=== PATIENT | female | born 1945 | race Caucasian/White ===

== ENCOUNTER 2017-02-17 09:53 | Emergency (ER) | payer OTHER ==
[~2017-02-17] VITALS: Ht 157.5 cm; Wt 72.1 kg
[~2017-02-17 09:53] MED LIST: ACET-1256 PO; ALBU1AER9 INH; ASPCH81X PO; ATOR10TA82 PO; CHOL2000 PO; GLIP-172 PO; LISI-461 PO; LORA-741 PO; METO-217 PO; PRLSR20 PO; SPIR25TA89 PO
[2017-02-17 10:01] VITALS: TEMP 36.4; Ht 157.5 cm; Wt 72.1 kg
[2017-02-17 10:08] VITALS: O2SAT 95
[2017-02-17] MEDS ORDERED: ONDANSETRON INJ 2 MG/ML 2 ML VIAL ONE (10:26)
[2017-02-17 10:45] LABS: BASO % 0.4 %; BASO ABS # 0.03 K/uL (0-0.2); COMPLETE YES; EOS % 0.8 %; HEMATOCRIT 41.1 % (37-47); IG% 0.2 %; LYMPH % 26.4 %; MEAN CELL VOLUME 102.2 fL (80-100); MEAN CORPUSCULAR HEMOGLOBIN 34.6 pg (25-34); MEAN CORPUSCULAR HGB CONC 33.8 g/dl (32-36); MEAN PLATELET VOLUME 11.6 fL (7.4-10.4); MONO % 9.6 %; NEUT % 62.6 %; PLATELET COUNT 228 K/uL (130-400); RED BLOOD COUNT 4.02 M/uL (4.2-5.4); WHITE BLOOD COUNT 8.34 K/uL (4.8-10.8)
[2017-02-17 11:02] LABS: BUN/CREATININE RATIO 14.7 (10-20); CALCIUM 9.5 mg/dl (8.5-10.1); CREATININE 1.6 mg/dl (0.60-1.20); POTASSIUM 4.2 mmol/L (3.5-5.1)
[2017-02-17 11:21] LABS: ALB/GLOB RATIO 1.1 (0.9-2)
--- NOTE | 2017-02-17 11:25 | DIAGNOSTIC IMAGING REPORT ---
CHEST ONE VIEW PORTABLE HISTORY: dizziness N/V COMPARISON: Chest 03/30/2016. FINDINGS: The lungs are clear. Cardiac silhouette is normal in size. No pleural effusions. No pneumothorax. IMPRESSION: No acute process. Electronically signed by: Alex Rouse M.D. 02/17/2017 11:23 AM Dictated Date/Time: 02/17/2017 11:19 AM
[2017-02-17] MEDS ORDERED: GLIP2.5T11 PO (11:48)
[2017-02-17] MEDS ORDERED: VNTHFA/IN INH (11:48)
[2017-02-17] MEDS ORDERED: LISI-729 PO (11:48)
[2017-02-17 11:50] LABS: URINE APPEARANCE CLEAR (CLEAR); URINE BILIRUBIN NEG (NEG); URINE COLOR YELLOW; URINE NITRITE NEG (NEG); URINE SPECIFIC GRAVITY 1.017 (1.000-1.030); UROBILINOGEN NEG (NEG); ZZUR CULT IF INDIC CLEAN CATCH NO
[2017-02-17 11:53] LABS: MANUAL MICROSCOPIC REQUIRED? NO; REVIEW REQ? NO
--- NOTE | 2017-02-17 13:03 | EMERGENCY ROOM VISIT NOTE ---
ED Visit Note First contact with patient: 10:24 I saw this patient in conjunction with Abram Maria PA-C. I agree with his decision-making and treatment plan.
[2017-02-17] MEDS ORDERED: MECLIZINE HCL 25 MG TAB PO STA (14:00)
--- NOTE | 2017-02-17 14:22 | DIAGNOSTIC IMAGING REPORT ---
MRI OF THE BRAIN WITHOUT IV CONTRAST CLINICAL HISTORY: Dizziness. COMPARISON STUDY: CT of the brain dated 06/06/2011. MRI of the brain dated 04/18/2008. TECHNIQUE: MRI of the brain was performed utilizing various T1 and T2-weighted sequences in the axial, sagittal, and coronal planes. IV contrast was not administered for this examination. FINDINGS: Brain parenchyma: There are age-related involutional changes noting advanced confluent subcortical and periventricular microangiopathic disease. There is no hemorrhage or mass effect. There is no restricted diffusion to suggest acute ischemia. Morgan-white matter differentiation is preserved. No extra-axial fluid collection is seen. The cerebellar tonsils are normal in configuration. Ventricles, sulci, and cisterns: Prominent secondary to involutional change. Pituitary and sella: Unremarkable. Intracranial vasculature: Normal flow voids are maintained at the skull base. Orbits: The bony orbits are grossly intact. Orbital contents are normal in appearance. Sinuses and mastoids: Clear. Calvarium: Unremarkable. Cervical cord: Partially visualized cervical spinal cord is normal in morphology and signal intensity. IMPRESSION: 1. No acute intracranial abnormality. 2. Advanced chronic white matter disease as above. Electronically signed by: Jaspreet Long M.D. 02/17/2017 2:21 PM Dictated Date/Time: 02/17/2017 2:18 PM
[2017-02-17] MEDS ORDERED: MECL1TAB42 PO (15:23)
[2017-02-17] MEDS ORDERED: ONDA4TAB46 PO (15:23)
[2017-02-17 15:37] VITALS: BP 144/67; PULSE 56; O2SAT 96
--- NOTE | 2017-02-18 21:33 | EMERGENCY ROOM VISIT NOTE ---
ED Visit Note First contact with patient: 10:24 Chief Complaint: Dizziness. History of Present Illness: Ms. Gabriel is a 71-year-old white female who is brought into the ED via ambulance complaining of dizziness, nausea and vomiting. She is been feeling well over the last few days. She reports after waking from sleep approximately 3 hours ago she sat up and started experiencing acute onset of dizziness; sensations that she was spinning in a room. Approximately half an hour after the dizziness started she became nauseated and had 2 episodes of vomiting. EMS was activated and she was brought to the ED for further evaluation. Currently she still is reporting that she is having dizzy and his nausea. Her dizziness worsens with movement of her head primarily rotational movements. And her nausea worsens with worsening of her dizziness. She has not identified any alleviating factors related to the symptoms. She has not taken medications for these symptoms prior to arrival at the hospital. She denies any previous similar episodes of dizziness and nausea/vomiting. She denies recent head trauma, fevers, chills, sweats, skin eruptions, skin color changes, headaches, visual changes, hearing changes, difficulty speaking, difficulty swallowing, difficulty ambulating/coordinating body movements, upper respiratory tract symptoms, cough, wheezing, shortness of breath, chest pain, palpitations, abdominal pain, back/flank pain, urinary symptoms, hematuria, extremity weakness/numbness/tingling. Review of Systems: As noted above in history of present illness. All body systems were reviewed and found to be negative as noted above. Past Medical History: (1) Atrial fibrillation (2) Diabetes (3) HTN (hypertension) Surgical Problems: (1) History of cholecystectomy Current Medications: Aldactone, Prilosec, Lipitor, Toprol, vitamin D3, aspirin, Ativan, Tylenol, Zestril, glipizide, albuterol. Allergies to Medications: Codeine. Social History: Patient is currently retired; she feels safe in her home environment; she denies tobacco and alcohol use. Physical Examination: Vital Signs: Date Time Temp Pulse Resp B/P Pulse Ox O2 Delivery O2 Flow Rate FiO2 02/17/17 15:37 56 14 144/67 96 02/17/17 15:10 60 24 161/78 97 02/17/17 14:54 52 02/17/17 12:06 51 16 158/68 02/17/17 11:16 52 16 156/71 97 02/17/17 10:45 168/75 02/17/17 10:38 32 22 95 02/17/17 10:31 157/ 02/17/17 10:23 47 18 95 02/17/17 10:15 167/67 02/17/17 10:09 162/82 02/17/17 10:08 95 Room Air 02/17/17 10:08 53 21 02/17/17 10:02 53 02/17/17 10:01 36.4 55 16 172/90 96 Room Air 02/17/17 09:58 172/90 GENERAL: 71-year-old female in mild distress due to symptoms, nontoxic-appearing , afebrile and hemodynamically stable. NEUROLOGICAL: Awake, alert and oriented to person, place and time. Answering questions appropriately and following commands. Normal gait. Good hand eye coordination. No focal motor or sensory deficits. Cranial nerves II through XII grossly intact. Good short-term and long-term recall. Able to spelling count backwards. Romberg test negative. Pronator drift test negative. SKIN: Warm, dry and pink. No soft tissue eruptions or trauma noted. HEENT: Atraumatic and normocephalic. Skull: No bony tenderness, swelling, ecchymosis or bony crepitus. No raccoon's eyes or richardson signs. No drainage from ears or the nostril; no hemotympanum. No facial bony tenderness, swelling or ecchymosis. PERRLA. EOMI without nystagmus. Sclera white and conjunctiva pink. Airway patent. No intraoral trauma. Speech is clear and normal. No lymphadenopathy. Trachea midline. No jugular venous distention. No carotid bruits. BACK: No tenderness over the bony cervical, thoracic and lumbar spine. No CVA tenderness. THORAX: Lungs sounds are clear to auscultation and equal bilaterally with symmetrical chest wall. No wheezing, rales or rhonchi. No crepitus, tenderness , subcutaneous air or deformities noted. HEART: Bradycardic rate and rhythm. No gallops, rubs or murmurs are appreciated. PMI is not displaced. No lifts, heaves or thrills. ABDOMEN: Flat, soft and nontender. Positive bowel sounds in all quadrants. No guarding, rigidity, pulsating mass or organomegaly. EXTREMITIES: Moves all extremities well on command and with purpose. All distal neurovascular statuses are intact and equal bilaterally. No calf tenderness or cords. ED Course: Patient is assessed as noted above. Laboratory Testing: Test 02/17/17 10:23 02/17/17 10:33 02/17/17 11:22 Range/Units White Blood Count 8.34 4.8-10.8 K/uL Red Blood Count 4.02 4.2-5.4 M/uL Hemoglobin 13.9 12.0-16.0 g/dL Hematocrit 41.1 37-47 % Mean Corpuscular Volume 102.2 80-100 fL Mean Corpuscular Hemoglobin 34.6 25-34 pg Mean Corpuscular Hemoglobin Concent 33.8 32-36 g/dl Platelet Count 228 130-400 K/uL Mean Platelet Volume 11.6 7.4-10.4 fL Neutrophils (%) (Auto) 62.6 % Lymphocytes (%) (Auto) 26.4 % Monocytes (%) (Auto) 9.6 % Eosinophils (%) (Auto) 0.8 % Basophils (%) (Auto) 0.4 % Neutrophils # (Auto) 5.22 1.4-6.5 K/uL Lymphocytes # (Auto) 2.20 1.2-3.4 K/uL Monocytes # (Auto) 0.80 0.11-0.59 K/uL Eosinophils # (Auto) 0.07 0-0.5 K/uL Basophils # (Auto) 0.03 0-0.2 K/uL RDW Standard Deviation 49.1 36.4-46.3 fL RDW Coefficient of Variation 13.0 11.5-14.5 % Immature Granulocyte % (Auto) 0.2 % Immature Granulocyte # (Auto) 0.02 0.00-0.02 K/uL Sodium Level 141 136-145 mmol/L Potassium Level 4.2 3.5-5.1 mmol/L Chloride Level 110 98-107 mmol/L Carbon Dioxide Level 24 21-32 mmol/L Anion Gap 7.0 3-11 mmol/L Blood Urea Nitrogen 24 7-18 mg/dl Creatinine 1.60 0.60-1.20 mg/dl Est Creatinine Clear Calc Drug Dose 30.0 ml/min Estimated GFR () 37.2 Estimated GFR (Non- 32.1 BUN/Creatinine Ratio 14.7 10-20 Random Glucose 150 70-99 mg/dl Calcium Level 9.5 8.5-10.1 mg/dl Total Bilirubin 0.9 0.2-1 mg/dl Aspartate Amino Transf (AST/SGOT) 16 15-37 U/L Alanine Aminotransferase (ALT/SGPT) 18 12-78 U/L Alkaline Phosphatase 133 45-117 U/L Total Protein 7.6 6.4-8.2 gm/dl Albumin 3.9 3.4-5.0 gm/dl Globulin 3.7 2.5-4.0 gm/dl Albumin/Globulin Ratio 1.1 0.9-2 Lipase 288 73-393 U/L Bedside Troponin I 0.000 0-0.045 ng/ml Urine Color YELLOW Urine Appearance CLEAR CLEAR Urine pH 5.0 4.5-7.5 Urine Specific Brooks 1.017 1.000-1.030 Urine Protein NEG NEG Urine Glucose (UA) NEG NEG Urine Ketones NEG NEG Urine Occult Blood NEG NEG Urine Nitrite NEG NEG Urine Bilirubin NEG NEG Urine Urobilinogen NEG NEG Urine Leukocyte Esterase NEG NEG EKG: Was read by myself and reviewed with Dr. Roldan; shows sinus bradycardia with an occasional unifocal PVC. Left axial deviation, the appearance of a previous septal infarct but no acute ST changes indicating ischemia, injury or infarction. This was compared to a previous from March 2016 in no acute changes were noted. Chest X-Ray: Was read by myself and the radiologist showing no acute infiltrates , effusions or pneumothorax. Normal heart silhouette and bony anatomy. Compared to previous from March 2016 in no acute changes were noted. An IV lock was initiated and patient received 4 mg of Zofran IV for nausea and 50 mg of Meclizine by mouth for dizziness. I did trial the patient on standing and walking and had return of dizziness. MRI of the Brain without Contrast: Was reviewed by myself and read by the radiologist and shows no acute intracranial abnormalities. Advanced chronic white matter disease was noted. Patient was retried on ambulation and was able to ambulate without return of dizziness and under her own control; she was also trialed with a walker. Patient's case was reviewed with Dr. Roldan; we agreed on diagnostic approach, treatment, disposition and plan. Patient and sister were educated about tonight's findings and instructed on her treatment plan; they verbalized understanding and agreement with this plan. Clinical Impression: Dizziness. Nausea/vomiting. Decision-Making: Initially my differential diagnosis I considered inner ear infection, intracranial bleed, electrolyte abnormality, arrhythmias and other causes. Disposition: Patient discharged home in stable condition accompanied by her sister; prior to departure she was reassessed and subjectively reported she was dizziness and nausea free. Plan: Patient was prescribed Meclizine and Zofran and instructed on it use. Patient was encouraged to stay well-hydrated. Patient was encouraged to use a walker for the next 3-4 days until she was completely stable and had no dizziness while walking. Patient was encouraged to call her family doctor and request follow-up care and treatment in 3-4 days. Patient was encouraged return the ED for worsening/uncontrolled dizziness, worsening nausea/vomiting or any new/concerning symptoms.
== END 2017-02-17 15:35 | disposition home or self-care (01) ==
LOC: EDBD 09:53 → C.EDC 09:56
DX: R42 Dizziness and giddiness (principal); R11.2 Nausea with vomiting, unspecified; I48.91 Unspecified atrial fibrillation; E11.9 Type 2 diabetes mellitus without complications; I10 Essential (primary) hypertension; Z90.49 Acquired absence of other specified parts of digestive tract; Z79.82 Long term (current) use of aspirin; Z79.899 Other long term (current) drug therapy

== ENCOUNTER 2019-06-11 16:55 | Observation (INO) ==
--- OUTSIDE RECORDS SUMMARY | 2019-06-11 16:58 | External Medical Summary | Continuity of Care Document ---
:1945 Author Name Edward Watkins Address Unavailable Unavailable , Care Team Providers Name Role Phone Chance Coulter M.D. Unavailable [email or web address] Kelvin MONDRAGON Unavailable Unavailable Unavailable Unavailable Unavailable Problems Head injury (959.01) (S09.90XA) Allergies and Adverse Reactions Allergy history not documented Medications Medications not documented Procedures Procedures not documented Immunizations Immunizations not documented Plan of Treatment Planned Observations Planned Goals not documented Results No Known Results Results not documented
[2019-06-11] MEDS ORDERED: ONDANSETRON INJ 2 MG/ML 2 ML VIAL IV STA ×2 (17:14→18:24)
--- NOTE | 2019-06-11 17:14 | Emergency Department Note ---
Entered by Reyna Craig acting as a scribe for Raul Peres MD History of Present Illness General Chief complaint: Illness Time Seen by Provider: 06/11/19 16:56 Source: patient and EMS History of Present Illness Provider complaint: generalized weakness Onset (ago): hour(s) (6.5) Pain Consistency: + other (episode) Quality: + other (generalized weakness) Associated symptoms: + denies other symptoms (black or bloody stool, dysuria, hematuria, back pain), + cough, + nausea/vomiting (vomited 3 times total) and + other (dizzy); no chest pain, no fever/chills and no shortness of breath Treatments prior to arrival: none The patient is a 73 year old female who presents to the ED with complaints of generalized weakness that began 6.5 hours ago. Per EMS, the patient has been nauseas and vomiting since 1030 today. The patient states that she feels dizzy and has vomited 3 times total. The patient notes that she is diabetic but she has been keeping her sugar levels under control. The patient states that she also has also had a cough recently. The patient denies shortness of breath, black or bloody stool, fever, dysuria, hematuria, back pain and chest pain. The patient denies receiving treatment prior to arrival. Home Medications Home Medications Medication Instructions Recorded Confirmed Type Vitamin D3 2,000 unit PO DAILY 06/11/19 06/11/19 History acetaminophen [Tylenol] 325 mg PO Q6H PRN 06/11/19 06/11/19 History albuterol sulfate 2 puff INHALATION Q6H PRN 06/11/19 06/11/19 History allopurinol 100 mg PO QAM 06/11/19 06/11/19 History aspirin 81 mg PO QAM 06/11/19 06/11/19 History atorvastatin 10 mg PO QPM 06/11/19 06/11/19 History glipizide 2.5 mg PO DAILYBB 06/11/19 06/11/19 History lisinopril 5 mg PO QAM 06/11/19 06/11/19 History lorazepam 0.5 mg PO TID PRN 06/11/19 06/11/19 History metoprolol succinate 50 mg PO QAM 06/11/19 06/11/19 History omeprazole 20 mg PO QAM 06/11/19 06/11/19 History spironolactone 25 mg PO QAM 06/11/19 06/11/19 History Allergies Allergy/AdvReac Type Severity Reaction Status Date / Time codeine Allergy Intermediate "UNSURE IF Verified 06/11/19 19:16 STILL ALLERGIC" Past Med/Surg History Medical History HTN (hypertension) (Chronic) Diabetes (Chronic) Bronchitis (Acute) Pleurisy (Acute) Abdominal pain (Acute) Bronchitis (Acute) Pain, dental (Acute) Atrial fibrillation (Chronic) Hyperkalemia (Acute) Renal insufficiency (Acute) Surgical History History of cholecystectomy (Resolved) Social History Preferred Language: Iraqi Communication Ability: Effective 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 and A total of 10 systems reviewed and were otherwise negative Physical Exam Vital Signs Vital Signs - 24 hr 06/11/19 17:06 06/11/19 18:10 06/11/19 18:39 Temperature 36.4 C L Temperature Source Oral Sepsis Recent Fever Within 48 Hours No Sepsis Action Taken by Nursing No Action Required Pulse Rate 80 Pulse Rate [Apical] 72 Respiratory Rate 17 20 Respiratory Effort / Characteristics Non-Labored Spontaneous Respiratory Depth Normal Respiratory Pattern Regular Blood Pressure [Left Arm] 162/74 H Blood Pressure Mean [Left Arm] 103 Blood Pressure Position [Left Arm] Lying Pulse Oximetry 97 96 97 Oxygen Delivery Method Room Air Room Air Room Air 06/11/19 20:37 Temperature Temperature Source Sepsis Recent Fever Within 48 Hours Sepsis Action Taken by Nursing Pulse Rate Pulse Rate [Apical] 71 Respiratory Rate 17 Respiratory Effort / Characteristics Non-Labored Spontaneous Respiratory Depth Normal Respiratory Pattern Regular Blood Pressure [Left Arm] 159/68 H Blood Pressure Mean [Left Arm] 98 Blood Pressure Position [Left Arm] Lying Pulse Oximetry 96 Oxygen Delivery Method Room Air General: Non-ill appearing older female in no acute distress. Hard of hearing. HEENT: Normal cephalic atraumatic. Pupils are equal round and reactive to light. Extraocular movements are intact. Oropharynx is pink with moist mucous membranes. No swelling of the mouth lips or tongue. Neck: Supple with a midline trachea. No meningeal signs or stiffness, no JVD or bruits. No Stridor. Chest: Clear to auscultation bilaterally. No wheezes or rhonchi. No increased work of breathing. Heart: regular rate and rhythm. Abdomen: Soft nontender, nondistended without rebound guarding or rigidity. Extremities: No cyanosis clubbing or edema. No calf tenderness or asymmetry Spine/Back. Non tender to palpation. No CVA tenderness Skin: Good turgor without rashes. Neurologic exam: Cranial nerves two through 12 are intact. Motor and sensation are intact and symmetrical throughout. Course 1656: Past medical records reviewed. The patient was evaluated in room A10. A co mplete history and physical exam was performed. 1825: I reevaluated the patient and she is feeling the better. The patient states that she got up and started vomiting bilious looking material. I ordered CT, fluids and Zofran. 1999: I [facility] the [facility] He will evaluate the patient for further management. Consultations Consultation #1: I discussed the [facility] He will evaluate the patient for further management. Time: 20:00 Administered Medications Sodium Chloride (Nss 1000ml) 1,000 mls @ 80 mls/hr IV .[id number] ALYSSA Stop: 07/11/19 22:24 Last Admin: 06/11/19 22:47 Dose: 80 mls/hr Documented by: [id number] Discontinued Medications Sodium Chloride (Nss) 500 mls @ 999 mls/hr IV .Q31M ALYSSA Stop: 06/11/19 17:45 Last Infusion: 06/11/19 18:00 Dose: 0 mls/hr Documented by: [id number] Admin: 06/11/19 17:24 Dose: 999 mls/hr Documented by: [id number] Sodium Chloride (Nss 1000ml) 500 mls @ 999 mls/hr IV .Q31M ONE Stop: 06/11/19 18:54 Last Infusion: 06/11/19 19:54 Dose: 0 mls/hr Documented by: [id number] Admin: 06/11/19 19:21 Dose: 999 mls/hr Documented by: [id number] Ondansetron HCl (Zofran) 4 mg IV NOW STA Stop: 06/11/19 17:15 Last Admin: 06/11/19 17:31 Dose: 4 mg Documented by: [id number] Ondansetron HCl (Zofran) 4 mg IV NOW STA Stop: 06/11/19 18:25 Last Admin: 06/11/19 18:32 Dose: 4 mg Documented by: [id number] Medical Decision Making Differential Diagnosis Differentials include dehydration, cardiac disease, infection, neurological disease, abdominal process, UTI, metabolic and electrolyte abnormality. Medical Records Attestation: I reviewed the patient's medical records. Home Medications Current Medication List: was personally reviewed by me Laboratory Data Attestation: I reviewed the patient's lab results. Result diagrams: 06/11/19 17:21 06/11/19 17:21 Lab Results 06/11/19 06/11/19 06/11/19 Range/Units 17:21 17:21 18:24 WBC 9.65 (4.8-10.8) K/uL RBC 3.58 L (4.2-5.4) M/uL Hgb 12.9 (12.0-16.0) g/dL Hct 37.6 (37-47) % MCV 105.0 H (80-100) fL MCH 36.0 H (25-34) pg MCHC 34.3 (32-36) g/dL RDW Std Deviation 53.1 H (36.4-46.3) fL RDW Coeff of Etta 14.0 (11.5-14.5) % Plt Count 231 (130-400) K/uL MPV 11.6 H (7.4-10.4) fL Immature Gran % (Auto) 0.3 % Neut % (Auto) 68.7 % Lymph % (Auto) 22.6 % Peach % (Auto) 7.6 % Eos % (Auto) 0.5 % Baso % (Auto) 0.3 % Immature Gran # (Auto) 0.03 H (0.00-0.02) K/uL Neut # (Auto) 6.63 H (1.4-6.5) K/uL Lymph # (Auto) 2.18 (1.2-3.4) K/uL Peach # (Auto) 0.73 H (0.11-0.59) K/uL Eos # (Auto) 0.05 (0-0.5) K/uL Baso # (Auto) 0.03 (0-0.2) K/uL Sodium 140 (136-145) mmol/L Potassium 4.3 (3.5-5.1) mmol/L Chloride 109 H (98-107) mmol/L Carbon Dioxide 20 L (21-32) mmol/L Anion Gap 11.0 (3-11) BUN 25 H (7-18) mg/dl Creatinine 1.61 H (0.6-1.2) mg/dl Est Cr Clr Drug Dosing 31.7 ml/min Est GFR ( Amer) 36.4 Est GFR (Non-Af Amer) 31.4 BUN/Creatinine Ratio 15.7 (10-20) Glucose 131 H (70-99) mg/dl Calcium 9.3 (8.5-10.1) mg/dl Total Bilirubin 0.9 (0.2-1) mg/dl AST 15 (15-37) U/L ALT 16 (12-78) U/L Alkaline Phosphatase 158 H (45-117) U/L Troponin I < 0.015 (0-0.045) ng/ml Total Protein 7.6 (6.4-8.2) gm/dl Albumin 4.0 (3.4-5.0) gm/dl Globulin 3.6 (2.5-4.0) gm/dl Albumin/Globulin Ratio 1.1 (0.9-2) Lipase 256 (73-393) U/L Specimen Hemolysis Urine Color Yellow Urine Appearance Clear (Clear) Urine pH 5.0 (4.5-7.5) Ur Specific [place] 1.015 (1.000-1.030) Urine Protein 1+ H (Negative) Urine Glucose (UA) Negative (Negative) Urine Ketones Trace H (Negative) Urine Blood Negative (Negative) Urine Nitrite Negative (Negative) Urine Bilirubin Negative (Negative) Urine Urobilinogen Negative (Negative) Ur Leukocyte Esterase Negative (Negative) Urine WBC (Auto) 1-5 (0-5) /hpf Urine RBC (Auto) 0-4 (0-4) /hpf U Hyaline Cast (Auto) 1-5 (0-5) /lpf U Epithel Cells (Auto) 10-20 H (0-5) /lpf Urine Bacteria (Auto) Negative (Negative) Imaging Data Radiologist's Impression: Radiology results as stated below per my review and the radiologist's interpretation: XR chest 1V portable CLINICAL HISTORY: Atypical chest pain COMPARISON STUDY: 02/17/2017 FINDINGS: The heart is at the upper limits of normal in size. There is no focal pulmonary consolidation. There are no pleural effusions. There is mild interstitial thickening, finding which may be accentuated due to a suboptimal inspiration. An element of mild pulmonary vascular congestion can't however not be excluded[ IMPRESSION: 1. No evidence of focal pulmonary consolidation 2. Slight interstitial thickening a finding which may be accentuated due to a suboptimal inspiration Electronically signed by: Parminder Hassan M.D. 06/11/2019 5:[address] SCAN OF THE ABDOMEN AND PELVIS WITHOUT CONTRAST CLINICAL HISTORY: Abdominal pain and vomiting COMPARISON STUDY: 03/23/2015 TECHNIQUE: CT scan of the abdomen and pelvis was performed from the lung bases to the proximal femurs. Images are reviewed in the axial, sagittal, and coronal planes. IV contrast was not administered for this examination. A dose lowering technique was utilized adhering to the principles of ALARA. CT DOSE: 674.10 mGy.cm FINDINGS: Lower chest: There are basilar atelectatic changes. Liver: The unenhanced liver is normal in size, contour, and attenuation. There is no intrahepatic biliary ductal dilatation. Gallbladder: Surgically absent Spleen: Normal in size and attenuation. Pancreas: Unremarkable. Adrenal glands: Unremarkable. Kidneys: There are multiple bilateral low-density renal masses most consistent with cysts. The largest in the left measures 38 mm. The largest the right measures 24 mm. No renal calculi are visualized. There is no hydronephrosis. There are no ureteral or bladder calculi identified. Bowel: There are no transition zones indicate bowel obstruction. The appendix appears normal. There is extensive sigmoid diverticulosis. No acute peridiverticular inflammatory changes are visualized. Peritoneum: There is no intraperitoneal free air or abdominal ascites. Vasculature: The abdominal aorta is normal in course and caliber. Adenopathy: None. Pelvic viscera: The bladder, and pelvic viscera are unremarkable. Skeletal structures: There is a right iliac bone sclerotic lesion similar to the prior study bone island versus chondral lesion.. IMPRESSION: 1. No evidence of bowel obstruction. No evidence of free air 2. Normal appendix. 3. Surgically absent gallbladder. 4. Extensive sigmoid diverticulosis. No evidence of acute diverticulitis. Electronically signed by: Parminder Hassan M.D. 06/11/2019 7:03 PM ECG Data Attestation: I personally reviewed and interpreted this ECG as follows: Indication: vomiting and weakness Rate (beats per minute): 71 Rhythm: normal sinus Findings: + other (nonspecific intraventricular conduction delay ) and + left axis deviation Comparison ECG Date: from (02/09/2017) Change: no significant change Blood Pressure Blood Pressure Findings: Elevated blood pressure Blood Pressure Disposition: further management by hospitalist [facility] Narrative This patient comes in as described above. He was placed in room A10. she has had some nausea and dizziness. she says she feels better now except for being nauseated. She had abdominal pain at one point but denies any now. her abdomen is completely benign when I push on it. No chest pain or shortness of breath. She has a normal neurologic exam. She has no respiratory distress. IV access established and she was hydrated with IV normal saline. She was given Zofran 4 mg IV for nausea. She was reassessed frequently. EKG does not suggest acute c oronary syndrome or arrhythmia. She has no significant electrolyte or metabolic abnormalities. She has nothing to suggest infection. She was feeling better and stood up and had nausea and vomiting again with green emesis. I did a CAT scan it was unremarkable of her abdomen. She was given additional IV Zofran and fluids and felt better and again when she stood up she vomited again. Looking at her history, she has done this before. at this point she has a normal neurologic exam and I do not think is a central neurologic process. She has some baseline renal insufficiency. I do think that she needs to be admitted/observe for further hydration and evaluation. I have consult Dr. Bear to to see her for these measures. Impression & Plan Nausea, Dizziness, Dehydration, Vomiting Discharge Plan Visit Data *Final* Discharge Date/Time: 06/11/19 21:45 Chief Complaint: Illness ED Provider: Raul Peres Discharge Problem: Nausea, Dizziness, Dehydration, Vomiting Patient Disposition: Admitted As Inpatient Discharge Instructions Interventions: ED Discharge Assessment Last Done: 06/11/19 21:45 The scribe's documentation has been prepared under my direction and personally reviewed by me in its entirety. I confirm that the note above accurately reflects all work, treatment, procedures, and medical decision making performed by me.
[2019-06-11] MEDS ORDERED: SODIUM CHLORIDE 0.9% 500 ML IV SCH (17:15)
[2019-06-11 17:30] LABS: Basophils # (auto) 0.03 K/uL (0-0.2); Basophils % (auto) 0.3 %; Eosinophils # (auto) 0.05 K/uL (0-0.5); Eosinophils % (auto) 0.5 %; Hematocrit (blood only) 37.6 % (37-47); Hemoglobin 12.9 g/dL (12.0-16.0); Immature Granulocytes # (auto) 0.03 K/uL (0.00-0.02); Immature Granulocytes % (auto) 0.3 %; Lymphocytes # (auto) 2.18 K/uL (1.2-3.4); Lymphocytes % (auto) 22.6 %; Mean Corpuscular Hgb Conc 34.3 g/dL (32-36); Mean Platelet Volume 11.6 fL (7.4-10.4); Monocytes # (auto) 0.73 K/uL (0.11-0.59); Monocytes % (auto) 7.6 %; Neutrophils # (auto) 6.63 K/uL (1.4-6.5); Neutrophils % (auto) 68.7 %; Platelet Count 231 K/uL (130-400); RDW Standard Deviation 53.1 fL (36.4-46.3); Red Blood Count 3.58 M/uL (4.2-5.4); White Blood Count 9.65 K/uL (4.8-10.8)
--- NOTE | 2019-06-11 17:32 | XRay Report ---
XR chest 1V portable CLINICAL HISTORY: Atypical chest pain COMPARISON STUDY: 02/17/2017 FINDINGS: The heart is at the upper limits of normal in size. There is no focal pulmonary consolidati on. There are no pleural effusions. There is mild interstitial thickening, finding which may be accen tuated due to a suboptimal inspiration. An element of mild pulmonary vascular congestion can't howeve r not be excluded[ IMPRESSION: 1. No evidence of focal pulmonary consolidation 2. Slight interstitial thickening a finding which may be accentuated due to a suboptimal inspiration Electronically signed by: Parminder Hassan M.D. 06/11/2019 5:30 PM
[2019-06-11 18:00] LABS: Alanine Aminotransferase 16 U/L (12-78); Albumin Globulin Ratio 1.1 (0.9-2); Alkaline Phosphatase 158 U/L (45-117); Aspartate Aminotransferase 15 U/L (15-37); BUN Creatinine Ratio 15.7 (10-20); Bilirubin,Total 0.9 mg/dl (0.2-1); Blood Urea Nitrogen 25 mg/dl (7-18); Calcium 9.3 mg/dl (8.5-10.1); Carbon Dioxide 20 mmol/L (21-32); Chloride 109 mmol/L (98-107); Creatinine Clr Calc Pharmacy 31.7 ml/min; Est GFR (African American) 36.4; Est GFR (Non-African American) 31.4; Globulin 3.6 gm/dl (2.5-4.0); Glucose 131 mg/dl (70-99); Lipase 256 U/L (73-393); Potassium 4.3 mmol/L (3.5-5.1); Sodium 140 mmol/L (136-145); Total Protein 7.6 gm/dl (6.4-8.2); Troponin I < 0.015 ng/ml (0-0.045)
[2019-06-11] MEDS ORDERED: SODIUM CHLORIDE 0.9% 1000ML 500 ML IV ONE (18:24)
[2019-06-11 18:39] LABS: Appearance Urine Clear (Clear); Bacteria Urine Automated Negative (Negative); Bilirubin Urine Negative (Negative); Blood Urine Negative (Negative); Color Urine Yellow; Glucose Urine UA Negative (Negative); Ketones Urine Trace (Negative); Leukocyte Esterase Urine Negative (Negative); Nitrite Urine Negative (Negative); Protein Urine 1+ (Negative); RBC Urine Automated 0-4 /hpf (0-4); Specific Gravity Urine 1.015 (1.000-1.030); Urobilinogen Urine Negative (Negative)
--- NOTE | 2019-06-11 19:04 | CT Scan Report ---
CT SCAN OF THE ABDOMEN AND PELVIS WITHOUT CONTRAST CLINICAL HISTORY: Abdominal pain and vomiting COMPARISON STUDY: 03/23/2015 TECHNIQUE: CT scan of the abdomen and pelvis was performed from the lung bases to the proximal femurs . Images are reviewed in the axial, sagittal, and coronal planes. IV contrast was not administered fo r this examination. A dose lowering technique was utilized adhering to the principles of ALARA. CT DOSE: 674.10 mGy.cm FINDINGS: Lower chest: There are basilar atelectatic changes. Liver: The unenhanced liver is normal in size, contour, and attenuation. There is no intrahepatic gaby iary ductal dilatation. Gallbladder: Surgically absent Spleen: Normal in size and attenuation. Pancreas: Unremarkable. Adrenal glands: Unremarkable. Kidneys: There are multiple bilateral low-density renal masses most consistent with cysts. The larges t in the left measures 38 mm. The largest the right measures 24 mm. No renal calculi are visualized. There is no hydronephrosis. There are no ureteral or bladder calculi identified. Bowel: There are no transition zones indicate bowel obstruction. The appendix appears normal. There i s extensive sigmoid diverticulosis. No acute peridiverticular inflammatory changes are visualized. Peritoneum: There is no intraperitoneal free air or abdominal ascites. Vasculature: The abdominal aorta is normal in course and caliber. Adenopathy: None. Pelvic viscera: The bladder, and pelvic viscera are unremarkable. Skeletal structures: There is a right iliac bone sclerotic lesion similar to the prior study bone isl and versus chondral lesion.. IMPRESSION: 1. No evidence of bowel obstruction. No evidence of free air 2. Normal appendix. 3. Surgically absent gallbladder. 4. Extensive sigmoid diverticulosis. No evidence of acute diverticulitis. Electronically signed by: Parminder Hassan M.D. 06/11/2019 7:03 PM
[2019-06-11] MEDS ORDERED: ALBUTEROL HFA 8 GM INHALER INH PRN (22:25)
[2019-06-11] MEDS ORDERED: ACETAMINOPHEN 325 MG TAB PO PRN (22:25)
[2019-06-11] MEDS ORDERED: ONDANSETRON INJ 2 MG/ML 2 ML VIAL IV PRN (22:25)
[2019-06-11] MEDS: SODIUM CHLORIDE 0.9% 1000ML 1,000 ML IV SCH (22:47)
--- NOTE | 2019-06-11 23:43 | History and Physical Report ---
DATE OF ADMISSION: 06/11/2019 CHIEF COMPLAINT: Nausea, vomiting, diarrhea and dizziness. HISTORY OF PRESENT ILLNESS: This is a 73-year-old female with past medical history significant type 2 diabetes, hyperlipidemia, gout, hypertension, GERD, chronic kidney disease stage III, hearing loss, anxiety, history of chronic systolic CHF, presents with nausea, vomiting, diarrhea and dizziness starting today. The patient lives with her . She takes care of her . She can cook the food, she can drive the car. She is very hard of hearing. She has hearing aids. Her sister brought her to the hospital. In ER labs shows no leukocytosis. Creatinine function is at baseline. UA was negative. CT abdomen and pelvis was also unremarkable, but the patient whenever she tries to get up and walk, she felt dizzy and she vomited . It happened couple of times. So we are called for observing the patient in the hospital.Hemodynamically stable. Denies any headaches. She says she feels dizzy when she is standing up and having vomiting. Denies any blurred visions. She has some runny nose. Denies any earaches. Has no sore throat. She coughed up some phlegm, but thinks it is from postnasal drip, but there is no cough today. No difficulties swallowing. She did not eat whole day today. No chest pain, no shortness of breath, no fevers. Feeling cold. She vomited several times today. No blood in the vomitus. Denies any abdominal pain, but has several episodes of diarrhea also today, watery. Denies any recent antibiotics use. Denies any blood in the stools. No burning micturition, no swelling in the legs, no rash. ALLERGIES: CODEINE. PAST MEDICAL HISTORY: As mentioned above. PAST SURGICAL HISTORY: Left knee arthroscopy, carpal tunnel surgery, colonoscopy, D&C, excision of the benign lesion of the lump on the back, ventral hernia repair, lumpectomy, cholecystectomy. MEDICATIONS: The patient is currently on Ativan 0.5 mg p.o. t.i.d. p.r.n. for anxiety, glipizide 2.5 mg p.o. a.m., lisinopril 5 mg p.o. daily, metoprolol XL 50 mg p.o. daily, allopurinol 100 mg p.o. daily, omeprazole 20 mg p.o. daily, spironolactone 25 mg p.o. daily, Lipitor 20 mg p.o. daily, albuterol 2 puffs 4 times a day, Tylenol 500 mg p.r.n., vitamin D 2000 units p.o. daily, aspirin 81 mg p.o. daily. FAMILY HISTORY: Significant for, father has arthritis. Mother has arthritis, uterus cancer, diabetes. Sister has breast cancer, diabetes. Son has CAD in his 30's. Sister has valvular heart disease. SOCIAL HISTORY: and lives with her . No smoking, no alcohol, no drug use. REVIEW OF SYMPTOMS: As per HPI. Rest of the systems negative. PHYSICAL EXAMINATION: GENERAL: The patient is old and frail, not in acute distress. VITAL SIGNS: Temperature 36.4, pulse 71, respiratory rate 17, blood pressure 115/68, oxygen 96% on room air. HEENT: No pallor, no icterus. Pupils equal, round, reactive to light. NECK: No JVD, no neck masses, no carotid bruits. CARDIOVASCULAR: S1, S2 heard, regular rate and rhythm. No murmur, no gallop. RESPIRATORY SYSTEM: Normal AP diameter. No thyromegaly. No wheezing, no crackles. ABDOMEN: Soft, bowel sounds present, nontender. No distention, no guarding, no rigidity. CENTRAL NERVOUS SYSTEM: Alert and awake, not in acute distress. Cranial nerves II-XII grossly nonfocal. EXTREMITIES: No edema, no erythema. LABORATORY DATA: WBC 9.6, hemoglobin 12.9, hematocrit 37.6, platelets 231. Sodium 140, potassium 4.3, chloride 109, bicarbonate 20, BUN 25, creatinine 1.6, serum glucose 131, calcium 9.3, total bilirubin 0.9, AST 15, ALT 16, alkaline phosphatase is 150. Troponin I less than 0.015. Urinalysis negative. Chest x-ray, no acute findings seen. EKG, sinus rhythm with frequent PVCs with rate of 71, no acute ST changes seen. CT of the abdomen and pelvis, no evidence of bowel obstruction, no evidence of free air, normal appendix, surgically absent gallbladder, extensive sigmoid diverticulosis, no evidence of acute diverticulitis. ASSESSMENT AND PLAN: This is a 73-year-old female who presents with nausea, vomiting, diarrhea and dizziness. 1. Nausea, vomiting and diarrhea, most likely gastroenteritis, possibly viral. No recent antibiotic use. We will check the stool for cultures, stool for C. diff, will be on liquid diet, IV fluids and observe on the medical floor. Monitor the labs. 2. Dizziness, possibly most likely from the dehydration, will check for orthostatic hypotension, currently getting fluids. If continues to have dizziness, then will consider CT of the head and echo. 3. Chronic systolic congestive heart failure, ejection fraction of around 45-50% on echo done in 2012, on Aldactone, which we will hold, getting gentle fluids and will watch for any volume overload. 4. History of diabetes. Hold glipizide. Currently clear liquid diet. Continue with the sliding scale. Follow HbA1c levels. Follow blood sugars. 5. History of hypertension, Toprol-XL and lisinopril with holding parameters. 6. gastroesophageal reflux disease, continue Prilosec. 7. Hyperlipidemia. Continue statin. 8. Deep venous thrombosis prophylaxis, sequential compression devices. DISPOSITION: Closely monitor on the medical floor. Level 1 full code as per discussion with sister. PT and OT prior to discharge. Social Service to help with discharge planning. MTDD
[2019-06-11] MEDS: ATORVASTATIN 10 MG TAB PO SCH (23:48)
[2019-06-11] MEDS: INSULIN ASPART 100 UNITS/ML 3 ML PEN SC SCH (23:51)
[2019-06-11] MEDS: LORazepam 0.5 MG TAB PO PRN (23:54)
[2019-06-12 05:22] LABS: Basophils # (auto) 0.01 K/uL (0-0.2); Basophils % (auto) 0.1 %; Eosinophils # (auto) 0.03 K/uL (0-0.5); Eosinophils % (auto) 0.4 %; Hematocrit (blood only) 34.5 % (37-47); Hemoglobin 11.7 g/dL (12.0-16.0); Immature Granulocytes # (auto) 0.02 K/uL (0.00-0.02); Immature Granulocytes % (auto) 0.3 %; Lymphocytes # (auto) 2.41 K/uL (1.2-3.4); Lymphocytes % (auto) 32.5 %; Mean Corpuscular Hemoglobin 35.5 pg (25-34); Mean Corpuscular Hgb Conc 33.9 g/dL (32-36); Mean Corpuscular Volume 104.5 fL (80-100); Mean Platelet Volume 11.1 fL (7.4-10.4); Monocytes # (auto) 0.77 K/uL (0.11-0.59); Monocytes % (auto) 10.4 %; Neutrophils # (auto) 4.17 K/uL (1.4-6.5); Neutrophils % (auto) 56.3 %; Platelet Count 200 K/uL (130-400); RDW Coefficient of Variation 13.9 % (11.5-14.5); RDW Standard Deviation 52.7 fL (36.4-46.3); White Blood Count 7.41 K/uL (4.8-10.8)
[2019-06-12 05:53] LABS: BUN Creatinine Ratio 15.3 (10-20); Calcium 8.1 mg/dl (8.5-10.1); Est GFR (Non-African American) 35.3; Magnesium 1.7 mg/dl (1.8-2.4); Potassium 3.9 mmol/L (3.5-5.1)
[2019-06-12 06:16] LABS: Estimated Average Glucose 126 mg/dl
[2019-06-12] MEDS: LORazepam 0.5 MG TAB PO PRN (08:25)
[2019-06-12] MEDS: INSULIN ASPART 100 UNITS/ML 3 ML PEN SC SCH ×4 (08:48→20:20)
[2019-06-12] MEDS ORDERED: ASPIRIN 81 MG ECTAB PO SCH (09:00)
[2019-06-12] MEDS ORDERED: PANTOprazole 40 MG TAB PO SCH (09:00)
[2019-06-12] MEDS ORDERED: ALLOPURINOL 100 MG TAB PO SCH (09:00)
[2019-06-12] MEDS ORDERED: LISINOPRIL 5 MG TAB PO SCH (09:00)
[2019-06-12] MEDS ORDERED: METOPROLOL SUCC 50MG EXT REL TAB PO SCH (09:00)
[2019-06-12] MEDS: SODIUM CHLORIDE 0.9% 1000ML 1,000 ML IV SCH (11:05)
--- NOTE | 2019-06-12 17:44 | Hospitalist Progress Note ---
Date of Service June 12, 2019 Assessment & Plan (1) Vomiting: Presented with nausea vomiting diarrhea, abdominal pain The abdomen pelvis showed no evidence of any acute pathology, no infection inflammation Had a normal white count, All GI symptoms has been resolved since admission, Not had any vomiting, no abdominal pain or nausea, no loose stool Possible viral gastroenteritis Diet advanced to low residue solid Tolerating well, stable to be discharged home today (2) Dehydration: Due to above, Given IV fluids, diet advanced to solid tolerating well She is asked to continue to drink plenty of fluids Stable to be discharged home today (3) Dizziness: Due to above, nausea vomiting diarrhea: Leading to GI GI loss and dehydration Symptom has completely resolved after IV hydration, No episode of nausea vomiting Has been walking on the hallway independently without any dizzy spells or lightheadedness, vitals remained stable Medically stable to be discharged home today CODE STATUS: Full code Disposition: Patient is independent in her ADLs Medically stable to be discharged home Update given to patient's sister present at bedside Subjective No further episode of nausea vomiting, no abdominal pain, no episode of diarrhea Patient feels absolutely fine has been walking on the hallway Willing to try for solid food Physical Exam Constitutional: WD/WN, vitals as above no acute distress Eyes: PERRL, conjunctivae normal, anicteric sclerae ENMT: external ear and nose normal, oropharynx normal Neck: trachea midline, no thyromegaly Respiratory: normal respiratory effort, lungs clear to auscultation Cardiovascular: RRR, no murmur, no edema Gastrointestinal (Abdomen): normal bowel sounds, soft, nontender, no hepatosplenomegaly Musculoskeletal: no cyanosis or clubbing, extremities motor strength 5/5 Skin: no rashes, warm and dry Neurologic: PERRL, EOMI, accommodation nl, no face palsy, no dysarthria Psychiatric: A+Ox3, euthymic affect Results & Data Vital Signs (Past 12 Hours) Vital Signs Temp Pulse Pulse Resp BP Pulse Ox 06/12/19 15:23 36.4 C L 56 L 17 134/52 L 95 06/12/19 08:04 36.7 C 48 L 18 135/54 L 95 (1) Vomiting Nausea presence: with nausea Vomiting Intractability: non-intractable Vomiting type: unspecified Qualified Code(s): R11.2 - Nausea with vomiting, unspecified
--- NOTE | 2019-06-12 19:45 | Discharge Summary ---
Date of Service June 12, 2019 Admission HPI Per Admitting Provider DICTATED BY: Kranthi Bear MD DATE OF ADMISSION: 06/11/2019 CHIEF COMPLAINT: Nausea, vomiting, diarrhea and dizziness. HISTORY OF PRESENT ILLNESS: This is a 73-year-old female with past medical history significant type 2 diabetes, hyperlipidemia, gout, hypertension, GERD, chronic kidney disease stage III, hearing loss, anxiety, history of chronic systolic CHF, presents with nausea, vomiting, diarrhea and dizziness starting today. The patient lives with her . She takes care of her . She can cook the food, she can drive the car. She is very hard of hearing. She has hearing aids. Her sister brought her to the hospital. In ER labs shows no leukocytosis. Creatinine function is at baseline. UA was negative. CT abdomen and pelvis was also unremarkable, but the patient whenever she tries to get up and walk, she felt dizzy and she vomited . It happened couple of times. So we are called for observing the patient in the hospital.Hemodynamically stable. Denies any headaches. She says she feels dizzy when she is standing up and having vomiting. Denies any blurred visions. She has some runny nose. Denies any earaches. Has no sore throat. She coughed up some phlegm, but thinks it is from postnasal drip, but there is no cough today. No difficulties swallowing. She did not eat whole day today. No chest pain, no shortness of breath, no fevers. Feeling cold. She vomited several times today. No blood in the vomitus. Denies any abdominal pain, but has several episodes of diarrhea also today, watery. Denies any recent antibiotics use. Denies any blood in the stools. No burning micturition, no swelling in the legs, no rash. Principal Diagnosis NAUSEA /VOMITING /DIARRHEA -RESOLVED , POSSIBLE VIRAL GASTROENTERITIS Discharge Exam Constitutional WD/WN, vitals as above no acute distress Eyes PERRL, conjunctivae normal, anicteric sclerae ENMT external ear and nose normal, oropharynx normal Neck trachea midline, no thyromegaly Respiratory normal respiratory effort, lungs clear to auscultation Cardiovascular RRR, no murmur, no edema Gastrointestinal (Abdomen) normal bowel sounds, soft, nontender, no hepatosplenomegaly Musculoskeletal no cyanosis or clubbing, extremities motor strength 5/5 Skin no rashes, warm and dry Neurologic PERRL, EOMI, accommodation nl, no face palsy, no dysarthria Psychiatric A+Ox3, euthymic affect Discharge Data Allergies Allergy/AdvReac Type Severity Reaction Status Date / Time codeine Allergy Intermediate "UNSURE IF Verified 06/11/19 19:16 STILL ALLERGIC" Consultations 06/11/19 20:00 ED Decision to Admit Stat 06/11/19 22:25 Consult Case Management - Discharge Planning Routine Ordered Studies 06/11/19 18:24 CT abd pelvis wo con Stat Hospital Course (1) Vomiting: Presented with nausea vomiting diarrhea, abdominal pain The abdomen pelvis showed no evidence of any acute pathology, no infection inflammation Had a normal white count, All GI symptoms has been resolved since admission, Not had any vomiting, no abdominal pain or nausea, no loose stool Possible viral gastroenteritis Diet advanced to low residue solid Tolerating well, stable to be discharged home today (2) Dehydration: Due to above, Given IV fluids, diet advanced to solid tolerating well She is asked to continue to drink plenty of fluids Stable to be discharged home today (3) Dizziness: Due to above, nausea vomiting diarrhea: Leading to GI GI loss and dehydration Symptom has completely resolved after IV hydration, No episode of nausea vomiting Has been walking on the hallway independently without any dizzy spells or lightheadedness, vitals remained stable Medically stable to be discharged home today CODE STATUS: Full code Disposition: Patient is independent in her ADLs Medically stable to be discharged home Update given to patient's sister present at bedside Total Time Total Time Spent Total Time Spent (In Minutes): Proximately 30 minutes Total Time Includes: Examination of the Patient, Discharge Planning and Medication Reconciliation Discharge Plan Discharge Items Patient Disposition: Home - Self-Care Reason For Visit: N/V,DIARRHEA,DIZZINESS Discharge Diagnosis: NAUSEA /VOMITING /DIARRHEA -RESOLVED , POSSIBLE VIRAL GASTROENTERITIS Discharge Goals: Decrease discomfort and Diagnostic testing Activity: Resume your previous activity Non-emergency contact: Primary Care Provider Call non-emergency contact if: you have any medication questions Follow-up/Referrals: Kasandra Antunez, [Primary Care Provider] - (HOSPITAL FOLLOW UP IN A WEEK ) Diet: Carb Consistent or DM2 and Low Fiber Diet Comment: LOW FIBER DIET FOR FEW DAYS /AVOID DAIRY FOR 2-3 DAYS Addtl Provider Instructions: HOSPITAL FOLLOW UP WITH DR ANTUNEZ IN A WEEK , OFFICE WILL CALL WITH APPOINTMENT DRINK PLENTY OF FLUIDS CAN TAKE OVER THE COUNTER PROBIOTICS FOR NEXT FEW DAYS TO PREVENT RECURRENCE OF DIARRHEA Prescriptions: Continued atorvastatin 10 mg tablet 10 mg PO QPM RF: 0 metoprolol succinate 50 mg tablet extended release 24 hr 50 mg PO QAM RF: 0 allopurinol 100 mg tablet 100 mg PO QAM RF: 0 aspirin 81 mg Tablet,Delayed Release (Dr/Ec) 81 mg PO QAM RF: 0 spironolactone 25 mg tablet 25 mg PO QAM RF: 0 lorazepam 0.5 mg tablet 0.5 mg PO TID PRN (Reason: Anxiety) RF: 0 glipizide 2.5 mg tablet extended release 24hr 2.5 mg PO DAILYBB RF: 0 omeprazole 20 mg capsule,delayed release(DR/EC) 20 mg PO QAM RF: 0 lisinopril 5 mg tablet 5 mg PO QAM RF: 0 albuterol sulfate 90 mcg/actuation Hfa Aerosol Inhaler 2 puff INHALATION Q6H PRN (Reason: Shortness Of Breath Or Wheezing) RF: 0 acetaminophen [Tylenol] 325 mg Capsule 325 mg PO Q6H PRN (Reason: pain/fever) RF: 0 Vitamin D3 2,000 units 2,000 unit PO DAILY RF: 0 Stand-Alone Forms: [facility]/Other Patient Handouts: Diet Low Residue, Gastritis, Dehydration Discharge Orders: Discharge Order (Routine); Ordered 06/12/19 Ordered By: Maribell Lucio Admission Data Admit Date/Time: 06/11/19 21:08 Attending Provider: Maribell Lucio Admit Provider: Kranthi Bear Primary Care Provider: Kasandra Antunez Other Providers: Kranthi Bear ; Gillian Green Service: Medical Other Interventions: Discharge Summary Assessment (RN) Last Done: 06/12/19 21:07 DC Date/Time DO NOT enter until pt leaves facility: 06/12/19 22:03
[2019-06-12] MEDS: ATORVASTATIN 10 MG TAB PO SCH (20:37)
== END 2019-06-12 22:03 | disposition home or self-care (01) ==
LOC: ED 16:55 → 3W 16:55 → SUATTDRO 21:08 → 3W 21:45

== ENCOUNTER 2020-02-23 08:04 | Inpatient (IN) ==
[~2020-02-23 08:04] MED LIST changes: -ACET-1256 PO; -ALBU1AER9 INH; -ASPCH81X PO; -ATOR10TA82 PO; -CHOL2000 PO; -GLIP-172 PO; -LISI-461 PO; -LORA-741 PO; -METO-217 PO; +OPTIRAY 320 125ml IV PRN; -PRLSR20 PO; -SPIR25TA89 PO
--- NOTE | 2020-02-23 08:27 | Emergency Department Note ---
Impression & Plan Acute left-sided weakness, Stroke-like symptoms, Brain TIA, Hypomagnesemia ED Provider Note NAME: TATUM NOEL AGE: 74 SEX: F : 1945 ARRIVES VIA: Ambulance INFORMANT: [Patient][ems] ED PROVIDER(S): [Jaspreet Machuca MD] CHIEF COMPLAINT: Left-sided weakness Patient first seen by me at 8:05 AM. HISTORY OF PRESENT ILLNESS: The patient is a 74-year-old female presents to the ER by EMS for a possible stroke alert. The patient apparently was fine this morning when she awoke around 6 AM. Around 7 AM, just over 1 hour ago, she noticed that her left arm was not working. She was trying to make coffee. She stumbled and fell because of weakness. EMS was summoned. EMS crew noted some slurring of her speech, a gaze preference to the right and some left arm and left leg weakness. They did call-in via medical command and a stroke alert was called. As per EMS, the patient's blood sugar was 117. She had a somewhat elevated blood pressure at about 160 systolic. The patient had no complaints of chest pain or shortness of breath. There was no severe headache reported. Of note, when the patient arrived back from CT in her room, she felt that her left sided symptoms had resolved. She felt her speech was now normal. No current complaints, she was in baseline health early this morning and had no issues yesterday either. REVIEW OF SYSTEMS: See HPI for pertinent positives and negatives. A total of ten systems were reviewed and were otherwise negative. PMHx/PSHx: See Below SOCIAL HISTORY: See Below. PHYSICAL EXAM: GENERAL: Patient is in no acute distress. HEENT: No acute trauma, normocephalic atraumatic, mucous membranes moist, no nasal congestion, no scleral icterus. NECK: No stridor, no adenopathy, no meningismus, trachea is midline. LUNGS: Clear to auscultation bilaterally, no wheeze, no rhonchi, breath sounds equal. HEART: 2/6 systolic murmur, regular rhythm with an occasional extra beat, normal rate. ABDOMEN: Soft, nontender, bowel sounds positive, no hernias, no peritonitis. EXTREMITIES: No cyanosis or edema, full range of motion of all the joints without pain or difficulty, no signs for acute trauma. NEUROLOGIC: Oriented x 3. No facial droop, no speech slur, no extremity drift appreciated. No gaze preference. No cerebellar deficit. SKIN: No rash, no jaundice, no diaphoresis. DIFFERENTIAL DIAGNOSIS: Infection, dehydration, metabolic abnormality, hypo/hyperglycemia, TIA, CVA, UTI, electrolyte disturbance, anemia, hypoxia, cardiac sources, intracerebral event, toxicologic, neurologic, as well as other pathologies. EMERGENCY DEPARTMENT COURSE/PROCEDURES: ECG: Location was possible stroke. The EKG shows a sinus rhythm with a first- degree AV block and PVCs. The rate is 82. There is a borderline left bundle branch block. QTC is 504. There is no ST elevation. Continuous Cardiac Monitoring: An order was placed for continuous cardiac monitoring. The monitor shows a rate of 74 with sinus rhythm with PVCs. Critical Care Note: I have personally spent greater than 46 minutes of critical care time in the direct management of this patient. This includes bedside care, interpretation of diagnostic studies, and testing, discussion with consultants, patient, and family members, and other required patient management activities. This 46 minutes is in excess of all separately billable procedures. MEDICAL DECISION MAKING: There is no leukocytosis or concerning anemia. There is a normal platelet count. No coagulopathy. There is some renal insufficiency with a creatinine of 1.5, this is baseline. Magnesium was somewhat low at 1.6. No worrisome liver enzyme elevation. Urinalysis did not show infection or hematuria. EKG showed sinus rhythm with PVCs, no acute ischemia. Cardiac enzyme testing x1 is not consistent with acute cardiac injury. Brain CT shows no acute bleed or mass- effect. CTA of the head and neck do not show any significant narrowing or thrombosis. The patient presents with some reported speech difficulty and left-sided weakness. By the time she arrived in our ED, she seemed back to baseline. I could find no focal neurologic deficits. Because of the complaints, a stroke alert was called in the field. The patient was taken directly to CT and then assessed once she returned from CT. The stroke neurologist was involved via telemedicine. The patient is not going to receive TPA as she has had complete resolution of symptoms. Hospitalization has been recommended though for a complete stroke work-up. I spoke to the patient, I called and spoke with her on the phone. I did speak to case management. The on-call hospitalist has been consulted. The patient was given 2 g of IV magnesium to replace this lower value. In short, at this point, it appears the patient had a TIA. Her symptoms/deficits have now completely resolved. 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 Beliefs That Will Affect Care: None marital status: Current Living Situation: Spouse Feels Safe at Home: Yes Smoking Status: Former smoker Hx Alcohol Use: Yes Hx Substance Use: No Allergies Allergies Allergy/AdvReac Type Severity Reaction Status Date / Time codeine Allergy Intermediate "UNSURE IF Verified 06/11/19 19:16 STILL ALLERGIC" Home Meds Home Medications Medication Instructions Recorded Confirmed acetaminophen [Tylenol] 325 mg PO Q6H PRN 06/11/19 02/23/20 albuterol sulfate 2 puff INHALATION Q6H PRN 06/11/19 02/23/20 allopurinol 100 mg PO QAM 06/11/19 02/23/20 aspirin 0 mg PO QAM 06/11/19 02/23/20 atorvastatin 10 mg PO QPM 06/11/19 02/23/20 glipizide 2.5 mg PO DAILYBB 06/11/19 02/23/20 lisinopril 5 mg PO QAM 06/11/19 02/23/20 lorazepam 0.5 mg PO TID PRN 06/11/19 02/23/20 metoprolol succinate 0 mg PO QAM 06/11/19 02/23/20 omeprazole 20 mg PO QAM 06/11/19 02/23/20 spironolactone 25 mg PO QAM 06/11/19 02/23/20 metoprolol succinate 0 mg PO DAILY 02/23/20 02/23/20 Results & Data (ED) Vital Signs Vital Signs - 24 hr 02/23/20 08:00 02/23/20 08:49 02/23/20 09:15 Temperature 36.5 C Temperature Source Oral Pulse Rate 74 Pulse Rate [Apical] 68 78 Pulse Rhythm Irregular Pulse Rhythm [Apical] Irregular Irregular Respiratory Rate 17 17 17 Respiratory Effort / Characteristics Non-Labored Spontaneous Non-Labored Spontaneous Non-Labored Spontaneous Respiratory Depth Normal Normal Normal Respiratory Pattern Regular Regular Regular Blood Pressure 149/60 H Blood Pressure [Left Arm] 165/80 H 151/71 H Blood Pressure Mean 89 Blood Pressure Mean [Left Arm] 108 97 Pulse Oximetry 97 96 96 Oxygen Delivery Method Room Air Room Air Room Air Sepsis Recent Fever Within 48 Hours No Sepsis New/Unexplained Change in Mental Status No Sepsis Action Taken by Nursing No Action Required Home Medications Current Medication List: was personally reviewed by me Laboratory Data Attestation: I reviewed the patient's lab results. Result diagrams: 02/23/20 08:31 02/23/20 08:31 Lab Results 02/23/20 02/23/20 02/23/20 Range/Units 08:31 08:31 08:31 WBC 6.48 (4.8-10.8) K/uL RBC 3.72 L (4.2-5.4) M/uL Hgb 12.9 (12.0-16.0) g/dL Hct 39.2 (37-47) % MCV 105.4 H (80-100) fL MCH 34.7 H (25-34) pg MCHC 32.9 (32-36) g/dL RDW Std Deviation 53.7 H (36.4-46.3) fL RDW Coeff of Etta 14.0 (11.5-14.5) % Plt Count 215 (130-400) K/uL MPV 11.6 H (7.4-10.4) fL Immature Gran % (Auto) 0.2 % Neut % (Auto) 51.8 % Lymph % (Auto) 34.1 % [place] % (Auto) 11.7 % Eos % (Auto) 1.7 % Baso % (Auto) 0.5 % Immature Gran # (Auto) 0.01 (0.00-0.02) K/uL Neut # (Auto) 3.36 (1.4-6.5) K/uL Lymph # (Auto) 2.21 (1.2-3.4) K/uL [place] # (Auto) 0.76 H (0.11-0.59) K/uL Eos # (Auto) 0.11 (0-0.5) K/uL Baso # (Auto) 0.03 (0-0.2) K/uL PT 11.4 (9.0-12.0) Seconds INR 1.1 (0.9-1.1) APTT 27.3 (21.0-31.0) Seconds PTT Ratio 1.0 Sodium 139 (136-145) mmol/L Potassium 3.6 (3.5-5.1) mmol/L Chloride 109 H (98-107) mmol/L Carbon Dioxide 23 (21-32) mmol/L Anion Gap 7.0 (3-11) BUN 16 (7-18) mg/dl Creatinine 1.53 H (0.6-1.2) mg/dl Est Cr Clr Drug Dosing 0.2 ml/min Est GFR ( Amer) 38.4 Est GFR (Non-Af Amer) 33.2 BUN/Creatinine Ratio 10.4 (10-20) Glucose 140 H (70-99) mg/dl Calcium 8.6 (8.5-10.1) mg/dl Magnesium 1.6 L (1.8-2.4) mg/dl Total Bilirubin 0.7 (0.2-1) mg/dl AST 11 L (15-37) U/L ALT 15 (12-78) U/L Alkaline Phosphatase 145 H (45-117) U/L Troponin I < 0.015 (0-0.045) ng/ml Total Protein 6.9 (6.4-8.2) gm/dl Albumin 3.7 (3.4-5.0) gm/dl Globulin 3.2 (2.5-4.0) gm/dl Albumin/Globulin Ratio 1.2 (0.9-2) Urine Color Urine Appearance (Clear) Urine pH (4.5-7.5) Ur Specific [place] (1.000-1.030) Urine Protein (Negative) Urine Glucose (UA) (Negative) Urine Ketones (Negative) Urine Blood (Negative) Urine Nitrite (Negative) Urine Bilirubin (Negative) Urine Urobilinogen (Negative) Ur Leukocyte Esterase (Negative) 05/03/20 Range/Units 08:46 WBC (4.8-10.8) K/uL RBC (4.2-5.4) M/uL Hgb (12.0-16.0) g/dL Hct (37-47) % MCV (80-100) fL MCH (25-34) pg MCHC (32-36) g/dL RDW Std Deviation (36.4-46.3) fL RDW Coeff of [place]ta (11.5-14.5) % Plt Count (130-400) K/uL MPV (7.4-10.4) fL Immature Gran % (Auto) % Neut % (Auto) % Lymph % (Auto) % [place] % (Auto) % Eos % (Auto) % Baso % (Auto) % Immature Gran # (Auto) (0.00-0.02) K/uL Neut # (Auto) (1.4-6.5) K/uL Lymph # (Auto) (1.2-3.4) K/uL [place] # (Auto) (0.11-0.59) K/uL Eos # (Auto) (0-0.5) K/uL Baso # (Auto) (0-0.2) K/uL PT (9.0-12.0) Seconds INR (0.9-1.1) APTT (21.0-31.0) Seconds PTT Ratio Sodium (136-145) mmol/L Potassium (3.5-5.1) mmol/L Chloride (98-107) mmol/L Carbon Dioxide (21-32) mmol/L Anion Gap (3-11) BUN (7-18) mg/dl Creatinine (0.6-1.2) mg/dl Est Cr Clr Drug Dosing ml/min Est GFR ( Amer) Est GFR (Non-Af Amer) BUN/Creatinine Ratio (10-20) Glucose (70-99) mg/dl Calcium (8.5-10.1) mg/dl Magnesium (1.8-2.4) mg/dl Total Bilirubin (0.2-1) mg/dl AST (15-37) U/L ALT (12-78) U/L Alkaline Phosphatase (45-117) U/L Troponin I (0-0.045) ng/ml Total Protein (6.4-8.2) gm/dl Albumin (3.4-5.0) gm/dl Globulin (2.5-4.0) gm/dl Albumin/Globulin Ratio (0.9-2) Urine Color Yellow Urine Appearance Clear (Clear) Urine pH 5.0 (4.5-7.5) Ur Specific [place] 1.020 (1.000-1.030) Urine Protein Negative (Negative) Urine Glucose (UA) Negative (Negative) Urine Ketones Negative (Negative) Urine Blood Negative (Negative) Urine Nitrite Negative (Negative) Urine Bilirubin Negative (Negative) Urine Urobilinogen Negative (Negative) Ur Leukocyte Esterase Negative (Negative) Administered Medications Magnesium Sulfate/Dextrose (Magnesium Sulfate / D5w) 1 gm in 100 mls @ 100 mls/hr IV Q1H ALYSSA Stop: 02/23/20 11:14 Last Admin: 02/23/20 09:18 Dose: 100 mls/hr Documented by: [id number] Ioversol (Optiray 320 125ml) 120 ml IV ONCE PRN PRN Reason: Interaction Checking Stop: 02/27/20 08:00 Last Admin: 02/23/20 08:01 Dose: 120 ml Documented by: [id number] Imaging Data Radiologist's Impression: HEAD CT NONCONTRAST CT DOSE: 1160.41 mGy.cm HISTORY: Stroke symptoms. TECHNIQUE: Multiaxial CT images of the head were performed without the use of intravenous contrast. Automated exposure control was utilized for this study. A dose lowering technique was utilized adhering to the principles of ALARA. Comparison: Brain MRI 02/17/2017. Findings: The paranasal sinuses and mastoid air cells are clear. The calvarium and skull base are intact. The ventricles and sulci are within normal limits for age. Stable punctate calcification within the left frontal lobe on image 20. Extensive white matter hypodensity remains unchanged. This favors advanced microvascular ischemic change. There is no mass, hematoma, midline shift, acute infarct. Impression: No significant change compared to the prior study. No acute intracranial abnormality. HEAD & NECK CTA HISTORY: Stroke symptoms. Stroke evaluation TECHNIQUE: Multiaxial CT images of the head were performed following the intravenous administration of contrast to evaluate the major cerebral vessels. Multiaxial CT images of the neck were also performed following the intravenous administration of contrast to evaluate the major cervical vessels. Maximum intensity projection images were also obtained. A dose lowering technique was utilized adhering to the principles of ALARA. COMPARISON: None. FINDINGS: There is no mass, hematoma, midline shift, or acute infarct. Visualized intracranial internal carotid arteries, distal vertebral arteries, and basilar artery are widely patent. There is no significant stenosis, occlusion, or aneurysm seen within the bilateral ACAs, MCAs, or pre school manager. Moderate calcified plaque within the distal vertebral arteries and bilateral carotid siphons. The major dural venous sinuses are patent. The right transverse sinus is not well visualized and is likely absent on a congenital basis. The aortic arch and proximal great vessels are widely patent. There is no significant stenosis, occlusion, or dissection identified within the bilateral common carotid, internal carotid, or vertebral arteries. IMPRESSION: 1. No significant stenosis, occlusion, or aneurysm within the [place]. 2. No significant stenosis, occlusion, or dissection identified within the carotid or vertebral arteries. Blood Pressure Blood Pressure Findings: Elevated blood pressure Blood Pressure Disposition: further management by hospitalist Head Trauma GCS Score: 15 Discharge Plan Visit Data Chief Complaint: Stroke Alert Stated Complaint: Stroke Alert ED Provider: Jaspreet Machuca Discharge Problem: Acute left-sided weakness, Stroke-like symptoms, Brain TIA, Hypomagnesemia Patient Disposition: Being Evaluated by Hospitalist Condition: Good Forms Stand Alone Forms: [facility] Prescriptions Prescriptions: No Action metoprolol succinate 25 mg tablet extended release 24 hr 0 mg PO DAILY RF: 0 atorvastatin 10 mg tablet 10 mg PO QPM RF: 0 metoprolol succinate 50 mg tablet extended release 24 hr 0 mg PO QAM RF: 0 allopurinol 100 mg tablet 100 mg PO QAM RF: 0 aspirin 81 mg Tablet,Delayed Release (Dr/Ec) 0 mg PO QAM RF: 0 spironolactone 25 mg tablet 25 mg PO QAM RF: 0 lorazepam 0.5 mg tablet 0.5 mg PO TID PRN (Reason: Anxiety) RF: 0 glipizide 2.5 mg tablet extended release 24hr 2.5 mg PO DAILYBB RF: 0 omeprazole 20 mg capsule,delayed release(DR/EC) 20 mg PO QAM RF: 0 lisinopril 5 mg tablet 5 mg PO QAM RF: 0 albuterol sulfate 90 mcg/actuation Hfa Aerosol Inhaler 2 puff INHALATION Q6H PRN (Reason: Shortness Of Breath Or Wheezing) RF: 0 acetaminophen [Tylenol] 325 mg Capsule 325 mg PO Q6H PRN (Reason: pain/fever) RF: 0 Referrals Referrals: Kasandra Antunez, [Primary Care Provider] -
--- NOTE | 2020-02-23 08:31 | CT Scan Report ---
HEAD CT NONCONTRAST CT DOSE: 1160.41 mGy.cm HISTORY: Stroke symptoms. TECHNIQUE: Multiaxial CT images of the head were performed without the use of intravenous contrast. A utomated exposure control was utilized for this study. A dose lowering technique was utilized adheri ng to the principles of ALARA. Comparison: Brain MRI 02/17/2017. Findings: The paranasal sinuses and mastoid air cells are clear. The calvarium and skull base are int act. The ventricles and sulci are within normal limits for age. Stable punctate calcification within the left frontal lobe on image 20. Extensive white matter hypodensity remains unchanged. This favors advanced microvascular ischemic change. There is no mass, hematoma, midline shift, acute infarct. Impression: No significant change compared to the prior study. No acute intracranial abnormality. ACT 112: Negative or not required by law. Electronically signed by: Alex Rouse M.D. 02/23/2020 8:30 AM
--- NOTE | 2020-02-23 08:37 | CT Scan Report ---
HEAD & NECK CTA HISTORY: Stroke symptoms. Stroke evaluation TECHNIQUE: Multiaxial CT images of the head were performed following the intravenous administration o f contrast to evaluate the major cerebral vessels. Multiaxial CT images of the neck were also perform ed following the intravenous administration of contrast to evaluate the major cervical vessels. Maxim um intensity projection images were also obtained. A dose lowering technique was utilized adhering to the principles of ALARA. COMPARISON: None. FINDINGS: There is no mass, hematoma, midline shift, or acute infarct. Visualized intracranial internal carotid arteries, distal vertebral arteries, and basilar artery are widely patent. There is no significant s tenosis, occlusion, or aneurysm seen within the bilateral ACAs, MCAs, or wharf operator. Moderate calcified nael que within the distal vertebral arteries and bilateral carotid siphons. The major dural venous sinuse s are patent. The right transverse sinus is not well visualized and is likely absent on a congenital basis. The aortic arch and proximal great vessels are widely patent. There is no significant stenosis, occ lusion, or dissection identified within the bilateral common carotid, internal carotid, or vertebral arteries. IMPRESSION: 1. No significant stenosis, occlusion, or aneurysm within the [place]. 2. No significant stenosis, occlusion, or dissection identified within the carotid or vertebral arter ies. ACT 112: Negative or not required by law. Electronically signed by: Alex Rouse M.D. 02/23/2020 8:36 AM
--- NOTE | 2020-02-23 08:37 | CT Scan Report ---
HEAD & NECK CTA HISTORY: Stroke symptoms. Stroke evaluation TECHNIQUE: Multiaxial CT images of the head were performed following the intravenous administration o f contrast to evaluate the major cerebral vessels. Multiaxial CT images of the neck were also perform ed following the intravenous administration of contrast to evaluate the major cervical vessels. Maxim um intensity projection images were also obtained. A dose lowering technique was utilized adhering to the principles of ALARA. COMPARISON: None. FINDINGS: There is no mass, hematoma, midline shift, or acute infarct. Visualized intracranial internal carotid arteries, distal vertebral arteries, and basilar artery are widely patent. There is no significant s tenosis, occlusion, or aneurysm seen within the bilateral ACAs, MCAs, or gaming commissioner. Moderate calcified nael que within the distal vertebral arteries and bilateral carotid siphons. The major dural venous sinuse s are patent. The right transverse sinus is not well visualized and is likely absent on a congenital basis. The aortic arch and proximal great vessels are widely patent. There is no significant stenosis, occ lusion, or dissection identified within the bilateral common carotid, internal carotid, or vertebral arteries. IMPRESSION: 1. No significant stenosis, occlusion, or aneurysm within the [place]. 2. No significant stenosis, occlusion, or dissection identified within the carotid or vertebral arter ies. ACT 112: Negative or not required by law. Electronically signed by: Alex Rouse M.D. 02/23/2020 8:36 AM
[2020-02-23 08:42] LABS: Basophils # (auto) 0.03 K/uL (0-0.2); Basophils % (auto) 0.5 %; Eosinophils # (auto) 0.11 K/uL (0-0.5); Eosinophils % (auto) 1.7 %; Hematocrit (blood only) 39.2 % (37-47); Hemoglobin 12.9 g/dL (12.0-16.0); Immature Granulocytes # (auto) 0.01 K/uL (0.00-0.02); Immature Granulocytes % (auto) 0.2 %; Lymphocytes # (auto) 2.21 K/uL (1.2-3.4); Lymphocytes % (auto) 34.1 %; Mean Corpuscular Hemoglobin 34.7 pg (25-34); Mean Corpuscular Hgb Conc 32.9 g/dL (32-36); Mean Corpuscular Volume 105.4 fL (80-100); Mean Platelet Volume 11.6 fL (7.4-10.4); Monocytes # (auto) 0.76 K/uL (0.11-0.59); Monocytes % (auto) 11.7 %; Neutrophils # (auto) 3.36 K/uL (1.4-6.5); Neutrophils % (auto) 51.8 %; Platelet Count 215 K/uL (130-400); RDW Standard Deviation 53.7 fL (36.4-46.3); Red Blood Count 3.72 M/uL (4.2-5.4); White Blood Count 6.48 K/uL (4.8-10.8)
[2020-02-23 08:56] LABS: Appearance Urine Clear (Clear); Bilirubin Urine Negative (Negative); Blood Urine Negative (Negative); Color Urine Yellow; Glucose Urine UA Negative (Negative); Ketones Urine Negative (Negative); Leukocyte Esterase Urine Negative (Negative); Nitrite Urine Negative (Negative); Protein Urine Negative (Negative); Urobilinogen Urine Negative (Negative)
[2020-02-23 09:00] LABS: Alanine Aminotransferase 15 U/L (12-78); Albumin Level 3.7 gm/dl (3.4-5.0); Aspartate Aminotransferase 11 U/L (15-37); BUN Creatinine Ratio 10.4 (10-20); Blood Urea Nitrogen 16 mg/dl (7-18); Calcium 8.6 mg/dl (8.5-10.1); Carbon Dioxide 23 mmol/L (21-32); Chloride 109 mmol/L (98-107); Creatinine Clr Calc Pharmacy 0.2 ml/min; Est GFR (African American) 38.4; Est GFR (Non-African American) 33.2; Glucose 140 mg/dl (70-99); INR 1.1 (0.9-1.1); Magnesium 1.6 mg/dl (1.8-2.4); Partial Thromboplastin Time 27.3 Seconds (21.0-31.0); Potassium 3.6 mmol/L (3.5-5.1); Prothrombin Time 11.4 Seconds (9.0-12.0); Sodium 139 mmol/L (136-145)
[2020-02-23 09:05] LABS: Albumin Globulin Ratio 1.2 (0.9-2); Alkaline Phosphatase 145 U/L (45-117); Bilirubin,Total 0.7 mg/dl (0.2-1); Globulin 3.2 gm/dl (2.5-4.0); Total Protein 6.9 gm/dl (6.4-8.2); Troponin I < 0.015 ng/ml (0-0.045)
[2020-02-23] MEDS: MAGNESIUM SULFATE / D5W 1 GM/100 ML BAG IV SCH ×2 (09:18→12:02)
--- NOTE | 2020-02-23 09:57 | Electrocardiogram Report ---
Test Reason : Blood Pressure : / mmHG Vent. Rate : 082 BPM Atrial Rate : 082 BPM P-R Int : 210 ms QRS Dur : 134 ms QT Int : 432 ms P-R-T Axes : 075 -60 081 degrees QTc Int : 504 ms Sinus rhythm with 1st degree A-V block with occasional Premature ventricular complexes Left axis deviation Left bundle branch block Abnormal ECG When compared with ECG of 11-JUN-2019 17:09, No significant change Confirmed by Abdullahi Ornelas ([id number]) on 02/23/2020 9:57:16 AM Referred By: REFERRED SELF Confirmed By:Abdullahi Ornelas
--- NOTE | 2020-02-23 10:18 | History & Physical Report ---
Date of Service February 23, 2020 Assessment & Plan (1) Brain TIA: Per pt, symptoms completely resolved but per nursing, some residual weakness on left side when pt ambulated to bedside commode. - Continue to monitor with neuro checks. - Check Brain MRI, carotid duplex - Monitor on telemetry - per ED RN, pt intermittently in atrial fibrillation although pt was in NSR with ectopy when seen by this provider. Per review of outpt notes, pt's metoprolol was recently decreased from 50 mg to 25 mg daily due to bradycardia. May consider cardiology consultation pending clinical course. - Check ECHO - Passed bedside speech eval in ED - AHA Diabetic diet, aspiration precautions - PT/OT consults - Case management evaluation - pt insistent about going directly home, was resistant to the possibility of rehab - Continue aspirin 81 mg daily, add Plavix 75 mg daily per recommendation of telestroke provider. - Consult neurology for additional recommendations, including input on dual antiplatelet therapy and duration (2) Hypomagnesemia: - Given IV magnesium in ED - Recheck this evening (3) Dyslipidemia: - Increase atorvostatin from 10 mg to 20 mg daily if tolerated - Check fasting lipid profile in AM (4) CKD (chronic kidney disease) stage 3, GFR 30-59 ml/min: Thought to be multifactorial due to DM, HTN, age. Baseline creatinine ~1.6 - currently at baseline - Follow labs (5) Type 2 diabetes mellitus: - Hold oral diabetic meds - Insulin sliding scale - Check A1c - Accuchecks ACHS - Diabetic diet (6) HTN (hypertension): - Resume home medications and monitor (7) Paroxysmal atrial tachycardia: Follows with Dr. Blanchard (last visit in 2018) - beta-rizwan decreased due to bradycardia about a month ago by PCP - See plan of care for #1 Pt seen and reviewed with attending physician, Dr. Silvestre. Plan of care discussed and as outlined above. Esvin Rodriguez PA-C History of Present Illness Chief Complaint: "I think I had a stroke!" Primary Care Provider: Kasandra Antunez, DO This is a pleasant 74 y/o female with a PMH of diabetes type 2, paroxysmal atrial tachycardia, HTN, CKD3, hypertensive cardiomyopathy, dyslipidemia, gout, and GERD who presents with stroke-like symptoms that have presently resolved. Pt reports waking up around 6 am in her usual state of health. Around 7 am, she went to make her morning coffee and noted left arm heaviness and weakness ("my arm fell in the sink"). She then attempted to walk into the living room to get a tissue but reports her left leg felt weak and she stumbled and fell onto the floor. Denies LOC or hitting her head. At this point, her family called EMS. Per EMS report, pt did have mild slurred speech when they arrived and was noted to be weak in LUE and LLE. A stroke alert was called. By the time, pt was evaluated in the ED, symptoms were noted to be improving. Per pt, she is back to her baseline although nursing did not some left-sided weakness when she ambulated to the bedside commode after arrival. She denies any prior similar symptoms previously. Per telestroke consult, pt was not a candidate for TPA but was recommended to continue aspirin and consider dual anti-platelet therapy. Pt states that she takes care of her at home, but that she cannot lift him herself so her son is around and helps her. Allergies Allergy/AdvReac Type Severity Reaction Status Date / Time codeine Allergy Intermediate "UNSURE IF Verified 06/11/19 19:16 STILL ALLERGIC" Home Medications Home Medications Medication Instructions Recorded Confirmed Type acetaminophen [Tylenol] 325 mg PO Q6H PRN 06/11/19 02/23/20 History albuterol sulfate 2 puff INHALATION Q6H PRN 06/11/19 02/23/20 History allopurinol 100 mg PO QAM 06/11/19 02/23/20 History aspirin 0 mg PO QAM 06/11/19 02/23/20 History atorvastatin 10 mg PO QPM 06/11/19 02/23/20 History glipizide 2.5 mg PO DAILYBB 06/11/19 02/23/20 History lisinopril 5 mg PO QAM 06/11/19 02/23/20 History lorazepam 0.5 mg PO TID PRN 06/11/19 02/23/20 History omeprazole 20 mg PO QAM 06/11/19 02/23/20 History spironolactone 25 mg PO QAM 06/11/19 02/23/20 History metoprolol succinate 25 mg PO DAILY 02/23/20 02/23/20 History Past Med/Surg History Medical History (Updated 02/23/20 @ 10:51 by Maryse Rodriguez PA-C) Atrial fibrillation (Chronic) CKD (chronic kidney disease) stage 3, GFR 30-59 ml/min Degenerative disc disease, cervical Dyslipidemia [place] (generalized anxiety disorder) GERD without esophagitis Hearing loss History of adenomatous polyp of colon HTN (hypertension) (Chronic) Hypertensive cardiomegaly Paroxysmal atrial tachycardia Type 2 diabetes mellitus Vitamin D deficiency Surgical History (Updated 02/23/20 @ 10:35 by Maryse Rodriguez PA-C) History of arthroplasty of left knee History of carpal tunnel surgery History of cholecystectomy (Resolved) History of D&C History of excision of lesion Back - Dr. 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 Required: No Beliefs That Will Affect Care: None marital status: Current Living Situation: Spouse Feels Safe at Home: Yes Safety Concerns: Feels Safe At This Time Smoking Status: Former smoker Hx Alcohol Use: No Hx Substance Use: No Review of Systems Constitutional: no fever, no chills and no fatigue Eyes: no diplopia and no worsening vision Ear, Nose, Mouth, Throat: no sore throat and no dysphagia Respiratory: no cough and no dyspnea Cardiovascular: no chest pain, no palpitations, no syncope and no edema Gastrointestinal: no abdominal pain, no nausea, no vomiting and no diarrhea/loose stools Genitourinary: no dysuria, no difficulty urinating and no urinary frequency Musculoskeletal: no back pain and no neck pain Integumentary: no rash Neurologic: as per Subjective / HPI; no seizure-like activity and no headac he(s) Psychiatric: no depression and no confusion Physical Exam Constitutional: WD/WN, vitals as above no acute distress Eyes: PERRL, conjunctivae normal, anicteric sclerae ENMT: Ears: + hearing impairment Mouth: no oral mucosal abnormality Neck: trachea midline Respiratory: normal respiratory effort, lungs clear to auscultation Auscultation: no rales, no rhonchi and no wheezes Cardiovascular: Heart Sounds: no gallop and no cardiac rub Extremities: normal capillary refill; no pedal edema Regular with frequent ectopy Gastrointestinal (Abdomen): Inspection/Auscultation: normal bowel sounds; abdomen not distended Percussion/Palpation: abdomen soft; abdomen nontender Musculoskeletal: Head/Neck/Chest: normocephalic, head atraumatic and neck supple Extremities: no cyanosis and no clubbing Skin: no rashes, warm and dry no jaundice Neurologic: PERRL, EOMI, accommodation nl, no face palsy, no dysarthria moves all extremities Speech / Cognition: normal speech Plantar flexion/dorsiflexion: Left LE strength 4+. Right LE strength 5+ Crate Maker strength equal bilaterally Psychiatric: A+Ox3, euthymic affect Results & Data Results & Data ([facility]) Vital Signs (Past 12 Hours) Vital Signs Temp Pulse Pulse Resp BP BP Pulse Ox 02/23/20 10:03 64 18 94 02/23/20 09:45 62 18 172/60 H 94 02/23/20 09:15 78 17 151/71 H 96 02/23/20 08:49 68 17 165/80 H 96 02/23/20 08:00 36.5 C 74 17 149/60 H 97 Laboratory Results Laboratory Results - last 24 hr 02/23/20 02/23/20 02/23/20 08:31 08:31 08:31 WBC 6.48 RBC 3.72 L Hgb 12.9 Hct 39.2 MCV 105.4 H MCH 34.7 H MCHC 32.9 RDW Std Deviation 53.7 H RDW Coeff of [place] 14.0 Plt Count 215 MPV 11.6 H Immature Gran % (Auto) 0.2 Neut % (Auto) 51.8 Lymph % (Auto) 34.1 [place] % (Auto) 11.7 Eos % (Auto) 1.7 Baso % (Auto) 0.5 Immature Gran # (Auto) 0.01 Neut # (Auto) 3.36 Lymph # (Auto) 2.21 [place] # (Auto) 0.76 H Eos # (Auto) 0.11 Baso # (Auto) 0.03 PT 11.4 INR 1.1 APTT 27.3 PTT Ratio 1.0 Sodium 139 Potassium 3.6 Chloride 109 H Carbon Dioxide 23 Anion Gap 7.0 BUN 16 Creatinine 1.53 H Est Cr Clr Drug Dosing 0.2 Est GFR ( Amer) 38.4 Est GFR (Non-Af Amer) 33.2 BUN/Creatinine Ratio 10.4 Glucose 140 H Calcium 8.6 Magnesium 1.6 L Total Bilirubin 0.7 AST 11 L ALT 15 Alkaline Phosphatase 145 H Troponin I < 0.015 Total Protein 6.9 Albumin 3.7 Globulin 3.2 Albumin/Globulin Ratio 1.2 Urine Color Urine Appearance Urine pH Ur Specific [place] Urine Protein Urine Glucose (UA) Urine Ketones Urine Blood Urine Nitrite Urine Bilirubin Urine Urobilinogen Ur Leukocyte Esterase 02/23/20 08:46 WBC RBC Hgb Hct MCV MCH MCHC RDW Std Deviation RDW Coeff of [place] Plt Count MPV Immature Gran % (Auto) Neut % (Auto) Lymph % (Auto) [place] % (Auto) Eos % (Auto) Baso % (Auto) Immature Gran # (Auto) Neut # (Auto) Lymph # (Auto) [place] # (Auto) Eos # (Auto) Baso # (Auto) PT INR APTT PTT Ratio Sodium Potassium Chloride Carbon Dioxide Anion Gap BUN Creatinine Est Cr Clr Drug Dosing Est GFR ( Amer) Est GFR (Non-Af Amer) BUN/Creatinine Ratio Glucose Calcium Magnesium Total Bilirubin AST ALT Alkaline Phosphatase Troponin I Total Protein Albumin Globulin Albumin/Globulin Ratio Urine Color Yellow Urine Appearance Clear Urine pH 5.0 Ur Specific [place] 1.020 Urine Protein Negative Urine Glucose (UA) Negative Urine Ketones Negative Urine Blood Negative Urine Nitrite Negative Urine Bilirubin Negative Urine Urobilinogen Negative Ur Leukocyte Esterase Negative Diagnostic Findings CT Head 02/23/20 - Impression: No significant change compared to the prior study. No acute intracranial abnormality. Head/Neck CTA 02/23/20 - IMPRESSION: 1. No significant stenosis, occlusion, or an eurysm within the [place]. 2. No significant stenosis, occlusion, or dissection identified within the carotid or vertebral arteries. Medications Administered Magnesium Sulfate/Dextrose (Magnesium Sulfate / D5w) 1 gm in 100 mls @ 100 mls/hr IV Q1H ALYSSA Stop: 02/23/20 11:14 Last Infusion: 02/23/20 10:08 Dose: 0 mls/hr Documented by: [id number] Admin: 02/23/20 09:18 Dose: 100 mls/hr Documented by: [id number] Ioversol (Optiray 320 125ml) 120 ml IV ONCE PRN PRN Reason: Interaction Checking Stop: 02/27/20 08:00 Last Admin: 02/23/20 08:01 Dose: 120 ml Documented by: [id number] Code Status & VTE Plan VTE Prophylaxis Plan VTE Prophylaxis will be ordered: Yes Supervising Physician Co-Signing Physician Notes I saw this patient with the physician quality assistant, I participated in the history, physical, review of systems, and physical exam. I reviewed the medications with the patient and the physician quality assistant and helped reconcile the medications. I helped take a detailed family and social history as well. I formulated the assessment and plan personally with the physician quality assistant and went over it with the patient. Physical Exam Gen-AAO x 3, NAD, Afebrile, [place] Head-NCAT, EOMI, PERRLA, Anicteric Sclera, No Posterior Pharyngeal Erythema Neck-Supple, No JVD, No Thyromegaly, No Masses, No LAD, No Bruits Lungs-Clear to Auscultation Bilaterally, No Rales, No Rhonchi, No Wheezing, No Crepitus Chest-No S4, +S1, +S2, No S3, No Murmurs, No Rubs, No Gallops, No Ectopy Abdomen-Soft, Bowel Sounds Present, Non Tender, Non Distended, No Hepatomegaly, No Splenomegaly, No Palpable Masses, No Rebound, No Rigidity, No Guarding Musculoskeletal-Full Range of Motion Bilaterally, No CVAT Extremities-No Cyanosis, No Clubbing, No Edema Nuero-Cranial Nerves II-XII grossly intact, Motor WNL, DTRs WNL, Strength WNL, Non Focal Psych-Normal Mood (1) Type 2 diabetes mellitus Chronic kidney disease stage: stage 3 (moderate) Diabetes mellitus complication detail: with chronic kidney disease Diabetes mellitus complication status: with kidney complications Diabetes mellitus intermediate card tender insulin use: without long-term use Qualified Code(s): 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 (2) HTN (hypertension) 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 type: essential hypertension Qualified Code(s): I10 - Essential (primary) hypertension
[2020-02-23] MEDS ORDERED: DEXTROSE 50% 50 ML SYRINGE IV PRN (12:17)
[2020-02-23] MEDS ORDERED: GLUCOSE 40% GEL 15 GM TUBE PO PRN (12:17)
[2020-02-23] MEDS ORDERED: ACETAMINOPHEN 325 MG TAB PO PRN (12:17)
[2020-02-23] MEDS ORDERED: ALBUTEROL HFA 8 GM INHALER INH PRN (12:17)
[2020-02-23] MEDS ORDERED: CARBOHYDRATES FOR HYPOGLYCEMIA PO PRN (12:17)
[2020-02-23] MEDS ORDERED: GLUCOSE 10 TABS/TUBE PO PRN (12:17)
[2020-02-23] MEDS ORDERED: GLUCAGON FOR INJ 1 MG VIAL SQ PRN (12:17)
--- NOTE | 2020-02-23 12:35 | Communication Note ---
Date of Service: February 23, 2020 I have reviewed the chart after receiving his consult and have reviewed the imaging studies and the clinical history is recorded. This is a 74-year-old woman with hypertension diabetes dyslipidemia and apparently paroxysmal atrial tachycardia who presents with improving left-sided weakness and apparently some mild residual left-sided weakness noted by nursing in the emergency room CT scan shows extensive leukoencephalopathy indicative of small vessel disease but there is no evidence for large vessel stenoses on appropriate imaging MRI is pending Apparently emergency room has noted paroxysmal atrial fibrillation and if this is indeed the case then anticoagulation with either a novel agent or Coumadin may be indicated but this needs to be confirmed and cardiology needs clearly to get involved From a neurologic point of view I agree totally with the plans to add Plavix to the aspirin, await the results of the MRI and we will see what cardiology has to say after reviewing the case and perhaps another echocardiogram I will be in tomorrow to assist the patient and we will check her chart secondary to see if MRI results are back Abram Power MD
[2020-02-23] MEDS: CLOPIDOGREL BISULFATE 75 MG TAB PO SCH (13:20)
[2020-02-23] MEDS: INSULIN ASPART 100 UNITS/ML 3 ML PEN SC SCH ×3 (13:22→21:46)
[2020-02-23] MEDS ORDERED: LORazepam 1 MG/2 ML VIAL IV STA (16:24)
[2020-02-23] MEDS ORDERED: DiphenhydrAMINE HCL 50 MG/ML VIAL IV STA (16:26)
--- NOTE | 2020-02-23 18:34 | Magnetic Resonance Report ---
Brain MRI WITHOUT CONTRAST HISTORY: Left-sided weakness. Transient ischemic attack. TECHNIQUE: Multiplanar multisequence MRI of the brain was performed without the use of contrast. COMPARISON STUDY: Head CT 02/23/2020. FINDINGS: There is a 4 cm focal area of restricted diffusion seen within the right frontotemporal reg ion consistent with an acute MCA territory infarct. The midline structures are intact. No change in e xtensive T2 white matter hyperintensity suggestive of advanced microvascular ischemic change. There i s no mass, hematoma, or midline shift. The ventricles are normal in size. The paranasal sinuses and m astoid air cells are clear. The orbits are unremarkable. IMPRESSION: Acute right MCA territory infarct. ACT 112: Negative or not required by law. Electronically signed by: Alex Rouse M.D. 02/23/2020 6:33 PM
[2020-02-23] MEDS ORDERED: ATORVASTATIN 20 MG TAB PO SCH (21:00)
--- NOTE | 2020-02-23 22:34 | Ultrasound Report ---
BILATERAL CAROTID DOPPLER STUDY HISTORY: Right MCA territory infarct. COMPARISON: Neck CTA 02/23/2020. TECHNIQUE: Real-time, grayscale, and color Doppler sonography of the carotid arteries was performed. Imaging reviewed in the transverse and longitudinal planes. All measurements were calculated based on NASCET criteria. FINDINGS: Antegrade flow is seen in the bilateral vertebral arteries. The brachial pressures are hemodynamically similar. No significant calcified plaque. The peak systolic velocity within the right ICA is 67 cm/s. The right systolic ratio is 1.2. The peak systolic velocity within the left ICA is 55 cm/s. The left systolic ratio is 0.8. IMPRESSION: No hemodynamically significant stenosis seen within the carotid arteries. ACT 112: Negative or not required by law. Electronically signed by: Alex Rouse M.D. 02/23/2020 10:33 PM
[2020-02-24 06:02] LABS: Basophils # (auto) 0.02 K/uL (0-0.2); Basophils % (auto) 0.3 %; Eosinophils # (auto) 0.09 K/uL (0-0.5); Eosinophils % (auto) 1.1 %; Hematocrit (blood only) 40.6 % (37-47); Hemoglobin 13.4 g/dL (12.0-16.0); Immature Granulocytes # (auto) 0.01 K/uL (0.00-0.02); Immature Granulocytes % (auto) 0.1 %; Lymphocytes # (auto) 2.33 K/uL (1.2-3.4); Lymphocytes % (auto) 29.8 %; Mean Corpuscular Hemoglobin 34.6 pg (25-34); Mean Corpuscular Volume 104.9 fL (80-100); Mean Platelet Volume 11.6 fL (7.4-10.4); Monocytes # (auto) 0.92 K/uL (0.11-0.59); Monocytes % (auto) 11.7 %; Neutrophils # (auto) 4.46 K/uL (1.4-6.5); Platelet Count 209 K/uL (130-400); RDW Coefficient of Variation 13.9 % (11.5-14.5); RDW Standard Deviation 52.9 fL (36.4-46.3); Red Blood Count 3.87 M/uL (4.2-5.4); White Blood Count 7.83 K/uL (4.8-10.8)
[2020-02-24 06:37] LABS: BUN Creatinine Ratio 9.4 (10-20); Creatinine Clr Calc Pharmacy 31.6 ml/min; Est GFR (African American) 39.7; Est GFR (Non-African American) 34.2; Potassium 3.7 mmol/L (3.5-5.1)
[2020-02-24 06:53] LABS: Estimated Average Glucose 123 mg/dl; Hemoglobin A1C 5.9 % (4.5-5.6)
[2020-02-24] MEDS: CLOPIDOGREL BISULFATE 75 MG TAB PO SCH (07:24)
--- NOTE | 2020-02-24 07:39 | Hospitalist Progress Note ---
Date of Service February 24, 2020 Assessment & Plan (1) Acute ischemic cerebrovascular accident (CVA) involving middle cerebral a rtery territory: Per pt, symptoms completely resolved but per nursing, some residual weakness on left side when pt ambulated to bedside commode. - Continue to monitor with neuro checks. - Brain MRI +CVA, carotid duplex negative - Telemetry - per ED RN, pt intermittently in atrial fibrillation although pt was in NSR with ectopy when seen. Per review of outpt notes, pt's metoprolol was recently decreased from 50 mg to 25 mg daily due to bradycardia. - Check ECHO - Passed bedside speech eval in ED - AHA Diabetic diet, aspiration precautions - PT/OT consults - Case management evaluation - pt insistent about going directly home, was resistant to the possibility of rehab - Continue aspirin 81 mg daily, added Plavix 75 mg daily per recommendation of telestroke provider. - Neurology for additional recommendations, including input on dual antiplatelet therapy and NOAC Change to inpatient status Labs checked ROS-No Headache, No Visual Changes, No Nausea, No Vomiting, No Fever, No Chills, No Neck Pain or Stiffness, No Chest Pain, No Palpitations, No SOB, No ROBERTS, No Cough, No Sputum, No Wheezing, No Abdominal Pain, No Diarrhea, No Hematemesis, No Hemoptysis, No Unexpected Weight Loss, No Flank pain, No Melena, No Hematochezia, No Frequency, No Urgency, No Burning, No Hematuria, No Rashes, No Diaphoresis. Appetite is Normal Physical Exam Gen-AAO x 3, NAD, Afebrile Head-NCAT, EOMI, PERRLA, Anicteric Sclera, No Posterior Pharyngeal Erythema Neck-Supple, No JVD, No Thyromegaly, No Masses, No LAD, No Bruits Lungs-Clear to Auscultation Bilaterally, No Rales, No Rhonchi, No Wheezing, No Crepitus Chest-No S4, +S1, +S2, No S3, No Murmurs, No Rubs, No Gallops, No Ectopy Abdomen-Soft, Bowel Sounds Present, Non Tender, Non Distended, No Hepatomegaly, No Splenomegaly, No Palpable Masses, No Rebound, No Rigidity, No Guarding Musculoskeletal-Full Range of Motion Bilaterally, No CVAT Extremities-No Cyanosis, No Clubbing, No Edema Nuero-Cranial Nerves II-XII grossly intact, Motor WNL, DTRs WNL, Strength WNL, Non Focal Psych-Normal Mood (2) Hypomagnesemia: - Given IV magnesium in ED - Recheck this evening (3) Dyslipidemia: - Increase atorvostatin from 10 mg to 20 mg daily if tolerated - Check fasting lipid profile in AM (4) CKD (chronic kidney disease) stage 3, GFR 30-59 ml/min: Thought to be multifactorial due to DM, HTN, age. Baseline creatinine ~1.6 - currently at baseline - Follow labs (5) Type 2 diabetes mellitus: - Hold oral diabetic meds - Insulin sliding scale - Check A1c - Accuchecks ACHS - Diabetic diet (6) HTN (hypertension): - Resume home medications and monitor (7) Paroxysmal atrial tachycardia: Follows with Dr. Blanchard (last visit in 2018) - beta-rizwan decreased due to bradycardia about a month ago by PCP - See plan of care for #1 Pt seen and reviewed with attending physician, Dr. Silvestre. Plan of care discussed and as outlined above. Esvin Rodriguez PA-C Admission and Anticipated Discharge Date Admission Date: February 23, 2020 Results & Data Results & Data ([facility]) Vital Signs (Past 12 Hours) Vital Signs Temp Pulse Pulse Pulse Resp BP BP 02/24/20 07:19 37 C 73 18 129/67 02/24/20 04:37 36.8 C 71 19 132/70 02/24/20 00:00 61 02/23/20 23:24 36.6 C 60 18 127/63 02/23/20 19:33 36.3 C L 55 L 16 135/71 Pulse Ox 02/24/20 07:19 94 02/24/20 04:37 96 02/24/20 00:00 02/23/20 23:24 94 02/23/20 19:33 94 (1) Type 2 diabetes mellitus Diabetes mellitus remote sensing specialist insulin use: without remote sensing specialist use Diabetes mellitus complication status: with kidney complications Diabetes mellitus complication detail: with chronic kidney disease Chronic kidney disease stage: stage 3 (moderate) Qualified Code(s): 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 (2) HTN (hypertension) 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 type: essential hypertension Qualified Code(s): I10 - Essential (primary) hypertension
[2020-02-24] MEDS ORDERED: allopurinoL 100 MG TAB PO SCH (09:00)
[2020-02-24] MEDS ORDERED: lisinopriL 5 MG TAB PO SCH (09:00)
[2020-02-24] MEDS ORDERED: SPIRONOLACTONE 25 MG TAB PO SCH (09:00)
[2020-02-24] MEDS ORDERED: METOPROLOL SUCC 25MG EXT REL TAB PO SCH (09:00)
[2020-02-24] MEDS ORDERED: ENOXAPARIN INJ 30 MG/0.3 ML SYR SQ SCH (09:00)
[2020-02-24] MEDS ORDERED: ASPIRIN 81 MG ECTAB PO SCH (09:00)
[2020-02-24] MEDS ORDERED: PANTOprazole 40 MG TAB PO SCH (09:00)
[2020-02-24] MEDS: INSULIN ASPART 100 UNITS/ML 3 ML PEN SC SCH ×2 (10:02→12:21)
--- NOTE | 2020-02-24 10:45 | Cardiology Consultation ---
Date of Consultation February 24, 2020 Assessment & Plan (1) Acute ischemic cerebrovascular accident (CVA) involving middle cerebral artery territory: Patient presented with left middle cerebral artery distribution stroke concerning for embolic origin. Question raised regarding possible atrial fi brillation during emergency room evaluation. Telemetry reviewed and no evidence of atrial fibrillation captured. Frequent ventricular ectopy and atrial ectopy during initial presentation. No cardiac source of embolus on echocardiogram Recommendations: Dual antiplatelet therapy as ordered. Beta-rizwan recently reduced due to bradycardia would increase Toprol back to 37.5 mg once per day. ZIO Patch monitor 14-day after hospital discharge to further assess for atrial arrhythmias. Patient previously assessed on multiple occasions in the past with paroxysmal atrial tachycardia observed but no atrial fibrillation/flutter documented (2) Paroxysmal atrial tachycardia: (3) HTN (hypertension): History of Present Illness Reason for Consultation: Stroke, assess heart rhythm Requesting Physician: Dr. Silvestre Attending Physician: Humza Silvestre, DO History of Present Illness Patient is a 74-year-old female with past history of 1. 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 with hypertensive heart disease, chronic low normal LV function 2. Hyperlipidemia 3. Chronic ventricular ectopy 4. Paroxysmal supraventricular tachycardia 5. CKD stage III 6. Type 2 diabetes mellitus Patient admitted with acute onset left-sided and left arm weakness, stroke with improving symptoms. Per report in ER possible atrial fibrillation observed. Patient notes recent reduction in beta-rizwan dosing due to asymptomatic bradycardia. She denies syncope or near syncope. Has had no prior history of TIA or stroke. Notes no fevers chills or unexplained infections. No bleeding difficulties. No melena medication dysuria hematuria. Appetite and weight are generally good. She is active to a modest level degree about her home. No change in overall exercise capacity. Denies symptoms of tachypalpitations or prior history of atrial fibrillation. Appetite and weight have been stable. No difficulty taking medications. Since admission patient notes left arm weakness has improved. Telemetry reviewed including ER telemetry. Rhythm was sinus and sinus bradycardia with frequent ventricular ectopy but no atrial fibrillation or atrial tachycardia Allergies Allergy/AdvReac Type Severity Reaction Status Date / Time codeine Allergy Intermediate "UNSURE IF Verified 06/11/19 19:16 STILL ALLERGIC" Home Medications Home Medications Medication Instructions Recorded Confirmed Type acetaminophen [Tylenol] 325 mg PO Q6H PRN 06/11/19 02/23/20 History albuterol sulfate 2 puff INHALATION Q6H PRN 06/11/19 02/23/20 History allopurinol 100 mg PO QAM 06/11/19 02/23/20 History aspirin 0 mg PO QAM 06/11/19 02/23/20 History atorvastatin 10 mg PO QPM 06/11/19 02/23/20 History glipizide 2.5 mg PO DAILYBB 06/11/19 02/23/20 History lisinopril 5 mg PO QAM 06/11/19 02/23/20 History lorazepam 0.5 mg PO TID PRN 06/11/19 02/23/20 History omeprazole 20 mg PO QAM 06/11/19 02/23/20 History spironolactone 25 mg PO QAM 06/11/19 02/23/20 History metoprolol succinate 25 mg PO DAILY 02/23/20 02/23/20 History Patient History Medical History (Updated 02/24/20 @ 07:31 by Humza Silvestre DO) Atrial fibrillation (Chronic) CKD (chronic kidney disease) stage 3, GFR 30-59 ml/min Degenerative disc disease, cervical Dyslipidemia MELQUIADES (generalized anxiety disorder) GERD without esophagitis Hearing loss History of adenomatous polyp of colon HTN (hypertension) (Chronic) Hypertensive cardiomegaly Paroxysmal atrial tachycardia Type 2 diabetes mellitus Vitamin D deficiency Surgical History (Updated 02/23/20 @ 10:35 by Maryse Rodriguez PA-C) History of arthroplasty of left knee History of carpal tunnel surgery History of cholecystectomy (Resolved) History of D&C History of excision of lesion Back - Dr. Tucker Family History (Updated 02/23/20 @ 10:36 by Maryse Rodriguez PA-C) Other Family history non-contributory Social History Preferred Language: Maori Communication Ability: Effective Hearing Ability: Hard of Hearing [employer] Inspector Required: No Beliefs That Will Affect Care: None marital status: Current Living Situation: Spouse Feels Safe at Home: Yes Safety Concerns: Feels Safe At This Time Smoking Status: Former smoker Hx Alcohol Use: No Hx Substance Use: No Review of Systems Review of Systems: All systems reviewed & are unremarkable except as noted in HPI & below Physical Exam Constitutional: WD/WN, vitals as above Eyes: PERRL, conjunctivae normal, anicteric sclerae ENMT: external ear and nose normal, oropharynx normal Neck: trachea midline, no thyromegaly Respiratory: normal respiratory effort, lungs clear to auscultation Cardiovascular: Rate/Rhythm: regular rate and regular rhythm Heart Sounds: normal S1, normal S2 and + murmur (Grade 1/6 systolic); no gallop Palpation: normal PMI Vessels: normal carotid upstroke and radial pulses present; no JVD and no carotid bruit Extremities: no edema Rare ventricular ectopy Gastrointestinal (Abdomen): normal bowel sounds, soft, nontender, no hepatosplenomegaly Musculoskeletal: no cyanosis or clubbing, extremities motor strength 5/5 Skin: no rashes, warm and dry Neurologic: PERRL, EOMI, accommodation nl, no face palsy, no dysarthria Mild left arm weakness Psychiatric: A+Ox3, euthymic affect Results & Data ([facility]) Vital Signs (Past 12 Hours) Vital Signs Temp Pulse Pulse Pulse Resp BP Pulse Ox 02/24/20 08:00 89 02/24/20 07:19 37 C 73 18 129/67 94 02/24/20 04:37 36.8 C 71 19 132/70 96 02/24/20 00:00 61 02/23/20 23:24 36.6 C 60 18 127/63 94 Pulse Ox 02/24/20 08:00 95 02/24/20 07:19 02/24/20 04:37 02/24/20 00:00 02/23/20 23:24 Laboratory Results Laboratory Results - last 24 hr 02/23/20 02/23/20 02/23/20 11:32 16:26 17:09 WBC RBC Hgb Hct MCV MCH MCHC RDW Std Deviation RDW Coeff of Etta Plt Count MPV Immature Gran % (Auto) Neut % (Auto) Lymph % (Auto) Conway % (Auto) Eos % (Auto) Baso % (Auto) Immature Gran # (Auto) Neut # (Auto) Lymph # (Auto) Conway # (Auto) Eos # (Auto) Baso # (Auto) Sodium Potassium Chloride Carbon Dioxide Anion Gap BUN Creatinine Est Cr Clr Drug Dosing Est GFR ( Amer) Est GFR (Non-Af Amer) BUN/Creatinine Ratio Glucose POC Glucose 120 H 121 H Estimat Average Glucose Hemoglobin A1c Calcium Magnesium 2.4 Triglycerides Cholesterol LDL Cholesterol, Calc VLDL Cholesterol, Calc HDL Cholesterol Cholesterol/HDL Ratio 02/23/20 02/24/20 02/24/20 20:24 05:44 05:44 WBC 7.83 RBC 3.87 L Hgb 13.4 Hct 40.6 MCV 104.9 H MCH 34.6 H MCHC 33.0 RDW Std Deviation 52.9 H RDW Coeff of Etta 13.9 Plt Count 209 MPV 11.6 H Immature Gran % (Auto) 0.1 Neut % (Auto) 57.0 Lymph % (Auto) 29.8 Conway % (Auto) 11.7 Eos % (Auto) 1.1 Baso % (Auto) 0.3 Immature Gran # (Auto) 0.01 Neut # (Auto) 4.46 Lymph # (Auto) 2.33 Conway # (Auto) 0.92 H Eos # (Auto) 0.09 Baso # (Auto) 0.02 Sodium 140 Potassium 3.7 Chloride 109 H Carbon Dioxide 20 L Anion Gap 11.0 BUN 14 Creatinine 1.49 H Est Cr Clr Drug Dosing 31.6 Est GFR ( Amer) 39.7 Est GFR (Non-Af Amer) 34.2 BUN/Creatinine Ratio 9.4 L Glucose 102 H POC Glucose 104 H Estimat Average Glucose Hemoglobin A1c Calcium 9.0 Magnesium Triglycerides 109 Cholesterol 101 LDL Cholesterol, Calc 35 VLDL Cholesterol, Calc 22 HDL Cholesterol 44 Cholesterol/HDL Ratio 2 02/24/20 02/24/20 05:44 07:29 WBC RBC Hgb Hct MCV MCH MCHC RDW Std Deviation RDW Coeff of Etta Plt Count MPV Immature Gran % (Auto) Neut % (Auto) Lymph % (Auto) Conway % (Auto) Eos % (Auto) Baso % (Auto) Immature Gran # (Auto) Neut # (Auto) Lymph # (Auto) Conway # (Auto) Eos # (Auto) Baso # (Auto) Sodium Potassium Chloride Carbon Dioxide Anion Gap BUN Creatinine Est Cr Clr Drug Dosing Est GFR ( Amer) Est GFR (Non-Af Amer) BUN/Creatinine Ratio Glucose POC Glucose 113 H Estimat Average Glucose 123 Hemoglobin A1c 5.9 H Calcium Magnesium Triglycerides Cholesterol LDL Cholesterol, Calc VLDL Cholesterol, Calc HDL Cholesterol Cholesterol/HDL Ratio Diagnostic Findings Echocardiogram: Mild left hypertrophy with mildly reduced overall LV systolic function with frequent ventricular ectopy present during study EF 45%. Aortic sclerosis without stenosis. Intact interatrial septum without intracardiac shunt. No change from prior studies dating back to 2013. (1) HTN (hypertension) 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 type: essential hypertension Qualified Code(s): I10 - Essential (primary) hypertension
--- NOTE | 2020-02-24 10:59 | Discharge Summary ---
Date of Service February 24, 2020 Admission HPI Per Admitting Provider This is a pleasant 74 y/o female with a PMH of diabetes type 2, paroxysmal atrial tachycardia, HTN, CKD3, hypertensive cardiomyopathy, dyslipidemia, gout, and GERD who presents with stroke-like symptoms that have presently resolved. Pt reports waking up around 6 am in her usual state of health. Around 7 am, she went to make her morning coffee and noted left arm heaviness and weakness ("my arm fell in the sink"). She then attempted to walk into the living room to get a tissue but reports her left leg felt weak and she stumbled and fell onto the floor. Denies LOC or hitting her head. At this point, her family called EMS. Per EMS report, pt did have mild slurred speech when they arrived and was noted to be weak in LUE and LLE. A stroke alert was called. By the time, pt was evaluated in the ED, symptoms were noted to be improving. Per pt, she is back to her baseline although nursing did not some left-sided weakness when she ambulated to the bedside commode after arrival. She denies any prior similar s ymptoms previously. Per telestroke consult, pt was not a candidate for TPA but was recommended to continue aspirin and consider dual anti-platelet therapy. Pt states that she takes care of her at home, but that she cannot lift him herself so her son is around and helps her. Admission Exam Per Admitting Provider Constitutional: no fever, no chills and no fatigue Eyes: no diplopia and no worsening vision Ear, Nose, Mouth, Throat: no sore throat and no dysphagia Respiratory: no cough and no dyspnea Cardiovascular: no chest pain, no palpitations, no syncope and no edema Gastrointestinal: no abdominal pain, no nausea, no vomiting and no diarrhea/loose stools Genitourinary: no dysuria, no difficulty urinating and no urinary frequency Musculoskeletal: no back pain and no neck pain Integumentary: no rash Neurologic: as per Subjective / HPI; no seizure-like activity and no headache(s) Psychiatric: no depression and no confusion Principal Diagnosis Acute ischemic cerebrovascular accident (CVA) involving middle cerebral artery territory: Hypomagnesemia: Dyslipidemia: CKD (chronic kidney disease) stage 3, GFR 30-59 ml/min: Type 2 diabetes mellitus: HTN (hypertension): Discharge Exam Gen-AAO x 3, NAD, Afebrile Head-NCAT, EOMI, PERRLA, Anicteric Sclera, No Posterior Pharyngeal Erythema Neck-Supple, No JVD, No Thyromegaly, No Masses, No LAD, No Bruits Lungs-Clear to Auscultation Bilaterally, No Rales, No Rhonchi, No Wheezing, No Crepitus Chest-No S4, +S1, +S2, No S3, No Murmurs, No Rubs, No Gallops, No Ectopy Abdomen-Soft, Bowel Sounds Present, Non Tender, Non Distended, No Hepatomegaly, No Splenomegaly, No Palpable Masses, No Rebound, No Rigidity, No Guarding Musculoskeletal-Full Range of Motion Bilaterally, No CVAT Extremities-No Cyanosis, No Clubbing, No Edema Nuero-Cranial Nerves II-XII grossly intact, Motor WNL, DTRs WNL, Strength WNL, Non Focal Psych-Normal Mood Discharge Data Allergies Allergy/AdvReac Type Severity Reaction Status Date / Time codeine Allergy Intermediate "UNSURE IF Verified 06/11/19 19:16 STILL ALLERGIC" Consultations 02/23/20 09:07 ED Decision to Admit Stat 02/23/20 12:17 Consult Case Management - Discharge Planning Routine Consult Neurology Routine 02/23/20 13:54 Consult Cardiology Routine Ordered Studies 02/23/20 07:57 CT angio head w con Stat CT angio neck with con Stat CT head/brain wo con Stat 02/23/20 12:17 MR brain wo con Routine US carotid doppler BI Routine MRI + R MCA CVA 02/24/20 02/24/20 02/24/20 Range/Units 07:29 05:44 05:44 WBC (4.8-10.8) K/uL RBC (4.2-5.4) M/uL Hgb (12.0-16.0) g/dL Hct (37-47) % MCV (80-100) fL MCH (25-34) pg MCHC (32-36) g/dL RDW Std Deviation (36.4-46.3) fL RDW Coeff of Etta (11.5-14.5) % Plt Count (130-400) K/uL MPV (7.4-10.4) fL Immature Gran % (Auto) % Neut % (Auto) % Lymph % (Auto) % Denali % (Auto) % Eos % (Auto) % Baso % (Auto) % Immature Gran # (Auto) (0.00-0.02) K/uL Neut # (Auto) (1.4-6.5) K/uL Lymph # (Auto) (1.2-3.4) K/uL Denali # (Auto) (0.11-0.59) K/uL Eos # (Auto) (0-0.5) K/uL Baso # (Auto) (0-0.2) K/uL Sodium 140 (136-145) mmol/L Potassium 3.7 (3.5-5.1) mmol/L Chloride 109 H (98-107) mmol/L Carbon Dioxide 20 L (21-32) mmol/L Anion Gap 11.0 (3-11) BUN 14 (7-18) mg/dl Creatinine 1.49 H (0.6-1.2) mg/dl Est Cr Clr Drug Dosing 31.6 ml/min Est GFR ( Amer) 39.7 Est GFR (Non-Af Amer) 34.2 BUN/Creatinine Ratio 9.4 L (10-20) Glucose 102 H (70-99) mg/dl POC Glucose 113 H (70-99) mg/dl Estimat Average Glucose 123 mg/dl Hemoglobin A1c 5.9 H (4.5-5.6) % Calcium 9.0 (8.5-10.1) mg/dl Magnesium (1.8-2.4) mg/dl Triglycerides 109 (0-150) mg/dl Cholesterol 101 (0-200) mg/dl LDL Cholesterol, Calc 35 mg/dl VLDL Cholesterol, Calc 22 mg/dl HDL Cholesterol 44 mg/dl Cholesterol/HDL Ratio 2 02/24/20 02/23/20 02/23/20 Range/Units 05:44 20:24 17:09 WBC 7.83 (4.8-10.8) K/uL RBC 3.87 L (4.2-5.4) M/uL Hgb 13.4 (12.0-16.0) g/dL Hct 40.6 (37-47) % MCV 104.9 H (80-100) fL MCH 34.6 H (25-34) pg MCHC 33.0 (32-36) g/dL RDW Std Deviation 52.9 H (36.4-46.3) fL RDW Coeff of Etta 13.9 (11.5-14.5) % Plt Count 209 (130-400) K/uL MPV 11.6 H (7.4-10.4) fL Immature Gran % (Auto) 0.1 % Neut % (Auto) 57.0 % Lymph % (Auto) 29.8 % Denali % (Auto) 11.7 % Eos % (Auto) 1.1 % Baso % (Auto) 0.3 % Immature Gran # (Auto) 0.01 (0.00-0.02) K/uL Neut # (Auto) 4.46 (1.4-6.5) K/uL Lymph # (Auto) 2.33 (1.2-3.4) K/uL Denali # (Auto) 0.92 H (0.11-0.59) K/uL Eos # (Auto) 0.09 (0-0.5) K/uL Baso # (Auto) 0.02 (0-0.2) K/uL Sodium (136-145) mmol/L Potassium (3.5-5.1) mmol/L Chloride (98-107) mmol/L Carbon Dioxide (21-32) mmol/L Anion Gap (3-11) BUN (7-18) mg/dl Creatinine (0.6-1.2) mg/dl Est Cr Clr Drug Dosing ml/min Est GFR ( Amer) Est GFR (Non-Af Amer) BUN/Creatinine Ratio (10-20) Glucose (70-99) mg/dl POC Glucose 104 H (70-99) mg/dl Estimat Average Glucose mg/dl Hemoglobin A1c (4.5-5.6) % Calcium (8.5-10.1) mg/dl Magnesium 2.4 (1.8-2.4) mg/dl Triglycerides (0-150) mg/dl Cholesterol (0-200) mg/dl LDL Cholesterol, Calc mg/dl VLDL Cholesterol, Calc mg/dl HDL Cholesterol mg/dl Cholesterol/HDL Ratio 02/23/20 02/23/20 Range/Units 16:26 11:32 WBC (4.8-10.8) K/uL RBC (4.2-5.4) M/uL Hgb (12.0-16.0) g/dL Hct (37-47) % MCV (80-100) fL MCH (25-34) pg MCHC (32-36) g/dL RDW Std Deviation (36.4-46.3) fL RDW Coeff of Etta (11.5-14.5) % Plt Count (130-400) K/uL MPV (7.4-10.4) fL Immature Gran % (Auto) % Neut % (Auto) % Lymph % (Auto) % [place] % (Auto) % Eos % (Auto) % Baso % (Auto) % Immature Gran # (Auto) (0.00-0.02) K/uL Neut # (Auto) (1.4-6.5) K/uL Lymph # (Auto) (1.2-3.4) K/uL Den[place] # (Auto) (0.11-0.59) K/uL Eos # (Auto) (0-0.5) K/uL Baso # (Auto) (0-0.2) K/uL Sodium (136-145) mmol/L Potassium (3.5-5.1) mmol/L Chloride (98-107) mmol/L Carbon Dioxide (21-32) mmol/L Anion Gap (3-11) BUN (7-18) mg/dl Creatinine (0.6-1.2) mg/dl Est Cr Clr Drug Dosing ml/min Est GFR ( Amer) Est GFR (Non-Af Amer) BUN/Creatinine Ratio (10-20) Glucose (70-99) mg/dl POC Glucose 121 H 120 H (70-99) mg/dl Estimat Average Glucose mg/dl Hemoglobin A1c (4.5-5.6) % Calcium (8.5-10.1) mg/dl Magnesium (1.8-2.4) mg/dl Triglycerides (0-150) mg/dl Cholesterol (0-200) mg/dl LDL Cholesterol, Calc mg/dl VLDL Cholesterol, Calc mg/dl HDL Cholesterol mg/dl Cholesterol/HDL Ratio Hospital Course (1) Acute ischemic cerebrovascular accident (CVA) involving middle cerebral artery territory: Per pt, symptoms completely resolved but per nursing, some residual weakness on left side when pt ambulated to bedside commode. - Continue to monitor with neuro checks. - Brain MRI +CVA, carotid duplex negative - Telemetry - per ED RN, pt intermittently in atrial fibrillation although pt was in NSR with ectopy when seen. Per review of outpt notes, pt's metoprolol was recently decreased from 50 mg to 25 mg daily due to bradycardia. - Check ECHO - Passed bedside speech eval in ED - AHA Diabetic diet, aspiration precautions - PT/OT consults - Case management evaluation - pt insistent about going directly home, was resistant to the possibility of rehab - Continue aspirin 81 mg daily, added Plavix 75 mg daily per recommendation of telestroke provider. - No NOAC needed, no AFIB on any strips Change to inpatient status, DC Home today c [facility] HPT Labs checked (2) Hypomagnesemia: - Given IV magnesium in ED (3) Dyslipidemia: - Increase Atorvastatin from 10 mg to 40 mg daily (4) CKD (chronic kidney disease) stage 3, GFR 30-59 ml/min: Thought to be multifactorial due to DM, HTN, age. Baseline creatinine ~1.6 (5) Type 2 diabetes mellitus: - Resume home regimen (6) HTN (hypertension): - Increase BB to 37.5 mg, ZIO Patch (7) Paroxysmal atrial tachycardia: Patient did not have AFIB according to all of the strips DC home today c HHC/HPT Total Time Total Time Spent Total Time Spent (In Minutes): 45 mins Total Time Includes: Examination of the Patient, Discharge Planning, Medication Reconciliation and Communication With Other Providers Discharge Plan Discharge Items Patient Disposition: Home - Home Health Services Reason For Visit: tia Discharge Diagnosis: Acute ischemic cerebrovascular accident (CVA) involving middle cerebral artery territory: Hypomagnesemia: Dyslipidemia: CKD (chronic kidney disease) stage 3, GFR 30-59 ml/min: Type 2 diabetes mellitus: HTN (hypertension): Condition on Discharge: Good Activity: Resume your previous activity Bathing: No limitations Exercise/Sports: None Driving/Machine Use: No limitations Weightbearing: Full weightbearing Non-emergency contact: Primary Care Provider and Neurologist Call non-emergency contact if: you have any medication questions Follow-up/Referrals: Kasandra Antunez DO [Primary Care Provider] - 02/28/20 10:25 am Martin Blanchard DO [Slat Basket Maker Helper] - Abram Power MD [Physician] - Diet: Carb Consistent or DM2 Addtl Attending Provider Instructions: Follow up with Tono Mclaughlin and [place] Pending Studies at Discharge: No Stand-Alone Forms: My [facility], Smoking Cessation Medications and DC Order Prescriptions: New clopidogrel 75 mg Tablet 75 mg PO QAM Qty: 30 RF: 0 atorvastatin 40 mg Tablet 40 mg PO QPM Qty: 30 RF: 0 metoprolol succinate 25 mg Tablet Extended Release 24 Hr 37.5 mg PO DAILY Qty: 60 RF: 0 famotidine [Pepcid] 20 mg tablet 20 mg PO BID 28 Days Qty: 56 RF: 0 Continued allopurinol 100 mg tablet 100 mg PO QAM RF: 0 aspirin 81 mg Tablet,Delayed Release (Dr/Ec) 0 mg PO QAM RF: 0 spironolactone 25 mg tablet 25 mg PO QAM RF: 0 lorazepam 0.5 mg tablet 0.5 mg PO TID PRN (Reason: Anxiety) RF: 0 glipizide 2.5 mg tablet extended release 24hr 2.5 mg PO DAILYBB RF: 0 lisinopril 5 mg tablet 5 mg PO QAM RF: 0 albuterol sulfate 90 mcg/actuation Hfa Aerosol Inhaler 2 puff INHALATION Q6H PRN (Reason: Shortness Of Breath Or Wheezing) RF: 0 acetaminophen [Tylenol] 325 mg Capsule 325 mg PO Q6H PRN (Reason: pain/fever) RF: 0 Discontinued metoprolol succinate 25 mg tablet extended release 24 hr 25 mg PO DAILY RF: 0 atorvastatin 10 mg tablet 10 mg PO QPM RF: 0 omeprazole 20 mg capsule,delayed release(DR/EC) 20 mg PO QAM RF: 0 Discharge Orders: Discharge Order (Routine); Ordered 02/24/20 Ordered By: Humza Silvestre Admission Data Admit Date/Time: 02/24/20 07:40 Attending Provider: Humza Silvestre Admit Provider: Humza Silvestre Primary Care Provider: Kasandra Antunez. Other Providers: Humza Silvestre ; Abram Power ; Anjel Kerr ; Dimitri Villalpando ; Brian Anne ; Yobany La ; Martin Blanchard ; Roberto Winter ; Maggie Sepulveda ; Ailyn Mcelroy ; Arron Montez
[2020-02-24 11:04] VITALS: BP 131/66; PULSE 65; TEMP 98.4; O2SAT 96
[2020-02-24] MEDS ORDERED: ATORVASTATIN 40 MG TAB PO SCH (21:00)
== END 2020-02-24 13:01 | disposition home health service (06) | DRG 65 ==
LOC: 2S 08:04 → ED 08:04 → 2S 10:03

== ENCOUNTER 2020-08-12 09:50 | Inpatient (IN) ==
[2020-08-12] MEDS ORDERED: ONDANSETRON INJ 2 MG/ML 2 ML VIAL IV STA (10:15)
[2020-08-12] MEDS ORDERED: SODIUM CHLORIDE 0.9% 1000ML 500 ML IV ONE (10:15)
[2020-08-12] MEDS ORDERED: CHOLESTYRAMINE LIGHT 4 GM PKT PO STA (10:16)
[2020-08-12 10:23] LABS: Basophils # (auto) 0.03 K/uL (0-0.2); Basophils % (auto) 0.3 %; Eosinophils # (auto) 0.03 K/uL (0-0.5); Eosinophils % (auto) 0.3 %; Hematocrit (blood only) 41.7 % (37-47); Hemoglobin 13.9 g/dL (12.0-16.0); Immature Granulocytes # (auto) 0.02 K/uL (0.00-0.02); Immature Granulocytes % (auto) 0.2 %; Lymphocytes # (auto) 3.07 K/uL (1.2-3.4); Lymphocytes % (auto) 29.6 %; Mean Corpuscular Hemoglobin 35.5 pg (25-34); Mean Corpuscular Hgb Conc 33.3 g/dL (32-36); Mean Corpuscular Volume 106.6 fL (80-100); Monocytes # (auto) 1.03 K/uL (0.11-0.59); Monocytes % (auto) 9.9 %; Neutrophils # (auto) 6.19 K/uL (1.4-6.5); Neutrophils % (auto) 59.7 %; Platelet Count 253 K/uL (130-400); RDW Coefficient of Variation 13.6 % (11.5-14.5); RDW Standard Deviation 52.9 fL (36.4-46.3); Red Blood Count 3.91 M/uL (4.2-5.4); White Blood Count 10.37 K/uL (4.8-10.8)
--- NOTE | 2020-08-12 10:25 | XRay Report ---
XR chest 1V portable CLINICAL HISTORY: Atypical chest pain COMPARISON STUDY: June 15, 2020 FINDINGS: The cardiac and mediastinal contours are normal. There is no evidence of focal pulmonary co nsolidation. There is no evidence of failure. No pleural effusions are visualized.[ IMPRESSION: No active disease in the chest. ACT 112: Negative or not required by law. Electronically signed by: Parminder Hassan M.D. 08/12/2020 10:24 AM
[2020-08-12 10:57] LABS: Alanine Aminotransferase 22 U/L (12-78); Albumin Globulin Ratio 1.1 (0.9-2); Albumin Level 3.9 gm/dl (3.4-5.0); Alkaline Phosphatase 155 U/L (45-117); BUN Creatinine Ratio 12.1 (10-20); Bilirubin,Total 1.3 mg/dl (0.2-1); Blood Urea Nitrogen 18 mg/dl (7-18); Calcium 9.8 mg/dl (8.5-10.1); Carbon Dioxide 23 mmol/L (21-32); Chloride 107 mmol/L (98-107); Creatinine Clr Calc Pharmacy 28.1 ml/min; Est GFR (African American) 39.4; Globulin 3.7 gm/dl (2.5-4.0); Glucose 133 mg/dl (70-99); Lipase 283 U/L (73-393); Sodium 137 mmol/L (136-145); Total Protein 7.6 gm/dl (6.4-8.2); Troponin I < 0.015 ng/ml (0-0.045)
[2020-08-12] MEDS ORDERED: IOVERSOL 100ml IV ONE (11:23)
--- NOTE | 2020-08-12 12:08 | CT Scan Report ---
ABDOMEN AND PELVIS CT WITH IV CONTRAST CT DOSE: 306.31 mGy.cm HISTORY: Acute nausea and vomiting Pt c/o N V TECHNIQUE: Multiaxial CT images of the abdomen and pelvis were performed following the IV administrat ion of 94 cc of Optiray 320, A dose lowering technique was utilized adhering to the principles of [place] SHANA. COMPARISON STUDY: CT abdomen and pelvis 06/11/2019. FINDINGS: Mild subsegmental bibasilar atelectasis. No pneumatosis or pneumoperitoneum. Study is mildly motion d egraded. Mild cardiomegaly. The spleen, pancreas and adrenal glands are unremarkable. Cholecystectomy . Unremarkable liver. Patency of the hepatic and portal veins. Bilateral renal cysts measure up to 3. 5 cm on the left. No hydronephrosis. Unremarkable urinary bladder. Subcentimeter cystic foci are note d involving the left fundal uterus measuring up to 10 mm. Thickening of the fundal endometrium measur es up to 9 mm. No adnexal mass lesions identified. Mixed plaque of the abdominal aorta without aneury sm. There is no adenopathy. No bowel obstruction or bowel wall thickening. Colonic diverticulosis without acute diverticulitis. N ormal appendix. There are a few scattered small bowel air-fluid levels. Subcentimeter metallic densit y focus projects anterior to the transverse colon, unchanged. Soft tissues and breast parenchyma are unremarkable. Demineralized appearance of the bones. Degenerative changes of the spine, pelvis and hi ps. 2.0 cm sclerotic lesion of the right iliac bone is unchanged and likely benign. IMPRESSION: 1. No bowel obstruction or bowel wall thickening. Scattered small bowel air-fluid levels may be physi ologic or reflect a mild enteritis. 2. Colonic diverticulosis without acute diverticulitis. 3. Cholecystectomy. 4. Pathologic thickening of the fundal endometrium measures up to 10 mm. Additionally, there are a fe w subcentimeter cystic foci of the left fundal uterus. Correlation with a nonemergent follow-up pelvi c ultrasound recommended. ACT 112: Negative or not required by law. The above report was generated using voice recognition software. It may contain grammatical, syntax o r spelling errors. Electronically signed by: Efrain Alcocer M.D. 08/12/2020 12:06 PM
[2020-08-12] MEDS ORDERED: METOPROLOL SUCC 50MG EXT REL TAB PO STA (12:25)
[2020-08-12] MEDS: MAGNESIUM SULFATE / D5W 1 GM/100 ML BAG IV SCH ×4 (12:37→14:38)
[2020-08-12] MEDS: METOPROLOL TARTRATE 1 MG/ML VIAL IV PRN ×3 (12:37→13:41)
--- NOTE | 2020-08-12 13:30 | Electrocardiogram Report ---
Test Reason : Blood Pressure : / mmHG Vent. Rate : 050 BPM Atrial Rate : 050 BPM P-R Int : 176 ms QRS Dur : 118 ms QT Int : 500 ms P-R-T Axes : 085 -49 064 degrees QTc Int : 455 ms Poor data quality, interpretation may be adversely affected Sinus bradycardia with occasional Premature ventricular complexes Left axis deviation Old Anteroseptal infarct Abnormal ECG When compared with ECG of 30-JUN-2020 22:44, No significant change Confirmed by Hugh Stephen ([id number]) on 08/12/2020 1:29:57 PM Referred By: REFERRED SELF Confirmed By:Hugh Stephen
[2020-08-12 13:32] LABS: Potassium 4.4 mmol/L (3.5-5.1)
[2020-08-12 14:19] LABS: Magnesium 2.8 mg/dl (1.8-2.4)
--- NOTE | 2020-08-12 14:34 | History & Physical Report ---
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 -Afebrile, VSS. CT abd/pelvis without evidence of obstruction or bowel wall thickening. Scattered small bowel air-fluid levels may be physiologic or reflect a mild enteritis -Recent COVID + community member of [facility] - covid test pending -Stool cx and c diff pending. Symptoms have improved today -Electrolytes wnl. Gentle IV fluids, antiemetics as needed (4) Atrial fibrillation with RVR: Found to have A Fib with RVR since arrival with HR fluctuating from high 50s to 130s and back to 58 -Given missed home dose of metoprolol succinate 37.5mg in ED along with IV Lopressor 5 mg x 1 with conversion back to sinus rhythm -HR currently 48. Continue to monitor on telemetry. Routine cardiology consult -Does have appointment with Dr. Mcelroy scheduled for 08/14 (5) History of right MCA stroke: Continue aspirin, Plavix (6) CKD (chronic kidney disease) stage 3, GFR 30-59 ml/min: Kidney function at baseline. Continue monitoring with daily BMP (7) Type 2 diabetes mellitus: Diet controlled (8) HTN (hypertension): Continue Toprol, lisinopril, spironolactone (9) Generalized weakness: Continue SSRI. Weaned dose of Ativan last month from TID but still takes 0.5 mg daily as needed (10) Dyslipidemia: Continue statin DVT Ppx: SQ heparin Code status: DNR per discussion with patient, family at bedside PCP: [facility] Dispo: Admitted to PCU. Discharge planning ordered. Patient seen in collaboration with Dr. Layne. Please see addendum. 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 Has had decreased appetite and some generalized weakness. Family also notes worsening confusion and was seen in outpatient setting for dementia work was completed for license removal. Patient lives with and receives some help from his care provider. Has been using her 's walker to ambulate due to weakness. Family member at bedside helps with providing history since patient is hard of hearing and pleasantly confused. Currently feels well without nausea or abdominal pain. Patient denies any fever, chills or malaise. Denies any chest pain or palpitations or shortness of breath. No lightheadedness, headache, visual changes, dysuria or constipation. Allergies Allergy/AdvReac Type Severity Reaction Status Date / Time codeine Allergy Intermediate "UNSURE IF Verified 08/12/20 10:40 STILL ALLERGIC" Home Medications Home Medications Medication Instructions Recorded Confirmed Type acetaminophen [Tylenol] 325 mg PO Q6H PRN 06/11/19 08/12/20 History allopurinol 100 mg PO QAM 06/11/19 08/12/20 History aspirin 81 mg PO QAM 06/11/19 08/12/20 History lisinopril 5 mg PO QAM 06/11/19 08/12/20 History lorazepam 0.5 mg PO DAILY PRN 06/11/19 08/12/20 History spironolactone 25 mg PO QAM 06/11/19 08/12/20 History atorvastatin 40 mg PO QPM #30 tab 02/24/20 08/12/20 Rx clopidogrel 75 mg PO QAM #30 tab 02/24/20 08/12/20 Rx metoprolol succinate 37.5 mg PO QAM 06/15/20 08/12/20 History famotidine 20 mg PO BID 06/29/20 08/12/20 History escitalopram oxalate 10 mg PO PM 08/12/20 08/12/20 History Past Med/Surg History Medical History (Updated 08/12/20 @ 15:00 by Rosy Garcia PA-C) Atrial fibrillation CKD (chronic kidney disease) stage 3, GFR 30-59 ml/min Degenerative disc disease, cervical Dyslipidemia [place]ADES (generalized anxiety disorder) GERD without esophagitis Hearing loss History of adenomatous polyp of colon History of right MCA stroke HTN (hypertension) Hypertensive cardiomegaly Type 2 diabetes mellitus Vitamin D deficiency Surgical History History of arthroplasty of left knee History of carpal tunnel surgery History of cholecystectomy History of D&C History of excision of lesion Back - Dr. Tucker Family History Other Diabetes Heart disease Social History Smoking Status: Never smoker Second Hand Exposure: No; Do You Dip or Chew Tobacco: No; Tobacco Cessation Education Requested by Patient: No Hx Alcohol Use: Yes Hx Substance Use: Yes Preferred Language: Turkmen Communication Ability: Impaired Hearing Ability: Hard of Hearing Veneer Grader Required: No Beliefs That Will Affect Care: None marital status: Current Living Situation: Spouse Other Information That Helps Us Care for You: No Feels Safe at Home: Yes Safety Concerns: Feels Safe At This Time Assistive Devices: None Review of Systems Review of Systems: At least ten systems reviewed and negative except as noted in the HPI. Physical Exam Physical Exam: General Appearance: WD/WN, vitals as above, NAD, sitting up in bed, pleasant, conversing easily Head: normocephalic, atraumatic Eyes: normal inspection, PERRL, conjunctivae normal, anicteric sclerae ENT: hard of hearing, external ear and nose normal, oropharynx normal Neck: normal visual inspection, trachea midline, no thyromegaly Respiratory: normal respiratory effort, lungs clear to auscultation, no wheeze, rales, rhonchi. No accessory muscle use Cardiovascular: bradycardia, no murmur appreciated, normal peripheral pulses, no BLE edema. Vessels: no JVD Chest: normal inspection of chest Abdomen/GI: normal bowel sounds, soft, nontender, no hepatosplenomegaly Extremities/Musculoskeletal: no cyanosis or clubbing, extremities motor strength 5/5 Neurologic: PERRL, EOMI, accommodation nl, no face palsy, no dysarthria, CN's II-XI intact bilaterally and moves all extremities Psychiatric: A+Ox3, not to situation, euthymic affect Skin: no rashes, normal color, warm/dry Results & Data Results & Data ([facility]) Vital Signs (Past 12 Hours) Vital Signs Temp Pulse Pulse Resp BP BP Pulse Ox 08/12/20 14:15 58 L 17 98 08/12/20 14:04 126 H 20 135/109 H 97 08/12/20 14:00 119 H 16 135/109 H 97 08/12/20 13:46 128 H 16 134/109 H 97 08/12/20 13:45 123 H 18 97 08/12/20 13:41 130 H 151/113 H 08/12/20 13:39 129 H 130 H 21 151/113 H 151/113 H 96 08/12/20 13:30 139 H 23 08/12/20 13:15 121 H 30 H 96 08/12/20 13:00 127 H 22 144/91 H 96 08/12/20 12:45 126 H 21 96 08/12/20 12:37 125 H 129/89 08/12/20 12:30 123 H 24 129/98 96 08/12/20 12:20 129 H 25 H 122/72 08/12/20 12:00 119 H 28 H 91 08/12/20 11:33 66 21 94 08/12/20 11:01 47 L 24 182/92 H 97 08/12/20 11:00 52 L 98 08/12/20 10:54 53 L 21 180/116 H 98 08/12/20 10:30 52 L 98 08/12/20 10:00 48 L 23 95 08/12/20 09:59 36.5 C 57 L 18 182/77 H 97 08/12/20 09:58 53 L 182/77 H 92 Laboratory Results Short CBC 08/12/20 08/12/20 08/12/20 Range/Units 10:15 10:15 11:55 WBC 10.37 (4.8-10.8) K/uL RBC 3.91 L (4.2-5.4) M/uL Hgb 13.9 (12.0-16.0) g/dL Hct 41.7 (37-47) % MCV 106.6 H (80-100) fL MCH 35.5 H (25-34) pg MCHC 33.3 (32-36) g/dL RDW Std Deviation 52.9 H (36.4-46.3) fL RDW Coeff of Etta 13.6 (11.5-14.5) % Plt Count 253 (130-400) K/uL MPV 12.0 H (7.4-10.4) fL Immature Gran % (Auto) 0.2 % Neut % (Auto) 59.7 % Lymph % (Auto) 29.6 % [place] % (Auto) 9.9 % Eos % (Auto) 0.3 % Baso % (Auto) 0.3 % Neut # (Auto) 6.19 (1.4-6.5) K/uL Lymph # (Auto) 3.07 (1.2-3.4) K/uL [place] # (Auto) 1.03 H (0.11-0.59) K/uL Eos # (Auto) 0.03 (0-0.5) K/uL Baso # (Auto) 0.03 (0-0.2) K/uL Immature Gran # (Auto) 0.02 (0.00-0.02) K/uL Sodium 137 (136-145) mmol/L Potassium Cancelled (3.5-5.1) mmol/L Chloride 107 (98-107) mmol/L Carbon Dioxide 23 (21-32) mmol/L Anion Gap 7.0 (3-11) BUN 18 (7-18) mg/dl Creatinine 1.50 H (0.6-1.2) mg/dl Est Cr Clr Drug Dosing 28.1 ml/min Est GFR ( Amer) 39.4 Est GFR (Non-Af Amer) 34.0 BUN/Creatinine Ratio 12.1 (10-20) Glucose 133 H (70-99) mg/dl Calcium 9.8 (8.5-10.1) mg/dl Phosphorus (2.5-4.9) mg/dl Magnesium (1.8-2.4) mg/dl Total Bilirubin 1.3 H (0.2-1) mg/dl AST Cancelled (15-37) U/L ALT 22 (12-78) U/L Alkaline Phosphatase 155 H (45-117) U/L Troponin I < 0.015 (0-0.045) ng/ml Total Protein 7.6 (6.4-8.2) gm/dl Albumin 3.9 (3.4-5.0) gm/dl Globulin 3.7 (2.5-4.0) gm/dl Albumin/Globulin Ratio 1.1 (0.9-2) Lipase 283 (73-393) U/L 08/12/20 Range/Units 13:13 WBC (4.8-10.8) K/uL RBC (4.2-5.4) M/uL Hgb (12.0-16.0) g/dL Hct (37-47) % MCV (80-100) fL MCH (25-34) pg MCHC (32-36) g/dL RDW Std Deviation (36.4-46.3) fL RDW Coeff of Etta (11.5-14.5) % Plt Count (130-400) K/uL MPV (7.4-10.4) fL Immature Gran % (Auto) % Neut % (Auto) % Lymph % (Auto) % [place] % (Auto) % Eos % (Auto) % Baso % (Auto) % Neut # (Auto) (1.4-6.5) K/uL Lymph # (Auto) (1.2-3.4) K/uL [place] # (Auto) (0.11-0.59) K/uL Eos # (Auto) (0-0.5) K/uL Baso # (Auto) (0-0.2) K/uL Immature Gran # (Auto) (0.00-0.02) K/uL Sodium (136-145) mmol/L Potassium 4.4 (3.5-5.1) mmol/L Chloride (98-107) mmol/L Carbon Dioxide (21-32) mmol/L Anion Gap (3-11) BUN (7-18) mg/dl Creatinine (0.6-1.2) mg/dl Est Cr Clr Drug Dosing ml/min Est GFR ( Amer) Est GFR (Non-Af Amer) BUN/Creatinine Ratio (10-20) Glucose (70-99) mg/dl Calcium (8.5-10.1) mg/dl Phosphorus 3.0 (2.5-4.9) mg/dl Magnesium 2.8 H (1.8-2.4) mg/dl Total Bilirubin (0.2-1) mg/dl AST 13 L (15-37) U/L ALT (12-78) U/L Alkaline Phosphatase (45-117) U/L Troponin I (0-0.045) ng/ml Total Protein (6.4-8.2) gm/dl Albumin (3.4-5.0) gm/dl Globulin (2.5-4.0) gm/dl Albumin/Globulin Ratio (0.9-2) Lipase (73-393) U/L BMP 08/12/20 08/12/20 08/12/20 10:15 11:55 13:13 Sodium 137 Potassium Cancelled 4.4 Chloride 107 Carbon Dioxide 23 BUN 18 Creatinine 1.50 H Glucose 133 H Calcium 9.8 Cardiac Enzymes 08/12/20 Range/Units 10:15 Troponin I < 0.015 (0-0.045) ng/ml Liver Function 08/12/20 08/12/20 08/12/20 Range/Units 10:15 11:55 13:13 Total Bilirubin 1.3 H (0.2-1) mg/dl AST Cancelled 13 L (15-37) U/L ALT 22 (12-78) U/L Alkaline Phosphatase 155 H (45-117) U/L Albumin 3.9 (3.4-5.0) gm/dl ECG Rhythm: sinus bradycardia Findings: + PVC Code Status & VTE Plan VTE Prophylaxis Plan VTE Prophylaxis will be ordered: Yes Supervising Physician Co-Signing Physician Notes Attending Addendum: care coordinated with CRISSY Garcia please refer to her notes for full details, I agree with her notes patient seen and examined, records reviewed by myself as well on exam, patient seen resting in bed, comfortable denies chest pain, palpitations ,nausea, dyspnea sinus ryhthm on Tele no other symptoms VS noted and reviewed oriented x1, not in distress, speaks in sentences with no effort nor accessory muscle use normal rate, regular rhythm, no murmurs clear breath sounds bilaterally non distended, soft, nontender no bipedal edema, erythema, warmth no neuro deficits WBC 10.3 Hg 13.9 Crea 1.5 ASSESSMENT AND PLAN NAUSEA/VOMITING, DIARRHEA 1. No bowel obstruction or bowel wall thickening. Scattered small bowel air- fluid levels may be physiologic or reflect a mild enteritis. 2. Colonic diverticulosis without acute diverticulitis. 3. Cholecystectomy. 4. Pathologic thickening of the fundal endometrium measures up to 10 mm. Additionally, there are a few subcentimeter cystic foci of the left fundal uterus. Correlation with a nonemergent follow-up pelvic ultrasound recommended. C diff pending Urine culture pending check Pelvic US PAROXYSMAL A FIB likely secondary to above back to SR after usual PO Metoprolol and additional IV Metoprolol other diagnoses and plan of care as per CRISSY Garcia's notes Vince Layne MD (1) Type 2 diabetes mellitus Chronic kidney disease stage: stage 3 (moderate) Diabetes mellitus complication detail: with chronic kidney disease Diabetes mellitus complication status: with kidney complications Diabetes mellitus intermediate designer insulin use: without intermediate designer use Qualified Code(s): 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 (2) HTN (hypertension) 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 type: essential hypertension Qualified Code(s): I10 - Essential (primary) hypertension (3) Vomiting Nausea presence: with nausea Vomiting Intractability: non-intractable Vomiting type: unspecified Qualified Code(s): R11.2 - Nausea with vomiting, unspecified
[2020-08-12 14:41] LABS: Thyroid Stimulating Hormone 1.39 uIu/ml (0.300-4.500)
--- NOTE | 2020-08-12 15:39 | Emergency Department Note ---
History of Present Illness General Chief complaint: Abdominal Pain Time Seen by Provider: 08/12/20 09:59 Source: patient, family (sister), RN notes reviewed and old records reviewed Mode of arrival: ambulatory Limitations: no limitations History of Present Illness Provider complaint: Nausea Onset (ago): day(s) 3 Location: abdomen Radiation: back Severity: mild Pain Consistency: + intermittent and + colicky Maximum Pain Intensity: 4 Current Pain Intensity: 4 Quality: + burning Relieved By: + immobilization Exacerbated By: + movement Associated symptoms: + denies other symptoms; no chest pain, no diaphoresis, no fever/chills, no loss of appetite, no nausea/vomiting and no shortness of breath Treatments prior to arrival: none This is a 74-year-old female who presents the emergency department complaining of nausea. The patient had an appointment with her hand shaper today however skipped the appointment because she was not feeling well. Her sister brought her to the emergency department. Patient is complaining of nausea as well as abdominal pain. She reports it is becoming worse with movement however immobilization makes the pain better. She has not taken anything for the nausea prior to arrival. She denies any chest pain or abdominal pain. Home Medications Home Medications Medication Instructions Recorded Confirmed Type acetaminophen [Tylenol] 325 mg PO Q6H PRN 06/11/19 08/12/20 History allopurinol 100 mg PO QAM 06/11/19 08/12/20 History aspirin 81 mg PO QAM 06/11/19 08/12/20 History lisinopril 5 mg PO QAM 06/11/19 08/12/20 History lorazepam 0.5 mg PO DAILY PRN 06/11/19 08/12/20 History spironolactone 25 mg PO QAM 06/11/19 08/12/20 History atorvastatin 40 mg PO QPM #30 tab 02/24/20 08/12/20 Rx clopidogrel 75 mg PO QAM #30 tab 02/24/20 08/12/20 Rx metoprolol succinate 37.5 mg PO QAM 06/15/20 08/12/20 History famotidine 20 mg PO BID 06/29/20 08/12/20 History escitalopram oxalate 10 mg PO PM 08/12/20 08/12/20 History Allergies Allergy/AdvReac Type Severity Reaction Status Date / Time codeine Allergy Intermediate "UNSURE IF Verified 08/12/20 10:40 STILL ALLERGIC" Past Med/Surg History Medical History Atrial fibrillation CKD (chronic kidney disease) stage 3, GFR 30-59 ml/min Degenerative disc disease, cervical Dyslipidemia M[place]QUIADES (generalized anxiety disorder) GERD without esophagitis Hearing loss History of adenomatous polyp of colon History of right MCA stroke HTN (hypertension) Hypertensive cardiomegaly Type 2 diabetes mellitus Vitamin D deficiency Surgical History History of arthroplasty of left knee History of carpal tunnel surgery History of cholecystectomy History of D&C History of excision of lesion Back - Dr. 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 Beliefs That Will Affect Care: None marital status: Current Living Situation: Spouse Other Information That Helps Us Care for You: No Feels Safe at Home: Yes Safety Concerns: Feels Safe At This Time Assistive Devices: None Review of Systems A total of 10 systems reviewed and were otherwise negative Physical Exam Vital Signs Vital Signs - 24 hr 08/12/20 09:58 08/12/20 09:59 08/12/20 10:00 Temperature 36.5 C Temperature Source Oral Pulse Rate 53 L 57 L 48 L Pulse Rate [Apical] Pulse Rate from SpO2 Sensor 40 L 47 L Pulse Rhythm Regular Pulse Rhythm [Apical] Pulse Strength Normal Respiratory Rate 18 23 Respiratory Effort / Characteristics Non-Labored Respiratory Depth Normal Respiratory Pattern Blood Pressure 182/77 H 182/77 H Blood Pressure [Left Arm] Blood Pressure Mean 134 112 Blood Pressure Mean [Left Arm] Blood Pressure Position Lying Blood Pressure Position [Left Arm] Pulse Oximetry 92 97 95 Oxygen Delivery Method Room Air Sepsis Recent Fever Within 48 Hours No Sepsis New/Unexplained Change in Mental Status No Sepsis Action Taken by Nursing No Action Required 08/12/20 10:24 08/12/20 10:30 08/12/20 10:54 Temperature Temperature Source Pulse Rate 52 L 53 L Pulse Rate [Apical] Pulse Rate from SpO2 Sensor 56 L 70 Pulse Rhythm Pulse Rhythm [Apical] Pulse Strength Respiratory Rate 21 Respiratory Effort / Characteristics Respiratory Depth Respiratory Pattern Blood Pressure 180/116 H Blood Pressure [Left Arm] Blood Pressure Mean 150 Blood Pressure Mean [Left Arm] Blood Pressure Position Blood Pressure Position [Left Arm] Pulse Oximetry 98 98 Oxygen Delivery Method Room Air Sepsis Recent Fever Within 48 Hours Sepsis New/Unexplained Change in Mental Status Sepsis Action Taken by Nursing 08/12/20 11:00 08/12/20 11:01 08/12/20 11:33 Temperature Temperature Source Pulse Rate 52 L 47 L 66 Pulse Rate [Apical] Pulse Rate from SpO2 Sensor 44 L 46 L 72 Pulse Rhythm Pulse Rhythm [Apical] Pulse Strength Respiratory Rate 24 21 Respiratory Effort / Characteristics Respiratory Depth Respiratory Pattern Blood Pressure 182/92 H Blood Pressure [Left Arm] Blood Pressure Mean 137 Blood Pressure Mean [Left Arm] Blood Pressure Position Blood Pressure Position [Left Arm] Pulse Oximetry 98 97 94 Oxygen Delivery Method Sepsis Recent Fever Within 48 Hours Sepsis New/Unexplained Change in Mental Status Sepsis Action Taken by Nursing 08/12/20 12:00 08/12/20 12:20 08/12/20 12:30 Temperature Temperature Source Pulse Rate 119 H 129 H 123 H Pulse Rate [Apical] Pulse Rate from SpO2 Sensor 136 H 126 H Pulse Rhythm Pulse Rhythm [Apical] Pulse Strength Respiratory Rate 28 H 25 H 24 Respiratory Effort / Characteristics Respiratory Depth Respiratory Pattern Blood Pressure 122/72 129/98 Blood Pressure [Left Arm] Blood Pressure Mean 97 102 Blood Pressure Mean [Left Arm] Blood Pressure Position Blood Pressure Position [Left Arm] Pulse Oximetry 91 96 Oxygen Delivery Method Sepsis Recent Fever Within 48 Hours Sepsis New/Unexplained Change in Mental Status Sepsis Action Taken by Nursing 08/12/20 12:37 08/12/20 12:45 08/12/20 13:00 Temperature Temperature Source Pulse Rate 125 H 126 H 127 H Pulse Rate [Apical] Pulse Rate from SpO2 Sensor 124 H 129 H Pulse Rhythm Pulse Rhythm [Apical] Pulse Strength Respiratory Rate 21 22 Respiratory Effort / Characteristics Respiratory Depth Respiratory Pattern Blood Pressure 129/89 144/91 H Blood Pressure [Left Arm] Blood Pressure Mean 125 Blood Pressure Mean [Left Arm] Blood Pressure Position Blood Pressure Position [Left Arm] Pulse Oximetry 96 96 Oxygen Delivery Method Sepsis Recent Fever Within 48 Hours Sepsis New/Unexplained Change in Mental Status Sepsis Action Taken by Nursing 08/12/20 13:15 08/12/20 13:30 08/12/20 13:39 Temperature Temperature Source Pulse Rate 121 H 139 H 129 H Pulse Rate [Apical] 130 H Pulse Rate from SpO2 Sensor 114 H 122 H Pulse Rhythm Pulse Rhythm [Apical] Irregular Pulse Strength Respiratory Rate 30 H 23 21 Respiratory Effort / Characteristics Respiratory Depth Respiratory Pattern Blood Pressure 151/113 H Blood Pressure [Left Arm] 151/113 H Blood Pressure Mean 136 Blood Pressure Mean [Left Arm] 125 Blood Pressure Position Blood Pressure Position [Left Arm] Pulse Oximetry 96 96 Oxygen Delivery Method Room Air Sepsis Recent Fever Within 48 Hours Sepsis New/Unexplained Change in Mental Status Sepsis Action Taken by Nursing 08/12/20 13:41 08/12/20 13:45 08/12/20 13:46 Temperature Temperature Source Pulse Rate 130 H 123 H 128 H Pulse Rate [Apical] Pulse Rate from SpO2 Sensor 132 H 131 H Pulse Rhythm Pulse Rhythm [Apical] Pulse Strength Respiratory Rate 18 16 Respiratory Effort / Characteristics Respiratory Depth Respiratory Pattern Blood Pressure 151/113 H 134/109 H Blood Pressure [Left Arm] Blood Pressure Mean 118 Blood Pressure Mean [Left Arm] Blood Pressure Position Blood Pressure Position [Left Arm] Pulse Oximetry 97 97 Oxygen Delivery Method Sepsis Recent Fever Within 48 Hours Sepsis New/Unexplained Change in Mental Status Sepsis Action Taken by Nursing 08/12/20 14:00 08/12/20 14:04 08/12/20 14:15 Temperature Temperature Source Pulse Rate 119 H 58 L Pulse Rate [Apical] 126 H Pulse Rate from SpO2 Sensor 132 H 55 L Pulse Rhythm Pulse Rhythm [Apical] Regular Pulse Strength Respiratory Rate 16 20 17 Respiratory Effort / Characteristics Non-Labored Spontaneous Respiratory Depth Normal Respiratory Pattern Regular Blood Pressure 135/109 H Blood Pressure [Left Arm] 135/109 H Blood Pressure Mean 121 Blood Pressure Mean [Left Arm] 117 Blood Pressure Position Blood Pressure Position [Left Arm] Semi-fowlers Pulse Oximetry 97 97 98 Oxygen Delivery Method Room Air Sepsis Recent Fever Within 48 Hours Sepsis New/Unexplained Change in Mental Status Sepsis Action Taken by Nursing 08/12/20 14:30 Temperature Temperature Source Pulse Rate 48 L Pulse Rate [Apical] Pulse Rate from SpO2 Sensor 47 L Pulse Rhythm Pulse Rhythm [Apical] Pulse Strength Respiratory Rate 20 Respiratory Effort / Characteristics Respiratory Depth Respiratory Pattern Blood Pressure 141/68 H Blood Pressure [Left Arm] Blood Pressure Mean 98 Blood Pressure Mean [Left Arm] Blood Pressure Position Blood Pressure Position [Left Arm] Pulse Oximetry 96 Oxygen Delivery Method Sepsis Recent Fever Within 48 Hours Sepsis New/Unexplained Change in Mental Status Sepsis Action Taken by Nursing VITAL SIGNS - Vital signs and nursing notes were reviewed. GENERAL - 74-year-old female appearing stated age who is in no acute distress. Communicates well with provider and answers questions appropriately. SKIN - Without rashes. HEAD - NC/AT. EYES - PERRL with EOMI bilaterally. Sclera anicteric. Palpebral conjunctiva pink and moist with no injection noted. EARS - No deformities of external structures noted on gross examination bilaterally. No pain elicited with palpation of the tragus bilaterally. External auditory canals without discharge or otorrhea. Tympanic membranes pearly villalta without retraction or bulging. No fluid or purulent material visualized behind the TM. Handle of malleus, umbo, cone of light, pars tensa/flaccid all easily visualized. NOSE - Midline and without cyanosis. No epistaxis or purulent drainage noted. Septum midline without deviation or septal hematoma noted. MOUTH/OROPHARYNX - Without perioral cyanosis. Buccal mucosa pink and moist and without leukoplakia. Tongue midline with equal elevation of palate bilaterally. No tonsillar hypertrophy, erythema, or exudates noted. dentition noted. NECK - Neck with FROM. Supple to palpation. lymphadenopathy noted. No nuchal rigidity. LUNGS - Chest wall symmetric without accessory muscle use, intercostals retractions, or central cyanosis. Normal vesicular breath sounds CTA B/L. No wheezes, rales, or rhonchi appreciated. CARDIAC - RRR with S1/S2. No murmur, rubs, or gallops appreciated. ABDOMEN - Abdominal contour without pulsations or visible masses. BS normoactive all four quadrants. No tenderness, palpable masses, hepatospl enomegaly, or ascites noted. EXTREMITIES - No clubbing or peripheral cyanosis. No pretibial edema present. +3/5 radial, posterior tibial, and dorsalis pedis pulses palpated throughout. +5/5 strength noted in UE/LE bilaterally. NEUROLOGIC - Cranial nerves II through XII grossly intact. Sensory intact to light touch throughout. Patellar reflexes +2/4. PSYCH - A&Ox3 and cooperates fully with examiner. Pt is very pleasant and interacts well with examiner. Course Administered Medications Allopurinol (Allopurinol 100 Mg Tab) 100 mg PO QAM [facility] Stop: 09/12/20 08:59 Last Admin: 08/14/20 08:59 Dose: 100 mg Documented by: [id number] Admin: 08/13/20 07:54 Dose: 100 mg Documented by: [id number] Atorvastatin Calcium (Atorvastatin 40 Mg Tab) 40 mg PO QPM [facility] Stop: 09/11/20 20:59 Last Admin: 08/13/20 21:05 Dose: 40 mg Documented by: [id number] Admin: 08/12/20 20:14 Dose: 40 mg Documented by: [id number] Clopidogrel Bisulfate (Clopidogrel Bisulfate 75 Mg Tab) 75 mg PO QAM [facility] Stop: 09/12/20 08:59 Last Admin: 08/14/20 08:59 Dose: 75 mg Documented by: [id number] Admin: 08/13/20 07:55 Dose: 75 mg Documented by: [id number] Escitalopram Oxalate (Escitalopram Oxalate 10 Mg Tab) 10 mg PO PM [facility] Stop: 09/11/20 20:59 Last Admin: 08/13/20 21:05 Dose: 10 mg Documented by: [id number] Admin: 08/12/20 20:14 Dose: 10 mg Documented by: [id number] Famotidine (Famotidine 20 Mg Tab) 20 mg PO BID [facility] Stop: 09/11/20 20:59 Last Admin: 08/14/20 08:59 Dose: 20 mg Documented by: [id number] Admin: 08/13/20 21:05 Dose: 20 mg Documented by: [id number] Admin: 08/13/20 07:52 Dose: 20 mg Documented by: [id number] Admin: 08/12/20 20:15 Dose: 20 mg Documented by: [id number] Heparin Sodium/Dextrose (Heparin Sodium/Dextrose) 25,000 units in 500 mls @ 0 mls/hr IV .Q0M [facility]; Protocol Stop: 09/12/20 14:44 Last Titration: 08/14/20 09:36 Dose: 0 units/hr, 0 mls/hr Documented by: [id number] Cosigned by: [id number] Titration: 08/14/20 07:57 Dose: 700 units/hr, 14 mls/hr Documented by: [id number] Cosigned by: [id number] Titration: 08/14/20 07:21 Dose: 0 units/hr, 0 mls/hr Documented by: [id number] Cosigned by: [id number] Titration: 08/14/20 06:35 Dose: 0 units/hr, 0 mls/hr Documented by: [id number] Cosigned by: [id number] Titration: 08/13/20 23:11 Dose: 800 units/hr, 16 mls/hr Documented by: [id number] Cosigned by: [id number] Titration: 08/13/20 22:11 Dose: 0 units/hr, 0 mls/hr Documented by: [id number] Cosigned by: [id number] Titration: 08/13/20 19:06 Dose: 900 units/hr, 18 mls/hr Documented by: [id number] Cosigned by: [id number] Admin: 08/13/20 15:12 Dose: 900 units/hr, 18 mls/hr Documented by: [id number] Cosigned by: [id number] Insulin Aspart (Insulin Aspart 100 Units/Ml 3 Ml Pen) 0 units SC ACHS [facility] Stop: 09/12/20 17:04 Last Admin: 08/14/20 07:56 Dose: Not Given Documented by: [id number] Admin: 08/13/20 20:57 Dose: Not Given Documented by: [id number] Cosigned by: [id number] Admin: 08/13/20 18:06 Dose: 2 units Documented by: [id number] Cosigned by: [id number] Lisinopril (Lisinopril 5 Mg Tab) 5 mg PO [facility] Stop: 09/12/20 08:59 Last Admin: 08/14/20 08:59 Dose: 5 mg Documented by: [id number] Admin: 08/13/20 07:55 Dose: 5 mg Documented by: [id number] Metoprolol Succinate (Metoprolol Succ 25mg Ext Rel Tab) 37.5 mg PO [facility] Stop: 09/12/20 08:59 Last Admin: 08/14/20 09:00 Dose: Not Given Documented by: [id number] Admin: 08/13/20 07:53 Dose: 37.5 mg Documented by: [id number] Ondansetron HCl (Ondansetron Inj 2 Mg/Ml 2 Ml Vial) 4 mg IV Q6H PRN PRN Reason: Nausea Stop: 09/11/20 15:44 Last Admin: 08/13/20 07:51 Dose: 4 mg Documented by: [id number] Spironolactone (Spironolactone 25 Mg Tab) 25 mg PO QAM [facility] Stop: 09/12/20 08:59 Last Admin: 08/14/20 08:59 Dose: 25 mg Documented by: [id number] Admin: 08/13/20 07:54 Dose: 25 mg Documented by: [id number] Discontinued Medications Aspirin (Aspirin 81 Mg Ectab) 81 mg PO QAM [facility] Stop: 09/12/20 08:59 Last Admin: 08/13/20 07:53 Dose: 81 mg Documented by: [id number] Cholestyramine Resin (Cholestyramine Light 4 Gm Pkt) 4 gm PO NOW STA Stop: 08/12/20 10:17 Last Admin: 08/12/20 12:19 Dose: 4 gm Documented by: [id number] Heparin Sodium (Porcine) (Heparin Sod 5,000 Unit/0.5 Ml Vial) 5,000 units SQ Q12 [facility] Stop: 09/11/20 20:59 Last Admin: 08/13/20 07:51 Dose: 5,000 units Documented by: [id number] Cosigned by: [id number] Admin: 08/12/20 20:14 Dose: Not Given Documented by: [id number] Heparin Sodium/Dextrose (Heparin Iv Standard *No* Bolus) 1 ea IV Q30M [facility]; Protocol Stop: 08/13/20 13:28 Last Admin: 08/13/20 15:12 Dose: Not Given Documented by: [id number] Sodium Chloride (Nss 1000ml) 500 mls @ 999 mls/hr IV .Q31M ONE Stop: 08/12/20 10:45 Last Infusion: 08/12/20 10:57 Dose: 0 mls/hr Documented by: [id number] Admin: 08/12/20 10:23 Dose: 999 mls/hr Documented by: [id number] Magnesium Sulfate/Dextrose (Magnesium Sulfate / D5w) 1 gm in 100 mls @ 200 mls/hr IV Q30M [facility] Stop: 08/12/20 13:23 Last Infusion: 08/12/20 13:37 Dose: 0 mls/hr Documented by: [id number] Admin: 08/12/20 13:07 Dose: 200 mls/hr Documented by: [id number] Infusion: 08/12/20 13:07 Dose: 200 mls/hr Documented by: [id number] Admin: 08/12/20 12:37 Dose: 200 mls/hr Documented by: [id number] Magnesium Sulfate/Dextrose (Magnesium Sulfate / D5w) 1 gm in 100 mls @ 200 mls/hr IV Q30M [facility] Stop: 08/12/20 13:24 Last Infusion: 08/12/20 15:35 Dose: 0 mls/hr Documented by: [id number] Admin: 08/12/20 14:38 Dose: 200 mls/hr Documented by: [id number] Infusion: 08/12/20 14:34 Dose: 200 mls/hr Documented by: [id number] Admin: 08/12/20 14:04 Dose: 200 mls/hr Documented by: [id number] Sodium Chloride (Nss) 500 mls @ 80 mls/hr IV .Q6H15M [facility] Stop: 09/11/20 15:44 Last Admin: 08/13/20 13:06 Dose: Not Given Documented by: [id number] Infusion: 08/13/20 13:06 Dose: 0 mls/hr Documented by: [id number] Admin: 08/13/20 06:13 Dose: 80 mls/hr Documented by: [id number] Infusion: 08/13/20 06:13 Dose: 80 mls/hr Documented by: [id number] Admin: 08/13/20 00:30 Dose: 80 mls/hr Documented by: [id number] Infusion: 08/13/20 00:30 Dose: 80 mls/hr Documented by: [id number] Admin: 08/12/20 18:26 Dose: 80 mls/hr Documented by: [id number] Ioversol (Ioversol 100ml) 94 ml IV ONCE ONE Stop: 08/12/20 11:24 Last Admin: 08/12/20 11:23 Dose: 94 ml Documented by: [id number] Metoprolol Succinate (Metoprolol Succ 50mg Ext Rel Tab) 37.5 mg PO NOW STA Stop: 08/12/20 12:26 Last Admin: 08/12/20 14:23 Dose: Not Given Documented by: [id number] Metoprolol Tartrate (Metoprolol Tartrate 1 Mg/Ml Vial) 5 mg IV Q5M PRN PRN Reason: Tachycardia Stop: 09/11/20 12:31 Last Admin: 08/12/20 13:41 Dose: 5 mg Documented by: [id number] Admin: 08/12/20 13:03 Dose: 5 mg Documented by: [id number] Admin: 08/12/20 12:37 Dose: 5 mg Documented by: [id number] Ondansetron HCl (Ondansetron Inj 2 Mg/Ml 2 Ml Vial) 4 mg IV NOW STA Stop: 08/12/20 10:16 Last Admin: 08/12/20 10:51 Dose: 4 mg Documented by: [id number] Medical Decision Making Differential Diagnosis Appendicitis, ovarian cyst, ovarian torsion, ectopic , TOA, PID, infections, diverticulitis, UTI, obstruction, mesenteric ischemia, aortic pathology, inflammatory bowel disease, renal colic, PUD, pancreatitis, biliary pathology, hernia, volvulus, constipation, as well as other pathologies. Medical Records Attestation: I reviewed the patient's medical records. Home Medications Current Medication List: was personally reviewed by me Laboratory Data Attestation: I reviewed the patient's lab results. Result diagrams: 08/14/20 05:22 08/14/20 05:22 Lab Results 08/12/20 08/12/20 08/12/20 Range/Units 10:15 10:15 11:55 WBC 10.37 (4.8-10.8) K/uL RBC 3.91 L (4.2-5.4) M/uL Hgb 13.9 (12.0-16.0) g/dL Hct 41.7 (37-47) % MCV 106.6 H (80-100) fL MCH 35.5 H (25-34) pg MCHC 33.3 (32-36) g/dL RDW Std Deviation 52.9 H (36.4-46.3) fL RDW Coeff of Etta 13.6 (11.5-14.5) % Plt Count 253 (130-400) K/uL MPV 12.0 H (7.4-10.4) fL Immature Gran % (Auto) 0.2 % Neut % (Auto) 59.7 % Lymph % (Auto) 29.6 % Cross % (Auto) 9.9 % Eos % (Auto) 0.3 % Baso % (Auto) 0.3 % Neut # (Auto) 6.19 (1.4-6.5) K/uL Lymph # (Auto) 3.07 (1.2-3.4) K/uL Cross # (Auto) 1.03 H (0.11-0.59) K/uL Eos # (Auto) 0.03 (0-0.5) K/uL Baso # (Auto) 0.03 (0-0.2) K/uL Immature Gran # (Auto) 0.02 (0.00-0.02) K/uL Sodium 137 (136-145) mmol/L Potassium Cancelled (3.5-5.1) mmol/L Chloride 107 (98-107) mmol/L Carbon Dioxide 23 (21-32) mmol/L Anion Gap 7.0 (3-11) BUN 18 (7-18) mg/dl Creatinine 1.50 H (0.6-1.2) mg/dl Est Cr Clr Drug Dosing 28.1 ml/min Est GFR ( Amer) 39.4 Est GFR (Non-Af Amer) 34.0 BUN/Creatinine Ratio 12.1 (10-20) Glucose 133 H (70-99) mg/dl Calcium 9.8 (8.5-10.1) mg/dl Phosphorus (2.5-4.9) mg/dl Magnesium (1.8-2.4) mg/dl Total Bilirubin 1.3 H (0.2-1) mg/dl AST Cancelled (15-37) U/L ALT 22 (12-78) U/L Alkaline Phosphatase 155 H (45-117) U/L Troponin I < 0.015 (0-0.045) ng/ml Total Protein 7.6 (6.4-8.2) gm/dl Albumin 3.9 (3.4-5.0) gm/dl Globulin 3.7 (2.5-4.0) gm/dl Albumin/Globulin Ratio 1.1 (0.9-2) Lipase 283 (73-393) U/L TSH (0.300-4.500) uIu/ml 08/12/20 Range/Units 13:13 WBC (4.8-10.8) K/uL RBC (4.2-5.4) M/uL Hgb (12.0-16.0) g/dL Hct (37-47) % MCV (80-100) fL MCH (25-34) pg MCHC (32-36) g/dL RDW Std Deviation (36.4-46.3) fL RDW Coeff of Etta (11.5-14.5) % Plt Count (130-400) K/uL MPV (7.4-10.4) fL Immature Gran % (Auto) % Neut % (Auto) % Lymph % (Auto) % Cross % (Auto) % Eos % (Auto) % Baso % (Auto) % Neut # (Auto) (1.4-6.5) K/uL Lymph # (Auto) (1.2-3.4) K/uL Cross # (Auto) (0.11-0.59) K/uL Eos # (Auto) (0-0.5) K/uL Baso # (Auto) (0-0.2) K/uL Immature Gran # (Auto) (0.00-0.02) K/uL Sodium (136-145) mmol/L Potassium 4.4 (3.5-5.1) mmol/L Chloride (98-107) mmol/L Carbon Dioxide (21-32) mmol/L Anion Gap (3-11) BUN (7-18) mg/dl Creatinine (0.6-1.2) mg/dl Est Cr Clr Drug Dosing ml/min Est GFR ( Amer) Est GFR (Non-Af Amer) BUN/Creatinine Ratio (10-20) Glucose (70-99) mg/dl Calcium (8.5-10.1) mg/dl Phosphorus 3.0 (2.5-4.9) mg/dl Magnesium 2.8 H (1.8-2.4) mg/dl Total Bilirubin (0.2-1) mg/dl AST 13 L (15-37) U/L ALT (12-78) U/L Alkaline Phosphatase (45-117) U/L Troponin I (0-0.045) ng/ml Total Protein (6.4-8.2) gm/dl Albumin (3.4-5.0) gm/dl Globulin (2.5-4.0) gm/dl Albumin/Globulin Ratio (0.9-2) Lipase (73-393) U/L TSH 1.390 (0.300-4.500) uIu/ml Imaging Data Radiologist's Impression: [facility] [place] [facility], [place] [phone] CT Scan Report Patient: TATUM NOEL Date: 08/12/20 MR#: [id number]: [id number] Acct ID:[id number]: [facility] Zip[facility] [place] [id number] Age: 74Location: ED Sex: FRoom/Bed: Att Phy:Diagnosis: ABD PAIN Maggi Phy: MoLc handleyy DOService Date: 08/12/20 Fam Phy:Interpreting Phy: Catalino Alcocer Admit Phy: Ordering Phy: Michi Alarcon MD cc: ~ ABDOMEN AND PELVIS CT WITH IV CONTRAST CT DOSE: 306.31 mGy.cm HISTORY: Acute nausea and vomiting Pt c/o N V TECHNIQUE: Multiaxial CT images of the abdomen and pelvis were performed following the IV administration of 94 cc of Optiray 320, A dose lowering technique was utilized adhering to the principles of ALARA. COMPARISON STUDY: CT abdomen and pelvis 06/11/2019. FINDINGS: Mild subsegmental bibasilar atelectasis. No pneumatosis or pneumoperitoneum. Study is mildly motion degraded. Mild cardiomegaly. The spleen, pancreas and adrenal glands are unremarkable. Cholecystectomy. Unremarkable liver. Patency of the hepatic and portal veins. Bilateral renal cysts measure up to 3.5 cm on the left. No hydronephrosis. Unremarkable urinary bladder. Subcentimeter cystic foci are noted involving the left fundal uterus measuring up to 10 mm. Thickening of the fundal endometrium measures up to 9 mm. No adnexal mass lesions identified. Mixed plaque of the abdominal aorta without aneurysm. There is no adenopathy. No bowel obstruction or bowel wall thickening. Colonic diverticulosis without acute diverticulitis. Normal appendix. There are a few scattered small bowel air-fluid levels. Subcentimeter metallic density focus projects anterior to the transverse colon, unchanged. Soft tissues and breast parenchyma are unremarkable. Demineralized appearance of the bones. Degenerative changes of the spine, pelvis and hips. 2.0 cm sclerotic lesion of the right iliac bone is unchanged and likely benign. IMPRESSION: 1. No bowel obstruction or bowel wall thickening. Scattered small bowel air- fluid levels may be physiologic or reflect a mild enteritis. 2. Colonic diverticulosis without acute diverticulitis. 3. Cholecystectomy. 4. Pathologic thickening of the fundal endometrium measures up to 10 mm. Additio emery, there are a few subcentimeter cystic foci of the left fundal uterus. Correlation with a nonemergent follow-up pelvic ultrasound recommended. ACT 112: Negative or not required by law. The above report was generated using voice recognition software. It may contain grammatical, syntax or spelling errors. Electronically signed by: Efrain Alcocer M.D. 08/12/2020 12:06 PM Dictated: 08/12/20 1200 Transcribed: 08/12/20 1200 [place], [place] [phone] XRay Report Patient: TATUM NOEL Date: 08/12/20 MR#: [id number]: [id number] Acct ID:[id number]: Date: 5City Zip: [place] [address] Age: 74Location: ED Sex: FRoom/Bed: Att Phy:Diagnosis: ABD PAIN Maggi Phy: Kasandra Antunez DOService Date: 08/12/20 Fam Phy:Interpreting Phy: Parminder Hsasan MD Admit Phy: Ordering Phy: Michi Alarcon MD cc: ~ XR chest 1V portable CLINICAL HISTORY: Atypical chest pain COMPARISON STUDY: June 15, 2020 FINDINGS: The cardiac and mediastinal contours are normal. There is no evidence of focal pulmonary consolidation. There is no evidence of failure. No pleural effusions are visualized.[ IMPRESSION: No active disease in the chest. ACT 112: Negative or not required by law. Electronically signed by: Parminder Hassan M.D. 08/12/2020 10:24 AM Dictated: 08/12/20 1023 Transcribed: 08/12/20 1023 MDM Narrative Patient was seen and evaluated as above in room C1. Review was performed of nursing notes and vital signs. I did review pertinent previous visits and patient history. After obtaining a thorough history and physical examination the above work up was performed. This is a 74-year-old female who presents emergency department complaining of nausea. The patient was given a normal saline bolus as well as Zofran. Serial abdominal examinations were performed of the patient in the emergency department no time the patient exhibited surgical abdomen. Patient does appear to be dehydrated with an elevation in her BUN and creatinine. While the patient was in the emergency department she went into an A. fib with RVR. This point she was given 4 g of magnesium and given IV Lopressor however she continued to be in atrial fibrillation. Based on this I did discuss the case with the hospitalist service who did agree to admit the patient. While in the department, I personally reevaluated the patient several times and each time the patient was found to be resting comfortably. The patient was educated upon management, educated upon todays findings/results, educated upon importance of follow up from today's visit, educated upon symptoms in which to return, had questions answered prior to discharge, verbalized understanding, and was discharged home in good condition. An order was placed for continuous cardiac monitoring. The monitor shows a rate of 120 with afib rhythm. The patient was evaluated during the global COVID-19 pandemic, and that diagnosis was suspected/considered upon their initial presentation. Their evaluation, treatment and testing was consistent with current guidelines for patients who present with complaints or symptoms that may be related to COVID- 19. Impression & Plan Paroxysmal atrial fibrillation with RVR, Nausea, Vomiting Critical Care Time I have personally spent greater than 30 minutes of critical care time in the direct management of this patient. This includes bedside care, interpretation of diagnostic studies, and testing, discussion with consultants, patient, and family members, and other required patient management activities. This 30 minutes is in excess of all separately billable procedures. Discharge Plan Visit Data Chief Complaint: Abdominal Pain ED Provider: Michi Alarcon Discharge Problem: Paroxysmal atrial fibrillation with RVR, Nausea, Vomiting Patient Disposition: Admitted As Inpatient Discharge Instructions Interventions: ED Discharge Assessment Last Done: 08/12/20 16:26 Discharge Problem: Vomiting Qualifiers: Vomiting type: unspecified Vomiting Intractability: unspecified Nausea presence: unspecified Qualified Code(s): R11.10 - Vomiting, unspecified
[2020-08-12] MEDS ORDERED: ONDANSETRON INJ 2 MG/ML 2 ML VIAL IV PRN (15:45)
--- NOTE | 2020-08-12 16:42 | Electrocardiogram Report ---
Test Reason : Blood Pressure : / mmHG Vent. Rate : 125 BPM Atrial Rate : 138 BPM P-R Int : 000 ms QRS Dur : 120 ms QT Int : 348 ms P-R-T Axes : 000 -45 099 degrees QTc Int : 502 ms Poor data quality, interpretation may be adversely affected Atrial fibrillation with rapid ventricular response Left axis deviation Old Anteroseptal infarct (cited on or before 12-AUG-2020) Abnormal ECG When compared with ECG of 12-AUG-2020 10:52, Atrial fibrillation has replaced Sinus rhythm Vent. rate has increased BY 75 BPM Confirmed by Hugh Stephen ([id number]) on 08/12/2020 4:41:59 PM Referred By: REFERRED SELF Confirmed By:Hugh Stephen
[2020-08-12] MEDS ORDERED: LORazepam 0.5 MG TAB PO PRN (17:15)
[2020-08-12] MEDS ORDERED: ACETAMINOPHEN 325 MG TAB PO PRN (17:15)
[2020-08-12] MEDS ORDERED: POLYETHYLENE (MIRALAX) 17 GM PACK PO PRN (17:15)
[2020-08-12] MEDS: SODIUM CHLORIDE 0.9% 500 ML IV SCH (18:26)
[2020-08-12] MEDS: ATORVASTATIN 40 MG TAB PO SCH (20:14)
[2020-08-12] MEDS: ESCITALOPRAM OXALATE 10 MG TAB PO SCH (20:14)
[2020-08-12] MEDS: HEPARIN SOD 5,000 UNIT/0.5 ML VIAL SQ SCH (20:14)
[2020-08-12] MEDS: FAMOTIDINE 20 MG TAB PO SCH (20:15)
[2020-08-13] MEDS: SODIUM CHLORIDE 0.9% 500 ML IV SCH ×3 (00:30→13:06)
[2020-08-13 05:29] LABS: Appearance Urine Clear (Clear); Bilirubin Urine Negative (Negative); Blood Urine Negative (Negative); Color Urine Yellow; Glucose Urine UA Negative (Negative); Ketones Urine Negative (Negative); Leukocyte Esterase Urine Negative (Negative); Nitrite Urine Negative (Negative); Protein Urine Negative (Negative); Specific Gravity Urine 1.022 (1.000-1.030); Urobilinogen Urine Negative (Negative)
[2020-08-13 06:49] LABS: Hematocrit (blood only) 37.2 % (37-47); Hemoglobin 12.6 g/dL (12.0-16.0); Mean Corpuscular Hemoglobin 35.8 pg (25-34); Mean Corpuscular Hgb Conc 33.9 g/dL (32-36); Mean Corpuscular Volume 105.7 fL (80-100); Mean Platelet Volume 11.7 fL (7.4-10.4); Platelet Count 234 K/uL (130-400); RDW Coefficient of Variation 13.6 % (11.5-14.5); RDW Standard Deviation 51.7 fL (36.4-46.3); Red Blood Count 3.52 M/uL (4.2-5.4); White Blood Count 8.52 K/uL (4.8-10.8)
[2020-08-13 07:20] LABS: BUN Creatinine Ratio 11.7 (10-20); Calcium 8.6 mg/dl (8.5-10.1); Creatinine Clr Calc Pharmacy 31.9 ml/min; Magnesium 2.5 mg/dl (1.8-2.4); Potassium 3.7 mmol/L (3.5-5.1)
[2020-08-13] MEDS: HEPARIN SOD 5,000 UNIT/0.5 ML VIAL SQ SCH (07:51)
[2020-08-13] MEDS: FAMOTIDINE 20 MG TAB PO SCH ×2 (07:52→21:05)
[2020-08-13] MEDS: METOPROLOL SUCC 25MG EXT REL TAB PO SCH (07:53)
[2020-08-13] MEDS: allopurinoL 100 MG TAB PO SCH (07:54)
[2020-08-13] MEDS: SPIRONOLACTONE 25 MG TAB PO SCH (07:54)
[2020-08-13] MEDS: lisinopril 5 MG TAB PO SCH (07:55)
[2020-08-13] MEDS: CLOPIDOGREL BISULFATE 75 MG TAB PO SCH (07:55)
[2020-08-13] MEDS ORDERED: ASPIRIN 81 MG ECTAB PO SCH (09:00)
--- NOTE | 2020-08-13 09:05 | Electrocardiogram Report ---
Test Reason : Blood Pressure : / mmHG Vent. Rate : 057 BPM Atrial Rate : 057 BPM P-R Int : 194 ms QRS Dur : 128 ms QT Int : 502 ms P-R-T Axes : 073 -63 081 degrees QTc Int : 488 ms Sinus bradycardia with occasional Premature ventricular complexes Left axis deviation Non-specific intra-ventricular conduction block Old Anterolateral infarct (cited on or before 12-AUG-2020) Abnormal ECG When compared with ECG of 12-AUG-2020 12:23, HR has decreased by 68 bpm Atrial fibrillation no longer present Confirmed by Hugh Stephen ([id number]) on 08/13/2020 9:05:22 AM Referred By: REFERRED SELF Confirmed By:Hugh Stephen
--- NOTE | 2020-08-13 12:47 | Cardiology Consultation ---
Date of Consultation August 13, 2020 Assessment & Plan (1) Paroxysmal atrial fibrillation with RVR: Patient is a 74-year-old female with history of hypertension hypertensive heart disease and chronic conduction system disease with left bundle branch block interventricular conduction disease on prior EKGs and past history of atrial tachycardia's. Recent history is notable for left middle cerebral artery distribution stroke in February 2020 raising concerns for possible underlying atrial fibrillation. In follow-up with possible recent neurologic complaint in June patient underwent Zio patch monitor which demonstrated paroxysmal atrial fibrillation notably recurring at the time of this admission. Rhythm is notably coarse atrial fibrillation versus atypical atrial flutter Patient has resting bradycardia on current drug regimen Recommendations: Patient has elevated chads vasc 2 score and warrants full anticoagulation long-term unless contraindications present. Would discontinue aspirin once initiated Continue current dosing of metoprolol while main taining telemetry. Patient may ultimately require antiarrhythmic therapy though underlying borderline tachybradycardia syndrome present and may ultimately warrant pacemaker insertion. Patient has scheduled appointment EP would consult to see this admission (2) History of right MCA stroke: (3) HTN (hypertension): (4) LBBB (left bundle branch block): (5) CKD (chronic kidney disease) stage 3, GFR 30-59 ml/min: History of Present Illness Reason for Consultation: Paroxysmal atrial fibrillation/flutter Requesting Physician: Dr. Bustamante Attending Physician: Raymundo Bustamante MD History of Present Illness Patient is a 74-year-old female whose ongoing issues include 1. Longstanding hypertension with hypertensive heart disease 2. Chronic left bundle branch block/intraventricular conduction delay 3. Type 2 diabetes mellitus 4. Paroxysmal atrial tachycardia/SVT by prior monitors 5. Left middle cerebral artery distribution CVA, February 2020 with possible recurrent TIA versus worsening dementia May 2020 6. Paroxysmal atrial fibrillation by event monitor June 2020, current admission Patient is referred after presenting yesterday with symptoms of nausea abdominal pain and cramping, diarrhea and vomiting. During initial ER evaluation patient found to be in intermittent atrial fibrillation converting to sinus rhythm after IV metoprolol Patient is referred now for further evaluation. Review of records reveals Zio patch event monitor 06/24/2020 demonstrating intermittent atrial fibrillation approximately 1% burden Patient currently without complaints abdominal pains have settled no further diarrhea or discomfort no dizziness or lightheadedness. No chest pains, no sense of tachypalpitations orthopnea worsening peripheral edema. Patient is a occasionally aware of heart pounding hard. No fevers chills unexplained infections. Allergies Allergy/AdvReac Type Severity Reaction Status Date / Time codeine Allergy Intermediate "UNSURE IF Verified 08/12/20 10:40 STILL ALLERGIC" Home Medications Home Medications Medication Instructions Recorded Confirmed Type acetaminophen [Tylenol] 325 mg PO Q6H PRN 06/11/19 08/12/20 History allopurinol 100 mg PO QAM 06/11/19 08/12/20 History aspirin 81 mg PO QAM 06/11/19 08/12/20 History lisinopril 5 mg PO QAM 06/11/19 08/12/20 History lorazepam 0.5 mg PO DAILY PRN 06/11/19 08/12/20 History spironolactone 25 mg PO QAM 06/11/19 08/12/20 History atorvastatin 40 mg PO QPM #30 tab 02/24/20 08/12/20 Rx clopidogrel 75 mg PO QAM #30 tab 02/24/20 08/12/20 Rx metoprolol succinate 37.5 mg PO QAM 06/15/20 08/12/20 History famotidine 20 mg PO BID 06/29/20 08/12/20 History escitalopram oxalate 10 mg PO PM 08/12/20 08/12/20 History Patient History Medical History Atrial fibrillation CKD (chronic kidney disease) stage 3, GFR 30-59 ml/min Degenerative disc disease, cervical Dyslipidemia M[place]IADES (generalized anxiety disorder) GERD without esophagitis Hearing loss History of adenomatous polyp of colon History of right MCA stroke HTN (hypertension) Hypertensive cardiomegaly Type 2 diabetes mellitus Vitamin D deficiency Surgical History History of arthroplasty of left knee History of carpal tunnel surgery History of cholecystectomy History of D&C History of excision of lesion Back - Dr. Tucker Family History Other Diabetes Heart disease Social History Smoking Status: Never smoker Second Hand Exposure: No; Do You Dip or Chew Tobacco: No; Tobacco Cessation Education Requested by Patient: No Hx Alcohol Use: Yes Hx Substance Use: Yes Preferred Language: Latvian Communication Ability: Impaired Hearing Ability: Hard of Hearing Physicist [place] Required: No Beliefs That Will Affect Care: None marital status: Current Living Situation: Spouse Other Information That Helps Us Care for You: No Feels Safe at Home: Yes Safety Concerns: Feels Safe At This Time Assistive Devices: None Review of Systems Review of Systems: All systems reviewed & are unremarkable except as noted in HPI & below Physical Exam Constitutional: + thin; no acute distress Eyes: PERRL, conjunctivae normal, anicteric sclerae ENMT: external ear and nose normal, oropharynx normal Neck: trachea midline, no thyromegaly Respiratory: normal respiratory effort, lungs clear to auscultation Cardiovascular: Rate/Rhythm: regular rate and regular rhythm Heart Sounds: normal S1, normal S2 and + murmur; no gallop Palpation: normal PMI Vessels: normal carotid upstroke and radial pulses present; no JVD and no carotid bruit Extremities: no edema Gastrointestinal (Abdomen): normal bowel sounds, soft, nontender, no hepatosplenomegaly Musculoskeletal: no cyanosis or clubbing, extremities motor strength 5/5 Skin: no rashes, warm and dry Neurologic: PERRL, EOMI, accommodation nl, no face palsy, no dysarthria Psychiatric: A+Ox3, euthymic affect Results & Data ([facility]) Vital Signs (Past 12 Hours) Vital Signs Temp Pulse Resp BP Pulse Ox 08/13/20 11:46 36.5 C 49 L 16 150/80 H 96 08/13/20 08:01 37.0 C 108 H 18 148/76 H 08/13/20 04:47 36.5 C 43 L 16 152/69 H 95 Laboratory Results Laboratory Results - last 24 hr 08/12/20 08/12/20 08/12/20 13:13 15:11 15:11 WBC RBC Hgb Hct MCV MCH MCHC RDW Std Deviation RDW Coeff of Etta Plt Count MPV Sodium Potassium 4.4 Chloride Carbon Dioxide Anion Gap BUN Creatinine Est Cr Clr Drug Dosing Est GFR ( Amer) Est GFR (Non-Af Amer) BUN/Creatinine Ratio Glucose POC Glucose Calcium Phosphorus 3.0 Magnesium 2.8 H AST 13 L TSH 1.390 Urine Color Urine Appearance Urine pH Ur Specific Veteran Urine Protein Urine Glucose (UA) Urine Ketones Urine Blood Urine Nitrite Urine Bilirubin Urine Urobilinogen Ur Leukocyte Esterase COVID-19 Eval Order Covid19 Done at [facility] COVID-19 PCR NEGATIVE 08/12/20 08/12/20 08/13/20 16:54 20:08 05:15 WBC RBC Hgb Hct MCV MCH MCHC RDW Std Deviation RDW Coeff of Etta Plt Count MPV Sodium Potassium Chloride Carbon Dioxide Anion Gap BUN Creatinine Est Cr Clr Drug Dosing Est GFR ( Amer) Est GFR (Non-Af Amer) BUN/Creatinine Ratio Glucose POC Glucose 128 H 110 H Calcium Phosphorus Magnesium AST TSH Urine Color Yellow Urine Appearance Clear Urine pH 5.0 Ur Specific Veteran 1.022 Urine Protein Negative Urine Glucose (UA) Negative Urine Ketones Negative Urine Blood Negative Urine Nitrite Negative Urine Bilirubin Negative Urine Urobilinogen Negative Ur Leukocyte Esterase Negative COVID-19 Eval Order COVID-19 PCR 08/13/20 08/13/20 06:12 06:12 WBC 8.52 RBC 3.52 L Hgb 12.6 Hct 37.2 MCV 105.7 H MCH 35.8 H MCHC 33.9 RDW Std Deviation 51.7 H RDW Coeff of Etta 13.6 Plt Count 234 MPV 11.7 H Sodium 139 Potassium 3.7 D Chloride 111 H Carbon Dioxide 22 Anion Gap 6.0 BUN 14 Creatinine 1.21 H Est Cr Clr Drug Dosing 31.9 Est GFR ( Amer) 51.0 Est GFR (Non-Af Amer) 44.0 BUN/Creatinine Ratio 11.7 Glucose 104 H POC Glucose Calcium 8.6 Phosphorus Magnesium 2.5 H AST TSH Urine Color Urine Appearance Urine pH Ur Specific Veteran Urine Protein Urine Glucose (UA) Urine Ketones Urine Blood Urine Nitrite Urine Bilirubin Urine Urobilinogen Ur Leukocyte Esterase COVID-19 Eval Order COVID-19 PCR (1) HTN (hypertension) 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 type: essential hypertension Qualified Code(s): I10 - Essential (primary) hypertension
[2020-08-13] MEDS ORDERED: Heparin IV Standard *NO* Bolus IV SCH (13:27)
[2020-08-13] MEDS ORDERED: HEPARIN SODIUM/DEXTROSE 25,000 UNITS/500 ML BAG IV SCH (14:45)
--- NOTE | 2020-08-13 16:28 | Hospitalist Progress Note ---
Date of Service August 13, 2020 Assessment & Plan (1) Nausea: (2) Vomiting: (3) Diarrhea: Patient is a 74 yr female with H/O Paroxysmal atrial fibrillation, hypertension, history of right MCA stroke with mild left-sided residual weakness, CKD III, generalized anxiety, diet-controlled type 2 diabetes and other medical problems listed below who presents with nausea, vomiting and generalized weakness for the past few days. Nausea, vomiting, diarrhea Likely due to mild Enteritis --CT ABD: No bowel obstruction or bowel wall thickening. Scattered small bowel air-fluid levels may be physiologic or reflect a mild enteritis. Colonic diverticulosis without acute diverticulitis. Cholecystectomy. Pathologic thickening of the fundal endometrium measures up to 10 mm. Additionally, there are a few subcentimeter cystic foci of the left fundal uterus. Correlation with a nonemergent follow-up pelvic ultrasound recommended. -COVID PCR:Negative -Stool Studies pending -Received gentle IV fluids --Symptoms improved -Monitor electrolytes, renal function (4) Atrial fibrillation with RVR: H/O paroxysmal atrial fibrillation Chronic conduction system disease Possible tachybradycardia syndrome May need pacemaker insertion Started on IV heparin Appreciate cardiology input N.p.o. after midnight Continue metoprolol with hold parameters (5) History of right MCA stroke: Continue Plavix Discontinue aspirin as started on IV Heparin (6) CKD (chronic kidney disease) stage 3, GFR 30-59 ml/min: Creatinine at baseline Monitor renal function Avoid nephrotoxic agents as able (7) Type 2 diabetes mellitus: Diet controlled ISS while hospitalized (8) HTN (hypertension): Continue Metoprolol, lisinopril, spironolactone (9) Generalized weakness: Continue Escitalopram Weaned off of Ativan as able (Patient takes 0.5 mg daily PRN) (10) Dyslipidemia: Continue statin DVT Px: IV Heparin Code status: DNI/DNR Admission and Anticipated Discharge Date Admission Date: August 12, 2020 Subjective Patient is seen and examined at bedside Reports nausea, vomiting, diarrhea resolved Bradycardic on monitor Discussed with Cardiology Denies chest pain, SOB, dizziness, abd pain Started on IV heparin today Family at bedside offers no other complaints Review of Systems Review of Systems: All systems reviewed & are unremarkable except as noted in HPI & below Physical Exam Physical Exam: Physical Exam: Vitals signs as noted above General Appearance:Thin, elderly, no apparent distress Head: normocephalic, Atraumatic, +Hearing loss Eyes: normal inspection, EOMI Neck: supple, Trachea midline Respiratory/Chest: Normal breath sounds, CTA, No accessory muscle use Cardiovascular: S1, S2, + murmur, +Bradycardia Abdomen/GI:Soft, Non tender, Bowel sounds present Extremities/Musculoskelatal:normal inspection, no edema Neurologic/Psych:grossly no focal neurological deficits Skin: normal color, warm Results & Data Results & Data ([facility]) Vital Signs (Past 12 Hours) Vital Signs Temp Pulse Pulse Resp BP Pulse Ox 08/13/20 15:04 36.5 C 50 L 20 155/62 H 94 08/13/20 11:46 36.5 C 49 L 16 150/80 H 96 08/13/20 08:01 37.0 C 108 H 18 148/76 H 08/13/20 04:47 36.5 C 43 L 16 152/69 H 95 Laboratory Results Short CBC 08/13/20 Range/Units 06:12 WBC 8.52 (4.8-10.8) K/uL Hgb 12.6 (12.0-16.0) g/dL Hct 37.2 (37-47) % Plt Count 234 (130-400) K/uL BMP 08/13/20 06:12 Sodium 139 Potassium 3.7 D Chloride 111 H Carbon Dioxide 22 BUN 14 Creatinine 1.21 H Glucose 104 H Calcium 8.6 Urine 08/13/20 Range/Units 05:15 Urine Color Yellow Urine Appearance Clear (Clear) Urine pH 5.0 (4.5-7.5) Ur Specific Moore 1.022 (1.000-1.030) Urine Protein Negative (Negative) Urine Glucose (UA) Negative (Negative) (1) Vomiting Nausea presence: with nausea Vomiting Intractability: non-intractable Vomiting type: unspecified Qualified Code(s): R11.2 - Nausea with vomiting, unspecified (2) Type 2 diabetes mellitus Diabetes mellitus penitentiary insulin use: without fire fighting equipment specialist use Diabetes mellitus complication status: with kidney complications Diabetes mellitus complication detail: with chronic kidney disease Chronic kidney disease stage: stage 3 (moderate) Qualified Code(s): 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 (3) HTN (hypertension) 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 type: essential hypertension Qualified Code(s): I10 - Essential (primary) hypertension
[2020-08-13] MEDS ORDERED: GLUCOSE 10 TABS/TUBE PO PRN (17:00)
[2020-08-13] MEDS ORDERED: GLUCOSE 40% GEL 15 GM TUBE PO PRN (17:00)
[2020-08-13] MEDS ORDERED: CARBOHYDRATES FOR HYPOGLYCEMIA PO PRN (17:00)
[2020-08-13] MEDS ORDERED: GLUCAGON FOR INJ 1 MG VIAL SQ PRN (17:00)
[2020-08-13] MEDS ORDERED: DEXTROSE 50% 50 ML SYRINGE IV PRN (17:00)
[2020-08-13] MEDS: INSULIN ASPART 100 UNITS/ML 3 ML PEN SC SCH ×2 (18:06→20:57)
[2020-08-13] MEDS: ATORVASTATIN 40 MG TAB PO SCH (21:05)
[2020-08-13] MEDS: ESCITALOPRAM OXALATE 10 MG TAB PO SCH (21:05)
[2020-08-13 22:03] LABS: Partial Thromboplastin Ratio 3.6
[2020-08-13 22:11] LABS: Partial Thromboplastin Time 99.5 Seconds (21.0-31.0)
[2020-08-14 05:53] LABS: Hematocrit (blood only) 36.9 % (37-47); Hemoglobin 12.6 g/dL (12.0-16.0); Mean Corpuscular Hemoglobin 35.9 pg (25-34); Mean Corpuscular Hgb Conc 34.1 g/dL (32-36); Mean Corpuscular Volume 105.1 fL (80-100); Mean Platelet Volume 11.8 fL (7.4-10.4); Platelet Count 230 K/uL (130-400); RDW Coefficient of Variation 13.6 % (11.5-14.5); RDW Standard Deviation 51.6 fL (36.4-46.3); Red Blood Count 3.51 M/uL (4.2-5.4); White Blood Count 8.81 K/uL (4.8-10.8)
[2020-08-14 06:14] LABS: Partial Thromboplastin Ratio 3.7
[2020-08-14 06:31] LABS: BUN Creatinine Ratio 13.5 (10-20); Creatinine Clr Calc Pharmacy 27.5 ml/min; Est GFR (African American) 42.8; Est GFR (Non-African American) 36.9; Potassium 3.8 mmol/L (3.5-5.1)
[2020-08-14 06:34] LABS: Partial Thromboplastin Time 103.8 Seconds (21.0-31.0)
[2020-08-14] MEDS: INSULIN ASPART 100 UNITS/ML 3 ML PEN SC SCH ×4 (07:56→20:30)
--- NOTE | 2020-08-14 08:49 | Electrocardiogram Report ---
Test Reason : Blood Pressure : / mmHG Vent. Rate : 060 BPM Atrial Rate : 060 BPM P-R Int : 182 ms QRS Dur : 124 ms QT Int : 482 ms P-R-T Axes : 070 -59 076 degrees QTc Int : 482 ms Sinus rhythm with occasional Premature ventricular complexes Left axis deviation Non-specific intra-ventricular conduction delay Old Anteroseptal infarct Abnormal ECG When compared with ECG of 13-AUG-2020 07:07, No significant change Confirmed by Hugh Stephen ([id number]) on 08/14/2020 8:49:02 AM Referred By: REFERRED SELF Confirmed By:Hugh Stephen
[2020-08-14] MEDS: FAMOTIDINE 20 MG TAB PO SCH ×2 (08:59→19:45)
[2020-08-14] MEDS: SPIRONOLACTONE 25 MG TAB PO SCH (08:59)
[2020-08-14] MEDS: lisinopril 5 MG TAB PO SCH (08:59)
[2020-08-14] MEDS: CLOPIDOGREL BISULFATE 75 MG TAB PO SCH (08:59)
[2020-08-14] MEDS: allopurinoL 100 MG TAB PO SCH (08:59)
[2020-08-14] MEDS: METOPROLOL SUCC 25MG EXT REL TAB PO SCH (09:00)
--- NOTE | 2020-08-14 09:51 | Cardiology Progress Note ---
Date of Service August 14, 2020 Assessment & Plan (1) Paroxysmal atrial fibrillation with RVR: Patient is a 74-year-old female with history of hypertension hypertensive heart disease and chronic conduction system disease with left bundle branch block interventricular conduction disease on prior EKGs and past history of atrial tachycardia's. Recent history is notable for left middle cerebral artery distribution stroke in February 2020 raising concerns for possible underlying atrial fibrillation. In follow-up with possible recent neurologic complaint in June patient underwent Zio patch monitor which demonstrated paroxysmal atrial fibrillation notably recurring at the time of this admission. Rhythm is notably coarse atrial fibrillation versus atypical atrial flutter Patient has resting bradycardia on current drug regimen Recommendations: Patient has elevated chads vasc 2 score and warrants full anticoagulation long-term unless contraindications present. Would discontinue aspirin once initiated Continue current dosing of metoprolol while maintaining telemetry. Patient may ultimately require antiarrhythmic therapy though underlying borderline tachybradycardia syndrome present and may ultimately warrant pacemaker insertion. Patient has scheduled appointment EP would consult to see this admission 08/14/2020: Recurrent episodes of atrial fib flutter overnight asymptomatic with resting bradycardia reflecting tachybradycardia syndrome with only fair control. Plan: Dual-chamber pacemaker today with initiation of antiarrhythmic therapy after. Patient n.p.o. we will hold heparin prior to procedure Will warrant full anticoagulation with discharge (2) History of right MCA stroke: (3) HTN (hypertension): (4) LBBB (left bundle branch block): (5) CKD (chronic kidney disease) stage 3, GFR 30-59 ml/min: Admission and Anticipated Discharge Date Admission Date: August 12, 2020 Subjective Patient was seen and examined, chart, telemetry reviewed. Patient without complaints overnight abdominal discomfort and nausea has resolved completely. No chest pains dizziness or lightheadedness. Telemetry demonstrated several runs of paroxysmal A. fib flutter with spontaneous conversion to sinus rhythm. Resting heart rate bradycardia Physical Exam Constitutional: + thin; no acute distress Eyes: PERRL, conjunctivae normal, anicteric sclerae ENMT: external ear and nose normal, oropharynx normal Neck: trachea midline, no thyromegaly Respiratory: normal respiratory effort, lungs clear to auscultation Cardiovascular: Rate/Rhythm: regular rate and regular rhythm Heart Sounds: normal S1, normal S2 and + murmur; no gallop Palpation: normal PMI Vessels: normal carotid upstroke and radial pulses present; no JVD and no carotid bruit Extremities: no edema Gastrointestinal (Abdomen): normal bowel sounds, soft, nontender, no hepatosplenomegaly Musculoskeletal: no cyanosis or clubbing, extremities motor strength 5/5 Skin: no rashes, warm and dry Neurologic: PERRL, EOMI, accommodation nl, no face palsy, no dysarthria Psychiatric: A+Ox3, euthymic affect Results & Data ([facility]) Vital Signs (Past 12 Hours) Vital Signs Temp Pulse Pulse Resp BP BP Pulse Ox 08/14/20 07:46 46 L 08/14/20 07:13 36.6 C 51 L 18 177/70 H 93 08/14/20 03:11 36.4 C L 59 L 18 172/84 H 92 08/14/20 00:42 59 L 08/13/20 23:08 37 C 60 18 163/88 H 92 Laboratory Results Laboratory Results - last 24 hr 08/13/20 08/13/20 08/13/20 17:17 20:12 21:16 WBC RBC Hgb Hct MCV MCH MCHC RDW Std Deviation RDW Coeff of Etta Plt Count MPV APTT 99.5 H* PTT Ratio 3.6 Sodium Potassium Chloride Carbon Dioxide Anion Gap BUN Creatinine Est Cr Clr Drug Dosing Est GFR ( Amer) Est GFR (Non-Af Amer) BUN/Creatinine Ratio Glucose POC Glucose 121 H 107 H Calcium Magnesium 08/14/20 08/14/20 08/14/20 05:22 05:22 05:22 WBC 8.81 RBC 3.51 L Hgb 12.6 Hct 36.9 L MCV 105.1 H MCH 35.9 H MCHC 34.1 RDW Std Deviation 51.6 H RDW Coeff of Etta 13.6 Plt Count 230 MPV 11.8 H APTT 103.8 H* PTT Ratio 3.7 Sodium 140 Potassium 3.8 Chloride 110 H Carbon Dioxide 24 Anion Gap 6.0 BUN 19 H Creatinine 1.40 H Est Cr Clr Drug Dosing 27.5 Est GFR ( Amer) 42.8 Est GFR (Non-Af Amer) 36.9 BUN/Creatinine Ratio 13.5 Glucose 117 H POC Glucose Calcium 9.0 Magnesium 2.0 08/14/20 07:30 WBC RBC Hgb Hct MCV MCH MCHC RDW Std Deviation RDW Coeff of Etta Plt Count MPV APTT PTT Ratio Sodium Potassium Chloride Carbon Dioxide Anion Gap BUN Creatinine Est Cr Clr Drug Dosing Est GFR ( Amer) Est GFR (Non-Af Amer) BUN/Creatinine Ratio Glucose POC Glucose 126 H Calcium Magnesium (1) HTN (hypertension) 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 type: essential hypertension Qualified Code(s): I10 - Essential (primary) hypertension
[2020-08-14] MEDS ORDERED: Nursing to Pharmacy Communication SCH (11:33)
--- NOTE | 2020-08-14 14:56 | History & Physical Bridge Note ---
Date of Service August 14, 2020 History & Physical Bridge Note I have examined the patient, reviewed the History & Physical and in the interval since the performance of the History & Physical I have noted the following changes of clinical significance: patient with TBS for dual chamber ppm. consents signed.
--- NOTE | 2020-08-14 14:56 | Pre Anesthesia Assessment ---
Date of Service August 14, 2020 Pre Sedation Assessment Vital Signs Temp Pulse Pulse Pulse Resp BP BP 08/14/20 11:52 36.6 C 47 L 19 155/65 H 08/14/20 07:46 46 L 08/14/20 07:13 36.6 C 51 L 18 177/70 H 08/14/20 03:11 36.4 C L 59 L 18 172/84 H 08/14/20 00:42 59 L 08/13/20 23:08 37 C 60 18 163/88 H 08/13/20 18:56 36.9 C 56 L 18 154/73 H 08/13/20 15:04 36.5 C 50 L 20 155/62 H Pulse Ox 08/14/20 11:52 94 08/14/20 07:46 08/14/20 07:13 93 08/14/20 03:11 92 08/14/20 00:42 08/13/20 23:08 92 08/13/20 18:56 96 08/13/20 15:04 94 Cardiovascular + bradycardic Respiratory normal respiratory effort, lungs clear to auscultation Pre-Sedation Airway Assessment Smoking Status: Never smoker Hx Sleep Apnea: No Hx Difficult Intubation: No Short, Thick Neck: No Thyromental Distance: < 3.5 Finger Breadths Oral Cavity: + Dental Abnormalities ASA: ASA3 NPO Status Date of Last Intake of Fluids: 08/13/20 Date of Last Intake of Solid Food: 08/13/20 Procedure Planning Contraindications for Sedation: none Current Medications Reviewed: Yes Notes The planned sedation has been discussed with the patient. Informed Consent was obtained. I have identified the patient, determined the appropriateness of sedation and have assessed the patient immediately prior to the procedure. All medicine(s) and interventions are by my order.
[2020-08-14] MEDS ORDERED: MIDAZOLAM HCL 5 MG/ML 1 ML VIAL ONE (15:00)
[2020-08-14] MEDS ORDERED: fentaNYL citrate 100 MCG/2 ML VIAL ONE (15:00)
[2020-08-14] MEDS ORDERED: LIDOCAINE HCL 1% 20 ML VIAL ONE (15:01)
[2020-08-14] MEDS ORDERED: BACITRACIN INJ 50,000 UNIT VIAL ONE (15:01)
[2020-08-14] MEDS ORDERED: BUPIVACAINE 0.25% 30 ML VIAL ONE (15:01)
[2020-08-14] MEDS ORDERED: METOPROLOL TARTRATE 1 MG/ML VIAL IV ONE (16:47)
--- NOTE | 2020-08-14 17:16 | Hospitalist Progress Note ---
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 Nausea, vomiting, diarrhea Likely due to mild Enteritis --CT ABD: No bowel obstruction or bowel wall thickening. Scattered small bowel air-fluid levels may be physiologic or reflect a mild enteritis. Colonic diverticulosis without acute diverticulitis. Cholecystectomy. Pathologic thickening of the fundal endometrium measures up to 10 mm. Additionally, there are a few subcentimeter cystic foci of the left fundal uterus. Correlation with a nonemergent follow-up pelvic ultrasound recommended. -COVID PCR:Negative -Received gentle IV fluids -Symptoms resolved -Monitor electrolytes, renal function -Consider stool studies if recurrence of symptoms (4) Atrial fibrillation with RVR: H/O paroxysmal atrial fibrillation Chronic conduction system disease Possible tachybradycardia syndrome IV heparin on hold for pacer Appreciate cardiology input Continue metoprolol Plan for pacemaker insertion today (5) History of right MCA stroke: Continue Plavix Discontinue aspirin as started on IV Heparin (6) CKD (chronic kidney disease) stage 3, GFR 30-59 ml/min: Creatinine at baseline Monitor renal function Avoid nephrotoxic agents as able (7) Type 2 diabetes mellitus: Diet controlled ISS while hospitalized (8) HTN (hypertension): Continue Metoprolol, lisinopril, spironolactone (9) Generalized weakness: Continue Escitalopram Weaned off of Ativan as able (Patient takes 0.5 mg daily PRN) (10) Dyslipidemia: Continue statin DVT Px: On IV Heparin SCDs Code status: DNI/DNR Admission and Anticipated Discharge Date Admission Date: August 12, 2020 Subjective Patient is seen and examined at bedside No new complaints States feeling well today Planned for Pacemaker placement today Denies chest pain, SOB, dizziness, abd pain IV heparin on hold this morning Review of Systems Review of Systems: All systems reviewed & are unremarkable except as noted in HPI & below Physical Exam Physical Exam: Physical Exam: Vitals signs as noted above General Appearance:Thin, elderly, no apparent distress Head: normocephalic, Atraumatic, +Hearing loss Eyes: normal inspection, EOMI Neck: supple, Trachea midline Respiratory/Chest: Normal breath sounds, CTA, No accessory muscle use Cardiovascular: S1, S2, + murmur, +Bradycardia Abdomen/GI:Soft, Non tender, Bowel sounds present Extremities/Musculoskelatal:normal inspection, no edema Neurologic/Psych:grossly no focal neurological deficits Skin: normal color, warm Results & Data Results & Data ([facility]) Vital Signs (Past 12 Hours) Vital Signs Temp Pulse Pulse Pulse Resp BP BP 08/14/20 17:12 137 H 172/82 H 08/14/20 15:54 52 L 08/14/20 11:52 36.6 C 47 L 19 155/65 H 08/14/20 07:46 46 L 08/14/20 07:13 36.6 C 51 L 18 BP Pulse Ox 08/14/20 17:12 08/14/20 15:54 08/14/20 11:52 94 08/14/20 07:46 08/14/20 07:13 177/70 H 93 Laboratory Results Short CBC 08/14/20 Range/Units 05:22 WBC 8.81 (4.8-10.8) K/uL Hgb 12.6 (12.0-16.0) g/dL Hct 36.9 L (37-47) % Plt Count 230 (130-400) K/uL BMP 08/14/20 05:22 Sodium 140 Potassium 3.8 Chloride 110 H Carbon Dioxide 24 BUN 19 H Creatinine 1.40 H Glucose 117 H Calcium 9.0 (1) Vomiting Nausea presence: unspecified Vomiting Intractability: unspecified Vomiting type: unspecified Qualified Code(s): R11.10 - Vomiting, unspecified (2) Type 2 diabetes mellitus Diabetes mellitus ell teacher insulin use: without senior living use Diabetes mellitus complication status: with kidney complications Diabetes mellitus complication detail: with chronic kidney disease Chronic kidney disease stage: stage 3 (moderate) Qualified Code(s): 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 (3) HTN (hypertension) 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 type: essential hypertension Qualified Code(s): I10 - Essential (primary) hypertension
--- NOTE | 2020-08-14 17:27 | Post Anesthesia Assessment ---
Date of Service August 14, 2020 Post Sedation Assessment Vital Signs Temp Pulse Pulse Pulse Resp BP BP 08/14/20 17:12 137 H 172/82 H 08/14/20 15:54 52 L 08/14/20 11:52 36.6 C 47 L 19 155/65 H 08/14/20 07:46 46 L 08/14/20 07:13 36.6 C 51 L 18 08/14/20 03:11 36.4 C L 59 L 18 172/84 H 08/14/20 00:42 59 L 08/13/20 23:08 37 C 60 18 08/13/20 18:56 36.9 C 56 L 18 154/73 H BP Pulse Ox 08/14/20 17:12 08/14/20 15:54 08/14/20 11:52 94 08/14/20 07:46 08/14/20 07:13 177/70 H 93 08/14/20 03:11 92 08/14/20 00:42 08/13/20 23:08 163/88 H 92 08/13/20 18:56 96 Recovery Score Activity: Moves 4 extremities Respiration: Deep Breath/Cough Circulation: +/-20% PreAnes Value Consciousness: Fully Awake Oxygen Saturation: > 92% On Room Air Discharge Sedation Level of Care: Fast Track Phase II Post Sedation Plan On clinical assessment, the patient appears to have tolerated the sedation without complications. Patient is recovering as anticipated. Patient will continue to be monitored by nursing and may be discharged when sedation discharge criteria are met per below protocol. Upon Completions of procedure up to 15 minutes continue every 5 minute vital signs and the P.A.R. score; then discharge to a Phase I or Fast Track to Phase II per the following guidelines: * Discharge Patient to appropriate Phase II area if PAR is 8 or greater or return to pre- procedure baseline. The post - procedure orders will be as directed. * If PAR score is less than 8 or not return to pre-procedure baseline then patient will follow Phase I monitoring till PAR is reached for Phase II. The Phase I may be done in procedure room or may call to secure a Phase I area. * If naloxone or flumazenil are used for reversal, hold in Phase I for continued monitoring from when last reversal dose was given for a minimum of 60 minutes or longer pending the nurse and/or physician discretion of patient condition before discharge to Phase II. Please call the Sedation Physician to re-evaluate and complete post-note for discharge to Phase II area. Do NOT discharge from procedure sedation or Phase 1 until post- sedation evaluation note is complete by procedure /sedation MD Sedation Discharge Instructions to be given to the patient at discharge to home.
--- NOTE | 2020-08-14 17:28 | Operative Report ---
Post Operative Report Pre & Post Diagnosis TBS Operation Date: 08/14/20 15:00 <No data on this case meets the specified criteria> I identified the patient and participated in the time-out.: Yes Procedure Operation Date: 08/14/20 15:00 Actual Procedures p Pacer with A/V Leads (Dual) - Ailyn Mcelroy DO intracardiac HIS bundle mapping Surgeon Ailyn Mcelroy, [employer] none Estimated Blood Loss 25 Findings Consistent with Post-Op Diagnosis Specimens none Description of Procedure see official procedure I attest to the content of the Intraoperative Record and any orders documented therein. Any exceptions are noted below.
[2020-08-14] MEDS ORDERED: WARFARIN SOD 5 MG TAB PO SCH (18:00)
[2020-08-14] MEDS: AMIODARONE 200 MG TAB PO SCH (18:10)
[2020-08-14] MEDS: ESCITALOPRAM OXALATE 10 MG TAB PO SCH (19:45)
[2020-08-14] MEDS: ATORVASTATIN 40 MG TAB PO SCH (19:45)
[2020-08-15 06:25] LABS: Mean Corpuscular Hemoglobin 35.9 pg (25-34); Mean Corpuscular Hgb Conc 34.2 g/dL (32-36); Mean Platelet Volume 11.7 fL (7.4-10.4); Platelet Count 203 K/uL (130-400); RDW Coefficient of Variation 13.6 % (11.5-14.5); RDW Standard Deviation 51.7 fL (36.4-46.3); Red Blood Count 3.62 M/uL (4.2-5.4); White Blood Count 10.71 K/uL (4.8-10.8)
[2020-08-15 06:34] LABS: INR 1.1 (0.9-1.1); Prothrombin Time 11.6 Seconds (9.0-12.0)
[2020-08-15 06:56] LABS: BUN Creatinine Ratio 14.9 (10-20); Creatinine Clr Calc Pharmacy 30.2 ml/min; Est GFR (African American) 42.4; Est GFR (Non-African American) 36.6; Magnesium 1.8 mg/dl (1.8-2.4)
[2020-08-15] MEDS: lisinopril 5 MG TAB PO SCH ×2 (08:11→21:04)
[2020-08-15] MEDS: FAMOTIDINE 20 MG TAB PO SCH ×2 (08:12→21:03)
[2020-08-15] MEDS: METOPROLOL SUCC 25MG EXT REL TAB PO SCH (08:12)
[2020-08-15] MEDS: CLOPIDOGREL BISULFATE 75 MG TAB PO SCH (08:12)
[2020-08-15] MEDS: AMIODARONE 200 MG TAB PO SCH ×3 (08:12→17:14)
[2020-08-15] MEDS: SPIRONOLACTONE 25 MG TAB PO SCH (08:12)
[2020-08-15] MEDS: allopurinoL 100 MG TAB PO SCH (08:12)
[2020-08-15] MEDS: INSULIN ASPART 100 UNITS/ML 3 ML PEN SC SCH ×4 (08:17→21:02)
--- NOTE | 2020-08-15 09:01 | XRay Report ---
XR chest 2V PA/lateral CLINICAL HISTORY: post ppm COMPARISON STUDY: Chest radiograph August 12, 2020. FINDINGS: There is no pneumothorax following placement of a dual-lead left subclavian pacemaker. Lead tips project over the right atrial appendage and right ventricle. Cardiomediastinal silhouette is no rmal. There is no evidence for pulmonary edema. There is no consolidation. Cholecystectomy clips are noted. IMPRESSION: No pneumothorax following placement of a dual-lead left subclavian pacemaker. ACT 112: Negative or not required by law. Electronically signed by: Emir Grier M.D. 08/15/2020 9:00 AM
--- NOTE | 2020-08-15 10:15 | Cardiology Progress Note ---
Date of Service August 15, 2020 Assessment & Plan (1) Paroxysmal atrial fibrillation with RVR: Patient is a 74-year-old female with history of hypertension hypertensive heart disease and chronic conduction system disease with left bundle branch block interventricular conduction disease on prior EKGs and past history of atrial tachycardia's. Recent history is notable for left middle cerebral artery distribution stroke in February 2020 raising concerns for possible underlying atrial fibrillation. In follow-up with possible recent neurologic complaint in June patient underwent Zio patch monitor which demonstrated paroxysmal atrial fibrillation notably recurring at the time of this admission. Rhythm is notably coarse atrial fibrillation versus atypical atrial flutter Patient had resting bradycardia on outpatient therapy Patient now status post dual-chamber pacemaker insertion. Tolerated procedure well and is remained in sinus rhythm overnight after initiation of antiarrhythmic therapy with amiodarone. Plan: Continue amiodarone Reduce metoprolol succinate to 25 mg p.o. daily Increase lisinopril to 5 mg p.o. twice daily given hypertension Patient was significantly elevated chads vas 2 score including past embolic stroke, will initiate anticoagulation with apixaban 2.5 mg p.o. twice daily. Aspirin discontinued. We will continue clopidogrel at least 30 days Maintain telemetry at least an additional 24 hours with EKG in a.m. given initiation of antiarrhythmic therapies as well as mild dementia and impulsive nature Discussed all above with patient and daughter (2) History of right MCA stroke: Minimal residual however with some elements of dementia, impulsive decision making. Patient following postoperative instructions, sling in place (3) HTN (hypertension): (4) LBBB (left bundle branch block): (5) CKD (chronic kidney disease) stage 3, GFR 30-59 ml/min: Admission and Anticipated Discharge Date Admission Date: August 12, 2020 Subjective Patient seen and examined, chart, medications, telemetry reviewed. No atrial fibrillation overnight, pacemaker functioning appropriately. No chest pains or shortness of breath. Review of Systems Review of Systems: All systems reviewed & are unremarkable except as noted in HPI & below Physical Exam Constitutional: + thin; no acute distress Eyes: PERRL, conjunctivae normal, anicteric sclerae ENMT: external ear and nose normal, oropharynx normal Neck: trachea midline, no thyromegaly Respiratory: normal respiratory effort, lungs clear to auscultation Cardiovascular: Rate/Rhythm: regular rate and regular rhythm Heart Sounds: normal S1, normal S2 and + murmur; no gallop Palpation: normal PMI Vessels: normal carotid upstroke and radial pulses present; no JVD and no carotid bruit Extremities: no edema Chest (Breasts): Chest: + pacemaker (Site without hematoma or tenderness, light bandage in place) Gastrointestinal (Abdomen): normal bowel sounds, soft, nontender, no hepatosplenomegaly Musculoskeletal: no cyanosis or clubbing, extremities motor strength 5/5 Skin: no rashes, warm and dry Neurologic: PERRL, EOMI, accommodation nl, no face palsy, no dysarthria Psychiatric: A+Ox3, euthymic affect Results & Data ([facility]) Vital Signs (Past 12 Hours) Vital Signs Temp Pulse Pulse Resp BP Pulse Ox 08/15/20 07:30 36.6 C 50 L 20 163/79 H 95 08/15/20 03:19 36.8 C 106 H 18 166/72 H 95 08/14/20 23:00 36.6 C 67 18 155/93 H 96 Laboratory Results Laboratory Results - last 24 hr 08/14/20 08/14/20 08/14/20 11:33 17:53 20:22 WBC RBC Hgb Hct MCV MCH MCHC RDW Std Deviation RDW Coeff of Etta Plt Count MPV PT INR Sodium Potassium Chloride Carbon Dioxide Anion Gap BUN Creatinine Est Cr Clr Drug Dosing Est GFR ( Amer) Est GFR (Non-Af Amer) BUN/Creatinine Ratio Glucose POC Glucose 105 H 116 H 114 H Calcium Magnesium 08/15/20 08/15/20 08/15/20 05:56 05:56 05:56 WBC 10.71 RBC 3.62 L Hgb 13.0 Hct 38.0 MCV 105.0 H MCH 35.9 H MCHC 34.2 RDW Std Deviation 51.7 H RDW Coeff of Etta 13.6 Plt Count 203 MPV 11.7 H PT 11.6 INR 1.1 Sodium 139 Potassium 4.0 Chloride 108 H Carbon Dioxide 22 Anion Gap 8.0 BUN 21 H Creatinine 1.41 H Est Cr Clr Drug Dosing 30.2 Est GFR ( Amer) 42.4 Est GFR (Non-Af Amer) 36.6 BUN/Creatinine Ratio 14.9 Glucose 102 H POC Glucose Calcium 9.0 Magnesium 1.8 08/15/20 07:36 WBC RBC Hgb Hct MCV MCH MCHC RDW Std Deviation RDW Coeff of Etta Plt Count MPV PT INR Sodium Potassium Chloride Carbon Dioxide Anion Gap BUN Creatinine Est Cr Clr Drug Dosing Est GFR ( Amer) Est GFR (Non-Af Amer) BUN/Creatinine Ratio Glucose POC Glucose 116 H Calcium Magnesium Diagnostic Findings Chest x-ray 08/15/2020: CLINICAL HISTORY: post ppm COMPARISON STUDY: Chest radiograph August 12, 2020. FINDINGS: There is no pneumothorax following placement of a dual-lead left subclavian pacemaker. Lead tips project over the right atrial appendage and right ventricle. Cardiomediastinal silhouette is normal. There is no evidence for pulmonary edema. There is no consolidation. Cholecystectomy clips are noted. IMPRESSION: No pneumothorax following placement of a dual-lead left subclavian pacemaker. (1) HTN (hypertension) 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 type: essential hypertension Qualified Code(s): I10 - Essential (primary) hypertension
[2020-08-15] MEDS: APIXABAN 2.5 MG TAB PO SCH ×2 (11:54→21:03)
--- NOTE | 2020-08-15 17:02 | Hospitalist Progress Note ---
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 Nausea, vomiting, diarrhea Likely due to mild Enteritis --CT ABD: No bowel obstruction or bowel wall thickening. Scattered small bowel air-fluid levels may be physiologic or reflect a mild enteritis. Colonic diverticulosis without acute diverticulitis. Cholecystectomy. Pathologic thickening of the fundal endometrium measures up to 10 mm. Additionally, there are a few subcentimeter cystic foci of the left fundal uterus. Correlation with a nonemergent follow-up pelvic ultrasound recommended. -COVID PCR:Negative -Received gentle IV fluids -Monitor electrolytes, renal function -Consider stool studies if recurrence of symptoms -Resolved (4) Atrial fibrillation with RVR: H/O paroxysmal atrial fibrillation Chronic conduction system disease Possible tachybradycardia syndrome S/P dual-chamber pacemaker insertion IV heparin discontinued Appreciate cardiology input Continue metoprolol 25 mg daily Started on apixaban 2.5 mg twice a day Plan to continue clopidogrel for now Started on amiodarone Repeat EKG in the morning (5) History of right MCA stroke: Continue Plavix Discontinued aspirin as started on Eliquis (6) CKD (chronic kidney disease) stage 3, GFR 30-59 ml/min: Creatinine at baseline Monitor renal function Avoid nephrotoxic agents as able (7) Type 2 diabetes mellitus: Diet controlled ISS while hospitalized (8) HTN (hypertension): Continue Metoprolol, lisinopril, spironolactone (9) Generalized weakness: Continue Escitalopram Weaned off of Ativan as able (Patient takes 0.5 mg daily PRN) (10) Dyslipidemia: Continue statin DVT Px: Eliquis Code status: DNI/DNR Admission and Anticipated Discharge Date Admission Date: August 12, 2020 Subjective Patient is seen and examined at bedside Reports mild discomfort at site of pacer CXR showed no pneumothorax Poor historian due to hearing impairment Denies SOB, dizziness, abd pain Review of Systems Review of Systems: All systems reviewed & are unremarkable except as noted in HPI & below Physical Exam Physical Exam: Physical Exam: Vitals signs as noted above General Appearance:Thin, elderly, no apparent distress Head: normocephalic, Atraumatic, +Hearing loss Eyes: normal inspection, EOMI Neck: supple, Trachea midline Respiratory/Chest: Normal breath sounds, CTA, No accessory muscle use Cardiovascular: S1, S2, + murmur, +Pacer on Left side Abdomen/GI:Soft, Non tender, Bowel sounds present Extremities/Musculoskelatal:normal inspection, no edema Neurologic/Psych:grossly no focal neurological deficits Skin: normal color, warm Results & Data Results & Data ([facility]) Vital Signs (Past 12 Hours) Vital Signs Temp Pulse Pulse Resp BP Pulse Ox 08/15/20 15:35 36.3 C L 60 15 177/80 H 95 08/15/20 12:00 36.6 C 62 14 141/75 H 95 08/15/20 08:20 72 08/15/20 07:30 36.6 C 50 L 20 163/79 H 95 Laboratory Results Short CBC 08/15/20 Range/Units 05:56 WBC 10.71 (4.8-10.8) K/uL Hgb 13.0 (12.0-16.0) g/dL Hct 38.0 (37-47) % Plt Count 203 (130-400) K/uL BMP 08/15/20 05:56 Sodium 139 Potassium 4.0 Chloride 108 H Carbon Dioxide 22 BUN 21 H Creatinine 1.41 H Glucose 102 H Calcium 9.0 (1) Vomiting Nausea presence: unspecified Vomiting Intractability: unspecified Vomiting type: unspecified Qualified Code(s): R11.10 - Vomiting, unspecified (2) Type 2 diabetes mellitus Diabetes mellitus assisted insulin use: without assisted use Diabetes mellitus complication status: with kidney complications Diabetes mellitus complication detail: with chronic kidney disease Chronic kidney disease stage: stage 3 (moderate) Qualified Code(s): 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 (3) HTN (hypertension) 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 type: essential hypertension Qualified Code(s): I10 - Essential (primary) hypertension
[2020-08-15] MEDS ORDERED: OLANZapine 10 MG/2.1 ML SDV IM PRN (20:30)
[2020-08-15] MEDS: ATORVASTATIN 40 MG TAB PO SCH (21:03)
[2020-08-15] MEDS: ESCITALOPRAM OXALATE 10 MG TAB PO SCH (21:03)
[2020-08-16 06:15] LABS: Hematocrit (blood only) 38.8 % (37-47); Hemoglobin 13.3 g/dL (12.0-16.0); Mean Corpuscular Hemoglobin 35.8 pg (25-34); Mean Corpuscular Hgb Conc 34.3 g/dL (32-36); Mean Corpuscular Volume 104.3 fL (80-100); Mean Platelet Volume 11.9 fL (7.4-10.4); Platelet Count 221 K/uL (130-400); RDW Coefficient of Variation 13.4 % (11.5-14.5); RDW Standard Deviation 51.2 fL (36.4-46.3); Red Blood Count 3.72 M/uL (4.2-5.4); White Blood Count 11.97 K/uL (4.8-10.8)
[2020-08-16 06:53] LABS: BUN Creatinine Ratio 16.9 (10-20); Calcium 9.1 mg/dl (8.5-10.1); Creatinine Clr Calc Pharmacy 30.9 ml/min; Est GFR (African American) 43.5; Est GFR (Non-African American) 37.6
[2020-08-16] MEDS: FAMOTIDINE 20 MG TAB PO SCH ×2 (08:07→19:45)
[2020-08-16] MEDS: APIXABAN 2.5 MG TAB PO SCH ×2 (08:07→19:45)
[2020-08-16] MEDS: METOPROLOL SUCC 25MG EXT REL TAB PO SCH (08:08)
[2020-08-16] MEDS: AMIODARONE 200 MG TAB PO SCH (08:08)
[2020-08-16] MEDS: SPIRONOLACTONE 25 MG TAB PO SCH (08:09)
[2020-08-16] MEDS: allopurinoL 100 MG TAB PO SCH (08:09)
[2020-08-16] MEDS: CLOPIDOGREL BISULFATE 75 MG TAB PO SCH (08:09)
[2020-08-16] MEDS: INSULIN ASPART 100 UNITS/ML 3 ML PEN SC SCH ×4 (08:10→20:59)
[2020-08-16] MEDS: lisinopril 5 MG TAB PO SCH ×2 (08:10→19:45)
--- NOTE | 2020-08-16 09:55 | Cardiology Progress Note ---
Date of Service August 16, 2020 Assessment & Plan (1) Paroxysmal atrial fibrillation with RVR: Patient is a 74-year-old female with history of hypertension hypertensive heart disease and chronic conduction system disease with left bundle branch block interventricular conduction disease on prior EKGs and past history of atrial tachycardia's. Recent history is notable for left middle cerebral artery distribution stroke in February 2020 raising concerns for possible underlying atrial fibrillation. In follow-up with possible recent neurologic complaint in June patient underwent Zio patch monitor which demonstrated paroxysmal atrial fibrillation notably recurring at the time of this admission. Rhythm is notably coarse atrial fibrillation versus atypical atrial flutter Patient had resting bradycardia on outpatient therapy Patient now status post dual-chamber pacemaker insertion. Tolerated procedure well and is remained in sinus rhythm overnight after initiation of antiarrhythmic therapy with amiodarone. Plan: Continue amiodarone at 200 mg p.o. daily Continue metoprolol succinate 25 mg p.o. daily Increase lisinopril to 5 mg p.o. twice daily given hypertension Continue anticoagulation with apixaban 2.5 mg p.o. twice daily. Aspirin discontinued. We will continue clopidogrel at least 30 days Outpatient appointment with pacemaker clinic and wound check already scheduled Discussed all above with patient and daughter (2) History of right MCA stroke: Minimal residual however with some elements of dementia, impulsive decision making. Mild in-hospital delirium Patient following postoperative instructions, sling in place (3) HTN (hypertension): (4) LBBB (left bundle branch block): (5) CKD (chronic kidney disease) stage 3, GFR 30-59 ml/min: Admission and Anticipated Discharge Date Admission Date: August 12, 2020 Subjective Patient was seen and examined, chart, medications, telemetry reviewed. Patient disoriented last night and this morning. No chest pains tachypalpitations dizziness. No irritation at pacemaker site Telemetry without arrhythmias Physical Exam Constitutional: + thin; no acute distress Eyes: PERRL, conjunctivae normal, anicteric sclerae ENMT: external ear and nose normal, oropharynx normal Neck: trachea midline, no thyromegaly Respiratory: normal respiratory effort, lungs clear to auscultation Cardiovascular: Rate/Rhythm: regular rate and regular rhythm Heart Sounds: normal S1, normal S2 and + murmur; no gallop Palpation: normal PMI Vessels: normal carotid upstroke and radial pulses present; no JVD and no carotid bruit Extremities: no edema Chest (Breasts): Chest: + pacemaker (Site without hematoma or tenderness, light bandage in place) Gastrointestinal (Abdomen): normal bowel sounds, soft, nontender, no hepatosplenomegaly Musculoskeletal: no cyanosis or clubbing, extremities motor strength 5/5 Skin: no rashes, warm and dry Neurologic: PERRL, EOMI, accommodation nl, no face palsy, no dysarthria Psychiatric: Mildly disoriented Results & Data ([facility]) Vital Signs (Past 12 Hours) Vital Signs Temp Pulse Resp BP Pulse Ox 08/16/20 07:30 36.6 C 69 16 155/69 H 95 08/16/20 03:09 36.9 C 70 18 161/79 H 96 08/15/20 23:32 36.4 C L 82 18 160/81 H 98 Laboratory Results Laboratory Results - last 24 hr 08/15/20 08/15/20 08/16/20 16:47 20:34 05:46 WBC 11.97 H RBC 3.72 L Hgb 13.3 Hct 38.8 MCV 104.3 H MCH 35.8 H MCHC 34.3 RDW Std Deviation 51.2 H RDW Coeff of Etta 13.4 Plt Count 221 MPV 11.9 H Sodium Potassium Chloride Carbon Dioxide Anion Gap BUN Creatinine Est Cr Clr Drug Dosing Est GFR ( Amer) Est GFR (Non-Af Amer) BUN/Creatinine Ratio Glucose POC Glucose 117 H 147 H Calcium 08/16/20 08/16/20 05:46 07:31 WBC RBC Hgb Hct MCV MCH MCHC RDW Std Deviation RDW Coeff of Etta Plt Count MPV Sodium 137 Potassium 4.0 Chloride 106 Carbon Dioxide 22 Anion Gap 9.0 BUN 23 H Creatinine 1.38 H Est Cr Clr Drug Dosing 30.9 Est GFR ( Amer) 43.5 Est GFR (Non-Af Amer) 37.6 BUN/Creatinine Ratio 16.9 Glucose 128 H POC Glucose 121 H Calcium 9.1 (1) HTN (hypertension) 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 type: essential hypertension Qualified Code(s): I10 - Essential (primary) hypertension
--- NOTE | 2020-08-16 16:39 | Hospitalist Progress Note ---
Date of Service August 16, 2020 Assessment & Plan (1) Nausea: (2) Vomiting: (3) Diarrhea: Patient is a 74 yr female with H/O Paroxysmal atrial fibrillation, hypertension, history of right MCA stroke with mild left-sided residual weakness, CKD III, generalized anxiety, diet-controlled type 2 diabetes and other medical problems listed below who presents with nausea, vomiting and generalized weakness for the past few days. Nausea, vomiting, diarrhea Likely due to mild Enteritis --CT ABD: No bowel obstruction or bowel wall thickening. Scattered small bowel air-fluid levels may be physiologic or reflect a mild enteritis. Colonic diverticulosis without acute diverticulitis. Cholecystectomy. Pathologic thickening of the fundal endometrium measures up to 10 mm. Additionally, there are a few subcentimeter cystic foci of the left fundal uterus. Correlation with a nonemergent follow-up pelvic ultrasound recommended. -COVID PCR:Negative -Received gentle IV fluids -Monitor electrolytes, renal function -Consider stool studies if recurrence of symptoms -Resolved Delirium Chronic Hallucinations/Dementia since CVA--Reported by family Reorient frequently Avoid Benzos Supportive care (4) Atrial fibrillation with RVR: H/O paroxysmal atrial fibrillation Chronic conduction system disease Possible tachybradycardia syndrome S/P dual-chamber pacemaker insertion IV heparin discontinued Appreciate cardiology input Continue metoprolol 25 mg daily Continue apixaban 2.5 mg BID for anticoagulation Plan to continue clopidogrel for now Continue amiodarone 200mg daily Needs follow up with Cardiology upon discharge (5) History of right MCA stroke: Continue Plavix Discontinued aspirin as started on Eliquis (6) CKD (chronic kidney disease) stage 3, GFR 30-59 ml/min: Creatinine at baseline Monitor renal function Avoid nephrotoxic agents as able (7) Type 2 diabetes mellitus: Diet controlled ISS while hospitalized (8) HTN (hypertension): Continue Metoprolol, lisinopril, spironolactone Lisinopril dose increased to 5mg BID (9) Generalized weakness: Continue Escitalopram Weaned off of Ativan as able especially given hallucinations/Elderly (Patient takes 0.5 mg daily PRN) (10) Dyslipidemia: Continue statin Endometrial Thickening Incidental finding on CT Advised to follow up with OBGYN as outpatient DVT Px: Eliquis Code status: DNI/DNR Admission and Anticipated Discharge Date Admission Date: August 12, 2020 Subjective Patient is seen and examined at bedside Delirium overnight Has chronic hallucinations since CVA as per family at bedside Discussed with Cardiology today Patient states feeling well Denies chest pain, SOB, dizziness, abd pain, nausea Review of Systems Review of Systems: All systems reviewed & are unremarkable except as noted in HPI & below Physical Exam Physical Exam: Physical Exam: Vitals signs as noted above General Appearance:Thin, elderly, no apparent distress Head: normocephalic, Atraumatic, +Hearing loss Eyes: normal inspection, EOMI Neck: supple, Trachea midline Respiratory/Chest: Normal breath sounds, CTA, No accessory muscle use Cardiovascular: S1, S2, + murmur, +Pacer on Left side Abdomen/GI:Soft, Non tender, Bowel sounds present Extremities/Musculoskelatal:normal inspection, no edema Neurologic/Psych:grossly no focal neurological deficits Skin: normal color, warm Results & Data Results & Data ([facility]) Vital Signs (Past 12 Hours) Vital Signs Temp Pulse Resp BP BP Pulse Ox 08/16/20 15:44 36.7 C 63 18 132/82 96 08/16/20 12:00 36.4 C L 67 18 129/77 94 08/16/20 07:30 36.6 C 69 16 155/69 H 95 Laboratory Results Short CBC 08/16/20 Range/Units 05:46 WBC 11.97 H (4.8-10.8) K/uL Hgb 13.3 (12.0-16.0) g/dL Hct 38.8 (37-47) % Plt Count 221 (130-400) K/uL BMP 08/16/20 05:46 Sodium 137 Potassium 4.0 Chloride 106 Carbon Dioxide 22 BUN 23 H Creatinine 1.38 H Glucose 128 H Calcium 9.1 (1) Type 2 diabetes mellitus Chronic kidney disease stage: stage 3 (moderate) Diabetes mellitus complication detail: with chronic kidney disease Diabetes mellitus complication status: with kidney complications Diabetes mellitus long term care phlebotomist insulin use: without long term care phlebotomist use Qualified Code(s): 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 (2) HTN (hypertension) 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 type: essential hypertension Qualified Code(s): I10 - Essential (primary) hypertension (3) Vomiting Nausea presence: unspecified Vomiting Intractability: unspecified Vomiting type: unspecified Qualified Code(s): R11.10 - Vomiting, unspecified
[2020-08-16] MEDS: ATORVASTATIN 40 MG TAB PO SCH (19:45)
[2020-08-16] MEDS: ESCITALOPRAM OXALATE 10 MG TAB PO SCH (19:45)
--- NOTE | 2020-08-17 06:11 | Electrocardiogram Report ---
Test Reason : Blood Pressure : / mmHG Vent. Rate : 068 BPM Atrial Rate : 068 BPM P-R Int : 180 ms QRS Dur : 126 ms QT Int : 436 ms P-R-T Axes : 068 -61 095 degrees QTc Int : 463 ms Sinus rhythm with occasional Premature ventricular complexes Left axis deviation Non-specific intra-ventricular conduction block Septal infarct (cited on or before 12-AUG-2020) Abnormal ECG When compared with ECG of 14-AUG-2020 06:35, No significant change Confirmed by Marvel Granados ([id number]) on 08/17/2020 6:11:24 AM Referred By: REFERRED SELF Confirmed By:Marvel Granados
[2020-08-17 07:47] LABS: Hematocrit (blood only) 39.4 % (37-47); Hemoglobin 13.6 g/dL (12.0-16.0); Mean Corpuscular Hemoglobin 36.2 pg (25-34); Mean Corpuscular Hgb Conc 34.5 g/dL (32-36); Mean Corpuscular Volume 104.8 fL (80-100); Mean Platelet Volume 11.9 fL (7.4-10.4); Platelet Count 223 K/uL (130-400); RDW Coefficient of Variation 13.6 % (11.5-14.5); RDW Standard Deviation 51.9 fL (36.4-46.3); Red Blood Count 3.76 M/uL (4.2-5.4); White Blood Count 11.34 K/uL (4.8-10.8)
[2020-08-17] MEDS: lisinopril 5 MG TAB PO SCH (08:07)
[2020-08-17] MEDS: INSULIN ASPART 100 UNITS/ML 3 ML PEN SC SCH (08:07)
[2020-08-17] MEDS: FAMOTIDINE 20 MG TAB PO SCH (08:07)
[2020-08-17] MEDS: APIXABAN 2.5 MG TAB PO SCH (08:08)
[2020-08-17] MEDS: CLOPIDOGREL BISULFATE 75 MG TAB PO SCH (08:08)
[2020-08-17] MEDS: SPIRONOLACTONE 25 MG TAB PO SCH (08:08)
[2020-08-17] MEDS: allopurinoL 100 MG TAB PO SCH (08:08)
[2020-08-17] MEDS: METOPROLOL SUCC 25MG EXT REL TAB PO SCH (08:08)
[2020-08-17] MEDS ORDERED: AMIODARONE 200 MG TAB PO SCH (09:00)
[2020-08-17 09:01] LABS: BUN Creatinine Ratio 17.4 (10-20); Calcium 9.2 mg/dl (8.5-10.1); Est GFR (African American) 40.3; Est GFR (Non-African American) 34.8; Magnesium 1.9 mg/dl (1.8-2.4); Potassium 3.9 mmol/L (3.5-5.1)
--- NOTE | 2020-08-17 10:44 | Cardiology Progress Note ---
Date of Service August 17, 2020 Assessment & Plan (1) Paroxysmal atrial fibrillation with RVR: Patient is a 74-year-old female with history of hypertension hypertensive heart disease and chronic conduction system disease with left bundle branch block interventricular conduction disease on prior EKGs and past history of atrial tachycardia's. Recent history is notable for left middle cerebral artery distribution stroke in February 2020 raising concerns for possible underlying atrial fibrillation. In follow-up with possible recent neurologic complaint in June patient underwent Zio patch monitor which demonstrated paroxysmal atrial fibrillation notably recurring at the time of this admission. Rhythm is notably coarse atrial fibrillation versus atypical atrial flutter Patient had resting bradycardia on outpatient therapy Patient now status post dual-chamber pacemaker insertion. Tolerated procedure well and is remained in sinus rhythm overnight after initiation of antiarrhythmic therapy with amiodarone. Plan: Continue amiodarone at 200 mg p.o. daily Continue metoprolol succinate 25 mg p.o. daily Increase lisinopril to 5 mg p.o. twice daily given hypertension Continue anticoagulation with apixaban 2.5 mg p.o. twice daily. Aspirin discontinued. We will continue clopidogrel at least 30 days Outpatient appointment with pacemaker clinic and wound check already scheduled Discussed all above with patient and daughter Patient on discharge appropriate medications (2) History of right MCA stroke: Minimal residual however with some elements of dementia Patient following postoperative instructions, sling in place (3) HTN (hypertension): (4) LBBB (left bundle branch block): (5) CKD (chronic kidney disease) stage 3, GFR 30-59 ml/min: Admission and Anticipated Discharge Date Admission Date: August 12, 2020 Subjective Patient seen and examined, chart, medications, telemetry reviewed. Patient better oriented today. Note acute complaints chest pains, shortness of breath, orthopnea. Brief run of atrial tachycardia last evening asymptomatic Physical Exam Constitutional: + thin; no acute distress Eyes: PERRL, conjunctivae normal, anicteric sclerae ENMT: external ear and nose normal, oropharynx normal Neck: trachea midline, no thyromegaly Respiratory: normal respiratory effort, lungs clear to auscultation Cardiovascular: Rate/Rhythm: regular rate and regular rhythm Heart Sounds: normal S1, normal S2 and + murmur; no gallop Palpation: normal PMI Vessels: normal carotid upstroke and radial pulses present; no JVD and no carotid bruit Extremities: no edema Chest (Breasts): Chest: + pacemaker (Site without hematoma or tenderness, light bandage in place) Gastrointestinal (Abdomen): normal bowel sounds, soft, nontender, no hepatosp lenomegaly Musculoskeletal: no cyanosis or clubbing, extremities motor strength 5/5 Skin: no rashes, warm and dry Neurologic: PERRL, EOMI, accommodation nl, no face palsy, no dysarthria Psychiatric: A+Ox3, euthymic affect Results & Data ([place]) Vital Signs (Past 12 Hours) Vital Signs Temp Pulse Resp BP Pulse Ox 08/17/20 07:45 36.3 C L 77 19 158/70 H 94 08/17/20 03:20 36.5 C 77 17 145/68 H 95 08/16/20 23:50 36.3 C L 67 17 129/58 L 95 Laboratory Results Laboratory Results - last 24 hr 08/16/20 08/16/20 08/16/20 11:28 16:34 20:39 WBC RBC Hgb Hct MCV MCH MCHC RDW Std Deviation RDW Coeff of Etta Plt Count MPV Sodium Potassium Chloride Carbon Dioxide Anion Gap BUN Creatinine Est Cr Clr Drug Dosing Est GFR ( Amer) Est GFR (Non-Af Amer) BUN/Creatinine Ratio Glucose POC Glucose 114 H 112 H 102 H Calcium Magnesium 08/17/20 08/17/20 08/17/20 07:28 07:28 07:34 WBC 11.34 H RBC 3.76 L Hgb 13.6 Hct 39.4 MCV 104.8 H MCH 36.2 H MCHC 34.5 RDW Std Deviation 51.9 H RDW Coeff of Etta 13.6 Plt Count 223 MPV 11.9 H Sodium 138 Potassium 3.9 Chloride 106 Carbon Dioxide 21 Anion Gap 11.0 BUN 26 H Creatinine 1.47 H Est Cr Clr Drug Dosing 29.0 Est GFR ( Amer) 40.3 Est GFR (Non-Af Amer) 34.8 BUN/Creatinine Ratio 17.4 Glucose 129 H POC Glucose 131 H Calcium 9.2 Magnesium 1.9 (1) HTN (hypertension) 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 type: essential hypertension Qualified Code(s): I10 - Essential (primary) hypertension
--- NOTE | 2020-08-17 11:26 | Hospitalist Progress Note ---
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 Nausea, vomiting, diarrhea Likely due to mild Enteritis --CT ABD: No bowel obstruction or bowel wall thickening. Scattered small bowel air-fluid levels may be physiologic or reflect a mild enteritis. Colonic diverticulosis without acute diverticulitis. Cholecystectomy. Pathologic thickening of the fundal endometrium measures up to 10 mm. Additionally, there are a few subcentimeter cystic foci of the left fundal uterus. Correlation with a nonemergent follow-up pelvic ultrasound recommended. -COVID PCR:Negative -Received gentle IV fluids -Monitor electrolytes, renal function -Consider stool studies if recurrence of symptoms -Resolved Delirium Chronic Hallucinations/Dementia since CVA--Reported by family Reorient frequently Avoid Benzos Supportive care Resolved (4) Atrial fibrillation with RVR: H/O paroxysmal atrial fibrillation Chronic conduction system disease Possible tachybradycardia syndrome S/P dual-chamber pacemaker insertion IV heparin discontinued Appreciate cardiology input Continue metoprolol 25 mg daily Continue apixaban 2.5 mg BID for anticoagulation Plan to continue clopidogrel for atleast 30 days Continue amiodarone 200mg daily Needs follow up with Cardiology upon discharge (5) History of right MCA stroke: Continue Plavix Discontinued aspirin as started on Eliquis (6) CKD (chronic kidney disease) stage 3, GFR 30-59 ml/min: Creatinine at baseline Monitor renal function Avoid nephrotoxic agents as able (7) Type 2 diabetes mellitus: Diet controlled ISS while hospitalized (8) HTN (hypertension): Continue Metoprolol, lisinopril, spironolactone Lisinopril dose increased to 5mg BID for better blood pressure control (9) Generalized weakness: Continue Escitalopram Weaned off of Ativan as able especially given hallucinations/Elderly (Patient takes 0.5 mg daily PRN) (10) Dyslipidemia: Continue statin Endometrial Thickening Incidental finding on CT Advised to follow up with OBGYN as outpatient DVT Px: Eliquis Code status: DNI/DNR Admission and Anticipated Discharge Date Admission Date: August 12, 2020 Subjective Patient is seen and examined at bedside States feeling well today No new complaints Discussed with cardiology today Family at bedside Denies chest pain, SOB, dizziness, abd pain, nausea Plan to discharge home today Review of Systems Review of Systems: All systems reviewed & are unremarkable except as noted in HPI & below Physical Exam Physical Exam: Physical Exam: Vitals signs as noted above General Appearance:Thin, elderly, no apparent distress Head: normocephalic, Atraumatic, +Hearing loss Eyes: normal inspection, EOMI Neck: supple, Trachea midline Respiratory/Chest: Normal breath sounds, CTA, No accessory muscle use Cardiovascular: S1, S2, + murmur, +Pacer on Left side Abdomen/GI:Soft, Non tender, Bowel sounds present Extremities/Musculoskelatal:normal inspection, no edema Neurologic/Psych:grossly no focal neurological deficits Skin: normal color, warm Results & Data Results & Data ([facility]) Vital Signs (Past 12 Hours) Vital Signs Temp Pulse Resp BP Pulse Ox 08/17/20 07:45 36.3 C L 77 19 158/70 H 94 08/17/20 03:20 36.5 C 77 17 145/68 H 95 08/16/20 23:50 36.3 C L 67 17 129/58 L 95 Laboratory Results Short CBC 08/17/20 Range/Units 07:28 WBC 11.34 H (4.8-10.8) K/uL Hgb 13.6 (12.0-16.0) g/dL Hct 39.4 (37-47) % Plt Count 223 (130-400) K/uL BMP 08/17/20 07:28 Sodium 138 Potassium 3.9 Chloride 106 Carbon Dioxide 21 BUN 26 H Creatinine 1.47 H Glucose 129 H Calcium 9.2 (1) Vomiting Nausea presence: unspecified Vomiting Intractability: unspecified Vomiting type: unspecified Qualified Code(s): R11.10 - Vomiting, unspecified (2) Type 2 diabetes mellitus Diabetes mellitus intermediate insulin use: without intermediate use Diabetes mellitus complication status: with kidney complications Diabetes mellitus complication detail: with chronic kidney disease Chronic kidney disease stage: stage 3 (moderate) Qualified Code(s): 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 (3) HTN (hypertension) 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 type: essential hypertension Qualified Code(s): I10 - Essential (primary) hypertension
--- NOTE | 2020-08-17 11:40 | Discharge Summary ---
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 Has had decreased appetite and some generalized weakness. Family also notes worsening confusion and was seen in outpatient setting for dementia work was completed for license removal. Patient lives with and receives some help from his care provider. Has been using her 's walker to ambulate due to weakness. Family member at bedside helps with providing history since patient is hard of hearing and pleasantly confused. Currently feels well without nausea or abdominal pain. Patient denies any fever, chills or malaise. Denies any chest pain or palpitations or shortness of breath. No lightheadedness, headache, visual changes, dysuria or constipation. Admission Exam Per Admitting Provider Physical Exam Physical Exam: General Appearance: WD/WN, vitals as above, NAD, sitting up in bed, pleasant, conversing easily Head: normocephalic, atraumatic Eyes: normal inspection, PERRL, conjunctivae normal, anicteric sclerae ENT: hard of hearing, external ear and nose normal, oropharynx normal Neck: normal visual inspection, trachea midline, no thyromegaly Respiratory: normal respiratory effort, lungs clear to auscultation, no wheeze, rales, rhonchi. No accessory muscle use Cardiovascular: bradycardia, no murmur appreciated, normal peripheral pulses, no BLE edema. Vessels: no JVD Chest: normal inspection of chest Abdomen/GI: normal bowel sounds, soft, nontender, no hepatosplenomegaly Extremities/Musculoskeletal: no cyanosis or clubbing, extremities motor strength 5/5 Neurologic: PERRL, EOMI, accommodation nl, no face palsy, no dysarthria, CN's II-XI intact bilaterally and moves all extremities Psychiatric: A+Ox3, not to situation, euthymic affect Skin: no rashes, normal color, warm/dry Principal Diagnosis Atrial fibrillation with rapid ventricular response Enteritis Endometrial thickening Discharge Data Allergies Allergy/AdvReac Type Severity Reaction Status Date / Time codeine Allergy Intermediate "UNSURE IF Verified 08/12/20 10:40 STILL ALLERGIC" Consultations 08/12/20 13:43 ED Decision to Admit Stat 08/12/20 17:15 Consult Case Management - Discharge Planning Routine 08/12/20 17:17 Consult Cardiology Routine 08/14/20 09:44 Consult Cardiology Routine Procedures Performed Operation Date: 08/14/20 15:00 Actual Procedures p Pacer with A/V Leads (Dual) - Ailyn Mcelroy DO s Bundle of his Recording - Ailyn Mcelroy DO --CT ABD: No bowel obstruction or bowel wall thickening. Scattered small bowel air-fluid levels may be physiologic or reflect a mild enteritis. Colonic diverticulosis without acute diverticulitis. Cholecystectomy. Pathologic thickening of the fundal endometrium measures up to 10 mm. Additionally, there are a few subcentimeter cystic foci of the left fundal uterus. Correlation with a nonemergent follow-up pelvic ultrasound recommended. 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 Nausea, vomiting, diarrhea Likely due to mild Enteritis --CT ABD: No bowel obstruction or bowel wall thickening. Scattered small bowel air-fluid levels may be physiologic or reflect a mild enteritis. Colonic diverticulosis without acute diverticulitis. Cholecystectomy. Pathologic thickening of the fundal endometrium measures up to 10 mm. Additionally, there are a few subcentimeter cystic foci of the left fundal uterus. Correlation with a nonemergent follow-up pelvic ultrasound recommended. -COVID PCR:Negative -Received gentle IV fluids -Monitor electrolytes, renal function -Consider stool studies if recurrence of symptoms -Resolved Delirium Chronic Hallucinations/Dementia since CVA--Reported by family Reorient frequently Avoid Benzos Supportive care Resolved (4) Atrial fibrillation with RVR: H/O paroxysmal atrial fibrillation Chronic conduction system disease Possible tachybradycardia syndrome S/P dual-chamber pacemaker insertion IV heparin discontinued Appreciate cardiology input Continue metoprolol 25 mg daily Continue apixaban 2.5 mg BID for anticoagulation Plan to continue clopidogrel for atleast 30 days Continue amiodarone 200mg daily Needs follow up with Cardiology upon discharge (5) History of right MCA stroke: Continue Plavix Discontinued aspirin as started on Eliquis (6) CKD (chronic kidney disease) stage 3, GFR 30-59 ml/min: Creatinine at baseline Monitor renal function Avoid nephrotoxic agents as able (7) Type 2 diabetes mellitus: Diet controlled ISS while hospitalized (8) HTN (hypertension): Continue Metoprolol, lisinopril, spironolactone Lisinopril dose increased to 5mg BID for better blood pressure control (9) Generalized weakness: Continue Escitalopram Weaned off of Ativan as able especially given hallucinations/Elderly (Patient takes 0.5 mg daily PRN) (10) Dyslipidemia: Continue statin Endometrial Thickening Incidental finding on CT Advised to follow up with OBGYN as outpatient DVT Px: Eliquis Code status: DNI/DNR Total Time Total Time Spent Total Time Spent (In Minutes): 43 minutes Total Time Includes: Examination of the Patient, Discharge Planning, Medication Reconciliation, Communication With Other Providers and Other Discharge Plan Discharge Items Patient Disposition: Home - Home Health Services Reason For Visit: N/V A FIB WITH RVR Discharge Diagnosis: Atrial fibrillation with rapid ventricular response Enteritis Endometrial thickening Activity: As commented below Activity Comment: do not raise the left elbow over the left shoulder for 1 month Lifting: No more than 10 pounds Lifting Comment: do not lift more than 10 pounds with the left arm for 2 weeks Bathing: Keep incision dry Bathing Comment: keep dressing on and dry until wound check next week Non-emergency contact: Primary Care Provider, Floor Care Specialist and Training Project Manager Call non-emergency contact if: you have any medication questions, your symptoms worsen, your pain is not controlled, your pain is worsening, your pain is unusual for you, your pain is concerning for you, you have a fever, your wound has increased redness, your wound has increased drainage and your wound pain has increased Follow-up/Referrals: Kasandra Antunez DO [Primary Care Provider] - (Date & Time 08/21/2020 11:20 AM Provider Kasandra Antunez DO [facility] ) Diet: Carb Consistent or DM2 and Lactose Intolerant Addtl Attending Provider Instructions: Follow-up with your primary care physician Dr. Antunez on 08/21/2020 11:20 AM as scheduled Follow up for device and wound check next week at [facility] cardiology on Monday08/21/2020 at 9:45am Follow-up with your kennel assistant Dr. Anne as recommended by your kennel assistant. Consider following up with your HARD METALS ENGRAVER HAND for further evaluation and management of endometrial thickening--incidental finding noted on your CT scan Medication Changes: 1) Your Clopidogrel (Plavix) --continue taking the medication for now. Further recommendations as per your kennel assistant 2) Stop Taking Aspirin 3) Start taking amiodarone 200 mg daily 4)Start taking apixaban 2.5 mg twice a day 5)Your lisinopril is increased to 5 mg twice a day 6)Your metoprolol dose is changed to 25 mg daily. 7)Stop taking Lorazepam as it would likely worsen delirium/hallucinations Seek immediate medical attention if your symptoms reoccur or worsen Pending Studies at Discharge: No Stand-Alone Forms: My [facility] [employer], Smoking Cessation Medications and DC Order Prescriptions: New Eliquis 2.5 mg Tablet 2.5 mg PO BID Qty: 60 RF: 1 metoprolol succinate 25 mg Tablet Extended Release 24 Hr 25 mg PO QAM Qty: 30 RF: 1 amiodarone 200 mg Tablet 200 mg PO DAILY Qty: 30 RF: 1 Continued clopidogrel 75 mg Tablet 75 mg PO QAM Qty: 30 RF: 0 atorvastatin 40 mg Tablet 40 mg PO QPM Qty: 30 RF: 0 famotidine 20 mg tablet 20 mg PO BID RF: 0 escitalopram oxalate 10 mg tablet 10 mg PO PM RF: 0 allopurinol 100 mg tablet 100 mg PO QAM RF: 0 spironolactone 25 mg tablet 25 mg PO QAM RF: 0 acetaminophen [Tylenol] 325 mg Capsule 325 mg PO Q6H PRN (Reason: pain/fever) RF: 0 Changed lisinopril 5 mg tablet 5 mg PO BID Qty: 60 RF: 0 Discontinued metoprolol succinate 25 mg tablet extended release 24 hr 37.5 mg PO QAM RF: 0 aspirin 81 mg Tablet,Delayed Release (Dr/Ec) 81 mg PO QAM RF: 0 lorazepam 0.5 mg tablet 0.5 mg PO DAILY PRN (Reason: Anxiety) RF: 0 Discharge Orders: Discharge Order (Routine); Ordered 08/17/20 Ordered By: Raymundo Bustamante Admission Data Admit Date/Time: 08/12/20 14:00 Attending Provider: Raymundo Bustamante Admit Provider: Vince Layne Primary Care Provider: Kasandra Antunez Other Providers: Vince Layne ; Yobany La ; [facility] ; Ailyn Mcelroy Other Interventions: Discharge Summary Assessment (RN) Last Done: 08/17/20 11:49
--- NOTE | 2020-08-21 18:11 | Operative Report (OR) ---
DATE OF OPERATION: 08/14/2020 PREOPERATIVE DIAGNOSIS: Tachybrady syndrome. POSTOPERATIVE DIAGNOSIS: Tachybrady syndrome. PROCEDURE: Dual chamber rate responsive permanent pacemaker (RV lead over the left bundle position) under fluoroscopic guidance along with intracardiac electrogram mapping of the His bundle region. SURGEON: Ailyn Mcelroy DO. ASSISTANTS: None. ANESTHESIA: Monitored conscious sedation administered under my supervision by Rosy Roblero. Start time 1532, end time 1725. Total of 3 mg of Versed and 75 mcg of fentanyl. INTRAVENOUS FLUIDS: 60 mL. ANTIBIOTICS: 1 gram of Ancef. CONTRAST: 25 mL. URINE OUTPUT: Not applicable. SPECIMENS: None. FINDINGS: See below. DRAINS: None. 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 Due to her tachybrady syndrome, she was recommended a pacemaker. CONSENT: Consent was obtained prior to the patient going into the electrophysiology lab. The patient was informed of the risks, benefits and alternatives of procedure. Risks include but not limited to sudden cardiac , cardiac arrhythmias, cerebrovascular accident, myocardial infarction, injury to the blood vessels, chamber of the heart, lung, bleeding, and infection. The patient understood these risks and agreed to the procedure as planned. Informed consent was obtained. DESCRIPTION OF THE PROCEDURE: The patient was brought into the electrophysiology lab in a fasting state. She was connected to continuous install technician. Timeout was performed to ensure patient identity and procedure correctly. The patient was prepped and draped over the left infraclavicular space in normal surgical standard fashion. Monitored conscious sedation was given throughout the procedure for the patient's comfort level. Edison precautions were maintained throughout the procedure. She received antibiotics prior to incision. 10 mL of 1% lidocaine-bupivacaine mixture were given in the left deltopectoral groove. Incision was made in the left deltopectoral groove. Blunt dissection was performed down to identify the cephalic vein. Cephalic vein was identified and isolated using 0 silk ties. The vein was nicked with 11 blade and a guidewire was inserted without any resistance. A 7-Lao SafeSheath was inserted through the guidewire without any resistance. Dilator was removed and a second guidewire was inserted through the sheath to allow for retained venous access. Sheath was removed. Initially a 7-Lao sheath flushed and dilator reinserted over it and then reinserted over the guidewire. The guidewire and dilator removed and the right atrial lead was briefly used as a backup lead while it was positioned in the left bundle, so we positioned the right atrial lead down into the right ventricular apex under fluoroscopic guidance and screwed it in. Then, the sheath was peeled away. I then set up to do the left bundle lead. I initially had a 7-Lao SafeSheath and the preformed His bundle sheath guide, but I was not able to find a His intracardiac mapping so I ended up switching out for a 9-Lao OptiSeal and using the deflectable His sheath, which then allowed me to do intracardiac mapping and find the His bundle where the AH was 83 milliseconds, HV was 64 milliseconds. I then marked where the His bundle was with the camera positioned in GOMEZ 30 on my fluoroscopy screen, came down about 2 cm from this in an imaginary line extending to the apex and marked that on my fluoroscopy screen, so I kind of had an idea of where I was going to place my left bundle lead. Then, I took out the deflectable His sheath and went back in with a preformed curved His sheath over a guidewire into the right ventricle and then with the lead, I positioned it down onto the septum and did a series of intermittent turning of the lead into the septum pausing to look at my QRS complex in V1 as well as my pacing stim to peak in V6 and my impedances. I ended up actually reposition the lead once because I found that it was not the best QRS complexes. Ultimately, as I took time to screw in the lead into the septum pausing to look at how my notch in V1 march through the QRS complex that lead as well as my pacing stim to QRS peak shortened and my impedance dropped. Once I was satisfied with those measurements, I then gave a puff of contrast to look at how well I was into the septum. Then ultimately when I was happy with the position, the His sheath was slit under fluoroscopic guidance and I kept the outer sheath. Then I unscrewed the backup lead that was positioned in the right ventricle apex and positioned this lead into the right atrial appendage under fluoroscopic guidance. There was adequate pacing and sensing thresholds. Of note, I did need to reposition this as well. There was no diaphragmatic stimulation with high output pacing. The atrial lead was then fixated to pectoralis muscle using 0 silk ties. Then I slit the 9-Lao OptiSeal sheath over the left bundle lead and secured the left bundle lead to the pectoralis muscle using 0 silk ties. Then, a pacemaker pocket was created using blunt dissection over the pectoralis muscle within the pectoral fascia. A pursestring was placed around the cephalic site to prevent any backbleeding. The pocket was flushed with copious amounts of bacitracin saline wash and inspected for hemostasis. The pulse generator was then attached to leads making sure the pins were in appropriate position, passed set screws and set screws were all tightened. Pulse generator was then placed in the antibiotic pouch followed then by being placed in the pocket, making sure the leads were lying flat beneath the device. The incision was then closed in a 3-layer fashion with 2-0 Vicryl interrupted suture followed by 3-0 Vicryl interrupted suture, followed by 4-0 Monocryl running stitch and Dermabond was applied followed by a Telfa and micropore dressing. EQUIPMENT: 1. Pulse generator is a [employer] Ruby XT DR DRAGAN Bajwa [id number], serial number [id number]. 2. Tyrx pouch, reference [id number], lot number [id number], expiration 05/27/2021. 3. Right atrial lead Medtronic 5076-52 cm, serial number [id number]. 4. Right ventricular lead, Medtronic 3830-69 cm, serial number [id number]. INTRAOPERATIVE TESTIN. The AH was 83 milliseconds, HV was 64 milliseconds. 2. Right atrial lead: P waves 3.9 millivolts, impedance 735 ohms, threshold 0.4 volts at 0.4 milliseconds. 3. Left bundle lead: R waves 23.3 millivolts, impedance 806 ohms, threshold 0.5 volts at 0.4 milliseconds. FINAL MEASUREMENTS THROUGH THE DEVICE: 1. Right atrial lead: P waves 2 millivolts, impedance 608 ohms, threshold 0.75 volts at 0.4 milliseconds. 2. Right ventricular lead: R waves 20 millivolts, impedance 741 ohms, threshold 0.5 volts at 0.4 milliseconds. FINAL PARAMETERS: MVP-R 70/130, right atrial amplitude 3.5 volts, pulse width 0.4 milliseconds, sensitivity 0.3 millivolts. Right ventricular amplitude 3.5 volts, pulse width 0.4 milliseconds, sensitivity 1.2 millivolts. IMPRESSION: Successful implantation of a dual chamber rate responsive permanent pacemaker (right ventricular lead was positioned in the left bundle position) along with intracardiac electrogram His bundle mapping secondary to tachybrady syndrome. PLAN: Monitor the patient overnight, 12-lead ECG, chest x-ray. She is not allowed to lift the left elbow over the left shoulder for 1 month. She cannot lift more than 10 pounds with the left arm for 2 weeks. She is to keep the dressing on and dry until her wound check next week. We will defer additional medications to general cardiology. She can start her anticoagulation tomorrow morning. I attest to the content of the Intraoperative Record and any orders documented therein. Any exceptions are noted below. LEOBARDO
== END 2020-08-17 12:39 | disposition home health service (06) | DRG 243 ==
LOC: ED 09:50 → 2S 14:00 → SUATTDRO 14:00 → 2S 16:26

== ENCOUNTER 2021-10-23 17:43 | Inpatient (IN) ==
--- NOTE | 2021-10-23 18:00 | Emergency Department Note ---
Impression & Plan Pneumonia, Hypoxia, Intractable nausea and vomiting ED Provider Note NAME: TATUM NOEL AGE: 76 SEX: F ARRIVES VIA: Ambulance INFORMANT: Patient ED PROVIDER(S): Nico Hamilton MD CHIEF COMPLAINT: Vomiting PLAN: Disposition: Admit MEDICAL DECISION MAKING: The patient is a pleasant 76-year-old woman with a past medical history of atrial fibrillation on Eliquis, amiodarone, metoprolol, history of permanent pacemaker, left bundle branch block, history of right MCA stroke, hypertension, CKD who presents to emergency department for evaluation of acute onset nausea and vomiting which began today. The patient's son reports she has a mild cough in the morning but this has been chronic for the past year. They deny fevers, chills, diarrhea or urinary symptoms. On arrival the patient is uncomfortable, afebrile with O2 saturation initially 92% on room air however upon returning to the room following episode of emesis in the waiting room she was noted to be in the low 80s on room air placed on nasal cannula and eventually oxy-mask. Patient appears clinically dry. She does have bilateral rhonchi. EKG without overt acute ischemia. Chest x-ray demonstrates suspected atelectasis however further clarified on CT of the abdomen pelvis as bibasilar groundglass opacities. Otherwise no acute intra-abdominal process. WBC 12K, nonspecific. H/H and platelets within normal limits. Chemistry without metabolic acidosis. VBG without significant abnormality. Creatinine 2.05 within patient's prior range values in the setting of CKD. Initial lactic acid 2.2. Electrolytes unremarkable. LFTs without significant abnormality. Troponin negative/undetectable. BNP within normal limits. Procalcitonin is not elevated. UA without convincing evidence of infection. COVID-19, influenza and RSV PCR were negative. The patient did stabilize with supplemental oxygen, DuoNeb, IV fluids and antiemetics. Zosyn ordered. Case was discussed with Dr. Mckenna, [facility] hospitalist, who will evaluate the patient for admission. Triage Nursing notes reviewed and agree them. Prior medical records reviewed Vital Signs: reviewed and remarkable for no significant abnormalities Differential diagnosis: Gastroenteritis, food borne illness, infections, appendicitis, diverticulitis, inflammatory bowel disease, obstruction, GI bleed, biliary pathology, volvulus, as well as other pathologies. ER treatment provided: See below. Diagnostics interpreted by me: ECG: Atrial paced rhythm, 65 bpm, left bundle branch block, no overt acute ischemia. Cardiac Monitoring: An order for continuous cardiac monitoring was placed and demonstrated Atrial paced rhythm, 65 bpm, no ectopy. Laboratory studies: See below Imaging studies: See below Consultation(s): Case was discussed with Dr. Mckenna, [facility] hospitalist, who will evaluate the patient for admission. HPI: The patient is a pleasant 76-year-old woman with a past medical history of atrial fibrillation on Eliquis, amiodarone, metoprolol, history of permanent pacemaker, left bundle branch block, history of right MCA stroke, hypertension, CKD who presents to emergency department for evaluation of acute onset nausea a nd vomiting which began today. The patient's son reports she has a mild cough in the morning but this has been chronic for the past year. They deny fevers, chills, diarrhea or urinary symptoms. ROS: See above HPI for pertinent positives & negatives. A total of 10 systems reviewed and were otherwise negative. PAST MEDICAL HISTORY:See Below PAST SURGICAL HISTORY:See Below FAMILY HISTORY:See Below SOCIAL HISTORY:See Below HOME MEDICATIONS:See Below ALLERGIES:See Below VITALS:See Below PHYSICAL EXAMINATION: GENERAL: Awake, alert, ill-appearing, in no distress HENT: Normocephalic, atraumatic. Oropharynx with dry mucous membranes and otherwise unremarkable. EYES: Normal conjunctiva. Sclera non-icteric. NECK: Supple. No nuchal rigidity. FROM. No JVD. RESPIRATORY: Rhonchi of bilateral lung de leon. CARDIAC: Regular rate, normal rhythm. Extremities warm and well perfused. Pulses equal. ABDOMEN: Soft, non-distended. No tenderness to palpation. No rebound or guarding. No masses. RECTAL: Deferred. MUSCULOSKELETAL: Chest examination reveals no tenderness. The back is symmetrical on inspection without obvious abnormality. There is no CVA tenderness to palpation. No joint edema. LOWER EXTREMITIES: Calves are equal size bilaterally and non-tender. No edema. No discoloration. NEURO: Normal sensorium. No sensory or motor deficits noted. SKIN: No rash or jaundice noted. ED COURSE: Critical Care: I have personally spent greater than 35 minutes of critical care time in the direct management of this patient. This includes bedside care, interpretation of diagnostic studies, and testing, discussion with consultants, patient, and family members, and other required patient management activities. This 35 minutes is in excess of all separately billable procedures. Nico Hamilton MD Past Med/Surg History Medical History (Updated 10/23/21 @ 23:24 by Nico Hamilton MD) Atrial fibrillation CKD (chronic kidney disease) stage 3, GFR 30-59 ml/min Degenerative disc disease, cervical Dyslipidemia MELQUIADES (generalized anxiety disorder) GERD without esophagitis Hearing loss History of adenomatous polyp of colon History of right MCA stroke HTN (hypertension) Hypertensive cardiomegaly Type 2 diabetes mellitus Vitamin D deficiency Surgical History History of arthroplasty of left knee History of carpal tunnel surgery History of cholecystectomy History of D&C History of excision of lesion Back - Dr. Tucker Family History Other Diabetes Heart disease Social History Smoking Status: Never smoker Second Hand Exposure: No; Hx Alcohol Use: Yes Hx Substance Use: No Preferred Language: Slovenian Communication Ability: Impaired Hearing Ability: Hard of Hearing Project Hire Required: No Beliefs That Will Affect Care: None marital status: Current Living Situation: Spouse Feels Safe at Home: Yes Assistive Devices: None Allergies Allergies Allergy/AdvReac Type Severity Reaction Status Date / Time codeine Allergy Intermediate "UNSURE IF Verified 10/23/21 21:54 STILL ALLERGIC" Home Meds Home Medications Medication Instructions Recorded Confirmed acetaminophen 325 mg capsule 325 mg PO Q6H PRN 06/11/19 10/23/21 (Tylenol) allopurinol 100 mg tablet 100 mg PO QAM 06/11/19 10/23/21 famotidine 20 mg tablet 20 mg PO BID 06/29/20 10/23/21 escitalopram oxalate 10 mg tablet 10 mg PO PM 08/12/20 10/23/21 amiodarone 200 mg tablet 200 mg PO QAM 08/03/21 10/23/21 albuterol sulfate 90 mcg/actuation 2 puff INHALATION QID PRN 10/23/21 10/23/21 aerosol inhaler levothyroxine 100 mcg tablet 100 mcg PO DAILYBB 10/23/21 10/23/21 ondansetron 4 mg disintegrating 4 mg PO Q8 PRN 10/23/21 10/23/21 tablet Previous Rx's Medication Instructions Recorded atorvastatin 40 mg tablet 40 mg PO QPM #30 tab 02/24/20 clopidogrel 75 mg tablet 75 mg PO QAM #30 tab 02/24/20 apixaban 2.5 mg tablet (Eliquis) 2.5 mg PO BID #60 tab 08/17/20 metoprolol succinate 25 mg 25 mg PO QAM #30 tab 08/17/20 tablet,extended release 24 hr Results & Data (ED) Vital Signs Vital Signs - 24 hr 10/23/21 17:46 10/23/21 18:15 10/23/21 18:18 Temperature 36.2 C L Temperature Source Temporal Artery Scan Pulse Rate 74 60 Pulse Rate [Apical] Pulse Rate from SpO2 Sensor 60 Pulse Rhythm [Apical] Respiratory Rate 20 23 Respiratory Effort / Characteristics Non-Labored Spontaneous Respiratory Depth Normal Respiratory Pattern Regular Blood Pressure 154/69 H Blood Pressure [Right Arm] Blood Pressure Mean 97 Blood Pressure Mean [Right Arm] Blood Pressure Position [Right Arm] Pulse Oximetry 92 86 L Oxygen Delivery Method Room Air Oxygen Flow Rate Sepsis Recent Fever Within 48 Hours No Sepsis New/Unexplained Change in Mental Status No Sepsis Action Taken by Nursing No Action Required 10/23/21 18:30 10/23/21 19:00 10/23/21 19:30 Temperature Temperature Source Pulse Rate 62 67 61 Pulse Rate [Apical] 60 Pulse Rate from SpO2 Sensor 62 66 61 Pulse Rhythm [Apical] Regular Respiratory Rate 26 H 27 H 21 Respiratory Effort / Characteristics Non-Labored Respiratory Depth Shallow Respiratory Pattern Regular Blood Pressure 143/73 H 167/80 H 173/67 H Blood Pressure [Right Arm] 143/73 H Blood Pressure Mean 96 109 102 Blood Pressure Mean [Right Arm] 96 Blood Pressure Position [Right Arm] Semi-fowlers Pulse Oximetry 90 91 100 Oxygen Delivery Method Oxymask Oxygen Flow Rate 10 10 10 Sepsis Recent Fever Within 48 Hours Sepsis New/Unexplained Change in Mental Status Sepsis Action Taken by Nursing 10/23/21 20:00 10/23/21 20:01 10/23/21 20:30 Temperature Temperature Source Pulse Rate 60 60 61 Pulse Rate [Apical] Pulse Rate from SpO2 Sensor 61 60 60 Pulse Rhythm [Apical] Respiratory Rate 23 23 21 Respiratory Effort / Characteristics Respiratory Depth Respiratory Pattern Blood Pressure 172/57 H 162/70 H Blood Pressure [Right Arm] Blood Pressure Mean 95 100 Blood Pressure Mean [Right Arm] Blood Pressure Position [Right Arm] Pulse Oximetry 100 100 100 Oxygen Delivery Method Oxygen Flow Rate 10 10 10 Sepsis Recent Fever Within 48 Hours Sepsis New/Unexplained Change in Mental Status Sepsis Action Taken by Nursing 10/23/21 21:00 10/23/21 21:30 10/23/21 21:48 Temperature Temperature Source Pulse Rate 60 60 Pulse Rate [Apical] 60 Pulse Rate from SpO2 Sensor 61 61 Pulse Rhythm [Apical] Respiratory Rate 19 20 21 Respiratory Effort / Characteristics Respiratory Depth Respiratory Pattern Blood Pressure 165/67 H 125/90 Blood Pressure [Right Arm] 125/90 Blood Pressure Mean 99 101 Blood Pressure Mean [Right Arm] 101 Blood Pressure Position [Right Arm] Pulse Oximetry 100 100 100 Oxygen Delivery Method Oxymask Oxygen Flow Rate 10 10 9 Sepsis Recent Fever Within 48 Hours Sepsis New/Unexplained Change in Mental Status Sepsis Action Taken by Nursing 10/23/21 22:00 10/23/21 22:01 Temperature Temperature Source Pulse Rate 60 63 Pulse Rate [Apical] Pulse Rate from SpO2 Sensor 60 60 Pulse Rhythm [Apical] Respiratory Rate 19 24 Respiratory Effort / Characteristics Respiratory Depth Respiratory Pattern Blood Pressure 169/72 H Blood Pressure [Right Arm] Blood Pressure Mean 104 Blood Pressure Mean [Right Arm] Blood Pressure Position [Right Arm] Pulse Oximetry 100 94 Oxygen Delivery Method Oxygen Flow Rate 10 6 Sepsis Recent Fever Within 48 Hours Sepsis New/Unexplained Change in Mental Status Sepsis Action Taken by Nursing Laboratory Data Attestation: I reviewed the patient's lab results. Result diagrams: 10/23/21 18:28 10/23/21 18:28 Lab Results 10/23/21 10/23/21 10/23/21 Range/Units 18:20 18:28 18:28 WBC 12.09 H (4.8-10.8) K/uL RBC 3.93 L (4.2-5.4) M/uL Hgb 14.2 (12.0-16.0) g/dL Hct 42.0 (37-47) % MCV 106.9 H (80-100) fL MCH 36.1 H (25-34) pg MCHC 33.8 (32-36) g/dL RDW Std Deviation 53.8 H (36.4-46.3) fL RDW Coeff of Etta 13.8 (11.5-14.5) % Plt Count 274 (130-400) K/uL MPV 10.9 H (7.4-10.4) fL Immature Gran % (Auto) 0.2 % Neut % (Auto) 57.7 % Lymph % (Auto) 31.6 % [place] % (Auto) 9.8 % Eos % (Auto) 0.5 % Baso % (Auto) 0.2 % Neut # (Auto) 6.96 H (1.4-6.5) K/uL Lymph # (Auto) 3.82 H (1.2-3.4) K/uL [place] # (Auto) 1.19 H (0.11-0.59) K/uL Eos # (Auto) 0.06 (0-0.5) K/uL Baso # (Auto) 0.03 (0-0.2) K/uL Immature Gran # (Auto) 0.03 H (0.00-0.02) K/uL PT (9.0-12.0) Seconds INR (0.9-1.1) APTT (21.0-31.0) Seconds PTT Ratio VBG pH (7.36-7.41) VBG pCO2 (38-50) mmHg VBG pO2 mmHg VBG HCO3 mmol/L VBG O2 Saturation % VBG Base Excess mEq/L Barometric Pressure mm/Hg Sodium 138 (136-145) mmol/L Potassium 3.6 (3.5-5.1) mmol/L Chloride 107 (98-107) mmol/L Carbon Dioxide 23 (21-32) mmol/L Anion Gap 8.0 (3-11) BUN 29 H (7-18) mg/dl Creatinine 2.05 H (0.6-1.2) mg/dl Est Cr Clr Drug Dosing 23.8 ml/min Est GFR ( Amer) 26.6 ml/min Est GFR (Non-Af Amer) 23.0 ml/min BUN/Creatinine Ratio 14.3 (10-20) Glucose 219 H (70-99) mg/dl Lactate (0.4-2.0) mmol/L Calcium 9.5 (8.5-10.1) mg/dl Phosphorus 3.9 (2.5-4.9) mg/dl Magnesium 1.9 (1.8-2.4) mg/dl Total Bilirubin 0.8 (0.2-1) mg/dl AST 21 (15-37) U/L ALT 29 (12-78) Alkaline Phosphatase 162 H (45-117) U/L Troponin I < 0.015 (0-0.045) ng/ml NT-Pro-B Natriuret Pep 1390 (0-1800) pg/ml Total Protein 8.1 (6.4-8.2) gm/dl Albumin 3.9 (3.4-5.0) gm/dl Globulin 4.2 H (2.5-4.0) gm/dl Albumin/Globulin Ratio 0.9 (0.9-2) Lipase 519 H (73-393) U/L Procalcitonin (0-0.5) ng/ml Urine Color Urine Appearance (Clear) Urine pH (4.5-7.5) Ur Specific Henley (1.000-1.030) Urine Protein (Negative) Urine Glucose (UA) (Negative) Urine Ketones (Negative) Urine Blood (Negative) Urine Nitrite (Negative) Urine Bilirubin (Negative) Urine Urobilinogen (Negative) Ur Leukocyte Esterase (Negative) Urine WBC (Auto) (0-5) /hpf Urine RBC (Auto) (0-4) /hpf U Hyaline Cast (Auto) (0-5) /lpf U Epithel Cells (Auto) (0-5) /lpf Urine Bacteria (Auto) (Negative) SARS-CoV-2 (PCR) NEGATIVE (Negative) Influenza Type A (PCR) Negative (Neg) Influenza Type B (PCR) Negative (Neg) RSV (RT-PCR) Negative (Neg) 10/23/21 10/23/21 10/23/21 Range/Units 18:28 18:28 18:28 WBC (4.8-10.8) K/uL RBC (4.2-5.4) M/uL Hgb (12.0-16.0) g/dL Hct (37-47) % MCV (80-100) fL MCH (25-34) pg MCHC (32-36) g/dL RDW Std Deviation (36.4-46.3) fL RDW Coeff of Etta (11.5-14.5) % Plt Count (130-400) K/uL MPV (7.4-10.4) fL Immature Gran % (Auto) % Neut % (Auto) % Lymph % (Auto) % [place] % (Auto) % Eos % (Auto) % Baso % (Auto) % Neut # (Auto) (1.4-6.5) K/uL Lymph # (Auto) (1.2-3.4) K/uL [place] # (Auto) (0.11-0.59) K/uL Eos # (Auto) (0-0.5) K/uL Baso # (Auto) (0-0.2) K/uL Immature Gran # (Auto) (0.00-0.02) K/uL PT 10.5 (9.0-12.0) Seconds INR 1.0 (0.9-1.1) APTT 24.3 (21.0-31.0) Seconds PTT Ratio 0.9 VBG pH 7.35 L (7.36-7.41) VBG pCO2 36 L (38-50) mmHg VBG pO2 53 mmHg VBG HCO3 19 mmol/L VBG O2 Saturation 84.4 % VBG Base Excess -5.6 mEq/L Barometric Pressure 723.8 mm/Hg Sodium (136-145) mmol/L Potassium (3.5-5.1) mmol/L Chloride (98-107) mmol/L Carbon Dioxide (21-32) mmol/L Anion Gap (3-11) BUN (7-18) mg/dl Creatinine (0.6-1.2) mg/dl Est Cr Clr Drug Dosing ml/min Est GFR ( Amer) ml/min Est GFR (Non-Af Amer) ml/min BUN/Creatinine Ratio (10-20) Glucose (70-99) mg/dl Lactate (0.4-2.0) mmol/L Calcium (8.5-10.1) mg/dl Phosphorus (2.5-4.9) mg/dl Magnesium (1.8-2.4) mg/dl Total Bilirubin (0.2-1) mg/dl AST (15-37) U/L ALT (12-78) Alkaline Phosphatase (45-117) U/L Troponin I (0-0.045) ng/ml NT-Pro-B Natriuret Pep (0-1800) pg/ml Total Protein (6.4-8.2) gm/dl Albumin (3.4-5.0) gm/dl Globulin (2.5-4.0) gm/dl Albumin/Globulin Ratio (0.9-2) Lipase (73-393) U/L Procalcitonin < 0.05 (0-0.5) ng/ml Urine Color Urine Appearance (Clear) Urine pH (4.5-7.5) Ur Specific Henley (1.000-1.030) Urine Protein (Negative) Urine Glucose (UA) (Negative) Urine Ketones (Negative) Urine Blood (Negative) Urine Nitrite (Negative) Urine Bilirubin (Negative) Urine Urobilinogen (Negative) Ur Leukocyte Esterase (Negative) Urine WBC (Auto) (0-5) /hpf Urine RBC (Auto) (0-4) /hpf U Hyaline Cast (Auto) (0-5) /lpf U Epithel Cells (Auto) (0-5) /lpf Urine Bacteria (Auto) (Negative) SARS-CoV-2 (PCR) (Negative) Influenza Type A (PCR) (Neg) Influenza Type B (PCR) (Neg) RSV (RT-PCR) (Neg) 10/23/21 10/23/21 10/23/21 Range/Units 18:28 19:23 21:42 WBC (4.8-10.8) K/uL RBC (4.2-5.4) M/uL Hgb (12.0-16.0) g/dL Hct (37-47) % MCV (80-100) fL MCH (25-34) pg MCHC (32-36) g/dL RDW Std Deviation (36.4-46.3) fL RDW Coeff of Etta (11.5-14.5) % Plt Count (130-400) K/uL MPV (7.4-10.4) fL Immature Gran % (Auto) % Neut % (Auto) % Lymph % (Auto) % [place] % (Auto) % Eos % (Auto) % Baso % (Auto) % Neut # (Auto) (1.4-6.5) K/uL Lymph # (Auto) (1.2-3.4) K/uL [place] # (Auto) (0.11-0.59) K/uL Eos # (Auto) (0-0.5) K/uL Baso # (Auto) (0-0.2) K/uL Immature Gran # (Auto) (0.00-0.02) K/uL PT (9.0-12.0) Seconds INR (0.9-1.1) APTT (21.0-31.0) Seconds PTT Ratio VBG pH (7.36-7.41) VBG pCO2 (38-50) mmHg VBG pO2 mmHg VBG HCO3 mmol/L VBG O2 Saturation % VBG Base Excess mEq/L Barometric Pressure mm/Hg Sodium (136-145) mmol/L Potassium (3.5-5.1) mmol/L Chloride (98-107) mmol/L Carbon Dioxide (21-32) mmol/L Anion Gap (3-11) BUN (7-18) mg/dl Creatinine (0.6-1.2) mg/dl Est Cr Clr Drug Dosing ml/min Est GFR ( Amer) ml/min Est GFR (Non-Af Amer) ml/min BUN/Creatinine Ratio (10-20) Glucose (70-99) mg/dl Lactate 2.2 H* 3.0 H* (0.4-2.0) mmol/L Calcium (8.5-10.1) mg/dl Phosphorus (2.5-4.9) mg/dl Magnesium (1.8-2.4) mg/dl Total Bilirubin (0.2-1) mg/dl AST (15-37) U/L ALT (12-78) Alkaline Phosphatase (45-117) U/L Troponin I (0-0.045) ng/ml NT-Pro-B Natriuret Pep (0-1800) pg/ml Total Protein (6.4-8.2) gm/dl Albumin (3.4-5.0) gm/dl Globulin (2.5-4.0) gm/dl Albumin/Globulin Ratio (0.9-2) Lipase (73-393) U/L Procalcitonin (0-0.5) ng/ml Urine Color Yellow Urine Appearance Clear (Clear) Urine pH 6.5 (4.5-7.5) Ur Specific Henley 1.017 (1.000-1.030) Urine Protein 1+ H (Negative) Urine Glucose (UA) Negative (Negative) Urine Ketones Negative (Negative) Urine Blood Negative (Negative) Urine Nitrite Negative (Negative) Urine Bilirubin Negative (Negative) Urine Urobilinogen Negative (Negative) Ur Leukocyte Esterase Negative (Negative) Urine WBC (Auto) 1-5 (0-5) /hpf Urine RBC (Auto) 0-4 (0-4) /hpf U Hyaline Cast (Auto) 1-5 (0-5) /lpf U Epithel Cells (Auto) 10-20 H (0-5) /lpf Urine Bacteria (Auto) Negative (Negative) SARS-CoV-2 (PCR) (Negative) Influenza Type A (PCR) (Neg) Influenza Type B (PCR) (Neg) RSV (RT-PCR) (Neg) Administered Medications Magnesium Sulfate/Dextrose (Magnesium Sulfate / D5w) 1 gm in 100 mls @ 50 mls/hr IV ONE ONE Stop: 10/23/21 23:47 Last Admin: 10/23/21 22:58 Dose: 50 mls/hr Documented by: [id number] Sodium Chloride (Nss 1000ml) 1,000 mls @ 60 mls/hr IV .[id number] ONE Stop: 10/24/21 14:29 Last Admin: 10/23/21 22:30 Dose: 60 mls/hr Documented by: [id number] Discontinued Medications Albuterol (Albut/Ipratrop 3mg/0.5mg Neb 3 Ml Vial) 3 ml NEB NOW STA; Protocol Stop: 10/23/21 18:17 Last Admin: 10/23/21 18:54 Dose: 3 ml Documented by: [id number] Sodium Chloride (Nss) 500 mls @ 999 mls/hr IV .Q31M ONE Stop: 10/23/21 18:45 Last Infusion: 10/23/21 20:17 Dose: 0 mls/hr Documented by: [id number] Admin: 10/23/21 18:53 Dose: 999 mls/hr Documented by: [id number] Famotidine (Pepcid 20mg Iv Push) 20 mg in 5 mls @ 2.5 mls/min IV NOW STA Stop: 10/23/21 18:16 Last Admin: 10/23/21 18:54 Dose: 2.5 mls/min Documented by: [id number] Piperacillin Sod/Tazobactam Sod (Zosyn) 4.5 gm in 120 mls @ 240 mls/hr IV NOW ONE Stop: 10/23/21 21:05 Last Infusion: 10/23/21 22:30 Dose: 0 mls/hr Documented by: [id number] Admin: 10/23/21 21:08 Dose: 240 mls/hr Documented by: [id number] Sodium Chloride (Nss 1000ml) 1,000 mls @ 125 mls/hr IV .Q8H ALYSSA Stop: 11/22/21 20:44 Last Infusion: 10/23/21 22:30 Dose: 0 mls/hr Documented by: [id number] Admin: 10/23/21 21:45 Dose: 125 mls/hr Documented by: [id number] Methylprednisolone (Methylprednisolone 40 Mg/Ml Vial) 20 mg IV NOW STA Stop: 10/23/21 21:49 Last Admin: 10/23/21 23:00 Dose: 20 mg Documented by: [id number] Ondansetron HCl (Ondansetron Inj 2 Mg/Ml 2 Ml Vial) 4 mg IV NOW STA Stop: 10/23/21 18:16 Last Admin: 10/23/21 18:54 Dose: 4 mg Documented by: [id number] Imaging Data Radiologist's Impression: Chest X-Ray 10/23/21 18:13 XR chest 1V portable HISTORY: 76 years-old Female SEPSIS acute sepsis COMPARISON: Chest radiograph 08/03/2021 TECHNIQUE: Portable AP view of the chest FINDINGS: The cardiomediastinal and hilar silhouettes are within normal limits. Left subclavian pacer. No pneumothorax, pleural effusion, airspace consolidation or overt pulmonary edema. Subtle opacities of the medial right lung base are suggestive of probable atelectasis. Mild chronic interstitial coarsening. Degenerative changes of the shoulders and spine. IMPRESSION: No acute process. ACT 112: Negative or not required by law. The above report was generated using voice recognition software. It may contain grammatical, syntax or spelling errors. Electronically signed by: Catalino Alcocer M.D. 10/23/2021 6:53 PM Abdomen/Pelvis CT 10/23/21 19:[address] WITHOUT CONTRAST CT DOSE: 1217.38 mGy.cm HISTORY: Acute nausea and vomiting with generalized abdominal pain n/v TECHNIQUE: Multiaxial CT images of the abdomen and pelvis were performed without contrast. A dose lowering technique was utilized adhering to the principles of ALARA. COMPARISON STUDY: CT abdomen and pelvis 08/12/2020 FINDINGS: Partially imaged pacer leads. The imaged inferior cardiac chambers are unremarkable. Patchy bibasilar groundglass and consolidative opacities. There is no pneumatosis or pneumoperitoneum. The unenhanced spleen, pancreas, adrenal glands and liver appear unremarkable. Cholecystectomy. Mild nonspecific bilateral perinephric stranding. Cysts of the kidneys measure up to 3.2 cm on the right and 3 cm on the left. No ureteral calculi or hydronephrosis. Mild urinary bladder distention. The unenhanced uterus and adnexa appear unremarkable. Atherosclerosis of the aorta. There is no adenopathy. There is mild nonspecific distal esophageal wall thickening it is similar to prior. No bowel obstruction or bowel wall thickening. Colonic diverticulosis. Mild to moderate fecal retention of the rectosigmoid. Normal appendix. No ascites or mesenteric inflammation. Marker soft tissues. No acute fracture. Unchanged sclerotic lesion of the right iliac bone is likely benign. IMPRESSION: 1. Partially imaged patchy bibasilar groundglass and consolidative opacities are compatible with a nonspecific infectious or inflammatory pneumonitis. 2. No bowel obstruction or bowel wall thickening. 3. Colonic diverticulosis. 4. Additional findings as above. ACT 112: Negative or not required by law. The above report was generated using voice recognition software. It may contain grammatical, syntax or spelling errors. Electronically signed by: Catalino Alcocer M.D. 10/23/2021 8:30 PM Discharge Plan Visit Data Chief Complaint: Nausea ED Provider: Nico Hamilton Discharge Problem: Pneumonia, Hypoxia, Intractable nausea and vomiting Forms Stand Alone Forms: My [facility] Prescriptions Prescriptions: No Action clopidogrel 75 mg Tablet 75 mg PO QAM Qty: 30 RF: 0 atorvastatin 40 mg Tablet 40 mg PO QPM Qty: 30 RF: 0 famotidine 20 mg tablet 20 mg PO BID RF: 0 escitalopram oxalate 10 mg tablet 10 mg PO PM RF: 0 Eliquis 2.5 mg Tablet 2.5 mg PO BID Qty: 60 RF: 1 metoprolol succinate 25 mg Tablet Extended Release 24 Hr 25 mg PO QAM Qty: 30 RF: 1 allopurinol 100 mg tablet 100 mg PO QAM RF: 0 acetaminophen [Tylenol] 325 mg Capsule 325 mg PO Q6H PRN (Reason: pain/fever) RF: 0 amiodarone 200 mg tablet 200 mg PO QAM RF: 0 albuterol sulfate 90 mcg/actuation Hfa Aerosol Inhaler 2 puff INHALATION QID PRN (Reason: Shortness Of Breath Or Wheezing) RF: 0 ondansetron 4 mg tablet,disintegrating 4 mg PO Q8 PRN (Reason: nausea and vomiting) RF: 0 levothyroxine 100 mcg tablet 100 mcg PO DAILYBB RF: 0 Referrals Referrals: Kasandra Antunez DO [Primary Care Provider] - Discharge Problem: Pneumonia Qualifiers: Pneumonia type: aspiration pneumonia Aspiration pneumonia type: unspecified Laterality: bilateral Lung location: lower lobe of lung Qualified Code(s): J69.0 - Pneumonitis due to inhalation of food and vomit
[2021-10-23] MEDS ORDERED: FAMOTIDINE 20MG IV PUSH 20 MG/5 ML SYR IV STA (18:15)
[2021-10-23] MEDS ORDERED: ONDANSETRON INJ 2 MG/ML 2 ML VIAL IV STA (18:15)
[2021-10-23] MEDS ORDERED: SODIUM CHLORIDE 0.9% 500 ML IV ONE (18:15)
[2021-10-23] MEDS ORDERED: ALBUT/IPRATROP 3MG/0.5MG NEB 3 ML VIAL NEB STA (18:16)
[2021-10-23 18:44] LABS: Basophils # (auto) 0.03 K/uL (0-0.2); Basophils % (auto) 0.2 %; Eosinophils # (auto) 0.06 K/uL (0-0.5); Eosinophils % (auto) 0.5 %; Hemoglobin 14.2 g/dL (12.0-16.0); Immature Granulocytes # (auto) 0.03 K/uL (0.00-0.02); Immature Granulocytes % (auto) 0.2 %; Lymphocytes # (auto) 3.82 K/uL (1.2-3.4); Lymphocytes % (auto) 31.6 %; Mean Corpuscular Hemoglobin 36.1 pg (25-34); Mean Corpuscular Hgb Conc 33.8 g/dL (32-36); Mean Corpuscular Volume 106.9 fL (80-100); Mean Platelet Volume 10.9 fL (7.4-10.4); Monocytes # (auto) 1.19 K/uL (0.11-0.59); Monocytes % (auto) 9.8 %; Neutrophils # (auto) 6.96 K/uL (1.4-6.5); Neutrophils % (auto) 57.7 %; Platelet Count 274 K/uL (130-400); RDW Coefficient of Variation 13.8 % (11.5-14.5); RDW Standard Deviation 53.8 fL (36.4-46.3); Red Blood Count 3.93 M/uL (4.2-5.4); White Blood Count 12.09 K/uL (4.8-10.8)
[2021-10-23 18:48] LABS: Base Excess VBG -5.6 mEq/L; Oxygen Saturation VBG 84.4 %; pH VBG 7.35 (7.36-7.41)
--- NOTE | 2021-10-23 18:54 | XRay Report ---
XR chest 1V portable HISTORY: 76 years-old Female SEPSIS acute sepsis COMPARISON: Chest radiograph 08/03/2021 TECHNIQUE: Portable AP view of the chest FINDINGS: The cardiomediastinal and hilar silhouettes are within normal limits. Left subclavian pacer. No pneum othorax, pleural effusion, airspace consolidation or overt pulmonary edema. Subtle opacities of the m edial right lung base are suggestive of probable atelectasis. Mild chronic interstitial coarsening. D egenerative changes of the shoulders and spine. IMPRESSION: No acute process. ACT 112: Negative or not required by law. The above report was generated using voice recognition software. It may contain grammatical, syntax o r spelling errors. Electronically signed by: Catalino Alcocer M.D. 10/23/2021 6:53 PM
[2021-10-23 18:59] LABS: Partial Thromboplastin Ratio 0.9; Partial Thromboplastin Time 24.3 Seconds (21.0-31.0); Prothrombin Time 10.5 Seconds (9.0-12.0)
[2021-10-23 19:04] LABS: Alanine Aminotransferase 29 (12-78); Albumin Level 3.9 gm/dl (3.4-5.0); Aspartate Aminotransferase 21 U/L (15-37); BUN Creatinine Ratio 14.3 (10-20); Blood Urea Nitrogen 29 mg/dl (7-18); Calcium 9.5 mg/dl (8.5-10.1); Carbon Dioxide 23 mmol/L (21-32); Chloride 107 mmol/L (98-107); Creatinine Clr Calc Pharmacy 23.8 ml/min; Est GFR (African American) 26.6 ml/min; Glucose 219 mg/dl (70-99); Lipase 519 U/L (73-393); Magnesium 1.9 mg/dl (1.8-2.4); Potassium 3.6 mmol/L (3.5-5.1); Sodium 138 mmol/L (136-145)
[2021-10-23 19:09] LABS: Albumin Globulin Ratio 0.9 (0.9-2); Alkaline Phosphatase 162 U/L (45-117); Bilirubin,Total 0.8 mg/dl (0.2-1); Globulin 4.2 gm/dl (2.5-4.0); NT Pro B Type Natriuretic Pept 1390 pg/ml (0-1800); Phosphorus 3.9 mg/dl (2.5-4.9); Total Protein 8.1 gm/dl (6.4-8.2); Troponin I < 0.015 ng/ml (0-0.045)
[2021-10-23 19:13] LABS: Influenza A virus by PCR Negative (Neg); Influenza B virus by PCR Negative (Neg); RSV by PCR Negative (Neg); SARS CoV2 RNA(COVID-19) InHosp NEGATIVE (Negative)
[2021-10-23 19:38] LABS: Appearance Urine Clear (Clear); Bacteria Urine Automated Negative (Negative); Bilirubin Urine Negative (Negative); Blood Urine Negative (Negative); Color Urine Yellow; Glucose Urine UA Negative (Negative); Ketones Urine Negative (Negative); Leukocyte Esterase Urine Negative (Negative); Nitrite Urine Negative (Negative); Protein Urine 1+ (Negative); RBC Urine Automated 0-4 /hpf (0-4); Specific Gravity Urine 1.017 (1.000-1.030); Urobilinogen Urine Negative (Negative); pH Urine 6.5 (4.5-7.5)
--- NOTE | 2021-10-23 20:31 | CT Scan Report ---
ABDOMEN AND PELVIS CT WITHOUT CONTRAST CT DOSE: 1217.38 mGy.cm HISTORY: Acute nausea and vomiting with generalized abdominal pain n/v TECHNIQUE: Multiaxial CT images of the abdomen and pelvis were performed without contrast. A dose lo wering technique was utilized adhering to the principles of ALARA. COMPARISON STUDY: CT abdomen and pelvis 08/12/2020 FINDINGS: Partially imaged pacer leads. The imaged inferior cardiac chambers are unremarkable. Patchy bibasilar groundglass and consolidative opacities. There is no pneumatosis or pneumoperitoneum. The unenhanced spleen, pancreas, adrenal glands and liver appear unremarkable. Cholecystectomy. Mild nonspecific bi lateral perinephric stranding. Cysts of the kidneys measure up to 3.2 cm on the right and 3 cm on the left. No ureteral calculi or hydronephrosis. Mild urinary bladder distention. The unenhanced uterus and adnexa appear unremarkable. Atherosclerosis of the aorta. There is no adenopathy. There is mild nonspecific distal esophageal wall thickening it is similar to prior. No bowel obstruct ion or bowel wall thickening. Colonic diverticulosis. Mild to moderate fecal retention of the rectosi gmoid. Normal appendix. No ascites or mesenteric inflammation. Marker soft tissues. No acute fracture . Unchanged sclerotic lesion of the right iliac bone is likely benign. IMPRESSION: 1. Partially imaged patchy bibasilar groundglass and consolidative opacities are compatible with a no nspecific infectious or inflammatory pneumonitis. 2. No bowel obstruction or bowel wall thickening. 3. Colonic diverticulosis. 4. Additional findings as above. ACT 112: Negative or not required by law. The above report was generated using voice recognition software. It may contain grammatical, syntax o r spelling errors. Electronically signed by: Catalino Alcocer M.D. 10/23/2021 8:30 PM
[2021-10-23] MEDS ORDERED: PIPERACILL/TAZOBAC CONSULT ACTIVE PRN (20:36)
[2021-10-23] MEDS ORDERED: PIPERACILLIN/TAZOBACTAM 4.5 GM/120 ML BAG IV ONE (20:36)
[2021-10-23] MEDS ORDERED: SODIUM CHLORIDE 0.9% 1000ML 1,000 ML IV SCH (20:45)
[2021-10-23] MEDS ORDERED: MAGNESIUM SULFATE / D5W 1 GM/100 ML BAG IV ONE (21:48)
[2021-10-23] MEDS ORDERED: SODIUM CHLORIDE 0.9% 1000ML 1,000 ML IV ONE (21:50)
--- NOTE | 2021-10-23 23:03 | History & Physical Report ---
Date of Service October 23, 2021 Assessment & Plan (1) Acute hypoxemic respiratory failure: Plan: Secondary to possible aspiration pneumonia Severe sepsis SIRS plus lactic acid elevation secondary to above chronic systolic heart failure secondary to nonischemic cardiomyopathy (EF 40%, TTE 2019), patient euvolemic to dry SSS status post PPM on Eliquis, paced rhythm hypertension, slightly elevated hyperlipidemia on statin Rx history CVA as per records DM2 diet-controlled, recent hemoglobin A1c of 6.28 September 2021 CRI, creatinine at baseline hypothyroidism, euthyroid as of recent outpatient TSH Medical telemetry Supplemental O2 Solu-Medrol one dose given hypoxemia and bronchospasm on exam from aspiration pneumonia Unasyn follow lactic acid with gentle IV hydration Add Doxycycline to antibiotic regimen if with persistent elevation Amlodipine for elevated BP Basal insulin, ISS BG goal one 10-1 forty, carb count coverage DVT prophylaxis. Eliquis DNR as per patient's prior directives. Patient son requesting updates from providers. Mr. Reginald Gabriel, contact #[phone]. Total critical care time was 40 minutes. Text document was generated using Weavly voice recognition software. It may contain grammatical or spelling errors. Kindly contact undersigned for clarification of any documentation item in question. History of Present Illness Chief Complaint: Nausea, emesis Primary Care Provider: Kasandra Antunez, DO History obtained from patient and records. Medical history significant for chronic systolic heart failure secondary to nonischemic cardiomyopathy (EF 40%, TTE 2019), SSS status post PPM on Eliquis, PSVT, hypertension, hyperlipidemia, history CVA, DM2 diet-controlled, CRI (baseline creatinine 2), hypothyroidism, dementia as per records. Last confinement July 2020 for A. fib with RVR, tachybradycardia syndrome status post PPM. Patient experienced nausea followed by emesis today without abdominal pain complaints. Patient later noted mild cough productive of yellow sputum with wheeze. No chest pain. Some shortness of breath. Denies aspiration as per patient. No known recent COVID-19 contacts. Patient noted to be hypoxemic at the ER O2 sats 80s. Neb treatment and Zosyn administered at the ER. 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 Allergies Allergy/AdvReac Type Severity Reaction Status Date / Time codeine Allergy Intermediate "UNSURE IF Verified 10/23/21 21:54 STILL ALLERGIC" Home Medications Medication Instructions Recorded Confirmed Type acetaminophen 325 mg capsule 325 mg PO Q6H PRN 06/11/19 10/23/21 History (Tylenol) allopurinol 100 mg tablet 100 mg PO QAM 06/11/19 10/23/21 History atorvastatin 40 mg tablet 40 mg PO QPM #30 tab 02/24/20 10/23/21 Rx clopidogrel 75 mg tablet 75 mg PO QAM #30 tab 02/24/20 10/23/21 Rx famotidine 20 mg tablet 20 mg PO BID 06/29/20 10/23/21 History escitalopram oxalate 10 mg tablet 10 mg PO PM 08/12/20 10/23/21 History apixaban 2.5 mg tablet (Eliquis) 2.5 mg PO BID #60 tab 08/17/20 10/23/21 Rx metoprolol succinate 25 mg 25 mg PO QAM #30 tab 08/17/20 10/23/21 Rx tablet,extended release 24 hr amiodarone 200 mg tablet 200 mg PO QAM 08/03/21 10/23/21 History albuterol sulfate 90 mcg/actuation 2 puff INHALATION QID PRN 10/23/21 10/23/21 History aerosol inhaler levothyroxine 100 mcg tablet 100 mcg PO DAILYBB 10/23/21 10/23/21 History ondansetron 4 mg disintegrating 4 mg PO Q8 PRN 10/23/21 10/23/21 History tablet Past Med/Surg History Medical History (Updated 10/24/21 @ 04:55 by Jesus Mckenna MD) Atrial fibrillation CKD (chronic kidney disease) stage 3, GFR 30-59 ml/min Degenerative disc disease, cervical Dyslipidemia [place] (generalized anxiety disorder) GERD without esophagitis Hearing loss History of adenomatous polyp of colon History of right MCA stroke HTN (hypertension) Hypertensive cardiomegaly Type 2 diabetes mellitus Vitamin D deficiency Surgical History History of arthroplasty of left knee History of carpal tunnel surgery History of cholecystectomy History of D&C History of excision of lesion Back - Dr. Tucker Family History Other Diabetes Heart disease Social History Smoking Status: Former smoker Second Hand Exposure: No; Hx Alcohol Use: No Hx Substance Use: No Preferred Language: Bahamian Communication Ability: Impaired Hearing Ability: Hard of Hearing Russian History Professor Required: No Beliefs That Will Affect Care: None marital status: Current Living Situation: Family Other Information That Helps Us Care for You: No Feels Safe at Home: Yes Safety Concerns: Feels Safe At This Time Assistive Devices: Glasses and Hearing Aid - Bilateral Review of Systems Review of Systems: As per HPI, all 10 systems reviewed, all other ROS negative Physical Exam Physical Exam: GENERAL: Comfortable, pleasant, hard of hearing, obese, no respiratory distress SKIN: Normal color, warm HEENT: [place] palpebral conjunctivae, no ptosis, dry buccal mucosa, nasal cannula in place NECK : Supple, no tenderness CHEST : Decreased breath sounds, occasional scattered wheezes, no tenderness HEART : RRR, no obvious murmurs ABDOMEN: Some distention, nontender EXTREMITIES : Minimal LE swelling, no LE tenderness, no other conspicuous deformities noted NEUROLOGIC : Coherent, no facial asymmetry, hard of hearing, gait and stance not assessed Results & Data Results & Data ([facility]) Vital Signs (Past 12 Hours) Vital Signs Temp Pulse Pulse Resp BP BP Pulse Ox 10/23/21 22:01 63 24 169/72 H 94 10/23/21 22:00 60 19 100 10/23/21 21:48 60 21 125/90 100 10/23/21 21:30 60 20 125/90 100 10/23/21 21:00 60 19 165/67 H 100 10/23/21 20:30 61 21 162/70 H 100 10/23/21 20:01 60 23 172/57 H 100 10/23/21 20:00 60 23 100 10/23/21 19:30 61 21 173/67 H 100 10/23/21 19:00 67 27 H 167/80 H 91 10/23/21 18:30 62 60 26 H 143/73 H 143/73 H 90 10/23/21 18:15 60 23 86 L 10/23/21 17:46 36.2 C L 74 20 154/69 H 92 Laboratory Results Laboratory Results WBC 12.09 K/uL (4.8-10.8) H 10/23/21 18: RBC 3.93 M/uL (4.2-5.4) L 10/23/21 18: Hgb 14.2 g/dL (12.0-16.0) 10/23/21 18: Hct 42.0 % (37-47) 10/23/21 18: MCV 106.9 fL (80-100) H 10/23/21 18: MCH 36.1 pg (25-34) H 10/23/21 18: MCHC 33.8 g/dL (32-36) 10/23/21 18: RDW Std Deviation 53.8 fL (36.4-46.3) H 10/23/21: RDW Coeff of [place] 13.8 % (11.5-14.5) 10/23/21: Plt Count 274 K/uL (130-400) 10/23/21: MPV 10.9 fL (7.4-10.4) H 10/23/21 18: Immature Gran % (Auto) 0.2 % 10/23/21 18: Neut % (Auto) 57.7 % 10/23/21 18: Lymph % (Auto) 31.6 % 10/23/21 18: [place] % (Auto) 9.8 % 10/23/21 18: Eos % (Auto) 0.5 % 10/23/21 18: Baso % (Auto) 0.2 % 10/23/21 18: Neut # (Auto) 6.96 K/uL (1.4-6.5) H 10/23/21 18:28 Lymph # (Auto) 3.82 K/uL (1.2-3.4) H 10/23/21 18: [place] # (Auto) 1.19 K/uL (0.11-0.59) H 10/23/21 18: Eos # (Auto) 0.06 K/uL (0-0.5) 10/23/21 18: Baso # (Auto) 0.03 K/uL (0-0.2) 10/23/21 18: Immature Gran # (Auto) 0.03 K/uL (0.00-0.02) H 10/23/21 18: PT 10.5 Seconds (9.0-12.0) 10/23/21 18: INR 1.0 (0.9-1.1) 10/23/21 18: APTT 24.3 Seconds (21.0-31.0) 10/23/21 18: PTT Ratio 0.9 10/23/21 18: VBG pH 7.35 (7.36-7.41) L 10/23/21 18: VBG pCO2 36 mmHg (38-50) L 10/23/21 18: VBG pO2 53 mmHg 10/23/21: VBG HCO3 19 mmol/L 10/23/21: VBG O2 Saturation 84.4 % 10/23/21 18: VBG Base Excess -5.6 mEq/L 10/23/21 18: Barometric Pressure 723.8 mm/Hg 10/23/21 18: Sodium 138 mmol/L (136-145) 10/23/21 18: Potassium 3.6 mmol/L (3.5-5.1) 10/23/21 18: Chloride 107 mmol/L (98-107) 10/23/21 18: Carbon Dioxide 23 mmol/L (21-32) 10/23/21 18: Anion Gap 8.0 (3-11) 10/23/21 18: BUN 29 mg/dl (7-18) H 10/23/21 18: Creatinine 2.05 mg/dl (0.6-1.2) H 10/23/21 18: Est Cr Clr Drug Dosing 23.8 ml/min 10/23/21 18:28 Est GFR ( Amer) 26.6 ml/min 10/23/21 18: Est GFR (Non-Af Amer) 23.0 ml/min 10/23/21 18: BUN/Creatinine Ratio 14.3 (10-20) 10/23/21 18: Glucose 219 mg/dl (70-99) H 10/23/21 18: Lactate 3.0 mmol/L (0.4-2.0) H* 10/23/21 21:42 Calcium 9.5 mg/dl (8.5-10.1) 10/23/21 18:28 Phosphorus 3.9 mg/dl (2.5-4.9) 10/23/21 18:28 Magnesium 1.9 mg/dl (1.8-2.4) 10/23/21 18:28 Total Bilirubin 0.8 mg/dl (0.2-1) 10/23/21 18:28 AST 21 U/L (15-37) 10/23/21 18:28 ALT 29 (12-78) 10/23/21 18:28 Alkaline Phosphatase 162 U/L (45-117) H 10/23/21 18:28 Troponin I < 0.015 ng/ml (0-0.045) 10/23/21 18: NT-Pro-B Natriuret Pep 1390 pg/ml (0-1800) 10/23/21 18:28 Total Protein 8.1 gm/dl (6.4-8.2) 10/23/21 18: Albumin 3.9 gm/dl (3.4-5.0) 10/23/21 18:28 Globulin 4.2 gm/dl (2.5-4.0) H 10/23/21 18:28 Albumin/Globulin Ratio 0.9 (0.9-2) 10/23/21 18:28 Lipase 519 U/L (73-393) H 10/23/21 18:28 Procalcitonin < 0.05 ng/ml (0-0.5) 10/23/21 18:28 Urine Color Yellow 10/23/21 19: Urine Appearance Clear (Clear) 10/23/21 19: Urine pH 6.5 (4.5-7.5) 10/23/21 19:23 Ur Specific [place] 1.017 (1.000-1.030) 10/23/21 19: Urine Protein 1+ (Negative) H 10/23/21 19: Urine Glucose (UA) Negative (Negative) 10/23/21 19: Urine Ketones Negative (Negative) 10/23/21 19: Urine Blood Negative (Negative) 10/23/21 19: Urine Nitrite Negative (Negative) 10/23/21 19: Urine Bilirubin Negative (Negative) 10/23/21 19: Urine Urobilinogen Negative (Negative) 10/23/21 19:23 Ur Leukocyte Esterase Negative (Negative) 10/23/21 19:23 Urine WBC (Auto) 1-5 /hpf (0-5) 10/23/21 19:23 Urine RBC (Auto) 0-4 /hpf (0-4) 10/23/21 19:23 U Hyaline Cast (Auto) 1-5 /lpf (0-5) 10/23/21 19:23 U Epithel Cells (Auto) 10-20 /lpf (0-5) H 10/23/21 19:23 Urine Bacteria (Auto) Negative (Negative) 10/23/21 19:23 SARS-CoV-2 (PCR) NEGATIVE (Negative) 10/23/21 18:20 Influenza Type A (PCR) Negative (Neg) 10/23/21 18:20 Influenza Type B (PCR) Negative (Neg) 10/23/21 18:20 RSV (RT-PCR) Negative (Neg) 10/23/21 18:20 Impressions Chest X-Ray 10/23/21 18:13 XR chest 1V portable HISTORY: 76 years-old Female SEPSIS acute sepsis COMPARISON: Chest radiograph 08/03/2021 TECHNIQUE: Portable AP view of the chest FINDINGS: The cardiomediastinal and hilar silhouettes are within normal limits. Left subclavian pacer. No pneumothorax, pleural effusion, airspace consolidation or overt pulmonary edema. Subtle opacities of the medial right lung base are suggestive of probable atelectasis. Mild chronic interstitial coarsening. Degenerative changes of the shoulders and spine. IMPRESSION: No acute process. ACT 112: Negative or not required by law. The above report was generated using voice recognition software. It may contain grammatical, syntax or spelling errors. Electronically signed by: Catalino Alcocer M.D. 10/23/2021 6:53 PM Abdomen/Pelvis CT 10/23/21 19:[address] WITHOUT CONTRAST CT DOSE: 1217.38 mGy.cm HISTORY: Acute nausea and vomiting with generalized abdominal pain n/v TECHNIQUE: Multiaxial CT images of the abdomen and pelvis were performed without contrast. A dose lowering technique was utilized adhering to the principles of ALARA. COMPARISON STUDY: CT abdomen and pelvis 08/12/2020 FINDINGS: Partially imaged pacer leads. The imaged inferior cardiac chambers are unremarkable. Patchy bibasilar groundglass and consolidative opacities. There is no pneumatosis or pneumoperitoneum. The unenhanced spleen, pancreas, adrenal glands and liver appear unremarkable. Cholecystectomy. Mild nonspecific bilateral perinephric stranding. Cysts of the kidneys measure up to 3.2 cm on the right and 3 cm on the left. No ureteral calculi or hydronephrosis. Mild urinary bladder distention. The unenhanced uterus and adnexa appear unremarkable. Atherosclerosis of the aorta. There is no adenopathy. There is mild nonspecific distal esophageal wall thickening it is similar to prior. No bowel obstruction or bowel wall thickening. Colonic diverticulosis. Mild to moderate fecal retention of the rectosigmoid. Normal appendix. No ascites or mesenteric inflammation. Marker soft tissues. No acute fracture. Unchanged sclerotic lesion of the right iliac bone is likely benign. IMPRESSION: 1. Partially imaged patchy bibasilar groundglass and consolidative opacities are compatible with a nonspecific infectious or inflammatory pneumonitis. 2. No bowel obstruction or bowel wall thickening. 3. Colonic diverticulosis. 4. Additional findings as above. ACT 112: Negative or not required by law. The above report was generated using voice recognition software. It may contain grammatical, syntax or spelling errors. Electronically signed by: Catalino Alcocer M.D. 10/23/2021 8:30 PM Diagnostic Findings EKG as per my interpretation rate 65, paced rhythm
[2021-10-23] MEDS ORDERED: INSULIN GLARGINE SOLOSTAR 100 UNITS/ML 3 ML PEN SC STA (23:07)
[2021-10-23] MEDS ORDERED: amLODIPine BESYLATE 5 MG TAB PO STA (23:18)
[2021-10-24] MEDS: APIXABAN 2.5 MG TAB PO SCH ×3 (00:39→20:36)
[2021-10-24] MEDS: INSULIN ASPART PER UNIT SC SCH ×5 (00:55→20:36)
[2021-10-24] MEDS ORDERED: DEXTROSE 50% 50 ML SYRINGE IV PRN (03:10)
[2021-10-24] MEDS ORDERED: GLUCOSE 40% GEL 15 GM TUBE PO PRN (03:10)
[2021-10-24] MEDS ORDERED: ACETAMINOPHEN 325 MG TAB PO PRN (03:10)
[2021-10-24] MEDS ORDERED: GLUCOSE 10 TABS/TUBE PO PRN (03:10)
[2021-10-24] MEDS ORDERED: GLUCAGON FOR INJ 1 MG VIAL SQ PRN (03:10)
[2021-10-24] MEDS ORDERED: CARBOHYDRATES FOR HYPOGLYCEMIA PO PRN (03:10)
[2021-10-24] MEDS ORDERED: PROMETHAZINE HCL 12.5 MG in SODIUM CHLORIDE 0.9% 50 ML IV PRN (03:10)
[2021-10-24] MEDS ORDERED: AMPICILLIN/SULBACTAM CONSULT ACTIVE PRN (03:30)
[2021-10-24] MEDS: ESCITALOPRAM OXALATE 10 MG TAB PO SCH ×2 (03:45→20:38)
[2021-10-24] MEDS: FAMOTIDINE 20 MG TAB PO SCH ×3 (03:45→20:37)
[2021-10-24] MEDS: AMPICILLIN/SULBACTAM SOD 1,500 MG in 0.9 % SODIUM CHLORIDE 100 ML IV SCH ×4 (03:46→21:53)
[2021-10-24 04:16] LABS: Hematocrit (blood only) 41.9 % (37-47); Hemoglobin 13.8 g/dL (12.0-16.0); Mean Corpuscular Hemoglobin 35.7 pg (25-34); Mean Corpuscular Hgb Conc 32.9 g/dL (32-36); Mean Corpuscular Volume 108.3 fL (80-100); Mean Platelet Volume 10.7 fL (7.4-10.4); Platelet Count 236 K/uL (130-400); RDW Coefficient of Variation 13.8 % (11.5-14.5); RDW Standard Deviation 54.3 fL (36.4-46.3); Red Blood Count 3.87 M/uL (4.2-5.4); White Blood Count 19.85 K/uL (4.8-10.8)
[2021-10-24 04:33] LABS: Basophils # (auto) 0.02 K/uL (0-0.2); Basophils % (auto) 0.1 %; Immature Granulocytes # (auto) 0.06 K/uL (0.00-0.02); Immature Granulocytes % (auto) 0.3 %; Lymphocytes # (auto) 1.06 K/uL (1.2-3.4); Lymphocytes % (auto) 5.3 %; Monocytes # (auto) 0.84 K/uL (0.11-0.59); Monocytes % (auto) 4.2 %; Neutrophils # (auto) 17.87 K/uL (1.4-6.5); Neutrophils % (auto) 90.1 %
[2021-10-24 04:38] LABS: BUN Creatinine Ratio 13.7 (10-20); Calcium 8.7 mg/dl (8.5-10.1); Creatinine Clr Calc Pharmacy 21.1 ml/min; Est GFR (African American) 25.6 ml/min; Potassium 4.3 mmol/L (3.5-5.1)
[2021-10-24] MEDS ORDERED: DOXYCYCLINE HYCLATE 100 MG in DEXTROSE 5% 100 ML IV STA (04:44)
[2021-10-24] MEDS ORDERED: LACTATED RINGER'S 1,000 ML IV ONE ×2 (04:45→15:00)
[2021-10-24] MEDS: LEVOTHYROXINE SODIUM 100 MCG TABLET PO SCH (06:27)
[2021-10-24] MEDS: AMIODARONE 200 MG TAB PO SCH (08:17)
[2021-10-24] MEDS: CLOPIDOGREL BISULFATE 75 MG TAB PO SCH (08:18)
[2021-10-24] MEDS: allopurinoL 100 MG TAB PO SCH (08:18)
[2021-10-24] MEDS: METOPROLOL SUCC 25MG EXT REL TAB PO SCH (08:18)
[2021-10-24] MEDS ORDERED: CONSULT PHARMACY SCH (09:00)
[2021-10-24] MEDS ORDERED: Nursing to Pharmacy Communication SCH (16:45)
--- NOTE | 2021-10-24 18:34 | Hospitalist Progress Note ---
Date of Service October 24, 2021 Assessment & Plan (1) Acute hypoxemic respiratory failure: Plan: Acute respiratory failure with hypoxia Secondary to possible aspiration pneumonia Severe sepsis SIRS plus lactic acid elevation secondary to above R/O Bacteremia --CT :Partially imaged patchy bibasilar groundglass and consolidative opacities are compatible with a nonspecific infectious or inflammatory pneumonitis. -Blood Culture:1/2 growing gram-positive cocci in clusters Aspiration precautions Continue doxycycline, Unasyn Repeat blood cultures today Continue IV fluids Currently saturating well on room air Speech therapy evaluation Chronic systolic heart failure secondary to nonischemic cardiomyopathy (EF 40%, TTE 2019) No signs of decompensation Not on diuretics at home Monitor volume status H/O Afib SSS S/P PPM on Eliquis On amiodarone, Metoprolol 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 Continue current medications Monitor Hyperlipidemia on statin H/O CVA On Plavix, statin DM II Diet-controlled Recent hemoglobin A1c of 6.28 September 2021 Continue insulin therapy while hospitalized CKD III Creatinine at baseline Monitor renal function Avoid nephrotoxic agents as able Hypothyroidism Continue levothyroxine DVT Px: On Eliquis CODE STATUS DNI DNR Admission and Anticipated Discharge Date Admission Date: October 23, 2021 Subjective Patient is seen and examined at bedside States having minimal cough today Nausea, vomiting, abdominal pain resolved Denies any chest pain, shortness of breath Family at bedside Offers no other complaints Review of Systems Review of Systems: All systems reviewed & are unremarkable except as noted in Subjective Physical Exam Physical Exam: Physical Exam: Vitals signs as noted above General Appearance:Moderately built and nourished, no apparent distress, +hearing impairment Head: normocephalic, Atraumatic Eyes: normal inspection, EOMI Neck: supple, Trachea midline Respiratory/Chest: Decreased breath sounds, scattered rhonchi Cardiovascular: S1, S2, No murmur Abdomen/GI:Soft, Non tender, Bowel sounds present Extremities/Musculoskeletal:normal inspection, no edema Neurologic/Psych:AAOX3, grossly no focal neurological deficits Skin: normal color, warm Results & Data Results & Data ([facility]) Vital Signs (Past 12 Hours) Vital Signs Temp Pulse Resp BP Pulse Ox 10/24/21 15:22 36.6 C 64 18 113/68 94 10/24/21 11:16 36.9 C 63 18 92/56 L 95 10/24/21 06:47 37.2 C 60 20 133/68 94 Laboratory Results Short CBC 10/23/21 10/24/21 Range/Units 18:28 04:03 WBC 12.09 H 19.85 H (4.8-10.8) K/uL Hgb 14.2 13.8 (12.0-16.0) g/dL Hct 42.0 41.9 (37-47) % Plt Count 274 236 (130-400) K/uL BMP 10/23/21 10/24/21 18:28 04:03 Sodium 138 139 Potassium 3.6 4.3 D Chloride 107 108 H Carbon Dioxide 23 20 L BUN 29 H 29 H Creatinine 2.05 H 2.12 H Glucose 219 H 176 H Calcium 9.5 8.7 Cardiac Enzymes 10/23/21 Range/Units 18:28 Troponin I < 0.015 (0-0.045) ng/ml Liver Function 10/23/21 Range/Units 18:28 Total Bilirubin 0.8 (0.2-1) mg/dl AST 21 (15-37) U/L ALT 29 (12-78) Alkaline Phosphatase 162 H (45-117) U/L Albumin 3.9 (3.4-5.0) gm/dl Urine 10/23/21 Range/Units 19:23 Urine Color Yellow Urine Appearance Clear (Clear) Urine pH 6.5 (4.5-7.5) Ur Specific [place] 1.017 (1.000-1.030) Urine Protein 1+ H (Negative) Urine Glucose (UA) Negative (Negative)
[2021-10-24] MEDS: INSULIN GLARGINE SOLOSTAR 100 UNITS/ML 3 ML PEN SC SCH (20:37)
[2021-10-24] MEDS: amLODIPine BESYLATE 5 MG TAB PO SCH (20:38)
[2021-10-24] MEDS: ATORVASTATIN 40 MG TAB PO SCH (20:39)
[2021-10-24] MEDS: DOXYCYCLINE HYCLATE 100 MG CAP PO SCH (20:39)
[2021-10-25] MEDS: AMPICILLIN/SULBACTAM SOD 1,500 MG in 0.9 % SODIUM CHLORIDE 100 ML IV SCH ×3 (04:27→21:51)
[2021-10-25 05:48] LABS: Hematocrit (blood only) 34.8 % (37-47); Hemoglobin 11.5 g/dL (12.0-16.0); Mean Corpuscular Hemoglobin 36.2 pg (25-34); Mean Corpuscular Volume 109.4 fL (80-100); Mean Platelet Volume 10.4 fL (7.4-10.4); Platelet Count 198 K/uL (130-400); RDW Coefficient of Variation 14.2 % (11.5-14.5); RDW Standard Deviation 57.2 fL (36.4-46.3); Red Blood Count 3.18 M/uL (4.2-5.4); White Blood Count 11.62 K/uL (4.8-10.8)
[2021-10-25] MEDS: LEVOTHYROXINE SODIUM 100 MCG TABLET PO SCH (05:53)
[2021-10-25 06:18] LABS: BUN Creatinine Ratio 16.7 (10-20); Calcium 8.8 mg/dl (8.5-10.1); Est GFR (African American) 29.2 ml/min; Est GFR (Non-African American) 25.2 ml/min
--- NOTE | 2021-10-25 07:33 | Electrocardiogram Report ---
Test Reason : Blood Pressure : / mmHG Vent. Rate : 065 BPM Atrial Rate : 065 BPM P-R Int : 310 ms QRS Dur : 172 ms QT Int : 526 ms P-R-T Axes : 000 -63 051 degrees QTc Int : 547 ms Atrial-paced rhythm with prolonged AV conduction Left axis deviation Left bundle branch block Abnormal ECG When compared with ECG of 03-AUG-2021 10:39, QRS duration has increased T wave amplitude has increased in Anterior leads QT has lengthened Confirmed by Abdullahi Ornelas ([id number]) on 10/25/2021 7:33:43 AM Referred By: REFERRED SELF Confirmed By:Abdullahi Ornelas
[2021-10-25] MEDS: INSULIN ASPART PER UNIT SC SCH ×4 (08:23→20:56)
[2021-10-25] MEDS: METOPROLOL SUCC 25MG EXT REL TAB PO SCH (08:24)
[2021-10-25] MEDS: AMIODARONE 200 MG TAB PO SCH (08:24)
[2021-10-25] MEDS: FAMOTIDINE 20 MG TAB PO SCH ×2 (08:24→20:53)
[2021-10-25] MEDS: DOXYCYCLINE HYCLATE 100 MG CAP PO SCH ×2 (08:24→20:51)
[2021-10-25] MEDS: CLOPIDOGREL BISULFATE 75 MG TAB PO SCH (08:24)
[2021-10-25] MEDS: allopurinoL 100 MG TAB PO SCH (08:25)
[2021-10-25] MEDS: APIXABAN 2.5 MG TAB PO SCH ×2 (08:25→20:52)
--- NOTE | 2021-10-25 16:32 | Hospitalist Progress Note ---
Date of Service October 25, 2021 Assessment & Plan (1) Acute hypoxemic respiratory failure: Plan: Acute respiratory failure with hypoxia Secondary to possible aspiration pneumonia Severe sepsis SIRS plus lactic acid elevation secondary to above R/O Bacteremia --CT :Partially imaged patchy bibasilar groundglass and consolidative opacities are compatible with a nonspecific infectious or inflammatory pneumonitis. -Blood Culture:1/2 growing gram-positive cocci in clusters Aspiration precautions Continue doxycycline, Unasyn Repeat blood cultures pending Received IV fluids Speech therapy evaluation Leukocytosis trending down Saturating well on room air Chronic systolic heart failure secondary to nonischemic cardiomyopathy (EF 40%, TTE 2019) No signs of decompensation Not on diuretics at home Monitor volume status H/O Afib SSS S/P PPM on Eliquis On amiodarone, Metoprolol 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 Continue current medications Monitor Hyperlipidemia on statin H/O CVA On Plavix, statin DM II Diet-controlled Recent hemoglobin A1c of 6.28 September 2021 Continue insulin therapy while hospitalized CKD III Creatinine at baseline Monitor renal function Avoid nephrotoxic agents as able Creatinine 1.9 today Hypothyroidism Continue levothyroxine DVT Px: On Eliquis CODE STATUS DNI DNR Disposition PT OT prior to discharge Admission and Anticipated Discharge Date Admission Date: October 23, 2021 Subjective Patient is seen and examined at bedside States feeling tired this morning Sitting in chair during my encounter Less cough today Offers no other complaints Denies any chest pain, shortness of breath Review of Systems Review of Systems: All systems reviewed & are unremarkable except as noted in Subjective Physical Exam Physical Exam: Physical Exam: Vitals signs as noted above General Appearance:Moderately built and nourished, no apparent distress, +hearing impairment Head: normocephalic, Atraumatic Eyes: normal inspection, EOMI Neck: supple, Trachea midline Respiratory/Chest: Decreased breath sounds, CTA Cardiovascular: S1, S2, No murmur Abdomen/GI:Soft, Non tender, Bowel sounds present Extremities/Musculoskeletal:normal inspection, no edema Neurologic/Psych:AAOX3, grossly no focal neurological deficits Skin: normal color, warm Results & Data Results & Data ([place]) Vital Signs (Past 12 Hours) Vital Signs Temp Pulse Pulse Resp BP Pulse Ox 10/25/21 16:02 36.7 C 67 18 125/76 94 10/25/21 11:26 36.7 C 62 18 119/62 98 10/25/21 11:01 60 10/25/21 07:09 36.8 C 67 18 115/59 L 91 Laboratory Results Short CBC 10/25/21 Range/Units 05:33 WBC 11.62 H (4.8-10.8) K/uL Hgb 11.5 L (12.0-16.0) g/dL Hct 34.8 L (37-47) % Plt Count 198 (130-400) K/uL BMP 10/25/21 05:33 Sodium 138 Potassium 4.0 Chloride 108 H Carbon Dioxide 23 BUN 32 H Creatinine 1.90 H Glucose 115 H Calcium 8.8
[2021-10-25] MEDS: amLODIPine BESYLATE 5 MG TAB PO SCH (20:52)
[2021-10-25] MEDS: ATORVASTATIN 40 MG TAB PO SCH (20:52)
[2021-10-25] MEDS: ESCITALOPRAM OXALATE 10 MG TAB PO SCH (20:53)
[2021-10-25] MEDS: INSULIN GLARGINE SOLOSTAR 100 UNITS/ML 3 ML PEN SC SCH (20:57)
[2021-10-26] MEDS: LEVOTHYROXINE SODIUM 100 MCG TABLET PO SCH (05:35)
[2021-10-26 07:10] LABS: Hematocrit (blood only) 35.1 % (37-47); Hemoglobin 11.4 g/dL (12.0-16.0); Mean Corpuscular Hemoglobin 35.1 pg (25-34); Mean Corpuscular Hgb Conc 32.5 g/dL (32-36); Mean Platelet Volume 10.9 fL (7.4-10.4); Platelet Count 209 K/uL (130-400); RDW Coefficient of Variation 14.2 % (11.5-14.5); RDW Standard Deviation 56.2 fL (36.4-46.3); Red Blood Count 3.25 M/uL (4.2-5.4); White Blood Count 11.04 K/uL (4.8-10.8)
[2021-10-26 07:29] LABS: BUN Creatinine Ratio 16.8 (10-20); Calcium 8.5 mg/dl (8.5-10.1); Creatinine Clr Calc Pharmacy 24.8 ml/min; Est GFR (African American) 29.2 ml/min; Est GFR (Non-African American) 25.2 ml/min; Potassium 3.7 mmol/L (3.5-5.1)
[2021-10-26] MEDS: APIXABAN 2.5 MG TAB PO SCH ×2 (07:53→20:44)
[2021-10-26] MEDS: INSULIN ASPART PER UNIT SC SCH ×4 (07:53→20:45)
[2021-10-26] MEDS: DOXYCYCLINE HYCLATE 100 MG CAP PO SCH ×2 (07:53→20:43)
[2021-10-26] MEDS: allopurinoL 100 MG TAB PO SCH (07:53)
[2021-10-26] MEDS: AMIODARONE 200 MG TAB PO SCH (07:53)
[2021-10-26] MEDS: METOPROLOL SUCC 25MG EXT REL TAB PO SCH (07:54)
[2021-10-26] MEDS: FAMOTIDINE 20 MG TAB PO SCH ×2 (07:54→20:44)
[2021-10-26] MEDS: CLOPIDOGREL BISULFATE 75 MG TAB PO SCH (07:54)
[2021-10-26] MEDS: AMPICILLIN/SULBACTAM SOD 1,500 MG in 0.9 % SODIUM CHLORIDE 100 ML IV SCH ×2 (10:53→21:16)
--- NOTE | 2021-10-26 14:42 | Hospitalist Progress Note ---
Date of Service October 26, 2021 Assessment & Plan (1) Acute hypoxemic respiratory failure: Plan: Acute respiratory failure with hypoxia Secondary to possible aspiration pneumonia Severe sepsis SIRS plus lactic acid elevation secondary to above R/O Bacteremia --CT :Partially imaged patchy bibasilar groundglass and consolidative opacities are compatible with a nonspecific infectious or inflammatory pneumonitis. -Blood Culture:1/2 growing coagulase-negative staph not lugdunesis --likely contamination Repeat blood cultures negative to date Aspiration precautions Continue doxycycline, Unasyn Received IV fluids Speech therapy evaluation Leukocytosis stable Saturating low 90s on room air Needs 2 step prior to discharge Chronic systolic heart failure secondary to nonischemic cardiomyopathy (EF 40%, TTE 2019) No signs of decompensation Not on diuretics at home Monitor volume status H/O Afib SSS S/P PPM on Eliquis On amiodarone, Metoprolol 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 Continue current medications Monitor Hyperlipidemia on statin H/O CVA On Plavix, statin DM II Diet-controlled Recent hemoglobin A1c of 6.28 September 2021 Continue insulin therapy while hospitalized CKD III Creatinine at baseline Monitor renal function Avoid nephrotoxic agents as able Creatinine 1.9 today Hypothyroidism Continue levothyroxine DVT Px: On Eliquis CODE STATUS DNI DNR Disposition PT OT prior to discharge Admission and Anticipated Discharge Date Admission Date: October 23, 2021 Subjective Patient is seen and examined at bedside States feeling well today Reports minimal cough non expectorant Eager to get discharged Denies any chest pain, shortness of breath, nausea, vomiting, dizziness Review of Systems Review of Systems: All systems reviewed & are unremarkable except as noted in Subjective Physical Exam Physical Exam: Physical Exam: Vitals signs as noted above General Appearance:Moderately built and nourished, no apparent distress, +hear ing impairment Head: normocephalic, Atraumatic Eyes: normal inspection, EOMI Neck: supple, Trachea midline Respiratory/Chest: Decreased breath sounds, CTA Cardiovascular: S1, S2, No murmur Abdomen/GI:Soft, Non tender, Bowel sounds present Extremities/Musculoskeletal:normal inspection, no edema Neurologic/Psych:AAOX3, grossly no focal neurological deficits Skin: normal color, warm Results & Data Results & Data ([facility]) Vital Signs (Past 12 Hours) Vital Signs Temp Pulse Pulse Resp BP Pulse Ox 10/26/21 11:35 36.6 C 59 L 14 124/74 90 10/26/21 08:00 61 10/26/21 07:02 36.8 C 61 15 120/71 92 10/26/21 04:37 36.4 C L 68 20 133/80 93 Laboratory Results Short CBC 10/26/21 Range/Units 05:58 WBC 11.04 H (4.8-10.8) K/uL Hgb 11.4 L (12.0-16.0) g/dL Hct 35.1 L (37-47) % Plt Count 209 (130-400) K/uL BMP 10/26/21 05:58 Sodium 139 Potassium 3.7 Chloride 108 H Carbon Dioxide 26 BUN 32 H Creatinine 1.90 H Glucose 110 H Calcium 8.5
[2021-10-26] MEDS: amLODIPine BESYLATE 5 MG TAB PO SCH (20:43)
[2021-10-26] MEDS: ESCITALOPRAM OXALATE 10 MG TAB PO SCH (20:44)
[2021-10-26] MEDS: ATORVASTATIN 40 MG TAB PO SCH (20:44)
[2021-10-26] MEDS: INSULIN GLARGINE SOLOSTAR 100 UNITS/ML 3 ML PEN SC SCH (20:45)
[2021-10-27] MEDS: LEVOTHYROXINE SODIUM 100 MCG TABLET PO SCH (05:50)
[2021-10-27 07:26] LABS: Hematocrit (blood only) 35.2 % (37-47); Hemoglobin 11.7 g/dL (12.0-16.0); Mean Corpuscular Hemoglobin 35.3 pg (25-34); Mean Corpuscular Hgb Conc 33.2 g/dL (32-36); Mean Corpuscular Volume 106.3 fL (80-100); Mean Platelet Volume 10.8 fL (7.4-10.4); Platelet Count 200 K/uL (130-400); RDW Coefficient of Variation 14.2 % (11.5-14.5); RDW Standard Deviation 55.5 fL (36.4-46.3); Red Blood Count 3.31 M/uL (4.2-5.4); White Blood Count 11.76 K/uL (4.8-10.8)
[2021-10-27 07:55] LABS: BUN Creatinine Ratio 13.8 (10-20); Calcium 8.8 mg/dl (8.5-10.1); Creatinine Clr Calc Pharmacy 22.8 ml/min; Est GFR (African American) 26.5 ml/min; Est GFR (Non-African American) 22.8 ml/min; Potassium 3.8 mmol/L (3.5-5.1)
--- NOTE | 2021-10-27 08:36 | XRay Report ---
XR chest 1V portable CLINICAL HISTORY: Pneumonia TECHNIQUE: Single frontal radiograph of the chest was obtained. Comparison: Comparison is made to chest one view 10/23/2021 FINDINGS: Dual lead pacemaker is seen. The cardiomediastinal silhouette is normal. Faint bibasilar airspace opa cities are seen. No evidence of pleural effusion or pneumothorax. IMPRESSION: Faint bibasilar airspace opacities which may represent atelectasis, pneumonia, and/or aspiration. ACT 112: Negative or not required by law. Electronically signed by: Rd Adams M.D. 10/27/2021 8:35 AM
[2021-10-27] MEDS: APIXABAN 2.5 MG TAB PO SCH ×2 (08:52→21:19)
[2021-10-27] MEDS: METOPROLOL SUCC 25MG EXT REL TAB PO SCH (08:52)
[2021-10-27] MEDS: CLOPIDOGREL BISULFATE 75 MG TAB PO SCH (08:52)
[2021-10-27] MEDS: DOXYCYCLINE HYCLATE 100 MG CAP PO SCH ×2 (08:52→21:18)
[2021-10-27] MEDS: AMIODARONE 200 MG TAB PO SCH (08:52)
[2021-10-27] MEDS: FAMOTIDINE 20 MG TAB PO SCH ×2 (08:52→21:21)
[2021-10-27] MEDS: allopurinoL 100 MG TAB PO SCH (08:53)
[2021-10-27] MEDS: INSULIN ASPART PER UNIT SC SCH ×4 (08:58→20:49)
[2021-10-27] MEDS: AMPICILLIN/SULBACTAM SOD 1,500 MG in 0.9 % SODIUM CHLORIDE 100 ML IV SCH (10:04)
--- NOTE | 2021-10-27 12:50 | Hospitalist Progress Note ---
Date of Service October 27, 2021 Assessment & Plan (1) Acute hypoxemic respiratory failure: Plan: Acute respiratory failure with hypoxia Secondary to possible aspiration pneumonia Severe sepsis SIRS plus lactic acid elevation secondary to above R/O Bacteremia --CT :Partially imaged patchy bibasilar groundglass and consolidative opacities are compatible with a nonspecific infectious or inflammatory pneumonitis. -Blood Culture:1/2 growing coagulase-negative staph not lugdunesis --likely contamination Repeat blood cultures negative to date Aspiration precautions Was on doxycycline, Unasyn. Change to Augmentin and doxycycline Speech therapy evaluation noted Get 2 step in AM prior to DC Chronic systolic heart failure secondary to nonischemic cardiomyopathy (EF 40%, TTE 2019) No signs of decompensation Not on diuretics at home Monitor volume status H/O Afib SSS S/P PPM on Eliquis On amiodarone, Metoprolol 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 Continue current medications Monitor Hyperlipidemia on statin H/O CVA On Plavix, statin DM II Diet-controlled Recent hemoglobin A1c of 6.28 September 2021 Continue insulin therapy while hospitalized CKD III Creatinine at baseline Monitor renal function Avoid nephrotoxic agents as able Creatinine 2.06 today Hypothyroidism Continue levothyroxine DVT Px: On Eliquis CODE STATUS DNI DNR Disposition PT/OT eval noted . plan to dc home tomorrow Admission and Anticipated Discharge Date Admission Date: October 23, 2021 Subjective Patient seen and examined. Patient reports some cough. Denies any shortness of breath, dyspnea on exertion, chest pain Denies any fevers, chills, nausea vomiting Denies abdominal pain, diarrhea Denies dysuria, frequency or urgency Physical Exam Constitutional: Elderly woman in no obvious distress Eyes: PERRL, conjunctivae normal, anicteric sclerae ENMT: external ear and nose normal, oropharynx normal Neck: Limited range of movement of neck which patient reported was chronic Respiratory: normal respiratory effort, lungs clear to auscultation Cardiovascular: Rate/Rhythm: regular rate and regular rhythm S1-S2 Gastrointestinal (Abdomen): normal bowel sounds, soft, nontender, no h epatosplenomegaly Musculoskeletal: no cyanosis or clubbing, extremities motor strength 5/5 Neurologic: PERRL, EOMI, accommodation nl, no face palsy, no dysarthria Psychiatric: A+Ox3, euthymic affect Results & Data Results & Data ([facility]) Vital Signs (Past 12 Hours) Vital Signs Temp Pulse Resp BP Pulse Ox 10/27/21 07:50 36.9 C 65 20 147/77 H 90 Laboratory Results Abnormal lab results 10/26/21 10/27/21 10/27/21 Range/Units 20:32 06:58 06:58 WBC 11.76 H (4.8-10.8) K/uL RBC 3.31 L (4.2-5.4) M/uL Hgb 11.7 L (12.0-16.0) g/dL Hct 35.2 L (37-47) % MCV 106.3 H (80-100) fL MCH 35.3 H (25-34) pg RDW Std Deviation 55.5 H (36.4-46.3) fL MPV 10.8 H (7.4-10.4) fL Chloride 109 H (98-107) mmol/L BUN 29 H (7-18) mg/dl Creatinine 2.06 H (0.6-1.2) mg/dl Glucose 122 H (70-99) mg/dl POC Glucose 113 H (70-99) mg/dl 10/27/21 10/27/21 Range/Units 08:08 12:21 WBC (4.8-10.8) K/uL RBC (4.2-5.4) M/uL Hgb (12.0-16.0) g/dL Hct (37-47) % MCV (80-100) fL MCH (25-34) pg RDW Std Deviation (36.4-46.3) fL MPV (7.4-10.4) fL Chloride (98-107) mmol/L BUN (7-18) mg/dl Creatinine (0.6-1.2) mg/dl Glucose (70-99) mg/dl POC Glucose 124 H 148 H (70-99) mg/dl
[2021-10-27] MEDS: AMOXICILLIN/CLAVULANATE 500 MG TAB PO SCH (17:26)
[2021-10-27] MEDS: INSULIN GLARGINE SOLOSTAR 100 UNITS/ML 3 ML PEN SC SCH (21:18)
[2021-10-27] MEDS: ATORVASTATIN 40 MG TAB PO SCH (21:18)
[2021-10-27] MEDS: ESCITALOPRAM OXALATE 10 MG TAB PO SCH (21:19)
[2021-10-27] MEDS: amLODIPine BESYLATE 5 MG TAB PO SCH (21:19)
[2021-10-28] MEDS: LEVOTHYROXINE SODIUM 100 MCG TABLET PO SCH (05:41)
[2021-10-28 06:58] LABS: Creatinine Clr Calc Pharmacy 25.1 ml/min; Est GFR (African American) 29.7 ml/min; Est GFR (Non-African American) 25.7 ml/min
[2021-10-28] MEDS: METOPROLOL SUCC 25MG EXT REL TAB PO SCH (09:09)
[2021-10-28] MEDS: DOXYCYCLINE HYCLATE 100 MG CAP PO SCH ×2 (09:10→19:41)
[2021-10-28] MEDS: AMOXICILLIN/CLAVULANATE 500 MG TAB PO SCH ×2 (09:10→17:43)
[2021-10-28] MEDS: APIXABAN 2.5 MG TAB PO SCH ×2 (09:10→19:42)
[2021-10-28] MEDS: AMIODARONE 200 MG TAB PO SCH (09:10)
[2021-10-28] MEDS: CLOPIDOGREL BISULFATE 75 MG TAB PO SCH (09:10)
[2021-10-28] MEDS: allopurinoL 100 MG TAB PO SCH (09:10)
[2021-10-28] MEDS: INSULIN ASPART PER UNIT SC SCH ×4 (09:13→20:40)
[2021-10-28] MEDS: FAMOTIDINE 20 MG TAB PO SCH ×2 (09:14→20:48)
--- NOTE | 2021-10-28 14:13 | Hospitalist Progress Note ---
Date of Service October 28, 2021 Assessment & Plan (1) Acute hypoxemic respiratory failure: Plan: Acute respiratory failure with hypoxia Secondary to possible aspiration pneumonia Severe sepsis SIRS plus lactic acid elevation secondary to above R/O Bacteremia --CT :Partially imaged patchy bibasilar groundglass and consolidative opacities are compatible with a nonspecific infectious or inflammatory pneumonitis. -Blood Culture:1/2 growing coagulase-negative staph not lugdunesis --likely contamination Repeat blood cultures negative to date Aspiration precautions Was on doxycycline, Unasyn. Was changed to Augmentin and doxycycline to complete treatment Speech therapy evaluation noted Chronic systolic heart failure secondary to nonischemic cardiomyopathy (EF 40%, TTE 2019) No signs of decompensation Not on diuretics at home Monitor volume status H/O Afib SSS S/P PPM on Eliquis On amiodarone, Metoprolol 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 Continue current medications Monitor Hyperlipidemia on statin H/O CVA On Plavix, statin DM II Diet-controlled Recent hemoglobin A1c of 6.28 September 2021 Continue insulin therapy while hospitalized CKD III Creatinine at baseline Monitor renal function Avoid nephrotoxic agents as able Creatinine 1.87 today Hypothyroidism Continue levothyroxine DVT Px: On Eliquis CODE STATUS DNI DNR Disposition PT/OT eval noted Based on CM conversations with family yesterday, there were concerns about pat ient going home Patient wants to go home. She stated family was coming to visit and she will discuss with them Dispo pending Admission and Anticipated Discharge Date Admission Date: October 23, 2021 Subjective Patient seen and examined. Patient has hearing deficits Denies cough today Denies any shortness of breath, dyspnea on exertion, chest pain Denies any fevers, chills, nausea vomiting Denies abdominal pain, diarrhea Denies dysuria, frequency or urgency Physical Exam Eyes: PERRL, conjunctivae normal, anicteric sclerae ENMT: external ear and nose normal, oropharynx normal Hearing deficit Respiratory: normal respiratory effort, lungs clear to auscultation Cardiovascular: Rate/Rhythm: regular rate and regular rhythm S1 S2 Gastrointestinal (Abdomen): normal bowel sounds, soft, nontender, no hepatosplenomegaly Musculoskeletal: no cyanosis or clubbing, extremities motor strength 5/5 Neurologic: PERRL, EOMI, accommodation nl, no face palsy, no dysarthria Psychiatric: A+Ox3, euthymic affect Results & Data Results & Data ([facility]) Vital Signs (Past 12 Hours) Vital Signs Pulse Pulse Pulse Pulse Resp Resp Resp 10/28/21 09:53 106 H 92 H 84 22 16 10/28/21 07:21 85 16 Resp BP Pulse Ox Pulse Ox Pulse Ox Pulse Ox 10/28/21 09:53 16 94 98 98 10/28/21 07:21 150/72 H 91 Laboratory Results Abnormal lab results 10/27/21 10/28/21 10/28/21 Range/Units 20:44 06:07 08:17 Creatinine 1.87 H (0.6-1.2) mg/dl POC Glucose 121 H 107 H (70-99) mg/dl 10/28/21 Range/Units 12:19 Creatinine (0.6-1.2) mg/dl POC Glucose 191 H (70-99) mg/dl
[2021-10-28] MEDS: ESCITALOPRAM OXALATE 10 MG TAB PO SCH (19:41)
[2021-10-28] MEDS: ATORVASTATIN 40 MG TAB PO SCH (19:42)
[2021-10-28] MEDS: amLODIPine BESYLATE 5 MG TAB PO SCH (19:42)
[2021-10-28] MEDS: INSULIN GLARGINE SOLOSTAR 100 UNITS/ML 3 ML PEN SC SCH (20:48)
[2021-10-29] MEDS: LEVOTHYROXINE SODIUM 100 MCG TABLET PO SCH (05:45)
[2021-10-29] MEDS: AMOXICILLIN/CLAVULANATE 500 MG TAB PO SCH (07:57)
[2021-10-29] MEDS: CLOPIDOGREL BISULFATE 75 MG TAB PO SCH (07:57)
[2021-10-29] MEDS: APIXABAN 2.5 MG TAB PO SCH (07:57)
[2021-10-29] MEDS: AMIODARONE 200 MG TAB PO SCH (07:57)
[2021-10-29] MEDS: FAMOTIDINE 20 MG TAB PO SCH (07:57)
[2021-10-29] MEDS: allopurinoL 100 MG TAB PO SCH (07:58)
[2021-10-29] MEDS: DOXYCYCLINE HYCLATE 100 MG CAP PO SCH (07:58)
[2021-10-29] MEDS: METOPROLOL SUCC 25MG EXT REL TAB PO SCH (07:58)
[2021-10-29] MEDS: INSULIN ASPART PER UNIT SC SCH ×2 (08:48→12:44)
--- NOTE | 2021-10-29 12:53 | Discharge Summary ---
Date of Service October 29, 2021 Admission HPI Per Admitting Provider History obtained from patient and records. Medical history significant for chronic systolic heart failure secondary to nonischemic cardiomyopathy (EF 40%, TTE 2019), SSS status post PPM on Eliquis, PSVT, hypertension, hyperlipidemia, history CVA, DM2 diet-controlled, CRI (baseline creatinine 2), hypothyroidism, dementia as per records. Last confinement July 2020 for A. fib with RVR, tachybradycardia syndrome s tatus post PPM. Patient experienced nausea followed by emesis today without abdominal pain complaints. Patient later noted mild cough productive of yellow sputum with wheeze. No chest pain. Some shortness of breath. Denies aspiration as per patient. No known recent COVID-19 contacts. Patient noted to be hypoxemic at the ER O2 sats 80s. Neb treatment and Zosyn administered at the ER. 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 Admission Exam Per Admitting Provider GENERAL: Comfortable, pleasant, hard of hearing, obese, no respiratory distress SKIN: Normal color, warm HEENT: [place] palpebral conjunctivae, no ptosis, dry buccal mucosa, nasal cannula in place NECK : Supple, no tenderness CHEST : Decreased breath sounds, occasional scattered wheezes, no tenderness HEART : RRR, no obvious murmurs ABDOMEN: Some distention, nontender EXTREMITIES : Minimal LE swelling, no LE tenderness, no other conspicuous deformities noted NEUROLOGIC : Coherent, no facial asymmetry, hard of hearing, gait and stance not assessed Principal Diagnosis Acute respiratory failure with hypoxia Possible aspiration pneumonia 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 Discharge Exam Gen: WD/WN, NAD, sitting in bedside chair, A&Ox3, pleasant HEENT: Normocephalic, atraumatic, conjunctivae moist, sclerae anicteric, mucous membranes moist Lung: Clear to Auscultation bilaterally, no wheezes/rales/rhonchi Heart: Regular rate, regular rhythm, no murmurs, rubs, or gallops Abdomen: Soft, NT, ND +BS x 4 Extremities: no edema Skin: Warm, no rash Discharge Data Allergies Allergy/AdvReac Type Severity Reaction Status Date / Time codeine Allergy Intermediate "UNSURE IF Verified 10/23/21 21:54 STILL ALLERGIC" Consultations 10/23/21 20:37 ED Decision to Admit Stat Ordered Studies 10/23/21 19:39 CT abd pelvis wo con Stat Hospital Course (1) Acute hypoxemic respiratory failure: (2) Pneumonia: (3) Intractable nausea and vomiting: (4) LBBB (left bundle branch block): (5) Paroxysmal atrial fibrillation with RVR: (6) CKD (chronic kidney disease) stage 3, GFR 30-59 ml/min: (7) Type 2 diabetes mellitus: (8) HTN (hypertension): This is a 76yo F with a PMH of chronic systolic heart failure secondary to nonischemic cardiomyopathy (EF 40%, TTE 2019), SSS status post PPM on Eliquis, PSVT, hypertension, hyperlipidemia, history CVA, DM2 diet-controlled, CRI (baseline creatinine 2), hypothyroidism, dementia as per records who presented with nausea, vomiting, cough and some shortness of breath and was found to have pneumonia. Patient initially hypoxic and requiring oxygen but subsequently weaned off and saturating at 94% on room air. Initially treated with doxycycline and Unasyn but was transitioned to Augmentin and doxycycline and completed treatment. Blood Culture:10/24 growing coagulase-negative staph not lugdunesis, which was likely a contamination. Repeat blood cultures negative to date. Due to elevated blood pressure during admission, patient started on 2.5mg Amlodipine. Patient is being discharged home with home health services. Comfortable and hemodynamically stable at time of discharge. Total Time Total Time Spent Total Time Spent (In Minutes): 40 Discharge Plan Discharge Items Patient Disposition: Home - Home Health Services Reason For Visit: RESP FAILURE Discharge Diagnosis: Acute respiratory failure with hypoxia Possible aspiration pneumonia 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 Activity: Resume your previous activity Non-emergency contact: Primary Care Provider Call non-emergency contact if: you have any medication questions and your symptoms worsen Follow-up/Referrals: Kasandra Antunez DO [Primary Care Provider] - (Date & Time 11/02/2021 3:00 PM Provider Kasandra Antunez DO Department [facility] ) Diet: Heart Healthy Addtl Attending Provider Instructions: Mrs Gabriel. You came to the hospital with nausea, vomiting, cough and some shortness of breath. Your evaluated and found to have pneumonia. This required oxygen initially which was subsequently weaned off. You were treated with antibiotics. You are being discharged home. You were started on low dose blood pressure medication (amlodipine) at bedtime for better blood pressure management Please ensure follow-up with your Primary Doctor. It was a pleasure taking care of you Pending Studies at Discharge: No Stand-Alone Forms: My [facility], Smoking Cessation Medications and DC Order Prescriptions: New amlodipine [Norvasc] 5 mg Tablet 2.5 mg PO HS Qty: 30 RF: 0 Continued clopidogrel 75 mg Tablet 75 mg PO QAM Qty: 30 RF: 0 atorvastatin 40 mg Tablet 40 mg PO QPM Qty: 30 RF: 0 famotidine 20 mg tablet 20 mg PO BID RF: 0 escitalopram oxalate 10 mg tablet 10 mg PO PM RF: 0 Eliquis 2.5 mg Tablet 2.5 mg PO BID Qty: 60 RF: 1 metoprolol succinate 25 mg Tablet Extended Release 24 Hr 25 mg PO QAM Qty: 30 RF: 1 allopurinol 100 mg tablet 100 mg PO QAM RF: 0 acetaminophen [Tylenol] 325 mg Capsule 325 mg PO Q6H PRN (Reason: pain/fever) RF: 0 amiodarone 200 mg tablet 200 mg PO QAM RF: 0 albuterol sulfate 90 mcg/actuation Hfa Aerosol Inhaler 2 puff INHALATION QID PRN (Reason: Shortness Of Breath Or Wheezing) RF: 0 ondansetron 4 mg tablet,disintegrating 4 mg PO Q8 PRN (Reason: nausea and vomiting) RF: 0 levothyroxine 100 mcg tablet 100 mcg PO DAILYBB RF: 0 Discharge Orders: Discharge Order (Routine); Ordered 10/29/21 Ordered By: Deborah Allison/Other Patient Handouts: Preventing Deep Vein Thrombosis Admission Data Admit Date/Time: 10/23/21 23:07 Attending Provider: Deborah Beltran I. Admit Provider: Jesus Mckenna Primary Care Provider: Kasandra Antunez Other Providers: Jesus Mckenna ; Raymundo Bustamante ; [place],[facility] ; [facility] ; Rosy Garcia Other Interventions: Discharge Summary Assessment (RN) Last Done: 10/29/21 12:59 Supervising Physician Co-Signing Physician Notes Patient seen and examined Agree with findings and plans as detailed by Rosy Corbin PA-C
--- NOTE | 2021-11-13 11:27 | Coding Query ---
To promote full compliance with coding requirements relating to patient care, provider participation is requested in all cases of senior abap developer uncertainty. Please assist us with the question(s) below: Coding Question(s): The diagnosis(es) below was documented in the progress notes, but was not included on the discharge summary Please indicate if it is still a possible diagnosis or ruled out. Physician's Response(s): SEVERE SEPSIS ( x ) Diagnosed and POA ( ) Diagnosed and not POA ( ) Ruled out ( ) Other (please specify) Physician's Comment: Thank you for your time, WHITNEY Pate,[facility]
== END 2021-10-29 15:15 | disposition home health service (06) | DRG 871 ==
LOC: ED 17:43 → 2S 23:07 → SUATTDRO 23:07 → 2S 10-24 02:22 → 3W 10-26 17:25

== ENCOUNTER 2022-05-08 05:05 | Inpatient (IN) ==
--- NOTE | 2022-05-08 05:17 | Emergency Department Note ---
Impression & Plan Hypoxia ADMIT ED Provider Note HPI: The patient is a 76-year-old female with history of type 2 diabetes, hypertension, chronic kidney disease, nonischemic cardiomyopathy with reduced ejection fraction, sick sinus syndrome status post pacemaker, dementia, presents emergency department with chief complaint of increasing shortness of breath over the past 4 days. Per EMS patient had increased work of breathing and hypoxia in the field and was placed on nonrebreather mask. On my initial assessment the patient is saturating well on 10L Oxymask with mild increased work of breathing. Patient denies any chest pain. 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 She is stable now on 10 L Oxy mask. Chest x-ray shows concern for pulmonary edema and possible superimposed pneumonia at the bilateral bases per my interpretation. Patient was given a breathing treatment as well as IV Lasix here in the ED. Lab work shows evidence of leukocytosis greater than 15,000 and therefore blood cultures were drawn in the ED, patient was started on ceftriaxone and azithromycin. COVID-19 test is pending at the time of admission. Troponin levels within normal limits, EKG does not show any acute is chemic changes. Patient denies any chest pain. Case was discussed with the on-call hospitalist for [facility], Dr. Blanton approved, and the patient was admitted in stable condition for further care. * CRITICAL CARE TIME: (35) minutes -Stabilization of hypoxia with oxygen saturations less than 90% on room air requiring oxy mask for improvement/stabilization, time spent at the bedside, interpretation of diagnostic studies, arrangement of admission Diagnosis: 1. Acute hypoxic respiratory failure 2. Community-acquired pneumonia 3. Acute on chronic CHF exacerbation with elevated BNP Disposition: Admission Roberto Yoon DO Emergency Medicine Past Med/Surg History Medical History (Updated 05/08/22 @ 06:10 by Roberto Yoon DO) Atrial fibrillation CKD (chronic kidney disease) stage 3, GFR 30-59 ml/min Degenerative disc disease, cervical Dyslipidemia MELQUIADES (generalized anxiety disorder) GERD without esophagitis Hearing loss History of adenomatous polyp of colon History of right MCA stroke HTN (hypertension) Hypertensive cardiomegaly Type 2 diabetes mellitus Vitamin D deficiency Surgical History History of arthroplasty of left knee History of carpal tunnel surgery History of cholecystectomy History of D&C History of excision of lesion Back - Dr. Tucker Family History Other Diabetes Heart disease Social History Smoking Status: Former smoker Second Hand Exposure: No; Hx Alcohol Use: No Hx Substance Use: No Preferred Language: Croatian Communication Ability: Effective Hearing Ability: Hard of Hearing Rn Transport Required: No Beliefs That Will Affect Care: None marital status: Current Living Situation: Family Feels Safe at Home: Yes Assistive Devices: Hearing Aid - Left and Hearing Aid - Right Allergies Allergies Allergy/AdvReac Type Severity Reaction Status Date / Time codeine Allergy Intermediate "UNSURE IF Verified 10/23/21 21:54 STILL ALLERGIC" Home Meds Home Medications Medication Instructions Recorded Confirmed acetaminophen 325 mg capsule 325 mg PO Q6H PRN pain/fever 06/11/19 10/23/21 (Tylenol) allopurinol 100 mg tablet 100 mg PO QAM 06/11/19 10/23/21 escitalopram oxalate 10 mg tablet 10 mg PO PM 08/12/20 10/23/21 amiodarone 200 mg tablet 200 mg PO QAM 08/03/21 10/23/21 albuterol sulfate 90 mcg/actuation 2 puff inhalation QID PRN 10/23/21 10/23/21 aerosol inhaler Shortness Of Breath Or Wheezing levothyroxine 100 mcg tablet 100 mcg PO DAILYBB 10/23/21 10/23/21 ondansetron 4 mg disintegrating 4 mg PO Q8 PRN nausea and vomiting 10/23/21 10/23/21 tablet famotidine 10 mg tablet 10 mg PO DAILY 05/08/22 05/08/22 Previous Rx's Medication Instructions Recorded atorvastatin 40 mg tablet 40 mg PO QPM #30 tabs 02/24/20 clopidogrel 75 mg tablet 75 mg PO QAM #30 tabs 02/24/20 apixaban 2.5 mg tablet (Eliquis) 2.5 mg PO BID #60 tabs 08/17/20 metoprolol succinate 25 mg 25 mg PO QAM #30 tabs 08/17/20 tablet,extended release 24 hr amlodipine 5 mg tablet (Norvasc) 2.5 mg PO HS #30 tabs 10/28/21 Results & Data (ED) Vital Signs Vital Signs - 24 hr 05/08/22 05:22 05/08/22 05:26 05/08/22 05:21 Temperature 37.2 C Temperature Source Oral Pulse Rate 85 Pulse Rate [Apical] Respiratory Rate 20 Respiratory Effort / Characteristics Labored Blood Pressure 159/88 H Blood Pressure [Right Arm] Blood Pressure Mean 111 Blood Pressure Mean [Right Arm] Pulse Oximetry 94 80 L Oxygen Delivery Method Oxymask Oxymask Oxygen Flow Rate 10 0 Sepsis Recent Fever Within 48 Hours No Sepsis New/Unexplained Change in Mental Status No Sepsis Action Taken by Nursing No Action Required Oxygen Flow Rate - Titration 10 Pulse Oximetry Post Tiitration 94 05/08/22 06:20 05/08/22 05:08 Temperature Temperature Source Pulse Rate Pulse Rate [Apical] 64 Respiratory Rate 18 Respiratory Effort / Characteristics Blood Pressure Blood Pressure [Right Arm] 163/100 H Blood Pressure Mean Blood Pressure Mean [Right Arm] 121 Pulse Oximetry 94 94 Oxygen Delivery Method Oxymask Oxymask Oxygen Flow Rate 8 8 Sepsis Recent Fever Within 48 Hours Sepsis New/Unexplained Change in Mental Status Sepsis Action Taken by Nursing Oxygen Flow Rate - Titration Pulse Oximetry Post Tiitration Laboratory Data Result diagrams: 05/08/22 05:17 05/08/22 05:17 Lab Results 05/08/22 05/08/22 05/08/22 Range/Units 05:17 05:17 05:17 WBC 15.31 H (4.8-10.8) K/ul RBC 3.57 L (3.93-5.22) M/uL Hgb 12.0 (12.0-16.0) g/dl Hct 37.3 (34.1-44.9) % MCV 104.5 H (80.0-100.0) fL MCH 33.6 (25.0-34.0) pg MCHC 32.2 (32.0-36.0) g/dL RDW Std Deviation 53.4 H (36.4-46.3) fL RDW Coeff of Etta 14.1 (11.5-14.5) % Plt Count 290 (130-400) K/uL MPV 11.2 (9.4-12.3) fL Immature Gran % (Auto) 0.5 % Neut % (Auto) 69.3 % Lymph % (Auto) 19.9 % Rhea % (Auto) 8.4 % Eos % (Auto) 1.3 % Baso % (Auto) 0.6 % Neut # (Auto) 10.61 H (1.4-6.5) K/uL Lymph # (Auto) 3.05 (1.2-3.4) K/uL Rhea # (Auto) 1.29 H (0.24-0.82) K/uL Eos # (Auto) 0.20 (0-0.50) K/uL Baso # (Auto) 0.09 (0-0.2) K/uL Immature Gran # (Auto) 0.07 H (0.00-0.02) K/uL PT 11.5 (9.0-12.0) Seconds INR 1.1 (0.9-1.1) APTT 26.9 (21.0-31.0) Seconds PTT Ratio 1.0 VBG pH (7.36-7.41) VBG pCO2 (38-50) mmHg VBG pO2 mmHg VBG HCO3 mmol/L VBG O2 Saturation % VBG Base Excess mEq/L Sodium 139 (136-145) mmol/L Potassium 3.6 (3.5-5.1) mmol/L Chloride 106 (98-107) mmol/L Carbon Dioxide 21 (21-32) mmol/L Anion Gap 12 H (3-11) BUN 24 H (6-23) mg/dl Creatinine 1.76 H (0.6-1.2) mg/dl Est Cr Clr Drug Dosing 26.5 ml/min Est GFR ( Amer) 32.0 ml/min Est GFR (Non-Af Amer) 27.6 ml/min BUN/Creatinine Ratio 13.6 (10-20) Glucose 199 H (70-99(Fasting)) mg/dl Calcium 9.2 (8.5-10.1) mg/dl Total Bilirubin 1.2 H (0.2-1.0) mg/dl AST 14 (13-39) U/L ALT 12 (7-52) U/L Alkaline Phosphatase 142 H (34-104) U/L Troponin I High Sens 7.4 (0-14) pg/ml B-Natriuretic Peptide (0-100) pg/ml Total Protein 7.4 (6.0-8.3) gm/dl Albumin 4.2 (3.4-5.0) gm/dl Globulin 3.2 (2.5-4.0) gm/dl Albumin/Globulin Ratio 1.3 (0.9-2) SARS-CoV-2 (PCR) (Negative) Influenza Type A (PCR) (Neg) Influenza Type B (PCR) (Neg) RSV (RT-PCR) (Neg) 05/08/22 05/08/22 05/08/22 Range/Units 05:17 05:17 05:25 WBC (4.8-10.8) K/ul RBC (3.93-5.22) M/uL Hgb (12.0-16.0) g/dl Hct (34.1-44.9) % MCV (80.0-100.0) fL MCH (25.0-34.0) pg MCHC (32.0-36.0) g/dL RDW Std Deviation (36.4-46.3) fL RDW Coeff of Etta (11.5-14.5) % Plt Count (130-400) K/uL MPV (9.4-12.3) fL Immature Gran % (Auto) % Neut % (Auto) % Lymph % (Auto) % Rhea % (Auto) % Eos % (Auto) % Baso % (Auto) % Neut # (Auto) (1.4-6.5) K/uL Lymph # (Auto) (1.2-3.4) K/uL Rhea # (Auto) (0.24-0.82) K/uL Eos # (Auto) (0-0.50) K/uL Baso # (Auto) (0-0.2) K/uL Immature Gran # (Auto) (0.00-0.02) K/uL PT (9.0-12.0) Seconds INR (0.9-1.1) APTT (21.0-31.0) Seconds PTT Ratio VBG pH 7.34 L (7.36-7.41) VBG pCO2 42 (38-50) mmHg VBG pO2 49 mmHg VBG HCO3 23 mmol/L VBG O2 Saturation 80.2 % VBG Base Excess -3.0 mEq/L Sodium (136-145) mmol/L Potassium (3.5-5.1) mmol/L Chloride (98-107) mmol/L Carbon Dioxide (21-32) mmol/L Anion Gap (3-11) BUN (6-23) mg/dl Creatinine (0.6-1.2) mg/dl Est Cr Clr Drug Dosing ml/min Est GFR ( Amer) ml/min Est GFR (Non-Af Amer) ml/min BUN/Creatinine Ratio (10-20) Glucose (70-99(Fasting)) mg/dl Calcium (8.5-10.1) mg/dl Total Bilirubin (0.2-1.0) mg/dl AST (13-39) U/L ALT (7-52) U/L Alkaline Phosphatase (34-104) U/L Troponin I High Sens (0-14) pg/ml B-Natriuretic Peptide 645 H (0-100) pg/ml Total Protein (6.0-8.3) gm/dl Albumin (3.4-5.0) gm/dl Globulin (2.5-4.0) gm/dl Albumin/Globulin Ratio (0.9-2) SARS-CoV-2 (PCR) NEGATIVE (Negative) Influenza Type A (PCR) Negative (Neg) Influenza Type B (PCR) Negative (Neg) RSV (RT-PCR) Negative (Neg) Administered Medications Discontinued Medications Albuterol (Albut/Ipratrop 3mg/0.5mg Neb 3 Ml Vial) 3 ml NEB NOW STA; Protocol Stop: 05/08/22 05:50 Last Admin: 05/08/22 05:57 Dose: 3 ml Documented By: MABEL Furosemide (Furosemide 40 Mg/4 Ml Vial) 40 mg IV ONE ONE Stop: 05/08/22 05:30 Last Admin: 05/08/22 05:36 Dose: 40 mg Documented By: MABEL Ceftriaxone Sodium (Rocephin) 1,000 mg in 50 mls @ 100 mls/hr IV NOW STA Stop: 05/08/22 06:33 Last Infusion: 05/08/22 06:48 Dose: 0 mls/hr Documented By: Admin: 05/08/22 06:15 Dose: 100 mls/hr Documented By: MABEL Imaging Data Radiologist's Impression: Chest X-Ray 05/08/22 05:08 SINGLE VIEW CHEST CLINICAL HISTORY: Dyspnea FINDINGS: An AP, portable, upright chest radiograph is compared to study dated 10/27/2021. A 2-lead cardiac pacemaker is unchanged in position. The heart is enlarged noting atherosclerotic calcification of the thoracic aorta. There is pulmonary vascular congestion with interstitial edema. There are small pleural effusions with dependent atelectasis. No pneumothorax is seen. The skeletal structures are osteopenic. The bony thorax is grossly intact. IMPRESSION: 1. Cardiomegaly and cardiac pacemaker with evidence of congestive failure and pulmonary edema. 2. Small pleural effusions with dependent atelectasis. 3. Correlate clinically for evidence of a superimposed pneumonia. ACT 112: Negative or not required by law. Electronically signed by: Jaspreet Long M.D. 05/08/2022 6:12 AM Discharge Plan Visit Data Chief Complaint: Shortness of Breath/Dyspnea Stated Complaint: GENERAL ILLNESS/WHEEZING ED Provider: Roberto Yoon Discharge Problem: Hypoxia Patient Disposition: Admitted As Inpatient Forms Stand Alone Forms: My [facility], Virtual Emergency Department, I mportant Visit Information Prescriptions Prescriptions: No Action clopidogrel 75 mg Tablet 75 mg PO QAM Qty: 30 0RF atorvastatin 40 mg Tablet 40 mg PO QPM Qty: 30 0RF escitalopram oxalate 10 mg tablet 10 mg PO PM Eliquis 2.5 mg Tablet 2.5 mg PO BID Qty: 60 1RF metoprolol succinate 25 mg Tablet Extended Release 24 Hr 25 mg PO QAM Qty: 30 1RF allopurinol 100 mg tablet 100 mg PO QAM acetaminophen [Tylenol] 325 mg Capsule 325 mg PO Q6H PRN (Reason: pain/fever) amiodarone 200 mg tablet 200 mg PO QAM albuterol sulfate 90 mcg/actuation Hfa Aerosol Inhaler 2 puff INHALATION QID PRN (Reason: Shortness Of Breath Or Wheezing) ondansetron 4 mg tablet,disintegrating 4 mg PO Q8 PRN (Reason: nausea and vomiting) levothyroxine 100 mcg tablet 100 mcg PO DAILYBB amlodipine [Norvasc] 5 mg Tablet 2.5 mg PO HS Qty: 30 0RF famotidine 10 mg Tablet 10 mg PO DAILY Referrals Referrals: Kasandra Antunez, [Primary Care Provider] -
[2022-05-08] MEDS ORDERED: FUROSEMIDE 40 MG/4 ML VIAL IV ONE (05:29)
[2022-05-08 05:34] LABS: HCO3 VBG 23 mmol/L; Oxygen Saturation VBG 80.2 %; PCO2 VBG 42 mmHg (38-50); PO2 VBG 49 mmHg; pH VBG 7.34 (7.36-7.41)
[2022-05-08 05:37] LABS: Basophils # (auto) 0.09 K/uL (0-0.2); Basophils % (auto) 0.6 %; Eosinophils % (auto) 1.3 %; Hematocrit (blood only) 37.3 % (34.1-44.9); Immature Granulocytes # (auto) 0.07 K/uL (0.00-0.02); Immature Granulocytes % (auto) 0.5 %; Lymphocytes # (auto) 3.05 K/uL (1.2-3.4); Lymphocytes % (auto) 19.9 %; Mean Corpuscular Hemoglobin 33.6 pg (25.0-34.0); Mean Corpuscular Hgb Conc 32.2 g/dL (32.0-36.0); Mean Corpuscular Volume 104.5 fL (80.0-100.0); Mean Platelet Volume 11.2 fL (9.4-12.3); Monocytes # (auto) 1.29 K/uL (0.24-0.82); Monocytes % (auto) 8.4 %; Neutrophils # (auto) 10.61 K/uL (1.4-6.5); Neutrophils % (auto) 69.3 %; Platelet Count 290 K/uL (130-400); RDW Coefficient of Variation 14.1 % (11.5-14.5); RDW Standard Deviation 53.4 fL (36.4-46.3); Red Blood Count 3.57 M/uL (3.93-5.22); White Blood Count 15.31 K/ul (4.8-10.8)
[2022-05-08 05:49] LABS: INR 1.1 (0.9-1.1); Partial Thromboplastin Time 26.9 Seconds (21.0-31.0); Prothrombin Time 11.5 Seconds (9.0-12.0)
[2022-05-08] MEDS ORDERED: ALBUT/IPRATROP 3MG/0.5MG NEB 3 ML VIAL NEB STA (05:49)
[2022-05-08 06:01] LABS: Albumin Globulin Ratio 1.3 (0.9-2); Albumin Level 4.2 gm/dl (3.4-5.0); BUN Creatinine Ratio 13.6 (10-20); Bilirubin,Total 1.2 mg/dl (0.2-1.0); Calcium 9.2 mg/dl (8.5-10.1); Creatinine Clr Calc Pharmacy 26.5 ml/min; Est GFR (Non-African American) 27.6 ml/min; Globulin 3.2 gm/dl (2.5-4.0); Potassium 3.6 mmol/L (3.5-5.1); Total Protein 7.4 gm/dl (6.0-8.3)
[2022-05-08 06:02] LABS: Troponin I High Sensitivity 7.4 pg/ml (0-14)
[2022-05-08] MEDS ORDERED: AZITHROMYCIN 500 MG in DEXTROSE 5% 250 ML IV ONE (06:04)
[2022-05-08] MEDS ORDERED: cefTRIAXone SODIUM 1,000 MG/50 ML BAG IV STA (06:04)
--- NOTE | 2022-05-08 06:13 | XRay Report ---
SINGLE VIEW CHEST CLINICAL HISTORY: Dyspnea FINDINGS: An AP, portable, upright chest radiograph is compared to study dated 10/27/2021. A 2-lead car diac pacemaker is unchanged in position. The heart is enlarged noting atherosclerotic calcification o f the thoracic aorta. There is pulmonary vascular congestion with interstitial edema. There are small pleural effusions with dependent atelectasis. No pneumothorax is seen. The skeletal structures are o steopenic. The bony thorax is grossly intact. IMPRESSION: 1. Cardiomegaly and cardiac pacemaker with evidence of congestive failure and pulmonary edema. 2. Small pleural effusions with dependent atelectasis. 3. Correlate clinically for evidence of a superimposed pneumonia. ACT 112: Negative or not required by law. Electronically signed by: Jaspreet Long M.D. 05/08/2022 6:12 AM
[2022-05-08 06:17] LABS: Influenza A virus by PCR Negative (Neg); Influenza B virus by PCR Negative (Neg); RSV by PCR Negative (Neg); SARS CoV2 RNA(COVID-19) InHosp NEGATIVE (Negative)
[2022-05-08] MEDS ORDERED: POTASSIUM CHLORIDE CRTAB 20 MEQ TABCR PO STA (08:18)
[2022-05-08] MEDS ORDERED: ALBUTEROL HFA 8 GM INHALER INH PRN (08:18)
[2022-05-08] MEDS ORDERED: POLYETHYLENE (MIRALAX) 17 GM PACK PO PRN (08:18)
[2022-05-08] MEDS ORDERED: NITROGLYCERIN SL 0.4 MG/TAB TAB SL PRN (08:18)
[2022-05-08] MEDS ORDERED: ACETAMINOPHEN 325 MG TAB PO PRN (08:18)
[2022-05-08 08:39] LABS: Appearance Urine Clear (Clear); Bacteria Urine Automated Negative (Negative); Bilirubin Urine Negative (Negative); Blood Urine Negative (Negative); Color Urine Yellow; Epithelial Cell Urine Auto 20-30 /lpf (0-5); Glucose Urine UA Negative (Negative); Ketones Urine Negative (Negative); Leukocyte Esterase Urine Negative (Negative); Nitrite Urine Negative (Negative); Protein Urine Trace (Negative); RBC Urine Automated 0-4 /hpf (0-4); Specific Gravity Urine 1.008 (1.000-1.030); Urobilinogen Urine Negative (Negative)
--- NOTE | 2022-05-08 09:16 | History and Physical Report ---
DATE OF ADMISSION: 05/08/2022. CHIEF COMPLAINT: Shortness of breath. HISTORY OF PRESENT ILLNESS: This is a 76-year-old female with past medical history significant for hyperlipidemia, gout, hypothyroidism, prediabetes, history of aspiration pneumonia right lower lobe, history of hypertensive cardiomyopathy, paroxysmal atrial tachycardia, paroxysmal atrial fibrillation, hypertension, chronic ischemic right MCA stroke, chronic systolic CHF, tachybrady syndrome, status post pacemaker, GERD, vitamin D deficiency, chronic kidney disease stage IV, history of endometrial thickening on ultrasound, degenerative disk disease, sensorineural hearing loss, dementia, generalized anxiety disorder, who lives at her house with her son, ambulates without support, presents with shortness of breath. The patient says she started feeling short of breath for few hours. She has had dry cough for 1 day. Denies any fever or chills. Denies any chest pain. Was nauseous, no vomiting, was sweating. Denies any fevers, no headache, vision is okay, no runny nose, no sore throat. Normal bowel and bladder movements.Patient was requiring 8 liters OxyMask to maintain her oxygen saturations. Received Lasix. Currently she says she is feeling better. Speaking in full sentences. When she came in, she was saturating only 80% on room air. ALLERGIES: CODEINE. PAST MEDICAL HISTORY: As mentioned above. PAST SURGICAL HISTORY: Left knee arthroscopy, carpal tunnel surgery, colonoscopy, excision of the lump in the back, repair of ventral hernia, pacemaker insertion, cholecystectomy. MEDICATIONS: The patient is on Tylenol 325 mg p.o. 6 hours p.r.n., albuterol 2 puffs inhalation q.i.d. p.r.n., allopurinol 100 mg p.o. a.m., amiodarone 200 mg p.o. a.m., amlodipine 2.5 mg p.o. at bedtime, atorvastatin 40 mg p.o. p.m., Plavix 75 mg p.o. a.m., Eliquis 2.5 mg p.o. b.i.d., Lexapro 30 mg p.o. a.m., famotidine 20 mg p.o. b.i.d., levothyroxine 100 mcg p.o. daily, metoprolol succinate 25 mg p.o. a.m., Zofran 4 mg p.o. q. 8 hours p.r.n. FAMILY HISTORY: Significant for father has arthritis. Mother has arthritis, uterus cancer, diabetes. Sister has breast cancer, diabetes, hypertension, valvular heart disease, hepatitis C. SOCIAL HISTORY: , no smoking, no alcohol, no drug use. REVIEW OF SYSTEMS: As per HPI. Rest of the review of systems otherwise negative. PHYSICAL EXAMINATION: GENERAL: The patient is obese, not in acute distress. VITAL SIGNS: Temperature 37.2, pulse 64, respiratory rate 18, blood pressure 163/100, oxygen 94% with 8 liters OxyMask. HEENT: Pupils equal, round and reactive to light. Oral mucosa moist. NECK: No JVD, no neck masses. CARDIOVASCULAR: S1 and S2 heard. Regular rate and rhythm. No murmur, no gallop. RESPIRATORY SYSTEM: Normal AP diameter. No accessory muscle use. Bilateral wheezing heard bibasilar crackles. ABDOMEN: Soft, bowel sounds present, nontender, no distention. CENTRAL NERVOUS SYSTEM: Cranial nerves II-XII grossly intact, nonfocal. EXTREMITIES: No edema, no erythema seen. LABORATORY DATA: WBC 15.3, hemoglobin 12, hematocrit 37.3, platelets 298. PT 11.5, INR 1.1, APTT 26.9. Venous blood gas, pH of 7.34, pCO2 of 42, pO2 of 49, bicarbonate 23. Sodium 139, potassium 3.6, chloride 106, CO2 of 21, BUN 24, creatinine 1.76, serum glucose 199, calcium 9.2, total bilirubin 1.2, AST 14, ALT 12, alkaline phosphatase 142. Troponin-I high sensitivity 7.4. BNP 645. SARS-CoV-2 PCR negative. Influenza A and B PCR negative. RSV PCR negative. IMAGING DATA: Chest x-ray: Cardiomegaly and cardiac pacemaker with evidence of CHF and pulmonary edema, small pleural effusion with dependent atelectasis, correlate clinically for evidence of superimposed pneumonia. EKG: Sinus rhythm, first-degree AV block, left bundle-branch block, rate of 73. ASSESSMENT AND PLAN: This 76-year-old female presents with shortness of breath, most likely secondary to [id number] systolic congestive heart failure. 1. Shortness of breath, [id number] systolic congestive heart failure, EF was 40% on the previous echo in 07/2020. Not on any diuretics at home. Received IV Lasix 40 in the ER. We will continue with IV Lasix 40 b.i.d. The patient is also having leukocytosis, questionable underlying superimposed pneumonia. ER gave her Rocephin and azithromycin. Continue with Rocephin and doxycycline. Follow the response. We will follow the cardiac enzymes and echocardiogram. Monitor in the tele and consult Cardiology. Daily weights, I's and O's. Monitor the response. 2. History of paroxysmal atrial tachycardia, paroxysmal atrial fibrillation, on amiodarone and metoprolol succinate and Eliquis. 3. History of hyperlipidemia, on statin. 4. History of hypertension, on amlodipine and metoprolol. We will monitor the blood pressure while on diuretics. 5. History of gout. Continue allopurinol. 6. History of hypothyroidism, on Synthroid. 7. History of chronic ischemic middle cerebral artery stroke on Eliquis, Plavix and statin. 8. Tachybrady syndrome, status post pacemaker. 9. Gastroesophageal reflux disease, on famotidine. 10. Chronic kidney disease stage IV. Present creatinine of 1.76 seems to be around baseline. Getting IV diuretics. Will monitor the kidney function. 11. Depression, generalized anxiety disorder, on Lexapro. 12. The patient has history of aspiration pneumonia. 13.Prediabetes. We will follow HbA1c level and diabetic diet. 14. Deep venous thrombosis prophylaxis: On Eliquis. DISPOSITION: Admit to tele floor. PT/OT prior to discharge. Social service to help with discharge planning. Level 1 full code. Job ID: [id number] [facility]
[2022-05-08] MEDS: METOPROLOL SUCC 25MG EXT REL TAB PO SCH (09:26)
[2022-05-08] MEDS: CLOPIDOGREL BISULFATE 75 MG TAB PO SCH (09:27)
[2022-05-08] MEDS: allopurinoL 100 MG TAB PO SCH (09:27)
[2022-05-08] MEDS: FAMOTIDINE 10 MG TABLET PO SCH (09:27)
[2022-05-08] MEDS: AMIODARONE 200 MG TAB PO SCH (09:27)
[2022-05-08] MEDS: APIXABAN 2.5 MG TAB PO SCH ×2 (09:27→19:55)
[2022-05-08] MEDS: FUROSEMIDE 40 MG/4 ML VIAL IV SCH ×2 (09:28→19:56)
--- NOTE | 2022-05-08 11:55 | Cardiology Consultation ---
Date of Consultation May 08, 2022 Assessment & Plan (1) Acute hypoxemic respiratory failure: (2) Acute systolic (congestive) heart failure: (3) Paroxysmal atrial fibrillation: (4) Tachycardia-bradycardia syndrome: (5) CKD (chronic kidney disease), stage IV: (6) LBBB (left bundle branch block): Plan Patient is a 76-year-old female with complex constellation of issues including hypertensive cardiomyopathy with moderate LV dysfunction, past paroxysmal atrial fibrillation controlled in sinus rhythm amiodarone, pacemaker Patient presents now with acute hypoxic respiratory failure with evidence of congestive heart failure by chest x-ray possible superimposed infection, questi on amiodarone effect Patient has responded to IV diuretics Plan: Continue as ordered with IV diuresis following renal function closely. Echocardiogram will be reviewed Repeat chest x-ray as pulmonary function improves assess for underlying pathology Agree with treatment for possible pneumonia as well Will follow in [place] History of Present Illness Reason for Consultation: Congestive heart failure Requesting Physician: Dr. Maynard Attending Physician: Radha Maynard, DO History of Present Illness Patient is a 76-year-old female with known cardiac history which includes 1. Longstanding hypertension with hypertensive heart disease, nonischemic cardiomyopathy EF 40% with chronic systolic heart failure 2. Chronic left bundle branch block/intraventricular conduction delay 3. Type 2 diabetes mellitus 4. Paroxysmal atrial tachycardia/SVT by prior monitors 5. Left middle cerebral artery distribution CVA, February 2020 with possible recurrent TIA versus worsening dementia May 2020 6. Paroxysmal atrial fibrillation with tachybradycardia syndrome controlled in sinus rhythm with amiodarone begun July 2020 7. 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 CKD stage IV with proteinuria, GLORIA inhibitor intolerant Patient relatively poor historian but notes history of cough intermittently times several months but acute difficulty with worsening dyspnea over the past 4 days ultimately resulting in EMS summoning. Patient noted to be hypoxic with respiratory failure. Patient responded to IV diuretics with Lasix since admission. Chest x-ray with diffuse interstitial edema increased interstitial markings. Currently comfortable and oxygenating well on 4 L nasal cannula. She denies chest pains, tachypalpitations, syncope, near syncope. Feels she has been compliant with medications. Very sedentary about her home. Appetite is generally good. Uncertain if there is been an acute change in weight Telemetry reveals intermittent atrial pacing with left bundle branch block Allergies Allergy/AdvReac Type Severity Reaction Status Date / Time codeine Allergy Intermediate "UNSURE IF Verified 10/23/21 21:54 STILL ALLERGIC" Home Medications Medication Instructions Recorded Confirmed Type acetaminophen 325 mg capsule 325 mg PO Q6H PRN pain/fever 06/11/19 10/23/21 History (Tylenol) allopurinol 100 mg tablet 100 mg PO QAM 06/11/19 10/23/21 History atorvastatin 40 mg tablet 40 mg PO QPM #30 tabs 02/24/20 10/23/21 Rx clopidogrel 75 mg tablet 75 mg PO QAM #30 tabs 02/24/20 10/23/21 Rx escitalopram oxalate 10 mg tablet 10 mg PO PM 08/12/20 10/23/21 History apixaban 2.5 mg tablet (Eliquis) 2.5 mg PO BID #60 tabs 08/17/20 10/23/21 Rx metoprolol succinate 25 mg 25 mg PO QAM #30 tabs 08/17/20 10/23/21 Rx tablet,extended release 24 hr amiodarone 200 mg tablet 200 mg PO QAM 08/03/21 10/23/21 History albuterol sulfate 90 mcg/actuation 2 puff inhalation QID PRN 10/23/21 10/23/21 History aerosol inhaler Shortness Of Breath Or Wheezing levothyroxine 100 mcg tablet 100 mcg PO DAILYBB 10/23/21 10/23/21 History ondansetron 4 mg disintegrating 4 mg PO Q8 PRN nausea and vomiting 10/23/21 0 10/23/21 History tablet amlodipine 5 mg tablet (Norvasc) 2.5 mg PO HS #30 tabs 10/28/21 Rx famotidine 10 mg tablet 10 mg PO DAILY 05/08/22 05/08/22 History Patient History Medical History (Updated 05/08/22 @ 12:15 by Brian Anne MD) Atrial fibrillation CKD (chronic kidney disease) stage 3, GFR 30-59 ml/min Degenerative disc disease, cervical Dyslipidemia MELQUIADES (generalized anxiety disorder) GERD without esophagitis Hearing loss History of adenomatous polyp of colon History of right MCA stroke HTN (hypertension) Hypertensive cardiomegaly Type 2 diabetes mellitus Vitamin D deficiency Surgical History History of arthroplasty of left knee History of carpal tunnel surgery History of cholecystectomy History of D&C History of excision of lesion Back - Dr. Tucker Family History Other Diabetes Heart disease Social History Smoking Status: Former smoker Second Hand Exposure: No; Hx Alcohol Use: No Hx Substance Use: No Preferred Language: Italian Communication Ability: Effective Hearing Ability: Hard of Hearing Developing Machine Tender Required: No Beliefs That Will Affect Care: None marital status: / Current Living Situation: Alone Current Living Situation Comment: Son Rajeev comes and goes. Other Information That Helps Us Care for You: No Feels Safe at Home: Yes Safety Concerns: Feels Safe At This Time Assistive Devices: None Review of Systems Review of Systems: All systems reviewed & are unremarkable except as noted in HPI & below Physical Exam Constitutional: WD/WN, vitals as above + obese; no acute distress Eyes: PERRL, conjunctivae normal, anicteric sclerae ENMT: external ear and nose normal, oropharynx normal Neck: trachea midline, no thyromegaly Respiratory: Auscultation: + diminished lung sounds and + rales Cardiovascular: Rate/Rhythm: regular rate and regular rhythm Vessels: no JVD Extremities: + edema Chest (Breasts): Chest: + pacemaker Gastrointestinal (Abdomen): normal bowel sounds, soft, nontender, no hepatosplenomegaly Musculoskeletal: no cyanosis or clubbing, extremities motor strength 5/5 Results & Data ([facility] Vital Signs (Past 12 Hours) Vital Signs Temp Pulse Pulse Resp BP BP Pulse Ox 05/08/22 11:31 36.5 C 64 19 100/65 95 05/08/22 07:55 05/08/22 07:55 36.5 C 68 20 145/77 H 94 05/08/22 07:51 64 23 160/96 H 97 05/08/22 07:00 64 22 95 05/08/22 05:08 94 05/08/22 06:20 64 18 163/100 H 94 05/08/22 05:21 80 L 05/08/22 05:26 37.2 C 85 20 159/88 H 94 O2 Del Method O2 Flow Rate 05/08/22 11:31 Nasal Cannula 4 05/08/22 07:55 Oxymask 7 05/08/22 07:55 Oxymask 7 05/08/22 07:51 Oxymask 8 05/08/22 07:00 Oxymask 8 05/08/22 05:08 Oxymask 8 05/08/22 06:20 Oxymask 8 05/08/22 05:21 Oxymask 0 05/08/22 05:26 Oxymask 10 Laboratory Results Laboratory Results - last 24 hr 05/08/22 05/08/22 05/08/22 05:17 05:17 05:17 WBC 15.31 H RBC 3.57 L Hgb 12.0 Hct 37.3 MCV 104.5 H MCH 33.6 MCHC 32.2 RDW Std Deviation 53.4 H RDW Coeff of [place]ta 14.1 Plt Count 290 MPV 11.2 Immature Gran % (Auto) 0.5 Neut % (Auto) 69.3 Lymph % (Auto) 19.9 [place] % (Auto) 8.4 Eos % (Auto) 1.3 Baso % (Auto) 0.6 Neut # (Auto) 10.61 H Lymph # (Auto) 3.05 [place] # (Auto) 1.29 H Eos # (Auto) 0.20 Baso # (Auto) 0.09 Immature Gran # (Auto) 0.07 H PT 11.5 INR 1.1 APTT 26.9 PTT Ratio 1.0 VBG pH VBG pCO2 VBG pO2 VBG HCO3 VBG O2 Saturation VBG Base Excess Sodium 139 Potassium 3.6 Chloride 106 Carbon Dioxide 21 Anion Gap 12 H BUN 24 H Creatinine 1.76 H Est Cr Clr Drug Dosing 26.5 Est GFR ( Amer) 32.0 Est GFR (Non-Af Amer) 27.6 BUN/Creatinine Ratio 13.6 Glucose 199 H POC Glucose Calcium 9.2 Total Bilirubin 1.2 H AST 14 ALT 12 Alkaline Phosphatase 142 H Troponin I High Sens 7.4 B-Natriuretic Peptide Total Protein 7.4 Albumin 4.2 Globulin 3.2 Albumin/Globulin Ratio 1.3 Urine Color Urine Appearance Urine pH Ur Specific [place] Urine Protein Urine Glucose (UA) Urine Ketones Urine Blood Urine Nitrite Urine Bilirubin Urine Urobilinogen Ur Leukocyte Esterase Urine WBC (Auto) Urine RBC (Auto) U Hyaline Cast (Auto) U Epithel Cells (Auto) Urine Bacteria (Auto) SARS-CoV-2 (PCR) Influenza Type A (PCR) Influenza Type B (PCR) RSV (RT-PCR) 05/08/22 05/08/22 05/08/22 05:17 05:17 05:25 WBC RBC Hgb Hct MCV MCH MCHC RDW Std Deviation RDW Coeff of [place] Plt Count MPV Immature Gran % (Auto) Neut % (Auto) Lymph % (Auto) [place] % (Auto) Eos % (Auto) Baso % (Auto) Neut # (Auto) Lymph # (Auto) [place] # (Auto) Eos # (Auto) Baso # (Auto) Immature Gran # (Auto) PT INR APTT PTT Ratio VBG pH 7.34 L VBG pCO2 42 VBG pO2 49 VBG HCO3 23 VBG O2 Saturation 80.2 VBG Base Excess -3.0 Sodium Potassium Chloride Carbon Dioxide Anion Gap BUN Creatinine Est Cr Clr Drug Dosing Est GFR ( Amer) Est GFR (Non-Af Amer) BUN/Creatinine Ratio Glucose POC Glucose Calcium Total Bilirubin AST ALT Alkaline Phosphatase Troponin I High Sens B-Natriuretic Peptide 645 H Total Protein Albumin Globulin Albumin/Globulin Ratio Urine Color Urine Appearance Urine pH Ur Specific [place] Urine Protein Urine Glucose (UA) Urine Ketones Urine Blood Urine Nitrite Urine Bilirubin Urine Urobilinogen Ur Leukocyte Esterase Urine WBC (Auto) Urine RBC (Auto) U Hyaline Cast (Auto) U Epithel Cells (Auto) Urine Bacteria (Auto) SARS-CoV-2 (PCR) NEGATIVE Influenza Type A (PCR) Negative Influenza Type B (PCR) Negative RSV (RT-PCR) Negative 05/08/22 05/08/22 05/08/22 07:50 08:04 08:42 WBC RBC Hgb Hct MCV MCH MCHC RDW Std Deviation RDW Coeff of [place] Plt Count MPV Immature Gran % (Auto) Neut % (Auto) Lymph % (Auto) [place] % (Auto) Eos % (Auto) Baso % (Auto) Neut # (Auto) Lymph # (Auto) [place] # (Auto) Eos # (Auto) Baso # (Auto) Immature Gran # (Auto) PT INR APTT PTT Ratio VBG pH VBG pCO2 VBG pO2 VBG HCO3 VBG O2 Saturation VBG Base Excess Sodium Potassium Chloride Carbon Dioxide Anion Gap BUN Creatinine Est Cr Clr Drug Dosing Est GFR ( Amer) Est GFR (Non-Af Amer) BUN/Creatinine Ratio Glucose POC Glucose 158 H Calcium Total Bilirubin AST ALT Alkaline Phosphatase Troponin I High Sens 10.2 B-Natriuretic Peptide Total Protein Albumin Globulin Albumin/Globulin Ratio Urine Color Yellow Urine Appearance Clear Urine pH 5.0 Ur Specific [place] 1.008 Urine Protein Trace H Urine Glucose (UA) Negative Urine Ketones Negative Urine Blood Negative Urine Nitrite Negative Urine Bilirubin Negative Urine Urobilinogen Negative Ur Leukocyte Esterase Negative Urine WBC (Auto) 1-5 Urine RBC (Auto) 0-4 U Hyaline Cast (Auto) 1-5 U Epithel Cells (Auto) 20-30 H Urine Bacteria (Auto) Negative SARS-CoV-2 (PCR) Influenza Type A (PCR) Influenza Type B (PCR) RSV (RT-PCR) 05/08/22 11:29 WBC RBC Hgb Hct MCV MCH MCHC RDW Std Deviation RDW Coeff of [place] Plt Count MPV Immature Gran % (Auto) Neut % (Auto) Lymph % (Auto) [place] % (Auto) Eos % (Auto) Baso % (Auto) Neut # (Auto) Lymph # (Auto) [place] # (Auto) Eos # (Auto) Baso # (Auto) Immature Gran # (Auto) PT INR APTT PTT Ratio VBG pH VBG pCO2 VBG pO2 VBG HCO3 VBG O2 Saturation VBG Base Excess Sodium Potassium Chloride Carbon Dioxide Anion Gap BUN Creatinine Est Cr Clr Drug Dosing Est GFR ( Amer) Est GFR (Non-Af Amer) BUN/Creatinine Ratio Glucose POC Glucose 176 H Calcium Total Bilirubin AST ALT Alkaline Phosphatase Troponin I High Sens B-Natriuretic Peptide Total Protein Albumin Globulin Albumin/Globulin Ratio Urine Color Urine Appearance Urine pH Ur Specific [place] Urine Protein Urine Glucose (UA) Urine Ketones Urine Blood Urine Nitrite Urine Bilirubin Urine Urobilinogen Ur Leukocyte Esterase Urine WBC (Auto) Urine RBC (Auto) U Hyaline Cast (Auto) U Epithel Cells (Auto) Urine Bacteria (Auto) SARS-CoV-2 (PCR) Influenza Type A (PCR) Influenza Type B (PCR) RSV (RT-PCR) ECG Additional Comments: 08-MAY-2022 05:13:06 [facility]-EDSTAT ROUTINE RETRIEVAL Sinus rhythm with 1st degree A-V block Left axis deviation Left bundle branch block Abnormal ECG When compared with ECG of 23-OCT-2021 19:01, Sinus rhythm has replaced Electronic atrial pacemaker
--- NOTE | 2022-05-08 12:55 | Electrocardiogram Report ---
Test Reason : Blood Pressure : / mmHG Vent. Rate : 073 BPM Atrial Rate : 073 BPM P-R Int : 224 ms QRS Dur : 152 ms QT Int : 454 ms P-R-T Axes : 043 -47 086 degrees QTc Int : 500 ms Sinus rhythm with 1st degree A-V block Left axis deviation Left bundle branch block Abnormal ECG When compared with ECG of 23-OCT-2021 19:01, Sinus rhythm has replaced Electronic atrial pacemaker Confirmed by Sandeep Gooden ([id number]) on 05/08/2022 12:55:31 PM Referred By: REFERRED SELF Confirmed By:Sandeep Gooden
--- NOTE | 2022-05-08 15:35 | Hospitalist Progress Note ---
Date of Service May 08, 2022 Assessment & Plan (1) Acute hypoxemic respiratory failure: Plan: Secondary to acute on chronic systolic heart failure versus pneumonia given elevated white blood cell count, and shortness of breath with cough. Continues to remain comfortable at 95% oxygen saturation on 4 L/min via nasal cannula. (2) Acute systolic (congestive) heart failure: Plan: Cardiology has been consulted. Continue Lasix 40 mg IV twice daily. First dose of Lasix given at 5 AM this morning, second dose at 0900. Monitor on telemetry, monitor electrolytes daily, strict ins and outs, low-salt diet, daily weights. (3) Pneumonia: Plan: Possible presents given leukocytosis and ongoing cough. Chest x-ray findings consistent with this. Continue with Rocephin and doxycycline pending clinical improvement and negative culture results. (4) CKD (chronic kidney disease), stage IV: Plan: Chronic, stable, creatinine at baseline 1.8. Continue to renally dose medications as needed and avoid nephrotoxic substances. (5) Paroxysmal atrial fibrillation: Plan: Currently in sinus rhythm, continue amiodarone and Eliquis per home regimen. Also on Toprol-XL 25 mg p.o. every morning. (6) Type 2 diabetes mellitus: Plan: Diet controlled, not on diabetic medication at home. (7) HTN (hypertension): Plan: Chronic, at goal, continue current medical therapy. (8) DVT prophylaxis: Plan: Eliquis Full code Disposition-Home pending PT/OT recommendations, and clinical improvement. Radha Maynard DO [facility] Hospitalist Admission and Anticipated Discharge Date Admission Date: May 08, 2022 Subjective 76-year-old female presents with acute hypoxic respiratory failure with evidence of CHF by chest x-ray. She reports an ongoing cough for the past 3 to 5 days She reports waking up overnight with sweats and felt bad and short of breath Today she feels slightly better but is only been admitted for just a few hours. She is normally not on oxygen at home She denies any other UTI symptoms, diarrhea, abdominal pain, chest pain or other issues at this time. Review of Systems Review of Systems: All systems reviewed negative except as indicated above. Physical Exam Physical Exam: CONSTITUTIONAL: WNWD, vitals as above, generally well- appearing, NAD EYES: normal conjunctivae, no scleral icterus ENT: external ear and nose normal, MMM NECK: trachea midline, RESPIRATORY: diminished breath sounds on auscultation, no crackles, rales or wheezes, normal respiratory effort on supplemented oxygen CARDIOVASCULAR: regular rate and rhythm, S1 and 2 heard without murmurs, gallops or rubs, no JVD, no peripheral edema CHEST: inspection of chest was normal GASTROINTESTINAL: soft, nontender, ND, no guarding MUSCULOSKELETAL: generalized weakness, no gross focal deficits. Head is normocephalic and atraumatic SKIN: warm and dry NEUROLOGIC: CN 2-12 grossly intact, no sensory deficit, normal cognition, normal speech, no tremor PSYCHIATRIC: alert cooperative and oriented to person, place and time. Euthymic mood, makes good eye contact, language grossly intact, recent and re mote memory grossly intact. Results & Data Results & Data ([facility]) Vital Signs (Past 12 Hours) Vital Signs Temp Pulse Pulse Resp BP BP Pulse Ox 05/08/22 08:08 66 05/08/22 11:31 36.5 C 64 19 100/65 95 05/08/22 07:55 05/08/22 07:55 36.5 C 68 20 145/77 H 94 05/08/22 07:51 64 23 160/96 H 97 05/08/22 07:00 64 22 95 05/08/22 05:08 94 05/08/22 06:20 64 18 163/100 H 94 05/08/22 05:21 80 L 05/08/22 05:26 37.2 C 85 20 159/88 H 94 O2 Del Method O2 Flow Rate 05/08/22 08:08 05/08/22 11:31 Nasal Cannula 4 05/08/22 07:55 Oxymask 7 05/08/22 07:55 Oxymask 7 05/08/22 07:51 Oxymask 8 05/08/22 07:00 Oxymask 8 05/08/22 05:08 Oxymask 8 05/08/22 06:20 Oxymask 8 05/08/22 05:21 Oxymask 0 05/08/22 05:26 Oxymask 10 Laboratory Results Short CBC 05/08/22 Range/Units 05:17 WBC 15.31 H (4.8-10.8) K/ul Hgb 12.0 (12.0-16.0) g/dl Hct 37.3 (34.1-44.9) % Plt Count 290 (130-400) K/uL BMP 05/08/22 05:17 Sodium 139 Potassium 3.6 Chloride 106 Carbon Dioxide 21 BUN 24 H Creatinine 1.76 H Glucose 199 H Calcium 9.2 Liver Function 05/08/22 Range/Units 05:17 Total Bilirubin 1.2 H (0.2-1.0) mg/dl AST 14 (13-39) U/L ALT 12 (7-52) U/L Alkaline Phosphatase 142 H (34-104) U/L Albumin 4.2 (3.4-5.0) gm/dl Urine 05/08/22 Range/Units 07:50 Urine Color Yellow Urine Appearance Clear (Clear) Urine pH 5.0 (4.5-7.5) Ur Specific [place] 1.008 (1.000-1.030) Urine Protein Trace H (Negative) Urine Glucose (UA) Negative (Negative) Diagnostic Findings Chest X-Ray 05/08/22 05:08 SINGLE VIEW CHEST CLINICAL HISTORY: Dyspnea FINDINGS: An AP, portable, upright chest radiograph is compared to study dated 10/27/2021. A 2-lead cardiac pacemaker is unchanged in position. The heart is enlarged noting atherosclerotic calcification of the thoracic aorta. There is pulmonary vascular congestion with interstitial edema. There are small pleural effusions with dependent atelectasis. No pneumothorax is seen. The skeletal structures are osteopenic. The bony thorax is grossly intact. IMPRESSION: 1. Cardiomegaly and cardiac pacemaker with evidence of congestive failure and pulmonary edema. 2. Small pleural effusions with dependent atelectasis. 3. Correlate clinically for evidence of a superimposed pneumonia. ACT 112: Negative or not required by law. Electronically signed by: Jsapreet Long M.D. 05/08/2022 6:12 AM Medications Administered Current Inpatient Medications Acetaminophen (Acetaminophen 325 Mg Tab) 650 mg PO Q4H PRN PRN Reason: Pain or Fever Stop: 06/07/22 08:17 Albuterol (Albuterol Hfa 8 Gm Inhaler) 2 puffs INH QID PRN PRN Reason: Shortness Of Breath Or Wheezing Stop: 06/07/22 08:17 Allopurinol (Allopurinol 100 Mg Tab) [facility] Stop: 06/07/22 08:59 Last Admin: 05/08/22 09:27 Dose: 100 mg Amiodarone HCl (Amiodarone 200 Mg Tab) 200 mg PO QAM [facility] Stop: 06/07/22 08:59 Last Admin: 05/08/22 09:27 Dose: 200 mg Amlodipine Besylate (Amlodipine Besylate 5 Mg Tab) 2.5 mg PO HS [facility] Stop: 06/07/22 20:59 Apixaban (Apixaban 2.5 Mg Tab) 2.5 mg PO BID [facility] Stop: 06/07/22 08:59 Last Admin: 05/08/22 09:27 Dose: 2.5 mg Atorvastatin Calcium (Atorvastatin 40 Mg Tab) 40 mg PO QPM [facility] Stop: 06/07/22 20:59 Clopidogrel Bisulfate (Clopidogrel Bisulfate 75 Mg Tab) 75 mg PO QAM [facility] Stop: 06/07/22 08:59 Last Admin: 05/08/22 09:27 Dose: 75 mg Doxycycline Hyclate (Doxycycline Hyclate 100 Mg Cap) 100 mg PO BID [facility] Stop: 05/16/22 08:59 Escitalopram Oxalate (Escitalopram Oxalate 10 Mg Tab) 10 mg PO PM [facility] Stop: 06/07/22 20:59 Famotidine (Famotidine 10 Mg Tablet) 10 mg PO DAILY [facility] Stop: 06/07/22 08:59 Last Admin: 05/08/22 09:27 Dose: 10 mg Furosemide (Furosemide 40 Mg/4 Ml Vial) 40 mg IV BID [facility] Stop: 06/07/22 08:59 Last Admin: 05/08/22 09:28 Dose: 40 mg Ceftriaxone Sodium 2,000 mg/ (Dextrose) 70 mls @ 100 mls/hr IV Q24H [facility]; Protocol Stop: 05/14/22 06:41 Levothyroxine Sodium (Levothyroxine Sodium 100 Mcg Tablet) 100 mcg PO DAILYBB [facility] Stop: 06/08/22 06:29 Metoprolol Succinate (Metoprolol Succ 25mg Ext Rel Tab) 25 mg PO QAM [facility] Stop: 06/07/22 08:59 Last Admin: 05/08/22 09:26 Dose: 25 mg Nitroglycerin (Nitroglycerin Sl 0.4 Mg/Tab Tab) 0.4 mg SL UD PRN PRN Reason: Chest Pain Stop: 06/07/22 08:17 Polyethylene Glycol (Polyethylene (Miralax) 17 Gm Pack) 17 gm PO DAILY PRN PRN Reason: Constipation Stop: 06/07/22 08:17 (1) Type 2 diabetes mellitus Diabetes mellitus intermediate insulin use: without computer terminal operator use Diabetes mellitus complication status: with kidney complications Diabetes mellitus complication detail: with chronic kidney disease Chronic kidney disease stage: stage 3 (moderate) Qualified Code(s): 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 (2) HTN (hypertension) 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 type: essential hypertension Qualified Code(s): I10 - Essential (primary) hypertension
[2022-05-08] MEDS: ATORVASTATIN 40 MG TAB PO SCH (19:54)
[2022-05-08] MEDS: ESCITALOPRAM OXALATE 10 MG TAB PO SCH (19:55)
[2022-05-08] MEDS ORDERED: amLODIPine BESYLATE 5 MG TAB PO SCH (21:00)
[2022-05-09 05:46] LABS: Basophils # (auto) 0.07 K/uL (0-0.2); Eosinophils # (auto) 0.25 K/uL (0-0.50); Eosinophils % (auto) 3.5 %; Hematocrit (blood only) 35.5 % (34.1-44.9); Hemoglobin 11.7 g/dl (12.0-16.0); Immature Granulocytes # (auto) 0.01 K/uL (0.00-0.02); Immature Granulocytes % (auto) 0.1 %; Lymphocytes # (auto) 1.96 K/uL (1.2-3.4); Lymphocytes % (auto) 27.5 %; Mean Corpuscular Hemoglobin 33.9 pg (25.0-34.0); Mean Corpuscular Volume 102.9 fL (80.0-100.0); Mean Platelet Volume 10.9 fL (9.4-12.3); Monocytes # (auto) 1.06 K/uL (0.24-0.82); Monocytes % (auto) 14.8 %; Neutrophils # (auto) 3.79 K/uL (1.4-6.5); Neutrophils % (auto) 53.1 %; Platelet Count 241 K/uL (130-400); Red Blood Count 3.45 M/uL (3.93-5.22); White Blood Count 7.14 K/ul (4.8-10.8)
[2022-05-09 06:08] LABS: Creatinine Clr Calc Pharmacy 19.4 ml/min; Est GFR (Non-African American) 19.9 ml/min; Magnesium 1.7 mg/dl (1.7-2.4); Potassium 3.5 mmol/L (3.5-5.1)
[2022-05-09] MEDS: LEVOTHYROXINE SODIUM 100 MCG TABLET PO SCH (06:17)
[2022-05-09] MEDS: cefTRIAXone SODIUM 2,000 MG in DEXTROSE 5% 50 ML IV SCH (06:17)
[2022-05-09] MEDS ORDERED: Nursing to Pharmacy Communication SCH (07:15)
[2022-05-09] MEDS: FUROSEMIDE 40 MG/4 ML VIAL IV SCH ×2 (07:17→20:13)
[2022-05-09 07:45] LABS: Estimated Average Glucose 131 mg/dl; Hemoglobin A1C 6.2 % (4.5-5.6)
[2022-05-09] MEDS: allopurinoL 100 MG TAB PO SCH (08:07)
[2022-05-09] MEDS: FAMOTIDINE 10 MG TABLET PO SCH (08:07)
[2022-05-09] MEDS: CLOPIDOGREL BISULFATE 75 MG TAB PO SCH (08:07)
[2022-05-09] MEDS: DOXYCYCLINE HYCLATE 100 MG CAP PO SCH ×2 (08:07→20:12)
[2022-05-09] MEDS: APIXABAN 2.5 MG TAB PO SCH ×2 (08:07→20:13)
[2022-05-09] MEDS: METOPROLOL SUCC 25MG EXT REL TAB PO SCH (08:08)
[2022-05-09] MEDS: AMIODARONE 200 MG TAB PO SCH (08:08)
--- NOTE | 2022-05-09 09:21 | Cardiology Progress Note ---
Date of Service May 09, 2022 Assessment & Plan (1) Pneumonia: (2) CKD (chronic kidney disease), stage IV: (3) Tachycardia-bradycardia syndrome: (4) Acute systolic (congestive) heart failure: (5) Paroxysmal atrial fibrillation: (6) Acute hypoxemic respiratory failure: Plan Complex 76 year old female admitted with mixed respiratory distress, possible aspiration, acute decompensated systolic congestive heart failure. Resting echocardiography this admission revealed worsening systolic dysfunction, EF 20- 25%. Volume status has promptly improved following IV diuresis. Atrial arrhythmias are well controlled on review of patient's recent device interrogation as well as inpatient telemetry monitoring. RECOMMENDATIONS: Check follow-up chest x-ray Hold further IV diuresis. Supplement potassium orally. ACEI/ARB/Entresto/Spironolactone appear contraindicated. Discontinue amlodipine, adding nitrates followed by hydralazine as blood pressure permits. Continue evidence based beta-rizwan therapy, amiodarone, renally doses Apixaban, clopidogrel, and moderate intensity statin therapy (atorvastatin 40 mg/day) Admission and Anticipated Discharge Date Admission Date: May 08, 2022 Supervising Physician Co-Signing Physician Notes Patient was seen and examined. Overall signs and symptoms of congestive heart failure have improved with echocardiogram reflecting diffuse cardiomyopathy, diminished LV systolic function. Plan as outlined above continue medical therapies although relatively low blood pressures may limit intervention. Goal will be to add nitrates and hydralazine for afterload reduction and add routine diuretic to oral regimen Subjective Patient seen and examined. Chart, medications, and telemetry reviewed. Feeling better. Less shortness of breath. Less wheezing, no longer able to hear it. Patient notably quite hard of hearing. No chest pain. No palpitations. No orthopnea or PND. No dizziness or near syncope. Telemetry: Atrial paced in the 60's. May 08, 2022 TTE Interpretation Summary ([facility], Dr. Anne): Borderline dilated LV. Normal LV wall thickness. Severe global hypokinesis of the LV. EF 20-25%. Moderately dilated left atrium. Mild aortic valve sclerosis without stenosis. Mildly thickened mitral valve leaflets with mild to moderate mitral regurgitation. RVSP 30-40 mmHg. Physical Exam Physical Exam: General: A&Ox3. NAD. Hard of hearing. Laying flat. HEENT: Normocephalic. Atraumatic. Eyes: PER. Conjunctiva pink, sclera clear. Neck: No JVD. No carotid bruits. No HJR. Heart: Regular, paced, at 60 bpm. Soft systolic murmur. No rub. PMI is nondisplaced. Lungs: Diffuse expiratory wheezing. Bibasilar rales/rhonchi. Abdomen: +BS. Soft. Nontender. No masses or organomegaly. Extremities: Minimal edema. No clubbing. No cyanosis. Limited neurological examination is without focal deficits. Pulses: radial=2/4, posterior tibial=1/4. Results & Data ([facility]) Vital Signs (Past 12 Hours) Vital Signs Temp Pulse Pulse Resp BP Pulse Ox O2 Del Method 05/09/22 08:00 Nasal Cannula 05/09/22 07:18 62 05/09/22 06:57 36.8 C 70 19 116/69 96 Nasal Cannula 05/09/22 03:20 36.8 C 64 18 104/62 95 05/08/22 23:00 36.8 C 58 L 18 108/67 98 Nasal Cannula O2 Flow Rate 05/09/22 08:00 2 05/09/22 07:18 05/09/22 06:57 4 05/09/22 03:20 05/08/22 23:00 Laboratory Results Laboratory Results - last 24 hr 05/08/22 05/08/22 05/08/22 08:42 11:29 14:22 WBC RBC Hgb Hct MCV MCH MCHC RDW Std Deviation RDW Coeff of Etta Plt Count MPV Immature Gran % (Auto) Neut % (Auto) Lymph % (Auto) [place] % (Auto) Eos % (Auto) Baso % (Auto) Neut # (Auto) Lymph # (Auto) [place] # (Auto) Eos # (Auto) Baso # (Auto) Immature Gran # (Auto) Sodium Potassium Chloride Carbon Dioxide Anion Gap BUN Creatinine Est Cr Clr Drug Dosing Est GFR ( Amer) Est GFR (Non-Af Amer) BUN/Creatinine Ratio Glucose POC Glucose 176 H Estimat Average Glucose Hemoglobin A1c Calcium Magnesium Troponin I High Sens 10.2 12.1 05/08/22 05/08/22 05/09/22 16:17 19:48 05:31 WBC 7.14 RBC 3.45 L Hgb 11.7 L Hct 35.5 MCV 102.9 H MCH 33.9 MCHC 33.0 RDW Std Deviation 53.0 H RDW Coeff of Etta 14.0 Plt Count 241 MPV 10.9 Immature Gran % (Auto) 0.1 Neut % (Auto) 53.1 Lymph % (Auto) 27.5 [place] % (Auto) 14.8 Eos % (Auto) 3.5 Baso % (Auto) 1.0 Neut # (Auto) 3.79 Lymph # (Auto) 1.96 [place] # (Auto) 1.06 H Eos # (Auto) 0.25 Baso # (Auto) 0.07 Immature Gran # (Auto) 0.01 Sodium Potassium Chloride Carbon Dioxide Anion Gap BUN Creatinine Est Cr Clr Drug Dosing Est GFR ( Amer) Est GFR (Non-Af Amer) BUN/Creatinine Ratio Glucose POC Glucose 96 Estimat Average Glucose Hemoglobin A1c Calcium Magnesium Troponin I High Sens 11.8 05/09/22 05/09/22 05:31 05:31 WBC RBC Hgb Hct MCV MCH MCHC RDW Std Deviation RDW Coeff of Etta Plt Count MPV Immature Gran % (Auto) Neut % (Auto) Lymph % (Auto) [place] % (Auto) Eos % (Auto) Baso % (Auto) Neut # (Auto) Lymph # (Auto) [place] # (Auto) Eos # (Auto) Baso # (Auto) Immature Gran # (Auto) Sodium 139 Potassium 3.5 Chloride 102 Carbon Dioxide 26 Anion Gap 11 BUN 30 H Creatinine 2.31 H D Est Cr Clr Drug Dosing 19.4 Est GFR ( Amer) 23.0 Est GFR (Non-Af Amer) 19.9 BUN/Creatinine Ratio 13.0 Glucose 105 H POC Glucose Estimat Average Glucose 131 Hemoglobin A1c 6.2 H Calcium 9.0 Magnesium 1.7 Troponin I High Sens
[2022-05-09] MEDS: ISOSORBIDE MONO EXTENDED REL 30 MG TABCR PO SCH (10:38)
--- NOTE | 2022-05-09 10:40 | XRay Report ---
XR chest 1V portable HISTORY: Shortness of breath. Congestive heart failure. COMPARISON: Chest 05/08/2022. FINDINGS: No pneumothorax. The heart remains borderline enlarged. Is left-sided dual-chamber pacemake r. Mild interstitial pulmonary edema and a small bilateral pleural effusions have improved. IMPRESSION: Interval improvement in the mild interstitial pulmonary edema and small bilateral pleural effusions. ACT 112: Negative or not required by law. Electronically signed by: Alex Rouse M.D. 05/09/2022 10:39 AM
--- NOTE | 2022-05-09 11:26 | Hospitalist Progress Note ---
Date of Service May 09, 2022 Assessment & Plan (1) Acute hypoxemic respiratory failure: Plan: Secondary to acute on chronic systolic heart failure versus pneumonia given elevated white blood cell count, and shortness of breath with cough. Continues to remain comfortable at 95% oxygen saturation on 2 L/min via nasal cannula. Noted decreasing oxygen needs with treatment. Encouraged to ambulate as tolerated. (2) Acute systolic (congestive) heart failure: Plan: Cardiology has been consulted. Given IV Lasix which was held given elevation in creatinine. Monitor on telemetry, monitor electrolytes daily, strict ins and outs, low-salt diet, daily weights. (3) Pneumonia: Plan: Possible presents given leukocytosis and ongoing cough. Chest x-ray findings consistent with this. Rocephin changed to amoxicillin and cont doxycycline to complete the course. (4) CKD (chronic kidney disease), stage IV: Plan: Chronic, stable, creatinine elevated to 2.3 with baseline 1.8. Continue to renally dose medications as needed and avoid nephrotoxic substances. Hold Lasix. (5) Paroxysmal atrial fibrillation: Plan: Currently in sinus rhythm, continue amiodarone and Eliquis per home regimen. Also on Toprol-XL 25 mg p.o. every morning. (6) Type 2 diabetes mellitus: Plan: Diet controlled, not on diabetic medication at home. (7) HTN (hypertension): Plan: Chronic, at goal, continue current medical therapy. (8) DVT prophylaxis: Plan: Eliquis Full code Disposition-Home pending PT/OT recommendations, and clinical improvement. Rad[facility]ard [facility] and Anticipated Discharge Date Admission Date: May 08, 2022 Subjective 76-year-old female presents with acute hypoxic respiratory failure with evidence of CHF by chest x-ray. Cough is improved, SOB improved. Patient feels improved clinically Oxygen needs are decreasing but still present She denies any other UTI symptoms, diarrhea, abdominal pain, chest pain or other issues at this time. Review of Systems Review of Systems: All systems reviewed negative except as indicated above. Physical Exam Physical Exam: CONSTITUTIONAL: WNWD, vitals as above, generally well- appearing, NAD EYES: normal conjunctivae, no scleral icterus ENT: external ear and nose normal, MMM NECK: trachea midline, RESPIRATORY: diminished breath sounds on auscultation but improved since yesterday, no crackles, rales or wheezes, normal respiratory effort on supplemented oxygen CARDIOVASCULAR: regular rate and rhythm, S1 and 2 heard without murmurs, gallops or rubs, no JVD, no peripheral edema CHEST: inspection of chest was normal GASTROINTESTINAL: soft, nontender, ND, no guarding MUSCULOSKELETAL: generalized weakness, no gross focal deficits. Head is normocephalic and atraumatic SKIN: warm and dry NEUROLOGIC: CN 2-12 grossly intact, no sensory deficit, normal cognition, normal speech, no tremor PSYCHIATRIC: alert cooperative and oriented to person, place and time. Euthymic mood, makes good eye contact, language grossly intact, recent and remote memory grossly intact. Results & Data Results & Data ([facility]) Vital Signs (Past 12 Hours) Vital Signs Temp Pulse Pulse Resp BP Pulse Ox O2 Del Method 05/09/22 11:05 36.4 C L 61 18 98/58 L 97 Nasal Cannula 05/09/22 08:00 Nasal Cannula 05/09/22 07:18 62 05/09/22 06:57 36.8 C 70 19 116/69 96 Nasal Cannula 05/09/22 03:20 36.8 C 64 18 104/62 95 O2 Flow Rate 05/09/22 11:05 2 05/09/22 08:00 2 05/09/22 07:18 05/09/22 06:57 4 05/09/22 03:20 Laboratory Results Short CBC 05/09/22 Range/Units 05:31 WBC 7.14 (4.8-10.8) K/ul Hgb 11.7 L (12.0-16.0) g/dl Hct 35.5 (34.1-44.9) % Plt Count 241 (130-400) K/uL [facility] 05/09/22 05:31 Sodium 139 Potassium 3.5 Chloride 102 Carbon Dioxide 26 BUN 30 H Creatinine 2.31 H D Glucose 105 H Calcium 9.0 Diagnostic Findings Chest X-Ray 05/09/22 09:12 XR chest 1V portable HISTORY: Shortness of breath. Congestive heart failure. COMPARISON: Chest 05/08/2022. FINDINGS: No pneumothorax. The heart remains borderline enlarged. Is left-sided dual-chamber pacemaker. Mild interstitial pulmonary edema and a small bilateral pleural effusions have improved. IMPRESSION: Interval improvement in the mild interstitial pulmonary edema and small bilateral pleural effusions. ACT 112: Negative or not required by law. Electronically signed by: Alex Rouse M.D. 05/09/2022 10:39 AM Medications Administered Current Inpatient Medications Acetaminophen (Acetaminophen 325 Mg Tab) 650 mg PO Q4H PRN PRN Reason: Pain or Fever Stop: 06/07/22 08:17 Albuterol (Albuterol Hfa 8 Gm Inhaler) 2 puffs INH QID PRN PRN Reason: Shortness Of Breath Or Wheezing Stop: 06/07/22 08:17 Allopurinol (Allopurinol 100 Mg Tab) 100 mg PO QAM ALYSSA Stop: 06/07/22 08:59 Last Admin: 05/09/22 08:07 Dose: 100 mg Amiodarone HCl (Amiodarone 200 Mg Tab) 200 mg PO QAM ALYSSA Stop: 06/07/22 08:59 Last Admin: 05/09/22 08:08 Dose: 200 mg Apixaban (Apixaban 2.5 Mg Tab) 2.5 mg PO BID ALYSSA Stop: 06/07/22 08:59 Last Admin: 05/09/22 08:07 Dose: 2.5 mg Atorvastatin Calcium (Atorvastatin 40 Mg Tab) 40 mg PO QPM ALYSSA Stop: 06/07/22 20:59 Last Admin: 05/08/22 19:54 Dose: 40 mg Clopidogrel Bisulfate (Clopidogrel Bisulfate 75 Mg Tab) 75 mg PO QAM ALYSSA Stop: 06/07/22 08:59 Last Admin: 05/09/22 08:07 Dose: 75 mg Doxycycline Hyclate (Doxycycline Hyclate 100 Mg Cap) 100 mg PO BID ALYSSA Stop: 05/16/22 08:59 Last Admin: 05/09/22 08:07 Dose: 100 mg Escitalopram Oxalate (Escitalopram Oxalate 10 Mg Tab) 10 mg PO PM ALYSSA Stop: 06/07/22 20:59 Last Admin: 05/08/22 19:55 Dose: 10 mg Famotidine (Famotidine 10 Mg Tablet) 10 mg PO DAILY ALYSSA Stop: 06/07/22 08:59 Last Admin: 05/09/22 08:07 Dose: 10 mg Furosemide (Furosemide 40 Mg/4 Ml Vial) 40 mg IV BID ALYSSA Stop: 06/07/22 08:59 Last Admin: 05/09/22 07:17 Dose: Not Given Ceftriaxone Sodium 2,000 mg/ (Dextrose) 70 mls @ 100 mls/hr IV Q24H [facility]; Protocol Stop: 05/14/22 06:41 Last Infusion: 05/09/22 07:14 Dose: Infused Isosorbide Mononitrate (Isosorbide [place] Extended Rel 30 Mg Tabcr) 30 mg PO QAM [facility] Stop: 06/08/22 09:14 Last Admin: 05/09/22 10:38 Dose: 30 mg Levothyroxine Sodium (Levothyroxine Sodium 100 Mcg Tablet) 100 mcg PO DAILYBB [facility] Stop: 06/08/22 06:29 Last Admin: 05/09/22 06:17 Dose: 100 mcg Metoprolol Succinate (Metoprolol Succ 25mg Ext Rel Tab) 25 mg PO QAM [facility] Stop: 06/07/22 08:59 Last Admin: 05/09/22 08:08 Dose: 25 mg Nitroglycerin (Nitroglycerin Sl 0.4 Mg/Tab Tab) 0.4 mg SL UD PRN PRN Reason: Chest Pain Stop: 06/07/22 08:17 Polyethylene Glycol (Polyethylene (Miralax) 17 Gm Pack) 17 gm PO DAILY PRN PRN Reason: Constipation Stop: 06/07/22 08:17 (1) Type 2 diabetes mellitus Chronic kidney disease stage: stage 3 (moderate) Diabetes mellitus complication detail: with chronic kidney disease Diabetes mellitus complication status: with kidney complications Diabetes mellitus assisted insulin use: without long term care administrator use Qualified Code(s): 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 (2) HTN (hypertension) 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 type: essential hypertension Qualified Code(s): I10 - Essential (primary) hypertension
[2022-05-09] MEDS: ESCITALOPRAM OXALATE 10 MG TAB PO SCH (20:13)
[2022-05-09] MEDS: ATORVASTATIN 40 MG TAB PO SCH (20:13)
[2022-05-10] MEDS: LEVOTHYROXINE SODIUM 100 MCG TABLET PO SCH (05:45)
[2022-05-10] MEDS: cefTRIAXone SODIUM 2,000 MG in DEXTROSE 5% 50 ML IV SCH (05:46)
[2022-05-10 07:38] LABS: BUN Creatinine Ratio 18.9 (10-20); Calcium 8.9 mg/dl (8.5-10.1); Creatinine Clr Calc Pharmacy 18.3 ml/min; Est GFR (African American) 21.6 ml/min; Est GFR (Non-African American) 18.6 ml/min; Potassium 3.5 mmol/L (3.5-5.1)
[2022-05-10] MEDS ORDERED: POTASSIUM CHLORIDE 10 MEQ TABCR PO ONE (08:46)
[2022-05-10] MEDS: CLOPIDOGREL BISULFATE 75 MG TAB PO SCH (09:19)
[2022-05-10] MEDS: DOXYCYCLINE HYCLATE 100 MG CAP PO SCH ×2 (09:20→20:18)
[2022-05-10] MEDS: FAMOTIDINE 10 MG TABLET PO SCH (09:20)
[2022-05-10] MEDS: APIXABAN 2.5 MG TAB PO SCH ×2 (09:20→20:17)
[2022-05-10] MEDS: AMIODARONE 200 MG TAB PO SCH (09:20)
[2022-05-10] MEDS: allopurinoL 100 MG TAB PO SCH (09:21)
[2022-05-10] MEDS: ISOSORBIDE MONO EXTENDED REL 30 MG TABCR PO SCH (09:22)
[2022-05-10] MEDS: METOPROLOL SUCC 25MG EXT REL TAB PO SCH (09:22)
--- NOTE | 2022-05-10 10:08 | Cardiology Progress Note ---
Date of Service May 10, 2022 Assessment & Plan (1) Pneumonia: (2) CKD (chronic kidney disease), stage IV: (3) Tachycardia-bradycardia syndrome: (4) Acute systolic (congestive) heart failure: (5) Paroxysmal atrial fibrillation: (6) Acute hypoxemic respiratory failure: Plan Complex 76 year old female admitted with mixed respiratory distress, possible aspiration, acute decompensated systolic congestive heart failure. Resting echocardiography this admission revealed worsening systolic dysfunction, EF 20- 25%. Volume status has promptly improved following IV diuresis. Atrial arrhythmias are well controlled on review of patient's recent device interrogation as well as inpatient telemetry monitoring. RECOMMENDATIONS: Discontinue IV furosemide Supplement potassium orally Patient will likely require oral furosemide on discharge, perhaps 20 mg 2-3 days per week as needed. ACEI/ARB/Entresto/Spironolactone contraindicated. Amlodipine discontinued. Imdur added. Hold off on adding hydralazine for now. Continue evidence based beta-rizwan therapy, oral amiodarone, renally dosed Apixaban, clopidogrel, and moderate intensity statin therapy (atorvastatin 40 mg/day) Outpatient Cardiology follow-up in 2-3 weeks. Admission and Anticipated Discharge Date Admission Date: May 08, 2022 Supervising Physician Co-Signing Physician Notes Patient was seen and examined personally. Assessment and plan as above. Patient desires discharge to home soon as possible. Hemodynamically stable. Medical therapies as planned above Subjective Patient seen and examined. Chart, medications, and telemetry reviewed. Hearing aides in place. Feeling better. Dyspnea and wheezing have improved. + Self controlled epistaxis this morning. No chest pain. No palpitations. No orthopnea or PND. No dizziness or near syncope. Telemetry: Atrial paced in the 60's. May 08, 2022 TTE Interpretation Summary ([facility], Dr. Anne): Borderline dilated LV. Normal LV wall thickness. Severe global hypokinesis of the LV. EF 20-25%. Moderately dilated left atrium. Mild aortic valve sclerosis without stenosis. Mildly thickened mitral valve leaflets with mild to moderate mitral regurgitation. RVSP 30-40 mmHg. Review of Systems Review of Systems: Complete Review of Systems is as stated above, negative, or noncontributory. Physical Exam Physical Exam: General: A&Ox3. NAD. Hard of hearing. Laying flat. HEENT: Normocephalic. Atraumatic. Eyes: PER. Conjunctiva pink, sclera clear. Neck: No JVD. No carotid bruits. Heart: Regular, paced, at 60 bpm. Soft systolic murmur. No rub. PMI is nondisplaced. Lungs: Clear. No wheeze. No rales. No rhonchi. Abdomen: +BS. Soft. Nontender. No masses or organomegaly. Extremities: No edema. No clubbing. No cyanosis. Limited neurological examination is without focal deficits. Pulses: radial=2/4, posterior tibial=1/4. Results & Data ([facility]) Vital Signs (Past 12 Hours) Vital Signs Temp Pulse Pulse Resp BP Pulse Ox O2 Del Method 05/10/22 08:04 36.7 C 61 18 104/60 94 Nasal Cannula 05/10/22 02:53 36.7 C 62 20 120/73 99 Nasal Cannula 05/09/22 22:20 63 05/09/22 22:33 36.3 C L 84 20 114/70 97 Nasal Cannula O2 Flow Rate 05/10/22 08:04 2 05/10/22 02:53 05/09/22 22:20 05/09/22 22:33 2 Laboratory Results Laboratory Results - last 24 hr 05/10/22 06:46 Sodium 137 Potassium 3.5 Chloride 99 Carbon Dioxide 27 Anion Gap 11 BUN 46 H Creatinine 2.44 H Est Cr Clr Drug Dosing 18.3 Est GFR ( Amer) 21.6 Est GFR (Non-Af Amer) 18.6 BUN/Creatinine Ratio 18.9 Glucose 119 H Calcium 8.9
[2022-05-10] MEDS ORDERED: AMOXICILLIN 500 MG CAP PO SCH (10:15)
[2022-05-10] MEDS: AMOXICILLIN 500 MG CAP PO SCH ×2 (11:51→22:17)
[2022-05-10] MEDS: ESCITALOPRAM OXALATE 10 MG TAB PO SCH (20:17)
[2022-05-10] MEDS: ATORVASTATIN 40 MG TAB PO SCH (20:18)
--- NOTE | 2022-05-10 21:24 | Hospitalist Progress Note ---
Date of Service May 10, 2022 Assessment & Plan (1) Acute hypoxemic respiratory failure: Plan: Secondary to acute on chronic systolic heart failure versus pneumonia given elevated white blood cell count, and shortness of breath with cough. Continues to remain comfortable at 95% oxygen saturation on 2 L/min via nasal cannula. Noted decreasing oxygen needs with treatment. Encouraged to ambulate as tolerated. (2) Acute systolic (congestive) heart failure: Plan: Improved. Cardiology following. Given IV Lasix which was held given elevation in creatinine. Did receive one dose yesterday afternoon. Monitor on telemetry, monitor electrolytes daily, strict ins and outs, low-salt diet, daily weights. (3) Pneumonia: Plan: Possible presents given leukocytosis and ongoing cough-now both are resolved. Chest x-ray findings consistent with this. Rocephin changed to amoxicillin and cont doxycycline to complete the course. (4) CKD (chronic kidney disease), stage IV: Plan: Chronic, stable, creatinine elevated to 2.4 with baseline 1.8. Continue to renally dose medications as needed and avoid nephrotoxic substances. Hold Lasix. (5) Paroxysmal atrial fibrillation: Plan: Currently in sinus rhythm, continue amiodarone and Eliquis per home regimen. Also on Toprol-XL 25 mg p.o. every morning. (6) Type 2 diabetes mellitus: Plan: Diet controlled, not on diabetic medication at home. (7) HTN (hypertension): Plan: Chronic, at goal, continue current medical therapy. (8) DVT prophylaxis: Plan: Eliquis Full code Disposition-Home pending PT/OT recommendations, and clinical improvement. Radha Maynard DO [facility] Hospitalist Admission and Anticipated Discharge Date Admission Date: May 08, 2022 Subjective 76-year-old female presents with acute hypoxic respiratory failure with evidence of CHF by chest x-ray. Cough is improved, SOB improved. Patient feels improved clinically Oxygen needs are decreasing but still present Dry nose--humidity added to the line. Denies other issues today Reports ambulating to and from bathroom and feeling well Lasix continues to stay on hold but she did receive some yesterday afternoon. Review of Systems Review of Systems: All systems reviewed negative except as indicated above. Physical Exam Physical Exam: CONSTITUTIONAL: WNWD, vitals as above, generally well- appearing, NAD EYES: normal conjunctivae, no scleral icterus ENT: external ear and nose normal, MMM NECK: trachea midline, RESPIRATORY: CTA throughout, no crackles, rales or wheezes, normal respiratory effort on supplemented oxygen CARDIOVASCULAR: regular rate and rhythm, S1 and 2 heard without murmurs, gallops or rubs, no JVD, no peripheral edema CHEST: inspection of chest was normal GASTROINTESTINAL: soft, nontender, ND, no guarding MUSCULOSKELETAL: generalized weakness, no gross focal deficits. Head is normocephalic and atraumatic SKIN: warm and dry NEUROLOGIC: CN 2-12 grossly intact, no sensory deficit, normal cognition, normal speech, no tremor PSYCHIATRIC: alert cooperative and oriented to person, place and time. Euthymic mood, makes good eye contact, language grossly intact, recent and remote memory grossly intact. Results & Data Results & Data ([facility]) Vital Signs (Past 12 Hours) Vital Signs Temp Pulse Resp BP Pulse Ox Pulse Ox Pulse Ox 05/10/22 19:48 36.6 C 66 18 126/75 94 05/10/22 15:52 36.3 C L 71 18 136/77 95 05/10/22 14:21 91 92 05/10/22 11:42 36.5 C 69 18 126/74 95 O2 Del Method O2 Flow Rate O2 Flow Rate O2 Flow Rate 05/10/22 19:48 Room Air 05/10/22 15:52 Room Air 05/10/22 14:21 0 0 05/10/22 11:42 Nasal Cannula 2 Laboratory Results [facility] 05/10/22 06:46 Sodium 137 Potassium 3.5 Chloride 99 Carbon Dioxide 27 BUN 46 H Creatinine 2.44 H Glucose 119 H Calcium 8.9 Medications Administered Current Inpatient Medications Acetaminophen (Acetaminophen 325 Mg Tab) 650 mg PO Q4H PRN PRN Reason: Pain or Fever Stop: 06/07/22 08:17 Albuterol (Albuterol Hfa 8 Gm Inhaler) 2 puffs INH QID PRN PRN Reason: Shortness Of Breath Or Wheezing Stop: 06/07/22 08:17 Allopurinol ([facility] 100 Mg Tab) [facility] [place]: 06/07/22 08:59 Last Admin: 05/10/22 09:21 Dose: 100 mg Amiodarone HCl (Amiodarone 200 Mg Tab) [facility] [place]: 06/07/22 08:59 Last Admin: 05/10/22 09:20 Dose: 200 mg Amoxicillin (Amoxicillin 500 Mg Cap) 500 mg PO Q12H [facility]; Protocol Stop: 05/17/22 10:59 Last Admin: 05/10/22 11:51 Dose: 500 mg Apixaban (Apixaban 2.5 Mg Tab) 2.5 mg PO BID ALYSSA Stop: 06/07/22 08:59 Last Admin: 05/10/22 20:17 Dose: 2.5 mg Atorvastatin Calcium (Atorvastatin 40 Mg Tab) 40 mg PO QPM ALYSSA Stop: 06/07/22 20:59 Last Admin: 05/10/22 20:18 Dose: 40 mg Clopidogrel Bisulfate (Clopidogrel Bisulfate 75 Mg Tab) 75 mg PO QAM [facility] Stop: 06/07/22 08:59 Last Admin: 05/10/22 09:19 Dose: 75 mg Doxycycline Hyclate (Doxycycline Hyclate 100 Mg Cap) 100 mg PO BID ALYSSA Stop: 05/16/22 08:59 Last Admin: 05/10/22 20:18 Dose: 100 mg Escitalopram Oxalate (Escitalopram Oxalate 10 Mg Tab) 10 mg PO PM ALYSSA Stop: 06/07/22 20:59 Last Admin: 05/10/22 20:17 Dose: 10 mg Famotidine (Famotidine 10 Mg Tablet) 10 mg PO DAILY [facility] Stop: 06/07/22 08:59 Last Admin: 05/10/22 09:20 Dose: 10 mg Furosemide (Furosemide 40 Mg/4 Ml Vial) 40 mg IV BID [facility] Stop: 06/07/22 08:59 Last Admin: 05/09/22 20:13 Dose: 40 mg Isosorbide Mononitrate (Isosorbide [place] Extended Rel 30 Mg Tabcr) 30 [facility] [place]: 06/08/22 09:14 Last Admin: 05/10/22 09:22 Dose: 30 mg Levothyroxine Sodium (Levothyroxine Sodium 100 Mcg Tablet) 100 mcg PO DAILYBB [facility] Stop: 06/08/22 06:29 Last Admin: 05/10/22 05:45 Dose: 100 mcg Metoprolol Succinate (Metoprolol Succ 25mg Ext Rel Tab) 25 [place] [facility] [place]: 06/07/22 08:59 Last Admin: 05/10/22 09:22 Dose: 25 mg Nitroglycerin (Nitroglycerin Sl 0.4 Mg/Tab Tab) 0.4 mg SL UD PRN PRN Reason: Chest Pain Stop: 06/07/22 08:17 Polyethylene Glycol (Polyethylene (Miralax) 17 Gm Pack) 17 gm PO DAILY PRN PRN Reason: Constipation Stop: 06/07/22 08:17 (1) Type 2 diabetes mellitus Chronic kidney disease stage: stage 3 (moderate) Diabetes mellitus complication detail: with chronic kidney disease Diabetes mellitus complication status: with kidney complications Diabetes mellitus custodial insulin use: without intermediate teacher use Qualified Code(s): 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 (2) HTN (hypertension) 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 type: essential hypertension Qualified Code(s): I10 - Essential (primary) hypertension
[2022-05-11] MEDS: LEVOTHYROXINE SODIUM 100 MCG TABLET PO SCH (06:03)
[2022-05-11 06:58] LABS: Hematocrit (blood only) 35.5 % (34.1-44.9); Hemoglobin 11.9 g/dl (12.0-16.0); Mean Corpuscular Hemoglobin 33.6 pg (25.0-34.0); Mean Corpuscular Hgb Conc 33.5 g/dL (32.0-36.0); Mean Corpuscular Volume 100.3 fL (80.0-100.0); Mean Platelet Volume 10.7 fL (9.4-12.3); Platelet Count 255 K/uL (130-400); RDW Coefficient of Variation 13.7 % (11.5-14.5); RDW Standard Deviation 50.3 fL (36.4-46.3); Red Blood Count 3.54 M/uL (3.93-5.22)
[2022-05-11 07:19] LABS: BUN Creatinine Ratio 16.4 (10-20); Calcium 9.1 mg/dl (8.5-10.1); Creatinine Clr Calc Pharmacy 20.4 ml/min; Est GFR (African American) 24.6 ml/min; Est GFR (Non-African American) 21.2 ml/min; Magnesium 1.7 mg/dl (1.7-2.4); Potassium 3.6 mmol/L (3.5-5.1)
[2022-05-11] MEDS: ISOSORBIDE MONO EXTENDED REL 30 MG TABCR PO SCH (08:26)
[2022-05-11] MEDS: METOPROLOL SUCC 25MG EXT REL TAB PO SCH (08:26)
[2022-05-11] MEDS: FAMOTIDINE 10 MG TABLET PO SCH (08:26)
[2022-05-11] MEDS: DOXYCYCLINE HYCLATE 100 MG CAP PO SCH (08:26)
[2022-05-11] MEDS: allopurinoL 100 MG TAB PO SCH (08:26)
[2022-05-11] MEDS: AMIODARONE 200 MG TAB PO SCH (08:26)
[2022-05-11] MEDS: APIXABAN 2.5 MG TAB PO SCH (08:26)
[2022-05-11] MEDS: CLOPIDOGREL BISULFATE 75 MG TAB PO SCH (08:26)
--- NOTE | 2022-05-11 10:49 | Cardiology Progress Note ---
Date of Service May 11, 2022 Assessment & Plan (1) Pneumonia: (2) CKD (chronic kidney disease), stage IV: (3) Tachycardia-bradycardia syndrome: (4) Acute systolic (congestive) heart failure: (5) Paroxysmal atrial fibrillation: (6) Acute hypoxemic respiratory failure: Plan 76 year old female admitted with mixed respiratory distress, possible aspiration, acute decompensated systolic congestive heart failure. Resting echocardiography with worsening systolic dysfunction, EF 20-25%. Volume status promptly improved following IV diuresis. Atrial arrhythmias well controlled on review of patient's recent device interrogation as well as inpatient telemetry monitoring. RECOMMENDATIONS: Supplement potassium and magnesium following IV diuresis. Recommend oral furosemide 20 mg 2-3 days per week as needed on discharge. ACEI/ARB/Entresto/Spironolactone contraindicated. Amlodipine discontinued. Imdur added. Hold off on adding hydralazine for now. Continue evidence based beta-rizwan therapy, oral amiodarone, renally dosed Apixaban, clopidogrel, and moderate intensity statin therapy (atorvastatin 40 mg/day) Outpatient Cardiology follow-up in 2-3 weeks. Please contact with any questions or concerns. Admission and Anticipated Discharge Date Admission Date: May 08, 2022 Supervising Physician Co-Signing Physician Notes Patient seen and examined, chart, medications, telemetry reviewed. Patient up in room. No signs of clinical decline or deterioration. Congestive heart failure appears compensated after medication adjustments. Plan as well outlined above Subjective Patient seen and examined. Chart, medications, and telemetry reviewed. Hearing aides in place. No complaints. Quite anxious for discharge. No chest pain. Breathing back to baseline. No orthopnea or PND. No palpitations. No dizziness or near syncope. Telemetry: Atrial paced in the 60's. May 08, 2022 TTE Interpretation Summary ([facility], Dr. Anne): Borderline dilated LV. Normal LV wall thickness. Severe global hypokinesis of the LV. EF 20-25%. Moderately dilated left atrium. Mild aortic valve sclerosis without stenosis. Mildly thickened mitral valve leaflets with mild to moderate mitral regurgitation. RVSP 30-40 mmHg. Review of Systems Review of Systems: Complete Review of Systems is as stated above, negative, or noncontributory. Physical Exam 2 Physical Exam: General: A&Ox3. NAD. Hard of hearing. Laying flat. HEENT: Normocephalic. Atraumatic. Eyes: PER. Conjunctiva pink, sclera clear. Neck: No JVD. No carotid bruits. Heart: Regular, paced, at 60 bpm. Soft systolic murmur. No rub. PMI is nondisplaced. Lungs: Clear. No wheeze. No rales. No rhonchi. Abdomen: +BS. Soft. Nontender. No masses or organomegaly. Extremities: No edema. No clubbing. No cyanosis. Limited neurological examination is without focal deficits. Pulses: radial=2/4, posterior tibial=1/4. Results & Data ([facility]) Vital Signs (Past 12 Hours) Vital Signs Temp Pulse Pulse Resp BP Pulse Ox O2 Del Method 05/11/22 07:42 70 05/11/22 07:42 Room Air 05/11/22 07:19 36.9 C 67 12 110/70 93 Room Air 05/11/22 04:43 36.8 C 63 18 104/62 93 Room Air 05/10/22 22:58 36.7 C 67 16 120/68 94 Room Air Laboratory Results Laboratory Results - last 24 hr 05/11/22 05/11/22 06:45 06:45 WBC 7.50 RBC 3.54 L Hgb 11.9 L Hct 35.5 MCV 100.3 H MCH 33.6 MCHC 33.5 RDW Std Deviation 50.3 H RDW Coeff of Etta 13.7 Plt Count 255 MPV 10.7 Sodium 136 Potassium 3.6 Chloride 101 Carbon Dioxide 27 Anion Gap 8 BUN 36 H Creatinine 2.19 H Est Cr Clr Drug Dosing 20.4 Est GFR ( Amer) 24.6 Est GFR (Non-Af Amer) 21.2 BUN/Creatinine Ratio 16.4 Glucose 124 H Calcium 9.1 Magnesium 1.7
[2022-05-11] MEDS ORDERED: POTASSIUM CHLORIDE 10 MEQ TABCR PO ONE (10:50)
[2022-05-11] MEDS ORDERED: MAGNESIUM OXIDE 400 MG TAB PO ONE (11:00)
[2022-05-11] MEDS: AMOXICILLIN 500 MG CAP PO SCH (11:57)
--- NOTE | 2022-05-11 12:10 | Hospitalist Progress Note ---
Date of Service May 11, 2022 Assessment & Plan (1) Acute hypoxemic respiratory failure: Plan: Secondary to acute on chronic systolic heart failure versus pneumonia given elevated white blood cell count, and shortness of breath with cough. Noted decreasing oxygen needs with treatment. Encouraged to ambulate as tolerated. - improved on abx and IV lasix - on RA tolerating well - ready for discahrge (2) Acute systolic (congestive) heart failure: Plan: Improved. Cardiology following. - s/p IV lasix now stopped - Monitor on telemetry - monitor electrolytes daily, - strict ins and outs - low-salt diet, daily weights. - transitioned to PO lasix 3x/Wk - ok for discharge from Cardiology standpoint - for discharge today (3) Pneumonia: Plan: Possible presents given leukocytosis and ongoing cough-now both are resolved. Chest x-ray findings consistent with this. - s/p ceftriaxone and amoxicillin - doxycycling x7 days total - last day 05/15/2022 (4) CKD (chronic kidney disease), stage IV: Plan: Chronic, stable, creatinine elevated to 2.4 with baseline 1.8. Continue to renally dose medications as needed and avoid nephrotoxic substances. - approaching baseline and ok to discharge with follow up (5) Paroxysmal atrial fibrillation: Plan: Currently in sinus rhythm, continue amiodarone and Eliquis per home regimen. Also on Toprol-XL 25 mg p.o. every morning. (6) Type 2 diabetes mellitus: Plan: Diet controlled, not on diabetic medication at home. (7) HTN (hypertension): Plan: Chronic, at goal, continue current medical therapy. (8) DVT prophylaxis: Plan: Eliquis Full code Disposition-Home Jorge Garcia MD [facility] Medicine Admission and Anticipated Discharge Date Admission Date: May 08, 2022 Subjective Patient seen and examined. Chart, medications, and telemetry reviewed. Hearing aides in place. No complaints. No chest pain and breathing back to baseline. No orthopnea or PND. No palpitations. No dizziness or near syncope. Telemetry: Atrial paced in the 60's. May 08, 2022 TTE Interpretation Summary ([facility], Dr. Anne): Borderline dilated LV. Normal LV wall thickness. Severe global hypokinesis of the LV. EF 20-25%. Moderately dilated left atrium. Mild aortic valve sclerosis without stenosis. Mildly thickened mitral valve leaflets with mild to moderate mitral regurgitation. RVSP 30-40 mmHg. Review of Systems Review of Systems: All systems reviewed & are unremarkable except as noted in Subjective All systems reviewed negative except as indicated above. Physical Exam Constitutional: well developed, well nourished and + well hydrated; no acute distress, not ill appearing and not overweight Eyes: + anicteric sclerae, PERRL and EOM intact bilaterally; no conjunctival abnormality ENMT: Ears: no external ear abnormality Nose: no sinus tenderness and no epistaxis Mouth: no oropharynx abnormality, no oral mucosal abnormality, oral mucous membranes not dry and no dentition abnormality Throat: no tonsil abnormality Neck: trachea midline; no tracheal deviation and no nuchal rigidity Thyroid: normal thyroid; no thyromegaly and thyroid nontender Respiratory: normal respiratory effort; no respiratory distress, no labored breathing, does not use accessory muscles, not tachypneic and no audible wheezes Auscultation: lungs clear to auscultation bilaterally; no crackles, no rales, no rhonchi and no wheezes Cardiovascular: Rate/Rhythm: regular rate and regular rhythm Heart Sounds: normal S1 and normal S2; no gallop, no murmur and no cardiac rub Vessels: normal peripheral pulses; no JVD Extremities: normal capillary refill; no edema Gastrointestinal (Abdomen): Inspection/Auscultation: normal bowel sounds; abdomen not distended Percussion/Palpation: abdomen soft; abdomen nontender, no guarding, abdomen not rigid and no hepatosplenomegaly Musculoskeletal: Head/Neck/Chest: normocephalic, head atraumatic and neck supple Spine: normal cervical ROM and no cervical spinal tenderness Extremities: strength 5/5 throughout; full ROM of extremities and no clubbing Skin: normal turgor; no rashes, no lesions, no ulcers, no induration, no jaundice, no dry skin and no erythema Neurologic: moves all extremities and awake; no focal motor deficits Speech / Cognition: normal speech Motor/Sensory: no tremor, no fasciculations and no sensory deficit Cranial Nerves: PERRL, EOM intact bilaterally and tongue midline Psychiatric: Orientation: alert, oriented x 3 and cooperative Speech: normal rate/rhythm/volume of speech Affect: euthymic affect Genitourinary: no CVA tenderness Lymphatic: no lymphadenopathy and no lymphedema Results & Data Results & Data ([facility]) Vital Signs (Past 12 Hours) Vital Signs Temp Pulse Pulse Resp BP Pulse Ox O2 Del Method 05/11/22 11:06 36.4 C L 64 16 120/84 95 Room Air 05/11/22 07:42 70 05/11/22 07:42 Room Air 05/11/22 07:19 36.9 C 67 12 110/70 93 Room Air 05/11/22 04:43 36.8 C 63 18 104/62 93 Room Air Laboratory Results Short CBC 05/11/22 Range/Units 06:45 WBC 7.50 (4.8-10.8) K/ul Hgb 11.9 L (12.0-16.0) g/dl Hct 35.5 (34.1-44.9) % Plt Count 255 (130-400) K/uL BMP 05/11/22 06:45 Sodium 136 Potassium 3.6 Chloride 101 Carbon Dioxide 27 BUN 36 H Creatinine 2.19 H Glucose 124 H Calcium 9.1 Medications Administered Current Inpatient Medications Acetaminophen (Acetaminophen 325 Mg Tab) 650 mg PO Q4H PRN PRN Reason: Pain or Fever Stop: 06/07/22 08:17 Albuterol (Albuterol Hfa 8 Gm Inhaler) 2 puffs INH QID PRN PRN Reason: Shortness Of Breath Or Wheezing Stop: 06/07/22 08:17 Allopurinol (Allopurinol 100 Mg Tab) 100 mg PO QAM [facility] Stop: 06/07/22 08:59 Last Admin: 05/11/22 08:26 Dose: 100 mg Amiodarone HCl (Amiodarone 200 Mg Tab) 200 mg PO QAM [facility] Stop: 06/07/22 08:59 Last Admin: 05/11/22 08:26 Dose: 200 mg Amoxicillin (Amoxicillin 500 Mg Cap) 500 mg PO Q12H [facility]; Protocol Stop: 05/17/22 10:59 Last Admin: 05/11/22 11:57 Dose: 500 mg Apixaban (Apixaban 2.5 Mg Tab) 2.5 mg PO BID [facility] Stop: 06/07/22 08:59 Last Admin: 05/11/22 08:26 Dose: 2.5 mg Atorvastatin Calcium (Atorvastatin 40 Mg Tab) 40 mg PO QPM [facility] Stop: 06/07/22 20:59 Last Admin: 05/10/22 20:18 Dose: 40 mg Clopidogrel Bisulfate (Clopidogrel Bisulfate 75 Mg Tab) 75 mg PO QAM [facility] Stop: 06/07/22 08:59 Last Admin: 05/11/22 08:26 Dose: 75 mg Doxycycline Hyclate (Doxycycline Hyclate 100 Mg Cap) 100 mg PO BID [facility] Stop: 05/16/22 08:59 Last Admin: 05/11/22 08:26 Dose: 100 mg Escitalopram Oxalate (Escitalopram Oxalate 10 Mg Tab) 10 mg PO PM [facility] Stop: 06/07/22 20:59 Last Admin: 05/10/22 20:17 Dose: 10 mg Famotidine (Famotidine 10 Mg Tablet) 10 mg PO DAILY [facility] Stop: 06/07/22 08:59 Last Admin: 05/11/22 08:26 Dose: 10 mg Furosemide (Furosemide 40 Mg/4 Ml Vial) 40 mg IV BID [facility] Stop: 06/07/22 08:59 Last Admin: 05/09/22 20:13 Dose: 40 mg Isosorbide Mononitrate (Isosorbide [place] Extended Rel 30 Mg Tabcr) [facility] Stop: 06/08/22 09:14 Last Admin: 05/11/22 08:26 Dose: 30 mg Levothyroxine Sodium (Levothyroxine Sodium 100 Mcg Tablet) 100 mcg PO DAILYBB [facility] Stop: 06/08/22 06:29 Last Admin: 05/11/22 06:03 Dose: 100 mcg Metoprolol Succinate (Metoprolol Succ 25mg Ext Rel Tab) [facility] [place] Stop: 06/07/22 08:59 Last Admin: 05/11/22 08:26 Dose: 25 mg Nitroglycerin (Nitroglycerin Sl 0.4 Mg/Tab Tab) 0.4 mg SL UD PRN PRN Reason: Chest Pain Stop: 06/07/22 08:17 Polyethylene Glycol (Polyethylene (Miralax) 17 Gm Pack) 17 gm PO DAILY PRN PRN Reason: Constipation Stop: 06/07/22 08:17 Last Admin: 05/11/22 11:57 Dose: 17 gm (1) Type 2 diabetes mellitus 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
--- NOTE | 2022-05-11 18:06 | Discharge Summary ---
Date of Service May 11, 2022 Admission HPI Per Admitting Provider This is a 76-year-old female with past medical history significant for hyperlipidemia, gout, hypothyroidism, prediabetes, history of aspiration pneumonia right lower lobe, history of hypertensive cardiomyopathy, paroxysmal atrial tachycardia, paroxysmal atrial fibrillation, hypertension, chronic ischemic right MCA stroke, chronic systolic CHF, tachybrady syndrome, status post pacemaker, GERD, vitamin D deficiency, chronic kidney disease stage IV, history of endometrial thickening on ultrasound, degenerative disk disease, sensorineural hearing loss, dementia, generalized anxiety disorder, who lives at her house with her son, ambulates without support, presents with shortness of breath. The patient says she started feeling short of breath for few hours. She has had dry cough for 1 day. Denies any fever or chills. Denies any chest pain. Was nauseous, no vomiting, was sweating. Denies any fevers, no headache, vision is okay, no runny nose, no sore throat. Normal bowel and bladder movements.Patient was requiring 8 liters OxyMask to maintain her oxygen saturations. Received Lasix. Currently she says she is feeling better. Speaking in full sentences. When she came in, she was saturating only 80% on room air. Admission Exam Per Admitting Provider GENERAL: The patient is obese, not in acute distress. VITAL SIGNS: Temperature 37.2, pulse 64, respiratory rate 18, blood pressure 163/100, oxygen 94% with 8 liters OxyMask. HEENT: Pupils equal, round and reactive to light. Oral mucosa moist. NECK: No JVD, no neck masses. CARDIOVASCULAR: S1 and S2 heard. Regular rate and rhythm. No murmur, no gallop. RESPIRATORY SYSTEM: Normal AP diameter. No accessory muscle use. Bilateral wheezing heard bibasilar crackles. ABDOMEN: Soft, bowel sounds present, nontender, no distention. CENTRAL NERVOUS SYSTEM: Cranial nerves II-XII grossly intact, nonfocal. EXTREMITIES: No edema, no erythema seen. Principal Diagnosis acute on chronic CHF with pneumonia Discharge Exam Constitutional well developed, well nourished and + well hydrated; no acute distress, not ill appearing and not overweight Eyes + anicteric sclerae, PERRL and EOM intact bilaterally; no conjunctival abnormality ENMT Ears: no external ear abnormality Nose: no sinus tenderness and no epistaxis Mouth: no oropharynx abnormality, no oral mucosal abnormality, oral mucous membranes not dry and no dentition abnormality Throat: no tonsil abnormality Neck trachea midline; no tracheal deviation and no nuchal rigidity Thyroid: normal thyroid; no thyromegaly and thyroid nontender Respiratory normal respiratory effort; no respiratory distress, no labored breathing, does not use accessory muscles, not tachypneic and no audible wheezes Auscultation: lungs clear to auscultation bilaterally; no crackles, no rales, no rhonchi and no wheezes Cardiovascular Rate/Rhythm: regular rate and regular rhythm Heart Sounds: normal S1 and normal S2; no gallop, no murmur and no cardiac rub Vessels: normal peripheral pulses; no JVD Extremities: normal capillary refill; no edema Gastrointestinal (Abdomen) Inspection/Auscultation: normal bowel sounds; abdomen not distended Percussion/Palpation: abdomen soft; abdomen nontender, no guarding, abdomen not rigid and no hepatosplenomegaly Musculoskeletal Head/Neck/Chest: normocephalic, head atraumatic and neck supple Spine: normal cervical ROM and no cervical spinal tenderness Extremities: strength 5/5 throughout; full ROM of extremities and no clubbing Skin normal turgor; no rashes, no lesions, no ulcers, no induration, no jaundice, no dry skin and no erythema Neurologic moves all extremities and awake; no focal motor deficits Speech / Cognition: normal speech Motor/Sensory: no tremor, no fasciculations and no sensory deficit Cranial Nerves: PERRL, EOM intact bilaterally and tongue midline Psychiatric Orientation: alert, oriented x 3 and cooperative Speech: normal rate/rhythm/volume of speech Affect: euthymic affect Genitourinary no CVA tenderness Lymphatic no lymphadenopathy and no lymphedema Discharge Data Allergies Allergy/AdvReac Type Severity Reaction Status Date / Time codeine Allergy Intermediate "UNSURE IF Verified 10/23/21 21:54 STILL ALLERGIC" Consultations 05/08/22 06:07 ED Decision to Admit Stat 05/08/22 08:18 Consult Cardiology Routine Hospital Course (1) Acute hypoxemic respiratory failure: Secondary to acute on chronic systolic heart failure versus pneumonia given e levated white blood cell count, and shortness of breath with cough. Noted decreasing oxygen needs with treatment. Encouraged to ambulate as tolerated. - improved on abx and IV lasix - on RA tolerating well - ready for discahrge (2) Acute systolic (congestive) heart failure: Improved. Cardiology following. - s/p IV lasix now stopped - Monitor on telemetry - monitor electrolytes daily, - strict ins and outs - low-salt diet, daily weights. - transitioned to PO lasix 3x/Wk - ok for discharge from Cardiology standpoint - for discharge today (3) Pneumonia: Possible presents given leukocytosis and ongoing cough-now both are resolved. Chest x-ray findings consistent with this. - s/p ceftriaxone and amoxicillin - doxycycling x7 days total - last day 05/15/2022 (4) CKD (chronic kidney disease), stage IV: Chronic, stable, creatinine elevated to 2.4 with baseline 1.8. Continue to renally dose medications as needed and avoid nephrotoxic substances. - approaching baseline and ok to discharge with follow up (5) Paroxysmal atrial fibrillation: Currently in sinus rhythm, continue amiodarone and Eliquis per home regimen. Also on Toprol-XL 25 mg p.o. every morning. (6) Type 2 diabetes mellitus: Diet controlled, not on diabetic medication at home. (7) HTN (hypertension): Chronic, at goal, continue current medical therapy. (8) DVT prophylaxis: Eliquis Full code Disposition-Home Jorge Garcia MD [facility] Medicine Total Time Total Time Spent Total Time Spent (In Minutes): 30 minutes Total Time Includes: Examination of the Patient, Discharge Planning, Medication Reconciliation and Communication With Other Providers Discharge Plan Discharge Items Patient Disposition: Home - Self-Care Reason For Visit: SOB Discharge Diagnosis: acute on chronic heart failure and pneumonia Condition on Discharge: Fair Activity: Resume your previous activity Non-emergency contact: Primary Care Provider, Geothermal Hvac Technician and Hiv Prevention Specialist Call non-emergency contact if: you have any medication questions, your symptoms worsen and you have a fever Follow-up/Referrals: Anjel Kerr DO [Physician] - Kasandra Antunez DO [Primary Care Provider] - Diet: Heart Healthy and Low Sodium (2gm) Addtl Attending Provider Instructions: You were admitted with shortness of breath and findings were concerning for heart failure exacerbation and possible pneumonia as well. You were treated with antibiotics and IV lasix to remove fluid from your lungs and heart. You had significnat improvement with your symptoms and Cardiology also saw you while you were in the hospital. 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 Pending Studies at Discharge: No Stand-Alone Forms: My [facility], Smoking Cessation Medications and DC Order Prescriptions: New doxycycline hyclate 100 mg Capsule 100 mg PO BID Qty: 9 0RF isosorbide mononitrate 30 mg Tablet Extended Release 24 Hr 30 mg PO QAM Qty: 30 1RF nitroglycerin [Nitrostat] 0.4 mg Tablet, Sublingual 0.4 mg sublingual UD PRN (Reason: chest pain) Qty: 10 0RF Continued clopidogrel 75 mg Tablet 75 mg PO QAM Qty: 30 0RF atorvastatin 40 mg Tablet 40 mg PO QPM Qty: 30 0RF escitalopram oxalate 10 mg tablet 10 mg PO PM Eliquis 2.5 mg Tablet 2.5 mg PO BID Qty: 60 1RF metoprolol succinate 25 mg Tablet Extended Release 24 Hr 25 mg PO QAM Qty: 30 1RF allopurinol 100 mg tablet 100 mg PO QAM acetaminophen [Tylenol] 325 mg Capsule 325 mg PO Q6H PRN (Reason: pain/fever) amiodarone 200 mg tablet 200 mg PO QAM albuterol sulfate 90 mcg/actuation Hfa Aerosol Inhaler 2 puff INHALATION QID PRN (Reason: Shortness Of Breath Or Wheezing) ondansetron 4 mg tablet,disintegrating 4 mg PO Q8 PRN (Reason: nausea and vomiting) levothyroxine 100 mcg tablet 100 mcg PO DAILYBB amlodipine [Norvasc] 5 mg Tablet 2.5 mg PO HS Qty: 30 0RF Changed famotidine 10 mg Tablet 10 mg PO 3XWK Qty: 30 0RF Discharge Orders: Discharge Order (Routine); Ordered 05/11/22 Ordered By: Jorge Allison/Other Patient Handouts: Prediabetes, 5 Steps for Eating Healthier Admission Data Admit Date/Time: 05/08/22 06:37 Attending Provider: Jorge Garcia Admit Provider: Kranthi Bear Primary Care Provider: Kasandra Antunez Other Providers: Anjel Kerr ; Dmiitri Villalpando ; Brian Anne ; Yobany La ; Martin Blanchard ; Roberto Winter ; Maggie Sepulveda ; Ailyn Mcelroy ; Ruby Diaz ; Arron Montez ; Kranthi Bear Other Interventions: Discharge Summary Assessment (RN) Last Done: 05/11/22 12:24
== END 2022-05-11 13:23 | disposition home or self-care (01) | DRG 291 ==
LOC: ED 05:05 → SUATTDRO 06:37 → 2S 06:37

== ENCOUNTER 2022-09-18 13:44 | Inpatient (IN) ==
[2022-09-18] MEDS ORDERED: ONDANSETRON INJ 2 MG/ML 2 ML VIAL ONE (14:03)
[2022-09-18] MEDS ORDERED: ONDANSETRON INJ 2 MG/ML 2 ML VIAL IV STA (14:04)
--- NOTE | 2022-09-18 14:06 | Emergency Department Note ---
Impression & Plan Acute dyspnea, Pulmonary edema, Acute exacerbation of CHF (congestive heart failure), Acute respiratory failure with hypoxia ED Provider Note HISTORY OF PRESENT ILLNESS: Patient is a 77-year-old female presenting with shortness of breath. Patient states that she was feeling significantly short of breath this morning, prompting her to call 911. Patient is not on any supplemental oxygen at baseline. Reports she had a nonproductive cough for the last few days. Denies any recent fevers. On EMS arrival, she was found to be satting in the 70s on room air. On arrival to the ER, denies any chest pain or abdominal pain. She does report some nausea. Denies any history of DVT or PE. She is on Eliquis for history of atrial fibrillation. Denies any lower extremity edema. ROS: Constitutional: No fever, chills, or weakness Skin: No rash or diaphoresis HENT: No headaches or congestion Eyes: No vision changes Cardio: No chest pain, palpitations or leg swelling Respiratory: No wheezing +shortness of breath; +cough GI: No vomiting, diarrhea, constipation +nausea : No dysuria, polyuria MSK: No joint or back pain Neuro: No loss of sensation, confusion, focal deficits, numbness, tingling Psychiatric: No mood changes PHYSICAL EXAM: Constitutional: Patient appears in no acute distress. HENT: Head: Normocephalic and atraumatic. Eyes: EOMI, PERRL Mouth/Throat: Mucous membranes moist. Neck: Trachea midline. Neck supple. Cardiovascular: RRR, No murmurs, rubs or gallops. Intact distal pulses. Pulmonary/Chest: Coarse breath sounds bilaterally. On non-rebreather with saturations in the upper 80s. Conversationally dyspneic. Abdominal: BS +. Abdomen soft, no tenderness, rebound or guarding. Back: No midline spinal tenderness, no paraspinal tenderness, no CVA tenderness. Musculoskeletal: No edema, tenderness or deformity noted. Skin: Warm and dry. No rash, erythema, pallor or cyanosis Psychiatric: Appropriate mood and affect for situation. Neurological: Alert and keenly responsive. CN II-XII grossly intact, moving all extremities equally and fully. MDM: - Vitals signs showed hypoxia on non-rebreather. Placed on HFNC with improvement in saturations and work of breathing. - EKG negative for acute ischemic changes. Noted to have atrial paced rhythm - Laboratory workup showed normal WBC; chronic anemia (Hgb 11.7); stable electrolytes; CKD (Cr 2.0); hyperglycemia (glucose 239); normal procalcitonin - ABG shows hypoxia (pO2 68). - COVID/flu/RSV negative. - CXR showed cardiomegaly with pulmonary edema. Also noted to have bilateral pleural effusions, more prominent on the right. - Patient given 40 mg IV lasix in ER. - Hospitalist Dr. Wood, consulted for admission. - Patient admitted to hospitalist service for further evaluation and management. ASSESSMENT AND PLAN: Diagnosis: Dyspnea; CHF exacerbation; acute hypoxic respiratory failure; pulmonary edema Plan: admit Past Med/Surg History Medical History (Updated 09/18/22 @ 17:06 by Alaina Chamberlain MD) Acute systolic (congestive) heart failure Atrial fibrillation CKD (chronic kidney disease) stage 3, GFR 30-59 ml/min Degenerative disc disease, cervical Dyslipidemia MELQUIADES (generalized anxiety disorder) GERD without esophagitis Hearing loss History of adenomatous polyp of colon History of right MCA stroke HTN (hypertension) Hypertensive cardiomegaly LBBB (left bundle branch block) Pneumonia Type 2 diabetes mellitus Vitamin D deficiency Surgical History History of arthroplasty of left knee History of carpal tunnel surgery History of cholecystectomy History of D&C History of excision of lesion Back - Dr. 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 Feels Safe at Home: Yes Assistive Devices: None Allergies Allergies Allergy/AdvReac Type Severity Reaction Status Date / Time codeine Allergy Intermediate "UNSURE IF Verified 08/06/22 21:21 STILL ALLERGIC" Home Meds Home Medications Medication Instructions Recorded Confirmed acetaminophen 325 mg capsule 325 mg PO Q6H PRN pain/fever 06/11/19 08/06/22 (Tylenol) allopurinol 100 mg tablet 100 mg PO QAM 06/11/19 08/06/22 escitalopram oxalate 10 mg tablet 10 mg PO PM 08/12/20 08/06/22 amiodarone 200 mg tablet 200 mg PO QAM 08/03/21 08/06/22 albuterol sulfate 90 mcg/actuation 2 puff inhalation QID PRN 10/23/21 08/06/22 aerosol inhaler Shortness Of Breath Or Wheezing levothyroxine 100 mcg tablet 100 mcg PO DAILYBB 10/23/21 08/06/22 ondansetron 4 mg disintegrating 4 mg PO Q8 PRN nausea and vomiting 10/23/21 08/06/22 tablet Previous Rx's Medication Instructions Recorded atorvastatin 40 mg tablet 40 mg PO QPM #30 tabs 02/24/20 clopidogrel 75 mg tablet 75 mg PO QAM #30 tabs 02/24/20 apixaban 2.5 mg tablet (Eliquis) 2.5 mg PO BID #60 tabs 08/17/20 metoprolol succinate 25 mg 25 mg PO QAM #30 tabs 08/17/20 tablet,extended release 24 hr amlodipine 5 mg tablet (Norvasc) 2.5 mg PO HS #30 tabs 10/28/21 famotidine 10 mg tablet 10 mg PO 3XWK #30 tabs 05/11/22 isosorbide mononitrate 30 mg 30 mg PO QAM #30 tabs 05/11/22 tablet,extended release 24 hr nitroglycerin 0.4 mg sublingual 0.4 mg sublingual UD PRN chest 05/11/22 tablet (Nitrostat) pain #10 tabs Results & Data (ED) Vital Signs Vital Signs - 24 hr 09/18/22 14:03 09/18/22 14:03 09/18/22 14:03 Temperature 37.1 C Temperature Source Oral Oral Pulse Rate 78 Pulse Rate [Right Finger] Pulse Rhythm [Right Finger] Pulse Strength [Right Finger] Respiratory Rate 23 Respiratory Effort / Characteristics Short of Breath Respiratory Depth Respiratory Pattern Blood Pressure 107/64 Blood Pressure [Right Arm] Blood Pressure Mean 78 Blood Pressure Mean [Right Arm] Blood Pressure Position Sitting Blood Pressure Position [Right Arm] Pulse Oximetry 84 L 92 Oxygen Delivery Method Oxymask High Flow Nasal Cannula Oxygen Flow Rate 15 40 Fraction of Inspired Oxygen 100 SaO2/FiO2 Ratio 92 Sepsis Recent Fever Within 48 Hours No Sepsis New/Unexplained Change in Mental Status No Sepsis Action Taken by Nursing No Action Required 09/18/22 14:39 09/18/22 15:00 09/18/22 16:00 Temperature Temperature Source Pulse Rate Pulse Rate [Right Finger] 61 61 Pulse Rhythm [Right Finger] Regular Regular Pulse Strength [Right Finger] Normal Normal Respiratory Rate 20 16 16 Respiratory Effort / Characteristics Non-Labored Spontaneous Non-Labored Non-Labored Respiratory Depth Normal Normal Respiratory Pattern Regular Regular Blood Pressure Blood Pressure [Right Arm] 140/64 128/67 Blood Pressure Mean Blood Pressure Mean [Right Arm] 89 87 Blood Pressure Position Blood Pressure Position [Right Arm] Lying Pulse Oximetry 92 92 91 Oxygen Delivery Method High Flow Nasal Cannula Free Flow/Blow- by High Flow Nasal Cannula Oxygen Flow Rate 40 40 40 Fraction of Inspired Oxygen 100 100 100 SaO2/FiO2 Ratio 92 91 Sepsis Recent Fever Within 48 Hours Sepsis New/Unexplained Change in Mental Status Sepsis Action Taken by Nursing Laboratory Data Result diagrams: 09/18/22 14:22 09/18/22 14:22 Lab Results 09/18/22 09/18/22 09/18/22 Range/Units 14:10 14:22 14:22 WBC 10.07 (4.8-10.8) K/ul RBC 3.65 L (3.93-5.22) M/uL Hgb 11.7 L (12.0-16.0) g/dl Hct 36.6 (34.1-44.9) % MCV 100.3 H (80.0-100.0) fL MCH 32.1 (25.0-34.0) pg MCHC 32.0 (32.0-36.0) g/dL RDW Std Deviation 57.4 H (36.4-46.3) fL RDW Coeff of Etta 15.6 H (11.5-14.5) % Plt Count 362 (130-400) K/uL MPV 10.9 (9.4-12.3) fL Immature Gran % (Auto) 0.3 % Neut % (Auto) 72.8 % Lymph % (Auto) 16.0 % Rogers % (Auto) 10.2 % Eos % (Auto) 0.1 % Baso % (Auto) 0.6 % Neut # (Auto) 7.33 H (1.4-6.5) K/uL Lymph # (Auto) 1.61 (1.2-3.4) K/uL Rogers # (Auto) 1.03 H (0.24-0.82) K/uL Eos # (Auto) 0.01 (0-0.50) K/uL Baso # (Auto) 0.06 (0-0.2) K/uL Immature Gran # (Auto) 0.03 H (0.00-0.02) K/uL ABG pH (7.35-7.45) ABG pCO2 (35-46) mmHg ABG pO2 (80-95) mmHg ABG HCO3 (19-24) mmol/L ABG O2 Saturation (90-95) % ABG Base Excess (-9-1.8) mEq/L Roman Test (Pos) Oxygen Given Sodium 138 (136-145) mmol/L Potassium 3.8 (3.5-5.1) mmol/L Chloride 103 (98-107) mmol/L Carbon Dioxide 21 (21-32) mmol/L Anion Gap 14 H (3-11) BUN 24 H (6-23) mg/dl Creatinine 2.00 H (0.6-1.2) mg/dl Est Cr Clr Drug Dosing Not Reportable Est GFR ( Amer) 27.2 ml/min Est GFR (Non-Af Amer) 23.5 ml/min BUN/Creatinine Ratio 12.0 (10-20) Glucose 239 H (70-99(Fasting)) mg/dl Lactate (0.4-2.0) mmol/L Calcium 9.1 (8.5-10.1) mg/dl Magnesium 1.8 (1.7-2.4) mg/dl Total Bilirubin 1.6 H (0.2-1.0) mg/dl Direct Bilirubin 0.4 H (0-0.2) mg/dl AST 20 (13-39) U/L ALT 16 (7-52) U/L Alkaline Phosphatase 148 H (34-104) U/L Troponin I High Sens 8.2 (0-14) pg/ml Total Protein 7.2 (6.0-8.3) gm/dl Albumin 4.2 (3.4-5.0) gm/dl Procalcitonin (0-0.5) ng/ml SARS-CoV-2 (PCR) NEGATIVE (Negative) Influenza Type A (PCR) Negative (Neg) Influenza Type B (PCR) Negative (Neg) RSV (RT-PCR) Negative (Neg) 09/18/22 09/18/22 09/18/22 Range/Units 14:22 14:22 14:22 WBC (4.8-10.8) K/ul RBC (3.93-5.22) M/uL Hgb (12.0-16.0) g/dl Hct (34.1-44.9) % MCV (80.0-100.0) fL MCH (25.0-34.0) pg MCHC (32.0-36.0) g/dL RDW Std Deviation (36.4-46.3) fL RDW Coeff of Etta (11.5-14.5) % Plt Count (130-400) K/uL MPV (9.4-12.3) fL Immature Gran % (Auto) % Neut % (Auto) % Lymph % (Auto) % Rogers % (Auto) % Eos % (Auto) % Baso % (Auto) % Neut # (Auto) (1.4-6.5) K/uL Lymph # (Auto) (1.2-3.4) K/uL Rogers # (Auto) (0.24-0.82) K/uL Eos # (Auto) (0-0.50) K/uL Baso # (Auto) (0-0.2) K/uL Immature Gran # (Auto) (0.00-0.02) K/uL ABG pH 7.38 (7.35-7.45) ABG pCO2 36 (35-46) mmHg ABG pO2 68 L (80-95) mmHg ABG HCO3 21 (19-24) mmol/L ABG O2 Saturation 91.8 (90-95) % ABG Base Excess -3.3 (-9-1.8) mEq/L Roman Test Pos (Pos) Oxygen Given 40% Sodium (136-145) mmol/L Potassium (3.5-5.1) mmol/L Chloride (98-107) mmol/L Carbon Dioxide (21-32) mmol/L Anion Gap (3-11) BUN (6-23) mg/dl Creatinine (0.6-1.2) mg/dl Est Cr Clr Drug Dosing Est GFR ( Amer) ml/min Est GFR (Non-Af Amer) ml/min BUN/Creatinine Ratio (10-20) Glucose (70-99(Fasting)) mg/dl Lactate 2.1 H* (0.4-2.0) mmol/L Calcium (8.5-10.1) mg/dl Magnesium (1.7-2.4) mg/dl Total Bilirubin (0.2-1.0) mg/dl Direct Bilirubin (0-0.2) mg/dl AST (13-39) U/L ALT (7-52) U/L Alkaline Phosphatase (34-104) U/L Troponin I High Sens (0-14) pg/ml Total Protein (6.0-8.3) gm/dl Albumin (3.4-5.0) gm/dl Procalcitonin < 0.05 (0-0.5) ng/ml SARS-CoV-2 (PCR) (Negative) Influenza Type A (PCR) (Neg) Influenza Type B (PCR) (Neg) RSV (RT-PCR) (Neg) Administered Medications Discontinued Medications Furosemide (Furosemide 40 Mg/4 Ml Vial) 40 mg IV ONE ONE Stop: 09/18/22 16:11 Last Admin: 09/18/22 16:26 Dose: 40 mg Documented By: LOBITO Sodium Chloride (Nss 1000ml) 1,000 mls @ 999 mls/hr IV .Q1H1M ALYSSA Stop: 09/18/22 15:15 Last Infusion: 09/18/22 15:40 Dose: 0 mls/hr Documented By: Admin: 09/18/22 14:39 Dose: 999 mls/hr Documented By: JANA Ondansetron HCl (Ondansetron Inj 2 Mg/Ml 2 Ml Vial) Confirm Administered Dose 4 mg .ROUTE .STK-MED ONE Stop: 09/18/22 14:04 Last Admin: 09/18/22 14:39 Dose: Not Given Documented By: JANA Ondansetron HCl (Ondansetron Inj 2 Mg/Ml 2 Ml Vial) 4 mg IV NOW STA Stop: 09/18/22 14:05 Last Admin: 09/18/22 14:39 Dose: 4 mg Documented By: JANA Imaging Data Radiologist's Impression: Chest X-Ray 09/18/22 14:03 XR chest 1V portable HISTORY: 77 years-old Female cough; shortness of breath acute cough with shortness of breath COMPARISON: Chest radiograph 08/06/2022 TECHNIQUE: AP view of the chest FINDINGS: Cardiac silhouette is enlarged. Left subclavian pacer. Atherosclerosis of the aorta. No pneumothorax. Layering pleural effusions with bibasilar and right midlung consolidation. Pulmonary vascular congestion with interstitial coarsening. Degenerative changes of the shoulders and spine. IMPRESSION: 1. Cardiomegaly with pulmonary edema. 2. Right greater than left layering pleural effusions with bibasilar and right midlung consolidative opacities. ACT 112: Negative or not required by law. The above report was generated using voice recognition software. It may contain grammatical, syntax or spelling errors. Electronically signed by: Catalino Alcocer M.D. 09/18/2022 3:57 PM Discharge Plan Visit Data Chief Complaint: Illness Stated Complaint: SOB ED Provider: Alaina Chamberlain Discharge Problem: Acute dyspnea, Pulmonary edema, Acute exacerbation of CHF (congestive heart failure), Acute respiratory failure with hypoxia Forms Stand Alone Forms: My eegoes Prescriptions Prescriptions: No Action clopidogrel 75 mg Tablet 75 mg PO QAM Qty: 30 0RF atorvastatin 40 mg Tablet 40 mg PO QPM Qty: 30 0RF escitalopram oxalate 10 mg tablet 10 mg PO PM Eliquis 2.5 mg Tablet 2.5 mg PO BID Qty: 60 1RF metoprolol succinate 25 mg Tablet Extended Release 24 Hr 25 mg PO QAM Qty: 30 1RF allopurinol 100 mg tablet 100 mg PO QAM acetaminophen [Tylenol] 325 mg Capsule 325 mg PO Q6H PRN (Reason: pain/fever) amiodarone 200 mg tablet 200 mg PO QAM albuterol sulfate 90 mcg/actuation Hfa Aerosol Inhaler 2 puff INHALATION QID PRN (Reason: Shortness Of Breath Or Wheezing) ondansetron 4 mg tablet,disintegrating 4 mg PO Q8 PRN (Reason: nausea and vomiting) levothyroxine 100 mcg tablet 100 mcg PO DAILYBB amlodipine [Norvasc] 5 mg Tablet 2.5 mg PO HS Qty: 30 0RF isosorbide mononitrate 30 mg Tablet Extended Release 24 Hr 30 mg PO QAM Qty: 30 1RF nitroglycerin [Nitrostat] 0.4 mg Tablet, Sublingual 0.4 mg sublingual UD PRN (Reason: chest pain) Qty: 10 0RF famotidine 10 mg Tablet 10 mg PO 3XWK Qty: 30 0RF Referrals Referrals: Kasandra Antunez, [Primary Care Provider] -
[2022-09-18] MEDS ORDERED: SODIUM CHLORIDE 0.9% 1000ML 1,000 ML IV SCH (14:15)
[2022-09-18 14:36] LABS: Basophils # (auto) 0.06 K/uL (0-0.2); Basophils % (auto) 0.6 %; Eosinophils # (auto) 0.01 K/uL (0-0.50); Eosinophils % (auto) 0.1 %; Hematocrit (blood only) 36.6 % (34.1-44.9); Hemoglobin 11.7 g/dl (12.0-16.0); Immature Granulocytes # (auto) 0.03 K/uL (0.00-0.02); Immature Granulocytes % (auto) 0.3 %; Lymphocytes # (auto) 1.61 K/uL (1.2-3.4); Mean Corpuscular Hemoglobin 32.1 pg (25.0-34.0); Mean Corpuscular Volume 100.3 fL (80.0-100.0); Mean Platelet Volume 10.9 fL (9.4-12.3); Monocytes # (auto) 1.03 K/uL (0.24-0.82); Monocytes % (auto) 10.2 %; Neutrophils # (auto) 7.33 K/uL (1.4-6.5); Neutrophils % (auto) 72.8 %; Platelet Count 362 K/uL (130-400); RDW Coefficient of Variation 15.6 % (11.5-14.5); RDW Standard Deviation 57.4 fL (36.4-46.3); Red Blood Count 3.65 M/uL (3.93-5.22); White Blood Count 10.07 K/ul (4.8-10.8)
[2022-09-18 14:39] LABS: Base Excess ABG -3.3 mEq/L (-9-1.8); HCO3 ABG 21 mmol/L (19-24); Oxygen Saturation ABG 91.8 % (90-95); PCO2 ABG 36 mmHg (35-46); PO2 ABG 68 mmHg (80-95); pH ABG 7.38 (7.35-7.45)
[2022-09-18 14:40] LABS: Allen Test Pos (Pos)
[2022-09-18 15:03] LABS: Alanine Aminotransferase 16 U/L (7-52); Albumin Level 4.2 gm/dl (3.4-5.0); Alkaline Phosphatase 148 U/L (34-104); Anion Gap 14 (3-11); Aspartate Aminotransferase 20 U/L (13-39); Bilirubin Direct 0.4 mg/dl (0-0.2); Bilirubin,Total 1.6 mg/dl (0.2-1.0); Blood Urea Nitrogen 24 mg/dl (6-23); Calcium 9.1 mg/dl (8.5-10.1); Carbon Dioxide 21 mmol/L (21-32); Chloride 103 mmol/L (98-107); Est GFR (African American) 27.2 ml/min; Est GFR (Non-African American) 23.5 ml/min; Glucose 239 mg/dl (70-99(Fasting)); Magnesium 1.8 mg/dl (1.7-2.4); Potassium 3.8 mmol/L (3.5-5.1); Sodium 138 mmol/L (136-145); Total Protein 7.2 gm/dl (6.0-8.3); Troponin I High Sensitivity 8.2 pg/ml (0-14)
[2022-09-18 15:27] LABS: Influenza A virus by PCR Negative (Neg); Influenza B virus by PCR Negative (Neg); RSV by PCR Negative (Neg); SARS CoV2 RNA(COVID-19) Ceph NEGATIVE (Negative)
--- NOTE | 2022-09-18 15:59 | XRay Report ---
XR chest 1V portable HISTORY: 77 years-old Female cough; shortness of breath acute cough with shortness of breath COMPARISON: Chest radiograph 08/06/2022 TECHNIQUE: AP view of the chest FINDINGS: Cardiac silhouette is enlarged. Left subclavian pacer. Atherosclerosis of the aorta. No pneumothorax. Layering pleural effusions with bibasilar and right midlung consolidation. Pulmonary vascular conges tion with interstitial coarsening. Degenerative changes of the shoulders and spine. IMPRESSION: 1. Cardiomegaly with pulmonary edema. 2. Right greater than left layering pleural effusions with bibasilar and right midlung consolidative opacities. ACT 112: Negative or not required by law. The above report was generated using voice recognition software. It may contain grammatical, syntax o r spelling errors. Electronically signed by: Catalino Alcocer M.D. 09/18/2022 3:57 PM
[2022-09-18] MEDS ORDERED: FUROSEMIDE 40 MG/4 ML VIAL IV ONE ×2 (16:10→21:00)
--- NOTE | 2022-09-18 16:53 | History & Physical Report ---
Date of Service September 18, 2022 Assessment & Plan (1) Acute respiratory failure with hypoxia: (2) Pulmonary edema: (3) Acute exacerbation of CHF (congestive heart failure): (4) CKD (chronic kidney disease), stage IV: (5) Tachycardia-bradycardia syndrome: (6) Paroxysmal atrial fibrillation: (7) Aspiration pneumonia: (8) HTN (hypertension): (9) History of right MCA stroke: Plan This is a 77-year-old female with PMH of HFrEF, tachybradycardia syndrome status post pacemaker placement, paroxysmal atrial fibrillation, prediabetes, hypothyroidism, CKD 4, dementia, anxiety, hyperlipidemia and other medical problems listed below who presents with shortness of breath when she woke up this morning and was found to have decompensated heart failure. Acute hypoxic respiratory failure Acute decompensated heart failure Pulmonary edema SOB since this morning after increased sodium over the past few days Saturating at 93% on high flow nasal cannula oxygen 30 L/min BNP 2,319 CXR with 1. Cardiomegaly with pulmonary edema. 2. Right greater than left layering pleural effusions with bibasilar and right midlung consolidative opacities Received 40 mg IV Lasix in the ED and another dose of 40 this evening Recent echo from earlier this month with EF 25-29% Strict I&Os with gooden in place, daily weights, low sodium diet, routine cards consult Bipap if needed overnight, confirmed DNI status Possible aspiration pneumonia H/o aspiration in the past, ? episode a few days ago Covering empirically with Augmentin CKD IV Creatinine baseline ~2 Tachybradycardia syndrome S/p pacemaker placement. Interrogation ordered Atrial fibrillation Continue amiodarone, Toprol, Eliquis for anticoagulation HTN Normotensive. Continue amlodipine, Toprol Prediabetes Carb consistent diet, monitor BSG on AM BMP, sliding scale insulin if needed History of CVA Continue Plavix, eliquis DVT Ppx: Eliquis Code status: DNR/DNI PCP: [facility] Dispo: Admitted to PCU Patient seen in collaboration with Dr. Wood. Please see addendum. History of Present Illness Chief Complaint: Shortness of breath Primary Care Provider: Kasandra Antunez, DO This is a 77-year-old female with PMH of HFrEF, tachybradycardia syndrome status post pacemaker placement, paroxysmal atrial fibrillation, prediabetes, hypothyroidism, CKD 4, dementia, anxiety, hyperlipidemia and other medical problems listed below who presents with shortness of breath that woke up early this morning. Patient felt well yesterday although admittedly ate a lot of high sodium foods over the weekend including turkey and gravy. Woke up at 4 this morning short of breath. Improved upon sitting up but was found to be hypoxic in the 80s and sent to ED for further evaluation. Sisters are at bedside with her. Patient with recent admission for acute decompensated heart failure. Most recent echo from August 24 with EF of 25 to 29% with a severely dilated LV. Septal wall motion consistent with left bundle branch block. Grade 3 diastolic dysfunction. Mild MR and TR with mild pulmonary hypertension. Has a dual- chamber pacemaker due to history of tachybradycardia syndrome. Was seen in cardiology clinic on September 06 and was felt to be euvolemic on exam. Instructed to continue metoprolol 25 mg daily, amiodarone 200 mg daily and Eliquis 2.5 twice daily for paroxysmal atrial fibrillation. Taking Lasix 20 mg daily. Endorsing a dry cough along with shortness of breath. Also states she aspirated on a piece of bread 2 days ago and was coughing afterwards. [place] hot this morning but did not take her temperature. Denies chills, headache, lightheadedness, chest pain, abdominal pain, dysuria, diarrhea or constipation. Allergies Allergy/AdvReac Type Severity Reaction Status Date / Time codeine Allergy Intermediate "UNSURE IF Verified 09/18/22 17:16 STILL ALLERGIC" Home Medications Medication Instructions Recorded Confirmed Type acetaminophen 325 mg capsule 325 mg PO Q6H PRN pain/fever 06/11/19 09/18/22 History (Tylenol) allopurinol 100 mg tablet 100 mg PO QAM 06/11/19 09/18/22 History atorvastatin 40 mg tablet 40 mg PO QPM #30 tabs 02/24/20 09/18/22 Rx clopidogrel 75 mg tablet 75 mg PO QAM #30 tabs 02/24/20 09/18/22 Rx escitalopram oxalate 10 mg tablet 10 mg PO QAM 08/12/20 09/18/22 History apixaban 2.5 mg tablet (Eliquis) 2.5 mg PO BID #60 tabs 08/17/20 09/18/22 Rx metoprolol succinate 25 mg 25 mg PO QAM #30 tabs 08/17/20 09/18/22 Rx tablet,extended release 24 hr amiodarone 200 mg tablet 200 mg PO QAM 08/03/21 09/18/22 History albuterol sulfate 90 mcg/actuation 2 puff inhalation QID 10/23/21 09/18/22 History aerosol inhaler levothyroxine 100 mcg tablet 100 mcg PO DAILYBB 10/23/21 09/18/22 History ondansetron 4 mg disintegrating 4 mg PO Q8 PRN nausea or vomiting 10/23/21 09/18/22 History tablet amlodipine 5 mg tablet (Norvasc) 2.5 mg PO HS #30 tabs 10/28/21 09/18/22 Rx isosorbide mononitrate 30 mg 30 mg PO QAM #30 tabs 05/11/22 09/18/22 Rx tablet,extended release 24 hr nitroglycerin 0.4 mg sublingual 0.4 mg sublingual UD PRN chest 05/11/22 09/18/22 Rx tablet (Nitrostat) pain #10 tabs famotidine 10 mg tablet 10 mg PO QAM 09/18/22 09/18/22 History furosemide 20 mg tablet 20 mg PO QAM 09/18/22 09/18/22 History Past Med/Surg History Medical History (Updated 09/19/22 @ 11:00 by SARITHA Lenz) Acute systolic (congestive) heart failure Atrial fibrillation CKD (chronic kidney disease) stage 3, GFR 30-59 ml/min Degenerative disc disease, cervical Dyslipidemia MELQUIADES (generalized anxiety disorder) GERD without esophagitis Hearing loss History of adenomatous polyp of colon History of right MCA stroke HTN (hypertension) Hypertensive cardiomegaly LBBB (left bundle branch block) Pneumonia Type 2 diabetes mellitus Vitamin D deficiency Surgical History History of arthroplasty of left knee History of carpal tunnel surgery History of cholecystectomy History of D&C History of excision of lesion Back - Dr. 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 Feels Safe at Home: Yes Assistive Devices: None Review of Systems Review of Systems: At least ten systems reviewed and negative except as noted in the HPI. Physical Exam Physical Exam: Please see Dr. Wood's addendum for physical exam. Results & Data Results & Data ([facility]) Vital Signs (Past 12 Hours) Vital Signs Temp Pulse Pulse Resp BP BP Pulse Ox 09/18/22 16:00 61 16 128/67 91 09/18/22 15:00 61 16 140/64 92 09/18/22 14:39 20 92 09/18/22 14:03 92 09/18/22 14:03 37.1 C 78 23 107/64 84 L O2 Del Method O2 Flow Rate FiO2 09/18/22 16:00 High Flow Nasal Cannula 40 100 09/18/22 15:00 Free Flow/Blow-by 40 100 09/18/22 14:39 High Flow Nasal Cannula 40 100 09/18/22 14:03 High Flow Nasal Cannula 40 100 09/18/22 14:03 Oxymask 15 Laboratory Results Short CBC 09/18/22 Range/Units 14:22 WBC 10.07 (4.8-10.8) K/ul Hgb 11.7 L (12.0-16.0) g/dl Hct 36.6 (34.1-44.9) % Plt Count 362 (130-400) K/uL BMP 09/18/22 14:22 Sodium 138 Potassium 3.8 Chloride 103 Carbon Dioxide 21 BUN 24 H Creatinine 2.00 H Glucose 239 H Calcium 9.1 Liver Function 09/18/22 Range/Units 14:22 Total Bilirubin 1.6 H (0.2-1.0) mg/dl Direct Bilirubin 0.4 H (0-0.2) mg/dl AST 20 (13-39) U/L ALT 16 (7-52) U/L Alkaline Phosphatase 148 H (34-104) U/L Albumin 4.2 (3.4-5.0) gm/dl Diagnostic Findings Chest X-Ray 09/18/22 14:03 XR chest 1V portable HISTORY: 77 years-old Female cough; shortness of breath acute cough with shortness of breath COMPARISON: Chest radiograph 08/06/2022 TECHNIQUE: AP view of the chest FINDINGS: Cardiac silhouette is enlarged. Left subclavian pacer. Atherosclerosis of the aorta. No pneumothorax. Layering pleural effusions with bibasilar and right midlung consolidation. Pulmonary vascular congestion with interstitial coarsening. Degenerative changes of the shoulders and spine. IMPRESSION: 1. Cardiomegaly with pulmonary edema. 2. Right greater than left layering pleural effusions with bibasilar and right midlung consolidative opacities. ACT 112: Negative or not required by law. The above report was generated using voice recognition software. It may contain grammatical, syntax or spelling errors. Electronically signed by: Catalino Alcocer M.D. 09/18/2022 3:57 PM Supervising Physician Co-Signing Physician Notes Pt seen and examined by me, care coordinated with Esvin Garcia PA-C, pls refer to her note for further detail. Pt is a 77 yo F w/ hx of HFrEF, tachybradycardia syndrome s/p pacemaker placement, paroxysmal atrial fibrillation, prediabetes, hypothyroidism, CKD 4, d ementia, anxiety, hyperlipidemia who presents with shortness of breath that woke up early this morning. Chest x-ray in the ED shows pulmonary vascular congestion. Patient also reports possible episode of aspiration. Recently hospitalized for CHF exacerbation, EF 25%. BNP elevated.In the ED patient reportedly received 1L of normal saline. Then received 40 IV Lasix. She is currently lying in bed, in no acute distress, however on high flow nasal cannula. She is alert oriented, answering questions appropriately. Her sisters are present at the bedside. Lung exam, w/ coarse breath sounds. Heart sounds regular.Abdomen distended, otherwise soft, nontender to palpation.Positive bowel sounds.Patient actually does not have lower extremity edema.Skin is warm and dry. Plan to give additional IV Lasix tonight. Closely monitor on telemetry.For now we will hold on on ordering echocardiogram as recently done. We will further discuss with cardiology. Low-sodium diet. Close I's and O's monitoring. Continue suppl. oxygen, try to wean off. MD [place] (1) HTN (hypertension) 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 type: essential hypertension Qualified Code(s): I10 - Essential (primary) hypertension
--- NOTE | 2022-09-18 18:00 | Electrocardiogram Report ---
Test Reason : Blood Pressure : / mmHG Vent. Rate : 076 BPM Atrial Rate : 075 BPM P-R Int : 130 ms QRS Dur : 184 ms QT Int : 466 ms P-R-T Axes : 020 051 129 degrees QTc Int : 524 ms Poor data quality, interpretation may be adversely affected Atrial-sensed ventricular-paced rhythm Abnormal ECG When compared with ECG of 06-AUG-2022 19:08, Electronic ventricular pacemaker has replaced Electronic atrial pacemaker Confirmed by Lionel Martin ([id number]) on 09/18/2022 6:00:22 PM Referred By: Confirmed By:Rober Martin
[2022-09-18 18:44] LABS: Appearance Urine Clear (Clear); Bacteria Urine Automated Negative (Negative); Bilirubin Urine Negative (Negative); Blood Urine Negative (Negative); Color Urine Yellow; Glucose Urine UA Negative (Negative); Ketones Urine Negative (Negative); Leukocyte Esterase Urine Negative (Negative); Nitrite Urine Negative (Negative); Protein Urine Trace (Negative); RBC Urine Automated 0-4 /hpf (0-4); Specific Gravity Urine 1.011 (1.000-1.030); Urobilinogen Urine Negative (Negative); pH Urine 5.5 (4.5-7.5)
[2022-09-18] MEDS ORDERED: ONDANSETRON INJ 2 MG/ML 2 ML VIAL IV PRN (19:15)
[2022-09-18] MEDS ORDERED: ACETAMINOPHEN 325 MG TAB PO PRN (19:15)
[2022-09-18] MEDS ORDERED: POLYETHYLENE (MIRALAX) 17 GM PACK PO PRN (19:15)
[2022-09-18] MEDS: Patient's HEIGHT &/or WEIGHT Needed SCH ×2 (19:38→19:40)
[2022-09-18] MEDS ORDERED: POTASSIUM CHLORIDE CRTAB 20 MEQ TABCR PO ONE (21:00)
[2022-09-18] MEDS: AMOXICILLIN/CLAVULANATE 500 MG TAB PO SCH (22:19)
[2022-09-19 07:10] LABS: Hematocrit (blood only) 34.2 % (34.1-44.9); Hemoglobin 10.9 g/dl (12.0-16.0); Mean Corpuscular Hemoglobin 32.2 pg (25.0-34.0); Mean Corpuscular Hgb Conc 31.9 g/dL (32.0-36.0); Mean Corpuscular Volume 100.9 fL (80.0-100.0); Mean Platelet Volume 10.5 fL (9.4-12.3); Platelet Count 275 K/uL (130-400); RDW Coefficient of Variation 15.4 % (11.5-14.5); RDW Standard Deviation 57.9 fL (36.4-46.3); Red Blood Count 3.39 M/uL (3.93-5.22); White Blood Count 9.44 K/ul (4.8-10.8)
[2022-09-19 07:30] LABS: BUN Creatinine Ratio 11.9 (10-20); Calcium 8.9 mg/dl (8.5-10.1); Creatinine Clr Calc Pharmacy 21.7 ml/min; Est GFR (African American) 25.7 ml/min; Est GFR (Non-African American) 22.1 ml/min; Magnesium 1.7 mg/dl (1.7-2.4); Phosphorus 4.2 mg/dl (2.5-4.9); Potassium 4.1 mmol/L (3.5-5.1)
[2022-09-19] MEDS: AMOXICILLIN/CLAVULANATE 500 MG TAB PO SCH ×2 (08:50→16:38)
[2022-09-19] MEDS: FUROSEMIDE 40 MG/4 ML VIAL IV SCH ×2 (08:54→16:40)
--- NOTE | 2022-09-19 09:17 | Cardiology Consultation ---
Date of Consultation September 19, 2022 Assessment & Plan (1) Acute on chronic HFrEF (heart failure with reduced ejection fraction): (2) Pleural effusion: (3) Acute respiratory failure with hypoxia: (4) Tachycardia-bradycardia syndrome: (5) Paroxysmal atrial fibrillation: (6) History of right MCA stroke: Plan Medically complex 77-year-old female who initially presented to [facility] emergency department due to shortness of breath. Carries a history of HFrEF and NICM. Chest x-ray showed pulmonary edema with a right greater than left large pleural effusion with right midlung consolidative opacities. Currently being treated for possible aspiration pneumonia. Maintains on high flow nasal cannula oxygen supplementation. -Renal function stable- continue to trend. Recommend continuing Lasix 40 mg twice daily. -Replace electrolytes to maintain a potassium goal 4.0 and magnesium goal of 2.0. -Recommend pulmonary consultation due to ongoing hypoxia and large right pleural effusion- may need a thoracentesis. -2 g sodium diet, daily STANDING weights, strict I&Os. -Restart metoprolol succinate 25 mg daily and amiodarone 200 mg daily to prevent recurrent atrial fibrillation. Restart anticoagulation with Eliquis 2.5 mg twice daily. -Pacer reprogramed to DDD as an outpatient on 09/06 to promote bundle pacing. -Patient carries a history of right MCA stroke and is on Plavix, will defer to primary team should they feel Plavix be restarted. -Blood pressure is well controlled, would recommend refraining from amlodipine due to CHF. Should blood pressures elevated can consider restarting home dose of Imdur 30 mg daily. Case discussed with Dr. La, will follow. Supervising Physician Co-Signing Physician Notes Patient seen and examined at the bedside. Feeling better since admission with IV diuresis. Weight loss recorded via bed scale with minimally negative fluid balance recorded. X-ray demonstrating moderate right side layering pleural effusion with consolidative changes. Concerns regarding aspiration. Patient notes cute onset of shortness of breath yesterday. Noted chills without recorded fevers. Denies any vomiting or choking. No orthopnea or PND. No significant lower extremity edema. Denies any noncompliance with current medications. PE: VSS. Gen: NAD, AAO x3. Heart: Regular rhythm, normal S1-S2, 1/6 systolic ejection murmur heard best at the right second costal space. Lungs: Diminished breath sounds at the bases bilateral, right greater than left. Positive rales in the lower lung de leon. No expiratory wheeze. Extremities: No significant edema. 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 Continue IV diuresis. Consider pulmonary consultation for possible thoracentesis pending clinical response to diuretic therapy. Continue other cardiovascular medications including amiodarone, Eliquis, isosorbide monohydrate, and metoprolol succinate. Assess daily weight, GFR, and electrolytes. Utilize standing scale. History of Present Illness Reason for Consultation: Shortness of breath, decompensated HFrEF Requesting Physician: [place] hospitalist Attending Physician: Gregor Wood MD History of Present Illness Medically complex 77-year-old female presenting to the [facility] emergency department due to shortness of breath. Was last evaluated by the undersigned on 09/06 as an outpatient. Primarily follows with Dr. Blanchard. Patient carries a history of nonischemic cardiomyopathy with LVEF of 40%. Recent echo showed LVEF as low as 25 to 29%. At her last outpatient appointment she was euvolemic on exam- pacemaker settings changed to DDD to promote bundle pacing. She also has known paroxysmal atrial fibrillation, diabetes, hypothyroidism, CKD stage IV, and anxiety. Patient admitted to acute on chronic diastolic and systolic CHF thought to be secondary due to dietary indiscretions on . Patient received 40 mg of IV Lasix x2 on admission. Normally maintained on Lasix 20 mg daily as an outpatient Labs: Mild anemia (hgb 11.7>>10.9), renal function stable (baseline creatinine ~2), electrolytes normal, BNP 2000, high-sensitivity troponin negative (8.2) Chest x-ray: Pulmonary edema, right greater than left pleural effusions with right midlung consolidative opacities Tele: BiV pacing in the 60-70s. Weight: 75.1>>71.2 I&O: +209 mL Upon entrance into the room patient resting in bed comfortably. History limited due to patient being a poor historian due to underlying dementia. Maintains on high flow oxygen. Remains short of breath. Denies any exertional chest pain. No palpitations, dizziness or syncope. Jackson intact. Past medical history: 1. Tachy-leeanne syndrome, status post permanent pacemaker, implanted 08/14/[address] Mcelroy 2. Paroxysmal atrial fibrillation, on amiodaronestarted 07/2020and Eliquis [id number] (HTN, Female, Age, CVA, DM) 3. Nonischemic cardiomyopathy with LVEF of approximately 40%, now reduced to 25-29%. 4. Diabetes 5. 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 6. CKD stage 3-4 7. History of CVA- on plavix Allergies Allergy/AdvReac Type Severity Reaction Status Date / Time codeine Allergy Intermediate "UNSURE IF Verified 09/18/22 17:16 STILL ALLERGIC" Home Medications Medication Instructions Recorded Confirmed Type acetaminophen 325 mg capsule 325 mg PO Q6H PRN pain/fever 06/11/19 09/18/22 History (Tylenol) allopurinol 100 mg tablet 100 mg PO QAM 06/11/19 09/18/22 History atorvastatin 40 mg tablet 40 mg PO QPM #30 tabs 02/24/20 09/18/22 Rx clopidogrel 75 mg tablet 75 mg PO QAM #30 tabs 02/24/20 09/18/22 Rx escitalopram oxalate 10 mg tablet 10 mg PO QAM 08/12/20 09/18/22 History apixaban 2.5 mg tablet (Eliquis) 2.5 mg PO BID #60 tabs 08/17/20 09/18/22 Rx metoprolol succinate 25 mg 25 mg PO QAM #30 tabs 08/17/20 09/18/22 Rx tablet,extended release 24 hr amiodarone 200 mg tablet 200 mg PO QAM 08/03/21 09/18/22 History albuterol sulfate 90 mcg/actuation 2 puff inhalation QID 10/23/21 09/18/22 History aerosol inhaler levothyroxine 100 mcg tablet 100 mcg PO DAILYBB 10/23/21 09/18/22 History ondansetron 4 mg disintegrating 4 mg PO Q8 PRN nausea or vomiting 10/23/21 09/18/22 History tablet amlodipine 5 mg tablet (Norvasc) 2.5 mg PO HS #30 tabs 10/28/21 09/18/22 Rx isosorbide mononitrate 30 mg 30 mg PO QAM #30 tabs 05/11/22 09/18/22 Rx tablet,extended release 24 hr nitroglycerin 0.4 mg sublingual 0.4 mg sublingual UD PRN chest 05/11/22 09/18/22 Rx tablet (Nitrostat) pain #10 tabs famotidine 10 mg tablet 10 mg PO QAM 09/18/22 09/18/22 History furosemide 20 mg tablet 20 mg PO QAM 09/18/22 09/18/22 History Patient History Medical History (Updated 09/19/22 @ 11:00 by SARITHA Lenz) Acute systolic (congestive) heart failure Atrial fibrillation CKD (chronic kidney disease) stage 3, GFR 30-59 ml/min Degenerative disc disease, cervical Dyslipidemia MELQUIADES (generalized anxiety disorder) GERD without esophagitis Hearing loss History of adenomatous polyp of colon History of right MCA stroke HTN (hypertension) Hypertensive cardiomegaly LBBB (left bundle branch block) Pneumonia Type 2 diabetes mellitus Vitamin D deficiency Surgical History History of arthroplasty of left knee History of carpal tunnel surgery History of cholecystectomy History of D&C History of excision of lesion Back - Dr. 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 Feels Safe at Home: Yes Assistive Devices: None Physical Exam Physical Exam: General: No acute distress. A+Ox3. HEENT: Normocephalic. Atraumatic. Conjunctiva and sclera clear. NECK: No carotid bruits. No JVD. Carotid upstrokes are brisk. Heart: RRR. S1 and S2 noted without murmur, rubs, gallops. PMI non displaced. Lungs: Clear to auscultation. No wheezes, rhonchi, rales. Abdomen: Normal bowel sounds. Soft. Nontender. No masses or organomegaly. No abdominal bruits. Extremities: No edema. No clubbing or cyanosis. Pulses: radial=2/4, posterior tibial=2/4, dorsalis pedis = 2/4. NEURO: No focal deficits. PSYCH: Normal. Results & Data ([facility]) Vital Signs (Past 12 Hours) Vital Signs Temp Pulse Pulse Resp BP Pulse Ox O2 Del Method 09/19/22 07:45 36.7 C 60 18 93 High Flow Nasal Cannula 09/19/22 02:30 64 20 96 High Flow Nasal Cannula 09/19/22 03:06 36.7 C 74 20 112/67 95 High Flow Nasal Cannula 09/18/22 23:54 61 09/18/22 23:17 61 20 93 High Flow Nasal Cannula 09/18/22 23:07 36.6 C 61 20 127/68 93 High Flow Nasal Cannula O2 Flow Rate FiO2 09/19/22 07:45 30 70 09/19/22 02:30 30 90 09/19/22 03:06 30 90 09/18/22 23:54 09/18/22 23:17 30 90 09/18/22 23:07 30 90 Laboratory Results Cardiac Enzymes 09/18/22 09/18/22 Range/Units 14:22 17:00 AST 20 (13-39) U/L Troponin I High Sens 8.2 (0-14) pg/ml B-Natriuretic Peptide 2319 H (0-100) pg/ml Coagulation 09/18/22 Range/Units 17:00 B-Natriuretic Peptide 2319 H (0-100) pg/ml CBC 09/18/22 09/19/22 Range/Units 14:22 06:55 WBC 10.07 9.44 (4.8-10.8) K/ul RBC 3.65 L 3.39 L (3.93-5.22) M/uL Hgb 11.7 L 10.9 L (12.0-16.0) g/dl Hct 36.6 34.2 (34.1-44.9) % Plt Count 362 275 (130-400) K/uL Neut # (Auto) 7.33 H (1.4-6.5) K/uL Lymph # (Auto) 1.61 (1.2-3.4) K/uL [place] # (Auto) 1.03 H (0.24-0.82) K/uL Eos # (Auto) 0.01 (0-0.50) K/uL Baso # (Auto) 0.06 (0-0.2) K/uL Comprehensive Metabolic Panel 09/18/22 09/19/22 Range/Units 14:22 06:55 Sodium 138 141 (136-145) mmol/L Potassium 3.8 4.1 (3.5-5.1) mmol/L Chloride 103 106 (98-107) mmol/L Carbon Dioxide 21 27 (21-32) mmol/L BUN 24 H 25 H (6-23) mg/dl Creatinine 2.00 H 2.10 H (0.6-1.2) mg/dl Glucose 239 H 88 (70-99(Fasting)) mg/dl Calcium 9.1 8.9 (8.5-10.1) mg/dl Direct Bilirubin 0.4 H (0-0.2) mg/dl AST 20 (13-39) U/L ALT 16 (7-52) U/L Alkaline Phosphatase 148 H (34-104) U/L Total Protein 7.2 (6.0-8.3) gm/dl Albumin 4.2 (3.4-5.0) gm/dl Intake and Output 09/18/22 09/19/22 09/19/22 22:59 06:59 14:59 Intake Total 1060 / 1160 100 / 1160 Output Total 951 / 951 Balance 1060 / 209 -851 / 209 Intake: IV 1000 / 1000 Sodium Chloride 0.9% 1000ML 1, 1000 / 1000 000 ml @ 999 mls/hr IV .Q1H1M [facility] Rx#:[id number] Oral 60 / 160 100 / 160 Output: Urine Amount (Catheter) 950 / 950 Jackson/Indwelling 950 / 950 # Bowel Movements Other: Weight 70.5 kg 71.2 kg Weight Measurement Method Built in [facility] Built in [facility] Diagnostic Findings Echo 08/24/2022 The left ventricular cavity is severely dilated (LVED volume >80 ml/m^2). The septal motion is abnormal consistent with left bundle branch block. The remaining left ventricular wall segments are severely hypokinetic. The qualitative LV ejection fraction is 25-29% (severely reduced). The left atrium is moderately enlarged. The left ventricular diastolic function is severely abnormal (grade III). Mild mitral regurgitation is present. Mild tricuspid regurgitation is present. Mild pulmonary hypertension is present. The estimated pulmonary artery systolic pressure is 44mm Hg. Echo 04/2022 at [facility] LVEF 20-25% Left ventricle borderline dilated Severe global hypokinesis of left ventricle Left atrium moderately dilated Mild aortic sclerosis without stenosis Mild to moderate MR Right ventricular systolic pressure mildly elevated to 40 mmHg Echo 07/2020 at [facility] LVEF 40% with moderate global hypokinesis of the left ventricle Frequent PVCs
[2022-09-19] MEDS: AMIODARONE 200 MG TAB PO SCH (09:59)
[2022-09-19] MEDS: APIXABAN 2.5 MG TAB PO SCH (09:59)
--- NOTE | 2022-09-19 10:54 | Electrocardiogram Report ---
Test Reason : Blood Pressure : / mmHG Vent. Rate : 065 BPM Atrial Rate : 065 BPM P-R Int : 148 ms QRS Dur : 182 ms QT Int : 540 ms P-R-T Axes : 000 137 142 degrees QTc Int : 561 ms AV dual-paced rhythm Abnormal ECG When compared with ECG of 18-SEP-2022 14:09, Vent. rate has decreased BY 11 BPM Confirmed by Lionel Martin ([id number]) on 09/19/2022 10:53:36 AM Referred By: REFERRED SELF Confirmed By:Rober Martin
--- NOTE | 2022-09-19 11:10 | Hospitalist Progress Note ---
Date of Service September 19, 2022 Assessment & Plan (1) Acute respiratory failure with hypoxia: (2) Pulmonary edema: (3) Acute exacerbation of CHF (congestive heart failure): (4) CKD (chronic kidney disease), stage IV: (5) Tachycardia-bradycardia syndrome: (6) Paroxysmal atrial fibrillation: (7) Aspiration pneumonia: (8) HTN (hypertension): (9) History of right MCA stroke: Plan This is a 77-year-old female with PMH of HFrEF, tachybradycardia syndrome status post pacemaker placement, paroxysmal atrial fibrillation, prediabetes, hypothyroidism, CKD 4, dementia, anxiety, hyperlipidemia and other medical problems listed below who presents with shortness of breath when she woke up this morning and was found to have decompensated heart failure. Acute hypoxic respiratory failure Acute decompensated heart failure Pulmonary edema SOB since this morning after increased sodium over the past few days Saturating at 93% on high flow nasal cannula oxygen 30 L/min on admission BNP 2,319 CXR with 1. Cardiomegaly with pulmonary edema. 2. Right greater than left layering pleural effusions with bibasilar and right midlung consolidative opacities Received 40 mg IV Lasix in the ED and another dose of 40 this evening Recent echo from earlier this month with EF 25-29% Strict I&Os with gooden in place, daily weights, low sodium diet, cardiology consulted Bipap if needed overnight, confirmed DNI status poss. pulm. consult for poss. thoracentesis Possible aspiration pneumonia H/o aspiration in the past, ? episode a few days ago Covering empirically with Augmentin CKD IV Creatinine baseline ~2 Tachybradycardia syndrome S/p pacemaker placement. Interrogation ordered Atrial fibrillation Continue amiodarone, Toprol, Eliquis for anticoagulation HTN Normotensive. Continue amlodipine, Toprol Prediabetes Carb consistent diet, monitor BSG on AM BMP, sliding scale insulin if needed History of CVA Continue Plavix, eliquis DVT Ppx: Eliquis Code status: DNR/DNI PCP: Dr. Antunez Dispo: PCU Admission and Anticipated Discharge Date Admission Date: September 18, 2022 Subjective Pt seen in follow up of resp. failure, CHF exacerbation Currently lying in bed, in no acute distress. On admission she was on high flow, currently on 6 L nasal cannula Patient's sisters are present at the bedside and updated Patient denies any fevers chills chest pain palpitations. She denies any increased shortness of breath, has minimal cough. No abdominal pain, nausea or vomiting. Review of Systems Review of Systems: All systems reviewed & are unremarkable except as noted in Subjective Physical Exam Constitutional: WD/WN, vitals as above (on NC 6L) Eyes: PERRL, conjunctivae normal, anicteric sclerae ENMT: external ear and nose normal, oropharynx normal Neck: trachea midline, no thyromegaly Respiratory: no respiratory distress and no labored breathing (+ course breath sounds, diminished at bases) Cardiovascular: RRR, no murmur, no edema Chest (Breasts): Chest: normal inspection of chest Gastrointestinal (Abdomen): normal bowel sounds, soft, nontender, no hepatosplenomegaly Musculoskeletal: no cyanosis or clubbing, extremities motor strength 5/5 Skin: no rashes, warm and dry Neurologic: PERRL, EOMI, accommodation nl, no face palsy, no dysarthria Psychiatric: A+Ox3, euthymic affect Genitourinary: no CVA tenderness Lymphatic: no lymphedema Results & Data Results & Data ([facility]) Vital Signs (Past 12 Hours) Vital Signs Temp Pulse Pulse Resp BP Pulse Ox O2 Del Method 09/19/22 10:59 36.8 C 60 20 96/57 L 95 High Flow Nasal Cannula 09/19/22 08:00 60 09/19/22 07:20 62 18 93 High Flow Nasal Cannula 09/19/22 07:45 36.7 C 60 18 93 High Flow Nasal Cannula 09/19/22 02:30 64 20 96 High Flow Nasal Cannula 09/19/22 03:06 36.7 C 74 20 112/67 95 High Flow Nasal Cannula 09/18/22 23:54 61 09/18/22 23:17 61 20 93 High Flow Nasal Cannula O2 Flow Rate FiO2 09/19/22 10:59 30 65 09/19/22 08:00 09/19/22 07:20 30 70 09/19/22 07:45 30 70 09/19/22 02:30 30 90 09/19/22 03:06 30 90 09/18/22 23:54 09/18/22 23:17 30 90 Laboratory Results 09/19/22 09/19/22 09/19/22 Range/Units 07:48 06:55 06:55 WBC 9.44 (4.8-10.8) K/ul RBC 3.39 L (3.93-5.22) M/uL Hgb 10.9 L (12.0-16.0) g/dl Hct 34.2 (34.1-44.9) % MCV 100.9 H (80.0-100.0) fL MCH 32.2 (25.0-34.0) pg MCHC 31.9 L (32.0-36.0) g/dL RDW Std Deviation 57.9 H (36.4-46.3) fL RDW Coeff of Etta 15.4 H (11.5-14.5) % Plt Count 275 (130-400) K/uL MPV 10.5 (9.4-12.3) fL Immature Gran % (Auto) % Neut % (Auto) % Lymph % (Auto) % [place] % (Auto) % Eos % (Auto) % Baso % (Auto) % Neut # (Auto) (1.4-6.5) K/uL Lymph # (Auto) (1.2-3.4) K/uL [place] # (Auto) (0.24-0.82) K/uL Eos # (Auto) (0-0.50) K/uL Baso # (Auto) (0-0.2) K/uL Immature Gran # (Auto) (0.00-0.02) K/uL ABG pH (7.35-7.45) ABG pCO2 (35-46) mmHg ABG pO2 (80-95) mmHg ABG HCO3 (19-24) mmol/L ABG O2 Saturation (90-95) % ABG Base Excess (-9-1.8) mEq/L Roman Test (Pos) Oxygen Given Sodium 141 (136-145) mmol/L Potassium 4.1 (3.5-5.1) mmol/L Chloride 106 (98-107) mmol/L Carbon Dioxide 27 (21-32) mmol/L Anion Gap 8 (3-11) BUN 25 H (6-23) mg/dl Creatinine 2.10 H (0.6-1.2) mg/dl Est Cr Clr Drug Dosing 21.7 Est GFR ( Amer) 25.7 ml/min Est GFR (Non-Af Amer) 22.1 ml/min BUN/Creatinine Ratio 11.9 (10-20) Glucose 88 (70-99(Fasting)) mg/dl POC Glucose 103 H (70-99) mg/dl Lactate (0.4-2.0) mmol/L Calcium 8.9 (8.5-10.1) mg/dl Phosphorus 4.2 (2.5-4.9) mg/dl Magnesium 1.7 (1.7-2.4) mg/dl Total Bilirubin (0.2-1.0) mg/dl Direct Bilirubin (0-0.2) mg/dl AST (13-39) U/L ALT (7-52) U/L Alkaline Phosphatase (34-104) U/L Troponin I High Sens (0-14) pg/ml B-Natriuretic Peptide (0-100) pg/ml Total Protein (6.0-8.3) gm/dl Albumin (3.4-5.0) gm/dl Procalcitonin (0-0.5) ng/ml Urine Color Urine Appearance (Clear) Urine pH (4.5-7.5) Ur Specific [place] (1.000-1.030) Urine Protein (Negative) Urine Glucose (UA) (Negative) Urine Ketones (Negative) Urine Blood (Negative) Urine Nitrite (Negative) Urine Bilirubin (Negative) Urine Urobilinogen (Negative) Ur Leukocyte Esterase (Negative) Urine WBC (Auto) (0-5) /hpf Urine RBC (Auto) (0-4) /hpf U Hyaline Cast (Auto) (0-5) /lpf U Epithel Cells (Auto) (0-5) /lpf Urine Bacteria (Auto) (Negative) SARS-CoV-2 (PCR) (Negative) Influenza Type A (PCR) (Neg) Influenza Type B (PCR) (Neg) RSV (RT-PCR) (Neg) 09/18/22 09/18/22 09/18/22 Range/Units 18:00 17:00 16:36 WBC (4.8-10.8) K/ul RBC (3.93-5.22) M/uL Hgb (12.0-16.0) g/dl Hct (34.1-44.9) % MCV (80.0-100.0) fL MCH (25.0-34.0) pg MCHC (32.0-36.0) g/dL RDW Std Deviation (36.4-46.3) fL RDW Coeff of Etta (11.5-14.5) % Plt Count (130-400) K/uL MPV (9.4-12.3) fL Immature Gran % (Auto) % Neut % (Auto) % Lymph % (Auto) % [place] % (Auto) % Eos % (Auto) % Baso % (Auto) % Neut # (Auto) (1.4-6.5) K/uL Lymph # (Auto) (1.2-3.4) K/uL [place] # (Auto) (0.24-0.82) K/uL Eos # (Auto) (0-0.50) K/uL Baso # (Auto) (0-0.2) K/uL Immature Gran # (Auto) (0.00-0.02) K/uL ABG pH (7.35-7.45) ABG pCO2 (35-46) mmHg ABG pO2 (80-95) mmHg ABG HCO3 (19-24) mmol/L ABG O2 Saturation (90-95) % ABG Base Excess (-9-1.8) mEq/L Roman Test (Pos) Oxygen Given Sodium (136-145) mmol/L Potassium (3.5-5.1) mmol/L Chloride (98-107) mmol/L Carbon Dioxide (21-32) mmol/L Anion Gap (3-11) BUN (6-23) mg/dl Creatinine (0.6-1.2) mg/dl Est Cr Clr Drug Dosing Est GFR ( Amer) ml/min Est GFR (Non-Af Amer) ml/min BUN/Creatinine Ratio (10-20) Glucose (70-99(Fasting)) mg/dl POC Glucose (70-99) mg/dl Lactate 1.4 (0.4-2.0) mmol/L Calcium (8.5-10.1) mg/dl Phosphorus (2.5-4.9) mg/dl Magnesium (1.7-2.4) mg/dl Total Bilirubin (0.2-1.0) mg/dl Direct Bilirubin (0-0.2) mg/dl AST (13-39) U/L ALT (7-52) U/L Alkaline Phosphatase (34-104) U/L Troponin I High Sens (0-14) pg/ml B-Natriuretic Peptide 2319 H (0-100) pg/ml Total Protein (6.0-8.3) gm/dl Albumin (3.4-5.0) gm/dl Procalcitonin (0-0.5) ng/ml Urine Color Yellow Urine Appearance Clear (Clear) Urine pH 5.5 (4.5-7.5) Ur Specific [place] 1.011 (1.000-1.030) Urine Protein Trace H (Negative) Urine Glucose (UA) Negative (Negative) Urine Ketones Negative (Negative) Urine Blood Negative (Negative) Urine Nitrite Negative (Negative) Urine Bilirubin Negative (Negative) Urine Urobilinogen Negative (Negative) Ur Leukocyte Esterase Negative (Negative) Urine WBC (Auto) 1-5 (0-5) /hpf Urine RBC (Auto) 0-4 (0-4) /hpf U Hyaline Cast (Auto) 1-5 (0-5) /lpf U Epithel Cells (Auto) 10-20 H (0-5) /lpf Urine Bacteria (Auto) Negative (Negative) SARS-CoV-2 (PCR) (Negative) Influenza Type A (PCR) (Neg) Influenza Type B (PCR) (Neg) RSV (RT-PCR) (Neg) 09/18/22 09/18/22 09/18/22 Range/Units 14:22 14:22 14:22 WBC (4.8-10.8) K/ul RBC (3.93-5.22) M/uL Hgb (12.0-16.0) g/dl Hct (34.1-44.9) % MCV (80.0-100.0) fL MCH (25.0-34.0) pg MCHC (32.0-36.0) g/dL RDW Std Deviation (36.4-46.3) fL RDW Coeff of Etta (11.5-14.5) % Plt Count (130-400) K/uL MPV (9.4-12.3) fL Immature Gran % (Auto) % Neut % (Auto) % Lymph % (Auto) % [place] % (Auto) % Eos % (Auto) % Baso % (Auto) % Neut # (Auto) (1.4-6.5) K/uL Lymph # (Auto) (1.2-3.4) K/uL [place] # (Auto) (0.24-0.82) K/uL Eos # (Auto) (0-0.50) K/uL Baso # (Auto) (0-0.2) K/uL Immature Gran # (Auto) (0.00-0.02) K/uL ABG pH 7.38 (7.35-7.45) ABG pCO2 36 (35-46) mmHg ABG pO2 68 L (80-95) mmHg ABG HCO3 21 (19-24) mmol/L ABG O2 Saturation 91.8 (90-95) % ABG Base Excess -3.3 (-9-1.8) mEq/L Roman Test Pos (Pos) Oxygen Given 40% Sodium (136-145) mmol/L Potassium (3.5-5.1) mmol/L Chloride (98-107) mmol/L Carbon Dioxide (21-32) mmol/L Anion Gap (3-11) BUN (6-23) mg/dl Creatinine (0.6-1.2) mg/dl Est Cr Clr Drug Dosing Est GFR ( Amer) ml/min Est GFR (Non-Af Amer) ml/min BUN/Creatinine Ratio (10-20) Glucose (70-99(Fasting)) mg/dl POC Glucose (70-99) mg/dl Lactate 2.1 H* (0.4-2.0) mmol/L Calcium (8.5-10.1) mg/dl Phosphorus (2.5-4.9) mg/dl Magnesium (1.7-2.4) mg/dl Total Bilirubin (0.2-1.0) mg/dl Direct Bilirubin (0-0.2) mg/dl AST (13-39) U/L ALT (7-52) U/L Alkaline Phosphatase (34-104) U/L Troponin I High Sens (0-14) pg/ml B-Natriuretic Peptide (0-100) pg/ml Total Protein (6.0-8.3) gm/dl Albumin (3.4-5.0) gm/dl Procalcitonin < 0.05 (0-0.5) ng/ml Urine Color Urine Appearance (Clear) Urine pH (4.5-7.5) Ur Specific [place] (1.000-1.030) Urine Protein (Negative) Urine Glucose (UA) (Negative) Urine Ketones (Negative) Urine Blood (Negative) Urine Nitrite (Negative) Urine Bilirubin (Negative) Urine Urobilinogen (Negative) Ur Leukocyte Esterase (Negative) Urine WBC (Auto) (0-5) /hpf Urine RBC (Auto) (0-4) /hpf U Hyaline Cast (Auto) (0-5) /lpf U Epithel Cells (Auto) (0-5) /lpf Urine Bacteria (Auto) (Negative) SARS-CoV-2 (PCR) (Negative) Influenza Type A (PCR) (Neg) Influenza Type B (PCR) (Neg) RSV (RT-PCR) (Neg) 09/18/22 09/18/22 09/18/22 Range/Units 14:22 14:22 14:10 WBC 10.07 (4.8-10.8) K/ul RBC 3.65 L (3.93-5.22) M/uL Hgb 11.7 L (12.0-16.0) g/dl Hct 36.6 (34.1-44.9) % MCV 100.3 H (80.0-100.0) fL MCH 32.1 (25.0-34.0) pg MCHC 32.0 (32.0-36.0) g/dL RDW Std Deviation 57.4 H (36.4-46.3) fL RDW Coeff of Etta 15.6 H (11.5-14.5) % Plt Count 362 (130-400) K/uL MPV 10.9 (9.4-12.3) fL Immature Gran % (Auto) 0.3 % Neut % (Auto) 72.8 % Lymph % (Auto) 16.0 % [place] % (Auto) 10.2 % Eos % (Auto) 0.1 % Baso % (Auto) 0.6 % Neut # (Auto) 7.33 H (1.4-6.5) K/uL Lymph # (Auto) 1.61 (1.2-3.4) K/uL [place] # (Auto) 1.03 H (0.24-0.82) K/uL Eos # (Auto) 0.01 (0-0.50) K/uL Baso # (Auto) 0.06 (0-0.2) K/uL Immature Gran # (Auto) 0.03 H (0.00-0.02) K/uL ABG pH (7.35-7.45) ABG pCO2 (35-46) mmHg ABG pO2 (80-95) mmHg ABG HCO3 (19-24) mmol/L ABG O2 Saturation (90-95) % ABG Base Excess (-9-1.8) mEq/L Roman Test (Pos) Oxygen Given Sodium 138 (136-145) mmol/L Potassium 3.8 (3.5-5.1) mmol/L Chloride 103 (98-107) mmol/L Carbon Dioxide 21 (21-32) mmol/L Anion Gap 14 H (3-11) BUN 24 H (6-23) mg/dl Creatinine 2.00 H (0.6-1.2) mg/dl Est Cr Clr Drug Dosing Not Reportable Est GFR ( Amer) 27.2 ml/min Est GFR (Non-Af Amer) 23.5 ml/min BUN/Creatinine Ratio 12.0 (10-20) Glucose 239 H (70-99(Fasting)) mg/dl POC Glucose (70-99) mg/dl Lactate (0.4-2.0) mmol/L Calcium 9.1 (8.5-10.1) mg/dl Phosphorus (2.5-4.9) mg/dl Magnesium 1.8 (1.7-2.4) mg/dl Total Bilirubin 1.6 H (0.2-1.0) mg/dl Direct Bilirubin 0.4 H (0-0.2) mg/dl AST 20 (13-39) U/L ALT 16 (7-52) U/L Alkaline Phosphatase 148 H (34-104) U/L Troponin I High Sens 8.2 (0-14) pg/ml B-Natriuretic Peptide (0-100) pg/ml Total Protein 7.2 (6.0-8.3) gm/dl Albumin 4.2 (3.4-5.0) gm/dl Procalcitonin (0-0.5) ng/ml Urine Color Urine Appearance (Clear) Urine pH (4.5-7.5) Ur Specific [place] (1.000-1.030) Urine Protein (Negative) Urine Glucose (UA) (Negative) Urine Ketones (Negative) Urine Blood (Negative) Urine Nitrite (Negative) Urine Bilirubin (Negative) Urine Urobilinogen (Negative) Ur Leukocyte Esterase (Negative) Urine WBC (Auto) (0-5) /hpf Urine RBC (Auto) (0-4) /hpf U Hyaline Cast (Auto) (0-5) /lpf U Epithel Cells (Auto) (0-5) /lpf Urine Bacteria (Auto) (Negative) SARS-CoV-2 (PCR) NEGATIVE (Negative) Influenza Type A (PCR) Negative (Neg) Influenza Type B (PCR) Negative (Neg) RSV (RT-PCR) Negative (Neg) Medications Administered Current Inpatient Medications Acetaminophen (Acetaminophen 325 Mg Tab) 650 mg PO Q4H PRN PRN Reason: Pain or Fever Stop: 10/18/22 19:14 Amiodarone HCl ([facility] 200 Mg Tab) [facility] [place]: 10/19/22 09:29 Last Admin: 09/19/22 09:59 Dose: 200 mg Amoxicillin/Clavulanate Potassium (Amoxicillin/Clavulanate 500 Mg Tab) 1 tab PO BIDM [facility]; Protocol Stop: 09/25/22 20:59 Last Admin: 09/19/22 08:50 Dose: 1 tab Apixaban (Apixaban 2.5 Mg Tab) 2.5 mg PO BID [facility] Stop: 10/19/22 09:29 Last Admin: 09/19/22 09:59 Dose: 2.5 mg Furosemide (Furosemide 40 Mg/4 Ml Vial) 40 mg IV BID17 [facility] Stop: 10/19/22 08:59 Last Admin: 09/19/22 08:54 Dose: 40 mg Magnesium Oxide (Magnesium Oxide 400 Mg Tab) 400 mg PO BID [facility] Stop: 10/19/22 10:54 Metoprolol Succinate (Metoprolol Succ 25mg Ext Rel Tab) 25 mg PO QAM [facility] Stop: 10/19/22 09:29 Ondansetron HCl (Ondansetron Inj 2 Mg/Ml 2 Ml Vial) 4 mg IV Q6H PRN PRN Reason: Nausea Stop: 10/18/22 19:14 Polyethylene Glycol (Polyethylene (Miralax) 17 Gm Pack) 17 gm PO DAILY PRN PRN Reason: Constipation Stop: 10/18/22 19:14 (1) HTN (hypertension) 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 type: essential hypertension Qualified Code(s): I10 - Essential (primary) hypertension
[2022-09-19] MEDS: MAGNESIUM OXIDE 400 MG TAB PO SCH ×2 (11:12→19:46)
[2022-09-19] MEDS: METOPROLOL SUCC 25MG EXT REL TAB PO SCH (11:12)
--- NOTE | 2022-09-19 11:31 | XRay Report ---
XR chest 1V portable HISTORY: 77 years-old Female follow up acute shortness of breath COMPARISON: 09/18/2022 TECHNIQUE: AP view of the chest FINDINGS: Cardiac silhouette is enlarged. Left subclavian pacer. Atherosclerosis of the aorta. No pneumothorax. Layering pleural effusions with bibasilar and right midlung consolidation has slightly improved. Pul monary vascular congestion with interstitial coarsening appears generally stable. Cholecystectomy. De generative changes of the shoulders and spine. IMPRESSION: 1. Cardiomegaly with mild pulmonary edema. 2. Right greater than left layering pleural effusions with bibasilar and right midlung consolidative opacities are again noted. There is slightly improved aeration of the right lung. ACT 112: Negative or not required by law. The above report was generated using voice recognition software. It may contain grammatical, syntax o r spelling errors. Electronically signed by: Catalino Alcocer M.D. 09/19/2022 11:30 AM
--- NOTE | 2022-09-19 14:36 | Pulmonary Consultation ---
Date of Consultation September 19, 2022 Assessment & Plan (1) Pleural effusion: (2) Acute on chronic HFrEF (heart failure with reduced ejection fraction): (3) Acute respiratory failure with hypoxia: Plan Chest x-ray 09/19/2022 personally reviewed: Portable film, bilateral costophren ic and cardiophrenic angles are blunted, increased cardiac silhouette, no clear lung infiltrate appreciated 2D echo 05/08/2022: EF 20-25%, RVSP 30-40 mmHg, mild to moderate MR, severe global hypokinesis --Acute hypoxic respiratory failure Etiology is underlying systolic CHF with bilateral pleural effusion Procalcitonin negative BNP 2319 Covid-19 PCR negative, influenza A/B negative RSV negative Would recommend continue with diuresis to keep the patient negative balance BiPAP nightly and as needed shortness of breath Bedside ultrasound 09/19/2022:- Right lung: Small to moderate right-sided pleural effusion with dependent atelectasis, B-lines posteriorly, a lines anteriorly Left lung: Minimal left-sided pleural effusion, B-lines posteriorly, a lines anteriorly -- Bilateral pleural effusion From underlying systolic CHF -- Pulmonary hypertension RVSP 30-40 mmHg Type II --A. fib On Eliquis Plan: Continue with diuretics, aim for - 750 ml tp -1 L on a daily basis BiPAP nightly and as needed shortness of breath Continue with O2 supplementation to keep oxygen saturation between 90-92% No indication for thoracentesis right now. I will hold apixaban in case if we have to do thoracentesis Likely due to of patient having pneumonia is low. BiPAP nightly and as needed shortness of breath Case was discussed with Dr. Wood Please note the above document was generated using voice recognition software. It may contain grammatical, syntax or spelling errors.Any formal questions or concerns about the content, text or information contained within the body of this dictation should be directly addressed to the provider for clarification. History of Present Illness Attending Physician: Gregor Wood MD History of Present Illness 77-year-old female present to the hospital for shortness of breath Past medical history: Systolic CHF, A. fib on amiodarone and apixaban, tachybradycardia syndrome s/p pacemaker, hypertension, history of CVA, CKD Pulmonary consulted for pulmonary effusion At the time of examination patient was saturating 98% on 6 L nasal cannula I was able to go down to 4 L and she was still able to maintain a saturation of 94-95% She says she is feeling better when it comes to her breathing since coming to the hospital Denies any chest pain, no headache, no nausea, no vomiting Fair appetite. She is making good amount of urine. Social history: Lifetime non-smoker Allergies Allergy/AdvReac Type Severity Reaction Status Date / Time codeine Allergy Intermediate "UNSURE IF Verified 09/18/22 17:16 STILL ALLERGIC" Home Medications Medication Instructions Recorded Confirmed Type acetaminophen 325 mg capsule 325 mg PO Q6H PRN pain/fever 06/11/19 09/18/22 History (Tylenol) allopurinol 100 mg tablet 100 mg PO QAM 06/11/19 09/18/22 History atorvastatin 40 mg tablet 40 mg PO QPM #30 tabs 02/24/20 09/18/22 Rx clopidogrel 75 mg tablet 75 mg PO QAM #30 tabs 02/24/20 09/18/22 Rx escitalopram oxalate 10 mg tablet 10 mg PO QAM 08/12/20 09/18/22 History apixaban 2.5 mg tablet (Eliquis) 2.5 mg PO BID #60 tabs 08/17/20 09/18/22 Rx metoprolol succinate 25 mg 25 mg PO QAM #30 tabs 08/17/20 09/18/22 Rx tablet,extended release 24 hr amiodarone 200 mg tablet 200 mg PO QAM 08/03/21 09/18/22 History albuterol sulfate 90 mcg/actuation 2 puff inhalation QID 10/23/21 09/18/22 History aerosol inhaler levothyroxine 100 mcg tablet 100 mcg PO DAILYBB 10/23/21 09/18/22 History ondansetron 4 mg disintegrating 4 mg PO Q8 PRN nausea or vomiting 10/23/21 09/18/22 History tablet amlodipine 5 mg tablet (Norvasc) 2.5 mg PO HS #30 tabs 10/28/21 09/18/22 Rx isosorbide mononitrate 30 mg 30 mg PO QAM #30 tabs 05/11/22 09/18/22 Rx tablet,extended release 24 hr nitroglycerin 0.4 mg sublingual 0.4 mg sublingual UD PRN chest 05/11/22 09/18/22 Rx tablet (Nitrostat) pain #10 tabs famotidine 10 mg tablet 10 mg PO QAM 09/18/22 09/18/22 History furosemide 20 mg tablet 20 mg PO QAM 09/18/22 09/18/22 History Patient History Medical History (Updated 09/19/22 @ 11:00 by SARITHA Lenz) Acute systolic (congestive) heart failure Atrial fibrillation CKD (chronic kidney disease) stage 3, GFR 30-59 ml/min Degenerative disc disease, cervical Dyslipidemia MELQUIADES (generalized anxiety disorder) GERD without esophagitis Hearing loss History of adenomatous polyp of colon History of right MCA stroke HTN (hypertension) Hypertensive cardiomegaly LBBB (left bundle branch block) Pneumonia Type 2 diabetes mellitus Vitamin D deficiency Surgical History History of arthroplasty of left knee History of carpal tunnel surgery History of cholecystectomy History of D&C History of excision of lesion Back - Dr. Tucker Family History Other Diabetes Heart disease Social History Smoking Status: Never smoker Second Hand Exposure: No; Hx Alcohol Use: No Hx Substance Use: No Preferred Language: Polish Communication Ability: Effective Hearing Ability: Hard of Hearing Mathematical Statistician Required: No Beliefs That Will Affect Care: None marital status: / Current Living Situation: Alone Current Living Situation Comment: Son Rajeev comes and goes. Feels Safe at Home: Yes Assistive Devices: None Review of Systems Review of Systems: All systems reviewed & are unremarkable except as noted in HPI & below Physical Exam Physical Exam: Constitutional: No acute distress HEENT: EOMI, PERRLA Respiratory system: Decreased air entry bilaterally, no wheeze, rhonchi, positive crackles bilaterally more on the right side CVS: S1-S2 positive, no murmurs or gallops Abdomen: Soft, nontender, nondistended, positive bowel sounds x4 Extremities: +2 pulses bilaterally radialis/ dorsalis pedis, no cyanosis, no edema Neuro: Awake alert oriented x3 Psych: Normal mood and affect G/U: Positive Jackson Skin: no rashes, warm and dry Lymphatic: no cervical or axillary lymphadenopathy Results & Data Results & Data ([facility]) Vital Signs (Past 12 Hours) Vital Signs Temp Pulse Pulse Resp BP Pulse Ox O2 Del Method 09/19/22 10:59 36.8 C 60 20 96/57 L 95 High Flow Nasal Cannula 09/19/22 08:00 60 09/19/22 07:20 62 18 93 High Flow Nasal Cannula 09/19/22 07:45 36.7 C 60 18 93 High Flow Nasal Cannula 09/19/22 03:06 36.7 C 74 20 112/67 95 High Flow Nasal Cannula O2 Flow Rate FiO2 09/19/22 10:59 30 65 09/19/22 08:00 09/19/22 07:20 30 70 09/19/22 07:45 30 70 09/19/22 03:06 30 90 Laboratory Results 09/19/22 06:55 09/19/22 06:55 PG Care Time/CCT Total # of Minutes Spent Total Time Spent with Patient: Total time spent is greater than 50% in coordination of care (as documented) at patient's floor/unit and/or counseling patient: Coding Level of Care Code 75868 Initial Inpt Care Lvl 3 Diagnoses Pleural effusion J90 Acute on chronic HFrEF (heart failure with reduced ejection fraction) I50.23 Acute respiratory failure with hypoxia J96.01
[2022-09-19] MEDS: CLOPIDOGREL BISULFATE 75 MG TAB PO SCH (14:59)
[2022-09-19 19:58] LABS: A calco-baum cmplx NotReported Not Detected (NotDetected); Bact fragilis Not Reported Not Detected (NotDetected); C auris Not Reported Not Detected (NotDetected); Calbicans Not Reported Not Detected (NotDetected); Candida glabrata Not Reported Not Detected (NotDetected); Candida krusei Not Reported Not Detected (NotDetected); Cneoformans/gatti Not Reported Not Detected (NotDetected); Cparapsilosis Not Reported Not Detected (NotDetected); Ctropicalis Not Reported Not Detected (NotDetected); E cloacae compx Not Reported Not Detected (NotDetected); Efaecalis Not Reported Not Detected (NotDetected); Efaecium Not Reported Not Detected (NotDetected); Enterobacterales Not Reported Not Detected (NotDetected); Escherichia coli Not Reported Not Detected (NotDetected); H influenzae Not Reported Not Detected (NotDetected); K aerogenes Not Reported Not Detected (NotDetected); Koxytoca Not Reported Not Detected (NotDetected); Kpneumoniae grp Not Reported Not Detected (NotDetected); Lmonocyt Not Reported Not Detected (NotDetected); N meningitidis Not Reported Not Detected (NotDetected); P aeruginosa Not Reported Not Detected (NotDetected); Proteus spp Not Reported Not Detected (NotDetected); Salmonella spp Not Reported Not Detected (NotDetected); Smarcescens Not Reported Not Detected (NotDetected); Staph lugdunensis Not Reported Not Detected (NotDetected); Staph spp. Not Reported Not Detected (NotDetected); Staphaureus Not Reported Not Detected (NotDetected); Staphepi Not Reported Not Detected (NotDetected); Stenmaltophilia Not Reported Not Detected (NotDetected); Strep agal(GrpB) Not Reported Not Detected (NotDetected); Strep pneum Not Reported Not Detected (NotDetected); Strep pyog (GrpA) Not Reported Not Detected (NotDetected); Strep spp Not Reported Not Detected (NotDetected)
[2022-09-19] MEDS ORDERED: VANCOMYCIN CONSULT ACTIVE PRN (20:39)
[2022-09-19] MEDS ORDERED: VANCOMYCIN HCL 1,000 MG in SODIUM CHLORIDE 0.9% 250 ML IV SCH (20:45)
[2022-09-19] MEDS ORDERED: VANCOMYCIN HCL 1,500 MG in SODIUM CHLORIDE 0.9% 500 ML IV SCH (21:00)
[2022-09-19] MEDS ORDERED: VANCOMYCIN HCL 1,500 MG in SODIUM CHLORIDE 0.9% 500 ML IV ONE (23:00)
[2022-09-20 05:58] LABS: Hematocrit (blood only) 32.3 % (34.1-44.9); Hemoglobin 10.5 g/dl (12.0-16.0); Mean Corpuscular Hemoglobin 32.1 pg (25.0-34.0); Mean Corpuscular Hgb Conc 32.5 g/dL (32.0-36.0); Mean Corpuscular Volume 98.8 fL (80.0-100.0); Mean Platelet Volume 10.7 fL (9.4-12.3); Platelet Count 253 K/uL (130-400); RDW Coefficient of Variation 15.6 % (11.5-14.5); RDW Standard Deviation 56.8 fL (36.4-46.3); Red Blood Count 3.27 M/uL (3.93-5.22); White Blood Count 9.06 K/ul (4.8-10.8)
[2022-09-20 06:28] LABS: BUN Creatinine Ratio 12.4 (10-20); Calcium 8.5 mg/dl (8.5-10.1); Creatinine Clr Calc Pharmacy 17.7 ml/min; Est GFR (Non-African American) 17.3 ml/min; Magnesium 1.7 mg/dl (1.7-2.4); Phosphorus 3.5 mg/dl (2.5-4.9); Potassium 3.7 mmol/L (3.5-5.1)
--- NOTE | 2022-09-20 08:41 | Cardiology Progress Note ---
Date of Service September 20, 2022 Assessment & Plan (1) Acute on chronic HFrEF (heart failure with reduced ejection fraction): (2) Pleural effusion: (3) Acute respiratory failure with hypoxia: (4) Tachycardia-bradycardia syndrome: (5) Paroxysmal atrial fibrillation: (6) History of right MCA stroke: Plan Medically complex 77-year-old female who initially presented to [facility] emergency department due to shortness of breath. Carries a history of HFrEF and NICM. Chest x-ray showed pulmonary edema with a right greater than left large pleural effusion with right midlung consolidative opacities. Currently being treated for possible aspiration pneumonia. Maintains on high flow nasal cannula oxygen supplementation. -sCr trending upwards (2.0>>2.5)- continue to trend. Currently on Lasix 40 mg twice daily-we will hold afternoon dose due to increasing creatinine. Plan to repeat a BMP in the morning. -Replace electrolytes to maintain a potassium goal 4.0 and magnesium goal of 2.0. -Appreciate pulmonary input. Consultation due to ongoing hypoxia and large right pleural effusion- may need a thoracentesis should IV diuresis not be sufficient. -2 g sodium diet, daily STANDING weights, strict I&Os. -Continue metoprolol succinate 25 mg daily and amiodarone 200 mg daily to prevent recurrent atrial fibrillation. Continue anticoagulation with Eliquis 2.5 mg twice daily- should thoracentesis be necessary Eliquis will be held per pulmonary. -Pacer reprogramed to DDD as an outpatient on 09/06 to promote bundle pacing. -Patient carries a history of right MCA stroke and is on Plavix. -Blood pressure is well controlled, would recommend refraining from amlodipine due to CHF. Should blood pressures elevated can consider restarting home dose of Imdur 30 mg daily. Case discussed with Dr. La, will follow. Admission and Anticipated Discharge Date Admission Date: September 18, 2022 Supervising Physician Co-Signing Physician Notes Patient seen and examined at the bedside. Oxygen requirements improved. Fluid balance -255 cc, however, serum creatinine trending upward. PE: VSS. Gen: NAD, AAO x3. Heart: Regular rhythm, normal S1-S2, 1/6 systolic ejection murmur heard best at the right second costal space. Lungs: Diminished breath sounds at the bases bilateral, right greater than left. Positive rales in the lower lung de leon. No expiratory wheeze. Extremities: No significant edema. A/P: Agree with above IMPROVEMENT ANALYST history, physical, assessment and plan. Hold IV diuresis due to renal insufficiency. Repeat lab studies in a.m. Further aggressive diuresis likely limited by underlying renal insufficiency. Will discuss with pulmonary tomorrow pending review of a.m. labs whether to consider thoracentesis. Continue other cardiovascular medications including amiodarone, Eliquis, isosorbide monohydrate, and metoprolol succinate. Assess daily weight, GFR, and electrolytes. Utilize standing scale. Subjective Medically complex 77-year-old female who initially presented to [facility] emergency department due to shortness of breath. Carries a history of HFrEF and NICM. Chest x-ray showed pulmonary edema with a right greater than left large pleural effusion with right midlung consolidative opacities. Currently being treated for possible aspiration pneumonia. Maintains on high flow nasal cannula oxygen supplementation. 09/19: Lasix 20 mg twice daily continued. Metoprolol and amiodarone restarted. Pulmonary consulted due to large right pleural effusion, recommended continued IV diuresis-- potential need for thoracentesis 09/20: Chart and telemetry reviewed. Patient seen and examined at bedside Labs: CBC stable. Chronic renal disease (sCr 2.0>>2.58) Telemetry: Paced 60s I&O: -216 mL Weight: 75.1>>71.1 (bed scale) Upon entrance into the room patient resting comfortably in bed. No longer requiring high flow nasal cannula and is now on 5 L of oxygen. States that she is feeling well and wants to go home. Still has some dyspnea with exertion. No lower extremity edema. Denies any chest pain. No tachy-palpitations. No dizziness or syncope. Review of Systems Review of Systems: All systems reviewed & are unremarkable except as noted in HPI & below Physical Exam Physical Exam: General: No acute distress. A+Ox3. HEENT: Normocephalic. Atraumatic. Conjunctiva and sclera clear. NECK: No carotid bruits. No JVD. Carotid upstrokes are brisk. Heart: RRR. S1 and S2 noted. +2/6 systolic murmur Lungs: Course lung sounds throughout Abdomen: Normal bowel sounds. Soft. Nontender. No masses or organomegaly. No abdominal bruits. Extremities: No edema. No clubbing or cyanosis. Pulses: radial=2/4, posterior tibial=2/4, dorsalis pedis = 2/4. NEURO: No focal deficits. PSYCH: Normal. Results & Data ([facility]) Vital Signs (Past 12 Hours) Vital Signs Temp Pulse Pulse Resp BP Pulse Ox O2 Del Method 09/20/22 08:00 37.0 C 61 17 97/62 L 96 Nasal Cannula 09/20/22 02:42 37.1 C 60 18 102/59 L 95 Nasal Cannula 09/19/22 22:12 61 09/19/22 22:55 36.6 C 63 18 138/84 94 Nasal Cannula O2 Flow Rate 09/20/22 08:00 5 09/20/22 02:42 6 09/19/22 22:12 09/19/22 22:55 6 Laboratory Results CBC 09/20/22 Range/Units 05:20 WBC 9.06 (4.8-10.8) K/ul RBC 3.27 L (3.93-5.22) M/uL Hgb 10.5 L (12.0-16.0) g/dl Hct 32.3 L (34.1-44.9) % Plt Count 253 (130-400) K/uL Comprehensive Metabolic Panel 09/20/22 Range/Units 05:20 Sodium 138 (136-145) mmol/L Potassium 3.7 (3.5-5.1) mmol/L Chloride 102 (98-107) mmol/L Carbon Dioxide 27 (21-32) mmol/L BUN 32 H (6-23) mg/dl Creatinine 2.58 H D (0.6-1.2) mg/dl Glucose 107 H (70-99(Fasting)) mg/dl Calcium 8.5 (8.5-10.1) mg/dl Intake and Output 09/19/22 09/20/22 09/20/22 22:59 06:59 14:59 Intake Total 150 / 1100 590 / 1100 Output Total 350 / 1525 475 / 1525 Balance -200 / -425 115 / -425 Intake: IV 530 / 530 Vancomycin HCl 1,500 mg In 530 / 530 Sodium Chloride 0.9% 500 ml @ 200 mls/hr IV NOW ONE Rx#: [id number] Oral 150 / 570 60 / 570 Output: Urine Amount (Catheter) 350 / 1525 475 / 1525 Jackson/Indwelling 350 / 1525 475 / 1525 Other: Weight 71.1 kg Weight Measurement Method Built in [facility]
[2022-09-20] MEDS: AMOXICILLIN/CLAVULANATE 500 MG TAB PO SCH ×2 (08:59→18:02)
[2022-09-20] MEDS: METOPROLOL SUCC 25MG EXT REL TAB PO SCH (08:59)
[2022-09-20] MEDS: AMIODARONE 200 MG TAB PO SCH (08:59)
[2022-09-20] MEDS: CLOPIDOGREL BISULFATE 75 MG TAB PO SCH (08:59)
[2022-09-20] MEDS: MAGNESIUM OXIDE 400 MG TAB PO SCH ×2 (09:00→19:57)
[2022-09-20] MEDS: FUROSEMIDE 40 MG/4 ML VIAL IV SCH (09:01)
[2022-09-20] MEDS ORDERED: VANCOMYCIN HCL 500 MG in DEXTROSE 5% 100 ML IV ONE (11:00)
--- NOTE | 2022-09-20 12:55 | Procedure Note ---
Procedure Note Date of Service September 19, 2022 Note Bedside ultrasound 09/19/2022:- Right lung: Small to moderate right-sided pleural effusion with dependent atelectasis, B-lines posteriorly, a lines anteriorly Left lung: Minimal left-sided pleural effusion, B-lines posteriorly, a lines anteriorly Please note the above document was generated using voice recognition software. It may contain grammatical, syntax or spelling errors.Any formal questions or concerns about the content, text or information contained within the body of this dictation should be directly addressed to the provider for clarification. Coding CPT Codes Pulmonary/Thoracic - Pulmonary and Thoracic: 01257 US, Chest, real time with imaging documentation ([id number]) [facility] [place] Procedure Codes (Charges) Pulmonary/Thoracic Procedure 1: Pulmonary and Thoracic: 73509 US, Chest, real time with imaging documentation
--- NOTE | 2022-09-20 12:57 | Pulmonology Progress Note ---
Date of Service September 20, 2022 Assessment & Plan (1) Pleural effusion: (2) Acute on chronic HFrEF (heart failure with reduced ejection fraction): (3) Acute respiratory failure with hypoxia: Plan Chest x-ray 09/19/2022 personally reviewed: Portable film, bilateral costophrenic and cardiophrenic angles are blunted, increased cardiac silhouette, no clear lung infiltrate appreciated 2D echo 05/08/2022: EF 20-25%, RVSP 30-40 mmHg, mild to moderate MR, severe global hypokinesis --Acute hypoxic respiratory failure Etiology is underlying systolic CHF with bilateral pleural effusion Procalcitonin negative BNP 2319 Covid-19 PCR negative, influenza A/B negative RSV negative Would recommend continue with diuresis to keep the patient negative balance BiPAP nightly and as needed shortness of breath Bedside ultrasound 09/19/2022:- Right lung: Small to moderate right-sided pleural effusion with dependent atelectasis, B-lines posteriorly, a lines anteriorly Left lung: Minimal left-sided pleural effusion, B-lines posteriorly, a lines anteriorly -- Bilateral pleural effusion From underlying systolic CHF -- Pulmonary hypertension RVSP 30-40 mmHg Type II --A. fib On Eliquis Plan: Bedside ultrasound today showed improvement in the right-sided pleural effusion. Continue with diuresis, creatinine did bump up a little bit today. Eliquis on hold. Please note the above document was generated using voice recognition software. It may contain grammatical, syntax or spelling errors.Any formal questions or concerns about the content, text or information contained within the body of this dictation should be directly addressed to the provider for clarification. Admission and Anticipated Discharge Date Admission Date: September 18, 2022 Subjective Patient seen and examined at bedside. No acute distress, no adverse events overnight. Patient was saturating 97% on 5 L nasal cannula. I was able to go down to 3 L. Overall she says she is feeling better Denies any headache, no nausea, no vomiting Fair appetite. Review of Systems Review of Systems: All systems reviewed & are unremarkable except as noted in Subjective Physical Exam Physical Exam: Constitutional: No acute distress HEENT: EOMI, PERRLA Respiratory system: Decreased air entry bilaterally, no wheeze, rhonchi, positive crackles bilaterally more on the right side CVS: S1-S2 positive, no murmurs or gallops Abdomen: Soft, nontender, nondistended, positive bowel sounds x4 Extremities: +2 pulses bilaterally radialis/ dorsalis pedis, no cyanosis, no edema Neuro: Awake alert oriented x3 Psych: Normal mood and affect G/U: Positive Jackson Skin: no rashes, warm and dry Lymphatic: no cervical or axillary lymphadenopathy Results & Data Results & Data ([facility]) Vital Signs (Past 12 Hours) Vital Signs Temp Pulse Resp BP Pulse Ox O2 Del Method O2 Flow Rate 09/20/22 10:57 36.9 C 60 20 120/83 95 Nasal Cannula 5 09/20/22 08:00 37.0 C 61 17 97/62 L 96 Nasal Cannula 5 09/20/22 02:42 37.1 C 60 18 102/59 L 95 Nasal Cannula 6 Laboratory Results 09/20/22 05:20 09/20/22 05:20 PG Care Time/CCT Total # of Minutes Spent Total Time Spent with Patient: Total time spent is greater than 50% in coordination of care (as documented) at patient's floor/unit and/or counseling patient: Coding Level of Care Code 19120 Subseq Hosp Care Lvl 2 Diagnoses Pleural effusion J90 Acute on chronic HFrEF (heart failure with reduced ejection fraction) I50.23 Acute respiratory failure with hypoxia J96.01
--- NOTE | 2022-09-20 13:36 | Hospitalist Progress Note ---
Date of Service September 20, 2022 Assessment & Plan (1) Acute respiratory failure with hypoxia: (2) Pulmonary edema: (3) Acute exacerbation of CHF (congestive heart failure): (4) CKD (chronic kidney disease), stage IV: (5) Tachycardia-bradycardia syndrome: (6) Paroxysmal atrial fibrillation: (7) Aspiration pneumonia: (8) HTN (hypertension): (9) History of right MCA stroke: Plan This is a 77-year-old female with PMH of HFrEF, tachybradycardia syndrome status post pacemaker placement, paroxysmal atrial fibrillation, prediabetes, hypothyroidism, CKD 4, dementia, anxiety, hyperlipidemia and other medical problems listed below who presents with shortness of breath when she woke up this morning and was found to have decompensated heart failure. Acute hypoxic respiratory failure Acute decompensated heart failure Pulmonary edema SOB since this morning after increased sodium over the past few days Saturating at 93% on high flow nasal cannula oxygen 30 L/min on admission BNP 2,319 CXR with 1. Cardiomegaly with pulmonary edema. 2. Right greater than left layering pleural effusions with bibasilar and right midlung consolidative opacities Received 40 mg IV Lasix in the ED and another dose of 40 this evening Recent echo from earlier this month with EF 25-29% Strict I&Os with gooden in place, daily weights, low sodium diet, cardiology consulted Bipap if needed overnight, confirmed DNI status poss. pulm. consult for poss. thoracentesis, eliquis on hold for now Clinically improved, pt on 5L now Possible aspiration pneumonia H/o aspiration in the past, ? episode a few days ago Covering empirically with Augmentin CKD IV Creatinine baseline ~2 Tachybradycardia syndrome S/p pacemaker placement. Interrogation ordered Atrial fibrillation Continue amiodarone, Toprol, Eliquis for anticoagulation HTN Normotensive. Continue amlodipine, Toprol Prediabetes Carb consistent diet, monitor BSG on AM BMP, sliding scale insulin if needed History of CVA Continue Plavix, eliquis DVT Ppx: Eliquis Code status: DNR/DNI PCP: Dr. Antunez Dispo: PCU Admission and Anticipated Discharge Date Admission Date: September 18, 2022 Subjective Pt seen in follow up of resp. failure, CHF exacerbation Currently sitting up in bed, in no acute distress, on 5L NC Patient's sisters are present at the bedside and updated Patient denies any fevers chills chest pain palpitations. She denies any increased shortness of breath, has minimal cough. No abdominal pain, nausea or vomiting. Review of Systems Review of Systems: All systems reviewed & are unremarkable except as noted in Subjective Physical Exam Physical Exam: Constitutional:K WD/WN, vitals as a christopher (on NC 5L) Eyes: PERRL, EOMI, conju nctivae normal, an icteric sclerae ENMT: external ear and n ose normal, oropha rynx normal Neck: supple Respiratory: no respiratory dis tress and no labor ed breathing (+ co urse breath sounds , but improved fro m previous)) Cardiovascular:K RRR, no murmur, no edema Chest (Breasts): Chest: normal insp ection of chest Gastrointestinal ( Abdomen): normal bowel sound s, soft, nontender Musculoskeletal: extremities motor strength 5/5 Skin: no rashes, warm an d dry Neurologic: PERRL, EOMI, no fa ce palsy, no dysar thria, moves extre mities Psychiatric: A+Ox3, euthymic af fect C Lymphatic: no lymphedema Results & Data Results & Data ([facility]) Vital Signs (Past 12 Hours) Vital Signs Temp Pulse Resp BP Pulse Ox O2 Del Method O2 Flow Rate 09/20/22 10:57 36.9 C 60 20 120/83 95 Nasal Cannula 5 09/20/22 08:00 37.0 C 61 17 97/62 L 96 Nasal Cannula 5 09/20/22 02:42 37.1 C 60 18 102/59 L 95 Nasal Cannula 6 Laboratory Results 09/20/22 09/20/22 09/20/22 Range/Units 08:22 05:20 05:20 WBC 9.06 (4.8-10.8) K/ul RBC 3.27 L (3.93-5.22) M/uL Hgb 10.5 L (12.0-16.0) g/dl Hct 32.3 L (34.1-44.9) % MCV 98.8 (80.0-100.0) fL MCH 32.1 (25.0-34.0) pg MCHC 32.5 (32.0-36.0) g/dL RDW Std Deviation 56.8 H (36.4-46.3) fL RDW Coeff of Etta 15.6 H (11.5-14.5) % Plt Count 253 (130-400) K/uL MPV 10.7 (9.4-12.3) fL Sodium 138 (136-145) mmol/L Potassium 3.7 (3.5-5.1) mmol/L Chloride 102 (98-107) mmol/L Carbon Dioxide 27 (21-32) mmol/L Anion Gap 9 (3-11) BUN 32 H (6-23) mg/dl Creatinine 2.58 H D (0.6-1.2) mg/dl Est Cr Clr Drug Dosing 17.7 ml/min Est GFR ( Amer) 20.0 ml/min Est GFR (Non-Af Amer) 17.3 ml/min BUN/Creatinine Ratio 12.4 (10-20) Glucose 107 H (70-99(Fasting)) mg/dl POC Glucose (70-99) mg/dl Calcium 8.5 (8.5-10.1) mg/dl Phosphorus 3.5 (2.5-4.9) mg/dl Magnesium 1.7 (1.7-2.4) mg/dl Random Vancomycin 19.7 (10-20) mcg/ml Bld Cult ID Panel PCR (NotDetected) 09/19/22 09/18/22 Range/Units 17:27 14:22 WBC (4.8-10.8) K/ul RBC (3.93-5.22) M/uL Hgb (12.0-16.0) g/dl Hct (34.1-44.9) % MCV (80.0-100.0) fL MCH (25.0-34.0) pg MCHC (32.0-36.0) g/dL RDW Std Deviation (36.4-46.3) fL RDW Coeff of Etta (11.5-14.5) % Plt Count (130-400) K/uL MPV (9.4-12.3) fL Sodium (136-145) mmol/L Potassium (3.5-5.1) mmol/L Chloride (98-107) mmol/L Carbon Dioxide (21-32) mmol/L Anion Gap (3-11) BUN (6-23) mg/dl Creatinine (0.6-1.2) mg/dl Est Cr Clr Drug Dosing ml/min Est GFR ( Amer) ml/min Est GFR (Non-Af Amer) ml/min BUN/Creatinine Ratio (10-20) Glucose (70-99(Fasting)) mg/dl POC Glucose 130 H (70-99) mg/dl Calcium (8.5-10.1) mg/dl Phosphorus (2.5-4.9) mg/dl Magnesium (1.7-2.4) mg/dl Random Vancomycin (10-20) mcg/ml Bld Cult ID Panel PCR PCR Panel Negative (NotDetected) Medications Administered Current Inpatient Medications Acetaminophen (Acetaminophen 325 Mg Tab) 650 mg PO Q4H PRN PRN Reason: Pain or Fever Stop: 10/18/22 19:14 Amiodarone HCl (Amiodarone 200 Mg Tab) 200 mg PO [facility] Stop: 10/19/22 09:29 Last Admin: 09/20/22 08:59 Dose: 200 mg Amoxicillin/Clavulanate Potassium (Amoxicillin/Clavulanate 500 Mg Tab) 1 tab PO BIDM [facility]; Protocol Stop: 09/25/22 20:59 Last Admin: 09/20/22 08:59 Dose: 1 tab Apixaban (Apixaban 2.5 Mg Tab) 2.5 mg PO BID [facility] Stop: 10/19/22 09:29 Last Admin: 09/19/22 09:59 Dose: 2.5 mg Clopidogrel Bisulfate (Clopidogrel Bisulfate 75 Mg Tab) 75 mg PO QAM [facility] Stop: 10/19/22 13:29 Last Admin: 09/20/22 08:59 Dose: 75 mg Furosemide (Furosemide 40 Mg/4 Ml Vial) 40 mg IV BID17 [facility] Stop: 10/19/22 08:59 Last Admin: 09/20/22 09:01 Dose: 40 mg Magnesium Oxide (Magnesium Oxide 400 Mg Tab) 400 mg PO BID [facility] Stop: 10/19/22 10:54 Last Admin: 09/20/22 09:00 Dose: 400 mg Metoprolol Succinate (Metoprolol Succ 25mg Ext Rel Tab) [facility] [place]: 10/19/22 09:29 Last Admin: 09/20/22 08:59 Dose: 25 mg Ondansetron HCl (Ondansetron Inj 2 Mg/Ml 2 Ml Vial) 4 mg IV Q6H PRN PRN Reason: Nausea Stop: 10/18/22 19:14 Polyethylene Glycol (Polyethylene (Miralax) 17 Gm Pack) 17 gm PO DAILY PRN PRN Reason: Constipation Stop: 10/18/22 19:14 (1) HTN (hypertension) 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 type: essential hypertension Qualified Code(s): I10 - Essential (primary) hypertension
[2022-09-20] MEDS ORDERED: VANCOMYCIN HCL 750 MG in SODIUM CHLORIDE 0.9% 250 ML IV SCH (14:00)
[2022-09-21 06:57] LABS: Hematocrit (blood only) 31.3 % (34.1-44.9); Hemoglobin 10.1 g/dl (12.0-16.0); Mean Corpuscular Hgb Conc 32.3 g/dL (32.0-36.0); Mean Corpuscular Volume 99.1 fL (80.0-100.0); Platelet Count 229 K/uL (130-400); RDW Coefficient of Variation 15.1 % (11.5-14.5); RDW Standard Deviation 55.2 fL (36.4-46.3); Red Blood Count 3.16 M/uL (3.93-5.22); White Blood Count 7.61 K/ul (4.8-10.8)
[2022-09-21 07:33] LABS: BUN Creatinine Ratio 16.1 (10-20); Calcium 8.9 mg/dl (8.5-10.1); Creatinine Clr Calc Pharmacy 20.2 ml/min; Est GFR (African American) 23.9 ml/min; Est GFR (Non-African American) 20.6 ml/min; Magnesium 1.9 mg/dl (1.7-2.4); Phosphorus 3.3 mg/dl (2.5-4.9); Potassium 3.6 mmol/L (3.5-5.1)
--- NOTE | 2022-09-21 08:06 | Hospitalist Progress Note ---
Date of Service September 21, 2022 Assessment & Plan (1) Acute respiratory failure with hypoxia: (2) Pulmonary edema: (3) Acute exacerbation of CHF (congestive heart failure): (4) CKD (chronic kidney disease), stage IV: (5) Tachycardia-bradycardia syndrome: (6) Paroxysmal atrial fibrillation: (7) Aspiration pneumonia: (8) HTN (hypertension): (9) History of right MCA stroke: Plan This is a 77-year-old female with PMH of HFrEF, tachybradycardia syndrome status post pacemaker placement, paroxysmal atrial fibrillation, prediabetes, hypothyroidism, CKD 4, dementia, anxiety, hyperlipidemia and other medical problems listed below who presents with shortness of breath when she woke up this morning and was found to have decompensated heart failure. Acute hypoxic respiratory failure Acute decompensated heart failure Pulmonary edema SOB since this morning after increased sodium over the past few days Saturating at 93% on high flow nasal cannula oxygen 30 L/min on admission BNP 2,319 CXR with 1. Cardiomegaly with pulmonary edema. 2. Right greater than left layering pleural effusions with bibasilar and right midlung consolidative opacities Received 40 mg IV Lasix in the ED and another dose of 40 this evening Recent echo from earlier this month with EF 25-29% Strict I&Os with gooden in place, daily weights, low sodium diet, cardiology consulted Bipap if needed overnight, confirmed DNI status poss. pulm. consult for poss. thoracentesis, eliquis on hold for now Clinically improved, pt on RA vs 2L now Possible aspiration pneumonia H/o aspiration in the past, ? episode a few days ago Covering empirically with Augmentin Speech eval today CKD IV Creatinine baseline ~2 Tachybradycardia syndrome S/p pacemaker placement. Interrogation ordered Atrial fibrillation Continue amiodarone, Toprol, Eliquis for anticoagulation HTN Normotensive. Continue amlodipine, Toprol Prediabetes Carb consistent diet, monitor BSG on AM BMP, sliding scale insulin if needed History of CVA Continue Plavix, eliquis DVT Ppx: Eliquis Code status: DNR/DNI PCP: Dr. Antunez Dispo: PCU Admission and Anticipated Discharge Date Admission Date: September 18, 2022 Subjective Pt seen in follow up of resp. failure, CHF exacerbation Currently sitting up in bed, in no acute distress, on RA vs. 2L NC Patient's sister is present at the bedside and updated Patient denies any fevers chills chest pain palpitations. She denies any increased shortness of breath, has minimal cough. No abdominal pain, nausea or vomiting. Speech eval today. No need for thoracentesis. Review of Systems Review of Systems: All systems reviewed & are unremarkable except as noted in Subjective Physical Exam Physical Exam: Constitutional:K WD/WN, on RA vs 2 L Eyes: PERRL, EOMI, conju nctivae normal, an icteric sclerae ENMT: external ear and n ose normal, oropha rynx normal Neck: supple Respiratory: no respiratory dis tress and no labor ed breathing (+ rh onchi, +crackles) Cardiovascular:K RRR, no murmur, no edema Chest (Breasts): Chest: normal insp ection of chest Gastrointestinal ( Abdomen): normal bowel sound s, soft, nontender Musculoskeletal: extremities motor strength 5/5 Skin: no rashes, warm an d dry Neurologic: PERRL, EOMI, no fa ce palsy, no dysar thria, moves extre mities Psychiatric: A+Ox3, euthymic af fect Lymphatic: no lymphedema Results & Data Results & Data ([facility]) Vital Signs (Past 12 Hours) Vital Signs Temp Pulse Resp BP Pulse Ox O2 Del Method O2 Flow Rate 09/21/22 07:39 36.5 C 68 19 103/65 90 Nasal Cannula 2 09/21/22 07:38 Nasal Cannula 3 09/21/22 03:19 36.8 C 71 18 125/70 90 Nasal Cannula 3 09/20/22 23:10 36.5 C 66 18 119/71 90 Nasal Cannula 09/20/22 22:24 Nasal Cannula 3 Laboratory Results 09/21/22 09/21/22 09/20/22 Range/Units 06:17 06:17 08:22 WBC 7.61 (4.8-10.8) K/ul RBC 3.16 L (3.93-5.22) M/uL Hgb 10.1 L (12.0-16.0) g/dl Hct 31.3 L (34.1-44.9) % MCV 99.1 (80.0-100.0) fL MCH 32.0 (25.0-34.0) pg MCHC 32.3 (32.0-36.0) g/dL RDW Std Deviation 55.2 H (36.4-46.3) fL RDW Coeff of Etta 15.1 H (11.5-14.5) % Plt Count 229 (130-400) K/uL MPV 11.0 (9.4-12.3) fL Sodium 138 (136-145) mmol/L Potassium 3.6 (3.5-5.1) mmol/L Chloride 102 (98-107) mmol/L Carbon Dioxide 26 (21-32) mmol/L Anion Gap 10 (3-11) BUN 36 H (6-23) mg/dl Creatinine 2.23 H D (0.6-1.2) mg/dl Est Cr Clr Drug Dosing 20.2 ml/min Est GFR ( Amer) 23.9 ml/min Est GFR (Non-Af Amer) 20.6 ml/min BUN/Creatinine Ratio 16.1 (10-20) Glucose 96 (70-99(Fasting)) mg/dl Calcium 8.9 (8.5-10.1) mg/dl Phosphorus 3.3 (2.5-4.9) mg/dl Magnesium 1.9 (1.7-2.4) mg/dl Random Vancomycin 19.7 (10-20) mcg/ml Medications Administered Current Inpatient Medications Acetaminophen (Acetaminophen 325 Mg Tab) 650 mg PO Q4H PRN PRN Reason: Pain or Fever Stop: 10/18/22 19:14 Amiodarone HCl ([facility] 200 Mg Tab) [facility] [place] Stop: 10/19/22 09:29 Last Admin: 09/20/22 08:59 Dose: 200 mg Amoxicillin/Clavulanate Potassium (Amoxicillin/Clavulanate 500 Mg Tab) 1 tab PO BIDM [facility]; Protocol Stop: 09/25/22 20:59 Last Admin: 09/20/22 18:02 Dose: 1 tab Apixaban (Apixaban 2.5 Mg Tab) 2.5 mg PO BID [facility] Stop: 10/19/22 09:29 Last Admin: 09/19/22 09:59 Dose: 2.5 mg Clopidogrel Bisulfate (Clopidogrel Bisulfate 75 Mg Tab) 75 mg PO QAM [facility] Stop: 10/19/22 13:29 Last Admin: 09/20/22 08:59 Dose: 75 mg Furosemide (Furosemide 40 Mg/4 Ml Vial) 40 mg IV BID17 [facility] Stop: 10/19/22 08:59 Last Admin: 09/20/22 09:01 Dose: 40 mg Magnesium Oxide (Magnesium Oxide 400 Mg Tab) 400 mg PO BID [facility] Stop: 10/19/22 10:54 Last Admin: 09/20/22 19:57 Dose: 400 mg Metoprolol Succinate (Metoprolol Succ 25mg Ext Rel Tab) 25 mg PO QAM [facility] Stop: 10/19/22 09:29 Last Admin: 09/20/22 08:59 Dose: 25 mg Ondansetron HCl (Ondansetron Inj 2 Mg/Ml 2 Ml Vial) 4 mg IV Q6H PRN PRN Reason: Nausea Stop: 10/18/22 19:14 Polyethylene Glycol (Polyethylene (Miralax) 17 Gm Pack) 17 gm PO DAILY PRN PRN Reason: Constipation Stop: 10/18/22 19:14 (1) HTN (hypertension) 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 type: essential hypertension Qualified Code(s): I10 - Essential (primary) hypertension
--- NOTE | 2022-09-21 08:22 | XRay Report ---
XR chest 1V portable HISTORY: Shortness of breath. COMPARISON: Chest 09/19/2022. FINDINGS: No pneumothorax. There is a left-sided dual-chamber pacemaker. The heart remains mildly enl arged. Prior cholecystectomy. Decrease in size in the small bilateral pleural effusions with improved aeration within the lung bases. Mild pulmonary vascular congestion persists. IMPRESSION: Mild pulmonary vascular congestion with decrease in size in the bibasilar densities/effusions. ACT 112: Negative or not required by law. Electronically signed by: Alex Rouse M.D. 09/21/2022 8:21 AM
[2022-09-21] MEDS: AMOXICILLIN/CLAVULANATE 500 MG TAB PO SCH ×2 (08:33→17:07)
[2022-09-21] MEDS: MAGNESIUM OXIDE 400 MG TAB PO SCH ×2 (08:34→20:04)
[2022-09-21] MEDS: AMIODARONE 200 MG TAB PO SCH (08:34)
[2022-09-21] MEDS: CLOPIDOGREL BISULFATE 75 MG TAB PO SCH (08:34)
[2022-09-21] MEDS: METOPROLOL SUCC 25MG EXT REL TAB PO SCH (08:35)
--- NOTE | 2022-09-21 10:52 | Pulmonology Progress Note ---
Date of Service September 21, 2022 Assessment & Plan (1) Pleural effusion: (2) Acute on chronic HFrEF (heart failure with reduced ejection fraction): (3) Acute respiratory failure with hypoxia: Plan Chest x-ray 09/19/2022 personally reviewed: Portable film, bilateral costophrenic and cardiophrenic angles are blunted, increased cardiac silhouette, no clear lung infiltrate appreciated 2D echo 05/08/2022: EF 20-25%, RVSP 30-40 mmHg, mild to moderate MR, severe global hypokinesis --Acute hypoxic respiratory failure Etiology is underlying systolic CHF with bilateral pleural effusion Procalcitonin negative BNP 2319 Covid-19 PCR negative, influenza A/B negative RSV negative Would recommend continue with diuresis to keep the patient negative balance BiPAP nightly and as needed shortness of breath Bedside ultrasound 09/19/2022:- Right lung: Small to moderate right-sided pleural effusion with dependent atelectasis, B-lines posteriorly, a lines anteriorly Left lung: Minimal left-sided pleural effusion, B-lines posteriorly, a lines anteriorly -- Bilateral pleural effusion From underlying systolic CHF -- Pulmonary hypertension RVSP 30-40 mmHg Type II --A. fib On Eliquis Plan: In/out: -695 Chest x-ray from today shows improvement in bilateral pleural effusion. Continue with incentive spirometry, continue with diuresis No need for thoracentesis Will resume Eliquis today No further recommendation from pulmonary perspective. We will sign off, please call directly with any questions Case was discussed with Dr. Wood Please note the above document was generated using voice recognition software. It may contain grammatical, syntax or spelling errors.Any formal questions or concerns about the content, text or information contained within the body of this dictation should be directly addressed to the provider for clarification. Admission and Anticipated Discharge Date Admission Date: September 18, 2022 Subjective Patient seen and examined at bedside. No acute distress, no adverse events overnight. Patient was sitting on a chair. She was saturating 88% on room air. On asking her to take deep breaths her saturation went up to 90%. Denies any chest pain, no headache, no nausea, no vomiting Fair appetite. Review of Systems Review of Systems: All systems reviewed & are unremarkable except as noted in Subjective Physical Exam Physical Exam: Constitutional: No acute distress HEENT: EOMI, PERRLA Respiratory system: Decreased air entry bilaterally, no wheeze, rhonchi, positive crackles bilaterally more on the right side CVS: S1-S2 positive, no murmurs or gallops Abdomen: Soft, nontender, nondistended, positive bowel sounds x4 Extremities: +2 pulses bilaterally radialis/ dorsalis pedis, no cyanosis, no edema Neuro: Awake alert oriented x3 Psych: Normal mood and affect G/U: Positive Jackson Skin: no rashes, warm and dry Lymphatic: no cervical or axillary lymphadenopathy Results & Data Results & Data ([facility]) Vital Signs (Past 12 Hours) Vital Signs Temp Pulse Pulse Resp BP Pulse Ox O2 Del Method 09/21/22 10:30 92 09/21/22 10:27 91 Room Air 09/21/22 08:00 64 09/21/22 07:39 36.5 C 68 19 103/65 90 Nasal Cannula 09/21/22 07:38 Nasal Cannula 09/21/22 03:19 36.8 C 71 18 125/70 90 Nasal Cannula 09/20/22 23:10 36.5 C 66 18 119/71 90 Nasal Cannula O2 Flow Rate 09/21/22 10:30 09/21/22 10:27 09/21/22 08:00 09/21/22 07:39 2 09/21/22 07:38 3 09/21/22 03:19 3 09/20/22 23:10 Laboratory Results 09/21/22 06:17 09/21/22 06:17 PG Care Time/CCT Total # of Minutes Spent Total Time Spent with Patient: Total time spent is greater than 50% in coordination of care (as documented) at patient's floor/unit and/or counseling patient: Coding Level of Care Code 06005 Subseq Hosp Care Lvl 2 Diagnoses Pleural effusion J90 Acute on chronic HFrEF (heart failure with reduced ejection fraction) I50.23 Acute respiratory failure with hypoxia J96.01
--- NOTE | 2022-09-21 12:33 | Cardiology Progress Note ---
Date of Service September 21, 2022 Assessment & Plan (1) Acute on chronic HFrEF (heart failure with reduced ejection fraction): (2) Pleural effusion: (3) Acute respiratory failure with hypoxia: (4) Tachycardia-bradycardia syndrome: (5) Paroxysmal atrial fibrillation: (6) History of right MCA stroke: Plan Renal function improved. Restart IV Lasix today. Monitor fluid balance, daily weight, GFR, and electrolytes. Continue other cardiovascular medications including metoprolol succinate, amiodarone, and anticoagulation with Eliquis. Amlodipine will remain on hold. Admission and Anticipated Discharge Date Admission Date: September 18, 2022 Subjective Patient seen examined the bedside. Fluid balance -695 mL. Renal function improving. Subjectively reports improved shortness of breath. Telemetry reveals AV paced rhythm in the 60s. Review of Systems Review of Systems: All systems reviewed & are unremarkable except as noted in Subjective Physical Exam Constitutional: well nourished; no acute distress Respiratory: no respiratory distress, no labored breathing and no retractions Auscultation: + diminished lung sounds (Right base) and + rales (Bases bilateral); no rhonchi and no wheezes Cardiovascular: Rate/Rhythm: regular rate and regular rhythm Heart Sounds: normal S1, normal S2 and + murmur (1/6 systolic murmur heard best at the base) Vessels: + JVD and radial pulses present; no carotid bruit Gastrointestinal (Abdomen): Inspection/Auscultation: normal bowel sounds; abdomen not distended Percussion/Palpation: abdomen soft; abdomen nontender, no guarding and abdomen not rigid Neurologic: CN's II-XI intact bilaterally and moves all extremities; no focal motor deficits Results & Data ([facility]) Vital Signs (Past 12 Hours) Vital Signs Temp Pulse Pulse Resp BP Pulse Ox O2 Del Method 09/21/22 11:35 36.4 C L 84 19 116/76 91 Room Air 09/21/22 10:30 92 09/21/22 10:27 91 Room Air 09/21/22 08:00 64 09/21/22 07:39 36.5 C 68 19 103/65 90 Nasal Cannula 09/21/22 07:38 Nasal Cannula 09/21/22 03:19 36.8 C 71 18 125/70 90 Nasal Cannula O2 Flow Rate 09/21/22 11:35 09/21/22 10:30 09/21/22 10:27 09/21/22 08:00 09/21/22 07:39 2 09/21/22 07:38 3 09/21/22 03:19 3
[2022-09-21] MEDS: FUROSEMIDE 40 MG/4 ML VIAL IV SCH (17:08)
[2022-09-21] MEDS: APIXABAN 2.5 MG TAB PO SCH (20:04)
[2022-09-22 06:24] LABS: Hematocrit (blood only) 33.8 % (34.1-44.9); Hemoglobin 10.9 g/dl (12.0-16.0); Mean Corpuscular Hemoglobin 31.5 pg (25.0-34.0); Mean Corpuscular Hgb Conc 32.2 g/dL (32.0-36.0); Mean Corpuscular Volume 97.7 fL (80.0-100.0); Mean Platelet Volume 10.5 fL (9.4-12.3); Platelet Count 245 K/uL (130-400); RDW Coefficient of Variation 15.1 % (11.5-14.5); RDW Standard Deviation 54.5 fL (36.4-46.3); Red Blood Count 3.46 M/uL (3.93-5.22); White Blood Count 7.46 K/ul (4.8-10.8)
[2022-09-22 06:44] LABS: BUN Creatinine Ratio 19.7 (10-20); Creatinine Clr Calc Pharmacy 20.4 ml/min; Est GFR (African American) 23.9 ml/min; Est GFR (Non-African American) 20.6 ml/min; Magnesium 2.2 mg/dl (1.7-2.4); Phosphorus 3.6 mg/dl (2.5-4.9); Potassium 3.7 mmol/L (3.5-5.1)
[2022-09-22] MEDS: AMOXICILLIN/CLAVULANATE 500 MG TAB PO SCH (08:21)
[2022-09-22] MEDS: AMIODARONE 200 MG TAB PO SCH (08:21)
[2022-09-22] MEDS: MAGNESIUM OXIDE 400 MG TAB PO SCH (08:22)
[2022-09-22] MEDS: METOPROLOL SUCC 25MG EXT REL TAB PO SCH (08:22)
[2022-09-22] MEDS: CLOPIDOGREL BISULFATE 75 MG TAB PO SCH (08:22)
[2022-09-22] MEDS: APIXABAN 2.5 MG TAB PO SCH (08:22)
[2022-09-22] MEDS: FUROSEMIDE 40 MG/4 ML VIAL IV SCH (09:53)
--- NOTE | 2022-09-22 11:54 | Hospitalist Progress Note ---
Date of Service September 22, 2022 Assessment & Plan (1) Acute respiratory failure with hypoxia: (2) Pulmonary edema: (3) Acute exacerbation of CHF (congestive heart failure): (4) CKD (chronic kidney disease), stage IV: (5) Tachycardia-bradycardia syndrome: (6) Paroxysmal atrial fibrillation: (7) Aspiration pneumonia: (8) HTN (hypertension): (9) History of right MCA stroke: Plan This is a 77-year-old female with PMH of HFrEF, tachybradycardia syndrome status post pacemaker placement, paroxysmal atrial fibrillation, prediabetes, hypothyroidism, CKD 4, dementia, anxiety, hyperlipidemia and other medical problems listed below who presents with shortness of breath when she woke up this morning and was found to have decompensated heart failure. Acute hypoxic respiratory failure Acute decompensated heart failure Pulmonary edema SOB since this morning after increased sodium over the past few days Saturating at 93% on high flow nasal cannula oxygen 30 L/min on admission BNP 2,319 CXR with 1. Cardiomegaly with pulmonary edema. 2. Right greater than left layering pleural effusions with bibasilar and right midlung consolidative opacities Received 40 mg IV Lasix in the ED and another dose of 40 this evening Recent echo from earlier this month with EF 25-29% Strict I&Os with gooden in place, daily weights, low sodium diet, cardiology consulted Bipap if needed overnight, confirmed DNI status Clinically much improved, pt on RA and saturating 94% Plan to DC on daily lasix 20 mg Possible aspiration pneumonia H/o aspiration in the past, ? episode a few days ago Covering empirically with Augmentin Speech eval obtained CKD IV Creatinine baseline ~2 Tachybradycardia syndrome S/p pacemaker placement. Interrogation ordered Atrial fibrillation Continue amiodarone, Toprol, Eliquis for anticoagulation HTN Normotensive. Continue amlodipine, Toprol Prediabetes Carb consistent diet, monitor BSG on AM BMP, sliding scale insulin if needed History of CVA Continue Plavix, eliquis DVT Ppx: Eliquis Code status: DNR/DNI PCP: Dr. Antunez Dispo: PCU Admission and Anticipated Discharge Date Admission Date: September 18, 2022 Subjective Pt seen in follow up of resp. failure, CHF exacerbation Currently sitting up in bed, in no acute distress, on RA saturating 94% Patient's sisters are present at the bedside and updated Patient denies any fevers chills chest pain palpitations. She denies any increased shortness of breath, has minimal cough. No abdominal pain, nausea or vomiting. Review of Systems Review of Systems: All systems reviewed & are unremarkable except as noted in Subjective Physical Exam Physical Exam: Constitutional:K WD/WN, on RA Eyes: PERRL, EOMI, conju nctivae normal, an icteric sclerae ENMT: external ear and n ose normal, oropha rynx normal Neck: supple Respiratory: no respiratory dis tress and no labor ed breathing, CTAB , no wheezing or c rackles Cardiovascular:K RRR, no murmur, no edema Chest (Breasts): Chest: normal insp ection of chest Gastrointestinal ( Abdomen): normal bowel sound s, soft, nontender Musculoskeletal: extremities motor strength 5/5 Skin: no rashes, warm an d dry Neurologic: PERRL, EOMI, no fa ce palsy, no dysar thria, moves extre mities Psychiatric: A+Ox3, euthymic af fect Lymphatic: no lymphedema Results & Data Results & Data ([facility]) Vital Signs (Past 12 Hours) Vital Signs Temp Pulse Resp BP Pulse Ox O2 Del Method O2 Flow Rate 09/22/22 11:49 36.3 C L 18 111/69 94 Room Air 09/22/22 07:33 36.6 C 67 20 103/63 95 Room Air 09/22/22 07:30 95 Room Air 09/22/22 02:48 36.7 C 60 18 95/51 L 92 Nasal Cannula 1 Laboratory Results 09/22/22 09/22/22 Range/Units 06:11 06:11 WBC 7.46 (4.8-10.8) K/ul RBC 3.46 L (3.93-5.22) M/uL Hgb 10.9 L (12.0-16.0) g/dl Hct 33.8 L (34.1-44.9) % MCV 97.7 (80.0-100.0) fL MCH 31.5 (25.0-34.0) pg MCHC 32.2 (32.0-36.0) g/dL RDW Std Deviation 54.5 H (36.4-46.3) fL RDW Coeff of Etta 15.1 H (11.5-14.5) % Plt Count 245 (130-400) K/uL MPV 10.5 (9.4-12.3) fL Sodium 140 (136-145) mmol/L Potassium 3.7 (3.5-5.1) mmol/L Chloride 102 (98-107) mmol/L Carbon Dioxide 29 (21-32) mmol/L Anion Gap 9 (3-11) BUN 44 H (6-23) mg/dl Creatinine 2.23 H (0.6-1.2) mg/dl Est Cr Clr Drug Dosing 20.4 ml/min Est GFR ( Amer) 23.9 ml/min Est GFR (Non-Af Amer) 20.6 ml/min BUN/Creatinine Ratio 19.7 (10-20) Glucose 97 (70-99(Fasting)) mg/dl Calcium 9.0 (8.5-10.1) mg/dl Phosphorus 3.6 (2.5-4.9) mg/dl Magnesium 2.2 (1.7-2.4) mg/dl Medications Administered Current Inpatient Medications Acetaminophen (Acetaminophen 325 Mg Tab) 650 mg PO Q4H PRN PRN Reason: Pain or Fever Stop: 10/18/22 19:14 Amiodarone HCl (Amiodarone 200 Mg Tab) 200 mg PO QAM [facility] Stop: 10/19/22 09:29 Last Admin: 09/22/22 08:21 Dose: 200 mg Amoxicillin/Clavulanate Potassium (Amoxicillin/Clavulanate 500 Mg Tab) 1 tab PO BIDM [facility]; Protocol Stop: 09/25/22 20:59 Last Admin: 09/22/22 08:21 Dose: 1 tab Apixaban (Apixaban 2.5 Mg Tab) 2.5 mg PO BID [facility] Stop: 10/19/22 09:29 Last Admin: 09/22/22 08:22 Dose: 2.5 mg Clopidogrel Bisulfate (Clopidogrel Bisulfate 75 Mg Tab) 75 mg PO QAM [facility] Stop: 10/19/22 13:29 Last Admin: 09/22/22 08:22 Dose: 75 mg Furosemide (Furosemide 40 Mg/4 Ml Vial) 40 mg IV BID17 [facility] Stop: 10/19/22 08:59 Last Admin: 09/22/22 09:53 Dose: Not Given Magnesium Oxide (Magnesium Oxide 400 Mg Tab) 400 mg PO BID [facility] Stop: 10/19/22 10:54 Last Admin: 09/22/22 08:22 Dose: 400 mg Metoprolol Succinate (Metoprolol Succ 25mg Ext Rel Tab) 25 mg PO QAM [facility] Stop: 10/19/22 09:29 Last Admin: 09/22/22 08:22 Dose: 25 mg Ondansetron HCl (Ondansetron Inj 2 Mg/Ml 2 Ml Vial) 4 mg IV Q6H PRN PRN Reason: Nausea Stop: 10/18/22 19:14 Polyethylene Glycol (Polyethylene (Miralax) 17 Gm Pack) 17 gm PO DAILY PRN PRN Reason: Constipation Stop: 10/18/22 19:14 (1) HTN (hypertension) 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 type: essential hypertension Qualified Code(s): I10 - Essential (primary) hypertension
--- NOTE | 2022-09-22 11:55 | Cardiology Progress Note ---
Date of Service September 22, 2022 Assessment & Plan (1) Acute on chronic HFrEF (heart failure with reduced ejection fraction): (2) Pleural effusion: (3) Acute respiratory failure with hypoxia: (4) Tachycardia-bradycardia syndrome: (5) Paroxysmal atrial fibrillation: (6) History of right MCA stroke: Plan Interval improvement in volume status over the last 24-48 hours. Stable renal function with creatinine around 2.2. recommend continuing furosemide 20 mg daily on discharge. Continue other cardiovascular medications including metoprolol succinate, amiodarone, and anticoagulation with Eliquis. Amlodipine remains on hold. Will need close f/u with cardio and nephrology as outpatient. would recommend f/u BMP next week. Case discussed with Dr. La. Admission and Anticipated Discharge Date Admission Date: September 18, 2022 Supervising Physician Co-Signing Physician Notes Patient seen and examined at the bedside. Patient with oxygen saturation 94% on room air this morning. Fluid balance negative additional 1.7 L. Stable serum creatinine today. PE: VSS. Gen: NAD, AAO x3. Heart: Regular rhythm, normal S1-S2, 1/6 systolic ejection murmur heard best at the right second costal space. Lungs: No rales, rhonchi, wheeze. Mildly diminished breath sounds at the left base. No expiratory wheeze. Extremities: No significant edema. A/P: Agree with above AP history, physical, assessment and plan. Discontinue IV diuretic therapy. Transition back to oral furosemide. Repeat BMP and close cardiology follow-up in 1 week. Continue other cardiovascular medications including amiodarone, Eliquis, isosorbide monohydrate, and metoprolol succinate. Subjective Patient resting comfortably in chair. Reports her SOB has greatly improved. Cough improved. Slept well last night. Anxious for discharge. Family at bedside. No dizziness or lightheadedness. No or thopnea, PND. No chest pain Review of Systems Review of Systems: All systems reviewed & are unremarkable except as noted in HPI & below Physical Exam Constitutional: well nourished; no acute distress Respiratory: no respiratory distress, no labored breathing and no retractions Auscultation: + diminished lung sounds; no rales, no rhonchi and no wheezes Cardiovascular: Rate/Rhythm: regular rate and regular rhythm Heart Sounds: normal S1, normal S2 and + murmur (1/6 systolic murmur heard best at the base) Vessels: radial pulses present; no JVD and no carotid bruit Gastrointestinal (Abdomen): Inspection/Auscultation: normal bowel sounds; abdomen not distended Percussion/Palpation: abdomen soft; abdomen nontender, no guarding and abdomen not rigid Neurologic: CN's II-XI intact bilaterally and moves all extremities; no focal motor deficits Results & Data ([facility]) Vital Signs (Past 12 Hours) Vital Signs Temp Pulse Resp BP Pulse Ox O2 Del Method O2 Flow Rate 09/22/22 11:49 36.3 C L 18 111/69 94 Room Air 09/22/22 07:33 36.6 C 67 20 103/63 95 Room Air 09/22/22 07:30 95 Room Air 09/22/22 02:48 36.7 C 60 18 95/51 L 92 Nasal Cannula 1 Laboratory Results CBC 09/22/22 Range/Units 06:11 WBC 7.46 (4.8-10.8) K/ul RBC 3.46 L (3.93-5.22) M/uL Hgb 10.9 L (12.0-16.0) g/dl Hct 33.8 L (34.1-44.9) % Plt Count 245 (130-400) K/uL Comprehensive Metabolic Panel 09/22/22 Range/Units 06:11 Sodium 140 (136-145) mmol/L Potassium 3.7 (3.5-5.1) mmol/L Chloride 102 (98-107) mmol/L Carbon Dioxide 29 (21-32) mmol/L BUN 44 H (6-23) mg/dl Creatinine 2.23 H (0.6-1.2) mg/dl Glucose 97 (70-99(Fasting)) mg/dl Calcium 9.0 (8.5-10.1) mg/dl Intake and Output 09/21/22 09/22/22 09/22/22 22:59 06:59 14:59 Intake Total 100 / 560 100 / 560 Output Total 550 / 2300 1500 / 2300 Balance -450 / -1740 -1400 / -1740 Intake: Oral 100 / 560 100 / 560 Output: Urine Amount (Catheter) 550 / 2300 1500 / 2300 Jackson/Indwelling 550 / 2300 1500 / 2300 Other: Other Intake Source 1500 Fluid Restriction Weight 70.9 kg Weight Measurement Method Built in [facility] Diagnostic Findings Telemetry reviewed: Paced in the 60's chest xray report reviewed 09/22/22 IMPRESSION: Mild pulmonary vascular congestion with decrease in size in the bibasilar densities/effusions. Medications Administered Current Inpatient Medications Acetaminophen (Acetaminophen 325 Mg Tab) 650 mg PO Q4H PRN PRN Reason: Pain or Fever Stop: 10/18/22 19:14 Amiodarone HCl (Amiodarone 200 Mg Tab) [address] [facility] Stop: 10/19/22 09:29 Last Admin: 09/22/22 08:21 Dose: 200 mg Amoxicillin/Clavulanate Potassium (Amoxicillin/Clavulanate 500 Mg Tab) 1 tab PO BIDM [facility]; Protocol Stop: 09/25/22 20:59 Last Admin: 09/22/22 08:21 Dose: 1 tab Apixaban (Apixaban 2.5 Mg Tab) 2.5 mg PO BID [facility] Stop: 10/19/22 09:29 Last Admin: 09/22/22 08:22 Dose: 2.5 mg Clopidogrel Bisulfate (Clopidogrel Bisulfate 75 Mg Tab) [address] [facility] Stop: 10/19/22 13:29 Last Admin: 09/22/22 08:22 Dose: 75 mg Furosemide (Furosemide 40 Mg/4 Ml Vial) 40 mg IV BID17 [facility] Stop: 10/19/22 08:59 Last Admin: 09/22/22 09:53 Dose: Not Given Magnesium Oxide (Magnesium Oxide 400 Mg Tab) 400 mg PO BID [facility] Stop: 10/19/22 10:54 Last Admin: 09/22/22 08:22 Dose: 400 mg Metoprolol Succinate (Metoprolol Succ 25mg Ext Rel Tab) [address] [facility] Stop: 10/19/22 09:29 Last Admin: 09/22/22 08:22 Dose: 25 mg Ondansetron HCl (Ondansetron Inj 2 Mg/Ml 2 Ml Vial) 4 mg IV Q6H PRN PRN Reason: Nausea Stop: 10/18/22 19:14 Polyethylene Glycol (Polyethylene (Miralax) 17 Gm Pack) 17 gm PO DAILY PRN PRN Reason: Constipation Stop: 10/18/22 19:14
--- NOTE | 2022-09-22 14:09 | Discharge Summary ---
Date of Service September 22, 2022 Admission HPI Per Admitting Provider This is a 77-year-old female with PMH of HFrEF, tachybradycardia syndrome status post pacemaker placement, paroxysmal atrial fibrillation, prediabetes, hypothyroidism, CKD 4, dementia, anxiety, hyperlipidemia and other medical problems listed below who presents with shortness of breath that woke up early this morning. Patient felt well yesterday although admittedly ate a lot of high sodium foods over the weekend including turkey and gravy. Woke up at 4 this morning short of breath. Improved upon sitting up but was found to be hypoxic in the 80s and sent to ED for further evaluation. Sisters are at bedside with her. Patient with recent admission for acute decompensated heart failure. Most recent echo from August 24 with EF of 25 to 29% with a severely dilated LV. Septal wall motion consistent with left bundle branch block. Grade 3 diastolic dysfunction. Mild MR and TR with mild pulmonary hypertension. Has a dual- chamber pacemaker due to history of tachybradycardia syndrome. Was seen in cardiology clinic on September 06 and was felt to be euvolemic on exam. Instructed to continue metoprolol 25 mg daily, amiodarone 200 mg daily and Eliquis 2.5 twice daily for paroxysmal atrial fibrillation. Taking Lasix 20 mg daily. Endorsing a dry cough along with shortness of breath. Also states she aspirated on a piece of bread 2 days ago and was coughing afterwards. Crowell hot this morning but did not take her temperature. Denies chills, headache, lightheadedness, chest pain, abdominal pain, dysuria, diarrhea or constipation. Admission Exam Per Admitting Provider Constitutional: WD/WN elderly F, on HF NC Eyes: PERRL, conjunctivae normal, anicteric sclerae ENMT: external ear and nose normal, oropharynx normal Neck: trachea midline, no thyromegaly Respiratory: + course breath sounds diffusely Cardiovascular: RRR, no murmur, no edema Chest (Breasts): Chest: normal inspection of chest Gastrointestinal (Abdomen): normal bowel sounds, soft, nontender Musculoskeletal: moves extremities, no LE edema Skin: no rashes, warm and dry Neurologic: PERRL, EOMI,, no face palsy, no dysarthria Psychiatric: A+Ox3, euthymic affect Genitourinary: no CVA tenderness Lymphatic: no lymphedema Principal Diagnosis Acute hypoxic respiratory failure w/ hypoxia CHF exacerbation (systolic) Discharge Exam Constitutional: WD/WN, on RA Eyes: PERRL, EOMI, conjunctivae normal, anicteric sclerae ENMT: external ear and nose normal, oropharynx normal Neck:K supple Respiratory: no respiratory distress and no labored breathing, CTAB, no wheezing or crackles Cardiovascular: RRR, no murmur, no edema Chest (Breasts): Chest: normal inspection of chest Gastrointestinal (Abdomen): normal bowel sounds, soft, nontender Musculoskeletal: extremities motor strength 5/5 Skin: no rashes, warm and dry Neurologic: PERRL, EOMI, no face palsy, no dysarthria, moves extremities Psychiatric: A+Ox3, euthymic affect Lymphatic: no lymphedema Discharge Data Allergies Allergy/AdvReac Type Severity Reaction Status Date / Time codeine Allergy Intermediate "UNSURE IF Verified 09/18/22 17:16 STILL ALLERGIC" Consultations 09/18/22 16:43 Consult Cardiology Routine 09/18/22 16:45 ED Decision to Admit Stat 09/19/22 13:26 Consult Pulmonology Routine Ordered Studies 09/19/22 14:47 US point of care ultrasound Urgent Hospital Course (1) Acute respiratory failure with hypoxia: (2) Pulmonary edema: (3) Acute exacerbation of CHF (congestive heart failure): (4) CKD (chronic kidney disease), stage IV: (5) Tachycardia-bradycardia syndrome: (6) Paroxysmal atrial fibrillation: (7) Aspiration pneumonia: (8) HTN (hypertension): (9) History of right MCA stroke: Plan This is a 77-year-old female with PMH of HFrEF, tachybradycardia syndrome status post pacemaker placement, paroxysmal atrial fibrillation, prediabetes, hypothyroidism, CKD 4, dementia, anxiety, hyperlipidemia and other medical problems listed below who presents with shortness of breath when she woke up this morning and was found to have decompensated heart failure. Acute hypoxic respiratory failure Acute decompensated heart failure Pulmonary edema SOB since this morning after increased sodium over the past few days Saturating at 93% on high flow nasal cannula oxygen 30 L/min on admission BNP 2,319 CXR with 1. Cardiomegaly with pulmonary edema. 2. Right greater than left layering pleural effusions with bibasilar and right midlung consolidative op acities Received 40 mg IV Lasix in the ED and another dose of 40 this evening Recent echo from earlier this month with EF 25-29% Strict I&Os with gooden in place, daily weights, low sodium diet, cardiology consulted Bipap if needed overnight, confirmed DNI status Clinically much improved, pt on RA and saturating 94% Plan to DC on daily lasix 20 mg Possible aspiration pneumonia H/o aspiration in the past, ? episode a few days ago Covering empirically with Augmentin Speech eval obtained CKD IV Creatinine baseline ~2 Current 2.2 Follow BMP as outpt Tachybradycardia syndrome hx of pacemaker placement. Interrogation ordered Atrial fibrillation Continue amiodarone, Toprol, Eliquis for anticoagulation HTN Normotensive. Continued amlodipine, Toprol - resume home meds on DC Prediabetes Carb consistent diet, monitor BSG on AM BMP, sliding scale insulin if needed History of CVA Continue Plavix, eliquis Home Health Attestation I certify that this patient is under my care and that I, or a physicians office support assistant working with me, had a face to-face encounter that meets the home health [id number] encounter requirements with this patient. The encounter with the patient was in whole, or in part, for the following medical condition, which is the primary reason for home health care (list medical condition): hypoxia- CHF I certify that, based on my findings, the following services are medically necessary home health services: My clinical findings support the need for the above services because: Home Safety Assessment OT Assess ADL Status and Restore Function w ADLs PT Assessment for Endurance / Balance / Strength PT Eval for Safety and Mobility PT Gait and Balance Training, Strengthening and Safety Skilled Nsg Assessment Skilled Nsg Assess Pt Illness, Disease and Sx Monitoring Vital Signs Further, I certify that my clinical findings support that this patient is homebound (i.e. absences from home require considerable and taxing effort and are for medical reasons or anglican services or infrequently or of short duration when for other reasons) because: Supportive Aid - Walker Certification for Home Health Services: Based on the above findings, I certify that this patient is confined to the home and needs intermittent longterm care, physical therapy and/or speech therapy or continues to need occupational therapy. The patient is under my care, and I have initiated the establishment of the plan of care. This patient will be followed by a physician who will periodically review the plan of care. Total Time Total Time Spent Total Time Spent (In Minutes): 40 Discharge Plan Discharge Items Patient Disposition: Home - Home Health Services Reason For Visit: HYPOXIA,DECOMPENSATED HF Discharge Diagnosis: Acute hypoxic respiratory failure w/ hypoxia CHF exacerbation (systolic) Activity: Per Instructions section Non-emergency contact: Primary Care Provider and Wood Block Artist Call non-emergency contact if: you have any medication questions and your symptoms worsen Follow-up/Referrals: Kasandra Antunez DO [Primary Care Provider] - (Date & Time 09/27/2022 10:20 AM Provider Kasandra Antunez DO Department [facility] ) Diet: Low Sodium (2gm) Addtl Attending Provider Instructions: Follow-up with your primary care doctor and house furnishings supervisor. Appointment with your primary care doctor was scheduled for you for September 27. Continue your home medications. Finish antibiotic treatment with Augmentin as prescribed. Monitor your salt intake, you should be on a low-sodium diet. Weigh yourself every day, as in instructions below. You will need blood work, BMP, to check your kidney function. Addtl Web Software Engineer Provider Instructions: Call your Primary Care doctor if any of the following symptoms or problems start or get worse: * Shortness of breath or difficulty breathing * Wake up at night short of breath * Chest pain * Cough * Swelling of your hands, feet, or legs * More fatigued or tired with your normal activity * Palpitations - sudden fast heart beats WEIGHT * Weigh yourself every morning after using the bathroom. * Use the same scale. * Wear the same amount of clothing. * Write your weight down on a chart. * Call your Primary Care doctor if you gain more than 2-3 pounds in 1-2 days. MEDICATIONS * Use this discharge instruction sheet for medication instructions. * Take your medications at the time your doctor ordered. * Do not skip a dose of your medicines. * If you miss a dose of medicine, take it as soon as possible, but DO NOT DOUBLE A DOSE. * Read your medicine information when you get home. * Know all of the side effects of your medicine. If in doubt, ask your pharmacist * Call your Primary Care doctor's office if you have any side effects. * Be sure all of your doctors know what medicine and herbs you take (including cold, flu, and herbal medicine). Take the following with you to your follow-up doctor appointments: * Weight Chart * Medication List * List of questions Do not drink excessive alcohol, beer or wine. Pending Studies at Discharge: No Stand-Alone Forms: [facility], Smoking Cessation Medications and DC Order Prescriptions: New amoxicillin-pot clavulanate 500-125 mg Tablet 1 tab PO BIDM 3 Days Qty: 6 0RF Continued clopidogrel 75 mg Tablet 75 mg PO QAM Qty: 30 0RF atorvastatin 40 mg Tablet 40 mg PO QPM Qty: 30 0RF escitalopram oxalate 10 mg tablet 10 mg PO QAM Eliquis 2.5 mg Tablet 2.5 mg PO BID Qty: 60 1RF metoprolol succinate 25 mg Tablet Extended Release 24 Hr 25 mg PO QAM Qty: 30 1RF allopurinol 100 mg tablet 100 mg PO QAM acetaminophen [Tylenol] 325 mg Capsule 325 mg PO Q6H PRN (Reason: pain/fever) furosemide 20 mg tablet 20 mg PO QAM famotidine 10 mg tablet 10 mg PO QAM amiodarone 200 mg tablet 200 mg PO QAM albuterol sulfate 90 mcg/actuation Hfa Aerosol Inhaler 2 puff INHALATION QID ondansetron 4 mg tablet,disintegrating 4 mg PO Q8 PRN (Reason: nausea or vomiting) levothyroxine 100 mcg tablet 100 mcg PO DAILYBB amlodipine [Norvasc] 5 mg Tablet 2.5 mg PO HS Qty: 30 0RF isosorbide mononitrate 30 mg Tablet Extended Release 24 Hr 30 mg PO QAM Qty: 30 1RF nitroglycerin [Nitrostat] 0.4 mg Tablet, Sublingual 0.4 mg sublingual UD PRN (Reason: chest pain) Qty: 10 0RF Rx Instructions: place under tongue 0.4mg every 5 minutes as needed for pain,chest Discharge Orders: Discharge Order (Routine); Ordered 09/22/22 Ordered By: Gregor Wood Admission Data Admit Date/Time: 09/18/22 17:42 Attending Provider: Gregor Wood Admit Provider: Gregor Wood Primary Care Provider: Kasandra Antunez Other Providers: Yobany La ; Gregor Wood ; Prasanna Shipman
== END 2022-09-22 14:54 | disposition home health service (06) | DRG 291 ==
LOC: ED 13:44 → 4W 17:42
DX: J69.0 Pneumonitis due to inhalation of food and vomit; H91.90 Unspecified hearing loss, unspecified ear; I48.0 Paroxysmal atrial fibrillation; Z79.899 Other long term (current) drug therapy; Z79.02 Long term (current) use of antithrombotics/antiplatelets; Z79.891 Long term (current) use of opiate analgesic; J96.01 Acute respiratory failure with hypoxia; I42.8 Other cardiomyopathies; F03.90 Unspecified dementia, unspecified severity, without behavioral disturbance, psychotic disturbance, mood disturbance, and anxiety; Z66 Do not resuscitate; I50.23 Acute on chronic systolic (congestive) heart failure; Z79.890 Hormone replacement therapy; R73.03 Prediabetes; Z79.01 Long term (current) use of anticoagulants; I13.0 Hypertensive heart and chronic kidney disease with heart failure and stage 1 through stage 4 chronic kidney disease, or unspecified chronic kidney disease; Z88.5 Allergy status to narcotic agent; Z82.49 Family history of ischemic heart disease and other diseases of the circulatory system; I44.7 Left bundle-branch block, unspecified; E03.9 Hypothyroidism, unspecified; N18.4 Chronic kidney disease, stage 4 (severe); Z86.73 Personal history of transient ischemic attack (TIA), and cerebral infarction without residual deficits; Z95.0 Presence of cardiac pacemaker

== ENCOUNTER 2023-01-06 12:07 | Inpatient (IN) ==
--- NOTE | 2023-01-06 12:59 | XRay Report ---
XR chest 1V not portable HISTORY: Dyspnea COMPARISON: Chest 09/21/2022. FINDINGS: No pneumothorax. The cardiac silhouette remains mildly enlarged. There is a left-sided dual -chamber pacemaker. Diffuse interstitial/vascular thickening with right perihilar hazy airspace opaci ties are noted. This suggests pulmonary edema. Trace bilateral pleural effusions. Prior cholecystecto my. IMPRESSION: Cardiomegaly with pulmonary edema and trace bilateral pleural effusions. The right lung airspace opac ities likely represent alveolar edema. A superimposed pneumonitis would be difficult to exclude. ACT 112: Negative or not required by law. Electronically signed by: Alex Rouse M.D. 01/06/2023 12:58 PM
[2023-01-06 13:12] LABS: Basophils # (auto) 0.03 K/uL (0-0.2); Basophils % (auto) 0.4 %; Hematocrit (blood only) 33.5 % (37.0-47.0); Hemoglobin 10.7 g/dl (12.0-16.0); Immature Granulocytes # (auto) 0.02 K/uL (0.01-0.20); Immature Granulocytes % (auto) 0.3 %; Lymphocytes # (auto) 0.83 K/uL (1.2-3.4); Lymphocytes % (auto) 11.2 %; Mean Corpuscular Hgb Conc 31.9 g/dL (32.0-36.0); Mean Corpuscular Volume 100.3 fL (80.0-100.0); Mean Platelet Volume 11.2 fL (9.4-12.4); Monocytes # (auto) 0.65 K/uL (0.11-0.59); Monocytes % (auto) 8.8 %; Neutrophils # (auto) 5.85 K/uL (1.40-6.50); Neutrophils % (auto) 79.3 %; Platelet Count 256 K/uL (130-400); RDW Coefficient of Variation 18.3 % (11.5-14.5); RDW Standard Deviation 68.6 fL (36.4-46.3); Red Blood Count 3.34 M/uL (4.20-5.40); White Blood Count 7.38 K/ul (4.8-10.8)
[2023-01-06 13:20] LABS: Alanine Aminotransferase 14 U/L (7-52); Albumin Globulin Ratio 1.3 (0.9-2); Albumin Level 4.2 gm/dl (3.4-5.0); Alkaline Phosphatase 130 U/L (34-104); Anion Gap 9 (3-11); Aspartate Aminotransferase 16 U/L (13-39); BUN Creatinine Ratio 14.3 (10-20); Bilirubin,Total 1.6 mg/dl (0.2-1.0); Blood Urea Nitrogen 28 mg/dl (6-23); Calcium 9.4 mg/dl (8.5-10.1); Carbon Dioxide 25 mmol/L (21-32); Chloride 107 mmol/L (98-107); Est GFR (African American) 27.9 ml/min; Est GFR (Non-African American) 24.1 ml/min; Globulin 3.3 gm/dl (2.5-4.0); Glucose 165 mg/dl (70-99(Fasting)); Potassium 4.1 mmol/L (3.5-5.1); Sodium 141 mmol/L (136-145); Total Protein 7.5 gm/dl (6.0-8.3)
[2023-01-06 13:24] LABS: Troponin I High Sensitivity 9.3 pg/ml (0-14)
[2023-01-06] MEDS ORDERED: FUROSEMIDE 40 MG/4 ML VIAL IV ONE (13:49)
--- NOTE | 2023-01-06 14:03 | Emergency Department Note ---
Impression & Plan Dyspnea, Hypoxia, Pulmonary edema ED Provider Note ED Provider Note NAME: TATUM NOEL AGE:77 SEX: Female : 1945 ARRIVES VIA: EMS INFORMANT: Patient ED PROVIDER(s): Celeste Baugh DO CHIEF COMPLAINT: Shortness of breath HPI: This is a 77-year-old female presents emerged department via EMS due to concern for increased difficulty breathing. Patient states she first began feeling increasingly short of breath last night. She states it seemed to worsen at this morning. She states her breathing is worse with exertion. She states she is a former smoker. Family at bedside also notes she has significant heart history including prior episodes of CHF. She does take a diuretic daily. Patient states she does not wear home oxygen, and intermittently uses breathing treatments. She states she has not used any today. Patient is anticoagulated due to history of atrial fibrillation. Patient denies any recent sick contacts, fevers or chills, change in cough, change in sputum production, chest pain, abd ominal pain, leg swelling, vomiting, or dizziness. Of note upon EMS arrival, patient found to be 85% on room air. PAST MEDICAL HISTORY:See Below PAST SURGICAL HISTORY:See Below FAMILY HISTORY:See Below SOCIAL HISTORY:See Below HOME MEDICATIONS:See Below ALLERGIES:See Below VITALS:See Below PHYSICAL EXAMINATION: GENERAL: alert, well appearing, well nourished, no distress, non-toxic EYE EXAM: normal conjunctiva, PERRL and EOM's grossly intact OROPHARYNX: no exudate, no erythema, lips, buccal mucosa, and tongue normal and mucous membranes are moist NECK: supple, no nuchal rigidity, no adenopathy, non-tender LUNGS: Clear to auscultation. Normal chest wall mechanics, no w/r/r HEART: no murmurs, S1 normal and S2 normal ABDOMEN: abdomen soft, non-tender, normo-active bowel sounds, no masses, no rebound or guarding. BACK: Back is symmetrical on inspection and there is no deformity, no midline tenderness, no CVA tenderness. SKIN: no rashes, petechiae, orbruising UPPER EXTREMITIES: upper extremities are grossly normal. FROM, nml pulses b/l. LOWER EXTREMITIES: Trace b/l pitting edema. FROM, nml pulses b/l. NEURO EXAM: Normal sensorium, cranial nerves II-XII grossly intact, normal speech, no facial droop,nogross weakness of arms, no gross weakness of legs. G ross sensation intact. No ataxia. Vital Signs: reviewed and remarkable Differential Diagnosis: Differential diagnoses includes but is not limited to pneumonia, bronchitis, COPD/Asthma exacerbation, pneumothorax, pulmonary embolism, congestive heart failure, acute coronary syndrome MEDICAL DECISION MAKING: This is a 77-year-old female presents emergency department due to concern for increased difficulty breathing and was found to be hypoxic by EMS at 85%. Patient does not wear home O2. Patient does have significant history of COPD as well as CHF. Patient does not do daily weight checks states she is not on a f luid restricted diet. She states she does take a diuretic daily. Labs drawn and sent, IV established, EKG performed and interpreted by me at bedside, chest x-ray performed interpreted by me at bedside. Chest x-ray with slight appearance of evolving pulmonary edema. Labs reassuring, and BNP was found to be elevated. Patient did report feeling improved here on oxygen via nasal cannula. No recent change in cough or sputum, no fevers or chills. Based on labs and imaging feel patient's presentation more consistent with evolving pulmonary edema/CHF. I do not suspect occult pneumonia or COPD exacerbation at this time. Patient's nasal swab negative for acute viral respiratory illness. Patient given additional IV Lasix here in case discussed with hospitalist for additional evaluation and management. Consultation(s): 1436: Discussed with Linn Wolfe hospitalist team ER Treatment Provided: See below Diagnostics Interpreted By Me: -ECG: Paced at 66, prolonged intervals, no acute ST/T wave changes -Cardiac Monitoring: An order was placed for continuous cardiac monitoring. The monitor shows a rate of 60 with paced rhythm. -Laboratory studies: As stated above and show below. -Imaging studies: X-ray: I interpreted the following studies. Chest: A single view study of the chest was reviewed and was negative for cardiomegaly, focal infiltrate, effusion, or wide mediastinum. Pacemaker noted, mild appearance of increased interstitial markings suggestive of pulmonary edema. Triage Nursing Note Reviewed Prior/Outside Records Reviewed -prior admission and cardiology records Procedures: [] Critical Care: [] Past Med/Surg History Medical History Acute systolic (congestive) heart failure Atrial fibrillation Degenerative disc disease, cervical Dyslipidemia MELQUIADES (generalized anxiety disorder) GERD without esophagitis Hearing loss History of adenomatous polyp of colon History of right MCA stroke HTN (hypertension) Hypertensive cardiomegaly LBBB (left bundle branch block) Pneumonia Type 2 diabetes mellitus Vitamin D deficiency Surgical History History of arthroplasty of left knee History of carpal tunnel surgery History of cholecystectomy History of D&C History of excision of lesion Back - Dr. 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 Feels Safe at Home: Yes Assistive Devices: None Allergies Allergies Allergy/AdvReac Type Severity Reaction Status Date / Time codeine Allergy Intermediate PSCHO Verified 01/06/23 14:57 COMPLICATIONS PER [facility] Home Meds Home Medications Medication Instructions Recorded Confirmed acetaminophen 325 mg capsule 325 mg PO Q6H PRN pain/fever 06/11/19 01/06/23 (Tylenol) allopurinol 100 mg tablet 100 mg PO QAM 06/11/19 01/06/23 escitalopram oxalate 10 mg tablet 10 mg PO QAM 08/12/20 01/06/23 amiodarone 200 mg tablet 200 mg PO QAM 08/03/21 01/06/23 albuterol sulfate 90 mcg/actuation 2 puff inhalation QID 10/23/21 01/06/23 aerosol inhaler levothyroxine 100 mcg tablet 100 mcg PO DAILYBB 10/23/21 01/06/23 ondansetron 4 mg disintegrating 4 mg PO Q8 PRN nausea or vomiting 10/23/21 01/06/23 tablet furosemide 20 mg tablet 20 mg PO QAM 09/18/22 01/06/23 atorvastatin 40 mg tablet 40 mg PO HS 01/06/23 01/06/23 famotidine 20 mg tablet 20 mg PO AMHS 01/06/23 01/06/23 triamcinolone acetonide 0.05 % 1 applic topical BID PRN Skin 01/06/23 01/06/23 topical ointment Irritation Previous Rx's Medication Instructions Recorded clopidogrel 75 mg tablet 75 mg PO QAM #30 tabs 02/24/20 apixaban 2.5 mg tablet (Eliquis) 2.5 mg PO BID #60 tabs 08/17/20 metoprolol succinate 25 mg 25 mg PO QAM #30 tabs 08/17/20 tablet,extended release 24 hr isosorbide mononitrate 30 mg 30 mg PO QAM #30 tabs 05/11/22 tablet,extended release 24 hr nitroglycerin 0.4 mg sublingual 0.4 mg sublingual UD PRN chest 05/11/22 tablet (Nitrostat) pain #10 tabs Results & Data (ED) Vital Signs Vital Signs - 24 hr 01/06/23 12:12 01/06/23 12:49 01/06/23 13:13 Temperature 36.8 C Temperature Source Temporal Artery Scan Pulse Rate 88 64 Pulse Rate from SpO2 Sensor Respiratory Rate 20 Respiratory Depth Normal Blood Pressure 130/71 Blood Pressure Mean 90 Blood Pressure Position Sitting Pulse Oximetry 94 91 Oxygen Delivery Method Nasal Cannula Room Air Oxygen Flow Rate 4 0 Sepsis Recent Fever Within 48 Hours No Sepsis New/Unexplained Change in Mental Status No Sepsis Action Taken by Nursing No Action Required Oxygen Flow Rate - Titration 2 Pulse Oximetry Post Tiitration 93 01/06/23 12:40 01/06/23 13:00 01/06/23 13:30 Temperature Temperature Source Pulse Rate 60 64 Pulse Rate from SpO2 Sensor 76 60 64 Respiratory Rate 13 13 Respiratory Depth Blood Pressure Blood Pressure Mean Blood Pressure Position Pulse Oximetry 93 91 94 Oxygen Delivery Method Nasal Cannula Oxygen Flow Rate 2 Sepsis Recent Fever Within 48 Hours Sepsis New/Unexplained Change in Mental Status Sepsis Action Taken by Nursing Oxygen Flow Rate - Titration Pulse Oximetry Post Tiitration 01/06/23 14:00 01/06/23 14:30 Temperature Temperature Source Pulse Rate 61 61 Pulse Rate from SpO2 Sensor 61 61 Respiratory Rate 18 18 Respiratory Depth Blood Pressure Blood Pressure Mean Blood Pressure Position Pulse Oximetry 95 93 Oxygen Delivery Method Nasal Cannula Oxygen Flow Rate 2 Sepsis Recent Fever Within 48 Hours Sepsis New/Unexplained Change in Mental Status Sepsis Action Taken by Nursing Oxygen Flow Rate - Titration Pulse Oximetry Post Tiitration Laboratory Data 01/06/23 12:17 01/06/23 12:17 Lab Results 01/06/23 01/06/23 01/06/23 Range/Units 12:17 12:17 12:17 WBC 7.38 (4.8-10.8) K/ul RBC 3.34 L (4.20-5.40) M/uL Hgb 10.7 L (12.0-16.0) g/dl Hct 33.5 L (37.0-47.0) % MCV 100.3 H (80.0-100.0) fL MCH 32.0 (25.0-34.0) pg MCHC 31.9 L (32.0-36.0) g/dL RDW Std Deviation 68.6 H (36.4-46.3) fL RDW Coeff of Etta 18.3 H (11.5-14.5) % Plt Count 256 (130-400) K/uL MPV 11.2 (9.4-12.4) fL Immature Gran % (Auto) 0.3 % Neut % (Auto) 79.3 % Lymph % (Auto) 11.2 % [place] % (Auto) 8.8 % Eos % (Auto) 0.0 % Baso % (Auto) 0.4 % Neut # (Auto) 5.85 (1.40-6.50) K/uL Lymph # (Auto) 0.83 L (1.2-3.4) K/uL [place] # (Auto) 0.65 H (0.11-0.59) K/uL Eos # (Auto) 0.00 (0-0.50) K/uL Baso # (Auto) 0.03 (0-0.2) K/uL Immature Gran # (Auto) 0.02 (0.01-0.20) K/uL Sodium 141 (136-145) mmol/L Potassium 4.1 (3.5-5.1) mmol/L Chloride 107 (98-107) mmol/L Carbon Dioxide 25 (21-32) mmol/L Anion Gap 9 (3-11) BUN 28 H (6-23) mg/dl Creatinine 1.96 H (0.6-1.2) mg/dl Est Cr Clr Drug Dosing Not Reportable Est GFR ( Amer) 27.9 ml/min Est GFR (Non-Af Amer) 24.1 ml/min BUN/Creatinine Ratio 14.3 (10-20) Glucose 165 H (70-99(Fasting)) mg/dl Calcium 9.4 (8.5-10.1) mg/dl Total Bilirubin 1.6 H (0.2-1.0) mg/dl AST 16 (13-39) U/L ALT 14 (7-52) U/L Alkaline Phosphatase 130 H (34-104) U/L Troponin I High Sens 9.3 (0-14) pg/ml B-Natriuretic Peptide 2403 H (0-100) pg/ml Total Protein 7.5 (6.0-8.3) gm/dl Albumin 4.2 (3.4-5.0) gm/dl Globulin 3.3 (2.5-4.0) gm/dl Albumin/Globulin Ratio 1.3 (0.9-2) Adenovirus (PCR) (NotDetected) B. pertussis DNA (PCR) (NotDetected) B.parapertussis DNA PCR (NotDetected) C. pneumoniae DNA (PCR) (NotDetected) Coronavirus OC43 (PCR) (NotDetected) Coronavirus HKU1 (PCR) (NotDetected) Coronavirus 229E (PCR) (NotDetected) SARS-CoV-2 (PCR) (NotDetected) Coronavirus NL63 (PCR) (NotDetected) Human Metapneumovir PCR (NotDetected) Influenza Type A (PCR) (NotDetected) Influenza Type B (PCR) (NotDetected) M. pneumoniae (PCR) (NotDetected) Parainfluenza 1 (PCR) (NotDetected) Parainfluenza 2 (PCR) (NotDetected) Parainfluenza 3 (PCR) (NotDetected) Parainfluenza 4 (PCR) (NotDetected) RSV (PCR) (NotDetected) Entero/Rhino (PCR) (NotDetected) 01/06/23 Range/Units 12:27 WBC (4.8-10.8) K/ul RBC (4.20-5.40) M/uL Hgb (12.0-16.0) g/dl Hct (37.0-47.0) % MCV (80.0-100.0) fL MCH (25.0-34.0) pg MCHC (32.0-36.0) g/dL RDW Std Deviation (36.4-46.3) fL RDW Coeff of Etta (11.5-14.5) % Plt Count (130-400) K/uL MPV (9.4-12.4) fL Immature Gran % (Auto) % Neut % (Auto) % Lymph % (Auto) % [place] % (Auto) % Eos % (Auto) % Baso % (Auto) % Neut # (Auto) (1.40-6.50) K/uL Lymph # (Auto) (1.2-3.4) K/uL [place] # (Auto) (0.11-0.59) K/uL Eos # (Auto) (0-0.50) K/uL Baso # (Auto) (0-0.2) K/uL Immature Gran # (Auto) (0.01-0.20) K/uL Sodium (136-145) mmol/L Potassium (3.5-5.1) mmol/L Chloride (98-107) mmol/L Carbon Dioxide (21-32) mmol/L Anion Gap (3-11) BUN (6-23) mg/dl Creatinine (0.6-1.2) mg/dl Est Cr Clr Drug Dosing Est GFR ( Amer) ml/min Est GFR (Non-Af Amer) ml/min BUN/Creatinine Ratio (10-20) Glucose (70-99(Fasting)) mg/dl Calcium (8.5-10.1) mg/dl Total Bilirubin (0.2-1.0) mg/dl AST (13-39) U/L ALT (7-52) U/L Alkaline Phosphatase (34-104) U/L Troponin I High Sens (0-14) pg/ml B-Natriuretic Peptide (0-100) pg/ml Total Protein (6.0-8.3) gm/dl Albumin (3.4-5.0) gm/dl Globulin (2.5-4.0) gm/dl Albumin/Globulin Ratio (0.9-2) Adenovirus (PCR) Not Detected (NotDetected) B. pertussis DNA (PCR) Not Detected (NotDetected) B.parapertussis DNA PCR Not Detected (NotDetected) C. pneumoniae DNA (PCR) Not Detected (NotDetected) Coronavirus OC43 (PCR) Not Detected (NotDetected) Coronavirus HKU1 (PCR) Not Detected (NotDetected) Coronavirus 229E (PCR) Not Detected (NotDetected) SARS-CoV-2 (PCR) Not Detected (NotDetected) Coronavirus NL63 (PCR) Not Detected (NotDetected) Human Metapneumovir PCR Not Detected (NotDetected) Influenza Type A (PCR) Not Detected (NotDetected) Influenza Type B (PCR) Not Detected (NotDetected) M. pneumoniae (PCR) Not Detected (NotDetected) Parainfluenza 1 (PCR) Not Detected (NotDetected) Parainfluenza 2 (PCR) Not Detected (NotDetected) Parainfluenza 3 (PCR) Not Detected (NotDetected) Parainfluenza 4 (PCR) Not Detected (NotDetected) RSV (PCR) Not Detected (NotDetected) Entero/Rhino (PCR) Not Detected (NotDetected) Administered Medications Albuterol (Albuterol Hfa 8 Gm Inhaler) 2 puffs INH QID [facility] Stop: 02/05/23 17:33 Last Admin: 01/07/23 10:51 Dose: 2 puffs Documented By: Admin: 01/07/23 07:10 Dose: 2 puffs Documented By: Admin: 01/06/23 22:56 Dose: 2 puffs Documented By: Admin: 01/06/23 22:03 Dose: Not Given Documented By: AMB [facility]op[facility] ([facility] 100 Mg Tab) [facility] [place]: 02/06/23 08:59 Last Admin: 01/07/23 08:12 Dose: 100 mg Documented By: [id number] Amiodarone HCl (Amiodarone 200 Mg Tab) 200 mg PO QAM [facility] Stop: 02/06/23 08:59 Last Admin: 01/07/23 08:12 Dose: 200 mg Documented By: [id number] Apixaban (Apixaban 2.5 Mg Tab) 2.5 mg PO BID [facility] Stop: 02/05/23 20:59 Last Admin: 01/07/23 08:13 Dose: 2.5 mg Documented By: [id number] Admin: 01/06/23 22:02 Dose: 2.5 mg Documented By: AMB Atorvastatin Calcium (Atorvastatin 40 Mg Tab) 40 mg PO HS [facility] Stop: 02/05/23 20:59 Last Admin: 01/06/23 20:56 Dose: 40 mg Documented By: AMB Clopidogrel Bisulfate (Clopidogrel Bisulfate 75 Mg Tab) [facility] [place]: 02/06/23 08:59 Last Admin: 01/07/23 08:13 Dose: 75 mg Documented By: [id number] Escitalopram Oxalate (Escitalopram Oxalate 10 Mg Tab) [facility] Stop: 02/06/23 08:59 Last Admin: 01/07/23 08:13 Dose: 10 mg Documented By: [id number] Famotidine (Famotidine 20 Mg Tab) 20 mg PO [facility] Stop: 02/05/23 20:59 Last Admin: 01/07/23 08:12 Dose: 20 mg Documented By: [id number] Admin: 01/06/23 20:56 Dose: 20 mg Documented By: AMB Furosemide (Furosemide 40 Mg/4 Ml Vial) 40 mg IV DAILY [facility] Stop: 02/06/23 08:59 Last Admin: 01/07/23 08:14 Dose: 40 mg Documented By: [id number] Insulin Aspart (Insulin Aspart Per Unit) 0 units SC [facility] Stop: 02/05/23 17:33 Last Admin: 01/07/23 08:15 Dose: Not Given Documented By: [id number] Admin: 01/06/23 21:00 Dose: Not Given Documented By: Admin: 01/06/23 20:23 Dose: Not Given Documented By: AMB Isosorbide Mononitrate (Isosorbide [place] Extended Rel 30 Mg Tabcr) [facility] Stop: 02/06/23 08:59 Last Admin: 01/07/23 08:13 Dose: 30 mg Documented By: [id number] Levothyroxine Sodium (Levothyroxine Sodium 100 Mcg Tablet) 100 mcg PO DAILYBB [facility] Stop: 02/06/23 06:29 Last Admin: 01/07/23 05:47 Dose: 100 mcg Documented By: [id number] Metoprolol Succinate (Metoprolol Succ 25mg Ext Rel Tab) 25 mg PO QAM [facility] Stop: 02/06/23 08:59 Last Admin: 01/07/23 08:13 Dose: 25 mg Documented By: [id number] Discontinued Medications Furosemide (Furosemide 40 Mg/4 Ml Vial) 40 mg IV ONE ONE Stop: 01/06/23 13:50 Last Admin: 01/06/23 14:12 Dose: 40 mg Documented By: KEITH Miscellaneous (Patient's Height &/Or Weight Needed) 1 each N/A Q5M ALYSSA Stop: 02/05/23 17:59 Last Admin: 01/07/23 01:11 Dose: Not Given Documented By: Admin: 01/06/23 20:47 Dose: 1 each Documented By: QUIN Imaging Data Radiologist's Impression: Chest X-Ray 01/06/23 12:15 XR chest 1V not portable HISTORY: Dyspnea COMPARISON: Chest 09/21/2022. FINDINGS: No pneumothorax. The cardiac silhouette remains mildly enlarged. There is a left-sided dual-chamber pacemaker. Diffuse interstitial/vascular thickening with right perihilar hazy airspace opacities are noted. This suggests pulmonary edema. Trace bilateral pleural effusions. Prior cholecystectomy. IMPRESSION: Cardiomegaly with pulmonary edema and trace bilateral pleural effusions. The right lung airspace opacities likely represent alveolar edema. A superimposed pneumonitis would be difficult to exclude. ACT 112: Negative or not required by law. Electronically signed by: Alex Rouse M.D. 01/06/2023 12:58 PM Discharge Plan Visit Data Chief Complaint: Shortness of Breath/Dyspnea ED Provider: Celeste Baugh Discharge Problem: Dyspnea, Hypoxia, Pulmonary edema Patient Disposition: Admitted As Inpatient Discharge Instructions Interventions: ED Discharge Assessment Last Done: 01/06/23 18:39
[2023-01-06 14:23] LABS: Adenovirus PCR Not Detected (NotDetected); Bordetella parapertussis PCR Not Detected (NotDetected); Bordetella pertussis PCR Not Detected (NotDetected); Chlamydia pneumoniae PCR Not Detected (NotDetected); Coronavirus 229E PCR Not Detected (NotDetected); Coronavirus CoV-2 (COVID19)PCR Not Detected (NotDetected); Coronavirus HKU1 PCR Not Detected (NotDetected); Coronavirus NL63 PCR Not Detected (NotDetected); Coronavirus OC43PCR Not Detected (NotDetected); Human Metapneumovirus PCR Not Detected (NotDetected); Influenza A PCR Not Detected (NotDetected); Influenza B PCR Not Detected (NotDetected); Mycoplasma pneumoniae PCR Not Detected (NotDetected); Parainfluenza Virus 1 PCR Not Detected (NotDetected); Parainfluenza Virus 2 PCR Not Detected (NotDetected); Parainfluenza Virus 3 PCR Not Detected (NotDetected); Parainfluenza Virus 4 PCR Not Detected (NotDetected); Respiratory Syncytial VirusPCR Not Detected (NotDetected); Rhinovirus/Enterovirus PCR Not Detected (NotDetected)
--- NOTE | 2023-01-06 14:39 | History & Physical Report ---
Date of Service January 06, 2023 Assessment & Plan (1) Acute respiratory failure with hypoxia: (2) Acute on chronic HFrEF (heart failure with reduced ejection fraction): Plan: History nonischemic cardiomyopathy, EF 25-29% on echo on 12/07/22, tachybradycardia syndrome s/p pacemaker, paroxysmal atrial fibrillation, CKD IV, prediabetes, HLD, anxiety, dementia and other medical problems listed below presented to ER with complaint of SOB x 1 day. EMS reported pulse ox of 85% on room air. Denies fever/chills. In ER, afebrile, vital stable, 95% on 2 L oxygen via nasal cannula No leukocytosis, BNP: 2403 CXR: Cardiomegaly with pulmonary edema and trace bilateral pleural effusions. The right lung airspace opacities likely represent alveolar edema. A superimposed pneumonitis would be difficult to exclude. History 12/07/2022 Limited echo: EF: 25-29%, severe diffuse left ventricular hypokinesis In ER given Lasix 40 mg IV. Patient reports urinating however was unable to collect urine for measurement Monitor I's and O's, daily weight, low-sodium diet Hold home Lasix Lasix 40 mg IV daily Cardiology consult CBC, BMP, magnesium in a.m. (3) Paroxysmal atrial fibrillation: Plan: Continue amiodarone, metoprolol succinate, Eliquis (4) Tachycardia-bradycardia syndrome: Plan: S/p pacemaker Pacemaker interrogation (5) CKD (chronic kidney disease), stage IV: Plan: Cr: 1.96. Baseline creatinine 2.0 -2.2 Monitor renal functions, avoid nephrotoxic agent when possible (6) HTN (hypertension): Plan: Stable Continue metoprolol succinate (7) Type 2 diabetes mellitus: Plan: History of prediabetes. Diet controlled A1c 6.2 on 05/09/2022 Monitor glucose on a.m. labs NovoLog correction sliding scale as needed (8) History of right MCA stroke: Plan: Continue Plavix, Eliquis, atorvastatin DVT Prophylaxis Eliquis DNR/DNI as per discussion with pt Follows with Dr Antunez for routine care Pt was seen and care coordinated with Dr Snyder. See addendum I spent a total of 80 minutes reviewing notes, outpatient records, labs, medication, documenting and providing care for this patient excluding time spent in the performance of separately billed services. History of Present Illness Chief Complaint: SOB Primary Care Provider: Kasandra Antunez, DO History nonischemic cardiomyopathy, EF 25-29% on echo on 12/07/22, tachybradycardia syndrome s/p pacemaker, paroxysmal atrial fibrillation, CKD IV, prediabetes, HLD, anxiety, dementia and other medical problems listed below presented to ER with complaint of SOB x 1 day. Patient states yesterday started noticing exertional shortness of breath with walking throughout her house. [place] increased exertional shortness of breath today and told family member and called EMS and is reported she had pulse ox of 85% on room air. Patient states past couple days has had cough productive of clear sputum. She reports history of intermittent coughing. Denies chest pain. Uses 2 pillows to sleep chronically. Denies fever/chills, diaphoresis, N/V/D, MARTINEZ, dizziness, syncope, vision changes, neck pain, CP, palpitations, hematemesis, sore throat, choking, otalgia, rhinorrhea, abdominal pain, paresthesias, weakness, extremity weakness, increased extremity edema, rashes, urinary symptoms. Allergies Allergy/AdvReac Type Severity Reaction Status Date / Time codeine Allergy Intermediate PSCHO Verified 01/06/23 14:57 COMPLICATIONS PER [facility] Home Medications Medication Instructions Recorded Confirmed Type acetaminophen 325 mg capsule 325 mg PO Q6H PRN pain/fever 06/11/19 01/06/23 History (Tylenol) allopurinol 100 mg tablet 100 mg PO QAM 06/11/19 01/06/23 History clopidogrel 75 mg tablet 75 mg PO QAM #30 tabs 02/24/20 01/06/23 Rx escitalopram oxalate 10 mg tablet 10 mg PO QAM 08/12/20 01/06/23 History apixaban 2.5 mg tablet (Eliquis) 2.5 mg PO BID #60 tabs 08/17/20 01/06/23 Rx metoprolol succinate 25 mg 25 mg PO QAM #30 tabs 08/17/20 01/06/23 Rx tablet,extended release 24 hr amiodarone 200 mg tablet 200 mg PO QAM 08/03/21 01/06/23 History albuterol sulfate 90 mcg/actuation 2 puff inhalation QID 10/23/21 01/06/23 History aerosol inhaler levothyroxine 100 mcg tablet 100 mcg PO DAILYBB 10/23/21 01/06/23 History ondansetron 4 mg disintegrating 4 mg PO Q8 PRN nausea or vomiting 10/23/21 01/06/23 History tablet isosorbide mononitrate 30 mg 30 mg PO QAM #30 tabs 05/11/22 01/06/23 Rx tablet,extended release 24 hr nitroglycerin 0.4 mg sublingual 0.4 mg sublingual UD PRN chest 05/11/22 01/06/23 Rx tablet (Nitrostat) pain #10 tabs furosemide 20 mg tablet 20 mg PO QAM 09/18/22 01/06/23 History atorvastatin 40 mg tablet 40 mg PO HS 01/06/23 01/06/23 History famotidine 20 mg tablet 20 mg PO AMHS 01/06/23 01/06/23 History triamcinolone acetonide 0.05 % 1 applic topical BID PRN Skin 01/06/23 01/06/23 History topical ointment Irritation Past Med/Surg History Medical History Acute systolic (congestive) heart failure Atrial fibrillation Degenerative disc disease, cervical Dyslipidemia MELQUIADES (generalized anxiety disorder) GERD without esophagitis Hearing loss History of adenomatous polyp of colon History of right MCA stroke HTN (hypertension) Hypertensive cardiomegaly LBBB (left bundle branch block) Pneumonia Type 2 diabetes mellitus Vitamin D deficiency Surgical History History of arthroplasty of left knee History of carpal tunnel surgery History of cholecystectomy History of D&C History of excision of lesion Back - Dr. Tucker Family History Other Diabetes Heart disease Social History Smoking Status: Never smoker Second Hand Exposure: No; Hx Alcohol Use: No Hx Substance Use: No Preferred Language: Turkmen Communication Ability: Effective Hearing Ability: Hard of Hearing Rubber Grinder Required: Video and No Beliefs That Will Affect Care: None marital status: / Current Living Situation: Alone Current Living Situation Comment: Son Rajeev comes and goes. Feels Safe at Home: Yes Assistive Devices: None Review of Systems Review of Systems: All systems reviewed & are unremarkable except as noted in HPI & below Physical Exam Physical Exam: General: no distress, WDWN Head: normocephalic, atraumatic Eyes: conjunctiva non-injected, anicteric ENT: normal inspection external ears, nose, mucous membranes moist Neck: supple, trachea midline Lungs: no respiratory distress on current 2L via NC, sat 95% on 2L, +diminished breath sounds bilaterally, with increased diminished breath sounds right base, no wheezing/rhonchi/rales noted CV: RRR, no murmur, trace pretibial edema Abd: normal BS, soft, non-tender Ext: no cyanosis, no calf tenderness Neuro: A&O x 3, no focal deficits noted, normal affect Skin: warm, dry Results & Data Results & Data Vital Signs (Past 12 Hours) Vital Signs Temp Pulse Resp BP Pulse Ox O2 Del Method O2 Flow Rate 01/06/23 14:00 61 18 95 Nasal Cannula 2 01/06/23 13:30 64 13 94 Nasal Cannula 2 01/06/23 13:00 60 13 91 01/06/23 12:40 93 01/06/23 13:13 91 Room Air 0 01/06/23 12:49 64 01/06/23 12:12 36.8 C 88 20 130/71 94 Nasal Cannula 4 Laboratory Results Short CBC 01/06/23 Range/Units 12:17 WBC 7.38 (4.8-10.8) K/ul Hgb 10.7 L (12.0-16.0) g/dl Hct 33.5 L (37.0-47.0) % Plt Count 256 (130-400) K/uL BMP 01/06/23 12:17 Sodium 141 Potassium 4.1 Chloride 107 Carbon Dioxide 25 BUN 28 H Creatinine 1.96 H Glucose 165 H Calcium 9.4 Liver Function 01/06/23 Range/Units 12:17 Total Bilirubin 1.6 H (0.2-1.0) mg/dl AST 16 (13-39) U/L ALT 14 (7-52) U/L Alkaline Phosphatase 130 H (34-104) U/L Albumin 4.2 (3.4-5.0) gm/dl Urine 01/06/23 Range/Units 15:14 Urine Color Yellow Urine Appearance Clear (Clear) Urine pH 6.5 (4.5-7.5) Ur Specific [place] 1.007 (1.000-1.030) Urine Protein Negative (Negative) Urine Glucose (UA) Negative (Negative) Diagnostic Findings Chest X-Ray 01/06/23 12:15 XR chest 1V not portable HISTORY: Dyspnea COMPARISON: Chest 09/21/2022. FINDINGS: No pneumothorax. The cardiac silhouette remains mildly enlarged. There is a left-sided dual-chamber pacemaker. Diffuse interstitial/vascular thickening with right perihilar hazy airspace opacities are noted. This suggests pulmonary edema. Trace bilateral pleural effusions. Prior cholecystectomy. IMPRESSION: Cardiomegaly with pulmonary edema and trace bilateral pleural effusions. The right lung airspace opacities likely represent alveolar edema. A superimposed pneumonitis would be difficult to exclude. ACT 112: Negative or not required by law. Electronically signed by: Alex Rouse M.D. 01/06/2023 12:58 PM Supervising Physician Co-Signing Physician Notes 77-year-old lady with HFrEF [EF of 25 to 29%], nonischemic cardiomyopathy, tachybradycardia syndrome status post pacemaker, paroxysmal A-fib, CKD stage IV, prediabetes, dementia presented to the ED with shortness of breath of 1 day duration. Patient also reports having cough with clear sputum for the last few days. Denies any aspiration or choking on food. Patient denies any palpitation or chest pain or belly pain or acute changes in her bowel or bladder habits. Patient does report that she has generous fluid intake and salt intake including increased chips intake. CBC and BMP fairly WNL, creatinine at her baseline. CXR with pulmonary edema. BNP elevated at 2405. Patient is DNR/DNI. Patient being managed for acute respiratory failure with hypoxia and acute on chronic heart failure with reduced ejection fraction. lasix 40 mg iv daily. Fluid restriction to 1800 mL/day. Low-salt diet. Cardiology consult. Telemetry monitoring. Continue home medications. Upon examination: GENERAL: Alert and oriented x3. NAD, on 3L NC O2. [place] HEENT: No pallor, no icterus. Pupils equal, round and reactive to light. Oral mucosa moist. NECK: No JVD, no neck masses. HEART: S1 and S2 heard. Regular rate and rhythm. No murmur, no gallop. RESPIRATORY SYSTEM: Normal AP diameter. No accessory muscle use. No wheezing, occ b/l crackles. decreased b/b breathsounds ABDOMEN: Soft, bowel sounds present, nontender, no distention. CENTRAL NERVOUS SYSTEM: No facial droop. Speech is clear. Obeys simple commands. Moves extremities. EXTREMITIES: No edema, no erythema seen. I have seen and examined the patient and have discussed the case with the provider above. I agree with the assessment and plan as stated. (6) HTN (hypertension) 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 type: essential hypertension Qualified Code(s): I10 - Essential (primary) hypertension (7) Type 2 diabetes mellitus Chronic kidney disease stage: stage 3 (moderate) Diabetes mellitus complication detail: with chronic kidney disease Diabetes mellitus complication status: with kidney complications Diabetes mellitus exterminator insulin use: without exterminator use Qualified Code(s): 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
[2023-01-06 15:25] LABS: Appearance Urine Clear (Clear); Bilirubin Urine Negative (Negative); Blood Urine Negative (Negative); Color Urine Yellow; Glucose Urine UA Negative (Negative); Ketones Urine Negative (Negative); Leukocyte Esterase Urine Negative (Negative); Nitrite Urine Negative (Negative); Protein Urine Negative (Negative); Specific Gravity Urine 1.007 (1.000-1.030); Urobilinogen Urine Negative (Negative); pH Urine 6.5 (4.5-7.5)
[2023-01-06] MEDS ORDERED: GLUCOSE 10 TAB/TUBE PO PRN (17:34)
[2023-01-06] MEDS ORDERED: ACETAMINOPHEN 325 MG TAB PO PRN (17:34)
[2023-01-06] MEDS ORDERED: GLUCOSE 40% GEL 15 GM TUBE PO PRN (17:34)
[2023-01-06] MEDS ORDERED: CARBOHYDRATES FOR HYPOGLYCEMIA PO PRN (17:34)
[2023-01-06] MEDS ORDERED: ONDANSETRON INJ 2 MG/ML 2 ML VIAL IV PRN (17:34)
[2023-01-06] MEDS ORDERED: POLYETHYLENE (MIRALAX) 17 GM PACK PO PRN (17:34)
[2023-01-06] MEDS ORDERED: GLUCAGON FOR INJ 1 MG VIAL SQ PRN (17:34)
[2023-01-06] MEDS ORDERED: DEXTROSE 50% 50 ML SYRINGE IV PRN (17:34)
[2023-01-06] MEDS: INSULIN ASPART PER UNIT CHARGE SC SCH ×2 (20:23→21:00)
[2023-01-06] MEDS: Patient's HEIGHT &/or WEIGHT Needed SCH (20:47)
[2023-01-06] MEDS: ATORVASTATIN 40 MG TAB PO SCH (20:56)
[2023-01-06] MEDS: FAMOTIDINE 20 MG TAB PO SCH (20:56)
[2023-01-06] MEDS: APIXABAN 2.5 MG TAB PO SCH (22:02)
[2023-01-06] MEDS: ALBUTEROL HFA 8 GM INHALER INH SCH ×2 (22:03→22:56)
[2023-01-07] MEDS: Patient's HEIGHT &/or WEIGHT Needed SCH (01:11)
--- NOTE | 2023-01-07 02:30 | Electrocardiogram Report ---
Test Reason : Blood Pressure : / mmHG Vent. Rate : 066 BPM Atrial Rate : 050 BPM P-R Int : 146 ms QRS Dur : 182 ms QT Int : 490 ms P-R-T Axes : 128 131 135 degrees QTc Int : 513 ms Poor data quality, interpretation may be adversely affected AV dual-paced rhythm with occasional supraventricular complexes Abnormal ECG When compared with ECG of 19-SEP-2022 06:27, No significant change was found Confirmed by Marvel Granados ([id number]) on 01/07/2023 2:30:24 AM Referred By: Confirmed By:Marvel Granados
[2023-01-07] MEDS: LEVOTHYROXINE SODIUM 100 MCG TABLET PO SCH (05:47)
[2023-01-07 06:17] LABS: BUN Creatinine Ratio 15.9 (10-20); Calcium 8.9 mg/dl (8.5-10.1); Creatinine Clr Calc Pharmacy 20.6 ml/min; Est GFR (Non-African American) 22.4 ml/min; Magnesium 1.8 mg/dl (1.7-2.4); Potassium 3.4 mmol/L (3.5-5.1)
[2023-01-07 06:26] LABS: Hemoglobin 9.9 g/dl (12.0-16.0); Mean Corpuscular Hemoglobin 30.9 pg (25.0-34.0); Mean Corpuscular Hgb Conc 30.9 g/dL (32.0-36.0); Mean Platelet Volume 11.3 fL (9.4-12.4); Platelet Count 238 K/uL (130-400); RDW Coefficient of Variation 18.2 % (11.5-14.5); RDW Standard Deviation 66.6 fL (36.4-46.3); White Blood Count 7.33 K/ul (4.8-10.8)
[2023-01-07] MEDS: ALBUTEROL HFA 8 GM INHALER INH SCH ×4 (07:10→20:44)
[2023-01-07] MEDS: FAMOTIDINE 20 MG TAB PO SCH ×2 (08:12→21:04)
[2023-01-07] MEDS: allopurinoL 100 MG TAB PO SCH (08:12)
[2023-01-07] MEDS: ESCITALOPRAM OXALATE 10 MG TAB PO SCH (08:13)
[2023-01-07] MEDS: ISOSORBIDE MONO EXTENDED REL 30 MG TABCR PO SCH (08:13)
[2023-01-07] MEDS: METOPROLOL SUCC 25MG EXT REL TAB PO SCH (08:13)
[2023-01-07] MEDS: APIXABAN 2.5 MG TAB PO SCH ×2 (08:13→21:04)
[2023-01-07] MEDS: CLOPIDOGREL BISULFATE 75 MG TAB PO SCH (08:13)
[2023-01-07] MEDS: INSULIN ASPART PER UNIT CHARGE SC SCH ×4 (08:15→21:08)
[2023-01-07 08:28] LABS: Estimated Average Glucose 123 mg/dl; Hemoglobin A1C 5.9 % (4.5-5.6)
[2023-01-07] MEDS ORDERED: FUROSEMIDE 40 MG/4 ML VIAL IV SCH (09:00)
[2023-01-07] MEDS ORDERED: AMIODARONE 200 MG TAB PO SCH (09:00)
--- NOTE | 2023-01-07 12:26 | Cardiology Consultation ---
Date of Consultation January 07, 2023 Assessment & Plan (1) Hypoxia: (2) Acute on chronic HFrEF (heart failure with reduced ejection fraction): (3) Paroxysmal atrial fibrillation: (4) Tachycardia-bradycardia syndrome: (5) CKD (chronic kidney disease), stage IV: Plan Patient is a complex 77-year-old female with notable history of nonischemic cardiomyopathy with reduced ejection fraction, chronic compensated congestive heart failure. Additional issues include paroxysmal atrial fibrillation on chronic amiodarone therapy. Patient referred for hospitalization with symptoms of exertional dyspnea and hypoxia. Chest x-ray reveals increased interstitial markings consistent with probable pulmonary edema but underlying interstitial lung disease not completely excluded raising concerns regarding chronic amiodarone usage. Exam not suggestive of significant volume overload. Plan: Continue IV diuresis, patient may need higher dose of oral diuretic on discharge given renal insufficiency and chronic heart failure Hold amiodarone Repeat chest x-ray possible CT scan following diuresis History of Present Illness Reason for Consultation: Acute on chronic systolic heart failure, hypoxia Requesting Physician: Dr. Wood Attending Physician: Gregor Wood MD History of Present Illness Patient is a 77-year-old female with complex underlying issues which include 1. Nonischemic cardiomyopathy with reduced ejection fraction EF 25 to 30% 2. Chronic systolic heart failure 3. Paroxysmal atrial fibrillation on amiodarone therapy since July 2020, anticoagulated with Eliquis 4. 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 5. Tachybradycardia syndrome status post dual-chamber permanent pacemaker 08/14/2020 with left bundle lead 6. CKD stage IIIIV Patient presents this admission noting having been observed to be more short of breath day prior to admission, hypoxic on evaluation by EMS after being summoned. Patient has received IV furosemide and currently appears comfortable. Denies any chest pains, tachypalpitations, dizziness. Has been aware of cough. Overall relatively poor historian. No fevers or chills. No changes in medications. No bleeding difficulties. Patient not aware of any acute weight gain or worsening lower extremity edema. Allergies Allergy/AdvReac Type Severity Reaction Status Date / Time codeine Allergy Intermediate PSCHO Verified 01/06/23 14:57 COMPLICATIONS PER [facility] Home Medications Medication Instructions Recorded Confirmed Type acetaminophen 325 mg capsule 325 mg PO Q6H PRN pain/fever 06/11/19 01/06/23 History (Tylenol) allopurinol 100 mg tablet 100 mg PO QAM 06/11/19 01/06/23 History clopidogrel 75 mg tablet 75 mg PO QAM #30 tabs 02/24/20 01/06/23 Rx escitalopram oxalate 10 mg tablet 10 mg PO QAM 08/12/20 01/06/23 History apixaban 2.5 mg tablet (Eliquis) 2.5 mg PO BID #60 tabs 08/17/20 01/06/23 Rx metoprolol succinate 25 mg 25 mg PO QAM #30 tabs 08/17/20 01/06/23 Rx tablet,extended release 24 hr amiodarone 200 mg tablet 200 mg PO QAM 08/03/21 01/06/23 History albuterol sulfate 90 mcg/actuation 2 puff inhalation QID 10/23/21 01/06/23 Hist ory aerosol inhaler levothyroxine 100 mcg tablet 100 mcg PO DAILYBB 10/23/21 01/06/23 History ondansetron 4 mg disintegrating 4 mg PO Q8 PRN nausea or vomiting 10/23/21 01/06/23 History tablet isosorbide mononitrate 30 mg 30 mg PO QAM #30 tabs 05/11/22 01/06/23 Rx tablet,extended release 24 hr nitroglycerin 0.4 mg sublingual 0.4 mg sublingual UD PRN chest 05/11/22 01/06/23 Rx tablet (Nitrostat) pain #10 tabs furosemide 20 mg tablet 20 mg PO QAM 09/18/22 01/06/23 History atorvastatin 40 mg tablet 40 mg PO HS 01/06/23 01/06/23 History famotidine 20 mg tablet 20 mg PO AMHS 01/06/23 01/06/23 History triamcinolone acetonide 0.05 % 1 applic topical BID PRN Skin 01/06/23 01/06/23 History topical ointment Irritation Patient History Medical History Acute systolic (congestive) heart failure Atrial fibrillation Degenerative disc disease, cervical Dyslipidemia MELQUIADES (generalized anxiety disorder) GERD without esophagitis Hearing loss History of adenomatous polyp of colon History of right MCA stroke HTN (hypertension) Hypertensive cardiomegaly LBBB (left bundle branch block) Pneumonia Type 2 diabetes mellitus Vitamin D deficiency Surgical History History of arthroplasty of left knee History of carpal tunnel surgery History of cholecystectomy History of D&C History of excision of lesion Back - Dr. Tucker Family History Other Diabetes Heart disease Social History Smoking Status: Never smoker Second Hand Exposure: No; Hx Alcohol Use: No Hx Substance Use: No Preferred Language: Telugu Communication Ability: Effective Hearing Ability: Hard of Hearing President And Cmo Required: Video and No Beliefs That Will Affect Care: None marital status: / Current Living Situation: Alone Current Living Situation Comment: Son Rajeev comes and goes. Feels Safe at Home: Yes Assistive Devices: None Physical Exam Constitutional: no acute distress Eyes: PERRL, conjunctivae normal, anicteric sclerae ENMT: external ear and nose normal, oropharynx normal Neck: trachea midline, no thyromegaly Respiratory: Auscultation: + diminished lung sounds and + rales Cardiovascular: Rate/Rhythm: regular rate and regular rhythm Vessels: no JVD Extremities: no edema Chest (Breasts): Chest: + pacemaker Gastrointestinal (Abdomen): normal bowel sounds, soft, nontender, no hepatosplenomegaly Results & Data Vital Signs (Past 12 Hours) Vital Signs Temp Pulse Pulse Pulse Resp BP BP 01/07/23 10:51 68 18 01/07/23 08:30 01/07/23 07:45 36.9 C 60 21 112/67 01/07/23 07:30 60 01/07/23 07:10 70 16 01/07/23 03:32 36.9 C 69 18 105/62 01/07/23 01:07 61 Pulse Ox O2 Del Method O2 Flow Rate 01/07/23 10:51 92 Room Air 01/07/23 08:30 Nasal Cannula 2 01/07/23 07:45 93 Nasal Cannula 2 01/07/23 07:30 01/07/23 07:10 94 Nasal Cannula 2 01/07/23 03:32 96 Nasal Cannula 2 01/07/23 01:07 Laboratory Results Laboratory Results - last 24 hr 01/06/23 01/06/23 01/06/23 12:17 12:17 12:17 WBC 7.38 RBC 3.34 L Hgb 10.7 L Hct 33.5 L MCV 100.3 H MCH 32.0 MCHC 31.9 L RDW Std Deviation 68.6 H RDW Coeff of Etta 18.3 H Plt Count 256 MPV 11.2 Immature Gran % (Auto) 0.3 Neut % (Auto) 79.3 Lymph % (Auto) 11.2 King % (Auto) 8.8 Eos % (Auto) 0.0 Baso % (Auto) 0.4 Neut # (Auto) 5.85 Lymph # (Auto) 0.83 L King # (Auto) 0.65 H Eos # (Auto) 0.00 Baso # (Auto) 0.03 Immature Gran # (Auto) 0.02 Sodium 141 Potassium 4.1 Chloride 107 Carbon Dioxide 25 Anion Gap 9 BUN 28 H Creatinine 1.96 H Est Cr Clr Drug Dosing Not Reportable Est GFR ( Amer) 27.9 Est GFR (Non-Af Amer) 24.1 BUN/Creatinine Ratio 14.3 Glucose 165 H POC Glucose Estimat Average Glucose Hemoglobin A1c Calcium 9.4 Magnesium Total Bilirubin 1.6 H AST 16 ALT 14 Alkaline Phosphatase 130 H Troponin I High Sens 9.3 B-Natriuretic Peptide 2403 H Total Protein 7.5 Albumin 4.2 Globulin 3.3 Albumin/Globulin Ratio 1.3 Procalcitonin Urine Color Urine Appearance Urine pH Ur Specific [place] Urine Protein Urine Glucose (UA) Urine Ketones Urine Blood Urine Nitrite Urine Bilirubin Urine Urobilinogen Ur Leukocyte Esterase Adenovirus (PCR) B. pertussis DNA (PCR) B.parapertussis DNA PCR C. pneumoniae DNA (PCR) Coronavirus OC43 (PCR) Coronavirus HKU1 (PCR) Coronavirus 229E (PCR) SARS-CoV-2 (PCR) Coronavirus NL63 (PCR) Human Metapneumovir PCR Influenza Type A (PCR) Influenza Type B (PCR) M. pneumoniae (PCR) Parainfluenza 1 (PCR) Parainfluenza 2 (PCR) Parainfluenza 3 (PCR) Parainfluenza 4 (PCR) RSV (PCR) Entero/Rhino (PCR) 01/06/23 01/06/23 01/06/23 12:27 15:14 16:18 WBC RBC Hgb Hct MCV MCH MCHC RDW Std Deviation RDW Coeff of Etta Plt Count MPV Immature Gran % (Auto) Neut % (Auto) Lymph % (Auto) King % (Auto) Eos % (Auto) Baso % (Auto) Neut # (Auto) Lymph # (Auto) King # (Auto) Eos # (Auto) Baso # (Auto) Immature Gran # (Auto) Sodium Potassium Chloride Carbon Dioxide Anion Gap BUN Creatinine Est Cr Clr Drug Dosing Est GFR ( Amer) Est GFR (Non-Af Amer) BUN/Creatinine Ratio Glucose POC Glucose Estimat Average Glucose Hemoglobin A1c Calcium Magnesium Total Bilirubin AST ALT Alkaline Phosphatase Troponin I High Sens B-Natriuretic Peptide Total Protein Albumin Globulin Albumin/Globulin Ratio Procalcitonin < 0.05 Urine Color Yellow Urine Appearance Clear Urine pH 6.5 Ur Specific [place] 1.007 Urine Protein Negative Urine Glucose (UA) Negative Urine Ketones Negative Urine Blood Negative Urine Nitrite Negative Urine Bilirubin Negative Urine Urobilinogen Negative Ur Leukocyte Esterase Negative Adenovirus (PCR) Not Detected B. pertussis DNA (PCR) Not Detected B.parapertussis DNA PCR Not Detected C. pneumoniae DNA (PCR) Not Detected Coronavirus OC43 (PCR) Not Detected Coronavirus HKU1 (PCR) Not Detected Coronavirus 229E (PCR) Not Detected SARS-CoV-2 (PCR) Not Detected Coronavirus NL63 (PCR) Not Detected Human Metapneumovir PCR Not Detected Influenza Type A (PCR) Not Detected Influenza Type B (PCR) Not Detected M. pneumoniae (PCR) Not Detected Parainfluenza 1 (PCR) Not Detected Parainfluenza 2 (PCR) Not Detected Parainfluenza 3 (PCR) Not Detected Parainfluenza 4 (PCR) Not Detected RSV (PCR) Not Detected Entero/Rhino (PCR) Not Detected 01/06/23 01/07/23 01/07/23 20:16 05:33 05:33 WBC 7.33 RBC 3.20 L Hgb 9.9 L Hct 32.0 L MCV 100.0 MCH 30.9 MCHC 30.9 L RDW Std Deviation 66.6 H RDW Coeff of Etta 18.2 H Plt Count 238 MPV 11.3 Immature Gran % (Auto) Neut % (Auto) Lymph % (Auto) King % (Auto) Eos % (Auto) Baso % (Auto) Neut # (Auto) Lymph # (Auto) King # (Auto) Eos # (Auto) Baso # (Auto) Immature Gran # (Auto) Sodium 141 Potassium 3.4 L Chloride 106 Carbon Dioxide 26 Anion Gap 9 BUN 33 H Creatinine 2.08 H Est Cr Clr Drug Dosing 20.6 Est GFR ( Amer) 26.0 Est GFR (Non-Af Amer) 22.4 BUN/Creatinine Ratio 15.9 Glucose 100 H POC Glucose 104 H Estimat Average Glucose Hemoglobin A1c Calcium 8.9 Magnesium 1.8 Total Bilirubin AST ALT Alkaline Phosphatase Troponin I High Sens B-Natriuretic Peptide Total Protein Albumin Globulin Albumin/Globulin Ratio Procalcitonin Urine Color Urine Appearance Urine pH Ur Specific [place] Urine Protein Urine Glucose (UA) Urine Ketones Urine Blood Urine Nitrite Urine Bilirubin Urine Urobilinogen Ur Leukocyte Esterase Adenovirus (PCR) B. pertussis DNA (PCR) B.parapertussis DNA PCR C. pneumoniae DNA (PCR) Coronavirus OC43 (PCR) Coronavirus HKU1 (PCR) Coronavirus 229E (PCR) SARS-CoV-2 (PCR) Coronavirus NL63 (PCR) Human Metapneumovir PCR Influenza Type A (PCR) Influenza Type B (PCR) M. pneumoniae (PCR) Parainfluenza 1 (PCR) Parainfluenza 2 (PCR) Parainfluenza 3 (PCR) Parainfluenza 4 (PCR) RSV (PCR) Entero/Rhino (PCR) 01/07/23 01/07/23 01/07/23 05:33 07:20 11:40 WBC RBC Hgb Hct MCV MCH MCHC RDW Std Deviation RDW Coeff of [place] Plt Count MPV Immature Gran % (Auto) Neut % (Auto) Lymph % (Auto) King % (Auto) Eos % (Auto) Baso % (Auto) Neut # (Auto) Lymph # (Auto) King # (Auto) Eos # (Auto) Baso # (Auto) Immature Gran # (Auto) Sodium Potassium Chloride Carbon Dioxide Anion Gap BUN Creatinine Est Cr Clr Drug Dosing Est GFR ( Amer) Est GFR (Non-Af Amer) BUN/Creatinine Ratio Glucose POC Glucose 111 H 143 H Estimat Average Glucose 123 Hemoglobin A1c 5.9 H Calcium Magnesium Total Bilirubin AST ALT Alkaline Phosphatase Troponin I High Sens B-Natriuretic Peptide Total Protein Albumin Globulin Albumin/Globulin Ratio Procalcitonin Urine Color Urine Appearance Urine pH Ur Specific [place] Urine Protein Urine Glucose (UA) Urine Ketones Urine Blood Urine Nitrite Urine Bilirubin Urine Urobilinogen Ur Leukocyte Esterase Adenovirus (PCR) B. pertussis DNA (PCR) B.parapertussis DNA PCR C. pneumoniae DNA (PCR) Coronavirus OC43 (PCR) Coronavirus HKU1 (PCR) Coronavirus 229E (PCR) SARS-CoV-2 (PCR) Coronavirus NL63 (PCR) Human Metapneumovir PCR Influenza Type A (PCR) Influenza Type B (PCR) M. pneumoniae (PCR) Parainfluenza 1 (PCR) Parainfluenza 2 (PCR) Parainfluenza 3 (PCR) Parainfluenza 4 (PCR) RSV (PCR) Entero/Rhino (PCR)
[2023-01-07] MEDS ORDERED: POTASSIUM CHLORIDE CRTAB 20 MEQ TABCR PO ONE (12:42)
--- NOTE | 2023-01-07 13:14 | Hospitalist Progress Note ---
Date of Service January 07, 2023 Assessment & Plan (1) Acute respiratory failure with hypoxia: (2) Acute on chronic HFrEF (heart failure with reduced ejection fraction): Plan: History nonischemic cardiomyopathy, EF 25-29% on echo on 12/07/22, tachybradycardia syndrome s/p pacemaker, paroxysmal atrial fibrillation, CKD IV, prediabetes, HLD, anxiety, dementia and other medical problems listed below presented to ER with complaint of SOB x 1 day. EMS reported pulse ox of 85% on room air. Denies fever/chills. In ER, afebrile, vital stable, 95% on 2 L oxygen via nasal cannula No leukocytosis, BNP: 2403 CXR: Cardiomegaly with pulmonary edema and trace bilateral pleural effusions. The right lung airspace opacities likely represent alveolar edema. A superimposed pneumonitis would be difficult to exclude. History 12/07/2022 Limited echo: EF: 25-29%, severe diffuse left ventricular hypokinesis In ER given Lasix 40 mg IV. Continue w/ IV lasix for now Cr up 2.3 Monitor I's and O's, daily weight, low-sodium diet Hold home Lasix Cardiology consulted - stopped amiodarone, repeat chest imaging tmrw CBC, BMP, magnesium in a.m. (3) Paroxysmal atrial fibrillation: Plan: Stopped amiodarone - cont. metoprolol succinate, Eliquis (4) Tachycardia-bradycardia syndrome: Plan: S/p pacemaker Pacemaker interrogation (5) CKD (chronic kidney disease), stage IV: Plan: Cr: 1.96 on admission Baseline creatinine 2.0 -2.2 Monitor renal functions, avoid nephrotoxic agent when possible (6) HTN (hypertension): Plan: Stable Continue metoprolol succinate (7) Type 2 diabetes mellitus: Plan: History of prediabetes. Diet controlled A1c 6.2 on 05/09/2022 Monitor glucose on a.m. labs NovoLog correction sliding scale as needed (8) History of right MCA stroke: Plan: Continue Plavix, Eliquis, atorvastatin DVT Prophylaxis Eliquis DNR/DNI as per discussion with pt Follows with Dr Antunez for routine care Admission and Anticipated Discharge Date Admission Date: January 06, 2023 Subjective Patient seen in follow-up of CHF exacerbation, hypoxia Currently sitting up in chair, in no acute distress She denies any chest pain palpitations, has some mild cough, with occasional white sputum production No fevers chills, no abdominal pain, no nausea vomiting Review of Systems Review of Systems: All systems reviewed & are unremarkable except as noted in Subjective Physical Exam Physical Exam: General: Elderly frail F in no distress Head: normocephalic, atraumatic Eyes: conjunctiva non-injected, anicteric ENT: normal inspection external ears, nose Neck: supple Lungs: no respiratory distress, somewhat diminished sounds, crackles CV: RRR, no murmur, trace pretibial edema Abd: normal BS, soft, non-tender Ext: moves extremities, no LE edema Neuro: A&O x 3, no focal deficits noted, normal affect Skin: warm, dry Results & Data Results & Data Vital Signs (Past 12 Hours) Vital Signs Temp Pulse Pulse Pulse Resp BP BP 01/07/23 10:51 68 18 01/07/23 08:30 01/07/23 07:45 36.9 C 60 21 112/67 01/07/23 07:30 60 01/07/23 07:10 70 16 01/07/23 03:32 36.9 C 69 18 105/62 Pulse Ox O2 Del Method O2 Flow Rate 01/07/23 10:51 92 Room Air 01/07/23 08:30 Nasal Cannula 2 01/07/23 07:45 93 Nasal Cannula 2 01/07/23 07:30 01/07/23 07:10 94 Nasal Cannula 2 01/07/23 03:32 96 Nasal Cannula 2 Laboratory Results 01/07/23 01/07/23 01/07/23 Range/Units 11:40 07:20 05:33 WBC (4.8-10.8) K/ul RBC (4.20-5.40) M/uL Hgb (12.0-16.0) g/dl Hct (37.0-47.0) % MCV (80.0-100.0) fL MCH (25.0-34.0) pg MCHC (32.0-36.0) g/dL RDW Std Deviation (36.4-46.3) fL RDW Coeff of Etta (11.5-14.5) % Plt Count (130-400) K/uL MPV (9.4-12.4) fL Immature Gran % (Auto) % Neut % (Auto) % Lymph % (Auto) % Allen % (Auto) % Eos % (Auto) % Baso % (Auto) % Neut # (Auto) (1.40-6.50) K/uL Lymph # (Auto) (1.2-3.4) K/uL Allen # (Auto) (0.11-0.59) K/uL Eos # (Auto) (0-0.50) K/uL Baso # (Auto) (0-0.2) K/uL Immature Gran # (Auto) (0.01-0.20) K/uL Sodium (136-145) mmol/L Potassium (3.5-5.1) mmol/L Chloride (98-107) mmol/L Carbon Dioxide (21-32) mmol/L Anion Gap (3-11) BUN (6-23) mg/dl Creatinine (0.6-1.2) mg/dl Est Cr Clr Drug Dosing Est GFR ( Amer) ml/min Est GFR (Non-Af Amer) ml/min BUN/Creatinine Ratio (10-20) Glucose (70-99(Fasting)) mg/dl POC Glucose 143 H 111 H (70-99) mg/dl Estimat Average Glucose 123 mg/dl Hemoglobin A1c 5.9 H (4.5-5.6) % Calcium (8.5-10.1) mg/dl Magnesium (1.7-2.4) mg/dl Total Bilirubin (0.2-1.0) mg/dl AST (13-39) U/L ALT (7-52) U/L Alkaline Phosphatase (34-104) U/L Troponin I High Sens (0-14) pg/ml B-Natriuretic Peptide (0-100) pg/ml Total Protein (6.0-8.3) gm/dl Albumin (3.4-5.0) gm/dl Globulin (2.5-4.0) gm/dl Albumin/Globulin Ratio (0.9-2) Procalcitonin (0-0.5) ng/ml Urine Color Urine Appearance (Clear) Urine pH (4.5-7.5) Ur Specific [place] (1.000-1.030) Urine Protein (Negative) Urine Glucose (UA) (Negative) Urine Ketones (Negative) Urine Blood (Negative) Urine Nitrite (Negative) Urine Bilirubin (Negative) Urine Urobilinogen (Negative) Ur Leukocyte Esterase (Negative) Adenovirus (PCR) (NotDetected) B. pertussis DNA (PCR) (NotDetected) B.parapertussis DNA PCR (NotDetected) C. pneumoniae DNA (PCR) (NotDetected) Coronavirus OC43 (PCR) (NotDetected) Coronavirus HKU1 (PCR) (NotDetected) Coronavirus 229E (PCR) (NotDetected) SARS-CoV-2 (PCR) (NotDetected) Coronavirus NL63 (PCR) (NotDetected) Human Metapneumovir PCR (NotDetected) Influenza Type A (PCR) (NotDetected) Influenza Type B (PCR) (NotDetected) M. pneumoniae (PCR) (NotDetected) Parainfluenza 1 (PCR) (NotDetected) Parainfluenza 2 (PCR) (NotDetected) Parainfluenza 3 (PCR) (NotDetected) Parainfluenza 4 (PCR) (NotDetected) RSV (PCR) (NotDetected) Entero/Rhino (PCR) (NotDetected) 01/07/23 01/07/23 01/06/23 Range/Units 05:33 05:33 20:16 WBC 7.33 (4.8-10.8) K/ul RBC 3.20 L (4.20-5.40) M/uL Hgb 9.9 L (12.0-16.0) g/dl Hct 32.0 L (37.0-47.0) % MCV 100.0 (80.0-100.0) fL MCH 30.9 (25.0-34.0) pg MCHC 30.9 L (32.0-36.0) g/dL RDW Std Deviation 66.6 H (36.4-46.3) fL RDW Coeff of Etta 18.2 H (11.5-14.5) % Plt Count 238 (130-400) K/uL MPV 11.3 (9.4-12.4) fL Immature Gran % (Auto) % Neut % (Auto) % Lymph % (Auto) % Allen % (Auto) % Eos % (Auto) % Baso % (Auto) % Neut # (Auto) (1.40-6.50) K/uL Lymph # (Auto) (1.2-3.4) K/uL Allen # (Auto) (0.11-0.59) K/uL Eos # (Auto) (0-0.50) K/uL Baso # (Auto) (0-0.2) K/uL Immature Gran # (Auto) (0.01-0.20) K/uL Sodium 141 (136-145) mmol/L Potassium 3.4 L (3.5-5.1) mmol/L Chloride 106 (98-107) mmol/L Carbon Dioxide 26 (21-32) mmol/L Anion Gap 9 (3-11) BUN 33 H (6-23) mg/dl Creatinine 2.08 H (0.6-1.2) mg/dl Est Cr Clr Drug Dosing 20.6 Est GFR ( Amer) 26.0 ml/min Est GFR (Non-Af Amer) 22.4 ml/min BUN/Creatinine Ratio 15.9 (10-20) Glucose 100 H (70-99(Fasting)) mg/dl POC Glucose 104 H (70-99) mg/dl Estimat Average Glucose mg/dl Hemoglobin A1c (4.5-5.6) % Calcium 8.9 (8.5-10.1) mg/dl Magnesium 1.8 (1.7-2.4) mg/dl Total Bilirubin (0.2-1.0) mg/dl AST (13-39) U/L ALT (7-52) U/L Alkaline Phosphatase (34-104) U/L Troponin I High Sens (0-14) pg/ml B-Natriuretic Peptide (0-100) pg/ml Total Protein (6.0-8.3) gm/dl Albumin (3.4-5.0) gm/dl Globulin (2.5-4.0) gm/dl Albumin/Globulin Ratio (0.9-2) Procalcitonin (0-0.5) ng/ml Urine Color Urine Appearance (Clear) Urine pH (4.5-7.5) Ur Specific [place] (1.000-1.030) Urine Protein (Negative) Urine Glucose (UA) (Negative) Urine Ketones (Negative) Urine Blood (Negative) Urine Nitrite (Negative) Urine Bilirubin (Negative) Urine Urobilinogen (Negative) Ur Leukocyte Esterase (Negative) Adenovirus (PCR) (NotDetected) B. pertussis DNA (PCR) (NotDetected) B.parapertussis DNA PCR (NotDetected) C. pneumoniae DNA (PCR) (NotDetected) Coronavirus OC43 (PCR) (NotDetected) Coronavirus HKU1 (PCR) (NotDetected) Coronavirus 229E (PCR) (NotDetected) SARS-CoV-2 (PCR) (NotDetected) Coronavirus NL63 (PCR) (NotDetected) Human Metapneumovir PCR (NotDetected) Influenza Type A (PCR) (NotDetected) Influenza Type B (PCR) (NotDetected) M. pneumoniae (PCR) (NotDetected) Parainfluenza 1 (PCR) (NotDetected) Parainfluenza 2 (PCR) (NotDetected) Parainfluenza 3 (PCR) (NotDetected) Parainfluenza 4 (PCR) (NotDetected) RSV (PCR) (NotDetected) Entero/Rhino (PCR) (NotDetected) 01/06/23 01/06/23 01/06/23 Range/Units 16:18 15:14 12:27 WBC (4.8-10.8) K/ul RBC (4.20-5.40) M/uL Hgb (12.0-16.0) g/dl Hct (37.0-47.0) % MCV (80.0-100.0) fL MCH (25.0-34.0) pg MCHC (32.0-36.0) g/dL RDW Std Deviation (36.4-46.3) fL RDW Coeff of Etta (11.5-14.5) % Plt Count (130-400) K/uL MPV (9.4-12.4) fL Immature Gran % (Auto) % Neut % (Auto) % Lymph % (Auto) % Allen % (Auto) % Eos % (Auto) % Baso % (Auto) % Neut # (Auto) (1.40-6.50) K/uL Lymph # (Auto) (1.2-3.4) K/uL Allen # (Auto) (0.11-0.59) K/uL Eos # (Auto) (0-0.50) K/uL Baso # (Auto) (0-0.2) K/uL Immature Gran # (Auto) (0.01-0.20) K/uL Sodium (136-145) mmol/L Potassium (3.5-5.1) mmol/L Chloride (98-107) mmol/L Carbon Dioxide (21-32) mmol/L Anion Gap (3-11) BUN (6-23) mg/dl Creatinine (0.6-1.2) mg/dl Est Cr Clr Drug Dosing Est GFR ( Amer) ml/min Est GFR (Non-Af Amer) ml/min BUN/Creatinine Ratio (10-20) Glucose (70-99(Fasting)) mg/dl POC Glucose (70-99) mg/dl Estimat Average Glucose mg/dl Hemoglobin A1c (4.5-5.6) % Calcium (8.5-10.1) mg/dl Magnesium (1.7-2.4) mg/dl Total Bilirubin (0.2-1.0) mg/dl AST (13-39) U/L ALT (7-52) U/L Alkaline Phosphatase (34-104) U/L Troponin I High Sens (0-14) pg/ml B-Natriuretic Peptide (0-100) pg/ml Total Protein (6.0-8.3) gm/dl Albumin (3.4-5.0) gm/dl Globulin (2.5-4.0) gm/dl Albumin/Globulin Ratio (0.9-2) Procalcitonin < 0.05 (0-0.5) ng/ml Urine Color Yellow Urine Appearance Clear (Clear) Urine pH 6.5 (4.5-7.5) Ur Specific [place] 1.007 (1.000-1.030) Urine Protein Negative (Negative) Urine Glucose (UA) Negative (Negative) Urine Ketones Negative (Negative) Urine Blood Negative (Negative) Urine Nitrite Negative (Negative) Urine Bilirubin Negative (Negative) Urine Urobilinogen Negative (Negative) Ur Leukocyte Esterase Negative (Negative) Adenovirus (PCR) Not Detected (NotDetected) B. pertussis DNA (PCR) Not Detected (NotDetected) B.parapertussis DNA PCR Not Detected (NotDetected) C. pneumoniae DNA (PCR) Not Detected (NotDetected) Coronavirus OC43 (PCR) Not Detected (NotDetected) Coronavirus HKU1 (PCR) Not Detected (NotDetected) Coronavirus 229E (PCR) Not Detected (NotDetected) SARS-CoV-2 (PCR) Not Detected (NotDetected) Coronavirus NL63 (PCR) Not Detected (NotDetected) Human Metapneumovir PCR Not Detected (NotDetected) Influenza Type A (PCR) Not Detected (NotDetected) Influenza Type B (PCR) Not Detected (NotDetected) M. pneumoniae (PCR) Not Detected (NotDetected) Parainfluenza 1 (PCR) Not Detected (NotDetected) Parainfluenza 2 (PCR) Not Detected (NotDetected) Parainfluenza 3 (PCR) Not Detected (NotDetected) Parainfluenza 4 (PCR) Not Detected (NotDetected) RSV (PCR) Not Detected (NotDetected) Entero/Rhino (PCR) Not Detected (NotDetected) 01/06/23 01/06/23 01/06/23 Range/Units 12:17 12:17 12:17 WBC 7.38 (4.8-10.8) K/ul RBC 3.34 L (4.20-5.40) M/uL Hgb 10.7 L (12.0-16.0) g/dl Hct 33.5 L (37.0-47.0) % MCV 100.3 H (80.0-100.0) fL MCH 32.0 (25.0-34.0) pg MCHC 31.9 L (32.0-36.0) g/dL RDW Std Deviation 68.6 H (36.4-46.3) fL RDW Coeff of Etta 18.3 H (11.5-14.5) % Plt Count 256 (130-400) K/uL MPV 11.2 (9.4-12.4) fL Immature Gran % (Auto) 0.3 % Neut % (Auto) 79.3 % Lymph % (Auto) 11.2 % Allen % (Auto) 8.8 % Eos % (Auto) 0.0 % Baso % (Auto) 0.4 % Neut # (Auto) 5.85 (1.40-6.50) K/uL Lymph # (Auto) 0.83 L (1.2-3.4) K/uL Allen # (Auto) 0.65 H (0.11-0.59) K/uL Eos # (Auto) 0.00 (0-0.50) K/uL Baso # (Auto) 0.03 (0-0.2) K/uL Immature Gran # (Auto) 0.02 (0.01-0.20) K/uL Sodium 141 (136-145) mmol/L Potassium 4.1 (3.5-5.1) mmol/L Chloride 107 (98-107) mmol/L Carbon Dioxide 25 (21-32) mmol/L Anion Gap 9 (3-11) BUN 28 H (6-23) mg/dl Creatinine 1.96 H (0.6-1.2) mg/dl Est Cr Clr Drug Dosing Not Reportable Est GFR ( Amer) 27.9 ml/min Est GFR (Non-Af Amer) 24.1 ml/min BUN/Creatinine Ratio 14.3 (10-20) Glucose 165 H (70-99(Fasting)) mg/dl POC Glucose (70-99) mg/dl Estimat Average Glucose mg/dl Hemoglobin A1c (4.5-5.6) % Calcium 9.4 (8.5-10.1) mg/dl Magnesium (1.7-2.4) mg/dl Total Bilirubin 1.6 H (0.2-1.0) mg/dl AST 16 (13-39) U/L ALT 14 (7-52) U/L Alkaline Phosphatase 130 H (34-104) U/L Troponin I High Sens 9.3 (0-14) pg/ml B-Natriuretic Peptide 2403 H (0-100) pg/ml Total Protein 7.5 (6.0-8.3) gm/dl Albumin 4.2 (3.4-5.0) gm/dl Globulin 3.3 (2.5-4.0) gm/dl Albumin/Globulin Ratio 1.3 (0.9-2) Procalcitonin (0-0.5) ng/ml Urine Color Urine Appearance (Clear) Urine pH (4.5-7.5) Ur Specific [place] (1.000-1.030) Urine Protein (Negative) Urine Glucose (UA) (Negative) Urine Ketones (Negative) Urine Blood (Negative) Urine Nitrite (Negative) Urine Bilirubin (Negative) Urine Urobilinogen (Negative) Ur Leukocyte Esterase (Negative) Adenovirus (PCR) (NotDetected) B. pertussis DNA (PCR) (NotDetected) B.parapertussis DNA PCR (NotDetected) C. pneumoniae DNA (PCR) (NotDetected) Coronavirus OC43 (PCR) (NotDetected) Coronavirus HKU1 (PCR) (NotDetected) Coronavirus 229E (PCR) (NotDetected) SARS-CoV-2 (PCR) (NotDetected) Coronavirus NL63 (PCR) (NotDetected) Human Metapneumovir PCR (NotDetected) Influenza Type A (PCR) (NotDetected) Influenza Type B (PCR) (NotDetected) M. pneumoniae (PCR) (NotDetected) Parainfluenza 1 (PCR) (NotDetected) Parainfluenza 2 (PCR) (NotDetected) Parainfluenza 3 (PCR) (NotDetected) Parainfluenza 4 (PCR) (NotDetected) RSV (PCR) (NotDetected) Entero/Rhino (PCR) (NotDetected) (6) HTN (hypertension) 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 type: essential hypertension Qualified Code(s): I10 - Essential (primary) hypertension (7) Type 2 diabetes mellitus Chronic kidney disease stage: stage 3 (moderate) Diabetes mellitus complication detail: with chronic kidney disease Diabetes mellitus complication status: with kidney complications Diabetes mellitus detention insulin use: without intermediate designer use Qualified Code(s): 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
[2023-01-07] MEDS: ATORVASTATIN 40 MG TAB PO SCH (21:04)
[2023-01-08] MEDS: LEVOTHYROXINE SODIUM 100 MCG TABLET PO SCH (05:46)
[2023-01-08 05:59] LABS: Hematocrit (blood only) 31.7 % (37.0-47.0); Hemoglobin 10.1 g/dl (12.0-16.0); Mean Corpuscular Hemoglobin 31.5 pg (25.0-34.0); Mean Corpuscular Hgb Conc 31.9 g/dL (32.0-36.0); Mean Corpuscular Volume 98.8 fL (80.0-100.0); Mean Platelet Volume 11.3 fL (9.4-12.4); Platelet Count 224 K/uL (130-400); RDW Coefficient of Variation 17.8 % (11.5-14.5); Red Blood Count 3.21 M/uL (4.20-5.40); White Blood Count 7.12 K/ul (4.8-10.8)
[2023-01-08 06:11] LABS: Creatinine Clr Calc Pharmacy 18.2 ml/min; Est GFR (African American) 22.2 ml/min; Est GFR (Non-African American) 19.1 ml/min; Magnesium 1.9 mg/dl (1.7-2.4); Phosphorus 3.8 mg/dl (2.5-4.9); Potassium 3.9 mmol/L (3.5-5.1)
[2023-01-08] MEDS: ALBUTEROL HFA 8 GM INHALER INH SCH ×4 (07:28→19:21)
[2023-01-08] MEDS: allopurinoL 100 MG TAB PO SCH (07:50)
[2023-01-08] MEDS: ISOSORBIDE MONO EXTENDED REL 30 MG TABCR PO SCH (07:50)
[2023-01-08] MEDS: CLOPIDOGREL BISULFATE 75 MG TAB PO SCH (07:50)
[2023-01-08] MEDS: METOPROLOL SUCC 25MG EXT REL TAB PO SCH (07:51)
[2023-01-08] MEDS: ESCITALOPRAM OXALATE 10 MG TAB PO SCH (07:51)
[2023-01-08] MEDS: APIXABAN 2.5 MG TAB PO SCH ×2 (07:51→22:09)
[2023-01-08] MEDS: FAMOTIDINE 20 MG TAB PO SCH ×2 (07:51→22:09)
[2023-01-08] MEDS: INSULIN ASPART PER UNIT CHARGE SC SCH ×4 (07:51→20:37)
--- NOTE | 2023-01-08 11:58 | Cardiology Progress Note ---
Date of Service January 08, 2023 Assessment & Plan (1) Hypoxia: (2) Acute on chronic HFrEF (heart failure with reduced ejection fraction): (3) Paroxysmal atrial fibrillation: (4) Tachycardia-bradycardia syndrome: (5) CKD (chronic kidney disease), stage IV: Plan Patient is a complex 77-year-old female with notable history of nonischemic cardiomyopathy with reduced ejection fraction, chronic compensated congestive heart failure. Additional issues include paroxysmal atrial fibrillation on chronic amiodarone therapy. Patient referred for hospitalization with symptoms of exertional dyspnea and hypoxia. Chest x-ray reveals increased interstitial markings consistent with probable pulmonary edema but underlying interstitial lung disease not completely excluded raising concerns regarding chronic amiodarone usage. Exam not suggestive of significant volume overload. Plan: IV furosemide held this morning, renal function declined. Exam not consistent with volume overload Hold amiodarone CT chest without contrast assess for interstitial lung disease given exam Admission and Anticipated Discharge Date Admission Date: January 06, 2023 Subjective Patient seen and examined, chart, medications, telemetry reviewed. Currently comfortable on room air no hypoxia. No chest pains no dizziness Renal function decline with diuresis No edema on exam no arrhythmia Review of Systems Review of Systems: All systems reviewed & are unremarkable except as noted in Subjective Physical Exam Constitutional: no acute distress Eyes: PERRL, conjunctivae normal, anicteric sclerae ENMT: external ear and nose normal, oropharynx normal Neck: trachea midline, no thyromegaly Respiratory: Auscultation: + diminished lung sounds and + wheezes (Scattered left base) Cardiovascular: Rate/Rhythm: regular rate and regular rhythm Vessels: no JVD Extremities: no edema Chest (Breasts): Chest: + pacemaker Gastrointestinal (Abdomen): normal bowel sounds, soft, nontender, no hepatosplenomegaly Results & Data Vital Signs (Past 12 Hours) Vital Signs Temp Pulse Pulse Pulse Resp BP BP 01/08/23 11:31 36.5 C 68 16 112/74 01/08/23 10:55 64 16 01/08/23 08:30 01/08/23 07:44 36.5 C 64 16 124/76 01/08/23 07:28 64 16 01/08/23 06:51 61 01/08/23 02:53 36.7 C 65 18 110/68 Pulse Ox O2 Del Method 01/08/23 11:31 95 Room Air 01/08/23 10:55 96 Room Air 01/08/23 08:30 Room Air 01/08/23 07:44 94 Room Air 01/08/23 07:28 94 Room Air 01/08/23 06:51 01/08/23 02:53 96 Room Air Laboratory Results Laboratory Results - last 24 hr 01/07/23 01/07/23 01/08/23 16:19 20:30 05:23 WBC 7.12 RBC 3.21 L Hgb 10.1 L Hct 31.7 L MCV 98.8 MCH 31.5 MCHC 31.9 L RDW Std Deviation 65.0 H RDW Coeff of Etta 17.8 H Plt Count 224 MPV 11.3 Sodium Potassium Chloride Carbon Dioxide Anion Gap BUN Creatinine Est Cr Clr Drug Dosing Est GFR ( Amer) Est GFR (Non-Af Amer) BUN/Creatinine Ratio Glucose POC Glucose 112 H 105 H Calcium Phosphorus Magnesium 01/08/23 01/08/23 01/08/23 05:23 07:29 11:45 WBC RBC Hgb Hct MCV MCH MCHC RDW Std Deviation RDW Coeff of Etta Plt Count MPV Sodium 140 Potassium 3.9 Chloride 106 Carbon Dioxide 25 Anion Gap 9 BUN 45 H Creatinine 2.37 H Est Cr Clr Drug Dosing 18.2 Est GFR ( Amer) 22.2 Est GFR (Non-Af Amer) 19.1 BUN/Creatinine Ratio 19.0 Glucose 93 POC Glucose 122 H 108 H Calcium 9.0 Phosphorus 3.8 Magnesium 1.9
--- NOTE | 2023-01-08 12:53 | CT Scan Report ---
CT chest diagnostic wo con CT DOSE: 279.14 mGy.cm HISTORY: Question interstitial lung disease on amiodarone TECHNIQUE: Multiaxial CT images of the chest were performed without contrast. A dose lowering techni que was utilized adhering to the principles of ALARA. COMPARISON: Chest 01/06/2023. FINDINGS: The central airways are patent. No pneumothorax. Trace bilateral pleural effusions. Mild in terlobular septal thickening with patchy groundglass airspace opacities most pronounced within the up per lung zones. There is mild respiratory motion artifact. No acute fractures identified. There is le ft-sided pacemaker noted. Normal esophagus. The heart is enlarged. A few prominent mediastinal lymph nodes which may be reactive. Mild calcified plaque within the normal caliber thoracic aorta. A few bi basilar linear densities favor subsegmental atelectasis. Mild to moderate coronary artery calcificati ons are noted. A hyperdense liver which can be seen in the setting of amiodarone toxicity. The visual ized spleen and adrenal glands unremarkable. Prior cholecystectomy. The visualized bilateral renal cy sts are noted. IMPRESSION: 1. Mild interlobular septal thickening with patchy groundglass airspace opacities most pronounced wit hin the upper lung zones. In conjunction with the cardiomegaly and trace bilateral pleural effusions this favors mild pulmonary edema. Scattered areas of air trapping or an atypical pneumonia could also have a similar appearance. 2. Hyperdense liver with can be seen in the setting of amiodarone toxicity. ACT 112: Negative or not required by law. Electronically signed by: Alex Rouse M.D. 01/08/2023 12:51 PM
--- NOTE | 2023-01-08 12:55 | Hospitalist Progress Note ---
Date of Service January 08, 2023 Assessment & Plan (1) Acute respiratory failure with hypoxia: (2) Acute on chronic HFrEF (heart failure with reduced ejection fraction): Plan: History nonischemic cardiomyopathy, EF 25-29% on echo on 12/07/22, tachybradycardia syndrome s/p pacemaker, paroxysmal atrial fibrillation, CKD IV, prediabetes, HLD, anxiety, dementia and other medical problems listed below presented to ER with complaint of SOB x 1 day. EMS reported pulse ox of 85% on room air. Denies fever/chills. In ER, afebrile, vital stable, 95% on 2 L oxygen via nasal cannula No leukocytosis, BNP: 2403 CXR: Cardiomegaly with pulmonary edema and trace bilateral pleural effusions. The right lung airspace opacities likely represent alveolar edema. A superimposed pneumonitis would be difficult to exclude. History 12/07/2022 Limited echo: EF: 25-29%, severe diffuse left ventricular hypokinesis In ER given Lasix 40 mg IV. Continued w/ IV lasix while inpt. Stopped now Cr up 2.37 Monitor I's and O's, daily weight, low-sodium diet Hold home Lasix Cardiology consulted - stopped amiodarone, repeat chest imaging today CT chest ordered CBC, BMP, magnesium in a.m. (3) Paroxysmal atrial fibrillation: Plan: Stopped amiodarone - cont. metoprolol succinate, Eliquis (4) Tachycardia-bradycardia syndrome: Plan: S/p pacemaker Pacemaker interrogation (5) CKD (chronic kidney disease), stage IV: Plan: Cr: 1.96 on admission Baseline creatinine 2.0 -2.2 Monitor renal functions, avoid nephrotoxic agent when possible (6) HTN (hypertension): Plan: Stable Continue metoprolol succinate (7) Type 2 diabetes mellitus: Plan: History of prediabetes. Diet controlled A1c 6.2 on 05/09/2022 Monitor glucose on a.m. labs NovoLog correction sliding scale as needed (8) History of right MCA stroke: Plan: Continue Plavix, Eliquis, atorvastatin DVT Prophylaxis Eliquis DNR/DNI as per discussion with pt Follows with Dr Antunez for routine care Admission and Anticipated Discharge Date Admission Date: January 06, 2023 Subjective Patient seen in follow-up of CHF exacerbation, hypoxia Currently laying in bed, in no acute distress, on RA saturating 95% She denies any chest pain palpitations, shortness of breath, abd. pain, n/v No fevers chills She is inquiring about going home. CT chest ordered by cardiology Review of Systems Review of Systems: All systems reviewed & are unremarkable except as noted in Subjective Physical Exam Physical Exam: General: Elderly frail F in no distress Head: normocephalic, atraumatic Eyes: conjunctiva non-injected, anicteric ENT: normal inspection external ears, nose Neck: supple Lungs: no respiratory distress, somewhat diminished sounds, crackles CV: RRR, no murmur, trace pretibial edema Abd: normal BS, soft, non-tender Ext: moves extremities, no LE edema Neuro: A&O x 3, no focal deficits noted, normal affect Skin: warm, dry Results & Data Results & Data Vital Signs (Past 12 Hours) Vital Signs Temp Pulse Pulse Pulse Resp BP BP 01/08/23 11:31 36.5 C 68 16 112/74 01/08/23 10:55 64 16 01/08/23 08:30 01/08/23 07:44 36.5 C 64 16 124/76 01/08/23 07:28 64 16 01/08/23 06:51 61 01/08/23 02:53 36.7 C 65 18 110/68 Pulse Ox O2 Del Method 01/08/23 11:31 95 Room Air 01/08/23 10:55 96 Room Air 01/08/23 08:30 Room Air 01/08/23 07:44 94 Room Air 01/08/23 07:28 94 Room Air 01/08/23 06:51 01/08/23 02:53 96 Room Air Laboratory Results 01/08/23 01/08/23 01/08/23 Range/Units 11:45 07:29 05:23 WBC (4.8-10.8) K/ul RBC (4.20-5.40) M/uL Hgb (12.0-16.0) g/dl Hct (37.0-47.0) % MCV (80.0-100.0) fL MCH (25.0-34.0) pg MCHC (32.0-36.0) g/dL RDW Std Deviation (36.4-46.3) fL RDW Coeff of Etta (11.5-14.5) % Plt Count (130-400) K/uL MPV (9.4-12.4) fL Sodium 140 (136-145) mmol/L Potassium 3.9 (3.5-5.1) mmol/L Chloride 106 (98-107) mmol/L Carbon Dioxide 25 (21-32) mmol/L Anion Gap 9 (3-11) BUN 45 H (6-23) mg/dl Creatinine 2.37 H (0.6-1.2) mg/dl Est Cr Clr Drug Dosing 18.2 ml/min Est GFR ( Amer) 22.2 ml/min Est GFR (Non-Af Amer) 19.1 ml/min BUN/Creatinine Ratio 19.0 (10-20) Glucose 93 (70-99(Fasting)) mg/dl POC Glucose 108 H 122 H (70-99) mg/dl Calcium 9.0 (8.5-10.1) mg/dl Phosphorus 3.8 (2.5-4.9) mg/dl Magnesium 1.9 (1.7-2.4) mg/dl 01/08/23 01/07/23 01/07/23 Range/Units 05:23 20:30 16:19 WBC 7.12 (4.8-10.8) K/ul RBC 3.21 L (4.20-5.40) M/uL Hgb 10.1 L (12.0-16.0) g/dl Hct 31.7 L (37.0-47.0) % MCV 98.8 (80.0-100.0) fL MCH 31.5 (25.0-34.0) pg MCHC 31.9 L (32.0-36.0) g/dL RDW Std Deviation 65.0 H (36.4-46.3) fL RDW Coeff of Etta 17.8 H (11.5-14.5) % Plt Count 224 (130-400) K/uL MPV 11.3 (9.4-12.4) fL Sodium (136-145) mmol/L Potassium (3.5-5.1) mmol/L Chloride (98-107) mmol/L Carbon Dioxide (21-32) mmol/L Anion Gap (3-11) BUN (6-23) mg/dl Creatinine (0.6-1.2) mg/dl Est Cr Clr Drug Dosing ml/min Est GFR ( Amer) ml/min Est GFR (Non-Af Amer) ml/min BUN/Creatinine Ratio (10-20) Glucose (70-99(Fasting)) mg/dl POC Glucose 105 H 112 H (70-99) mg/dl Calcium (8.5-10.1) mg/dl Phosphorus (2.5-4.9) mg/dl Magnesium (1.7-2.4) mg/dl Medications Administered Current Inpatient Medications Acetaminophen (Acetaminophen 325 Mg Tab) 650 mg PO Q4H PRN PRN Reason: Pain or Fever Stop: 02/05/23 17:33 Albuterol (Albuterol Hfa 8 Gm Inhaler) 2 puffs INH QID [facility] Stop: 02/05/23 17:33 Last Admin: 01/08/23 10:54 Dose: 2 puffs Allopurinol (Allopurinol 100 Mg Tab) 100 mg PO QAM [facility] Stop: 02/06/23 08:59 Last Admin: 01/08/23 07:50 Dose: 100 mg Amiodarone HCl (Amiodarone 200 Mg Tab) 200 mg PO QAM [facility] Stop: 02/06/23 08:59 Last Admin: 01/07/23 08:12 Dose: 200 mg Apixaban (Apixaban 2.5 Mg Tab) 2.5 mg PO BID [facility] Stop: 02/05/23 20:59 Last Admin: 01/08/23 07:51 Dose: 2.5 mg Atorvastatin Calcium (Atorvastatin 40 Mg Tab) 40 mg PO HS [facility] Stop: 02/05/23 20:59 Last Admin: 01/07/23 21:04 Dose: 40 mg Clopidogrel Bisulfate (Clopidogrel Bisulfate 75 Mg Tab) 75 mg PO QAM [facility] Stop: 02/06/23 08:59 Last Admin: 01/08/23 07:50 Dose: 75 mg Dextrose (Dextrose 50% 50 Ml Syringe) 25 - 50 ml IV UD PRN; Protocol PRN Reason: Hypoglycemia Protocol Stop: 02/05/23 17:33 Escitalopram Oxalate (Escitalopram Oxalate 10 Mg Tab) 10 mg PO QAM [facility] Stop: 02/06/23 08:59 Last Admin: 01/08/23 07:51 Dose: 10 mg Famotidine (Famotidine 20 Mg Tab) 20 mg PO [facility] Stop: 02/05/23 20:59 Last Admin: 01/08/23 07:51 Dose: 20 mg Furosemide (Furosemide 40 Mg/4 Ml Vial) 40 mg IV DAILY [facility] Stop: 02/06/23 08:59 Last Admin: 01/07/23 08:14 Dose: 40 mg Glucagon (Glucagon For Inj 1 Mg Vial) 1 mg SQ UD PRN; Protocol PRN Reason: Hypoglycemia Protocol Stop: 02/05/23 17:33 Glucose (Glucose 10 Tab/Tube) 4 - 8 tab PO UD PRN; Protocol PRN Reason: Hypoglycemia Treatment Stop: 02/05/23 17:33 Glucose (Glucose 40% Gel 15 Gm Tube) 15 - 30 gm PO UD PRN; Protocol PRN Reason: Hypoglycemia Protocol Stop: 02/05/23 17:33 Insulin Aspart (Insulin Aspart Per Unit) 0 units SC [facility] Stop: 02/05/23 17:33 Last Admin: 01/08/23 11:57 Dose: Not Given Isosorbide Mononitrate (Isosorbide [place] Extended Rel 30 Mg Tabcr) 30 mg PO [facility] Stop: 02/06/23 08:59 Last Admin: 01/08/23 07:50 Dose: 30 mg Levothyroxine Sodium (Levothyroxine Sodium 100 Mcg Tablet) 100 mcg PO DAILYBB [facility] Stop: 02/06/23 06:29 Last Admin: 01/08/23 05:46 Dose: 100 mcg Metoprolol Succinate (Metoprolol Succ 25mg Ext Rel Tab) [facility] [place] Stop: 02/06/23 08:59 Last Admin: 01/08/23 07:51 Dose: 25 mg Miscellaneous (Carbohydrates For Hypoglycemia ) 15 - 30 gm PO UD PRN PRN Reason: Hypoglycemia Protocol Stop: 02/05/23 17:33 Ondansetron HCl (Ondansetron Inj 2 Mg/Ml 2 Ml Vial) 4 mg IV Q6H PRN PRN Reason: Nausea Stop: 02/05/23 17:33 Polyethylene Glycol (Polyethylene (Miralax) 17 Gm Pack) 17 gm PO DAILY PRN PRN Reason: Constipation Stop: 02/05/23 17:33 (6) HTN (hypertension) 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 type: essential hypertension Qualified Code(s): I10 - Essential (primary) hypertension (7) Type 2 diabetes mellitus Chronic kidney disease stage: stage 3 (moderate) Diabetes mellitus complication detail: with chronic kidney disease Diabetes mellitus complication status: with kidney complications Diabetes mellitus long-term insulin use: without long-term use Qualified Code(s): 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
[2023-01-08] MEDS ORDERED: MELATONIN 3 MG TAB PO PRN (21:34)
[2023-01-08] MEDS: ATORVASTATIN 40 MG TAB PO SCH (22:09)
[2023-01-09] MEDS: LEVOTHYROXINE SODIUM 100 MCG TABLET PO SCH (05:14)
[2023-01-09] MEDS: ALBUTEROL HFA 8 GM INHALER INH SCH ×2 (07:07→10:52)
[2023-01-09 07:14] LABS: Hematocrit (blood only) 31.4 % (37.0-47.0); Mean Corpuscular Hemoglobin 31.7 pg (25.0-34.0); Mean Corpuscular Hgb Conc 31.8 g/dL (32.0-36.0); Mean Corpuscular Volume 99.7 fL (80.0-100.0); Mean Platelet Volume 11.6 fL (9.4-12.4); Platelet Count 242 K/uL (130-400); RDW Coefficient of Variation 18.2 % (11.5-14.5); Red Blood Count 3.15 M/uL (4.20-5.40)
[2023-01-09 07:34] LABS: BUN Creatinine Ratio 19.4 (10-20); Calcium 9.2 mg/dl (8.5-10.1); Est GFR (African American) 23.4 ml/min; Est GFR (Non-African American) 20.2 ml/min; Phosphorus 3.9 mg/dl (2.5-4.9); Potassium 3.9 mmol/L (3.5-5.1)
[2023-01-09] MEDS: INSULIN ASPART PER UNIT CHARGE SC SCH ×2 (08:05→11:46)
[2023-01-09] MEDS: allopurinoL 100 MG TAB PO SCH (08:07)
[2023-01-09] MEDS: FAMOTIDINE 20 MG TAB PO SCH (08:07)
[2023-01-09] MEDS: CLOPIDOGREL BISULFATE 75 MG TAB PO SCH (08:07)
[2023-01-09] MEDS: ISOSORBIDE MONO EXTENDED REL 30 MG TABCR PO SCH (08:08)
[2023-01-09] MEDS: APIXABAN 2.5 MG TAB PO SCH (08:11)
[2023-01-09] MEDS: METOPROLOL SUCC 25MG EXT REL TAB PO SCH (08:11)
[2023-01-09] MEDS: ESCITALOPRAM OXALATE 10 MG TAB PO SCH (09:58)
--- NOTE | 2023-01-09 11:04 | Cardiology Progress Note ---
Date of Service January 09, 2023 Assessment & Plan (1) Hypoxia: (2) Acute on chronic HFrEF (heart failure with reduced ejection fraction): (3) Paroxysmal atrial fibrillation: (4) Tachycardia-bradycardia syndrome: (5) CKD (chronic kidney disease), stage IV: Plan Patient is a complex 77-year-old female with notable history of nonischemic cardiomyopathy with reduced ejection fraction, chronic compensated congestive heart failure. Additional issues include paroxysmal atrial fibrillation on chronic amiodarone therapy. Patient referred for hospitalization with symptoms of exertional dyspnea and hypoxia. Chest x-ray reveals increased interstitial markings consistent with probable pulmonary edema but underlying interstitial lung disease not completely excluded raising concerns regarding chronic amiodarone usage. Exam not suggestive of significant volume overload. Chest Ct performed with findings of ground glass opacities and hyperdense liver. Plan: Stop amiodarone for concerns of amio toxicity Continue metoprolol succinate 25 mg daily. If needed, can titrate dose as outpatient to treat underlying afib. Continue low dose Eliquis. Appears euvolemic. Resume oral furosemide 20 mg daily, with an additional tablet as needed on discharge. Case discussed with Dr. Anne. Admission and Anticipated Discharge Date Admission Date: January 06, 2023 Supervising Physician Co-Signing Physician Notes Patient seen and examined, chart, medications, telemetry reviewed. No arrhythmias since admission. Clinically improved with resolve of hypoxia Chest clear on examination heart rate regular Plan as outlined above Will need follow-up with cardiology 2 to 3 weeks we will likely need upward titration of metoprolol. We will continue to hold amiodarone unless arrhythmias become more pronounced. CHF discharge instructions Subjective Patient sitting in chair, resting quietly. Feeling well. Denies acute complaints today. SOB improved. No longer requiring supplemental O2. No chest pain. Wants to go home today Review of Systems Review of Systems: All systems reviewed & are unremarkable except as noted in HPI & below Physical Exam Constitutional: no acute distress Eyes: PERRL, conjunctivae normal, anicteric sclerae ENMT: external ear and nose normal, oropharynx normal Neck: trachea midline, no thyromegaly Respiratory: Auscultation: + diminished lung sounds and + crackles (faint bibasilar) Cardiovascular: Rate/Rhythm: regular rate and regular rhythm Vessels: no JVD Extremities: no edema Chest (Breasts): Chest: + pacemaker Gastrointestinal (Abdomen): normal bowel sounds, soft, nontender, no hepatosplenomegaly Neurologic: PERRL, EOMI, accommodation nl, no face palsy, no dysarthria Results & Data Vital Signs (Past 12 Hours) Vital Signs Temp Pulse Pulse Pulse Resp BP BP 01/09/23 10:52 36.5 C 71 18 113/74 01/09/23 10:52 77 16 01/09/23 05:59 60 01/09/23 08:12 69 116/75 01/09/23 07:25 36.5 C 63 18 104/59 L 01/09/23 07:08 85 16 01/09/23 03:15 36.6 C 59 L 18 120/73 01/08/23 23:06 36.6 C 65 18 103/63 Pulse Ox O2 Del Method 01/09/23 10:52 96 Room Air 01/09/23 10:52 98 Room Air 01/09/23 05:59 01/09/23 08:12 01/09/23 07:25 96 Room Air 01/09/23 07:08 97 Room Air 01/09/23 03:15 95 Room Air 01/08/23 23:06 96 Room Air Laboratory Results CBC 01/09/23 Range/Units 05:42 WBC 6.50 (4.8-10.8) K/ul RBC 3.15 L (4.20-5.40) M/uL Hgb 10.0 L (12.0-16.0) g/dl Hct 31.4 L (37.0-47.0) % Plt Count 242 (130-400) K/uL Comprehensive Metabolic Panel 01/09/23 Range/Units 05:42 Sodium 141 (136-145) mmol/L Potassium 3.9 (3.5-5.1) mmol/L Chloride 108 H (98-107) mmol/L Carbon Dioxide 23 (21-32) mmol/L BUN 44 H (6-23) mg/dl Creatinine 2.27 H (0.6-1.2) mg/dl Glucose 93 (70-99(Fasting)) mg/dl Calcium 9.2 (8.5-10.1) mg/dl Intake and Output 01/08/23 01/09/23 01/09/23 22:59 06:59 14:59 Intake Total 1879 Balance 450 / 1880 Intake: Oral 450 / 1880 Other: Other Intake Source Ice Chips Weight 66.3 kg Weight Measurement Method Built in [facility] Diagnostic Findings Telemetry reviewed: AV paced in the 60-80[address] Chest CT 01/08/23 12:00 CT chest diagnostic wo con CT DOSE: 279.14 mGy.cm HISTORY: Question interstitial lung disease on amiodarone TECHNIQUE: Multiaxial CT images of the chest were performed without contrast. A dose lowering technique was utilized adhering to the principles of ALARA. COMPARISON: Chest 01/06/2023. FINDINGS: The central airways are patent. No pneumothorax. Trace bilateral pleural effusions. Mild interlobular septal thickening with patchy groundglass airspace opacities most pronounced within the upper lung zones. There is mild respiratory motion artifact. No acute fractures identified. There is left-sided pacemaker noted. Normal esophagus. The heart is enlarged. A few prominent mediastinal lymph nodes which may be reactive. Mild calcified plaque within the normal caliber thoracic aorta. A few bibasilar linear densities favor subsegmental atelectasis. Mild to moderate coronary artery calcifications are noted. A hyperdense liver which can be seen in the setting of amiodarone toxicity. The visualized spleen and adrenal glands unremarkable. Prior cholecystectomy. The visualized bilateral renal cysts are noted. IMPRESSION: 1. Mild interlobular septal thickening with patchy groundglass airspace opacities most pronounced within the upper lung zones. In conjunction with the cardiomegaly and trace bilateral pleural effusions this favors mild pulmonary edema. Scattered areas of air trapping or an atypical pneumonia could also have a similar appearance. 2. Hyperdense liver with can be seen in the setting of amiodarone toxicity. ACT 112: Negative or not required by law. Electronically signed by: Alex Rouse M.D. 01/08/2023 12:51 PM Medications Administered Current Inpatient Medications Acetaminophen (Acetaminophen 325 Mg Tab) 650 mg PO Q4H PRN PRN Reason: Pain or Fever Stop: 02/05/23 17:33 Last Admin: 01/08/23 22:10 Dose: 650 mg Albuterol (Albuterol Hfa 8 Gm Inhaler) 2 puffs INH QID [facility] Stop: 02/05/23 17:33 Last Admin: 01/09/23 10:52 Dose: 2 puffs Allopurinol (Allopurinol 100 Mg Tab) 100 mg PO QAM [facility] Stop: 02/06/23 08:59 Last Admin: 01/09/23 08:07 Dose: 100 mg Amiodarone HCl (Amiodarone 200 Mg Tab) 200 mg PO QAM [facility] Stop: 02/06/23 08:59 Last Admin: 01/07/23 08:12 Dose: 200 mg Apixaban (Apixaban 2.5 Mg Tab) 2.5 mg PO BID [facility] Stop: 02/05/23 20:59 Last Admin: 01/09/23 08:11 Dose: 2.5 mg Atorvastatin Calcium (Atorvastatin 40 Mg Tab) 40 mg PO HS [facility] Stop: 02/05/23 20:59 Last Admin: 01/08/23 22:09 Dose: 40 mg Clopidogrel Bisulfate (Clopidogrel Bisulfate 75 Mg Tab) 75 mg PO QAM [facility] Stop: 02/06/23 08:59 Last Admin: 01/09/23 08:07 Dose: 75 mg Dextrose (Dextrose 50% 50 Ml Syringe) 25 - 50 ml IV UD PRN; Protocol PRN Reason: Hypoglycemia Protocol Stop: 02/05/23 17:33 Escitalopram Oxalate (Escitalopram Oxalate 10 Mg Tab) [facility] Stop: 02/06/23 08:59 Last Admin: 01/09/23 09:58 Dose: 10 mg Famotidine (Famotidine 20 Mg Tab) 20 mg PO [facility] Stop: 02/05/23 20:59 Last Admin: 01/09/23 08:07 Dose: 20 mg Furosemide (Furosemide 40 Mg/4 Ml Vial) 40 mg IV DAILY [facility] Stop: 02/06/23 08:59 Last Admin: 01/07/23 08:14 Dose: 40 mg Glucagon (Glucagon For Inj 1 Mg Vial) 1 mg SQ UD PRN; Protocol PRN Reason: Hypoglycemia Protocol Stop: 02/05/23 17:33 Glucose (Glucose 10 Tab/Tube) 4 - 8 tab PO UD PRN; Protocol PRN Reason: Hypoglycemia Treatment Stop: 02/05/23 17:33 Glucose (Glucose 40% Gel 15 Gm Tube) 15 - 30 gm PO UD PRN; Protocol PRN Reason: Hypoglycemia Protocol Stop: 02/05/23 17:33 Insulin Aspart (Insulin Aspart Per Unit) 0 units SC [facility] Stop: 02/05/23 17:33 Last Admin: 01/09/23 08:05 Dose: Not Given Isosorbide Mononitrate (Isosorbide [place] Extended Rel 30 Mg Tabcr) 30 mg PO QAM [facility] Stop: 02/06/23 08:59 Last Admin: 01/09/23 08:08 Dose: 30 mg Levothyroxine Sodium (Levothyroxine Sodium 100 Mcg Tablet) 100 mcg PO DAILYBB [facility] Stop: 02/06/23 06:29 Last Admin: 01/09/23 05:14 Dose: 100 mcg Melatonin (Melatonin 3 Mg Tab) 3 mg PO HS PRN PRN Reason: Sleep Stop: 02/07/23 21:33 Last Admin: 01/08/23 22:09 Dose: 3 mg Metoprolol Succinate (Metoprolol Succ 25mg Ext Rel Tab) [facility] [place] Stop: 02/06/23 08:59 Last Admin: 01/09/23 08:11 Dose: 25 mg Miscellaneous (Carbohydrates For Hypoglycemia ) 15 - 30 gm PO UD PRN PRN Reason: Hypoglycemia Protocol Stop: 02/05/23 17:33 Ondansetron HCl (Ondansetron Inj 2 Mg/Ml 2 Ml Vial) 4 mg IV Q6H PRN PRN Reason: Nausea Stop: 02/05/23 17:33 Polyethylene Glycol (Polyethylene (Miralax) 17 Gm Pack) 17 gm PO DAILY PRN PRN Reason: Constipation Stop: 02/05/23 17:33
--- NOTE | 2023-01-09 13:06 | Hospitalist Progress Note ---
Date of Service January 09, 2023 Assessment & Plan (1) Acute respiratory failure with hypoxia: (2) Acute on chronic HFrEF (heart failure with reduced ejection fraction): Plan: History nonischemic cardiomyopathy, EF 25-29% on echo on 12/07/22, tachybradycardia syndrome s/p pacemaker, paroxysmal atrial fibrillation, CKD IV, prediabetes, HLD, anxiety, dementia and other medical problems listed below presented to ER with complaint of SOB x 1 day. EMS reported pulse ox of 85% on room air. Denies fever/chills. In ER, afebrile, vital stable, 95% on 2 L oxygen via nasal cannula No leukocytosis, BNP: 2403 CXR: Cardiomegaly with pulmonary edema and trace bilateral pleural effusions. The right lung airspace opacities likely represent alveolar edema. A superimposed pneumonitis would be difficult to exclude. History 12/07/2022 Limited echo: EF: 25-29%, severe diffuse left ventricular hypokinesis In ER given Lasix 40 mg IV. Continued next day w/ IV lasix, then stopped. Cr at 2.3 Monitor I's and O's, daily weight, low-sodium diet Hold home Lasix Cardiology consulted - stopped amiodarone, repeated chest imaging CT chest obtained 1. Mild interlobular septal thickening with patchy groundglass airspace opacities most pronounced within the upper lung zones. In conjunction with the cardiomegaly and trace bilateral pleural effusions this favors mild pulmonary edema. Scattered areas of air trapping or an atypical pneumonia could also have a similar appearance. 2. Hyperdense liver with can be seen in the setting of amiodarone toxicity. Concern for possible amiodarone toxicity, amiodarone stopped on discharge Continue metoprolol succinate 25 mg daily. If needed, can titrate dose as outpatient to treat underlying afib. Continue low dose Eliquis. Appears euvolemic. Resume oral furosemide 20 mg daily, with an additional tablet as needed on discharge. (3) Paroxysmal atrial fibrillation: Plan: Stopped amiodarone - cont. metoprolol succinate, Eliquis (4) Tachycardia-bradycardia syndrome: Plan: S/p pacemaker Pacemaker interrogation (5) CKD (chronic kidney disease), stage IV: Plan: Cr: 1.96 on admission Baseline creatinine 2.0 -2.2 Current Cr ~2.3 Monitor renal functions, avoid nephrotoxic agent when possible (6) HTN (hypertension): Plan: Stable Continue metoprolol succinate (7) Type 2 diabetes mellitus: Plan: History of prediabetes. Diet controlled A1c 6.2 on 05/09/2022 NovoLog correction sliding scale as needed (8) History of right MCA stroke: Plan: Continue Plavix, Eliquis, atorvastatin DVT Prophylaxis Eliquis DNR/DNI as per discussion with pt Follows with Dr Antunez for routine care Admission and Anticipated Discharge Date Admission Date: January 06, 2023 Subjective Patient seen in follow-up of CHF exacerbation, hypoxia Currently laying in bed, in no acute distress, on RA saturating 96% She denies any chest pain palpitations, shortness of breath, abd. pain, n/v No fevers chills She is inquiring about going home. Review of Systems Review of Systems: All systems reviewed & are unremarkable except as noted in Subjective Physical Exam Physical Exam: General: Elderly frail F in no distress Head: normocephalic, atraumatic Eyes: conjunctiva non-injected, anicteric ENT: normal inspection external ears, nose Neck: supple Lungs: no respiratory distress, somewhat diminished sounds, + faint bibasilar crackles CV: RRR, no murmur, trace pretibial edema Abd: normal BS, soft, non-tender Ext: moves extremities, no LE edema Neuro: A&O x 3, no focal deficits noted, normal affect Skin: warm, dry Results & Data Results & Data Vital Signs (Past 12 Hours) Vital Signs Temp Pulse Pulse Pulse Resp BP BP 01/09/23 10:52 36.5 C 71 18 113/74 01/09/23 10:52 77 16 01/09/23 05:59 60 01/09/23 08:12 69 116/75 01/09/23 07:25 36.5 C 63 18 104/59 L 01/09/23 07:08 85 16 01/09/23 03:15 36.6 C 59 L 18 120/73 Pulse Ox O2 Del Method 01/09/23 10:52 96 Room Air 01/09/23 10:52 98 Room Air 01/09/23 05:59 01/09/23 08:12 01/09/23 07:25 96 Room Air 01/09/23 07:08 97 Room Air 01/09/23 03:15 95 Room Air Laboratory Results 01/09/23 01/09/23 01/09/23 Range/Units 11:23 07:31 05:42 WBC (4.8-10.8) K/ul RBC (4.20-5.40) M/uL Hgb (12.0-16.0) g/dl Hct (37.0-47.0) % MCV (80.0-100.0) fL MCH (25.0-34.0) pg MCHC (32.0-36.0) g/dL RDW Std Deviation (36.4-46.3) fL RDW Coeff of Etta (11.5-14.5) % Plt Count (130-400) K/uL MPV (9.4-12.4) fL Sodium 141 (136-145) mmol/L Potassium 3.9 (3.5-5.1) mmol/L Chloride 108 H (98-107) mmol/L Carbon Dioxide 23 (21-32) mmol/L Anion Gap 10 (3-11) BUN 44 H (6-23) mg/dl Creatinine 2.27 H (0.6-1.2) mg/dl Est Cr Clr Drug Dosing 19.0 ml/min Est GFR ( Amer) 23.4 ml/min Est GFR (Non-Af Amer) 20.2 ml/min BUN/Creatinine Ratio 19.4 (10-20) Glucose 93 (70-99(Fasting)) mg/dl POC Glucose 130 H 106 H (70-99) mg/dl Calcium 9.2 (8.5-10.1) mg/dl Phosphorus 3.9 (2.5-4.9) mg/dl Magnesium 2.0 (1.7-2.4) mg/dl 01/09/23 01/08/23 01/08/23 Range/Units 05:42 20:27 16:46 WBC 6.50 (4.8-10.8) K/ul RBC 3.15 L (4.20-5.40) M/uL Hgb 10.0 L (12.0-16.0) g/dl Hct 31.4 L (37.0-47.0) % MCV 99.7 (80.0-100.0) fL MCH 31.7 (25.0-34.0) pg MCHC 31.8 L (32.0-36.0) g/dL RDW Std Deviation 66.0 H (36.4-46.3) fL RDW Coeff of Etta 18.2 H (11.5-14.5) % Plt Count 242 (130-400) K/uL MPV 11.6 (9.4-12.4) fL Sodium (136-145) mmol/L Potassium (3.5-5.1) mmol/L Chloride (98-107) mmol/L Carbon Dioxide (21-32) mmol/L Anion Gap (3-11) BUN (6-23) mg/dl Creatinine (0.6-1.2) mg/dl Est Cr Clr Drug Dosing ml/min Est GFR ( Amer) ml/min Est GFR (Non-Af Amer) ml/min BUN/Creatinine Ratio (10-20) Glucose (70-99(Fasting)) mg/dl POC Glucose 120 H 120 H (70-99) mg/dl Calcium (8.5-10.1) mg/dl Phosphorus (2.5-4.9) mg/dl Magnesium (1.7-2.4) mg/dl Medications Administered Current Inpatient Medications Acetaminophen (Acetaminophen 325 Mg Tab) 650 mg PO Q4H PRN PRN Reason: Pain or Fever Stop: 02/05/23 17:33 Last Admin: 01/08/23 22:10 Dose: 650 mg Albuterol (Albuterol Hfa 8 Gm Inhaler) 2 puffs INH QID [facility] Stop: 02/05/23 17:33 Last Admin: 01/09/23 10:52 Dose: 2 puffs Allopurinol (Allopurinol 100 Mg Tab) 100 mg PO QAM [facility] Stop: 02/06/23 08:59 Last Admin: 01/09/23 08:07 Dose: 100 mg Amiodarone HCl (Amiodarone 200 Mg Tab) [facility] [place] Stop: 02/06/23 08:59 Last Admin: 01/07/23 08:12 Dose: 200 mg Apixaban (Apixaban 2.5 Mg Tab) 2.5 mg PO BID [facility] Stop: 02/05/23 20:59 Last Admin: 01/09/23 08:11 Dose: 2.5 mg Atorvastatin Calcium (Atorvastatin 40 Mg Tab) 40 mg PO HS [facility] Stop: 02/05/23 20:59 Last Admin: 01/08/23 22:09 Dose: 40 mg Clopidogrel Bisulfate (Clopidogrel Bisulfate 75 Mg Tab) 75 mg PO QAM [facility] Stop: 02/06/23 08:59 Last Admin: 01/09/23 08:07 Dose: 75 mg Dextrose (Dextrose 50% 50 Ml Syringe) 25 - 50 ml IV UD PRN; Protocol PRN Reason: Hypoglycemia Protocol Stop: 02/05/23 17:33 Escitalopram Oxalate (Escitalopram Oxalate 10 Mg Tab) 10 mg PO QAM [facility] Stop: 02/06/23 08:59 Last Admin: 01/09/23 09:58 Dose: 10 mg Famotidine (Famotidine 20 Mg Tab) 20 mg [facility] Stop: 02/05/23 20:59 Last Admin: 01/09/23 08:07 Dose: 20 mg Furosemide (Furosemide 40 Mg/4 Ml Vial) 40 mg IV DAILY [facility] Stop: 02/06/23 08:59 Last Admin: 01/07/23 08:14 Dose: 40 mg Glucagon (Glucagon For Inj 1 Mg Vial) 1 mg SQ UD PRN; Protocol PRN Reason: Hypoglycemia Protocol Stop: 02/05/23 17:33 Glucose (Glucose 10 Tab/Tube) 4 - 8 tab PO UD PRN; Protocol PRN Reason: Hypoglycemia Treatment Stop: 02/05/23 17:33 Glucose (Glucose 40% Gel 15 Gm Tube) 15 - 30 gm PO UD PRN; Protocol PRN Reason: Hypoglycemia Protocol Stop: 02/05/23 17:33 Insulin Aspart (Insulin Aspart Per Unit) 0 units SC [facility] Stop: 02/05/23 17:33 Last Admin: 01/09/23 11:46 Dose: Not Given Isosorbide Mononitrate (Isosorbide [place] Extended Rel 30 Mg Tabcr) 30 [facility] [place] Stop: 02/06/23 08:59 Last Admin: 01/09/23 08:08 Dose: 30 mg Levothyroxine Sodium (Levothyroxine Sodium 100 Mcg Tablet) 100 mcg PO DAILYBB [facility] Stop: 02/06/23 06:29 Last Admin: 01/09/23 05:14 Dose: 100 mcg Melatonin (Melatonin 3 Mg Tab) 3 mg PO HS PRN PRN Reason: Sleep Stop: 02/07/23 21:33 Last Admin: 01/08/23 22:09 Dose: 3 mg Metoprolol Succinate (Metoprolol Succ 25mg Ext Rel Tab) 25 mg PO QAM [facility] Stop: 02/06/23 08:59 Last Admin: 01/09/23 08:11 Dose: 25 mg Miscellaneous (Carbohydrates For Hypoglycemia ) 15 - 30 gm PO UD PRN PRN Reason: Hypoglycemia Protocol Stop: 02/05/23 17:33 Ondansetron HCl (Ondansetron Inj 2 Mg/Ml 2 Ml Vial) 4 mg IV Q6H PRN PRN Reason: Nausea Stop: 02/05/23 17:33 Polyethylene Glycol (Polyethylene (Miralax) 17 Gm Pack) 17 gm PO DAILY PRN PRN Reason: Constipation Stop: 02/05/23 17:33 (6) HTN (hypertension) 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 type: essential hypertension Qualified Code(s): I10 - Essential (primary) hypertension (7) Type 2 diabetes mellitus Chronic kidney disease stage: stage 3 (moderate) Diabetes mellitus complication detail: with chronic kidney disease Diabetes mellitus complication status: with kidney complications 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
--- NOTE | 2023-01-09 13:19 | Discharge Summary ---
Date of Service January 09, 2023 Admission HPI Per Admitting Provider History nonischemic cardiomyopathy, EF 25-29% on echo on 12/07/22, tachybradycardia syndrome s/p pacemaker, paroxysmal atrial fibrillation, CKD IV, prediabetes, HLD, anxiety, dementia and other medical problems listed below presented to ER with complaint of SOB x 1 day. Patient states yesterday started noticing exertional shortness of breath with walking throughout her house. [place] increased exertional shortness of breath today and told family member and called EMS and is reported she had pulse ox of 85% on room air. Patient states past couple days has had cough productive of clear sputum. She reports history of intermittent coughing. Denies chest pain. Uses 2 pillows to sleep chronically. Denies fever/chills, diaphoresis, N/V/D, MARTINEZ, dizziness, syncope, vision changes, neck pain, CP, palpitations, hematemesis, sore throat, choking, otalgia, rhinorrhea, abdominal pain, paresthesias, weakness, extremity weakness, increased extremity edema, rashes, urinary symptoms. Admission Exam Per Admitting Provider General: no distress, WDWN Head: normocephalic, atraumatic Eyes: conjunctiva non-injected, anicteric ENT: normal inspection external ears, nose, mucous membranes moist Neck: supple, trachea midline Lungs: no respiratory distress on current 2L via NC, sat 95% on 2L, +diminished breath sounds bilaterally, with increased diminished breath sounds right base, no wheezing/rhonchi/rales noted CV: RRR, no murmur, trace pretibial edema Abd: normal BS, soft, non-tender Ext: no cyanosis, no calf tenderness Neuro: A&O x 3, no focal deficits noted, normal affect Skin: warm, dry Principal Diagnosis Acute on chronic HFrEF Hypoxia Possible amiodarone toxicity Tachycardia-bradycardia syndrome: CKD (chronic kidney disease), stage IV Discharge Exam General: Elderly frail F in no distress Head: normocephalic, atraumatic Eyes: conjunctiva non-injected, anicteric ENT: normal inspection external ears, nose Neck: supple Lungs: no respiratory distress, somewhat diminished sounds, + faint bibasilar crackles CV: RRR, no murmur, trace pretibial edema Abd: normal BS, soft, non-tender Ext: moves extremities, no LE edema Neuro: A&O x 3, no focal deficits noted, normal affect Skin: warm, dry Discharge Data Allergies Allergy/AdvReac Type Severity Reaction Status Date / Time codeine Allergy Intermediate PSCHO Verified 01/06/23 14:57 COMPLICATIONS PER [facility] Consultations 01/06/23 14:38 ED Decision to Admit Stat 01/06/23 15:29 Consult Cardiology Routine Ordered Studies 01/08/23 12:00 CT chest without contrast [CT chest diagnostic wo con] Routine FINDINGS: The central airways are patent. No pneumothorax. Trace bilateral pleural effusions. Mild interlobular septal thickening with patchy groundglass airspace opacities most pronounced within the upper lung zones. There is mild respiratory motion artifact. No acute fractures identified. There is left-sided pacemaker noted. Normal esophagus. The heart is enlarged. A few prominent mediastinal lymph nodes which may be reactive. Mild calcified plaque within the normal caliber thoracic aorta. A few bibasilar linear densities favor subsegmental atelectasis. Mild to moderate coronary artery calcifications are noted. A hyperdense liver which can be seen in the setting of amiodarone toxicity. The visualized spleen and adrenal glands unremarkable. Prior cholecystectomy. The visualized bilateral renal cysts are noted. IMPRESSION: 1. Mild interlobular septal thickening with patchy groundglass airspace opacities most pronounced within the upper lung zones. In conjunction with the cardiomegaly and trace bilateral pleural effusions this favors mild pulmonary edema. Scattered areas of air trapping or an atypical pneumonia could also have a similar appearance. 2. Hyperdense liver with can be seen in the setting of amiodarone toxicity. Hospital Course (1) Acute respiratory failure with hypoxia: (2) Acute on chronic HFrEF (heart failure with reduced ejection fraction): History nonischemic cardiomyopathy, EF 25-29% on echo on 12/07/22, tachybradycardia syndrome s/p pacemaker, paroxysmal atrial fibrillation, CKD IV, prediabetes, HLD, anxiety, dementia and other medical problems listed below presented to ER with complaint of SOB x 1 day. EMS reported pulse ox of 85% on room air. Denies fever/chills. In ER, afebrile, vital stable, 95% on 2 L oxygen via nasal cannula No leukocytosis, BNP: 2403 CXR: Cardiomegaly with pulmonary edema and trace bilateral pleural effusions. The right lung airspace opacities likely represent alveolar edema. A superimpo sed pneumonitis would be difficult to exclude. History 12/07/2022 Limited echo: EF: 25-29%, severe diffuse left ventricular hypokinesis In ER given Lasix 40 mg IV. Continued next day w/ IV lasix, then stopped. Cr at 2.3 Monitor I's and O's, daily weight, low-sodium diet Hold home Lasix Cardiology consulted - stopped amiodarone, repeated chest imaging CT chest obtained 1. Mild interlobular septal thickening with patchy groundglass airspace opacities most pronounced within the upper lung zones. In conjunction with the cardiomegaly and trace bilateral pleural effusions this favors mild pulmonary edema. Scattered areas of air trapping or an atypical pneumonia could also have a similar appearance. 2. Hyperdense liver with can be seen in the setting of amiodarone toxicity. Concern for possible amiodarone toxicity, amiodarone stopped on discharge Continue metoprolol succinate 25 mg daily. If needed, can titrate dose as outpatient to treat underlying afib. Continue low dose Eliquis. Appears euvolemic. Resume oral furosemide 20 mg daily, with an additional tablet as needed on discharge. (3) Paroxysmal atrial fibrillation: Stopped amiodarone - cont. metoprolol succinate, Eliquis (4) Tachycardia-bradycardia syndrome: S/p pacemaker Pacemaker interrogation (5) CKD (chronic kidney disease), stage IV: Cr: 1.96 on admission Baseline creatinine 2.0 -2.2 Current Cr ~2.3 Monitor renal functions, avoid nephrotoxic agent when possible (6) HTN (hypertension): Stable Continue metoprolol succinate (7) Type 2 diabetes mellitus: History of prediabetes. Diet controlled A1c 6.2 on 05/09/2022 NovoLog correction sliding scale as needed (8) History of right MCA stroke: Continue Plavix, Eliquis, atorvastatin Total Time Total Time Spent Total Time Spent (In Minutes): 40 Discharge Plan Discharge Items Patient Disposition: Home - Self-Care Reason For Visit: SOB Discharge Diagnosis: Acute on chronic HFrEF Hypoxia Possible amiodarone toxicity Tachycardia-bradycardia syndrome: CKD (chronic kidney disease), stage IV Activity: Per Instructions section Non-emergency contact: Primary Care Provider and [employer] [place] Call non-emergency contact if: you have any medication questions and your symptoms worsen Follow-up/Referrals: Kasandra Antunez DO [Primary Care Provider] - (Date & Time 01/16/2023 11:20 AM Provider Kasandra Antunez DO Department [facility] ) Maggie Sepulveda PA-C [Physician Machine Operations Supervisor] - (The cardiology office will call you with a follow up appointment. ) Diet: Carb Consistent or DM2, Heart Healthy and Low Sodium (2gm) Fluids: 1800ml (7 cups) Addtl Attending Provider Instructions: Follow-up with your primary care doctor, and building principal. The appointment with your primary care doctor was scheduled for you for 01/16/2023. You will be contacted by cardiology office about your appointment with them. STOP taking amiodarone. Continue to take Lasix 20 mg daily. If you gain 2 - 3 pounds over 1 - 2 days, take another dose of Lasix 20 mg and notify your healthcare providers. Continue taking your metoprolol succinate and Eliquis as prescribed. Addtl Supervisor Compressed Yeast Provider Instructions: Call your Primary Care doctor if any of the following symptoms or problems start or get worse: * Shortness of breath or difficulty breathing * Wake up at night short of breath * Chest pain * Cough * Swelling of your hands, feet, or legs * More fatigued or tired with your normal activity * Palpitations - sudden fast heart beats WEIGHT * Weigh yourself every morning after using the bathroom. * Use the same scale. * Wear the same amount of clothing. * Write your weight down on a chart. * Call your Primary Care doctor if you gain more than 2-3 pounds in 1-2 days. MEDICATIONS * Use this discharge instruction sheet for medication instructions. * Take your medications at the time your doctor ordered. * Do not skip a dose of your medicines. * If you miss a dose of medicine, take it as soon as possible, but DO NOT DOUBLE A DOSE. * Read your medicine information when you get home. * Know all of the side effects of your medicine. If in doubt, ask your pharmacist * Call your Primary Care doctor's office if you have any side effects. * Be sure all of your doctors know what medicine and herbs you take (including cold, flu, and herbal medicine). Take the following with you to your follow-up doctor appointments: * Weight Chart * Medication List * List of questions Do not drink excessive alcohol, beer or wine. Pending Studies at Discharge: No Stand-Alone Forms: My [facility], Smoking Cessation Medications and DC Order Prescriptions: Continued clopidogrel 75 mg Tablet 75 mg PO QAM Qty: 30 0RF escitalopram oxalate 10 mg tablet 10 mg PO QAM Eliquis 2.5 mg Tablet 2.5 mg PO BID Qty: 60 1RF metoprolol succinate 25 mg Tablet Extended Release 24 Hr 25 mg PO QAM Qty: 30 1RF allopurinol 100 mg tablet 100 mg PO QAM acetaminophen [Tylenol] 325 mg Capsule 325 mg PO Q6H PRN (Reason: pain/fever) furosemide 20 mg tablet 20 mg PO QAM Rx Instructions: MAY TAKE ADDITIONAL DOSE IF NEEDED PER [facility] albuterol sulfate 90 mcg/actuation Hfa Aerosol Inhaler 2 puff INHALATION QID ondansetron 4 mg tablet,disintegrating 4 mg PO Q8 PRN (Reason: nausea or vomiting) levothyroxine 100 mcg tablet 100 mcg PO DAILYBB isosorbide mononitrate 30 mg Tablet Extended Release 24 Hr 30 mg PO QAM Qty: 30 1RF nitroglycerin [Nitrostat] 0.4 mg Tablet, Sublingual 0.4 mg sublingual UD PRN (Reason: chest pain) Qty: 10 0RF Rx Instructions: place under tongue 0.4mg every 5 minutes as needed for pain,chest famotidine 20 mg Tablet 20 mg PO AMHS triamcinolone acetonide 0.05 % Ointment 1 applic TOPICAL BID PRN (Reason: Skin Irritation) atorvastatin 40 mg tablet 40 mg PO HS Discontinued amiodarone 200 mg tablet 200 mg PO QAM Discharge Orders: Discharge Order- CHF (Routine); Ordered 01/09/23 Ordered By: Gregor Wood Admission Data Admit Date/Time: 01/06/23 14:47 Attending Provider: Gregor Wood Admit Provider: Zach Snyder Primary Care Provider: Kasandra Antunez Other Providers: Zach Snyder ; Yobany La
== END 2023-01-09 14:16 | disposition home health service (06) | DRG 291 ==
LOC: ED 12:07 → EDINP 14:47 → SUATTDRO 14:47 → 4W 18:39 → 2W 23:13
DX: I44.7 Left bundle-branch block, unspecified; Z86.73 Personal history of transient ischemic attack (TIA), and cerebral infarction without residual deficits; Z79.01 Long term (current) use of anticoagulants; F03.90 Unspecified dementia, unspecified severity, without behavioral disturbance, psychotic disturbance, mood disturbance, and anxiety; J96.01 Acute respiratory failure with hypoxia; Z82.49 Family history of ischemic heart disease and other diseases of the circulatory system; N18.4 Chronic kidney disease, stage 4 (severe); Z79.899 Other long term (current) drug therapy; Z95.0 Presence of cardiac pacemaker; E03.9 Hypothyroidism, unspecified; I42.8 Other cardiomyopathies; E11.22 Type 2 diabetes mellitus with diabetic chronic kidney disease; Z79.890 Hormone replacement therapy; H91.90 Unspecified hearing loss, unspecified ear; Z79.891 Long term (current) use of opiate analgesic; I48.0 Paroxysmal atrial fibrillation; Z66 Do not resuscitate; I50.23 Acute on chronic systolic (congestive) heart failure; I13.0 Hypertensive heart and chronic kidney disease with heart failure and stage 1 through stage 4 chronic kidney disease, or unspecified chronic kidney disease; Z79.02 Long term (current) use of antithrombotics/antiplatelets; Z88.5 Allergy status to narcotic agent; T46.2X1A Poisoning by other antidysrhythmic drugs, accidental (unintentional), initial encounter

== ENCOUNTER 2024-02-29 11:18 | Inpatient (IN) ==
--- NOTE | 2024-02-29 11:47 | Emergency Department Note ---
Impression & Plan Atrial fibrillation with rapid ventricular response ADMIT ED Provider Note HPI: History obtained from patient. The patient is a 78-year-old female with history of paroxysmal atrial fibrillation, chronic kidney disease, CVA, type 2 diabetes ,who presents the emergency department with a chief complaint of shortness of breath with exertion. Patient states that the symptoms have been worsening over the past several days. Patient states that when she walks short distances she becomes more short of breath. On arrival here to the ED the patient is noted to be in atrial fibrillation with RVR. Patient is saturating well on room air on arrival. Patient states she does live alone, she presents with a brake specialist at the bedside who states that she is with the patient her about 8 AM to 4 PM every day. ROS: - Per HPI Differential Diagnosis: Acute CHF exacerbation, atrial fibrillation with RVR, acute coronary syndrome, pneumonia, pulmonary edema, pleural effusion, amongst other potential pathologies. *Outpatient medications and allergy history reviewed. PE: General: Alert, no acute distress HEENT: Normocephalic, trachea midline Eyes: Extraocular eye movement is intact, no scleral erythema Pulmonary: Clear to auscultation bilaterally, no wheezing Cardio: Tachycardic rate with a regular rhythm GI: Abdomen is soft to palpation : No suprapubic tenderness MSK: No evidence of trauma or malformation of the extremities, no edema Skin: No evidence of rash Neuro: Alert, no focal deficits Psychiatric: Cooperative INDEPENDENT INTERPRETATIONS: media monitor: (As interpreted by myself): - An order was placed for continuous cardiac monitoring - Patient was noted to be in atrial fibrillation with rapid ventricular response with rate of 138 EKG: (As interpreted by myself): Rate: 137 Rhythm: Atrial fibrillation with RVR Intervals: QRS 144 ms, QTc 546 ms, MI indeterminate ST changes: No ST elevation Time: 1129 Chest x-ray: (As interpreted by myself): Pattern of pulmonary edema Interventions provided in ED: -IV fluid bolus, IV diltiazem bolus, IV diltiazem gtt, IV metoprolol Medical Decision Making: Patient presented to the emergency department with dyspnea. 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 Lab work shows a mild leukocytosis of 11.43, hemoglobin is stable at 11.9, platelet count is normal, CMP shows chronic kidney disease with baseline creatinine at 2.33, BUN is mildly elevated at 36. Troponin is noted to be mildly elevated at 15.7, EKG per my interpretation shows atrial fibrillation with RVR without any obvious acute ischemic changes. Patient denies any chest pain, low suspicion for ACS. Mild troponin elevation likely secondary to some demand ischemia from tachycardia. Chest x-ray was obtained and shows a pattern of pulmonary edema, patient was initially given IV diltiazem bolus for atrial fibrillation with RVR with minimal improvement in heart rate. Patient was therefore given a dose of IV metoprolol and remained mildly tachycardic and therefore was placed on a diltiazem drip. Patient's blood pressure remained stable throughout. Heart rate is mildly improved on my reassessment of 113. I feel the patient would benefit from inpatient admission for further management and ongoing rate control and possibly diuresis. Will hold on diuresis at this time as blood pressure is stable and the patient is currently on a diltiazem drip. I discussed the patient's presentation with the on-call hospitalist midlevel provider, Rosy Garcia PA-C, the patient was admitted in stable condition to the service of Dr. Cota. Patient and her brake specialist at the bedside are in agreement to this plan the patient was placed for admission in stable condition. Consultants/Discussions held with other healthcare providers: -Hospitalist, Dr. Cota Disposition discussion held by myself with: -Patient and brake specialist at the bedside * CRITICAL CARE TIME: ( 39 ) minutes -Stabilization of tachyarrhythmia/atrial fibrillation with RVR requiring IV rate control medications for improvement, time spent at the bedside, interpretation of EKG and diagnostic studies, discussion with other healthcare providers and arrangement of admission. Diagnosis: 1. Atrial fibrillation with RVR, acute 2. Dyspnea, acute 3. Elevated BNP, acute 4. Pulmonary edema, acute 5. Leukocytosis, acute, nonspecific 6. Chronic kidney disease 7. Elevated high-sensitivity troponin level, acute, mild Disposition: Admission Roberto Yoon DO Emergency Medicine Past Med/Surg History Medical History Pneumonia Acute systolic (congestive) heart failure LBBB (left bundle branch block) History of right MCA stroke History of adenomatous polyp of colon Degenerative disc disease, cervical Dyslipidemia Hearing loss MELQUIADES (generalized anxiety disorder) GERD without esophagitis Vitamin D deficiency Hypertensive cardiomegaly Type 2 diabetes mellitus Atrial fibrillation HTN (hypertension) Surgical History History of D&C History of excision of lesion Back - Dr. 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 Feels Safe at Home: Yes Assistive Devices: Lift Chair, Walker and Wheelchair Allergies Allergies Allergy/AdvReac Type Severity Reaction Status Date / Time codeine Allergy Intermediate PSCHO Verified 03/28/23 12:47 COMPLICATIONS PER [facility] Home Meds Home Medications Medication Instructions Recorded Confirmed allopurinol 100 mg tablet 100 mg PO QAM 06/11/19 03/28/23 escitalopram oxalate 10 mg tablet 10 mg PO QAM 08/12/20 03/28/23 furosemide 20 mg tablet 20 mg PO QAM 09/18/22 03/28/23 atorvastatin 40 mg tablet 40 mg PO HS 01/06/23 03/28/23 famotidine 20 mg tablet 20 mg PO AMHS 01/06/23 03/28/23 triamcinolone acetonide 0.05 % 1 applic topical BID PRN Skin 01/06/23 03/28/23 topical ointment Irritation albuterol sulfate 90 mcg/actuation 2 puff inhalation DIRECTED 03/28/23 03/28/23 aerosol inhaler (Ventolin HFA) levothyroxine 88 mcg tablet 88 mcg PO QAM 03/28/23 03/28/23 ondansetron 4 mg disintegrating 4 mg translingual Q8 03/28/23 03/28/23 tablet Previous Rx's Medication Instructions Recorded clopidogrel 75 mg tablet 75 mg PO QAM #30 tabs 02/24/20 metoprolol succinate 25 mg 25 mg PO QAM #30 tabs 08/17/20 tablet,extended release 24 hr isosorbide mononitrate 30 mg 30 mg PO QAM #30 tabs 05/11/22 tablet,extended release 24 hr nitroglycerin 0.4 mg sublingual 0.4 mg sublingual UD PRN chest 05/11/22 tablet (Nitrostat) pain #10 tabs potassium chloride 20 mEq 20 meq PO DAILY #4 tabs 03/28/23 tablet,extended release Results & Data (ED) Vital Signs Vital Signs - 24 hr 02/29/24 11:19 02/29/24 11:33 02/29/24 11:33 Temperature 36.8 C Temperature Source Temporal Artery Scan Pulse Rate 76 129 H Pulse Rate from SpO2 Sensor 127 H Respiratory Rate 16 22 Respiratory Effort / Characteristics Non-Labored Respiratory Depth Normal Respiratory Pattern Regular Blood Pressure 117/89 Blood Pressure Mean 99 Pulse Oximetry 95 96 Oxygen Delivery Method Room Air Oxygen Flow Rate Sepsis Recent Fever Within 48 Hours No Sepsis New/Unexplained Change in Mental Status N/A Sepsis Action Taken by Nursing No Action Required Oxygen Flow Rate - Titration 02/29/24 11:34 02/29/24 11:34 02/29/24 11:35 Temperature Temperature Source Pulse Rate 127 H Pulse Rate from SpO2 Sensor Respiratory Rate Respiratory Effort / Characteristics Non-Labored Spontaneous Respiratory Depth Normal Respiratory Pattern Regular Blood Pressure Blood Pressure Mean Pulse Oximetry 97 Oxygen Delivery Method Room Air Room Air Oxygen Flow Rate 0 Sepsis Recent Fever Within 48 Hours Sepsis New/Unexplained Change in Mental Status Sepsis Action Taken by Nursing Oxygen Flow Rate - Titration 0 02/29/24 11:45 02/29/24 11:50 02/29/24 11:50 Temperature Temperature Source Pulse Rate 118 H 139 H Pulse Rate from SpO2 Sensor 121 H 122 H Respiratory Rate 26 H 30 H Respiratory Effort / Characteristics Respiratory Depth Respiratory Pattern Blood Pressure 111/81 Blood Pressure Mean 95 Pulse Oximetry 95 94 Oxygen Delivery Method Oxygen Flow Rate Sepsis Recent Fever Within 48 Hours Sepsis New/Unexplained Change in Mental Status Sepsis Action Taken by Nursing Oxygen Flow Rate - Titration 02/29/24 12:00 02/29/24 12:00 02/29/24 12:15 Temperature Temperature Source Pulse Rate 103 H 132 H Pulse Rate from SpO2 Sensor 106 H 119 H Respiratory Rate 24 36 H Respiratory Effort / Characteristics Respiratory Depth Respiratory Pattern Blood Pressure 116/83 Blood Pressure Mean 94 Pulse Oximetry 91 93 Oxygen Delivery Method Room Air Oxygen Flow Rate Sepsis Recent Fever Within 48 Hours Sepsis New/Unexplained Change in Mental Status Sepsis Action Taken by Nursing Oxygen Flow Rate - Titration 02/29/24 12:15 02/29/24 12:15 02/29/24 12:15 Temperature Temperature Source Pulse Rate Pulse Rate from SpO2 Sensor Respiratory Rate Respiratory Effort / Characteristics Respiratory Depth Respiratory Pattern Blood Pressure 120/73 120/73 120/73 Blood Pressure Mean 91 91 91 Pulse Oximetry Oxygen Delivery Method Oxygen Flow Rate Sepsis Recent Fever Within 48 Hours Sepsis New/Unexplained Change in Mental Status Sepsis Action Taken by Nursing Oxygen Flow Rate - Titration 02/29/24 12:30 02/29/24 12:30 02/29/24 12:32 Temperature Temperature Source Pulse Rate 115 H 115 H Pulse Rate from SpO2 Sensor 123 H Respiratory Rate 20 Respiratory Effort / Characteristics Respiratory Depth Respiratory Pattern Blood Pressure 121/88 115/86 Blood Pressure Mean 99 Pulse Oximetry 92 Oxygen Delivery Method Oxygen Flow Rate Sepsis Recent Fever Within 48 Hours Sepsis New/Unexplained Change in Mental Status Sepsis Action Taken by Nursing Oxygen Flow Rate - Titration 02/29/24 12:32 02/29/24 12:32 02/29/24 12:45 Temperature Temperature Source Pulse Rate 108 H 115 H Pulse Rate from SpO2 Sensor 114 H 126 H Respiratory Rate 26 H 23 Respiratory Effort / Characteristics Respiratory Depth Respiratory Pattern Blood Pressure 115/86 Blood Pressure Mean 102 Pulse Oximetry 94 Oxygen Delivery Method Oxygen Flow Rate Sepsis Recent Fever Within 48 Hours Sepsis New/Unexplained Change in Mental Status Sepsis Action Taken by Nursing Oxygen Flow Rate - Titration 02/29/24 12:45 02/29/24 13:00 02/29/24 13:00 Temperature Temperature Source Pulse Rate 103 H Pulse Rate from SpO2 Sensor 109 H Respiratory Rate 20 Respiratory Effort / Characteristics Respiratory Depth Respiratory Pattern Blood Pressure 104/73 105/72 Blood Pressure Mean 84 83 Pulse Oximetry 94 Oxygen Delivery Method Room Air Oxygen Flow Rate Sepsis Recent Fever Within 48 Hours Sepsis New/Unexplained Change in Mental Status Sepsis Action Taken by Nursing Oxygen Flow Rate - Titration 02/29/24 13:05 02/29/24 13:15 02/29/24 13:15 Temperature Temperature Source Pulse Rate 109 H 112 H Pulse Rate from SpO2 Sensor Respiratory Rate 24 Respiratory Effort / Characteristics Respiratory Depth Respiratory Pattern Blood Pressure 105/72 106/69 Blood Pressure Mean 91 Pulse Oximetry Oxygen Delivery Method Oxygen Flow Rate Sepsis Recent Fever Within 48 Hours Sepsis New/Unexplained Change in Mental Status Sepsis Action Taken by Nursing Oxygen Flow Rate - Titration 02/29/24 13:30 02/29/24 13:30 02/29/24 13:45 Temperature Temperature Source Pulse Rate 106 H 116 H Pulse Rate from SpO2 Sensor 122 H 113 H Respiratory Rate 31 H 26 H Respiratory Effort / Characteristics Respiratory Depth Respiratory Pattern Blood Pressure 120/88 Blood Pressure Mean 93 Pulse Oximetry 95 92 Oxygen Delivery Method Room Air Oxygen Flow Rate Sepsis Recent Fever Within 48 Hours Sepsis New/Unexplained Change in Mental Status Sepsis Action Taken by Nursing Oxygen Flow Rate - Titration 02/29/24 13:45 02/29/24 13:52 02/29/24 13:52 Temperature Temperature Source Pulse Rate 116 H Pulse Rate from SpO2 Sensor 116 H Respiratory Rate 23 Respiratory Effort / Characteristics Respiratory Depth Respiratory Pattern Blood Pressure 116/81 115/79 Blood Pressure Mean 95 97 Pulse Oximetry 96 Oxygen Delivery Method Room Air Oxygen Flow Rate Sepsis Recent Fever Within 48 Hours Sepsis New/Unexplained Change in Mental Status Sepsis Action Taken by Nursing Oxygen Flow Rate - Titration 02/29/24 14:00 02/29/24 14:02 02/29/24 14:02 Temperature Temperature Source Pulse Rate 105 H 115 H Pulse Rate from SpO2 Sensor 126 H Respiratory Rate 20 18 Respiratory Effort / Characteristics Respiratory Depth Respiratory Pattern Blood Pressure 112/79 Blood Pressure Mean 94 Pulse Oximetry Oxygen Delivery Method Oxygen Flow Rate Sepsis Recent Fever Within 48 Hours Sepsis New/Unexplained Change in Mental Status Sepsis Action Taken by Nursing Oxygen Flow Rate - Titration 02/29/24 14:15 02/29/24 14:16 02/29/24 14:16 Temperature Temperature Source Pulse Rate 124 H 135 H Pulse Rate from SpO2 Sensor Respiratory Rate 19 16 Respiratory Effort / Characteristics Respiratory Depth Respiratory Pattern Blood Pressure 125/78 Blood Pressure Mean 94 Pulse Oximetry Oxygen Delivery Method Oxygen Flow Rate Sepsis Recent Fever Within 48 Hours Sepsis New/Unexplained Change in Mental Status Sepsis Action Taken by Nursing Oxygen Flow Rate - Titration 02/29/24 14:30 02/29/24 14:31 02/29/24 14:31 Temperature Temperature Source Pulse Rate 100 H 120 H Pulse Rate from SpO2 Sensor Respiratory Rate 15 18 Respiratory Effort / Characteristics Respiratory Depth Respiratory Pattern Blood Pressure 112/64 Blood Pressure Mean 88 Pulse Oximetry 94 Oxygen Delivery Method Room Air Oxygen Flow Rate Sepsis Recent Fever Within 48 Hours Sepsis New/Unexplained Change in Mental Status Sepsis Action Taken by Nursing Oxygen Flow Rate - Titration Laboratory Data 02/29/24 11:30 02/29/24 11:30 Lab Results 02/29/24 Range/Units 11:30 WBC 11.43 H (4.8-10.8) K/ul RBC 3.61 L (4.20-5.40) M/uL Hgb 11.9 L (12.0-16.0) g/dl Hct 36.8 L (37.0-47.0) % MCV 101.9 H (80.0-100.0) fL MCH 33.0 (25.0-34.0) pg MCHC 32.3 (32.0-36.0) g/dL RDW Std Deviation 56.4 H (36.4-46.3) fL RDW Coeff of Etta 15.5 H (11.5-14.5) % Plt Count 341 (130-400) K/uL MPV 10.8 (9.4-12.4) fL Immature Gran % (Auto) 0.3 % Neut % (Auto) 61.6 % Lymph % (Auto) 24.7 % [facility] % (Auto) 12.3 % Eos % (Auto) 0.3 % Baso % (Auto) 0.8 % Neut # (Auto) 7.03 H (1.40-6.50) K/uL Lymph # (Auto) 2.82 (1.20-3.40) K/uL [facility] # (Auto) 1.41 H (0.11-0.59) K/uL Eos # (Auto) 0.04 (0.00-0.50) K/uL Baso # (Auto) 0.09 (0.00-0.20) K/uL Immature Gran # (Auto) 0.04 (0.01-0.20) K/uL Absolute Nucleated RBC 0.02 (0.00-0.12) K/uL Nucleated RBC % (auto) 0.2 % PT 12.5 H (9.0-12.0) Seconds INR 1.2 H (0.9-1.1) Sodium 141 (136-145) mmol/L Potassium 4.2 (3.5-5.1) mmol/L Chloride 102 (98-107) mmol/L Carbon Dioxide 25 (21-32) mmol/L Anion Gap 14 H (3-11) BUN 36 H (6-23) mg/dl Creatinine 2.33 H (0.6-1.2) mg/dl Est Cr Clr Drug Dosing 18.5 ml/min Est GFR ( Amer) 22.5 ml/min Est GFR (Non-Af Amer) 19.4 ml/min BUN/Creatinine Ratio 15.5 (10-20) Glucose 190 H (70-99(Fasting)) mg/dl Calcium 9.4 (8.6-10.3) mg/dl Magnesium 2.0 (1.7-2.4) mg/dl Total Bilirubin 1.2 H (0.2-1.0) mg/dl AST 11 L (13-39) U/L ALT 9 (7-52) U/L Alkaline Phosphatase 134 H (34-104) U/L Troponin I High Sens 15.7 H (0-14) pg/ml B-Natriuretic Peptide 1377 H (0-100) pg/ml Total Protein 7.5 (6.0-8.3) gm/dl Albumin 4.3 (3.4-5.0) gm/dl Globulin 3.2 (2.5-4.0) gm/dl Albumin/Globulin Ratio 1.3 (0.9-2) TSH 0.662 (0.300-4.500) uIu/ml Administered Medications Discontinued Medications Diltiazem HCl (Diltiazem Hcl 5 Mg/Ml 5 Ml Vial) 10 mg IV NOW STA Stop: 02/29/24 11:42 Last Admin: 02/29/24 11:51 Dose: 10 mg Documented By: KEITH Co-signed By: TERESA Sodium Chloride (Nss) 500 mls @ 999 mls/hr IV .Q31M ONE Stop: 02/29/24 12:04 Last Infusion: 02/29/24 12:35 Dose: Infused Documented By: Admin: 02/29/24 11:48 Dose: 999 mls/hr Documented By: KEITH Diltiazem HCl 125 mg/ Dextrose 125 mls @ 5 mls/hr IV .Q24H [facility]; Protocol Stop: 03/30/24 13:44 Last Admin: 02/29/24 13:52 Dose: 5 mg/hr, 5 mls/hr Documented By: KEITH Co-signed By: TERESA Metoprolol Tartrate (Metoprolol Tartrate 1 Mg/Ml Vial) 5 mg IV NOW STA Stop: 02/29/24 12:30 Last Admin: 02/29/24 12:32 Dose: 5 mg Documented By: KEITH Imaging Data Radiologist's Impression: Chest X-Ray 02/29/24 13:00 SINGLE VIEW CHEST CLINICAL HISTORY: Dyspnea. Atrial fibrillation. FINDINGS: 2 AP, portable, upright chest radiographs are compared to study dated 01/12/2024 and correlated with chest CT dated 01/08/2023. A 2-lead cardiac pacemaker is unchanged in position. The heart is enlarged noting atherosclerotic calcification of the thoracic aorta. There is pulmonary vascular congestion. Bilateral airspace opacities likely represent interstitial edema. No large pleural effusion or pneumothorax is seen. The skeletal structures are osteopenic. The bony thorax is grossly intact. Arthritic change is seen in the shoulders. IMPRESSION: 1. Cardiomegaly and cardiac pacemaker and evidence of congestive failure. 2. Bilateral airspace opacities likely represent pulmonary edema. Radiographic follow-up to resolution is recommended. ACT 112: Negative or not required by law. Electronically signed by: Jaspreet Long M.D. 02/29/2024 1:27 PM Discharge Plan Visit Data Chief Complaint: Shortness of Breath/Dyspnea Stated Complaint: SOB, NAUSEA, DIARHEA ED Provider: Roberto Yoon Discharge Problem: Atrial fibrillation with rapid ventricular response Forms Stand Alone Forms: My [facility] [place] [employer] Prescriptions Prescriptions: No Action clopidogrel 75 mg Tablet 75 mg PO QAM Qty: 30 0RF escitalopram oxalate 10 mg tablet 10 mg PO QAM metoprolol succinate 25 mg Tablet Extended Release 24 Hr 25 mg PO QAM Qty: 30 1RF allopurinol 100 mg tablet 100 mg PO QAM furosemide 20 mg tablet 20 mg PO QAM Rx Instructions: MAY TAKE ADDITIONAL DOSE IF NEEDED PER [facility] levothyroxine 88 mcg tablet 88 mcg PO QAM albuterol sulfate [Ventolin HFA] 90 mcg/actuation HFA aerosol inhaler 2 puff INHALATION DIRECTED ondansetron 4 mg tablet,disintegrating 4 mg translingual Q8 potassium chloride 20 mEq tablet extended release 20 meq PO DAILY Qty: 4 0RF isosorbide mononitrate 30 mg Tablet Extended Release 24 Hr 30 mg PO QAM Qty: 30 1RF nitroglycerin [Nitrostat] 0.4 mg Tablet, Sublingual 0.4 mg sublingual UD PRN (Reason: chest pain) Qty: 10 0RF Rx Instructions: place under tongue 0.4mg every 5 minutes as needed for pain,chest famotidine 20 mg Tablet 20 mg PO AMHS triamcinolone acetonide 0.05 % Ointment 1 applic TOPICAL BID PRN (Reason: Skin Irritation) atorvastatin 40 mg tablet 40 mg PO HS Referrals Referrals: Kasandra Antunez, DO [Primary Care Provider] -
[2024-02-29 11:48] LABS: Basophils # (auto) 0.09 K/uL (0.00-0.20); Basophils % (auto) 0.8 %; Eosinophils # (auto) 0.04 K/uL (0.00-0.50); Eosinophils % (auto) 0.3 %; Hematocrit (blood only) 36.8 % (37.0-47.0); Hemoglobin 11.9 g/dl (12.0-16.0); Immature Granulocytes # (auto) 0.04 K/uL (0.01-0.20); Immature Granulocytes % (auto) 0.3 %; Lymphocytes # (auto) 2.82 K/uL (1.20-3.40); Lymphocytes % (auto) 24.7 %; Mean Corpuscular Hgb Conc 32.3 g/dL (32.0-36.0); Mean Corpuscular Volume 101.9 fL (80.0-100.0); Mean Platelet Volume 10.8 fL (9.4-12.4); Monocytes # (auto) 1.41 K/uL (0.11-0.59); Monocytes % (auto) 12.3 %; Neutrophils # (auto) 7.03 K/uL (1.40-6.50); Neutrophils % (auto) 61.6 %; Nucleated RBC # (auto) 0.02 K/uL (0.00-0.12); Nucleated RBC % (auto) 0.2 %; Platelet Count 341 K/uL (130-400); RDW Coefficient of Variation 15.5 % (11.5-14.5); RDW Standard Deviation 56.4 fL (36.4-46.3); Red Blood Count 3.61 M/uL (4.20-5.40); White Blood Count 11.43 K/ul (4.8-10.8)
[2024-02-29] MEDS: SODIUM CHLORIDE 0.9% 500 ML IV ONE (11:48)
[2024-02-29] MEDS: dilTIAZem HCl 5 MG/ML 5 ML VIAL IV STA (11:51)
[2024-02-29 12:03] LABS: INR 1.2 (0.9-1.1); Prothrombin Time 12.5 Seconds (9.0-12.0)
[2024-02-29 12:13] LABS: Albumin Level 4.3 gm/dl (3.4-5.0); Bilirubin,Total 1.2 mg/dl (0.2-1.0); Calcium 9.4 mg/dl (8.6-10.3); Potassium 4.2 mmol/L (3.5-5.1)
[2024-02-29 12:19] LABS: Albumin Globulin Ratio 1.3 (0.9-2); BUN Creatinine Ratio 15.5 (10-20); Creatinine Clr Calc Pharmacy 18.5 ml/min; Est GFR (African American) 22.5 ml/min; Est GFR (Non-African American) 19.4 ml/min; Globulin 3.2 gm/dl (2.5-4.0); Total Protein 7.5 gm/dl (6.0-8.3)
[2024-02-29 12:29] LABS: Thyroid Stimulating Hormone 0.662 uIu/ml (0.300-4.500)
[2024-02-29] MEDS: METOPROLOL TARTRATE 1 MG/ML VIAL IV STA (12:32)
--- NOTE | 2024-02-29 13:28 | XRay Report ---
SINGLE VIEW CHEST CLINICAL HISTORY: Dyspnea. Atrial fibrillation. FINDINGS: 2 AP, portable, upright chest radiographs are compared to study dated 01/12/2024 and correla gilmar with chest CT dated 01/08/2023. A 2-lead cardiac pacemaker is unchanged in position. The heart is enlarged noting atherosclerotic calcification of the thoracic aorta. There is pulmonary vascular charissa estion. Bilateral airspace opacities likely represent interstitial edema. No large pleural effusion o r pneumothorax is seen. The skeletal structures are osteopenic. The bony thorax is grossly intact. Ar thritic change is seen in the shoulders. IMPRESSION: 1. Cardiomegaly and cardiac pacemaker and evidence of congestive failure. 2. Bilateral airspace opacities likely represent pulmonary edema. Radiographic follow-up to resolutio n is recommended. ACT 112: Negative or not required by law. Electronically signed by: Jaspreet Long M.D. 02/29/2024 1:27 PM
[2024-02-29] MEDS ORDERED: STAT IV Infusion **Titration per Protocol STA (13:33)
[2024-02-29] MEDS: dilTIAZem HCL 125 MG in DEXTROSE 5% 100 ML IV SCH (13:52)
--- NOTE | 2024-02-29 13:52 | History & Physical Report ---
Date of Service February 29, 2024 Assessment & Plan (1) Dyspnea: (2) Atrial fibrillation with rapid ventricular response: (3) Acute on chronic HFrEF (heart failure with reduced ejection fraction): (4) CKD (chronic kidney disease), stage IV: (5) Tachycardia-bradycardia syndrome: (6) History of right MCA stroke: (7) Type 2 diabetes mellitus: (8) HTN (hypertension): Plan This is a 78yo F with a PMH of nonischemic cardiomyopathy, EF 20-25% on echo on 05/14, tachybradycardia syndrome s/p pacemaker, paroxysmal atrial fibrillation on Eliquis, CKD IV, prediabetes, HLD, anxiety, history of CVA, dementia and other medical problems listed below presented with worsening SOB over the past few days and was found to have A fib with RVR and decompensated CHF. A fib with RVR EKG with A fib with RVR at 137 bpm Given 10mg Diltiazem bolus in ED, started on diltiazem drip Will plan to wean diltiazem drip, transition to 25mg PO Lopressor Q6H Of note, amiodarone was discontinued in 01/12 due to concerns for amiodarone toxicity Routine cardiology consulted Acute decompensated HFrEF Non-ischemic cardiomyopathy Most recent 2D echo LV severely dilated, EF 20-24%, with EF of 20%, severe diffuse left ventricular hypokinesis, diastolic function is severely abnormal (grade III). Wt 75.7 kg today (most recently documented in [facility] at 83kg) BNP 1377 CXR with cardiomegaly and cardiac pacemaker and evidence of congestive failure. Bilateral airspace opacities likely represent pulmonary edema. Home lasix schedule 20mg PO daily with additional PRN 20mg MoWeFr which she has been taking Plan to continue home lasix dose 20mg PO BID, Toprol, Imdur Appreciate cards input Strict I&Os/daily weights Cat bite Occurred on 02/26, initial pain has improved on abx (10 day Keflex course started yesterday). Will transition to Unasyn while admitted CKD IV Cr 2.33 today (baseline high 1s-2.3, on higher end of baseline) Continue to monitor closely Tachybrady syndrome S/p pacemaker placement Pacer interrogation History of MCA stroke Continue plavix, statin DM II A1c 6.4 in 10/14, repeat in AM Diet controlled SSI while in-patient BSG AC HS HTN Continue metoprolol succinate History of right MCA stroke Continue Plavix, Eliquis, atorvastatin DVT Ppx: Eliquis Code status: DNR PCP: [facility] Dispo: Admitted to PCU Patient seen in collaboration with Dr. Cota. Please see addendum. I spent a total of 75 minutes coordinating, documenting, and providing care for this patient excluding time spent in the performance of separately billed services. History of Present Illness Chief Complaint: SOB Primary Care Provider: Kasandra Antunez, This is a 78yo F with a PMH of nonischemic cardiomyopathy, EF 20-25% on echo on 05/14, tachybradycardia syndrome s/p pacemaker, paroxysmal atrial fibrillation on Eliquis, CKD IV, prediabetes, HLD, anxiety, history of CVA, dementia and other medical problems listed below presented with worsening SOB over the past few days. States that her family members first noticed the dyspnea during conversation. Denies any CP or palpitations. Has been feeling fatigued and not up for her usual activities so resaw feeder brought her in for further evaluation. Amiodarone discontinued in 01/12 due to concerns for amiodarone toxicity. Continues to follow with [facility] cardiology and was seen in December and January and is currently taking metoprolol succinate 25mg and is on low dose Eliquis 2.5mg BID for anticoagulation. Last 2D echo from April 2023 with EF of 20%. No F/C, lightheadedness, CP, N/V, abd pain, dysuria, diarrhea or constipation today. Public Health Administrator did mention she endorsed nausea, abdominal cramping and diarrhea yesterday but has since resolved. Has taken all AM medications. Takes all of her meds per the med pack and sometimes takes an additional diuretic at home MoWeFr and has been doing so the past few weeks at home. Also with history of cat bite on right wrist, seen by PCP on 02/26 and was started on Keflex. Pain and ROM has improved with abx. Denies any current pair or swelling at bite site. In ED, was given 10mg diltiazem bolus and started on diltiazem drip, with HR of 115. Was also given NSS 500mg x 1. Allergies Allergy/AdvReac Type Severity Reaction Status Date / Time codeine Allergy Intermediate PSCHO Verified 03/28/23 12:47 COMPLICATIONS PER [facility] Home Medications Medication Instructions Recorded Confirmed Type allopurinol 100 mg tablet 100 mg PO QAM 06/11/19 02/29/24 History clopidogrel 75 mg tablet 75 mg PO QAM #30 tabs 02/24/20 02/29/24 Rx escitalopram oxalate 10 mg tablet 10 mg PO QAM 08/12/20 02/29/24 History metoprolol succinate 25 mg 25 mg PO QAM #30 tabs 08/17/20 02/29/24 Rx tablet,extended release 24 hr nitroglycerin 0.4 mg sublingual 0.4 mg sublingual UD PRN chest 05/11/22 02/29/24 Rx tablet (Nitrostat) pain #10 tabs furosemide 20 mg tablet 20 mg PO BID 09/18/22 02/29/24 History atorvastatin 40 mg tablet 40 mg PO HS 01/06/23 02/29/24 History famotidine 20 mg tablet 20 mg PO AMHS 01/06/23 02/29/24 History triamcinolone acetonide 0.05 % 0 applic topical BID PRN Skin 01/06/23 02/29/24 History topical ointment Irritation albuterol sulfate 90 mcg/actuation 2 puff inhalation DIRECTED 03/28/23 02/29/24 History aerosol inhaler (Ventolin HFA) levothyroxine 88 mcg tablet 88 mcg PO QAM 03/28/23 02/29/24 History ondansetron 4 mg disintegrating 4 mg translingual Q8 PRN n/v 03/28/23 02/29/24 History tablet amlodipine 2.5 mg tablet 2.5 mg PO DAILY 02/29/24 02/29/24 History apixaban 2.5 mg tablet (Eliquis) 2.5 mg PO BID 02/29/24 02/29/24 History calcitriol 0.5 mcg capsule 0.5 mcg PO QAM 02/29/24 02/29/24 History cephalexin 500 mg capsule 500 mg PO TID 02/29/24 02/29/24 History isosorbide mononitrate 30 mg 0 mg PO QAM 02/29/24 02/29/24 History tablet,extended release 24 hr Past Med/Surg History Medical History Pneumonia Acute systolic (congestive) heart failure LBBB (left bundle branch block) History of right MCA stroke History of adenomatous polyp of colon Degenerative disc disease, cervical Dyslipidemia Hearing loss MELQUIADES (generalized anxiety disorder) GERD without esophagitis Vitamin D deficiency Hypertensive cardiomegaly Type 2 diabetes mellitus Atrial fibrillation HTN (hypertension) Surgical History History of D&C History of excision of lesion Back - Dr. Tucker History of carpal tunnel surgery History of arthroplasty of left knee History of cholecystectomy Family History Other Diabetes Heart disease Social History Smoking Status: Never smoker Second Hand Exposure: No; Do You Dip or Chew Tobacco: No; Hx Alcohol Use: No Hx Substance Use: No Preferred Language: Nigerien Communication Ability: Effective Hearing Ability: Hard of Hearing Program Planner Required: No Beliefs That Will Affect Care: None marital status: / Current Living Situation: Alone Current Living Situation Comment: Son Rajeev comes and goes. Other Information That Helps Us Care for You: No Feels Safe at Home: Yes Safety Concerns: Feels Safe At This Time Assistive Devices: Hearing Aid - Bilateral Review of Systems Review of Systems: At least ten systems reviewed and negative except as noted in the HPI. Physical Exam Physical Exam: Please see Dr. Cota' addendum for physical exam. Results & Data Results & Data Vital Signs (Past 12 Hours) Vital Signs Temp Pulse Resp BP Pulse Ox O2 Del Method O2 Flow Rate 02/29/24 13:30 120/88 02/29/24 13:30 106 H 31 H 95 Room Air 02/29/24 13:15 112 H 24 02/29/24 13:15 106/69 02/29/24 13:05 109 H 105/72 02/29/24 13:00 103 H 20 94 Room Air 02/29/24 13:00 105/72 02/29/24 12:45 104/73 02/29/24 12:45 115 H 23 02/29/24 12:32 108 H 26 H 94 02/29/24 12:32 115/86 02/29/24 12:32 115 H 115/86 02/29/24 12:30 115 H 20 92 02/29/24 12:30 121/88 02/29/24 12:15 120/73 02/29/24 12:15 120/73 02/29/24 12:15 120/73 02/29/24 12:15 132 H 36 H 93 Room Air 02/29/24 12:00 103 H 24 91 02/29/24 12:00 116/83 02/29/24 11:50 139 H 30 H 94 02/29/24 11:50 111/81 02/29/24 11:45 118 H 26 H 95 02/29/24 11:35 127 H 02/29/24 11:34 97 Room Air 0 02/29/24 11:34 Room Air 02/29/24 11:33 129 H 22 96 02/29/24 11:33 117/89 02/29/24 11:19 36.8 C 76 16 95 Room Air Laboratory Results Short CBC 02/29/24 Range/Units 11:30 WBC 11.43 H (4.8-10.8) K/ul Hgb 11.9 L (12.0-16.0) g/dl Hct 36.8 L (37.0-47.0) % Plt Count 341 (130-400) K/uL BMP 02/29/24 11:30 Sodium 141 Potassium 4.2 Chloride 102 Carbon Dioxide 25 BUN 36 H Creatinine 2.33 H Glucose 190 H Calcium 9.4 Liver Function 02/29/24 Range/Units 11:30 Total Bilirubin 1.2 H (0.2-1.0) mg/dl AST 11 L (13-39) U/L ALT 9 (7-52) U/L Alkaline Phosphatase 134 H (34-104) U/L Albumin 4.3 (3.4-5.0) gm/dl Diagnostic Findings Chest X-Ray 02/29/24 13:00 SINGLE VIEW CHEST CLINICAL HISTORY: Dyspnea. Atrial fibrillation. FINDINGS: 2 AP, portable, upright chest radiographs are compared to study dated 01/12/2024 and correlated with chest CT dated 01/08/2023. A 2-lead cardiac pacemaker is unchanged in position. The heart is enlarged noting atherosclerotic calcification of the thoracic aorta. There is pulmonary vascular congestion. Bilateral airspace opacities likely represent interstitial edema. No large pleural effusion or pneumothorax is seen. The skeletal structures are osteopenic. The bony thorax is grossly intact. Arthritic change is seen in the shoulders. IMPRESSION: 1. Cardiomegaly and cardiac pacemaker and evidence of congestive failure. 2. Bilateral airspace opacities likely represent pulmonary edema. Radiographic follow-up to resolution is recommended. ACT 112: Negative or not required by law. Electronically signed by: Jaspreet Long M.D. 02/29/2024 1:27 PM Code Status & VTE Plan VTE Prophylaxis Plan VTE Prophylaxis will be ordered: Yes Supervising Physician Co-Signing Physician Notes I have seen and discussed the case with the collaborating advanced practitioner. I agree with the above H&P. I have reviewed and confirmed the patients medical history, the findings on physical examination, and the patients diagnosis and treatment plan with Jose ARCHIBALD and agree with the information documented. In short, Ms. Gabriel is a 78 year old woman with history of HFrEF, TBS s/p ppm 2019 and other comorbidities who is admitted for management of a fib RVR. Patient reports feeling poorly, more so in last 3-4 days, marked by worsening ROBERTS. Denies chest pain, palpitations or other acute concerns. Reports cat bite on 02/26--started on keflex with improvement on lesion of left wrist. GENERAL APPEARANCE: AxOx3 generally pleasant, no acute distress. HEENT: NC, AT. MMM. EOMI, clear conjunctiva, oropharynx clear. HEART: irregularly irregular, tachycardic LUNGS: CTAB, moving air well. expiratory wheeze cleared with cough ABDOMEN: Soft, nontender, nondistended with good bowel sounds heard. BACK: No CVAT, no obvious deformity. EXTREMITIES: Without cyanosis, clubbing or edema. NEUROLOGICAL: Grossly nonfocal. Alert and oriented, moving all 4 extremities. CN not formally tested but appear grossly intact Skin: Warm and dry without any rash--small area on left wrist from cat bit, slight erythema no tenderness . #Atrial fibrillation with RVR #Tachybrady syndrome s/p [employer] ppm 08/14/2020 - amiodaronediscontinued 01/09/2023 due to concerns for amiodarone toxicity Ground-glass opacities and hyperdense liver per CT of the [facility] at [facility] 12/2022 - Eliquis [id number] (HTN, Female, Age, CVA, DM), reduced dose 2.5mg BID -Metoprolol 25XL daily (home regimen) -Dilt drip started in ED -Start Metoprolol tartrate 25mg PO q6 -Blood culture and UA (recent cat bite, however, reportedly improved with keflex) #NICM EF 40% - worsening on repeat echo 08/2022 EF 25-29% with dyssynchrony of the septum; on the repeat echo making her DDD with left bundle ppm the EF is still low 25-29% but there is no longer any dyssynchrony of the septum - Home diuretics: Lasix 20mg qd, additional 20mg MWF (40mg) - GDMT: *BetaB:metoprolol succinate XL 25mg daily *RAAS: limited 2/2 hypotension *Navjot: limited 2/2 hypotension *Nitrate: Imdur 30mg (hold - Continue oral furosemide 20mg - Strict I/Os, daily weights #HTN hold amlodipine #Cat Bite transition to unasyn for continue course of abx infectious work up as above Rest of plan as above I spent a total of 35 minutes coordinating, documenting, and providing care for this patient excluding time spent in the performance of separately billed services. All of the aforementioned completed outside of collaborating with the assigned advanced practitioner for a full treatment plan. I have reviewed the advanced practitioner's documentation, and I agree with, and take responsibility for the plan of care (7) Type 2 diabetes mellitus Chronic kidney disease stage: stage 3 (moderate) Diabetes mellitus complication detail: with chronic kidney disease Diabetes mellitus complication status: with kidney complications Diabetes mellitus care home insulin use: without care home use Qualified Code(s): 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
--- NOTE | 2024-02-29 15:09 | Cardiology Consultation ---
Date of Consultation February 29, 2024 Assessment & Plan (1) Atrial fibrillation with rapid ventricular response: (2) Dyspnea: (3) Pulmonary edema: (4) Acute on chronic HFrEF (heart failure with reduced ejection fraction): (5) Nonischemic cardiomyopathy: (6) Cardiac pacemaker: Plan Complex 78-year-old female with severe nonischemic cardiomyopathy, admitted with symptomatic atrial fibrillation with a rapid ventricular response with onset on 02/23/2024 as per device interrogation. Amiodarone therapy previously utilized until December 2022 at which time it was discontinued due to concerns for pulmonary toxicity. Patient chronically prescribed reduced dose Eliquis anticoagulation. Volume status appears compensated by history and examination just [facility]. Heart rates remain mildlly elevated. Agree with discontinuation of diltiazem noting systolic dysfunction as well as GI complaints. Recommend utilization of oral metoprolol 25 mg every 6 hours and IV Lopressor as needed for now, ultimately switching to metoprolol succinate as guideline directed medical therapy. Calcium channel rizwan therapy should be avoided due to HFrEF. As long as BP permits will avoid digoxin given GI complaints and stage IV renal dysfunction. Continue anticoagulation with Eliquis and clopidogrel. Hold furosemide today and evaluate need in AM. Recommend holding amlodipine and isosorbide to allow for rate lowering therapy. Further recommendations pending evaluation by Dr. Anne and patient's ongoing hospitalization. I spent a total of 60 minutes on the date of service in preparation, delivery, and documentation of the care provided to this patient excluding any time spent in the performance of separately billed services. This visit was a split-shared visit with the substantive portion of the medical decision making performed by the supervising perinatal specialist/billing provider. Supervising Physician Co-Signing Physician Notes I have reviewed the advanced practitioner's documentation, and I agree with, and take responsibility for the plan of care Patient is a complex 78-year-old female as outlined with paroxysmal atrial fibrillation prior poorly tolerated atrial fibrillation with rapid response, nonischemic cardiomyopathy with reduced ejection fraction prior tachybradycardia syndrome status post dual-chamber pacemaker. Presents now with generalized malaise, tachypalpitations with several days history of documented atrial fibrillation by pacer interrogation. Plan as outlined above Will increase beta-rizwan therapy use metoprolol to succinate with dose 25 mg now then twice daily to start. Patient appropriately anticoagulated Volume status not profoundly overloaded but may benefit from additional diuretic this admission Future management may include AV junction ablation if heart rates not controlled or medications not tolerated Prior antiarrhythmic therapy with amiodarone contraindicated after possible pulmonary reaction I spent a total of 30 minutes coordinating, documenting, and providing care for this patient excluding time spent in the performance of separately billed services. All of the aforementioned completed outside of collaborating with the assigned advanced practitioner for a full treatment plan. History of Present Illness Reason for Consultation: Atrial fibrillation with a rapid ventricular response, HFrEF Requesting Physician: [facility] Service Attending Physician: VALENTIN History of Present Illness Nancy Gabriel is a very pleasant 78-year-old female who is being seen at the request of [facility] service. Reason for consultation include atrial fibrillation with a rapid ventricular response and heart failure with reduced ejection fraction. Patient notes onset of symptoms around Monday, February 26, 2024, weakness in the legs and worsening shortness of breath. She also describes intermittent nausea without vomiting and has had diarrhea over the past 2 days. Approximately 1 week ago she was evaluated by family medicine following a cat bite on the right wrist, treated with Keflex. She denies fevers or chills. In the ER patient was initially given 10 mg IV diltiazem, 5 mg of IV Lopressor, then was started on a diltiazem infusion at 5 mg/h. On admission the diltiazem infusion has been discontinued and Lopressor 25 mg every 6 hours initiated. Patient evaluated shortly after transfer from the ER, in room 229. She notes being ready to go home. She notes feeling "better since they put that stuff in this catheter." Patient lying supine watching television. No chest pain. No palpitations. No shortness of breath. No orthopnea. No peripheral edema. No dizziness or lightheadedness. No syncope. Patient compliant with medications. Denies melena, hematochezia, hematuria, or dysuria. Pacemaker alert sent to Electrophysiology on February 23, 2024 indicating atrial fibrillation with a rapid ventricular response. Patient carries a history of paroxysmal atrial fibrillation previously treated with amiodarone until December 2022, amiodarone discontinued at that time due to concerns regarding possible pulmonary toxicity, hyperdense liver per imaging. Problem List: Symptomatic atrial fibrillation with a rapid ventricular response Prior use of amiodarone discontinued in December 2022 due to concern for pulmonary toxicity. 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 Right atrial lead Medtronic 5076-52 cm, serial number [id number]. Right ventricular lead, Medtronic 3830-69 cm, serial number [id number]. Device reprogrammed to DDD in August 2022. Nonischemic cardiomyopathy with left ventricular ejection fraction 20% (does not have an ICD) 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 Dyslipidemia History of CVA (prescribed clopidogrel Stage IV chronic kidney disease Type 2 diabetes mellitus. Arthroscopic left knee surgery Carpal tunnel surgery Colonoscopy with polypectomy Ventral hernia repair Cholecystectomy Family History: Noncontributory. Mother with uterine cancer in her 40s. Social History: Never smoker. No alcohol. No illegal drug use. Has caregivers until 5 PM. Allergies Allergy/AdvReac Type Severity Reaction Status Date / Time codeine Allergy Intermediate PSCHO Verified 03/28/23 12:47 COMPLICATIONS PER [facility] Home Medications Medication Instructions Recorded Confirmed Type allopurinol 100 mg tablet 100 mg PO QAM 06/11/19 02/29/24 History clopidogrel 75 mg tablet 75 mg PO QAM #30 tabs 02/24/20 02/29/24 Rx escitalopram oxalate 10 mg tablet 10 mg PO QAM 08/12/20 02/29/24 History metoprolol succinate 25 mg 25 mg PO QAM #30 tabs 08/17/20 02/29/24 Rx tablet,extended release 24 hr nitroglycerin 0.4 mg sublingual 0.4 mg sublingual UD PRN chest 05/11/22 02/29/24 Rx tablet (Nitrostat) pain #10 tabs furosemide 20 mg tablet 20 mg PO BID 09/18/22 02/29/24 History atorvastatin 40 mg tablet 40 mg PO HS 01/06/23 02/29/24 History famotidine 20 mg tablet 20 mg PO AMHS 01/06/23 02/29/24 History triamcinolone acetonide 0.05 % 0 applic topical BID PRN Skin 01/06/23 02/29/24 History topical ointment Irritation albuterol sulfate 90 mcg/actuation 2 puff inhalation DIRECTED 03/28/23 02/29/24 History aerosol inhaler (Ventolin HFA) levothyroxine 88 mcg tablet 88 mcg PO QAM 03/28/23 02/29/24 History ondansetron 4 mg disintegrating 4 mg translingual Q8 PRN n/v 03/28/23 02/29/24 History tablet amlodipine 2.5 mg tablet 2.5 mg PO DAILY 02/29/24 02/29/24 History apixaban 2.5 mg tablet (Eliquis) 2.5 mg PO BID 02/29/24 02/29/24 History calcitriol 0.5 mcg capsule 0.5 mcg PO QAM 02/29/24 02/29/24 History cephalexin 500 mg capsule 500 mg PO TID 02/29/24 02/29/24 History isosorbide mononitrate 30 mg 0 mg PO QAM 02/29/24 02/29/24 History tablet,extended release 24 hr Patient History Medical History Pneumonia Acute systolic (congestive) heart failure LBBB (left bundle branch block) History of right MCA stroke History of adenomatous polyp of colon Degenerative disc disease, cervical Dyslipidemia Hearing loss MELQUIADES (generalized anxiety disorder) GERD without esophagitis Vitamin D deficiency Hypertensive cardiomegaly Type 2 diabetes mellitus Atrial fibrillation HTN (hypertension) Surgical History History of D&C History of excision of lesion Back - Dr. 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 Other Information That Helps Us Care for You: No Feels Safe at Home: Yes Safety Concerns: Feels Safe At This Time Assistive Devices: Hearing Aid - Bilateral Review of Systems Review of Systems: See above. Complete review of systems is otherwise negative or noncontributory. Patient with underlying dementia. Physical Exam Physical Exam: General: Alert to person and place. NAD. Laying supine. HENT: Normocephalic. Atraumatic. Eyes: PER. Conjunctiva pink, sclera clear. Neck: No JVD. Heart: Irregularly irregular at 110 bpm. Soft systolic murmur. Lungs: Diminished. Bibasilar crackles. No wheeze. Abdomen: +BS. Soft. Nontender. No masses or organomegaly. Extremities: No clubbing, cyanosis, or edema. Limited neurological examination is without focal deficits. Pulses: Posterior tibial=1/4. Results & Data Vital Signs (Past 12 Hours) Vital Signs Temp Pulse Resp BP Pulse Ox O2 Del Method O2 Flow Rate 02/29/24 14:52 Room Air 02/29/24 14:31 112/64 94 Room Air 02/29/24 14:31 120 H 18 02/29/24 14:30 100 H 15 02/29/24 14:16 125/78 02/29/24 14:16 135 H 16 02/29/24 14:15 124 H 19 02/29/24 14:02 115 H 18 02/29/24 14:02 112/79 02/29/24 14:00 105 H 20 02/29/24 13:52 115/79 02/29/24 13:52 116 H 23 96 Room Air 02/29/24 13:45 116/81 02/29/24 13:45 116 H 26 H 92 02/29/24 13:30 120/88 02/29/24 13:30 106 H 31 H 95 Room Air 02/29/24 13:15 112 H 24 02/29/24 13:15 106/69 02/29/24 13:05 109 H 105/72 02/29/24 13:00 103 H 20 94 Room Air 02/29/24 13:00 105/72 02/29/24 12:45 104/73 02/29/24 12:45 115 H 23 02/29/24 12:32 108 H 26 H 94 02/29/24 12:32 115/86 02/29/24 12:32 115 H 115/86 02/29/24 12:30 115 H 20 92 02/29/24 12:30 121/88 02/29/24 12:15 120/73 02/29/24 12:15 120/73 02/29/24 12:15 120/73 02/29/24 12:15 132 H 36 H 93 Room Air 02/29/24 12:00 103 H 24 91 02/29/24 12:00 116/83 02/29/24 11:50 139 H 30 H 94 02/29/24 11:50 111/81 02/29/24 11:45 118 H 26 H 95 02/29/24 11:35 127 H 02/29/24 11:34 97 Room Air 0 02/29/24 11:34 Room Air 02/29/24 11:33 129 H 22 96 02/29/24 11:33 117/89 02/29/24 11:19 36.8 C 76 16 95 Room Air Laboratory Results Cardiac Enzymes 02/29/24 Range/Units 11:30 AST 11 L (13-39) U/L Troponin I High Sens 15.7 H (0-14) pg/ml B-Natriuretic Peptide 1377 H (0-100) pg/ml Coagulation 02/29/24 Range/Units 11:30 PT 12.5 H (9.0-12.0) Seconds B-Natriuretic Peptide 1377 H (0-100) pg/ml CBC 02/29/24 Range/Units 11:30 WBC 11.43 H (4.8-10.8) K/ul RBC 3.61 L (4.20-5.40) M/uL Hgb 11.9 L (12.0-16.0) g/dl Hct 36.8 L (37.0-47.0) % Plt Count 341 (130-400) K/uL Neut # (Auto) 7.03 H (1.40-6.50) K/uL Lymph # (Auto) 2.82 (1.20-3.40) K/uL Cannon # (Auto) 1.41 H (0.11-0.59) K/uL Eos # (Auto) 0.04 (0.00-0.50) K/uL Baso # (Auto) 0.09 (0.00-0.20) K/uL Comprehensive Metabolic Panel 02/29/24 Range/Units 11:30 Sodium 141 (136-145) mmol/L Potassium 4.2 (3.5-5.1) mmol/L Chloride 102 (98-107) mmol/L Carbon Dioxide 25 (21-32) mmol/L BUN 36 H (6-23) mg/dl Creatinine 2.33 H (0.6-1.2) mg/dl Glucose 190 H (70-99(Fasting)) mg/dl Calcium 9.4 (8.6-10.3) mg/dl AST 11 L (13-39) U/L ALT 9 (7-52) U/L Alkaline Phosphatase 134 H (34-104) U/L Total Protein 7.5 (6.0-8.3) gm/dl Albumin 4.3 (3.4-5.0) gm/dl Intake and Output 02/29/24 02/29/24 02/29/24 06:59 14:59 22:59 Intake Total 504.25 / 504.25 Balance 504.25 / 504.25 Intake: IV 504.25 / 504.25 Sodium Chloride 0.9% 500 ml @ 500 / 500 999 mls/hr IV .Q31M ONE Rx#: [id number] dilTIAZem HCL 125 mg In 4.25 / 4.25 Dextrose 5% 100 ml @ 5 MG/HR 5 mls/hr IV .Q24H [facility] Rx#: [id number] Other: Weight 75.7 kg Weight Measurement Method Chair Scale Patient Weight 03/01/24 06:59 Weight 75.7 kg
[2024-02-29] MEDS ORDERED: ACETAMINOPHEN 325 MG TAB PO PRN (15:14)
[2024-02-29] MEDS ORDERED: POLYETHYLENE (MIRALAX) 17 GM PACK PO PRN (15:14)
[2024-02-29] MEDS ORDERED: AMPICILLIN SOD/SULBACTAM SOD 3 GM VIAL IV SCH (15:30)
[2024-02-29] MEDS ORDERED: ALBUTEROL HFA 8 GM INHALER INH PRN (15:45)
[2024-02-29] MEDS ORDERED: METOPROLOL TARTRATE 1 MG/ML VIAL IV PRN (15:45)
[2024-02-29] MEDS ORDERED: CARBOHYDRATES FOR HYPOGLYCEMIA PO PRN (15:47)
[2024-02-29] MEDS ORDERED: GLUCAGON FOR INJ 1 MG VIAL SQ PRN (15:47)
[2024-02-29] MEDS ORDERED: GLUCOSE 40% GEL 15 GM TUBE PO PRN (15:47)
[2024-02-29] MEDS ORDERED: GLUCOSE 10 TAB/TUBE PO PRN (15:47)
[2024-02-29] MEDS ORDERED: DEXTROSE 50% 50 ML SYRINGE IV PRN (15:47)
[2024-02-29] MEDS: AMPICILLIN/SULBACTAM SOD 3,000 MG in SODIUM CHLOR 0.9% MINI-B 100 ML IV SCH (16:10)
[2024-02-29] MEDS: METOPROLOL TARTRATE 25 MG TAB PO SCH (16:13)
[2024-02-29] MEDS: ONDANSETRON INJ 2 MG/ML 2 ML VIAL IV PRN (17:24)
[2024-02-29] MEDS: METOPROLOL SUCC 25MG EXT REL TAB PO ONE (17:25)
[2024-02-29] MEDS: INSULIN ASPART PER UNIT CHARGE SC SCH (17:32)
[2024-02-29] MEDS: METOPROLOL SUCC 25MG EXT REL TAB PO SCH (20:46)
[2024-02-29] MEDS: ATORVASTATIN 40 MG TAB PO SCH (20:46)
[2024-02-29] MEDS: FAMOTIDINE 20 MG TAB PO SCH (20:46)
[2024-02-29] MEDS: APIXABAN 2.5 MG TAB PO SCH (20:46)
--- OUTSIDE RECORDS SUMMARY | 2024-02-29 21:35 | External Medical Summary | Summary of Care ---
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 Name Role Phone Vilma Antunez DO Primary Care Provider Reason for Visit * Reason Comments eRx-Medication Refill Encounter Details Date Type Department Care Team (Late st Contact Info) Description 02/12/2024 Refill Family Practice [facility] [address] [facility] [place] [address] [facility] [address] Allergies Active Allergy Reactions Criticality Noted Date Comments Codeine Psych complications 12/05/2011 documented as of this encounter (statuses as of 02/13/2024) Medications Medication Sig Dispensed Refills Start Date End Date Status Spacer/Aero-Holding Chambers SISI Use with inhaler. 1 Device 0 6 Active Misc. Devices Accu-check guide glucometer kit and lancets E11.9 Use daily as directed 1 Each 0 0 Active Depend Adjustable Underwear Lg Use twice daily 64 Each 11 0 Active Acetaminophen 325 MG Oral Tablet Take 1 Tablet by mouth every 6 hours as needed. 0 Active amLODIPine Besylate 2.5 MG Oral Tablet (Norvasc)Indication s:HTN, goal below 140/90 Take by mouth 1 Tablet before bedtime. 90 Tablet 3 2 Active Rollator Ultra-Light Use as directed/needed 1 Each 0 2 Active Triamcinolone Acetonide 0.5 % External Cream (Aristocort) Apply topically to affected area 2 times a day. To affected area. 60 g 5 2 Active Accu-Chek Guide w/Device Kit Use as directed. Check sugars once daily E11.9 1 Kit 0 3 Active Accu-Chek Guide In Vitro Strip (Glucose Blood) Check sugars once daily E11.9 100 Strip 3 3 Active Accu-Chek Softclix Lancets Check sugars once daily E11.9 100 Each 3 3 Active Ondansetron 4 MG Oral Tablet Disintegrating (Zofran) Place 1 Tablet under the tongue every 8 hours as needed for Nausea or Vomiting. 20 Tablet 11 3 Active Nitroglycerin 0.4 MG Sublingual Tablet Sublingual (Nitrostat)Indicati ons:NICM (nonischemic cardiomyopathy) (HCC) Place 1 Tablet under the tongue every 5 minutes as needed for Pain, Chest. 25 Tablet 5 3 Active Furosemide 20 MG Oral Tablet (Lasix) Take 1 Tablet by mouth in the morning and 1 Tablet before bedtime. Plus additional one three days per week. 68 Tablet 11 3 Active Calcitriol 0.5 MCG Oral Capsule (Rocaltrol)Indicati ons:Vitamin D deficiency Take 1 Capsule by mouth in the morning. 3 Capsule 11 3 Active Ventolin HFA 108 (90 Base) MCG/ACT Inhalation Aerosol SolutionIndications :Cough INHALE 2 PUFFS IN THE MORNING, 2 PUFFS AT NOON, 2 PUFFS IN THE EVENING AND 2 PUFFS AT BEDTIME 54 g 3 4 Active Allopurinol 100 MG Oral Tablet (Zyloprim)Indicatio ns:Gout of big toe TAKE 1 TABLET BY MOUTH ONCE DAILY IN THE MORNING 30 Tablet 5 4 Active Levothyroxine Sodium 88 MCG Oral Tablet (Levoxyl) TAKE 1 TABLET BY MOUTH ONCE DAILY IN THE MORNING AT LEAST 30 MINUTES PRIOR TO BREAKFAST OR OTHER MEDS 90 Tablet 1 4 Active Escitalopram Oxalate 10 MG Oral Tablet (Lexapro)Indication s:MELQUIADES (generalized anxiety disorder) TAKE 1 TABLET BY MOUTH ONCE DAILY IN THE MORNING 90 Tablet 1 4 Active Clopidogrel Bisulfate 75 MG Oral Tablet (pLAVix)Indications :Chronic ischemic right MCA stroke,Cardiac pacemaker in situ TAKE 1 TABLET BY MOUTH ONCE DAILY IN THE MORNING 90 Tablet 1 4 Active Metoprolol Succinate ER 25 MG Oral Tablet Extended Release 24 Hour (toPROL XL)Indications:Supr aventricular tachycardia (HCC) TAKE 1 TABLET BY MOUTH ONCE DAILY IN THE MORNING 90 Tablet 1 4 Active Eliquis 2.5 MG Oral Tablet (Apixaban) TAKE 1 TABLET BY MOUTH IN THE MORNING AND AT BEDTIME 180 Tablet 1 4 Active Atorvastatin Calcium 40 MG Oral Tablet (Lipitor) TAKE 1 TABLET BY MOUTH AT BEDTIME 90 Tablet 1 4 Active Famotidine 20 MG Oral Tablet (Pepcid) TAKE 1 TABLET BY MOUTH IN THE MORNING AND AT BEDTIME 180 Tablet 1 4 Active Isosorbide Mononitrate ER 30 MG Oral Tablet Extended Release 24 Hour (Imdur) TAKE 1 TABLET BY MOUTH ONCE DAILY IN THE MORNING 90 Tablet 1 4 Active Famotidine 20 MG Oral Tablet (Pepcid) TAKE 1 TABLET BY MOUTH IN THE MORNING AND AT BEDTIME 180 Tablet 1 3 02/13/20 24 Discontinued Atorvastatin Calcium 40 MG Oral Tablet (Lipitor) TAKE 1 TABLET BY MOUTH AT BEDTIME 90 Tablet 1 3 02/13/20 24 Discontinued Isosorbide Mononitrate ER 30 MG Oral Tablet Extended Release 24 Hour (Imdur) TAKE 1 TABLET BY MOUTH ONCE DAILY IN THE MORNING 90 Tablet 1 3 02/13/20 24 Discontinued documented as of this encounter (statuses as of 02/13/2024) Active Problems Problem Noted Date Diagnosed Date Chronic heart failure with r educed ejection fraction and diastolic dysfunction 01/01/2024 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 10/12/2022 Idiopathic gout of multiple sites 06/07/2022 Aspiration pneumonia of right lower lobe due to vomit 11/26/2021 Prediabetes 10/08/2021 NICM (nonischemic cardiomyopathy) 09/14/2021 Cardiac pacemaker in situ 2021 Dementia due to medical cond ition, without behavioral disturbance 07/20/2021 Endometrial thickening on ultrasound 07/20/2021 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 History of colon polyps 07/20/2021 Tachy-leeanne syndrome 03/24/2021 Sensorineural hearing loss (SNHL) of both ears 0 07/21/2020 Paroxysmal atrial fibrillation 07/14/2020 Chronic ischemic right MCA stroke 06/24/2020 CKD (chronic kidney disease) stage 4, GFR 15-29 ml/min 02/28/2020 Paroxysmal atrial tachycardia 02/13/2020 MELQUIADES (generalized anxiety disorder) 06/20/2019 Gout of big toe 02/26/2018 Edentulous 04/20/2016 HTN, goal below 140/90 04/04/2016 Overview: Per HTN Protocol Hypertensive cardiomyopathy 01/13/2014 Vitamin D deficiency 03/01/2013 Hyperlipidemia with target LDL less than 100 Overview: ICD-10 update of inactive term DDD (degenerative disc disease), cervical Overview: Dr. 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 04/06/2021 10/08/2021 Overview: Per CKD protocol Cardiomyopathy due to hypert ension, without heart failure 03/24/2021 10/19/2023 Type 2 diabetes mellitus wit h stage 3 chronic kidney disease and hypertension 03/24/2021 04/08/20 21 Overview: Per CKD protocol Kidney disease, chronic, sta ge IV (GFR 15-29 ml/min) 03/02/2021 12/08/2021 Overview: Per CKD protocol Diabetes mellitus with stage 4 chronic kidney disease 08/31/2020 10/08/2021 Overview: Per CKD protocol Type 2 diabetes mellitus wit h stage 3 chronic kidney disease and hypertension 06/10/2019 08/21/20 20 Hearing loss 04/20/2016 07/21/2020 Paroxysmal SVT (supraventricular tachycardia) 10/14/20 13 06/10/2019 HTN, goal below 140/80 03/01/201304/07 Overview: Per HTN Protocol HTN, goal below 130/80 11/15/201203/01 Kidney disease, chronic, sta ge III (GFR 30-59 ml/min) 11/15/2012 07/05/2019 HTN, goal below 140/80 06/11/201211/15 Overview: Per HTN Protocol #27. Type 2 diabetes mellitus wit h hemoglobin A1c goal of less than 7.0% 10/31/2011 10/08/2021 Overview: ICD-10 update of inactive term HTN, goal below 130/80 06/14 Overview: Per HTN Protocol #27. Anxiety 06/20/2019 documented as of this encounter (statuses as of 02/13/2024) Immunizations Name Administration Dates Next Due COVID-19 mRNA, LNP-s, No Pre serve, 2-Dose Series (Moderna) 11/19/2021,05/19/2021,04/21/2021 Pneumococcal Conjugate Vacc, 13 Valent (Prevnar) 08/03/2015 Pneumococcal Polysaccharide PPV23 (Pneumovax) 09/09/2013,10/19/2010,08/20/2007 Season Influenza, Quad, PF, Adjuvanted, 65+ Yrs, IM (FLUAD) 07/06/2020 Seasonal Influenza, Quadriva lent Hd (Fluzone Hd) 07/30/2022,07/09/2021 Seasonal Influenza, Quadriva lent, No Preserve, IM 09/19/2016,08/03/2015 Seasonal Influenza, Split, I IV3, With Preserve, Inj 08/05/2014,08/22/2013,07/18/2012(Defer red: Patient Refused) Seasonal Influenza, Trivalen t, Adjuvanted, 65+ yrs 09/04/2019 TD - Tetanus/Diptheria (ADULT) 10/14/2011 TDAP (age 10 and older)(Boostrix) 05/28/2023 TDAP (age 11 and older)(Adacel) 03/14/2008 Varicella Zoster Vaccine (Adult) 12/07/2015 Zoster Vaccine Recombinant (Shingrix) 04/25/2021 (Deferred: Patient Refused) documented as of this encounter Social History Tobacco Use Types Packs/Day Years Used Date Smoking Tobacco: Never Smokeless Tobacco: Never Alcohol Use Standard Drinks/Week Comments No 0 (1 standard drink = 0.6 oz pur e alcohol) PHQ-2 Answer Date Recorded PHQ-2 Score 0 02/10/2020 Sex and Gender Information Value Date Recorded Sex Assigned at Not on file Gender Identity Not on file Sexual Orientation Not on file Job Start Date Occupation Industry Not on file Not on file Not on file documented as of this encounter Miscellaneous Notes * Telephone Encounter - Wayne Rodriguez RPh - 02/13/2024 1:26 PM EDT Signed Prescriptions: Disp Refills Atorvastatin Calcium 40 MG Oral Tablet (Li*90 Tab*1 Sig: TAKE 1 TABLET BY MOUTH AT BEDTIMEAuthorizing Provider: VILMA ANTUNEZ User: WAYNE RODRIGUEZ Famotidine 20 MG Oral Tablet (Pepcid) 180 Ta*1 Sig: TAKE 1 TABLET BY MOUTH IN THE MORNING AND AT BEDTIMEAuthorizing Provider: VILMA ANTUNEZ User: WAYNE RODRIGUEZ Isosorbide Mononitrate ER 30 MG Oral Table*90 Tab*1 Sig: TAKE 1 TABLET BY MOUTH ONCE DAILY IN THE MORNINGAuthorizing Provider: VILMA ANTUNEZ User: WAYNE RODRIGUEZ documented in this encounter Plan of Treatment Upcoming Encounters Date Type Department Care Team (Late st Contact Info) Description 02/20/2024 10:00 AM EDT Office Visit Cardiology, [address] [place] [address] Ruby Blandon CRNP [address] [place] [address] 03/07/2024 2:00 PM EDT Office Visit Audiology [facility] [address] [place] [address] Eloisa Galvan Au.D. [address] [place] [address] 03/28/2024 2:40 PM EDT Office Visit [facility] 200 [facility] [place] [address] Yehuda Eckert MD [address] [place] [address] Scheduled Procedures Name Priority Associated Diagnoses Date/Ti me COLONOSCOPY FLEXIBLE PROXIMAL DIAGNOSTIC Recall History of colon polyps Health Maintenance Due Date Last Done Comments Zoster Vaccines (2 of 3) 02/01/2016 12/07/2015 Diabetic Eye Exam 11/23/2016 11/23/2015, , 05/30/2013, Additional history exists Depression Screening 02/09/2021 02/10/2020 Diabetic Foot Exam 03/23/2021 03/23/2020, 0 06/10/2019, 02/06/2018, Additional history exists COLONOSCOPY-EVERY 5 YRS AGES 18-100 05/19/2021 05/19/2016, 05/19/2016 COVID-19 Vaccine ( season) 2023 11/19/2021, 05/19/2021, 04/21/2021 Phosphate 09/06/2023 09/06/2022, 05/2022, 01/27/2022, Additional history exists Nephrology Referral 03/10/2024 03/10/2023, 2 HbA1c 03/23/2024 09/22/2023, 03/2 04/2023, 10/08/2021, Additional history exists GFR 04/19/2024 10/19/2023, 01/2023, 09/22/2023, Additional history exists Influenza Vaccine (FLU shot) (Season Ended) 2024 07/30/2022, 07/09/2021, 07/06/2020, Additional history exists PTH 09/22/2024 09/22/2023, 05/2022, 01/27/2022, Additional history exists Albumin/Creatinine Ratio 09/25/2024 023, 03/24/2021, 01/22/2016, Additional history exists Hgb 10/19/2024 10/19/2023, 10/2022, 09/04/2023, Additional history exists TSH 10/19/2024 10/19/2023, 04/22, 09/06/2022, Additional history exists DTaP,Tdap,and Td Vaccines (4 - Td or Tdap) 05/28/2033 05/28/2023, 10/14/2011, 10/14/2011, Additional history exists Pneumococcal Vaccine: 65+ Years Completed 08/03/2015, 09/09/2013, 10/19/2010, Additional history exists GARDASIL-HPV IMMUNIZATION SERIES Aged Out No longer eligible based on patient's age to complete this topic Hepatitis B Aged Out No longer eligi ble based on patient's age to complete this topic MENINGOCOCCAL (MENACTRA/MENVEO) Aged Out No longer eligible based on patient's age to complete this topic documented as of this encounter Medical Devices Not on filedocumented as of this encounter Advance Directives Documents on File Type Date Recorded 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
--- OUTSIDE RECORDS SUMMARY | 2024-02-29 21:35 | External Medical Summary | Summary of Care ---
Author Name Unknown Organization [facility] Address [address] [place] [address] Phone [phone] Care Team Providers Care Import Dispatcher Name Role Phone Kasandra Antunez DO Primary Care Provider Reason for Visit * Reason Onset Date Comments Health Maintenance 01/18/2024 Encounter Details Date Type Department Care Team (Late st Contact Info) Description 01/18/2024 Telephone Family Practice [facility] [place] [address] Kasandra [facility]unez [facility] [address] Health Maintenance Allergies Active Allergy Reactions Criticality Noted Date Comments Codeine Psych complications 12/05/2011 documented as of this encounter (statuses as of 01/18/2024) Medications Medication Sig Dispensed Refills Start Date End Date Status Spacer/Aero-Holding Chambers SISI Use with inhaler. 1 Device 0 01/22/2016 Active Misc. Devices Accu-check guide glucometer kit and lancets E11.9 Use daily as directed 1 Each 0 09/29/2020 Active Depend Adjustable Underwear Lg Use twice daily 64 Each 11 09/29/2020 Active Acetaminophen 325 MG Oral Tablet Take 1 Tablet by mouth every 6 hours as needed. 0 Active amLODIPine Besylate 2.5 MG Oral Tablet (Norvasc)Indications: HTN, goal below 140/90 Take by mouth 1 Tablet before bedtime. 90 Tablet 3 12/16/2021 Active Rollator Ultra-Light Use as directed/needed 1 Each 0 07/05/2022 Active Triamcinolone Acetonide 0.5 % External Cream (Aristocort) Apply topically to affected area 2 times a day. To affected area. 60 g 5 10/11/2022 Active Accu-Chek Guide w/Device Kit Use as directed. Check sugars once daily E11.9 1 Kit 0 01/17/2023 Active Accu-Chek Guide In Vitro Strip (Glucose Blood) Check sugars once daily E11.9 100 Strip 3 01/17/2023 Active Accu-Chek Softclix Lancets Check sugars once daily E11.9 100 Each 3 01/17/2023 Active Ondansetron 4 MG Oral Tablet Disintegrating (Zofran) Place 1 Tablet under the tongue every 8 hours as needed for Nausea or Vomiting. 20 Tablet 11 04/04/2023 Active Nitroglycerin 0.4 MG Sublingual Tablet Sublingual (Nitrostat)Indication s:NICM (nonischemic cardiomyopathy) (HCC) Place 1 Tablet under the tongue every 5 minutes as needed for Pain, Chest. 25 Tablet 5 05/08/2023 Active Famotidine 20 MG Oral Tablet (Pepcid) TAKE 1 TABLET BY MOUTH IN THE MORNING AND AT BEDTIME 180 Tablet 1 08/24/2023 Active Atorvastatin Calcium 40 MG Oral Tablet (Lipitor) TAKE 1 TABLET BY MOUTH AT BEDTIME 90 Tablet 1 08/24/2023 Active Isosorbide Mononitrate ER 30 MG Oral Tablet Extended Release 24 Hour (Imdur) TAKE 1 TABLET BY MOUTH ONCE DAILY IN THE MORNING 90 Tablet 1 08/24/2023 Active Furosemide 20 MG Oral Tablet (Lasix) Take 1 Tablet by mouth in the morning and 1 Tablet before bedtime. Plus additional one three days per week. 68 Tablet 11 09/04/2023 Active Calcitriol 0.5 MCG Oral Capsule (Rocaltrol)Indication s:Vitamin D deficiency Take 1 Capsule by mouth in the morning. 3 Capsule 11 10/19/2023 Active Ventolin HFA 108 (90 Base) MCG/ACT Inhalation Aerosol SolutionIndications:C ough INHALE 2 PUFFS IN THE MORNING, 2 PUFFS AT NOON, 2 PUFFS IN THE EVENING AND 2 PUFFS AT BEDTIME 54 g 3 11/02/2023 Active Allopurinol 100 MG Oral Tablet (Zyloprim)Indications :Gout of big toe TAKE 1 TABLET BY MOUTH ONCE DAILY IN THE MORNING 30 Tablet 5 11/17/2023 Active Levothyroxine Sodium 88 MCG Oral Tablet (Levoxyl) TAKE 1 TABLET BY MOUTH ONCE DAILY IN THE MORNING AT LEAST 30 MINUTES PRIOR TO BREAKFAST OR OTHER MEDS 90 Tablet 1 12/15/2023 Active Escitalopram Oxalate 10 MG Oral Tablet (Lexapro)Indications: MELQUIADES (generalized anxiety disorder) TAKE 1 TABLET BY MOUTH ONCE DAILY IN THE MORNING 90 Tablet 1 12/15/2023 Active Clopidogrel Bisulfate 75 MG Oral Tablet (pLAVix)Indications:C hronic ischemic right MCA stroke,Cardiac pacemaker in situ TAKE 1 TABLET BY MOUTH ONCE DAILY IN THE MORNING 90 Tablet 1 01/11/2024 Active Metoprolol Succinate ER 25 MG Oral Tablet Extended Release 24 Hour (toPROL XL)Indications:Suprav entricular tachycardia (HCC) TAKE 1 TABLET BY MOUTH ONCE DAILY IN THE MORNING 90 Tablet 1 01/11/2024 Active Eliquis 2.5 MG Oral Tablet (Apixaban) TAKE 1 TABLET BY MOUTH IN THE MORNING AND AT BEDTIME 180 Tablet 1 01/11/2024 Active documented as of this encounter (statuses as of 01/18/2024) Active Problems Problem Noted Date Diagnosed Date Chronic heart failure with r educed ejection fraction and diastolic dysfunction 01/01/2024 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 [...] as of this encounter (statuses as of 01/18/2024) Resolved Problems Problem Noted Date Diagnosed Date Resolved Date Acute respiratory failure with hypoxia 10/08/2021 11/03/2021 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 [...] as of this encounter (statuses as of 01/18/2024) Immunizations Name Administration Dates Next Due COVID-19 [...] encounter Miscellaneous Notes * Telephone Encounter - Helen Morgan LPN - 01/18/2024 11:50 AM EDT Care Gaps Comprehensive Care Outreach Last Office/Telemedicine Visit: 10/19/2023 (in office), Visit date not found (telemedicine) Next Office Visit: Visit date not found Hemoglobin AIC Results: Lab Results Component Value Date/Time HEMOGLOBIN A1C - [facility] 6.4 (H) 09/22/2023 02:34 PM HEMOGLOBIN A1C - [facility] 5.7 (H) 01/16/2023 12:22 PM HEMOGLOBIN A1C - [facility] 6.7 (H) 10/08/2021 02:58 PM HEMOGLOBIN A1C - [facility] 6.4 (H) 08/21/2020 12:23 PM HEMOGLOBIN A1C - [facility] 6.1 (H) 01/27/2020 01:30 PM HEMOGLOBIN A1C - [facility] 5.8 (H) 01/23/2019 09:20 AM BP Readings from Last 1 Encounters: 01/01/24 144/74 Reviewed Health Maintenance below: Health Maintenance Topic Date Due Hgb Never done Zoster Vaccines (2 of 3) 02/01/2016 Diabetic Eye Exam 11/23/2016 Depression Screening 02/09/2021 Diabetic Foot Exam 03/23/2021 COLONOSCOPY-EVERY 5 YRS AGES 18-100 05/19/2021 Influenza Vaccine (FLU shot) (1) 06/23/2023 COVID-19 Vaccine (4 - season) 2023 Phosphate 09/06/2023 Nephrology Referral 03/10/2024 HbA1c 03/23/2024 GFR 04/19/2024 Ov Labs Eyes Care Gap Outreach Action Taken: Left message documented in this encounter Plan of Treatment Upcoming Encounters Date Type Department Care Team (Late st Contact Info) Description 02/20/2024 10:00 AM EDT Office Visit Cardiology, [facility] [address] [facility] [place] [address] uRby Blandon CRNP [address] [place] [address] 03/07/2024 2:00 PM EDT Office Visit Audiology [facility] [address] [place] [address] Eloisa Galvan Au.D. [address] [place] [address] 03/28/2024 2:40 PM EDT [facility] [place] [address] Yehuda Eckert MD [address] [facility] [place] [address] Scheduled Procedures Name Priority Associated Diagnoses Date/Ti me COLONOSCOPY FLEXIBLE PROXIMAL DIAGNOSTIC Recall History of colon polyps Health Maintenance Due Date Last Done Comments Hgb 1963 Zoster Vaccines (2 of 3) 02/01/2016 12/07/2015 Diabetic Eye Exam 11/23/2016 11/23/2015, , 05/30/2013, Additional history exists Depression Screening 02/09/2021 02/10/2020 Diabetic Foot Exam 03/23/2021 03/23/2020, 0 06/10/2019, 02/06/2018, Additional history exists COLONOSCOPY-EVERY 5 YRS AGES 18-100 05/19/2021 05/19/2016, 05/19/2016 COVID-19 Vaccine (2022- season) 2023 11/19/2021, 05/19/2021, 04/21/2021 Influenza Vaccine (FLU shot) (#1) 2023 07/30/2022, 07/09/2021, 07/06/2020, Additional history exists Phosphate 09/06/2023 09/06/2022, 0905/2022, 01/27/2022, Additional history exists Nephrology Referral 03/10/2024 03/10/2023, 2 HbA1c 03/23/2024 09/22/2023, 12/22, 10/08/2021, Additional history exists GFR 04/19/2024 10/19/2023, 01/2023, 09/22/2023, Additional history exists PTH 09/22/2024 09/22/2023, 05/2022, 01/27/2022, Additional history exists Albumin/Creatinine Ratio 09/25/2024 023, 03/24/2021, 01/22/2016, Additional history exists TSH 10/19/2024 10/19/2023, 04/22, [...] Documents on File Type Date 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
--- OUTSIDE RECORDS SUMMARY | 2024-02-29 21:35 | External Medical Summary | Summary of Care ---
Author Name Unknown Organization [facility] Address [address] [place] [address] Phone [phone] Care Team Providers Care Jig And Fixture Repairer Name Role Phone Kasandra Antunez DO Primary Care Provider Encounter Details Date Type Department Care Team (Late st Contact Info) Description 02/27/2024 Orders Only PATIENT PORTAL DO NOT DELETE THIS DEPT USED BY [place] [phone] Allergies Active Allergy Reactions Criticality Noted Date Comments Codeine Psych complications 12/05/2011 documented as of this encounter (statuses as of 02/27/2024) Medications Medication Sig Dispensed Refills Start Date [...] as needed for Pain, Chest. 25 Tablet 05/08/2023 Active Furosemide 20 MG Oral Tablet (Lasix) Take 1 Tablet by mouth in the morning and 1 Tablet before bedtime. Plus additional one three days per week. 68 Tablet 09/04/2023 Active Calcitriol 0.5 MCG Oral Capsule (Rocaltrol)Indication s:Vitamin D deficiency Take 1 Capsule by mouth in the morning. 3 Capsule 10/19/2023 Active Ventolin HFA 108 (90 Base) [...] TO BREAKFAST OR OTHER MEDS 90 Tablet 12/15/2023 Active Escitalopram Oxalate 10 MG Oral Tablet (Lexapro)Indications: MELQUIADES (generalized anxiety disorder) TAKE 1 TABLET BY MOUTH ONCE DAILY IN THE MORNING 90 Tablet 12/15/2023 Active Clopidogrel Bisulfate 75 MG Oral [...] AT BEDTIME 180 Tablet 1 01/11/2024 Active Atorvastatin Calcium 40 MG Oral Tablet (Lipitor) TAKE 1 TABLET BY MOUTH AT BEDTIME 90 Tablet 1 02/13/2024 Active Famotidine 20 MG Oral Tablet (Pepcid) TAKE 1 TABLET BY MOUTH IN THE MORNING AND AT BEDTIME 180 Tablet 1 02/13/2024 Active Isosorbide Mononitrate ER 30 MG Oral Tablet Extended Release 24 Hour (Imdur) TAKE 1 TABLET BY MOUTH ONCE DAILY IN THE MORNING 90 Tablet 1 02/13/2024 Active documented as of this encounter (statuses as of 02/27/2024) Active Problems Problem Noted Date Diagnosed Date Chronic heart failure with r educed ejection fraction and diastolic dysfunction 01/01/2024 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 [...] as of this encounter (statuses as of 02/27/2024) Resolved Problems Problem Noted Date Diagnosed Date Resolved Date Acute respiratory failure with hypoxia 10/08/2021 11/03/2021 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 04/06/2021 10/08/2021 Overview: Per CKD protocol Cardiomyopathy due to hypert ension, without heart failure 03/24/2021 10/19/2023 Type 2 diabetes mellitus wit h stage 3 chronic kidney disease and hypertension 03/24/2021 04/08/20 Overview: Per CKD protocol Kidney disease, chronic, [...] as of this encounter (statuses as of 02/27/2024) Immunizations Name Administration Dates Next Due COVID-19 [...] on file documented as of this encounter Plan of Treatment Upcoming Encounters Date Type Department Care Team (Late st Contact Info) Description 03/07/2024 2:00 PM EDT Office Visit Audiology [facility] [address] [place] [address] Eloisa Galvan Au.D. [address] [place] [address] 03/28/2024 2:40 PM EDT Office Visit Tiffanie Tate [address] [facility] [place] [address] Yehuda Eckert MD [address] [facility] [place] [address] Scheduled Procedures Name Priority Associated Diagnoses Date/Ti me COLONOSCOPY FLEXIBLE PROXIMAL DIAGNOSTIC Recall History of colon polyps Health Maintenance Due Date Last Done Comments Zoster Vaccines (2 of 3) 02/01/2016 12/07/2015 Diabetic Eye Exam 11/23/2016 11/23/2015, , 05/30/2013, Additional history exists Depression Screening 02/09/2021 02/10/2020 Diabetic Foot Exam 03/23/2021 03/23/2020, 0 06/10/2019, 02/06/2018, Additional history exists Colonoscopy 05/19/2021 05/19/2016, 05/19/2016 COVID-19 Vaccine ( season) 2023 11/19/2021, 05/19/2021, 04/21/2021 Phosphate 09/06/2023 09/06/2022, 09/0 05/2022, 01/27/2022, Additional history exists Nephrology Referral 03/10/2024 03/10/2023, 2 HbA1c 03/23/2024 09/22/2023, 03/2 04/2023, 10/08/2021, Additional history exists GFR 04/19/2024 10/19/2023, 120 01/2023, 09/22/2023, Additional history exists Influenza Vaccine [...] Completed 08/03/2015, 09/09/2013, 10/19/2010, Additional history exists RETIRED - COLONOSCOPY-EVERY 5 YRS AGES 18-100 Discontinued 05/19/2016, 05/19/2016 GARDASIL-HPV IMMUNIZATION SERIES Aged Out No longer [...] Documents on File Type Date Recorded 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
--- OUTSIDE RECORDS SUMMARY | 2024-02-29 21:35 | External Medical Summary | Summary of Care ---
Author Name Unknown Organization [facility] Address [address] [place] [facility] [place] [place] [address] Phone [phone] Care Team Providers Care Heel Splitter Name Role Phone Kasandra Antunez DO Primary Care Provider Reason for Referral * Evaluate & Treat - Unlimited Visits (Within 10 days (routine)) - Authorized Specialty Diagnoses / Procedures Referred By Contac t Referred To Contact Sleep Medicine / Sleep Disorders Diagnoses Hypoxemia HFrEF (heart failure with reduced ejection fraction) (HCC) Oxygen desaturation during sleep Maggie Sepulveda PA-C [address] [place] [address] Referral ID Status Reason Start Date Expiration Date Visits Requested Visits Authorized [id number] Authorized Specialty Services Required 02/15/2024 2 2 Question Answer Referral Priority Within 10 days (routine) Where should this appointment be scheduled? [facility] SLEEP MED ADULT REFERRAL Sleep Apnea Testing and Management Does the patient snore and/or gasp at night or has been told they stop breathing at night? Unknown Comments Nocturnal hypoxia. Episodes of desaturation on nocturnal monitor. Reason for Visit * Reason Onset Date Comments Information 02/15/2024 Encounter Details Date Type Department Care Team (Late st Contact Info) Description 02/15/2024 Telephone Cardiology, [facility] [address] [place] [address] Maggie Sepulveda PA-C [address] [place] [address] Information Allergies Active Allergy Reactions Criticality Noted Date Comments Codeine Psych complications 12/05/2011 documented as of this encounter (statuses as of 02/15/2024) Medications Medication Sig Dispensed Refills Start Date [...] Pain, Chest. 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 Verbalized understanding Agreed to plan of care. Agreeable orders placed. * Telephone Encounter - Valentina Gresham LPN - 02/15/2024 3:57 PM EDT ----- Message from Maggie Sepulveda PA-C sent at 02/07/2024 3:07 PM EDT ----- Mild nocturnal hypoxia noted. She also had 37 episodes of desaturations. May benefit from formal sleep med evaluation - ? BRITTANY Need for CPAP vs just nocturnal oxygen Would recommend sleep med referral if patient is agreeable. documented in this encounter Plan of Treatment Upcoming Encounters Date Type Department Care Team (Late st Contact Info) Description 02/20/2024 10:00 AM EDT Office Visit Cardiology, [facility] [address] [facility] [place] [address] Ruby Blandon CRNP [address] [place] [address] 03/07/2024 2:00 PM EDT Office Visit Audiology [facility] [address] [facility] [place] [address] Eloisa Galvan Au.D. [address] [facility] [place] [address] 03/28/2024 2:40 PM EDT Office Visit Nephrology, [facility] [address] [facility] [place] [address] Yehuda Eckert MD [address] [facility] [place] [address] Scheduled Procedures Name Priority Associated Diagnoses Date/Ti me COLONOSCOPY FLEXIBLE PROXIMAL DIAGNOSTIC Recall History of colon polyps Scheduled Referrals Name Type Priority Associated Diagnoses Orde r Schedule SLEEP MEDICINE REFERRAL OP Referral Within 10 days (routine) Hypoxemia HFrEF (heart failure with reduced ejection fraction) (HCC) Oxygen desaturation during sleep Ordered: 02/15/2024 Health Maintenance Due Date Last Done Comments Zoster Vaccines (2 of 3) 02/01/2016 12/07/2015 Diabetic Eye Exam 11/23/2016 11/23/2015, , 05/30/2013, Additional history exists Depression Screening 02/09/2021 02/10/2020 Diabetic Foot Exam 03/23/2021 03/23/2020, 0 06/10/2019, 02/06/2018, Additional history exists COLONOSCOPY-EVERY 5 YRS AGES 18-100 05/19/2021 05/19/2016, 05/19/2016 COVID-19 Vaccine ( season) 2023 11/19/2021, 05/19/2021, 04/21/2021 Phosphate 09/06/2023 09/06/2022, 0 05/2022, 01/27/2022, Additional history exists Nephrology Referral 03/10/2024 03/10/2023, 2 HbA1c 03/23/2024 09/22/2023, 03/2 04/2023, 10/08/2021, Additional history exists GFR 04/19/2024 10/19/2023, 01/2023, 09/22/2023, Additional history exists Influenza Vaccine (FLU shot) (Season Ended) 2024 07/30/2022, 07/09/2021, 07/06/2020, Additional history exists PTH 09/22/2024 09/22/2023, 0 05/2022, 01/27/2022, Additional history exists Albumin/Creatinine Ratio 09/25/2024 023, 03/24/2021, 01/22/2016, Additional history exists Hgb 10/19/2024 10/19/2023, 1210/2022, 09/04/2023, Additional history exists TSH 10/19/2024 10/19/2023, [...] Not on filedocumented as of this encounter Visit Diagnoses Diagnosis Oxygen desaturation during sleep- Primary Hypoxemia Hypoxemia HFrEF (heart failure with reduced ejection fraction) (HCC) documented in this encounter Advance Directives Documents on File Type Date Recorded 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
--- OUTSIDE RECORDS SUMMARY | 2024-02-29 21:35 | External Medical Summary | Summary of Care ---
Author Name Unknown Organization [facility] Address [address] [place] [address] Phone [phone] Care Team Providers Care Head Animal Keeper Name Role Phone Kasandra Antunez DO Primary Care Provider Reason for Visit * Reason Comments Acute Cat bite Encounter Details Date Type Department Care Team (Late st Contact Info) Description 02/27/2024 3:00 PM EDT Office Visit General Internal Medicine [facility] [address] [place] [address] Jesus Velazquez DO [address] [place] [address] Cat bite of right wrist, initial encounter*; Cellulitis of right upper extremity; Right wrist pain Allergies Active Allergy Reactions Criticality Noted Date [...] Active amLODIPine Besylate 2.5 MG Oral Tablet (Norvasc)Indications :HTN, goal below 140/90 Take by mouth 1 [...] Active Nitroglycerin 0.4 MG Sublingual Tablet Sublingual (Nitrostat)Indicatio ns:NICM (nonischemic cardiomyopathy) (HCC) Place 1 Tablet under the tongue every 5 minutes as needed for Pain, Chest. 25 Tablet 5 05/08/2023 Active Furosemide 20 MG Oral Tablet (Lasix) Take 1 Tablet by mouth in the morning and 1 Tablet before bedtime. Plus additional one three days per week. 68 Tablet 11 09/04/2023 Active Calcitriol 0.5 MCG Oral Capsule (Rocaltrol)Indicatio ns:Vitamin D deficiency Take 1 Capsule by mouth in the morning. 3 Capsule 11 10/19/2023 Active Ventolin HFA 108 (90 Base) MCG/ACT Inhalation Aerosol SolutionIndications: Cough INHALE 2 PUFFS IN THE MORNING, 2 PUFFS AT NOON, 2 PUFFS IN THE EVENING AND 2 PUFFS AT BEDTIME 54 g 3 11/02/2023 Active Allopurinol 100 MG Oral Tablet (Zyloprim)Indication s:Gout of big toe TAKE 1 TABLET BY MOUTH ONCE DAILY IN THE MORNING 30 Tablet 5 11/17/2023 Active Levothyroxine Sodium 88 MCG Oral Tablet (Levoxyl) TAKE 1 TABLET BY MOUTH ONCE DAILY IN THE MORNING AT LEAST 30 MINUTES PRIOR TO BREAKFAST OR OTHER MEDS 90 Tablet 1 12/15/2023 Active Escitalopram Oxalate 10 MG Oral Tablet (Lexapro)Indications :MELQUIADES (generalized anxiety disorder) TAKE 1 TABLET BY MOUTH ONCE DAILY IN THE MORNING 90 Tablet 1 12/15/2023 Active Clopidogrel Bisulfate 75 MG Oral Tablet (pLAVix)Indications: Chronic ischemic right MCA stroke,Cardiac pacemaker in situ TAKE 1 TABLET BY MOUTH ONCE DAILY IN THE MORNING 90 Tablet 1 01/11/2024 Active Metoprolol Succinate ER 25 MG Oral Tablet Extended Release 24 Hour (toPROL XL)Indications:Supra ventricular tachycardia (HCC) TAKE 1 TABLET BY MOUTH ONCE DAILY IN THE MORNING 90 Tablet 1 01/11/2024 Active Eliquis 2.5 MG Oral Tablet (Apixaban) TAKE 1 TABLET BY MOUTH IN THE MORNING AND AT BEDTIME 180 Tablet 1 01/11/2024 Active Atorvastatin Calcium 40 MG Oral Tablet (Lipitor) TAKE 1 TABLET BY MOUTH AT BEDTIME 90 Tablet 02/13/2024 Active Famotidine 20 MG Oral Tablet (Pepcid) TAKE 1 TABLET BY MOUTH IN THE MORNING AND AT BEDTIME 180 Tablet 1 02/13/2024 Active Isosorbide Mononitrate ER 30 MG Oral Tablet Extended Release 24 Hour (Imdur) TAKE 1 TABLET BY MOUTH ONCE DAILY IN THE MORNING 90 Tablet 1 02/13/2024 Active Cephalexin 500 MG Oral CapsuleIndications:C at bite of right wrist, initial encounter,Cellulitis of right upper extremity Take 1 Capsule by mouth in the morning and 1 Capsule at noon and 1 Capsule before bedtime. Do all this for 10 days. 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 [...] Date Smoking Tobacco: Never Smokeless Tobacco: Never Tobacco Cessation:Counseling Given: Not Answered Alcohol Use Standard Drinks/Week Comments No 0 [...] on file documented as of this encounter Last Filed Vital Signs Vital Sign Reading Time Taken Comments Blood Pressure 110/72 02/27/2024 3:15 PM EDT Pulse 110 02/27/2024 3:15 PM EDT Temperature 36.9 C (98.4 F) 02/27/2024 3:15 PM ED T Respiratory Rate 16 02/27/2024 3:15 PM EDT Oxygen Saturation 98% 02/27/2024 3:15 PM EDT Inhaled Oxygen Concentration - - Weight 76.5 kg (168 lb 11.2 oz) 02/27/2024 3:15 PM EDT Height 152.4 cm (5') 02/27/2024 3:15 PM EDT Body Mass Index 32.95 02/27/2024 3:15 PM EDT documented in this encounter Progress Notes * Jesus Velazquez, DO - 02/27/2024 3:20 PM EDT Subjective Nancy Gabriel is a 78 year old female. Chief Complaint Patient presents with Acute Cat bite HPI: Patient presents to office for evaluation of cat. Occurred last week. Caregiver believes it was a bite. Occurred on the right wrist area. Has been some continued redness and slight swelling in the area. Is tender to touch. Does not seem to be spreading. Did not note any swelling elsewhere in the forearm. No red streaking. Does seem to have some increased pain/stiffness in the right wrist since then. No fever chills noted. No obvious swelling of lymph nodes in right axillary PMH: Patient Active Problem List Diagnosis Code Hyperlipidemia with target LDL less than 100 E78.5 DDD (degenerative disc disease), cervical M50.30 GERD (gastroesophageal reflux disease) K21.9 Vitamin D deficiency E55.9 Hypertensive cardiomyopathy (HCC) I11.9, I43 HTN, goal below 140/90 I10 Edentulous K08.109 Gout of big toe M10.9 MELQUIADES (generalized anxiety disorder) F41.1 Paroxysmal atrial tachycardia ([facility]) I47.19 CKD (chronic kidney disease) stage 4, GFR 15-29 ml/min (HCC) N18.4 Chronic ischemic right MCA stroke Z86.73 Paroxysmal atrial fibrillation ([facility]) I48.0 Sensorineural hearing loss (SNHL) of both ears H90.3 Tachy-leeanne syndrome ([facility]) I49.5 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, without behavioral disturbance ([facility]) F02.80 Endometrial thickening on ultrasound R93.89 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, E06.3 History of colon polyps Z86.010 Cardiac pacemaker in situ Z95.0 NICM (nonischemic cardiomyopathy) ([facility]) I42.8 Prediabetes R73.03 Aspiration pneumonia of right lower lobe due to vomit ([facility]) J69.0 Idiopathic gout of multiple sites M10.09 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 ([facility]) E11.22, I12.9,N18.4 Chronic heart failure with reduced ejection fraction and diastolic dysfunction ([facility]) I50.42 Current Outpatient Medications Medication Sig Dispense Refill Spacer/Aero-Holding Chambers SISI Use with inhaler. 1 Device 0 Misc. Devices Accu-check guide glucometer kit and lancets E11.9 Use daily as directed 1 Each 0 Depend Adjustable Underwear Lg Use twice daily 64 Each 11 Acetaminophen 325 MG Oral Tablet Take 1 Tablet by mouth every 6 hours as needed. amLODIPine Besylate 2.5 MG Oral Tablet (Norvasc) Take by mouth 1 Tablet before bedtime. 90 Tablet 3 Rollator Ultra-Light Use as directed/needed 1 Each 0 Triamcinolone Acetonide 0.5 % External Cream (Aristocort) Apply topically to affected area 2 times a day. To affected area. 60 g 5 Accu-Chek Guide w/Device Kit Use as directed. Check sugars once daily E11.9 1 Kit 0 Accu-Chek Guide In Vitro Strip (Glucose Blood) Check sugars once daily E11.9 100 Strip 3 Accu-Chek Softclix Lancets Check sugars once daily E11.9 100 Each 3 Ondansetron 4 MG Oral Tablet Disintegrating (Zofran) Place 1 Tablet under the tongue every 8 hours as needed for Nausea or Vomiting. 20 Tablet 11 Nitroglycerin 0.4 MG Sublingual Tablet Sublingual (Nitrostat) Place 1 Tablet under the tongue every5 minutes as needed for Pain, Chest. 25 Tablet 5 Furosemide 20 MG Oral Tablet (Lasix) Take 1 Tablet by mouth in the morning and 1 Tablet before bedtime. Plus additional one three days per week. 68 Tablet 11 Calcitriol 0.5 MCG Oral Capsule (Rocaltrol) Take 1 Capsule by mouth in the morning. 3 Capsule 11 Ventolin HFA 108 (90 Base) MCG/ACT Inhalation Aerosol Solution INHALE 2 PUFFS IN THE MORNING, 2 PUFFS AT NOON, 2 PUFFS IN THE EVENING AND 2 PUFFS AT BEDTIME 54 g 3 Allopurinol 100 MG Oral Tablet (Zyloprim) TAKE 1 TABLET BY MOUTH ONCE DAILY IN THE MORNING 30 Tablet 5 Levothyroxine Sodium 88 MCG Oral Tablet (Levoxyl) TAKE 1 TABLET BY MOUTH ONCE DAILY IN THE MORNING AT LEAST 30 MINUTES PRIOR TO BREAKFAST OR OTHER MEDS 90 Tablet 1 Escitalopram Oxalate 10 MG Oral Tablet (Lexapro) TAKE 1 TABLET BY MOUTH ONCE DAILY IN THE MORNING 90 Tablet 1 Clopidogrel Bisulfate 75 MG Oral Tablet (pLAVix) TAKE 1 TABLET BY MOUTH ONCE DAILY IN THE MORNING 90 Tablet 1 Metoprolol Succinate ER 25 MG Oral Tablet Extended Release 24 Hour (toPROL XL) TAKE 1 TABLET BY MOUTH ONCE DAILY IN THE MORNING 90 Tablet 1 Eliquis 2.5 MG Oral Tablet (Apixaban) TAKE 1 TABLET BY MOUTH IN THE MORNING AND AT BEDTIME 180 Tablet 1 Atorvastatin Calcium 40 MG Oral Tablet (Lipitor) TAKE 1 TABLET BY MOUTH AT BEDTIME 90 Tablet 1 Famotidine 20 MG Oral Tablet (Pepcid) TAKE 1 TABLET BY MOUTH IN THE MORNING AND AT BEDTIME 180 Tablet 1 Isosorbide Mononitrate ER 30 MG Oral Tablet Extended Release 24 Hour (Imdur) TAKE 1 TABLET BY MOUTHONCE DAILY IN THE MORNING 90 Tablet 1 No current facility-administered medications for this visit. Past Medical History: Diagnosis Date Anxiety DDD (degenerative disc disease), cervical Dr. Coulter Diabetes mellitus 2004 GERD (gastroesophageal reflux disease) HTN, goal below 130/80 Hyperlipidemia LDL goal < 100 Osteoporosis Past Surgical History: Procedure Laterality Date ARTHROSCOPY OF JOINT left knee Dr. Eduardo OROSCO TUNNEL SURGERY [facility] [place] Clark COLONOSCOPY, DIAGNOSTIC (RECTUM) 05/19/2016 adenomatous polyp, diverticulosis, repeat 5 yrs/[facility] D&C.EDU. EXCISE BENIGN LESION, TRUNK ARM LEG GREATER THAN 4.0 CM Lump in back by Dr. Tucker INFORMATION 11/08/2013 11/08/2013 at [facility], Repair of ventral hernia Dr. Mcnair with orthodontist assistant Freedom Valdivia PA-C PACEMAKER INSERTION PER 07/2020 PATIENT EDU, LUMPECTOMY FOR MALIGN* back REMOVE GALLBLADDER Dr. Tucker Review of patient's allergies indicates: Allergen Reactions Codeine Psych complications Family History Problem Relation Age of Onset Other (hepatitis C) Sister of this Diabetes Sister Breast Cancer Sister Other (BRCA) Sister Other (Valvular heart disease) Sister Other (No CKD, ESRD, nephrolithiasis) None Other (cad) Son in his 30s Arthritis Mother Cancer Mother Uterus, age 45 Other (DM) Mother siblings Arthritis Father Diabetes Sister 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 Sister Family Status Relation Status Sis (Not Specified) Sis (Not Specified) Sis (Not Specified) NONE (Not Specified) Son (Not Specified) Mo (Not Specified) Fa (Not Specified) Sis (Not Specified) Social History Socioeconomic History Marital status: Spouse name: Not on file Number of children: Not on file Years of education: Not on file Highest education level: Not on file Occupational History Not on file Tobacco Use Smoking status: Never Smokeless tobacco: Never Vaping Use Vaping Use: Never used Substance and Sexual Activity Alcohol use: No Drug use: No Sexual activity: Not on file Other Topics Concern Not on file Social History Narrative Not on file Social Determinants of Health Financial Resource Strain: Not on file Food Insecurity: Not on file Transportation Needs: Not on file Physical Activity: Not on file Stress: Not on file Social Connections: Not on file Intimate Partner Violence: Not on file Housing Stability: Not on file Review of Systems Constitutional: Negative for chills and fever. HENT: Negative for congestion, sore throat and trouble swallowing. Eyes: Negative for photophobia and itching. Respiratory: Negative for apnea and cough. Cardiovascular: Negative for chest pain and palpitations. Gastrointestinal: Negative for abdominal distention, abdominal pain, nausea and vomiting. Genitourinary: Negative for dysuria and frequency. Musculoskeletal: Negative for arthralgias and myalgias. Skin: Positive for rash and wound. Negative for pallor. Neurological: Negative for dizziness, light-headedness and headaches. Psychiatric/Behavioral: Negative for sleep disturbance. The patient is not nervous/anxious. Objective BP 110/72 | Pulse 110 | Temp 36.9 C (98.4 F) (Tympanic) | Resp 16 | Ht 1.524 m (5') | Wt 76.5 kg (168 lb 11.2 oz) | SpO2 98% | BMI 32.95 kg/m | BSA 1.8 m Physical Exam Constitutional: General: She is not in acute distress. Appearance: She is not ill-appearing. HENT: Head: Normocephalic and atraumatic. Right Ear: Tympanic membrane, ear canal and external ear normal. Left Ear: Tympanic membrane, ear canal and external ear normal. Nose: Nose normal. No congestion or rhinorrhea. Mouth/Throat: Mouth: Mucous membranes are moist. Pharynx: Oropharynx is clear. Eyes: General: No scleral icterus. Extraocular Movements: Extraocular movements intact. Conjunctiva/sclera: Conjunctivae normal. Pupils: Pupils are equal, round, and reactive to light. Cardiovascular: Rate and Rhythm: Normal rate and regular rhythm. Pulses: Normal pulses. Heart sounds: Normal heart sounds. No murmur heard. No friction rub. No gallop. Pulmonary: Effort: Pulmonary effort is normal. Breath sounds: Normal breath sounds. No wheezing, rhonchi or rales. Abdominal: General: Bowel sounds are normal. There is no distension. Palpations: Abdomen is soft. There is no mass. Tenderness: There is no abdominal tenderness. There is no right CVA tenderness or left CVA tenderness. Musculoskeletal: General: No deformity. Cervical back: Normal range of motion and neck supple. Right lower leg: No edema. Left lower leg: No edema. Comments: On examination of right wrist seems to be some discomfort with flexion/extension. No obvious deformities. No crepitus. No palpable effusion in the right wrist joint Lymphadenopathy: Cervical: No cervical adenopathy. Skin: General: Skin is warm and dry. Coloration: Skin is not jaundiced. Findings: Erythema and rash present. Comments: Rash on right wrist seems more like scratch injury then puncture that would expect from cat bite. There is some adjacent erythema. Is tender to touch. There is some slight swelling in the area. No obvious warmth. No palpable fluctuance. Did not notice any palpable lymphadenopathy right axillary area Neurological: General: No focal deficit present. Mental Status: She is oriented to person, place, and time. Cranial Nerves: No cranial nerve deficit. Sensory: No sensory deficit. Motor: No weakness. Psychiatric: Mood and Affect: Mood normal. Behavior: Behavior normal. ASSESSMENT/PLAN: Cat bite of right wrist, initial encounter (Primary) - XR WRIST 3 OR MORE VIEWS - Cephalexin 500 MG Oral Capsule; Take 1 Capsule by mouth in the morning and 1 Capsule at noon and 1 Capsule before bedtime. Do all this for 10 days. Cellulitis of right upper extremity - Cephalexin 500 MG Oral Capsule; Take 1 Capsule by mouth in the morning and 1 Capsule at noon and 1 Capsule before bedtime. Do all this for 10 days. Right wrist pain - XR WRIST 3 OR MORE VIEWS Plan: Patient presents to office for evaluation of cat scratch injury. Again area seems more like scratch then puncture wound. No right axillary lymphadenopathy that would represent cat scratch disease Does seem like she has mild cellulitis at the injury site. No obvious fluctuance or abscess. Would like to start treatment with Keflex 500 mg three times daily for 10 days. Counseled on common side effects which to monitor Unsure if stiffness, painful range of motion at right wrist is related to cat scratch injury. Wouldlike to check x-ray today to further evaluate for any deformities Will follow-up with patient once x-ray results received. Instructed to reach out to office if any increased swelling, pain, redness or warmth. Should also contact office if notes any tenderness or swollen glands in her right armpit area Patient had noted at end of visit some occasional cough. No acute cardiopulmonary findings on exam.No signs of hypervolemia. Does have significant cardiac history and suspect baseline symptoms Continue other meds/management Follow Up: Return if symptoms worsen or fail to improve, for Follow up next routine with PCP as scheduled. | For: Follow up next routine with PCP as scheduled | Check-out note: Follow up if no improvement on abx Xray wrist today Jesus Velazquez DO documented in this encounter Nursing Notes * Carmelina Johnson LPN - 02/27/2024 3:14 PM EDT Patient presents today for a cat scratch on her right arm. She said that it happened last week. Shealso has a productive cough that she said started a couple of weeks ago. documented in this encounter Plan of Treatment Upcoming Encounters Date Type Department Care Team (Late st Contact Info) Description 02/27/2024 3:55 PM EDT Imaging Radiology [facility] [address] [place] [address] Arrived 03/07/2024 2:00 PM EDT Office Visit Audiology [facility] [address] [place] [address] Eloisa Galvan Au.D. [address] [place] [address] 03/28/2024 2:40 PM EDT Office Visit Nephrology, [facility] [address] [place] [address] Yehuda Eckert MD [address] [place] [address] Scheduled Orders Name Type Priority Associated Diagnoses Orde r Schedule XR WRIST 3 OR MORE VIEWS Medical Imaging Routine Cat bite of right wrist, initial encounter Right wrist pain Ordered: 02/27/2024 Scheduled Procedures Name Priority Associated Diagnoses Date/Ti [...] as of this encounter Visit Diagnoses Diagnosis Cat bite of right wrist, initial encounter- Primary Cellulitis of right upper extremity Cellulitis and abscess of upper arm and forearm Right wrist pain Pain in joint, forearm documented in this encounter Advance Directives Documents on File Type Date Recorded Patient Building Services Coordinator Expl anation Advance Directives and Living Will 06/15/2022 ADVANCE DIRECTIVE / LIVING WILL Care Teams Head Animal Keeper Relationship Specialty Start Date End Date Kasandra Antunez DO [address] [place] [address] PCP - General Family Medicine 10/28/11 documented as of this encounter"
[2024-03-01 06:58] LABS: Hematocrit (blood only) 34.9 % (37.0-47.0); Hemoglobin 11.3 g/dl (12.0-16.0); Mean Corpuscular Hemoglobin 32.4 pg (25.0-34.0); Mean Corpuscular Hgb Conc 32.4 g/dL (32.0-36.0); Mean Platelet Volume 10.9 fL (9.4-12.4); Nucleated RBC # (auto) 0.04 K/uL (0.00-0.12); Nucleated RBC % (auto) 0.4 %; Platelet Count 332 K/uL (130-400); RDW Coefficient of Variation 15.3 % (11.5-14.5); Red Blood Count 3.49 M/uL (4.20-5.40)
[2024-03-01 07:29] LABS: Estimated Average Glucose 166 mg/dl; Hemoglobin A1C 7.4 % (4.5-5.6)
[2024-03-01 07:59] LABS: Calcium 9.4 mg/dl (8.6-10.3); Magnesium 2.1 mg/dl (1.7-2.4); Potassium 4.3 mmol/L (3.5-5.1)
[2024-03-01 08:04] LABS: BUN Creatinine Ratio 16.5 (10-20); Est GFR (African American) 20.2 ml/min; Est GFR (Non-African American) 17.5 ml/min
[2024-03-01] MEDS: allopurinoL 100 MG TAB PO SCH (08:36)
[2024-03-01] MEDS: ESCITALOPRAM OXALATE 10 MG TAB PO SCH (08:37)
[2024-03-01] MEDS: CALCITRIOL 0.25 MCG CAPSULE PO SCH (08:37)
[2024-03-01] MEDS: CLOPIDOGREL BISULFATE 75 MG TAB PO SCH (08:37)
[2024-03-01] MEDS: LEVOTHYROXINE SODIUM 88 MCG TABLET PO SCH (08:38)
[2024-03-01] MEDS: FUROSEMIDE 20 MG TAB PO SCH (08:38)
[2024-03-01] MEDS ORDERED: ISOSORBIDE MONO EXTENDED REL 30 MG TABCR PO SCH (09:00)
--- NOTE | 2024-03-01 10:30 | Cardiology Progress Note ---
Date of Service March 01, 2024 Assessment & Plan (1) Atrial fibrillation with rapid ventricular response: (2) Dyspnea: (3) Pulmonary edema: (4) Acute on chronic HFrEF (heart failure with reduced ejection fraction): (5) Nonischemic cardiomyopathy: (6) Cardiac pacemaker: Plan Complex 78-year-old female with severe nonischemic cardiomyopathy, admitted with recurrent symptomatic atrial fibrillation with a rapid ventricular response. Onset of atrial fibrillation 02/23/2024 via device interrogation. Amiodarone previously discontinued in December 2022 due to concerns for pulmonary toxicity. Patient chronically prescribed reduced dose Eliquis anticoagulation. Volume status appears compensated at this time. Heart rates remain uncontrolled with very limited options with prior toxicity to amiodarone, LVEF 20%, creatinine 2.5 mg/dL, systolic blood pressure in the 90's. Risks of cardioversion excessive. Recommendations: 1. Continue metoprolol. Do not hold unless SBP less than 90 mmHg. 2. IV digoxin today 3. Continue anticoagulation with Eliquis, and clopidogrel. 4. Continue furosemide as prescribed for now. 5. Holding amlodipine and isosorbide 6. Suspect patient will ultimately require referral for AVJ ablation, ? device upgrade I spent a total of 40 minutes on the date of service in preparation, delivery, and documentation of the care provided to this patient excluding any time spent in the performance of separately billed services. This visit was a split-shared visit with the substantive portion of the medical decision making performed by the supervising sweet pickled fruit maker/billing provider. Admission and Anticipated Discharge Date Admission Date: February 29, 2024 Supervising Physician Co-Signing Physician Notes I have reviewed the advanced practitioner's documentation, and I agree with, and take responsibility for the plan of care Patient not improved and feels nauseated with malaise this morning. Plan as above continue further attempts at controlling heart rate that may ultimately require AV junction ablation Volume status marginal Would continue furosemide as patient has not been receiving as ordered I spent a total of 30 minutes coordinating, documenting, and providing care for this patient excluding time spent in the performance of separately billed services. All of the aforementioned completed outside of collaborating with the assigned advanced practitioner for a full treatment plan. Subjective Patient seen and examined. Chart, medications, and telemetry reviewed. + Nausea. + Short of breath. No chest pain, palpitations, orthopnea, or peripheral edema. Telemetry: Atrial fibrillation 100-130 bpm. Review of Systems Review of Systems: See above. Complete review of systems is otherwise negative or noncontributory. Patient with underlying dementia. Physical Exam Physical Exam: General: Alert to person and place. NAD. Laying on her right side. HENT: Normocephalic. Atraumatic. Eyes: PER. Conjunctiva pink, sclera clear. Neck: No JVD. Heart: Irregularly irregular at 120 bpm. Soft systolic murmur. Lungs: Diminished. Right basilar crackles. Faint left upper expiratory wheeze. Abdomen: +BS. Soft. Nontender. No masses or organomegaly. Extremities: No clubbing, cyanosis, or edema. Limited neurological examination is without focal deficits. Pulses: Posterior tibial=1/4. Results & Data Vital Signs (Past 12 Hours) Vital Signs Temp Pulse Pulse Resp BP Pulse Ox O2 Del Method 03/01/24 07:42 36.3 C L 112 H 18 91/63 L 90 Room Air 03/01/24 07:18 106 H 03/01/24 03:00 36.4 C L 112 H 16 124/87 90 Room Air Laboratory Results Cardiac Enzymes 02/29/24 Range/Units 11:30 AST 11 L (13-39) U/L Troponin I High Sens 15.7 H (0-14) pg/ml B-Natriuretic Peptide 1377 H (0-100) pg/ml Coagulation 02/29/24 Range/Units 11:30 PT 12.5 H (9.0-12.0) Seconds B-Natriuretic Peptide 1377 H (0-100) pg/ml CBC 02/29/24 03/01/24 Range/Units 11:30 06:36 WBC 11.43 H 11.30 H (4.8-10.8) K/ul RBC 3.61 L 3.49 L (4.20-5.40) M/uL Hgb 11.9 L 11.3 L (12.0-16.0) g/dl Hct 36.8 L 34.9 L (37.0-47.0) % Plt Count 341 332 (130-400) K/uL Neut # (Auto) 7.03 H (1.40-6.50) K/uL Lymph # (Auto) 2.82 (1.20-3.40) K/uL [place] # (Auto) 1.41 H (0.11-0.59) K/uL Eos # (Auto) 0.04 (0.00-0.50) K/uL Baso # (Auto) 0.09 (0.00-0.20) K/uL Comprehensive Metabolic Panel 02/29/24 03/01/24 Range/Units 11:30 06:36 Sodium 141 140 (136-145) mmol/L Potassium 4.2 4.3 (3.5-5.1) mmol/L Chloride 102 104 (98-107) mmol/L Carbon Dioxide 25 19 L (21-32) mmol/L BUN 36 H 42 H (6-23) mg/dl Creatinine 2.33 H 2.54 H (0.6-1.2) mg/dl Glucose 190 H 172 H (70-99(Fasting)) mg/dl Calcium 9.4 9.4 (8.6-10.3) mg/dl AST 11 L (13-39) U/L ALT 9 (7-52) U/L Alkaline Phosphatase 134 H (34-104) U/L Total Protein 7.5 (6.0-8.3) gm/dl Albumin 4.3 (3.4-5.0) gm/dl Intake and Output 02/29/24 03/01/24 03/01/24 22:59 06:59 14:59 Intake Total 300 / 904.25 100 / 904.25 Output Total 150 / 150 Balance 150 / 754.25 100 / 754.25 Intake: IV 100 / 704.25 100 / 704.25 Ampicillin/Sulbactam Sod 3,000 100 / 200 100 / 200 mg In Sodium Chlor 0.9% Mini-B 100 ml @ 200 mls/hr IV Q12H [facility] Rx#:[id number] Oral 200 / 200 Output: Urine 150 / 150 Other: Weight 75.7 kg 75.931 kg Weight Measurement Method Built in [facility] Built in [facility]
[2024-03-01] MEDS: DIGOXIN 250 MCG in SYRINGE 9 ML IV ONE (12:22)
[2024-03-01] MEDS: DIGOXIN 125 MCG in SYRINGE 9.5 ML IV STA (13:41)
--- NOTE | 2024-03-01 15:01 | Hospitalist Progress Note ---
Date of Service March 01, 2024 Assessment & Plan (1) Dyspnea: (2) Atrial fibrillation with rapid ventricular response: (3) Acute on chronic HFrEF (heart failure with reduced ejection fraction): (4) CKD (chronic kidney disease), stage IV: (5) Tachycardia-bradycardia syndrome: (6) History of right MCA stroke: (7) Type 2 diabetes mellitus: (8) HTN (hypertension): Plan This is a 78yo F with a PMH of nonischemic cardiomyopathy, EF 20-25% on echo on 05/14, tachybradycardia syndrome s/p pacemaker, paroxysmal atrial fibrillation on Eliquis, CKD IV, prediabetes, HLD, anxiety, history of CVA, dementia and other medical problems listed below presented with worsening SOB over the past few days and was found to have A fib with RVR and decompensated CHF. A fib with RVR EKG on presentation shows atrial fibrillation with RVR of 137 bpm Of note, amiodarone was discontinued in 01/12 due to concerns for amiodarone toxicity Cardiology recommends to continue metoprolol.Also given IV digoxin Patient may require AV junction ablation if she continues to have difficulty controlling ventricular rate Continue Lasix 20 mg twice daily. Imdur on hold Telemonitoring Acute decompensated HFrEF Non-ischemic cardiomyopathy Most recent 2D echo LV severely dilated, EF 20-24%, with EF of 20%, severe diffuse left ventricular hypokinesis, diastolic function is severely abnormal (grade III). BNP 1377 CXR with cardiomegaly and cardiac pacemaker and evidence of congestive failure. Bilateral airspace opacities likely represent pulmonary edema. Plan to continue home lasix dose 20mg PO BID Strict I&Os/daily weights Cat bite Occurred on 02/26, initial pain has improved on abx (10 day Keflex course started yesterday). on augmentin CKD IV Creatinine similar to baseline Continue to monitor closely Tachybrady syndrome S/p pacemaker placement History of MCA stroke Continue plavix, statin DM II A1c 6.4 in 10/14, Diet controlled SSI while in-patient BSG AC HS HTN Continue metoprolol succinate History of right MCA stroke Continue Plavix, Eliquis, atorvastatin DVT Ppx: Eliquis Code status: DNR PCP: [facility] Dispo: Admitted to PCU Discussed plan of care with patient's sister at bedside and patient's granddaughter Ileana ([phone]) over the phone Time spent evaluating patient, direct bedside care, chart review, placing orders, interpretation of diagnostic studies, discussion with consultants, patient, and family members, as well as other required patient management activities is 50 minutes Please note the above document was generated using voice recognition software. It may contain grammatical, syntax or spelling errors. Any formal questions or concerns about the content, text or information contained within the body of this dictation should be directly addressed to the provider for clarification Admission and Anticipated Discharge Date Admission Date: February 29, 2024 Subjective Patient seen and examined at bedside. She reports nausea today. She also reports slight shortness of breath as well No significant event overnight Review of Systems Review of Systems: All systems reviewed & are unremarkable except as noted in Subjective Physical Exam Physical Exam: Constitutional: WD/WN, vitals as above, NAD, sitting up in bed, pleasant, conversing easily Respiratory: Occasional crackles in bilateral lower lung field Cardiovascular: Irregular, no murmur, no edema Vessels: no JVD or carotid bruit Chest: normal inspection of chest Abdomen: normal bowel sounds, soft, nontender, no hepatosplenomegaly Musculoskeletal: no cyanosis or clubbing, extremities motor strength 5/5 Skin: no rashes, warm and dry normal turgor Neurologic: PERRL, EOMI, accommodation nl, no face palsy, no dysarthria CN's II- XI intact bilaterally and moves all extremities Psychiatric: A+Ox3, euthymic affect Results & Data Results & Data Vital Signs (Past 12 Hours) Vital Signs Temp Pulse Pulse Resp BP Pulse Ox O2 Del Method 03/01/24 13:41 118 H 03/01/24 12:22 106 H 03/01/24 10:50 36.3 C L 110 H 17 100/69 91 Room Air 03/01/24 07:42 36.3 C L 112 H 18 91/63 L 90 Room Air 03/01/24 07:18 106 H 03/01/24 03:00 36.4 C L 112 H 16 124/87 90 Room Air (7) Type 2 diabetes mellitus Diabetes mellitus long-term insulin use: without long-term use Diabetes javed itus complication status: with kidney complications Diabetes mellitus complication detail: with chronic kidney disease Chronic kidney disease stage: stage 3 (moderate) Qualified Code(s): 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
[2024-03-01] MEDS: AMOXICILLIN/CLAVULANATE 500 MG TAB PO SCH (17:21)
--- NOTE | 2024-03-02 06:03 | Electrocardiogram Report ---
Test Reason : Blood Pressure : / mmHG Vent. Rate : 137 BPM Atrial Rate : 000 BPM P-R Int : 000 ms QRS Dur : 144 ms QT Int : 362 ms P-R-T Axes : 000 -81 070 degrees QTc Int : 546 ms Atrial fibrillation with rapid ventricular response Left axis deviation Non-specific intra-ventricular conduction block Minimal voltage criteria for LVH, may be normal variant Septal infarct , age undetermined Abnormal ECG When compared with ECG of 28-MAR-2023 09:31, Atrial fibrillation has replaced AV pacing Vent. rate has increased BY 51 BPM Confirmed by Marvel Granados ([id number]) on 03/02/2024 6:02:31 AM Referred By: REFERRED SELF Confirmed By:Marvel Granados
[2024-03-02 08:12] LABS: Basophils # (auto) 0.05 K/uL (0.00-0.20); Basophils % (auto) 0.4 %; Eosinophils # (auto) 0.04 K/uL (0.00-0.50); Eosinophils % (auto) 0.3 %; Hematocrit (blood only) 34.9 % (37.0-47.0); Hemoglobin 11.2 g/dl (12.0-16.0); Immature Granulocytes # (auto) 0.07 K/uL (0.01-0.20); Immature Granulocytes % (auto) 0.6 %; Lymphocytes # (auto) 1.89 K/uL (1.20-3.40); Lymphocytes % (auto) 15.3 %; Mean Corpuscular Hemoglobin 32.5 pg (25.0-34.0); Mean Corpuscular Hgb Conc 32.1 g/dL (32.0-36.0); Mean Corpuscular Volume 101.2 fL (80.0-100.0); Mean Platelet Volume 11.1 fL (9.4-12.4); Monocytes # (auto) 1.01 K/uL (0.11-0.59); Monocytes % (auto) 8.2 %; Neutrophils # (auto) 9.32 K/uL (1.40-6.50); Neutrophils % (auto) 75.2 %; Nucleated RBC # (auto) 0.02 K/uL (0.00-0.12); Nucleated RBC % (auto) 0.2 %; Platelet Count 294 K/uL (130-400); RDW Coefficient of Variation 15.6 % (11.5-14.5); RDW Standard Deviation 56.7 fL (36.4-46.3); Red Blood Count 3.45 M/uL (4.20-5.40); White Blood Count 12.38 K/ul (4.8-10.8)
[2024-03-02 08:46] LABS: BUN Creatinine Ratio 18.9 (10-20); Calcium 9.3 mg/dl (8.6-10.3); Creatinine Clr Calc Pharmacy 15.7 ml/min; Est GFR (African American) 18.4 ml/min; Est GFR (Non-African American) 15.9 ml/min; Potassium 4.1 mmol/L (3.5-5.1)
--- NOTE | 2024-03-02 09:35 | Cardiology Progress Note ---
Date of Service March 02, 2024 Assessment & Plan (1) Atrial fibrillation with rapid ventricular response: (2) Dyspnea: (3) Pulmonary edema: (4) Acute on chronic HFrEF (heart failure with reduced ejection fraction): (5) Nonischemic cardiomyopathy: (6) Cardiac pacemaker: Plan Complex 78-year-old female with severe nonischemic cardiomyopathy, admitted with recurrent symptomatic atrial fibrillation with a rapid ventricular response. Onset of atrial fibrillation 02/23/2024 via device interrogation. Amiodarone previously discontinued in December 2022 due to concerns for pulmonary toxicity. Patient chronically prescribed reduced dose Eliquis anticoagulation. Volume status appears compensated at this time. Heart rates remain uncontrolled with very limited options with prior toxicity to amiodarone, LVEF 20%, creatinine 2.5 mg/dL, systolic blood pressure in the 90's. Risks of cardioversion excessive. Recommendations: 1. Continue metoprolol. Do not hold unless SBP less than 90 mmHg. 2. IV digoxin today 3. Continue anticoagulation with Eliquis, and clopidogrel. 4. Continue furosemide as prescribed for now. 5. Holding amlodipine and isosorbide 6. Suspect patient will ultimately require referral for AVJ ablation, ? device upgrade 03/02/2024 Patient clinically improved today but still remains in atrial fibrillation with elevated ventricular rates. Volume status improved. Will continue oral furosemide as ordered Blood pressure much improved. No dizziness or lightheadedness and patient mentating well We will continue to hold amlodipine and Increase metoprolol succinate with additional dose of digoxin for rate control this evening Discussed if unable to control heart rates with medications would consider AV junction ablation I spent a total of 30 minutes on the date of service in preparation, delivery, and documentation of the care provided to this patient excluding any time spent in the performance of separately billed services. Admission and Anticipated Discharge Date Admission Date: February 29, 2024 Subjective Patient was seen and examined, chart, medications, telemetry reviewed. Patient sitting out of bed in chair this morning feels much better than prior day no nausea. Ate and drank well. No dizziness or lightheadedness Still remains in atrial fibrillation with relatively elevated ventricular sponsor rates rare ventricular paced Review of Systems Review of Systems: All systems reviewed & are unremarkable except as noted in Subjective Physical Exam Physical Exam: General: Alert to person and place. NAD. Laying on her right side. HENT: Normocephalic. Atraumatic. Eyes: PER. Conjunctiva pink, sclera clear. Neck: No JVD. Heart: Irregularly irregular at 110 bpm. Soft systolic murmur. Lungs: Clear to bases without rhonchi or wheeze Abdomen: +BS. Soft. Nontender. No masses or organomegaly. Extremities: No clubbing, cyanosis, or edema. Neuro: Answers questions appropriately denying any acute focal complaints Pulses: Posterior tibial=1/4. Results & Data Vital Signs (Past 12 Hours) Vital Signs Temp Pulse Pulse Resp BP Pulse Ox O2 Del Method 03/02/24 07:37 36.5 C 113 H 18 127/82 95 Nasal Cannula 03/02/24 03:25 36.4 C L 107 H 18 116/72 Nasal Cannula 03/01/24 22:37 36.4 C L 117 H 20 110/74 95 Nasal Cannula 03/01/24 22:03 119 H O2 Flow Rate 03/02/24 07:37 2 03/02/24 03:25 03/01/24 22:37 2 03/01/24 22:03 Laboratory Results Laboratory Results - last 24 hr 03/01/24 03/01/24 03/01/24 11:23 16:13 20:41 WBC RBC Hgb Hct MCV MCH MCHC RDW Std Deviation RDW Coeff of Etta Plt Count MPV Immature Gran % (Auto) Neut % (Auto) Lymph % (Auto) [place] % (Auto) Eos % (Auto) Baso % (Auto) Neut # (Auto) Lymph # (Auto) [place] # (Auto) Eos # (Auto) Baso # (Auto) Immature Gran # (Auto) Absolute Nucleated RBC Nucleated RBC % (auto) Sodium Potassium Chloride Carbon Dioxide Anion Gap BUN Creatinine Est Cr Clr Drug Dosing Est GFR ( Amer) Est GFR (Non-Af Amer) BUN/Creatinine Ratio Glucose POC Glucose 187 H 155 H 117 H Calcium 03/02/24 03/02/24 07:02 07:07 WBC 12.38 H RBC 3.45 L Hgb 11.2 L Hct 34.9 L MCV 101.2 H MCH 32.5 MCHC 32.1 RDW Std Deviation 56.7 H RDW Coeff of Etta 15.6 H Plt Count 294 MPV 11.1 Immature Gran % (Auto) 0.6 Neut % (Auto) 75.2 Lymph % (Auto) 15.3 Motley % (Auto) 8.2 Eos % (Auto) 0.3 Baso % (Auto) 0.4 Neut # (Auto) 9.32 H Lymph # (Auto) 1.89 Motley # (Auto) 1.01 H Eos # (Auto) 0.04 Baso # (Auto) 0.05 Immature Gran # (Auto) 0.07 Absolute Nucleated RBC 0.02 Nucleated RBC % (auto) 0.2 Sodium 141 Potassium 4.1 Chloride 104 Carbon Dioxide 22 Anion Gap 15 H BUN 52 H Creatinine 2.75 H Est Cr Clr Drug Dosing 15.7 Est GFR ( Amer) 18.4 Est GFR (Non-Af Amer) 15.9 BUN/Creatinine Ratio 18.9 Glucose 112 H POC Glucose 116 H Calcium 9.3
[2024-03-02] MEDS: METOPROLOL SUCC 25MG EXT REL TAB PO ONE (11:01)
--- NOTE | 2024-03-02 11:44 | Hospitalist Progress Note ---
Date of Service March 02, 2024 Assessment & Plan (1) Dyspnea: (2) Atrial fibrillation with rapid ventricular response: (3) Acute on chronic HFrEF (heart failure with reduced ejection fraction): (4) CKD (chronic kidney disease), stage IV: (5) Tachycardia-bradycardia syndrome: (6) History of right MCA stroke: (7) Type 2 diabetes mellitus: (8) HTN (hypertension): Plan This is a 78yo F with a PMH of nonischemic cardiomyopathy, EF 20-25% on echo on 05/14, tachybradycardia syndrome s/p pacemaker, paroxysmal atrial fibrillation on Eliquis, CKD IV, prediabetes, HLD, anxiety, history of CVA, dementia and other medical problems listed below presented with worsening SOB over the past few days and was found to have A fib with RVR and decompensated CHF. A fib with RVR EKG on presentation shows atrial fibrillation with RVR of 137 bpm Of note, amiodarone was discontinued in 01/12 due to concerns for amiodarone toxicity Initially started on Cardizem in the ED; stopped on arrival to the floors Dose of metoprolol being titrated up by cardiology; patient also on digoxin Patient may require AV junction ablation if she continues to have difficulty controlling ventricular rate Continue Lasix 20 mg twice daily. Imdur on hold Telemonitoring Acute decompensated HFrEF Non-ischemic cardiomyopathy Most recent 2D echo LV severely dilated, EF 20-24%, with EF of 20%, severe diffuse left ventricular hypokinesis, diastolic function is severely abnormal (grade III). BNP 1377 CXR with cardiomegaly and cardiac pacemaker and evidence of congestive failure. Bilateral airspace opacities likely represent pulmonary edema. Plan to continue home lasix dose 20mg PO BID Strict I&Os/daily weights Cat bite Occurred on 02/26,Currently on Augmentin. Wound healing well. Continue for total of 5 days CKD IV Creatinine slightly up trended to 2.75 Continue to monitor closely Tachybrady syndrome S/p pacemaker placement History of MCA stroke Continue plavix, statin DM II A1c 6.4 in 10/14, Diet controlled SSI while in-patient BSG AC HS HTN Continue metoprolol succinate History of right MCA stroke Continue Plavix, Eliquis, atorvastatin DVT Ppx: Eliquis Code status: DNR PCP: [facility] Dispo: Admitted to PCU Discussed plan of care with patient's sister at bedside. Answered questions/queries Time spent evaluating patient, direct bedside care, chart review, placing orders, interpretation of diagnostic studies, discussion with consultants, patient, and family members, as well as other required patient management activities is 50 minutes Please note the above document was generated using voice recognition software. It may contain grammatical, syntax or spelling errors. Any formal questions or concerns about the content, text or information contained within the body of this dictation should be directly addressed to the provider for clarification Admission and Anticipated Discharge Date Admission Date: February 29, 2024 Subjective Patient seen and examined at bedside. She is sitting up on the chair at the side of bed; not in distress. She denies any nausea today Telemetry shows atrial fibrillation with ventricular [id number] Review of Systems Review of Systems: All systems reviewed & are unremarkable except as noted in Subjective Physical Exam Physical Exam: Constitutional: WD/WN, vitals as above, NAD, sitting up in bed, pleasant, conversing easily Respiratory: Occasional crackles in bilateral lower lung field Cardiovascular: Irregular, no murmur, no edema Vessels: no JVD or carotid bruit Chest: normal inspection of chest Abdomen: normal bowel sounds, soft, nontender, no hepatosplenomegaly Musculoskeletal: no cyanosis or clubbing, extremities motor strength 5/5 Skin: no rashes, warm and dry normal turgor Neurologic: PERRL, EOMI, accommodation nl, no face palsy, no dysarthria CN's II- XI intact bilaterally and moves all extremities Psychiatric: A+Ox3, euthymic affect Results & Data Results & Data Vital Signs (Past 12 Hours) Vital Signs Temp Pulse Resp BP Pulse Ox O2 Del Method O2 Flow Rate 03/02/24 11:17 36.4 C L 108 H 16 102/63 95 Room Air 03/02/24 07:37 36.5 C 113 H 18 127/82 95 Nasal Cannula 2 03/02/24 03:25 36.4 C L 107 H 18 116/72 Nasal Cannula (7) Type 2 diabetes mellitus Chronic kidney disease stage: stage 3 (moderate) Diabetes mellitus complication detail: with chronic kidney disease Diabetes mellitus complication status: with kidney complications Diabetes mellitus joint terminal attack controller insulin use: without joint terminal attack controller use Qualified Code(s): 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
[2024-03-02 16:16] LABS: Appearance Urine Cloudy (Clear); Bacteria Urine Automated None Seen (None Seen); Bilirubin Urine Negative (Negative); Blood Urine Negative (Negative); Color Urine Yellow; Glucose Urine UA Negative (Negative); Ketones Urine Trace (Negative); Leukocyte Esterase Urine Negative (Negative); Nitrite Urine Negative (Negative); Protein Urine Negative (Negative); RBC Urine Automated 0-2 /hpf (0-2); Specific Gravity Urine 1.018 (1.000-1.030); Urobilinogen Urine Negative (Negative); WBC Urine Automated 0-5 /hpf (0-5)
[2024-03-02] MEDS: DIGOXIN 0.25 MG TAB PO ONE (17:38)
[2024-03-02] MEDS: METOPROLOL SUCC 50MG EXT REL TAB PO SCH (20:42)
[2024-03-03 07:34] LABS: Basophils # (auto) 0.05 K/uL (0.00-0.20); Basophils % (auto) 0.6 %; Eosinophils # (auto) 0.18 K/uL (0.00-0.50); Eosinophils % (auto) 2.1 %; Hematocrit (blood only) 34.6 % (37.0-47.0); Hemoglobin 10.8 g/dl (12.0-16.0); Immature Granulocytes # (auto) 0.04 K/uL (0.01-0.20); Immature Granulocytes % (auto) 0.5 %; Lymphocytes # (auto) 1.91 K/uL (1.20-3.40); Lymphocytes % (auto) 22.2 %; Mean Corpuscular Hemoglobin 32.1 pg (25.0-34.0); Mean Corpuscular Hgb Conc 31.2 g/dL (32.0-36.0); Mean Platelet Volume 10.9 fL (9.4-12.4); Monocytes # (auto) 0.98 K/uL (0.11-0.59); Monocytes % (auto) 11.4 %; Neutrophils # (auto) 5.46 K/uL (1.40-6.50); Neutrophils % (auto) 63.2 %; Platelet Count 248 K/uL (130-400); RDW Coefficient of Variation 15.7 % (11.5-14.5); RDW Standard Deviation 58.8 fL (36.4-46.3); Red Blood Count 3.36 M/uL (4.20-5.40); White Blood Count 8.62 K/ul (4.8-10.8)
[2024-03-03 07:54] LABS: Potassium 3.8 mmol/L (3.5-5.1)
[2024-03-03 08:00] LABS: BUN Creatinine Ratio 21.9 (10-20); Creatinine Clr Calc Pharmacy 17.5 ml/min; Est GFR (African American) 20.9 ml/min; Est GFR (Non-African American) 18.1 ml/min
--- NOTE | 2024-03-03 10:11 | Cardiology Progress Note ---
Date of Service March 03, 2024 Assessment & Plan (1) Atrial fibrillation with rapid ventricular response: (2) Dyspnea: (3) Pulmonary edema: (4) Acute on chronic HFrEF (heart failure with reduced ejection fraction): (5) Nonischemic cardiomyopathy: (6) Cardiac pacemaker: Plan Complex 78-year-old female with severe nonischemic cardiomyopathy, admitted with recurrent symptomatic atrial fibrillation with a rapid ventricular response. Onset of atrial fibrillation 02/23/2024 via device interrogation. Amiodarone previously discontinued in December 2022 due to concerns for pulmonary toxicity. Patient chronically prescribed reduced dose Eliquis anticoagulation. Volume status appears compensated at this time. Heart rates remain uncontrolled with very limited options with prior toxicity to amiodarone, LVEF 20%, creatinine 2.5 mg/dL, systolic blood pressure in the 90's. Risks of cardioversion excessive. Recommendations: 1. Continue metoprolol. Do not hold unless SBP less than 90 mmHg. 2. IV digoxin today 3. Continue anticoagulation with Eliquis, and clopidogrel. 4. Continue furosemide as prescribed for now. 5. Holding amlodipine and isosorbide 6. Suspect patient will ultimately require referral for AVJ ablation, ? device upgrade 03/02/2024 Patient clinically improved today but still remains in atrial fibrillation with elevated ventricular rates. Volume status improved. Will continue oral furosemide as ordered Blood pressure much improved. No dizziness or lightheadedness and patient mentating well We will continue to hold amlodipine and Increase metoprolol succinate with additional dose of digoxin for rate control this evening Discussed if unable to control heart rates with medications would consider AV junction ablation 03/03/2024 Heart rate trending towards better control. Tolerating hemodynamically increased dose of metoprolol succinate to 50 mg twice per day. Will continue digoxin at 0.125 mg 3 days/week given renal dysfunction Pacemaker function appropriate with intermittent pacing when heart rate slowed No signs of volume overload or edema Maintain telemetry Patient would consider AV junction ablation if indicated but currently appears to be tolerating medication changes I spent a total of 35 minutes on the date of service in preparation, delivery, and documentation of the care provided to this patient excluding any time spent in the performance of separately billed services. Admission and Anticipated Discharge Date Admission Date: February 29, 2024 Subjective Patient seen and examined, chart, medications telemetry reviewed. Heart rate trending towards better control. Patient sitting out of bed in chair without complaints no edema. No dizziness or lightheadedness eating breakfast without nausea Hemoglobin and renal function stable Physical Exam Physical Exam: General: Alert to person and place. NAD. Laying on her right side. HENT: Normocephalic. Atraumatic. Eyes: PER. Conjunctiva pink, sclera clear. Neck: No JVD. Heart: Irregularly irregular at 80 bpm. Soft systolic murmur. Lungs: Clear to bases without rhonchi or wheeze Abdomen: +BS. Soft. Nontender. No masses or organomegaly. Extremities: No clubbing, cyanosis, or edema. Neuro: Answers questions appropriately denying any acute focal complaints Pulses: Posterior tibial=1/4. Results & Data Vital Signs (Past 12 Hours) Vital Signs Temp Pulse Resp BP Pulse Ox O2 Del Method O2 Flow Rate 03/03/24 08:12 36.5 C 72 16 108/65 96 Room Air 03/03/24 02:23 36.5 C 81 16 111/75 91 Nasal Cannula 2 03/02/24 22:36 36.5 C 68 18 101/70 93 Room Air Laboratory Results Laboratory Results - last 24 hr 02/29/24 03/02/24 03/02/24 15:51 10:50 15:50 WBC RBC Hgb Hct MCV MCH MCHC RDW Std Deviation RDW Coeff of Etta Plt Count MPV Immature Gran % (Auto) Neut % (Auto) Lymph % (Auto) Clark % (Auto) Eos % (Auto) Baso % (Auto) Neut # (Auto) Lymph # (Auto) Clark # (Auto) Eos # (Auto) Baso # (Auto) Immature Gran # (Auto) Sodium Potassium Chloride Carbon Dioxide Anion Gap BUN Creatinine Est Cr Clr Drug Dosing Est GFR ( Amer) Est GFR (Non-Af Amer) BUN/Creatinine Ratio Glucose POC Glucose 132 H Calcium Urine Color Yellow Urine Appearance Cloudy A Urine pH 5.0 Ur Specific [place] 1.018 Urine Protein Negative Urine Glucose (UA) Negative Urine Ketones Trace H Urine Blood Negative Urine Nitrite Negative Urine Bilirubin Negative Urine Urobilinogen Negative Ur Leukocyte Esterase Negative Urine WBC (Auto) 0-5 Urine RBC (Auto) 0-2 U Hyaline Cast (Auto) 3-5 H U Epithel Cells (Auto) 11-20 H Urine Bacteria (Auto) None Seen Hepatitis C Ab (EIA) NON-REACTIVE 03/02/24 03/02/24 03/03/24 16:08 20:15 06:33 WBC 8.62 RBC 3.36 L Hgb 10.8 L Hct 34.6 L MCV 103.0 H MCH 32.1 MCHC 31.2 L RDW Std Deviation 58.8 H RDW Coeff of Etta 15.7 H Plt Count 248 MPV 10.9 Immature Gran % (Auto) 0.5 Neut % (Auto) 63.2 Lymph % (Auto) 22.2 Clark % (Auto) 11.4 Eos % (Auto) 2.1 Baso % (Auto) 0.6 Neut # (Auto) 5.46 Lymph # (Auto) 1.91 Clark # (Auto) 0.98 H Eos # (Auto) 0.18 Baso # (Auto) 0.05 Immature Gran # (Auto) 0.04 Sodium 142 Potassium 3.8 Chloride 107 Carbon Dioxide 24 Anion Gap 11 BUN 54 H Creatinine 2.47 H Est Cr Clr Drug Dosing 17.5 Est GFR ( Amer) 20.9 Est GFR (Non-Af Amer) 18.1 BUN/Creatinine Ratio 21.9 H Glucose 95 POC Glucose 122 H 109 H Calcium 9.0 Urine Color Urine Appearance Urine pH Ur Specific [place] Urine Protein Urine Glucose (UA) Urine Ketones Urine Blood Urine Nitrite Urine Bilirubin Urine Urobilinogen Ur Leukocyte Esterase Urine WBC (Auto) Urine RBC (Auto) U Hyaline Cast (Auto) U Epithel Cells (Auto) Urine Bacteria (Auto) Hepatitis C Ab (EIA) 03/03/24 07:18 WBC RBC Hgb Hct MCV MCH MCHC RDW Std Deviation RDW Coeff of Etta Plt Count MPV Immature Gran % (Auto) Neut % (Auto) Lymph % (Auto) Clark % (Auto) Eos % (Auto) Baso % (Auto) Neut # (Auto) Lymph # (Auto) Clark # (Auto) Eos # (Auto) Baso # (Auto) Immature Gran # (Auto) Sodium Potassium Chloride Carbon Dioxide Anion Gap BUN Creatinine Est Cr Clr Drug Dosing Est GFR ( Amer) Est GFR (Non-Af Amer) BUN/Creatinine Ratio Glucose POC Glucose 104 H Calcium Urine Color Urine Appearance Urine pH Ur Specific [place] Urine Protein Urine Glucose (UA) Urine Ketones Urine Blood Urine Nitrite Urine Bilirubin Urine Urobilinogen Ur Leukocyte Esterase Urine WBC (Auto) Urine RBC (Auto) U Hyaline Cast (Auto) U Epithel Cells (Auto) Urine Bacteria (Auto) Hepatitis C Ab (EIA)
--- NOTE | 2024-03-03 10:51 | Hospitalist Progress Note ---
Date of Service March 03, 2024 Assessment & Plan (1) Dyspnea: (2) Atrial fibrillation with rapid ventricular response: (3) Acute on chronic HFrEF (heart failure with reduced ejection fraction): (4) CKD (chronic kidney disease), stage IV: (5) Tachycardia-bradycardia syndrome: (6) History of right MCA stroke: (7) Type 2 diabetes mellitus: (8) HTN (hypertension): Plan This is a 78yo F with a PMH of nonischemic cardiomyopathy, EF 20-25% on echo on 05/14, tachybradycardia syndrome s/p pacemaker, paroxysmal atrial fibrillation on Eliquis, CKD IV, prediabetes, HLD, anxiety, history of CVA, dementia and other medical problems listed below presented with worsening SOB over the past few days and was found to have A fib with RVR and decompensated CHF. A fib with RVR EKG on presentation shows atrial fibrillation with RVR of 137 bpm Of note, amiodarone was discontinued in 01/12 due to concerns for amiodarone toxicity Initially started on Cardizem in the ED; stopped on arrival to the floors Dose of metoprolol being titrated up to 50mg twice daily by cardiology; patient also on digoxin 3 times a week. Patient may require AV junction ablation if she continues to have difficulty controlling ventricular rate Continue Lasix 20 mg twice daily. Imdur on hold Telemonitoring Acute decompensated HFrEF Non-ischemic cardiomyopathy Most recent 2D echo LV severely dilated, EF 20-24%, with EF of 20%, severe diffuse left ventricular hypokinesis, diastolic function is severely abnormal (grade III). BNP 1377 CXR with cardiomegaly and cardiac pacemaker and evidence of congestive failure. Bilateral airspace opacities likely represent pulmonary edema. Plan to continue home lasix dose 20mg PO BID Strict I&Os/daily weights Cat bite Occurred on 02/26,Currently on Augmentin. Wound healing well. Continue for total of 5 days CKD IV Creatinine similar to baseline. Continue to monitor closely Tachybrady syndrome S/p pacemaker placement History of MCA stroke Continue plavix, statin DM II A1c 6.4 in 10/14, Diet controlled SSI while in-patient BSG AC HS HTN Continue metoprolol succinate History of right MCA stroke Continue Plavix, Eliquis, atorvastatin DVT Ppx: Eliquis Code status: DNR PCP: [facility] Dispo: Admitted to PCU Discussed plan of care with patient's sister at bedside on March 02, 2024. Answered questions/queries Time spent evaluating patient, direct bedside care, chart review, placing orders, interpretation of diagnostic studies, discussion with consultants, patient, and family members, as well as other required patient management activities is 50 minutes Please note the above document was generated using voice recognition software. It may contain grammatical, syntax or spelling errors. Any formal questions or concerns about the content, text or information contained within the body of this dictation should be directly addressed to the provider for clarification Admission and Anticipated Discharge Date Admission Date: February 29, 2024 Subjective Patient seen and examined at bedside. She is sitting up at the side of the bed; not in distress. She denies any pain or discomfort or shortness of breath No events overnight Telemetry shows slight improvement in ventricular rate in 90s Review of Systems Review of Systems: All systems reviewed & are unremarkable except as noted in Subjective Physical Exam Physical Exam: Constitutional: WD/WN, vitals as above, NAD, sitting up in bed, pleasant, conversing easily Respiratory: Occasional crackles in bilateral lower lung field Cardiovascular: Irregular, no murmur, no edema Vessels: no JVD or carotid bruit Chest: normal inspection of chest Abdomen: normal bowel sounds, soft, nontender, no hepatosplenomegaly Musculoskeletal: no cyanosis or clubbing, extremities motor strength 5/5 Skin: no rashes, warm and dry normal turgor Neurologic: PERRL, EOMI, accommodation nl, no face palsy, no dysarthria CN's II- XI intact bilaterally and moves all extremities Psychiatric: A+Ox3, euthymic affect Results & Data Results & Data Vital Signs (Past 12 Hours) Vital Signs Temp Pulse Resp BP Pulse Ox O2 Del Method O2 Flow Rate 03/03/24 08:12 36.5 C 72 16 108/65 96 Room Air 03/03/24 02:23 36.5 C 81 16 111/75 91 Nasal Cannula 2 (7) Type 2 diabetes mellitus Diabetes mellitus long term care pharmacist insulin use: without long term care pharmacist use Diabetes mellitus complication status: with kidney complications Diabetes mellitus complication detail: with chronic kidney disease Chronic kidney disease stage: stage 3 (moderate) Qualified Code(s): 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
[2024-03-04 07:24] LABS: Basophils # (auto) 0.06 K/uL (0.00-0.20); Basophils % (auto) 0.6 %; Eosinophils # (auto) 0.24 K/uL (0.00-0.50); Eosinophils % (auto) 2.5 %; Hematocrit (blood only) 34.5 % (37.0-47.0); Immature Granulocytes # (auto) 0.04 K/uL (0.01-0.20); Immature Granulocytes % (auto) 0.4 %; Mean Corpuscular Hemoglobin 32.5 pg (25.0-34.0); Mean Corpuscular Hgb Conc 31.9 g/dL (32.0-36.0); Mean Corpuscular Volume 102.1 fL (80.0-100.0); Mean Platelet Volume 10.7 fL (9.4-12.4); Monocytes # (auto) 1.27 K/uL (0.11-0.59); Monocytes % (auto) 13.2 %; Neutrophils # (auto) 5.34 K/uL (1.40-6.50); Neutrophils % (auto) 55.3 %; Nucleated RBC # (auto) 0.02 K/uL (0.00-0.12); Nucleated RBC % (auto) 0.2 %; Platelet Count 283 K/uL (130-400); RDW Coefficient of Variation 15.6 % (11.5-14.5); RDW Standard Deviation 58.2 fL (36.4-46.3); Red Blood Count 3.38 M/uL (4.20-5.40); White Blood Count 9.65 K/ul (4.8-10.8)
--- NOTE | 2024-03-04 08:00 | Cardiology Progress Note ---
Date of Service March 04, 2024 Assessment & Plan (1) Atrial fibrillation with rapid ventricular response: (2) Cardiac pacemaker: (3) Acute on chronic HFrEF (heart failure with reduced ejection fraction): (4) Nonischemic cardiomyopathy: Plan IMPRESSION: Complex 78-year-old female with severe nonischemic cardiomyopathy, admitted with recurrent symptomatic atrial fibrillation with a rapid ventricular response. Onset of atrial fibrillation 02/23/2024 via device interrogation. Amiodarone previously discontinued in December 2022 due to concerns for pulmonary toxicity. Patient chronically prescribed reduced dose Eliquis anticoagulation. Volume status appears compensated at this time. Heart rates remain uncontrolled with very limited options with prior toxicity to amiodarone, LVEF 20%, creatinine 2.5 mg/dL, systolic blood pressure in the 90's. Risks of cardioversion excessive. IMPRESSION: -Paroxysmal atrial fibrillation with RVR -Tachybradycardia syndrome status post permanent pacemaker Symptomatic atrial fibrillation with a rapid ventricular response-- currently asymptomatic Prior use of amiodarone discontinued in December 2022 due to concern for pulmonary toxicity. Tachy-Bhavik Syndrome status post permanent pacemaker implantation on August 14, 2020-- Device reprogrammed to DDD in August 2022. Generator: [employer] [place] XT DR DRAGAN Bajwa [id number], serial number [id number]. Right atrial lead Medtronic 5076-52 cm, serial number [id number]. Right ventricular lead, Medtronic 3830-69 cm, serial number [id number]. 1. Heart rates trending towards better control, continue increased dose of metoprolol succinate 50 mg twice daily and oral digoxin 0.125 mg Monday given renal dysfunction 2. Pacemaker function appropriate with intermittent pacing when heart rate slowed. 3. Maintain telemetry 4. Patient would consider AV junction ablation/device upgrade if indicated. Currently appears to be tolerating medication changes, but rates remain uncontrolled. Keep NPO- plans to discuss with EP regarding procedure this admission. -Severe nonischemic cardiomyopathy Nonischemic cardiomyopathy with left ventricular ejection fraction 20% (does not have an ICD) NYHA Class 3 No signs of volume overload or edema 1. Continue furosemide as prescribed for now. 2. Holding amlodipine and isosorbide Case discussed with Dr. Villalpando. Further recommendations pending assessment. I spent a total of 40 minutes on the date of service in preparation, delivery, and documentation of the care provided to the patient excluding any time spent in the performance of separately billed services. SARITHA Capone Department of Cardiology, [facility] This chart was completed in part utilizing Speech Voice Recognition Software. Grammatical errors, random word insertions, pronoun errors, and incomplete sentences are an occasional consequence of this system due to software limitations, ambient noise, and hardware issues. Any formal questions or concerns about the content, text, or information contained within the body of this dictation should be directly addressed to the provider for clarification. Admission and Anticipated Discharge Date Admission Date: February 29, 2024 Supervising Physician Co-Signing Physician Notes Attending attestation: Case reviewed with the advanced practitioner. I have personally performed a history and physical examination on the patient. I have reviewed the advanced practitioner's documentation on the date of service referenced in note, and I agree with, and take responsibility for the plan of care. Subjective: Pt comfortable. Exam: device pocket clean , dry and intact Impression/ Plan: -Continue metoprolol and digoxin. Advance diet. No procedure planned today. Await response to medications. I spent a total of 20 minutes coordinating, documenting, and providing care for this patient excluding time spent in the performance of separately billed services or time spent by another provider. Dimitri Villalpando, DO Subjective Complex 78-year-old female with severe nonischemic cardiomyopathy, admitted with recurrent symptomatic atrial fibrillation with a rapid ventricular response. Onset of atrial fibrillation 02/23/2024 via device interrogation. Amiodarone previously discontinued in December, due to concerns for pulmonary toxicity. Patient chronically prescribed reduced dose Eliquis anticoagulation. 02/29/2024: Diltiazem discontinued Started on metoprolol tartrate 25 mg every 6 hours plus IV Lopressor as needed . Amlodipine and Imdur held for further titration of beta-rizwan. Lasix continued 03/01/2024: Metoprolol tartrate continued IV digoxin started. 03/02/2024: Metoprolol tartrate discontinued in favor of metoprolol succinate 50 mg twice daily Digoxin continued with an additional dose that evening. 03/03/2024: Metoprolol succinate 50 mg twice daily continue Digoxin transition to oral, 0.125 mg Monday only (due to renal dysfunction) 03/04/2024: Upon entrance into the room patient resting in bed without concern. Currently NPO. Volume status appears well compensated. No chest pain, shortness of breath, palpitations, dizziness, syncope or near syncope. No orthopnea, PND, or increased lower extremity edema. No fever, chills, cough, hematochezia, melena, or hemoptysis. Telemetry: AFIB 90-110s Labs: stable. Review of Systems Review of Systems: All systems reviewed & are unremarkable except as noted in HPI & below Physical Exam Physical Exam: General: Alert to person and place. NAD. Laying on her back HENT: Normocephalic. Atraumatic. Eyes: PER. Conjunctiva pink, sclera clear. Neck: No JVD. Heart: Irregularly irregular at 90 bpm. Soft systolic murmur. Lungs: Clear to bases without rhonchi or wheeze Abdomen: +BS. Soft. Nontender. No masses or organomegaly. Extremities: No clubbing, cyanosis, or edema. Neuro: Answers questions appropriately denying any acute focal complaints Pulses: Posterior tibial=1/4. Results & Data Vital Signs (Past 12 Hours) Vital Signs Temp Pulse Pulse Resp BP Pulse Ox O2 Del Method 03/04/24 07:28 36.3 C L 85 18 115/80 97 Room Air 03/04/24 07:08 98 H 03/04/24 02:43 36.4 C L 90 22 110/71 95 Room Air 03/03/24 22:52 36.5 C 71 16 128/68 94 Room Air 03/03/24 21:57 92 H 03/03/24 19:51 36.4 C L 108 H 18 102/57 L 93 Room Air Laboratory Results CBC 03/04/24 Range/Units 06:38 WBC 9.65 (4.8-10.8) K/ul RBC 3.38 L (4.20-5.40) M/uL Hgb 11.0 L (12.0-16.0) g/dl Hct 34.5 L (37.0-47.0) % Plt Count 283 (130-400) K/uL Neut # (Auto) 5.34 (1.40-6.50) K/uL Lymph # (Auto) 2.70 (1.20-3.40) K/uL Newton # (Auto) 1.27 H (0.11-0.59) K/uL Eos # (Auto) 0.24 (0.00-0.50) K/uL Baso # (Auto) 0.06 (0.00-0.20) K/uL Comprehensive Metabolic Panel 03/04/24 Range/Units 06:38 Sodium 143 (136-145) mmol/L Potassium 3.8 (3.5-5.1) mmol/L Chloride 107 (98-107) mmol/L Carbon Dioxide 25 (21-32) mmol/L BUN 47 H (6-23) mg/dl Creatinine 2.31 H (0.6-1.2) mg/dl Glucose 126 H (70-99(Fasting)) mg/dl Calcium 9.4 (8.6-10.3) mg/dl Intake and Output 03/03/24 03/04/24 03/04/24 22:59 06:59 14:59 Intake Total 300 / 300 Output Total 1 / 2 1 / 2 Balance 299 / 298 -1 / 298 Intake: Oral 300 / 300 Output: # Bowel Movements 1 / 2 1 / 2 Other: Other Intake Source Sips # Unmeasured Voids 2 1 Weight 75.3 kg Weight Measurement Method Standing Scale Patient Weight 03/05/24 06:59 Weight 75.3 kg
[2024-03-04 08:24] LABS: BUN Creatinine Ratio 20.3 (10-20); Calcium 9.4 mg/dl (8.6-10.3); Creatinine Clr Calc Pharmacy 18.6 ml/min; Est GFR (African American) 22.7 ml/min; Est GFR (Non-African American) 19.6 ml/min; Potassium 3.8 mmol/L (3.5-5.1)
[2024-03-04] MEDS: LEVOTHYROXINE SODIUM 88 MCG TABLET PO ONE (11:36)
--- NOTE | 2024-03-04 13:49 | Hospitalist Progress Note ---
Date of Service March 04, 2024 Assessment & Plan (1) Dyspnea: (2) Atrial fibrillation with rapid ventricular response: (3) Acute on chronic HFrEF (heart failure with reduced ejection fraction): (4) CKD (chronic kidney disease), stage IV: (5) Tachycardia-bradycardia syndrome: (6) History of right MCA stroke: (7) Type 2 diabetes mellitus: (8) HTN (hypertension): Plan This is a 78yo F with a PMH of nonischemic cardiomyopathy, EF 20-25% on echo on 05/14, tachybradycardia syndrome s/p pacemaker, paroxysmal atrial fibrillation on Eliquis, CKD IV, prediabetes, HLD, anxiety, history of CVA, dementia and other medical problems listed below presented with worsening SOB over the past few days and was found to have A fib with RVR and decompensated CHF. A fib with RVR EKG on presentation shows atrial fibrillation with RVR of 137 bpm Of note, amiodarone was discontinued in 01/12 due to concerns for amiodarone toxicity Initially started on Cardizem in the ED; stopped on arrival to the floors Dose of metoprolol being titrated up to 50mg twice daily by cardiology; patient also on digoxin 3 times a week. Patient may require AV junction ablation if she continues to have difficulty controlling ventricular rate Continue Lasix 20 mg twice daily. Imdur on hold Telemonitoring Acute decompensated HFrEF Non-ischemic cardiomyopathy Most recent 2D echo LV severely dilated, EF 20-24%, with EF of 20%, severe diffuse left ventricular hypokinesis, diastolic function is severely abnormal (grade III). BNP 1377 CXR with cardiomegaly and cardiac pacemaker and evidence of congestive failure. Bilateral airspace opacities likely represent pulmonary edema. Plan to continue home lasix dose 20mg PO BID Strict I&Os/daily weights Cat bite Occurred on 02/26,Currently on Augmentin. Wound healing well. Continue for total of 5 days CKD IV Creatinine similar to baseline. Continue to monitor closely Tachybrady syndrome S/p pacemaker placement History of MCA stroke Continue plavix, statin DM II A1c 6.4 in 10/14, Diet controlled SSI while in-patient BSG AC HS HTN Continue metoprolol succinate History of right MCA stroke Continue Plavix, Eliquis, atorvastatin DVT Ppx: Eliquis Code status: DNR PCP: [facility] Dispo: Admitted to PCU Discussed plan of care with patient's sister at bedside on March 02, 2024. Answered questions/queries Time spent evaluating patient, direct bedside care, chart review, placing orders, interpretation of diagnostic studies, discussion with consultants, patient, and family members, as well as other required patient management activities is 50 minutes Please note the above document was generated using voice recognition software. It may contain grammatical, syntax or spelling errors. Any formal questions or concerns about the content, text or information contained within the body of this dictation should be directly addressed to the provider for clarification Admission and Anticipated Discharge Date Admission Date: February 29, 2024 Subjective Patient seen and examined at bedside. She is comfortable; not in distress. Telemetry shows atrial fibrillation with ventricular rate of 90s to 110s Review of Systems Review of Systems: All systems reviewed & are unremarkable except as noted in Subjective Physical Exam Physical Exam: Constitutional: WD/WN, vitals as above, NAD, sitting up in bed, pleasant, conversing easily Respiratory: Occasional crackles in bilateral lower lung field Cardiovascular: Irregular, no murmur, no edema Vessels: no JVD or carotid bruit Chest: normal inspection of chest Abdomen: normal bowel sounds, soft, nontender, no hepatosplenomegaly Musculoskeletal: no cyanosis or clubbing, extremities motor strength 5/5 Skin: no rashes, warm and dry normal turgor Neurologic: PERRL, EOMI, accommodation nl, no face palsy, no dysarthria CN's II- XI intact bilaterally and moves all extremities Psychiatric: A+Ox3, euthymic affect Results & Data Results & Data Vital Signs (Past 12 Hours) Vital Signs Temp Pulse Pulse Resp BP Pulse Ox O2 Del Method 03/04/24 11:20 36.3 C L 107 H 18 121/77 95 Room Air 03/04/24 07:28 36.3 C L 85 18 115/80 97 Room Air 03/04/24 07:08 98 H 03/04/24 02:43 36.4 C L 90 22 110/71 95 Room Air (7) Type 2 diabetes mellitus Diabetes mellitus penitentiary insulin use: without penitentiary use Diabetes mellitus complication status: with kidney complications Diabetes mellitus complication detail: with chronic kidney disease Chronic kidney disease stage: stage 3 (moderate) Qualified Code(s): 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
[2024-03-04] MEDS: DIGOXIN 0.125 MG TAB PO SCH (16:53)
[2024-03-05] MEDS: LEVOTHYROXINE SODIUM 88 MCG TABLET PO SCH (05:36)
--- NOTE | 2024-03-05 06:46 | Cardiology Progress Note ---
Date of Service March 05, 2024 Assessment & Plan (1) Atrial fibrillation with rapid ventricular response: (2) Cardiac pacemaker: (3) Acute on chronic HFrEF (heart failure with reduced ejection fraction): (4) Nonischemic cardiomyopathy: Plan IMPRESSION: Complex 78-year-old female with severe nonischemic cardiomyopathy, admitted with recurrent symptomatic atrial fibrillation with a rapid ventricular response. Onset of atrial fibrillation 02/23/2024 via device interrogation. Amiodarone previously discontinued in December 2022 due to concerns for pulmonary toxicity. Patient chronically prescribed reduced dose Eliquis anticoagulation. Volume status appears compensated at this time. Heart rates remain uncontrolled with very limited options with prior toxicity to amiodarone, LVEF 20%, creatinine 2.5 mg/dL, systolic blood pressure in the 90's. Risks of cardioversion excessive. IMPRESSION: -Paroxysmal atrial fibrillation with RVR -Tachybradycardia syndrome status post permanent pacemaker Symptomatic atrial fibrillation with a rapid ventricular response-- currently asymptomatic Prior use of amiodarone discontinued in December 2022 due to concern for pulmonary toxicity. Tachy-Bhavik Syndrome status post permanent pacemaker implantation on August 14, 2020-- Device reprogrammed to DDD in August 2022. Generator: [employer] Ruby XT DR DRAGAN Bajwa [id number], serial number [id number]. Right atrial lead Medtronic 5076-52 cm, serial number [id number]. Right ventricular lead, Medtronic 3830-69 cm, serial number [id number]. 1. Heart rates trending towards better control, continue increased dose of metoprolol succinate 50 mg twice daily and oral digoxin 0.125 mg Monday given renal dysfunction 2. Pacemaker function appropriate with intermittent pacing when heart rate slowed. 3. Maintain telemetry 4. Patient would consider AV junction ablation/device upgrade if indicated. Currently appears to be tolerating medication changes, but rates trending towards better Control. Plans to discuss with EP regarding procedure/AVN ablation this admission. -Severe nonischemic cardiomyopathy Nonischemic cardiomyopathy with left ventricular ejection fraction 20% (does not have an ICD) NYHA Class 3 No signs of volume overload or edema 1. Continue furosemide as prescribed for now. Case discussed with Dr. Villalpando. Further recommendations pending assessment. I spent a total of 30 minutes on the date of service in preparation, delivery, and documentation of the care provided to the patient excluding any time spent in the performance of separately billed services. SARITHA Capone Department of Cardiology, [facility] This chart was completed in part utilizing Speech Voice Recognition Software. Grammatical errors, random word insertions, pronoun errors, and incomplete sent ences are an occasional consequence of this system due to software limitations, ambient noise, and hardware issues. Any formal questions or concerns about the content, text, or information contained within the body of this dictation should be directly addressed to the provider for clarification. Admission and Anticipated Discharge Date Admission Date: February 29, 2024 Supervising Physician Co-Signing Physician Notes Attending attestation: Case reviewed with the advanced practitioner. I have personally performed a history and physical examination on the patient. I have reviewed the advanced practitioner's documentation on the date of service referenced in note, and I agree with, and take responsibility for the plan of care. Subjective: Pt comfortable. Exam: device pocket clean , dry and intact Impression/ Plan: -Continue metoprolol and digoxin. -increase metoprolol succinate from 50 g BID to TID. -DC Imdur, favoring beta rizwan. -PT, walk with assistance of walker. I spent a total of 20 minutes coordinating, documenting, and providing care for this patient excluding time spent in the performance of separately billed services or time spent by another provider. Dimitri Villalpando, Subjective Complex 78-year-old female with severe nonischemic cardiomyopathy, admitted with recurrent symptomatic atrial fibrillation with a rapid ventricular response. Onset of atrial fibrillation 02/23/2024 via device interrogation. Amiodarone previously discontinued in December, due to concerns for pulmonary toxicity. Patient chronically prescribed reduced dose Eliquis anticoagulation. 02/29/2024: Diltiazem discontinued Started on metoprolol tartrate 25 mg every 6 hours plus IV Lopressor as needed . Amlodipine and Imdur held for further titration of beta-rizwan. Lasix continued 03/01/2024: Metoprolol tartrate continued IV digoxin started. 03/02/2024: Metoprolol tartrate discontinued in favor of metoprolol succinate 50 mg twice daily Digoxin continued with an additional dose that evening. 03/03/2024: Metoprolol succinate 50 mg twice daily continue Digoxin transition to oral, 0.125 mg Monday only (due to renal dysfunction) 03/04/2024: Rates in A-fib 90s to 110s on metoprolol succinate 50 mg twice daily and digoxin 0.125 mg Monday03/05/2024: Upon entrance into the room patient resting in bed without concern. Heart rates leaning towards borderline control. Asymptomatic. Telemetry: AFIB 80-100s Volume status appears well compensated. No chest pain, shortness of breath, palpitations, dizziness, syncope or near syncope. No orthopnea, PND, or increased lower extremity edema. No fever, chills, cough, hematochezia, melena, or hemoptysis. Review of Systems Review of Systems: All systems reviewed & are unremarkable except as noted in HPI & below Physical Exam Physical Exam: General: Alert to person and place. NAD. Laying on her back HENT: Normocephalic. Atraumatic. Eyes: PER. Conjunctiva pink, sclera clear. Neck: No JVD. Heart: Irregularly irregular. Soft systolic murmur. Lungs: Clear to bases without rhonchi or wheeze Abdomen: +BS. Soft. Nontender. No masses or organomegaly. Extremities: No clubbing, cyanosis, or edema. Neuro: Answers questions appropriately denying any acute focal complaints Pulses: Posterior tibial=1/4. Results & Data Vital Signs (Past 12 Hours) Vital Signs Temp Pulse Pulse Resp BP Pulse Ox O2 Del Method 03/05/24 02:43 36.4 C L 88 16 100/59 L 90 Room Air 03/04/24 22:49 36.6 C 114 H 18 117/68 98 Room Air 03/04/24 22:02 103 H 03/04/24 20:45 Room Air 03/04/24 19:08 36.4 C L 117 H 18 129/87 94 Room Air Laboratory Results CBC 03/05/24 Range/Units 06:53 WBC 8.51 (4.8-10.8) K/ul RBC 3.51 L (4.20-5.40) M/uL Hgb 11.4 L (12.0-16.0) g/dl Hct 35.6 L (37.0-47.0) % Plt Count 278 (130-400) K/uL Neut # (Auto) 4.68 (1.40-6.50) K/uL Lymph # (Auto) 2.39 (1.20-3.40) K/uL [place] # (Auto) 1.16 H (0.11-0.59) K/uL Eos # (Auto) 0.21 (0.00-0.50) K/uL Baso # (Auto) 0.04 (0.00-0.20) K/uL Comprehensive Metabolic Panel 03/05/24 Range/Units 06:53 Sodium 143 (136-145) mmol/L Potassium 3.9 (3.5-5.1) mmol/L Chloride 107 (98-107) mmol/L Carbon Dioxide 27 (21-32) mmol/L BUN 41 H (6-23) mg/dl Creatinine 2.31 H (0.6-1.2) mg/dl Glucose 112 H (70-99(Fasting)) mg/dl Calcium 9.3 (8.6-10.3) mg/dl Intake and Output 03/04/24 03/05/24 03/05/24 22:59 06:59 14:59 Intake Total 200 / 540 100 / 540 Output Total Balance 199 / 539 100 / 539 Intake: Oral 200 / 540 100 / 540 Output: # Bowel Movements Other: # Unmeasured Voids 10 23 Weight 74.3 kg Weight Measurement Method Built in [facility]
[2024-03-05 07:09] LABS: Basophils # (auto) 0.04 K/uL (0.00-0.20); Basophils % (auto) 0.5 %; Eosinophils # (auto) 0.21 K/uL (0.00-0.50); Eosinophils % (auto) 2.5 %; Hematocrit (blood only) 35.6 % (37.0-47.0); Hemoglobin 11.4 g/dl (12.0-16.0); Immature Granulocytes # (auto) 0.03 K/uL (0.01-0.20); Immature Granulocytes % (auto) 0.4 %; Lymphocytes # (auto) 2.39 K/uL (1.20-3.40); Lymphocytes % (auto) 28.1 %; Mean Corpuscular Hemoglobin 32.5 pg (25.0-34.0); Mean Corpuscular Volume 101.4 fL (80.0-100.0); Mean Platelet Volume 10.3 fL (9.4-12.4); Monocytes # (auto) 1.16 K/uL (0.11-0.59); Monocytes % (auto) 13.6 %; Neutrophils # (auto) 4.68 K/uL (1.40-6.50); Neutrophils % (auto) 54.9 %; Nucleated RBC # (auto) 0.02 K/uL (0.00-0.12); Nucleated RBC % (auto) 0.2 %; Platelet Count 278 K/uL (130-400); RDW Coefficient of Variation 15.7 % (11.5-14.5); RDW Standard Deviation 57.9 fL (36.4-46.3); Red Blood Count 3.51 M/uL (4.20-5.40); White Blood Count 8.51 K/ul (4.8-10.8)
[2024-03-05 08:46] LABS: BUN Creatinine Ratio 17.7 (10-20); Calcium 9.3 mg/dl (8.6-10.3); Creatinine Clr Calc Pharmacy 18.5 ml/min; Est GFR (African American) 22.7 ml/min; Est GFR (Non-African American) 19.6 ml/min; Potassium 3.9 mmol/L (3.5-5.1)
--- NOTE | 2024-03-05 10:32 | XRay Report ---
TWO VIEW CHEST CLINICAL HISTORY: Follow-up pulmonary edema. FINDINGS: AP upright and lateral chest radiographs are compared to study dated 02/29/2024 and correlate d with chest CT dated 01/08/2023. A 2-lead cardiac pacemaker is unchanged in position. The heart is en larged noting atherosclerotic calcification of the thoracic aorta. There is mild pulmonary vascular c ongestion. This has modestly improved as compared to 02/29/2024. No airspace consolidation or pleural e ffusion is identified. There is no pneumothorax. The skeletal structures are osteopenic. The bony tho rax appears intact. Degenerative change is noted in the shoulders and spine. Cholecystectomy clips ar e seen in the right upper quadrant. IMPRESSION: 1. Cardiomegaly and cardiac pacemaker with mild pulmonary vascular congestion. This has modestly impr john as compared to 02/29/2024. 2. No airspace consolidation or pleural effusion is identified. ACT 112: Negative or not required by law. Electronically signed by: Jaspreet Long M.D. 03/05/2024 10:31 AM
--- NOTE | 2024-03-05 13:18 | Hospitalist Progress Note ---
Date of Service March 05, 2024 Assessment & Plan (1) Dyspnea: (2) Atrial fibrillation with rapid ventricular response: (3) Acute on chronic HFrEF (heart failure with reduced ejection fraction): (4) CKD (chronic kidney disease), stage IV: (5) Tachycardia-bradycardia syndrome: (6) History of right MCA stroke: (7) Type 2 diabetes mellitus: (8) HTN (hypertension): Plan This is a 78yo F with a PMH of nonischemic cardiomyopathy, EF 20-25% on echo on 05/14, tachybradycardia syndrome s/p pacemaker, paroxysmal atrial fibrillation on Eliquis, CKD IV, prediabetes, HLD, anxiety, history of CVA, dementia and other medical problems listed below presented with worsening SOB over the past few days and was found to have A fib with RVR and decompensated CHF. A fib with RVR EKG on presentation shows atrial fibrillation with RVR of 137 bpm Of note, amiodarone was discontinued in 01/12 due to concerns for amiodarone toxicity Initially started on Cardizem in the ED; stopped on arrival to the floors Dose of metoprolol being titrated from 50mg twice daily to 50mg three times a day by cardiology; patient also on digoxin 3 times a week. Patient may require AV junction ablation if she continues to have difficulty controlling ventricular rate Continue Lasix 20 mg twice daily. Imdur on hold Telemonitoring Acute decompensated HFrEF Non-ischemic cardiomyopathy Most recent 2D echo LV severely dilated, EF 20-24%, with EF of 20%, severe diffuse left ventricular hypokinesis, diastolic function is severely abnormal (grade III). BNP 1377 CXR with cardiomegaly and cardiac pacemaker and evidence of congestive failure. Bilateral airspace opacities likely represent pulmonary edema. Plan to continue home lasix dose 20mg PO BID Strict I&Os/daily weights Cat bite Occurred on 02/26,Currently on Augmentin. Wound healing well. Continue for total of 5 days CKD IV Creatinine similar to baseline. Continue to monitor closely Tachybrady syndrome S/p pacemaker placement History of MCA stroke Continue plavix, statin DM II A1c 6.4 in 10/14, Diet controlled SSI while in-patient BSG AC HS HTN Continue metoprolol succinate History of right MCA stroke Continue Plavix, Eliquis, atorvastatin DVT Ppx: Eliquis Code status: DNR PCP: [facility] Dispo: Admitted to PCU Discussed plan of care with patient's sister at bedside on March 02, 2024. Answered questions/queries Time spent evaluating patient, direct bedside care, chart review, placing orders, interpretation of diagnostic studies, discussion with consultants, patient, and family members, as well as other required patient management activities is 50 minutes Please note the above document was generated using voice recognition software. It may contain grammatical, syntax or spelling errors. Any formal questions or concerns about the content, text or information contained within the body of this dictation should be directly addressed to the provider for clarification Admission and Anticipated Discharge Date Admission Date: February 29, 2024 Subjective Patient seen and examined at bedside. Telemetry shows A.fib with VR of 90s to 110s. No shortness of breath; saturating well on room air Review of Systems Review of Systems: All systems reviewed & are unremarkable except as noted in Subjective Physical Exam Physical Exam: Constitutional: WD/WN, vitals as above, NAD, sitting up in bed, pleasant, conversing easily Respiratory: clear bilateral breath sounds Cardiovascular: Irregular, no murmur, no edema Vessels: no JVD or carotid bruit Chest: normal inspection of chest Abdomen: normal bowel sounds, soft, nontender, no hepatosplenomegaly Musculoskeletal: no cyanosis or clubbing, extremities motor strength 5/5 Skin: no rashes, warm and dry normal turgor Neurologic: PERRL, EOMI, accommodation nl, no face palsy, no dysarthria CN's II- XI intact bilaterally and moves all extremities Psychiatric: A+Ox3, euthymic affect Results & Data Results & Data Vital Signs (Past 12 Hours) Vital Signs Temp Pulse Pulse Resp BP Pulse Ox O2 Del Method 03/05/24 11:13 36.5 C 93 H 18 123/85 96 Room Air 03/05/24 07:30 100 H 03/05/24 07:02 36.4 C L 71 18 121/75 99 Room Air 03/05/24 02:43 36.4 C L 88 16 100/59 L 90 Room Air (7) Type 2 diabetes mellitus Diabetes mellitus alf insulin use: without terminal makeup operator use Diabetes mellitus complication status: with kidney complications Diabetes mellitus complication detail: with chronic kidney disease Chronic kidney disease stage: stage 3 (moderate) Qualified Code(s): 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
[2024-03-05] MEDS: METOPROLOL SUCC 50MG EXT REL TAB PO SCH (14:21)
--- NOTE | 2024-03-06 07:07 | Cardiology Progress Note ---
Date of Service March 06, 2024 Assessment & Plan (1) Atrial fibrillation with rapid ventricular response: (2) Cardiac pacemaker: (3) Acute on chronic HFrEF (heart failure with reduced ejection fraction): (4) Nonischemic cardiomyopathy: Plan IMPRESSION: Complex 78-year-old female with severe nonischemic cardiomyopathy, admitted with recurrent symptomatic atrial fibrillation with a rapid ventricular response. Onset of atrial fibrillation 02/23/2024 via device interrogation. Amiodarone previously discontinued in December 2022 due to concerns for pulmonary toxicity. Patient chronically prescribed reduced dose Eliquis anticoagulation. Volume status appears compensated at this time. Heart rates remain uncontrolled with very limited options with prior toxicity to amiodarone, LVEF 20%, creatinine 2.5 mg/dL, systolic blood pressure in the 90's. Risks of cardioversion excessive. IMPRESSION: -Paroxysmal atrial fibrillation with RVR -Tachybradycardia syndrome status post permanent pacemaker Symptomatic atrial fibrillation with a rapid ventricular response-- currently asymptomatic Prior use of amiodarone discontinued in December 2022 due to concern for pulmonary toxicity. Tachy-Bhavik Syndrome status post permanent pacemaker implantation on August 14, 2020-- Device reprogrammed to DDD in August 2022. Generator: [employer] Ruby XT DR DRAGAN Bajwa [id number], serial number [id number]. Right atrial lead Medtronic 5076-52 cm, serial number [id number]. Right ventricular lead, Medtronic 3830-69 cm, serial number [id number]. 1. Heart rates trending towards better control, Increase metoprolol succinate to 100 mg BID and continue oral digoxin 0.125 mg Monday given renal dysfunction. 2. Pacemaker function appropriate with intermittent pacing when heart rate slowed. 3. Maintain telemetry 4. Patient would consider AV junction ablation/device upgrade if indicated. Currently appears to be tolerating medication changes, but rates trending towards better control. Will defer AVN ablation at this time I am not sure this procedure would change the patient's outcome. -Severe nonischemic cardiomyopathy Nonischemic cardiomyopathy with left ventricular ejection fraction 20% (does not have an ICD) NYHA Class 3 No signs of volume overload or edema 1. Continue furosemide as prescribed for now. Case discussed with Dr. Villalpando. Further recommendations pending assessment. I spent a total of 30 minutes on the date of service in preparation, delivery, and documentation of the care provided to the patient excluding any time spent in the performance of separately billed services. SARITHA Capone Department of Cardiology, [facility] This chart was completed in part utilizing Speech Voice Recognition Software. Grammatical errors, random word insertions, pronoun errors, and incomplete sentences are an occasional consequence of this system due to software limitations, ambient noise, and hardware issues. Any formal questions or concerns about the content, text, or information contained within the body of this dictation should be directly addressed to the provider for clarification. Admission and Anticipated Discharge Date Admission Date: February 29, 2024 Supervising Physician Co-Signing Physician Notes Attending attestation: Case reviewed with the advanced practitioner. I have personally performed a history and physical examination on the patient. I have reviewed the advanced practitioner's documentation on the date of service referenced in note, and I agree with, and take responsibility for the plan of care. Subjective: Pt comfortable. Sister notes that patient gets short of breath and her legs get tired with short walks such as walking to the bathroom Exam: device pocket clean , dry and intact Impression/ Plan: -Continue furosemide 20 mg twice daily, renal function relatively unchanged compared to recent baseline Continue digoxin 0.125 mg on Mondays, Wednesdays and Fridays, dose adjusted for renal function Metoprolol succinate dose increased again to 100 mg twice daily. Has pacemaker for heart rate support. Relative low blood pressure and renal function prevent administration of lisinopril, ARNI, ARB, or angiotensin receptor rizwan. Difficult to determine if the patient's symptoms with walking are due to heart failure or just generalized deconditioning. Agree with plan to transfer patient to [facility] for additional rehab. Stable from cardiac perspective for transfer to rehab. I spent a total of 20 minutes coordinating, documenting, and providing care for this patient excluding time spent in the performance of separately billed services or time spent by another provider. Dimitri Villalpando, DO Subjective Complex 78-year-old female with severe nonischemic cardiomyopathy, admitted with recurrent symptomatic atrial fibrillation with a rapid ventricular response. Onset of atrial fibrillation 02/23/2024 via device interrogation. Amiodarone previously discontinued in December, due to concerns for pulmonary toxicity. Patient chronically prescribed reduced dose Eliquis anticoagulation. 02/29/2024: Diltiazem discontinued Started on metoprolol tartrate 25 mg every 6 hours plus IV Lopressor as needed . Amlodipine and Imdur held for further titration of beta-rizwan. Lasix continued 03/01/2024: Metoprolol tartrate continued IV digoxin started. 03/02/2024: Metoprolol tartrate discontinued in favor of metoprolol succinate 50 mg twice daily Digoxin continued with an additional dose that evening. 03/03/2024: Metoprolol succinate 50 mg twice daily continue Digoxin transition to oral, 0.125 mg Monday only (due to renal dysfunction) 03/04/2024: Rates in A-fib 90s to 110s on metoprolol succinate 50 mg twice daily and digoxin 0.125 mg Monday03/05/2024: Heart rates trending towards better control. Metoprolol succinate increased to 50 mg 3 times daily Imdur discontinued. 03/06/2024: Upon entrance into the room patient resting in bed without concern. Heart rates leaning towards borderline control. Asymptomatic. Telemetry: AFIB 90-100s Volume status appears well compensated. No chest pain, shortness of breath, palpitations, dizziness, syncope or near syncope. No orthopnea, PND, or increased lower extremity edema. No fever, chills, cough, hematochezia, melena, or hemoptysis. Physical Exam Physical Exam: General: Alert to person and place. NAD. Laying on her back HENT: Normocephalic. Atraumatic. Eyes: PER. Conjunctiva pink, sclera clear. Neck: No JVD. Heart: Irregularly irregular. Soft systolic murmur. Lungs: Clear to bases without rhonchi or wheeze Abdomen: +BS. Soft. Nontender. No masses or organomegaly. Extremities: No clubbing, cyanosis, or edema. Neuro: Answers questions appropriately denying any acute focal complaints Pulses: Posterior tibial=1/4. Results & Data Vital Signs (Past 12 Hours) Vital Signs Temp Pulse Pulse Resp BP Pulse Ox O2 Del Method 03/06/24 03:05 36.4 C L 100 H 18 96/60 L 93 Room Air 03/05/24 22:43 36.4 C L 117 H 16 109/76 94 Room Air 03/05/24 21:58 108 H 03/05/24 21:20 Room Air 03/05/24 19:49 36.5 C 98 H 16 130/84 97 Room Air
[2024-03-06 07:28] LABS: BUN Creatinine Ratio 18.5 (10-20); Calcium 9.3 mg/dl (8.6-10.3); Creatinine Clr Calc Pharmacy 19.3 ml/min; Est GFR (African American) 23.8 ml/min; Est GFR (Non-African American) 20.6 ml/min; Potassium 3.9 mmol/L (3.5-5.1)
[2024-03-06 07:49] LABS: Basophils # (auto) 0.08 K/uL (0.00-0.20); Basophils % (auto) 0.8 %; Eosinophils # (auto) 0.21 K/uL (0.00-0.50); Eosinophils % (auto) 2.1 %; Hematocrit (blood only) 36.8 % (37.0-47.0); Hemoglobin 11.9 g/dl (12.0-16.0); Immature Granulocytes # (auto) 0.06 K/uL (0.01-0.20); Immature Granulocytes % (auto) 0.6 %; Lymphocytes # (auto) 2.87 K/uL (1.20-3.40); Lymphocytes % (auto) 29.1 %; Mean Corpuscular Hemoglobin 32.4 pg (25.0-34.0); Mean Corpuscular Hgb Conc 32.3 g/dL (32.0-36.0); Mean Corpuscular Volume 100.3 fL (80.0-100.0); Mean Platelet Volume 10.1 fL (9.4-12.4); Monocytes # (auto) 1.41 K/uL (0.11-0.59); Monocytes % (auto) 14.3 %; Neutrophils # (auto) 5.24 K/uL (1.40-6.50); Neutrophils % (auto) 53.1 %; Nucleated RBC # (auto) 0.02 K/uL (0.00-0.12); Nucleated RBC % (auto) 0.2 %; Platelet Count 288 K/uL (130-400); RDW Coefficient of Variation 15.6 % (11.5-14.5); RDW Standard Deviation 57.3 fL (36.4-46.3); Red Blood Count 3.67 M/uL (4.20-5.40); White Blood Count 9.87 K/ul (4.8-10.8)
[2024-03-06] MEDS: METOPROLOL SUCC 50MG EXT REL TAB PO STA (09:34)
--- NOTE | 2024-03-06 18:09 | Hospitalist Progress Note ---
Date of Service March 06, 2024 Assessment & Plan (1) Dyspnea: (2) Atrial fibrillation with rapid ventricular response: (3) Acute on chronic HFrEF (heart failure with reduced ejection fraction): (4) CKD (chronic kidney disease), stage IV: (5) Tachycardia-bradycardia syndrome: (6) History of right MCA stroke: (7) Type 2 diabetes mellitus: (8) HTN (hypertension): Plan This is a 78yo F with a PMHx significant for nonischemic cardiomyopathy, EF 20- 25% on echo on 05/14, tachybradycardia syndrome s/p pacemaker, paroxysmal atrial fibrillation on Eliquis, CKD IV, prediabetes, HLD, anxiety, history of CVA, dementia who presented with worsening SOB over the past few days and was found to have A fib with RVR and decompensated CHF. A fib with RVR EKG on presentation showed atrial fibrillation with RVR of 137 bpm Of note, amiodarone was discontinued in December 2022 due to concerns for amiodarone toxicity Initially started on Cardizem in the ED, pt on home Eliquis 2.5mg BID Cardiology was consulted, appreciate recs. - cardizem subsequently discontinued -Dose of metoprolol being titrated from 50mg twice daily to 100mg twice daily by cardiology; patient also on digoxin 3 times a week due to renal function. -Patient may require AV junction ablation if she continues to have difficulty controlling ventricular rate -Continue Lasix 20 mg twice daily. Imdur on hold -Telemonitoring Acute decompensated HFrEF Non-ischemic cardiomyopathy BNP 1377 CXR with cardiomegaly and cardiac pacemaker and evidence of congestive failure. Bilateral airspace opacities likely represent pulmonary edema. Most recent 2D echo LV severely dilated, EF 20-24%, with EF of 20%, severe diffuse left ventricular hypokinesis, diastolic function is severely abnormal (grade III). Cardiology consulted, appreciate recs -Plan to continue home lasix dose 20mg PO BID Strict I&Os/daily weights Continue to monitor Tachybrady syndrome S/p pacemaker placement Cat bite Occurred on 02/26,Currently on Augmentin. Wound healing well. Continue for total of 5 days Completed course CKD IV Creatinine similar to baseline. Continue to monitor closely History of MCA stroke Continue plavix, statin DM II A1c 6.4 in 10/14, Diet controlled SSI while in-patient BSG AC HS HTN Continue metoprolol succinate DVT Ppx: Eliquis Code status: DNR PCP: [facility] Dispo: [facility] on discharge Admission and Anticipated Discharge Date Admission Date: February 29, 2024 Subjective Pt was seen with caregiver and sister at bedside. Hard of hearing but notes SOB only with ambulation. Review of Systems Review of Systems: All systems reviewed & are unremarkable except as noted in Subjective Physical Exam Physical Exam: General: Alert, oriented. No acute distress Psych: Appropriate mood and affect Neuro: some difficulty with movements in the bed HEENT: NC/AT CV: Irregular Resp: Breath sounds clear bilaterally, no increased effort of breathing. Abdomen: Soft, nontender, nondistended. Extremities: No edema in lower extremities bilaterally. Results & Data Results & Data Vital Signs (Past 12 Hours) Vital Signs Temp Pulse Pulse Resp BP Pulse Ox O2 Del Method 03/06/24 07:10 36.4 C L 91 H 18 137/83 95 Room Air 03/06/24 03:05 36.4 C L 100 H 18 96/60 L 93 Room Air 03/05/24 22:43 36.4 C L 117 H 16 109/76 94 Room Air 03/05/24 21:58 108 H 03/05/24 21:20 Room Air (7) Type 2 diabetes mellitus Diabetes mellitus terminal operations manager insulin use: without terminal operations manager use Diabetes mellitus complication status: with kidney complications Diabetes mellitus complication detail: with chronic kidney disease Chronic kidney disease stage: stage 3 (moderate) Qualified Code(s): 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
[2024-03-06] MEDS: METOPROLOL SUCC 50MG EXT REL TAB PO SCH (20:52)
--- NOTE | 2024-03-07 07:05 | Cardiology Progress Note ---
Date of Service March 07, 2024 Assessment & Plan (1) Atrial fibrillation with rapid ventricular response: (2) Cardiac pacemaker: (3) Acute on chronic HFrEF (heart failure with reduced ejection fraction): (4) Nonischemic cardiomyopathy: Plan IMPRESSION: Complex 78-year-old female with severe nonischemic cardiomyopathy, admitted with recurrent symptomatic atrial fibrillation with a rapid ventricular response. Onset of atrial fibrillation 02/23/2024 via device interrogation. Amiodarone previously discontinued in December 2022 due to concerns for pulmonary toxicity. Patient chronically prescribed reduced dose Eliquis anticoagulation. Volume status appears compensated at this time. Heart rates remain uncontrolled with very limited options with prior toxicity to amiodarone, LVEF 20%, creatinine 2.5 mg/dL, systolic blood pressure in the 90's. Risks of cardioversion excessive. IMPRESSION: -Paroxysmal atrial fibrillation with RVR -Tachybradycardia syndrome status post permanent pacemaker Symptomatic atrial fibrillation with a rapid ventricular response-- currently asymptomatic Prior use of amiodarone discontinued in December 2022 due to concern for pulmonary toxicity. Tachy-Bhavik Syndrome status post permanent pacemaker implantation on August 14, 2020-- Device reprogrammed to DDD in August 2022. Generator: [employer] Ruby XT DR DRAGAN Bajwa [id number], serial number [id number]. Right atrial lead Medtronic 5076-52 cm, serial number [id number]. Right ventricular lead, Medtronic 3830-69 cm, serial number [id number]. 1. Heart rates trending towards better control, Continue metoprolol succinate to 100 mg BID and continue oral digoxin 0.125 mg Monday given renal dysfunction at discharge. will need a Digoxin level in 7-10 days post DC. 2. Pacemaker function appropriate with intermittent pacing when heart rate slowed. 3. Maintain telemetry while admitted 4. Patient would consider AV junction ablation/device upgrade if indicated. Currently appears to be tolerating medication changes, but rates trending towards better control. Will defer AVN ablation at this time I am not sure this procedure would change the patient's outcome. -Severe nonischemic cardiomyopathy Nonischemic cardiomyopathy with left ventricular ejection fraction 20% (does not have an ICD) NYHA Class 3 No signs of volume overload or edema 1. Continue furosemide as prescribed. Case discussed with Dr. Villalpando. No further recommendations from a cardiology standpoint, Okay for DC to rehab when bed is available. I spent a total of 30 minutes on the date of service in preparation, delivery, and documentation of the care provided to the patient excluding any time spent in the performance of separately billed services. SARITHA Capone Department of Cardiology, [facility] This chart was completed in part utilizing Speech Voice Recognition Software. Grammatical errors, random word insertions, pronoun errors, and incomplete sentences are an occasional consequence of this system due to software limitations, ambient noise, and hardware issues. Any formal questions or concerns about the content, text, or information contained within the body of this dictation should be directly addressed to the provider for clarification. Admission and Anticipated Discharge Date Admission Date: February 29, 2024 Supervising Physician Co-Signing Physician Notes Attending attestation: Case reviewed with the advanced practitioner. I have personally performed a history and physical examination on the patient. I have reviewed the advanced practitioner's documentation on the date of service referenced in note, and I agree with, and take responsibility for the plan of care. Impression/ Plan: -Continue furosemide 20 mg twice daily, renal function relatively unchanged compared to recent baseline Continue digoxin 0.125 mg on Mondays, Wednesdays and Fridays, dose adjusted for renal function Metoprolol succinate 100 mg twice daily. Has pacemaker for heart rate support. Relative low blood pressure and renal function prevent administration of lisinopril, ARNI, ARB, or angiotensin receptor rizwan. Difficult to determine if the patient's symptoms with walking are due to heart failure or just generalized deconditioning. Agree with plan to transfer patient to [facility] for additional rehab. Stable from cardiac perspective for transfer to rehab. I spent a total of 20 minutes coordinating, documenting, and providing care for this patient excluding time spent in the performance of separately billed services or time spent by another provider. Dimitri Villalpando DO Subjective Complex 78-year-old female with severe nonischemic cardiomyopathy, admitted with recurrent symptomatic atrial fibrillation with a rapid ventricular response. Onset of atrial fibrillation 02/23/2024 via device interrogation. Amiodarone previously discontinued in December, due to concerns for pulmonary toxicity. Patient chronically prescribed reduced dose Eliquis anticoagulation. 02/29/2024: Diltiazem discontinued Started on metoprolol tartrate 25 mg every 6 hours plus IV Lopressor as needed . Amlodipine and Imdur held for further titration of beta-rizwan. Lasix continued 03/01/2024: Metoprolol tartrate continued IV digoxin started. 03/02/2024: Metoprolol tartrate discontinued in favor of metoprolol succinate 50 mg twice daily Digoxin continued with an additional dose that evening. 03/03/2024: Metoprolol succinate 50 mg twice daily continue Digoxin transition to oral, 0.125 mg Monday only (due to renal dysfunction) 03/04/2024: Rates in A-fib 90s to 110s on metoprolol succinate 50 mg twice daily and digoxin 0.125 mg Monday03/05/2024: Metoprolol succinate increased to 50 mg 3 times daily Imdur discontinued. 03/06/2024: Heart rates trending towards better control. Metoprolol succinate increased to 100 mg twice daily. Rate control preferred over rhythm management. 03/07/2024: Upon entrance into the room patient resting in bed without concern. Sisters at bedside. Telemetry: AFIB 70-90s Labs: stable. Volume status appears well compensated. No chest pain, shortness of breath, palpitations, dizziness, syncope or near syncope. No orthopnea, PND, or increased lower extremity edema. No fever, chills, cough, hematochezia, melena, or hemoptysis. Review of Systems Review of Systems: All systems reviewed & are unremarkable except as noted in HPI & below Physical Exam Physical Exam: General: Alert to person and place. NAD. Laying on her back HENT: Normocephalic. Atraumatic. Eyes: PER. Conjunctiva pink, sclera clear. Neck: No JVD. Heart: Irregularly irregular. Soft systolic murmur. Lungs: Clear to bases without rhonchi or wheeze Abdomen: +BS. Soft. Nontender. No masses or organomegaly. Extremities: No clubbing, cyanosis, or edema. Neuro: Answers questions appropriately denying any acute focal complaints Pulses: Posterior tibial=1/4. Results & Data Vital Signs (Past 12 Hours) Vital Signs Temp Pulse Pulse Resp BP Pulse Ox O2 Del Method 03/07/24 02:45 36.4 C L 92 H 18 111/67 98 Room Air 03/06/24 23:04 36.6 C 98 H 18 104/68 91 Room Air 03/06/24 22:00 99 H 03/06/24 20:51 89 03/06/24 19:39 36.5 C 79 18 101/69 94 Room Air Laboratory Results CBC 03/07/24 Range/Units 07:26 WBC 10.11 (4.8-10.8) K/ul RBC 3.62 L (4.20-5.40) M/uL Hgb 11.7 L (12.0-16.0) g/dl Hct 35.9 L (37.0-47.0) % Plt Count 326 (130-400) K/uL Comprehensive Metabolic Panel 03/07/24 Range/Units 07:26 Sodium 140 (136-145) mmol/L Potassium 4.2 (3.5-5.1) mmol/L Chloride 106 (98-107) mmol/L Carbon Dioxide 25 (21-32) mmol/L BUN 46 H (6-23) mg/dl Creatinine 2.06 H (0.6-1.2) mg/dl Glucose 140 H (70-99(Fasting)) mg/dl Calcium 9.6 (8.6-10.3) mg/dl Intake and Output 03/06/24 03/07/24 03/07/24 22:59 06:59 14:59 Intake Total 150 / 300 150 / 300 Balance 150 / 300 150 / 300 Intake: Oral 150 / 300 150 / 300 Other: # Unmeasured Voids 1 1 Weight 74.026 kg Weight Measurement Method Built in [facility]
[2024-03-07 08:12] LABS: Hematocrit (blood only) 35.9 % (37.0-47.0); Hemoglobin 11.7 g/dl (12.0-16.0); Mean Corpuscular Hemoglobin 32.3 pg (25.0-34.0); Mean Corpuscular Hgb Conc 32.6 g/dL (32.0-36.0); Mean Corpuscular Volume 99.2 fL (80.0-100.0); Mean Platelet Volume 10.6 fL (9.4-12.4); Platelet Count 326 K/uL (130-400); RDW Coefficient of Variation 15.6 % (11.5-14.5); RDW Standard Deviation 56.2 fL (36.4-46.3); Red Blood Count 3.62 M/uL (4.20-5.40); White Blood Count 10.11 K/ul (4.8-10.8)
[2024-03-07 08:29] LABS: BUN Creatinine Ratio 22.3 (10-20); Calcium 9.6 mg/dl (8.6-10.3); Creatinine Clr Calc Pharmacy 20.7 ml/min; Est GFR (African American) 26.1 ml/min; Est GFR (Non-African American) 22.5 ml/min; Magnesium 2.1 mg/dl (1.7-2.4); Phosphorus 3.8 mg/dl (2.5-4.9); Potassium 4.2 mmol/L (3.5-5.1)
--- NOTE | 2024-03-07 13:53 | Discharge Summary ---
Discharge Summary Date of Service March 07, 2024 Notes For Next Care Provider Per cardiology will need a digoxin level 7-10 days after discharge Please ensure close follow up with Cardiology after discharge Medication Changes From Visit Per cardiology: -continue lasix 20mg BID, digoxin 0.125mg MWF, metoprolol succinate 100mg BID -discontinued Imdur and Amlodipine Admission HPI Per Admitting Provider This is a 78yo F with a PMH of nonischemic cardiomyopathy, EF 20-25% on echo on 05/14, tachybradycardia syndrome s/p pacemaker, paroxysmal atrial fibrillation on Eliquis, CKD IV, prediabetes, HLD, anxiety, history of CVA, dementia and other medical problems listed below presented with worsening SOB over the past few days. States that her family members first noticed the dyspnea during conversation. Denies any CP or palpitations. Has been feeling fatigued and not up for her usual activities so affiliate marketing specialist brought her in for further evaluation. Amiodarone discontinued in 01/12 due to concerns for amiodarone toxicity. Continues to follow with [facility] cardiology and was seen in December and January and is currently taking metoprolol succinate 25mg and is on low dose Eliquis 2.5mg BID for anticoagulation. Last 2D echo from April 2023 with EF of 20%. No F/C, lightheadedness, CP, N/V, abd pain, dysuria, diarrhea or constipation today. Ball Assembler did mention she endorsed nausea, abdominal cramping and diarrhea yesterday but has since resolved. Has taken all AM medications. Takes all of her meds per the med pack and sometimes takes an additional diuretic at home MoWeFr and has been doing so the past few weeks at home. Also with history of cat bite on right wrist, seen by PCP on 02/26 and was started on Keflex. Pain and ROM has improved with abx. Denies any current pair or swelling at bite site. In ED, was given 10mg diltiazem bolus and started on diltiazem drip, with HR of 115. Was also given NSS 500mg x 1. Admission Exam Per Admitting Provider GENERAL APPEARANCE: AxOx3 generally pleasant, no acute distress. HEENT: NC, AT. MMM. EOMI, clear conjunctiva, oropharynx clear. HEART: irregularly irregular, tachycardic LUNGS: CTAB, moving air well. expiratory wheeze cleared with cough ABDOMEN: Soft, nontender, nondistended with good bowel sounds heard. BACK: No CVAT, no obvious deformity. EXTREMITIES: Without cyanosis, clubbing or edema. NEUROLOGICAL: Grossly nonfocal. Alert and oriented, moving all 4 extremities. CN not formally tested but appear grossly intact Skin: Warm and dry without any rash--small area on left wrist from cat bit, slight erythema no tenderness . Principal Dx & Hospital Course #1 = Principal Diagnosis (1) Dyspnea: (2) Atrial fibrillation with rapid ventricular response: (3) Acute on chronic HFrEF (heart failure with reduced ejection fraction): (4) CKD (chronic kidney disease), stage IV: (5) Tachycardia-bradycardia syndrome: (6) History of right MCA stroke: (7) Type 2 diabetes mellitus: (8) HTN (hypertension): Plan This is a 78yo F with a PMHx significant for nonischemic cardiomyopathy, EF 20- 25% on echo on 05/14, tachybradycardia syndrome s/p pacemaker, paroxysmal atrial fibrillation on Eliquis, CKD IV, prediabetes, HLD, anxiety, history of CVA, dementia who presented with worsening SOB over the past few days and was found to have A fib with RVR and decompensated CHF. A fib with RVR EKG on presentation showed atrial fibrillation with RVR of 137 bpm Of note, amiodarone was discontinued in December 2022 due to concerns for amiodarone toxicity Initially started on Cardizem in the ED, pt on home Eliquis 2.5mg BID Cardiology was consulted, appreciate recs. - cardizem subsequently discontinued -Dose of metoprolol was titrated from 50mg twice daily to 100mg twice daily by cardiology; patient also on digoxin 3 times a week due to renal function. -Patient may require AV junction ablation if she continues to have difficulty controlling ventricular rate -Continue Lasix 20 mg twice daily. -Imdur and amlodipine discontinued as BB was titrated up. -Relative low blood pressure and renal function prevent administration of GLORIA, ARNI or ARB -Per cardiology will need a digoxin level 7-10 days after discharge Close PCP and cardiology followup after discharge Acute decompensated HFrEF Non-ischemic cardiomyopathy BNP 1377 CXR with cardiomegaly and cardiac pacemaker and evidence of congestive failure. Bilateral airspace opacities likely represent pulmonary edema. Most recent 2D echo LV severely dilated, EF 20-24%, with EF of 20%, severe diffuse left ventricular hypokinesis, diastolic function is severely abnormal (grade III). Cardiology consulted, appreciate recs -Plan to continue home lasix dose 20mg PO BID Strict I&Os/daily weights Continue to monitor Close PCP and cardiology followup after discharge Tachybrady syndrome S/p pacemaker placement Cat bite Occurred on 02/26, was on Augmentin. Wound healing well. Continue for total of 5 days Completed course CKD IV Creatinine similar to baseline. Continue to monitor closely History of MCA stroke Continue plavix, statin DM II A1c 6.4 in 10/14, Diet controlled SSI while in-patient resume home regimen after discharge HTN Continue metoprolol succinate DVT Ppx: Eliquis Code status: DNR PCP: [facility] Dispo: [facility] on discharge Discharge Exam General: Alert, oriented. No acute distress Psych: Appropriate mood and affect Neuro: some difficulty with movements in the bed. hearing loss noted HEENT: NC/AT CV: Irregular Resp: Breath sounds clear bilaterally, no increased effort of breathing. Abdomen: Soft, nontender, nondistended. Extremities: No edema in lower extremities bilaterally. Updated Medication List Medication Instructions Recorded Confirmed Type allopurinol 100 mg tablet 100 mg PO QAM 06/11/19 02/29/24 History clopidogrel 75 mg tablet 75 mg PO QAM #30 tabs 02/24/20 02/29/24 Rx escitalopram oxalate 10 mg tablet 10 mg PO QAM 08/12/20 02/29/24 History nitroglycerin 0.4 mg sublingual 0.4 mg sublingual UD PRN chest 05/11/22 02/29/24 Rx tablet (Nitrostat) pain #10 tabs furosemide 20 mg tablet 20 mg PO BID 09/18/22 02/29/24 History atorvastatin 40 mg tablet 40 mg PO HS 01/06/23 02/29/24 History famotidine 20 mg tablet 20 mg PO AMHS 01/06/23 02/29/24 History triamcinolone acetonide 0.05 % 0 applic topical BID PRN Skin 01/06/23 02/29/24 History topical ointment Irritation albuterol sulfate 90 mcg/actuation 2 puff inhalation DIRECTED 03/28/23 02/29/24 History aerosol inhaler (Ventolin HFA) levothyroxine 88 mcg tablet 88 mcg PO QAM 03/28/23 02/29/24 History ondansetron 4 mg disintegrating 4 mg translingual Q8 PRN n/v 03/28/23 02/29/24 History tablet apixaban 2.5 mg tablet (Eliquis) 2.5 mg PO BID 02/29/24 02/29/24 History calcitriol 0.5 mcg capsule 0.5 mcg PO QAM 02/29/24 02/29/24 History digoxin 125 mcg (0.125 mg) tablet 0.125 mg PO MoWeFr@1600 #12 tabs 03/07/24 Rx (Digitek) metoprolol succinate 50 mg 100 mg (2 x 50 mg) PO BID #120 tabs 03/07/24 Rx tablet,extended release 24 hr Hospital Stay Data Consultations 02/29/24 13:46 ED Decision to Admit Stat 02/29/24 14:17 Consult Cardiology Routine Diagnostic Imagining Performed Chest X-Ray 02/29/24 13:00 SINGLE VIEW CHEST CLINICAL HISTORY: Dyspnea. Atrial fibrillation. FINDINGS: 2 AP, portable, upright chest radiographs are compared to study dated 01/12/2024 and correlated with chest CT dated 01/08/2023. A 2-lead cardiac pacemaker is unchanged in position. The heart is enlarged noting atherosclerotic calcification of the thoracic aorta. There is pulmonary vascular congestion. Bilateral airspace opacities likely represent interstitial edema. No large pleural effusion or pneumothorax is seen. The skeletal structures are osteopenic. The bony thorax is grossly intact. Arthritic change is seen in the shoulders. IMPRESSION: 1. Cardiomegaly and cardiac pacemaker and evidence of congestive failure. 2. Bilateral airspace opacities likely represent pulmonary edema. Radiographic follow-up to resolution is recommended. ACT 112: Negative or not required by law. Electronically signed by: Jaspreet Long M.D. 02/29/2024 1:27 PM Chest X-Ray 03/05/24 07:00 TWO VIEW CHEST CLINICAL HISTORY: Follow-up pulmonary edema. FINDINGS: AP upright and lateral chest radiographs are compared to study dated 02/29/2024 and correlated with chest CT dated 01/08/2023. A 2-lead cardiac pacemaker is unchanged in position. The heart is enlarged noting atherosclerotic calcification of the thoracic aorta. There is mild pulmonary vascular congestion. This has modestly improved as compared to 02/29/2024. No airspace consolidation or pleural effusion is identified. There is no pneumothorax. The skeletal structures are osteopenic. The bony thorax appears intact. Degenerative change is noted in the shoulders and spine. Cholecystectomy clips are seen in the right upper quadrant. IMPRESSION: 1. Cardiomegaly and cardiac pacemaker with mild pulmonary vascular congestion. This has modestly improved as compared to 02/29/2024. 2. No airspace consolidation or pleural effusion is identified. ACT 112: Negative or not required by law. Electronically signed by: Jaspreet Long M.D. 03/05/2024 10:31 AM Discharge Instructions Given to Patient (Per Discharging Provider) Nancy, You are being discharged to [facility]. Cardiology made some changes to your medications listed below. Please keep close follow up with your primary care provider and Cardiology after discharge. Please do not hesitate to come back to the emergency room if your symptoms worsen or return. It was a pleasure taking care of you while you were here. Total Time Total Time Spent Total Time Spent (In Minutes): 75
== END 2024-03-07 17:42 | DRG 308 ==
LOC: ED 11:18 → 2S 13:50 → SUATTDRO 13:50 → 2S 14:52

== ENCOUNTER 2024-03-29 19:30 | Observation (INO) ==
[2024-03-29 21:13] LABS: Basophils # (auto) 0.04 K/uL (0.00-0.20); Basophils % (auto) 0.5 %; Eosinophils % (auto) 1.2 %; Hemoglobin 10.3 g/dl (12.0-16.0); Immature Granulocytes # (auto) 0.02 K/uL (0.01-0.20); Immature Granulocytes % (auto) 0.2 %; Lymphocytes # (auto) 2.18 K/uL (1.20-3.40); Lymphocytes % (auto) 26.7 %; Mean Corpuscular Hemoglobin 32.1 pg (25.0-34.0); Mean Corpuscular Hgb Conc 32.2 g/dL (32.0-36.0); Mean Corpuscular Volume 99.7 fL (80.0-100.0); Mean Platelet Volume 10.8 fL (9.4-12.4); Monocytes # (auto) 1.25 K/uL (0.11-0.59); Monocytes % (auto) 15.3 %; Neutrophils # (auto) 4.56 K/uL (1.40-6.50); Neutrophils % (auto) 56.1 %; Nucleated RBC # (auto) 0.02 K/uL (0.00-0.12); Nucleated RBC % (auto) 0.2 %; Platelet Count 258 K/uL (130-400); RDW Coefficient of Variation 15.9 % (11.5-14.5); RDW Standard Deviation 57.9 fL (36.4-46.3); Red Blood Count 3.21 M/uL (4.20-5.40); White Blood Count 8.15 K/ul (4.8-10.8)
[2024-03-29 21:16] LABS: Albumin Globulin Ratio 1.7 (0.9-2); Albumin Level 3.7 gm/dl (3.4-5.0); BUN Creatinine Ratio 11.3 (10-20); Calcium 8.1 mg/dl (8.6-10.3); Creatinine Clr Calc Pharmacy 23.4 ml/min; Est GFR (African American) 27.9 ml/min; Globulin 2.2 gm/dl (2.5-4.0); Magnesium 1.4 mg/dl (1.7-2.4); Potassium 2.8 mmol/L (3.5-5.1); Total Protein 5.9 gm/dl (6.0-8.3)
[2024-03-29 21:23] LABS: Troponin I High Sensitivity 16.8 pg/ml (0-14)
[2024-03-29 21:30] LABS: Appearance Urine Cloudy (Clear); Bilirubin Urine Negative (Negative); Blood Urine Negative (Negative); Color Urine Yellow; Glucose Urine UA Negative (Negative); Ketones Urine Negative (Negative); Leukocyte Esterase Urine Trace (Negative); Nitrite Urine Negative (Negative); Protein Urine Negative (Negative); RBC Urine Automated 0-2 /hpf (0-2); Urobilinogen Urine Negative (Negative); pH Urine 5.5 (4.5-7.5)
[2024-03-29 21:31] LABS: Bacteria Urine Automated None Seen (None Seen)
--- NOTE | 2024-03-29 21:52 | XRay Report ---
XR chest 1V portable CLINICAL HISTORY: Dyspnea TECHNIQUE: Single frontal radiograph of the chest was obtained. Comparison: Comparison is made to chest radiograph 03/05/2024 FINDINGS: An implanted pacemaker is seen. Cardiomegaly is noted. The aortic arch is calcified. Peribronchial th ickening is seen. No evidence of pleural effusion or pneumothorax. IMPRESSION: Peribronchial thickening is seen compatible with infectious/inflammatory airways disease or viral pne umonia. No amalia consolidation is seen. Stable cardiomegaly. ACT 112: Negative or not required by law. Electronically signed by: dR Adams M.D. 03/29/2024 9:51 PM
[2024-03-29] MEDS: MAGNESIUM SULFATE / D5W 1 GM/100 ML BAG IV SCH (22:02)
[2024-03-29] MEDS: POTASSIUM CHLORIDE CRTAB 20 MEQ TABCR PO STA (22:02)
[2024-03-29] MEDS: SODIUM CHLORIDE 0.9% 1,000 ML IV SCH (23:16)
--- NOTE | 2024-03-29 23:37 | CT Scan Report ---
Exam(s): CT HEAD Without Contrast EXAM: CT Head Without Intravenous Contrast CLINICAL HISTORY: AMS, anticoagulation. TECHNIQUE: Axial computed tomography images of the head/brain without intravenous contrast. CTDI is 39 mGy and DLP is 546.36 mGy-cm. Automated exposure control was utilized for the study. A dose lowering technique was utilized adhering to the principles of ALARA. COMPARISON: CT head without contrast dated 01/12/2024 FINDINGS: Brain: No intracranial hemorrhage. No appreciable new mass effect. Stable encephalomalacia involving the right parietal region. Stable subcortical subcentimeter calcification involving the left parietal region. Diffuse and extensive deep white matter hypodense changes noted. Ventricles: No midline shift or ventriculomegaly. Bones/joints: Unremarkable. No acute fracture. Soft tissues: Unremarkable. Sinuses: Minimal mucosal thickening involving a few ethmoid air cells. The paranasal sinuses are only minimally included. Mastoid air cells: Unremarkable as visualized. No mastoid effusion. IMPRESSION: No acute intracranial process or significant alteration from the prior examination. Stable chronic underlying findings, as noted above, not significantly altered in appearance when compared to the previous examination. Electronically signed by: Long Ennis MD 03/29/24 23:37 PM
--- NOTE | 2024-03-30 00:36 | Emergency Department Note ---
Impression & Plan Hypomagnesemia, Weakness, Acute hypokalemia ED Provider Note CHIEF COMPLAINT: Weakness, shortness of breath, poor appetite HISTORY OF PRESENT ILLNESS: This 78-year-old female patient with past medical history of atrial fibrillation, hypertension, type 2 diabetes, dyslipidemia, right MCA stroke, chronic kidney disease, tachybradycardia syndrome, congestive heart failure, presents emergency department with her family stating that she has been unusually weak over the last several days. Patient complains mostly of a diminished appetite. She states she does feel hungry, but when she puts the food in her mouth, just will go down. She complains of some shortness of breath with exertion, but denies any significant shortness of breath at rest. She denies any recent falls. She denies urinary symptoms. She denies any new medications REVIEW OF SYSTEMS: A review of systems was performed with positives and pertinent negatives listed in the history of present illness. 10 systems were reviewed and are otherwise negative. ALLERGIES: see below MEDICATIONS: see below PMH: see below SOCIAL HISTORY: see below DDx: Dehydration, UTI, intracranial hemorrhage, cardiac arrhythmia, acute coronary syndrome, intracranial hemorrhage, congestive heart failure among others. PHYSICAL EXAM: Vital signs reviewed. General: Elderly, chronically ill-appearing 78-year-old female, in no significant distress. HEENT: No scleral icterus, PERRLA, neck supple. Moist mucous membranes Cardiovascular: Rate controlled, irregular. Pulmonary: Clear to auscultation bilaterally, normal work of breathing. Abdomen: Soft, nontender, nondistended, positive bowel sounds. Musculoskeletal: Atraumatic, no peripheral edema. Neurologic: Patient awake alert and answers most questions appropriately, speech is clear Skin: Warm, dry, no rash EMERGENCY DEPARTMENT COURSE/MDM: This patient was evaluated and appeared to be in no significant distress. IV access was obtained and laboratory work was drawn. The patient was placed on the case monitor and noted to be in a demand ventricularly paced rhythm. Head CT was performed and reveals evidence of prior stroke, no evidence of acute intracranial abnormality. Laboratory work reveals a hypokalemia, hypomagnesemia, only slightly elevated high-sensitivity troponin. UA is negative for infection. Patient was given oral potassium and IV magnesium for repletion. Poor p.o. intake is likely contributing to the patient's electrolyte deficiencies. Patient will be evaluated by the hospitalist service for further management. She has expressed understanding of the plan and agrees. MONITORING: An order for cardiac monitoring was placed and the patient is noted to be in a demand ventricular pacer at 65 beats per minute. RADIOLOGY: Head CT to my interpretation reveals evidence of prior right parietal infarct, no evidence of acute intracranial hemorrhage. Otherwise defer to radiology's over read. Chest x-ray reveals evidence of cardiomegaly and pacemaker in place, no evidence of significant failure. EKG: To my interpretation reveals a demand ventricularly paced rhythm at 74 bpm. Left axis deviation, QTc of 472. LVH DISPOSITION: Admission Past Med/Surg History Problem List (Updated 04/02/24 @ 07:30 by Beth Vanegas MD) Acute hypokalemia (Acute) Weakness (Acute) Hypomagnesemia (Acute) Pneumonia Cardiac pacemaker Nonischemic cardiomyopathy Atrial fibrillation with rapid ventricular response (Acute) Dyspnea (Acute) Hypoxia (Acute) Pulmonary edema (Acute) Pleural effusion Acute on chronic HFrEF (heart failure with reduced ejection fraction) Aspiration pneumonia Pulmonary edema (Acute) Acute exacerbation of CHF (congestive heart failure) (Acute) Acute respiratory failure with hypoxia (Acute) CKD (chronic kidney disease), stage IV Tachycardia-bradycardia syndrome Paroxysmal atrial fibrillation Pneumonia (Acute) Hypoxia (Acute) Intractable nausea and vomiting (Acute) Paroxysmal atrial fibrillation with RVR (Acute) Atrial fibrillation with RVR Generalized weakness History of right MCA stroke Dyslipidemia Type 2 diabetes mellitus HTN (hypertension) (Chronic) Pain, dental (Acute) Atrial fibrillation (Chronic) Medical History Pneumonia Acute systolic (congestive) heart failure LBBB (left bundle branch block) History of adenomatous polyp of colon Degenerative disc disease, cervical Hearing loss MELQUIADES (generalized anxiety disorder) GERD without esophagitis Vitamin D deficiency Hypertensive cardiomegaly Surgical History History of D&C History of excision of lesion Back - Dr. 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 Required: No Beliefs That Will Affect Care: None marital status: / Current Living Situation: Family Current Living Situation Comment: son Feels Safe at Home: Yes Assistive Devices: Cane and Walker Allergies Allergies Allergy/AdvReac Type Severity Reaction Status Date / Time codeine Allergy Intermediate PSCHO Verified 03/29/24 23:06 COMPLICATIONS PER [facility] Home Meds Home Medications Medication Instructions Recorded Confirmed allopurinol 100 mg tablet 100 mg PO QAM 06/11/19 03/29/24 escitalopram oxalate 10 mg tablet 10 mg PO QAM 08/12/20 03/29/24 furosemide 20 mg tablet 20 mg PO BID 09/18/22 03/29/24 atorvastatin 40 mg tablet 40 mg PO HS 01/06/23 03/29/24 famotidine 20 mg tablet 20 mg PO AMHS 01/06/23 03/29/24 triamcinolone acetonide 0.05 % 0 applic topical BID PRN Skin 01/06/23 03/29/24 topical ointment Irritation albuterol sulfate 90 mcg/actuation 2 puff inhalation DIRECTED 03/28/23 03/29/24 aerosol inhaler (Ventolin HFA) levothyroxine 88 mcg tablet 88 mcg PO QAM 03/28/23 03/29/24 ondansetron 4 mg disintegrating 4 mg translingual Q8 PRN n/v 03/28/23 03/29/24 tablet apixaban 2.5 mg tablet (Eliquis) 2.5 mg PO BID 02/29/24 03/29/24 calcitriol 0.5 mcg capsule 0.5 mcg PO QAM 02/29/24 03/29/24 docusate sodium 100 mg capsule 100 mg PO BID 03/29/24 03/29/24 furosemide 20 mg tablet (Lasix) 20 mg PO [id number] 03/29/24 03/29/24 isosorbide mononitrate 30 mg 30 mg PO QAM 03/29/24 03/29/24 tablet,extended release 24 hr Previous Rx's Medication Instructions Recorded clopidogrel 75 mg tablet 75 mg PO QAM #30 tabs 02/24/20 nitroglycerin 0.4 mg sublingual 0.4 mg sublingual UD PRN chest 05/11/22 tablet (Nitrostat) pain #10 tabs digoxin 125 mcg (0.125 mg) tablet 0.125 mg PO MoWeFr@1600 #12 tabs 03/07/24 (Digitek) metoprolol succinate 50 mg 100 mg (2 x 50 mg) PO BID #120 tabs 03/07/24 tablet,extended release 24 hr magnesium oxide 400 mg (241.3 mg 400 mg PO DAILY #30 tabs 03/31/24 magnesium) tablet potassium chloride 20 mEq 20 meq PO BID #60 tabs 03/31/24 tablet,extended release Results & Data (ED) Vital Signs Vital Signs - 24 hr 03/29/24 19:47 03/29/24 19:57 03/29/24 20:01 Temperature 36.9 C Temperature Source Oral Pulse Rate 78 86 Pulse Rate from SpO2 Sensor Pulse Rhythm Regular Pulse Strength Normal Respiratory Rate 16 Respiratory Effort / Characteristics Non-Labored Respiratory Depth Normal Respiratory Pattern Regular Blood Pressure 124/102 H Blood Pressure Mean 109 Blood Pressure Position Lying Pulse Oximetry 95 95 Oxygen Delivery Method Room Air Room Air Sepsis Recent Fever Within 48 Hours No Sepsis New/Unexplained Change in Mental Status No Sepsis Action Taken by Nursing No Action Required 03/29/24 20:04 03/29/24 20:18 03/29/24 20:21 Temperature Temperature Source Pulse Rate Pulse Rate from SpO2 Sensor 79 75 Pulse Rhythm Pulse Strength Respiratory Rate Respiratory Effort / Characteristics Non-Labored Respiratory Depth Normal Respiratory Pattern Regular Blood Pressure Blood Pressure Mean Blood Pressure Position Pulse Oximetry 93 94 Oxygen Delivery Method Room Air Sepsis Recent Fever Within 48 Hours Sepsis New/Unexplained Change in Mental Status Sepsis Action Taken by Nursing 03/29/24 20:39 03/29/24 20:42 03/29/24 20:48 Temperature Temperature Source Pulse Rate 69 Pulse Rate from SpO2 Sensor 72 88 Pulse Rhythm Pulse Strength Respiratory Rate 16 Respiratory Effort / Characteristics Respiratory Depth Respiratory Pattern Blood Pressure Blood Pressure Mean Blood Pressure Position Pulse Oximetry 95 94 93 Oxygen Delivery Method Room Air Sepsis Recent Fever Within 48 Hours Sepsis New/Unexplained Change in Mental Status Sepsis Action Taken by Nursing 03/29/24 20:54 03/29/24 21:54 03/29/24 22:36 Temperature Temperature Source Pulse Rate 74 68 Pulse Rate from SpO2 Sensor 76 77 71 Pulse Rhythm Pulse Strength Respiratory Rate 24 21 Respiratory Effort / Characteristics Respiratory Depth Respiratory Pattern Blood Pressure Blood Pressure Mean Blood Pressure Position Pulse Oximetry 91 95 91 Oxygen Delivery Method Sepsis Recent Fever Within 48 Hours Sepsis New/Unexplained Change in Mental Status Sepsis Action Taken by Nursing 03/29/24 23:30 Temperature Temperature Source Pulse Rate 65 Pulse Rate from SpO2 Sensor Pulse Rhythm Pulse Strength Respiratory Rate Respiratory Effort / Characteristics Respiratory Depth Respiratory Pattern Blood Pressure Blood Pressure Mean Blood Pressure Position Pulse Oximetry Oxygen Delivery Method Sepsis Recent Fever Within 48 Hours Sepsis New/Unexplained Change in Mental Status Sepsis Action Taken by Long Term Medications Current Medication List: was personally reviewed by me Laboratory Data Attestation: I reviewed the patient's lab results. 03/31/24 05:53 03/31/24 05:53 Lab Results 03/29/24 03/29/24 Range/Units 19:40 21:05 WBC 8.15 (4.8-10.8) K/ul RBC 3.21 L (4.20-5.40) M/uL Hgb 10.3 L (12.0-16.0) g/dl Hct 32.0 L (37.0-47.0) % MCV 99.7 (80.0-100.0) fL MCH 32.1 (25.0-34.0) pg MCHC 32.2 (32.0-36.0) g/dL RDW Std Deviation 57.9 H (36.4-46.3) fL RDW Coeff of Etta 15.9 H (11.5-14.5) % Plt Count 258 (130-400) K/uL MPV 10.8 (9.4-12.4) fL Immature Gran % (Auto) 0.2 % Neut % (Auto) 56.1 % Lymph % (Auto) 26.7 % [place] % (Auto) 15.3 % Eos % (Auto) 1.2 % Baso % (Auto) 0.5 % Neut # (Auto) 4.56 (1.40-6.50) K/uL Lymph # (Auto) 2.18 (1.20-3.40) K/uL [place] # (Auto) 1.25 H (0.11-0.59) K/uL Eos # (Auto) 0.10 (0.00-0.50) K/uL Baso # (Auto) 0.04 (0.00-0.20) K/uL Immature Gran # (Auto) 0.02 (0.01-0.20) K/uL Absolute Nucleated RBC 0.02 (0.00-0.12) K/uL Nucleated RBC % (auto) 0.2 % Sodium 144 (136-145) mmol/L Potassium 2.8 L (3.5-5.1) mmol/L Chloride 112 H (98-107) mmol/L Carbon Dioxide 23 (21-32) mmol/L Anion Gap 9 (3-11) BUN 22 (6-23) mg/dl Creatinine 1.95 H (0.6-1.2) mg/dl Est Cr Clr Drug Dosing 23.4 ml/min Est GFR ( Amer) 27.9 ml/min Est GFR (Non-Af Amer) 24.0 ml/min BUN/Creatinine Ratio 11.3 (10-20) Glucose 121 H (70-99(Fasting)) mg/dl Calcium 8.1 L (8.6-10.3) mg/dl Magnesium 1.4 L (1.7-2.4) mg/dl Total Bilirubin 1.0 (0.2-1.0) mg/dl AST 12 L (13-39) U/L ALT 9 (7-52) U/L Alkaline Phosphatase 109 H (34-104) U/L Troponin I High Sens 16.8 H (0-14) pg/ml Total Protein 5.9 L (6.0-8.3) gm/dl Albumin 3.7 (3.4-5.0) gm/dl Globulin 2.2 L (2.5-4.0) gm/dl Albumin/Globulin Ratio 1.7 (0.9-2) Urine Color Yellow Urine Appearance Cloudy A (Clear) Urine pH 5.5 (4.5-7.5) Ur Specific [place] 1.010 (1.000-1.030) Urine Protein Negative (Negative) Urine Glucose (UA) Negative (Negative) Urine Ketones Negative (Negative) Urine Blood Negative (Negative) Urine Nitrite Negative (Negative) Urine Bilirubin Negative (Negative) Urine Urobilinogen Negative (Negative) Ur Leukocyte Esterase Trace H (Negative) Urine WBC (Auto) 6-10 H (0-5) /hpf Urine RBC (Auto) 0-2 (0-2) /hpf U Hyaline Cast (Auto) 6-10 H (0-2) /lpf U Epithel Cells (Auto) 3-5 H (0-2) /hpf Urine Bacteria (Auto) None Seen (None Seen) Administered Medications Discontinued Medications Allopurinol (Allopurinol 100 Mg Tab) 100 mg PO [facility] Stop: 04/29/24 08:59 Last Admin: 03/31/24 08:06 Dose: 100 mg Documented By: Admin: 03/30/24 09:08 Dose: 100 mg Documented By: VICK Apixaban (Apixaban 2.5 Mg Tab) 2.5 mg PO BID [facility] Stop: 04/29/24 08:59 Last Admin: 03/31/24 08:07 Dose: 2.5 mg Documented By: Admin: 03/30/24 20:34 Dose: 2.5 mg Documented By: Admin: 03/30/24 09:09 Dose: 2.5 mg Documented By: VICK Atorvastatin Calcium (Atorvastatin 40 Mg Tab) 40 mg PO [facility] Stop: 04/29/24 20:59 Last Admin: 03/30/24 20:34 Dose: 40 mg Documented By: ZENIA Calcitriol (Calcitriol 0.25 Mcg Capsule) 0.5 mcg PO [facility] Stop: 04/29/24 08:59 Last Admin: 03/31/24 08:06 Dose: 0.5 mcg Documented By: Admin: 03/30/24 09:08 Dose: 0.5 mcg Documented By: VICK Clopidogrel Bisulfate (Clopidogrel Bisulfate 75 Mg Tab) 75 mg PO [facility] Stop: 04/29/24 08:59 Last Admin: 03/31/24 08:07 Dose: 75 mg Documented By: Admin: 03/30/24 09:08 Dose: 75 mg Documented By: VICK Docusate Sodium (Docusate Sodium 100 Mg Cap) 100 mg PO BID [facility] Stop: 04/29/24 08:59 Last Admin: 03/31/24 08:06 Dose: Not Given Documented By: Admin: 03/30/24 20:34 Dose: 100 mg Documented By: Admin: 03/30/24 09:09 Dose: 100 mg Documented By: VICK Escitalopram Oxalate (Escitalopram Oxalate 10 Mg Tab) 10 mg PO [facility] Stop: 04/29/24 08:59 Last Admin: 03/31/24 08:06 Dose: 10 mg Documented By: Admin: 03/30/24 09:09 Dose: 10 mg Documented By: VICK Famotidine (Famotidine 20 Mg Tab) 20 mg PO AMHS [facility] Stop: 04/29/24 08:59 Last Admin: 03/31/24 08:06 Dose: 20 mg Documented By: Admin: 03/30/24 20:35 Dose: 20 mg Documented By: Admin: 03/30/24 09:09 Dose: 20 mg Documented By: VICK Furosemide (Furosemide 20 Mg Tab) 20 mg PO BID [facility] Stop: 04/29/24 08:59 Last Admin: 03/31/24 08:06 Dose: 20 mg Documented By: Admin: 03/30/24 20:34 Dose: 20 mg Documented By: Admin: 03/30/24 09:09 Dose: 20 mg Documented By: VICK Magnesium Sulfate/Dextrose (Magnesium Sulfate / D5w) 1 gm in 100 mls @ 200 mls/hr IV Q30M [facility] Stop: 03/29/24 22:23 Last Infusion: 03/29/24 23:17 Dose: Infused Documented By: Admin: 03/29/24 22:37 Dose: 200 mls/hr Documented By: Infusion: 03/29/24 22:36 Dose: Infused Documented By: DMBran Admin: 03/29/24 22:02 Dose: 200 mls/hr Documented By: KG Sodium Chloride (Nss) 1,000 mls @ 80 mls/hr IV .[id number] [facility] Stop: 04/28/24 22:44 Last Infusion: 03/30/24 08:00 Dose: Infused Documented By: Admin: 03/29/24 23:16 Dose: 80 mls/hr Documented By: KG Ceftriaxone Sodium (Rocephin) 2,000 mg in 50 mls @ 100 mls/hr IV Q24H [facility] Stop: 04/06/24 01:29 Last Infusion: 03/31/24 02:08 Dose: Infused Documented By: Admin: 03/31/24 00:58 Dose: 100 mls/hr Documented By: Infusion: 03/30/24 05:42 Dose: Infused Documented By: form building supervisor: 03/30/24 01:57 Dose: 100 mls/hr Documented By: KG Doxycycline Hyclate 100 mg/ (Dextrose) 100 mls @ 50 mls/hr IV Q12H [facility] Stop: 04/06/24 01:59 Last Infusion: 03/31/24 14:45 Dose: Infused Documented By: Admin: 03/31/24 13:10 Dose: 50 mls/hr Documented By: Infusion: 03/31/24 03:00 Dose: Infused Documented By: Admin: 03/31/24 00:58 Dose: 50 mls/hr Documented By: Infusion: 03/30/24 16:45 Dose: Infused Documented By: ИРИНА Admin: 03/30/24 14:12 Dose: 50 mls/hr Documented By: Infusion: 03/30/24 05:42 Dose: Infused Documented By: form building supervisor: 03/30/24 03:11 Dose: 50 mls/hr Documented By: MIGUEL ANGEL Insulin Aspart (Insulin Aspart Per Unit Charge) 0 units SC ACHS [facility] Stop: 04/29/24 07:29 Last Admin: 03/31/24 12:37 Dose: 1 units Documented By: JULIETH Co-signed By: REYMUNDO Admin: 03/31/24 08:40 Dose: Not Given Documented By: JULIETH Co-signed By: REYMUNDO Admin: 03/30/24 20:28 Dose: Not Given Documented By: Admin: 03/30/24 17:54 Dose: Not Given Documented By: ИРИНА Co-signed By: BOB Admin: 03/30/24 12:31 Dose: Not Given Documented By: Admin: 03/30/24 09:09 Dose: Not Given Documented By: VICK Isosorbide Mononitrate (Isosorbide [place] Extended Rel 30 Mg Tabcr) 30 mg PO QAM [facility] Stop: 04/29/24 08:59 Last Admin: 03/31/24 08:06 Dose: 30 mg Documented By: Admin: 03/30/24 09:09 Dose: 30 mg Documented By: VICK Levothyroxine Sodium (Levothyroxine Sodium 88 Mcg Tablet) 88 mcg PO DAILYBB [facility] Stop: 04/29/24 06:29 Last Admin: 03/31/24 05:40 Dose: 88 mcg Documented By: Admin: 03/30/24 06:40 Dose: 88 mcg Documented By: MIGUEL ANGEL Metoprolol Succinate (Metoprolol Succ 50mg Ext Rel Tab) 100 mg PO BID [facility] Stop: 04/29/24 08:59 Last Admin: 03/31/24 08:06 Dose: 100 mg Documented By: Admin: 03/30/24 20:33 Dose: 100 mg Documented By: Admin: 03/30/24 09:09 Dose: 100 mg Documented By: VICK Potassium Chloride (Potassium Chloride Crtab 20 Meq Tabcr) 40 meq PO NOW STA Stop: 03/29/24 21:24 Last Admin: 03/29/24 22:02 Dose: 40 meq Documented By: KG Potassium Chloride (Potassium Chloride Pwd 20 Meq Pack) 40 meq PO NOW STA Stop: 03/30/24 01:04 Last Admin: 03/30/24 01:57 Dose: 40 meq Documented By: KG Imaging Data Radiologist's Impression: Chest X-Ray 03/29/24 20:48 XR chest 1V portable CLINICAL HISTORY: Dyspnea TECHNIQUE: Single frontal radiograph of the chest was obtained. Comparison: Comparison is made to chest radiograph 03/05/2024 FINDINGS: An implanted pacemaker is seen. Cardiomegaly is noted. The aortic arch is calcified. Peribronchial thickening is seen. No evidence of pleural effusion or pneumothorax. IMPRESSION: Peribronchial thickening is seen compatible with infectious/inflammatory airways disease or viral pneumonia. No amalia consolidation is seen. Stable cardiomegaly. ACT 112: Negative or not required by law. Electronically signed by: Rd Adams M.D. 03/29/2024 9:[address] 03/29/24 20:58 Exam(s): CT HEAD Without Contrast EXAM: CT Head Without Intravenous Contrast CLINICAL HISTORY: AMS, anticoagulation. TECHNIQUE: Axial computed tomography images of the head/brain without intravenous contrast. CTDI is 39 mGy and DLP is 546.36 mGy-cm. Automated exposure control was utilized for the study. A dose lowering technique was utilized adhering to the principles of ALARA. COMPARISON: CT head without contrast dated 01/12/2024 FINDINGS: Brain: No intracranial hemorrhage. No appreciable new mass effect. Stable encephalomalacia involving the right parietal region. Stable subcortical subcentimeter calcification involving the left parietal region. Diffuse and extensive deep white matter hypodense changes noted. Ventricles: No midline shift or ventriculomegaly. Bones/joints: Unremarkable. No acute fracture. Soft tissues: Unremarkable. Sinuses: Minimal mucosal thickening involving a few ethmoid air cells. The paranasal sinuses are only minimally included. Mastoid air cells: Unremarkable as visualized. No mastoid effusion. IMPRESSION: No acute intracranial process or significant alteration from the prior examination. Stable chronic underlying findings, as noted above, not significantly altered in appearance when compared to the previous examination. Electronically signed by: Long Ennis MD 03/29/24 23:37 PM Discharge Plan Visit Data Chief Complaint: Shortness of Breath/Dyspnea Stated Complaint: SHORT OF BREATH/TIRED ED Provider: Beth Vanegas Discharge Problem: Hypomagnesemia, Weakness, Acute hypokalemia Patient Disposition: Admitted As Inpatient Discharge Instructions Interventions: ED Discharge Assessment Last Done: 03/30/24 01:03
--- NOTE | 2024-03-30 00:54 | History & Physical Report ---
Date of Service March 30, 2024 Assessment & Plan (1) Pneumonia: Plan: 78yo F with a PMH of nonischemic cardiomyopathy, EF 20-25% on echo on 05/14, tachybradycardia syndrome s/p pacemaker, paroxysmal atrial fibrillation on Eliquis, CKD IV, prediabetes, HLD, anxiety, history of CVA, dementia, GERD, Generalized anxiety disorder, amiodarone toxicity lives at home with her son and has help in the morning and ambulates without support comes because of feeling weak and not eating or drinking for last 2 days. Patient sisters in the room. Patient is alert and oriented x 3. Denies any headache. Denies cough. Denies fevers. No runny nose or sore throat. Vision is okay. No headaches. Denies any chest pain. Denies shortness of breath. Denies nausea. Denies abdominal pain. uses stool softener. Micturating okay. Patient's labs showed hypokalemia and hypomagnesia. Hemodynamics are okay. Saturating okay on room air. patient is hard of hearing. Sisters helped with H&P. Patient was recently in the hospital for rapid A-fib and acute CHF. During that hospitalization as beta-rizwan was titrated up her Imdur and amlodipine was discontinued. Today chest x-ray showing possible pneumonia. possible pneumonia possible cause of her weakness and poor appetite empiric Rocephin and Doxy will follow CT chest hypokalemia and hypomagnesia possible from poor oral intake replace follow-up repeat labs chronic systolic CHF EF of 20 to 25% nonischemic cardiomyopathy on Lasix 20 mg p.o. twice daily, on digoxin and metoprolol succinate monitor for volume overload paroxysmal atrial fibrillation tachybradycardia syndrome s/p pacemaker on digoxin and metoprolol succinate and Eliquis will monitor hypertension on metoprolol succinate seems back on Imdur will monitor CKD stage IV presented with creatinine 1.95 seems around baseline we will follow labs history of MCA stroke on Plavix and statin diabetes diet controlled will follow HbA1c levels sliding scale DVT prophylaxis on Eliquis CODE STATUS full code per discussion with sisters need to confirm as patient was DNR last admission History of Present Illness Chief Complaint: weakness Primary Care Provider: Kasandra Antunez, DO 78yo F with a PMH of nonischemic cardiomyopathy, EF 20-25% on echo on 05/14, tachybradycardia syndrome s/p pacemaker, paroxysmal atrial fibrillation on Eliquis, CKD IV, prediabetes, HLD, anxiety, history of CVA, dementia, GERD, Generalized anxiety disorder, amiodarone toxicity lives at home with her son and has help in the morning and ambulates without support comes because of feeling weak and not eating or drinking for last 2 days. Patient sisters in the room. Patient is alert and oriented x 3. Denies any headache. Denies cough. Denies fevers. No runny nose or sore throat. Vision is okay. No headaches. Denies any chest pain. Denies shortness of breath. Denies nausea. Denies abdominal pain. uses stool softener. Micturating okay. Patient's labs showed hypokalemia and hypomagnesia. Hemodynamics are okay. Saturating okay on room air. patient is hard of hearing. Sisters helped with H&P. Patient was recently in the hospital for rapid A-fib and acute CHF. During that hospitalization as beta-rizwan was titrated up her Imdur and amlodipine was discontinued. Past medical history. As mentioned above past surgical history. Left knee arthroscopy. Carpal tunnel surgery. Colonoscopy. Excision of benign lesions trunk. Repair of ventral hernia. Status post pacemaker. Cholecystectomy. Social history. . No smoking. No alcohol use. No drug use. Family history. Father had arthritis. Mother had arthritis. Uterus cancer. Diabetes. Sister has breast cancer. Sister has diabetes hypertension. Sister has valvular heart disease. Sister had hepatitis C. Son had CAD in his 30s. Allergies Allergy/AdvReac Type Severity Reaction Status Date / Time codeine Allergy Intermediate PSCHO Verified 03/29/24 23:06 COMPLICATIONS PER [facility] Home Medications Medication Instructions Recorded Confirmed Type allopurinol 100 mg tablet 100 mg PO QAM 06/11/19 03/29/24 History clopidogrel 75 mg tablet 75 mg PO QAM #30 tabs 02/24/20 03/29/24 Rx escitalopram oxalate 10 mg tablet 10 mg PO QAM 08/12/20 03/29/24 History nitroglycerin 0.4 mg sublingual 0.4 mg sublingual UD PRN chest 05/11/22 03/29/24 Rx tablet (Nitrostat) pain #10 tabs furosemide 20 mg tablet 20 mg PO BID 09/18/22 03/29/24 History atorvastatin 40 mg tablet 40 mg PO HS 01/06/23 03/29/24 History famotidine 20 mg tablet 20 mg PO AMHS 01/06/23 03/29/24 History triamcinolone acetonide 0.05 % 0 applic topical BID PRN Skin 01/06/23 03/29/24 History topical ointment Irritation albuterol sulfate 90 mcg/actuation 2 puff inhalation DIRECTED 03/28/23 03/29/24 History aerosol inhaler (Ventolin HFA) levothyroxine 88 mcg tablet 88 mcg PO QAM 03/28/23 03/29/24 History ondansetron 4 mg disintegrating 4 mg translingual Q8 PRN n/v 03/28/23 03/29/24 History tablet apixaban 2.5 mg tablet (Eliquis) 2.5 mg PO BID 02/29/24 03/29/24 History calcitriol 0.5 mcg capsule 0.5 mcg PO QAM 02/29/24 03/29/24 History digoxin 125 mcg (0.125 mg) tablet 0.125 mg PO MoWeFr@1600 #12 tabs 03/07/24 03/29/24 Rx (Digitek) metoprolol succinate 50 mg 100 mg (2 x 50 mg) PO BID #120 tabs 03/07/24 03/29/24 Rx tablet,extended release 24 hr docusate sodium 100 mg capsule 100 mg PO BID 03/29/24 03/29/24 History furosemide 20 mg tablet (Lasix) 20 mg PO [id number] 03/29/24 03/29/24 History isosorbide mononitrate 30 mg 30 mg PO QAM 03/29/24 03/29/24 History tablet,extended release 24 hr Past Med/Surg History Problem List (Updated 03/30/24 @ 01:03 by Kranthi Bear MD) Pneumonia Cardiac pacemaker Nonischemic cardiomyopathy Atrial fibrillation with rapid ventricular response (Acute) Dyspnea (Acute) Hypoxia (Acute) Pulmonary edema (Acute) Pleural effusion Acute on chronic HFrEF (heart failure with reduced ejection fraction) Aspiration pneumonia Pulmonary edema (Acute) Acute exacerbation of CHF (congestive heart failure) (Acute) Acute respiratory failure with hypoxia (Acute) CKD (chronic kidney disease), stage IV Tachycardia-bradycardia syndrome Paroxysmal atrial fibrillation Pneumonia (Acute) Hypoxia (Acute) Intractable nausea and vomiting (Acute) Paroxysmal atrial fibrillation with RVR (Acute) Atrial fibrillation with RVR Generalized weakness History of right MCA stroke Dyslipidemia Type 2 diabetes mellitus HTN (hypertension) (Chronic) Pain, dental (Acute) Atrial fibrillation (Chronic) Medical History Pneumonia Acute systolic (congestive) heart failure LBBB (left bundle branch block) History of right MCA stroke History of adenomatous polyp of colon Degenerative disc disease, cervical Dyslipidemia Hearing loss [place] (generalized anxiety disorder) GERD without esophagitis Vitamin D deficiency Hypertensive cardiomegaly Type 2 diabetes mellitus Atrial fibrillation HTN (hypertension) Surgical History History of D&C History of excision of lesion Back - Dr. Tucker History of carpal tunnel surgery History of arthroplasty of left knee History of cholecystectomy Family History Other Diabetes Heart disease Social History Smoking Status: Never smoker Second Hand Exposure: No; Do You Dip or Chew Tobacco: No; Hx Alcohol Use: No Hx Substance Use: No Preferred Language: Setswana Communication Ability: Impaired Hearing Ability: Hard of Hearing Accounts Clerk Required: No Beliefs That Will Affect Care: None marital status: / Current Living Situation: Family Current Living Situation Comment: son Feels Safe at Home: Yes Assistive Devices: Cane and Walker Review of Systems Review of Systems: All systems reviewed & are unremarkable except as noted in HPI & below Physical Exam Physical Exam: General- Not in distress Head- atraumatic Eyes- PERRL. ENT- oropharynx clear Neck- supple, no JVD. Lungs- clear to auscultation no wheezing or crackles. Heart- regular rhythm; no murmur, no gallop. Abdomen- normal bowel sounds, soft, nontender, no distension. Extremities- no pretibial edema, no erythema seen Neuro- alert, oriented x 3; PERRL, no facial palsy; no dysarthria; motor 5/5 bilaterally; co ordination of movements normal. Skin- warm & dry Results & Data Results & Data Vital Signs (Past 12 Hours) Vital Signs Temp Pulse Resp BP Pulse Ox O2 Del Method 03/29/24 23:30 65 03/29/24 22:36 68 21 91 03/29/24 21:54 74 24 95 03/29/24 20:54 91 03/29/24 20:48 69 16 93 Room Air 03/29/24 20:42 94 03/29/24 20:39 95 03/29/24 20:21 94 03/29/24 20:18 93 03/29/24 20:04 Room Air 03/29/24 20:01 95 Room Air 03/29/24 19:57 36.9 C 86 16 124/102 H 95 Room Air 03/29/24 19:47 78 Diagnostic Findings Laboratory Results WBC 8.15 K/ul (4.8-10.8) 03/29/24 19:40 RBC 3.21 M/uL (4.20-5.40) L 03/29/24 19:40 Hgb 10.3 g/dl (12.0-16.0) L 03/29/24 19:40 Hct 32.0 % (37.0-47.0) L 03/29/24 19:40 MCV 99.7 fL (80.0-100.0) 03/29/24 19:40 MCH 32.1 pg (25.0-34.0) 03/29/24 19:40 MCHC 32.2 g/dL (32.0-36.0) 03/29/24 19:40 RDW Std Deviation 57.9 fL (36.4-46.3) H 03/29/24 19:40 RDW Coeff of Etta 15.9 % (11.5-14.5) H 03/29/24 19:40 Plt Count 258 K/uL (130-400) 03/29/24 19:40 MPV 10.8 fL (9.4-12.4) 03/29/24 19:40 Immature Gran % (Auto) 0.2 % 03/29/24 19:40 Neut % (Auto) 56.1 % 03/29/24 19:40 Lymph % (Auto) 26.7 % 03/29/24 19:40 [place] % (Auto) 15.3 % 03/29/24 19:40 Eos % (Auto) 1.2 % 03/29/24 19:40 Baso % (Auto) 0.5 % 03/29/24 19:40 Neut # (Auto) 4.56 K/uL (1.40-6.50) 03/29/24 19:40 Lymph # (Auto) 2.18 K/uL (1.20-3.40) 03/29/24 19:40 [place] # (Auto) 1.25 K/uL (0.11-0.59) H 03/29/24 19:40 Eos # (Auto) 0.10 K/uL (0.00-0.50) 03/29/24 19:40 Baso # (Auto) 0.04 K/uL (0.00-0.20) 03/29/24 19:40 Immature Gran # (Auto) 0.02 K/uL (0.01-0.20) 03/29/24 19:40 Absolute Nucleated RBC 0.02 K/uL (0.00-0.12) 03/29/24 19:40 Nucleated RBC % (auto) 0.2 % 03/29/24 19:40 Sodium 144 mmol/L (136-145) 03/29/24 19:40 Potassium 2.8 mmol/L (3.5-5.1) L 03/29/24 19:40 Chloride 112 mmol/L (98-107) H 03/29/24 19:40 Carbon Dioxide 23 mmol/L (21-32) 03/29/24 19:40 Anion Gap 9 (3-11) 03/29/24 19:40 BUN 22 mg/dl (6-23) 03/29/24 19:40 Creatinine 1.95 mg/dl (0.6-1.2) H 03/29/24 19:40 Est Cr Clr Drug Dosing 23.4 ml/min 03/29/24 19:40 Est GFR ( Amer) 27.9 ml/min 03/29/24 19:40 Est GFR (Non-Af Amer) 24.0 ml/min 03/29/24 19:40 BUN/Creatinine Ratio 11.3 (10-20) 03/29/24 19:40 Glucose 121 mg/dl (70-99(Fasting)) H 03/29/24 19:40 Calcium 8.1 mg/dl (8.6-10.3) L 03/29/24 19:40 Magnesium 1.4 mg/dl (1.7-2.4) L 03/29/24 19:40 Total Bilirubin 1.0 mg/dl (0.2-1.0) 03/29/24 19:40 AST 12 U/L (13-39) L 03/29/24 19:40 ALT 9 U/L (7-52) 03/29/24 19:40 Alkaline Phosphatase 109 U/L (34-104) H 03/29/24 19:40 Troponin I High Sens 16.8 pg/ml (0-14) H 03/29/24 19:40 Total Protein 5.9 gm/dl (6.0-8.3) L 03/29/24 19:40 Albumin 3.7 gm/dl (3.4-5.0) 03/29/24 19:40 Globulin 2.2 gm/dl (2.5-4.0) L 03/29/24 19:40 Albumin/Globulin Ratio 1.7 (0.9-2) 03/29/24 19:40 Urine Color Yellow 03/29/24 21:05 Urine Appearance Cloudy (Clear) A 03/29/24 21:05 Urine pH 5.5 (4.5-7.5) 03/29/24 21:05 Ur Specific Stamps 1.010 (1.000-1.030) 03/29/24 21:05 Urine Protein Negative (Negative) 03/29/24 21:05 Urine Glucose (UA) Negative (Negative) 03/29/24 21:05 Urine Ketones Negative (Negative) 03/29/24 21:05 Urine Blood Negative (Negative) 03/29/24 21:05 Urine Nitrite Negative (Negative) 03/29/24 21:05 Urine Bilirubin Negative (Negative) 03/29/24 21:05 Urine Urobilinogen Negative (Negative) 03/29/24 21:05 Ur Leukocyte Esterase Trace (Negative) H 03/29/24 21:05 Urine WBC (Auto) 6-10 /hpf (0-5) H 03/29/24 21:05 Urine RBC (Auto) 0-2 /hpf (0-2) 03/29/24 21:05 U Hyaline Cast (Auto) 6-10 /lpf (0-2) H 03/29/24 21:05 U Epithel Cells (Auto) 3-5 /hpf (0-2) H 03/29/24 21:05 Urine Bacteria (Auto) None Seen (None Seen) 03/29/24 21:05 Impressions Chest X-Ray 03/29/24 20:48 XR chest 1V portable CLINICAL HISTORY: Dyspnea TECHNIQUE: Single frontal radiograph of the chest was obtained. Comparison: Comparison is made to chest radiograph 03/05/2024 FINDINGS: An implanted pacemaker is seen. Cardiomegaly is noted. The aortic arch is calcified. Peribronchial thickening is seen. No evidence of pleural effusion or pneumothorax. IMPRESSION: Peribronchial thickening is seen compatible with infectious/inflammatory airways disease or viral pneumonia. No amalia consolidation is seen. Stable cardiomegaly. ACT 112: Negative or not required by law. Electronically signed by: Rd Adams M.D. 03/29/2024 9:[address] 03/29/24 20:58 Exam(s): CT HEAD Without Contrast EXAM: CT Head Without Intravenous Contrast CLINICAL HISTORY: AMS, anticoagulation. TECHNIQUE: Axial computed tomography images of the head/brain without intravenous contrast. CTDI is 39 mGy and DLP is 546.36 mGy-cm. Automated exposure control was utilized for the study. A dose lowering technique was utilized adhering to the principles of ALARA. COMPARISON: CT head without contrast dated 01/12/2024 FINDINGS: Brain: No intracranial hemorrhage. No appreciable new mass effect. Stable encephalomalacia involving the right parietal region. Stable subcortical subcentimeter calcification involving the left parietal region. Diffuse and extensive deep white matter hypodense changes noted. Ventricles: No midline shift or ventriculomegaly. Bones/joints: Unremarkable. No acute fracture. Soft tissues: Unremarkable. Sinuses: Minimal mucosal thickening involving a few ethmoid air cells. The paranasal sinuses are only minimally included. Mastoid air cells: Unremarkable as visualized. No mastoid effusion. IMPRESSION: No acute intracranial process or significant alteration from the prior examination. Stable chronic underlying findings, as noted above, not significantly altered in appearance when compared to the previous examination. Electronically signed by: Long Ennis MD 03/29/24 23:37 PM ECG Additional Comments: ECG. Undetermined rhythm at rate of 74. Left axis deviation. Nonspecific infarct anterior conduction block. Code Status & VTE Plan VTE Prophylaxis Plan VTE Prophylaxis will be ordered: Yes
[2024-03-30] MEDS ORDERED: ALBUTEROL HFA 8 GM INHALER INH SCH (01:03)
[2024-03-30] MEDS ORDERED: ACETAMINOPHEN 325 MG TAB PO PRN (01:03)
[2024-03-30] MEDS ORDERED: POLYETHYLENE (MIRALAX) 17 GM PACK PO PRN (01:03)
[2024-03-30] MEDS ORDERED: NITROGLYCERIN SL 0.4 MG/TAB TAB SL PRN ×2 (01:03)
[2024-03-30] MEDS ORDERED: ONDANSETRON 4 MG OD TAB SL PRN (01:03)
[2024-03-30] MEDS ORDERED: GLUCOSE 10 TAB/TUBE PO PRN (01:13)
[2024-03-30] MEDS ORDERED: GLUCAGON FOR INJ 1 MG VIAL SQ PRN (01:13)
[2024-03-30] MEDS ORDERED: GLUCOSE 40% GEL 15 GM TUBE PO PRN (01:13)
[2024-03-30] MEDS ORDERED: CARBOHYDRATES FOR HYPOGLYCEMIA PO PRN (01:13)
[2024-03-30] MEDS ORDERED: DEXTROSE 50% 50 ML SYRINGE IV PRN (01:13)
[2024-03-30] MEDS ORDERED: TRIAMCINOLONE ACET 0.1% OINT 15 GM TUBE TOP PRN (01:18)
[2024-03-30] MEDS ORDERED: ALBUTEROL HFA 8 GM INHALER INH PRN (01:37)
[2024-03-30] MEDS: POTASSIUM CHLORIDE PWD 20 MEQ PACK PO STA (01:57)
[2024-03-30] MEDS: cefTRIAXone SODIUM 2,000 MG/50 ML BAG IV SCH (01:57)
[2024-03-30] MEDS: DOXYCYCLINE HYCLATE 100 MG in DEXTROSE 5% MINI-B 100 ML IV SCH (03:11)
--- NOTE | 2024-03-30 03:21 | CT Scan Report ---
Exam(s): CT CHEST Without Contrast EXAM: CT Chest Without Intravenous Contrast CLINICAL HISTORY: infiltrates?. TECHNIQUE: Axial computed tomography images of the chest without intravenous contrast. CTDI is 13.55 mGy and DLP is 401.9 mGy-cm. Automated exposure control was utilized for the study. A dose lowering technique was utilized adhering to the principles of ALARA. COMPARISON: No relevant prior studies available. FINDINGS: Lungs: Unremarkable. No mass. No consolidation. Pleural space: Unremarkable. No pneumothorax. No significant effusion. Heart: Heterogeneous attenuation throughout the lungs. Minimal curvilinear changes involving the anterior and medial aspect of the inferior lingular segments and left lower lobe adjacent to the cardiomegaly. No lobar consolidation. Prominent cardiomegaly with pacer leads identified in the region of the right atrium and right interventricular septum. Mild coronary artery calcification. No pericardial effusion. Bones/joints: Severe degenerative changes suggested involving the T12- L1 disc, predominantly excluded from the [id number]. The osseous structures are intact without acute traumatic injury. No dislocation. Soft tissues: Unremarkable. Vasculature: The thoracic aorta is within normal limits. No thoracic aortic aneurysm. Lymph nodes: Unremarkable. No enlarged lymph nodes. Tubes, lines and devices: The left subclavian approach dual lead pacer generator overlies the left thoracic soft tissues. IMPRESSION: Heterogeneous attenuation throughout the lungs suggests subsegmental atelectasis with a suggestion of mild air trapping. Minimal curvilinear atelectatic changes involving the anterior and medial aspect of the inferior lingular segments and left lower lobe adjacent to the cardiomegaly. No lobar consolidation. No pleural effusion or pneumothorax. Electronically signed by: Long Ennis MD 03/30/24 03:21 AM
[2024-03-30] MEDS: LEVOTHYROXINE SODIUM 88 MCG TABLET PO SCH (06:40)
--- NOTE | 2024-03-30 07:09 | Electrocardiogram Report ---
Test Reason : Blood Pressure : / mmHG Vent. Rate : 074 BPM Atrial Rate : 133 BPM P-R Int : 000 ms QRS Dur : 138 ms QT Int : 426 ms P-R-T Axes : 000 -78 089 degrees QTc Int : 472 ms Atrial fibrillation with demand ventricular pacing Left axis deviation Non-specific intra-ventricular conduction block Minimal voltage criteria for LVH, may be normal variant Cannot rule out Anteroseptal infarct (cited on or before 29-FEB-2024) Abnormal ECG Confirmed by Lionel Martin ([id number]) on 03/30/2024 7:08:58 AM Referred By: REFERRED SELF Confirmed By:Rober Martin
[2024-03-30 07:48] LABS: Basophils # (auto) 0.05 K/uL (0.00-0.20); Basophils % (auto) 0.6 %; Eosinophils # (auto) 0.08 K/uL (0.00-0.50); Hematocrit (blood only) 35.5 % (37.0-47.0); Immature Granulocytes # (auto) 0.02 K/uL (0.01-0.20); Immature Granulocytes % (auto) 0.2 %; Lymphocytes # (auto) 2.01 K/uL (1.20-3.40); Mean Corpuscular Hemoglobin 31.3 pg (25.0-34.0); Mean Corpuscular Volume 100.9 fL (80.0-100.0); Mean Platelet Volume 10.8 fL (9.4-12.4); Monocytes # (auto) 1.04 K/uL (0.11-0.59); Monocytes % (auto) 12.9 %; Neutrophils # (auto) 4.85 K/uL (1.40-6.50); Neutrophils % (auto) 60.3 %; Platelet Count 259 K/uL (130-400); RDW Coefficient of Variation 16.1 % (11.5-14.5); Red Blood Count 3.52 M/uL (4.20-5.40); White Blood Count 8.05 K/ul (4.8-10.8)
[2024-03-30 07:58] LABS: BUN Creatinine Ratio 10.9 (10-20); Creatinine Clr Calc Pharmacy 22.7 ml/min; Est GFR (African American) 26.9 ml/min; Est GFR (Non-African American) 23.2 ml/min; Magnesium 2.2 mg/dl (1.7-2.4); Potassium 4.2 mmol/L (3.5-5.1)
[2024-03-30 08:05] LABS: Troponin I High Sensitivity 21.7 pg/ml (0-14)
[2024-03-30] MEDS: CLOPIDOGREL BISULFATE 75 MG TAB PO SCH (09:08)
[2024-03-30] MEDS: allopurinoL 100 MG TAB PO SCH (09:08)
[2024-03-30] MEDS: CALCITRIOL 0.25 MCG CAPSULE PO SCH (09:08)
[2024-03-30] MEDS: DOCUSATE SODIUM 100 MG CAP PO SCH (09:09)
[2024-03-30] MEDS: ESCITALOPRAM OXALATE 10 MG TAB PO SCH (09:09)
[2024-03-30] MEDS: FAMOTIDINE 20 MG TAB PO SCH (09:09)
[2024-03-30] MEDS: ISOSORBIDE MONO EXTENDED REL 30 MG TABCR PO SCH (09:09)
[2024-03-30] MEDS: METOPROLOL SUCC 50MG EXT REL TAB PO SCH (09:09)
[2024-03-30] MEDS: APIXABAN 2.5 MG TAB PO SCH (09:09)
[2024-03-30] MEDS: INSULIN ASPART PER UNIT CHARGE SC SCH (09:09)
[2024-03-30] MEDS: FUROSEMIDE 20 MG TAB PO SCH (09:09)
[2024-03-30 10:44] LABS: Adenovirus PCR Not Detected (NotDetected); Bordetella parapertussis PCR Not Detected (NotDetected); Bordetella pertussis PCR Not Detected (NotDetected); Chlamydia pneumoniae PCR Not Detected (NotDetected); Coronavirus 229E PCR Not Detected (NotDetected); Coronavirus CoV-2 (COVID19)PCR Not Detected (NotDetected); Coronavirus HKU1 PCR Not Detected (NotDetected); Coronavirus NL63 PCR Not Detected (NotDetected); Coronavirus OC43PCR Not Detected (NotDetected); Human Metapneumovirus PCR Not Detected (NotDetected); Influenza A PCR Not Detected (NotDetected); Influenza B PCR Not Detected (NotDetected); Mycoplasma pneumoniae PCR Not Detected (NotDetected); Parainfluenza Virus 1 PCR Not Detected (NotDetected); Parainfluenza Virus 2 PCR Not Detected (NotDetected); Parainfluenza Virus 3 PCR Not Detected (NotDetected); Parainfluenza Virus 4 PCR Not Detected (NotDetected); Respiratory Syncytial VirusPCR Not Detected (NotDetected); Rhinovirus/Enterovirus PCR Not Detected (NotDetected)
--- NOTE | 2024-03-30 15:15 | Communication Note ---
Date of Service: March 30, 2024 Patient seen and examined at bedside. She is comfortably lying on the bed; not in distress. She is unsure why she is in the hospital. She denies any fever, chills, chest pain or shortness of breath Vital signs remained stable; telemetry shows atrial fibrillation with controlled heart rate On physical examination; Constitutional: Alert oriented x 3; not in distress. Respiratory: Bilateral vesicular breath sound Cardiovascular: RRR, no murmur, no edema Vessels: no JVD or carotid bruit Chest: normal inspection of chest Abdomen: normal bowel sounds, soft, nontender, no hepatosplenomegaly Musculoskeletal: no cyanosis or clubbing, extremities motor strength 5/5 Skin: no rashes, warm and dry normal turgor Neurologic: PERRL, EOMI, accommodation nl, no face palsy, no dysarthria CN's II- XI intact bilaterally and moves all extremities Psychiatric: A+Ox3, euthymic affect Assessment/plan Possible pneumonia Patient presented to the ED as her family were concerned of decreased appetite and weakness. Chest x-ray concerning for pneumonia CT chest does not show any consolidation Continue on empiric antibiotic for the time being Monitor oxygenation; supplemental oxygen if SpO2 is less than 90% Hypokalemia Hypomagnesia Likely due to poor oral intake, diuretics Repleted chronic systolic CHF EF of 20 to 25% nonischemic cardiomyopathy on Lasix 20 mg p.o. twice daily, on digoxin and metoprolol succinate monitor for volume overload paroxysmal atrial fibrillation tachybradycardia syndrome s/p pacemaker on digoxin and metoprolol succinate and Eliquis will monitor hypertension on metoprolol succinate seems back on Imdur will monitor CKD stage IV presented with creatinine 1.95 seems around baseline we will follow labs history of MCA stroke on Plavix and statin diabetes diet controlled will follow HbA1c levels sliding scale DVT prophylaxis on Eliquis Please note the above document was generated using voice recognition software. It may contain grammatical, syntax or spelling errors. Any formal questions or concerns about the content, text or information contained within the body of this dictation should be directly addressed to the provider for clarification
--- OUTSIDE RECORDS SUMMARY | 2024-03-30 15:58 | External Medical Summary | Summary of Care ---
Author Name Unknown Organization [facility] Address [address] [place] [address] Phone [phone] Care Team Providers Care Geoscience Professor Name Role Phone Kasandra Antunez DO Primary Care Provider Reason for Visit * Reason Onset Date Comments Pacemaker Check 02/23/2024 Encounter Details Date Type Department Care Team (Late st Contact Info) Description 02/23/2024 Telephone Cardiology, [facility] [address] [facility] [place] [address] Ailyn Mcelroy DO [address] [place] [address] Pacemaker Check Allergies Active Allergy Reactions Criticality Noted Date Comments Codeine Psych complications 12/05/2011 documented as of this encounter (statuses as of 03/25/2024) Medications Medication Sig Dispensed Refills Start Date End Date Status Spacer/Aero-Holding Chambers SISI Use with inhaler. 1 Device 0 01/22/2016 Active Misc. Devices Accu-check guide glucometer kit and lancets E11.9 Use daily as directed 1 Each 09/29/2020 Active Depend Adjustable Underwear Lg Use twice daily 64 Each 11 09/29/2020 Active Acetaminophen 325 MG Oral Tablet Take 1 Tablet by mouth every 6 hours as needed. Active amLODIPine Besylate 2.5 MG Oral Tablet (Norvasc)Indications: HTN, goal below 140/90 Take by mouth 1 Tablet before bedtime. 90 Tablet 3 12/16/2021 Active Rollator Ultra-Light Use as directed/needed 1 Each 07/05/2022 Active Triamcinolone Acetonide 0.5 % External Cream (Aristocort) Apply topically to affected area 2 times a day. To affected area. 60 g 5 10/11/2022 Active Accu-Chek Guide w/Device Kit Use as directed. Check sugars once daily E11.9 1 Kit 01/17/2023 Active Accu-Chek Guide In Vitro Strip [...] as of this encounter (statuses as of 03/25/2024) Active Problems Problem Noted Date Diagnosed Date Chronic heart failure with r educed ejection fraction and diastolic dysfunction 01/01/2024 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 court c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 [...] as of this encounter (statuses as of 03/25/2024) Resolved Problems Problem Noted Date Diagnosed Date Resolved Date Acute respiratory failure with hypoxia 10/08/2021 11/03/2021 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 [...] as of this encounter (statuses as of 03/25/2024) Immunizations Name Administration Dates Next Due COVID-19 [...] 10/14/2011 TDAP (age 10 and older)(Boostrix) 05/28/2023 TDAP, Age 7 and older, IM (Adacel) 03/14/2008 Varicella Zoster Vaccine (Adult) 12/07/2015 Zoster [...] encounter Miscellaneous Notes * Telephone Encounter - Leisa Concepcion RN - 02/23/2024 8:24 AM EDT Remote transmission received and reviewed. Providers see scanned reports in scans tab. Leisa Concepcion RN Normal Remote: With Events 1 Normal Device Function Events or Alerts: 35 Battery: 2.98 V , 8.83 yrs Sensing, impedance and thresholds reviewed Programmed parameters reviewed Presenting rhythm AF with V rate in 120' s Heart Rate Histograms reviewed Tachycardia: AF w/RVR 1 Stored EGMs are consistent with or suggestive of Atrial Fibrillation with Rapid Ventricular Response AT/AF [place]: 1.4% Total episodes: 30 Longest episode: 3 hours Fastest episode: 179 bpm Additional Notes: Eliquis documented in this encounter Plan of Treatment Upcoming Encounters Date Type Department Care Team (Late st Contact Info) Description 03/26/2024 11:00 AM EDT Office Visit Family Practice [facility] [address] [facility] [address] [place] [address] Kasandra Antunez DO [address] [place] [id number] 03/27/2024 2:40 PM EDT Office Visit Nephrology, [facility] [address] [place] [id number] Yehuda Eckert MD [address] [place] [id number] 04/09/2024 12:00 PM EDT Office Visit Cardiology [facility] [address] [place] [address] Maggie Sepulveda PA-C [address] [address] 08/30/2024 2:30 PM EST Office Visit Cardiology [facility] [address] [place] [address] Brian Anne MD [address] [place] [address] Scheduled Procedures Name Priority Associated Diagnoses Date/Ti [...] Referral 03/10/2024 03/10/2023, 2 HbA1c 03/23/2024 09/22/2023, 03/04/2023, 10/08/2021, Additional history exists Influenza Vaccine (FLU shot) (Season Ended) 2024 07/30/2022, 07/09/2021, 07/06/2020, Additional history exists GFR 09/15/2024 03/15/2024, 02/20, 10/19/2023, Additional history exists PTH 09/22/2024 09/22/2023, 09/0 05/2022, 01/27/2022, Additional history exists Albumin/Creatinine Ratio 09/25/20242 023, 03/24/2021, 01/22/2016, Additional history exists TSH 10/19/2024 10/19/2023, 04/22, 09/06/2022, Additional history exists Hgb 03/15/2025 03/15/2024, 02/20, 10/19/2023, Additional history exists DTaP,Tdap,and Td Vaccines (4 [...] Documents on File Type Date Recorded Patient Web Design Specialist Expl anation Advance Directives and Living Will 06/15/2022 ADVANCE DIRECTIVE / LIVING WILL Care Teams Geoscience Professor Relationship Specialty Start Date End Date Kasandra Antunez DO [address] [place] [address] PCP - General Family Medicine 10/28/11 documented as of this encounter
--- OUTSIDE RECORDS SUMMARY | 2024-03-30 15:58 | External Medical Summary | Summary of Care ---
Author Name Unknown Organization [facility] Address [address] [place] [address] Phone [phone] Care Team Providers Care Fastener Technologist Name Role Phone Kasandra Antunez DO Primary Care Provider Reason for Visit * Reason Comments Return Visit Chronic Kidney Disease (CKD) 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 Encounter Details Date Type Department Care Team (Late st Contact Info) Description 03/27/2024 2:40 PM EDT Office Visit Nephrology, [facility] Bl[facility] [address] [place] [address] Yehuda Eckert MD [address] [facility] [place] [address] CKD (chronic kidney disease) stage 4, GFR 15-29 ml/min ([facility])*; Acute systolic heart failure (HCC) Allergies Active Allergy Reactions Criticality Noted Date Comments Codeine Psych complications 12/05/2011 documented as of this encounter (statuses as of 03/27/2024) Medications Medication Sig Dispensed Refills Start Date End Date Status Spacer/Aero-Holding Chambers SISI Use with inhaler. 1 Device 0 01/22/2016 Active Additional Information Patient not taking.Reported on 03/27/2024 [facility] [place]. Devices Accu-check guide glucometer kit and lancets [...] affected area. 60 g 5 10/11/2022 Active Additional Information Patient not taking.Reported on 03/27/2024 Accu-Chek Guide w/Device Kit Use as directed. [...] THE MORNING 90 Tablet 1 02/13/2024 Active Digoxin 125 MCG Oral Tablet (Lanoxin) 1 Tablet. Takes Monday and Monday Mornings 03/07/2024 Active Docusate Sodium 100 MG Oral Capsule (Colace) 1 Capsule in the morning and 1 Capsule before bedtime. 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 Never true 03/26/20 24 Within the past 12 months, t he food you bought just didn't last and you didn't have money to get more. Never true 03/26/2024 Sex and Gender Information Value Date Recorded Sex Assigned at Not on file Gender Identity Not on file Sexual Orientation Not on file Job Start Date Occupation Industry Not on file Not on file Not on file documented as of this encounter Last Filed Vital Signs Vital Sign Reading Time Taken Comments Blood Pressure 123/71 03/27/2024 2:58 PM EDT Pulse 67 03/27/2024 2:58 PM EDT Temperature 36.9 C (98.5 F) 03/27/2024 2:58 PM ED T Respiratory Rate 20 03/27/2024 2:58 PM EDT Oxygen Saturation 95% 03/27/2024 2:58 PM EDT Inhaled Oxygen Concentration - - Weight 72.7 kg (160 lb 3.2 oz) 03/27/2024 2:58 P M EDT Height - - Body Mass Index 31.29 02/27/2024 3:15 PM EDT documented in this encounter Progress Notes * Yehuda Eckert MD - 03/27/2024 3:03 PM EDT Chief Complaint Patient presents with Return Visit Chronic Kidney Disease (CKD) 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 HPI: 78/F with CKD 4 with albuminuria follow-up. Medical history includes diabetes diagnosed approximately 2004 and with no retinopathy on November, exam, hypertension diagnosed around 1999, hyperlipidemia, severe Neck DJD, anxiety, hard of hearing (better with hearing aids), paroxysmal SVT, tubular adenoma on colonoscopy 2015. No history of hypertensive urgency or emergency. Does not check home blood pressure. No history of kidney stones. No family history of renal disease. No NSAIDs chronically now but has used in past. Note no documented coronary artery disease, heart failure, stroke/TIA. Moved to a senior community 08/2016; had some significant wt loss /lability at that move. admitted to [facility] April 2022 for respiratory failure secondary to pneumonia as well as systolic congestive heart failure. Her ejection fraction was 40%. Since Last Office Visit: ---she was admitted in more in the hospital February 29, 2024 for congestive heart failure. Dose of Lasix was increased to 20 twice daily and on 3 days she take extra tablet.She feels her breathing is back to baseline. She also spend few days at the rehab hospital. No edema at all. Her last blood work was done on March 08 as well as March 15 while she was at the rehab hospital and showed abnormal but stable creatinine of 2.1 GFR of 23. So her renal function on a lower dose of Lasix as well as higher dose of Lasix is same. Seeing Cardiology next week NSAID No Renal Stone No Herbal Medication No Urinary Complaints No Current Outpatient Medications Medication Sig Dispense Refill Misc. Devices Accu-check guide glucometer kit and [...] Ultra-Light Use as directed/needed 1 Each 0 Accu-Chek Guide w/Device Kit Use as directed. [...] DAILY IN THE MORNING 90 Tablet 1 Digoxin 125 MCG Oral Tablet (Lanoxin) 1 Tablet. Takes Monday and Monday Mornings Docusate Sodium 100 MG Oral Capsule (Colace) 1 Capsule in the morning and 1 Capsule before bedtime. Spacer/Aero-Holding Chambers SISI Use with inhaler. (Patient not taking: Reported on 03/27/2024) 1 Device 0 Triamcinolone Acetonide 0.5 % External Cream (Aristocort) Apply topically to affected area 2 times a day. To affected area. (Patient not taking: Reported on 03/27/2024) 60 g 5 No current facility-administered medications for this visit. Past Medical History: Diagnosis Date Anxiety DDD (degenerative disc disease), cervical Dr. Coulter Diabetes mellitus 2004 GERD (gastroesophageal reflux disease) HTN, goal below 130/80 Hyperlipidemia LDL goal < 100 Osteoporosis Past Surgical History: Procedure Laterality Date ARTHROSCOPY OF JOINT left knee Dr. Clark CARPAL TUNNEL SURGERY [facility] [place] Dr. Clark COLONOSCOPY, DIAGNOSTIC (RECTUM) 05/19/2016 adenomatous polyp, diverticulosis, repeat 5 yrs/[facility] D&C.EDU. EXCISE BENIGN LESION, TRUNK ARM LEG GREATER THAN 4.0 CM Lump in back by Dr. Tucker INFORMATION 11/08/2013 11/08/2013 at [facility], Repair of ventral hernia Dr. Mcnair with campus administrative assistant Freedom Valdivia PA-C PACEMAKER INSERTION PER 07/2020 PATIENT EDU, LUMPECTOMY FOR MALIGN* back REMOVE GALLBLADDER Dr. Tucker Review of patient's allergies indicates: Allergen Reactions Codeine Psych complications Family History Problem Relation Name Age of Onset Other (hepatitis C) Sister Carolina of this Diabetes Sister Millie Breast Cancer Sister Millie Other (BRCA) Sister Millie Other (Valvular heart disease) Sister Tanika Other (No CKD, ESRD, nephrolithiasis) None Other (cad) Son in his 30s Arthritis Mother Cancer Mother Uterus, age 45 Other (DM) Mother siblings Arthritis Father Diabetes Sister Kassie 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 Sister Kassie Family History of Renal Disease No Social History Socioeconomic History Marital status: Spouse name: Not on file Number of children: Not on file Years of education: Not on file Highest education level: Not on file Occupational History Not on file Social Needs Financial resource strain: Not on file Food insecurity: Worry: Not on file Inability: Not on file Transportation needs: Medical: Not on file Non-medical: Not on file Tobacco Use Smoking status: Never Smoker Smokeless tobacco: Never Used Substance and Sexual Activity Alcohol use: No Drug use: No Sexual activity: Not on file Lifestyle Physical activity: Days per week: Not on file Minutes per session: Not on file Stress: Not on file Relationships Social connections: Talks on phone: Not on file Gets together: Not on file Attends mosque service: Not on file Active member of club or organization: Not on file Attends meetings of clubs or organizations: Not on file Relationship status: Not on file Intimate partner violence: Fear of current or ex partner: Not on file Emotionally abused: Not on file Physically abused: Not on file Forced sexual activity: Not on file Other Topics Concern Not on file Social History Narrative Not on file Ambulation: No assisted device Review of Systems: 12 systems reviewed and negative OBJECTIVE: PHYSICAL EXAM: BP 123/71 (BP Site: Right Arm, BP Position: Sitting, BP Cuff Size: Regular) | Pulse 67 | Temp 36.9 C (98.5 F) (Skin) | Resp 20 | Wt 72.7 kg (160 lb 3.2 oz) | SpO2 95% | BMI 31.29 kg/m | BSA 1.75 m No resp distress Normal Speech. No edema Chest CTA CVS--RRR Abd--Sft non tender. Ext--no edema. BP Readings from Last 4 Encounters: 03/27/24 123/71 03/26/24 104/62 02/27/24 110/72 02/20/24 112/76 Wt Readings from Last 4 Encounters: 03/27/24 72.7 kg (160 lb 3.2 oz) 03/26/24 73 kg (161 lb) 02/27/24 76.5 kg (168 lb 11.2 oz) 02/20/24 76.2 kg (168 lb) Estimated body mass index is 31.29 kg/m as calculated from the following: Height as of 02/27/24: 1.524 m (5'). Weight as of this encounter: 72.7 kg (160 lb 3.2 oz). NEPH-FLOW Latest Ref Rng & Units 01/22/2016 06/15/2016 11/14/2016 Bun 6 - 20 mg/dL 25 (H) 27 (H) 22 (H) Cr 0.5 - 1.0 mg/dL 1.6 (H) 1.9 (H) 1.8 (H) eGFR >60 mL/min eGFR >60 32.3 (L) 26.6 (L) 28.8 (L) K 3.5 - 5.1 mmol/L 5.1 4.9 4.7 Hb 12.0 - 15.3 g/dL 13.9 Pro/Cr ratio <0.15 0.06 Microalb/cr ratio <30 mg/g creat <10 NEPH-FLOW Latest Ref Rng & Units 04/20/2017 01/15/2018 02/06/2018 Bun 6 - 20 mg/dL 25 (H) 22 (H) 28 (H) Cr 0.5 - 1.0 mg/dL 1.6 (H) 1.9 (H) 1.6 (H) eGFR >60 mL/min eGFR >60 32.6 (L) 26.6 (L) 30.9 (L) K 3.5 - 5.1 mmol/L 4.1 5.1 5.0 Hb 12.0 - 15.3 g/dL 12.6 Pro/Cr ratio <0.15 Microalb/cr ratio <30 mg/g creat NEPH-FLOW Latest Ref Rng & Units 11/08/2018 01/23/2019 01/23/2019 Bun 6 - 20 mg/dL 28 (H) 26 (H) 26 (H) Cr 0.5 - 1.0 mg/dL 1.8 (H) 1.6 (H) 1.6 (H) eGFR >60 mL/min eGFR >60 27.3 (L) 30.7 (L) 30.7 (L) K 3.5 - 5.1 mmol/L 4.6 4.8 4.8 Hb 12.0 - 15.3 g/dL 12.8 Pro/Cr ratio <0.15 Microalb/cr ratio <30 mg/g creat NEPH-FLOW Latest Ref Rng & Units 01/23/2019 01/23/2019 01/27/2020 Bun 6 - 20 mg/dL 26 (H) 26 (H) 21 (H) Cr 0.5 - 1.0 mg/dL 1.6 (H) 1.6 (H) 1.6 (H) eGFR >60 mL/min eGFR >60 30.7 (L) 30.7 (L) 30.5 (L) K 3.5 - 5.1 mmol/L 4.8 4.8 5.0 Hb 12.0 - 15.3 g/dL 13.2 Pro/Cr ratio <0.15 Microalb/cr ratio <30 mg/g creat NEPH-FLOW Latest Ref Rng & Units 09/16/2020 03/24/2021 05/17/2021 Bun 6 - 20 mg/dL 21 (H) 35 (H) 20 Cr 0.5 - 1.0 mg/dL 2.0 (H) 2.6 (H) 2.0 (H) eGFR >=60.0 mL/min 17.4 (L) 23.5 (L) eGFR >60 24.6 (L) K 3.5 - 5.1 mmol/L 5.5 (H) 5.8 (H) 4.5 Hb 12.0 - 15.3 g/dL 12.9 Pro/Cr ratio <150 mg/g Microalb/cr ratio <30 mg/g Creat <10 ASSESSMENT: CKD (chronic kidney disease) stage 4, GFR 15-29 ml/min ([facility]) (Primary) Hyperkalemia CKD 4 with some proteinuria from combination HTN, DM, heart Dz and Age. No need of renal biopsy. No e/o fluid overload. No Symptoms. Risk of ESRD Is moderate. DM and BP is well controlled. No NSAID use. Have given up on using Andrea/ARb/Aldactone after GFR dropped to 17 with high potassium. Reviewed her hospitalization in feb, 2024 for respiratory failure secondary to congestive heart failure systolic type She is now on Lasix 20 twice daily + extra Lasix 20 -3 times a week Renal function has not changed much in the last 2 years with GFR mostly in the mid 20s. Labs done was reviewed and shows very low GFR of 23 and a creatinine of 2.1 but these labs are similar to her labs for the last 2 years. Interestingly GFR has remained same on higher dose of Lasix. No need of dialysis right now but she is at fairly high risk in the future. NO Need of labs today. Acute systolic heart failure (HCC) Currently on Lasix 20 twice daily with an extra tablet as needed. Continue same No Andrea/ARB. Follow Up: Return in about 6 months (around 09/26/2024) for Clinic Visit. | For: Clinic Visit Yehuda Eckert MD documented in this encounter Nursing Notes * Francesca Adams LPN - 03/27/2024 2:56 PM EDT Patient identified by verbal name and date of .Return visit Pt was inpatient in [facility] 03/10/24 for cardiomyopathy Pt was on Keflex in January for cat bite to right hand Last labs 03/15/24 documented in this encounter Plan of Treatment Upcoming Encounters Date Type Department Care Team (Late st Contact Info) Description 04/02/2024 2:30 PM EDT Home Visit Care Coordination and Integration [address] [place] [address] Nlei Berg, Community Health Continuity Manager [address] [place] [address] 04/09/2024 12:00 PM EDT Office Visit Cardiology, [facility] [address] [facility] [place] [address] Maggie Sepulveda PA-C [address] [place] [address] 08/30/2024 2:30 PM EST Office Visit [facility], [facility] [address] [place] [address] Brian Anne MD [address] [place] [address] Scheduled Procedures Name Priority Associated Diagnoses Date/Ti me COLONOSCOPY FLEXIBLE PROXIMAL DIAGNOSTIC Recall History of colon polyps Health Maintenance Due Date Last Done Comments Zoster Vaccines (2 of 3) 02/01/2016 12/07/2015 Diabetic Eye Exam 11/23/2016 11/23/2015, 05/04/2011 Diabetic Foot Exam 03/23/2021 03/23/2020, 0 06/10/2019, 02/06/2018, Additional history exists Colonoscopy 05/19/2021 05/19/2016, 05/19/2016 COVID-19 Vaccine ( season) 2023 11/19/2021, 05/19/2021, 04/21/2021 Phosphate 09/06/2023 09/06/2022, 09/0 05/2022, 01/27/2022, Additional history exists HbA1c 03/23/2024 09/22/2023, 03/2 04/2023, 10/08/2021, Additional history exists Influenza Vaccine (FLU shot) (Season Ended) 2024 07/30/2022, 07/09/2021, 07/06/2020, Additional history exists GFR 09/15/2024 03/15/2024, 02/20, 10/19/2023, Additional history exists PTH 09/22/2024 09/22/2023, 09/0 05/2022, 01/27/2022, Additional history exists Albumin/Creatinine Ratio 09/25/2024 023, 03/24/2021, 01/22/2016, Additional history exists TSH 10/19/2024 10/19/2023, 04/22, 09/06/2022, Additional history exists Hgb 03/15/2025 03/15/2024, 02/20, 10/19/2023, Additional history exists Depression Screening 03/26/2025 03/26/2024 Nephrology Referral 03/27/2025 03/27/2024, 2 DTaP,Tdap,and Td Vaccines (4 - Td or [...] as of this encounter Visit Diagnoses Diagnosis CKD (chronic kidney disease) stage 4, GFR 15-29 ml/min (HCC)- Primary Chronic kidney disease, Stage IV (severe) Acute systolic heart failure (HCC) Acute systolic heart failure documented in this encounter Advance Directives Documents on File Type Date Recorded Patient Colorman Expl anation Advance Directives and Living Will 06/15/2022 ADVANCE DIRECTIVE / LIVING WILL Care Teams Fastener Technologist Relationship Specialty Start Date End Date Kasandra Antunez DO [address] [place] [address] PCP - General Family Medicine 10/28/11 documented as of this encounter"
--- OUTSIDE RECORDS SUMMARY | 2024-03-30 15:59 | External Medical Summary | Summary of Care ---
Author Name Unknown Organization [facility] Address [address] [place] [address] Phone [phone] Care Team Providers Care Pmp Name Role Phone Kasandra Antunez DO Primary Care Provider Encounter Details Date Type Department Care Team (Late st Contact Info) Description 03/18/2024 Result Scan Unspecified Department Ailyn Mcelroy DO [address] [place] [address] <No scans attached> Allergies Active Allergy Reactions Criticality Noted Date Comments Codeine Psych complications 12/05/2011 documented as of this encounter (statuses as of 03/18/2024) Medications Medication Sig Dispensed Refills Start Date [...] needed for Nausea or Vomiting. 20 Tablet 04/04/2023 Active Nitroglycerin 0.4 MG Sublingual Tablet [...] as of this encounter (statuses as of 03/18/2024) Active Problems Problem Noted Date Diagnosed Date Chronic heart failure with r educed ejection fraction and diastolic dysfunction 01/01/2024 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 property assessment monitor 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 [...] as of this encounter (statuses as of 03/18/2024) Resolved Problems Problem Noted Date Diagnosed Date Resolved Date Acute respiratory failure with hypoxia 10/08/2021 11/03/2021 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 property assessment monitor 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 [...] as of this encounter (statuses as of 03/18/2024) Immunizations Name Administration Dates Next Due COVID-19 [...] 11:00 AM EDT Office Visit Family Practice [facility] [address] [facility] [place] [address] Kasandra Antunez DO [address] [facility] [place] [address] 03/28/2024 2:40 PM EDT Office Visit Nephrology, [facility] [address] [facility] [place] [address] Yehuda Eckert MD [address] [facility] [place] [address] 08/30/2024 2:30 PM EST Office Visit Cardiology, [facility] [address] [place] [address] Brian Anne MD [address] [place] [address] Scheduled Procedures Name Priority Associated Diagnoses Date/Ti [...] 2023 11/19/2021, 05/19/2021, 04/21/2021 Phosphate 09/06/2023 09/06/2022, 090 05/2022, 01/27/2022, Additional history exists Nephrology Referral [...] Not on filedocumented as of this encounter Procedures Procedure Name Priority Date/Time Associated Diagnosis Comments CARDIOLOGY SCANNED RESULT 03/18/2024 documented in this encounter Results * CARDIOLOGY SCANNED RESULT (03/18/2024) 03/18/2024 Ailyn Mcelroy DO OTHER documented in this encounter Advance Directives Documents on File Type Date Recorded Patient Meeting Manager Expl anation Advance Directives and Living Will 06/15/2022 ADVANCE DIRECTIVE / LIVING WILL Care Teams Pmp Relationship Specialty Start Date End Date Kasandra Antunez DO [address] [place] [address] PCP - General Family Medicine 10/28/11 documented as of this encounter
--- OUTSIDE RECORDS SUMMARY | 2024-03-30 15:59 | External Medical Summary | Summary of Care ---
Author Name Unknown Organization [facility] Address [address] [place] [address] Phone [phone] Care Team Providers Care Reed Press Feeder Name Role Phone Kasandra Antunze DO Primary Care Provider Encounter Details Date Type Department Care Team (Late st Contact Info) Description 03/05/2024 Result Scan Unspecified Department Ailyn Mcelroy DO [address] [place] [address] <No scans attached> Allergies Active Allergy Reactions Criticality Noted Date Comments Codeine Psych complications 12/05/2011 documented as of this encounter (statuses as of 03/05/2024) Medications Medication Sig Dispensed Refills Start Date [...] as of this encounter (statuses as of 03/05/2024) Active Problems Problem Noted Date Diagnosed Date Chronic heart failure with r educed ejection fraction and diastolic dysfunction 01/01/2024 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 billing 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 [...] as of this encounter (statuses as of 03/05/2024) Resolved Problems Problem Noted Date Diagnosed Date Resolved Date Acute respiratory failure with hypoxia 10/08/2021 11/03/2021 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 billing adjudicator 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 [...] as of this encounter (statuses as of 03/05/2024) Immunizations Name Administration Dates Next Due COVID-19 [...] Care Team (Late st Contact Info) Description 03/28/2024 2:40 PM EDT Office Visit [facility] [address] [place] [address] Yehuda Eckert MD [facility] [place] [address] Scheduled Procedures Name Priority Associated Diagnoses Date/Ti [...] 10/08/2021, Additional history exists GFR 04/19/2024 10/19/2023, 1201/2023, 09/22/2023, Additional history exists Influenza Vaccine (FLU shot) (Season Ended) 2024 07/30/2022, 07/09/2021, 07/06/2020, Additional history exists PTH 09/22/2024 09/22/2023, 090 05/2022, 01/27/2022, Additional history exists Albumin/Creatinine Ratio 09/25/2024 023, 03/24/2021, 01/22/2016, Additional history exists Hgb 10/19/2024 10/19/2023, 120 10/2022, 09/04/2023, Additional history exists TSH 10/19/2024 [...] Date/Time Associated Diagnosis Comments CARDIOLOGY SCANNED RESULT 03/05/2024 documented in this encounter Results * CARDIOLOGY SCANNED RESULT (03/05/2024) 03/05/2024 Ailyn Mcelroy DO OTHER documented in this encounter Advance Directives Documents on File Type Date Recorded Patient Technical Project Manager Expl anation Advance Directives and Living Will 06/15/2022 ADVANCE DIRECTIVE / LIVING WILL Care Teams Reed Press Feeder Relationship Specialty Start Date End Date Kasandra Antunez DO [address] [place] [address] PCP - General Family Medicine 10/28/11 documented as of this encounter
--- OUTSIDE RECORDS SUMMARY | 2024-03-30 15:59 | External Medical Summary | Summary of Care ---
Author Name Unknown Organization [facility] Address [address] [place] [address] Phone [phone] Care Team Providers Care Stereo Operator Name Role Phone Kasandra Antunez DO Primary Care Provider Reason for Visit * Reason Onset Date Comments Appointment 03/06/2024 Encounter Details Date Type Department Care Team (Late st Contact Info) Description 03/06/2024 Telephone [facility] [address] [facility] [address] Ruby Diaz [facility] [address] [facility] [address] Appointment Allergies Active Allergy Reactions Criticality Noted Date Comments Codeine Psych complications 12/05/2011 documented as of this encounter (statuses as of 03/14/2024) Medications Medication Sig Dispensed Refills Start Date [...] all this for 10 days. 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 10/12/2022 Idiopathic gout of multiple sites 06/07/2022 Aspiration pneumonia of right lower lobe due to vomit 11/26/2021 Prediabetes 10/08/2021 NICM (nonischemic cardiomyopathy) 09/14/2021 Cardiac pacemaker in situ 2021 Dementia due to medical cond ition, without behavioral disturbance 07/20/2021 Endometrial thickening on ultrasound 07/20/2021 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 History of colon polyps 07/20/2021 Tachy-bhavik syndrome 03/24/2021 Sensorineural hearing loss (SNHL) of [...] as of this encounter (statuses as of 03/14/2024) Resolved Problems Problem Noted Date Diagnosed Date Resolved Date Acute respiratory failure with hypoxia 10/08/2021 11/03/2021 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 brand sales manager 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 [...] as of this encounter (statuses as of 03/14/2024) Immunizations Name Administration Dates Next Due COVID-19 [...] encounter Miscellaneous Notes * Telephone Encounter - Phyllis Gibbs RN - 03/14/2024 12:52 PM EDT Called, left message for patient to return call to assist in scheduling appointment. Upon return call, please assist with hospital follow up after 04/06/[address] Anne or Maggie Sepulveda if available slot. If slot not available, please see what close in ret slot for either provider works best for patientand will convert. * Telephone Encounter - Ruby Diaz CRNP - 03/06/2024 10:38 AM EDT Patient admitted to [facility] on 02/29/2024. Anticipate Discharge within the next 24 to 48 hours. Scheduling: Please assist with [facility] follow-up within the next 4-6 weeks. Patient has followed with Dr. Blanchard, Dr. Anne, Maggie Sepulveda, PA-C and under undersigned in the past. If scheduling with AP please allow 60 minutes for this appointment and label appt [facility]. Thanks, SARITHA Jarquin Cardiology progress note 03/06/2024 IMPRESSION: Complex 78-year-old female with severe nonischemic cardiomyopathy, admitted with recurrent symptomatic atrial fibrillation with a rapid ventricular response. Onset of atrial fibrillation 02/23/2024 viadevice interrogation. Amiodarone previously discontinued in December 2022 due to concerns for pulmonary toxicity. Patient chronically prescribed reduced dose Eliquis anticoagulation. Volume status appears compensated at this time. Heart rates remain uncontrolled with very limited options with prior toxicity to amiodarone, LVEF 20%, creatinine 2.5 mg/dL, systolic blood pressure in the 90's. Risks of cardioversion excessive. IMPRESSION: -Paroxysmal atrial fibrillation with RVR -Tachybradycardia syndrome status post permanent pacemaker Symptomatic atrial fibrillation with a rapid ventricular response-- currently asymptomatic Prior use of amiodarone discontinued in December 2022 due to concern for pulmonary toxicity. Tachy-Bhavik Syndrome status post permanent pacemaker implantation on August 14, 2020-- Device reprogrammed to DDD in August 2022. Generator: Medtronic Ruby XT DR DRAGAN Bajwa [id number], serial number [id number]. Right atrial lead Medtronic 5076-52 cm, serial number [id number]. Right ventricular lead, Medtronic 3830-69 cm, serial number [id number]. 1. Heart rates trending towards better control, Increase metoprolol succinate to 100 mg BID and continue oral digoxin 0.125 mg Monday given renal dysfunction. 2. Pacemaker function appropriate with intermittent pacing when heart rate slowed. 3. Maintain telemetry 4. Patient would consider AV junction ablation/device upgrade if indicated. Currently appears to betolerating medication changes, but rates trending towards better control. Will defer AVN ablation at this time I am not sure this procedure would change the patient's outcome. -Severe nonischemic cardiomyopathy Nonischemic cardiomyopathy with left ventricular ejection fraction 20% (does not have an ICD) NYHA Class 3 No signs of volume overload or edema 1. Continue furosemide as prescribed for now. documented in this encounter Plan of Treatment Upcoming Encounters Date Type Department Care Team (Late st Contact Info) Description 03/26/2024 11:00 AM EDT Office Visit [facility] [address] [place] [address] Kasandra Antunez DO [address] [place] [address] [address] 03/28/2024 2:40 PM EDT Office Visit Nephrology, [facility] [address] [place] [address] [address] Yehuda Eckert MD [address] [place] [address] Scheduled Procedures Name Priority Associated Diagnoses Date/Ti [...] 03/23/2024 09/22/2023, 12/22, 10/08/2021, Additional history exists Influenza Vaccine (FLU shot) (Season Ended) 2024 07/30/2022, 07/09/2021, 07/06/2020, Additional history exists GFR 09/08/2024 03/08/2024, 09/23, 09/25/2023, Additional history exists PTH 09/22/2024 09/22/2023, 09/0 05/2022, 01/27/2022, Additional history exists Albumin/Creatinine Ratio 09/25/2024 023, 03/24/2021, 01/22/2016, Additional history exists TSH 10/19/2024 10/19/2023, 04/22, 09/06/2022, Additional history exists Hgb 03/08/2025 03/08/2024, 09/23, 09/22/2023, Additional history exists DTaP,Tdap,and Td Vaccines (4 [...] Documents on File Type Date Recorded Patient Realtime Court Reporter Expl anation Advance Directives and Living Will 06/15/2022 ADVANCE DIRECTIVE / LIVING WILL Care Teams Stereo Operator Relationship Specialty Start Date End Date Kasandra Antunez DO [address] [place] [address] PCP - General Family Medicine 10/28/11 documented as of this encounter
--- OUTSIDE RECORDS SUMMARY | 2024-03-30 15:59 | External Medical Summary ---
Author Name Unknown Address Unknown Organization [id number]:[facility] [address] [facility] [address] Laboratory Report Ordering Provider Test Date Status JOSE ANTONIO BYRNE 03/14/2024 05:47:09 Final Recommended trough therapeut ic ranges:
0.5 to 0.8 for heart failure
0.5 to 1.1 for atrial fibrillation Observation Date Value Abnormality Reference (Units ) Status Digoxin 03/14/2024 05:47:09 1.3 Above high normal 0. 5-1.1 (ng/mL) Final Performing Location [facility] - [address] [place] [address]
--- OUTSIDE RECORDS SUMMARY | 2024-03-30 15:59 | External Medical Summary | Summary of Care ---
Author Name Unknown Organization [facility] Address [address] [place] [address] Phone [phone] Care Team Providers Care Outside Sales Account Executive Name Role Phone Harmony Kasandra Paige DO Primary Care Provider Reason for Visit * Reason Comments Follow Up Encounter Details Date Type Department Care Team (Late st Contact Info) Description 02/20/2024 10:00 AM EDT Office Visit Cardiology, [facility] [address] [facility] [place] [id number] Ruby Blandon CRNP [address] [place] [address] NICM (nonischemic cardiomyopathy) (HCC)*; CKD (chronic kidney disease) stage 4, GFR 15-29 ml/min (HCC); Chronic heart failure with reduced ejection fraction and diastolic dysfunction (HCC); Paroxysmal atrial fibrillation (HCC); Tachy-leeanne syndrome ([facility]); Cardiac pacemaker in situ; HTN, goal below 140/90 Allergies Active Allergy Reactions Criticality Noted Date Comments Codeine Psych complications 12/05/2011 documented as of this encounter (statuses as of 03/01/2024) Medications Medication Sig Dispensed Refills Start Date [...] as of this encounter (statuses as of 03/01/2024) Active Problems Problem Noted Date Diagnosed Date Chronic heart failure with r educed ejection fraction and diastolic dysfunction 01/01/2024 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 [...] as of this encounter (statuses as of 03/01/2024) Resolved Problems Problem Noted Date Diagnosed Date Resolved Date Acute respiratory failure with hypoxia 10/08/2021 11/03/2021 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 [...] as of this encounter (statuses as of 03/01/2024) Immunizations Name Administration Dates Next Due COVID-19 [...] Sign Reading Time Taken Comments Blood Pressure 112/76 02/20/2024 10:01 AM EDT Pulse 80 02/20/2024 10:01 AM EDT Temperature - - Respiratory Rate 14 02/20/2024 10:01 AM EDT Oxygen Saturation - - Inhaled Oxygen Concentration - - Weight 76.2 kg (168 lb) 02/20/2024 10:01 AM EDT Height - - Body Mass Index 32.81 10/02/2023 4:49 PM EST documented in this encounter Progress Notes * Ailyn Mcelroy DO - 03/01/2024 6:55 PM EDT I have reviewed the advanced practitioner's documentation on the date of service referenced in note, and I agree with, and take responsibility for the plan of care. Pt returns for routine EP f/u due ot TBS s/p ppm She has been doing well from a cardiac perspective She did suffer a mechanical fall No change in cardiac medications Recommend she see sleep medicine for possible CPAP vs nocturnal O2-pt wishes to think about this No change in cardiac medications Lab work ordered EP f/u 6 months Ailyn Mcelroy DO Department of Cardiology [facility] [place] [address] documented in this encounter Nursing Notes * Valentina Gresham LPN - 02/20/2024 9:58 AM EDT Examination Room: 15 Name: Nancy Gabriel Date of : 1945 Reason for Visit: Follow up Problems/Concerns: Denies complaint Interim Hosp(s): January 11 s/p mechanical fall head injury Chest Pain/SOB: denies MyChart Discussed: ALREADY ACTIVE Patient was instructed to not get up on the exam table until directed and assisted by their provider; patient is to remain seated in the chair/ wheelchair/ exam table for fall prevention and safety reasons. Patient is aware staff will assist stepping down off exam table with personnel. documented in this encounter Plan of Treatment Upcoming Encounters Date Type Department Care Team (Late st Contact Info) Description 03/28/2024 2:40 PM EDT Office Visit Nephrology, [facility] [address] [facility] [place] [address] Yehuda Eckert MD [address] [facility] [place] [address] Scheduled Orders Name Type Priority Associated Diagnoses Orde r Schedule COMPREHENSIVE METABOLIC PANEL Lab Routine NICM (nonischemic cardiomyopathy) (HCC) CKD (chronic kidney disease) stage 4, GFR 15-29 ml/min (HCC) Chronic heart failure with reduced ejection fraction and diastolic dysfunction (HCC) Expected: 02/20/2024 (Approximate), Expires: 02/19/2025 CBC Lab Routine NICM (nonischemic cardiomyopathy) (HCC) CKD (chronic kidney disease) stage 4, GFR 15-29 ml/min (HCC) Chronic heart failure with reduced ejection fraction and diastolic dysfunction (HCC) Expected: 02/20/2024 (Approximate), Expires: 02/19/2025 MAGNESIUM Lab Routine NICM (nonischemic cardiomyopathy) (HCC) CKD (chronic kidney disease) stage 4, GFR 15-29 ml/min (HCC) Chronic heart failure with reduced ejection fraction and diastolic dysfunction (HCC) Expected: 02/20/2024, Expires: 02/19/2025 PHOSPHORUS Lab Routine NICM (nonischemic cardiomyopathy) (HCC) CKD (chronic kidney disease) stage 4, GFR 15-29 ml/min (HCC) Chronic heart failure with reduced ejection fraction and diastolic dysfunction (HCC) Expected: 02/20/2024, Expires: 02/19/2025 Scheduled Procedures Name Priority Associated Diagnoses Date/Ti [...] 10/08/2021, Additional history exists GFR 04/19/2024 10/19/2023, 12/0 01/2023, 09/22/2023, Additional history exists Influenza Vaccine (FLU shot) (Season Ended) 2024 07/30/2022, 07/09/2021, 07/06/2020, Additional history exists PTH 09/22/2024 09/22/2023, 09/0 05/2022, 01/27/2022, Additional history exists Albumin/Creatinine Ratio 09/25/202404/2 023, 03/24/2021, 01/22/2016, Additional history exists Hgb 10/19/2024 10/19/2023, 12/0 10/2022, 09/04/2023, Additional history exists TSH 10/19/2024 [...] as of this encounter Visit Diagnoses Diagnosis NICM (nonischemic cardiomyopathy) (HCC)- Primary Other primary cardiomyopathies CKD (chronic kidney disease) stage 4, GFR 15-29 ml/min (HCC) Chronic kidney disease, Stage IV (severe) Chronic heart failure with reduced ejection fraction and diastolic dysfunction (HCC) Paroxysmal atrial fibrillation (HCC) Atrial fibrillation Tachy-leeanne syndrome (HCC) Sinoatrial node dysfunction Cardiac pacemaker in situ HTN, goal below 140/90 Unspecified essential hypertension documented in this encounter Advance Directives Documents on File Type Date Recorded Patient Freight Car Loader Expl anation Advance Directives and Living Will 06/15/2022 ADVANCE DIRECTIVE / LIVING WILL Care Teams Outside Sales Account Executive Relationship Specialty Start Date End Date Kasandra Antunez DO [address] [place] [address] PCP - General Family Medicine 10/28/11 documented as of this encounter
--- OUTSIDE RECORDS SUMMARY | 2024-03-30 15:59 | External Medical Summary ---
Author Name Unknown Address Unknown Organization [id number]:[facility] [place] [address] Laboratory Report Ordering Provider Test Date Status ROSE WEAVER 03/15/2024 05:29:35 Final Observation Date Value Abnormality Reference (Units ) Status WBC, Total 03/15/2024 05:29:35 8.44 4.00-10.8 0 (K/uL) Final RBC 03/15/2024 05:29:35 3.60 3.85-5.15 (M/uL) Final Hemoglobin 03/15/2024 05:29:35 11.4 Below low normal 12 .0-15.3 (g/dL) Final HCT 03/15/2024 05:29:35 37.6 36.0-45.2 (%) Final MCV 03/15/2024 05:29:35 104.4 81.5-97.5 (fL) Final MCH 03/15/2024 05:29:35 31.7 27.0-34.0 (pg) Final MCHC 03/15/2024 05:29:35 30.3 32.0-36.0 (g/dL) Final RDW 03/15/2024 05:29:35 15.4 11.5-15.5 (%) Final Platelets 03/15/2024 05:29:35 297 140-400 (K /uL) Final MPV 03/15/2024 05:29:35 11.0 6.6-11.1 ( fL) Final Performing Location [facility] [place] [address]
--- OUTSIDE RECORDS SUMMARY | 2024-03-30 15:59 | External Medical Summary ---
Author Name Unknown Address Unknown Organization [id number]:[facility] [place] [address] Laboratory Report Ordering Provider Test Date Status ROSE WEAVER 03/08/2024 05:46:50 Final Observation Date Value Abnormality Reference (Units ) Status WBC, Total 03/08/2024 05:46:50 9.39 4.00-10.8 0 (K/uL) Final RBC 03/08/2024 05:46:50 3.58 3.85-5.15 (M/uL) Final Hemoglobin 03/08/2024 05:46:50 11.5 Below low normal 12 .0-15.3 (g/dL) Final HCT 03/08/2024 05:46:50 37.3 36.0-45.2 (%) Final MCV 03/08/2024 05:46:50 104.2 81.5-97.5 (fL) Final MCH 03/08/2024 05:46:50 32.1 27.0-34.0 (pg) Final MCHC 03/08/2024 05:46:50 30.8 32.0-36.0 (g/dL) Final RDW 03/08/2024 05:46:50 15.3 11.5-15.5 (%) Final Platelets 03/08/2024 05:46:50 308 140-400 (K /uL) Final MPV 03/08/2024 05:46:50 10.8 6.6-11.1 ( fL) Final Performing Location [facility] [place] [address]
--- OUTSIDE RECORDS SUMMARY | 2024-03-30 15:59 | External Medical Summary | Summary of Care ---
Author Name Unknown Organization [facility] Address [address] [place] [address] Phone [phone] Care Team Providers Care Preform Plate Maker Name Role Phone Kasandra Antunez DO Primary Care Provider Reason for Visit * Reason Onset Date Comments Test Results 03/01/2024 Encounter Details Date Type Department Care Team ([facility] st Contact Info) Description 03/01/[address] [phone] Jesus Velazquez DO [address] [place] [address] Test Results Allergies Active Allergy Reactions Criticality Noted Date Comments Codeine Psych complications 12/05/2011 documented as of this encounter (statuses as of 03/13/2024) Medications Medication Sig Dispensed Refills Start Date [...] as of this encounter (statuses as of 03/13/2024) Active Problems Problem Noted Date Diagnosed Date Chronic heart failure with r educed ejection fraction and diastolic dysfunction 01/01/2024 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 * Telephone Encounter - Ana Rosa Haywood MED ASSIST - 03/01/2024 3:37 PM EDT Called patient, left message to return call. * Telephone Encounter - Ana Rosa Haywood MED ASSIST - 03/01/2024 3:36 PM EDT ----- Message from Jesus Velazquez DO sent at 02/29/2024 12:46 PM EDT ----- Reviewed Wrist xray. Stiffness likely related to arthritis changes found. No evidence of swelling from cat bite/scratch. Continue Keflex documented in this encounter Plan of Treatment Upcoming Encounters Date Type Department Care Team (Late st Contact Info) Description 03/28/2024 2:40 PM EDT Office Visit [facility] [address] [place] [address] Yehuda Eckert MD [address] [place] [address] Scheduled Procedures Name Priority Associated Diagnoses Date/Ti me COLONOSCOPY FLEXIBLE PROXIMAL DIAGNOSTIC Recall History of colon polyps Health Maintenance Due Date Last Done Comments Zoster Vaccines (2 of 3) 02/01/2016 12/07/2015 Diabetic Eye Exam 11/23/2016 11/23/2015, , 05/30/2013, Additional history exists Depression Screening 02/09/2021 02/10/2020 Diabetic Foot Exam 03/23/2021 03/23/2020, 0 06/10/2019, 02/06/2018, Additional history exists Colonoscopy 05/19/2021 05/19/2016, 05/19/2016 COVID-19 Vaccine ( - season) 2023 11/19/2021, 05/19/2021, 04/21/2021 Phosphate 09/06/2023 [...] Documents on File Type Date Recorded Patient Shochet Expl anation Advance Directives and Living Will 06/15/2022 ADVANCE DIRECTIVE / LIVING WILL Care Teams Preform Plate Maker Relationship Specialty Start Date End Date Kasandra Antunez DO [address] [place] [address] PCP - General Family Medicine 10/28/11 documented as of this encounter
--- OUTSIDE RECORDS SUMMARY | 2024-03-30 15:59 | External Medical Summary ---
Author Name Unknown Address Unknown Organization K09:[facility] [address] Laboratory Report Ordering Provider Test Date Status ROSE WEAVER 03/15/2024 05:29:35 Final Observation Date Value Abnormality Reference (Units ) Status BUN 03/15/2024 05:29:35 43 Above high normal 6-20 (mg/dL) Final Creatinine 03/15/2024 05:29:35 2.1 Above high normal 0.5-1.0 (mg/dL) Final Glomerular filtration rate/1.73 sq M.predicted [Volume Rate/Area] in Serum, Plasma or Blood by Creatinine-based formula (CKD-EPI) 03/15/2024 05:29:35 23 Below low normal >=60 (mL/min) Final eGFR is calculated based on the CKD-EPI 2020 equation Sodium 03/15/2024 05:29:35 144 135-146 (m mol/L) Final Potassium 03/15/2024 05:29:35 4.0 3.5-5.1 (m mol/L) Final Cl 03/15/2024 05:29:35 105 98-107 (mm ol/L) Final CO2 03/15/2024 05:29:35 25 22-32 (mmo l/L) Final Anion gap 03/15/2024 05:29:35 14 7-15 (mmol /L) Final Glucose 03/15/2024 05:29:35 101 70-120 (mg /dL) Final Calcium 03/15/2024 05:29:35 9.8 8.4-10.2 ( mg/dL) Final Performing Location [facility] [place] [address]
--- OUTSIDE RECORDS SUMMARY | 2024-03-30 15:59 | External Medical Summary | Summary of Care ---
Author Name Unknown Organization [facility] Address [address] [place] [address] Phone [phone] Care Team Providers Care Tech Intern Name Role Phone Kasandra Antunez DO Primary Care Provider Reason for Visit * Reason Onset Date Comments Appointment 03/06/2024 Encounter Details Date Type Department Care Team (Late st Contact Info) Description 03/06/2024 Telephone [facility], [facility] [address] [facility] [address] Ruby Diaz CR[facility] [address] [facility] [address] Appointment Allergies Active Allergy Reactions Criticality Noted Date Comments Codeine Psych complications 12/05/2011 documented as of this encounter (statuses as of 03/21/2024) Medications Medication Sig Dispensed Refills Start Date [...] as of this encounter (statuses as of 03/21/2024) Active Problems Problem Noted Date Diagnosed Date Chronic heart failure with r educed ejection fraction and diastolic dysfunction 01/01/2024 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 Patient is all setup for the [facility]. Caregiver is aware of the date and times. Monday Arrive by 11:45 AM Appt at 12:00 PM (30 min) * Telephone Encounter - Phyllis Gibbs RN [...] 03/06/2024 10:38 AM EDT Patient admitted to [facility] on 02/29/2024. Anticipate Discharge within the next 24 to 48 hours. Scheduling: Please assist with [facility] follow-up within the next 4-6 weeks. Patient has followed with Dr. Blanchard, Dr. Anne, Maggie Sepulveda, PAGiles and under undersigned in the past. If scheduling with AP please allow 60 minutes for this appointment and label appt [facility]. Thanks, SARITHA Jarquin Cardiology progress note 03/06/2024 [...] reprogrammed to DDD in August 2022. Generator: Post.Bid.Ship Ruby XT DR DRAGAN Bajwa [id number], serial number [id number]. Right atrial lead Medtronic 5076-52 cm, serial number [id number]. Right ventricular lead, Medtronic 3830-69 cm, serial number [id number]. 1. Heart rates trending towards better control, [...] Description 03/26/2024 11:00 AM EDT [facility] [address] [place], [place] [address] Kasandra Antunez DO [address] [facility] [place] [address] 03/28/2024 2:40 PM EDT [facility] [place] [address] [facility] [place] [address] Yehuda Eckert MD [address] [facility] [place], [place] [address] 04/09/2024 12:00 PM EDT Office Visit Cardiology, [facility] [address] [place] [address] Maggie Sepulveda PA-C [address] [place] [address] 08/30/2024 2:30 PM EST Office Visit Cardiology, [facility] [address] [facility] [address] Brian Anne MD [address] [place] [address] Scheduled Procedures Name Priority Associated Diagnoses Date/Ti [...] Documents on File Type Date Recorded Patient Appeals Nurse Expl anation Advance Directives and Living Will 06/15/2022 ADVANCE DIRECTIVE / LIVING WILL Care Teams Tech Intern Relationship Specialty Start Date End Date Kasandra Antunez DO [address] [place], [place] [address] PCP - General Family Medicine 10/28/11 documented as of this encounter
--- OUTSIDE RECORDS SUMMARY | 2024-03-30 15:59 | External Medical Summary ---
Author Name Unknown Address Unknown Organization K09:[facility] [place] [address] Laboratory Report Ordering Provider Test Date Status ROSE WEAVER 03/08/2024 05:46:50 Final Observation Date Value Abnormality Reference (Units ) Status BUN 03/08/2024 05:46:50 51 Above high normal 6-20 (mg/dL) Final Creatinine 03/08/2024 05:46:50 2.1 Above high normal 0.5-1.0 (mg/dL) Final Glomerular filtration rate/1.73 sq M.predicted [Volume Rate/Area] in Serum, Plasma or Blood by Creatinine-based formula (CKD-EPI) 03/08/2024 05:46:50 23 Below low normal >=60 (mL/min) Final eGFR is calculated based on the CKD-EPI 2020 equation Sodium 03/08/2024 05:46:50 142 135-146 (m mol/L) Final Potassium 03/08/2024 05:46:50 4.2 3.5-5.1 (m mol/L) Final Cl 03/08/2024 05:46:50 104 98-107 (mm ol/L) Final CO2 03/08/2024 05:46:50 23 22-32 (mmo l/L) Final Anion gap 03/08/2024 05:46:50 15 7-15 (mmol /L) Final Glucose 03/08/2024 05:46:50 107 70-120 (mg /dL) Final Calcium 03/08/2024 05:46:50 9.9 8.4-10.2 ( mg/dL) Final Performing Location [facility] [address]
--- OUTSIDE RECORDS SUMMARY | 2024-03-30 15:59 | External Medical Summary | Summary of Care ---
Author Name Unknown Organization [facility] Address [address] [place] [address] Phone [phone] Care Team Providers Care Clay Hoister Name Role Phone Kasandra Antunez DO Primary Care Provider Encounter Details Date Type Department Care Team (Late st Contact Info) Description 03/06/2024 Telephone Cardiology, [facility] [address] [facility] [address] Ruby Diaz CR[facility] [address] [facility] [address] Allergies Active Allergy Reactions Criticality Noted Date Comments Codeine Psych complications 12/05/2011 documented as of this encounter (statuses as of 03/08/2024) Medications Medication Sig Dispensed Refills Start Date [...] as of this encounter (statuses as of 03/08/2024) Active Problems Problem Noted Date Diagnosed Date Chronic heart failure with r educed ejection fraction and diastolic dysfunction 01/01/2024 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 Anticipate Discharge within the next 24 to 48 hours. Scheduling: Please assist with [facility] follow-up within the next 4-6 weeks. Patient has followed with Dr. Blanchard, Dr. Anne, Maggie Sepulveda PA-C and under undersigned in the past. If scheduling with [facility] please allow 60 minutes for this appointment and label appt [facility]. Thanks, SARITHA Jarquin Cardiology progress note 03/06/2024 [...] XT DR DRAGAN Bajwa [id number], serial number [id number]. Right atrial lead Medtronic 5076-52 cm, serial number [id number]. Right ventricular lead, Medtronic 3830-69 cm, serial number [id number]. 1. 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
[2024-03-30] MEDS: ATORVASTATIN 40 MG TAB PO SCH (20:34)
[2024-03-31 06:26] LABS: Basophils # (auto) 0.06 K/uL (0.00-0.20); Basophils % (auto) 0.7 %; Eosinophils # (auto) 0.21 K/uL (0.00-0.50); Eosinophils % (auto) 2.6 %; Hematocrit (blood only) 34.1 % (37.0-47.0); Hemoglobin 10.8 g/dl (12.0-16.0); Immature Granulocytes # (auto) 0.04 K/uL (0.01-0.20); Immature Granulocytes % (auto) 0.5 %; Lymphocytes # (auto) 2.44 K/uL (1.20-3.40); Lymphocytes % (auto) 30.1 %; Mean Corpuscular Hemoglobin 31.9 pg (25.0-34.0); Mean Corpuscular Hgb Conc 31.7 g/dL (32.0-36.0); Mean Corpuscular Volume 100.6 fL (80.0-100.0); Mean Platelet Volume 10.6 fL (9.4-12.4); Monocytes # (auto) 1.08 K/uL (0.11-0.59); Monocytes % (auto) 13.3 %; Neutrophils # (auto) 4.28 K/uL (1.40-6.50); Neutrophils % (auto) 52.8 %; Platelet Count 245 K/uL (130-400); RDW Coefficient of Variation 16.2 % (11.5-14.5); RDW Standard Deviation 59.8 fL (36.4-46.3); Red Blood Count 3.39 M/uL (4.20-5.40); White Blood Count 8.11 K/ul (4.8-10.8)
[2024-03-31 06:39] LABS: BUN Creatinine Ratio 10.6 (10-20); Calcium 9.3 mg/dl (8.6-10.3); Creatinine Clr Calc Pharmacy 23.7 ml/min; Est GFR (African American) 29.1 ml/min; Est GFR (Non-African American) 25.1 ml/min; Potassium 3.6 mmol/L (3.5-5.1)
--- NOTE | 2024-03-31 13:25 | Hospitalist Progress Note ---
Date of Service March 31, 2024 Assessment & Plan (1) Pneumonia: Plan: 78yo F with a PMH of nonischemic cardiomyopathy, EF 20-25% on echo on 05/14, tachybradycardia syndrome s/p pacemaker, paroxysmal atrial fibrillation on Eliquis, CKD IV, prediabetes, HLD, anxiety, history of CVA, dementia, GERD, Generalized anxiety disorder, amiodarone toxicity presents due to generalized weakness. Patient is alert and oriented x 3. Denies any headache. Denies cough. De nies fevers. No runny nose or sore throat. Vision is okay. No headaches. Denies any chest pain. Denies shortness of breath. Denies nausea. Denies abdominal pain. uses stool softener. Micturating okay. Patient's labs showed hypokalemia and hypomagnesia. Possible pneumonia Patient presented with generalized weakness and fatigue Chest x-ray concerning for possible pneumonia CT chest shows subsegmental atelectasis with mild air trapping. No lobar consolidation. Continue on empiric Rocephin and doxycycline for the time being Monitor oxygenation; supplemental oxygen if SpO2 less than 90%. Hypokalemia possible from poor oral intake replaced Hypomagnesia -Repleted Chronic systolic CHF EF of 20 to 25% nonischemic cardiomyopathy on Lasix 20 mg p.o. twice daily, on digoxin and metoprolol succinate monitor for volume overload Paroxysmal atrial fibrillation tachybradycardia syndrome s/p pacemaker on digoxin and metoprolol succinate and Eliquis will monitor on tele 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 on metoprolol succinate seems back on Imdur will monitor CKD stage IV presented with creatinine 1.95 seems around baseline we will follow labs history of MCA stroke on Plavix and statin diabetes diet controlled will follow HbA1c levels sliding scale DVT prophylaxis on Eliquis CODE STATUS full code Dispositionpatient wants to go home; case management unable to get hold of family members. PT OT pending. Time spent evaluating patient, direct bedside care, chart review, placing orders, interpretation of diagnostic studies, discussion with consultants, patient, and family members, as well as other required patient management activities is 50 minutes Please note the above document was generated using voice recognition software. It may contain grammatical, syntax or spelling errors. Any formal questions or concerns about the content, text or information contained within the body of this dictation should be directly addressed to the provider for clarification Admission and Anticipated Discharge Date Admission Date: March 30, 2024 Subjective Patient seen and examined at bedside. She is comfortable lying in the bed; not in distress. Vital signs stable and she is saturating well on room air She wants to go home. Case management informed; unable to get a hold of family at this time. Review of Systems Review of Systems: All systems reviewed & are unremarkable except as noted in Subjective Physical Exam Physical Exam: General- Not in distress Head- atraumatic Eyes- PERRL. ENT- oropharynx clear Neck- supple, no JVD. Lungs- clear to auscultation no wheezing or crackles. Heart- regular rhythm; no murmur, no gallop. Abdomen- normal bowel sounds, soft, nontender, no distension. Extremities- no pretibial edema, no erythema seen Neuro- alert, oriented x 3; PERRL, no facial palsy; no dysarthria; motor 5/5 bilaterally; co ordination of movements normal. Skin- warm & dry Results & Data Results & Data Vital Signs (Past 12 Hours) Vital Signs Temp Pulse Pulse Resp BP Pulse Ox O2 Del Method 03/31/24 11:07 36.4 C L 71 16 114/70 94 Room Air 03/31/24 07:43 36.7 C 75 16 129/66 97 Room Air 03/31/24 06:23 59 L 03/31/24 02:54 36.5 C 75 16 133/63 94 Room Air
--- NOTE | 2024-03-31 14:12 | Discharge Summary ---
Date of Service March 31, 2024 Admission HPI Per Admitting Provider 78yo F with a PMH of nonischemic cardiomyopathy, EF 20-25% on echo on 05/14, tachybradycardia syndrome s/p pacemaker, paroxysmal atrial fibrillation on Eliquis, CKD IV, prediabetes, HLD, anxiety, history of CVA, dementia, GERD, Generalized anxiety disorder, amiodarone toxicity lives at home with her son and has help in the morning and ambulates without support comes because of feeling weak and not eating or drinking for last 2 days. Patient sisters in the room. Patient is alert and oriented x 3. Denies any headache. Denies cough. Denies fevers. No runny nose or sore throat. Vision is okay. No headaches. Denies any chest pain. Denies shortness of breath. Denies nausea. Denies abdominal pain. uses stool softener. Micturating okay. Patient's labs showed hypokalemia and hypomagnesia. Hemodynamics are okay. Saturating okay on room air. patient is hard of hearing. Sisters helped with H&P. Patient was recently in the hospital for rapid A-fib and acute CHF. During that hospitalization as beta-rizwan was titrated up her Imdur and amlodipine was discontinued. Past medical history. As mentioned above past surgical history. Left knee arthroscopy. Carpal tunnel surgery. Colonoscopy. Excision of benign lesions trunk. Repair of ventral hernia. Status post pacemaker. Cholecystectomy. Social history. . No smoking. No alcohol use. No drug use. Family history. Father had arthritis. Mother had arthritis. Uterus cancer. Diabetes. Sister has breast cancer. Sister has diabetes hypertension. Sister has valvular heart disease. Sister had hepatitis C. Son had CAD in his 30s. Admission Exam Per Admitting Provider General- Not in distress Head- atraumatic Eyes- PERRL. ENT- oropharynx clear Neck- supple, no JVD. Lungs- clear to auscultation no wheezing or crackles. Heart- regular rhythm; no murmur, no gallop. Abdomen- normal bowel sounds, soft, nontender, no distension. Extremities- no pretibial edema, no erythema seen Neuro- alert, oriented x 3; PERRL, no facial palsy; no dysarthria; motor 5/5 bilaterally; co ordination of movements normal. Skin- warm & dry Principal Diagnosis Generalized weakness Hypokalemia Hypomagnesemia Discharge Exam General- Not in distress Head- atraumatic Eyes- PERRL. ENT- oropharynx clear Neck- supple, no JVD. Lungs- clear to auscultation no wheezing or crackles. Heart- regular rhythm; no murmur, no gallop. Abdomen- normal bowel sounds, soft, nontender, no distension. Extremities- no pretibial edema, no erythema seen Neuro- alert, oriented x 3; PERRL, no facial palsy; no dysarthria; motor 5/5 bilaterally; co ordination of movements normal. Skin- warm & dry Discharge Data Allergies Allergy/AdvReac Type Severity Reaction Status Date / Time codeine Allergy Intermediate PSCHO Verified 03/29/24 23:06 COMPLICATIONS PER [facility] Consultations 03/29/24 23:02 ED Decision to Admit Stat Ordered Studies 03/29/24 20:58 CT head/brain wo con Stat 03/30/24 01:03 CT chest diagnostic wo con Routine Hospital Course (1) Pneumonia: Possible Pneumonia, ruled out Hypokalemia Hypomagnesemia 78yo F with a PMH of nonischemic cardiomyopathy, EF 20-25% on echo on 05/14, tachybradycardia syndrome s/p pacemaker, paroxysmal atrial fibrillation on Eliquis, CKD IV, prediabetes, HLD, anxiety, history of CVA, dementia, GERD, Generalized anxiety disorder, amiodarone toxicity presents due to generalized weakness. Patient is alert and oriented x 3. Denies any headache. Denies cough. Denies fevers. No runny nose or sore throat. Vision is okay. No headaches. Denies any chest pain. Denies shortness of breath. Denies nausea. Denies abdominal pain. uses stool softener. Micturating okay. Patient's labs showed hypokalemia and hypomagnesia. Chest x-ray was concerning for possible pneumonia. However, CT scan did not show any lobar consolidation symptoms suggest mild air trapping and atelectasis. The likely cause for the hypokalemia and hypomagnesemia is thought secondary to diuretic use. Patient was provided potassium and magnesium supplements. Patient was vitally stable, afebrile and saturating well in room air at the time of the discharge. She was alert oriented x 3. Discussed with patient's sister at the time of the discharge. Patient to follow-up with her primary care doctor. Please note the above document was generated using voice recognition software. It may contain grammatical, syntax or spelling errors. Any formal questions or concerns about the content, text or information contained within the body of this dictation should be directly addressed to the provider for clarification Total Time Total Time Spent Total Time Spent (In Minutes): 34 Total Time Includes: Examination of the Patient, Discharge Planning, Medication Reconciliation, Communication With Other Providers and Other Discharge Plan Discharge Items Patient Disposition: Home - Self-Care Reason For Visit: WEAKNESS, POSSIBLE PNEUMONIA Discharge Diagnosis: Hypokalemia Activity: Resume your previous activity Non-emergency contact: Primary Care Provider Call non-emergency contact if: you have any medication questions and your symptoms worsen Follow-up/Referrals: Kasandra Antunez, [Primary Care Provider] - Diet: Regular Addtl Attending Provider Instructions: You were admitted to the hospital due to weakness and decreased oral intake. You are found to have low potassium level And magnesium level You are prescribed potassium tablets 20 mEq to be taken twice a day. You Are also Prescribed Magnesium to be taken once a day An appointment with your primary care doctor will be set up. Please follow-up to the appointment. Pending Studies at Discharge: No Stand-Alone Forms: My [place] EXTENDED STAYS, Smoking Cessation Medications and DC Order Prescriptions: New magnesium oxide 400 mg (241.3 mg magnesium) tablet 400 mg PO DAILY Qty: 30 0RF potassium chloride 20 mEq tablet extended release 20 meq PO BID Qty: 60 0RF Continued clopidogrel 75 mg Tablet 75 mg PO QAM Qty: 30 0RF escitalopram oxalate 10 mg tablet 10 mg PO QAM allopurinol 100 mg tablet 100 mg PO QAM furosemide 20 mg tablet 20 mg PO BID Rx Instructions: MAY TAKE ADDITIONAL DOSE IF NEEDED PER [facility] levothyroxine 88 mcg tablet 88 mcg PO QAM albuterol sulfate [Ventolin HFA] 90 mcg/actuation HFA aerosol inhaler 2 puff INHALATION DIRECTED ondansetron 4 mg tablet,disintegrating 4 mg translingual Q8 PRN (Reason: n/v) nitroglycerin [Nitrostat] 0.4 mg Tablet, Sublingual 0.4 mg sublingual UD PRN (Reason: chest pain) Qty: 10 0RF Rx Instructions: last filled 04/[address]23 place under tongue 0.4mg every 5 minutes as needed for pain,chest famotidine 20 mg Tablet 20 mg PO [facility]HS triamcinolone acetonide 0.05 % Ointment 0 applic TOPICAL BID PRN (Reason: Skin Irritation) Rx Instructions: not on list from pharmacy or on fill history. unable to verify atorvastatin 40 mg tablet 40 mg PO HS Rx Instructions: (40 mg daily) on hold at pharmacy 02/29/24 calcitriol 0.5 mcg capsule 0.5 mcg PO QAM Eliquis 2.5 mg tablet 2.5 mg PO BID digoxin [Digitek] 125 mcg (0.125 mg) Tablet 0.125 mg PO [id number] Qty: 12 0RF metoprolol succinate 50 mg Tablet Extended Release 24 Hr 100 mg PO BID Qty: 120 0RF isosorbide mononitrate 30 mg tablet extended release 24 hr 30 mg PO QAM docusate sodium 100 mg capsule 100 mg PO BID furosemide [Lasix] 20 mg Tablet 20 mg PO [id number] Rx Instructions: This is in addition to reg scheduled lasix. There was only 12 pills of this new order filled on 03/20/24. Discharge Orders: Discharge Order (Routine); Ordered 03/31/24 Ordered By: Umesh Ortega Admission Data Admit Date/Time: 03/30/24 00:33 Attending Provider: Umesh Ortega Admit Provider: Kranthi Bear Primary Care Provider: Kasandra Antunez Other Providers: Kranthi Bear
[2024-04-01] MEDS ORDERED: FUROSEMIDE 20 MG TAB PO SCH (09:00)
[2024-04-01] MEDS ORDERED: DIGOXIN 0.125 MG TAB PO SCH (16:00)
== END 2024-03-31 14:48 | disposition home or self-care (01) | DRG 641 ==
LOC: ED 19:30 → EDINP 03-30 00:33 → INTOOBSV 03-30 00:33 → 2N 03-30 01:03

== ENCOUNTER 2024-04-27 21:26 | Inpatient (IN) ==
--- OUTSIDE RECORDS SUMMARY | 2024-04-27 21:33 | External Medical Summary | Summary of Care ---
Author Name Unknown Organization [facility] Address [address] [place] [address] Phone [phone] Care Team Providers Care Gear Room Keeper Name Role Phone Kasandra Antunez Primary Care Provider Reason for Visit * Reason Onset Date Comments Pacemaker Clinic 04/16/2024 Encounter Details Date Type Department Care Team (Late st Contact Info) Description 04/16/2024 Telephone Cardiology, [facility] [address] [place] [address] [place] [address] [place] [address] Pacemaker Clinic Allergies Active Allergy Reactions Criticality Noted Date Comments Codeine Psych complications 12/05/2011 documented as of this encounter (statuses as of 04/16/2024) Medications Medication Sig Dispensed Refills Start Date End Date Status Spacer/Aero-Holding Chambers SISI Use with inhaler. 1 Device 0 01/22/2016 Active Misc. Devices Accu-check guide glucometer kit and lancets E11.9 Use daily as directed 1 Each 09/29/2020 Active Acetaminophen 325 MG Oral Tablet Take 1 Tablet by mouth every 6 hours as needed. Active amLODIPine Besylate 2.5 MG Oral Tablet (Norvasc)Indications :HTN, goal below 140/90 Take by mouth 1 Tablet before bedtime. 90 Tablet 3 12/16/2021 Active Additional Information Patient not taking.Reported on 04/11/2024 Rollator Ultra-Light Use as directed/needed 1 Each 07/05/2022 Active Triamcinolone Acetonide 0.5 % External Cream (Aristocort) Apply topically to affected area 2 times a day. To affected area. 60 g 5 10/11/2022 Active Ondansetron 4 MG Oral Tablet Disintegrating (Zofran) Place 1 Tablet under the tongue every 8 hours as needed for Nausea or Vomiting. 20 Tablet 11 04/04/2023 Active Nitroglycerin 0.4 MG Sublingual Tablet Sublingual (Nitrostat)Indicatio ns:NICM (nonischemic cardiomyopathy) (HCC) Place 1 Tablet under the tongue every 5 minutes as needed for Pain, Chest. 25 Tablet 5 05/08/2023 Active Calcitriol 0.5 MCG Oral Capsule (Rocaltrol)Indicatio [...] THE MORNING 90 Tablet 1 02/13/2024 Active Docusate Sodium 100 MG Oral Capsule (Colace) 1 Capsule in the morning and 1 Capsule before bedtime. 03/15/2024 Active Accu-Chek Softclix Lancets Check sugars once daily E11.9 100 Each 3 04/02/2024 Active Accu-Chek Guide w/Device Kit Use as directed. Check sugars once daily E11.9 1 Kit 04/02/2024 Active Accu-Chek Guide In Vitro Strip (Glucose Blood) Check sugars once daily E11.9 100 Strip 3 04/02/2024 Active Metoprolol Succinate ER 100 MG Oral Tablet Extended Release 24 Hour (toPROL XL) Take 1 Tablet by mouth in the morning and 1 Tablet before bedtime. 03/26/2024 Active Furosemide 20 MG Oral Tablet (Lasix) Take 1 Tablet by mouth in the morning. 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 Never true 04/10/20 24 Within the past 12 months, t he food you bought just didn't last and you didn't have money to get more. Never true 04/10/2024 Childcare Answer Date Recorded Do you feel overwhelmed with taking care of a child, family member or friend? No 04/10/2024 Does your family need help f inding childcare? (Household - for ages 0-17 years) Not on file 04/10/2024 Clothing Answer Date Recorded Have you been unable to get clothing when it was really needed? No 04/10/2024 Is your family able to get c lothes or diapers when needed? (Household - for ages 0-17 years) Not on file 04/10/2024 Personal Safety Answer Date Recorded Do you feel unsafe or have concerns for your saf ety? No 04/10/2024 Do you have concerns for you r family's safety? (Household - for ages 0-17 years) Not on file 04/10/2024 Utilities Answer Date Recorded Do you have trouble paying y our heating, water, or electric bill? No 04/10/2024 Is your family able to pay t he heat, water, or electric bill? (Household - for ages 0-17 years) Not on file 04/10/2024 Does your family have access to good internet? (Household - for ages 0-17 years) Not on file 04/10/2024 Employment Status Answer Date Recorded Are you unemployed or without regular income? No 04/10/2024 Does the household have a re gular source of income? (Household - for ages 0-17 years) Not on file 04/10/2024 Social Connections Answer Date Recorded How often do you feel lonely or isolated from th ose around you? Never 04/10/2024 Financial Resource Strain Answer Date R ecorded Do you have any trouble payi ng for your medications, or do you think you might in the future? No 04/10/2024 Does your family have troubl e paying for medicine? (Household - for ages 0-17 years) Not on file 04/10/2024 Transportation Needs Answer Date Record ed READ ONLY Do you have troubl e getting a ride to medical visits or work? Never True 04/10/2024 Does your family have a hard time getting a ride to doctors visits? (Household - for ages 0-17 years) Not on file 04/10/2024 Has lack of transportation k ept you from medical appointments, meetings, work, or from getting things needed for daily living? Check all that apply. No 04/10/2024 Do you (or your family) have trouble finding or paying for a ride (transportation)? (Household - for ages 0-17 years) Not on file 04/10/2024 Housing Stability Answer Date Recorded Do you currently live in a s helter or have no steady place to sleep at night? No 04/10/2024 READ ONLY Do you think you a re at risk of becoming homeless? No 04/10/2024 Does your family worry about paying for your home or becoming homeless? (Household - for ages 0-17 years) Not on file 0 04/10/2024 Are you homeless or worried that you might be in the future? No 04/10/2024 Are you (or your family) zi eless or worried that you might be in the future? (Household - for ages 0-17 years) Not on file Food Insecurity Answer Date Recorded Do you need food for this week? No 04/10/2024 Are you able to get enough f ood for your family? (Household - for ages 0-17 years) Not on file 04/10/2024 Does your family need food t his week? (Household - for ages 0-17 years) Not on file 04/10/2024 Do you always have enough fo od for your family? (Household - for ages 0-17 years) Not on file 04/10/2024 Sex and Gender Information Value Date Recorded Sex Assigned at Not on file Gender Identity Not on file Sexual Orientation Not on file Job Start Date Occupation Industry Not on file Not on file Not on file documented as of this encounter Plan of Treatment Upcoming Encounters Date Type Department Care Team (Late st Contact Info) Description 04/23/2024 9:45 AM EDT Scheduled Telephone Care Coordination and Integration [address] [place] [address] Carmelina Crane, [facility] [employer] [address] [place] [address] 08/30/2024 2:30 PM EST Office Visit Cardiology, [facility] [address] [place] [id number] Brian Anne MD [address] [place] [address] Scheduled Procedures Name Priority Associated Diagnoses Date/Ti me COLONOSCOPY FLEXIBLE PROXIMAL DIAGNOSTIC Recall History of colon polyps Health Maintenance Due Date Last Done Comments Zoster Vaccines (2 of 3) 02/01/2016 12/07/2015 Diabetic Eye Exam 11/23/2016 11/23/2015, 05/04/2011 Diabetic Foot Exam 03/23/2021 03/23/2020, 0 06/10/2019, 02/06/2018, Additional history exists Colonoscopy 05/19/2021 05/19/2016, 05/19/2016 COVID-19 Vaccine ( season) 2023 07/21/2023, 09/29/2022, 11/19/2021, Additional history exists PTH 09/22/2024 09/22/2023, 0905/2022, 01/27/2022, Additional history exists Albumin/Creatinine Ratio 09/25/20242 023, 03/24/2021, 01/22/2016, Additional history exists HbA1c 10/09/2024 04/09/2024, 1210/2022, 01/16/2023, Additional history exists GFR 10/13/2024 04/13/2024, 03/23, 03/15/2024, Additional history exists TSH 10/19/2024 10/19/2023, 04/22, 09/06/2022, Additional history exists Depression Screening 03/26/2025 03/26/2024 Nephrology Referral 03/27/2025 03/27/2024, 2 Hgb 04/09/2025 04/09/2024, 02/21, 03/08/2024, Additional history exists Phosphate 04/09/2025 04/09/2024, 08/23, 06/30/2022, Additional history exists DTaP,Tdap,and Td Vaccines (4 - Td or Tdap) 05/28/2033 05/28/2023, 10/14/2011, 10/14/2011, Additional history exists RETIRED - COLONOSCOPY-EVERY 5 YRS AGES 18-100 Discontinued 05/19/2016, 05/19/2016 Influenza Vaccine (FLU shot) Completed 07/08/2023, 07/30/2022, 07/09/2021, Additional history exists Pneumococcal Vaccine: 65+ Years Completed 04/11/2024, 08/03/2015, 09/09/2013, Additional history exists GARDASIL-HPV IMMUNIZATION SERIES Aged [...] Documents on File Type Date Recorded Patient Hull Drafter Expl anation Power of Labor Relations Specialist 04/08/2024 signed on 04/05/2024 POWER OF DEFECTIVE CIGARETTE SLITTER Advance Directives and Living Will 06/15/2022 ADVANCE DIRECTIVE / LIVING WILL Healthcare Agents on File Name Relationship Healthcare Agent Relationship Communication Rajeev "Reginald" Chronister Adult Child Health C are Hull Drafter (appointed verbally by patient or by statute hierarchy) Care Teams Gear Room Keeper Relationship Specialty Start Date End Date Kasandra Antunez DO [address] [place] [address] PCP - General Family Medicine 10/28/11 documented as of this encounter
--- OUTSIDE RECORDS SUMMARY | 2024-04-27 21:33 | External Medical Summary | Summary of Care ---
Author Name Unknown Organization [facility] Address [address] [place] [address] Phone [phone] Care Team Providers Care Digital Marketing Strategist Name Role Phone Kasandra Antunez DO Primary Care Provider Reason for Visit * Reason Comments Hospital Follow-Up Pt discharged from [facility] on 03/31. Caregiver reports she is doing OK since then. Case management would also like to speak about meds following appt. Encounter Details Date Type Department Care Team (Late st Contact Info) Description 04/11/2024 11:00 AM EDT Office Visit [facility] [address] [facility] [place] [address] Kasandra Antunez DO [address] [place] [address] Chronic heart failure with reduced ejection fraction and diastolic dysfunction (HCC)*; CKD (chronic kidney disease) stage 4, GFR 15-29 ml/min (HCC); Cardiomyopathy due to hypertension, with heart failure (HCC); 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 (HCC); Prediabetes; Need for pneumococcal vaccination; Cardiac pacemaker in situ; Chronic ischemic right MCA stroke; 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 1 Device 0 6 Active Misc. Devices Accu-check guide glucometer kit and lancets E11.9 Use daily as directed 1 Each 0 Active Acetaminophen 325 MG Oral Tablet Take 1 Tablet by mouth every 6 hours as needed. Active amLODIPine Besylate 2.5 MG Oral Tablet (Norvasc)Indicatio ns:HTN, goal below 140/90 Take by mouth 1 Tablet before bedtime. 90 Tablet 3 2 Active Additional Information Patient not taking.Reported on 04/11/2024 Rollator Ultra-Light Use as directed/needed 1 Each 2 Active Triamcinolone Acetonide 0.5 % External Cream (Aristocort) Apply topically to affected area 2 times a day. To affected area. 60 g 5 2 Active Ondansetron 4 MG Oral Tablet Disintegrating (Zofran) Place 1 Tablet under the tongue every 8 hours as needed for Nausea or Vomiting. 20 Tablet 11 3 Active Nitroglycerin 0.4 MG Sublingual Tablet Sublingual (Nitrostat)Indicat ions:NICM (nonischemic cardiomyopathy) (HCC) Place 1 Tablet under the tongue every 5 minutes as needed for Pain, Chest. 25 Tablet 5 3 Active Calcitriol 0.5 MCG Oral Capsule (Rocaltrol)Indicat ions:Vitamin D deficiency Take 1 Capsule by mouth in the morning. 3 Capsule 11 3 Active Ventolin HFA 108 (90 Base) MCG/ACT Inhalation Aerosol SolutionIndication s:Cough INHALE 2 PUFFS IN THE MORNING, 2 PUFFS AT NOON, 2 PUFFS IN THE EVENING AND 2 PUFFS AT BEDTIME 54 g 3 4 Active Allopurinol 100 MG Oral Tablet (Zyloprim)Indicati ons:Gout of big toe TAKE 1 TABLET BY MOUTH ONCE DAILY IN THE MORNING 30 Tablet 5 4 Active Levothyroxine Sodium 88 MCG Oral Tablet (Levoxyl) TAKE 1 TABLET BY MOUTH ONCE DAILY IN THE MORNING AT LEAST 30 MINUTES PRIOR TO BREAKFAST OR OTHER MEDS 90 Tablet 1 4 Active Clopidogrel Bisulfate 75 MG Oral Tablet (pLAVix)Indication s:Chronic ischemic right MCA stroke,Cardiac pacemaker in situ [...] THE MORNING 90 Tablet 1 4 Active Docusate Sodium 100 MG Oral Capsule (Colace) 1 Capsule in the morning and 1 Capsule before bedtime. 4 Active Accu-Chek Softclix Lancets Check sugars once daily E11.9 100 Each 3 4 Active Accu-Chek Guide w/Device Kit Use as directed. Check sugars once daily E11.9 1 Kit 4 Active Accu-Chek Guide In Vitro Strip (Glucose Blood) Check sugars once daily E11.9 100 Strip 3 4 Active Metoprolol Succinate ER 100 MG Oral Tablet Extended Release 24 Hour (toPROL XL) Take 1 Tablet by mouth in the morning and 1 Tablet before bedtime. 4 Active Furosemide 20 MG Oral Tablet (Lasix) Take 1 Tablet by mouth in the morning. 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 Chronic heart failure with r educed ejection fraction and diastolic dysfunction 01/01/2024 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 spot facer 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 [...] as of this encounter (statuses as of 04/21/2024) Resolved Problems Problem Noted Date Diagnosed Date Resolved Date Acute respiratory failure with hypoxia 10/08/2021 11/03/2021 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 spot facer 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 [...] as of this encounter (statuses as of 04/21/2024) Immunizations Name Administration Dates Next Due COVID-19 mRNA, LNP-s, No Pre serve, 2-Dose Series (Moderna) 11/19/2021,05/19/2021,04/21/2021 Pneumococcal Conjugate Vacc, 13 Valent (Prevnar) 08/03/2015 Pneumococcal Conjugate Vacci ne, 20-valent ([id number]) 04/11/2024 Pneumococcal Polysaccharide PPV23 (Pneumovax) 09/09/2013,10/19/2010,08/20/2007 Season [...] 04/10/2024 Does the household have a re lar source of income? (Household - for ages [...] Sign Reading Time Taken Comments Blood Pressure 94/50 04/11/2024 11:14 AM EDT Pulse 78 04/11/2024 11:14 AM EDT Temperature 36.4 C (97.5 F) 04/11/2024 11:14 AM E DT Respiratory Rate 16 04/11/2024 11:14 AM EDT Oxygen Saturation - - Inhaled Oxygen Concentration - - Weight 71.3 kg (157 lb 1.9 oz) 04/11/2024 11:14 AM EDT Height 152.4 cm (5') 04/11/2024 11:14 AM EDT Body Mass Index 30.69 04/11/2024 11:14 AM EDT documented in this encounter Progress Notes * Kasandra Antunez, - 04/11/2024 11:31 AM EDT Images from the original note were not included. Subjective: Nancy Gabriel is a 78 year old female. Chief Complaint Patient presents with Hospital Follow-Up Pt discharged from [facility] on 03/31. Caregiver reports she is doing OK since then. Case management wouldalso like to speak about meds following appt. HPI: Patient presents with her caregiver today. She is here for hospital discharge follow-up, transition of care. She was evaluated in the hospital at [facility] on March 30, 2024, and discharged home on March 31, 2024. Patient had been feeling weak, not eating or drinking much for the last 2 days and so family members brought her to the hospital. At first patient was thought to have pneumonia but then chest CT was clear. She did have significant hypokalemia and hypomagnesemia due to not eating or drinking normally, as well as diuretic use, and these electrolytes were replaced. Hospital records, labs, studies, and discharge instructions reviewed with patient Patient's past medical, surgical, family, and social history were reviewed. Medications, allergies, immunizations, and health care maintenance screenings were also reviewed. PHM: Patient Active Problem List Diagnosis Hyperlipidemia with target LDL less than 100 DDD (degenerative disc disease), cervical GERD (gastroesophageal reflux disease) Vitamin D deficiency Hypertensive cardiomyopathy (HCC) HTN, goal below 140/90 Edentulous Gout of big toe MELQUIADES (generalized anxiety disorder) Paroxysmal atrial tachycardia (HCC) CKD (chronic kidney disease) stage 4, GFR 15-29 ml/min (HCC) Chronic ischemic right MCA stroke Paroxysmal atrial fibrillation (HCC) Sensorineural hearing loss (SNHL) of both ears Tachy-leeanne syndrome (HCC) 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, without behavioral disturbance (HCC) Endometrial thickening on ultrasound 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 90 Tablet 3 Metoprolol Succinate ER 100 MG Oral Tablet Extended Release 24 Hour (toPROL XL) Take 1 Tablet by mouth in the morning and 1 Tablet before bedtime. Accu-Chek Guide In Vitro Strip (Glucose Blood) Check sugars once daily E11.9 100 Strip 3 Accu-Chek Guide w/Device Kit Use as directed. Check sugars once daily E11.9 1 Kit 0 Accu-Chek Softclix Lancets Check sugars once daily E11.9 100 Each 3 Docusate Sodium 100 MG Oral Capsule (Colace) 1 Capsule in the morning and 1 Capsule before bedtime. Atorvastatin Calcium 40 MG Oral Tablet (Lipitor) [...] MORNING AND AT BEDTIME 180 Tablet 1 Levothyroxine Sodium 88 MCG Oral Tablet (Levoxyl) TAKE 1 TABLET BY MOUTH ONCE DAILY IN THE MORNING AT LEAST 30 MINUTES PRIOR TO BREAKFAST OR OTHER MEDS 90 Tablet 1 Allopurinol 100 MG Oral Tablet (Zyloprim) TAKE 1 TABLET BY MOUTH ONCE DAILY IN THE MORNING 30 Tablet 5 Ventolin HFA 108 (90 Base) MCG/ACT Inhalation Aerosol Solution INHALE 2 PUFFS IN THE MORNING, 2 PUFFS AT NOON, 2 PUFFS IN THE EVENING AND 2 PUFFS AT BEDTIME 54 g 3 Calcitriol 0.5 MCG Oral Capsule (Rocaltrol) Take 1 Capsule by mouth in the morning. 3 Capsule 11 Nitroglycerin 0.4 MG Sublingual Tablet Sublingual (Nitrostat) Place 1 Tablet under the tongue every5 minutes as needed for Pain, Chest. 25 Tablet 5 Ondansetron 4 MG Oral Tablet Disintegrating (Zofran) Place 1 Tablet under the tongue every 8 hours as needed for Nausea or Vomiting. 20 Tablet 11 Triamcinolone Acetonide 0.5 % External Cream (Aristocort) Apply topically to affected area 2 times a day. To affected area. 60 g 5 Rollator Ultra-Light Use as directed/needed 1 Each 0 Acetaminophen 325 MG Oral Tablet Take 1 Tablet by mouth every 6 hours as needed. Misc. Devices Accu-check guide glucometer kit and lancets E11.9 Use daily as directed 1 Each 0 Spacer/Aero-Holding Chambers SISI Use with inhaler. 1 Device 0 Escitalopram Oxalate 20 MG Oral Tablet (Lexapro) Take 1 Tablet by mouth in the morning. 30 Tablet 5 amLODIPine Besylate 2.5 MG Oral Tablet (Norvasc) Take by mouth 1 Tablet before bedtime. (Patient not taking: Reported on 04/11/2024) 90 Tablet 3 No current facility-administered medications for this visit. Review of patient's allergies indicates: Allergen Reactions Codeine Psych complications Objective: BP 94/50 | Pulse 78 | Temp 36.4 C (97.5 F) (Tympanic) | Resp 16 | Ht 1.524 m (5') | Wt 71.3 kg (157 lb 1.9 oz) | BMI 30.69 kg/m | BSA 1.74 m Physical Exam: General: alert, healthy, and no distress Neck: supple, no adenopathy, no bruits, thyroid normal size, non-tender, without nodularity Heart: regular rate & rhythm, + murmur, and no gallops Lungs: chest symmetric with normal AP diameter, no chest deformities noted, no chest wall tenderness, lungs clear to auscultation Pulses: carotid=2/4 w/o bruits Extremities: less than 2 second capillary refill, no joint deformities, effusion, or inflammation ASSESSMENT/PLAN: Patient is overall feeling better and getting around okay, eating and drinking a normal amount, caregiver is managing her medications and she is taking all of them as directed, nursecase feed mill manager reviewed with caregiver today and went through pill box in detail. Had overall discussion with patient regarding power of privacy attorney. Paperwork given to patient. Advised patient to remember that financial and healthcare power of attorneys are separate and that if she wishes to update herpower of privacy attorney that she should fill out the paperwork and let those affected no. Patient is forgetful but can make her own decisions at this time, she goes through stages especially when hospitalized and ill where she may not be able to make all of her own decisions and her sister is currently her power of privacy attorney. She now lives with her son, and is thinking about having him be her power of privacy attorney. I have given her the paperwork to fill out and explained. We discussed her health in general, she is in a tough spot because she has heart failure as well as kidney failure and managing both o f those at the same time can often be like walking on a tight rope. It is very important to be sureshe is taking all medications correctly, to get labs done frequently to manage electrolytes, to follow-up with all of her specialists to be sure her health is optimized. At this time patient is capable of making all of her own decisions, including financial decisions at the bank. This may change in the future. But at this time patient should be able to help manage her finances. Chronic heart failure with reduced ejection fraction and diastolic dysfunction (HCC) (Primary) CKD (chronic kidney disease) stage 4, GFR 15-29 ml/min (HCC) Stable for now, follow-up Nephrology, frequent labs to check electrolytes and kidney function givenfurosemide use. Cardiomyopathy due to hypertension, with heart failure (HCC) 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 (HCC) Prediabetes - HEMOGLOBIN A1C; Future; Expected date: 04/11/2024 Fasting sugar was a little high suggesting prediabetes or insulin resistance. This means you may develop diabetes in the next few years. You should do everything you can to prevent diabetes now including cutting out sugars, especially sugar sweetened beverages, watching carbs, switching to whole grains and eating 3-4 small servings daily. Exercising 30-60 minutes daily can help the insulin resistance a lot, and10% weight loss, if applicable can also help. 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 Caregiver reports she is doing OK since then. Case management wouldalso like to speak about meds following appt. documented in this encounter Plan of Treatment Upcoming Encounters Date Type Department Care Team (Late st Contact Info) Description 04/23/2024 9:45 AM EDT Scheduled Telephone Care Coordination and Integration [address] [place] [address] Carmelina Crane, Community Health Interior Design Instructor [address] [place] [address] 08/30/2024 2:30 PM EST Office Visit Cardiology, [facility] [address] [place] [address] Brian Anne MD [address] [place] [address] Scheduled Procedures Name Priority Associated Diagnoses Date/Ti [...] 11/19/2021, Additional history exists PTH 09/22/2024 09/22/2023, 090 05/2022, 01/27/2022, Additional history exists Albumin/Creatinine Ratio 09/25/2024 023, 03/24/2021, 01/22/2016, Additional history exists HbA1c 10/09/2024 04/09/2024, 120 10/2022, 01/16/2023, Additional history exists GFR 10/13/2024 04/13/2024, [...] Not on filedocumented as of this encounter Results * (ABNORMAL) HEMOGLOBIN A1C (04/09/2024 12:25 PM EDT) Hemoglobin A1C 7.5(H) 4.0 - 5.6 % 04/11/2024 5:22 PM EDT [facility] Comment:The use of HbA1c to monitor glycemic status is based on normal hemoglobin and HbA composition. This test should not be used in patients with abnormal hemoglobin that affects the half life of the red blood cell or the in vivo glycation rates. Estimated Average Glucose 169(H) <126 mg/dL 04/11/2024 5:22 PM EDT [facility] Blood Venous blood specimen / Unknown Venipuncture / Unknown 04/09/2024 12:25 PM EDT 04/09/2024 12:25 PM EDT Kasandra Antunez DO LAB BLOOD ORDER SUE [facility] [address] [place] [address] documented in this encounter Visit Diagnoses Diagnosis Chronic heart failure with reduced ejection fraction and diastolic dysfunction (HCC)- Primary CKD (chronic kidney disease) stage 4, GFR 15-29 ml/min (HCC) Chronic kidney disease, Stage IV (severe) Cardiomyopathy due to hypertension, with heart failure (HCC) 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 (HCC) Prediabetes Other abnormal glucose Need for pneumococcal vaccination Need for prophylactic vaccination against streptococcus pneumoniae (pneumococcus) Cardiac pacemaker in situ Chronic ischemic right MCA stroke Transient ischemic attack (TIA), and cerebral infarction without residual deficits 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 NICM (nonischemic cardiomyopathy) (HCC) Other primary cardiomyopathies Paroxysmal atrial fibrillation (HCC) Atrial fibrillation Sensorineural hearing loss (SNHL) of both ears documented in this encounter Advance Directives Documents on File Type Date Recorded Patient Painter Bottom Expl anation Power of Pattern Fitter 04/08/2024 signed on 04/05/2024 POWER OF SALES ASSOCIATE KEY HOLDER Advance Directives and Living Will 06/15/2022 ADVANCE DIRECTIVE / LIVING WILL Healthcare Agents on File Name Relationship Healthcare Agent Relationship Communication Rajeev "Reginald" Chronister Adult Child Health C are Painter Bottom (appointed verbally by patient or by statute hierarchy) Care Teams Digital Marketing Strategist Relationship Specialty Start Date End Date Kasandra Antunez DO [address] [place] [address] PCP - General Family Medicine 10/28/11 documented as of this encounter
--- OUTSIDE RECORDS SUMMARY | 2024-04-27 21:33 | External Medical Summary | Summary of Care ---
Author Name Unknown Organization [facility] Address [address] [place] [address] Phone [phone] Care Team Providers Care Information Security Specialist Name Role Phone Kasandra Antunez Primary Care Provider Reason for Visit * Reason Onset Date Comments Medication Refill 04/22/2024 Encounter Details Date Type Department Care Team (Late st Contact Info) Description 04/22/2024 Refill Cardiology, [facility] [address] [facility] [place] [address] Shayla Linares PA-C [address] [facility], [place] [phone] Paroxysmal atrial fibrillation (HCC)*; HTN, goal below 140/90; Tachy-leeanne syndrome (HCC) Allergies Active Allergy Reactions Criticality Noted Date Comments Codeine Psych complications 12/05/2011 documented as of this encounter (statuses as of 04/24/2024) Medications Medication Sig Dispensed Refills Start Date [...] 05/08/2023 Active Calcitriol 0.5 MCG Oral Capsule (Rocaltrol)Indicati ons:Vitamin D deficiency Take 1 Capsule by mouth in the morning. 3 Capsule 11 10/19/2023 Active Ventolin HFA 108 (90 Base) MCG/ACT Inhalation Aerosol SolutionIndications :Cough INHALE 2 PUFFS IN THE MORNING, 2 PUFFS AT NOON, 2 PUFFS IN THE EVENING AND 2 PUFFS AT BEDTIME 54 g 3 11/02/2023 Active Allopurinol 100 MG Oral Tablet (Zyloprim)Indicatio ns:Gout of big toe TAKE 1 TABLET BY MOUTH ONCE DAILY IN THE MORNING 30 Tablet 5 11/17/2023 Active Levothyroxine Sodium 88 MCG Oral Tablet (Levoxyl) TAKE 1 TABLET BY MOUTH ONCE DAILY IN THE MORNING AT LEAST 30 MINUTES PRIOR TO BREAKFAST OR OTHER MEDS 90 Tablet 1 12/15/2023 Active Clopidogrel Bisulfate [...] daily E11.9 100 Strip 3 04/02/2024 Active Furosemide 20 MG Oral Tablet (Lasix) Take 1 Tablet by mouth in the morning. 90 Tablet 3 04/11/2024 Active Escitalopram Oxalate 20 MG Oral Tablet (Lexapro) Take 1 Tablet by mouth in the morning. 30 Tablet 5 04/19/2024 Active Metoprolol Succinate ER 100 MG Oral Tablet Extended Release 24 Hour (toPROL XL)Indications:Paro xysmal atrial fibrillation (HCC),HTN, goal below 140/90,Tachy-leeanne syndrome (HCC) Take 1 Tablet by mouth in the morning and 1 Tablet before bedtime. 180 Tablet 3 04/24/2024 Active Metoprolol Succinate ER 100 MG Oral Tablet Extended Release 24 Hour (toPROL XL) Take 1 Tablet by mouth in the morning and 1 Tablet before bedtime. 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 [...] as of this encounter (statuses as of 04/24/2024) Immunizations Name Administration Dates Next Due COVID-19 mRNA, LNP-s, No Pre serve, 2-Dose Series (Moderna) 11/19/2021,05/19/2021,04/21/2021 Pneumococcal Conjugate Vacc, 13 Valent (Prevnar) 08/03/2015 Pneumococcal Conjugate Vacci ne, 20-valent ([id number]) 04/11/2024 Pneumococcal Polysaccharide PPV23 (Pneumovax) 09/09/2013,10/19/2010,08/20/2007 Season [...] encounter Miscellaneous Notes * Telephone Encounter - Shayla Linares PA-C - 04/24/2024 9:27 AM EDT Signed Prescriptions: Disp Refills Metoprolol Succinate ER 100 MG Oral Tablet*180 Ta*3 Sig: Take 1 Tablet by mouth in the morning and 1 Tablet before bedtime. Authorizing Provider: SHAYLA LINARES * Telephone Encounter - Phyllis Messer CMA - 04/23/2024 1:38 PM EDTPending Prescriptions: Disp Refills Metoprolol Succinate ER 100 MG Oral Tablet*180 Ta*3 Sig: Take 1 Tablet by mouth in the morning and 1 Tablet before bedtime. * Telephone Encounter - Jelly Thao CPhT - 04/22/2024 3:07 PM EDT Medication(s) is/are listed as "Historical". Pt confirmed the current dosage, directions, and qty that they are normally prescribed, as reflected in the pending order below. This is also indicated from encounter on 04/09/24. Confirmed patient has been seen within the last year.. Please review and approve if appropriate. Pending Prescriptions: Disp Refills Metoprolol Succinate ER 100 MG Oral Table*180 Ta*1 Sig: Take 1 Tablet by mouth in the morning and 1 Tablet before bedtime. Last Visit: 04/09/2024 (in office), Visit date not found (telemedicine) Next Visit: 08/30/2024 If no future appointments scheduled, and last appointment is greater than a year ago, please schedule patient for a follow-up appointment Last date the medication was ordered: Historical Patient Phone Numbers Labs: Lab Results Component Value Date/Time CREAT 2.4 (H) 04/13/2024 08:49 AM CREAT 2.01 (A) 08/03/2021 12:00 AM CREAT 2.0 (H) 09/16/2020 11:40 AM POTASSIUM 4.2 04/13/2024 08:49 AM POTASSIUM 3.8 08/03/2021 12:00 AM POTASSIUM 5.5 (H) 09/16/2020 11:40 AM TSH 1.38 10/19/2023 11:17 AM TSH 6.09 (H) 09/16/2020 11:40 AM LDLCALC 34 01/16/2023 12:22 PM LDLCALC 53 01/15/2018 09:40 AM LDLDIRECT 47 03/24/2021 11:32 AM LDLDIRECT 54 01/27/2020 01:30 PM ALT 12 04/09/2024 12:25 PM ALT 16 09/16/2020 11:40 AM HGBA1C 7.5 (H) 04/09/2024 12:25 PM HGBA1C 6.4 (H) 08/21/2020 12:23 PM documented in this encounter Plan of Treatment Upcoming Encounters Date Type Department Care Team (Late st Contact Info) Description 08/30/2024 2:30 PM EST Office Visit Cardiology, [facility] [address] [place] [address] Brian Anne MD [address] [place] [address] Scheduled Procedures Name Priority Associated Diagnoses Date/Ti me COLONOSCOPY FLEXIBLE PROXIMAL DIAGNOSTIC Recall History of colon polyps Health Maintenance Due Date Last Done Comments Zoster Vaccines (2 of 3) 02/01/2016 12/07/2015 Diabetic Eye Exam 11/23/2016 11/23/2015, 05/04/2011 Diabetic Foot Exam 03/23/2021 03/23/2020, 0 06/10/2019, 02/06/2018, Additional history exists Colonoscopy 05/19/2021 05/19/2016, 05/19/2016 COVID-19 Vaccine ( season) 2023 07/21/2023, 09/29/2022, 11/19/2021, Additional history exists Influenza Vaccine (FLU shot) (#1) 2024 07/08/2023, 07/30/2022, 07/09/2021, Additional history exists PTH 09/22/2024 09/22/2023, 090 [...] 5 YRS AGES 18-100 Discontinued 05/19/2016, 05/19/2016 Pneumococcal Vaccine: 65+ Years Completed 04/11/2024, 08/03/2015, 09/09/2013, Additional history exists HPV (Gardasil) Vaccine Aged Out No lo nger eligible based on patient's age to complete this topic Hepatitis B Vaccine Aged Out No longe r eligible based on patient's age to complete this topic MENINGOCOCCAL (MENACTRA/MENVEO) Aged Out No longer eligible based on patient's age to complete this topic documented as of this encounter Medical Devices Not on filedocumented as of this encounter Visit Diagnoses Diagnosis Paroxysmal atrial fibrillation (HCC)- Primary Atrial fibrillation HTN, goal below 140/90 Unspecified essential hypertension Tachy-leeanne syndrome (HCC) Sinoatrial node dysfunction documented in this encounter Advance Directives Documents on File Type Date Recorded Patient Referral Clerk Expl anation Power of Fish Housekeeper 04/08/2024 signed on 04/05/2024 POWER OF BLASTING CONTRACT MAN Advance Directives and Living Will 06/15/2022 ADVANCE DIRECTIVE / LIVING WILL Healthcare Agents on File Name Relationship Healthcare Agent Relationship Communication Rajeev "Reginald" Chronister Adult Child Health C are Referral Clerk (appointed verbally by patient or by statute hierarchy) Care Teams Information Security Specialist Relationship Specialty Start Date End Date Kasandra Antunez DO [address] [place] [address] PCP - General Family Medicine 10/28/11 documented as of this encounter
--- OUTSIDE RECORDS SUMMARY | 2024-04-27 21:33 | External Medical Summary | Summary of Care ---
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 [...] hypoxia 10/08/2021 11/03/2021 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 [...] (Prevnar) 08/03/2015 Pneumococcal Conjugate Vacci ne, 20-valent ([id number]) 04/11/2024 Pneumococcal Polysaccharide PPV23 (Pneumovax) 09/09/2013,10/19/2010,08/20/2007 Season [...] on file documented as of this encounter Progress Notes * Carmelina Crane, Community Health Assembler Movement - 04/16/2024 11:12 AM EDT Telemedicine visit: No Community Health Assembler Movement ([facility]) documentation: Outbound call to patient caregiver Annie Patient has been getting around ok Denies swelling Denies Shortness of Breath Denies weakness Appetite eating sweets and not much of anything else Caregiver is concerned patient anxiety is very high She feels that also the lack of being able to hear also may contribute to some of her anxiety States that she thinks the sister is working on hearing aides Please call care transitions nurse with advice Carmelina Crane [facility] Community Health Worker Call or Text- [phone] documented in this encounter Plan of Treatment Upcoming Encounters Date Type Department Care Team (Late st Contact Info) Description 04/23/2024 9:45 AM EDT Scheduled Telephone Care Coordination and Integration [address] [place] [address] Carmleina Crane [facility] Health Assembler Movement [address] [place] [address] 08/30/2024 2:30 PM EST Office Visit Cardiology, [facility] [address] [facility] [place] [address] Brian Anne MD [address] [place] [address] Scheduled Procedures Name Priority Associated Diagnoses Date/Ti [...] 11/19/2021, Additional history exists PTH 09/22/2024 09/22/2023, 09/0 [...] Documents on File Type Date Recorded Patient Supervisor Electronics Testing Expl anation Power of Quality Assurance Monitor Chassis 04/08/2024 signed on 04/05/2024 POWER OF MEDICAL ASSISTANT FLOAT Advance Directives and Living Will 06/15/2022 ADVANCE DIRECTIVE / LIVING WILL Healthcare Agents on File Name Relationship Healthcare Agent Relationship Communication Rajeev "Reginald" Chronister Adult Child Health C are Supervisor Electronics Testing (appointed verbally by patient or by statute hierarchy) Care Teams Operator Supply Relationship Specialty Start Date End Date Kasandra Antunez DO [address] [place], [place] [phone] PCP - General Family Medicine 10/28/11 documented as of this encounter
--- OUTSIDE RECORDS SUMMARY | 2024-04-27 21:34 | External Medical Summary | Summary of Care ---
Author Name Unknown Organization [facility] Address [address] [place] [address] Phone [phone] Care Team Providers Care Coagulating Operator Name Role Phone Kasandra Antunez Primary Care Provider Reason for Visit * Reason Onset Date Comments Test Results 04/11/2024 Encounter Details Date Type Department Care Team (Late st Contact Info) Description 04/11/2024 Telephone Cardiology, [facility] [address] [facility] [place] [address] Maggie Sepulveda PA-C [address] [facility], [place] [phone] Test Results Allergies Active Allergy Reactions Criticality Noted Date Comments Codeine Psych complications 12/05/2011 documented as of this encounter (statuses as of 04/11/2024) Medications Medication Sig Dispensed Refills Start Date End Date Status Spacer/Aero-Holdin g Chambers SISI Use with inhaler. 1 Device 0 6 Active Additional Information Patient not taking.Reported on 03/27/2024 Misc. Devices Accu-check guide glucometer kit and lancets E11.9 Use daily as directed 1 Each 0 Active Additional Information Patient not taking.Reported on 04/02/2024 Depend Adjustable Underwear Lg Use twice daily [...] Active Escitalopram Oxalate 10 MG Oral Tablet (Lexapro)Indicatio [...] daily E11.9 100 Each 3 4 Active Additional Information Patient not taking.Reported on 04/02/2024 Accu-Chek Guide w/Device Kit Use as directed. Check sugars once daily E11.9 1 Kit 4 Active Additional Information Patient not taking.Reported on 04/02/2024 Accu-Chek Guide In Vitro Strip (Glucose Blood) Check sugars once daily E11.9 100 Strip 3 4 Active Additional Information Patient not taking.Reported on 04/02/2024 Metoprolol Succinate ER 100 MG Oral Tablet Extended Release 24 Hour (toPROL XL) Take 1 Tablet by mouth in the morning and 1 Tablet before bedtime. 4 Active Furosemide 20 MG Oral Tablet (Lasix) Take 1 Tablet by mouth in the morning. 90 Tablet 3 4 Active Furosemide 20 MG Oral Tablet (Lasix) Take 1 Tablet by mouth in the morning and 1 Tablet before bedtime. Plus additional one three days per week. 68 Tablet 11 3 024 Discontinued(Re fill) Digoxin 125 MCG Oral Tablet (Lanoxin) 1 Tablet. Takes Monday and Monday Mornings 4 024 Discontinued Potassium Chloride ER 20 MEQ Oral Tablet Extended Release Take 1 Tablet by mouth in the morning. 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 She stated she understood. Med list update and lab orders placed. * Telephone Encounter - Josué Arvizu RN - 04/11/2024 10:11 AM EDT ----- Message from Maggie Sepulveda sent at 04/10/2024 10:36 PM EDT ----- Potassium elevated Patient needs to stop potassium supplement. Creatinine trending higher. Reduce furosemide to 20 mg - 1 tab daily Digoxin level also high. Stop digoxin for now Repeat BMP in 1-2 days. * Telephone Encounter - Josué Arvizu RN - 04/11/2024 10:10 AM EDT ----- Message from Maggie Sepulveda sent at 04/10/2024 10:36 PM EDT ----- Potassium elevated Patient needs to stop potassium supplement. Creatinine trending higher. Reduce furosemide to 20 mg - 1 tab daily Digoxin level also high. Stop digoxin for now Repeat BMP in 1-2 days. documented in this encounter Plan of Treatment Upcoming Encounters Date Type Department Care Team (Late st Contact Info) Description 04/11/2024 11:00 AM EDT Office Visit Family Practice [facility] [address] [place] [address] Kasandra Antunez, [address] [facility] [place] [address] Arrived 04/16/2024 12:15 PM EDT Scheduled Telephone Care Coordination and Integration [address] [place] [address] Camrelina Crane, Community Health Backup Operator [address] [place] [address] 04/23/2024 9:45 AM EDT Scheduled Telephone Care Coordination and Integration [address] [place] [address] Carmelina Crane, Community Health Backup Operator [address] [place] [address] 08/30/2024 2:30 PM EST Office Visit Cardiology, [facility] [address] [facility] [place] [address] Brian Anne MD [address] [facility] [place] [address] Scheduled Orders Name Type Priority Associated Diagnoses Orde r Schedule BASIC METABOLIC PANEL Lab Routine CKD (chronic kidney disease) stage 4, GFR 15-29 ml/min (HCC) Chronic heart failure with reduced ejection fraction and diastolic dysfunction (HCC) HFrEF (heart failure with reduced ejection fraction) (HCC) Cardiomyopathy due to hypertension, 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) Expected: 04/13/2024 (Approximate), Expires: 04/11/2025 Scheduled Procedures Name Priority Associated Diagnoses Date/Ti me COLONOSCOPY FLEXIBLE PROXIMAL DIAGNOSTIC Recall History of colon polyps Health Maintenance Due Date Last Done Comments Zoster Vaccines (2 of 3) 02/01/2016 12/07/2015 Diabetic Eye Exam 11/23/2016 11/23/2015, 05/04/2011 Diabetic Foot Exam 03/23/2021 03/23/2020, 0 06/10/2019, 02/06/2018, Additional history exists Colonoscopy 05/19/2021 05/19/2016, 05/19/2016 COVID-19 Vaccine ( season) 2023 11/19/2021, 05/19/2021, 04/21/2021 HbA1c 03/23/2024 09/22/2023, 12/22, 10/08/2021, Additional history exists PTH 09/22/2024 09/22/2023, 090 05/2022, 01/27/2022, Additional history exists Albumin/Creatinine Ratio 09/25/2024 023, 03/24/2021, 01/22/2016, Additional history exists GFR 10/09/2024 04/09/2024, 02/21, 03/08/2024, Additional history exists TSH 10/19/2024 10/19/2023, 04/22, [...] Completed 07/08/2023, 07/30/2022, 07/09/2021, Additional history exists GARDASIL-HPV IMMUNIZATION SERIES Aged [...] as of this encounter Visit Diagnoses Diagnosis Chronic heart failure with reduced ejection fraction and diastolic dysfunction (HCC)- Primary CKD (chronic kidney disease) stage 4, GFR 15-29 ml/min (HCC) Chronic kidney disease, Stage IV (severe) HFrEF (heart failure with reduced ejection fraction) (HCC) Cardiomyopathy due to hypertension, 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) documented in this encounter Advance Directives Documents on File Type Date Recorded Patient Netsuite Consultant Expl anation Power of Wool Puller 04/08/2024 signed on 04/05/2024 POWER OF ASSISTANT PROFESSOR OF PHYSICS Advance Directives and Living Will 06/15/2022 ADVANCE DIRECTIVE / LIVING WILL Healthcare Agents on File Name Relationship Healthcare Agent Relationship Communication Rajeev "Reginald" Chronister Adult Child Health C are Netsuite Consultant (appointed verbally by patient or by statute hierarchy) Care Teams Coagulating Operator Relationship Specialty Start Date End Date Kasandra Antunez DO [address] [place] [address] PCP - General Family Medicine 10/28/11 documented as of this encounter
--- OUTSIDE RECORDS SUMMARY | 2024-04-27 21:34 | External Medical Summary ---
Author Name Unknown Address Unknown Organization [id number][facility] [place] [address] [facility] [address] Laboratory Report Ordering Provider Test Date Status VIJAY MCGUIRE 04/09/2024 12:25:48 Final Recommended trough therapeut ic ranges:
0.5 to 0.8 for heart failure
0.5 to 1.1 for atrial fibrillation Observation Date Value Abnormality Reference (Units ) Status Digoxin 04/09/2024 12:25:48 1.2 Above high normal 0. 5-1.1 (ng/mL) Final Performing Location [facility] [place] [address] [facility] [address]
--- OUTSIDE RECORDS SUMMARY | 2024-04-27 21:34 | External Medical Summary | Summary of Care ---
Author Name Unknown Organization [facility] Address [address] [place] [address] Phone [phone] Care Team Providers Care Shift Commander Name Role Phone Moender Kasandra Paige DO Primary Care Provider Reason for Visit * Reason Comments Outpatient Testing Encounter Details Date Type Department Care Team (Late st Contact Info) Description 04/09/2024 12:40 PM EDT Laboratory Laboratory, [facility] [address] [place] [address] [facility] [address] [place] [address] NICM (nonischemic cardiomyopathy) ([facility]); CKD (chronic kidney disease) stage 4, GFR 15-29 ml/min (HCC); Chronic heart failure with reduced ejection fraction and diastolic dysfunction ([facility]); Paroxysmal atrial fibrillation ([facility]); Cardiac pacemaker in situ Allergies Active Allergy Reactions Criticality Noted Date Comments Codeine Psych complications 12/05/2011 documented as of this encounter (statuses as of 04/09/2024) Medications Medication Sig Dispensed Refills Start Date End Date Status Spacer/Aero-Holding Chambers SISI Use with inhaler. 1 Device 0 01/22/2016 Active Additional Information Patient not taking.Reported on 03/27/2024 Misc. Devices Accu-check guide glucometer kit and lancets E11.9 Use daily as directed 1 Each 09/29/2020 Active Additional Information Patient not taking.Reported on 04/02/2024 Depend Adjustable Underwear Lg Use twice daily 64 Each 09/29/2020 Active Acetaminophen 325 MG Oral [...] and 1 Capsule before bedtime. 03/15/2024 Active Potassium Chloride ER 20 MEQ Oral Tablet Extended Release Take 1 Tablet by mouth in the morning. Active Accu-Chek Softclix Lancets Check sugars once daily E11.9 100 Each 3 04/02/2024 Active Additional Information Patient not taking.Reported on 04/02/2024 Accu-Chek Guide w/Device Kit Use as directed. Check sugars once daily E11.9 1 Kit 04/02/2024 Active Additional Information Patient not taking.Reported on 04/02/2024 Accu-Chek Guide In Vitro Strip (Glucose Blood) Check sugars once daily E11.9 100 Strip 3 04/02/2024 Active Additional Information Patient not taking.Reported on 04/02/2024 Metoprolol Succinate ER 100 MG Oral Tablet Extended Release 24 Hour (toPROL XL) Take 1 Tablet by mouth in the morning and 1 Tablet before bedtime. 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 Never true 04/05/20 24 Within the past 12 months, t he food you bought just didn't last and you didn't have money to get more. Never true 04/05/2024 Sex and Gender Information Value Date Recorded [...] 11:00 AM EDT Office Visit Family Practice [facility] [address] [facility] [address] [place] [address] Kasandra Antunez, [address] [place] [address] 08/30/2024 2:30 PM EST Office Visit Cardiology, [facility] [address] [address] Brian Anne MD [address] [place] [address] Pending Results Name Type Priority Associated Diagnoses Date /Time COMPREHENSIVE METABOLIC PANEL Lab Routine NICM (nonischemic cardiomyopathy) (HCC) CKD (chronic kidney disease) stage 4, GFR 15-29 ml/min (HCC) Chronic heart failure with reduced ejection fraction and diastolic dysfunction (HCC) 04/09/2024 12:25 PM EDT MAGNESIUM Lab Routine NICM (nonischemic cardiomyopathy) (HCC) CKD (chronic kidney disease) stage 4, GFR 15-29 ml/min (HCC) Chronic heart failure with reduced ejection fraction and diastolic dysfunction (HCC) 04/09/2024 12:25 PM EDT PHOSPHORUS Lab Routine NICM (nonischemic cardiomyopathy) (HCC) CKD (chronic kidney disease) stage 4, GFR 15-29 ml/min (HCC) Chronic heart failure with reduced ejection fraction and diastolic dysfunction (HCC) 04/09/2024 12:25 PM EDT DIGOXIN LEVEL Lab Routine Chronic heart failure with reduced ejection fraction and diastolic dysfunction (HCC) NICM (nonischemic cardiomyopathy) (HCC) Paroxysmal atrial fibrillation (HCC) Cardiac pacemaker in situ 04/09/2024 12:25 PM EDT Scheduled Procedures Name Priority Associated Diagnoses Date/Ti [...] 01/27/2022, Additional history exists HbA1c 03/23/2024 09/22/2023, 0304/2023, 10/08/2021, Additional history exists GFR 09/15/2024 03/15/2024, 02/20, 10/19/2023, Additional history exists PTH 09/22/2024 09/22/2023, 09/0 05/2022, 01/27/2022, Additional history exists Albumin/Creatinine Ratio 09/25/2024 023, 03/24/2021, 01/22/2016, Additional history exists TSH 10/19/2024 10/19/2023, 04/22, 09/06/2022, Additional history exists Hgb 03/15/2025 04/09/2024, 02/21, 03/08/2024, Additional history exists Depression Screening 03/26/2025 03/26/2024 [...] Procedure Name Priority Date/Time Associated Diagnosis Comments CBC Routine 04/09/2024 12:25 PM EDT NICM (nonischemic cardiomyopathy) (HCC) CKD (chronic kidney disease) stage 4, GFR 15-29 ml/min (HCC) Chronic heart failure with reduced ejection fraction and diastolic dysfunction (HCC) documented in this encounter Results * (ABNORMAL) CBC (04/09/2024 12:25 PM EDT) WBC 11.84(H) 4.00 - 10.80 K/uL 04/09/2024 12:47 PM EDT [facility] RBC 3.77 3.85 - 5.15 M/uL 04/09/2024 12:47 PM EDT [facility] HGB 12.4 12.0 - 15.3 g/dL 04/09/2024 12:47 PM EDT [facility] HCT 39.0 36.0 - 45.2 % 04/09/2024 12:47 PM EDT [facility] MCV 103.4 81.5 - 97.5 fL 04/09/2024 12:47 PM EDT [facility] MCH 32.9 27.0 - 34.0 pg 04/09/2024 12:47 PM EDT [facility] MCHC 31.8 32.0 - 36.0 g/dL 04/09/2024 12:47 PM EDT [facility] RDW 16.7 11.5 - 15.5 % 04/09/2024 12:47 PM EDT [facility] PLT 311 140 - 400 K/uL 04/09/2024 12:47 PM EDT [facility] MPV 11.0 6.6 - 11.1 fL 04/09/2024 12:47 PM EDT [facility] Blood Venous blood specimen / Unknown Venipuncture / Unknown 04/09/2024 12:25 PM EDT 04/09/2024 12:25 PM EDT Ruby MELARA LAB BLOOD ORDERABLES [facility] [address] [facility] [address] documented in this encounter Visit Diagnoses Diagnosis NICM (nonischemic cardiomyopathy) (HCC) Other primary cardiomyopathies CKD (chronic kidney disease) stage 4, GFR 15-29 ml/min (HCC) Chronic kidney disease, Stage IV (severe) Chronic heart failure with reduced ejection fraction and diastolic dysfunction (HCC) Paroxysmal atrial fibrillation (HCC) Atrial fibrillation Cardiac pacemaker in situ documented in this encounter Advance Directives Documents on File Type Date Recorded Patient Photograph Mounter Expl anation Power of Major Appliance Assembly Supervisor 04/08/2024 signed on 04/05/2024 POWER OF BREAD RACKER Advance Directives and Living Will 06/15/2022 ADVANCE DIRECTIVE / LIVING WILL Healthcare Agents on File Name Relationship Healthcare Agent Relationship Communication Rajeev "Reginald" Chronister Adult Child Health C are Photograph Mounter (appointed verbally by patient or by statute hierarchy) Care Teams Shift Commander Relationship Specialty Start Date End Date Kasandra Antunez DO [address] [place] [address] PCP - General Family Medicine 10/28/11 documented as of this encounter
--- OUTSIDE RECORDS SUMMARY | 2024-04-27 21:34 | External Medical Summary ---
Author Name Unknown Address Unknown Organization [id number]:[facility] [place] - [address] [facility] [address] Laboratory Report Ordering Provider Test Date Status KELLIE ESPARZA 04/09/2024 12:25:48 Final Observation Date Value Abnormality Reference (Units ) Status HbA1C 04/09/2024 12:25:48 7.5 Above high normal 4. 0-5.6 (%) Final The use of HbA1c to monitor glycemic status is based on normal hemoglobin and HbA composition. This test should not be used in patients with abnormal hemoglobin that affects the half life of the red blood cell or the in vivo glycation rates. Glucose, estimated average 04/09/2024 12:25:48 169 Above high normal <126 (mg/dL) Shailesh morrison Performing Location [facility] [place] - [address] [facility] [address]
--- OUTSIDE RECORDS SUMMARY | 2024-04-27 21:34 | External Medical Summary ---
Author Name Unknown Address Unknown Organization [id number]:[facility] - [address] [place] [address] Laboratory Report Ordering Provider Test Date Status VIJAY MCGUIRE 04/13/2024 08:49:15 Final Observation Date Value Abnormality Reference (Units ) Status BUN 04/13/2024 08:49:15 33 Above high normal 6-20 (mg/dL) Final Creatinine 04/13/2024 08:49:15 2.4 Above high normal 0.5-1.0 (mg/dL) Final Glomerular filtration rate/1.73 sq M.predicted [Volume Rate/Area] in Serum, Plasma or Blood by Creatinine-based formula (CKD-EPI) 04/13/2024 08:49:15 20 Below low normal >=60 (mL/min) Final eGFR is calculated based on the CKD-EPI 2020 equation Sodium 04/13/2024 08:49:15 141 135-146 (m mol/L) Final Potassium 04/13/2024 08:49:15 4.2 3.5-5.1 (m mol/L) Final Cl 04/13/2024 08:49:15 101 98-107 (mm ol/L) Final CO2 04/13/2024 08:49:15 26 22-32 (mmo l/L) Final Anion gap 04/13/2024 08:49:15 14 7-15 (mmol /L) Final Glucose 04/13/2024 08:49:15 173 Above high normal 70 -120 (mg/dL) Final Calcium 04/13/2024 08:49:15 9.9 8.4-10.2 ( mg/dL) Final Performing Location [facility] 0 - [address] [place] [address]
--- OUTSIDE RECORDS SUMMARY | 2024-04-27 21:34 | External Medical Summary | Summary of Care ---
Author Name Unknown Organization [facility] Address [address] [place] [address] Phone [phone] Care Team Providers Care Air Conditioning Unit Assembler Name Role Phone Moender Kasandra Paige DO Primary Care Provider Reason for Visit * Reason Comments Outpatient Testing Encounter Details Date Type Department Care Team (Late st Contact Info) Description 04/13/2024 9:20 AM EDT Laboratory Laboratory, [facility] [address] [place] [address] [facility] [address] [place] [address] CKD (chronic kidney disease) stage 4, GFR 15-29 ml/min ([facility]); Chronic heart failure with reduced ejection fraction and diastolic dysfunction ([facility]); HFrEF (heart failure with reduced ejection fraction) ([facility]); Cardiomyopathy due to hypertension, without heart failure ([facility]) Allergies Active Allergy Reactions Criticality Noted Date Comments Codeine Psych complications 12/05/2011 documented as of this encounter (statuses as of 04/13/2024) Medications Medication Sig Dispensed Refills Start Date [...] as of this encounter (statuses as of 04/13/2024) Active Problems Problem Noted Date Diagnosed Date 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 Chronic heart failure with r educed ejection fraction and diastolic dysfunction 01/01/2024 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 [...] as of this encounter (statuses as of 04/13/2024) Resolved Problems Problem Noted Date Diagnosed Date Resolved Date Acute respiratory failure with hypoxia 10/08/2021 11/03/2021 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 [...] as of this encounter (statuses as of 04/13/2024) Immunizations Name Administration Dates Next Due COVID-19 mRNA, LNP-s, No Pre serve, 2-Dose Series (Moderna) 11/19/2021,05/19/2021,04/21/2021 Pneumococcal Conjugate Vacc, 13 Valent (Prevnar) 08/03/2015 Pneumococcal Conjugate Vacci ne, 20-valent ([id number]) 04/11/2024 Pneumococcal Polysaccharide PPV23 (Pneumovax) 09/09/2013,10/19/2010,08/20/2007 Season [...] Telephone Care Coordination and Integration [address] [facility] [place] [address] Carmelina Crane, Community Health Stain Applicator [address] [place] [address] 04/23/2024 9:45 AM EDT Scheduled Telephone Care Coordination and Integration [address] [facility] [place] [address] Carmelina Crane, Community Health Stain Applicator [address] [place] [address] 08/30/2024 2:30 PM EST Office Visit Cardiology, [facility] [address] [facility] [place] [address] Brian Anne MD [address] [place] [address] Pending Results Name Type Priority Associated Diagnoses Date /Time BASIC METABOLIC PANEL Lab Routine CKD (chronic kidney disease) stage 4, GFR 15-29 ml/min (HCC) Chronic heart failure with reduced ejection fraction and diastolic dysfunction (HCC) HFrEF (heart failure with reduced ejection fraction) (HCC) Cardiomyopathy due to hypertension, 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) 04/13/2024 8:49 AM EDT Scheduled Procedures Name Priority Associated Diagnoses [...] 11/19/2021, Additional history exists PTH 09/22/2024 09/22/2023, 05/2022, 01/27/2022, Additional history exists Albumin/Creatinine Ratio 09/25/2024 023, 03/24/2021, 01/22/2016, Additional history exists GFR 10/09/2024 04/09/2024, 02/21, 03/08/2024, Additional history exists HbA1c 10/09/2024 04/09/2024, 10/2022, 01/16/2023, Additional history exists TSH 10/19/2024 10/19/2023, 04/22, [...] Documents on File Type Date Recorded Patient Simplex Printer Installer Expl anation Power of Charge Master Analyst 04/08/2024 signed on 04/05/2024 POWER OF WORLD RENOWNED CHEF AND RESTAURANT OWNER Advance Directives and Living Will 06/15/2022 ADVANCE DIRECTIVE / LIVING WILL Healthcare Agents on File Name Relationship Healthcare Agent Relationship Communication Rajeev "Reginald" Chronister Adult Child Health C are Simplex Printer Installer (appointed verbally by patient or by statute hierarchy) Care Teams Air Conditioning Unit Assembler Relationship Specialty Start Date End Date Kasandra Antunez DO [address] [place] [address] PCP - General Family Medicine 10/28/11 documented as of this encounter
--- OUTSIDE RECORDS SUMMARY | 2024-04-27 21:34 | External Medical Summary ---
Author Name Unknown Address Unknown Organization [id number]:[facility] - [address] [place] [address] Laboratory Report Ordering Provider Test Date Status ADELAIDE AGGARWAL 04/09/2024 12:25:48 Final Observation Date Value Abnormality Reference (Units ) Status Phosphate 04/09/2024 12:25:48 4.1 2.5-4.8 (m g/dL) Final Performing Location [facility] - [address] [place] [address]
--- OUTSIDE RECORDS SUMMARY | 2024-04-27 21:34 | External Medical Summary | Summary of Care ---
Author Name Unknown Organization [facility] Address [address] [place] [address] Phone [phone] Care Team Providers Care Gluing Pressman Name Role Phone Kasandra Antunez Primary Care Provider Reason for Visit * Reason Comments Follow Up Encounter Details Date Type Department Care Team (Late st Contact Info) Description 04/09/2024 12:00 PM EDT Office Visit Cardiology, [facility] [address] [facility] [place] [address] Maggie Sepulveda PA-C [address] [facility] [place] [address] Chronic heart failure with reduced ejection fraction and diastolic dysfunction (HCC)*; NICM (nonischemic cardiomyopathy) (HCC); Paroxysmal atrial fibrillation (HCC); Cardiac pacemaker in situ Allergies Active Allergy [...] and 1 Tablet before bedtime. 4 Active Depend Adjustable Underwear Lg Use twice daily 64 Each 11 0 024 Discontinued(Me dication List Clean Up) Furosemide 20 MG Oral Tablet (Lasix) Take 1 Tablet by mouth in the morning and 1 Tablet before bedtime. Plus additional one three days per week. 68 Tablet 11 3 024 Discontinued(Re fill) Metoprolol Succinate ER 25 MG Oral Tablet Extended Release 24 Hour (toPROL XL)Indications:Sup raventricular tachycardia (HCC) TAKE 1 TABLET BY MOUTH ONCE DAILY IN THE MORNING 90 Tablet 1 4 024 Discontinued Digoxin 125 MCG Oral Tablet (Lanoxin) 1 Tablet. Takes Monday and Monday Mornings 4 024 Discontinued Potassium Chloride ER 20 MEQ Oral Tablet Extended Release Take 1 Tablet by mouth in the morning. 024 Discontinued Magnesium 400 MG Oral Tablet Take by mouth. 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 [...] Sign Reading Time Taken Comments Blood Pressure 108/56 04/09/2024 11:44 AM EDT Pulse 76 04/09/2024 11:44 AM EDT Temperature - - Respiratory Rate 16 04/09/2024 11:44 AM EDT Oxygen Saturation - - Inhaled Oxygen Concentration - - Weight 71.4 kg (157 lb 8 oz) 04/09/2024 11:44 AM EDT Height - - Body Mass Index 30.76 02/27/2024 3:15 PM EDT documented in this encounter Progress Notes * Maggie Sepulveda PA-C - 04/09/2024 11:52 AM EDT Cardiology F/U: Chief Complaint: Heart failure with reduced ejection fraction SUBJECTIVE: Nancy Gabriel is a 78 year old female here today for routine cardiology f/u. Last clinic evaluation approx 3 months ago with SARITHA Capone. Primary desk reporter is Dr. Anne. History includes: Tachy-leeanne syndrome, status post permanent pacemaker, implanted 08/14/[address] Mcelroy Reprogrammed to DDD 08/2022 Paroxysmal atrial fibrillation, previously on amiodarone started 07/2020 [id number] (HTN, Female, Age, CVA, DM)- on Eliquis ? Reduced dose Amiodarone discontinued 01/09/2023 due to concerns for amiodarone toxicity (Ground-glass opacities and hyperdense liver per CT of the chest at [facility] 12/2022) Nonischemic cardiomyopathy with LVEF of approximately 40% previously, now reduced to 20-25% (04/2023). No recommendations for upgrade to ICD and/or C/S lead per EP 11/2022. Has f/u with EP January 2024 Diabetes 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 CKD stage 3-4 History of CVA- on plavix Since last visit patient admitted to [facility] for CHF and afib RVR. Metoprolol increased to 100 mg BID.Digoxin added. Furosemide increased. She is feeling well today. We verified her med changes through her pharmacy. She was having diarrhea with mag supplement so she stopped. Digoxin level was borderline high a few weeks ago and reduced to 3 days per week. No chest pain, shortness of breath, palpitations, dizziness, syncope or near syncope. No orthopnea,PND, or increased lower extremity edema. No fever, chills, cough, hematochezia, melena, or hemoptysis. Review of Systems: See HPI for pertinent positives. All others negative, other than those noted in HPI. Patient Active Problem List Diagnosis Hyperlipidemia with [...] fraction and diastolic dysfunction (HCC) Amiodarone toxicity Social History Tobacco Use Smoking status: Never Smokeless tobacco: Never Vaping Use Vaping status: Never Used Substance Use Topics Alcohol use: No Drug use: No Review of patient's allergies indicates: Allergen Reactions Codeine Psych complications Current Outpatient Medications Medication Sig Dispense Refill Acetaminophen 325 MG Oral Tablet Take 1 Tablet by mouth every 6 hours as needed. amLODIPine Besylate 2.5 MG Oral Tablet (Norvasc) Take by mouth 1 Tablet before bedtime. 90 Tablet 3 Triamcinolone Acetonide 0.5 % External Cream (Aristocort) Apply topically to affected area 2 times a day. To affected area. 60 g 5 Ondansetron 4 MG Oral Tablet Disintegrating [...] the morning and 1 Capsule before bedtime. Potassium Chloride ER 20 MEQ Oral Tablet Extended Release Take 1 Tablet by mouth in the morning. Spacer/Aero-Holding Chambers SISI Use with inhaler. (Patient not taking: Reported on 03/27/2024) 1 Device 0 Misc. Devices Accu-check guide glucometer kit and lancets E11.9 Use daily as directed (Patient not taking: Reported on 04/02/2024) 1 Each 0 Depend Adjustable Underwear Lg Use twice daily 64 Each 11 Rollator Ultra-Light Use as directed/needed 1 Each 0 Magnesium 400 MG Oral Tablet Take by mouth. Accu-Chek Softclix Lancets Check sugars once daily E11.9 (Patient not taking: Reported on 04/02/2024) 100 Each 3 Accu-Chek Guide w/Device Kit Use as directed. Check sugars once daily E11.9 (Patient not taking: Reported on 04/02/2024) 1 Kit 0 Accu-Chek Guide In Vitro Strip (Glucose Blood) Check sugars once daily E11.9 (Patient not taking: Reported on 04/02/2024) 100 Strip 3 No current facility-administered medications for this visit. OBJECTIVE/PHYSICAL EXAMINATION: BP 108/56 (BP Site: Left Arm, BP Position: Sitting, BP Cuff Size: Regular) | Pulse 76 | Resp 16 | Wt 71.4 kg (157 lb 8 oz) | BMI 30.76 kg/m | BSA 1.74 m On my repeat 124/74 equal in both arms Wt Readings from Last 3 Encounters: 04/09/24 71.4 kg (157 lb 8 oz) 03/27/24 72.7 kg (160 lb 3.2 oz) 03/26/24 73 kg (161 lb) General: Age appropriate in no acute distress Head: normocephalic, no masses, lesions, tenderness or abnormalities Eyes: conjunctiva are pink and non-injected, sclera clear Throat: clear Nares: without discharge Neck: supple, no adenopathy, normal jugular venous pulse, no hepatojugular reflux, no carotid bruits Chest: normal shape and normal respiratory effort pacemaker left shoulder without irritation Lungs: clear to auscultation and percussion Cardiac Exam: - regular rate & rhythm, no murmur, gallop or rub - normal S-1, normal S-2 Abdomen: abdomen soft, mild increase in abdominal girth non-tender, no abnormal masses, no hepatosplenomegaly, no abdominal bruit, no femoral bruit Musculoskeletal: no gait disturbance, no joint inflammation, no deforming arthritis Extremities: no edema, no cyanosis, pulses intact 2+/4 Neuro: grossly normal exam Data: Pacemaker interrogation February 2024 - see scanned report Normal device function and battery longevity Echocardiogram May 17, 2023 The left ventricular cavity is severely dilated (LVED volume >80 ml/m^2). The qualitative LV ejection fraction is 20-24% (severely reduced). There is severe diffuse left ventricular hypokinesis. The left ventricular diastolic function is severely abnormal (grade III). Mild mitral regurgitation is present. Mild tricuspid regurgitation is present. The estimated pulmonary artery systolic pressure is 53 mm Hg ASSESSMENT: 78 year old female ICD-10-CM 1. Chronic heart failure with reduced ejection fraction and diastolic dysfunction ([facility]) I50.42 2. NICM (nonischemic cardiomyopathy) ([facility]) I42.8 3. Paroxysmal atrial fibrillation ([facility]) I48.0 4. Cardiac pacemaker in situ Z95.0 PLAN: Patient appears euvolemic. HR controlled Continue digoxin and metoprolol Continue furosemide Update labs - BMP and digoxin level. CHF tools discussed including daily weights, salt/sodium/fluid restriction, and use of diuretic protocol. Routine device interrogation. The patient is to continue all current medications as listed above. No changes were made at today'isit. Patient is being evaluated in the cardiology office for ongoing care/risk management for CHF; HTN; PAF; pacemaker. I spent a total of 30 minutes on the date of service in preparation, delivery, and documentation ofthe care provided to Nancy Gabriel excluding any time spent in the performance of separately billed services. The patient agrees to the above plan and will call with additional questions or concerns. ER with all emergencies advised. Check-out note: Blood work today Keep f/u as scheduled Maggie Sepulveda PA-C Department of Cardiology This chart was completed in part utilizing Fluency Speech Voice Recognition Software. Grammatical errors, random word insertions, prounoun errors, and incomplete sentences are an occasional consequence of this system due to software limitations, ambient noise, and hardware issues. Any formal questions or concerns about the content, text, or information contained within the body of this dictation should be directly addressed to the provider for clarification. documented in this encounter Nursing Notes * Phyllis Messer CMA - 04/09/2024 11:42 AM EDT Examination Room: 1 Name: Nancy Gabriel Date of : (1945). Reason for Visit: hospital follow up Interim Hospitalization(s): [facility] - February 2024 - 3 days - low potassium and magnesium Problems/Concerns: denies Chest Pain/SOB: denies [facility] Discussed: Not applicable [facility] is a way you can talk to your provider online through e-mail. Would you like to sign up? I can activate it for you? ALREADY ACTIVE Patient was instructed to not get up on the exam table until directed and assisted by their provider; patient is to remain seated in the chair/ wheelchair/ exam table for fall prevention and safety reasons. Patient is aware to have assistance to step down off exam table with personnel. Patient voiced full comprehension of instructions. documented in this encounter Plan of Treatment Upcoming Encounters Date Type Department Care Team (Late st Contact Info) Description 04/16/2024 12:15 PM EDT Scheduled Telephone Care Coordination and Integration [address] [place] [address] Carmelina Crane, Community Health Communications Program Manager [address] [place] [address] 04/23/2024 9:45 AM EDT Scheduled Telephone Care Coordination and Integration [address] [place] [address] Carmelina Crane, Community Health Communications Program Manager [address] [place] [address] 08/30/2024 2:30 PM EST Office Visit Cardiology, [facility] [address] [place] [address] Brian Anne MD [address] [place] [address] Scheduled Procedures Name Priority Associated Diagnoses Date/Ti [...] 03/08/2024, Additional history exists HbA1c 10/09/2024 04/09/2024, 120 10/2022, 01/16/2023, Additional history exists TSH 10/19/2024 [...] as of this encounter Results * (ABNORMAL) DIGOXIN LEVEL (04/09/2024 12:25 PM EDT) Digoxin Level 1.2(H) 0.5 - 1.1 ng/mL 04/09/2024 7:12 PM EDT [facility] Blood Venous blood specimen / Unknown Venipuncture / Unknown 04/09/2024 12:25 PM EDT 04/09/2024 12:25 PM EDT Narrative [facility] - 04/09/2024 7:12 PM EDT Recommended trough therapeutic ranges: 0.5 to 0.8 for heart failure 0.5 to 1.1 for atrial fibrillation Maggie Sepulveda PA-C LAB BLOOD [facility] Organization Address City/State/ZIP Co de Phone Number [facility] [address] [place] [address] documented in this encounter Visit Diagnoses Diagnosis Chronic heart failure with reduced ejection fraction and diastolic dysfunction (HCC)- Primary NICM (nonischemic cardiomyopathy) (HCC) Other primary cardiomyopathies Paroxysmal atrial fibrillation (HCC) Atrial fibrillation Cardiac pacemaker in situ documented in this encounter Advance Directives Documents on File Type Date Recorded Patient Cryptologic Support Specialist Expl anation Power of Field Research Assistant 04/08/2024 signed on 04/05/2024 POWER OF BIRD KEEPER Advance Directives and Living Will 06/15/2022 ADVANCE DIRECTIVE / LIVING WILL Healthcare Agents on File Name Relationship Healthcare Agent Relationship Communication Rajeev "Reginald" Chronister Adult Child Health C are Cryptologic Support Specialist (appointed verbally by patient or by statute hierarchy) Care Teams Gluing Pressman Relationship Specialty Start Date End Date Kasandra Antunez DO [address] [place] [address] PCP - General Family Medicine 10/28/11 documented as of this encounter
--- OUTSIDE RECORDS SUMMARY | 2024-04-27 21:34 | External Medical Summary | Summary of Care ---
Author Name Unknown Organization [facility] Address [address] [place] [address] Phone [phone] Care Team Providers Care Crossing Guard Name Role Phone Kasandra Antunez Primary Care Provider Encounter Details Date Type Department Care Team (Late st Contact Info) Description 04/10/2024 3:15 PM EDT Scheduled Telephone Care Coordination and Integration [address] [place], [place] [phone] Carmelina Crane, BRITTANY [address] [place], [place] [phone] Allergies Active Allergy Reactions Criticality Noted Date Comments Codeine Psych complications 12/05/2011 documented as of this encounter (statuses as of 04/10/2024) Medications Medication Sig Dispensed Refills Start Date [...] as of this encounter (statuses as of 04/10/2024) Active Problems Problem Noted Date Diagnosed Date 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 Chronic heart failure with r educed ejection fraction and diastolic dysfunction 01/01/2024 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 Transfer Task: CHW: Community Health Worker (CHW) Please make weekly calls starting on 04/02 for four weeks. Pt was in [facility] for weakness, SOB. Has paid caregiver. Is very hard of hearing. How is she doing getting around? Any SOB or weakness/dizziness? How is her appetite? Thank you! Walk around with rolling walker Denies shortness of breath only when vacuming Denies Weakness /Dizziness Appetite is poor - Eats chicken low sodium noodle soup, peanut buttter sandwich Denies nausea and vomiting Denies swelling Carmelina Crane [facility] Community Health Worker Call or Text- [phone] documented in this encounter Plan of Treatment Upcoming Encounters Date Type Department Care Team (Late st Contact Info) Description 04/11/2024 11:00 AM EDT Office Visit Family Practice [facility] [address] [facility] [place] [address] Kasandra Antunez, [address] [facility] [place] [address] 04/16/2024 12:15 PM EDT Scheduled Telephone Care Coordination and Integration [address] [place] [address] Carmelina Crane OSA [address] [place] [address] 04/23/2024 9:45 AM EDT Scheduled Telephone Care Coordination and Integration [address] [place] [address] Carmelina Crane OSA [address] [place] [address] 08/30/2024 2:30 PM EST Office Visit Cardiology, [facility] [address] [place] [address] Brian Anne MD [address] [place] [address] Scheduled Procedures Name Priority Associated Diagnoses Date/Ti [...] 10/08/2021, Additional history exists PTH 09/22/2024 09/22/2023, 09/0 [...] Documents on File Type Date Recorded Patient Residential Monitor Expl anation Power of Rivet Sorter 04/08/2024 signed on 04/05/2024 POWER OF KENNEL AIDE Advance Directives and Living Will 06/15/2022 ADVANCE DIRECTIVE / LIVING WILL Healthcare Agents on File Name Relationship Healthcare Agent Relationship Communication Rajeev "Reginald" Chronister Adult Child Health C are Residential Monitor (appointed verbally by patient or by statute hierarchy) Care Teams Crossing Guard Relationship Specialty Start Date End Date Kasandra Antunez DO [address] [place] [address] PCP - General Family Medicine 10/28/11 documented as of this encounter
--- OUTSIDE RECORDS SUMMARY | 2024-04-27 21:34 | External Medical Summary ---
Author Name Unknown Address Unknown Organization K0G:[facility] [address] [place] [address] Laboratory Report Ordering Provider Test Date Status ADELAIDE AGGARWAL 04/09/2024 12:25:48 Final Observation Date Value Abnormality Reference (Units ) Status BUN 04/09/2024 12:25:48 34 Above high normal 6-20 (mg/dL) Final Creatinine 04/09/2024 12:25:48 2.9 Above high normal 0.5-1.0 (mg/dL) Final Glomerular filtration rate/1.73 sq M.predicted [Volume Rate/Area] in Serum, Plasma or Blood by Creatinine-based formula (CKD-EPI) 04/09/2024 12:25:48 16 Below low normal >=60 (mL/min) Final eGFR is calculated based on the CKD-EPI 2020 equation Sodium 04/09/2024 12:25:48 140 135-146 (m mol/L) Final Potassium 04/09/2024 12:25:48 5.9 Above high normal 3. 5-5.1 (mmol/L) Final Cl 04/09/2024 12:25:48 101 98-107 (mm ol/L) Final CO2 04/09/2024 12:25:48 25 22-32 (mmo l/L) Final Anion gap 04/09/2024 12:25:48 14 7-15 (mmol /L) Final Glucose 04/09/2024 12:25:48 170 Above high normal 70 -120 (mg/dL) Final Albumin 04/09/2024 12:25:48 4.5 3.8-5.0 (g /dL) Final AST (Aspartate aminotransferase) 04/09/2024 12:25:48 15 10-35 (U/L) Fin al Alk Phos 04/09/2024 12:25:48 148 Above high normal 35 -130 (U/L) Final Bilirubin, Total 04/09/2024 12:25:48 1.2 <=1 .2 (mg/dL) Final Calcium 04/09/2024 12:25:48 10.7 Above high normal 8. 4-10.2 (mg/dL) Final Protein 04/09/2024 12:25:48 6.8 6.0-8.3 (g /dL) Final ALT (Alanine aminotransferase) 04/09/2024 12:25:48 12 10-35 (U/L) Shailesh morrison Performing Location [facility] [place] [facility] [address] [facility] [address]
--- OUTSIDE RECORDS SUMMARY | 2024-04-27 21:34 | External Medical Summary ---
Author Name Unknown Address Unknown Organization K01:[facility] - [address] [place] [address] Laboratory Report Ordering Provider Test Date Status ADELAIDE AGGARWAL 04/09/2024 12:25:48 Final Observation Date Value Abnormality Reference (Units ) Status Magnesium 04/09/2024 12:25:48 2.1 1.5-2.6 (m g/dL) Final Performing Location [facility] - [address] [place] [address]
--- OUTSIDE RECORDS SUMMARY | 2024-04-27 21:34 | External Medical Summary | Summary of Care ---
Author Name Unknown Organization [facility] Address [address] [place] [address] Phone [phone] Care Team Providers Care Line Prep Cook Name Role Phone Kasandra Antunez DO Primary Care Provider Reason for Visit * Reason Onset Date Comments FYI 04/05/2024 Encounter Details Date Type Department Care Team (Late st Contact Info) Description 04/05/2024 Telephone Family Practice [facility] [place] [address] [facility] [place] [address] Kasandra Antunez DO [address] [facility] [place] [address] FYI Allergies Active Allergy Reactions Criticality Noted Date Comments Codeine Psych complications 12/05/2011 documented as of this encounter (statuses as of 04/05/2024) Medications Medication Sig Dispensed Refills Start Date [...] Additional Information Patient not taking.Reported on 04/02/2024 Rollator Ultra-Light Use as directed/needed 1 Each 07/05/2022 Active Triamcinolone Acetonide 0.5 % External Cream (Aristocort) Apply topically to affected area 2 times a day. To affected area. 60 g 5 10/11/2022 Active Additional Information Patient not taking.Reported on 03/27/2024 Ondansetron 4 MG Oral Tablet Disintegrating (Zofran) [...] Tablet by mouth in the morning. Active Magnesium 400 MG Oral Tablet Take by mouth. 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 I FIMSed them into chart documented in this encounter Plan of Treatment Upcoming Encounters Date Type Department Care Team (Late st Contact Info) Description 04/09/2024 12:00 PM EDT Office Visit Cardiology, [facility] [address] [place] [address] Maggie Sepulveda PA-C [address] [place] [address] 04/11/2024 11:00 AM EDT Office Visit Family Practice [facility] [address] [facility] [place] [address] Kasandra Antunez, [address] [facility] [place] [address] 08/30/2024 2:30 PM EST Office Visit Cardiology, [facility] [address] [place] [address] Brian Anne MD [address] [place] [address] Scheduled Procedures Name Priority Associated Diagnoses Date/Ti [...] 09/06/2022, 090 05/2022, 01/27/2022, Additional history exists HbA1c 03/23/2024 09/22/2023, 032 04/2023, 10/08/2021, Additional history exists GFR 09/15/2024 03/15/2024, 02/20, 10/19/2023, Additional history exists PTH 09/22/2024 09/22/2023, 090 [...] Documents on File Type Date Recorded Patient Warp Tying Machine Knotter Expl anation Advance Directives and Living Will 06/15/2022 ADVANCE DIRECTIVE / LIVING WILL Healthcare Agents on File Name Relationship Healthcare Agent Relationship Communication Rajeev "Reginald" Chronister Adult Child Health C are Warp Tying Machine Knotter (appointed verbally by patient or by statute hierarchy) Care Teams Line Prep Cook Relationship Specialty Start Date End Date Kasandra Antunez DO [address] [place] [address] PCP - General Family Medicine 10/28/11 documented as of this encounter
--- OUTSIDE RECORDS SUMMARY | 2024-04-27 21:34 | External Medical Summary | Summary of Care ---
Author Name Unknown Organization [facility] Address [address] [place] [address] Phone [phone] Care Team Providers Care Inclusion Internship Name Role Phone Kasandra Antunez Primary Care Provider Encounter Details Date Type Department Care Team (Late st Contact Info) Description 04/02/2024 2:30 PM EDT Home Visit Care Coordination and Integration [address], [place] [id number] Neli Berg, Community Health Public Policy Coordinator [address], [place] [address] Allergies Active Allergy Reactions Criticality Noted Date Comments Codeine Psych complications 12/05/2011 documented as of this encounter (statuses as of 04/02/2024) Medications Medication Sig Dispensed Refills Start Date [...] 09/04/2023 Active Calcitriol 0.5 MCG Oral Capsule (Rocaltrol)Indicati [...] Oral Tablet Take by mouth. Active Accu-Chek Guide w/Device Kit Use as directed. 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 [...] as of this encounter (statuses as of 04/02/2024) Resolved Problems Problem Noted Date Diagnosed Date Resolved Date Acute respiratory failure with hypoxia 10/08/2021 11/03/2021 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 Took quite some time to get pill packs figured out due to them not being correct. CHW sent teams message to CM as well as called CM to get clarification on meds and adjustments that needed to be made. CM reported that she was going to be calling the pharmacy, [facility], to clear things up. project facilitator pacois going to take blister packs tomorrow to have them corrected. CHW suggested someone else managingher meds other than patient. Patient is taking pills and not knowing what she is taking and causingconfusion with meds and putting meds where they dont belong etc. CHW stressed medication safety. Patient stated that she was okay with urgent care physician managing her meds for her. project facilitator explained that there is tension with the son and daughter all the time. Son stays with patient over night and urgent care physician is with her Monday through Monday 9-5. Son is with her on the weekends. CHW suggested that thepaper work that was given to them for POA from doctors needs to be witnessed and notarized and thangiven to doctors office. Also suggested a work from home as well for POA. Neli Berg- Community Health Worker 1 Support Services/[employer] [facility] [email or web address] documented in this encounter Plan of Treatment Upcoming Encounters Date Type Department Care Team (Late st Contact Info) Description 04/09/2024 12:00 PM EDT Office Visit Cardiology, [facility] [address] [place] [address] Maggie Sepulveda PA-C [address] [place] [address] 04/11/2024 11:00 AM EDT Office Visit Family Practice [facility] [address] [facility] [place] [address] Kasandra Antunez, [address] [facility] [place] [address] 08/30/2024 2:30 PM EST Office Visit [facility] [address] [address] Brian Anne MD [address] [place] [address] Scheduled Procedures Name Priority Associated Diagnoses Date/Ti [...] 01/27/2022, Additional history exists HbA1c 03/23/2024 09/22/2023, 12/22, 10/08/2021, Additional history exists GFR 09/15/2024 03/15/2024, [...] Documents on File Type Date Recorded Patient Air Launch Weapons Technician Expl anation Advance Directives and Living Will 06/15/2022 ADVANCE DIRECTIVE / LIVING WILL Healthcare Agents on File Name Relationship Healthcare Agent Relationship Communication Rajeev "Reginald" Chronister Adult Child Health C are Air Launch Weapons Technician (appointed verbally by patient or by statute hierarchy) Care Teams Inclusion Internship Relationship Specialty Start Date End Date Kasandra Antunez DO [address] [place] [address] PCP - General Family Medicine 10/28/11 documented as of this encounter
--- OUTSIDE RECORDS SUMMARY | 2024-04-27 21:34 | External Medical Summary ---
Author Name Unknown Address Unknown Organization [id number] [address] [place] [address] Laboratory Report Ordering Provider Test Date Status ADELAIDE AGGARWAL 04/09/2024 12:25:48 Final Observation Date Value Abnormality Reference (Units ) Status WBC, Total 04/09/2024 12:25:48 11.84 Above high normal 4 .00-10.80 (K/uL) Final RBC 04/09/2024 12:25:48 3.77 3.85-5.15 (M/uL) Final Hemoglobin 04/09/2024 12:25:48 12.4 12.0-15.3 (g/dL) Final HCT 04/09/2024 12:25:48 39.0 36.0-45.2 (%) Final MCV 04/09/2024 12:25:48 103.4 81.5-97.5 (fL) Final MCH 04/09/2024 12:25:48 32.9 27.0-34.0 (pg) Final MCHC 04/09/2024 12:25:48 31.8 32.0-36.0 (g/dL) Final RDW 04/09/2024 12:25:48 16.7 11.5-15.5 (%) Final Platelets 04/09/2024 12:25:48 311 140-400 (K /uL) Final MPV 04/09/2024 12:25:48 11.0 6.6-11.1 ( fL) Final Performing Location [facility] [address] [place] [address]
--- OUTSIDE RECORDS SUMMARY | 2024-04-27 21:34 | External Medical Summary | Summary of Care ---
Author Name Unknown Organization [facility] Address [address] [place] [address] Phone [phone] Care Team Providers Care Green Material Value Added Assessor Name Role Phone Kasandra Antunez DO Primary Care Provider Reason for Visit * Reason Comments Hospital Follow-Up Encounter Details Date Type Department Care Team (Late st Contact Info) Description 03/26/2024 11:00 AM EDT Office Visit [facility] [place] [address] [facility] [place], [place] [address] Kasandra Antunez DO [address] [facility] [place] [address] Atrial fibrillation with rapid ventricular response (HCC)*; Chronic heart failure with reduced ejection fraction and diastolic dysfunction (HCC); 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 (HCC); Tachy-leeanne syndrome (HCC); Cardiac pacemaker in situ; Shortness of breath; 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 1 Device 0 6 Active Additional Information Patient not taking.Reported on 03/27/2024 [facility]. Devices Accu-check guide glucometer kit and lancets [...] one three days per week. 68 Tablet 3 Active Calcitriol 0.5 MCG Oral Capsule [...] THE MORNING 90 Tablet 1 4 Active Accu-Chek Guide w/Device Kit Use as directed. 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 Never true 04/05/2024 Childcare Answer Date Recorded Do you feel overwhelmed with taking care of a child, family member or friend? No 04/05/2024 Does your family need help f inding childcare? (Household - for ages 0-17 years) Not on file 04/05/2024 Clothing Answer Date Recorded Have you been unable to get clothing when it was really needed? No 04/05/2024 Is your family able to get c lothes or diapers when needed? (Household - for ages 0-17 years) Not on file 04/05/2024 Personal Safety Answer Date Recorded Do you feel unsafe or have concerns for your saf ety? No 04/05/2024 Do you have concerns for you r family's safety? (Household - for ages 0-17 years) Not on file 04/05/2024 Utilities Answer Date Recorded Do you have trouble paying y our heating, water, or electric bill? No 04/05/2024 Is your family able to pay t he heat, water, or electric bill? (Household - for ages 0-17 years) Not on file 04/05/2024 Does your family have access to good internet? (Household - for ages 0-17 years) Not on file 04/05/2024 Employment Status Answer Date Recorded Are you unemployed or without regular income? No 04/05/2024 Does the household have a re gular source of income? (Household - for ages 0-17 years) Not on file 04/05/2024 Social Connections Answer Date Recorded How often do you feel lonely or isolated from th ose around you? Never 04/05/2024 Financial Resource Strain Answer Date R ecorded Do you have any trouble payi ng for your medications, or do you think you might in the future? No 04/05/2024 Does your family have troubl e paying for medicine? (Household - for ages 0-17 years) Not on file 04/05/2024 Transportation Needs Answer Date Record ed READ ONLY Do you have troubl e getting a ride to medical visits or work? Never True 04/05/2024 Does your family have a hard time getting a ride to doctors visits? (Household - for ages 0-17 years) Not on file 04/05/2024 Has lack of transportation k ept you from medical appointments, meetings, work, or from getting things needed for daily living? Check all that apply. (Adult - for ages 18 years and over) Not on file 04/05/2024 Do you (or your family) have trouble finding or paying for a ride (transportation)? (Household - for ages 0-17 years) Not on file 04/05/2024 Housing Stability Answer Date Recorded Do you currently live in a s helter or have no steady place to sleep at night? No 04/05/2024 READ ONLY Do you think you a re at risk of becoming homeless? No 04/05/2024 Does your family worry about paying for your home or becoming homeless? (Household - for ages 0-17 years) Not on file 0 04/05/2024 Are you homeless or worried that you might be in the future? (Adult - for ages 18 years and over) Not on file Are you (or your family) zi eless or worried that you might be in the future? (Household - for ages 0-17 years) Not on file Food Insecurity Answer Date Recorded Do you need food for this week? No 04/05/2024 Are you able to get enough f ood for your family? (Household - for ages 0-17 years) Not on file 04/05/2024 Does your family need food t his week? (Household - for ages 0-17 years) Not on file 04/05/2024 Do you always have enough fo od for your family? (Household - for ages 0-17 years) Not on file 04/05/2024 Sex and Gender Information Value Date Recorded Sex Assigned at Not on file Gender Identity Not on file Sexual Orientation Not on file Job Start Date Occupation Industry Not on file Not on file Not on file documented as of this encounter Last Filed Vital Signs Vital Sign Reading Time Taken Comments Blood Pressure 104/62 03/26/2024 10:58 AM EDT Pulse 78 03/26/2024 10:58 AM EDT Temperature 36.7 C (98 F) 03/26/2024 10:58 AM EDT Respiratory Rate 20 03/26/2024 10:58 AM EDT Oxygen Saturation - - Inhaled Oxygen Concentration - - Weight 73 kg (161 lb) 03/26/2024 10:58 AM EDT Height - - Body Mass Index 31.44 02/27/2024 3:15 PM EDT documented in this encounter Progress Notes * Kasandra Antunez, - 03/26/2024 11:22 AM EDT Images from the original note were not included. Subjective: Nancy Gabriel is a 78 year old female. Chief Complaint Patient presents with Hospital Follow-Up HPI: Hospital records, labs, studies, and discharge instructions reviewed with patient Admitted to [facility] 02/28-03/07/2024 Had SOB noticed with talking by family- brought to ED. Found to have AFRVR, acute on chronic SHF PHM: Patient Active Problem List Diagnosis Hyperlipidemia [...] Current Outpatient Medications Medication Sig Dispense Refill Atorvastatin Calcium 40 MG Oral Tablet (Lipitor) [...] MORNING AND AT BEDTIME 180 Tablet 1 Escitalopram Oxalate 10 MG Oral Tablet (Lexapro) TAKE 1 TABLET BY MOUTH ONCE DAILY IN THE MORNING 90 Tablet 1 Levothyroxine Sodium 88 MCG Oral [...] mouth in the morning. 3 Capsule 11 Furosemide 20 MG Oral Tablet (Lasix) Take 1 Tablet by mouth in the morning and 1 Tablet before bedtime. Plus additional one three days per week. 68 Tablet 11 Nitroglycerin 0.4 MG Sublingual Tablet [...] Ultra-Light Use as directed/needed 1 Each 0 amLODIPine Besylate 2.5 MG Oral Tablet (Norvasc) Take by mouth 1 Tablet before bedtime. 90 Tablet 3 Acetaminophen 325 MG Oral Tablet Take 1 Tablet by mouth every 6 hours as needed. Depend Adjustable Underwear Lg Use twice daily 64 Each 11 Misc. Devices Accu-check guide glucometer kit and lancets E11.9 Use daily as directed (Patient not taking: Reported on 04/02/2024) 1 Each 0 Spacer/Aero-Holding Chambers SISI Use with inhaler. (Patient not taking: Reported on 03/27/2024) 1 Device 0 Metoprolol Succinate ER 100 MG Oral Tablet Extended Release 24 Hour (toPROL XL) Take 1 Tablet by mouth in the morning and 1 Tablet before bedtime. Accu-Chek Guide In Vitro Strip (Glucose Blood) Check sugars once daily E11.9 (Patient not taking: Reported on 04/02/2024) 100 Strip 3 Accu-Chek Guide w/Device Kit Use as directed. Check sugars once daily E11.9 (Patient not taking: Reported on 04/02/2024) 1 Kit 0 Accu-Chek Softclix Lancets Check sugars once daily E11.9 (Patient not taking: Reported on 04/02/2024) 100 Each 3 Potassium Chloride ER 20 MEQ Oral Tablet Extended Release Take 1 Tablet by mouth in the morning. Digoxin 125 MCG Oral Tablet (Lanoxin) 1 Tablet. Takes Monday and Monday Mornings Docusate Sodium 100 MG Oral Capsule (Colace) 1 Capsule in the morning and 1 Capsule before bedtime. No current facility-administered medications for this visit. Review of patient's allergies indicates: Allergen Reactions Codeine Psych complications Objective: BP 104/62 | Pulse 78 | Temp 36.7 C (98 F) (Tympanic) | Resp 20 | Wt 73 kg (161 lb) | BMI 31.44 kg/m | BSA 1.76 m Physical Exam: General: alert, healthy, and no distress Head: Normocephalic, No masses, lesions, tenderness or abnormalities Neck: supple, no adenopathy, no bruits, thyroid normal size, non-tender, without nodularity Heart: regular rate & rhythm, no murmur, and no gallops Lungs: chest symmetric with normal AP diameter, no chest deformities noted, no chest wall tenderness, lungs clear to auscultation Pulses: carotid=2/4 w/o bruits Extremities: less than 2 second capillary refill, no joint deformities, effusion, or inflammation [facility] Reference Range & Units 01/16/23 12:22 01/26/23 12:48 05/08/23 10:12 05/17/23 14:31 05/31/23 15:55 09/04/23 11:21 09/22/23 14:34 09/22/23 14:42 09/25/23 11:02 10/19/23 11:17 02/27/24 16: 05:46 03/14/24 05:47 03/15/24 05:29 BNP, NT-Pro <300 pg/mL 3,202 (H) Triglycerides <=174 mg/dL 95 Cholesterol <200 mg/dL 107 Non-HDL Cholesterol <=159 mg/dL 53 HDL Cholesterol >49 mg/dL 54 LDL Cholesterol <=129 mg/dL 34 Sodium 135 - 146 mmol/L 141 140 140 140 140 139 139 142 144 Potassium 3.5 - 5.1 mmol/L 5.2 (H) 4.7 4.6 4.6 4.3 4.7 4.8 4.2 4.0 Chloride 98 - 107 mmol/L 103 103 104 103 105 102 103 104 105 CO2 22 - 32 mmol/L 25 22 25 25 24 23 24 23 25 BUN 6 - 20 mg/dL 33 (H) 28 (H) 34 (H) 32 (H) 37 (H) 34 (H) 23 (H) 51 (H) 43 (H) Creatinine 0.5 - 1.0 mg/dL 2.2 (H) 2.2 (H) 2.1 (H) 2.0 (H) 2.0 (H) 2.1 (H) 1.9 (H) 2.1 (H) 2.1 (H) Estimated Glomerular Filtration Rate >=60 mL/min 22 (L) 22 (L) 24 (L) 25 (L) 25 (L) 24 (L) 27 (L) 23 (L) 23 (L) Anion Gap 7 - 15 mmol/L 13 15 11 12 11 14 12 15 14 Glucose 70 - 120 mg/dL 131 (H) 123 (H) 123 (H) 100 140 (H) 143 (H) 165 (H) 107 101 Calcium 8.4 - 10.2 mg/dL 10.1 9.8 9.2 9.6 9.6 9.5 9.2 9.9 9.8 Protein 6.0 - 8.3 g/dL 7.3 Estimated Average Glucose <126 mg/dL 117 137 (H) Folic Acid >4.5 ng/mL >20.0 PTH 15 - 65 pg/mL 106 (H) PTH Rpt ! Hemoglobin A1C 4.0 - 5.6 % 5.7 (H) 6.4 (H) TSH 0.27 - 4.20 uIU/mL 0.73 1.38 TSH WITH FREE T4 IF INDICATED Rpt CBC Rpt ! Rpt ! Rpt ! Rpt ! Rpt ! WBC 4.00 - 10.80 K/uL 7.51 6.50 7.98 7.47 9.39 8.44 RBC 3.85 - 5.15 M/uL 3.46 3.07 3.08 3.27 3.58 3.60 HGB 12.0 - 15.3 g/dL 11.2 (L) 10.1 (L) 9.9 (L) 10.4 (L) 11.5 (L) 11.4 (L) HCT 36.0 - 45.2 % 35.3 (L) 32.0 (L) 34.1 (L) 34.3 (L) 37.3 37.6 MCV 81.5 - 97.5 fL 102.0 104.2 110.7 104.9 104.2 104.4 MCH 27.0 - 34.0 pg 32.4 32.9 32.1 31.8 32.1 31.7 MCHC 32.0 - 36.0 g/dL 31.7 31.6 29.0 30.3 30.8 30.3 RDW 11.5 - 15.5 % 17.9 18.4 18.0 16.7 15.3 15.4 PLT 140 - 400 K/uL 294 248 275 314 308 297 MPV 6.6 - 11.1 fL 10.8 10.7 11.5 10.8 10.8 11.0 CBC WITH WBC DIFFERENTIAL Rpt ! Rpt ! ANEMIA CBC Rpt ! Absolute Neutrophils 1.80 - 7.70 K/uL 3.45 5.17 4.87 Absolute Lymphocytes 1.00 - 4.80 K/ul 1.63 1.72 1.27 Absolute Monocytes 0.00 - 1.10 K/uL 1.26 (H) 0.91 1.12 (H) Absolute Eosinophils 0.00 - 0.70 K/uL 0.12 0.08 0.12 Absolute Basophils 0.00 - 0.20 K/uL 0.04 0.06 0.07 IRON SCREEN, INCLUDING TIBC Rpt ! Iron 33 - 151 ug/dL 47 Iron Binding Capacity 250 - 425 ug/dL 351 Transferrin Saturation Percent 15 - 55 % 13 (L) Ferritin 13 - 150 ng/mL 42 Vitamin B12 232 - 1,245 pg/mL 327 Immature Reticuloctye Fraction 2.5 - 20.6 % 23.3 (H) Reticulocyte Hemoglobin 29.7 - 37.4 pg 31.1 Absolute Reticulocyte 31.3 - 100.1 K/uL 77.1 Reticulocyte Percent 0.80 - 1.90 % 2.38 (H) CULTURE, WOUND, SUPERFICIAL, AEROBIC Rpt ! Albumin 3.8 - 5.0 g/dL 4.7 AST 10 - 35 U/L 24 ALT 10 - 35 U/L 23 Alkaline Phosphatase 35 - 130 U/L 152 (H) Bilirubin, Total <=1.2 mg/dL 0.9 Digoxin Level 0.5 - 1.1 ng/mL 1.3 (H) Albumin, Random Urine mg/dL <1.20 Creatinine, Random Urine mg/dL 30 XR CHEST 2 VIEWS Rpt XR WRIST 3 OR MORE VIEWS Rpt ECHO, COMPLETE (2D), TRANS-THORACIC Rpt ALBUMIN / CREATININE RATIO, URINE Rpt ASSESSMENT/PLAN: back to baseline, here with home care helper. 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 | For: Clinic Visit Kasandra Antunez DO documented in this encounter Nursing Notes * Phyllis Singh LPN - 03/26/2024 10:56 AM EDT Nancy Gabriel presents for hospital follow up. Medications & HM reviewed. Says she was having trouble breathing and filling up with fluid. Doing better now. Pt accompanied by a staff member from [facility]. documented in this encounter Plan of Treatment Upcoming Encounters Date Type Department Care Team (Late st Contact Info) Description 04/11/2024 11:00 AM EDT Office Visit [facility] [address] [facility] [place] [address] Kasandra Antunez DO 200 [facility] [place] [address] 04/16/2024 12:15 PM EDT Scheduled Telephone Care Coordination and Integration [address] [place] [address] Carmelina Crane OSA [address] [place] [address] 04/23/2024 9:45 AM EDT Scheduled Telephone Care Coordination and Integration [address] [place] [address] Carmelina Crane BRITTANY [address] [place] [address] 08/30/2024 2:30 PM EST Office Visit Cardiology, [facility] [address] [place] [address] Brian Anne MD [address] [place] [address] Scheduled Procedures Name Priority Associated Diagnoses Date/Ti [...] as of this encounter Visit Diagnoses Diagnosis Atrial fibrillation with rapid ventricular response (HCC)- Primary Atrial fibrillation Chronic heart failure with reduced ejection fraction and diastolic dysfunction (HCC) 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 (HCC) Tachy-leeanne syndrome (HCC) Sinoatrial node dysfunction Cardiac pacemaker in situ Shortness of breath 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, without behavioral disturbance (HCC) Aspiration pneumonia of right lower lobe due to vomit (HCC) Chronic ischemic right MCA stroke Transient ischemic attack (TIA), and cerebral infarction without residual deficits CKD (chronic kidney disease) stage 4, GFR 15-29 ml/min (HCC) Chronic kidney disease, Stage IV (severe) Amiodarone toxicity, accidental or unintentional, sequela documented in this encounter Advance Directives Documents on File Type Date Recorded Patient Deckhand Maintenance Expl anation Power of Carpenter Mate 04/08/2024 signed on 04/05/2024 POWER OF LEAD NEURODIAGNOSTIC TECHNOLOGIST Advance Directives and Living Will 06/15/2022 ADVANCE DIRECTIVE / LIVING WILL Healthcare Agents on File Name Relationship Healthcare Agent Relationship Communication Rajeev "Reginald" Chronister Adult Child Health C are Deckhand Maintenance (appointed verbally by patient or by statute hierarchy) Care Teams Green Material Value Added Assessor Relationship Specialty Start Date End Date Kasandra Antunez DO [address] [place] [address] PCP - General Family Medicine 1/6/12 documented as of this encounter
--- OUTSIDE RECORDS SUMMARY | 2024-04-27 21:34 | External Medical Summary | Summary of Care ---
Author Name Unknown Organization [facility] Address [address] [place] [address] Phone [phone] Care Team Providers Care Animal Sitter Name Role Phone Vilma Antunez Primary Care Provider Reason for Visit * Reason Onset Date Comments Medication Refill 04/02/2024 Encounter Details Date Type Department Care Team (Late st Contact Info) Description 04/02/2024 Refill Care Coordination and Integration [address], [place] [id number] Neli Heath, RN [address], [place] [id number] Allergies Active Allergy Reactions Criticality Noted Date Comments Codeine Psych complications 12/05/2011 documented as of this encounter (statuses as of 04/02/2024) Medications Medication Sig Dispensed Refills Start Date End Date Status Spacer/Aero-Holding Chambers SISI Use with inhaler. 1 Device 0 01/22/2016 Active Additional Information Patient not taking.Reported on 03/27/2024 [facility]. Devices Accu-check guide glucometer kit and lancets [...] daily E11.9 100 Strip 3 04/02/2024 Active Accu-Chek Guide w/Device Kit [...] diastolic dysfunction 01/01/2024 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 [...] hypoxia 10/08/2021 11/03/2021 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 [facility] 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 diabetes [...] encounter Miscellaneous Notes * Telephone Encounter - Vilma Antunez DO - 04/02/2024 4:22 PM EDT Signed Prescriptions: Disp Refills Accu-Chek Softclix Lancets 100 Ea*3 Sig: Check sugars once daily E11.9 Authorizing Provider: VILMA ANTUNEZ Accu-Chek Guide w/Device Kit 1 Kit 0 Sig: Use as directed. Check sugars once daily E11.9 Authorizing Provider: VILMA ANTUNEZ Accu-Chek Guide In Vitro Strip (Glucose Bl*100 St*3 Sig: Check sugars once daily E11.9 Authorizing Provider: VILMA ANTUNEZ * Telephone Encounter - Neli Heath RN - 04/02/2024 4:16 PM EDT Pt requesting new blood glucose monitor and testing strips. documented in this encounter Plan of Treatment Upcoming Encounters Date Type Department Care Team (Late st Contact Info) Description 04/09/2024 12:00 PM EDT Office Visit Cardiology [facility] [address] [place] [address] Maggie Sepulveda PA-C [address] [place] [id number] 04/11/2024 11:00 AM EDT Office Visit Family Practice 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
--- NOTE | 2024-04-27 22:03 | Emergency Department Note ---
History of Present Illness General Chief complaint: Hyperglycemia Stated complaint: WEAKNESS IN BOTH LEGS, HYPERGLYCEMIA, FEELS WEIRD Time Seen by Provider: 04/27/24 21:36 History of Present Illness This 78-year-old female presents ER complaining of not feeling right and concerns about her blood sugars being elevated. She does not take any of her blood sugars. Patient states she just feels off. Patient has chest pain, dyspnea, headache, vision problems, vomiting, diarrhea. She states she feels weak. She has a history of heart failure. She did not really eat anything today. Home Medications Medication Instructions Recorded Confirmed Type allopurinol 100 mg tablet 100 mg PO QAM 06/11/19 04/27/24 History clopidogrel 75 mg tablet 75 mg PO QAM #30 tabs 02/24/20 04/27/24 Rx nitroglycerin 0.4 mg sublingual 0.4 mg sublingual UD PRN chest 05/11/22 04/27/24 Rx tablet (Nitrostat) pain #10 tabs furosemide 20 mg tablet 20 mg PO DAILY 09/18/22 04/28/24 History atorvastatin 40 mg tablet 40 mg PO HS 01/06/23 04/27/24 History famotidine 20 mg tablet 20 mg PO AMHS 01/06/23 04/27/24 History albuterol sulfate 90 mcg/actuation 2 puff inhalation QID 03/28/23 04/27/24 History aerosol inhaler (Ventolin HFA) levothyroxine 88 mcg tablet 88 mcg PO QAM 03/28/23 04/27/24 History ondansetron 4 mg disintegrating 4 mg translingual Q8 PRN n/v 03/28/23 04/27/24 History tablet apixaban 2.5 mg tablet (Eliquis) 2.5 mg PO BID 02/29/24 04/27/24 History calcitriol 0.5 mcg capsule 0.5 mcg PO QAM 02/29/24 04/27/24 History digoxin 125 mcg (0.125 mg) tablet 0.125 mg PO MoWeFr@1600 #12 tabs 03/07/24 04/27/24 Rx (Digitek) docusate sodium 100 mg capsule 100 mg PO BID 03/29/24 04/27/24 History isosorbide mononitrate 30 mg 30 mg PO QAM 03/29/24 04/27/24 History tablet,extended release 24 hr magnesium oxide 400 mg (241.3 mg 400 mg PO DAILY #30 tabs 03/31/24 04/27/24 Rx magnesium) tablet escitalopram oxalate 20 mg tablet 20 mg PO QAM 04/27/24 04/27/24 History metoprolol succinate 100 mg 100 mg PO AMHS 04/27/24 04/27/24 History tablet,extended release 24 hr Allergies Allergy/AdvReac Type Severity Reaction Status Date / Time codeine Allergy Intermediate PSCHO Verified 03/29/24 23:06 COMPLICATIONS PER [facility] Past Med/Surg History Problem List (Updated 04/27/24 @ 23:49 by Grecia You PA-C) Defibrillator discharge (Acute) Weakness (Acute) CHF (congestive heart failure) (Acute) Acute hypokalemia (Acute) Weakness (Acute) Hypomagnesemia (Acute) Pneumonia Cardiac pacemaker Nonischemic cardiomyopathy Atrial fibrillation with rapid ventricular response (Acute) Dyspnea (Acute) Hypoxia (Acute) Pulmonary edema (Acute) Pleural effusion Acute on chronic HFrEF (heart failure with reduced ejection fraction) Aspiration pneumonia Pulmonary edema (Acute) Acute exacerbation of CHF (congestive heart failure) (Acute) Acute respiratory failure with hypoxia (Acute) CKD (chronic kidney disease), stage IV Tachycardia-bradycardia syndrome Paroxysmal atrial fibrillation Pneumonia (Acute) Hypoxia (Acute) Intractable nausea and vomiting (Acute) Paroxysmal atrial fibrillation with RVR (Acute) Atrial fibrillation with RVR Generalized weakness History of right MCA stroke Dyslipidemia Type 2 diabetes mellitus HTN (hypertension) (Chronic) Pain, dental (Acute) Atrial fibrillation (Chronic) Medical History Pneumonia Acute systolic (congestive) heart failure LBBB (left bundle branch block) History of adenomatous polyp of colon Degenerative disc disease, cervical Hearing loss MELQUIADES (generalized anxiety disorder) GERD without esophagitis Vitamin D deficiency Hypertensive cardiomegaly Surgical History History of D&C History of excision of lesion Back - Dr. Tucker History of carpal tunnel surgery History of arthroplasty of left knee Family History Other Diabetes Heart disease Social History Smoking Status: Never smoker Second Hand Exposure: No; Do You Dip or Chew Tobacco: No; Hx Alcohol Use: No Hx Substance Use: No Preferred Language: Yakut Communication Ability: Impaired Hearing Ability: Hard of Hearing It Application Support Analyst Required: No Beliefs That Will Affect Care: None marital status: / Current Living Situation: Family Current Living Situation Comment: son Feels Safe at Home: Yes Assistive Devices: Cane and Walker Review of Systems A total of 10 systems reviewed and were otherwise negative Physical Exam Vital Signs Vital Signs - 24 hr 04/27/24 21:35 04/27/24 22:03 04/27/24 22:03 Temperature 36.8 C Temperature Source Temporal Artery Scan Pulse Rate 100 H Pulse Rate [Apical] 115 H Pulse Rate from SpO2 Sensor Pulse Rhythm [Apical] Irregular Respiratory Rate 18 19 Respiratory Effort / Characteristics Non-Labored Spontaneous Non-Labored Spontaneous Respiratory Depth Normal Normal Respiratory Pattern Regular Regular Blood Pressure 91/55 L Blood Pressure [Right Arm] 111/87 Blood Pressure Mean 67 Blood Pressure Mean [Right Arm] 95 Pulse Oximetry 95 96 96 Oxygen Delivery Method Room Air Room Air Room Air Sepsis Recent Fever Within 48 Hours No Sepsis New/Unexplained Change in Mental Status N/A Sepsis Action Taken by Nursing No Action Required 04/27/24 22:04 04/27/24 22:30 04/27/24 23:00 Temperature Temperature Source Pulse Rate 126 H 97 H 118 H Pulse Rate [Apical] Pulse Rate from SpO2 Sensor 101 H 116 H Pulse Rhythm [Apical] Respiratory Rate 20 16 Respiratory Effort / Characteristics Respiratory Depth Respiratory Pattern Blood Pressure 113/74 124/81 Blood Pressure [Right Arm] Blood Pressure Mean 90 95 Blood Pressure Mean [Right Arm] Pulse Oximetry 92 96 Oxygen Delivery Method Room Air Room Air Sepsis Recent Fever Within 48 Hours Sepsis New/Unexplained Change in Mental Status Sepsis Action Taken by Nursing 04/27/24 23:30 Temperature Temperature Source Pulse Rate Pulse Rate [Apical] 111 H Pulse Rate from SpO2 Sensor Pulse Rhythm [Apical] Irregular Respiratory Rate 19 Respiratory Effort / Characteristics Non-Labored Spontaneous Respiratory Depth Normal Respiratory Pattern Regular Blood Pressure Blood Pressure [Right Arm] 109/93 Blood Pressure Mean Blood Pressure Mean [Right Arm] 98 Pulse Oximetry 95 Oxygen Delivery Method Room Air Sepsis Recent Fever Within 48 Hours Sepsis New/Unexplained Change in Mental Status Sepsis Action Taken by Nursing VITALS: Vitals are noted on the nurse's note and reviewed by myself. Vital signs stable. GENERAL: Pleasant elderly female following commands, in no acute distress, nondiaphoretic, well-developed well-nourished. SKIN: Capillary reflex less than 2 seconds. HEENT: Normocephalic. PERRLA. EOMI. Nares patent. Mucous membranes moist. Neck is supple without nuchal rigidity. HEART: Regular rate and rhythm LUNGS: Clear to auscultation bilaterally without wheezes, rales or rhonchi. No retractions or accessory muscle use. ABDOMEN: Positive bowel sounds x 4. Normal tympanic percussion. Soft, nontender, without masses or organomegaly. Benton sign negative. No guarding or rebound tenderness. no CVA tenderness MUSCULOSKELETAL: No gross musculoskeletal defects. 5-5 strength throughout NEURO: Patient was alert and oriented to person place and time. No focal neurological deficits. Course Administered Medications Discontinued Medications Furosemide (Furosemide 40 Mg/4 Ml Vial) 40 mg IV ONE ONE Stop: 04/27/24 23:08 Last Admin: 04/27/24 23:39 Dose: 40 mg Documented By: CHELITA Medical Decision Making Medical Records Attestation: I reviewed the patient's medical records. Home Medications Current Medication List: was personally reviewed by me Laboratory Data Attestation: I reviewed the patient's lab results. 04/27/24 21:55 04/27/24 21:55 Lab Results 04/27/24 04/27/24 04/27/24 Range/Units 21:38 21:43 21:55 WBC 11.98 H (4.8-10.8) K/ul RBC 3.53 L (4.20-5.40) M/uL Hgb 11.4 L (12.0-16.0) g/dl Hct 36.5 L (37.0-47.0) % MCV 103.4 H (80.0-100.0) fL MCH 32.3 (25.0-34.0) pg MCHC 31.2 L (32.0-36.0) g/dL RDW Std Deviation 65.7 H (36.4-46.3) fL RDW Coeff of Etta 17.4 H (11.5-14.5) % Plt Count 339 (130-400) K/uL MPV 10.9 (9.4-12.4) fL Immature Gran % (Auto) 0.4 % Neut % (Auto) 60.9 % Lymph % (Auto) 24.4 % [place] % (Auto) 12.5 % Eos % (Auto) 1.0 % Baso % (Auto) 0.8 % Neut # (Auto) 7.30 H (1.40-6.50) K/uL Lymph # (Auto) 2.92 (1.20-3.40) K/uL [place] # (Auto) 1.50 H (0.11-0.59) K/uL Eos # (Auto) 0.12 (0.00-0.50) K/uL Baso # (Auto) 0.09 (0.00-0.20) K/uL Immature Gran # (Auto) 0.05 (0.01-0.20) K/uL Absolute Nucleated RBC 0.04 (0.00-0.12) K/uL Nucleated RBC % (auto) 0.3 % VBG pH 7.40 (7.36-7.41) VBG pCO2 37 L (38-50) mmHg VBG pO2 44 mmHg VBG HCO3 23 mmol/L VBG O2 Saturation 71.7 % VBG Base Excess -1.5 mEq/L Sodium 139 (136-145) mmol/L Potassium 3.9 (3.5-5.1) mmol/L Chloride 104 (98-107) mmol/L Carbon Dioxide 24 (21-32) mmol/L Anion Gap 11 (3-11) BUN 35 H (6-23) mg/dl Creatinine 2.55 H (0.6-1.2) mg/dl Est Cr Clr Drug Dosing Not Reportable Est GFR ( Amer) 20.2 ml/min Est GFR (Non-Af Amer) 17.4 ml/min BUN/Creatinine Ratio 13.7 (10-20) Glucose 198 H (70-99(Fasting)) mg/dl POC Glucose 205 H (70-99) mg/dl Lactate 3.0 H* (0.4-2.0) mmol/L Calcium 9.7 (8.6-10.3) mg/dl Magnesium 2.0 (1.7-2.4) mg/dl Total Bilirubin 1.2 H (0.2-1.0) mg/dl AST 11 L (13-39) U/L ALT 8 (7-52) U/L Alkaline Phosphatase 111 H (34-104) U/L Total Creatine Kinase 34 (26-192) U/L Troponin I High Sens 10.3 (0-14) pg/ml B-Natriuretic Peptide 2254 H (0-100) pg/ml Total Protein 7.1 (6.0-8.3) gm/dl Albumin 4.3 (3.4-5.0) gm/dl Globulin 2.8 (2.5-4.0) gm/dl Albumin/Globulin Ratio 1.5 (0.9-2) TSH 1.848 (0.300-4.500) uIu/ml Urine Color Urine Appearance (Clear) Urine pH (4.5-7.5) Ur Specific [place] (1.000-1.030) Urine Protein (Negative) Urine Glucose (UA) (Negative) Urine Ketones (Negative) Urine Blood (Negative) Urine Nitrite (Negative) Urine Bilirubin (Negative) Urine Urobilinogen (Negative) Ur Leukocyte Esterase (Negative) Urine WBC (Auto) (0-5) /hpf Urine RBC (Auto) (0-2) /hpf U Hyaline Cast (Auto) (0-2) /lpf U Epithel Cells (Auto) (0-2) /hpf Urine Bacteria (Auto) (None Seen) Digoxin < 0.3 L (0.8-2.0) ng/ml Adenovirus (PCR) Not Detected (NotDetected) B. pertussis DNA (PCR) Not Detected (NotDetected) B.parapertussis DNA PCR Not Detected (NotDetected) C. pneumoniae DNA (PCR) Not Detected (NotDetected) Coronavirus OC43 (PCR) Not Detected (NotDetected) Coronavirus HKU1 (PCR) Not Detected (NotDetected) Coronavirus 229E (PCR) Not Detected (NotDetected) SARS-CoV-2 (PCR) Not Detected (NotDetected) Coronavirus NL63 (PCR) Not Detected (NotDetected) Human Metapneumovir PCR Not Detected (NotDetected) Influenza Type A (PCR) Not Detected (NotDetected) Influenza Type B (PCR) Not Detected (NotDetected) M. pneumoniae (PCR) Not Detected (NotDetected) Parainfluenza 1 (PCR) Not Detected (NotDetected) Parainfluenza 2 (PCR) Not Detected (NotDetected) Parainfluenza 3 (PCR) Not Detected (NotDetected) Parainfluenza 4 (PCR) Not Detected (NotDetected) RSV (PCR) Not Detected (NotDetected) Entero/Rhino (PCR) Not Detected (NotDetected) 04/27/24 Range/Units 22:06 WBC (4.8-10.8) K/ul RBC (4.20-5.40) M/uL Hgb (12.0-16.0) g/dl Hct (37.0-47.0) % MCV (80.0-100.0) fL MCH (25.0-34.0) pg MCHC (32.0-36.0) g/dL RDW Std Deviation (36.4-46.3) fL RDW Coeff of Etta (11.5-14.5) % Plt Count (130-400) K/uL MPV (9.4-12.4) fL Immature Gran % (Auto) % Neut % (Auto) % Lymph % (Auto) % [place] % (Auto) % Eos % (Auto) % Baso % (Auto) % Neut # (Auto) (1.40-6.50) K/uL Lymph # (Auto) (1.20-3.40) K/uL [place] # (Auto) (0.11-0.59) K/uL Eos # (Auto) (0.00-0.50) K/uL Baso # (Auto) (0.00-0.20) K/uL Immature Gran # (Auto) (0.01-0.20) K/uL Absolute Nucleated RBC (0.00-0.12) K/uL Nucleated RBC % (auto) % VBG pH (7.36-7.41) VBG pCO2 (38-50) mmHg VBG pO2 mmHg VBG HCO3 mmol/L VBG O2 Saturation % VBG Base Excess mEq/L Sodium (136-145) mmol/L Potassium (3.5-5.1) mmol/L Chloride (98-107) mmol/L Carbon Dioxide (21-32) mmol/L Anion Gap (3-11) BUN (6-23) mg/dl Creatinine (0.6-1.2) mg/dl Est Cr Clr Drug Dosing Est GFR ( Amer) ml/min Est GFR (Non-Af Amer) ml/min BUN/Creatinine Ratio (10-20) Glucose (70-99(Fasting)) mg/dl POC Glucose (70-99) mg/dl Lactate (0.4-2.0) mmol/L Calcium (8.6-10.3) mg/dl Magnesium (1.7-2.4) mg/dl Total Bilirubin (0.2-1.0) mg/dl AST (13-39) U/L ALT (7-52) U/L Alkaline Phosphatase (34-104) U/L Total Creatine Kinase (26-192) U/L Troponin I High Sens (0-14) pg/ml B-Natriuretic Peptide (0-100) pg/ml Total Protein (6.0-8.3) gm/dl Albumin (3.4-5.0) gm/dl Globulin (2.5-4.0) gm/dl Albumin/Globulin Ratio (0.9-2) TSH (0.300-4.500) uIu/ml Urine Color Yellow Urine Appearance Clear (Clear) Urine pH 5.5 (4.5-7.5) Ur Specific [place] 1.014 (1.000-1.030) Urine Protein Trace H (Negative) Urine Glucose (UA) Negative (Negative) Urine Ketones Negative (Negative) Urine Blood Negative (Negative) Urine Nitrite Negative (Negative) Urine Bilirubin Negative (Negative) Urine Urobilinogen Negative (Negative) Ur Leukocyte Esterase Trace H (Negative) Urine WBC (Auto) 6-10 H (0-5) /hpf Urine RBC (Auto) 0-2 (0-2) /hpf U Hyaline Cast (Auto) 3-5 H (0-2) /lpf U Epithel Cells (Auto) 3-5 H (0-2) /hpf Urine Bacteria (Auto) None Seen (None Seen) Digoxin (0.8-2.0) ng/ml Adenovirus (PCR) (NotDetected) B. pertussis DNA (PCR) (NotDetected) B.parapertussis DNA PCR (NotDetected) C. pneumoniae DNA (PCR) (NotDetected) Coronavirus OC43 (PCR) (NotDetected) Coronavirus HKU1 (PCR) (NotDetected) Coronavirus 229E (PCR) (NotDetected) SARS-CoV-2 (PCR) (NotDetected) Coronavirus NL63 (PCR) (NotDetected) Human Metapneumovir PCR (NotDetected) Influenza Type A (PCR) (NotDetected) Influenza Type B (PCR) (NotDetected) M. pneumoniae (PCR) (NotDetected) Parainfluenza 1 (PCR) (NotDetected) Parainfluenza 2 (PCR) (NotDetected) Parainfluenza 3 (PCR) (NotDetected) Parainfluenza 4 (PCR) (NotDetected) RSV (PCR) (NotDetected) Entero/Rhino (PCR) (NotDetected) Imaging Data Attestation: I personally reviewed and interpreted this imaging study as follows: MDM Narrative Prior records/ancillary studies reviewed and summarized above. Nursing notes reviewed. Additional history obtained from family. The patient's history was concerning for weakness. Differential diagnosis: Etiologies such as metabolic, infection, hypo/hyperglycemia, electrolyte abnormalities, cardiac sources, intracerebral event, toxicologic, neurologic, as well as others were entertained. Physical examination: As above. ER treatment provided: IV Lock An order was placed for continuous cardiac monitoring. The monitor shows a rate of 60-100 with a sinus rhythm per my interpretation. P.o. fluids On reassessment the patient felt better. Diagnostics interpretation by me: ECG: Ordered for weakness EKG: A-fib with a left bundle with no acute ST-T wave changes. Impression A-fib left bundle independently interpreted by myself The labs Independently Interpreted by myself revealed negative troponin, elevated BNP Hyperglycemia without DKA Mild anemia Digoxin level is low and this was held by cardiology recently as it was high Imaging studies: Chest x-ray concerning for heart failure without pneumothorax per my independent interpretation Consultation: A consultation was placed with the hospitalist. The case was discussed and diagnostics were reviewed. The patient was evaluated in the ER for further treatment. Exam and history seem consistent with heart failure with her defibrillator that has been firing with low digoxin level. I Did ask for the defibrillator to be interrogated. Patient was given Lasix. Medicine was consulted case discussed. Patient admitted to the medical service. Patient is agreeable. By the evaluation outlined above emergent etiologies such as infection, electrolyte abnormalities, intracerebral event, toxologic, neurologic, metabolic, as well as others were deemed relatively unlikely. The pt informed about the findings as listed above. All questions were answered and pleased with the treatment. The chart was completed utilizing [employer] Speech voice recognition software. Grammatical errors, random word insertions, pronoun errors, and incomplete sentences are an occassional consequence of this system due to software limitations, ambient noise, and hardware issues. Any formal questions or concerns about the content, text, or information contained within the body of this dictation should be directly addressed to the physician seismic survey assistant for clarification. Impression & Plan CHF (congestive heart failure), Weakness, Defibrillator discharge Discharge Plan Visit Data Chief Complaint: Hyperglycemia Stated Complaint: WEAKNESS IN BOTH LEGS, HYPERGLYCEMIA, FEELS WEIRD ED Provider: Alaina Chamberlain ED Midlevel Provider: Grecia You Discharge Problem: CHF (congestive heart failure), Weakness, Defibrillator discharge Patient Disposition: Admitted As Inpatient Condition: Good Forms Stand Alone Forms: My [facility] [employer] Prescriptions Prescriptions: No Action clopidogrel 75 mg Tablet 75 mg PO QAM Qty: 30 0RF allopurinol 100 mg tablet 100 mg PO QAM furosemide 20 mg tablet 20 mg PO DAILY Rx Instructions: MAY TAKE ADDITIONAL DOSE IF NEEDED PER [facility] levothyroxine 88 mcg tablet 88 mcg PO QAM albuterol sulfate [Ventolin HFA] 90 mcg/actuation HFA aerosol inhaler 2 puff INHALATION QID ondansetron 4 mg tablet,disintegrating 4 mg translingual Q8 PRN (Reason: n/v) nitroglycerin [Nitrostat] 0.4 mg Tablet, Sublingual 0.4 mg sublingual UD PRN (Reason: chest pain) Qty: 10 0RF Rx Instructions: place under tongue 0.4mg every 5 minutes as needed for pain,chest famotidine 20 mg Tablet 20 mg PO AMHS atorvastatin 40 mg tablet 40 mg PO HS calcitriol 0.5 mcg capsule 0.5 mcg PO QAM Eliquis 2.5 mg tablet 2.5 mg PO BID digoxin [Digitek] 125 mcg (0.125 mg) Tablet 0.125 mg PO MoWeFr@1600 Qty: 12 0RF metoprolol succinate 100 mg tablet extended release 24 hr 100 mg PO AMHS escitalopram oxalate 20 mg tablet 20 mg PO QAM isosorbide mononitrate 30 mg tablet extended release 24 hr 30 mg PO QAM docusate sodium 100 mg capsule 100 mg PO BID magnesium oxide 400 mg (241.3 mg magnesium) tablet 400 mg PO DAILY Qty: 30 0RF Referrals Referrals: Kasandra Antunez DO [Primary Care Provider] - Discharge Problem: CHF (congestive heart failure) Qualifiers: Heart failure type: unspecified Heart failure chronicity: acute Qualified Code(s): I50.9 - Heart failure, unspecified
[2024-04-27 22:10] LABS: Base Excess VBG -1.5 mEq/L; HCO3 VBG 23 mmol/L; Oxygen Saturation VBG 71.7 %; PCO2 VBG 37 mmHg (38-50); PO2 VBG 44 mmHg
[2024-04-27 22:19] LABS: Basophils # (auto) 0.09 K/uL (0.00-0.20); Basophils % (auto) 0.8 %; Eosinophils # (auto) 0.12 K/uL (0.00-0.50); Hematocrit (blood only) 36.5 % (37.0-47.0); Hemoglobin 11.4 g/dl (12.0-16.0); Immature Granulocytes # (auto) 0.05 K/uL (0.01-0.20); Immature Granulocytes % (auto) 0.4 %; Lymphocytes # (auto) 2.92 K/uL (1.20-3.40); Lymphocytes % (auto) 24.4 %; Mean Corpuscular Hemoglobin 32.3 pg (25.0-34.0); Mean Corpuscular Hgb Conc 31.2 g/dL (32.0-36.0); Mean Corpuscular Volume 103.4 fL (80.0-100.0); Mean Platelet Volume 10.9 fL (9.4-12.4); Monocytes % (auto) 12.5 %; Neutrophils % (auto) 60.9 %; Nucleated RBC # (auto) 0.04 K/uL (0.00-0.12); Nucleated RBC % (auto) 0.3 %; Platelet Count 339 K/uL (130-400); RDW Coefficient of Variation 17.4 % (11.5-14.5); RDW Standard Deviation 65.7 fL (36.4-46.3); Red Blood Count 3.53 M/uL (4.20-5.40); White Blood Count 11.98 K/ul (4.8-10.8)
[2024-04-27 22:26] LABS: Appearance Urine Clear (Clear); Bacteria Urine Automated None Seen (None Seen); Bilirubin Urine Negative (Negative); Blood Urine Negative (Negative); Color Urine Yellow; Glucose Urine UA Negative (Negative); Ketones Urine Negative (Negative); Leukocyte Esterase Urine Trace (Negative); Nitrite Urine Negative (Negative); Protein Urine Trace (Negative); RBC Urine Automated 0-2 /hpf (0-2); Specific Gravity Urine 1.014 (1.000-1.030); Urobilinogen Urine Negative (Negative); pH Urine 5.5 (4.5-7.5)
[2024-04-27 22:30] LABS: Alanine Aminotransferase 8 U/L (7-52); Albumin Globulin Ratio 1.5 (0.9-2); Albumin Level 4.3 gm/dl (3.4-5.0); Alkaline Phosphatase 111 U/L (34-104); Anion Gap 11 (3-11); Aspartate Aminotransferase 11 U/L (13-39); BUN Creatinine Ratio 13.7 (10-20); Bilirubin,Total 1.2 mg/dl (0.2-1.0); Blood Urea Nitrogen 35 mg/dl (6-23); Calcium 9.7 mg/dl (8.6-10.3); Carbon Dioxide 24 mmol/L (21-32); Chloride 104 mmol/L (98-107); Creatine Kinase 34 U/L (26-192); Est GFR (African American) 20.2 ml/min; Est GFR (Non-African American) 17.4 ml/min; Globulin 2.8 gm/dl (2.5-4.0); Glucose 198 mg/dl (70-99(Fasting)); Potassium 3.9 mmol/L (3.5-5.1); Sodium 139 mmol/L (136-145); Total Protein 7.1 gm/dl (6.0-8.3)
[2024-04-27 22:36] LABS: Troponin I High Sensitivity 10.3 pg/ml (0-14)
[2024-04-27 22:45] LABS: Thyroid Stimulating Hormone 1.848 uIu/ml (0.300-4.500)
--- NOTE | 2024-04-27 23:24 | Emergency Department Note ---
ED Visit Note I was consulted by the Advanced Practice Provider, Grecia You PA-C. I performed a substantive portion of the visit. This includes aspects of: History: Patient is a 78-year-old female presenting with feeling generally unwell and with hyperglycemia. She states she just does not feel right. Denies chest pain or shortness of breath. States she feels very weak. Has a history of CHF. MDM: - Laboratory workup showed leukocytosis (WBC 11.98); stable electrolytes; elevated lactate (3.0); normal troponin; elevated BNP (2254); normal CK; CKD (Cr 2.55) - CXR negative for pneumonia, per my interpretation - Patient given 40 mg IV lasix in ER. [facility]. .
[2024-04-27] MEDS: FUROSEMIDE 40 MG/4 ML VIAL IV ONE (23:39)
[2024-04-27 23:51] LABS: Adenovirus PCR Not Detected (NotDetected); Bordetella parapertussis PCR Not Detected (NotDetected); Bordetella pertussis PCR Not Detected (NotDetected); Chlamydia pneumoniae PCR Not Detected (NotDetected); Coronavirus 229E PCR Not Detected (NotDetected); Coronavirus CoV-2 (COVID19)PCR Not Detected (NotDetected); Coronavirus HKU1 PCR Not Detected (NotDetected); Coronavirus NL63 PCR Not Detected (NotDetected); Coronavirus OC43PCR Not Detected (NotDetected); Human Metapneumovirus PCR Not Detected (NotDetected); Influenza A PCR Not Detected (NotDetected); Influenza B PCR Not Detected (NotDetected); Mycoplasma pneumoniae PCR Not Detected (NotDetected); Parainfluenza Virus 1 PCR Not Detected (NotDetected); Parainfluenza Virus 2 PCR Not Detected (NotDetected); Parainfluenza Virus 3 PCR Not Detected (NotDetected); Parainfluenza Virus 4 PCR Not Detected (NotDetected); Respiratory Syncytial VirusPCR Not Detected (NotDetected); Rhinovirus/Enterovirus PCR Not Detected (NotDetected)
--- NOTE | 2024-04-28 01:19 | History & Physical Report ---
Date of Service April 28, 2024 Assessment & Plan (1) CHF (congestive heart failure): Plan: 78yo F with a PMH of nonischemic cardiomyopathy, EF 20-24% and grade 3 diastolic dysfunction on echo on 05/17/23, tachybradycardia syndrome s/p pacemaker, paroxysmal atrial fibrillation on Eliquis, CKD IV, prediabetes, HLD, anxiety, history of CVA, dementia, GERD, Generalized anxiety disorder, amiodarone toxicity lives at home with son being present during nighttime and has help during the daytime and ambulates with walker was brought in by her sister as patient getting very weak. She slept for long today. Poor appetite. Not feeling well. Feeling abdominal is bloated and weakness in the legs .In the ER patient her sugars somewhat high in 200s and checks x-ray showed CHF and tachycardia on monitor. Patient somewhat hard of hearing. But able to answer appropriately. Sister in the room helping with H&P. Patient says she has some cough bringing up phlegm. Has some shortness of breath. Denies any chest pain. Denies fevers. No headache. No runny nose or sore throat. Hard of hearing. Vision is okay. No nausea. No abdominal pain. Had an episode of diarrhea today. Micturating okay. Currently no swelling in the legs. Patient was recently in the hospital with weakness and poor appetite and possible pneumonia which was ruled out and found to have hypokalemia and hypomagnesia which were replaced and she did fine and was discharged. She followed with cardiology and outpatient labs showed creatinine of 2.9 and potassium of 5.9 and digoxin level was 1.2. Cardiology advised to hold the digoxin until further notice as per the sisters. And Lasix was changed to 20 mg daily and potassium supplement were stopped. And repeat labs on 04/13/2024 showed potassium of 4.2 and creatinine of 2.4 and and advised to follow current regimen and repeat labs in 10 to 14 days. acute on chronic combined systolic and diastolic CHF EF 20 to 24% and grade 3 diastolic dysfunction on echo 05/17/2023 patient's Lasix dose was decreased due to JUNIOR recently bnp [id number] received a dose of Lasix IV 40 mg in the ER will continue with IV Lasix 40 mg daily will monitor electrolytes. Daily weights and I's and O's will follow serial cardiac enzymes and echo telemetry cardiology consult in a.m. for further recommendations close monitor weakness cough with sputum chest x-ray shows possible CHF we will check CT chest rule out any underlying pneumonia will follow procalcitonin levels empiric Rocephin and doxycycline tachycardia recently digoxin was held because of levels were 1.2 currently digoxin levels are less than 0.3 pacemaker interrogation-report on the chart continue home po metoprolol a dose of iv Lopressor 2.5mg given as patient had an epsiode of Non sustained vtach cardiology consulted close monitor elevated lactic acid possibly from CHF possible sepsis on empiric antibiotics will follow procalcitonin levels. will monitor hemodynamics closely follow repeat levels hyperglycemia history of prediabetes possible new onset diabetes insulin sliding scale will follow blood sugars and HbA1c levels glycemic pharmacy consult JUNIOR on CKD stage IV baseline creatinine around 2 presented with creatinine of 2.5 getting IV Lasix will follow repeat labs if worsening will consult nephrology paroxysmal atrial fibrillation tachybradycardia syndrome s/p pacemaker which was reprogrammed to DDD amiodarone was discontinued due to toxicity on metoprolol succinate and Eliquis recently digoxin was held because of levels were high Close monitor Prolonged QTc avoid QTc prolonging drugs follow repeat EKG hypertension on metoprolol succinate and Imdur and diuretics we will monitor hypothyroidism on Synthyroid TSH is okay history of MCA stroke on Plavix and statin hyperlipidemia on statin generalized anxiety disorder Lexapro which will held for prolonged qtc for now. GERD on Pepcid history of gout on allopurinol DVT prophylaxis on Eliquis disposition telemetry CODE STATUS DNR/DNI as per my discussion with sister. History of Present Illness Chief Complaint: weakness, acute CHF, hypoglycemia Primary Care Provider: Kasandra Antunez, DO 78yo F with a PMH of nonischemic cardiomyopathy, EF 20-24% and grade 3 diastolic dysfunction on echo on 05/17/23, tachybradycardia syndrome s/p pacemaker, paroxysmal atrial fibrillation on Eliquis, CKD IV, prediabetes, HLD, anxiety, history of CVA, dementia, GERD, Generalized anxiety disorder, amiodarone toxicity lives at home with son being present during nighttime and has help during the daytime and ambulates with walker was brought in by her sister as patient getting very weak. She slept for long today. Poor appetite. Not feeling well. Feeling abdominal is bloated and weakness in the legs .In the ER patient her sugars somewhat high in 200s and checks x-ray showed CHF and tachycardia on monitor. Patient somewhat hard of hearing. But able to answer appropriately. Sister in the room helping with H&P. Patient says she has some cough bringing up phlegm. Has some shortness of breath. Denies any chest pain. Denies fevers. No headache. No runny nose or sore throat. Hard of hearing. Vision is okay. No nausea. No abdominal pain. Had an episode of diarrhea today. Micturating okay. Currently no swelling in the legs. Patient was recently in the hospital with weakness and poor appetite and possible pneumonia which was ruled out and found to have hypokalemia and hypomagnesia which were replaced and she did fine and was discharged. She followed with cardiology and outpatient labs showed creatinine of 2.9 and potassium of 5.9 and digoxin level was 1.2. Cardiology advised to hold the digoxin until further notice as per the sisters. And Lasix was changed to 20 mg daily and potassium supplement were stopped. And repeat labs on 04/13/2024 showed potassium of 4.2 and creatinine of 2.4 and and advised to follow current regimen and repeat labs in 10 to 14 days. Past medical history. As mentioned above past surgical history. Left knee arthroscopy. Carpal tunnel surgery. Colonoscopy. Excision of benign lesions trunk. Repair of ventral hernia. Status post pacemaker. Cholecystectomy. Social history. . No smoking. No alcohol use. No drug use. Family history. Father had arthritis. Mother had arthritis. Uterus cancer. Diabetes. Sister has breast cancer. Sister has diabetes hypertension. S ister has valvular heart disease. Sister had hepatitis C. Son had CAD in his 30s. Allergies Allergy/AdvReac Type Severity Reaction Status Date / Time codeine Allergy Intermediate PSCHO Verified 03/29/24 23:06 COMPLICATIONS PER [facility] [place] Medication Instructions Recorded Confirmed Type allopurinol 100 mg tablet 100 mg PO QAM 06/11/19 04/27/24 History clopidogrel 75 mg tablet 75 mg PO QAM #30 tabs 02/24/20 04/27/24 Rx nitroglycerin 0.4 mg sublingual 0.4 mg sublingual UD PRN chest 05/11/22 04/27/24 Rx tablet (Nitrostat) pain #10 tabs furosemide 20 mg tablet 20 mg PO DAILY 09/18/22 04/28/24 History atorvastatin 40 mg tablet 40 mg PO HS 01/06/23 04/27/24 History famotidine 20 mg tablet 20 mg PO AMHS 01/06/23 04/27/24 History albuterol sulfate 90 mcg/actuation 2 puff inhalation QID 03/28/23 04/27/24 History aerosol inhaler (Ventolin HFA) levothyroxine 88 mcg tablet 88 mcg PO QAM 03/28/23 04/27/24 History ondansetron 4 mg disintegrating 4 mg translingual Q8 PRN n/v 03/28/23 04/27/24 History tablet apixaban 2.5 mg tablet (Eliquis) 2.5 mg PO BID 02/29/24 04/27/24 History calcitriol 0.5 mcg capsule 0.5 mcg PO QAM 02/29/24 04/27/24 History digoxin 125 mcg (0.125 mg) tablet 0.125 mg PO MoWeFr@1600 #12 tabs 03/07/24 04/27/24 Rx (Digitek) docusate sodium 100 mg capsule 100 mg PO BID 03/29/24 04/27/24 History isosorbide mononitrate 30 mg 30 mg PO QAM 03/29/24 04/27/24 History tablet,extended release 24 hr magnesium oxide 400 mg (241.3 mg 400 mg PO DAILY #30 tabs 03/31/24 04/27/24 Rx magnesium) tablet escitalopram oxalate 20 mg tablet 20 mg PO QAM 04/27/24 04/27/24 History metoprolol succinate 100 mg 100 mg PO AMHS 04/27/24 04/27/24 History tablet,extended release 24 hr Past Med/Surg History Problem List (Updated 04/27/24 @ 23:49 by Grecia You PA-C) Defibrillator discharge (Acute) Weakness (Acute) CHF (congestive heart failure) (Acute) Acute hypokalemia (Acute) Weakness (Acute) Hypomagnesemia (Acute) Pneumonia Cardiac pacemaker Nonischemic cardiomyopathy Atrial fibrillation with rapid ventricular response (Acute) Dyspnea (Acute) Hypoxia (Acute) Pulmonary edema (Acute) Pleural effusion Acute on chronic HFrEF (heart failure with reduced ejection fraction) Aspiration pneumonia Pulmonary edema (Acute) Acute exacerbation of CHF (congestive heart failure) (Acute) Acute respiratory failure with hypoxia (Acute) CKD (chronic kidney disease), stage IV Tachycardia-bradycardia syndrome Paroxysmal atrial fibrillation Pneumonia (Acute) Hypoxia (Acute) Intractable nausea and vomiting (Acute) Paroxysmal atrial fibrillation with RVR (Acute) Atrial fibrillation with RVR Generalized weakness History of right MCA stroke Dyslipidemia Type 2 diabetes mellitus HTN (hypertension) (Chronic) Pain, dental (Acute) Atrial fibrillation (Chronic) Medical History Pneumonia Acute systolic (congestive) heart failure LBBB (left bundle branch block) History of adenomatous polyp of colon Degenerative disc disease, cervical Hearing loss M[place]QU[place]ADES (generalized anxiety disorder) GERD without esophagitis Vitamin D deficiency Hypertensive cardiomegaly Surgical History History of D&C History of excision of lesion Back - Dr. Tucker History of carpal tunnel surgery History of arthroplasty of left knee Family History Other Diabetes Heart disease Social History Smoking Status: Never smoker Second Hand Exposure: No; Do You Dip or Chew Tobacco: No; Tobacco Cessation Education Requested by Patient: No Hx Alcohol Use: No Hx Substance Use: No Preferred Language: Malay Communication Ability: Effective Hearing Ability: Hard of Hearing Regulatory Services Consultant Required: No Beliefs That Will Affect Care: None marital status: / Current Living Situation: Family Current Living Situation Comment: son Other Information That Helps Us Care for You: No Feels Safe at Home: Yes Safety Concerns: Feels Safe At This Time Assistive Devices: Denture - Upper, Denture - Lower, Glasses and Walker Review of Systems Review of Systems: All systems reviewed & are unremarkable except as noted in HPI & below Physical Exam Physical Exam: General- Not in distress. hard of hearing. Head- atraumatic Eyes- PERRL. ENT- oropharynx clear Neck- supple, no JVD. Lungs- clear to auscultation mild bibasilar crackles, no wheezing Heart- regular rhythm; tachycardia, no murmur, no gallop. Abdomen- normal bowel sounds, soft, nontender, no distension. Extremities- no pretibial edema, no erytehma seen. Neuro- alert, oriented PERRL,; no facial palsy; no dysarthria; moves extremities. Results & Data Results & Data Vital Signs (Past 12 Hours) Vital Signs Temp Pulse Pulse Resp BP BP Pulse Ox 04/27/24 23:30 111 H 19 109/93 95 04/27/24 23:00 118 H 16 124/81 96 04/27/24 22:30 97 H 20 113/74 92 04/27/24 22:04 126 H 04/27/24 22:03 96 04/27/24 22:03 115 H 19 111/87 96 04/27/24 21:35 36.8 C 100 H 18 91/55 L 95 O2 Del Method 04/27/24 23:30 Room Air 04/27/24 23:00 Room Air 04/27/24 22:30 Room Air 04/27/24 22:04 04/27/24 22:03 Room Air 04/27/24 22:03 Room Air 04/27/24 21:35 Room Air Diagnostic Findings Laboratory Results WBC 11.98 K/ul (4.8-10.8) H 04/27/24 21:55 RBC 3.53 M/uL (4.20-5.40) L 04/27/24 21:55 Hgb 11.4 g/dl (12.0-16.0) L 04/27/24 21:55 Hct 36.5 % (37.0-47.0) L 04/27/24 21:55 MCV 103.4 fL (80.0-100.0) H 04/27/24 21:55 MCH 32.3 pg (25.0-34.0) 04/27/24 21:55 MCHC 31.2 g/dL (32.0-36.0) L 04/27/24 21:55 RDW Std Deviation 65.7 fL (36.4-46.3) H 04/27/24 21:55 RDW Coeff of Etta 17.4 % (11.5-14.5) H 04/27/24 21:55 Plt Count 339 K/uL (130-400) 04/27/24 21:55 MPV 10.9 fL (9.4-12.4) 04/27/24 21:55 Immature Gran % (Auto) 0.4 % 04/27/24 21:55 Neut % (Auto) 60.9 % 04/27/24 21:55 Lymph % (Auto) 24.4 % 04/27/24 21:55 [place] % (Auto) 12.5 % 04/27/24 21:55 Eos % (Auto) 1.0 % 04/27/24 21:55 Baso % (Auto) 0.8 % 04/27/24 21:55 Neut # (Auto) 7.30 K/uL (1.40-6.50) H 04/27/24 21:55 Lymph # (Auto) 2.92 K/uL (1.20-3.40) 04/27/24 21:55 [place] # (Auto) 1.50 K/uL (0.11-0.59) H 04/27/24 21:55 Eos # (Auto) 0.12 K/uL (0.00-0.50) 04/27/24 21:55 Baso # (Auto) 0.09 K/uL (0.00-0.20) 04/27/24 21:55 Immature Gran # (Auto) 0.05 K/uL (0.01-0.20) 04/27/24 21:55 Absolute Nucleated RBC 0.04 K/uL (0.00-0.12) 04/27/24 21:55 Nucleated RBC % (auto) 0.3 % 04/27/24 21:55 VBG pH 7.40 (7.36-7.41) 04/27/24 21:55 VBG pCO2 37 mmHg (38-50) L 04/27/24 21:55 VBG pO2 44 mmHg 04/27/24 21:55 VBG HCO3 23 mmol/L 04/27/24 21:55 VBG O2 Saturation 71.7 % 04/27/24 21:55 VBG Base Excess -1.5 mEq/L 04/27/24 21:55 Sodium 139 mmol/L (136-145) 04/27/24 21:55 Potassium 3.9 mmol/L (3.5-5.1) 04/27/24 21:55 Chloride 104 mmol/L (98-107) 04/27/24 21:55 Carbon Dioxide 24 mmol/L (21-32) 04/27/24 21:55 Anion Gap 11 (3-11) 04/27/24 21:55 BUN 35 mg/dl (6-23) H 04/27/24 21:55 Creatinine 2.55 mg/dl (0.6-1.2) H 04/27/24 21:55 Est Cr Clr Drug Dosing Not Reportable 04/27/24 21:55 Est GFR ( Amer) 20.2 ml/min 04/27/24 21:55 Est GFR (Non-Af Amer) 17.4 ml/min 04/27/24 21:55 BUN/Creatinine Ratio 13.7 (10-20) 04/27/24 21:55 Glucose 198 mg/dl (70-99(Fasting)) H 04/27/24 21:55 POC Glucose 205 mg/dl (70-99) H 04/27/24 21:38 Lactate 3.0 mmol/L (0.4-2.0) H* 04/27/24 21:55 Calcium 9.7 mg/dl (8.6-10.3) 04/27/24 21:55 Magnesium 2.0 mg/dl (1.7-2.4) 04/27/24 21:55 Total Bilirubin 1.2 mg/dl (0.2-1.0) H 04/27/24 21:55 AST 11 U/L (13-39) L 04/27/24 21:55 ALT 8 U/L (7-52) 04/27/24 21:55 Alkaline Phosphatase 111 U/L (34-104) H 04/27/24 21:55 Total Creatine Kinase 34 U/L (26-192) 04/27/24 21:55 Troponin I High Sens 10.3 pg/ml (0-14) 04/27/24 21:55 B-Natriuretic Peptide 2254 pg/ml (0-100) H 04/27/24 21:55 Total Protein 7.1 gm/dl (6.0-8.3) 04/27/24 21:55 Albumin 4.3 gm/dl (3.4-5.0) 04/27/24 21:55 Globulin 2.8 gm/dl (2.5-4.0) 04/27/24 21:55 Albumin/Globulin Ratio 1.5 (0.9-2) 04/27/24 21:55 TSH 1.848 uIu/ml (0.300-4.500) 04/27/24 21:55 Urine Color Yellow 04/27/24 22:06 Urine Appearance Clear (Clear) 04/27/24 22:06 Urine pH 5.5 (4.5-7.5) 04/27/24 22:06 Ur Specific [place] 1.014 (1.000-1.030) 04/27/24 22:06 Urine Protein Trace (Negative) H 04/27/24 22:06 Urine Glucose (UA) Negative (Negative) 04/27/24 22:06 Urine Ketones Negative (Negative) 04/27/24 22:06 Urine Blood Negative (Negative) 04/27/24 22:06 Urine Nitrite Negative (Negative) 04/27/24 22:06 Urine Bilirubin Negative (Negative) 04/27/24 22:06 Urine Urobilinogen Negative (Negative) 04/27/24 22:06 Ur Leukocyte Esterase Trace (Negative) H 04/27/24 22:06 Urine WBC (Auto) 6-10 /hpf (0-5) H 04/27/24 22:06 Urine RBC (Auto) 0-2 /hpf (0-2) 04/27/24 22:06 U Hyaline Cast (Auto) 3-5 /lpf (0-2) H 04/27/24 22:06 U Epithel Cells (Auto) 3-5 /hpf (0-2) H 04/27/24 22:06 Urine Bacteria (Auto) None Seen (None Seen) 04/27/24 22:06 Digoxin < 0.3 ng/ml (0.8-2.0) L 04/27/24 21:55 Adenovirus (PCR) Not Detected (NotDetected) 04/27/24 21:43 B. pertussis DNA (PCR) Not Detected (NotDetected) 04/27/24 21:43 B.parapertussis DNA PCR Not Detected (NotDetected) 04/27/24 21:43 C. pneumoniae DNA (PCR) Not Detected (NotDetected) 04/27/24 21:43 Coronavirus OC43 (PCR) Not Detected (NotDetected) 04/27/24 21:43 Coronavirus HKU1 (PCR) Not Detected (NotDetected) 04/27/24 21:43 Coronavirus 229E (PCR) Not Detected (NotDetected) 04/27/24 21:43 SARS-CoV-2 (PCR) Not Detected (NotDetected) 04/27/24 21:43 Coronavirus NL63 (PCR) Not Detected (NotDetected) 04/27/24 21:43 Human Metapneumovir PCR Not Detected (NotDetected) 04/27/24 21:43 Influenza Type A (PCR) Not Detected (NotDetected) 04/27/24 21:43 Influenza Type B (PCR) Not Detected (NotDetected) 04/27/24 21:43 M. pneumoniae (PCR) Not Detected (NotDetected) 04/27/24 21:43 Parainfluenza 1 (PCR) Not Detected (NotDetected) 04/27/24 21:43 Parainfluenza 2 (PCR) Not Detected (NotDetected) 04/27/24 21:43 Parainfluenza 3 (PCR) Not Detected (NotDetected) 04/27/24 21:43 Parainfluenza 4 (PCR) Not Detected (NotDetected) 04/27/24 21:43 RSV (PCR) Not Detected (NotDetected) 04/27/24 21:43 Entero/Rhino (PCR) Not Detected (NotDetected) 04/27/24 21:43 ECG Additional Comments: ECG. Atrial fibrillation with PVCs rate of 98. Left axis deviation. Nonspecific intraventricular conduction block. QTc 515. Code Status & VTE Plan VTE Prophylaxis Plan VTE Prophylaxis will be ordered: Yes (1) CHF (congestive heart failure) Heart failure chronicity: acute Heart failure type: unspecified Qualified Code(s): I50.9 - Heart failure, unspecified
[2024-04-28] MEDS ORDERED: PHARMACY GLYCEMIC MGMT CONSULT PRN (01:48)
[2024-04-28] MEDS ORDERED: POLYETHYLENE (MIRALAX) 17 GM PACK PO PRN (01:48)
[2024-04-28] MEDS ORDERED: GLUCAGON FOR INJ 1 MG VIAL SQ PRN (01:48)
[2024-04-28] MEDS ORDERED: DEXTROSE 50% 50 ML SYRINGE IV PRN (01:48)
[2024-04-28] MEDS ORDERED: GLUCOSE 10 TAB/TUBE PO PRN (01:48)
[2024-04-28] MEDS ORDERED: CARBOHYDRATES FOR HYPOGLYCEMIA PO PRN (01:48)
[2024-04-28] MEDS ORDERED: GLUCOSE 40% GEL 15 GM TUBE PO PRN (01:48)
[2024-04-28] MEDS ORDERED: NITROGLYCERIN SL 0.4 MG/TAB TAB SL PRN ×2 (01:48)
[2024-04-28] MEDS ORDERED: ACETAMINOPHEN 325 MG TAB PO PRN (01:48)
--- NOTE | 2024-04-28 02:29 | CT Scan Report ---
Exam(s): CT CHEST Without Contrast EXAM: CT Chest Without Intravenous Contrast CLINICAL HISTORY: Reason for exam: sob. chf vs pneumonia. TECHNIQUE: Axial computed tomography images of the chest without intravenous contrast. CTDI is 13.13 mGy and DLP is 378.07 mGy-cm. Automated exposure control was utilized for the study. A dose lowering technique was utilized adhering to the principles of ALARA. COMPARISON: 03/30/24 FINDINGS: Lungs: Mild pulmonary vascular congestion and interstitial pulmonary edema visualized. Pleural space: Unremarkable. No pneumothorax. No significant effusion. Heart: Heart is enlarged, unchanged. Mild coronary artery calcifications redemonstrated. No pericardial effusion. Bones/joints: Ankylosing spondylitis of the thoracic spine. No acute fracture. No dislocation. Soft tissues: Unremarkable. Vasculature: See above. Lymph nodes: Unremarkable. No enlarged lymph nodes. Tubes, lines and devices: Left-sided pacemaker, unchanged. IMPRESSION: Mild pulmonary vascular congestion and interstitial pulmonary edema visualized. Electronically signed by: Chadd Monreal MD 04/28/24 02:28 AM
[2024-04-28] MEDS: DOXYCYCLINE HYCLATE 100 MG in DEXTROSE 5% MINI-B 100 ML IV SCH (03:03)
[2024-04-28] MEDS: cefTRIAXone SODIUM 2,000 MG/50 ML BAG IV SCH (03:04)
--- NOTE | 2024-04-28 03:54 | Pharmacy Report ---
Pharmacy Glycemic Short Note 2 - Date of Service April 28, 2024 - Glycemic Short BSG Results (Last 24 hours): 04/27/24 04/27/24 21:38 21:55 Glucose 198 H POC Glucose 205 H OUTPATIENT ANTIDIABETIC REGIMEN: * n/a * HbA1c: 7.4% (03/01/24) ASSESSMENT: * Ms Gabriel is a 78yo F admitted with acute CHF exac, JUNIOR on CKD (baseline SCr ~2, admission SCr 2.55). Pt started on ceftriaxone and doxycycline until pulm infection r/o. * Pt does not currently take any medications for diabetes. * BSGs elevated on admission (198, 205) so patient has been started on Novolog (stress level ~2). * Pharmacy will continue to follow and adjust regimen as indicated. PLAN FOR INPATIENT GLYCEMIC CONTROL: * Basal insulin * none at this time * Bolus insulin * NovoLog per scale ACHS or Q6hrs while NPO * Goal Range: Low 110 mg/dL - High 140 mg/dL * Correction Factor: 30 mg/dL/unit * Nutritional / Prandial insulin per carb ratio of 1 unit per 12 grams CHO consumed
[2024-04-28] MEDS: METOPROLOL TARTRATE 1 MG/ML VIAL IV STA (05:17)
[2024-04-28] MEDS: METOPROLOL TARTRATE 1 MG/ML VIAL IV ONE (05:18)
[2024-04-28] MEDS: LEVOTHYROXINE SODIUM 88 MCG TABLET PO SCH (06:19)
[2024-04-28 07:00] LABS: Basophils # (auto) 0.06 K/uL (0.00-0.20); Basophils % (auto) 0.5 %; Eosinophils # (auto) 0.06 K/uL (0.00-0.50); Eosinophils % (auto) 0.5 %; Hemoglobin 11.1 g/dl (12.0-16.0); Immature Granulocytes # (auto) 0.05 K/uL (0.01-0.20); Immature Granulocytes % (auto) 0.4 %; Lymphocytes # (auto) 2.48 K/uL (1.20-3.40); Lymphocytes % (auto) 20.8 %; Mean Corpuscular Hemoglobin 32.5 pg (25.0-34.0); Mean Corpuscular Hgb Conc 31.7 g/dL (32.0-36.0); Mean Corpuscular Volume 102.3 fL (80.0-100.0); Mean Platelet Volume 11.2 fL (9.4-12.4); Monocytes # (auto) 1.48 K/uL (0.11-0.59); Monocytes % (auto) 12.4 %; Neutrophils % (auto) 65.4 %; Nucleated RBC # (auto) 0.06 K/uL (0.00-0.12); Nucleated RBC % (auto) 0.5 %; Platelet Count 317 K/uL (130-400); RDW Coefficient of Variation 17.2 % (11.5-14.5); RDW Standard Deviation 63.8 fL (36.4-46.3); Red Blood Count 3.42 M/uL (4.20-5.40); White Blood Count 11.93 K/ul (4.8-10.8)
[2024-04-28] MEDS: ALBUTEROL HFA 8 GM INHALER INH SCH (07:05)
[2024-04-28 07:16] LABS: BUN Creatinine Ratio 13.8 (10-20); Calcium 9.3 mg/dl (8.6-10.3); Creatinine Clr Calc Pharmacy 18.1 ml/min; Est GFR (African American) 20.9 ml/min; Est GFR (Non-African American) 18.1 ml/min; Magnesium 1.9 mg/dl (1.7-2.4); Potassium 3.7 mmol/L (3.5-5.1)
[2024-04-28 07:23] LABS: Troponin I High Sensitivity 12.3 pg/ml (0-14)
[2024-04-28 08:02] LABS: Estimated Average Glucose 160 mg/dl; Hemoglobin A1C 7.2 % (4.5-5.6)
--- NOTE | 2024-04-28 08:29 | XRay Report ---
XR chest 1V portable CLINICAL HISTORY: weakness TECHNIQUE: Single frontal radiograph of the chest was obtained. Comparison: Comparison is made to chest radiograph 03/29/2024 FINDINGS: An implanted pacemaker is seen. Cardiomegaly is noted. Prominence and cephalization of the vasculatur e is seen. No evidence of pleural effusion or pneumothorax. IMPRESSION: Cardiomegaly and mild pulmonary edema. ACT 112: Negative or not required by law. Electronically signed by: Rd Adams M.D. 04/28/2024 8:28 AM
[2024-04-28] MEDS: POTASSIUM CHLORIDE CRTAB 20 MEQ TABCR PO STA (08:56)
[2024-04-28] MEDS: MAGNESIUM SULFATE / D5W 1 GM/100 ML BAG IV ONE (08:56)
[2024-04-28] MEDS: FUROSEMIDE 40 MG/4 ML VIAL IV SCH (08:56)
[2024-04-28] MEDS: ESCITALOPRAM OXALATE 20 MG TAB PO SCH (08:57)
[2024-04-28] MEDS: APIXABAN 2.5 MG TAB PO SCH (08:57)
[2024-04-28] MEDS: MAGNESIUM OXIDE 400 MG TAB PO SCH (08:57)
[2024-04-28] MEDS: METOPROLOL SUCC 50MG EXT REL TAB PO SCH (08:58)
[2024-04-28] MEDS: INSULIN ASPART PER UNIT CHARGE SC SCH (08:58)
[2024-04-28] MEDS: LANTUS PER UNIT CHARGE SC SCH ×2 (08:58→21:12)
[2024-04-28] MEDS: CALCITRIOL 0.25 MCG CAPSULE PO SCH (08:59)
[2024-04-28] MEDS: allopurinoL 100 MG TAB PO SCH (08:59)
[2024-04-28] MEDS: DOCUSATE SODIUM 100 MG CAP PO SCH (08:59)
[2024-04-28] MEDS ORDERED: ISOSORBIDE MONO EXTENDED REL 30 MG TABCR PO SCH (09:00)
[2024-04-28] MEDS: FAMOTIDINE 20 MG TAB PO SCH (09:00)
[2024-04-28] MEDS: CLOPIDOGREL BISULFATE 75 MG TAB PO SCH (09:00)
--- NOTE | 2024-04-28 09:46 | Cardiology Consultation ---
<Statement entered by Ailyn Mcelroy DO - 04/28/24 13:40> I have reviewed the advanced practitioner's documentation on the date of service referenced in note, and I agree with, and take responsibility for the plan of care. Pt seen in cardiology consultation due to AF with RVR and mild acute on chronic heart failure with reduced EF-NYHA Class III Pt was seen earlier today; her daughter was at the bedside She has been in AF for a good month and ventricular rates are not ideally controlled despite AVN blockers; was on digoxin which was stopped as an outpt due to elevated levels-but not sure if the lab was drawn at the trough of her taking the digoxin or if it was right afterwards. regardless she might benefit from and AVN ablation during this admission-mirna villafana on how she looks tomorrow I might be able to do this tomorrow afternoon she does not look terribly volume overloaded on exam today-would give another dose of IV lasix today and see how she is looking tomorrow give a dose of IV digoxin today to see if we can get her HR better controlled I discussed my recommendations with the hospitalist today Date of Consultation April 28, 2024 Assessment & Plan (1) Acute on chronic HFrEF (heart failure with reduced ejection fraction): (2) Nonischemic cardiomyopathy: (3) Atrial fibrillation with rapid ventricular response: (4) Tachycardia-bradycardia syndrome: (5) Cardiac pacemaker: Plan Complex 78-year-old female with severe nonischemic cardiomyopathy admitted with acute decompensated systolic congestive heart failure about three weeks following reduction in oral diuretics due to acute on chronic renal dysfunction. Patient with persistent atrial fibrillation with a rapid ventricular response following discontinuation of digoxin in mid March. Patient chronically prescribed reduced dose Eliquis anticoagulation. Volume status improved following measures on presentation and admission. Heart rates remain uncontrolled with limited options - prior toxicity to amiodarone, LVEF 10-15%, stage IV CKD, borderline systolic blood pressure. Recommendations: 1. Continue IV diuretic therapy through today, evaluating ongoing need in AM of 04/29 2. Resume digoxin, IV dose today 3. Continue metoprolol succinate 100 mg BID 4. Continue reduced dose Eliquis anticoagulation. 5. Continue clopidogrel 6. Stop isosorbide and amlodipine, reconsider use of nitrates and hydralazine down the road. 7. Unable to add some GDMT due to borderline BP, renal dysfunction, intermittent hyperkalemia 8. Avoid diltiazem, RE: HFrEF 9. ? Future AV junction ablation 10. Empiric antibiotics as per Hospitalist. I spent a total of 49 minutes on the date of service in preparation, delivery, and documentation of the care provided to this patient excluding any time spent in the performance of separately billed services. This visit was a split-shared visit with the substantive portion of the medical decision making performed by the supervising adzing and boring machine operator/billing provider. History of Present Illness Reason for Consultation: Acute CHF, tachycardia Requesting Physician: Dr. Bear Attending Physician: Dr. Deborah Beltran MD History of Present Illness Nancy Gabriel is a very pleasant 78-year-old female who is being seen at the request of [facility]. Reasons for consultation include acute CHF and tachycardia. Furosemide decreased from 40 mg/day to 20 mg/day circa April 09 due to acute on chronic renal dysfunction. Potassium discontinued (hyperkalemia). Digoxin held, elevated level. Patient presented to the ER on 04/27/2024 due to feeling off, concerned regarding acute decompensated congestive heart failure due to abdominal bloating/distention. + Nonproductive cough with increased dyspnea. Decreased appetite. EKG on presentation revealed atrial fibrillation with ventricular rate of 98 bpm, with premature ventricular or aberrantly conducted complexes, left axis deviation, nonspecific interventricular conduction block. Imaging of the chest revealed mild pulmonary vascular congestion and interstitial pulmonary edema Telemetry with atrial fibrillation, heart rates 100 to 140 bpm, with occasional PVC versus aberrantly conducted complex. Pacemaker interrogation on April 27, 2024 demonstrated appropriate function, 8.6 years remaining longevity. Patient has been in atrial fibrillation since February 23, 2024 with heart rates trending up since early March. Received 40 mg IV furosemide in ER and ordered 40 mg IV daily on admission. Patient notes feeling better today. Improved dyspnea. No chest pain. No orthopnea or PND. No peripheral edema. No syncope. No current fevers or chills. Problem List: Symptomatic atrial fibrillation with a rapid ventricular response Prior use of amiodarone discontinued in December 2022 due to concern for pulmonary toxicity. Patient chronically prescribed reduced dose Eliquis anticoagulation. 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 Right atrial lead Medtronic 5076-52 cm, serial number [id number]. Right ventricular lead, Medtronic 3830-69 cm, serial number [id number]. Device reprogrammed to DDD in August 2022. Severe nonischemic cardiomyopathy with left ventricular ejection fraction 20% (does not have an ICD) 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 Dyslipidemia History of CVA (prescribed clopidogrel Stage IV chronic kidney disease Type 2 diabetes mellitus. Arthroscopic left knee surgery Carpal tunnel surgery Colonoscopy with polypectomy Ventral hernia repair Cholecystectomy Family History: Noncontributory. Mother with uterine cancer in her 40s. Social History: Never smoker. No alcohol. No illegal drug use. Has caregivers until 5 PM. Allergies Allergy/AdvReac Type Severity Reaction Status Date / Time codeine Allergy Intermediate PSCHO Verified 03/29/24 23:06 COMPLICATIONS PER [facility] Home Medications Medication Instructions Recorded Confirmed Type allopurinol 100 mg tablet 100 mg PO QAM 06/11/19 04/27/24 History clopidogrel 75 mg tablet 75 mg PO QAM #30 tabs 02/24/20 04/27/24 Rx nitroglycerin 0.4 mg sublingual 0.4 mg sublingual UD PRN chest 05/11/22 04/27/24 Rx tablet (Nitrostat) pain #10 tabs furosemide 20 mg tablet 20 mg PO DAILY 09/18/22 04/28/24 History atorvastatin 40 mg tablet 40 mg PO HS 01/06/23 04/27/24 History famotidine 20 mg tablet 20 mg PO AMHS 01/06/23 04/27/24 History albuterol sulfate 90 mcg/actuation 2 puff inhalation QID 03/28/23 04/27/24 History aerosol inhaler (Ventolin HFA) levothyroxine 88 mcg tablet 88 mcg PO QAM 03/28/23 04/27/24 History ondansetron 4 mg disintegrating 4 mg translingual Q8 PRN n/v 03/28/23 04/27/24 History tablet apixaban 2.5 mg tablet (Eliquis) 2.5 mg PO BID 02/29/24 04/27/24 History calcitriol 0.5 mcg capsule 0.5 mcg PO QAM 02/29/24 04/27/24 History digoxin 125 mcg (0.125 mg) tablet 0.125 mg PO MoWeFr@1600 #12 tabs 03/07/24 04/27/24 Rx (Digitek) docusate sodium 100 mg capsule 100 mg PO BID 03/29/24 04/27/24 History isosorbide mononitrate 30 mg 30 mg PO QAM 03/29/24 04/27/24 History tablet,extended release 24 hr magnesium oxide 400 mg (241.3 mg 400 mg PO DAILY #30 tabs 03/31/24 04/27/24 Rx magnesium) tablet escitalopram oxalate 20 mg tablet 20 mg PO QAM 04/27/24 04/27/24 History metoprolol succinate 100 mg 100 mg PO AMHS 04/27/24 04/27/24 History tablet,extended release 24 hr Patient History Medical History Pneumonia Acute systolic (congestive) heart failure LBBB (left bundle branch block) History of adenomatous polyp of colon Degenerative disc disease, cervical Hearing loss MELQUIADES (generalized anxiety disorder) GERD without esophagitis Vitamin D deficiency Hypertensive cardiomegaly Surgical History History of D&C History of excision of lesion Back - Dr. 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 Physical Exam Physical Exam: General: Alert to person and place. NAD. HENT: Normocephalic. Atraumatic. Eyes: PER. Conjunctiva pink, sclera clear. Neck: No JVD. Heart: Irregularly irregular at 110 bpm. Soft systolic murmur. Lungs: Diminished. Bibasilar rales. No wheeze. Abdomen: +BS. Soft. Nontender. No masses or organomegaly. Extremities: No clubbing, cyanosis, or edema. Limited neurological examination is without focal deficits. Pulses: Posterior tibial=1/4. Results & Data Vital Signs (Past 12 Hours) Vital Signs Temp Pulse Pulse Resp BP BP Pulse Ox 04/28/24 07:36 36.5 C 111 H 19 111/76 93 04/28/24 07:06 107 H 19 91 04/28/24 05:44 98 H 04/28/24 04:40 109/76 04/28/24 02:17 36.9 C 112 H 18 108/67 95 04/28/24 01:09 101 H 18 129/79 95 04/28/24 00:57 118 H 20 123/82 95 04/28/24 00:30 105 H 18 123/82 95 04/27/24 23:30 111 H 19 109/93 95 04/27/24 23:00 118 H 16 124/81 96 04/27/24 22:30 97 H 20 113/74 92 04/27/24 22:04 126 H 04/27/24 22:03 96 04/27/24 22:03 115 H 19 111/87 96 O2 Del Method 04/28/24 07:36 Room Air 04/28/24 07:06 Room Air 04/28/24 05:44 04/28/24 04:40 04/28/24 02:17 Room Air 04/28/24 01:09 Room Air 04/28/24 00:57 Room Air 04/28/24 00:30 Room Air 04/27/24 23:30 Room Air 04/27/24 23:00 Room Air 04/27/24 22:30 Room Air 04/27/24 22:04 04/27/24 22:03 Room Air 04/27/24 22:03 Room Air Laboratory Results Cardiac Enzymes 04/27/24 04/28/24 Range/Units 21:55 06:27 AST 11 L (13-39) U/L Troponin I High Sens 10.3 12.3 (0-14) pg/ml B-Natriuretic Peptide 2254 H (0-100) pg/ml Coagulation 04/27/24 Range/Units 21:55 B-Natriuretic Peptide 2254 H (0-100) pg/ml CBC 04/27/24 04/28/24 Range/Units 21:55 06:27 WBC 11.98 H 11.93 H (4.8-10.8) K/ul RBC 3.53 L 3.42 L (4.20-5.40) M/uL Hgb 11.4 L 11.1 L (12.0-16.0) g/dl Hct 36.5 L 35.0 L (37.0-47.0) % Plt Count 339 317 (130-400) K/uL Neut # (Auto) 7.30 H 7.80 H (1.40-6.50) K/uL Lymph # (Auto) 2.92 2.48 (1.20-3.40) K/uL Edwards # (Auto) 1.50 H 1.48 H (0.11-0.59) K/uL Eos # (Auto) 0.12 0.06 (0.00-0.50) K/uL Baso # (Auto) 0.09 0.06 (0.00-0.20) K/uL Comprehensive Metabolic Panel 04/27/24 04/28/24 Range/Units 21:55 06:27 Sodium 139 140 (136-145) mmol/L Potassium 3.9 3.7 (3.5-5.1) mmol/L Chloride 104 104 (98-107) mmol/L Carbon Dioxide 24 23 (21-32) mmol/L BUN 35 H 34 H (6-23) mg/dl Creatinine 2.55 H 2.47 H (0.6-1.2) mg/dl Glucose 198 H 153 H (70-99(Fasting)) mg/dl Calcium 9.7 9.3 (8.6-10.3) mg/dl AST 11 L (13-39) U/L ALT 8 (7-52) U/L Alkaline Phosphatase 111 H (34-104) U/L Total Protein 7.1 (6.0-8.3) gm/dl Albumin 4.3 (3.4-5.0) gm/dl Intake and Output 04/27/24 04/28/24 04/28/24 22:59 06:59 14:59 Intake Total 150 / 150 Balance 150 / 150 Intake: IV 150 / 150 Doxycycline Hyclate 100 mg In 100 / 100 Dextrose 5% Mini-B 100 ml @ 50 mls/hr IV Q12H [facility] Rx#:[id number] cefTRIAXone SODIUM 2,000 mg In 50 / 50 50 ml @ 100 mls/hr IV Q24H [facility] Rx#:[id number] Other: Weight 71 kg Weight Measurement Method Standing Scale
--- NOTE | 2024-04-28 10:10 | Communication Note ---
Date of Service: April 28, 2024 Patient reports cough, rhinorrhea, congestion in the past few days On exam, elderly woman with hearing difficulties, diminished breath sounds, on room air, Tachycardic, irregularly irregular, no pedal edema Chest CT show pulm edema Discussed with Natural Gas Inspector Continue IV lasix Got IV digoxin today Cardiology will reeval tomorrow or later for possible AV junction ablation. Hence will keep NPO PMN Elevated lactate likely due to acute on chronic systolic HF Continue empirical antibiotics. Follow up infectious workup and stop if negative
[2024-04-28] MEDS ORDERED: ALBUTEROL HFA 8 GM INHALER INH PRN (11:51)
[2024-04-28] MEDS: DIGOXIN 125 MCG in SYRINGE 9.5 ML IV ONE (11:53)
[2024-04-28] MEDS: PROMETHAZINE HCL 12.5 MG in SODIUM CHLORIDE 0.9% 50 ML IV PRN (11:54)
[2024-04-28] MEDS: ATORVASTATIN 40 MG TAB PO SCH (20:50)
[2024-04-29] MEDS ORDERED: Nursing to Pharmacy Communication SCH ×2 (05:30→19:30)
--- NOTE | 2024-04-29 06:08 | Electrocardiogram Report ---
Test Reason : Blood Pressure : / mmHG Vent. Rate : 098 BPM Atrial Rate : 000 BPM P-R Int : 000 ms QRS Dur : 152 ms QT Int : 404 ms P-R-T Axes : 000 -65 097 degrees QTc Int : 515 ms Atrial flutter with premature ventricular or aberrantly conducted complexes Left axis deviation Left bundle branch block Abnormal ECG When compared with ECG of 29-MAR-2024 20:13, Ventricular pacing is no longer evident Confirmed by Abdullahi Ornelas ([id number]) on 04/29/2024 6:07:51 AM Referred By: REFERRED SELF Confirmed By:Abdullahi Ornelas
[2024-04-29] MEDS: INSULIN ASPART PER UNIT CHARGE SC SCH ×2 (06:25→21:02)
[2024-04-29 07:08] LABS: Hematocrit (blood only) 34.2 % (37.0-47.0); Hemoglobin 10.8 g/dl (12.0-16.0); Mean Corpuscular Hemoglobin 32.1 pg (25.0-34.0); Mean Corpuscular Hgb Conc 31.6 g/dL (32.0-36.0); Mean Corpuscular Volume 101.8 fL (80.0-100.0); Mean Platelet Volume 11.3 fL (9.4-12.4); Nucleated RBC # (auto) 0.06 K/uL (0.00-0.12); Nucleated RBC % (auto) 0.4 %; Platelet Count 314 K/uL (130-400); RDW Coefficient of Variation 16.9 % (11.5-14.5); Red Blood Count 3.36 M/uL (4.20-5.40); White Blood Count 13.62 K/ul (4.8-10.8)
[2024-04-29 07:26] LABS: BUN Creatinine Ratio 14.8 (10-20); Calcium 9.4 mg/dl (8.6-10.3); Est GFR (African American) 19.4 ml/min; Est GFR (Non-African American) 16.7 ml/min; Magnesium 2.2 mg/dl (1.7-2.4); Phosphorus 3.5 mg/dl (2.5-4.9)
--- NOTE | 2024-04-29 08:20 | Hospitalist Progress Note ---
Date of Service April 29, 2024 Assessment & Plan (1) Acute on chronic HFrEF (heart failure with reduced ejection fraction): (2) Paroxysmal atrial fibrillation: (3) Acute kidney injury superimposed on chronic kidney disease: (4) Prolonged QT interval: Plan Nancy Gabriel is a 78y/o F with PMHx of nonischemic cardiomyopathy [previous EF 20-24% + grade 3 diastolic dysfunction on echo on 05/17/23], tachybradycardia syndrome s/p pacemaker, paroxysmal atrial fibrillation on Eliquis, CKD IV, prediabetes, HLD, anxiety, history of CVA, dementia, GERD, generalized anxiety disorder, amiodarone toxicity and other problems listed below who presented secondary to progressive weakness and was found to have acute on chronic HFrEF. Acute on Chronic HFrEF H/O Nonischemic Cardiomyopathy - BNP 2254 on 04/27/24. LVEF<15% on echo performed yesterday (04/28/24); decreased from EF of 20-24% on echo performed 05/17/2323. Grade III diastolic dysfunction noted on echo from 04/2023; LV diastolic function unable to be assessed on echo from 04/2024. Pt's Lasix decreased from 40 mg/day to 20 mg/day on 04/09/24 due to acute on chronic renal dysfunction. Received 40mg IV furosemide in ED; volume status improved, will hold IV Lasix for now. No acute electrolyte abnormalities today; continue w/ daily weights + I&O's. Pt underwent AV junction ablation today with Dr. Anne. Progressive Weakness Cough w/ Sputum Production Admitting CXR showed cardiomegaly and mild pulmonary edema. Chest CT revealed mild pulmonary vascular congestion and interstitial pulmonary edema. WBC increasing from 11.93 on 04/28 to 13.62 today (04/29). No evidence of an acute pneumonia, procalcitonin negative. UA w/ trace leukocyte esterase, evidence of urine WBC. Urine culture ordered, results pending - will follow. Will continue empiric ceftriaxone and doxycycline. Paroxysmal Atrial Fibrillation - EKG this morning (04/29) revealed persistent afib, LAD. Tachybrady Syndrome s/p Pacemaker - Previously reprogrammed to DDD. Amiodarone was previously discontinued due to toxicity. Recently digoxin was held because of levels were 1.2; digoxin level < 0.3 on 04/27. Pacemaker interrogation on 04/27/24 demonstrated appropriate function, 8.6 years remaining longevity. Patient has been in atrial fibrillation since 02/23/24 with heart rates trending u p since early March. Will continue MILITARY COOK po metoprolol succinate, Eliquis - closely monitor rhythm/rate on telemetry. Elevated Lactic Acid Lactate 2.8 on admission; likely 2/2 acute on chronic systolic HF. Will continue empiric ABX regimen; procalcitonin negative. Preliminary blood cx showing no growth so far. Continue ABX therapy until final read complete. Hyperglycemia H/O Prediabetes - ? Possible new-onset diabetes ? SSI regimen initiated; BSG 141 this AM (04/29). Glycemic pharmacy assisting with SSI changes PRN. Hgb A1c 7.2 on 04/28/24; continue to follow BSG levels. JUNIOR on CKD Stage IV Baseline creatinine ~2; presented with creatinine of 2.5. Received 40mg IV furosemide in ED; volume status improved, will hold IV Lasix for now. Creatinine 2.63 today (04/29); will follow repeat lab results and closely monitor renal function. Hold nephrotoxic medications when able; may need to consult nephrology. Prolonged QTc EKG this morning (04/29) revealed prolonged QTc of 541ms. Continue to avoid QTC prolonging medications. Generalized Anxiety Disorder (MELQUIADES) Pt on Lexapro MILITARY COOK, holding for now 2/2 prolonged QTC. HTN Continue MILITARY COOK metoprolol succinate 100mg BID; holding diuretics for now. Isosorbide and amlodipine stopped per cardiology's recommendation. Avoid diltiazem secondary to reduced EF; continue to monitor on telemetry. Hypothyroidism: Continue MILITARY COOK levothyroxine, TSH 1.848 at time of admission. H/O MCA Stroke, Hyperlipidemia: Continue MILITARY COOK Plavix and statin therapy. Other Chronic Medical Conditions: GERD, gout --> Can continue MILITARY COOK famotidine and allopurinol. DVT Prophylaxis: On Eliquis Code Status: DNR/DNI - As per previous provider documentation. PCP: Kasandra Antunez, Disposition: Patient admitted in PCU/Telemetry. Unable to determine anticipated discharge date at this time; per my discussion with the patient's sister, it is unlikely that the patient would be agreeable to placement upon discharge. Patient currently lives at home with her son. Patient does have a personal beef specialist at home M-F from ~9am-5pm. Patient seen in collaboration with Dr. Beltran. Please see addendum. I spent a total of 50 minutes coordinating, documenting, and providing care for this patient excluding time spent in the performance of separately billed services. This included personally reviewing all current laboratories and imaging studies, medical reconciliation, outpatient chart review and discussion with specialists. This chart was completed in part utilizing Speech Voice Recognition Software. Grammatical errors, random word insertions, pronoun errors, and incomplete sentences are an occasional consequence of this system due to software limitations, ambient noise, and hardware issues. Any formal questions or concerns about the content, text, or information contained within the body of this dictation should be directly addressed to the provider for clarification. Admission and Anticipated Discharge Date Admission Date: April 28, 2024 Subjective Patient seen and examined in room S239-2. Patient's sister present at bedside; states she has been sleeping since her arrival this morning. Sister was not in the room when cardiology saw the patient this morning. Made patient's sister aware of the intended ablation procedure to be performed today. Patient is arousable to loud verbal stimuli. Mentation is wifty at times, but she is able to be reoriented. Patient offers no acute concerns at this time. She is aware and agreeable with having the ablation done. Patient denies any SOB, chest pain, abdominal pain/discomfort or urinary issues. Telemetry overnight reveals tachycardia, somewhat persistent atrial fibrillation. Review of Systems Review of Systems: At least ten systems reviewed and negative, except as noted in the HPI. Physical Exam Physical Exam: General: No acute distress, very hard of hearing. Appears very tired, asleep in bed. Alert to loud verbal stimuli, able to converse appropriately, very pleasant. HEENT: Normocephalic, atraumatic. Conjunctivae normal, anicteric sclerae. External ear and nose normal, oropharynx not overtly dry. Respiratory: Normal respiratory effort, diminished breath sounds, no wheeze. No accessory muscle use. Cardiovascular: Tachycardic, irregularly irregular rhythm. Peripheral pulses palpable, no BLE edema. Vessels: No JVD. Abdomen/GI: Normal bowel sounds, soft, nontender, no hepatosplenomegaly. Extremities/Musculoskeletal: No cyanosis or clubbing, moves all extremities when instructed to. Neurologic: PERRL, EOMI, accommodation nl, no overt focal deficits. Skin: No rashes, normal color, warm/dry. Results & Data Results & Data Vital Signs (Past 12 Hours) Vital Signs Temp Pulse Resp BP Pulse Ox O2 Del Method 04/29/24 07:42 36.6 C 102 H 18 106/71 92 Room Air 04/29/24 04:29 36.4 C L 108 H 18 128/90 95 Room Air 04/28/24 23:59 36.6 C 117 H 17 105/65 91 Room Air Laboratory Results Short CBC 04/29/24 Range/Units 06:19 WBC 13.62 H (4.8-10.8) K/ul Hgb 10.8 L (12.0-16.0) g/dl Hct 34.2 L (37.0-47.0) % Plt Count 314 (130-400) K/uL BMP 04/29/24 06:19 Sodium 140 Potassium 4.0 Chloride 103 Carbon Dioxide 24 BUN 39 H Creatinine 2.63 H Glucose 149 H Calcium 9.4 Diagnostic Findings Chest X-Ray 04/27/24 21:43 XR chest 1V portable CLINICAL HISTORY: weakness TECHNIQUE: Single frontal radiograph of the chest was obtained. Comparison: Comparison is made to chest radiograph 03/29/2024 FINDINGS: An implanted pacemaker is seen. Cardiomegaly is noted. Prominence and cephalization of the vasculature is seen. No evidence of pleural effusion or pneumothorax. IMPRESSION: Cardiomegaly and mild pulmonary edema. ACT 112: Negative or not required by law. Electronically signed by: Rd Adams M.D. 04/28/2024 8:[address] 04/28/24 01:13 Exam(s): CT CHEST Without Contrast EXAM: CT Chest Without Intravenous Contrast CLINICAL HISTORY: Reason for exam: sob. chf vs pneumonia. TECHNIQUE: Axial computed tomography images of the chest without intravenous contrast. CTDI is 13.13 mGy and DLP is 378.07 mGy-cm. Automated exposure control was utilized for the study. A dose lowering technique was utilized adhering to the principles of ALARA. COMPARISON: 03/30/24 FINDINGS: Lungs: Mild pulmonary vascular congestion and interstitial pulmonary edema visualized. Pleural space: Unremarkable. No pneumothorax. No significant effusion. Heart: Heart is enlarged, unchanged. Mild coronary artery calcifications redemonstrated. No pericardial effusion. Bones/joints: Ankylosing spondylitis of the thoracic spine. No acute fracture. No dislocation. Soft tissues: Unremarkable. Vasculature: See above. Lymph nodes: Unremarkable. No enlarged lymph nodes. Tubes, lines and devices: Left-sided pacemaker, unchanged. IMPRESSION: Mild pulmonary vascular congestion and interstitial pulmonary edema visualized. Electronically signed by: Chadd Monreal MD 04/28/24 02:28 AM Medications Administered Allopurinol ([facility]ol 100 Mg Tab) [facility] [place] Stop: 05/28/24 08:59 Last Admin: 04/29/24 09:01 Dose: 100 mg Documented By: Admin: 04/28/24 08:59 Dose: 100 mg Documented By: MARYLU Apixaban (Apixaban 2.5 Mg Tab) 2.5 mg PO BID [facility] Stop: 05/28/24 08:59 Last Admin: 04/29/24 08:59 Dose: Not Given Documented By: Admin: 04/28/24 20:50 Dose: 2.5 mg Documented By: Admin: 04/28/24 08:57 Dose: 2.5 mg Documented By: MARYLU Atorvastatin Calcium (Atorvastatin 40 Mg Tab) 40 mg PO HS [facility] Stop: 05/28/24 20:59 Last Admin: 04/28/24 20:50 Dose: 40 mg Documented By: TREY Calcitriol (Calcitriol 0.25 Mcg Capsule) 0.5 mcg [facility] [place] Stop: 05/28/24 08:59 Last Admin: 04/29/24 09:00 Dose: 0.5 mcg Documented By: Admin: 04/28/24 08:59 Dose: 0.5 mcg Documented By: MARYLU Clopidogrel Bisulfate (Clopidogrel Bisulfate 75 Mg Tab) [facility] [place] Stop: 05/28/24 08:59 Last Admin: 04/29/24 09:01 Dose: 75 mg Documented By: Admin: 04/28/24 09:00 Dose: 75 mg Documented By: MARYLU Docusate Sodium (Docusate Sodium 100 Mg Cap) 100 mg PO BID [facility] Stop: 05/28/24 08:59 Last Admin: 04/29/24 09:00 Dose: 100 mg Documented By: Admin: 04/28/24 20:50 Dose: 100 mg Documented By: Admin: 04/28/24 08:59 Dose: 100 mg Documented By: MARYLU Escitalopram Oxalate (Escitalopram Oxalate 20 Mg Tab) 20 mg PO QAM [facility] Stop: 05/28/24 08:59 Last Admin: 04/29/24 09:00 Dose: 20 mg Documented By: Admin: 04/28/24 08:57 Dose: 20 mg Documented By: MARYLU Famotidine (Famotidine 20 Mg Tab) 20 mg PO AMHS [facility] Stop: 05/28/24 08:59 Last Admin: 04/29/24 09:00 Dose: 20 mg Documented By: Admin: 04/28/24 20:50 Dose: 20 mg Documented By: Admin: 04/28/24 09:00 Dose: 20 mg Documented By: MARYLU Ceftriaxone Sodium (Rocephin) 2,000 mg in 50 mls @ 100 mls/hr IV Q24H [facility] Stop: 05/05/24 02:59 Last Infusion: 04/29/24 04:22 Dose: Infused Documented By: Admin: 04/29/24 03:48 Dose: 100 mls/hr Documented By: Infusion: 04/28/24 04:17 Dose: Infused Documented By: Admin: 04/28/24 03:04 Dose: 100 mls/hr Documented By: TREY Doxycycline Hyclate 100 mg/ (Dextrose) 100 mls @ 50 mls/hr IV Q12H [facility] Stop: 05/05/24 03:59 Last Infusion: 04/29/24 06:13 Dose: Infused Documented By: Admin: 04/29/24 03:48 Dose: 50 mls/hr Documented By: Infusion: 04/28/24 19:19 Dose: Infused Documented By: Admin: 04/28/24 16:47 Dose: 50 mls/hr Documented By: Infusion: 04/28/24 04:58 Dose: Infused Documented By: Admin: 04/28/24 03:03 Dose: 50 mls/hr Documented By: TREY Promethazine HCl 12.5 mg/ (Sodium Chloride) 50.5 mls @ 202 mls/hr IV Q6H PRN PRN Reason: Nausea And Vomiting Stop: 05/28/24 11:32 Last Infusion: 04/28/24 19:19 Dose: Infused Documented By: Admin: 04/28/24 11:54 Dose: 202 mls/hr Documented By: MARYLU Insulin Aspart (Insulin Aspart Per Unit Charge) 0 units SC Q6 [facility] Stop: 05/29/24 05:59 Last Admin: 04/29/24 06:25 Dose: 1 units Documented By: TREY Co-signed By: TENZIN Insulin Glargine (Lantus Per Unit Charge) 7 units SC DAILY [facility] Stop: 05/28/24 08:59 Last Admin: 04/29/24 09:01 Dose: 7 units Documented By: AMRIK Co-signed By: SUE Admin: 04/28/24 08:58 Dose: 7 units Documented By: MARYLU Co-signed By: TIMO Insulin Glargine (Lantus Per Unit Charge) 0 units SC HS [facility]; Protocol Stop: 05/28/24 20:59 Last Admin: 04/28/24 21:12 Dose: 3 units Documented By: TREY Co-signed By: ASH Levothyroxine Sodium (Levothyroxine Sodium 88 Mcg Tablet) 88 mcg PO DAILYBB [facility] Stop: 05/28/24 06:29 Last Admin: 04/29/24 05:57 Dose: 88 mcg Documented By: Admin: 04/28/24 06:19 Dose: 88 mcg Documented By: TREY Magnesium Oxide (Magnesium Oxide 400 Mg Tab) 400 mg PO DAILY [facility] Stop: 05/28/24 08:59 Last Admin: 04/29/24 09:01 Dose: 400 mg Documented By: Admin: 04/28/24 08:57 Dose: 400 mg Documented By: MARYLU Metoprolol Succinate (Metoprolol Succ 50mg Ext Rel Tab) 100 mg PO AMHS [facility] Stop: 05/28/24 08:59 Last Admin: 04/29/24 09:00 Dose: 100 mg Documented By: Admin: 04/28/24 20:50 Dose: 100 mg Documented By: Admin: 04/28/24 08:58 Dose: 100 mg Documented By: MARYLU Discontinued Medications Albuterol (Albuterol Hfa 8 Gm Inhaler) 2 puffs INH QIDR [facility] Stop: 05/28/24 06:59 Last Admin: 04/28/24 11:49 Dose: Not Given Documented By: Admin: 04/28/24 07:05 Dose: 2 puffs Documented By: JULEE Furosemide (Furosemide 40 Mg/4 Ml Vial) 40 mg IV ONE ONE Stop: 04/27/24 23:08 Last Admin: 04/27/24 23:39 Dose: 40 mg Documented By: CHELITA Furosemide (Furosemide 40 Mg/4 Ml Vial) 40 mg IV DAILY [facility] Stop: 05/28/24 08:59 Last Admin: 04/28/24 08:56 Dose: 40 mg Documented By: MARYLU Magnesium Sulfate/Dextrose (Magnesium Sulfate / D5w) 1 gm in 100 mls @ 50 mls/hr IV ONE ONE Stop: 04/28/24 09:50 Last Infusion: 04/28/24 19:19 Dose: Infused Documented By: Admin: 04/28/24 08:56 Dose: 50 mls/hr Documented By: MARYLU Digoxin 125 mcg/ Syringe 10 mls @ 2 mls/min IV NOW ONE Stop: 04/28/24 11:04 Last Admin: 04/28/24 11:53 Dose: 2 mls/min Documented By: MARYLU Insulin Aspart (Insulin Aspart Per Unit Charge) 0 units SC ACHS [facility] Stop: 05/28/24 07:29 Last Admin: 04/28/24 21:12 Dose: 1 units Documented By: TREY Co-signed By: ASH Admin: 04/28/24 16:47 Dose: 4 units Documented By: MARYLU Co-signed By: ALBERT Admin: 04/28/24 12:06 Dose: 2 units Documented By: MARYLU Co-signed By: LITA Admin: 04/28/24 08:58 Dose: 1 units Documented By: MARYLU Co-signed By: TIMO Metoprolol Tartrate (Metoprolol Tartrate 1 Mg/Ml Vial) 2.5 mg IV NOW STA Stop: 04/28/24 04:39 Last Admin: 04/28/24 05:17 Dose: 2.5 mg Documented By: TREY Metoprolol Tartrate (Metoprolol Tartrate 1 Mg/Ml Vial) Confirm Administered Dose 5 mg IV .STK-MED ONE Stop: 04/28/24 05:10 Last Admin: 04/28/24 05:18 Dose: Not Given Documented By: TREY Potassium Chloride (Potassium Chloride Crtab 20 Meq Tabcr) 20 meq PO NOW STA Stop: 04/28/24 07:53 Last Admin: 04/28/24 08:56 Dose: 20 meq Documented By: MARYLU
--- NOTE | 2024-04-29 10:12 | Cardiology Progress Note ---
Date of Service April 29, 2024 Assessment & Plan (1) Acute on chronic HFrEF (heart failure with reduced ejection fraction): (2) Nonischemic cardiomyopathy: (3) Atrial fibrillation with rapid ventricular response: (4) Tachycardia-bradycardia syndrome: (5) Cardiac pacemaker: Plan Complex 78-year-old female with severe nonischemic cardiomyopathy admitted with acute decompensated systolic congestive heart failure about three weeks following reduction in oral diuretics due to acute on chronic renal dysfunction. Patient with persistent atrial fibrillation with a rapid ventricular response following discontinuation of digoxin in mid March. Patient chronically prescribed reduced dose Eliquis anticoagulation. Volume status improved following measures on presentation and admission. Heart rates remain uncontrolled with limited options - prior toxicity to amiodarone, LVEF 10-15%, stage IV CKD, borderline systolic blood pressure. Recommendations: Patient hemodynamically stable and no signs of volume overload but remains in atrial fibrillation with difficult to control rhythm. Patient n.p.o. for anticipated AV junction ablation bilateral reduction in medical therapy and improve symptoms. Patient agrees I spent a total of 35 minutes on the date of service in preparation, delivery, and documentation of the care provided to this patient excluding any time spent in the performance of separately billed services. Admission and Anticipated Discharge Date Admission Date: April 28, 2024 Subjective Patient was seen and personally examined. Pleasant but still tachycardic with rates 100 to 120 bpm overnight. No chest pains or discomfort. Some breathlessness with activity in room. Physical Exam Physical Exam: General: Alert to person and place. NAD. HENT: Normocephalic. Atraumatic. Eyes: PER. Conjunctiva pink, sclera clear. Neck: No JVD. Heart: Irregularly irregular at 110 bpm. Soft systolic murmur. Lungs: Diminished. Bibasilar rales. No wheeze. Abdomen: +BS. Soft. Nontender. No masses or organomegaly. Extremities: No clubbing, cyanosis, or edema. Limited neurological examination is without focal deficits. Pulses: Posterior tibial=1/4. Constitutional: WD/WN, vitals as above no acute distress Eyes: PERRL, conjunctivae normal, anicteric sclerae Neck: trachea midline, no thyromegaly Respiratory: normal respiratory effort, lungs clear to auscultation Cardiovascular: Rate/Rhythm: + tachycardic and + irregularly irregular Vessels: no JVD Extremities: no edema Chest (Breasts): Chest: + pacemaker Gastrointestinal (Abdomen): normal bowel sounds, soft, nontender, no hepatosplenomegaly Skin: no rashes, warm and dry Results & Data Vital Signs (Past 12 Hours) Vital Signs Temp Pulse Resp BP Pulse Ox O2 Del Method 04/29/24 07:42 36.6 C 102 H 18 106/71 92 Room Air 04/29/24 04:29 36.4 C L 108 H 18 128/90 95 Room Air 04/28/24 23:59 36.6 C 117 H 17 105/65 91 Room Air Laboratory Results Laboratory Results - last 24 hr 04/28/24 04/28/24 04/28/24 10:47 11:26 16:35 WBC RBC Hgb Hct MCV MCH MCHC RDW Std Deviation RDW Coeff of Etta Plt Count MPV Absolute Nucleated RBC Nucleated RBC % (auto) Sodium Potassium Chloride Carbon Dioxide Anion Gap BUN Creatinine Est Cr Clr Drug Dosing Est GFR ( Amer) Est GFR (Non-Af Amer) BUN/Creatinine Ratio Glucose POC Glucose 194 H 217 H Calcium Phosphorus Magnesium Troponin I High Sens 13.4 04/28/24 04/28/24 04/29/24 17:51 21:07 06:15 WBC RBC Hgb Hct MCV MCH MCHC RDW Std Deviation RDW Coeff of Etta Plt Count MPV Absolute Nucleated RBC Nucleated RBC % (auto) Sodium Potassium Chloride Carbon Dioxide Anion Gap BUN Creatinine Est Cr Clr Drug Dosing Est GFR ( Amer) Est GFR (Non-Af Amer) BUN/Creatinine Ratio Glucose POC Glucose 169 H 170 H Calcium Phosphorus Magnesium Troponin I High Sens 13.5 04/29/24 06:19 WBC 13.62 H RBC 3.36 L Hgb 10.8 L Hct 34.2 L MCV 101.8 H MCH 32.1 MCHC 31.6 L RDW Std Deviation 63.0 H RDW Coeff of Etta 16.9 H Plt Count 314 MPV 11.3 Absolute Nucleated RBC 0.06 Nucleated RBC % (auto) 0.4 Sodium 140 Potassium 4.0 Chloride 103 Carbon Dioxide 24 Anion Gap 13 H BUN 39 H Creatinine 2.63 H Est Cr Clr Drug Dosing 17.0 Est GFR ( Amer) 19.4 Est GFR (Non-Af Amer) 16.7 BUN/Creatinine Ratio 14.8 Glucose 149 H POC Glucose Calcium 9.4 Phosphorus 3.5 Magnesium 2.2 Troponin I High Sens
--- NOTE | 2024-04-29 13:58 | Pharmacy Report ---
Pharmacy Glycemic Short Note 2 - Date of Service April 29, 2024 - Glycemic Short BSG Results (Last 24 hours): 04/28/24 04/28/24 04/29/24 16:35 21:07 06:15 Glucose POC Glucose 217 H 169 H 170 H 04/29/24 04/29/24 06:19 12:04 Glucose 149 H POC Glucose 141 H OUTPATIENT ANTIDIABETIC REGIMEN: * n/a * HbA1c: 7.4% (03/01/24) ASSESSMENT: 04/29/24: * Blood sugars elevated yesterday, ranging 151-217 mg/dL * Received 18 units of insulin (10 units of basal and 8 units of bolus) * Fasting blood sugar of 170 mg/dL this morning * NPO today for AV node ablation - will continue current insulin orders today 04/28/24: * Ms Gabriel is a 78yo F admitted with acute CHF exac, JUNIOR on CKD (baseline SCr ~2, admission SCr 2.55). Pt started on ceftriaxone and doxycycline until pulm infection r/o. * Pt does not currently take any medications for diabetes. * BSGs elevated on admission (198, 205) so patient has been started on Novolog (stress level ~2). * Pharmacy will continue to follow and adjust regimen as indicated. PLAN FOR INPATIENT GLYCEMIC CONTROL: * Basal insulin * Lantus 7 units SC daily * Lantus 0-3-7 units SC HS * Bolus insulin * NovoLog per scale ACHS or Q6hrs while NPO * Goal Range: Low 110 mg/dL - High 140 mg/dL * Correction Factor: 25 mg/dL/unit * Nutritional / Prandial insulin per carb ratio of 1 unit per 8 grams CHO consumed
--- NOTE | 2024-04-29 14:37 | Pre Anesthesia Assessment ---
Date of Service April 29, 2024 Pre Sedation Assessment Vital Signs Temp Pulse Pulse Resp BP BP BP 04/29/24 14:16 117 H 12 112/67 04/29/24 13:02 36.8 C 115 H 18 110/74 04/29/24 07:42 36.6 C 102 H 18 106/71 04/29/24 07:28 83 04/29/24 04:29 36.4 C L 108 H 18 128/90 04/28/24 23:59 36.6 C 117 H 17 105/65 04/28/24 20:07 36.4 C L 106 H 18 113/77 04/28/24 15:26 36.6 C 97 H 18 96/64 L Pulse Ox O2 Del Method 04/29/24 14:16 93 Room Air 04/29/24 13:02 91 Room Air 04/29/24 07:42 92 Room Air 04/29/24 07:28 04/29/24 04:29 95 Room Air 04/28/24 23:59 91 Room Air 04/28/24 20:07 92 Room Air 04/28/24 15:26 95 Room Air Cardiovascular + tachycardic and + irregularly irregular Respiratory normal respiratory effort, lungs clear to auscultation Pre-Sedation Airway Assessment Smoking Status: Never smoker Hx Sleep Apnea: No Hx Difficult Intubation: No Short, Thick Neck: No Thyromental Distance: > or= 3.5 Finger Breadths Oral Cavity: + WNL Mallampati Class: III ASA: ASA3 NPO Status Date of Last Intake of Fluids: 04/28/24 Date of Last Intake of Solid Food: 04/28/24 Procedure Planning Contraindications for Sedation: none Current Medications Reviewed: Yes Notes The planned sedation has been discussed with the patient. Informed Consent was obtained. I have identified the patient, determined the appropriateness of sedation and have assessed the patient immediately prior to the procedure. All medicine(s) and interventions are by my order.
--- NOTE | 2024-04-29 14:37 | History & Physical Bridge Note ---
Date of Service April 29, 2024 History & Physical Bridge Note I have examined the patient, reviewed the History & Physical and in the interval since the performance of the History & Physical I have noted the following changes of clinical significance: no changes noted; pt with persistent AF with RVR-recommend AVN ablation; discussed the procedure and potential risks with the patient and her sisters-they expressed an understanding and consents signed.
[2024-04-29] MEDS: ceFAZolin 330 MG/ML 1 GM VIAL ONE (15:10)
[2024-04-29] MEDS: LIDOCAINE 1% LOCAL 20 ML VIAL ONE (15:10)
--- NOTE | 2024-04-29 15:53 | Electrocardiogram Report ---
Test Reason : Blood Pressure : / mmHG Vent. Rate : 116 BPM Atrial Rate : 120 BPM P-R Int : 000 ms QRS Dur : 146 ms QT Int : 402 ms P-R-T Axes : 000 -64 101 degrees QTc Int : 558 ms atrial fluter with rapid ventricular response with premature ventricular or aberrantly conducted com plexes Left axis deviation Poor R wave progression, consider anterior CT vs. lead placement vs. LVH Non-specific intra-ventricular conduction block Possible Lateral infarct (cited on or before 28-APR-2024) Abnormal ECG Confirmed by Lionel Martin ([id number] on 04/29/2024 3:52:54 PM Referred By: REFERRED SELF Confirmed By:Rober Martin
--- NOTE | 2024-04-29 16:04 | Electrocardiogram Report ---
Test Reason : Blood Pressure : / mmHG Vent. Rate : 099 BPM Atrial Rate : 220 BPM P-R Int : 000 ms QRS Dur : 152 ms QT Int : 422 ms P-R-T Axes : 000 -77 041 degrees QTc Int : 541 ms Atrial fibrillation Left axis deviation Non-specific intra-ventricular conduction block Possible Lateral infarct (cited on or before 28-APR-2024) Abnormal ECG When compared with ECG of 28-APR-2024 01:50, (unconfirmed) No significant change was found Confirmed by Lionel Martin ([id number]) on 04/29/2024 4:04:12 PM Referred By: REFERRED SELF Confirmed By:Rober Martin
--- NOTE | 2024-04-29 16:29 | Post Anesthesia Assessment ---
Date of Service April 29, 2024 Post Sedation Assessment Vital Signs Temp Pulse Pulse Resp BP BP Pulse Ox 04/29/24 14:16 117 H 12 112/67 93 04/29/24 13:02 36.8 C 115 H 18 110/74 91 04/29/24 07:42 36.6 C 102 H 18 106/71 92 04/29/24 07:28 83 04/29/24 04:29 36.4 C L 108 H 18 128/90 95 04/28/24 23:59 36.6 C 117 H 17 105/65 91 04/28/24 20:07 36.4 C L 106 H 18 113/77 92 O2 Del Method 04/29/24 14:16 Room Air 04/29/24 13:02 Room Air 04/29/24 07:42 Room Air 04/29/24 07:28 04/29/24 04:29 Room Air 04/28/24 23:59 Room Air 04/28/24 20:07 Room Air Recovery Score Activity: Moves 4 extremities Respiration: Deep Breath/Cough Circulation: +/-20% PreAnes Value Consciousness: Fully Awake Oxygen Saturation: > 92% On Room Air Discharge Sedation Level of Care: Fast Track Phase II Post Sedation Plan On clinical assessment, the patient appears to have tolerated the sedation without complications. Patient is recovering as anticipated. Patient will continue to be monitored by nursing and may be discharged when sedation discharge criteria are met per below protocol. Upon Completions of procedure up to 15 minutes continue every 5 minute vital signs and the P.A.R. score; then discharge to a Phase I or Fast Track to Phase II per the following guidelines: * Discharge Patient to appropriate Phase II area if PAR is 8 or greater or return to pre- procedure baseline. The post - procedure orders will be as directed. * If PAR score is less than 8 or not return to pre-procedure baseline then patient will follow Phase I monitoring till PAR is reached for Phase II. The Phase I may be done in procedure room or may call to secure a Phase I area. * If naloxone or flumazenil are used for reversal, hold in Phase I for albert nued monitoring from when last reversal dose was given for a minimum of 60 minutes or longer pending the nurse and/or physician discretion of patient condition before discharge to Phase II. Please call the Sedation Physician to re-evaluate and complete post-note for discharge to Phase II area. Do NOT discharge from procedure sedation or Phase 1 until post- sedation evaluation note is complete by procedure /sedation MD Sedation Discharge Instructions to be given to the patient at discharge to home.
[2024-04-29] MEDS: MIDAZOLAM HCL 5 MG/ML 1 ML VIAL ONE (16:39)
[2024-04-29] MEDS: fentaNYL citrate PF 100 MCG/2 ML VIAL ONE (16:39)
[2024-04-29] MEDS: diphenhydrAMINE 50 MG/ML VIAL ONE (16:40)
--- NOTE | 2024-04-30 08:04 | Hospitalist Progress Note ---
Date of Service April 30, 2024 Assessment & Plan (1) Acute on chronic HFrEF (heart failure with reduced ejection fraction): (2) Paroxysmal atrial fibrillation: (3) Acute kidney injury superimposed on chronic kidney disease: (4) Prolonged QT interval: Plan Nancy Gabriel is a 78y/o F with PMHx of nonischemic cardiomyopathy [previous EF 20-24% + grade 3 diastolic dysfunction on echo on 05/17/23], tachybradycardia syndrome s/p pacemaker, paroxysmal atrial fibrillation on Eliquis, CKD IV, prediabetes, HLD, anxiety, history of CVA, dementia, GERD, generalized anxiety disorder, amiodarone toxicity and other problems listed below who presented secondary to progressive weakness and was found to have acute on chronic HFrEF. Acute on Chronic HFrEF H/O Nonischemic Cardiomyopathy - BNP 2254 on 04/27/24. LVEF<15% on echo performed yesterday (04/28/24); decreased from EF of 20-24% on echo performed 05/17/2323. Grade III diastolic dysfunction noted on echo from 04/2023; LV diastolic function unable to be assessed on echo from 04/2024. Pt's Lasix decreased from 40 mg/day to 20 mg/day on 04/09/24 due to acute on chronic renal dysfunction. Received 40mg IV furosemide in ED; volume status improved, no further IV diuretics at this time per cardiology's recommendation. No acute electrolyte abnormalities today; continue w/ daily weights + I&O's. Progressive Weakness Cough w/ Sputum Production Admitting CXR showed cardiomegaly and mild pulmonary edema. Chest CT revealed mild pulmonary vascular congestion and interstitial pulmonary edema. WBC downtrending from 13.62 yesterday to 11.94 today (04/30). No evidence of an acute pneumonia, procalcitonin negative. UA w/ trace leukocyte esterase, evidence of urine WBC. Urine culture showing more than 3 types of organisms present, all high counts - repeat collection recommended. Ordered repeat urine culture, will follow results. Will continue empiric ceftriaxone and doxycycline. PT/OT evaluations pending per CM's recommendation. Paroxysmal Atrial Fibrillation - EKG this morning (04/29) revealed persistent afib, LAD. Tachybrady Syndrome s/p Pacemaker - Previously reprogrammed to DDD. Amiodarone was previously discontinued due to toxicity. Recently digoxin was held because of levels were 1.2; digoxin level < 0.3 on 04/27. Pacemaker interrogation on 04/27/24 demonstrated appropriate function, 8.6 years remaining longevity. Patient has been in atrial fibrillation since 02/23/24 with heart rates trending u p since early March. Pt underwent AV junction ablation yesterday (04/29); however, attempt yesterday at AV junction ablation was incomplete. Plan is for pt to undergo repeat AV junction ablation tomorrow AM (05/01) - pt still in atrial fibrillation. EKG this morning (04/30) showing atrial fibrillation w/ ventricular escape complexes and fusion beats. Will continue INTERMEDIATE MANAGER po metoprolol succinate, Eliquis - closely monitor rhythm/rate on telemetry. Elevated Lactic Acid Lactate 2.8 on admission; likely 2/2 acute on chronic systolic HF. Will continue empiric ABX regimen; procalcitonin negative. Preliminary blood cx showing no growth so far. Continue ABX therapy until final read complete. Hyperglycemia H/O Prediabetes - ? Possible new-onset diabetes ? SSI regimen initiated; BSG 121 this AM (04/30). Glycemic pharmacy assisting with SSI changes PRN. Hgb A1c 7.2 on 04/28/24; continue to follow BSG levels. JUNIOR on CKD Stage IV Baseline creatinine ~2; presented with creatinine of 2.5. Received 40mg IV furosemide in ED; volume status improved, will hold IV Lasix for now. Creatinine improved from yesterday; 2.63 (04/29) --> 2.35 (04/30). Will follow repeat lab results and closely monitor renal function. Hold nephrotoxic medications when able; could consult nephrology if creatinine worsens. Prolonged QTc EKG this morning (04/30) revealed prolonged QTc of 594ms. Continue to avoid QTC prolonging medications. Generalized Anxiety Disorder (MELQUIADES) Pt on Lexapro INTERMEDIATE MANAGER, holding for now 2/2 prolonged QTC. HTN Continue INTERMEDIATE MANAGER metoprolol succinate 100mg BID; holding diuretics for now. Isosorbide and amlodipine stopped per cardiology's recommendation. Avoid diltiazem secondary to reduced EF; continue to monitor on telemetry. Hypothyroidism: Continue INTERMEDIATE MANAGER levothyroxine, TSH 1.848 at time of admission. H/O MCA Stroke, Hyperlipidemia: Continue INTERMEDIATE MANAGER Plavix and statin therapy. Other Chronic Medical Conditions: GERD, gout --> Can continue INTERMEDIATE MANAGER famotidine and allopurinol. DVT Prophylaxis: On Eliquis Code Status: DNR/DNI - As per previous provider documentation. PCP: Kasandra Antunez DO Disposition: Patient admitted in PCU/Telemetry. Unable to determine anticipated discharge date at this time; per my discussion with the patient's sister, it is unlikely that the patient would be agreeable to placement upon discharge. Patient currently lives at home with her son. Patient does have an at-home personal mechanical engineering specialist from [employer] helping her out 7 days/week from ~9am-5pm. Patient seen in collaboration with Dr. Beltran. Please see addendum. I spent a total of 45 minutes coordinating, documenting, and providing care for this patient excluding time spent in the performance of separately billed services. This included personally reviewing all current laboratories and imaging studies, medical reconciliation, outpatient chart review and discussion with specialists. This chart was completed in part utilizing Speech Voice Recognition Software. Grammatical errors, random word insertions, pronoun errors, and incomplete sentences are an occasional consequence of this system due to software limitations, ambient noise, and hardware issues. Any formal questions or concerns about the content, text, or information contained within the body of this dictation should be directly addressed to the provider for clarification. Admission and Anticipated Discharge Date Admission Date: April 28, 2024 Supervising Physician Co-Signing Physician Notes Patient seen and examined No complaints today Per Cardiology, AVN ablation was incomplete yesterday and will be done again tomorrow Keep NPO PMN Updated sister at bedside Agree with findings and plans as detailed by Advanced Provider and take full responsibility Subjective Patient seen and examined in room S239-2. Patient more alert this morning, was awake when I entered the room. She had just spoke with Dr. Anne before I arrived to see her. Denies any chest pain, SOB or abdominal pain. Instructed patient that I would like her to get up and moving a little bit today. Patient agreeable with that goal; states her sister would be in to see her later on today. Patient is still a bit wifty with conversation, but offers no complaints/concerns at this time. Telemetry overnight shows decrease in her HR to the 80s-90s, but still in atrial fibrillation. Review of Systems Review of Systems: At least ten systems reviewed and negative, except as noted in the HPI. Physical Exam Physical Exam: General: No acute distress, very hard of hearing. Patient more awake, still wifty with conversation but very pleasant. HEENT: Normocephalic, atraumatic. Conjunctivae normal, anicteric sclerae. External ear and nose normal, oropharynx normal. Respiratory: Normal respiratory effort, diminished breath sounds, no wheeze. No accessory muscle use. Cardiovascular: Tachycardic, irregularly irregular rhythm. Peripheral pulses palpable, no BLE edema. Vessels: No JVD. Abdomen/GI: Normal bowel sounds, soft, nontender, no hepatosplenomegaly. Extremities/Musculoskeletal: No cyanosis or clubbing, moves all extremities when instructed to. Neurologic: PERRL, EOMI, accommodation nl, no overt focal deficits. Skin: No rashes, normal color, warm/dry. Results & Data Results & Data Vital Signs (Past 12 Hours) Vital Signs Temp Pulse Resp BP BP Pulse Ox O2 Del Method 04/30/24 07:33 36.4 C L 95 H 16 95/57 L 90 Room Air 04/30/24 04:22 36.8 C 94 H 17 105/70 94 Room Air 04/29/24 23:56 36.7 C 86 16 98/56 L 92 Room Air Laboratory Results Short CBC 04/30/24 Range/Units 06:47 WBC 11.94 H (4.8-10.8) K/ul Hgb 10.9 L (12.0-16.0) g/dl Hct 34.9 L (37.0-47.0) % Plt Count 303 (130-400) K/uL [facility] 04/30/24 06:47 Sodium 141 Potassium 3.8 Chloride 105 Carbon Dioxide 25 BUN 41 H Creatinine 2.35 H Glucose 100 H Calcium 9.0 Diagnostic Findings Chest X-Ray 04/27/24 21:43 XR chest 1V portable CLINICAL HISTORY: weakness TECHNIQUE: Single frontal radiograph of the chest was obtained. Comparison: Comparison is made to chest radiograph 03/29/2024 FINDINGS: An implanted pacemaker is seen. Cardiomegaly is noted. Prominence and cephalization of the vasculature is seen. No evidence of pleural effusion or pneumothorax. IMPRESSION: Cardiomegaly and mild pulmonary edema. ACT 112: Negative or not required by law. Electronically signed by: Rd Adams M.D. 04/28/2024 8:[address] 04/28/24 01:13 Exam(s): CT CHEST Without Contrast EXAM: CT Chest Without Intravenous Contrast CLINICAL HISTORY: Reason for exam: sob. chf vs pneumonia. TECHNIQUE: Axial computed tomography images of the chest without intravenous contrast. CTDI is 13.13 mGy and DLP is 378.07 mGy-cm. Automated exposure control was utilized for the study. A dose lowering technique was utilized adhering to the principles of ALARA. COMPARISON: 03/30/24 FINDINGS: Lungs: Mild pulmonary vascular congestion and interstitial pulmonary edema visualized. Pleural space: Unremarkable. No pneumothorax. No significant effusion. Heart: Heart is enlarged, unchanged. Mild coronary artery calcifications redemonstrated. No pericardial effusion. Bones/joints: Ankylosing spondylitis of the thoracic spine. No acute fracture. No dislocation. Soft tissues: Unremarkable. Vasculature: See above. Lymph nodes: Unremarkable. No enlarged lymph nodes. Tubes, lines and devices: Left-sided pacemaker, unchanged. IMPRESSION: Mild pulmonary vascular congestion and interstitial pulmonary edema visualized. Electronically signed by: Chadd Monreal MD 04/28/24 02:28 AM Medications Administered Allopurinol (Allopurinol 100 Mg Tab) 100 mg PO QAM ALYSSA Stop: 05/28/24 08:59 Last Admin: 04/30/24 09:00 Dose: 100 mg Documented By: Admin: 04/29/24 09:01 Dose: 100 mg Documented By: Admin: 04/28/24 08:59 Dose: 100 mg Documented By: MARYLU Apixaban (Apixaban 2.5 Mg Tab) 2.5 mg PO BID ALYSSA Stop: 05/28/24 08:59 Last Admin: 04/30/24 09:00 Dose: 2.5 mg Documented By: Admin: 04/29/24 20:36 Dose: 2.5 mg Documented By: Admin: 04/29/24 08:59 Dose: Not Given Documented By: Admin: 04/28/24 20:50 Dose: 2.5 mg Documented By: Admin: 04/28/24 08:57 Dose: 2.5 mg Documented By: MARYLU Atorvastatin Calcium (Atorvastatin 40 Mg Tab) 40 mg PO HS ALYSSA Stop: 05/28/24 20:59 Last Admin: 04/29/24 20:36 Dose: 40 mg Documented By: Admin: 04/28/24 20:50 Dose: 40 mg Documented By: TREY Calcitriol (Calcitriol 0.25 Mcg Capsule) 0.5 mcg PO [facility] Stop: 05/28/24 08:59 Last Admin: 04/30/24 09:00 Dose: 0.5 mcg Documented By: Admin: 04/29/24 09:00 Dose: 0.5 mcg Documented By: Admin: 04/28/24 08:59 Dose: 0.5 mcg Documented By: MARYLU Clopidogrel Bisulfate (Clopidogrel Bisulfate 75 Mg Tab) 75 mg PO [facility] Stop: 05/28/24 08:59 Last Admin: 04/30/24 09:01 Dose: 75 mg Documented By: Admin: 04/29/24 09:01 Dose: 75 mg Documented By: Admin: 04/28/24 09:00 Dose: 75 mg Documented By: MARYLU Docusate Sodium (Docusate Sodium 100 Mg Cap) 100 mg PO BID [facility] Stop: 05/28/24 08:59 Last Admin: 04/30/24 09:01 Dose: 100 mg Documented By: Admin: 04/29/24 20:36 Dose: 100 mg Documented By: Admin: 04/29/24 09:00 Dose: 100 mg Documented By: Admin: 04/28/24 20:50 Dose: 100 mg Documented By: Admin: 04/28/24 08:59 Dose: 100 mg Documented By: MARYLU Escitalopram Oxalate (Escitalopram Oxalate 20 Mg Tab) 20 mg PO [facility] Stop: 05/28/24 08:59 Last Admin: 04/30/24 09:01 Dose: 20 mg Documented By: Admin: 04/29/24 09:00 Dose: 20 mg Documented By: Admin: 04/28/24 08:57 Dose: 20 mg Documented By: MARYLU Famotidine (Famotidine 20 Mg Tab) 20 mg PO [facility] Stop: 05/28/24 08:59 Last Admin: 04/30/24 09:01 Dose: 20 mg Documented By: Admin: 04/29/24 20:36 Dose: 20 mg Documented By: Admin: 04/29/24 09:00 Dose: 20 mg Documented By: Admin: 04/28/24 20:50 Dose: 20 mg Documented By: Admin: 04/28/24 09:00 Dose: 20 mg Documented By: MARYLU Ceftriaxone Sodium (Rocephin) 2,000 mg in 50 mls @ 100 mls/hr IV Q24H [facility] Stop: 05/05/24 02:59 Last Infusion: 04/30/24 06:00 Dose: Infused Documented By: Admin: 04/30/24 04:02 Dose: 100 mls/hr Documented By: Infusion: 04/29/24 04:22 Dose: Infused Documented By: Admin: 04/29/24 03:48 Dose: 100 mls/hr Documented By: Infusion: 04/28/24 04:17 Dose: Infused Documented By: Admin: 04/28/24 03:04 Dose: 100 mls/hr Documented By: TREY Doxycycline Hyclate 100 mg/ (Dextrose) 100 mls @ 50 mls/hr IV Q12H ALYSSA Stop: 05/05/24 03:59 Last Infusion: 04/30/24 06:00 Dose: Infused Documented By: Admin: 04/30/24 04:03 Dose: 50 mls/hr Documented By: Infusion: 04/29/24 19:04 Dose: Infused Documented By: Admin: 04/29/24 17:02 Dose: 50 mls/hr Documented By: Infusion: 04/29/24 06:13 Dose: Infused Documented By: Admin: 04/29/24 03:48 Dose: 50 mls/hr Documented By: Infusion: 04/28/24 19:19 Dose: Infused Documented By: Admin: 04/28/24 16:47 Dose: 50 mls/hr Documented By: Infusion: 04/28/24 04:58 Dose: Infused Documented By: Admin: 04/28/24 03:03 Dose: 50 mls/hr Documented By: TREY Promethazine HCl 12.5 mg/ (Sodium Chloride) 50.5 mls @ 202 mls/hr IV Q6H PRN PRN Reason: Nausea And Vomiting Stop: 05/28/24 11:32 Last Infusion: 04/28/24 19:19 Dose: Infused Documented By: Admin: 04/28/24 11:54 Dose: 202 mls/hr Documented By: MARYLU Insulin Aspart (Insulin Aspart Per Unit Charge) 0 units SC ACHS [facility] Stop: 05/29/24 05:59 Last Admin: 04/30/24 09:00 Dose: 3 units Documented By: MIMI Co-signed By: LITA Admin: 04/29/24 21:02 Dose: Not Given Documented By: TREY Insulin Glargine (Lantus Per Unit Charge) 7 units SC DAILY [facility] Stop: 05/28/24 08:59 Last Admin: 04/30/24 09:01 Dose: 7 units Documented By: MIMI Co-signed By: LITA Admin: 04/29/24 09:01 Dose: 7 units Documented By: AMRIK Co-signed By: SUE Admin: 04/28/24 08:58 Dose: 7 units Documented By: MARYLU Co-signed By: TIMO Insulin Glargine (Lantus Per Unit Charge) 0 units SC HS [facility]; Protocol Stop: 05/28/24 20:59 Last Admin: 04/29/24 21:04 Dose: 3 units Documented By: TREY Co-signed By: ASH Admin: 04/28/24 21:12 Dose: 3 units Documented By: TREY Co-signed By: ASH Levothyroxine Sodium (Levothyroxine Sodium 88 Mcg Tablet) 88 mcg PO DAILYBB [facility] Stop: 05/28/24 06:29 Last Admin: 04/30/24 06:13 Dose: 88 mcg Documented By: Admin: 04/29/24 05:57 Dose: 88 mcg Documented By: Admin: 04/28/24 06:19 Dose: 88 mcg Documented By: TREY Magnesium Oxide (Magnesium Oxide 400 Mg Tab) 400 mg PO DAILY [facility] Stop: 05/28/24 08:59 Last Admin: 04/30/24 09:01 Dose: 400 mg Documented By: Admin: 04/29/24 09:01 Dose: 400 mg Documented By: Admin: 04/28/24 08:57 Dose: 400 mg Documented By: MARYLU Metoprolol Succinate (Metoprolol Succ 50mg Ext Rel Tab) 100 mg PO AMHS [facility] Stop: 05/28/24 08:59 Last Admin: 04/30/24 08:04 Dose: Not Given Documented By: Admin: 04/29/24 20:37 Dose: 100 mg Documented By: Admin: 04/29/24 09:00 Dose: 100 mg Documented By: Admin: 04/28/24 20:50 Dose: 100 mg Documented By: Admin: 04/28/24 08:58 Dose: 100 mg Documented By: MARYLU Discontinued Medications Albuterol (Albuterol Hfa 8 Gm Inhaler) 2 puffs INH QIDR ALYSSA Stop: 05/28/24 06:59 Last Admin: 04/28/24 11:49 Dose: Not Given Documented By: Admin: 04/28/24 07:05 Dose: 2 puffs Documented By: JULEE Cefazolin Sodium (Cefazolin 330 Mg/Ml 1 Gm Vial) Confirm Administered Dose 990 mg .ROUTE .STK-MED ONE Stop: 04/29/24 14:10 Last Admin: 04/29/24 15:10 Dose: 990 mg Documented By: BENSON Diphenhydramine HCl (Diphenhydramine 50 Mg/Ml Vial) Confirm Administered Dose 50 mg .ROUTE .STK-MED ONE Stop: 04/29/24 16:01 Last Admin: 04/29/24 16:40 Dose: 25 mg Documented By: PAM Fentanyl Citrate (Fentanyl Citrate Pf 100 Mcg/2 Ml Vial) Confirm Administered Dose 100 mcg .ROUTE .STK-MED ONE Stop: 04/29/24 14:09 Last Increment: 04/29/24 16:39 Dose: 75 mcg Documented By: PAM Furosemide (Furosemide 40 Mg/4 Ml Vial) 40 mg IV ONE ONE Stop: 04/27/24 23:08 Last Admin: 04/27/24 23:39 Dose: 40 mg Documented By: CHELITA Furosemide (Furosemide 40 Mg/4 Ml Vial) 40 mg IV DAILY [facility] Stop: 05/28/24 08:59 Last Admin: 04/29/24 11:28 Dose: Not Given Documented By: Admin: 04/28/24 08:56 Dose: 40 mg Documented By: MARYLU Magnesium Sulfate/Dextrose (Magnesium Sulfate / D5w) 1 gm in 100 mls @ 50 mls/hr IV ONE ONE Stop: 04/28/24 09:50 Last Infusion: 04/28/24 19:19 Dose: Infused Documented By: Admin: 04/28/24 08:56 Dose: 50 mls/hr Documented By: MARYLU Digoxin 125 mcg/ Syringe 10 mls @ 2 mls/min IV NOW ONE Stop: 04/28/24 11:04 Last Admin: 04/28/24 11:53 Dose: 2 mls/min Documented By: MARYLU Insulin Aspart (Insulin Aspart Per Unit Charge) 0 units SC ACHS ALYSSA Stop: 05/28/24 07:29 Last Admin: 04/28/24 21:12 Dose: 1 units Documented By: TREY Co-signed By: ASH Admin: 04/28/24 16:47 Dose: 4 units Documented By: MARYLU Co-signed By: ALBERT Admin: 04/28/24 12:06 Dose: 2 units Documented By: MARYLU Co-signed By: LITA Admin: 04/28/24 08:58 Dose: 1 units Documented By: MARYLU Co-signed By: TIMO Insulin Aspart (Insulin Aspart Per Unit Charge) 0 units SC Q6 [facility] Stop: 05/29/24 05:59 Last Admin: 04/29/24 18:21 Dose: 1 units Documented By: AMRIK Co-signed By: LITA Admin: 04/29/24 16:05 Dose: Not Given Documented By: Admin: 04/29/24 06:25 Dose: 1 units Documented By: TREY Co-signed By: TENZIN Lidocaine HCl (Lidocaine 1% Local 20 Ml Vial) Confirm Administered Dose 20 ml .ROUTE .STK-MED ONE Stop: 04/29/24 14:00 Last Admin: 04/29/24 15:10 Dose: 20 ml Documented By: BENSON Metoprolol Tartrate (Metoprolol Tartrate 1 Mg/Ml Vial) 2.5 mg IV NOW STA Stop: 04/28/24 04:39 Last Admin: 04/28/24 05:17 Dose: 2.5 mg Documented By: TREY Metoprolol Tartrate (Metoprolol Tartrate 1 Mg/Ml Vial) Confirm Administered Dose 5 mg IV .STK-MED ONE Stop: 04/28/24 05:10 Last Admin: 04/28/24 05:18 Dose: Not Given Documented By: TREY Midazolam HCl (Midazolam Hcl 5 Mg/Ml 1 Ml Vial) Confirm Administered Dose 5 mg .ROUTE .STK-MED ONE Stop: 04/29/24 14:09 Last Increment: 07/08/24 16:39 Dose: 1 mg Documented By: PAM Potassium Chloride (Potassium Chloride Crtab 20 Meq Tabcr) 20 meq PO NOW STA Stop: 04/28/24 07:53 Last Admin: 04/28/24 08:56 Dose: 20 meq Documented By: MARYLU
[2024-04-30 08:12] LABS: Hematocrit (blood only) 34.9 % (37.0-47.0); Hemoglobin 10.9 g/dl (12.0-16.0); Mean Corpuscular Hemoglobin 31.9 pg (25.0-34.0); Mean Corpuscular Hgb Conc 31.2 g/dL (32.0-36.0); Mean Platelet Volume 11.1 fL (9.4-12.4); Nucleated RBC # (auto) 0.05 K/uL (0.00-0.12); Nucleated RBC % (auto) 0.4 %; Platelet Count 303 K/uL (130-400); RDW Coefficient of Variation 17.2 % (11.5-14.5); RDW Standard Deviation 63.9 fL (36.4-46.3); Red Blood Count 3.42 M/uL (4.20-5.40); White Blood Count 11.94 K/ul (4.8-10.8)
[2024-04-30 08:39] LABS: BUN Creatinine Ratio 17.4 (10-20); Est GFR (African American) 22.2 ml/min; Est GFR (Non-African American) 19.2 ml/min; Potassium 3.8 mmol/L (3.5-5.1)
--- NOTE | 2024-04-30 10:15 | Cardiology Progress Note ---
Date of Service April 30, 2024 Assessment & Plan (1) Acute on chronic HFrEF (heart failure with reduced ejection fraction): (2) Nonischemic cardiomyopathy: (3) Atrial fibrillation with rapid ventricular response: (4) Tachycardia-bradycardia syndrome: (5) Cardiac pacemaker: Plan Complex 78-year-old female with severe nonischemic cardiomyopathy admitted with acute decompensated systolic congestive heart failure about three weeks following reduction in oral diuretics due to acute on chronic renal dysfunction. Patient with persistent atrial fibrillation with a rapid ventricular response following discontinuation of digoxin in mid March. Patient chronically prescribed reduced dose Eliquis anticoagulation. Volume status improved following measures on presentation and admission. Heart rates remain uncontrolled with limited options - prior toxicity to amiodarone, LVEF 10-15%, stage IV CKD, borderline systolic blood pressure. Recommendations: Patient hemodynamically stable and no signs of volume overload but remains in atrial fibrillation with difficult to control rhythm. Patient n.p.o. for anticipated AV junction ablation bilateral reduction in medical therapy and improve symptoms. Patient agrees 04/30/2024 No acute change in clinical status though heart rate slightly slower. Planned repeat attempt at AV junction ablation in a.m. Would keep n.p.o. after midnight No adjustments in medications. No further IV diuretic Patient out of bed in chair I spent a total of 35 minutes on the date of service in preparation, delivery, and documentation of the care provided to this patient excluding any time spent in the performance of separately billed services. Admission and Anticipated Discharge Date Admission Date: April 28, 2024 Subjective Patient seen and examined, chart, medications, telemetry reviewed. Denies any complaint chest pain, shortness of breath dizziness or lightheadedness Still in atrial fibrillation with elevated ventricular sponsor rates but slightly lower. Intermittent ventricular pacing Attempt yesterday at AV junction ablation incomplete with plan to repeat procedure in a.m. Review of Systems Review of Systems: All systems reviewed & are unremarkable except as noted in Subjective Physical Exam Constitutional: WD/WN, vitals as above no acute distress Eyes: PERRL, conjunctivae normal, anicteric sclerae Neck: trachea midline, no thyromegaly Respiratory: normal respiratory effort, lungs clear to auscultation Cardiovascular: Rate/Rhythm: + tachycardic and + irregularly irregular Vessels: no JVD Extremities: no edema Chest (Breasts): Chest: + pacemaker Gastrointestinal (Abdomen): normal bowel sounds, soft, nontender, no hepatosplenomegaly Skin: no rashes, warm and dry Results & Data Vital Signs (Past 12 Hours) Vital Signs Temp Pulse Resp BP BP Pulse Ox O2 Del Method 04/30/24 07:33 36.4 C L 95 H 16 95/57 L 90 Room Air 04/30/24 04:22 36.8 C 94 H 17 105/70 94 Room Air 04/29/24 23:56 36.7 C 86 16 98/56 L 92 Room Air Laboratory Results Laboratory Results - last 24 hr 04/29/24 04/29/24 04/29/24 12:04 16:50 20:57 WBC RBC Hgb Hct MCV MCH MCHC RDW Std Deviation RDW Coeff of Etta Plt Count MPV Absolute Nucleated RBC Nucleated RBC % (auto) Sodium Potassium Chloride Carbon Dioxide Anion Gap BUN Creatinine Est Cr Clr Drug Dosing Est GFR ( Amer) Est GFR (Non-Af Amer) BUN/Creatinine Ratio Glucose POC Glucose 141 H 145 H 139 H Calcium 04/30/24 04/30/24 06:47 07:36 WBC 11.94 H RBC 3.42 L Hgb 10.9 L Hct 34.9 L MCV 102.0 H MCH 31.9 MCHC 31.2 L RDW Std Deviation 63.9 H RDW Coeff of Etta 17.2 H Plt Count 303 MPV 11.1 Absolute Nucleated RBC 0.05 Nucleated RBC % (auto) 0.4 Sodium 141 Potassium 3.8 Chloride 105 Carbon Dioxide 25 Anion Gap 11 BUN 41 H Creatinine 2.35 H Est Cr Clr Drug Dosing 19.0 Est GFR ( Amer) 22.2 Est GFR (Non-Af Amer) 19.2 BUN/Creatinine Ratio 17.4 Glucose 100 H POC Glucose 121 H Calcium 9.0
--- NOTE | 2024-04-30 10:48 | Electrocardiogram Report ---
Test Reason : Blood Pressure : / mmHG Vent. Rate : 090 BPM Atrial Rate : 094 BPM P-R Int : 000 ms QRS Dur : 166 ms QT Int : 486 ms P-R-T Axes : 000 112 -75 degrees QTc Int : 594 ms Atrial fibrillation with premature ventricular or aberrantly conducted complexes and fusion beats Non-specific intra-ventricular conduction block Abnormal ECG When compared with ECG of 29-APR-2024 06:02, Sinus rhythm is now with ventricular escape complexes Confirmed by Lionel Martin ([id number]) on 04/30/2024 10:47:54 AM Referred By: REFERRED SELF Confirmed By:Rober Martin
[2024-04-30] MEDS: LORazepam 0.5 MG TAB PO ONE (20:45)
[2024-05-01 07:53] LABS: Hematocrit (blood only) 34.9 % (37.0-47.0); Mean Corpuscular Hemoglobin 32.2 pg (25.0-34.0); Mean Corpuscular Hgb Conc 31.5 g/dL (32.0-36.0); Mean Platelet Volume 10.9 fL (9.4-12.4); Nucleated RBC # (auto) 0.04 K/uL (0.00-0.12); Nucleated RBC % (auto) 0.4 %; Platelet Count 280 K/uL (130-400); RDW Coefficient of Variation 17.5 % (11.5-14.5); RDW Standard Deviation 64.5 fL (36.4-46.3); Red Blood Count 3.42 M/uL (4.20-5.40); White Blood Count 10.11 K/ul (4.8-10.8)
[2024-05-01 08:18] LABS: Creatinine Clr Calc Pharmacy 21.2 ml/min; Est GFR (African American) 25.5 ml/min; Magnesium 2.3 mg/dl (1.7-2.4); Phosphorus 3.2 mg/dl (2.5-4.9); Potassium 3.5 mmol/L (3.5-5.1)
--- NOTE | 2024-05-01 10:52 | Hospitalist Progress Note ---
Date of Service May 01, 2024 Assessment & Plan (1) Acute on chronic HFrEF (heart failure with reduced ejection fraction): (2) Paroxysmal atrial fibrillation: (3) Acute kidney injury superimposed on chronic kidney disease: (4) Prolonged QT interval: Plan Acute on Chronic HFrEF H/O Nonischemic Cardiomyopathy - HTN HLD Paroxysmal Atrial Fibrillation Tachybrady Syndrome s/p Pacemaker Prolonged QTC -BNP 2254 on 04/27/24. -LVEF<15% on echo(04/28/24); reduced compared to previous echo 1 year ago (EF of 20-24% on echo performed 05/17/23) -Grade III diastolic dysfunction noted on echo from 04/2023; LV diastolic function unable to be assessed on echo from 04/2024. -Intially given diuretics, now discontinued per cards - Pacemaker interrogation on 04/27/24 demonstrated appropriate function, 8.6 years remaining longevity. - Patient has been in atrial fibrillation since 02/23/24 with heart rates trending up since early March. - Attempted but failed AV junction ablation 04/29 -Plan is for pt to undergo repeat AV junction ablation 05/01 - pt still in atrial fibrillation however rates are a bit lower today, tele monitoring overnight with rates 80s-100s. -Follow lytes, daily weights, strict I&O's - Continue JANITOR CUSTODIAN metoprolol succinate 100mg BID, eliquis for anticoagulation, plavix, statin - Amiodarone was previously discontinued due to toxicity., Digoxin held d/t levels = 1.2; digoxin level < 0.3 on 04/27. Progressive Weakness Cough w/ Sputum Production - Does not appear to be respiratory: CXR neg, Chest CT revealed mild pulmonary vascular congestion and interstitial pulmonary edema. No pna, resp RVP negt - WBC trended down - Initial UA and UCx grew out 3 types orangisms, repeat culture pending -continue ceftriaxone and doxycycline (started 04/28). - PT/OT - Lactate trended down likely due to acute on chronic systolic HF Hyperglycemia New Onset DM II - SSI regimen initiated; BSG 121 this AM - Glycemic pharmacy assisting with SSI changes PRN. - Hgb A1c 7.2 on 04/28/24; continue to follow BSG levels. JUNIOR on CKD Stage IV - Baseline creatinine ~2; presented with creatinine of 2.5., slowly improving - Off diuretics - Hold nephrotoxins and renally reduce meds Generalized Anxiety Disorder ([place]QUIADES) -Pt on Lexapro JANITOR CUSTODIAN, holding for now 2/2 prolonged QTC. Hypothyroidism - Continue JANITOR CUSTODIAN levothyroxine, TSH 1.848 Other Chronic Medical Conditions: hx MCA CVA GERD Gout - Chronic, stable, cont home meds DVT ppx: teds, scds, eliquis Lines: 1 PIV FEN/GI:Cardiac, DM diet CODE: DNR/DNI Dispo: From home, lives at home with her son. Patient does have an at-home personal entry level finance from helping her out 7 days/week from ~9am-5pm. Likely to remain in the hospital x 1-2 days A total of 45 minutes were spent with greater than 50% of that time face to face with the patient, personally reviewing all current laboratories, imaging studies, past medication reconciliation, outpatient chart review, and discussion with specialists to collaborate care for the patient with attending. Please see attending documentation for corrections and/or additions. DVT Prophylaxis: On [facility] Admission and Anticipated Discharge Date Admission Date: April 28, 2024 Supervising Physician Co-Signing Physician Notes Patient seen and examined No complaints today Per Cardiology, AVN ablation was incomplete 04/29 and was done today 05/01. Updated sister at bedside Monitor and replete electrolytes Given cough w/ sputum production, pt was started on atb in line of pna, will complete the course at this moment. A1c 7.2, lifestyle modification, f/u w/ PCP for intermodal dispatcher monitoring. Agree with findings and plans as detailed by Advanced Provider and take full responsibility Subjective Patient is seen and examined this morning, states that she is doing well. Denies any acute pain. She is pleasantly confused, unable to participate significantly in ROS, cannot recall that she is in a hospital this morning, but then states she is at [facility]. She does not follow simple commands such as wiggling toes. Possible due to being so hard of hearing. 10 point ROS reviewed and otherwise negative. Physical Exam Physical Exam: General: awake, alert, no apparent distress, elderly white female, pleasantly confused Head: Normocephalic, atraumatic ENT: PERRL, EOMI, no pharyngeal exudate, mucous membranes moist Chest: Clear to auscultation, on room air, no adventitious breath sounds Cardiac: Irregularly irregular, heart rate in the 80s to 90s, few PVCs, no murmur, no JVD, normal peripheral pulses, good capillary refill Abdominal: NABS x 4 quadrants, soft, nondistended, nontender to palpation, no rebound or guarding Extremities: Normal inspection, no peripheral edema or erythema, calfs nontender to palpation Psych: Normal mood and affect Neuro: AAO to self, not time or date, no gross motor deficits as she is moving all extremities while laying in bed, speech is clear, no peripheral sensory deficits Results & Data Results & Data Vital Signs (Past 12 Hours) Vital Signs Temp Pulse Pulse Resp BP BP Pulse Ox 05/01/24 09:07 82 05/01/24 07:42 36.7 C 86 18 103/69 94 05/01/24 02:24 36.4 C L 89 20 107/73 92 O2 Del Method 05/01/24 09:07 05/01/24 07:42 Room Air 05/01/24 02:24 Room Air
--- NOTE | 2024-05-01 11:07 | Cardiology Progress Note ---
Date of Service May 01, 2024 Assessment & Plan (1) Acute on chronic HFrEF (heart failure with reduced ejection fraction): (2) Nonischemic cardiomyopathy: (3) Atrial fibrillation with rapid ventricular response: (4) Tachycardia-bradycardia syndrome: (5) Cardiac pacemaker: Plan Complex 78-year-old female with severe nonischemic cardiomyopathy admitted with acute decompensated systolic congestive heart failure about three weeks following reduction in oral diuretics due to acute on chronic renal dysfunction. Patient with persistent atrial fibrillation with a rapid ventricular response following discontinuation of digoxin in mid March. Patient chronically prescribed reduced dose Eliquis anticoagulation. Volume status improved following measures on presentation and admission. Heart rates remain uncontrolled with limited options - prior toxicity to amiodarone, LVEF 10-15%, stage IV CKD, borderline systolic blood pressure. Recommendations: Patient hemodynamically stable and no signs of volume overload but remains in atrial fibrillation with difficult to control rhythm. Patient n.p.o. for anticipated AV junction ablation bilateral reduction in medical therapy and improve symptoms. Patient agrees 04/30/2024 No acute change in clinical status though heart rate slightly slower. Planned repeat attempt at AV junction ablation in a.m. Would keep n.p.o. after midnight No adjustments in medications. No further IV diuretic Patient out of bed in chair 05/01/2024 Patient with longstanding difficulties with atrial fibrillation with poorly tolerated ventricular response rates despite multiple medical trials. Adverse reaction to amiodarone Patient to undergo AV junction ablation today with pacemaker in place I spent a total of 30 minutes on the date of service in preparation, delivery, and documentation of the care provided to this patient excluding any time spent in the performance of separately billed services. Admission and Anticipated Discharge Date Admission Date: April 28, 2024 Subjective Patient was seen and examined, chart, medications, telemetry reviewed. Family in room. Patient no acute complaints awaiting procedure later today. No dizziness or lightheadedness. Atrial fibrillation rates slightly better. Physical Exam Constitutional: WD/WN, vitals as above no acute distress Eyes: PERRL, conjunctivae normal, anicteric sclerae Neck: trachea midline, no thyromegaly Respiratory: normal respiratory effort, lungs clear to auscultation Cardiovascular: Rate/Rhythm: + tachycardic and + irregularly irregular Vessels: no JVD Extremities: no edema Chest (Breasts): Chest: + pacemaker Gastrointestinal (Abdomen): normal bowel sounds, soft, nontender, no hepatosplenomegaly Skin: no rashes, warm and dry Results & Data Vital Signs (Past 12 Hours) Vital Signs Temp Pulse Pulse Resp BP BP Pulse Ox 05/01/24 09:07 82 05/01/24 07:42 36.7 C 86 18 103/69 94 05/01/24 02:24 36.4 C L 89 20 107/73 92 O2 Del Method 05/01/24 09:07 05/01/24 07:42 Room Air 05/01/24 02:24 Room Air Laboratory Results Laboratory Results - last 24 hr 04/30/24 04/30/24 05/01/24 16:00 20:21 07:14 WBC 10.11 RBC 3.42 L Hgb 11.0 L Hct 34.9 L MCV 102.0 H MCH 32.2 MCHC 31.5 L RDW Std Deviation 64.5 H RDW Coeff of Etta 17.5 H Plt Count 280 MPV 10.9 Absolute Nucleated RBC 0.04 Nucleated RBC % (auto) 0.4 Sodium 142 Potassium 3.5 Chloride 107 Carbon Dioxide 26 Anion Gap 9 BUN 42 H Creatinine 2.10 H Est Cr Clr Drug Dosing 21.2 Est GFR ( Amer) 25.5 Est GFR (Non-Af Amer) 22.0 BUN/Creatinine Ratio 20.0 Glucose 91 POC Glucose 143 H 115 H Calcium 9.0 Phosphorus 3.2 Magnesium 2.3 05/01/24 05/01/24 07:16 10:47 WBC RBC Hgb Hct MCV MCH MCHC RDW Std Deviation RDW Coeff of Etta Plt Count MPV Absolute Nucleated RBC Nucleated RBC % (auto) Sodium Potassium Chloride Carbon Dioxide Anion Gap BUN Creatinine Est Cr Clr Drug Dosing Est GFR ( Amer) Est GFR (Non-Af Amer) BUN/Creatinine Ratio Glucose POC Glucose 97 114 H Calcium Phosphorus Magnesium
--- NOTE | 2024-05-01 12:55 | History & Physical Bridge Note ---
Date of Service May 01, 2024 History & Physical Bridge Note I have examined the patient, reviewed the History & Physical and in the interval since the performance of the History & Physical I have noted the following changes of clinical significance: pt with AF with RVR; we were unable to do the AVN ablation on 04/29/24 due to equipment malfunction; she returns today for the procedure; re-discussed the procedure and potential complications with the patient and her sisters-they expressed an understanding and consents signed.
--- NOTE | 2024-05-01 12:56 | Pre Anesthesia Assessment ---
Date of Service May 01, 2024 Pre Sedation Assessment Vital Signs Temp Pulse Pulse Resp BP BP BP 05/01/24 12:47 92 H 14 119/70 05/01/24 11:06 36.3 C L 84 20 111/74 05/01/24 09:10 05/01/24 09:07 82 05/01/24 07:42 36.7 C 86 18 103/69 05/01/24 02:24 36.4 C L 89 20 107/73 04/30/24 22:19 36.6 C 89 18 106/70 04/30/24 19:07 36.6 C 78 20 115/80 04/30/24 14:10 36.5 C 98 H 17 99/75 L Pulse Ox O2 Del Method 05/01/24 12:47 94 Room Air 05/01/24 11:06 92 Room Air 05/01/24 09:10 Room Air 05/01/24 09:07 05/01/24 07:42 94 Room Air 05/01/24 02:24 92 Room Air 04/30/24 22:19 91 Room Air 04/30/24 19:07 96 Room Air 04/30/24 14:10 95 Room Air Cardiovascular + tachycardic and + irregularly irregular Respiratory normal respiratory effort, lungs clear to auscultation Pre-Sedation Airway Assessment Smoking Status: Never smoker Hx Sleep Apnea: No Hx Difficult Intubation: No Short, Thick Neck: No Thyromental Distance: < 3.5 Finger Breadths Oral Cavity: + WNL Mallampati Class: II ASA: ASA3 NPO Status Date of Last Intake of Fluids: 04/30/24 Date of Last Intake of Solid Food: 04/30/24 Procedure Planning Contraindications for Sedation: none Current Medications Reviewed: Yes Notes The planned sedation has been discussed with the patient. Informed Consent was obtained. I have identified the patient, determined the appropriateness of sedation and have assessed the patient immediately prior to the procedure. All medicine(s) and interventions are by my order.
[2024-05-01] MEDS: LIDOCAINE 1% LOCAL 20 ML VIAL ONE (13:51)
[2024-05-01] MEDS: ceFAZolin 330 MG/ML 1 GM VIAL ONE (13:51)
[2024-05-01] MEDS: HEPARIN (PORCINE) 1000 UNIT/ML 10 ML (CATH LAB USE ONLY) ONE (13:52)
[2024-05-01] MEDS: diphenhydrAMINE 50 MG/ML VIAL ONE (13:52)
--- NOTE | 2024-05-01 14:29 | Post Anesthesia Assessment ---
Date of Service May 01, 2024 Post Sedation Assessment Vital Signs Temp Pulse Pulse Resp BP BP BP 05/01/24 12:47 92 H 14 119/70 05/01/24 11:06 36.3 C L 84 20 111/74 05/01/24 09:10 05/01/24 09:07 82 05/01/24 07:42 36.7 C 86 18 103/69 05/01/24 02:24 36.4 C L 89 20 107/73 04/30/24 22:19 36.6 C 89 18 106/70 04/30/24 19:07 36.6 C 78 20 115/80 Pulse Ox O2 Del Method 05/01/24 12:47 94 Room Air 05/01/24 11:06 92 Room Air 05/01/24 09:10 Room Air 05/01/24 09:07 05/01/24 07:42 94 Room Air 05/01/24 02:24 92 Room Air 04/30/24 22:19 91 Room Air 04/30/24 19:07 96 Room Air Recovery Score Activity: Moves 4 extremities Respiration: Deep Breath/Cough Circulation: +/-20% PreAnes Value Consciousness: Fully Awake Oxygen Saturation: > 92% On Room Air Discharge Sedation Level of Care: Fast Track Phase II Post Sedation Plan On clinical assessment, the patient appears to have tolerated the sedation with out complications. Patient is recovering as anticipated. Patient will continue to be monitored by nursing and may be discharged when sedation discharge criteria are met per below protocol. Upon Completions of procedure up to 15 minutes continue every 5 minute vital signs and the P.A.R. score; then discharge to a Phase I or Fast Track to Phase II per the following guidelines: * Discharge Patient to appropriate Phase II area if PAR is 8 or greater or return to pre- procedure baseline. The post - procedure orders will be as directed. * If PAR score is less than 8 or not return to pre-procedure baseline then patient will follow Phase I monitoring till PAR is reached for Phase II. The Phase I may be done in procedure room or may call to secure a Phase I area. * If naloxone or flumazenil are used for reversal, hold in Phase I for continued monitoring from when last reversal dose was given for a minimum of 60 minutes or longer pending the nurse and/or physician discretion of patient condition before discharge to Phase II. Please call the Sedation Physician to re-evaluate and complete post-note for discharge to Phase II area. Do NOT discharge from procedure sedation or Phase 1 until post- sedation evaluation note is complete by procedure /sedation MD Sedation Discharge Instructions to be given to the patient at discharge to home.
[2024-05-01] MEDS: fentaNYL citrate PF 100 MCG/2 ML VIAL ONE (14:42)
[2024-05-01] MEDS: MIDAZOLAM HCL 5 MG/ML 1 ML VIAL ONE (14:43)
[2024-05-01] MEDS: METOPROLOL SUCC 25MG EXT REL TAB PO SCH (17:13)
--- NOTE | 2024-05-01 18:34 | Electrocardiogram Report ---
Test Reason : Blood Pressure : / mmHG Vent. Rate : 081 BPM Atrial Rate : 075 BPM P-R Int : 000 ms QRS Dur : 138 ms QT Int : 440 ms P-R-T Axes : 000 -65 136 degrees QTc Int : 511 ms Ventricular-paced rhythm with PVCs and fusion beats Abnormal ECG When compared with ECG of 30-APR-2024 06:52, Electronic ventricular pacemaker has replaced Atrial fibrillation Confirmed by Lionel Martin ([id number]) on 05/01/2024 6:33:52 PM Referred By: REFERRED SELF Confirmed By:Rober Martin
[2024-05-01] MEDS: LANTUS PER UNIT CHARGE SC SCH (20:32)
[2024-05-02 06:58] LABS: Hematocrit (blood only) 34.6 % (37.0-47.0); Hemoglobin 10.8 g/dl (12.0-16.0); Mean Corpuscular Hemoglobin 32.2 pg (25.0-34.0); Mean Corpuscular Hgb Conc 31.2 g/dL (32.0-36.0); Mean Corpuscular Volume 103.3 fL (80.0-100.0); Mean Platelet Volume 10.9 fL (9.4-12.4); Nucleated RBC # (auto) 0.07 K/uL (0.00-0.12); Nucleated RBC % (auto) 0.7 %; Platelet Count 312 K/uL (130-400); RDW Coefficient of Variation 17.5 % (11.5-14.5); RDW Standard Deviation 65.8 fL (36.4-46.3); Red Blood Count 3.35 M/uL (4.20-5.40); White Blood Count 10.74 K/ul (4.8-10.8)
[2024-05-02 07:27] LABS: BUN Creatinine Ratio 20.6 (10-20); Calcium 9.1 mg/dl (8.6-10.3); Creatinine Clr Calc Pharmacy 23.2 ml/min; Est GFR (Non-African American) 24.2 ml/min; Potassium 3.8 mmol/L (3.5-5.1)
--- NOTE | 2024-05-02 09:55 | Cardiology Progress Note ---
Date of Service May 02, 2024 Assessment & Plan (1) Acute on chronic HFrEF (heart failure with reduced ejection fraction): (2) Nonischemic cardiomyopathy: (3) Atrial fibrillation with rapid ventricular response: (4) Tachycardia-bradycardia syndrome: (5) Cardiac pacemaker: Plan Complex 78-year-old female with severe nonischemic cardiomyopathy admitted with acute decompensated systolic congestive heart failure about three weeks following reduction in oral diuretics due to acute on chronic renal dysfunction. Patient with persistent atrial fibrillation with a rapid ventricular response following discontinuation of digoxin in mid March. Patient chronically prescribed reduced dose Eliquis anticoagulation. Volume status improved following measures on presentation and admission. Heart rates remain uncontrolled with limited options - prior toxicity to amiodarone, LVEF 10-15%, stage IV CKD, borderline systolic blood pressure. Recommendations: Patient hemodynamically stable and no signs of volume overload but remains in atrial fibrillation with difficult to control rhythm. Patient n.p.o. for anticipated AV junction ablation bilateral reduction in medical therapy and improve symptoms. Patient agrees 04/30/2024 No acute change in clinical status though heart rate slightly slower. Planned repeat attempt at AV junction ablation in a.m. Would keep n.p.o. after midnight No adjustments in medications. No further IV diuretic Patient out of bed in chair 05/01/2024 Patient with longstanding difficulties with atrial fibrillation with poorly tolerated ventricular response rates despite multiple medical trials. Adverse reaction to amiodarone Patient to undergo AV junction ablation today with pacemaker in place 05/02/2024 Clinically improved with improved heart rate control following AV junction ablation. Normal pacemaker function with setting an 80 bpm Issues addressed as follows 1. Persistent atrial fibrillation with difficult to control ventricular response rates with poor tolerance: Patient underwent AV junction ablation successfully. Will continue metoprolol succinate at reduced dose of 25 mg/day, anticoagulation with apixaban 2.5 mg twice per day. Discontinue digoxin 2. Nonischemic cardiomyopathy: Clinically compensated on exam today. Would resume furosemide at 20 mg/day 3. Acute on chronic renal insufficiency improved. Will arrange cardiology follow-up 2 to 3 weeks time. Will need BMP 1 week I spent a total of 40 minutes on the date of service in preparation, delivery, and documentation of the care provided to this patient excluding any time spent in the performance of separately billed services. Admission and Anticipated Discharge Date Admission Date: April 28, 2024 Subjective Patient was seen and examined, chart, telemetry reviewed. No complaints Little recollection of the procedure yesterday. Telemetry reveals ventricular paced rhythm with successful AV junction ablation heart rate 80 (pacer setting) Review of Systems Review of Systems: All systems reviewed & are unremarkable except as noted in Subjective Physical Exam Constitutional: WD/WN, vitals as above no acute distress Eyes: PERRL, conjunctivae normal, anicteric sclerae Neck: trachea midline, no thyromegaly Respiratory: normal respiratory effort, lungs clear to auscultation Cardiovascular: Rate/Rhythm: regular rhythm (Ventricular paced) Vessels: no JVD Extremities: no edema Right femoral vein access sites healing well without significant hematoma Chest (Breasts): Chest: + pacemaker Gastrointestinal (Abdomen): normal bowel sounds, soft, nontender, no hepatosplenomegaly Skin: no rashes, warm and dry Results & Data Vital Signs (Past 12 Hours) Vital Signs Temp Pulse Pulse Resp BP BP Pulse Ox 05/02/24 07:30 36.3 C L 80 16 112/76 92 05/02/24 07:00 82 05/02/24 03:12 36.5 C 83 16 113/79 92 05/01/24 22:35 36.5 C 80 16 116/78 92 O2 Del Method 05/02/24 07:30 Room Air 05/02/24 07:00 05/02/24 03:12 Room Air 05/01/24 22:35 Room Air Laboratory Results Laboratory Results - last 24 hr 05/01/24 05/01/24 05/01/24 10:47 16:14 20:22 WBC RBC Hgb Hct MCV MCH MCHC RDW Std Deviation RDW Coeff of Etta Plt Count MPV Absolute Nucleated RBC Nucleated RBC % (auto) Sodium Potassium Chloride Carbon Dioxide Anion Gap BUN Creatinine Est Cr Clr Drug Dosing Est GFR ( Amer) Est GFR (Non-Af Amer) BUN/Creatinine Ratio Glucose POC Glucose 114 H 123 H 172 H Calcium 05/02/24 05/02/24 06:26 07:29 WBC 10.74 RBC 3.35 L Hgb 10.8 L Hct 34.6 L MCV 103.3 H MCH 32.2 MCHC 31.2 L RDW Std Deviation 65.8 H RDW Coeff of Etta 17.5 H Plt Count 312 MPV 10.9 Absolute Nucleated RBC 0.07 Nucleated RBC % (auto) 0.7 Sodium 140 Potassium 3.8 Chloride 105 Carbon Dioxide 25 Anion Gap 10 BUN 40 H Creatinine 1.94 H Est Cr Clr Drug Dosing 23.2 Est GFR ( Amer) 28.0 Est GFR (Non-Af Amer) 24.2 BUN/Creatinine Ratio 20.6 H Glucose 135 H POC Glucose 129 H Calcium 9.1
--- NOTE | 2024-05-02 11:49 | Discharge Summary ---
Date of Service May 02, 2024 Admission HPI Per Admitting Provider 78yo F with a PMH of nonischemic cardiomyopathy, EF 20-24% and grade 3 diastolic dysfunction on echo on 05/17/23, tachybradycardia syndrome s/p pacemaker, paroxysmal atrial fibrillation on Eliquis, CKD IV, prediabetes, HLD, anxiety, history of CVA, dementia, GERD, Generalized anxiety disorder, amiodarone toxicity lives at home with son being present during nighttime and has help during the daytime and ambulates with walker was brought in by her sister as patient getting very weak. She slept for long today. Poor appetite. Not feeling well. Feeling abdominal is bloated and weakness in the legs .In the ER patient her sugars somewhat high in 200s and checks x-ray showed CHF and tachycardia on monitor. Patient somewhat hard of hearing. But able to answer appropriately. Sister in the room helping with H&P. Patient says she has some cough bringing up phlegm. Has some shortness of breath. Denies any chest pain. Denies fevers. No headache. No runny nose or sore throat. Hard of hearing. Vision is okay. No nausea. No abdominal pain. Had an episode of diarrhea today. Micturating okay. Currently no swelling in the legs. Patient was recently in the hospital with weakness and poor appetite and possible pneumonia which was ruled out and found to have hypokalemia and hypomagnesia which were replaced and she did fine and was discharged. She followed with cardiology and outpatient labs showed creatinine of 2.9 and potassium of 5.9 and digoxin level was 1.2. Cardiology advised to hold the digoxin until further notice as per the sisters. And Lasix was changed to 20 mg daily and potassium supplement were stopped. And repeat labs on 04/13/2024 showed potassium of 4.2 and creatinine of 2.4 and and advised to follow current regimen and repeat labs in 10 to 14 days. Past medical history. As mentioned above past surgical history. Left knee arthroscopy. Carpal tunnel surgery. Colonoscopy. Excision of benign lesions trunk. Repair of ventral hernia. Status post pacemaker. Cholecystectomy. Social history. . No smoking. No alcohol use. No drug use. Family history. Father had arthritis. Mother had arthritis. Uterus cancer. Diabetes. Sister has breast cancer. Sister has diabetes hypertension. Sister has valvular heart disease. Sister had hepatitis C. Son had CAD in his 30s. Admission Exam Per Admitting Provider General- Not in distress. hard of hearing. Head- atraumatic Eyes- PERRL. ENT- oropharynx clear Neck- supple, no JVD. Lungs- clear to auscultation mild bibasilar crackles, no wheezing Heart- regular rhythm; tachycardia, no murmur, no gallop. Abdomen- normal bowel sounds, soft, nontender, no distension. Extremities- no pretibial edema, no erytehma seen. Neuro- alert, oriented PERRL,; no facial palsy; no dysarthria; moves extremities. Principal Diagnosis Atrial fibrillation with RVR, acute CHF exacerbation Discharge Exam General: awake, alert, no apparent distress, elderly white female, pleasantly confused, participates in discussion and follows commands Head: Normocephalic, atraumatic ENT: PERRL, EOMI, no pharyngeal exudate, mucous membranes moist Chest: Clear to auscultation, on room air, no adventitious breath sounds Cardiac: Irregularly irregular, heart rate in the 80s, few PVCs, no murmur, no JVD, normal peripheral pulses, good capillary refill Abdominal: NABS x 4 quadrants, soft, nondistended, nontender to palpation, no rebound or guarding Extremities: Normal inspection, no peripheral edema or erythema, calfs nontender to palpation Psych: Normal mood and affect Neuro: AAO to self, not time or date, no gross motor deficits as she is moving all extremities, speech is clear, no peripheral sensory deficits Discharge Data Allergies Allergy/AdvReac Type Severity Reaction Status Date / Time codeine Allergy Intermediate PSCHO Verified 03/29/24 23:06 COMPLICATIONS PER [facility] Consultations 04/27/24 23:22 ED Decision to Admit Stat 04/28/24 08:00 Consult Cardiology Routine Procedures Performed Operation Date: 05/01/24 12:00 Actual Procedures p AV Node Ablation - Ailyn Mcelroy DO XR chest 1V portable CLINICAL HISTORY: weakness TECHNIQUE: Single frontal radiograph of the chest was obtained. Comparison: Comparison is made to chest radiograph 03/29/2024 FINDINGS: An implanted pacemaker is seen. Cardiomegaly is noted. Prominence and cephalization of the vasculature is seen. No evidence of pleural effusion or pneumothorax. IMPRESSION: Cardiomegaly and mild pulmonary edema. ACT 112: Negative or not required by law. Electronically signed by: Rd Adams M.D. 04/28/2024 8:28 AM Exam(s): CT CHEST Without Contrast EXAM: CT Chest Without Intravenous Contrast CLINICAL HISTORY: Reason for exam: sob. chf vs pneumonia. TECHNIQUE: Axial computed tomography images of the chest without intravenous contrast. CTDI is 13.13 mGy and DLP is 378.07 mGy-cm. Automated exposure control was utilized for the study. A dose lowering technique was utilized adhering to the principles of ALARA. COMPARISON: 03/30/24 FINDINGS: Lungs: Mild pulmonary vascular congestion and interstitial pulmonary edema visualized. Pleural space: Unremarkable. No pneumothorax. No significant effusion. Heart: Heart is enlarged, unchanged. Mild coronary artery calcifications redemonstrated. No pericardial effusion. Bones/joints: Ankylosing spondylitis of the thoracic spine. No acute fracture. No dislocation. Soft tissues: Unremarkable. Vasculature: See above. Lymph nodes: Unremarkable. No enlarged lymph nodes. Tubes, lines and devices: Left-sided pacemaker, unchanged. IMPRESSION: Mild pulmonary vascular congestion and interstitial pulmonary edema visualized. Electronically signed by: Chadd Monreal MD 04/28/24 02:28 AM Ordered Studies 04/28/24 01:13 CT chest diagnostic wo con Urgent 04/29/24 09:28 CL Cath Imgs for PACS use only Stat 04/29/24 14:45 EP Lab Images for PACS ONCE 05/01/24 07:30 EP Lab Images for PACS ONCE Hospital Course (1) Acute on chronic HFrEF (heart failure with reduced ejection fraction): (2) Paroxysmal atrial fibrillation: (3) Acute kidney injury superimposed on chronic kidney disease: (4) Prolonged QT interval: Plan Acute on Chronic HFrEF H/O Nonischemic Cardiomyopathy - HTN HLD Paroxysmal Atrial Fibrillation Tachybrady Syndrome s/p Pacemaker Prolonged QTC -BNP 2254 on 04/27/24. -LVEF<15% on echo(04/28/24); reduced compared to previous echo 1 year ago (EF of 20-24% on echo performed 05/17/23) -Grade III diastolic dysfunction noted on echo from 04/2023; LV diastolic function unable to be assessed on echo from 04/2024. -Intially given diuretics, now discontinued per cards - Pacemaker interrogation on 04/27/24 demonstrated appropriate function, 8.6 years remaining longevity. - Patient has been in atrial fibrillation since 02/23/24 with heart rates trending up since early March. - Attempted but failed AV junction ablation 04/29 - repeat AV junction ablation 05/01 successful- atrial fibrillation s/p with rates in 80s overnight on 05/02 -Follow lytes, daily weights, strict I&O's - Continue LIEUTENANT COLONEL metoprolol succinate 100mg BID, eliquis for anticoagulation, plavix, statin - Amiodarone was previously discontinued due to toxicity., Digoxin held d/t levels = 1.2; digoxin level < 0.3 on 04/27. Progressive Weakness Cough w/ Sputum Production - Does not appear to be respiratory: CXR neg, Chest CT revealed mild pulmonary vascular congestion and interstitial pulmonary edema. No pna, resp RVP negt - WBC trended down - Initial UA and UCx grew out 3 types orangisms, repeat culture pending - continue ceftriaxone and doxycycline (started 04/28). Off now. - PT/OT - Lactate trended down likely due to acute on chronic systolic HF Hyperglycemia New Onset DM II - SSI regimen initiated; BSG 121 this AM - Glycemic pharmacy assisting with SSI changes PRN. Will need diabetic education after discharge per PCP. - Hgb A1c 7.2 on 04/28/24; continue to follow BSG levels. JUNIOR on CKD Stage IV - Baseline creatinine ~2; presented with creatinine of 2.5., slowly improving - Lasix was held through hospital stay, Cr of 1.94 on day of discharge. Generalized Anxiety Disorder ([place]) -Pt on Lexapro LIEUTENANT COLONEL, holding for now 2/2 prolonged QTC. Ok to resume on dc. Hypothyroidism - Continue LIEUTENANT COLONEL levothyroxine, TSH 1.848 Other Chronic Medical Conditions: hx MCA CVA GERD Gout - Chronic, stable, cont home meds DVT ppx: teds, scds, eliquis 2.5 mg BID Lines: 1 PIV FEN/GI:Cardiac, DM diet CODE: DNR/DNI Dispo: From home, lives at home with her son. Patient does have an at-home personal machine filler from [employer] helping her out 7 days/week from ~9am-5pm. Discharge today Total Time Total Time Spent Total Time Spent (In Minutes): 35 Discharge Plan Discharge Items Patient Disposition: Home - Self-Care Reason For Visit: ACUTE CHF Discharge Diagnosis: Atrial Fibrillation with Rapid ventricular response, acute congestive heart failure (CHF) exacerbation Condition on Discharge: Good Activity: Resume your previous activity Lifting: Gradually increase as tolerated Bathing: No limitations Exercise/Sports: Rest today and Gradually increase as tolerated Driving/Machine Use: Do not drive Weightbearing: Full weightbearing Weightbearing Comment: With ambulatory assitive device such as walker Non-emergency contact: Primary Care Provider and Spiritual Minister Call non-emergency contact if: you have any medication questions, your symptoms worsen and your temperature is above 101 Follow-up/Referrals: Ruby Blandon CRNP [Nurse Practitioner] - (Date & Time 06/18/2024 2:00 PM Provider Ruby Blandon CRNP Department Cardiology, [facility] ) Brian Anne MD [Physician] - (The Cardiology office will contact you for a follow up appointment.) Kasandra Antunez DO [Primary Care Provider] - (Date & Time 05/07/2024 3:00 PM Provider Kasandra Antunez DO Department [facility] ) Diet: Heart Healthy and Low Sodium (2gm) Addtl Attending Provider Instructions: You were admitted to [facility] due to atrial fibrillation with rapid ventricular response and diagnosed with the same, as well as acute CHF exacerbation. During your stay here you were treated with supportive care, medications and underwent cardiac ablation on 04/29 which was unsuccessful, and then again on 05/01 which was successful, and your symptoms improved. Cardiology was involved during your stay here and assisted with procedure Imaging studies which were completed include pacemaker interrogation , and were normal. Medications: Continue taking you medications as prescribed. Metoprolol succinate dose has been reduced to 25 mg daily. Please roller picker new prescription for this at your pharmacy. STOP digoxin, do not resume this medicine. Appointments: Follow up with PCP within 1 week, an appointment has been requested for you. Cardiology within 2-3 weeks, please follow up with their office for appointment. Pending Studies at Discharge: No Stand-Alone Forms: My [facility] G2 Crowd, Smoking Cessation Medications and DC Order Prescriptions: New metoprolol succinate 25 mg Tablet Extended Release 24 Hr 25 mg PO QAM 30 Days Qty: 30 0RF Continued clopidogrel 75 mg Tablet 75 mg PO QAM Qty: 30 0RF allopurinol 100 mg tablet 100 mg PO QAM furosemide 20 mg tablet 20 mg PO DAILY Rx Instructions: MAY TAKE ADDITIONAL DOSE IF NEEDED PER [facility] levothyroxine 88 mcg tablet 88 mcg PO QAM albuterol sulfate [Ventolin HFA] 90 mcg/actuation HFA aerosol inhaler 2 puff INHALATION QID ondansetron 4 mg tablet,disintegrating 4 mg translingual Q8 PRN (Reason: n/v) nitroglycerin [Nitrostat] 0.4 mg Tablet, Sublingual 0.4 mg sublingual UD PRN (Reason: chest pain) Qty: 10 0RF Rx Instructions: place under tongue 0.4mg every 5 minutes as needed for pain,chest famotidine 20 mg Tablet 20 mg PO AMHS atorvastatin 40 mg tablet 40 mg PO HS calcitriol 0.5 mcg capsule 0.5 mcg PO QAM Eliquis 2.5 mg tablet 2.5 mg PO BID escitalopram oxalate 20 mg tablet 20 mg PO QAM isosorbide mononitrate 30 mg tablet extended release 24 hr 30 mg PO QAM docusate sodium 100 mg capsule 100 mg PO BID magnesium oxide 400 mg (241.3 mg magnesium) tablet 400 mg PO DAILY Qty: 30 0RF Discontinued digoxin [Digitek] 125 mcg (0.125 mg) Tablet 0.125 mg PO MoWeFr@1600 Qty: 12 0RF metoprolol succinate 100 mg tablet extended release 24 hr 100 mg PO AMHS Discharge Orders: Discharge Order (Routine); Ordered 05/02/24 Ordered By: Delmy Hutchison Admission Data Admit Date/Time: 04/28/24 00:36 Attending Provider: Zach Snyder Admit Provider: Kranthi Bear Primary Care Provider: Kasandra Antunez Other Providers: Kranthi Bear; Ruby Blandon; Dimitri Villalpando; Brian Anne; Yobany La; Martin Blanchard; Roberto Winter; Maggie Sepulveda; Ailyn Mcelroy; Saray Diane; Ruby Diaz; Carlos Almodovar; Arron Montez; Reina Pisano; Kanika Terry; Alicia Robin; Mark Sherman; Jorge Astorga; Paige Roche Other Interventions: Discharge Summary Assessment (RN) Last Done: 05/02/24 12:32 Supervising Physician Co-Signing Physician Notes Patient seen and examined No complaints today Per Cardiology, AVN ablation was incomplete 04/29 and was done 05/01. Updated sisters at bedside Pt feels better, pt ok to dc from cardio pov. Given cough w/ sputum production, pt was started on atb in line of pna, chest imaging neg for pna, s/p 5 day course. A1c 7.2, lifestyle modification, f/u w/ PCP for group home monitoring. Agree with findings and plans as detailed by Advanced Provider and take full responsibility
--- NOTE | 2024-05-15 21:05 | Operative Report ---
Post Operative Report DATE OF PROCEDURE: 04/29/2024 PREOPERATIVE DIAGNOSIS: Atrial fibrillation with RVR POSTOPERATIVE DIAGNOSIS: same PROCEDURES PERFORMED: ultrasound guidance venous access, attempted radiofrequency ablation of the AV junction under fluoroscopic guidance along with dual ppm interrogation and reprogramming SURGEON: Ailyn Mcelroy DO. COMPRESSOR STATION CHIEF ENGINEER: None. ANESTHESIA: Monitored conscious sedation administered under my supervision by Christina David Start time 14:59 and end time 16:28. A total of 1 mg of Versed and 75 mcg of fentanyl. INTRAVENOUS FLUIDS: 200mL. Additional Medications: 25mg benadyl BLOOD LOSS: 5 mL URINE OUTPUT: Not applicable. SPECIMENS: None. FINDINGS: See below. DRAINS: None. COMPLICATIONS: None. CONDITION: Stable. INDICATIONS: This is a 78-year-old female who has a past medical history Acute on chronic HFrEF (heart failure with reduced ejection fraction)-NYHA class III, NICM EF 20%, Persistent probably becoming permanent AF with RVR despite high doses of AVN blockers, TBS s/p ppm. Pt was admitted with acute HF and AF with RVR-she was recommended an AVN ablation prior to hospital discharge. CONSENT: Consent was obtained prior to the patient going into the electrophysiology lab. The patient was informed of risks, benefits, and alternatives to the procedure. Risks include, but not limited to sudden cardiac , cardiac arrhythmias, cerebrovascular accident, myocardial infarction, injury to the blood vessels, chamber of the heart, or the [place] electrical system where she would need a permanent pacemaker, bleeding, and infection. The patient understood these risks and agreed to the procedure as planned. Informed consent was obtained. DESCRIPTION OF PROCEDURE: The patient was brought into the electrophysiology lab in a fasting state. She was connected to continuous cardiac monitoring. A time-out was performed to ensure the patient identity and procedure correctly. She was prepped and draped over bilateral groins in normal surgical standard fashion. Monitored conscious sedation was given throughout the procedure for the patient's comfort level. [place] precautions were maintained throughout the procedure. A 10 mL of 1% lidocaine-bupivacaine mixture were given in the right groin for lo stefany anesthesia. Then, using the modified Seldinger technique under ultrasound guidance, venous access was obtained in the following manner. The right femoral vein had an 8-Turkish sheath followed by a Non-irrigated 8mm Biosense Epic! curve ablation catheter. The dual pacemaker was interrogated and reprogrammed for the ablation-see below. There was a lot of artifact and noise on the ablation distal channel so we eventually tried switching out cables and even a new ablation catheter a DF curved but the noise persisted and then when I tried to cypher through the noise to an area I estimated where the HIS area is and came on ablation but there were times where the energy would go to 70 mae and then quickly come down to 0 mae After a while of trouble shooting I ultimately decided to end the procedure and bring the patient back with cardio mapping to ensure better function of equipment and mapping of the patient's ventricle as it was rotated making landmarks and images on fluoroscopy misleading. The catheter was removed from the body and the sheath was pulled and manual compression was used to establish hemostasis. Dual ppm Interrogation and reprogramming: Pre ablation: RA: Fib waves 0.3mV; impedance 342 ohms, no threshold testing pt in AF Left bundle: >20mV; impedance 342ohms; 0.750V @ 0.4ms Reprogrammed: DOO 30 Post Ablation: RA lead: fib waves 1mV; impedance 342 ohms; no threshold testing pt in AF Left bundle: R waves > 20 mV; [id number] ohms; 1V @ 0.4ms Reprogramming: MVPR RV amplitude 4V; RV capture management to off IMPRESSION: 1. Attempted (unable to perform procedure due to equipment malfunction) AV junction radiofrequency ablation with reprogramming of dual chamber ppm secondary to AF with RVR and CHF-NYHA Class III. PLAN: transfer back to telemetry; bed rest for 2 hours; will repeat the procedure in 2 days with cardio mapping rep
--- NOTE | 2024-05-15 21:31 | Operative Report ---
Post Operative Report DATE OF PROCEDURE: PREOPERATIVE DIAGNOSIS: Atrial fibrillation with RVR POSTOPERATIVE DIAGNOSIS: same plus complete heart block PROCEDURES PERFORMED: ultrasound guidance venous access, radiofrequency ablation of the AV junction, 3D His bundle mapping as well as 3D mapping of C/S Os under fluoroscopic guidance along with dual ppm interrogation and reprogramming SURGEON: Ailyn Mcelroy DO. QI SPECIALIST: None. ANESTHESIA: Monitored conscious sedation administered under my supervision by Adwoa. Start time 13:16 and end time 14:26. A total of 1 mg of Versed and 25 mcg of fentanyl. Additional Medication: 25mg benadryl INTRAVENOUS FLUIDS: 300mL. BLOOD LOSS: 5 mL URINE OUTPUT: Not applicable. SPECIMENS: None. FINDINGS: See below. DRAINS: None. COMPLICATIONS: None. CONDITION: Stable. INDICATIONS: This is a 78-year-old female who has a past medical history Acute on chronic HFrEF (heart failure with reduced ejection fraction)-NYHA class III, NICM EF 20%, Persistent probably becoming permanent AF with RVR despite high doses of AVN blockers, TBS s/p ppm. Pt was admitted with acute HF and AF with RVR-she was recommended an AVN ablation prior to hospital discharge. Procedure was attempted on 04/29 but due to equipment problems it was not able to be completed so pt returns today for the procedure. CONSENT: Consent was obtained prior to the patient going into the electrophysiology lab. The patient was informed of risks, benefits, and alternatives to the procedure. Risks include, but not limited to sudden cardiac , cardiac arrhythmias, cerebrovascular accident, myocardial infarction, injury to the blood vessels, chamber of the heart, or the [place] electrical system where she would need a permanent pacemaker, bleeding, and infection. The patient understood these risks and agreed to the procedure as planned. Informed consent was obtained. DESCRIPTION OF PROCEDURE: The patient was brought into the electrophysiology lab in a fasting state. She was connected to continuous cardiac monitoring. A time-out was performed to ensure the patient identity and procedure correctly. She was prepped and draped over bilateral groins in normal surgical standard fashion. Monitored conscious sedation was given throughout the procedure for the patient's comfort level. [place] precautions were maintained throughout the procedure. A 10 mL of 1% lidocaine-bupivacaine mixture were given in the right groin for local anesthesia. Then, using the modified Seldinger technique under ultrasound guidance, venous access was obtained in the following manner. The right femoral vein had an 8-[place] sheath followed by a Non-irrigated 8mm Biosense [employer] ablation catheter. The dual ppm was interrogated and reprogrammed for the ablation-see below. The HIS bundle was 3D mapped along with the C/S OS; HV 80ms when the camera was in GOMEZ 30. Then radiofrequency ablation was performed at 70 [place]. The patient quickly went into complete heart block with ventricular pacing. Then re-ensurace fuentes were given totaling about 3 minutes. After a post ablation waiting time; we confirmed the patient was still in complete heart block. The dual ppm was interrogated and reprogrammed post ablation-see below. The catheter was removed from the body and the sheath was pulled and manual compression was used to establish hemostasis. Dual ppm Interrogation and reprogramming: Pre ablation: RA: Fib waves 0.8mV; impedance 437 ohms; no threshold testing pt in AF Left bundle: R waves 5mV; impedance 494 ohms; 1.25V @ 0.4ms Reprogrammed: DOO 30 Post Ablation: RA: Fib waves 0.8mV; impedance 399 ohms; no threshold testing pt in AF Left bundle: R waves (PVCS) 4.8mV; impedance 494 ohms; 1.25V @ 0.4ms Reprogramming: VVIR 90 IMPRESSION:Successful ultrasound guidance venous access, radiofrequency ablation of the AV junction, 3D His bundle mapping as well as 3D mapping of C/S Os under fluoroscopic guidance along with dual ppm interrogation and reprogramming secondary to AF with RVR and CHF with reduced NYHA Class III PLAN: Monitor the patient post-procedure. No heavy lifting or squatting for 1 week.Decrease AVN blockers and transfer back to telemetry. The patient will follow up in the office in 1 month's time.
== END 2024-05-02 12:58 | disposition home health service (06) | DRG 273 ==
LOC: ED 21:26 → SUATTDRO 04-28 00:36 → 2S 04-28 00:36

== ENCOUNTER 2024-05-23 10:07 | Inpatient (IN) ==
[2024-05-23 11:12] LABS: Basophils # (auto) 0.06 K/uL (0.00-0.20); Basophils % (auto) 0.6 %; Eosinophils # (auto) 0.08 K/uL (0.00-0.50); Eosinophils % (auto) 0.8 %; Hematocrit (blood only) 35.6 % (37.0-47.0); Hemoglobin 11.3 g/dl (12.0-16.0); Immature Granulocytes # (auto) 0.05 K/uL (0.01-0.20); Immature Granulocytes % (auto) 0.5 %; Lymphocytes # (auto) 2.46 K/uL (1.20-3.40); Lymphocytes % (auto) 25.1 %; Mean Corpuscular Hgb Conc 31.7 g/dL (32.0-36.0); Mean Corpuscular Volume 100.8 fL (80.0-100.0); Mean Platelet Volume 10.8 fL (9.4-12.4); Monocytes # (auto) 0.97 K/uL (0.11-0.59); Monocytes % (auto) 9.9 %; Neutrophils # (auto) 6.17 K/uL (1.40-6.50); Neutrophils % (auto) 63.1 %; Platelet Count 316 K/uL (130-400); RDW Coefficient of Variation 17.2 % (11.5-14.5); RDW Standard Deviation 64.1 fL (36.4-46.3); Red Blood Count 3.53 M/uL (4.20-5.40); White Blood Count 9.79 K/ul (4.8-10.8)
--- NOTE | 2024-05-23 11:12 | Emergency Department Note ---
Impression & Plan Acute confusion, Dizziness ED Provider Note HISTORY OF PRESENT ILLNESS: Patient is a 78-year-old female presenting with vomiting, dizziness and confusion. Patient reports that she has been having dizziness since last night. However, when asked to describe the dizziness the patient is unable to do so and just reports "I am dizzy." She states that she tried to get up this morning and felt very dizzy but was able to ambulate to her recliner and her molding sander called 911. [employer] reports that the patient seemed very short of breath and winded walking from her bed to the recliner. [employer] reports the patient seems very confused and is not her normal baseline. Reports the patient was normal yesterday. Patient denies any chest pain. Denies any abdominal pain, but reports her abdomen feels bloated. She reports vomiting but denies any diarrhea. She states her last bowel movement was 2 days ago. She denies any dysuria or hematuria. ROS: as above PHYSICAL EXAM: Constitutional: Patient appears in no acute distress. HENT: Head: Normocephalic and atraumatic. Eyes: EOMI, PERRL Mouth/Throat: Mucous membranes moist. Neck: Trachea midline. Neck supple. Cardiovascular: Paced rhythm. No murmurs, rubs or gallops. Intact distal pulses. Pulmonary/Chest: No respiratory distress. Breath sounds clear and equal bilaterally. No wheezes or rales. Abdominal: Abdomen soft, no tenderness, rebound or guarding. Musculoskeletal: No edema, tenderness or deformity noted. Skin: Warm and dry. No rash, erythema, pallor or cyanosis Psychiatric: Appropriate mood and affect for situation. Neurological: Alert and keenly responsive. Facies symmetric. Able to raise eyebrows, close eyes, smile, puff mouth, stick out tongue, move tongue left and right and raise palate symmetrically. Able to shrug shoulders. PERRLA. SILT to forehead below eye and at jawline. Can hear soft noise bilaterally. Strength 5/5 in bilateral upper and lower extremities. SILT throughout bilateral upper and lower extremities. MDM: - Vitals signs showed hypertension - History obtained via patient and patient's molding sander. History as above. - Chronic conditions affecting care: Afib; HLD; DM-2; hx of MCA stroke; CHF - Differential diagnoses include, but are not limited to: CVA; intracranial hemorrhage; ACS; pneumonia; viral syndrome; UTI - Order placed for continuous cardiac monitoring. At this time, monitor showed rate of 92 bpm with normal sinus rhythm, per my interpretation. - External medical records reviewed. Discharge summary dated 05/02/2024 was reviewed. Patient was admitted at that time for acute CHF exacerbation and A- fib with RVR. - EKG interpreted by myself showed ventricular paced rhythm. Rate 91 bpm - Laboratory workup interpreted by myself showed normal WBC; normal PT/INR; stable electrolytes; normal lactate; hyperglycemia (glucose 190); normal troponin - CT head wo contrast negative for acute pathology - CT abdomen/pelvis with IV contrast for acute pathology other than a thickened endometrium. - UA negative for infection - CXR negative for pneumonia, per my interpretation - Patient given 1L NS and 4 mg IV zofran in ER for symptoms. - Discussed results with the patient and her caretakers at bedside. They expressed concern about potentially being discharged, given patient's persistent confusion from her baseline and her unsteadiness. Will admit to hospital service for further evaluation. - Discussion was had with nurse outreach case manager about patient's case and need for admission - Hospitalist consulted for admission - Patient admitted to [facility] service for further evaluation and management. ASSESSMENT AND PLAN: Diagnosis: dizziness; acute confusion Plan: admit Past Med/Surg History Problem List (Updated 05/23/24 @ 15:41 by Alaina Chamberlain MD) Dizziness (Acute) Acute confusion (Acute) Prolonged QT interval Acute kidney injury superimposed on chronic kidney disease Defibrillator discharge (Acute) Weakness (Acute) CHF (congestive heart failure) (Acute) Acute hypokalemia (Acute) Weakness (Acute) Hypomagnesemia (Acute) Pneumonia Cardiac pacemaker Nonischemic cardiomyopathy Atrial fibrillation with rapid ventricular response (Acute) Dyspnea (Acute) Hypoxia (Acute) Pulmonary edema (Acute) Pleural effusion Acute on chronic HFrEF (heart failure with reduced ejection fraction) Aspiration pneumonia Pulmonary edema (Acute) Acute exacerbation of CHF (congestive heart failure) (Acute) Acute respiratory failure with hypoxia (Acute) CKD (chronic kidney disease), stage IV Tachycardia-bradycardia syndrome Paroxysmal atrial fibrillation Pneumonia (Acute) Hypoxia (Acute) Intractable nausea and vomiting (Acute) Paroxysmal atrial fibrillation with RVR (Acute) Atrial fibrillation with RVR Generalized weakness History of right MCA stroke Dyslipidemia Type 2 diabetes mellitus HTN (hypertension) (Chronic) Pain, dental (Acute) Atrial fibrillation (Chronic) Medical History Pneumonia Acute systolic (congestive) heart failure LBBB (left bundle branch block) History of adenomatous polyp of colon Degenerative disc disease, cervical Hearing loss MELQUIADES (generalized anxiety disorder) GERD without esophagitis Vitamin D deficiency Hypertensive cardiomegaly Surgical History History of D&C History of excision of lesion Back - Dr. Tucker History of carpal tunnel surgery History of arthroplasty of left knee Family History Other Diabetes Heart disease Social History Smoking Status: Never smoker Second Hand Exposure: No; Do You Dip or Chew Tobacco: No; Hx Alcohol Use: No Hx Substance Use: No Preferred Language: Albanian Communication Ability: Effective Hearing Ability: Hard of Hearing Container [employer] Required: No Beliefs That Will Affect Care: None marital status: / Current Living Situation: Family Current Living Situation Comment: son Feels Safe at Home: Yes Assistive Devices: Walker and Wheelchair Allergies Allergies Allergy/AdvReac Type Severity Reaction Status Date / Time codeine Allergy Intermediate PSCHO Verified 05/23/24 15:30 COMPLICATIONS PER [facility] Home Meds Home Medications Medication Instructions Recorded Confirmed allopurinol 100 mg tablet 100 mg PO QAM 06/11/19 05/23/24 furosemide 20 mg tablet 20 mg PO DAILY 09/18/22 05/23/24 atorvastatin 40 mg tablet 40 mg PO HS 01/06/23 05/23/24 famotidine 20 mg tablet 20 mg PO AMHS 01/06/23 05/23/24 albuterol sulfate 90 mcg/actuation 2 puff inhalation QID 03/28/23 05/23/24 aerosol inhaler (Ventolin HFA) levothyroxine 88 mcg tablet 88 mcg PO QAM 03/28/23 05/23/24 ondansetron 4 mg disintegrating 4 mg translingual Q8 PRN n/v 03/28/23 05/23/24 tablet apixaban 2.5 mg tablet (Eliquis) 2.5 mg PO BID 02/29/24 05/23/24 calcitriol 0.5 mcg capsule 0.5 mcg PO QAM 02/29/24 05/23/24 docusate sodium 100 mg capsule 100 mg PO BID 03/29/24 05/23/24 isosorbide mononitrate 30 mg 30 mg PO QAM 03/29/24 05/23/24 tablet,extended release 24 hr escitalopram oxalate 20 mg tablet 20 mg PO QAM 04/27/24 05/23/24 Previous Rx's Medication Instructions Recorded clopidogrel 75 mg tablet 75 mg PO QAM #30 tabs 02/24/20 nitroglycerin 0.4 mg sublingual 0.4 mg sublingual UD PRN chest 05/11/22 tablet (Nitrostat) pain #10 tabs magnesium oxide 400 mg (241.3 mg 400 mg PO DAILY #30 tabs 03/31/24 magnesium) tablet metoprolol succinate 25 mg 25 mg PO QAM 30 days #30 tabs 05/02/24 tablet,extended release 24 hr Results & Data (ED) Vital Signs Vital Signs - 24 hr 05/23/24 10:10 05/23/24 10:10 05/23/24 10:22 Temperature 36.8 C Temperature Source Oral Pulse Rate 98 H 102 H Pulse Rate from SpO2 Sensor Pulse Rhythm Regular Respiratory Rate 16 20 Blood Pressure 121/101 H Blood Pressure Mean 107 Pulse Oximetry 97 98 Oxygen Delivery Method Room Air Room Air Room Air Oxygen Flow Rate 0 Sepsis Recent Fever Within 48 Hours No Sepsis New/Unexplained Change in Mental Status N/A Sepsis Action Taken by Nursing No Action Required Pulse Oximetry Post Tiitration 96 05/23/24 10:25 05/23/24 10:29 05/23/24 12:36 Temperature Temperature Source Pulse Rate 90 89 78 Pulse Rate from SpO2 Sensor Pulse Rhythm Respiratory Rate 21 19 Blood Pressure 121/75 120/75 Blood Pressure Mean 94 90 Pulse Oximetry 97 97 Oxygen Delivery Method Oxygen Flow Rate Sepsis Recent Fever Within 48 Hours Sepsis New/Unexplained Change in Mental Status Sepsis Action Taken by Nursing Pulse Oximetry Post Tiitration 05/23/24 14:33 05/23/24 14:39 05/23/24 15:05 Temperature Temperature Source Pulse Rate 82 86 92 H Pulse Rate from SpO2 Sensor 87 86 Pulse Rhythm Respiratory Rate 16 22 Blood Pressure 127/78 127/78 Blood Pressure Mean 94 94 Pulse Oximetry 96 97 Oxygen Delivery Method Oxygen Flow Rate Sepsis Recent Fever Within 48 Hours Sepsis New/Unexplained Change in Mental Status Sepsis Action Taken by Nursing Pulse Oximetry Post Tiitration Laboratory Data 05/23/24 10:42 05/23/24 10:42 Lab Results 05/23/24 05/23/24 05/23/24 Range/Units 10:42 11:34 11:36 WBC 9.79 (4.8-10.8) K/ul RBC 3.53 L (4.20-5.40) M/uL Hgb 11.3 L (12.0-16.0) g/dl Hct 35.6 L (37.0-47.0) % MCV 100.8 H (80.0-100.0) fL MCH 32.0 (25.0-34.0) pg MCHC 31.7 L (32.0-36.0) g/dL RDW Std Deviation 64.1 H (36.4-46.3) fL RDW Coeff of Etta 17.2 H (11.5-14.5) % Plt Count 316 (130-400) K/uL MPV 10.8 (9.4-12.4) fL Immature Gran % (Auto) 0.5 % Neut % (Auto) 63.1 % Lymph % (Auto) 25.1 % Mccreary % (Auto) 9.9 % Eos % (Auto) 0.8 % Baso % (Auto) 0.6 % Neut # (Auto) 6.17 (1.40-6.50) K/uL Lymph # (Auto) 2.46 (1.20-3.40) K/uL Mccreary # (Auto) 0.97 H (0.11-0.59) K/uL Eos # (Auto) 0.08 (0.00-0.50) K/uL Baso # (Auto) 0.06 (0.00-0.20) K/uL Immature Gran # (Auto) 0.05 (0.01-0.20) K/uL PT 11.5 (9.0-12.0) Seconds INR 1.1 (0.9-1.1) Sodium 141 (136-145) mmol/L Potassium 4.0 (3.5-5.1) mmol/L Chloride 105 (98-107) mmol/L Carbon Dioxide 25 (21-32) mmol/L Anion Gap 11 (3-11) BUN 29 H (6-23) mg/dl Creatinine 1.85 H (0.6-1.2) mg/dl Est Cr Clr Drug Dosing 24.3 ml/min Est GFR ( Amer) 29.7 ml/min Est GFR (Non-Af Amer) 25.6 ml/min BUN/Creatinine Ratio 15.7 (10-20) Glucose 190 H (70-99(Fasting)) mg/dl Lactate 1.3 (0.4-2.0) mmol/L Calcium 9.6 (8.6-10.3) mg/dl Magnesium 1.8 (1.7-2.4) mg/dl Total Bilirubin 1.0 (0.2-1.0) mg/dl AST 13 (13-39) U/L ALT 8 (7-52) U/L Alkaline Phosphatase 137 H (34-104) U/L Troponin I High Sens 11.8 (0-14) pg/ml Total Protein 7.1 (6.0-8.3) gm/dl Albumin 4.2 (3.4-5.0) gm/dl Globulin 2.9 (2.5-4.0) gm/dl Albumin/Globulin Ratio 1.4 (0.9-2) Urine Color Urine Appearance (Clear) Urine pH (4.5-7.5) Ur Specific Basalt (1.000-1.030) Urine Protein (Negative) Urine Glucose (UA) (Negative) Urine Ketones (Negative) Urine Blood (Negative) Urine Nitrite (Negative) Urine Bilirubin (Negative) Urine Urobilinogen (Negative) Ur Leukocyte Esterase (Negative) Urine WBC (Auto) (0-5) /hpf Urine RBC (Auto) (0-2) /hpf U Hyaline Cast (Auto) (0-2) /lpf U Epithel Cells (Auto) (0-2) /hpf Urine Bacteria (Auto) (None Seen) 05/23/24 Range/Units 12:25 WBC (4.8-10.8) K/ul RBC (4.20-5.40) M/uL Hgb (12.0-16.0) g/dl Hct (37.0-47.0) % MCV (80.0-100.0) fL MCH (25.0-34.0) pg MCHC (32.0-36.0) g/dL RDW Std Deviation (36.4-46.3) fL RDW Coeff of Etta (11.5-14.5) % Plt Count (130-400) K/uL MPV (9.4-12.4) fL Immature Gran % (Auto) % Neut % (Auto) % Lymph % (Auto) % Mccreary % (Auto) % Eos % (Auto) % Baso % (Auto) % Neut # (Auto) (1.40-6.50) K/uL Lymph # (Auto) (1.20-3.40) K/uL Mccreary # (Auto) (0.11-0.59) K/uL Eos # (Auto) (0.00-0.50) K/uL Baso # (Auto) (0.00-0.20) K/uL Immature Gran # (Auto) (0.01-0.20) K/uL PT (9.0-12.0) Seconds INR (0.9-1.1) Sodium (136-145) mmol/L Potassium (3.5-5.1) mmol/L Chloride (98-107) mmol/L Carbon Dioxide (21-32) mmol/L Anion Gap (3-11) BUN (6-23) mg/dl Creatinine (0.6-1.2) mg/dl Est Cr Clr Drug Dosing ml/min Est GFR ( Amer) ml/min Est GFR (Non-Af Amer) ml/min BUN/Creatinine Ratio (10-20) Glucose (70-99(Fasting)) mg/dl Lactate (0.4-2.0) mmol/L Calcium (8.6-10.3) mg/dl Magnesium (1.7-2.4) mg/dl Total Bilirubin (0.2-1.0) mg/dl AST (13-39) U/L ALT (7-52) U/L Alkaline Phosphatase (34-104) U/L Troponin I High Sens (0-14) pg/ml Total Protein (6.0-8.3) gm/dl Albumin (3.4-5.0) gm/dl Globulin (2.5-4.0) gm/dl Albumin/Globulin Ratio (0.9-2) Urine Color Yellow Urine Appearance Cloudy A (Clear) Urine pH 5.5 (4.5-7.5) Ur Specific Basalt 1.014 (1.000-1.030) Urine Protein Trace H (Negative) Urine Glucose (UA) Negative (Negative) Urine Ketones Negative (Negative) Urine Blood Negative (Negative) Urine Nitrite Negative (Negative) Urine Bilirubin Negative (Negative) Urine Urobilinogen Negative (Negative) Ur Leukocyte Esterase Trace H (Negative) Urine WBC (Auto) 6-10 H (0-5) /hpf Urine RBC (Auto) 0-2 (0-2) /hpf U Hyaline Cast (Auto) 6-10 H (0-2) /lpf U Epithel Cells (Auto) 11-20 H (0-2) /hpf Urine Bacteria (Auto) None Seen (None Seen) Administered Medications Discontinued Medications Sodium Chloride (Nss) 1,000 mls @ 999 mls/hr IV .Q1H1M ONE Stop: 05/23/24 12:10 Last Infusion: 05/23/24 12:26 Dose: Infused Documented By: Admin: 05/23/24 11:17 Dose: 999 mls/hr Documented By: CHAGO Ioversol (Optiray 320 100ml) 70 ml IV ONCE ONE Stop: 05/23/24 13:22 Last Admin: 05/23/24 13:22 Dose: 70 ml Documented By: AMRIT Ondansetron HCl (Ondansetron Inj 2 Mg/Ml 2 Ml Vial) 4 mg IV NOW STA Stop: 05/23/24 11:11 Last Admin: 05/23/24 11:17 Dose: 4 mg Documented By: CHAGO Ondansetron HCl (Ondansetron Inj 2 Mg/Ml 2 Ml Vial) 4 mg IV NOW STA Stop: 05/23/24 11:13 Last Admin: 05/23/24 11:34 Dose: Not Given Documented By: CHAGO Imaging Data Radiologist's Impression: Abdomen/Pelvis CT 05/23/24 11:[address] WITH IV CONTRAST CT DOSE: 1730.41 mGy.cm HISTORY: abdominal pain; N/V TECHNIQUE: Multiaxial CT images of the abdomen and pelvis were performed following the use of intravenous contrast. A dose lowering technique was utilized adhering to the principles of ALARA. COMPARISON STUDY: Abdomen and pelvis CT 10/23/2021. FINDINGS: There is air trapping and dependent changes again noted at the lung bases. No pneumoperitoneum. No pneumatosis. No acute fractures. The heart remains enlarged. Pacemaker wires are partially visualized. Cholecystectomy. The liver, spleen, adrenal glands, and pancreas are unremarkable. Multiple bilateral renal hypodense lesions. These likely represent cysts. The largest on the right measures 4.3 cm. No hydronephrosis. The main portal vein is patent. Moderate calcified plaque within the normal caliber abdominal aorta. No pelvic lymphadenopathy or pelvic free fluid. The bladder is unremarkable. Mild thickening of the endometrium measuring 9 mm. Colonic diverticulosis. No evidence for acute diverticulitis. Normal appendix. No bowel wall thickening or obstruction. IMPRESSION: 1. No bowel wall thickening or obstruction. 2. Normal appendix. 3. Colonic diverticulosis. No evidence for acute diverticulitis. 4. Mild thickening of the endometrium measuring 9 mm. This is considered pathologic in a postmenopausal female. Follow-up nonemergent gynecologic consultation recommended. ACT 112: Negative or not required by law. Electronically signed by: Alex Rouse M.D. 05/23/2024 2:27 PM Chest X-Ray 05/23/24 11:09 XR chest 1V portable HISTORY: dizziness COMPARISON: Chest 04/27/2024. FINDINGS: No pneumothorax. No pleural effusions. The cardiac silhouette remains enlarged. There is left-sided dual-chamber pacemaker. Mild interstitial thickening at the lung bases which is likely chronic. No new focal lung consolidations to suggest a pneumonia. There is mild central pulmonary vascular congestion without overt edema. No acute fractures. IMPRESSION: Cardiomegaly and mild congestive change. This is similar to the prior study. ACT 112: Negative or not required by law. Electronically signed by: Alex Rouse M.D. 05/23/2024 11:[address] 05/23/24 11:09 CT head/brain wo con CLINICAL HISTORY: 78 years-old Female with confusion. Acutely altered mental status TECHNIQUE: Multiple axial CT images of the head were obtained without contrast. A dose lowering technique was utilized adhering to the principles of ALARA. COMPARISON: 03/29/2024, 01/12/2024 FINDINGS: No acute intracranial hemorrhage, midline shift or mass effect is present. The ventricular system is stable. White matter hypodensities are similar to prior exam and favor small vessel disease. A focus of encephalomalacia within the right frontal lobe suggests an old infarct. This is unchanged. A small subcortical left frontal lobe calcification is unchanged. The basal cisterns are patent. No extra-axial collections are present. There are no findings to suggest acute dural sinus thrombosis or acute territorial infarct. No significant calvarial abnormalities are present. Visualized portions of the sinuses and mastoid air cells are clear. IMPRESSION: No acute intracranial abnormality. ACT 112: Negative or not required by law. The above report was generated using voice recognition software. It may contain grammatical, syntax or spelling errors. Electronically signed by: Catalino Alcocer M.D. 05/23/2024 1:50 PM Discharge Plan Visit Data Chief Complaint: Dizziness ED Provider: Alaina Chamberlain Discharge Problem: Acute confusion, Dizziness Forms Stand Alone Forms: [facility] Prescriptions Prescriptions: No Action clopidogrel 75 mg Tablet 75 mg PO QAM Qty: 30 0RF allopurinol 100 mg tablet 100 mg PO QAM furosemide 20 mg tablet 20 mg PO DAILY Rx Instructions: MAY TAKE ADDITIONAL DOSE IF NEEDED PER [facility] levothyroxine 88 mcg tablet 88 mcg PO QAM albuterol sulfate [Ventolin HFA] 90 mcg/actuation HFA aerosol inhaler 2 puff INHALATION QID ondansetron 4 mg tablet,disintegrating 4 mg translingual Q8 PRN (Reason: n/v) nitroglycerin [Nitrostat] 0.4 mg Tablet, Sublingual 0.4 mg sublingual UD PRN (Reason: chest pain) Qty: 10 0RF Rx Instructions: place under tongue 0.4mg every 5 minutes as needed for pain,chest famotidine 20 mg Tablet 20 mg PO AMHS atorvastatin 40 mg tablet 40 mg PO HS calcitriol 0.5 mcg capsule 0.5 mcg PO QAM Eliquis 2.5 mg tablet 2.5 mg PO BID escitalopram oxalate 20 mg tablet 20 mg PO QAM metoprolol succinate 25 mg Tablet Extended Release 24 Hr 25 mg PO QAM 30 Days Qty: 30 0RF isosorbide mononitrate 30 mg tablet extended release 24 hr 30 mg PO QAM docusate sodium 100 mg capsule 100 mg PO BID magnesium oxide 400 mg (241.3 mg magnesium) tablet 400 mg PO DAILY Qty: 30 0RF Referrals Referrals: Kasandra Antunez, DO [Primary Care Provider] -
[2024-05-23] MEDS: SODIUM CHLORIDE 0.9% 1,000 ML IV ONE (11:17)
[2024-05-23] MEDS: ONDANSETRON INJ 2 MG/ML 2 ML VIAL IV STA ×2 (11:17→11:34)
[2024-05-23 11:20] LABS: Albumin Globulin Ratio 1.4 (0.9-2); Albumin Level 4.2 gm/dl (3.4-5.0); BUN Creatinine Ratio 15.7 (10-20); Calcium 9.6 mg/dl (8.6-10.3); Creatinine Clr Calc Pharmacy 24.3 ml/min; Est GFR (African American) 29.7 ml/min; Est GFR (Non-African American) 25.6 ml/min; Globulin 2.9 gm/dl (2.5-4.0); Total Protein 7.1 gm/dl (6.0-8.3)
--- NOTE | 2024-05-23 11:46 | XRay Report ---
XR chest 1V portable HISTORY: dizziness COMPARISON: Chest 04/27/2024. FINDINGS: No pneumothorax. No pleural effusions. The cardiac silhouette remains enlarged. There is le ft-sided dual-chamber pacemaker. Mild interstitial thickening at the lung bases which is likely chron ic. No new focal lung consolidations to suggest a pneumonia. There is mild central pulmonary vascular congestion without overt edema. No acute fractures. IMPRESSION: Cardiomegaly and mild congestive change. This is similar to the prior study. ACT 112: Negative or not required by law. Electronically signed by: Aelx Rouse M.D. 05/23/2024 11:45 AM
[2024-05-23 12:07] LABS: Magnesium 1.8 mg/dl (1.7-2.4)
[2024-05-23 12:14] LABS: Troponin I High Sensitivity 11.8 pg/ml (0-14)
[2024-05-23 12:16] LABS: INR 1.1 (0.9-1.1); Prothrombin Time 11.5 Seconds (9.0-12.0)
[2024-05-23 13:02] LABS: Appearance Urine Cloudy (Clear); Bacteria Urine Automated None Seen (None Seen); Bilirubin Urine Negative (Negative); Blood Urine Negative (Negative); Color Urine Yellow; Glucose Urine UA Negative (Negative); Ketones Urine Negative (Negative); Leukocyte Esterase Urine Trace (Negative); Nitrite Urine Negative (Negative); Protein Urine Trace (Negative); RBC Urine Automated 0-2 /hpf (0-2); Specific Gravity Urine 1.014 (1.000-1.030); Urobilinogen Urine Negative (Negative); pH Urine 5.5 (4.5-7.5)
[2024-05-23] MEDS: OPTIRAY 320 100ml IV ONE (13:22)
--- NOTE | 2024-05-23 13:52 | CT Scan Report ---
CT head/brain wo con CLINICAL HISTORY: 78 years-old Female with confusion. Acutely altered mental status TECHNIQUE: Multiple axial CT images of the head were obtained without contrast. A dose lowering tech nique was utilized adhering to the principles of ALARA. COMPARISON: 03/29/2024, 01/12/2024 FINDINGS: No acute intracranial hemorrhage, midline shift or mass effect is present. The ventricular system is stable. White matter hypodensities are similar to prior exam and favor small vessel disease. A focus of encephalomalacia within the right frontal lobe suggests an old infarct. This is unchanged. A small subcortical left frontal lobe calcification is unchanged. The basal cisterns are patent. No extra-ax ial collections are present. There are no findings to suggest acute dural sinus thrombosis or acute t erritorial infarct. No significant calvarial abnormalities are present. Visualized portions of the si nuses and mastoid air cells are clear. IMPRESSION: No acute intracranial abnormality. ACT 112: Negative or not required by law. The above report was generated using voice recognition software. It may contain grammatical, syntax o r spelling errors. Electronically signed by: Catalino Alcocer M.D. 05/23/2024 1:50 PM
--- NOTE | 2024-05-23 14:28 | CT Scan Report ---
ABDOMEN AND PELVIS CT WITH IV CONTRAST CT DOSE: 1730.41 mGy.cm HISTORY: abdominal pain; N/V TECHNIQUE: Multiaxial CT images of the abdomen and pelvis were performed following the use of intrave nous contrast. A dose lowering technique was utilized adhering to the principles of ALARA. COMPARISON STUDY: Abdomen and pelvis CT 10/23/2021. FINDINGS: There is air trapping and dependent changes again noted at the lung bases. No pneumoperiton eum. No pneumatosis. No acute fractures. The heart remains enlarged. Pacemaker wires are partially vi sualized. Cholecystectomy. The liver, spleen, adrenal glands, and pancreas are unremarkable. Multiple bilateral renal hypodense lesions. These likely represent cysts. The largest on the right measures 4 .3 cm. No hydronephrosis. The main portal vein is patent. Moderate calcified plaque within the normal caliber abdominal aorta. No pelvic lymphadenopathy or pelvic free fluid. The bladder is unremarkable . Mild thickening of the endometrium measuring 9 mm. Colonic diverticulosis. No evidence for acute di verticulitis. Normal appendix. No bowel wall thickening or obstruction. IMPRESSION: 1. No bowel wall thickening or obstruction. 2. Normal appendix. 3. Colonic diverticulosis. No evidence for acute diverticulitis. 4. Mild thickening of the endometrium measuring 9 mm. This is considered pathologic in a postmenopaus al female. Follow-up nonemergent gynecologic consultation recommended. ACT 112: Negative or not required by law. Electronically signed by: Alex Rouse M.D. 05/23/2024 2:27 PM
--- NOTE | 2024-05-23 16:18 | History & Physical Report ---
Date of Service May 23, 2024 Assessment & Plan (1) Dizziness: (2) Visual changes: (3) Prolonged QT interval: (4) Type 2 diabetes mellitus: (5) Atrial fibrillation: (6) HTN (hypertension): (7) Chronic CHF: Plan This is a 78-year-old female who has a significant past medical history of nonischemic cardiomyopathy, chronic systolic and diastolic CHF, TBS status post PPM, permanent atrial fibrillation, CKD stage IV, prediabetes, HTN, HLD, history of CVA, dementia, GERD and anxiety who presents to ED due to dizziness and increased confusion. Dizziness with associate n/v described as vertiginous in nature, not presyncope with associated blurred vision admit to [facility] sx have since resolved since arriving to ED ? if TIA vs hypoglycemia, vs arrhythmia vs hypo/hypertension obtain MRI brain w/o con given gfr, US carotids she had an echo 04/28/24 which revealed LVEF severely reduced < 25%, LA moderately dilated, moderate MR, mild TR orthostatics, pacer interrogation PT/OT sx were not reproducible on exam therefore I doubt labyrinthitis/vestibular neuronitis or BPPV; also no recent URI sx Dementia sisters at bedside report recent dx feel memory has been declining, she also has been having visual hallucinations for several weeks MRI ordered, consider neuro eval based on that Abnormal CT a/p: Mild thickening of the endometrium measuring 9 mm. This is considered pathologic in a postmenopausal female. Follow-up nonemergent gynecologic consultation recommended. 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 Mcelroy permanent atrial fib HTN continue Eliquis, Imdur, Lasix and metoprolol Hx of CVA on statin, plavix, eliquis MRI ordered DVT ppx: eliquis DNR/DNI PCP: Kasandra Antunez Dispo: admit to [facility] for dizziness eval, possible discharge tomorrow Pt was seen and examined in collaboration with Dr. Lara, please see addendum A total of 76 minutes was spent coordinating, documenting, and providing care for this patient excluding time spent in the performance of separately billed services. This included personally viewing all current laboratories and imaging studies, medication reconciliation, outpatient chart review, and discussion with specialists. History of Present Illness Chief Complaint: dizziness x 1 day. Primary Care Provider: Kasandra Antunez DO This is a 78-year-old female who has a significant past medical history of nonischemic cardiomyopathy, chronic systolic and diastolic CHF, TBS status post PPM, permanent atrial fibrillation, CKD stage IV, prediabetes, HTN, HLD, history of CVA, dementia, GERD and anxiety who presents to ED due to dizziness and increased confusion. Her 2 sisters are at bedside. Outpt records reviewed. Patient reports when she went to bed last evening she felt very dizzy. She described this as feeling off balance. She was also complaining of blurry vision. She states when she woke up this morning and her compensation specialist was there she was having difficulty walking requiring her to hold onto things. Due to her being dizzy and off-balance her compensation specialist called EMS. Patient states this is never happened before. Her 2 sisters at bedside also report worsening confusion as well as hallucinations. When she looks outside she sees cats and is afraid they are going to come in. Her sister is at bedside reports that she was recently diagnosed with dementia and over the last few months have been noticing increasing hallucinations. En route to EMS patient was significantly nauseated and vomited x 1. When she got to the ER she did feel better and her symptoms mostly resolved. During my visit she denied any dizziness, visual changes, nausea or vomiting. Of significance she was recently hospitalized in early April secondary to acute on chronic CHF. She also required electrophysiology procedure where she underwent an AV eduardo ablation as well as a dual PPM interrogation and reprogramming of her pacemaker. She denies any recent viral symptoms. She denies any prior history of vertigo. She denies any headache, focal weakness, slurred speech or facial droop. She did not check her blood pressure or blood sugar during this event. She denies any fever, chills, sweats, lightheadedness, presyncope, chest pain, shortness breath, cough, abdominal pain, dysuria, increased urinary frequency with urination, melena or hematochezia. She tends to be more on the constipated side and she is moving her bowels with utilization of stool softeners. In ED patient remained hem odynamically stable. Her lab work was notable for a chronic anemia with an H&H of 11.3 and 35.6, stable BUN/creatinine at 29 and 1.85, glucose 190, Head CT without acute abnormality, CXR with cardiomegaly and mild congestive change, ct a/p with endometrial thickening but otherwise no acute abnormality. Allergies Allergy/AdvReac Type Severity Reaction Status Date / Time codeine Allergy Intermediate PSCHO Verified 05/23/24 15:30 COMPLICATIONS PER [facility] Home Medications Medication Instructions Recorded Confirmed Type allopurinol 100 mg tablet 100 mg PO QAM 06/11/19 05/23/24 History clopidogrel 75 mg tablet 75 mg PO QAM #30 tabs 02/24/20 05/23/24 Rx nitroglycerin 0.4 mg sublingual 0.4 mg sublingual UD PRN chest 05/11/22 05/23/24 Rx tablet (Nitrostat) pain #10 tabs furosemide 20 mg tablet 20 mg PO DAILY 09/18/22 05/23/24 History atorvastatin 40 mg tablet 40 mg PO HS 01/06/23 05/23/24 History famotidine 20 mg tablet 20 mg PO AMHS 01/06/23 05/23/24 History albuterol sulfate 90 mcg/actuation 2 puff inhalation QID 03/28/23 05/23/24 History aerosol inhaler (Ventolin HFA) levothyroxine 88 mcg tablet 88 mcg PO QAM 03/28/23 05/23/24 History ondansetron 4 mg disintegrating 4 mg translingual Q8 PRN n/v 03/28/23 05/23/24 History tablet apixaban 2.5 mg tablet (Eliquis) 2.5 mg PO BID 02/29/24 05/23/24 History calcitriol 0.5 mcg capsule 0.5 mcg PO QAM 02/29/24 05/23/24 History docusate sodium 100 mg capsule 100 mg PO BID 03/29/24 05/23/24 History isosorbide mononitrate 30 mg 30 mg PO QAM 03/29/24 05/23/24 History tablet,extended release 24 hr magnesium oxide 400 mg (241.3 mg 400 mg PO DAILY #30 tabs 03/31/24 05/23/24 Rx magnesium) tablet escitalopram oxalate 20 mg tablet 20 mg PO QAM 04/27/24 05/23/24 History metoprolol succinate 25 mg 25 mg PO QAM 30 days #30 tabs 05/02/24 05/23/24 Rx tablet,extended release 24 hr Past Med/Surg History Problem List (Updated 05/23/24 @ 18:58 by Glenda Harp PA-C) Chronic CHF Visual changes Dizziness (Acute) Acute confusion (Acute) Prolonged QT interval Acute kidney injury superimposed on chronic kidney disease Defibrillator discharge (Acute) Weakness (Acute) CHF (congestive heart failure) (Acute) Acute hypokalemia (Acute) Weakness (Acute) Hypomagnesemia (Acute) Pneumonia Cardiac pacemaker Nonischemic cardiomyopathy Atrial fibrillation with rapid ventricular response (Acute) Dyspnea (Acute) Hypoxia (Acute) Pulmonary edema (Acute) Pleural effusion Acute on chronic HFrEF (heart failure with reduced ejection fraction) Aspiration pneumonia Pulmonary edema (Acute) Acute exacerbation of CHF (congestive heart failure) (Acute) Acute respiratory failure with hypoxia (Acute) CKD (chronic kidney disease), stage IV Tachycardia-bradycardia syndrome Paroxysmal atrial fibrillation Pneumonia (Acute) Hypoxia (Acute) Intractable nausea and vomiting (Acute) Paroxysmal atrial fibrillation with RVR (Acute) Atrial fibrillation with RVR Generalized weakness History of right MCA stroke Dyslipidemia Type 2 diabetes mellitus HTN (hypertension) (Chronic) Pain, dental (Acute) Atrial fibrillation (Chronic) Medical History Pneumonia Acute systolic (congestive) heart failure LBBB (left bundle branch block) History of adenomatous polyp of colon Degenerative disc disease, cervical Hearing loss [place] (generalized anxiety disorder) GERD without esophagitis Vitamin D deficiency Hypertensive cardiomegaly Surgical History History of D&C History of excision of lesion Back - Dr. Tucker History of carpal tunnel surgery History of arthroplasty of left knee Family History Other Diabetes Heart disease Social History Smoking Status: Never smoker Second Hand Exposure: No; Do You Dip or Chew Tobacco: No; Hx Alcohol Use: No Hx Substance Use: No Preferred Language: Vietnamese Communication Ability: Effective Hearing Ability: Hard of Hearing Fluid Designer Required: No Beliefs That Will Affect Care: None marital status: / Current Living Situation: Family Current Living Situation Comment: son Feels Safe at Home: Yes Assistive Devices: Walker and Wheelchair Review of Systems Review of Systems: All systems reviewed & are unremarkable except as noted in HPI & below Physical Exam Physical Exam: Constitutional: Chronically ill appearing, WD/WN, vitals as above, NAD, sitting up in bed, pleasant, conversing easily Head: Normocephalic, Atraumatic Eyes: PERRL, conjunctivae normal, anicteric sclerae ENMT: external ear and nose normal, oropharynx normal , [place], b/l hearing aides, b/l ear canals clear, TM wnl Neck: trachea midline, no thyromegaly normal visual inspection Respiratory: normal respiratory effort, lungs clear to auscultation, no wheeze, rales, rhonchi. Normal insp/exp effort, no accessory muscle use Cardiovascular: IRR/IRR, no murmur, no edema Vessels: no JVD or carotid bruit Chest: normal inspection of chest +pacemaker Abdomen: normal bowel sounds, soft, nontender, no hepatosplenomegaly Musculoskeletal: no cyanosis or clubbing, extremities motor strength 5/5 Skin: no rashes, warm and dry normal turgor Neurologic: PERRL, EOMI, accommodation nl, no face palsy, no dysarthria CN's II-XI intact bilaterally and moves all extremities Psychiatric: A+Ox3 to basics, euthymic affect Lymphatic: no cervical or axillary lymphadenopathy : deferred Results & Data Results & Data Vital Signs (Past 12 Hours) Vital Signs Temp Pulse Resp BP Pulse Ox O2 Del Method O2 Flow Rate 05/23/24 15:05 92 H 05/23/24 14:39 86 22 127/78 97 05/23/24 14:33 82 16 127/78 96 05/23/24 12:36 78 19 120/75 97 05/23/24 10:29 89 05/23/24 10:25 90 21 121/75 97 05/23/24 10:22 102 H 20 98 Room Air 05/23/24 10:10 Room Air 0 05/23/24 10:10 36.8 C 98 H 16 121/101 H 97 Room Air Laboratory Results I have independently reviewed and interpreted patient's admitting labs including CBC, CMP, PT/INR, mag, UA and troponin. Diagnostic Findings Abdomen/Pelvis CT 05/23/24 11:[address] WITH IV CONTRAST CT DOSE: 1730.41 mGy.cm HISTORY: abdominal pain; N/V TECHNIQUE: Multiaxial CT images of the abdomen and pelvis were performed following the use of intravenous contrast. A dose lowering technique was utilized adhering to the principles of ALARA. COMPARISON STUDY: Abdomen and pelvis CT 10/23/2021. FINDINGS: There is air trapping and dependent changes again noted at the lung bases. No pneumoperitoneum. No pneumatosis. No acute fractures. The heart remains enlarged. Pacemaker wires are partially visualized. Cholecystectomy. The liver, spleen, adrenal glands, and pancreas are unremarkable. Multiple bilateral renal hypodense lesions. These likely represent cysts. The largest on the right measures 4.3 cm. No hydronephrosis. The main portal vein is patent. Moderate c alcified plaque within the normal caliber abdominal aorta. No pelvic lymphadenopathy or pelvic free fluid. The bladder is unremarkable. Mild thickening of the endometrium measuring 9 mm. Colonic diverticulosis. No evidence for acute diverticulitis. Normal appendix. No bowel wall thickening or obstruction. IMPRESSION: 1. No bowel wall thickening or obstruction. 2. Normal appendix. 3. Colonic diverticulosis. No evidence for acute diverticulitis. 4. Mild thickening of the endometrium measuring 9 mm. This is considered pathologic in a postmenopausal female. Follow-up nonemergent gynecologic c onsultation recommended. ACT 112: Negative or not required by law. Electronically signed by: Alex Rouse M.D. 05/23/2024 2:27 PM Chest X-Ray 05/23/24 11:09 XR chest 1V portable HISTORY: dizziness COMPARISON: Chest 04/27/2024. FINDINGS: No pneumothorax. No pleural effusions. The cardiac silhouette remains enlarged. There is left-sided dual-chamber pacemaker. Mild interstitial thickening at the lung bases which is likely chronic. No new focal lung consolidations to suggest a pneumonia. There is mild central pulmonary vascular congestion without overt edema. No acute fractures. IMPRESSION: Cardiomegaly and mild congestive change. This is similar to the prior study. ACT 112: Negative or not required by law. Electronically signed by: Alex Rouse M.D. 05/23/2024 11:[address] 05/23/24 11:09 CT head/brain wo con CLINICAL HISTORY: 78 years-old Female with confusion. Acutely altered mental s tatus TECHNIQUE: Multiple axial CT images of the head were obtained without contrast. A dose lowering technique was utilized adhering to the principles of ALARA. COMPARISON: 03/29/2024, 01/12/2024 FINDINGS: No acute intracranial hemorrhage, midline shift or mass effect is present. The ventricular system is stable. White matter hypodensities are similar to prior exam and favor small vessel disease. A focus of encephalomalacia within the right frontal lobe suggests an old infarct. This is unchanged. A small subcortical left frontal lobe calcification is unchanged. The basal cisterns are patent. No extra-axial collections are present. There are no findings to suggest acute dural sinus thrombosis or acute territorial infarct. No significant calvarial abnormalities are present. Visualized portions of the sinuses and mastoid air cells are clear. IMPRESSION: No acute intracranial abnormality. ACT 112: Negative or not required by law. The above report was generated using voice recognition software. It may contain grammatical, syntax or spelling errors. Electronically signed by: Catalino Alcocer M.D. 05/23/2024 1:50 PM Medications Administered Medication List Discontinued Medications Sodium Chloride (Nss) 1,000 mls @ 999 mls/hr IV .Q1H1M ONE Stop: 05/23/24 12:10 Last Infusion: 05/23/24 12:26 Dose: Infused Documented By: Admin: 05/23/24 11:17 Dose: 999 mls/hr Documented By: CHAGO Ioversol (Optiray 320 100ml) 70 ml IV ONCE ONE Stop: 05/23/24 13:22 Last Admin: 05/23/24 13:22 Dose: 70 ml Documented By: AMRIT Ondansetron HCl (Ondansetron Inj 2 Mg/Ml 2 Ml Vial) 4 mg IV NOW STA Stop: 05/23/24 11:11 Last Admin: 05/23/24 11:17 Dose: 4 mg Documented By: CHAGO Ondansetron HCl (Ondansetron Inj 2 Mg/Ml 2 Ml Vial) 4 mg IV NOW STA Stop: 05/23/24 11:13 Last Admin: 05/23/24 11:34 Dose: Not Given Documented By: CHAGO ECG Additional Comments: I have independently reviewed and interpreted patient's admitting EKG which revealed: 91 ventricular paced rhythm, qtc 523ms COVID-19 Results Results COVID-19 Adm Lab Results: RBC 3.53 M/uL (4.20-5.40) L 05/23/24 WBC 9.79 K/ul (4.8-10.8) 05/23/24 Hgb 11.3 g/dl (12.0-16.0) L 05/23/24 Hct 35.6 % (37.0-47.0) L 05/23/24 Plt Count 316 K/uL (130-400) 05/23/24 Neutrophils (%) (Auto) 63.1 % 05/23/24 Lymphocytes (%) (Auto) 25.1 % 05/23/24 Monocytes # (Auto) 0.97 K/uL (0.11-0.59) H 05/23/24 Eosinophils # (Auto) 0.08 K/uL (0.00-0.50) 05/23/24 Immature Granulocyte % (Auto) 0.5 % 05/23/24 Neutrophils # (Auto) 6.17 K/uL (1.40-6.50) 05/23/24 Lymphocytes # (Auto) 2.46 K/uL (1.20-3.40) 05/23/24 Monocytes # (Auto) 0.97 K/uL (0.11-0.59) H 05/23/24 Eosinophils # (Auto) 0.08 K/uL (0.00-0.50) 05/23/24 Basophils # (Auto) 0.06 K/uL (0.00-0.20) 05/23/24 Immature Granulocyte # (Auto) 0.05 K/uL (0.01-0.20) 4 Na 141 mmol/L (136-145) 05/23/24 K 4.0 mmol/L (3.5-5.1) 05/23/24 Cl 105 mmol/L (98-107) 05/23/24 CO2 25 mmol/L (21-32) 05/23/24 Anion Gap 11 (3-11) 05/23/24 BUN 29 mg/dl (6-23) H 05/23/24 Creatinine 1.85 mg/dl (0.6-1.2) H 05/23/24 BUN/Creatinine Ratio 15.7 (10-20) 05/23/24 Glucose Level 190 mg/dl (70-99(Fasting)) H 05/23/24 Ca 9.6 mg/dl (8.6-10.3) 05/23/24 Total Bilirubin 1.0 mg/dl (0.2-1.0) 05/23/24 AST/SGOT 13 U/L (13-39) 05/23/24 ALT/SGPT 8 U/L (7-52) 05/23/24 Alkaline Phosphatase 137 U/L (34-104) H 05/23/24 Total Protein 7.1 gm/dl (6.0-8.3) 05/23/24 Albumin 4.2 gm/dl (3.4-5.0) 05/23/24 Globulin 2.9 gm/dl (2.5-4.0) 05/23/24 Albumin/Globulin Ratio 1.4 (0.9-2) 05/23/24 INR 1.1 (0.9-1.1) 05/23/24 Adenovirus (PCR) Not Detected (NotDetected) 05/23/24 B. parapertussis DNA (PCR) Not Detected (NotDetected) 11/15 B. pertussis DNA (PCR) Not Detected (NotDetected) 05/23/24 C. pneumoniae DNA (PCR) Not Detected (NotDetected) 4 Coronavirus Type OC43 (PCR) Not Detected (NotDetected) 11/15 Coronavirus Type HKU1 (PCR) Not Detected (NotDetected) 11/15 Coronavirus Type 229E (PCR) Not Detected (NotDetected) 11/15 COVID-19 PCR Not Detected (NotDetected) 05/23/24 Coronavirus Type NL63 (PCR) Not Detected (NotDetected) 11/15 Human Metapneumovirus (PCR) Not Detected (NotDetected) 11/15 Influenza Virus Type A (PCR) Not Detected (NotDetected) Influenza Virus Type B (PCR) Not Detected (NotDetected) M. pneumoniae (PCR) Not Detected (NotDetected) 05/23/24 Parainfluenza Type 1 (PCR) Not Detected (NotDetected) 11/15 Parainfluenza Type 2 (PCR) Not Detected (NotDetected) 11/15 Parainfluenza Type 3 (PCR) Not Detected (NotDetected) 11/15 Parainfluenza Type 4 (PCR) Not Detected (NotDetected) 11/15 RSV (PCR) Not Detected (NotDetected) 05/23/24 Enterovirus/Rhinovirus (PCR) Not Detected (NotDetected) Chest X-Ray 05/23/24 Code Status & VTE Plan Code Status DNR/DNI Supervising Physician Co-Signing Physician Notes Patient was seen and examined independently at bedside. Chart reviewed. Case discussed with Glenda ARCHIBALD and agree with the documentation above with regards to HPI, PE and A/P. Feeling better during my encounter. Her symptoms have resolved. No more dizziness, N/V. Ambulated to the bathroom without issues. Tolerating diet well. Consider gynecology consult in the morning. MRI brain pending. (4) Type 2 diabetes mellitus Chronic kidney disease stage: stage 3 (moderate) Diabetes mellitus complication detail: with chronic kidney disease Diabetes mellitus complication status: with kidney complications Diabetes mellitus mcfp insulin use: without mcfp use Qualified Code(s): 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 (6) HTN (hypertension) 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 type: essential hypertension Qualified Code(s): I10 - Essential (primary) hypertension
--- OUTSIDE RECORDS SUMMARY | 2024-05-23 16:34 | External Medical Summary | Summary of Care ---
Author Name Unknown Organization [facility] Address [address] [facility] [address] Phone [phone] Care Team Providers Care Announcer Name Role Phone Vilma Antunez DO Primary Care Provider Reason for Visit * Reason Onset Date Comments Medication Refill 05/16/2024 Encounter Details Date Type Department Care Team (Late st Contact Info) Description 05/16/2024 Refill Family Practice [facility] [place] [facility] [place] [address] Vilma Antunez DO 200 [facility] [place] [address] Paroxysmal atrial fibrillation (HCC); HTN, goal below 140/90; Tachy-leeanne syndrome (HCC) Allergies Active Allergy Reactions Criticality Noted Date Comments Codeine Psych complications 12/05/2011 documented as of this encounter (statuses as of 05/17/2024) Medications Medication Sig Dispensed Refills Start Date [...] AT BEDTIME 54 g 3 4 Active Levothyroxine Sodium 88 MCG Oral [...] daily E11.9 100 Strip 3 4 Active Furosemide 20 MG Oral Tablet (Lasix) Take 1 Tablet by mouth in the morning. 90 Tablet 3 4 Active Escitalopram Oxalate 20 MG Oral Tablet (Lexapro) Take 1 Tablet by mouth in the morning. 30 Tablet 5 4 Active Metoprolol Succinate ER 25 MG Oral Tablet Extended Release 24 Hour (toPROL XL) Take 1 Tablet by mouth in the morning. Active Allopurinol 100 MG Oral Tablet (Zyloprim)Indicati ons:Gout of big toe TAKE 1 TABLET BY MOUTH ONCE DAILY IN THE MORNING 90 Tablet 3 4 Active Metoprolol Succinate ER 25 MG Oral Tablet Extended Release 24 Hour (toPROL XL) Take 1 Tablet by mouth in the morning. 30 Tablet 5 4 Active Metoprolol Succinate ER 100 MG Oral Tablet Extended Release 24 Hour (toPROL XL)Indications:Par oxysmal atrial fibrillation (HCC),HTN, goal below 140/90,Tachy-leeanne syndrome (HCC) Take 1 Tablet by mouth in the morning and 1 Tablet before bedtime. 180 Tablet 3 4 024 Discontinued(Re fill) Metoprolol Succinate ER 100 MG Oral Tablet Extended Release 24 Hour (toPROL XL)Indications:Par oxysmal atrial fibrillation (HCC),HTN, goal below 140/90,Tachy-leeanne syndrome (HCC) Take 1 Tablet by mouth in the morning and 1 Tablet before bedtime. 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 [...] as of this encounter (statuses as of 05/17/2024) Immunizations Name Administration Dates Next Due COVID-19 mRNA, LNP-s, No Pre serve, 2-Dose Series (Moderna) 11/19/2021,05/19/2021,04/21/2021 COVID-19, MRNA-LNP, 23-24, P F, 50 MCG/0.5 mL, 12 YRS AND ABOVE, IM (MODERNA-Spikevax) 07/21/2023 Covid-19, Mrna, Lnp-s, Pf, B ivalent, 30 Mcg, IM, 12 yrs and above (Pfizer) 09/29/2022 Pneumococcal Conjugate Vacc, 13 Valent (Prevnar) 08/03/2015 Pneumococcal Conjugate Vacci ne, 20-valent ([id number]) 04/11/2024 Pneumococcal Polysaccharide PPV23 (Pneumovax) 09/09/2013,10/19/2010,08/20/2007 Season Influenza, Quad, PF, Adjuvanted, 65+ Yrs, IM (FLUAD) 07/08/2023,07/06/2020 Seasonal Influenza, Quadriva lent Hd (Fluzone Hd) [...] No 04/10/2024 Does the household have a select specialty hospitalr source of income? (Household - for ages [...] as of this encounter Miscellaneous Notes * Addendum Note - Vilma Antunez DO - 05/17/2024 9:55 AM EDTAddended by: VILMA ANTUNEZ on: 05/17/2024 09:55 AM Modules accepted: Orders * Telephone Encounter - Nimesh Castorena marine equipment engineer - 05/16/2024 2:14 PM EDT Pharmacy is calling in regard to Metoprolol Succ 100mg that was sent to them today. [facility] states that when patient was discharged from the hospital- a script for Metoprolol 25mg was sent to them and now she's back on the 100mg again? Calling for clarification. Please advise. Thank you, Ryland Castorena, Director Of Labor And Delivery Chain Builder [employer] 1 [facility] ([facility]) (Formerly Telepharmacy) 05/16/2024,2:16 PM * Telephone Encounter - Lynnette Lima MD - 05/16/2024 2:01 PM EDTSigned Prescriptions: Disp Refills Metoprolol Succinate ER 100 MG Oral Tablet*180 Ta*3 Sig: Take 1 Tablet by mouth in the morning and 1 Tablet before bedtime. Authorizing Provider: LYNNETTE LIMA * Telephone Encounter - Pratibha Herrera LPN - 05/16/2024 12:45 PM EDTPending Prescriptions: Disp Refills Metoprolol Succinate ER 100 MG Oral Tablet*180 Ta*3 Sig: Take 1 Tablet by mouth in the morning and 1 Tablet before bedtime. * Telephone Encounter - Nora Salazar OSA - 05/16/2024 11:01 AM EDT Did you pend patient's preferred pharmacy and medication before forwarding?yes Pharmacy: [facility] Pending Prescriptions: Disp Refills Metoprolol Succinate ER 100 MG Oral Table*180 Ta*3 Sig: Take 1 Tablet by mouth in the morning and 1 Tablet before bedtime. Last Visit: 05/07/2024 (in office), Visit date not found (telemedicine) Next Visit: Visit date not found If no future appointments scheduled, and last appointment is greater than a year ago, please schedule patient for a follow-up appointment Last date the medication was ordered: [id number] Is this request for a controlled substance?No Urine Drug Screen:No results found. However, due to the size of the patient record, not all encounters were searched. Please check Results Review for a complete set of results. Patient Phone Numbers Labs: Lab Results Component [...] Care Team (Late st Contact Info) Description 06/18/2024 2:00 PM EDT Office Visit Cardiology, [facility] 132 [facility] [place] [id number] Ruby Blandon CRNP [address] [place] [address] [place] [address] 08/30/2024 2:30 PM EST Office Visit Cardiology, [facility] [address] [place] [address] Brian Anne MD [address] [place] [address] Scheduled Procedures Name Priority Associated Diagnoses Date/Ti [...] 07/09/2021, Additional history exists PTH 09/22/2024 09/22/2023, 05/2022, [...] encounter Visit Diagnoses Diagnosis Paroxysmal atrial fibrillation (HCC) Atrial fibrillation HTN, goal below 140/90 Unspecified essential hypertension Tachy-leeanne syndrome (HCC) Sinoatrial node dysfunction documented in this encounter Advance Directives Documents on File Type Date Recorded Patient Director Of Parks And Recreation Expl anation Power of Airport Operations Supervisor 04/08/2024 signed on 04/05/2024 POWER OF SWITCH ENGINEER Advance Directives and Living Will 06/15/2022 ADVANCE DIRECTIVE / LIVING WILL Healthcare Agents on File Name Relationship Healthcare Agent Relationship Communication Rajeev "Reginald" Chronister Adult Child Health C are Director Of Parks And Recreation (appointed verbally by patient or by statute hierarchy) Care Teams Announcer Relationship Specialty Start Date End Date Vilma Antunez DO [address] [place] [address] PCP - General Family Medicine 10/28/11 documented as of this encounter
--- OUTSIDE RECORDS SUMMARY | 2024-05-23 16:34 | External Medical Summary | Summary of Care ---
Author Name Unknown Organization [facility] Address [address] [place] [address] Phone [phone] Care Team Providers Care Blasting Miner Name Role Phone Vilma Antunez DO Primary Care Provider Reason for Visit * Reason Comments eRx-Medication Refill Encounter Details Date Type Department Care Team (Late st Contact Info) Description 05/17/2024 Refill Family Practice [facility] [place] [address] Vilma Antunez DO 200 [facility] [place] [address] Allergies Active Allergy Reactions Criticality Noted Date [...] affected area. 60 g 5 2 Active Nitroglycerin 0.4 MG Sublingual Tablet Sublingual [...] morning. Active Allopurinol 100 MG Oral Tablet (Zyloprim)Indicatio ns:Gout of big toe TAKE 1 TABLET BY MOUTH ONCE DAILY IN THE MORNING 90 Tablet 3 4 Active Ondansetron 4 MG Oral Tablet Disintegrating (Zofran) Place under the tongue 1 Tablet every 8 hours as needed for Nausea or Vomiting. 20 Tablet 11 4 Active Metoprolol Succinate ER 25 MG Oral Tablet Extended Release 24 Hour (toPROL XL) Take 1 Tablet by mouth in the morning. 30 Tablet 5 4 Active Ondansetron 4 MG Oral Tablet Disintegrating (Zofran) Place 1 Tablet under the tongue every 8 hours as needed for Nausea or Vomiting. 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Authorizing Provider: VILMA ANTUNEZ User: JESSIKA LOJA documented in this encounter Plan of Treatment Upcoming Encounters Date Type Department Care Team (Late st Contact Info) Description 06/18/2024 2:00 PM EDT Office Visit Cardiology, [facility] [address] [place] [address] Ruby Blandon CRNP [address] [place] [address] [place] [id number] 08/30/2024 2:30 PM EST Office Visit Cardiology, [facility] [address] [place] [address] Brian Anne MD 132 [place] [address] Scheduled Procedures Name Priority Associated Diagnoses Date/Ti [...] Documents on File Type Date Recorded Patient Pool Coordinator Expl anation Power of Client Director 04/08/2024 signed on 04/05/2024 POWER OF HAND DRAWER IN Advance Directives and Living Will 06/15/2022 ADVANCE DIRECTIVE / LIVING WILL Healthcare Agents on File Name Relationship Healthcare Agent Relationship Communication Rajeev "Reginald" Chronister Adult Child Health C are Pool Coordinator (appointed verbally by patient or by statute hierarchy) Care Teams Blasting Miner Relationship Specialty Start Date End Date Vilma Antunez DO [address] [place] [address] PCP - General Family Medicine 10/28/11 documented as of this encounter
--- OUTSIDE RECORDS SUMMARY | 2024-05-23 16:35 | External Medical Summary | Summary of Care ---
Author Name Unknown Organization [facility] Address [address] [facility] [address] Phone [phone] Care Team Providers Care Hearing Examiner Name Role Phone Kasandra Antunez DO Primary Care Provider Reason for Visit * Reason Onset Date Comments Medication Refill 05/16/2024 Encounter Details Date Type Department Care Team (Late st Contact Info) Description 05/16/2024 Refill Family Practice [facility] [place] 200 [facility] [place] [address] Kasandra Antunez DO [address] [facility] [place] [address] Paroxysmal atrial fibrillation (HCC); HTN, goal below 140/90; Tachy-leeanne syndrome (HCC) Allergies Active Allergy Reactions Criticality Noted Date Comments Codeine Psych complications 12/05/2011 documented as of this encounter (statuses as of 05/16/2024) Medications Medication Sig Dispensed Refills Start Date [...] AT BEDTIME 54 g 3 11/02/2023 Active Levothyroxine Sodium 88 MCG Oral Tablet [...] Tablet 5 04/19/2024 Active Metoprolol Succinate ER 25 MG Oral Tablet Extended Release 24 Hour (toPROL XL) Take 1 Tablet by mouth in the morning. Active Allopurinol 100 MG Oral Tablet (Zyloprim)Indicatio ns:Gout of big toe TAKE 1 TABLET BY MOUTH ONCE DAILY IN THE MORNING 90 Tablet 3 05/15/2024 Active Metoprolol Succinate ER 100 MG Oral Tablet Extended Release 24 Hour (toPROL XL)Indications:Paro xysmal atrial fibrillation (HCC),HTN, goal below 140/90,Tachy-leeanne syndrome (HCC) Take 1 Tablet by mouth in the morning and 1 Tablet before bedtime. 180 Tablet 3 05/16/2024 Active Metoprolol Succinate ER 100 MG Oral Tablet Extended Release 24 Hour (toPROL XL)Indications:Paro xysmal atrial fibrillation (HCC),HTN, goal below 140/90,Tachy-leeanne syndrome (HCC) Take 1 Tablet by mouth in the morning and 1 Tablet before bedtime. 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 [...] as of this encounter (statuses as of 05/16/2024) Resolved Problems Problem Noted Date Diagnosed Date Resolved Date Acute respiratory failure with hypoxia 10/08/2021 11/03/2021 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 [...] as of this encounter (statuses as of 05/16/2024) Immunizations Name Administration Dates Next Due COVID-19 mRNA, LNP-s, No Pre serve, 2-Dose Series (Moderna) 11/19/2021,05/19/2021,04/21/2021 COVID-19, MRNA-LNP, 23-24, P F, 50 MCG/0.5 mL, 12 YRS AND ABOVE, IM (MODERNA-Spikevax) 07/21/2023 Covid-19, Mrna, Lnp-s, Pf, B ivalent, 30 Mcg, IM, 12 yrs and above (Pfizer) 09/29/2022 Pneumococcal Conjugate Vacc, 13 Valent (Prevnar) 08/03/2015 Pneumococcal Conjugate Vacci ne, 20-valent ([id number]) 04/11/2024 Pneumococcal Polysaccharide PPV23 (Pneumovax) 09/09/2013,10/19/2010,08/20/2007 Season [...] encounter Miscellaneous Notes * Telephone Encounter - Nimesh Castorena cyber ops planner - 05/16/2024 2:14 PM EDT Pharmacy is calling in regard to Metoprolol Succ 100mg that was sent to them today. [facility] states that when patient was discharged from the hospital- a script for Metoprolol 25mg was sent to them and now she's back on the 100mg again? Calling for clarification. Please advise. Thank you, Ryland Castorena, Jet Blade Polisher Hog Raiser 1 [facility] ([facility]) (Formerly [...] pharmacy and medication before forwarding?yes Pharmacy: [facility] [address] Pending Prescriptions: Disp Refills Metoprolol Succinate [...] appointment Last date the medication was ordered: [id number] Is this request for a controlled substance?No [...] Description 06/18/2024 2:00 PM EDT [facility] [address] [place] [address] Ruby Blandon CRNP [address] [place] [address] [place] [address] 08/30/2024 2:30 PM EST [facility] [address] [place] [address] Brain Anne MD 132 [place] [address] Scheduled Procedures Name Priority Associated Diagnoses Date/Ti [...] 07/09/2021, Additional history exists PTH 09/22/2024 09/22/2023, 0 05/2022, 01/27/2022, Additional history exists Albumin/Creatinine Ratio 09/25/2024 023, 03/24/2021, 01/22/2016, Additional history exists HbA1c 10/09/2024 04/09/2024, 10/2022, 01/16/2023, Additional history exists GFR 10/13/2024 [...] Documents on File Type Date Recorded Patient Manager Council Expl anation Power of Jacket Changer 04/08/2024 signed on 04/05/2024 POWER OF REVENUE CYCLE ADMINISTRATOR Advance Directives and Living Will 06/15/2022 ADVANCE DIRECTIVE / LIVING WILL Healthcare Agents on File Name Relationship Healthcare Agent Relationship Communication Rajeev "Reginald" Chronister Adult Child Health C are Manager Council (appointed verbally by patient or by statute hierarchy) Care Teams Hearing Examiner Relationship Specialty Start Date End Date Kasandra Antunez DO [address] [place] [address] PCP - General Family Medicine 10/28/11 documented as of this encounter
--- OUTSIDE RECORDS SUMMARY | 2024-05-23 16:35 | External Medical Summary | Summary of Care ---
Author Name Unknown Organization [facility] Address [address] [place] [address] Phone [phone] Care Team Providers Care Brass Roller Name Role Phone Vilma Antunez DO Primary Care Provider Reason for Visit * Reason Comments eRx-Medication Refill Encounter Details Date Type Department Care Team (Late st Contact Info) Description 05/14/2024 Refill Family Practice [facility] [place] [facility] [place] [address] Vilma Antunez DO 200 [facility] [place] [address] Gout of big toe Allergies Active Allergy Reactions Criticality Noted Date Comments Codeine Psych complications 12/05/2011 documented as of this encounter (statuses as of 05/15/2024) Medications Medication Sig Dispensed Refills Start Date [...] Tablet before bedtime. 180 Tablet 3 4 Active Additional Information Patient not taking.Reported on 05/03/2024 Metoprolol Succinate ER 25 MG Oral Tablet Extended Release 24 Hour (toPROL XL) Take 1 Tablet by mouth in the morning. 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 Chronic heart failure with r educed ejection fraction and diastolic dysfunction 01/01/2024 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 [...] as of this encounter (statuses as of 05/15/2024) Resolved Problems Problem Noted Date Diagnosed Date Resolved Date Acute respiratory failure with hypoxia 10/08/2021 11/03/2021 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 [...] as of this encounter (statuses as of 05/15/2024) Immunizations Name Administration Dates Next Due COVID-19 mRNA, LNP-s, No Pre serve, 2-Dose Series (Moderna) 11/19/2021,05/19/2021,04/21/2021 COVID-19, MRNA-LNP, 23-24, P F, 50 MCG/0.5 mL, 12 YRS AND ABOVE, IM (MODERNA-Spikevax) 07/21/2023 Covid-19, Mrna, Lnp-s, Pf, B ivalent, 30 Mcg, IM, 12 yrs and above (Pfizer) 09/29/2022 Pneumococcal Conjugate Vacc, 13 Valent (Prevnar) 08/03/2015 Pneumococcal Conjugate Vacci ne, 20-valent ([id number]) 04/11/2024 Pneumococcal Polysaccharide PPV23 (Pneumovax) 09/09/2013,10/19/2010,08/20/2007 Season [...] Telephone Encounter - Wayne Rodriguez RPh - 05/15/2024 9:44 AM EDT Signed Prescriptions: Disp Refills Allopurinol 100 MG Oral Tablet (Zyloprim) 90 Tab*3 Sig: TAKE 1 TABLET BY MOUTH ONCE DAILY IN THE MORNINGAuthorizing Provider: VILMA ANTUNEZ User: WAYNE RODRIGUEZ documented in this encounter Plan of Treatment Upcoming Encounters Date Type Department Care Team (Late st Contact Info) Description 06/18/2024 2:00 PM EDT Office Visit Cardiology, [facility] 132 [facility] [place] [address] Ruby Blandon CRNP [address] [place] [address] [place] [address] 08/30/2024 2:30 PM EST Office Visit Cardiology, [facility] [address] [place] [address] Brian Anne MD [address] [place] [address] Scheduled Procedures Name Priority Associated Diagnoses Date/Ti [...] 07/09/2021, Additional history exists PTH 09/22/2024 09/22/2023, 0905/2022, 01/27/2022, Additional history exists Albumin/Creatinine Ratio 09/25/2024 023, 03/24/2021, 01/22/2016, Additional history exists HbA1c 10/09/2024 04/09/2024, 12/0 10/2022, 01/16/2023, Additional history exists GFR 10/13/2024 [...] as of this encounter Visit Diagnoses Diagnosis 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 documented in this encounter Advance Directives Documents on File Type Date Recorded Patient Circuit Court Clerk Expl anation Power of Autism Motor Specialist 04/08/2024 signed on 04/05/2024 POWER OF CUTTING MACHINE FIXER Advance Directives and Living Will 06/15/2022 ADVANCE DIRECTIVE / LIVING WILL Healthcare Agents on File Name Relationship Healthcare Agent Relationship Communication Rajeev "Reginald" Chronister Adult Child Health C are Circuit Court Clerk (appointed verbally by patient or by statute hierarchy) Care Teams Brass Roller Relationship Specialty Start Date End Date Vilma Antunez DO [address] [place] [address] PCP - General Family Medicine 10/28/11 documented as of this encounter
--- OUTSIDE RECORDS SUMMARY | 2024-05-23 16:35 | External Medical Summary | Summary of Care ---
Author Name Unknown Organization [facility] Address [address] [facility] [address] Phone [phone] Care Team Providers Care Executive Chef Assistant Name Role Phone Kasandra Antunez DO Primary Care Provider Reason for Visit * Reason Onset Date Comments Medication Refill 05/16/2024 Encounter Details Date Type Department Care Team (Late st Contact Info) Description 05/16/2024 Refill Family Practice [facility] [place] 200 [facility] [place] [address] Kasandra Antunez DO 200 [facility] [place] [address] Paroxysmal atrial fibrillation (HCC); HTN, goal below [...] diastolic dysfunction 01/01/2024 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 [facility] states that when patient was discharged from the hospital- a script for Metoprolol 25mg was sent to them and now she's back on the 100mg again? Calling for clarification. Please advise. Thank you, Ryland Castorena, Cloth Doubling Machine Operator Laborer 1 [facility] ([facility]) (Formerly [...] and medication before forwarding?yes Pharmacy: [facility] [address] Pending Prescriptions: Disp Refills Metoprolol Succinate [...] appointment Last date the medication was ordered: [id number] Is this request for a controlled substance?No [...] Description 06/18/2024 2:00 PM EDT [facility] [address] [place] [address] Ruby Blandon CRNP [address] [place] [address] [place] [address] 08/30/2024 2:30 PM EST [facility] [address] [place] [address] Brian Anne MD 132 [place] [address] Scheduled Procedures Name Priority Associated Diagnoses Date/Ti [...] Documents on File Type Date Recorded Patient Insurance Operations Rep Expl anation Power of Smoke Inspector 04/08/2024 signed on 04/05/2024 POWER OF RAIL CAR REPAIRMAN Advance Directives and Living Will 06/15/2022 ADVANCE DIRECTIVE / LIVING WILL Healthcare Agents on File Name Relationship Healthcare Agent Relationship Communication Rajeev "Reginald" Chronister Adult Child Health C are Insurance Operations Rep (appointed verbally by patient or by statute hierarchy) Care Teams Executive Chef Assistant Relationship Specialty Start Date End Date Kasandra Antunez DO [address] [place] [address] PCP - General Family Medicine 10/28/11 documented as of this encounter
--- OUTSIDE RECORDS SUMMARY | 2024-05-23 16:35 | External Medical Summary | Summary of Care ---
Author Name Unknown Organization [facility] Address [address] [place] [address] Phone [phone] Care Team Providers Care Plant Production Manager Name Role Phone Kasandra Antunez Primary Care Provider Encounter Details Date Type Department Care Team (Late st Contact Info) Description 04/28/2024 Result Scan Unspecified Department <No scans attached> Allergies Active Allergy Reactions Criticality Noted Date Comments Codeine Psych complications 12/05/2011 documented as of this encounter (statuses as of 05/02/2024) Medications Medication Sig Dispensed Refills Start Date [...] Oral Tablet Extended Release 24 Hour (toPROL XL)Indications:Parox ysmal atrial fibrillation (HCC),HTN, goal below 140/90,Tachy-leeanne syndrome (HCC) Take 1 Tablet by mouth in the morning and 1 Tablet before bedtime. 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 [...] as of this encounter (statuses as of 05/02/2024) Immunizations Name Administration Dates Next Due COVID-19 mRNA, LNP-s, No Pre serve, 2-Dose Series (Moderna) 11/19/2021,05/19/2021,04/21/2021 Pneumococcal Conjugate Vacc, 13 Valent (Prevnar) 08/03/2015 Pneumococcal Conjugate Vacci ne, 20-valent ([id number]) 04/11/2024 Pneumococcal Polysaccharide PPV23 (Pneumovax) 09/09/2013,10/19/2010,08/20/2007 Season [...] 06/18/2024 2:00 PM EDT Office Visit Cardiology, [facility] [address] [facility] [place] [address] Ruby Blandon CRNP [address] [place] [address] 08/30/2024 2:30 PM EST Office Visit Cardiology, [facility] [address] [place] [address] Brian nAne MD [address] [place] [address] Scheduled Procedures Name Priority Associated Diagnoses Date/Ti [...] 07/09/2021, Additional history exists PTH 09/22/2024 09/22/2023, 09/0 [...] Procedure Name Priority Date/Time Associated Diagnosis Comments ECHOCARDIOLOGY SCANNED RESULT 04/28/2024 documented in this encounter Results * ECHOCARDIOLOGY SCANNED RESULT (04/28/2024) 04/28/2024 No Physician Data Unknown ECHOCARDIOLOGY documented in this encounter Advance Directives Documents on File Type Date Recorded Patient Teaching Young Expl anation Power of Storage Specialist 04/08/2024 signed on 04/05/2024 POWER OF SHOEMAKING CUTTER Advance Directives and Living Will 06/15/2022 ADVANCE DIRECTIVE / LIVING WILL Healthcare Agents on File Name Relationship Healthcare Agent Relationship Communication Rajeev "Reginald" Chronister Adult Child Health C are Teaching Young (appointed verbally by patient or by statute hierarchy) Care Teams Plant Production Manager Relationship Specialty Start Date End Date Kasandra Antunez DO [address] [place] [address] PCP - General Family Medicine 10/28/11 documented as of this encounter
--- OUTSIDE RECORDS SUMMARY | 2024-05-23 16:35 | External Medical Summary | Summary of Care ---
Author Name Unknown Organization [facility] Address [address] [place] [address] Phone [phone] Care Team Providers Care Cloud Administrator Name Role Phone MoKasandra handley Primary Care Provider Encounter Details Date Type Department Care Team (Late st Contact Info) Description 05/01/2024 Telephone Cardiology, 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 Mcelroy's schedule. Both she and Ruby are here on: Monday Arrive by 1:45 PMAppt at 2:00 PM (30 min) Ruby Blandon CRNP Please let me know if this appointment will work, and if I need to call patient, thank you. * Telephone Encounter - Valentina Gresham LPN - 05/01/2024 1:42 PM EDT Pt had ablation today with Dr. Mcelroy at [facility] Requires 4-6 week follow up with Dr. Mcelroy or SARITHA Castrejon when Dr. Mcelroy is in office documented in this encounter Plan of Treatment Upcoming Encounters Date Type Department Care Team (Late st Contact Info) Description 06/18/2024 2:00 PM EDT Office Visit Cardiology, [facility] [address] [place] [address] Ruby Blandon CRNP [address] [facility] [place] [address] 08/30/2024 2:30 PM EST Office Visit Cardiology, [facility] [address] [place] [address] Brian Anne MD [address] [place] [address] Scheduled Procedures Name Priority Associated Diagnoses Date/Ti me COLONOSCOPY FLEXIBLE PROXIMAL DIAGNOSTIC Recall History of colon polyps Health Maintenance Due Date Last Done Comments Zoster Vaccines (2 of 3) 02/01/2016 12/07/2015 Diabetic Eye Exam 11/23/2016 11/23/2015, 05/04/2011 Diabetic Foot Exam 03/23/2021 03/23/2020, 0 06/10/2019, 02/06/2018, Additional history exists Colonoscopy 05/19/2021 05/19/2016, 05/19/2016 COVID-19 Vaccine (2022- season) 2023 07/21/2023, 09/29/2022, 11/19/2021, Additional history [...] Referral 03/27/2025 03/27/2024, 2 Hgb 04/09/2025 04/09/2024, 0501/2024, 03/08/2024, Additional history exists Phosphate 04/09/2025 04/09/2024, [...] Documents on File Type Date Recorded Patient Sql Developer Dba Expl anation Power of Library Science Professor 04/08/2024 signed on 04/05/2024 POWER OF WOMENS HEALTH NURSE PRACTITIONER Advance Directives and Living Will 06/15/2022 ADVANCE DIRECTIVE / LIVING WILL Healthcare Agents on File Name Relationship Healthcare Agent Relationship Communication Rajeev "Reginald" Chronister Adult Child Health C are Sql Developer Dba (appointed verbally by patient or by statute hierarchy) Care Teams Cloud Administrator Relationship Specialty Start Date End Date Kasandra Antunez DO [address] [place] [address] PCP - General Family Medicine 10/28/11 documented as of this encounter
--- OUTSIDE RECORDS SUMMARY | 2024-05-23 16:35 | External Medical Summary | Summary of Care ---
Author Name Unknown Organization [facility] Address [address] [address] Phone [phone] Care Team Providers Care Eap Consultant Name Role Phone Kasandra Antunez DO Primary Care Provider Reason for Visit * Reason Onset Date Comments Medication Refill 05/16/2024 Encounter Details Date Type Department Care Team (Late st Contact Info) Description 05/16/2024 Refill Family Practice [facility] [place] [address] [facility] [place] [address] Kasandra Antunez DO [address] [facility] [place] [address] Paroxysmal atrial fibrillation (HCC); HTN, goal below [...] diastolic dysfunction 01/01/2024 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 [facility] states that when patient was discharged from the hospital- a script for Metoprolol 25mg was sent to them and now she's back on the 100mg again? Calling for clarification. Please advise. Thank you, Ryland Castorena, Sports Manager Senior Safety Management Consultant [facility] (Formerly [...] and medication before forwarding?yes Pharmacy: [facility] [address] Pending Prescriptions: Disp Refills Metoprolol Succinate [...] appointment Last date the medication was ordered: [id number] Is this request for a controlled substance?No [...] Description 06/18/2024 2:00 PM EDT [facility] [address] [address] Ruby Blandon CRNP [address] [place] [address] [place] [address] 08/30/2024 2:30 PM EST [facility] [address] [place] [address] Brian Anne MD [address] [place] [address] Scheduled Procedures Name Priority Associated Diagnoses Date/Ti [...] Documents on File Type Date Recorded Patient Transfer Clerk Expl anation Power of Wood Last Maker 04/08/2024 signed on 04/05/2024 POWER OF DIVING COACH Advance Directives and Living Will 06/15/2022 ADVANCE DIRECTIVE / LIVING WILL Healthcare Agents on File Name Relationship Healthcare Agent Relationship Communication Rajeev "Reginald" Chronister Adult Child Health C are Transfer Clerk (appointed verbally by patient or by statute hierarchy) Care Teams Eap Consultant Relationship Specialty Start Date End Date Kasandra Antunez DO [address] [place] [address] PCP - General Family Medicine 10/28/11 documented as of this encounter
--- OUTSIDE RECORDS SUMMARY | 2024-05-23 16:35 | External Medical Summary | Summary of Care ---
Author Name Unknown Organization [facility] Address [address] [place] [address] Phone [phone] Care Team Providers Care Urology Teacher Name Role Phone Kasandra Antunez DO Primary Care Provider Reason for Referral * Ancillary Services (Within 30 days (routine)) - Authorized Specialty Diagnoses / Procedures Referred By Lala hernandez Referred To Contact HOME CARE / Palliative Medicine Diagnoses S/P AV (atrioventricular) eduardo ablation Chronic heart failure with reduced ejection fraction and diastolic dysfunction (HCC) CKD (chronic kidney disease) stage 4, GFR 15-29 ml/min (HCC) Paroxysmal atrial fibrillation (HCC) Tachy-leeanne syndrome (HCC) Cardiac pacemaker in situ 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 [facility] * Evaluate & Treat - Unlimited Visits (Within 30 days (routine)) - Authorized Specialty Diagnoses / Procedures Referred By Lala hernandez Referred To Contact HOME CARE / Home Care Diagnoses S/P AV (atrioventricular) eduardo ablation Chronic heart failure with reduced ejection fraction and diastolic dysfunction (HCC) CKD (chronic kidney disease) stage 4, GFR 15-29 ml/min (HCC) Paroxysmal atrial fibrillation (HCC) Type 2 diabetes mellitus with hemoglobin A1c goal of less than 7.5% (HCC) Generalized weakness Kasandra Antunez DO [address] [place] [address] Referral ID Status Reason Start Date Expiration Date Visits Requested Visits Authorized [id number] Authorized Specialty Services Required 05/07/2024 [id number] Question Answer Referral Priority Within 30 days (routine) Where should this appointment be scheduled? [facility] Comments Documentation of [id number] Encounter Addendum Patient Name: Nancy Gabriel I certify that this patient is under my care and that I, or a nurse practitioner or physician's assistant passenger locomotive engineer working with me, had a [id number] encounter that meets the physician [id number] encounter requirements with this patient on: 05/07/2024 The encounter with the patient was in whole, or in part, for the following medical condition, which is the primary reason for home health care (List medical condition): Medication management I certify that, based on my findings, the following services are medically necessary home health services: Nursing and Physical Therapy, nutrition for new onset diabetes- discuss diet, To provide the following care/treatments: (All hospitalists not following the patient after discharge should complete this section): check vitals, physical therapy for generalized weakness after hospitalization Primary Care Physician to follow home care plan of care after discharge: [facility] My clinical findings support the need for the above services because: hospital D/c, recurrent hospitalizations Further, I certify that my clinical findings support that this patient is homebound (i.e. Absences from home require considerable and taxing effort and are for medical reasons or episcopal services or infrequently or of short duration when for other reason) because: CHF EF 15%, requires a lot of exertion Physician Signature: Date of Signature: Physician Printed Name: Kasandra Antunez DO Reason for Visit * Reason Onset Date Comments Hospital Follow-Up Hospital Follow-Up 05/10/2024 Encounter Details Date Type Department Care Team (Late st Contact Info) Description 05/07/2024 3:00 PM EDT Office Visit [facility] [place] [address] [facility] [place] [id number] Kasandra Antunez DO [address] [facility] [place] [address] Hospital discharge follow-up*; S/P AV (atrioventricular) eduardo ablation; Chronic heart failure with reduced ejection fraction and diastolic dysfunction (HCC); CKD (chronic kidney disease) stage 4, GFR 15-29 ml/min (HCC); Paroxysmal atrial fibrillation (HCC); Tachy-leeanne syndrome (HCC); Cardiac pacemaker in situ; 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 180 Tablet 3 04/24/2024 Active Additional Information Patient not taking.Reported on 05/03/2024 Metoprolol Succinate ER 25 MG Oral Tablet Extended Release 24 Hour (toPROL XL) Take 1 Tablet by mouth in the morning. Active Cephalexin 500 MG Oral CapsuleIndications: Cat bite of right wrist, initial encounter,Celluliti s of right upper extremity Take 1 Capsule by mouth in the morning and 1 Capsule at noon and 1 Capsule before bedtime. Do all this for 10 days. 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 [...] as of this encounter (statuses as of 05/10/2024) Resolved Problems Problem Noted Date Diagnosed Date Resolved Date Acute respiratory failure with hypoxia 10/08/2021 11/03/2021 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 [...] chronic kidney disease and hypertension 06/10/2019 08/21/20 Hearing loss 04/20/2016 07/21/2020 Paroxysmal SVT (supraventricular [...] as of this encounter (statuses as of 05/10/2024) Immunizations Name Administration Dates Next Due COVID-19 mRNA, LNP-s, No Pre serve, 2-Dose Series (Moderna) 11/19/2021,05/19/2021,04/21/2021 COVID-19, MRNA-LNP, 23-24, P F, 50 MCG/0.5 mL, 12 YRS AND ABOVE, IM (MODERNA-Spikevax) 07/21/2023 Covid-19, Mrna, Lnp-s, Pf, B ivalent, 30 Mcg, IM, 12 yrs and above (Pfizer) 09/29/2022 Pneumococcal Conjugate Vacc, 13 Valent (Prevnar) 08/03/2015 Pneumococcal Conjugate Vacci ne, 20-valent ([id number]) 04/11/2024 Pneumococcal Polysaccharide PPV23 (Pneumovax) 09/09/2013,10/19/2010,08/20/2007 Season [...] Sign Reading Time Taken Comments Blood Pressure 106/62 05/07/2024 2:54 PM EDT Pulse 100 05/07/2024 2:54 PM EDT Temperature 36.8 C (98.2 F) 05/07/2024 2:54 PM ED T Respiratory Rate 20 05/07/2024 2:54 PM EDT Oxygen Saturation 98% 05/07/2024 2:54 PM EDT Inhaled Oxygen Concentration - - Weight 68.5 kg (151 lb) 05/07/2024 2:54 PM EDT Height - - Body Mass Index 29.49 04/11/2024 11:14 AM EDT documented in this encounter Progress Notes * Kasandra Antunez, - 05/07/2024 3:13 PM EDT Images from the original note were not included. Subjective: Nancy Gabriel is a 78 year old female. Chief Complaint Patient presents with Hospital Follow-Up Hospital Follow-Up HPI: Admitted to [facility] 04/28-05/02/2024. [facility] TE 05/03/24. Hospital records, labs, studies, and dischargeinstructions reviewed with patient. Was feeling very tired and had difficulty getting up and walking, taken to hospital, worsening CHF with EF 15%, uncontrolled Afib with limited medication options, had ablation by Dr. Mcelroy, which was successful on second attempt- first attempt was discontinued due to equipment not working properly per granddaughter. Given IV lasix. Patient is present with her sister, and granddaughter who works in SNF in the [facility]. Her son lives with her currently and cares for her in the evening, works during the day. During the day they have a home care agency (non- medical) who stays with her during the day and dispenses medication. She also receives meals on wheels. Granddaughter is wondering if hospice would be appropriate, to have more care at home with patient.They report sundowning and wandering at night. Right now patient is awake and oriented, and capableof making her own decisions. We discussed pros and cons of hospice, and she is a candidate with worsening heart failure. I am hopeful that her heart function will improve some after ablation as persistent Afib, and AFRVR were drivers of this. If on hospice, the focus would be to keep her comfortable at home and not go to hospital, however she could change her mind. They are interested in having nurse come check vitals once weekly. Discussed home health, PT, OT also for now. Patient is not sure if she would like hospice or not. It is solely her decision. She would like to get more information,therefore I have ordered a hospice consult. Has been prediabetic, is now diabetic, discussed watching carbohydrates and sugars, requesting nutrition consult as well to discuss diabetic diet. At this time would not recommend medication given mild elevation A1c, still <7.5%, with room to improve diet, given other comorbidities, CKD, dementia, polypharmacy. Low dose GLP-1 may be good choice if affordable, or possibly low dose LA insulin ifA1c continues to increase PHM: Patient Active Problem List Diagnosis Hyperlipidemia [...] fraction and diastolic dysfunction (HCC) Amiodarone toxicity Type 2 diabetes mellitus with hemoglobin A1c goal of less than 7.5% ([facility]) Current Outpatient Medications Medication Sig Dispense Refill Metoprolol Succinate ER 25 MG Oral Tablet Extended Release 24 Hour (toPROL XL) Take 1 Tablet by mouth in the morning. Metoprolol Succinate ER 100 MG Oral Tablet Extended Release 24 Hour (toPROL XL) Take 1 Tablet by mouth in the morning and 1 Tablet before bedtime. (Patient not taking: Reported on 05/03/2024) 180 Tablet 3 Escitalopram Oxalate 20 MG Oral Tablet (Lexapro) Take 1 Tablet by mouth in the morning. 30 Tablet 5 Furosemide 20 MG Oral Tablet (Lasix) Take 1 Tablet by mouth in the morning. 90 Tablet 3 Accu-Chek Guide In Vitro Strip (Glucose Blood) [...] taking: Reported on 04/11/2024) 90 Tablet 3 Acetaminophen 325 MG Oral Tablet Take 1 Tablet by mouth every 6 hours as needed. Misc. Devices Accu-check guide glucometer kit and lancets E11.9 Use daily as directed 1 Each 0 Spacer/Aero-Holding Chambers SISI Use with inhaler. 1 Device 0 No current facility-administered medications for this visit. Review of patient's allergies indicates: Allergen Reactions Codeine Psych complications Objective: BP 106/62 | Pulse 100 | Temp 36.8 C (98.2 F) (Tympanic) | Resp 20 | Wt 68.5 kg (151 lb) | SpO2 98% | BMI 29.49 kg/m | BSA 1.7 m Physical Exam: General: alert, comfortable, obese, and oriented to person and place, answers questions appropriately Head: Normocephalic, No masses, lesions, tenderness or abnormalities Neck: supple, no adenopathy, no bruits, thyroid normal size, non-tender, without nodularity Heart: regular rate & rhythm, no gallops, S-1 normal, S-2 normal, S-3, and 2/6 systolic ejection low pitched blowing murmur aortic area Lungs: chest symmetric with normal AP diameter, no chest deformities noted, no chest wall tenderness, lungs clear to auscultation Pulses: carotid=2/4 w/o bruits Extremities: less than 2 second capillary refill, no joint deformities, effusion, or inflammation ASSESSMENT/PLAN:Right now patient is awake and oriented, and capable of making her own decisions. We discussed pros and cons of hospice, and she is a candidate with worsening heart failure. I am hopeful that her heart function will improve some after ablation as persistent Afib, and AFRVR were drivers of this. If on hospice, the focus would be to keep her comfortable at home and not go to hospital, however she could change her mind. They are interested in having nurse come check vitals once weekly. Discussed home health, PT, OT also for now. Patient is not sure if she would like hospice or not. It is solely her decision. She would like to get more information, therefore I have ordered a hospice consult. Hospital discharge follow-up (Primary) - DISCH MED RECON CUR MED LIS S/P AV (atrioventricular) eduardo ablation - HOME HEALTH REFERRAL OP - HOSPICE REFERRAL OP Chronic heart failure with reduced ejection fraction and diastolic dysfunction (HCC) - HOME HEALTH REFERRAL OP - HOSPICE REFERRAL OP CKD (chronic kidney disease) stage 4, GFR 15-29 ml/min ([facility]) - HOME HEALTH REFERRAL OP - HOSPICE REFERRAL OP Paroxysmal atrial fibrillation (HCC) - HOME HEALTH REFERRAL OP - HOSPICE REFERRAL OP Tachy-leeanne syndrome (HCC) - HOSPICE REFERRAL OP Cardiac pacemaker in situ - HOSPICE REFERRAL OP 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 At this time would not recommend medication given mild elevation A1c, still <7.5%, with room to improve diet, given other comorbidities, CKD, dementia, polypharmacy. Low dose GLP-1 may be good choice if affordable, or possibly low dose LA insulin ifA1c continues to increase RTC 3 months or as needed 50 min spent with patient, reviewing history, performing physical exam, reviewing labs, studies, specialist OVNs, and reports, educating and coordinating care, discussing treatment Kasandra Antunez DO documented in this encounter Nursing Notes * Pratibha Herrera LPN - 05/07/2024 2:48 PM EDT Nancy Gabriel presents for hospital follow up. Also, complaints of cat scratches on left forearm. Medications & HM reviewed. documented in this encounter Plan of Treatment Upcoming Encounters Date Type Department Care Team (Late st Contact Info) Description 06/18/2024 2:00 PM EDT Office Visit Cardiology, [facility] [address] [place] [address] Ruby Blandon CRNP [address] [place] [address] [place] [address] 08/30/2024 2:30 PM EST Office [facility], [facility] [place] [address] Brian Anne MD [address] [facility] [place] [address] Scheduled Procedures Name Priority Associated Diagnoses Date/Ti me COLONOSCOPY FLEXIBLE PROXIMAL DIAGNOSTIC Recall History of colon polyps Scheduled Referrals Name Type Priority Associated Diagnoses Orde r Schedule HOME HEALTH REFERRAL OP Referral Within 30 days (routine) S/P AV (atrioventricular) eduardo ablation Chronic heart failure with reduced ejection fraction and diastolic dysfunction (HCC) CKD (chronic kidney disease) stage 4, GFR 15-29 ml/min (HCC) Paroxysmal atrial fibrillation (HCC) Type 2 diabetes mellitus with hemoglobin A1c goal of less than 7.5% (HCC) Generalized weakness Ordered: 05/07/2024 HOSPICE REFERRAL OP Referral Within 30 days (routine) S/P AV (atrioventricular) eduardo ablation Chronic heart failure with reduced ejection fraction and diastolic dysfunction (HCC) CKD (chronic kidney disease) stage 4, GFR 15-29 ml/min (HCC) Paroxysmal atrial fibrillation (HCC) Tachy-leeanne syndrome (HCC) Cardiac pacemaker in situ 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, without behavioral disturbance (HCC) Type 2 diabetes mellitus with hemoglobin A1c goal of less than 7.5% (HCC) Generalized weakness Type 2 diabetes mellitus with stage 4 chronic kidney disease, without long-term current use of insulin (HCC) Ordered: 05/07/2024 Health Maintenance Due Date Last Done Comments [...] as of this encounter Visit Diagnoses Diagnosis Hospital discharge follow-up- Primary Other follow-up examination S/P AV (atrioventricular) eduardo ablation Other postprocedural status Chronic heart failure with reduced ejection fraction and diastolic dysfunction (HCC) CKD (chronic kidney disease) stage 4, GFR 15-29 ml/min (HCC) Chronic kidney disease, Stage IV (severe) Paroxysmal atrial fibrillation (HCC) Atrial fibrillation Tachy-leeanne syndrome (HCC) Sinoatrial node dysfunction Cardiac pacemaker in situ 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, without behavioral disturbance (HCC) Type 2 diabetes mellitus with hemoglobin A1c goal of less than 7.5% (HCC) Generalized weakness Other malaise and fatigue Type 2 diabetes mellitus with stage 4 chronic kidney disease, without long-term current use of insulin (HCC) documented in this encounter Advance Directives Documents on File Type Date Recorded Patient Bill Cutter Expl anation Power of Auditor Medical Claims 04/08/2024 signed on 04/05/2024 POWER OF ACCOUNTS PAYABLE PROCESSOR Advance Directives and Living Will 06/15/2022 ADVANCE DIRECTIVE / LIVING WILL Healthcare Agents on File Name Relationship Healthcare Agent Relationship Communication Rajeev Ritter" Chronister Adult Child Health C are Bill Cutter (appointed verbally by patient or by statute hierarchy) Care Teams Urology Teacher Relationship Specialty Start Date End Date Kasandra Antunez DO [facility] [place] [address] [place] [address] PCP - General Family Medicine 10/28/11 documented as of this encounter
--- NOTE | 2024-05-23 18:57 | Ultrasound Report ---
ULTRASOUND OF THE CAROTID ARTERIES CLINICAL HISTORY: dizziness TECHNIQUE: Real-time, grayscale, and color Doppler sonography of the bilateral carotid arteries is pe rformed. Images are reviewed in the transverse and longitudinal planes. COMPARISON: Comparison is made to carotid ultrasound 02/23/2020 FINDINGS: The carotid arteries are patent bilaterally and demonstrate antegrade flow. There is mild atheroscler otic plaque on the right and mild atherosclerotic plaque on the left. Normal doppler arterial wavefor ms are seen throughout. Velocity measurements are listed below. Common carotid peak systolic velocity (cm/sec): RIGHT: 41 LEFT: 52 ICA peak systolic velocity (cm/sec): RIGHT: 40 LEFT: 41 ICA/CC peak systolic ratio: RIGHT: 0.98 LEFT: 0.79 Antegrade flow was shown in the vertebral arteries. The external carotid arteries are patent. IMPRESSION: 1. There is no sonographic evidence of hemodynamically significant stenosis in the right or left car otid arterial system. 2. Antegrade flow is shown in the vertebral arteries. Society of Radiologists in Ultrasound consensus guidelines: Normal: ICA PSV is <125 cm/sec and no plaque or intimal thickening is visible sonographically additional criteria include ICA/CCA PSV ratio <2.0 and ICA EDV <40 cm/sec <50% ICA stenosis: ICA PSV is <125 cm/sec and plaque or intimal thickening is visible sonographically additional criteria include ICA/CCA PSV ratio <2.0 and ICA EDV <40 cm/sec 50-69% ICA stenosis: ICA PSV is 125-230 cm/sec and plaque is visible sonographically additional criteria include ICA/CCA PSV ratio of 2.0-4.0 and ICA EDV of 40-100 cm/sec ?70% ICA stenosis but less than near occlusion: ICA PSV is >230 cm/sec and visible plaque and luminal narrowing are seen at villalta-scale and color Dopp ler ultrasound (the higher the Doppler parameters lie above the threshold of 230 cm/sec, the greater the likelihood of severe disease) additional criteria include ICA/CCA PSV ratio >4 and ICA EDV >100 cm/sec ACT 112: Negative or not required by law. Electronically signed by: Rd Adams M.D. 05/23/2024 6:55 PM
[2024-05-23] MEDS ORDERED: ACETAMINOPHEN 325 MG TAB PO PRN (19:12)
[2024-05-23] MEDS ORDERED: GLUCOSE 40% GEL 15 GM TUBE PO PRN (19:12)
[2024-05-23] MEDS ORDERED: CARBOHYDRATES FOR HYPOGLYCEMIA PO PRN (19:12)
[2024-05-23] MEDS ORDERED: DEXTROSE 50% 50 ML SYRINGE IV PRN (19:12)
[2024-05-23] MEDS ORDERED: POLYETHYLENE (MIRALAX) 17 GM PACK PO PRN (19:12)
[2024-05-23] MEDS ORDERED: GLUCOSE 10 TAB/TUBE PO PRN (19:12)
[2024-05-23] MEDS ORDERED: GLUCAGON FOR INJ 1 MG VIAL SQ PRN (19:12)
[2024-05-23 19:37] LABS: Adenovirus PCR Not Detected (NotDetected); Bordetella parapertussis PCR Not Detected (NotDetected); Bordetella pertussis PCR Not Detected (NotDetected); Chlamydia pneumoniae PCR Not Detected (NotDetected); Coronavirus 229E PCR Not Detected (NotDetected); Coronavirus CoV-2 (COVID19)PCR Not Detected (NotDetected); Coronavirus HKU1 PCR Not Detected (NotDetected); Coronavirus NL63 PCR Not Detected (NotDetected); Coronavirus OC43PCR Not Detected (NotDetected); Human Metapneumovirus PCR Not Detected (NotDetected); Influenza A PCR Not Detected (NotDetected); Influenza B PCR Not Detected (NotDetected); Mycoplasma pneumoniae PCR Not Detected (NotDetected); Parainfluenza Virus 1 PCR Not Detected (NotDetected); Parainfluenza Virus 2 PCR Not Detected (NotDetected); Parainfluenza Virus 3 PCR Not Detected (NotDetected); Parainfluenza Virus 4 PCR Not Detected (NotDetected); Respiratory Syncytial VirusPCR Not Detected (NotDetected); Rhinovirus/Enterovirus PCR Not Detected (NotDetected)
[2024-05-23] MEDS: PROMETHAZINE HCL 6.25 MG in SODIUM CHLORIDE 0.9% 50 ML IV PRN (20:39)
[2024-05-23] MEDS: APIXABAN 2.5 MG TAB PO SCH (20:45)
[2024-05-23] MEDS: ATORVASTATIN 40 MG TAB PO SCH (20:46)
[2024-05-23] MEDS: DOCUSATE SODIUM 100 MG CAP PO SCH (20:46)
[2024-05-23] MEDS: FAMOTIDINE 20 MG TAB PO SCH (20:47)
[2024-05-23] MEDS: INSULIN ASPART PER UNIT CHARGE SC SCH (20:50)
[2024-05-23] MEDS ORDERED: MELATONIN 3 MG TAB PO PRN (21:00)
--- NOTE | 2024-05-23 22:28 | Electrocardiogram Report ---
Test Reason : Blood Pressure : / mmHG Vent. Rate : 091 BPM Atrial Rate : 089 BPM P-R Int : 000 ms QRS Dur : 132 ms QT Int : 426 ms P-R-T Axes : 000 117 -67 degrees QTc Int : 523 ms Ventricular-paced rhythm Abnormal ECG When compared with ECG of 01-MAY-2024 14:49, Vent. rate has increased BY 10 BPM Confirmed by Marvel Granados ([id number]) on 05/23/2024 10:28:49 PM Referred By: REFERRED SELF Confirmed By:Marvel Granados
[2024-05-23] MEDS: ALBUTEROL HFA 8 GM INHALER INH SCH (22:37)
[2024-05-24] MEDS: LEVOTHYROXINE SODIUM 88 MCG TABLET PO SCH (05:51)
[2024-05-24 06:23] LABS: Hematocrit (blood only) 32.6 % (37.0-47.0); Hemoglobin 10.2 g/dl (12.0-16.0); Mean Corpuscular Hemoglobin 31.8 pg (25.0-34.0); Mean Corpuscular Hgb Conc 31.3 g/dL (32.0-36.0); Mean Corpuscular Volume 101.6 fL (80.0-100.0); Platelet Count 275 K/uL (130-400); RDW Coefficient of Variation 17.2 % (11.5-14.5); RDW Standard Deviation 65.1 fL (36.4-46.3); Red Blood Count 3.21 M/uL (4.20-5.40); White Blood Count 10.22 K/ul (4.8-10.8)
[2024-05-24 07:07] LABS: BUN Creatinine Ratio 13.6 (10-20); Chol HDL Ratio 2.4 (0-5); Creatinine Clr Calc Pharmacy 25.2 ml/min; Est GFR (African American) 31.6 ml/min; Est GFR (Non-African American) 27.2 ml/min; Magnesium 1.8 mg/dl (1.7-2.4); Potassium 3.7 mmol/L (3.5-5.1)
[2024-05-24] MEDS: ISOSORBIDE MONO EXTENDED REL 30 MG TABCR PO SCH (07:51)
[2024-05-24] MEDS: CLOPIDOGREL BISULFATE 75 MG TAB PO SCH (07:52)
[2024-05-24] MEDS: allopurinoL 100 MG TAB PO SCH (07:52)
[2024-05-24] MEDS: MAGNESIUM OXIDE 400 MG TAB PO SCH (07:52)
[2024-05-24] MEDS: CALCITRIOL 0.25 MCG CAPSULE PO SCH (07:52)
[2024-05-24] MEDS: ESCITALOPRAM OXALATE 20 MG TAB PO SCH (07:52)
[2024-05-24] MEDS: METOPROLOL SUCC 25MG EXT REL TAB PO SCH (07:53)
[2024-05-24] MEDS: FUROSEMIDE 20 MG TAB PO SCH (07:53)
[2024-05-24 08:04] LABS: Estimated Average Glucose 166 mg/dl; Hemoglobin A1C 7.4 % (4.5-5.6)
--- NOTE | 2024-05-24 09:57 | OB/GYN Consultation ---
Date of Consultation May 24, 2024 Assessment & Plan (1) Thickened endometrium: Will need follow up in office for ultrasound and endometrial biopsy to r/o endometrial Ca. History of Present Illness Reason for Consultation: mild thickening of endometrial lining on CT scan Requesting Physician: Dr Lara Attending Physician: Aaron Martinez MD History of Present Illness 78 F [id number] post menopausal who presents to the hospital with dizziness and medical complaints. She had a CT of abdomen with an incidental finding of mild thickening of the endometrial lining. x1 in the past. No hormone therapy. No post-menopausal bleeding. No abdominal pain. Allergies Allergy/AdvReac Type Severity Reaction Status Date / Time codeine Allergy Intermediate PSCHO Verified 05/23/24 15:30 COMPLICATIONS PER [facility] Home Medications Medication Instructions Recorded Confirmed Type allopurinol 100 mg tablet 100 mg PO QAM 06/11/19 05/23/24 History clopidogrel 75 mg tablet 75 mg PO QAM #30 tabs 02/24/20 05/23/24 Rx nitroglycerin 0.4 mg sublingual 0.4 mg sublingual UD PRN chest 05/11/22 05/23/24 Rx tablet (Nitrostat) pain #10 tabs furosemide 20 mg tablet 20 mg PO DAILY 09/18/22 05/23/24 History atorvastatin 40 mg tablet 40 mg PO HS 01/06/23 05/23/24 History famotidine 20 mg tablet 20 mg PO AMHS 01/06/23 05/23/24 History albuterol sulfate 90 mcg/actuation 2 puff inhalation QID 03/28/23 05/23/24 History aerosol inhaler (Ventolin HFA) levothyroxine 88 mcg tablet 88 mcg PO QAM 03/28/23 05/23/24 History ondansetron 4 mg disintegrating 4 mg translingual Q8 PRN n/v 03/28/23 05/23/24 History tablet apixaban 2.5 mg tablet (Eliquis) 2.5 mg PO BID 02/29/24 05/23/24 History calcitriol 0.5 mcg capsule 0.5 mcg PO QAM 02/29/24 05/23/24 History docusate sodium 100 mg capsule 100 mg PO BID 03/29/24 05/23/24 History isosorbide mononitrate 30 mg 30 mg PO QAM 03/29/24 05/23/24 History tablet,extended release 24 hr magnesium oxide 400 mg (241.3 mg 400 mg PO DAILY #30 tabs 03/31/24 05/23/24 Rx magnesium) tablet escitalopram oxalate 20 mg tablet 20 mg PO QAM 04/27/24 05/23/24 History metoprolol succinate 25 mg 25 mg PO QAM 30 days #30 tabs 05/02/24 05/23/24 Rx tablet,extended release 24 hr Patient History Medical History Pneumonia Acute systolic (congestive) heart failure LBBB (left bundle branch block) History of adenomatous polyp of colon Degenerative disc disease, cervical Hearing loss MELQUIADES (generalized anxiety disorder) GERD without esophagitis Vitamin D deficiency Hypertensive cardiomegaly Surgical History History of D&C History of excision of lesion Back - Dr. Tucker History of carpal tunnel surgery History of arthroplasty of left knee Family History Other Diabetes Heart disease Social History Smoking Status: Never smoker Second Hand Exposure: No; Do You Dip or Chew Tobacco: No; Hx Alcohol Use: No Hx Substance Use: No Preferred Language: [place]ican Communication Ability: Effective Hearing Ability: Hard of Hearing Enamel Buffer Required: No Beliefs That Will Affect Care: None marital status: / Current Living Situation: Alone Current Living Situation Comment: Son stays at nighttime and caregivers come throughout the day Other Information That Helps Us Care for You: No Feels Safe at Home: Yes Safety Concerns: Feels Safe At This Time Assistive Devices: Denture - Upper, Denture - Lower, Glasses and Hearing Aid - Bilateral Review of Systems Review of Systems: All systems reviewed & are unremarkable except as noted in HPI & below Physical Exam Constitutional: WD/WN, vitals as above Respiratory: normal respiratory effort, lungs clear to auscultation Cardiovascular: Rate/Rhythm: regular rate and regular rhythm Musculoskeletal: Extremities: extremities normal to inspection Skin: no rashes, warm and dry Neurologic: patellar DTR's 2+ bilat, sensation intact Psychiatric: poor historian. evidence of dementia noted. Results & Data Vital Signs (Past 12 Hours) Vital Signs Temp Pulse Pulse Resp BP Pulse Ox O2 Del Method 05/24/24 08:16 36.7 C 82 20 110/56 L 92 Room Air 05/24/24 07:13 78 16 94 Room Air 05/24/24 02:25 36.6 C 89 18 114/73 94 Room Air 05/23/24 22:37 16 92 Room Air 05/23/24 22:35 36.8 C 77 18 116/68 92 Room Air 05/23/24 22:08 79 Laboratory Results 05/23/24 05/23/24 05/23/24 10:42 11:34 11:36 WBC 9.79 RBC 3.53 L Hgb 11.3 L Hct 35.6 L MCV 100.8 H MCH 32.0 MCHC 31.7 L RDW Std Deviation 64.1 H RDW Coeff of Etta 17.2 H Plt Count 316 MPV 10.8 Immature Gran % (Auto) 0.5 Neut % (Auto) 63.1 Lymph % (Auto) 25.1 [place] % (Auto) 9.9 Eos % (Auto) 0.8 Baso % (Auto) 0.6 Neut # (Auto) 6.17 Lymph # (Auto) 2.46 [place] # (Auto) 0.97 H Eos # (Auto) 0.08 Baso # (Auto) 0.06 Immature Gran # (Auto) 0.05 PT 11.5 INR 1.1 Sodium 141 Potassium 4.0 Chloride 105 Carbon Dioxide 25 Anion Gap 11 BUN 29 H Creatinine 1.85 H Est Cr Clr Drug Dosing 24.3 Est GFR ( Amer) 29.7 Est GFR (Non-Af Amer) 25.6 BUN/Creatinine Ratio 15.7 Glucose 190 H POC Glucose Estimat Average Glucose Hemoglobin A1c Lactate 1.3 Calcium 9.6 Magnesium 1.8 Total Bilirubin 1.0 AST 13 ALT 8 Alkaline Phosphatase 137 H Troponin I High Sens 11.8 Total Protein 7.1 Albumin 4.2 Globulin 2.9 Albumin/Globulin Ratio 1.4 Triglycerides Cholesterol LDL Cholesterol, Calc VLDL Cholesterol, Calc HDL Cholesterol Cholesterol/HDL Ratio Urine Color Urine Appearance Urine pH Ur Specific [place] Urine Protein Urine Glucose (UA) Urine Ketones Urine Blood Urine Nitrite Urine Bilirubin Urine Urobilinogen Ur Leukocyte Esterase Urine WBC (Auto) Urine RBC (Auto) U Hyaline Cast (Auto) U Epithel Cells (Auto) Urine Bacteria (Auto) Adenovirus (PCR) B. pertussis DNA (PCR) B.parapertussis DNA PCR C. pneumoniae DNA (PCR) Coronavirus OC43 (PCR) Coronavirus HKU1 (PCR) Coronavirus 229E (PCR) SARS-CoV-2 (PCR) Coronavirus NL63 (PCR) Human Metapneumovir PCR Influenza Type A (PCR) Influenza Type B (PCR) M. pneumoniae (PCR) Parainfluenza 1 (PCR) Parainfluenza 2 (PCR) Parainfluenza 3 (PCR) Parainfluenza 4 (PCR) RSV (PCR) Entero/Rhino (PCR) 05/23/24 05/23/24 05/23/24 12:25 18:20 20:44 WBC RBC Hgb Hct MCV MCH MCHC RDW Std Deviation RDW Coeff of Etta Plt Count MPV Immature Gran % (Auto) Neut % (Auto) Lymph % (Auto) [place] % (Auto) Eos % (Auto) Baso % (Auto) Neut # (Auto) Lymph # (Auto) [place] # (Auto) Eos # (Auto) Baso # (Auto) Immature Gran # (Auto) PT INR Sodium Potassium Chloride Carbon Dioxide Anion Gap BUN Creatinine Est Cr Clr Drug Dosing Est GFR ( Amer) Est GFR (Non-Af Amer) BUN/Creatinine Ratio Glucose POC Glucose 144 H Estimat Average Glucose Hemoglobin A1c Lactate Calcium Magnesium Total Bilirubin AST ALT Alkaline Phosphatase Troponin I High Sens Total Protein Albumin Globulin Albumin/Globulin Ratio Triglycerides Cholesterol LDL Cholesterol, Calc VLDL Cholesterol, Calc HDL Cholesterol Cholesterol/HDL Ratio Urine Color Yellow Urine Appearance Cloudy A Urine pH 5.5 Ur Specific [place] 1.014 Urine Protein Trace H Urine Glucose (UA) Negative Urine Ketones Negative Urine Blood Negative Urine Nitrite Negative Urine Bilirubin Negative Urine Urobilinogen Negative Ur Leukocyte Esterase Trace H Urine WBC (Auto) 6-10 H Urine RBC (Auto) 0-2 U Hyaline Cast (Auto) 6-10 H U Epithel Cells (Auto) 11-20 H Urine Bacteria (Auto) None Seen Adenovirus (PCR) Not Detected B. pertussis DNA (PCR) Not Detected B.parapertussis DNA PCR Not Detected C. pneumoniae DNA (PCR) Not Detected Coronavirus OC43 (PCR) Not Detected Coronavirus HKU1 (PCR) Not Detected Coronavirus 229E (PCR) Not Detected SARS-CoV-2 (PCR) Not Detected Coronavirus NL63 (PCR) Not Detected Human Metapneumovir PCR Not Detected Influenza Type A (PCR) Not Detected Influenza Type B (PCR) Not Detected M. pneumoniae (PCR) Not Detected Parainfluenza 1 (PCR) Not Detected Parainfluenza 2 (PCR) Not Detected Parainfluenza 3 (PCR) Not Detected Parainfluenza 4 (PCR) Not Detected RSV (PCR) Not Detected Entero/Rhino (PCR) Not Detected 05/24/24 05/24/24 05:34 08:36 WBC 10.22 RBC 3.21 L Hgb 10.2 L Hct 32.6 L MCV 101.6 H MCH 31.8 MCHC 31.3 L RDW Std Deviation 65.1 H RDW Coeff of Etta 17.2 H Plt Count 275 MPV 11.0 Immature Gran % (Auto) Neut % (Auto) Lymph % (Auto) [place] % (Auto) Eos % (Auto) Baso % (Auto) Neut # (Auto) Lymph # (Auto) [place] # (Auto) Eos # (Auto) Baso # (Auto) Immature Gran # (Auto) PT INR Sodium 142 Potassium 3.7 Chloride 108 H Carbon Dioxide 25 Anion Gap 9 BUN 24 H Creatinine 1.76 H Est Cr Clr Drug Dosing 25.2 Est GFR ( Amer) 31.6 Est GFR (Non-Af Amer) 27.2 BUN/Creatinine Ratio 13.6 Glucose 118 H POC Glucose 178 H Estimat Average Glucose 166 Hemoglobin A1c 7.4 H Lactate Calcium 9.0 Magnesium 1.8 Total Bilirubin AST ALT Alkaline Phosphatase Troponin I High Sens Total Protein Albumin Globulin Albumin/Globulin Ratio Triglycerides 136 Cholesterol 83 LDL Cholesterol, Calc 21 VLDL Cholesterol, Calc 27 HDL Cholesterol 35 Cholesterol/HDL Ratio 2.4 Urine Color Urine Appearance Urine pH Ur Specific [place] Urine Protein Urine Glucose (UA) Urine Ketones Urine Blood Urine Nitrite Urine Bilirubin Urine Urobilinogen Ur Leukocyte Esterase Urine WBC (Auto) Urine RBC (Auto) U Hyaline Cast (Auto) U Epithel Cells (Auto) Urine Bacteria (Auto) Adenovirus (PCR) B. pertussis DNA (PCR) B.parapertussis DNA PCR C. pneumoniae DNA (PCR) Coronavirus OC43 (PCR) Coronavirus HKU1 (PCR) Coronavirus 229E (PCR) SARS-CoV-2 (PCR) Coronavirus NL63 (PCR) Human Metapneumovir PCR Influenza Type A (PCR) Influenza Type B (PCR) M. pneumoniae (PCR) Parainfluenza 1 (PCR) Parainfluenza 2 (PCR) Parainfluenza 3 (PCR) Parainfluenza 4 (PCR) RSV (PCR) Entero/Rhino (PCR) Diagnostic Findings CT with EML 9mm. no ascites noted. No lymphadenopathy
[2024-05-24] MEDS: LORazepam 0.5 MG TAB PO PRN (13:00)
--- NOTE | 2024-05-24 14:12 | Magnetic Resonance Report ---
Brain MRI WITHOUT CONTRAST HISTORY: vision loss, dizziness TECHNIQUE: Multiplanar multisequence MRI of the brain was performed without the use of contrast. COMPARISON STUDY: Head CT 05/23/2024. Brain MRI 06/15/2020. FINDINGS: Brain parenchyma: There is age-related involutional change noting advanced confluent subcortical and periventricular microangiopathic disease. A focus of right frontoparietal encephalomalacia is consist ent with an old MCA territory infarct. This remains unchanged. There is no hemorrhage or mass effect. There is no restricted diffusion to suggest acute ischemia. Morgan-white matter differentiation is pre served. No extra-axial fluid collection is seen. The cerebellar tonsils are normal in configuration. Ventricles, sulci, and cisterns: Prominent secondary to involutional change. Pituitary and sella: Unremarkable. Intracranial vasculature: Normal flow voids are maintained at the skull base. Orbits: The bony orbits are grossly intact. Orbital contents are normal in appearance. Sinuses and mastoids: Clear. Calvarium: Unremarkable. Cervical cord: Partially visualized cervical spinal cord is normal in morphology and signal intensity . IMPRESSION: Senescent and chronic changes as above with no acute intracranial abnormality. ACT 112: Negative or not required by law. Electronically signed by: Alex Rouse M.D. 05/24/2024 2:11 PM
--- NOTE | 2024-05-24 15:52 | Hospitalist Progress Note ---
Date of Service May 24, 2024 Assessment & Plan (1) Dizziness: (2) Visual changes: (3) Prolonged QT interval: (4) Type 2 diabetes mellitus: (5) Atrial fibrillation: (6) HTN (hypertension): (7) Chronic CHF: Plan This is a 78-year-old female who has a significant past medical history of nonischemic cardiomyopathy, chronic systolic and diastolic CHF, TBS status post PPM, permanent atrial fibrillation, CKD stage IV, prediabetes, HTN, HLD, history of CVA, dementia, GERD and anxiety who presents to ED due to dizziness and increased confusion. Dizziness with associate n/v described as vertiginous in nature, not presyncope with associated blurred vision Remained stable in medical telemetry unit Dizziness could be secondary to dehydration and hypotension doubt any vestibular component given the history sx have since resolved since arriving to ED Blood pressure remains on the lower side and she is much better with the symptoms CT of the head and carotid ultrasound have been unremarkable MRI of the brain did not show any acute intracranial abnormality-it did show age-related changes She had an echo 04/28/24 which revealed LVEF severely reduced < 25%, LA moderately dilated, moderate MR, mild TR orthostatics, pacer interrogation Will observe her overnight and get PT and OT evaluation prior to discharge likely tomorrow Dementia sisters at bedside report recent dx feel memory has been declining, she also has been having visual hallucinations for several weeks MRI ordered, consider neuro eval based on that History of dementia without any acute delirium [employer] consult by Abnormal CT a/p: Mild thickening of the endometrium measuring 9 mm. This is considered pathologic in a postmenopausal female. Follow-up nonemergent gynecologic consultation recommended. 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 Mcelroy permanent atrial fib HTN continue Eliquis, Imdur, Lasix and metoprolol Denies any acute symptoms Hx of CVA on statin, plavix, eliquis DVT ppx: eliquis DNR/DNI PCP: Kasandra Antunez Dispo: admit to [facility] for dizziness eval, possible discharge tomorrow Admission and Anticipated Discharge Date Admission Date: May 24, 2024 Subjective 05/24/2024 The patient was seen and examined in medical telemetry unit in presence of the daughter She was admitted with dizziness which has resolved Has been waiting for MRI of the brain Denies any significant symptoms Will get PT and OT evaluation prior to discharge maybe tomorrow Review of Systems Review of Systems: All systems reviewed and are unremarkable except as noted below Physical Exam Physical Exam: Lying in bed without any acute distress Constitutional: well developed and well nourished; not ill appearing Eyes: PERRL, conjunctivae normal, anicteric sclerae ENMT: external ear and nose normal, oropharynx normal Neck: trachea midline, no thyromegaly Respiratory: no respiratory distress Auscultation: lungs clear to auscultation bilaterally Cardiovascular: Rate/Rhythm: regular rate and regular rhythm; not tachycardic Heart Sounds: normal S1 and normal S2 Extremities: no edema Gastrointestinal (Abdomen): Inspection/Auscultation: normal bowel sounds; abdomen not distended Percussion/Palpation: abdomen soft; abdomen nontender Musculoskeletal: No acute arthritis involving any of the joints Neurologic: normal touch/pain/proprioception and moves all extremities; no focal motor deficits Psychiatric: A+Ox3, euthymic affect Lymphatic: no cervical or axillary lymphadenopathy Results & Data Results & Data Vital Signs (Past 12 Hours) Vital Signs Temp Pulse Resp BP Pulse Ox O2 Del Method 05/24/24 15:03 36.7 C 86 18 108/72 97 Room Air 05/24/24 14:58 78 16 94 Room Air 05/24/24 11:31 72 16 96 Room Air 05/24/24 11:05 36.4 C L 86 18 116/69 97 Room Air 05/24/24 08:16 36.7 C 82 20 110/56 L 92 Room Air 05/24/24 07:13 78 16 94 Room Air Laboratory Results Short CBC 05/24/24 Range/Units 05:34 WBC 10.22 (4.8-10.8) K/ul Hgb 10.2 L (12.0-16.0) g/dl Hct 32.6 L (37.0-47.0) % Plt Count 275 (130-400) K/uL BMP 05/24/24 05:34 Sodium 142 Potassium 3.7 Chloride 108 H Carbon Dioxide 25 BUN 24 H Creatinine 1.76 H Glucose 118 H Calcium 9.0 Medications Administered Current Inpatient Medications Acetaminophen (Acetaminophen 325 Mg Tab) 650 mg PO Q4H PRN PRN Reason: Pain or Fever Stop: 06/22/24 19:11 Albuterol (Albuterol Hfa 8 Gm Inhaler) 2 puffs INH QIDR ALYSSA Stop: 06/22/24 20:59 Last Admin: 05/24/24 14:57 Dose: 2 puffs Allopurinol (Allopurinol 100 Mg Tab) 100 mg PO QAM [facility] Stop: 06/23/24 08:59 Last Admin: 05/24/24 07:52 Dose: 100 mg Apixaban (Apixaban 2.5 Mg Tab) 2.5 mg PO BID ALYSSA Stop: 06/22/24 20:59 Last Admin: 05/24/24 07:51 Dose: 2.5 mg Atorvastatin Calcium (Atorvastatin 40 Mg Tab) 40 mg PO HS [facility] Stop: 06/22/24 20:59 Last Admin: 05/23/24 20:46 Dose: 40 mg Calcitriol (Calcitriol 0.25 Mcg Capsule) 0.5 mcg PO QAM [facility] Stop: 06/23/24 08:59 Last Admin: 05/24/24 07:52 Dose: 0.5 mcg Clopidogrel Bisulfate (Clopidogrel Bisulfate 75 Mg Tab) 75 mg PO QAM [facility] Stop: 06/23/24 08:59 Last Admin: 05/24/24 07:52 Dose: 75 mg Dextrose (Dextrose 50% 50 Ml Syringe) 25 - 50 ml IV UD PRN; Protocol PRN Reason: Hypoglycemia Protocol Stop: 06/22/24 19:11 Docusate Sodium (Docusate Sodium 100 Mg Cap) 100 mg PO BID [facility] Stop: 06/22/24 20:59 Last Admin: 05/24/24 07:52 Dose: 100 mg Escitalopram Oxalate (Escitalopram Oxalate 20 Mg Tab) 20 mg PO QAM [facility] Stop: 06/23/24 08:59 Last Admin: 05/24/24 07:52 Dose: 20 mg Famotidine (Famotidine 20 Mg Tab) 20 mg PO AMHS ALYSSA Stop: 06/22/24 20:59 Last Admin: 05/24/24 07:52 Dose: 20 mg Furosemide (Furosemide 20 Mg Tab) 20 mg PO DAILY ALYSSA Stop: 06/23/24 08:59 Last Admin: 05/24/24 07:53 Dose: 20 mg Glucagon (Glucagon For Inj 1 Mg Vial) 1 mg SQ UD PRN; Protocol PRN Reason: Hypoglycemia Protocol Stop: 06/22/24 19:11 Glucose (Glucose 40% Gel 15 Gm Tube) 15 - 30 gm PO UD PRN; Protocol PRN Reason: Hypoglycemia Protocol Stop: 06/22/24 19:11 Glucose (Glucose 10 Tab/Tube) 4 - 8 tab PO UD PRN; Protocol PRN Reason: Hypoglycemia Treatment Stop: 06/22/24 19:11 Promethazine HCl 6.25 mg/ (Sodium Chloride) 50.25 mls @ 201 mls/hr IV Q6H PRN PRN Reason: Nausea And Vomiting Stop: 06/22/24 19:11 Last Infusion: 05/23/24 21:06 Dose: Infused Insulin Aspart (Insulin Aspart Per Unit Charge) 0 units SC [facility] Stop: 06/22/24 20:59 Last Admin: 05/24/24 12:45 Dose: 3 units Isosorbide Mononitrate (Isosorbide [place] Extended Rel 30 Mg Tabcr) [facility] Stop: 06/23/24 08:59 Last Admin: 05/24/24 07:51 Dose: 30 mg Levothyroxine Sodium (Levothyroxine Sodium 88 Mcg Tablet) 88 mcg PO DAILYBB [facility] Stop: 06/23/24 06:29 Last Admin: 05/24/24 05:51 Dose: 88 mcg Magnesium Oxide (Magnesium Oxide 400 Mg Tab) 400 mg PO DAILY [facility] Stop: 06/23/24 08:59 Last Admin: 05/24/24 07:52 Dose: 400 mg Melatonin (Melatonin 3 Mg Tab) 6 mg PO HS PRN PRN Reason: Sleep Stop: 06/22/24 20:59 Metoprolol Succinate (Metoprolol Succ 25mg Ext Rel Tab) 25 mg PO QAM [facility] Stop: 06/23/24 08:59 Last Admin: 05/24/24 07:53 Dose: 25 mg Miscellaneous (Carbohydrates For Hypoglycemia ) 15 - 30 gm PO UD PRN PRN Reason: Hypoglycemia Protocol Stop: 06/22/24 19:11 Polyethylene Glycol (Polyethylene (Miralax) 17 Gm Pack) 17 gm PO DAILY PRN PRN Reason: Constipation Stop: 06/22/24 19:11 (4) Type 2 diabetes mellitus Diabetes mellitus usp insulin use: without usp use Diabetes mellitus complication status: with kidney complications Diabetes mellitus complication detail: with chronic kidney disease Chronic kidney disease stage: stage 3 (moderate) Qualified Code(s): 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 (6) HTN (hypertension) 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 type: essential hypertension Qualified Code(s): I10 - Essential (primary) hypertension
--- NOTE | 2024-05-24 19:01 | Electrocardiogram Report ---
Test Reason : Blood Pressure : / mmHG Vent. Rate : 095 BPM Atrial Rate : 093 BPM P-R Int : 000 ms QRS Dur : 152 ms QT Int : 460 ms P-R-T Axes : 000 -89 070 degrees QTc Int : 578 ms Suspect unspecified pacemaker failure Atrial fibrillation with occasional ventricular-paced complexes and with premature ventricular or chester rrantly conducted complexes Left axis deviation Right bundle branch block Inferior infarct , age undetermined Anterolateral infarct , age undetermined Abnormal ECG When compared with ECG of 23-MAY-2024 10:13, Vent. rate has increased BY 4 BPM Confirmed by Marvel Granados ([id number]) on 05/24/2024 7:01:24 PM Referred By: REFERRED SELF Confirmed By:Marvel Granados
[2024-05-25 07:32] LABS: Basophils # (auto) 0.05 K/uL (0.00-0.20); Basophils % (auto) 0.4 %; Eosinophils # (auto) 0.14 K/uL (0.00-0.50); Eosinophils % (auto) 1.3 %; Hematocrit (blood only) 33.4 % (37.0-47.0); Hemoglobin 10.3 g/dl (12.0-16.0); Immature Granulocytes # (auto) 0.06 K/uL (0.01-0.20); Immature Granulocytes % (auto) 0.5 %; Lymphocytes # (auto) 1.68 K/uL (1.20-3.40); Lymphocytes % (auto) 15.1 %; Mean Corpuscular Hemoglobin 31.8 pg (25.0-34.0); Mean Corpuscular Hgb Conc 30.8 g/dL (32.0-36.0); Mean Corpuscular Volume 103.1 fL (80.0-100.0); Monocytes # (auto) 1.24 K/uL (0.11-0.59); Monocytes % (auto) 11.1 %; Neutrophils # (auto) 7.97 K/uL (1.40-6.50); Neutrophils % (auto) 71.6 %; Platelet Count 253 K/uL (130-400); RDW Coefficient of Variation 17.3 % (11.5-14.5); RDW Standard Deviation 65.4 fL (36.4-46.3); Red Blood Count 3.24 M/uL (4.20-5.40); White Blood Count 11.14 K/ul (4.8-10.8)
[2024-05-25 07:38] LABS: BUN Creatinine Ratio 16.1 (10-20); Calcium 9.2 mg/dl (8.6-10.3); Creatinine Clr Calc Pharmacy 22.5 ml/min; Est GFR (African American) 27.2 ml/min; Est GFR (Non-African American) 23.5 ml/min; Magnesium 1.9 mg/dl (1.7-2.4); Phosphorus 3.1 mg/dl (2.5-4.9)
--- NOTE | 2024-05-25 11:24 | Hospitalist Progress Note ---
Date of Service May 25, 2024 Assessment & Plan (1) Dizziness: (2) Visual changes: (3) Prolonged QT interval: (4) Type 2 diabetes mellitus: (5) Atrial fibrillation: (6) HTN (hypertension): (7) Chronic CHF: Plan This is a 78-year-old female who has a significant past medical history of nonischemic cardiomyopathy, chronic systolic and diastolic CHF, TBS status post PPM, permanent atrial fibrillation, CKD stage IV, prediabetes, HTN, HLD, history of CVA, dementia, GERD and anxiety who presents to ED due to dizziness and increased confusion. Dizziness with associate n/v described as vertiginous in nature, not presyncope with associated blurred vision Remained stable in medical telemetry unit Dizziness could be secondary to dehydration and hypotension doubt any vestibular component given the history sx have since resolved since arriving to ED Blood pressure remains on the lower side and she is much better with the symptoms CT of the head and carotid ultrasound have been unremarkable MRI of the brain did not show any acute intracranial abnormality-it did show age-related changes She had an echo 04/28/24 which revealed LVEF severely reduced < 25%, LA moderately dilated, moderate MR, mild TR orthostatics, pacer interrogation Will observe her overnight and get PT and OT evaluation prior to discharge likely tomorrow Dizziness is resolved with adequate hydration Stroke has been ruled out and she has had physical therapy with recommendation to go home on discharge She has been eating and drinking well and was advised to eat and drink more at home which she was not doing before admission Discussed with the daughter and the patient and they were agreeable to have more food and water Will be discharged home this afternoon Dementia sisters at bedside report recent dx feel memory has been declining, she also has been having visual hallucinations for several weeks MRI ordered, consider neuro eval based on that Abnormal CT a/p: Mild thickening of the endometrium measuring 9 mm. This is considered pathologic in a postmenopausal female. Follow-up nonemergent gynecologic consultation recommended. 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 Mcelroy permanent atrial fib HTN continue Eliquis, Imdur, Lasix and metoprolol Denies any acute symptoms Hx of CVA on statin, plavix, eliquis DVT ppx: eliquis DNR/DNI PCP: Kasandra Antunez Dispo: [facility], possible discharge this afternoon Admission and Anticipated Discharge Date Admission Date: May 24, 2024 Subjective 05/24/2024 The patient was seen and examined in medical telemetry unit in presence of the daughter She was admitted with dizziness which has resolved Has been waiting for MRI of the brain Denies any significant symptoms Will get PT and OT evaluation prior to discharge maybe tomorrow 05/25/2024 The patient was seen and examined in medical telemetry unit in presence of the daughter The patient wants to go home and denies any symptoms of a stroke and/or TIA She was not eating and drinking well at home and she was likely dehydrated on presentation She has had physical therapy evaluation and recommended home Will be discharged home this afternoon Review of Systems Review of Systems: All systems reviewed and are unremarkable except as noted below Physical Exam Physical Exam: Lying in bed without any acute distress Constitutional: well developed and well nourished; not ill appearing Eyes: PERRL, conjunctivae normal, anicteric sclerae ENMT: external ear and nose normal, oropharynx normal Neck: trachea midline, no thyromegaly Respiratory: no respiratory distress Auscultation: lungs clear to auscultation bilaterally Cardiovascular: Rate/Rhythm: regular rate and regular rhythm; not tachycardic Heart Sounds: normal S1 and normal S2 Extremities: no edema Gastrointestinal (Abdomen): Inspection/Auscultation: normal bowel sounds; abdomen not distended Percussion/Palpation: abdomen soft; abdomen nontender Neurologic: normal touch/pain/proprioception and moves all extremities; no focal motor deficits Psychiatric: A+Ox3, euthymic affect Lymphatic: no cervical or axillary lymphadenopathy Results & Data Results & Data Vital Signs (Past 12 Hours) Vital Signs Temp Pulse Pulse Pulse Resp BP Pulse Ox 05/25/24 11:14 36.8 C 89 18 101/68 95 05/25/24 10:41 05/25/24 08:00 78 05/25/24 07:38 37.1 C 87 16 108/72 94 05/25/24 07:15 84 18 92 05/25/24 04:00 36.8 C 95 H 18 91/55 L 95 05/24/24 23:22 36.6 C 67 16 90/54 L 95 O2 Del Method 05/25/24 11:14 Room Air 05/25/24 10:41 Room Air 05/25/24 08:00 05/25/24 07:38 Room Air 05/25/24 07:15 Room Air 05/25/24 04:00 Room Air 05/24/24 23:22 Room Air Laboratory Results Short CBC 05/25/24 Range/Units 06:51 WBC 11.14 H (4.8-10.8) K/ul Hgb 10.3 L (12.0-16.0) g/dl Hct 33.4 L (37.0-47.0) % Plt Count 253 (130-400) K/uL BMP 05/25/24 06:51 Sodium 137 Potassium 4.0 Chloride 105 Carbon Dioxide 23 BUN 32 H Creatinine 1.99 H Glucose 147 H Calcium 9.2 Medications Administered Current Inpatient Medications Acetaminophen (Acetaminophen 325 Mg Tab) 650 mg PO Q4H PRN PRN Reason: Pain or Fever Stop: 06/22/24 19:11 Albuterol (Albuterol Hfa 8 Gm Inhaler) 2 puffs INH QIDR ALYSSA Stop: 06/22/24 20:59 Last Admin: 05/25/24 07:14 Dose: 2 puffs Allopurinol (Allopurinol 100 Mg Tab) 100 mg PO QAM ALYSSA Stop: 06/23/24 08:59 Last Admin: 05/25/24 09:48 Dose: 100 mg Apixaban (Apixaban 2.5 Mg Tab) 2.5 mg PO BID ALYSSA Stop: 06/22/24 20:59 Last Admin: 05/25/24 09:48 Dose: 2.5 mg Atorvastatin Calcium (Atorvastatin 40 Mg Tab) 40 mg PO HS ALYSSA Stop: 06/22/24 20:59 Last Admin: 05/24/24 20:54 Dose: 40 mg Calcitriol (Calcitriol 0.25 Mcg Capsule) 0.5 mcg PO QAM ALYSSA Stop: 06/23/24 08:59 Last Admin: 05/25/24 09:48 Dose: 0.5 mcg Clopidogrel Bisulfate (Clopidogrel Bisulfate 75 Mg Tab) 75 mg PO QAM ALYSSA Stop: 06/23/24 08:59 Last Admin: 05/25/24 09:48 Dose: 75 mg Dextrose (Dextrose 50% 50 Ml Syringe) 25 - 50 ml IV UD PRN; Protocol PRN Reason: Hypoglycemia Protocol Stop: 06/22/24 19:11 Docusate Sodium (Docusate Sodium 100 Mg Cap) 100 mg PO BID [facility] Stop: 06/22/24 20:59 Last Admin: 05/25/24 09:48 Dose: 100 mg Escitalopram Oxalate (Escitalopram Oxalate 20 Mg Tab) 20 mg PO QAM ALYSSA Stop: 06/23/24 08:59 Last Admin: 05/25/24 09:48 Dose: 20 mg Famotidine (Famotidine 20 Mg Tab) 20 mg PO AMHS ALYSSA Stop: 06/22/24 20:59 Last Admin: 05/25/24 09:47 Dose: 20 mg Furosemide (Furosemide 20 Mg Tab) 20 mg PO DAILY [facility] Stop: 06/23/24 08:59 Last Admin: 05/25/24 09:47 Dose: 20 mg Glucagon (Glucagon For Inj 1 Mg Vial) 1 mg SQ UD PRN; Protocol PRN Reason: Hypoglycemia Protocol Stop: 06/22/24 19:11 Glucose (Glucose 40% Gel 15 Gm Tube) 15 - 30 gm PO UD PRN; Protocol PRN Reason: Hypoglycemia Protocol Stop: 06/22/24 19:11 Glucose (Glucose 10 Tab/Tube) 4 - 8 tab PO UD PRN; Protocol PRN Reason: Hypoglycemia Treatment Stop: 06/22/24 19:11 Promethazine HCl 6.25 mg/ (Sodium Chloride) 50.25 mls @ 201 mls/hr IV Q6H PRN PRN Reason: Nausea And Vomiting Stop: 06/22/24 19:11 Last Infusion: 05/23/24 21:06 Dose: Infused Insulin Aspart (Insulin Aspart Per Unit Charge) 0 units SC ACHS [facility] Stop: 06/22/24 20:59 Last Admin: 05/25/24 09:47 Dose: 2 units Isosorbide Mononitrate (Isosorbide Travis Extended Rel 30 Mg Tabcr) 30 mg PO QAM [facility] Stop: 06/23/24 08:59 Last Admin: 05/25/24 09:47 Dose: 30 mg Levothyroxine Sodium (Levothyroxine Sodium 88 Mcg Tablet) 88 mcg PO DAILYBB [facility] Stop: 06/23/24 06:29 Last Admin: 05/25/24 06:16 Dose: 88 mcg Magnesium Oxide (Magnesium Oxide 400 Mg Tab) 400 mg PO DAILY [facility] Stop: 06/23/24 08:59 Last Admin: 05/25/24 09:47 Dose: 400 mg Melatonin (Melatonin 3 Mg Tab) 6 mg PO HS PRN PRN Reason: Sleep Stop: 06/22/24 20:59 Metoprolol Succinate (Metoprolol Succ 25mg Ext Rel Tab) 25 mg PO QAM ALYSSA Stop: 06/23/24 08:59 Last Admin: 05/25/24 09:47 Dose: 25 mg Miscellaneous (Carbohydrates For Hypoglycemia ) 15 - 30 gm PO UD PRN PRN Reason: Hypoglycemia Protocol Stop: 06/22/24 19:11 Polyethylene Glycol (Polyethylene (Miralax) 17 Gm Pack) 17 gm PO DAILY PRN PRN Reason: Constipation Stop: 06/22/24 19:11 (4) Type 2 diabetes mellitus Diabetes mellitus senior living insulin use: without senior living use Diabetes mellitus complication status: with kidney complications Diabetes mellitus complication detail: with chronic kidney disease Chronic kidney disease stage: stage 3 (moderate) Qualified Code(s): 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 (6) HTN (hypertension) 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 type: essential hypertension Qualified Code(s): I10 - Essential (primary) hypertension
--- NOTE | 2024-05-26 07:32 | Discharge Summary ---
Date of Service May 26, 2024 Admission HPI Per Admitting Provider This is a 78-year-old female who has a significant past medical history of nonischemic cardiomyopathy, chronic systolic and diastolic CHF, TBS status post PPM, permanent atrial fibrillation, CKD stage IV, prediabetes, HTN, HLD, history of CVA, dementia, GERD and anxiety who presents to ED due to dizziness and increased confusion. Her 2 sisters are at bedside. Outpt records reviewed. Patient reports when she went to bed last evening she felt very dizzy. She described this as feeling off balance. She was also complaining of blurry vision. She states when she woke up this morning and her back up scan coordinator was there sh e was having difficulty walking requiring her to hold onto things. Due to her being dizzy and off-balance her back up scan coordinator called EMS. Patient states this is never happened before. Her 2 sisters at bedside also report worsening confusion as well as hallucinations. When she looks outside she sees cats and is afraid they are going to come in. Her sister is at bedside reports that she was recently diagnosed with dementia and over the last few months have been noticing increasing hallucinations. En route to EMS patient was significantly nauseated and vomited x 1. When she got to the ER she did feel better and her symptoms mostly resolved. During my visit she denied any dizziness, visual changes, nausea or vomiting. Of significance she was recently hospitalized in early April secondary to acute on chronic CHF. She also required electrophysiology procedure where she underwent an AV eduardo ablation as well as a dual PPM interrogation and reprogramming of her pacemaker. She denies any recent viral symptoms. She denies any prior history of vertigo. She denies any headache, focal weakness, slurred speech or facial droop. She did not check her blood pressure or blood sugar during this event. She denies any fever, chills, sweats, lightheadedness, presyncope, chest pain, shortness breath, cough, abdominal pain, dysuria, increased urinary frequency with urination, melena or hematochezia. She tends to be more on the constipated side and she is moving her bowels with utilization of stool softeners. In ED patient remained hemodynamically stable. Her lab work was notable for a chronic anemia with an H&H of 11.3 and 35.6, stable BUN/creatinine at 29 and 1.85, glucose 190, Head CT without acute abnormality, CXR with cardiomegaly and mild congestive change, ct a/p with endometrial thickening but otherwise no acute abnormality. Admission Exam Per Admitting Provider Physical Exam: Constitutional: Chronically ill appearing, WD/WN, vitals as above, NAD, sitting up in bed, pleasant, conversing easily Head: Normocephalic, Atraumatic Eyes: PERRL, conjunctivae normal, anicteric sclerae ENMT: external ear and nose normal, oropharynx normal , CHEESH-NA, b/l hearing aides, b/l ear canals clear, TM wnl Neck: trachea midline, no thyromegaly normal visual inspection Respiratory: normal respiratory effort, lungs clear to auscultation, no wheeze, rales, rhonchi. Normal insp/exp effort, no accessory muscle use Cardiovascular: IRR/IRR, no murmur, no edema Vessels: no JVD or carotid bruit Chest: normal inspection of chest +pacemaker Abdomen: normal bowel sounds, soft, nontender, no hepatosplenomegaly Musculoskeletal: no cyanosis or clubbing, extremities motor strength 5/5 Skin: no rashes, warm and dry normal turgor Neurologic: PERRL, EOMI, accommodation nl, no face palsy, no dysarthria CN's II-XI intact bilaterally and moves all extremities Psychiatric: A+Ox3 to basics, euthymic affect Lymphatic: no cervical or axillary lymphadenopathy : deferred Principal Diagnosis Dizziness likely secondary to dehydration-resolved, no stroke Discharge Exam Lying in bed without any acute distress Constitutional well developed and well nourished; not ill appearing Eyes PERRL, conjunctivae normal, anicteric sclerae ENMT external ear and nose normal, oropharynx normal Neck trachea midline, no thyromegaly Respiratory no respiratory distress Auscultation: lungs clear to auscultation bilaterally Cardiovascular Rate/Rhythm: regular rate and regular rhythm; not tachycardic Heart Sounds: normal S1 and normal S2 Extremities: no edema Gastrointestinal (Abdomen) Inspection/Auscultation: normal bowel sounds; abdomen not distended Percussion/Palpation: abdomen soft; abdomen nontender Neurologic normal touch/pain/proprioception and moves all extremities; no focal motor deficits Psychiatric A+Ox3, euthymic affect Lymphatic no cervical or axillary lymphadenopathy Discharge Data Allergies Allergy/AdvReac Type Severity Reaction Status Date / Time codeine Allergy Intermediate PSCHO Verified 05/23/24 15:30 COMPLICATIONS PER [facility] Consultations 05/23/24 15:37 ED Decision to Admit Stat 05/24/24 08:00 Consult Gynecology Routine Ordered Studies 05/23/24 11:09 CT Abd and Pelvis [CT abd pelvis IV con only] Stat CT head/brain wo con Stat 05/23/24 17:23 Carotid duplex [US carotid doppler BI] Stat 05/24/24 00:00 MR brain wo con Routine Hospital Course (1) Dizziness: (2) Visual changes: (3) Prolonged QT interval: (4) Type 2 diabetes mellitus: (5) Atrial fibrillation: (6) HTN (hypertension): (7) Chronic CHF: Plan This is a 78-year-old female who has a significant past medical history of nonischemic cardiomyopathy, chronic systolic and diastolic CHF, TBS status post PPM, permanent atrial fibrillation, CKD stage IV, prediabetes, HTN, HLD, history of CVA, dementia, GERD and anxiety who presents to ED due to dizziness and increased confusion. Dizziness with associate n/v described as vertiginous in nature, not presyncope with associated blurred vision Remained stable in medical telemetry unit Dizziness could be secondary to dehydration and hypotension doubt any vestibular component given the history sx have since resolved since arriving to ED Blood pressure remains on the lower side and she is much better with the symptoms CT of the head and carotid ultrasound have been unremarkable MRI of the brain did not show any acute intracranial abnormality-it did show age-related changes She had an echo 04/28/24 which revealed LVEF severely reduced < 25%, LA moderately dilated, moderate MR, mild TR orthostatics, pacer interrogation Will observe her overnight and get PT and OT evaluation prior to discharge likely tomorrow Dizziness is resolved with adequate hydration Stroke has been ruled out and she has had physical therapy with recommendation to go home on discharge She has been eating and drinking well and was advised to eat and drink more at home which she was not doing before admission Discussed with the daughter and the patient and they were agreeable to have more food and water Will be discharged home this afternoon Dementia sisters at bedside report recent dx feel memory has been declining, she also has been having visual hallucinations for several weeks MRI ordered, consider neuro eval based on that Abnormal CT a/p: Mild thickening of the endometrium measuring 9 mm. This is considered pathologic in a postmenopausal female. Follow-up nonemergent gynecologic consultation recommended. 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 Mcelroy permanent atrial fib HTN continue Eliquis, Imdur, Lasix and metoprolol Denies any acute symptoms Hx of CVA on statin, plavix, eliquis DVT ppx: eliquis DNR/DNI PCP: Kasandra Antunez Dispo: admit to [facility] for dizziness eval, possible discharge this afternoon Total Time Total Time Spent Total Time Spent (In Minutes): 40 minutes Discharge Plan Discharge Items Patient Disposition: Home - Home Health Services Reason For Visit: DIZZINESS Discharge Diagnosis: Dizziness likely secondary to dehydration-resolved, no stroke Condition on Discharge: Fair Activity: Resume your previous activity Non-emergency contact: Primary Care Provider Call non-emergency contact if: you have any medication questions and your symptoms worsen Follow-up/Referrals: Kasandra Antunez, [Primary Care Provider] - 05/30/24 2:20 pm (Your appointment will be with Dr[facility] Wilson at [facility]) Diet: Carb Consistent or DM2, Heart Healthy and Low Sodium (2gm) Addtl Attending Provider Instructions: Please take precautions to avoid falls Try to eat and drink more to avoid dehydration No change in your current medications Keep appointment with your healthcare provider Pending Studies at Discharge: No Stand-Alone Forms: My [facility] [employer], Smoking Cessation Medications and DC Order Prescriptions: Continued clopidogrel 75 mg Tablet 75 mg PO QAM Qty: 30 0RF allopurinol 100 mg tablet 100 mg PO QAM furosemide 20 mg tablet 20 mg PO DAILY Rx Instructions: MAY TAKE ADDITIONAL DOSE IF NEEDED PER [facility] levothyroxine 88 mcg tablet 88 mcg PO QAM albuterol sulfate [Ventolin HFA] 90 mcg/actuation HFA aerosol inhaler 2 puff INHALATION QID ondansetron 4 mg tablet,disintegrating 4 mg translingual Q8 PRN (Reason: n/v) nitroglycerin [Nitrostat] 0.4 mg Tablet, Sublingual 0.4 mg sublingual UD PRN (Reason: chest pain) Qty: 10 0RF Rx Instructions: place under tongue 0.4mg every 5 minutes as needed for pain,chest famotidine 20 mg Tablet 20 mg PO AMHS atorvastatin 40 mg tablet 40 mg PO HS calcitriol 0.5 mcg capsule 0.5 mcg PO QAM Eliquis 2.5 mg tablet 2.5 mg PO BID escitalopram oxalate 20 mg tablet 20 mg PO QAM metoprolol succinate 25 mg Tablet Extended Release 24 Hr 25 mg PO QAM 30 Days Qty: 30 0RF isosorbide mononitrate 30 mg tablet extended release 24 hr 30 mg PO QAM docusate sodium 100 mg capsule 100 mg PO BID magnesium oxide 400 mg (241.3 mg magnesium) tablet 400 mg PO DAILY Qty: 30 0RF Discharge Orders: Discharge Order (Routine); Ordered 05/25/24 Ordered By: Aaron Martinez Admission Data Admit Date/Time: 05/24/24 14:56 Attending Provider: Aaron Maritnez Admit Provider: Ralph Lara Primary Care Provider: Kasandra Antunez Other Providers: Ralph Lara; Cesar Davis Christina; Shereen Castañeda; Jared Miner; Yamil Escobar; Silver Wolf; Reggie Fernandez; Marisa Varela; Radha Zepeda; Bisi Boston; Albertina Friedman; Tonia Krishnan; Kori Sierra; Jess Fraser; Wayne Arreguin; Hannah Bartlett Other Interventions: Discharge Summary Assessment (RN) Last Done: 05/25/24 13:24
--- NOTE | 2024-05-26 15:09 | Communication Note ---
Date of Service: May 26, 2024 By CMS guidelines, a determination that the admission or continued stay is not medically necessary has been made by a member of the UR committee and a phys ician for this hospital stay, therefore a Code 44 will be completed and the Inpatient admission will be changed to outpatient.
== END 2024-05-25 14:18 | disposition home health service (06) | DRG 641 ==
LOC: ED 10:07 → 2W 10:07 → SUATTDRO 16:25 → 2W 18:09

== ENCOUNTER 2024-08-08 19:20 | Observation (INO) ==
--- NOTE | 2024-08-08 19:51 | Emergency Department Note ---
Impression & Plan SOB (shortness of breath), CHF (congestive heart failure), Cough, Elevated troponin, Anemia ED Provider Note NAME: TATUM NOEL AGE: 78 SEX: F : 1945 ARRIVES VIA: Ambulance INFORMANT: [Patient][ems] ED PROVIDER(S): [Jaspreet Machuca MD] CHIEF COMPLAINT: Cough HISTORY OF PRESENT ILLNESS: The patient is a 78-year-old female with dementia who has been coughing for 3 days. She is not sure if she has had a fever. The cough is at times productive. The patient denies any current shortness of breath. She has not had chest pain. No known sick contacts. The patient does have a history of A-fib, she also carries a history of pulmonary edema. History is limited with her dementia history. As per the patient's family, the patient was complaining of shortness of breath earlier, this is the reason for the ED visit. PMHx/PSHx/Social Hx: See Below PHYSICAL EXAM: GENERAL: Patient is in no acute distress. HEENT: No acute trauma, normocephalic atraumatic, mucous membranes moist, no nasal congestion. NECK: No stridor, no adenopathy, no meningismus, trachea is midline. LUNGS: Breath sounds are somewhat diminished bilaterally with some occasional crackles bilaterally especially on the right. No wheezing. HEART: Subtle systolic murmur, irregular rhythm, normal rate. ABDOMEN: Soft, nontender, no peritonitis. EXTREMITIES: No cyanosis, full range of motion of all the joints without pain or difficulty. NEUROLOGIC: Awake alert, poor historian, no acute motor or sensory deficits, no focal weakness. SKIN: No jaundice, no diaphoresis. DIFFERENTIAL DIAGNOSIS: Bronchitis or pneumonia, COVID-19, viral illness, CHF, IA, among others. EMERGENCY DEPARTMENT PROCEDURES: MEDICAL DECISION MAKING: There is no leukocytosis. The patient is anemic however, this is a chronic finding looking back at previous testing. There was a normal platelet count. INR is elevated at 1.4. There is evidence for renal failure however, this is a chronic issue when looking back at previous testing. No electrolyte abnormality in need of emergent correction. The bilirubin was elevated, the remaining liver enzymes were unremarkable. BNP was quite high at over 2000, this is consistent with fluid overload and CHF. ECG shows atrial fibrillation, no obvious acute ischemia. Cardiac enzyme testing x 1 is slightly elevated. This troponin elevation could be consistent with cardiac injury or potentially just mismatch from her dyspnea. Respiratory bio fire is negative. Chest film does show some CHF and cardiomegaly. No focal pneumonia. On exam, the patient did have some crackles on lung auscultation. The patient was given 40 mg of IV Lasix. The patient presents with dyspnea. She has dementia so the history was somewhat difficult. The family had noticed that she has been more fatigued and short of breath lately. The patient has a history of heart failure, given the dyspnea, given the CHF, I do think admission for diuresis would be warranted. The troponin should of course be trended given the slight elevation. I spoke with the patient and case management. The on-call hospitalist was consulted. Prior/Outside records/notes reviewed: Today's EMS notes describing her presentation and transport to this hospital. ECG per my interpretation: Indication was shortness of breath. The ECG shows atrial fibrillation with occasional pacemaker function. The rate is 85. There was a right bundle branch block. No acute ST elevation. QTc was 556. Compared to an ECG from 23 May 2024, I see no significant change. Continuous Cardiac Monitoring per my interpretation: An order was placed for continuous cardiac monitoring. The monitor shows a rate of 83 with atrial fibrillation with occasional pacemaker function.. Imaging/x-ray results per my interpretation: Chest x-ray shows some cardiomegaly and parenchymal congestion consistent with some fluid overload/CHF. The film looks similar to previous films. Chronic Medical/Social conditions affecting care: History of A-fib as well as CHF Care/Management discussed with: Case management, the on-call hospitalist Level of care consideration(s): After review of the information above and other included data: --I believe the patient requires escalation of care to admission DISPOSITION: Admission Past Med/Surg History Problem List Anemia (Acute) Elevated troponin (Acute) Cough (Acute) CHF (congestive heart failure) (Acute) SOB (shortness of breath) (Acute) Thickened endometrium Chronic CHF Visual changes Dizziness (Acute) Acute confusion (Acute) Prolonged QT interval CHF (congestive heart failure) (Acute) Acute hypokalemia (Acute) Weakness (Acute) Hypomagnesemia (Acute) Pneumonia Cardiac pacemaker Nonischemic cardiomyopathy Dyspnea (Acute) Hypoxia (Acute) Pulmonary edema (Acute) Pleural effusion Aspiration pneumonia Pulmonary edema (Acute) Acute exacerbation of CHF (congestive heart failure) (Acute) Acute respiratory failure with hypoxia (Acute) CKD (chronic kidney disease), stage IV Tachycardia-bradycardia syndrome Paroxysmal atrial fibrillation Pneumonia (Acute) Hypoxia (Acute) Intractable nausea and vomiting (Acute) Paroxysmal atrial fibrillation with RVR (Acute) Atrial fibrillation with RVR Generalized weakness History of right MCA stroke Dyslipidemia Type 2 diabetes mellitus HTN (hypertension) (Chronic) Pain, dental (Acute) Atrial fibrillation (Chronic) Medical History Acute kidney injury superimposed on chronic kidney disease Defibrillator discharge Weakness Atrial fibrillation with rapid ventricular response Acute on chronic HFrEF (heart failure with reduced ejection fraction) Pneumonia Acute systolic (congestive) heart failure LBBB (left bundle branch block) History of adenomatous polyp of colon Degenerative disc disease, cervical Hearing loss [place] (generalized anxiety disorder) GERD without esophagitis Vitamin D deficiency Hypertensive cardiomegaly Surgical History History of D&C History of excision of lesion Back - Dr. Tucker History of carpal tunnel surgery History of arthroplasty of left knee Family History Other Diabetes Heart disease Social History Smoking Status: Never smoker Second Hand Exposure: No; Do You Dip or Chew Tobacco: No; Hx Alcohol Use: No Hx Substance Use: No Preferred Language: Latvian Communication Ability: Effective Hearing Ability: Hard of Hearing Dish Person Required: No Beliefs That Will Affect Care: None marital status: / Current Living Situation: Alone Current Living Situation Comment: Son stays at nighttime and caregivers come throughout the day Feels Safe at Home: Yes Assistive Devices: Walker and Wheelchair Allergies Allergies Allergy/AdvReac Type Severity Reaction Status Date / Time codeine Allergy Intermediate PSCHO Verified 05/23/24 15:30 COMPLICATIONS PER [facility] Home Meds Home Medications Medication Instructions Recorded Confirmed allopurinol 100 mg tablet 100 mg PO QAM 06/11/19 08/08/24 furosemide 20 mg tablet 20 mg PO DAILY 09/18/22 08/08/24 atorvastatin 40 mg tablet 40 mg PO HS 01/06/23 08/08/24 famotidine 20 mg tablet 20 mg PO AMHS 01/06/23 08/08/24 albuterol sulfate 90 mcg/actuation 2 puff inhalation QID 03/28/23 08/08/24 aerosol inhaler (Ventolin HFA) levothyroxine 88 mcg tablet 88 mcg PO QAM 03/28/23 08/08/24 ondansetron 4 mg disintegrating 4 mg translingual Q8 PRN n/v 03/28/23 08/08/24 tablet apixaban 2.5 mg tablet (Eliquis) 2.5 mg PO BID 02/29/24 08/08/24 calcitriol 0.5 mcg capsule 0.5 mcg PO QAM 02/29/24 08/08/24 docusate sodium 100 mg capsule 100 mg PO BID 03/29/24 08/08/24 isosorbide mononitrate 30 mg 30 mg PO QAM 03/29/24 08/08/24 tablet,extended release 24 hr escitalopram oxalate 20 mg tablet 20 mg PO QAM 04/27/24 08/08/24 metoprolol succinate 25 mg 25 mg PO AMHS 08/08/24 08/08/24 tablet,extended release 24 hr Previous Rx's Medication Instructions Recorded clopidogrel 75 mg tablet 75 mg PO QAM #30 tabs 02/24/20 nitroglycerin 0.4 mg sublingual 0.4 mg sublingual UD PRN chest 05/11/22 tablet (Nitrostat) pain #10 tabs magnesium oxide 400 mg (241.3 mg 400 mg PO DAILY #30 tabs 03/31/24 magnesium) tablet Results & Data (ED) Vital Signs Vital Signs - 24 hr 08/08/24 19:24 08/08/24 19:24 08/08/24 19:49 Temperature 36.6 C 36.6 C Temperature Source Oral Oral Pulse Rate 83 Pulse Rate [Apical] 83 Pulse Rhythm [Apical] Pulse Strength [Apical] Respiratory Rate 24 24 Respiratory Effort / Characteristics Non-Labored Spontaneous Non-Labored Spontaneous Respiratory Depth Normal Normal Blood Pressure 119/85 Blood Pressure [Right Arm] 119/85 Blood Pressure Mean 96 Blood Pressure Mean [Right Arm] 96 Pulse Oximetry 95 95 95 Oxygen Delivery Method Room Air Room Air Room Air Sepsis Recent Fever Within 48 Hours No Sepsis New/Unexplained Change in Mental Status No Sepsis Action Taken by Nursing No Action Required 08/08/24 21:04 Temperature Temperature Source Pulse Rate Pulse Rate [Apical] 86 Pulse Rhythm [Apical] Regular Pulse Strength [Apical] Normal Respiratory Rate 18 Respiratory Effort / Characteristics Non-Labored Spontaneous Respiratory Depth Normal Blood Pressure Blood Pressure [Right Arm] 121/86 Blood Pressure Mean Blood Pressure Mean [Right Arm] 97 Pulse Oximetry 94 Oxygen Delivery Method Room Air Sepsis Recent Fever Within 48 Hours Sepsis New/Unexplained Change in Mental Status Sepsis Action Taken by [facility] Medications Current Medication List: was personally reviewed by me Laboratory Data Attestation: I reviewed the patient's lab results. 08/08/24 19:33 08/08/24 19:33 Lab Results 08/08/24 Range/Units 19:33 WBC 9.48 (4.8-10.8) K/ul RBC 3.64 L (4.20-5.40) M/uL Hgb 10.9 L (12.0-16.0) g/dl Hct 36.6 L (37.0-47.0) % MCV 100.5 H (80.0-100.0) fL MCH 29.9 (25.0-34.0) pg MCHC 29.8 L (32.0-36.0) g/dL RDW Std Deviation 66.5 H (36.4-46.3) fL RDW Coeff of Etta 18.2 H (11.5-14.5) % Plt Count 291 (130-400) K/uL MPV 11.1 (9.4-12.4) fL Immature Gran % (Auto) 0.2 % Neut % (Auto) 55.3 % Lymph % (Auto) 29.5 % [place] % (Auto) 13.4 % Eos % (Auto) 0.8 % Baso % (Auto) 0.8 % Neut # (Auto) 5.23 (1.40-6.50) K/uL Lymph # (Auto) 2.80 (1.20-3.40) K/uL [place] # (Auto) 1.27 H (0.11-0.59) K/uL Eos # (Auto) 0.08 (0.00-0.50) K/uL Baso # (Auto) 0.08 (0.00-0.20) K/uL Immature Gran # (Auto) 0.02 (0.01-0.20) K/uL Absolute Nucleated RBC 0.03 (0.00-0.12) K/uL Nucleated RBC % (auto) 0.3 % PT 14.7 H (9.0-12.0) Seconds INR 1.4 H (0.9-1.1) APTT 29 (21-31) Seconds PTT Ratio 1.1 Sodium 142 (136-145) mmol/L Potassium 3.9 (3.5-5.1) mmol/L Chloride 104 (98-107) mmol/L Carbon Dioxide 23 (21-32) mmol/L Anion Gap 15 H (3-11) BUN 36 H (6-23) mg/dl Creatinine 2.52 H (0.6-1.2) mg/dl Est Cr Clr Drug Dosing 17.2 ml/min eGFR 19.02 BUN/Creatinine Ratio 14.3 (10-20) Glucose 160 H (70-99(Fasting)) mg/dl Calcium 10.2 (8.6-10.3) mg/dl Magnesium 2.1 (1.7-2.4) mg/dl Total Bilirubin 2.3 H (0.2-1.0) mg/dl AST 27 (13-39) U/L ALT 12 (7-52) U/L Alkaline Phosphatase 103 (34-104) U/L Troponin I High Sens 20.1 H (0-14) pg/ml B-Natriuretic Peptide 2262 H (0-100) pg/ml Total Protein 7.4 (6.0-8.3) gm/dl Albumin 4.4 (3.4-5.0) gm/dl Globulin 3.0 (2.5-4.0) gm/dl Albumin/Globulin Ratio 1.5 (0.9-2) Adenovirus (PCR) Not Detected (NotDetected) B. pertussis DNA (PCR) Not Detected (NotDetected) B.parapertussis DNA PCR Not Detected (NotDetected) C. pneumoniae DNA (PCR) Not Detected (NotDetected) Coronavirus OC43 (PCR) Not Detected (NotDetected) Coronavirus HKU1 (PCR) Not Detected (NotDetected) Coronavirus 229E (PCR) Not Detected (NotDetected) SARS-CoV-2 (PCR) Not Detected (NotDetected) Coronavirus NL63 (PCR) Not Detected (NotDetected) Human Metapneumovir PCR Not Detected (NotDetected) Influenza Type A (PCR) Not Detected (NotDetected) Influenza Type B (PCR) Not Detected (NotDetected) M. pneumoniae (PCR) Not Detected (NotDetected) Parainfluenza 1 (PCR) Not Detected (NotDetected) Parainfluenza 2 (PCR) Not Detected (NotDetected) Parainfluenza 3 (PCR) Not Detected (NotDetected) Parainfluenza 4 (PCR) Not Detected (NotDetected) RSV (PCR) Not Detected (NotDetected) Entero/Rhino (PCR) Not Detected (NotDetected) Administered Medications Discontinued Medications Furosemide (Furosemide 40 Mg/4 Ml Vial) 40 mg IV ONE ONE Stop: 08/08/24 20:24 Last Admin: 08/08/24 21:00 Dose: 40 mg Documented By: [facility] Discharge Plan Visit Data Chief Complaint: Cough Stated Complaint: Cough x3days ED Provider: Jaspreet Machuca Discharge Problem: SOB (shortness of breath), CHF (congestive heart failure), Cough, Elevated troponin, Anemia Patient Disposition: Home - Self-Care Condition: Fair Forms Stand Alone Forms: My [facility], Important Visit Information Prescriptions Prescriptions: No Action clopidogrel 75 mg Tablet 75 mg PO QAM Qty: 30 0RF allopurinol 100 mg tablet 100 mg PO QAM furosemide 20 mg tablet 20 mg PO DAILY Rx Instructions: MAY TAKE ADDITIONAL DOSE IF NEEDED PER [facility] levothyroxine 88 mcg tablet 88 mcg PO QAM albuterol sulfate [Ventolin HFA] 90 mcg/actuation HFA aerosol inhaler 2 puff INHALATION QID ondansetron 4 mg tablet,disintegrating 4 mg translingual Q8 PRN (Reason: n/v) nitroglycerin [Nitrostat] 0.4 mg Tablet, Sublingual 0.4 mg sublingual UD PRN (Reason: chest pain) Qty: 10 0RF Rx Instructions: place under tongue 0.4mg every 5 minutes as needed for pain,chest famotidine 20 mg Tablet 20 mg PO AMHS atorvastatin 40 mg tablet 40 mg PO HS calcitriol 0.5 mcg capsule 0.5 mcg PO QAM Eliquis 2.5 mg tablet 2.5 mg PO BID escitalopram oxalate 20 mg tablet 20 mg PO QAM metoprolol succinate 25 mg tablet extended release 24 hr 25 mg PO AMHS isosorbide mononitrate 30 mg tablet extended release 24 hr 30 mg PO QAM docusate sodium 100 mg capsule 100 mg PO BID magnesium oxide 400 mg (241.3 mg magnesium) tablet 400 mg PO DAILY Qty: 30 0RF Referrals Referrals: Kasandra Antunez DO [Primary Care Provider] - Discharge Problem: CHF (congestive heart failure) Qualifiers: Heart failure type: unspecified Heart failure chronicity: acute on chronic Q ualified Code(s): I50.9 - Heart failure, unspecified Cough Qualifiers: Cough type: acute Qualified Code(s): R05.1 - Acute cough Anemia Qualifiers: Anemia type: unspecified type Qualified Code(s): D64.9 - Anemia, unspecified
[2024-08-08 20:11] LABS: Basophils # (auto) 0.08 K/uL (0.00-0.20); Basophils % (auto) 0.8 %; Eosinophils # (auto) 0.08 K/uL (0.00-0.50); Eosinophils % (auto) 0.8 %; Hematocrit (blood only) 36.6 % (37.0-47.0); Hemoglobin 10.9 g/dl (12.0-16.0); Immature Granulocytes # (auto) 0.02 K/uL (0.01-0.20); Immature Granulocytes % (auto) 0.2 %; Lymphocytes % (auto) 29.5 %; Mean Corpuscular Hemoglobin 29.9 pg (25.0-34.0); Mean Corpuscular Hgb Conc 29.8 g/dL (32.0-36.0); Mean Corpuscular Volume 100.5 fL (80.0-100.0); Mean Platelet Volume 11.1 fL (9.4-12.4); Monocytes # (auto) 1.27 K/uL (0.11-0.59); Monocytes % (auto) 13.4 %; Neutrophils # (auto) 5.23 K/uL (1.40-6.50); Neutrophils % (auto) 55.3 %; Nucleated RBC # (auto) 0.03 K/uL (0.00-0.12); Nucleated RBC % (auto) 0.3 %; Platelet Count 291 K/uL (130-400); RDW Coefficient of Variation 18.2 % (11.5-14.5); RDW Standard Deviation 66.5 fL (36.4-46.3); Red Blood Count 3.64 M/uL (4.20-5.40); White Blood Count 9.48 K/ul (4.8-10.8)
[2024-08-08 20:18] LABS: Albumin Globulin Ratio 1.5 (0.9-2); Albumin Level 4.4 gm/dl (3.4-5.0); BUN Creatinine Ratio 14.3 (10-20); Bilirubin,Total 2.3 mg/dl (0.2-1.0); Calcium 10.2 mg/dl (8.6-10.3); Creatinine Clr Calc Pharmacy 17.2 ml/min; Magnesium 2.1 mg/dl (1.7-2.4); Potassium 3.9 mmol/L (3.5-5.1); Total Protein 7.4 gm/dl (6.0-8.3)
[2024-08-08 20:24] LABS: Troponin I High Sensitivity 20.1 pg/ml (0-14)
[2024-08-08 20:43] LABS: INR 1.4 (0.9-1.1); Partial Thromboplastin Ratio 1.1; Partial Thromboplastin Time 29 Seconds (21-31); Prothrombin Time 14.7 Seconds (9.0-12.0)
--- NOTE | 2024-08-08 20:57 | History & Physical Report ---
Date of Service August 08, 2024 Assessment & Plan (1) Acute on chronic HFrEF (heart failure with reduced ejection fraction): (2) Paroxysmal atrial fibrillation: (3) Tachycardia-bradycardia syndrome: (4) CKD (chronic kidney disease), stage IV: (5) Type 2 diabetes mellitus: Plan This is a 78-year-old female who has a significant past medical history of nonischemic cardiomyopathy, chronic systolic and diastolic CHF, TBS status post PPM, permanent atrial fibrillation, CKD stage IV, prediabetes, HTN, HLD, history of CVA, dementia, GERD and anxiety who presents to ED due to dizziness and increased confusion. Acute on Chronic HFpEF Please refer to Dr. Mckenna addendum for details regarding his plan of care for decompensated CHF and acute/chronic CKD4 Acute on Chronic CKD-4 baseline cr 1.8, bun/cr 36 and 2.52 Dementia chronic, stable TBS s/p PPM with recent AV eduardo ablation and pacer reprogramming by Dr. Mcelroy permanent atrial fib HTN continue Eliquis, Imdur, and metoprolol Hx of CVA on statin, plavix, eliquis DVT ppx: eliquis DNR/DNI PCP: Kasandra Antunez Dispo: admit to tele Pt was seen and examined in collaboration with Dr. Mckenna, please see addendum for details regarding assessment and plan A total of 40 minutes was spent coordinating, documenting, and providing care for this patient excluding time spent in the performance of separately billed services. This included personally viewing all current laboratories and imaging studies, medication reconciliation, outpatient chart review, and discussion with specialists. History of Present Illness Chief Complaint: Cough x 3 days. Primary Care Provider: Kasandra Antunez, This is a 78-year-old female who has a significant past medical history of nonischemic cardiomyopathy, chronic systolic and diastolic CHF, TBS status post PPM, permanent atrial fibrillation, CKD stage IV, T2dm, HTN, HLD, history of CVA, dementia, GERD and anxiety who presents to ED due to cough x 3 days.patient reports that she has been coughing for 3 days. It is intermittently productive. She denies any sick contacts. She denies any fever, chills, sweats, lightheadedness, dizziness, chest pain, shortness of breath, nausea, vomiting. She denies any sick contacts. Family at bedside who also helps elicit history. They report son has not been weighing patient. She has been compliant with meds. She has been eating out a lot and eating packaged foods. She does not watch salt intake. She is very hard of hearing. She continues to have visual hallucinations for which she sees neuro for. They are planning on putting her on memantine. In ED patient remained hemodynamically stable. Chest x-ray consistent with mild pulmonary vascular congestion and cardiomegaly. Her CBC and CMP was remarkable for hemoglobin of 10.9, BUN/creatinine 36 and 2.52, glucose of 160, troponin 20.1 and a BNP of 2262. She was ordered 40 mg of IV Lasix. Allergies Allergy/AdvReac Type Severity Reaction Status Date / Time codeine Allergy Intermediate PSCHO Verified 05/23/24 15:30 COMPLICATIONS PER [facility] Home Medications Medication Instructions Recorded Confirmed Type allopurinol 100 mg tablet 100 mg PO QAM 06/11/19 08/08/24 History clopidogrel 75 mg tablet 75 mg PO QAM #30 tabs 02/24/20 08/08/24 Rx nitroglycerin 0.4 mg sublingual 0.4 mg sublingual UD PRN chest 05/11/22 08/08/24 Rx tablet (Nitrostat) pain #10 tabs furosemide 20 mg tablet 20 mg PO DAILY 09/18/22 08/08/24 History atorvastatin 40 mg tablet 40 mg PO HS 01/06/23 08/08/24 History famotidine 20 mg tablet 20 mg PO AMHS 01/06/23 08/08/24 History albuterol sulfate 90 mcg/actuation 2 puff inhalation QID 03/28/23 08/08/24 History aerosol inhaler (Ventolin HFA) levothyroxine 88 mcg tablet 88 mcg PO QAM 03/28/23 08/08/24 History ondansetron 4 mg disintegrating 4 mg translingual Q8 PRN n/v 03/28/23 08/08/24 History tablet apixaban 2.5 mg tablet (Eliquis) 2.5 mg PO BID 02/29/24 08/08/24 History calcitriol 0.5 mcg capsule 0.5 mcg PO QAM 02/29/24 08/08/24 History docusate sodium 100 mg capsule 100 mg PO BID 03/29/24 08/08/24 History isosorbide mononitrate 30 mg 30 mg PO QAM 03/29/24 08/08/24 History tablet,extended release 24 hr magnesium oxide 400 mg (241.3 mg 400 mg PO DAILY #30 tabs 03/31/24 08/08/24 Rx magnesium) tablet escitalopram oxalate 20 mg tablet 20 mg PO QAM 04/27/24 08/08/24 History metoprolol succinate 25 mg 25 mg PO AMHS 08/08/24 08/08/24 History tablet,extended release 24 hr Past Med/Surg History Problem List Anemia (Acute) Elevated troponin (Acute) Cough (Acute) CHF (congestive heart failure) (Acute) SOB (shortness of breath) (Acute) Thickened endometrium Chronic CHF Visual changes Dizziness (Acute) Acute confusion (Acute) Prolonged QT interval CHF (congestive heart failure) (Acute) Acute hypokalemia (Acute) Weakness (Acute) Hypomagnesemia (Acute) Pneumonia Cardiac pacemaker Nonischemic cardiomyopathy Dyspnea (Acute) Hypoxia (Acute) Pulmonary edema (Acute) Pleural effusion Aspiration pneumonia Pulmonary edema (Acute) Acute exacerbation of CHF (congestive heart failure) (Acute) Acute respiratory failure with hypoxia (Acute) CKD (chronic kidney disease), stage IV Tachycardia-bradycardia syndrome Paroxysmal atrial fibrillation Pneumonia (Acute) Hypoxia (Acute) Intractable nausea and vomiting (Acute) Paroxysmal atrial fibrillation with RVR (Acute) Atrial fibrillation with RVR Generalized weakness History of right MCA stroke Dyslipidemia Type 2 diabetes mellitus HTN (hypertension) (Chronic) Pain, dental (Acute) Atrial fibrillation (Chronic) Medical History Acute kidney injury superimposed on chronic kidney disease Defibrillator discharge Weakness Atrial fibrillation with rapid ventricular response Acute on chronic HFrEF (heart failure with reduced ejection fraction) Pneumonia Acute systolic (congestive) heart failure LBBB (left bundle branch block) History of adenomatous polyp of colon Degenerative disc disease, cervical Hearing loss [place] (generalized anxiety disorder) GERD without esophagitis Vitamin D deficiency Hypertensive cardiomegaly Surgical History History of D&C History of excision of lesion Back - Dr. Tucker History of carpal tunnel surgery History of arthroplasty of left knee Family History Other Diabetes Heart disease Social History Smoking Status: Unknown if ever smoked Second Hand Exposure: No; Do You Dip or Chew Tobacco: No; Hx Alcohol Use: No Hx Substance Use: No Preferred Language: [place] Citizen Communication Ability: Effective Hearing Ability: Hard of Hearing Test And Balance Engineer Required: No Beliefs That Will Affect Care: None marital status: / Current Living Situation: Alone Current Living Situation Comment: Son stays at nighttime and caregivers come throughout the day Other Information That Helps Us Care for You: No Feels Safe at Home: Yes Safety Concerns: Feels Safe At This Time Assistive Devices: Denture - Upper, Denture - Lower, Glasses and Hearing Aid - Bilateral Review of Systems Review of Systems: All systems reviewed & are unremarkable except as noted in HPI & below Physical Exam Physical Exam: Constitutional: elderly, [place], pleasant but confused, WD/WN, vitals as above, NAD, sitting up in bed, pleasant Head: Normocephalic, Atraumatic Eyes: PERRL, conjunctivae normal, anicteric sclerae ENMT: external ear and nose normal, oropharynx normal Neck: trachea midline, no thyromegaly normal visual inspection Respiratory: normal respiratory effort, lungs clear to auscultation, no wheeze, rales, rhonchi. Normal insp/exp effort, no accessory muscle use Cardiovascular: IRR/IRR, no murmur, no edema Vessels: no JVD or carotid bruit Chest: normal inspection of chest Abdomen: normal bowel sounds, soft, nontender, no hepatosplenomegaly Musculoskeletal: no cyanosis or clubbing, AROM x 4 Skin: no rashes, warm and dry normal turgor Neurologic: no face palsy, no dysarthria CN's II-XI intact bilaterally and moves all extremities Psychiatric: A+Ox2 basics, euthymic affect Lymphatic: no cervical or axillary lymphadenopathy : deferred Results & Data Results & Data Vital Signs (Past 12 Hours) Vital Signs Temp Pulse Pulse Resp BP BP Pulse Ox 08/08/24 19:49 95 08/08/24 19:24 36.6 C 83 24 119/85 95 08/08/24 19:24 36.6 C 83 24 119/85 95 O2 Del Method 08/08/24 19:49 Room Air 08/08/24 19:24 Room Air 08/08/24 19:24 Room Air Laboratory Results I have independently reviewed and interpreted patient's admitting labs including CBC, CMP, trop, bnp, biofire, mag Diagnostic Findings CXR reviewed and independently interpreted by myself, cardiomegaly with pulmonary vascular congestion consistent with chf COVID-19 Results Results COVID-19 Adm Lab Results: RBC 3.20 M/uL (4.20-5.40) L 08/09/24 WBC 9.07 K/ul (4.8-10.8) 08/09/24 Hgb 9.6 g/dl (12.0-16.0) L 08/09/24 Hct 30.9 % (37.0-47.0) L 08/09/24 Plt Count 273 K/uL (130-400) 08/09/24 Neutrophils (%) (Auto) 59.0 % 08/09/24 Lymphocytes (%) (Auto) 26.8 % 08/09/24 Monocytes # (Auto) 1.10 K/uL (0.11-0.59) H 08/09/24 Eosinophils # (Auto) 0.09 K/uL (0.00-0.50) 08/09/24 Immature Granulocyte % (Auto) 0.3 % 08/09/24 Neutrophils # (Auto) 5.35 K/uL (1.40-6.50) 08/09/24 Lymphocytes # (Auto) 2.43 K/uL (1.20-3.40) 08/09/24 Monocytes # (Auto) 1.10 K/uL (0.11-0.59) H 08/09/24 Eosinophils # (Auto) 0.09 K/uL (0.00-0.50) 08/09/24 Basophils # (Auto) 0.07 K/uL (0.00-0.20) 08/09/24 Immature Granulocyte # (Auto) 0.03 K/uL (0.01-0.20) 4 Na 141 mmol/L (136-145) 08/09/24 K 3.7 mmol/L (3.5-5.1) 08/09/24 Cl 106 mmol/L (98-107) 08/09/24 CO2 24 mmol/L (21-32) 08/09/24 Anion Gap 11 (3-11) 08/09/24 BUN 39 mg/dl (6-23) H 08/09/24 Creatinine 2.39 mg/dl (0.6-1.2) H 08/09/24 BUN/Creatinine Ratio 16.3 (10-20) 08/09/24 Glucose Level 131 mg/dl (70-99(Fasting)) H 08/09/24 Ca 9.7 mg/dl (8.6-10.3) 08/09/24 Total Bilirubin 2.3 mg/dl (0.2-1.0) H 08/08/24 AST/SGOT 27 U/L (13-39) 08/08/24 ALT/SGPT 12 U/L (7-52) 08/08/24 Alkaline Phosphatase 103 U/L (34-104) 08/08/24 Total Protein 7.4 gm/dl (6.0-8.3) 08/08/24 Albumin 4.4 gm/dl (3.4-5.0) 08/08/24 Globulin 3.0 gm/dl (2.5-4.0) 08/08/24 Albumin/Globulin Ratio 1.5 (0.9-2) 08/08/24 PTT 29 Seconds (21-31) 08/08/24 INR 1.4 (0.9-1.1) H 08/08/24 Adenovirus (PCR) Not Detected (NotDetected) 08/08/24 B. parapertussis DNA (PCR) Not Detected (NotDetected) 07/23 05/15 B. pertussis DNA (PCR) Not Detected (NotDetected) 08/08/24 C. pneumoniae DNA (PCR) Not Detected (NotDetected) 4 Coronavirus Type OC43 (PCR) Not Detected (NotDetected) Coronavirus Type HKU1 (PCR) Not Detected (NotDetected) Coronavirus Type 229E (PCR) Not Detected (NotDetected) COVID-19 PCR Not Detected (NotDetected) 08/08/24 Coronavirus Type NL63 (PCR) Not Detected (NotDetected) Human Metapneumovirus (PCR) Not Detected (NotDetected) Influenza Virus Type A (PCR) Not Detected (NotDetected) Influenza Virus Type B (PCR) Not Detected (NotDetected) M. pneumoniae (PCR) Not Detected (NotDetected) 08/08/24 Parainfluenza Type 1 (PCR) Not Detected (NotDetected) 07/23 05/15 Parainfluenza Type 2 (PCR) Not Detected (NotDetected) 07/23 05/15 Parainfluenza Type 3 (PCR) Not Detected (NotDetected) 07/23 05/15 Parainfluenza Type 4 (PCR) Not Detected (NotDetected) 07/23 05/15 RSV (PCR) Not Detected (NotDetected) 08/08/24 Enterovirus/Rhinovirus (PCR) Not Detected (NotDetected) Chest CT 08/08/24 Chest X-Ray 08/08/24 Code Status & VTE Plan Code Status DNR/DNI Supervising Physician Co-Signing Physician Notes IM ATTENDING : Patient seen and examined. History obtained from patient, family, and records. Limited history from patient secondary to dementia//hearing impairment. Concur with salient points upon review of preceding documentation by Ms. Glenda Harp PA-C. I take responsibility for plan of care below. In addition, patient with cough symptoms which she is not able to expectorate as per family. Transient epistaxis without headache symptoms at the ER. Patient also with abdominal fullness as per family. Chest CT: 1. Subcentimeter layering right pleural effusion noted measuring up to 8 mm in diameter. No evidence for loculation. 2. Diffuse hyperattenuation of the lungs, similar to the previous examination with areas of interlobular septal thickening and peribronchial cuffing. Primary consideration is interstitial and alveolar pulmonary edema. Coexisting infection is difficult to exclude; however, this is considered much less likely given the relatively similar pattern to the prior examination. CT abdomen pelvis: 1. Limited by lack of IV contrast and respiratory. 2. No evidence for bowel obstruction. Evaluation of the bowel mucosa is limited without contrast and respiratory artifact; however, no definite focal asymmetry suggested. Mild stool burden. No free intraperitoneal fluid or pneumoperitoneum. Incidental normal caliber appendix. 3. The remaining presumed incidental findings, as above. FINAL ASSESSMENT AND PLAN as follows : Shortness of breath Multifactorial: Mild CHF, history systolic dysfunction Viral RTI SSS status post PPM on Eliquis, paced rhythm Transient epistaxis, history Eliquis Rx hypertension, patient with borderline BP hyperlipidemia on statin Rx history CVA as per records DM2 diet-controlled, well-controlled as of recent hemoglobin A1c of 7.1 last May 2024 CRI, creatinine at baseline of 2s hypothyroidism, euthyroid as of recent TSH OBS PCU supportive management for presumptive viral respiratory illness Strict I/Os Daily weights, CHF education, fluid restriction Cardiology consult Re: CHF exacerbation Subsequent diuretic Rx as per cardiology Hold Eliquis for now given epistaxis Resume Rx in a.m. if H&H stable and without further bouts of bleeding ISS BG goal 1 10-1 40 DVT prophylaxis. SCDs while Eliquis on hold DNR as per patient's prior directives. Patient son requesting updates from providers. Mr. Reginald Gabriel, contact #[phone]. Text document was generated using [employer] voice recognition software. It may contain grammatical or spelling errors. Kindly contact undersigned for clarification of any documentation item in question. (5) Type 2 diabetes mellitus Chronic kidney disease stage: stage 3 (moderate) Diabetes mellitus complication detail: with chronic kidney disease Diabetes mellitus complication status: with kidney complications Diabetes mellitus keno terminal operator insulin use: without snf use Qualified Code(s): 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
[2024-08-08] MEDS: FUROSEMIDE 40 MG/4 ML VIAL IV ONE (21:00)
[2024-08-08 21:05] LABS: Adenovirus PCR Not Detected (NotDetected); Bordetella parapertussis PCR Not Detected (NotDetected); Bordetella pertussis PCR Not Detected (NotDetected); Chlamydia pneumoniae PCR Not Detected (NotDetected); Coronavirus 229E PCR Not Detected (NotDetected); Coronavirus CoV-2 (COVID19)PCR Not Detected (NotDetected); Coronavirus HKU1 PCR Not Detected (NotDetected); Coronavirus NL63 PCR Not Detected (NotDetected); Coronavirus OC43PCR Not Detected (NotDetected); Human Metapneumovirus PCR Not Detected (NotDetected); Influenza A PCR Not Detected (NotDetected); Influenza B PCR Not Detected (NotDetected); Mycoplasma pneumoniae PCR Not Detected (NotDetected); Parainfluenza Virus 1 PCR Not Detected (NotDetected); Parainfluenza Virus 2 PCR Not Detected (NotDetected); Parainfluenza Virus 3 PCR Not Detected (NotDetected); Parainfluenza Virus 4 PCR Not Detected (NotDetected); Respiratory Syncytial VirusPCR Not Detected (NotDetected); Rhinovirus/Enterovirus PCR Not Detected (NotDetected)
[2024-08-08] MEDS ORDERED: ACETAMINOPHEN 325 MG TAB PO PRN (23:04)
[2024-08-08] MEDS ORDERED: PROMETHAZINE 6.25 MG/50.25 ML BAG IV PRN (23:04)
[2024-08-09] MEDS ORDERED: DEXTROSE 50% 50 ML SYRINGE IV PRN (00:43)
[2024-08-09] MEDS ORDERED: GLUCAGON FOR INJ 1 MG VIAL SQ PRN (00:43)
[2024-08-09] MEDS ORDERED: GLUCOSE 40% GEL 15 GM TUBE PO PRN (00:43)
[2024-08-09] MEDS ORDERED: CARBOHYDRATES FOR HYPOGLYCEMIA PO PRN (00:43)
[2024-08-09] MEDS ORDERED: GLUCOSE 10 TAB/TUBE PO PRN (00:43)
[2024-08-09] MEDS: ALBUMIN 25% 12.5 GM/50 ML VIAL IV STA (00:50)
[2024-08-09] MEDS: INSULIN ASPART PER UNIT CHARGE SC SCH (01:02)
[2024-08-09 01:36] LABS: Troponin I High Sensitivity 16.8 pg/ml (0-14)
--- NOTE | 2024-08-09 02:06 | CT Scan Report ---
Exam(s): CT ABDOMEN + PELVIS Without Contrast EXAM: CT Abdomen and Pelvis Without Intravenous Contrast CLINICAL HISTORY: ABD DISTENTION ON ELIQUIS TECHNIQUE: Axial computed tomography images of the abdomen and pelvis without intravenous contrast. CTDI is 19.11 mGy and DLP is 922.83 mGy-cm. Automated exposure control was utilized for the study. A dose lowering technique was utilized adhering to the principles of ALARA. COMPARISON: CT abdomen and pelvis with contrast dated 05/23/2020 FINDINGS: Limitations: There is respiratory artifact, which degrades image quality on multiple image slices. Lung bases: Unremarkable. No mass. No consolidation. ABDOMEN: Liver: The contours of the unenhanced liver are stable in appearance. Gallbladder and bile ducts: Findings regarding the lung bases, please see the CT report of the chest performed currently. Status post cholecystectomy, stable. No ductal dilation. Pancreas: Unremarkable. No ductal dilation. Spleen: Unremarkable. No splenomegaly. Adrenals: Unremarkable. No mass. Kidneys and ureters: Similar parapelvic and cortical renal cysts are thought to be similar in morphology in appearance, accounting for limitations with lack of IV contrast and respiratory artifact. No new hydronephrosis. Stomach and bowel: No evidence for bowel obstruction. Evaluation of the bowel mucosa is limited without contrast and respiratory artifact; however, no definite focal asymmetry suggested. Mild stool burden. PELVIS: Appendix: A normal caliber appendix is noted medial to the cecum in the right lower quadrant. Bladder: Unremarkable. No stones. Reproductive: Unremarkable as visualized. ABDOMEN and PELVIS: Intraperitoneal space: Unremarkable. No free air. No significant fluid collection. Bones/joints: Multilevel degenerative changes noted throughout the thoracolumbar spine, similar. No acute fracture. No dislocation. Soft tissues: Unremarkable. Vasculature: Atherosclerotic calcification of the normal caliber aorta no aneurysm. Lymph nodes: Unremarkable. No enlarged lymph nodes. IMPRESSION: 1. Limited by lack of IV contrast and respiratory. 2. No evidence for bowel obstruction. Evaluation of the bowel mucosa is limited without contrast and respiratory artifact; however, no definite focal asymmetry suggested. Mild stool burden. No free intraperitoneal fluid or pneumoperitoneum. Incidental normal caliber appendix. 3. The remaining presumed incidental findings, as above. Electronically signed by: Long Ennis MD 08/09/24 02:01 AM
--- NOTE | 2024-08-09 02:06 | CT Scan Report ---
Exam(s): CT CHEST Without Contrast EXAM: CT Chest Without Intravenous Contrast CLINICAL HISTORY: COUGH TECHNIQUE: Axial computed tomography images of the chest without intravenous contrast. CTDI is 13.32 mGy and DLP is 410.02 mGy-cm. Automated exposure control was utilized for the study. A dose lowering technique was utilized adhering to the principles of ALARA. COMPARISON: CT chest without contrast dated 04/28/2024 FINDINGS: Lungs: Diffuse hyperattenuation of the lungs, similar to the previous examination with areas of interlobular septal thickening and peribronchial cuffing. No mass. No consolidation. Pleural space: Subcentimeter layering right pleural effusion noted measuring up to 8 mm in diameter. No evidence for loculation. No pneumothorax. Heart: Cardiomegaly with evidence of a dual lead left subclavian approach pacer. Trace pericardial effusion. At least moderate coronary artery calcification. Mediastinum: Scattered AP window and precarinal lymph nodes, similar in morphology and size measuring up to 9 mm in short axis diameter. Bones/joints: Unremarkable. No acute fracture. No dislocation. Soft tissues: Unremarkable. Vasculature: The unenhanced thoracic aorta is normal in caliber with mild atherosclerotic calcification. No thoracic aortic aneurysm. Lymph nodes: See above. IMPRESSION: 1. Subcentimeter layering right pleural effusion noted measuring up to 8 mm in diameter. No evidence for loculation. 2. Diffuse hyperattenuation of the lungs, similar to the previous examination with areas of interlobular septal thickening and peribronchial cuffing. Primary consideration is interstitial and alveolar pulmonary edema. Coexisting infection is difficult to exclude; however, this is considered much less likely given the relatively similar pattern to the prior examination. Electronically signed by: Long Ennis MD 08/09/24 01:57 AM
[2024-08-09] MEDS: DOCUSATE SODIUM/SENNA 50/8.6MG TAB PO STA (02:56)
[2024-08-09 04:35] LABS: Basophils # (auto) 0.07 K/uL (0.00-0.20); Basophils % (auto) 0.8 %; Eosinophils # (auto) 0.09 K/uL (0.00-0.50); Hematocrit (blood only) 30.9 % (37.0-47.0); Hemoglobin 9.6 g/dl (12.0-16.0); Immature Granulocytes # (auto) 0.03 K/uL (0.01-0.20); Immature Granulocytes % (auto) 0.3 %; Lymphocytes # (auto) 2.43 K/uL (1.20-3.40); Lymphocytes % (auto) 26.8 %; Mean Corpuscular Hgb Conc 31.1 g/dL (32.0-36.0); Mean Corpuscular Volume 96.6 fL (80.0-100.0); Monocytes % (auto) 12.1 %; Neutrophils # (auto) 5.35 K/uL (1.40-6.50); Nucleated RBC # (auto) 0.02 K/uL (0.00-0.12); Nucleated RBC % (auto) 0.2 %; Platelet Count 273 K/uL (130-400); RDW Standard Deviation 64.1 fL (36.4-46.3); White Blood Count 9.07 K/ul (4.8-10.8)
[2024-08-09 04:50] LABS: BUN Creatinine Ratio 16.3 (10-20); Calcium 9.7 mg/dl (8.6-10.3); Potassium 3.7 mmol/L (3.5-5.1)
[2024-08-09] MEDS: LEVOTHYROXINE SODIUM 88 MCG TABLET PO SCH (05:54)
[2024-08-09 06:09] LABS: Appearance Urine Clear (Clear); Bacteria Urine Automated None Seen (None Seen); Bilirubin Urine Negative (Negative); Blood Urine Negative (Negative); Color Urine Yellow; Glucose Urine UA Negative (Negative); Ketones Urine Negative (Negative); Leukocyte Esterase Urine Trace (Negative); Nitrite Urine Negative (Negative); Protein Urine Negative (Negative); RBC Urine Automated 0-2 /hpf (0-2); Specific Gravity Urine 1.009 (1.000-1.030); Urobilinogen Urine Negative (Negative); WBC Urine Automated 0-5 /hpf (0-5); pH Urine 6.5 (4.5-7.5)
[2024-08-09 07:18] VITALS: RESP 19
--- NOTE | 2024-08-09 07:39 | XRay Report ---
XR chest 1V portable HISTORY: 78 years-old Female Dyspnea acute shortness of breath COMPARISON: Chest CT of same day TECHNIQUE: AP view of the chest FINDINGS: Dual-lead left subclavian pacer. Cardiomegaly. No pneumothorax. Trace right pleural effusion. Pulmona ry vascular congestion with hazy ill-defined bilateral mixed interstitial and alveolar opacities. Bon es appear grossly intact. IMPRESSION: 1. Cardiomegaly with pulmonary vascular congestion, hazy bilateral mixed interstitial and alveolar op acities. Findings may represent pulmonary edema versus multifocal pneumonia. 2. Trace right pleural effusion. ACT 112: Negative or not required by law. The above report was generated using voice recognition software. It may contain grammatical, syntax o r spelling errors. Electronically signed by: Catalino Alcocer M.D. 08/09/2024 7:38 AM
--- NOTE | 2024-08-09 07:55 | Electrocardiogram Report ---
Test Reason : Blood Pressure : */* mmHG Vent. Rate : 85 BPM Atrial Rate : 93 BPM P-R Int : * ms QRS Dur : 164 ms QT Int : 468 ms P-R-T Axes : * -88 90 degrees QTcB Int : 556 ms Probable Atrial flutter with intermittent electronic ventricular pacing with occasional Premature roge tricular complexes Right bundle branch block Abnormal ECG When compared with ECG of 23-May-2024 19:20, No significant change Confirmed by Hugh Stephen ([id number]) on 08/09/2024 7:55:17 AM Referred By: REFERRED SELF Confirmed By: Hugh Stephen
[2024-08-09] MEDS: allopurinoL 100 MG TAB PO SCH (08:56)
[2024-08-09] MEDS: CALCITRIOL 0.25 MCG CAPSULE PO SCH (08:59)
--- NOTE | 2024-08-09 08:59 | Cardiology Consultation ---
Date of Consultation August 09, 2024 Assessment & Plan (1) SOB (shortness of breath): (2) Acute exacerbation of CHF (congestive heart failure): (3) Anemia: (4) Epistaxis: Plan Patient admitted with worsening cough, SOB. History of non ischemic cardiomyopathy with severely reduced LVEF < 25% per April 2024 echo. Small right pleural effusion noted on admission. Cough/SOB improved with one dose IV lasix last night. Currently resting comfortably without SOB/edema or hypoxia on room air. Would resume oral lasix at 40 mg daily today. (home dose was listed at 20 mg) Will need f/u BMP next week. She was also admitted with epistaxis. Now resolved. Eliquis held on admission. Hbg slightly lower today at 9.6. If hbg stabilizes and no recurrent epistaxis, resume Eliquis. Continue all other home cardiac medications including atorvastatin, plavix, isosorbide, metoprolol. Case discussed with Dr. La I spent a total of 45 minutes on the date of service in preparation, delivery, and documentation of the care provided to this patient, excluding any time spent in the performance of separately billed services. Maggie Sepulveda PA-C Department of Cardiology, [facility] This chart was completed in part utilizing Speech Voice Recognition Software. Grammatical errors, random word insertions, pronoun errors, and incomplete sentences are an occasional consequence of this system due to software limitations, ambient noise, and hardware issues. Any formal questions or concerns about the content, text, or information contained within the body of this dictation should be directly addressed to the provider for clarification. Supervising Physician Co-Signing Physician Notes I have personally performed a history and physical examination on the patient. I have reviewed the advance practitioner's documentation, and I agree with, and take responsibility for the plan of care. 78-year-old female with underlying dementia present to the emergency department with cough and shortness of breath. Poor historian. History taken from medical records. Patient currently denies cough, shortness of breath, orthopnea, or PND. History of severe LV systolic dysfunction and CKD stage IV. Clinically improved with intravenous furosemide 08/08. Will give additional 40 mg IV furosemide today. Outpatient dose of furosemide 20 mg daily. Titrate to 40 mg daily starting in a.m. 08/10/2024. Monitor daily weight, fluid balance, GFR. She is not a candidate for spironolactone, neprilysin inhibitor, GLORIA inhibitor or ARB due to renal insufficiency. Continue metoprolol, atorvastatin, isosorbide monohydrate as previously ordered. Eliquis currently on hold due to epistaxis. Resume if no recurrent bleeding and hemoglobin remained stable. I spent a total of 35 minutes on the date of service in preparation, delivery, and documentation of the care provided to this patient, excluding any time spent in the performance of separately billed services. Yobany La DO, [facility] History of Present Illness Reason for Consultation: CHF Requesting Physician: Dr. Mckenna Attending Physician: Tejinder Posada DO History of Present Illness Patient is a 78 year old female, known to [facility] Cardiology (Dr. Anne/Dr. Mcelroy) presented to [facility] with complaints of worsening SOB, cough. She has underlying dementia. Most of the information obtained was from inpatient and outpatient records. Patient with recent AVN ablation. Per EP visit in May 2024, patient was still having breakthrough of the AF so AVN ablation was semi successful. Pacemaker mode adjusted to VVIR with base rate of 60 bmp. Metoprolol increased to 25 mg BID. Upon arrival to the ER, Chest xray was consistent with pulm vascular congestion. Elevated BNP. Chest CT revealed right pleural effusion. She was started on IV lasix 40 mg and received one dose. Creatinine elevated on arrival at 2.5 - trending downward to 2.3 this morning. However, this is close to baseline per outpatient records with creatinine ranging 1.8-2.5 over the last few months. HS troponin only minimally elevated at 20 - then 16.8 EKG without acute ischemic changes. No chest pain reported. She reported significnat epistaxis yesterday. Eliquis held on admission. hbg trending lower this morning at 9.6. No recurrent bleeding. At time of consult, patient feeling well this morning. Reports her cough has improved. No SOB at rest. No chest pain. No edema. No orthopnea. History includes: TBS s/p [employer] ppm 08/14/2020 NICM EF 40% in 07/2020 and back in 2012; worsening on repeat echo 08/2022 EF 25- 29% with dyssynchrony of the septum on the repeat echo making her DDD; with left bundle ppm the EF is still low 25-29% but there is no longer any dyssynchrony of the septum. EF April 2024 < 25% - underwent AV eduardo ablation HTN DM HLD PAT pAF on amiodarone started 07/2020 (discontinued 01/09/2023 due to concerns for amiodarone toxicity Ground-glass opacities and hyperdense liver per CT of the chest at [facility] 12/2022) and Eliquis [id number] (HTN, Female, Age, CVA, DM), s/p AV node ablation 05/01/24 DM CVA of right MCA CKD stage III-IV Allergies Allergy/AdvReac Type Severity Reaction Status Date / Time codeine Allergy Intermediate PSCHO Verified 05/23/24 15:30 COMPLICATIONS PER [facility] Home Medications Medication Instructions Recorded Confirmed Type allopurinol 100 mg tablet 100 mg PO QAM 06/11/19 08/08/24 History clopidogrel 75 mg tablet 75 mg PO QAM #30 tabs 02/24/20 08/08/24 Rx nitroglycerin 0.4 mg sublingual 0.4 mg sublingual UD PRN chest 05/11/22 08/08/24 Rx tablet (Nitrostat) pain #10 tabs atorvastatin 40 mg tablet 40 mg PO HS 01/06/23 08/08/24 History famotidine 20 mg tablet 20 mg PO AMHS 01/06/23 08/08/24 History albuterol sulfate 90 mcg/actuation 2 puff inhalation QID 03/28/23 08/08/24 History aerosol inhaler (Ventolin HFA) levothyroxine 88 mcg tablet 88 mcg PO QAM 03/28/23 08/08/24 History ondansetron 4 mg disintegrating 4 mg translingual Q8 PRN n/v 03/28/23 08/08/24 History tablet apixaban 2.5 mg tablet (Eliquis) 2.5 mg PO BID 02/29/24 08/08/24 History calcitriol 0.5 mcg capsule 0.5 mcg PO QAM 02/29/24 08/08/24 History docusate sodium 100 mg capsule 100 mg PO BID 03/29/24 08/08/24 History isosorbide mononitrate 30 mg 30 mg PO QAM 03/29/24 08/08/24 History tablet,extended release 24 hr magnesium oxide 400 mg (241.3 mg 400 mg PO DAILY #30 tabs 03/31/24 08/08/24 Rx magnesium) tablet escitalopram oxalate 20 mg tablet 20 mg PO QAM 04/27/24 08/08/24 History metoprolol succinate 25 mg 25 mg PO AMHS 08/08/24 08/08/24 History tablet,extended release 24 hr furosemide 20 mg tablet 40 mg (2 x 20 mg) PO DAILY 30 days 08/09/24 Rx #60 tabs Patient History Medical History Acute kidney injury superimposed on chronic kidney disease Defibrillator discharge Weakness Atrial fibrillation with rapid ventricular response Acute on chronic HFrEF (heart failure with reduced ejection fraction) Pneumonia Acute systolic (congestive) heart failure LBBB (left bundle branch block) History of adenomatous polyp of colon Degenerative disc disease, cervical Hearing loss MELQUIADES (generalized anxiety disorder) GERD without esophagitis Vitamin D deficiency Hypertensive cardiomegaly Surgical History History of D&C History of excision of lesion Back - Dr. 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 Beliefs That Will Affect Care: None marital status: / Current Living Situation: Alone Current Living Situation Comment: Son stays at nighttime and caregivers come throughout the day Other Information That Helps Us Care for You: No Feels Safe at Home: Yes Safety Concerns: Feels Safe At This Time Assistive Devices: Denture - Upper, Denture - Lower, Glasses and Hearing Aid - Bilateral Review of Systems Review of Systems: All systems reviewed & are unremarkable except as noted in HPI & below Physical Exam Constitutional: WD/WN, vitals as above no acute distress Neck: trachea midline, no thyromegaly Respiratory: normal respiratory effort; no labored breathing Auscultation: + diminished lung sounds; no crackles and no rales Cardiovascular: Rate/Rhythm: + irregularly irregular Heart Sounds: + murmur (II/ systolic murmur) Vessels: + JVD Extremities: no edema Gastrointestinal (Abdomen): normal bowel sounds, soft, nontender, no hepatosplenomegaly Musculoskeletal: no cyanosis or clubbing, extremities motor strength 5/5 Results & Data Vital Signs (Past 12 Hours) Vital Signs Temp Pulse Pulse Resp BP Pulse Ox O2 Del Method 08/09/24 07:40 73 08/09/24 07:14 36.3 C L 95 H 19 115/74 91 Room Air 08/09/24 02:48 85 08/09/24 02:10 36.4 C L 77 18 102/70 92 Room Air 08/09/24 02:08 Room Air 08/09/24 00:00 36.5 C 98 H 18 124/85 92 Room Air 08/08/24 21:04 86 18 121/86 94 Room Air Laboratory Results Cardiac Enzymes 08/08/24 08/09/24 Range/Units 19:33 00:32 AST 27 (13-39) U/L Troponin I High Sens 20.1 H 16.8 H (0-14) pg/ml B-Natriuretic Peptide 2262 H (0-100) pg/ml Coagulation 08/08/24 Range/Units 19:33 PT 14.7 H (9.0-12.0) Seconds APTT 29 (21-31) Seconds B-Natriuretic Peptide 2262 H (0-100) pg/ml CBC 08/08/24 08/09/24 Range/Units 19:33 04:00 WBC 9.48 9.07 (4.8-10.8) K/ul RBC 3.64 L 3.20 L (4.20-5.40) M/uL Hgb 10.9 L 9.6 L (12.0-16.0) g/dl Hct 36.6 L 30.9 L (37.0-47.0) % Plt Count 291 273 (130-400) K/uL Neut # (Auto) 5.23 5.35 (1.40-6.50) K/uL Lymph # (Auto) 2.80 2.43 (1.20-3.40) K/uL Dyer # (Auto) 1.27 H 1.10 H (0.11-0.59) K/uL Eos # (Auto) 0.08 0.09 (0.00-0.50) K/uL Baso # (Auto) 0.08 0.07 (0.00-0.20) K/uL Comprehensive Metabolic Panel 08/08/24 08/09/24 Range/Units 19:33 04:00 Sodium 142 141 (136-145) mmol/L Potassium 3.9 3.7 (3.5-5.1) mmol/L Chloride 104 106 (98-107) mmol/L Carbon Dioxide 23 24 (21-32) mmol/L BUN 36 H 39 H (6-23) mg/dl Creatinine 2.52 H 2.39 H (0.6-1.2) mg/dl Glucose 160 H 131 H (70-99(Fasting)) mg/dl Calcium 10.2 9.7 (8.6-10.3) mg/dl AST 27 (13-39) U/L ALT 12 (7-52) U/L Alkaline Phosphatase 103 (34-104) U/L Total Protein 7.4 (6.0-8.3) gm/dl Albumin 4.4 (3.4-5.0) gm/dl Intake and Output 08/08/24 08/09/24 08/09/24 22:59 06:59 14:59 Intake Total 50 / 50 Output Total 300 / 300 200 / 200 Balance -250 / -250 -200 / -200 Intake: IV 50 / 50 Albumin 25% 12.5 gm In 50 ml @ 50 / 50 50 mls/hr IV ONE STA Rx#: [id number] Output: Urine 300 / 300 200 / 200 Other: # Unmeasured Voids 1 Weight 69.4 kg 68.7 kg Weight Measurement Method Built in [facility] Built in [facility] Diagnostic Findings Telemetry reviewed: Afib and intermittent ventricular pacing, rates 80-90 bmp. EKG reviewed from 08/08/24: Underlying atrial flutter with intermittent ventricular pacing. Chest X-Ray 08/08/24 19:47 XR chest 1V portable HISTORY: 78 years-old Female Dyspnea acute shortness of breath COMPARISON: Chest CT of same day TECHNIQUE: AP view of the chest FINDINGS: Dual-lead left subclavian pacer. Cardiomegaly. No pneumothorax. Trace right pleural effusion. Pulmonary vascular congestion with hazy ill-defined bilateral mixed interstitial and alveolar opacities. Bones appear grossly intact. IMPRESSION: 1. Cardiomegaly with pulmonary vascular congestion, hazy bilateral mixed interstitial and alveolar opacities. Findings may represent pulmonary edema versus multifocal pneumonia. 2. Trace right pleural effusion. ACT 112: Negative or not required by law. The above report was generated using voice recognition software. It may contain grammatical, syntax or spelling errors Electronically signed by: Catalino Alcocer M.D. 08/09/2024 7:[address] 08/08/24 23:04 Exam(s): CT CHEST Without Contrast EXAM: CT Chest Without Intravenous Contrast CLINICAL HISTORY: COUGH TECHNIQUE: Axial computed tomography images of the chest without intravenous contrast. CTDI is 13.32 mGy and DLP is 410.02 mGy-cm. Automated exposure control was utilized for the study. A dose lowering technique was utilized adhering to the principles of ALARA. COMPARISON: CT chest without contrast dated 04/28/2024 FINDINGS: Lungs: Diffuse hyperattenuation of the lungs, similar to the previous examination with areas of interlobular septal thickening and peribronchial cuffing. No mass. No consolidation. Pleural space: Subcentimeter layering right pleural effusion noted measuring up to 8 mm in diameter. No evidence for loculation. No pneumothorax. Heart: Cardiomegaly with evidence of a dual lead left subclavian approach pacer. Trace pericardial effusion. At least moderate coronary artery calcification. Mediastinum: Scattered AP window and precarinal lymph nodes, similar in morphology and size measuring up to 9 mm in short axis diameter. Bones/joints: Unremarkable. No acute fracture. No dislocation. Soft tissues: Unremarkable. Vasculature: The unenhanced thoracic aorta is normal in caliber with mild atherosclerotic calcification. No thoracic aortic aneurysm. Lymph nodes: See above. IMPRESSION: 1. Subcentimeter layering right pleural effusion noted measuring up to 8 mm in diameter. No evidence for loculation. 2. Diffuse hyperattenuation of the lungs, similar to the previous examination with areas of interlobular septal thickening and peribronchial cuffing. Primary consideration is interstitial and alveolar pulmonary edema. Coexisting infection is difficult to exclude; however, this is considered much less likely given the relatively similar pattern to the prior examination. Electronically signed by: Long Ennis MD 08/09/24 01:57 AM Echo report reviewed dated April 2024: LV is dilated with severely reduced global systolic function with EF < 25% LA is moderately dilated Moderate MR Mild to Moderate TR Medications Administered Current Inpatient Medications Acetaminophen (Acetaminophen 325 Mg Tab) 650 mg PO QID PRN PRN Reason: pain/fever Stop: 09/07/24 23:03 Allopurinol (Allopurinol 100 Mg Tab) 100 mg PO QAM ALYSSA Stop: 09/08/24 08:59 Last Admin: 08/09/24 08:56 Dose: 100 mg Atorvastatin Calcium (Atorvastatin 40 Mg Tab) 40 mg PO HS ALYSSA Stop: 09/08/24 20:59 Calcitriol (Calcitriol 0.25 Mcg Capsule) 0.5 mcg PO QAM ALYSSA Stop: 09/08/24 08:59 Last Admin: 08/09/24 08:59 Dose: 0.5 mcg Dextrose (Dextrose 50% 50 Ml Syringe) 25 - 50 ml IV UD PRN; Protocol PRN Reason: Hypoglycemia Protocol Stop: 09/08/24 00:42 Docusate Sodium (Docusate Sodium 100 Mg Cap) 100 mg PO BID ALYSSA Stop: 09/08/24 20:59 Escitalopram Oxalate (Escitalopram Oxalate 20 Mg Tab) 20 mg PO QAM ALYSSA Stop: 09/08/24 08:59 Last Admin: 08/09/24 09:01 Dose: 20 mg Famotidine (Famotidine 20 Mg Tab) 20 mg PO AMHS ALYSSA Stop: 09/08/24 08:59 Last Admin: 08/09/24 09:02 Dose: 20 mg Glucagon (Glucagon For Inj 1 Mg Vial) 1 mg SQ UD PRN; Protocol PRN Reason: Hypoglycemia Protocol Stop: 09/08/24 00:42 Glucose (Glucose 40% Gel 15 Gm Tube) 15 - 30 gm PO UD PRN; Protocol PRN Reason: Hypoglycemia Protocol Stop: 09/08/24 00:42 Glucose (Glucose 10 Tab/Tube) 4 - 8 tab PO UD PRN; Protocol PRN Reason: Hypoglycemia Treatment Stop: 09/08/24 00:42 Guaifenesin (Guaifenesin 600 Mg Tabcr) 600 mg PO Q12 ALYSSA Stop: 09/08/24 06:39 Last Admin: 08/09/24 09:06 Dose: 600 mg Promethazine HCl (Phenergan) 6.25 mg in 50.25 mls @ 201 mls/hr IV Q6H PRN PRN Reason: Nausea And Vomiting Stop: 09/07/24 23:03 Insulin Aspart (Insulin Aspart Per Unit Charge) 0 units SC ACHS [facility] Stop: 09/08/24 00:42 Last Admin: 08/09/24 08:55 Dose: 2 units Isosorbide Mononitrate (Isosorbide Dyer Extended Rel 30 Mg Tabcr) 30 mg PO QAM [facility] Stop: 09/08/24 08:59 Last Admin: 08/09/24 09:02 Dose: 30 mg Levothyroxine Sodium (Levothyroxine Sodium 88 Mcg Tablet) 88 mcg PO DAILYBB [facility] Stop: 09/08/24 06:29 Last Admin: 08/09/24 05:54 Dose: 88 mcg Metoprolol Succinate (Metoprolol Succ 25mg Ext Rel Tab) 25 mg PO AMHS [facility] Stop: 09/08/24 08:59 Last Admin: 08/09/24 09:04 Dose: 25 mg Miscellaneous (Carbohydrates For Hypoglycemia ) 15 - 30 gm PO UD PRN PRN Reason: Hypoglycemia Protocol Stop: 09/08/24 00:42 (3) Anemia Anemia type: unspecified type Qualified Code(s): D64.9 - Anemia, unspecified
[2024-08-09] MEDS ORDERED: DOCUSATE SODIUM 100 MG CAP PO SCH ×2 (09:00→21:00)
[2024-08-09] MEDS: ESCITALOPRAM OXALATE 20 MG TAB PO SCH (09:01)
[2024-08-09] MEDS: FAMOTIDINE 20 MG TAB PO SCH (09:02)
[2024-08-09] MEDS: ISOSORBIDE MONO EXTENDED REL 30 MG TABCR PO SCH (09:02)
[2024-08-09] MEDS: METOPROLOL SUCC 25MG EXT REL TAB PO SCH (09:04)
[2024-08-09] MEDS: guaiFENesin 600 MG TABCR PO SCH (09:06)
--- NOTE | 2024-08-09 12:55 | Discharge Summary ---
Discharge Summary Date of Service August 09, 2024 Principal Dx & Hospital Course #1 = Principal Diagnosis (1) Acute on chronic HFrEF (heart failure with reduced ejection fraction): (2) Paroxysmal atrial fibrillation: (3) Tachycardia-bradycardia syndrome: (4) CKD (chronic kidney disease), stage IV: (5) Type 2 diabetes mellitus: (6) Epistaxis: Plan Patient presented to the emergency room with complaints of increasing cough for 3 days. Evaluation in the emergency room was consistent with decompensated heart failure with vascular congestion noted on chest x-ray and elevated BNP. Patient was admitted to the hospital. She was given IV diuresis. Patient rapidly responded to this therapy. Her cough improved. She did not require any supplemental oxygen. By the following day her vital signs are stable. She states she is feeling much improved and wanted to go home. She was evaluated by cardiology. They felt as though she was at a euvolemic state. Recommended increasing her home diuretic to Lasix 40 mg daily. Patient's renal function history was reviewed. Appears as though her creatinine is essentially within her baseline and no evidence of acute decompensation. Patient is chronically anemic most likely due to her chronic renal disease. She reported some epistaxis at the time of admission. No significant epistaxis occurred during her observation period here in the hospital. She will continue her Eliquis for paroxysmal atrial fibrillation. Do not see a definitive indication for Plavix with the risk for bleeding we will have her discontinue the Plavix and continue the Eliquis and can continue to monitor through her PCP. At the time of discharge her sisters were at her bedside. Aware of the change in her medications and agreeable to plans for discharge. Notes For Next Care Provider Medication Changes From Visit Lasix increased to 40 mg daily Plavix discontinued Admission HPI Per Admitting Provider This is a 78-year-old female who has a significant past medical history of nonischemic cardiomyopathy, chronic systolic and diastolic CHF, TBS status post PPM, permanent atrial fibrillation, CKD stage IV, T2dm, HTN, HLD, history of CVA, dementia, GERD and anxiety who presents to ED due to cough x 3 days.patient reports that she has been coughing for 3 days. It is intermittently productive. She denies any sick contacts. She denies any fever, chills, sweats, lightheadedness, dizziness, chest pain, shortness of breath, nausea, vomiting. She denies any sick contacts. Family at bedside who also helps elicit history. They report son has not been weighing patient. She has been compliant with meds. She has been eating out a lot and eating packaged foods. She does not watch salt intake. She is very hard of hearing. She continues to have visual hallucinations for which she sees neuro for. They are planning on putting her on memantine. In ED patient remained hemodynamically stable. Chest x-ray consistent with mild pulmonary vascular congestion and cardiomegaly. Her CBC and CMP was remarkable for hemoglobin of 10.9, BUN/creatinine 36 and 2.52, glucose of 160, troponin 20.1 and a BNP of 2262. She was ordered 40 mg of IV Lasix. Admission Exam Per Admitting Provider See H&P Discharge Exam Constitutional: Alert, pleasant, no acute distress HEENT: Mucous membranes moist. Lungs: Clear to auscultation, decreased, few fine crackles, improved CV: S1-S2, irregular Abdomen: Soft, nontender, nondistended Extremities: No significant edema Neuro: No focal deficits Psych: Cooperative, normal mood, mild impaired memory Updated Medication List Medication Instructions Recorded Confirmed Type allopurinol 100 mg tablet 100 mg PO QAM 06/11/19 08/08/24 History clopidogrel 75 mg tablet 75 mg PO QAM #30 tabs 02/24/20 08/08/24 Rx nitroglycerin 0.4 mg sublingual 0.4 mg sublingual UD PRN chest 05/11/22 08/08/24 Rx tablet (Nitrostat) pain #10 tabs atorvastatin 40 mg tablet 40 mg PO HS 01/06/23 08/08/24 History famotidine 20 mg tablet 20 mg PO AMHS 01/06/23 08/08/24 History albuterol sulfate 90 mcg/actuation 2 puff inhalation QID 03/28/23 08/08/24 History aerosol inhaler (Ventolin HFA) levothyroxine 88 mcg tablet 88 mcg PO QAM 03/28/23 08/08/24 History ondansetron 4 mg disintegrating 4 mg translingual Q8 PRN n/v 03/28/23 08/08/24 History tablet apixaban 2.5 mg tablet (Eliquis) 2.5 mg PO BID 02/29/24 08/08/24 History calcitriol 0.5 mcg capsule 0.5 mcg PO QAM 02/29/24 08/08/24 History docusate sodium 100 mg capsule 100 mg PO BID 03/29/24 08/08/24 History isosorbide mononitrate 30 mg 30 mg PO QAM 03/29/24 08/08/24 History tablet,extended release 24 hr magnesium oxide 400 mg (241.3 mg 400 mg PO DAILY #30 tabs 03/31/24 08/08/24 Rx magnesium) tablet escitalopram oxalate 20 mg tablet 20 mg PO QAM 04/27/24 08/08/24 History metoprolol succinate 25 mg 25 mg PO AMHS 08/08/24 08/08/24 History tablet,extended release 24 hr furosemide 20 mg tablet 40 mg (2 x 20 mg) PO DAILY 30 days 08/09/24 Rx #60 tabs Hospital Stay Data Consultations 08/08/24 20:42 ED Decision to Admit Stat 08/09/24 04:44 Consult Cardiology Routine Diagnostic Imagining Performed 08/08/24 23:04 CT Abd and Pelvis [CT abd pelvis wo con] Stat CT chest diagnostic wo con Stat Reviewed imaging, laboratory and diagnostic studies. Pertinent findings as below. WBCs 9.0 Hemoglobin 9.6 Potassium 3.7 Creatinine 2.39 Magnesium 2.1 Troponin was trended and remained flat, no evidence of acute coronary syndrome Urinalysis unremarkable Respiratory viral panel negative Pending Results Patient Have Any Pending Studies at Discharge: No Discharge Instructions Given to Patient (Per Discharging Provider) Call 911 and go to the Emergency Room if: * You have tightness or pain in your chest that does not go away with rest or Nitroglycerin * You are very short of breath even with rest Call your doctor if any of the following symptoms or problems start or get worse: * Shortness of breath or difficulty breathing * Wake up at night short of breath * Chest pain * Cough * Swelling of your hands, fee, or legs * More fatigued or tired with your normal activity * Palpitations - sudden fast heart beats WEIGHT * Weigh yourself every morning after using the bathroom. * Use the same scale. * Wear the same amount of clothing. * Write your weight down on your chart. * Call your doctor if you gain more than 2-3 pounds in 1-2 days. MEDICATIONS * Use this discharge instruction sheet for instructions. * Take your medications at the time your doctor ordered. * Do not skip a dose of your medicines. * If you miss a dose of medicine, take as soon as possible, but DO NOT DOUBLE A DOSE. * Read your medicine information when you get home. * Know all of the side effects of your medicine. * Call your doctor's office if you have any side effects. * Be sure all of your doctors know what medicine and herbs you take (including cold, flu, and herbal medicine). * Pain Medicine: If you do not get relief from your pain, please call your doctor for help. Take the following with you to your follow-up doctor appointments: * Weight Chart * Medication List * List of questions Do not drink excessive alcohol, beer or wine. Total Time Total Time Spent Total Time Spent (In Minutes): 32
--- OUTSIDE RECORDS SUMMARY | 2024-08-09 13:15 | External Medical Summary | Summary of Care ---
Author Name Unknown Organization [facility] Address [address] [place] [address] Phone [phone] Care Team Providers Care [employer] Storage Architect Name Role Phone Kasandra Antunez DO Primary Care Provider Reason for Visit * Reason Onset Date Comments Hospital Follow-Up 05/06/2024 Encounter Details Date Type Department Care Team (Late st Contact Info) Description 05/06/2024 Telephone General Internal Medicine [facility] [address] [place] [address] Kasandra Antunez DO 200 [facility] [place] [address] Hospital Follow-Up Allergies Active Allergy Reactions Criticality Noted Date Comments Codeine Psych complications 12/05/2011 documented as of this encounter (statuses as of 08/05/2024) Medications Medication Sig Dispensed Refills Start Date [...] Active Additional Information Patient not taking.Reported on 08/02/2024 Rollator Ultra-Light Use as directed/needed 1 Each 07/05/2022 Active Triamcinolone Acetonide 0.5 % External Cream (Aristocort) Apply topically to affected area 2 times a day. To affected area. 60 g 5 10/11/2022 Active Nitroglycerin 0.4 MG Sublingual Tablet Sublingual [...] AT BEDTIME 54 g 3 11/02/2023 Active Atorvastatin Calcium 40 MG Oral Tablet [...] the morning. 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 10/12/2022 Idiopathic gout of multiple sites 06/07/2022 Aspiration pneumonia of right lower lobe due to vomit 11/26/2021 NICM (nonischemic cardiomyopathy) 09/14/2021 Cardiac pacemaker in [...] as of this encounter (statuses as of 08/05/2024) Resolved Problems Problem Noted Date Diagnosed Date Resolved Date Prediabetes 10/08/2021 08/05/2024 Acute respiratory failure with hypoxia 10/08/2021 11/03/2021 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 [...] as of this encounter (statuses as of 08/05/2024) Immunizations Name Administration Dates Next Due COVID-19 mRNA, LNP-s, No Pre serve, 2-Dose Series (Moderna) 11/19/2021,05/19/2021,04/21/2021 COVID-19, MRNA-LNP, 23-24, P F, 50 MCG/0.5 mL, 12 YRS AND ABOVE, IM (MODERNA-Spikevax) 07/21/2023 Covid-19, Mrna, Lnp-s, Pf, B ivalent, 30 Mcg, IM, 12 yrs and above (Pfizer) 09/29/2022 Pneumococcal Conjugate Vacc, 13 Valent (Prevnar) 08/03/2015 Pneumococcal Conjugate Vacci ne, 20-valent ([id number]) 04/11/2024 Pneumococcal Polysaccharide PPV23 (Pneumovax) 09/09/2013,10/19/2010,08/20/2007 Season Influenza, Quad, PF, Adjuvanted, 65+ Yrs, IM (FLUAD) 07/08/2023,07/06/2020 Seasonal Influenza Vac., MDV , IM, 0.5 mL (Fluzone) 08/05/2014,08/22/2013,07/18/2012(Defer red: Patient Refused) Seasonal Influenza, Quadriva lent Hd (Fluzone Hd) 07/30/2022,07/09/2021 Seasonal Influenza, Quadriva lent, No Preserve, IM 09/19/2016,08/03/2015 Seasonal Influenza, Trivalen t, Adjuvanted, 65+ YRS, PF, (Fluad) 09/04/2019 TD - Tetanus/Diptheria (ADULT) 10/14/2011 TDAP [...] Telephone Encounter - Alex Blank OSA - 05/06/2024 12:29 PM EDT Patient has a previously scheduled FU appt with EP on: 06/18/2024 Status: Ash Time: 2:00 PM Length: 30 Visit Type: RETURN EP CARDIO [[id number]] Reg Status: Verified Copay: $0.00 Provider: Ruby Blandon CRNP * Telephone Encounter - Francisco Morales RN - 05/06/2024 12:02 PM EDT Patient discharged from [facility] 05/02/24. Cardiology was consulted for CHF and afib with rvr. Dr Anne recommends cardiology follow up 2 to 3 weeks time. Please assist with scheduling this appt. Thank you documented in this encounter Plan of Treatment Upcoming Encounters Date Type Department Care Team (Late st Contact Info) Description 08/30/2024 2:30 PM EST Office Visit Cardiology, [facility] [address] [facility] [place] [address] Brian Anne MD 132 [facility] [place] [address] 2024 2:00 PM EST Office Visit Family Practice [facility] [address] [facility] [place] [address] Kasandra Antunez DO 200 [facility] [place] [address] 02/21/2025 3:00 PM EDT Office Visit Neurology [facility] 200 [facility] [place] [address] Chichi Varela CRNP [address] [place] [address] Scheduled Procedures Name Priority Associated Diagnoses Date/Ti me COLONOSCOPY FLEXIBLE PROXIMAL DIAGNOSTIC Recall History of colon polyps Health Maintenance Due Date Last Done Comments Zoster Vaccines (2 of 3) 02/01/2016 12/07/2015 Diabetic Eye Exam 11/23/2016 11/23/2015, 05/04/2011 Adult Wellness Visit 06/23/2018 06/23/2017 Diabetic Foot Exam 03/23/2021 03/23/2020, 0 06/10/2019, 02/06/2018, Additional history exists Colonoscopy 05/19/2021 05/19/2016, 05/19/2016 COVID-19 Vaccine ( season) 2024 07/21/2023, 09/29/2022, 11/19/2021, Additional history exists PTH 09/22/2024 09/22/2023, 09/0 05/2022, 01/27/2022, Additional history exists Albumin/Creatinine Ratio 09/25/2024 023, 03/24/2021, 01/22/2016, Additional history exists TSH 10/19/2024 10/19/2023, 04/22, 09/06/2022, Additional history exists GFR 12/11/2024 06/10/2024, 03/24, 04/09/2024, Additional history exists HbA1c 12/11/2024 06/10/2024, 03/23, 09/22/2023, Additional history exists Depression Screening 03/26/2025 03/26/2024 Nephrology Referral 03/27/2025 03/27/2024, 2 Hgb 04/09/2025 04/09/2024, 02/21, 03/08/2024, Additional history exists Phosphate 04/09/2025 04/09/2024, 08/23, 06/30/2022, Additional history exists DTap/Tdap Vaccines (4 - Td or Tdap) 05/28/2033 05/28/2023, 10/14/2011, 10/14/2011, Additional history exists RETIRED - COLONOSCOPY-EVERY 5 YRS AGES 18-100 Discontinued 05/19/2016, 05/19/2016 Pneumococcal Vaccine: 65+ Years Completed 04/11/2024, 08/03/2015, 09/09/2013, Additional history exists Influenza Vaccine (FLU shot) Completed 06/28/2024, 07/08/2023, 07/30/2022, Additional history exists HPV (Gardasil) Vaccine Aged [...] Documents on File Type Date Recorded Patient Funeral Service Licensee Expl anation Power of Network Cable Installer 04/08/2024 Rajeev "Reginald" Chronsandie signed on 04/05/2024 Durable Health Care POA Advance Directives and Living Will 06/15/2022 [place] Advance Health Ca re Directive - signed 06/15/2020 Healthcare Agents on File Name Relationship Healthcare Agent Relationship Communication Rajeev Ritter" Harvey Adult Child Health C are Agent (per Health Care Power of Network Cable Installer document) [email or web address] [email or web address] Emc Storage Architect Relationship Specialty Start Date End Date Kasandra Antunez DO [address] [place] [address] PCP - General Family Medicine 10/28/11 documented as of this encounter
--- OUTSIDE RECORDS SUMMARY | 2024-08-09 13:16 | External Medical Summary | Summary of Care ---
Author Name Unknown Organization [facility] Address [address] [place] [address] Phone [phone] Care Team Providers Care Ground Service Equipment Mechanic Name Role Phone Harmony Kasandra Paige DO Primary Care Provider Reason for Visit * Reason Onset Date Comments Lube Technician Documentation 06/21/2024 AD Scan audit Encounter Details Date Type Department Care Team (Late st Contact Info) Description 06/21/2024 Telephone Care Management, [place] [address] [place] [address] Radha Reza, SENIOR NETWORK SECURITY ENGINEER Lube Technician Documentation (AD Scan audit) Allergies Active Allergy Reactions Criticality Noted Date Comments Codeine Psych complications 12/05/2011 documented as of this encounter (statuses as of 06/21/2024) Medications Medication Sig Dispensed Refills Start Date [...] 05/08/2023 Active Calcitriol 0.5 MCG Oral Capsule (Rocaltrol)Indication s:Vitamin D deficiency Take 1 Capsule by mouth in the morning. 3 Capsule 11 10/19/2023 Active Ventolin HFA 108 (90 Base) MCG/ACT Inhalation Aerosol SolutionIndications:C ough INHALE 2 PUFFS IN THE MORNING, 2 PUFFS AT NOON, 2 PUFFS IN THE EVENING AND 2 PUFFS AT BEDTIME 54 g 3 11/02/2023 Active Clopidogrel Bisulfate 75 MG Oral Tablet [...] the morning. 30 Tablet 5 04/19/2024 Active Allopurinol 100 MG Oral Tablet (Zyloprim)Indications :Gout of big toe TAKE 1 TABLET BY MOUTH ONCE DAILY IN THE MORNING 90 Tablet 3 05/15/2024 Active Ondansetron 4 MG Oral Tablet Disintegrating (Zofran) Place under the tongue 1 Tablet every 8 hours as needed for Nausea or Vomiting. 20 Tablet 11 05/17/2024 Active Magnesium Oxide 400 MG Oral Tablet Take 1 Tablet by mouth in the morning. Active Levothyroxine Sodium 88 MCG Oral Tablet (Levoxyl) TAKE 1 TABLET BY MOUTH ONCE DAILY IN THE MORNING AT LEAST 30 MINUTES PRIOR TO BREAKFAST OR OTHER MEDS 90 Tablet 1 06/14/2024 Active Metoprolol Succinate ER 25 MG Oral Tablet Extended Release 24 Hour (toPROL XL) Take 1 Tablet by mouth in the morning and 1 Tablet before bedtime. 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 [...] as of this encounter (statuses as of 06/21/2024) Resolved Problems Problem Noted Date Diagnosed Date Resolved Date Acute respiratory failure with hypoxia 10/08/2021 11/03/2021 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 [...] as of this encounter (statuses as of 06/21/2024) Immunizations Name Administration Dates Next Due COVID-19 mRNA, LNP-s, No Pre serve, 2-Dose Series (Moderna) 11/19/2021,05/19/2021,04/21/2021 COVID-19, MRNA-LNP, 23-24, P F, 50 MCG/0.5 mL, 12 YRS AND ABOVE, IM (MODERNA-Spikevax) 07/21/2023 Covid-19, Mrna, Lnp-s, Pf, B ivalent, 30 Mcg, IM, 12 yrs and above (Pfizer) 09/29/2022 Pneumococcal Conjugate Vacc, 13 Valent (Prevnar) 08/03/2015 Pneumococcal Conjugate Vacci ne, 20-valent ([id number]) 04/11/2024 Pneumococcal Polysaccharide PPV23 (Pneumovax) 09/09/2013,10/19/2010,08/20/2007 Season Influenza, Quad, PF, Adjuvanted, 65+ Yrs, IM (FLUAD) 07/08/2023,07/06/2020 Seasonal Influenza, Quadriva lent Hd (Fluzone Hd) 07/30/2022,07/09/2021 Seasonal Influenza, Quadriva lent, No Preserve, IM 09/19/2016,08/03/2015 Seasonal Influenza, Trivalen t, (IIV3), with Preserv, (Fluzone) 08/05/2014,08/22/2013,07/18/2012(Defer red: Patient Refused) Seasonal Influenza, Trivalen t, Adjuvanted, 65+ YRS, [...] as of this encounter Miscellaneous Notes * ACP (Advance Care Planning) - Radha Reza LCSW - 06/21/2024 10:35 AM EDT Advance Care Planning Advance Directive Documents Chart Audit Bia TABOR Review of Advance Directives scanned to chart; per requirements of [place] law (Act 169 of 2005) Document reviewed is a Durable Health Care Power of Pharmacy Buyer scan on 04/08/2024 and signed on 04/05/2024. Properly signed and witnessed. Patient did not date her signature however it is notarized and the notary date can suffice for the date of this document. Patient also has a [place] Advance Health Care Directive dated 06/15/2020 which is superseded by the above document. Additional comments: If appropriate, Health Care Agent contact information updated and advance directive document attached to support surrogate decision maker title. Changes made in Director Of Land Acquisition to clarify Document Type and/or placement in ACP Documents display. Duplicate documents have been moved to Media Tab Radha Amezquita Scrap Preparation Supervisor General Email: [email or web address] documented in this encounter Plan of Treatment Upcoming Encounters Date Type Department Care Team (Late st Contact Info) Description 08/02/2024 3:00 PM EDT Office Visit Neurology [facility] [place] [facility] [address] Chichi Varela CRNP [address] [place] [address] 08/19/2024 6:00 PM EDT Office Visit Family Practice [facility] 200 [facility] [place] [address] Kasandra Antunez, 200 [facility] [place] [address] 08/30/2024 2:30 PM EST Office Visit Cardiology, [facility] [address] [place] [address] Brian Anne MD [address] [place] [address] Scheduled Procedures Name Priority Associated Diagnoses Date/Ti [...] Documents on File Type Date Recorded Patient Bufferer Expl anation Power of Pharmacy Buyer 04/08/2024 Rajeev "Reginald" Chronister signed on 04/05/2024 Durable Health Care POA Advance Directives and Living Will 06/15/2022 [place] Advance Health Ca re Directive - signed 06/15/2020 Healthcare Agents on File Name Relationship Healthcare Agent Relationship Communication Rajeev "Reginald" Chronister Adult Child Health C are Agent (per Health Care Power of Pharmacy Buyer document) [email or web address] Care [email or web address] Ground Service Equipment Mechanic Relationship Specialty Start Date End Date Kasandra Antunez DO [address] [place], [place] [address] PCP - General Family Medicine 10/28/11 documented as of this encounter
--- OUTSIDE RECORDS SUMMARY | 2024-08-09 13:16 | External Medical Summary | Summary of Care ---
Author Name Unknown Organization [facility] Address [address] [place] [facility] [place] [address] Phone [phone] Care Team Providers Care Camera Mechanic Name Role Phone Vilma Antunez DO Primary Care Provider Reason for Visit * Reason Comments eRx-Medication Refill Encounter Details Date Type Department Care Team (Late st Contact Info) Description 07/11/2024 Refill Family Practice [facility] [address] [place] [address] Vilma Antunez DO 200 [facility] [place] [address] Chronic ischemic right MCA stroke; Cardiac pacemaker in situ Allergies Active Allergy Reactions Criticality Noted Date Comments Codeine Psych complications 12/05/2011 documented as of this encounter (statuses as of 07/11/2024) Medications Medication Sig Dispensed Refills Start Date End Date Status Spacer/Aero-Holding Chambers ISSI Use with inhaler. 1 Device 0 6 [...] AT BEDTIME 54 g 3 4 Active Eliquis 2.5 MG Oral Tablet [...] the morning. 30 Tablet 5 4 Active Allopurinol 100 MG Oral Tablet (Zyloprim)Indicatio ns:Gout of big toe TAKE 1 TABLET BY MOUTH ONCE DAILY IN THE MORNING 90 Tablet 3 4 Active Ondansetron 4 MG Oral Tablet Disintegrating (Zofran) Place under the tongue 1 Tablet every 8 hours as needed for Nausea or Vomiting. 20 Tablet 11 4 Active Magnesium Oxide 400 MG Oral Tablet Take 1 Tablet by mouth in the morning. Active Levothyroxine Sodium 88 MCG Oral Tablet (Levoxyl) TAKE 1 TABLET BY MOUTH ONCE DAILY IN THE MORNING AT LEAST 30 MINUTES PRIOR TO BREAKFAST OR OTHER MEDS 90 Tablet 1 4 Active Metoprolol Succinate ER 25 MG Oral Tablet Extended Release 24 Hour (toPROL XL) Take 1 Tablet by mouth in the morning and 1 Tablet before bedtime. 180 Tablet 3 4 Active Clopidogrel Bisulfate 75 MG Oral Tablet (pLAVix)Indications :Chronic ischemic right MCA stroke,Cardiac pacemaker in situ TAKE 1 TABLET BY MOUTH ONCE DAILY IN THE MORNING 90 Tablet 3 4 Active Clopidogrel Bisulfate 75 MG Oral Tablet (pLAVix)Indications :Chronic ischemic right MCA stroke,Cardiac pacemaker in situ TAKE 1 TABLET BY MOUTH ONCE DAILY IN THE MORNING 90 Tablet 1 4 07/11/20 24 Discontinued documented as of this encounter (statuses as of 07/11/2024) Active Problems Problem Noted Date Diagnosed Date Type 2 diabetes mellitus wit h hemoglobin A1c goal of less than 7.5% 05/07/2024 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 Chronic heart failure with r educed ejection fraction and diastolic dysfunction 01/01/2024 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 operator 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 [...] as of this encounter (statuses as of 07/11/2024) Resolved Problems Problem Noted Date Diagnosed Date Resolved Date Acute respiratory failure with hypoxia 10/08/2021 11/03/2021 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 lunchroom operator 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 [...] as of this encounter (statuses as of 07/11/2024) Immunizations Name Administration Dates Next Due COVID-19 mRNA, LNP-s, No Pre serve, 2-Dose Series (Moderna) 11/19/2021,05/19/2021,04/21/2021 COVID-19, MRNA-LNP, 23-24, P F, 50 MCG/0.5 mL, 12 YRS AND ABOVE, IM (MODERNA-Spikevax) 07/21/2023 Covid-19, Mrna, Lnp-s, Pf, B ivalent, 30 Mcg, IM, 12 yrs and above (Pfizer) 09/29/2022 Pneumococcal Conjugate Vacc, 13 Valent (Prevnar) 08/03/2015 Pneumococcal Conjugate Vacci ne, 20-valent ([id number]) 04/11/2024 Pneumococcal Polysaccharide PPV23 (Pneumovax) 09/09/2013,10/19/2010,08/20/2007 Season [...] encounter Miscellaneous Notes * Telephone Encounter - Jeanie Sanchez [facility] - 07/11/2024 4:48 PM EDTSigned Prescriptions: Disp Refills Clopidogrel Bisulfate 75 MG Oral Tablet (p*90 Tab*3 Sig: TAKE 1 TABLET BY MOUTH ONCE DAILY IN THE MORNINGAuthorizing Provider: VILMA ANTUNEZ User: JEANIE SANCHEZ documented in this encounter Plan of Treatment Upcoming Encounters Date Type Department Care Team (Late st Contact Info) Description 08/02/2024 3:00 PM EDT Office Visit Neurology [facility] [place] [address] [place] [address] Chichi Varela CRNP [address] [place] [address] 08/19/2024 6:00 PM EDT Office Visit Family Practice [facility] [place] [address] [place] [address] Vilma Antunez, DO [address] [place] [address] 08/30/2024 2:30 PM EST Office Visit Cardiology, [facility] [address] [place] [address] Brian Anne MD [address] [place] [address] Scheduled Procedures Name Priority Associated Diagnoses Date/Ti [...] 2024 07/21/2023, 09/29/2022, 11/19/2021, Additional history exists Influenza [...] of this encounter Visit Diagnoses Diagnosis Chronic ischemic right MCA stroke Transient ischemic attack (TIA), and cerebral infarction without residual deficits Cardiac pacemaker in situ documented in this encounter Advance Directives Documents on File Type Date Recorded Patient Summer Analyst Expl anation Power of Market Development Executive 04/08/2024 Rajeev "Reginald" Chronister signed on 04/05/2024 [facility] POA Advance Directives and Living Will 06/15/2022 [place] Advance Health Ca re Directive - signed 06/15/2020 Healthcare Agents on File Name Relationship Healthcare Agent Relationship Communication Rajeev "Reginald" Chronister Adult Child Health C are Agent (per Health Care Power of Market Development Executive document) [email or web address] Care Teams Camera Mechanic Relationship Specialty Start Date End Date Vilma Antunez DO [address] [place] [address] PCP - General Family Medicine 10/28/11 documented as of this encounter
--- OUTSIDE RECORDS SUMMARY | 2024-08-09 13:16 | External Medical Summary | Summary of Care ---
Author Name Unknown Organization [facility] Address [address] [place] [address] Phone [phone] Care Team Providers Care Dry Plasterer Name Role Phone Kasandra Antunez DO Primary Care Provider Reason for Visit * Reason Onset Date Comments Advice 07/04/2024 Encounter Details Date Type Department Care Team (Late st Contact Info) Description 07/04/2024 Telephone Family Practice [facility] [address] [place] [address] Kasandra Antunez DO [address] [facility] [place] [address] Advice Allergies Active Allergy Reactions Criticality Noted Date Comments Codeine Psych complications 12/05/2011 documented as of this encounter (statuses as of 07/06/2024) Medications Medication Sig Dispensed Refills Start Date [...] 04/19/2024 Active Allopurinol 100 MG Oral Tablet (Zyloprim)Indication [...] before bedtime. 180 Tablet 3 06/18/2024 Active predniSONE 20 MG Oral Tablet (Deltasone) Take 2 Tablets by mouth in the morning for 5 days. 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 [...] as of this encounter (statuses as of 07/06/2024) Resolved Problems Problem Noted Date Diagnosed Date Resolved Date Acute respiratory failure with hypoxia 10/08/2021 11/03/2021 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 [...] as of this encounter (statuses as of 07/06/2024) Immunizations Name Administration Dates Next Due COVID-19 mRNA, LNP-s, No Pre serve, 2-Dose Series (Moderna) 11/19/2021,05/19/2021,04/21/2021 COVID-19, MRNA-LNP, 23-24, P F, 50 MCG/0.5 mL, 12 YRS AND ABOVE, IM (MODERNA-Spikevax) 07/21/2023 Covid-19, Mrna, Lnp-s, Pf, B ivalent, 30 Mcg, IM, 12 yrs and above (Pfizer) 09/29/2022 Pneumococcal Conjugate Vacc, 13 Valent (Prevnar) 08/03/2015 Pneumococcal Conjugate Vacci ne, 20-valent ([id number]) 04/11/2024 Pneumococcal Polysaccharide PPV23 (Pneumovax) 09/09/2013,10/19/2010,08/20/2007 Season [...] encounter Miscellaneous Notes * Telephone Encounter - Xochitl Morales, MED ASSIST - 07/06/2024 10:19 AM EDT Spoke with patient's sister Millie. She's aware and will make sure she gets what she needs. * Telephone Encounter - Kasandra Antunez DO - 07/04/2024 3:42 PM EDT Please call prednisone x 5 days * Telephone Encounter - Jelly Johns LPN - 07/04/2024 2:20 PM EDT Annie, caregiver calling from . Patient is having a lot of pain in her right ankle due to gout. Symptoms started this morning. Currently on daily regimen of Allopurinol. Taking Tylenol OTC to help with the pain but is not helping Asking for further recommendations. Please advise, pharmacy selected. * Telephone Encounter - Maribell Riley OSA - 07/04/2024 2:16 PM EDT Annie from calling with update on pt. Pt has gout. Caller was transferred to [facility] at the nurse line. documented in this encounter Plan of Treatment Upcoming Encounters Date Type Department Care Team (Late st Contact Info) Description 08/02/2024 3:00 PM EDT Office Visit Neurology [facility] 200 [place] [address] Chichi Varela CRNP [address] [place] [address] 08/19/2024 6:00 PM EDT Office Visit Family Practice [facility] [address] [facility] [place] [address] Kasandra Antunez DO 200 [facility] [place] [address] 08/30/2024 2:30 PM EST Office Visit Cardiology, [facility] 132 [facility] [place] [address] Brian Anne MD [address] [place] [address] Scheduled Procedures Name Priority Associated Diagnoses Date/Ti [...] Documents on File Type Date Recorded Patient Mill Labor Supervisor Expl anation Power of Bottle Gauger 04/08/2024 Rajeev Ritter" Chronister signed on 04/05/2024 Durable Health Care POA Advance Directives and Living Will 06/15/2022 [place] Advance Health Ca re Directive - signed 06/15/2020 Healthcare Agents on File Name Relationship Healthcare Agent Relationship Communication Rajeev "Reginald" Harvey Adult Child Health C are Agent (per Health Care Power of Bottle Gauger document) [email or web address] Care Teams Dry Plasterer Relationship Specialty Start Date End Date Kasandra Antunez DO [address] [place] [address] PCP - General Family Medicine 10/28/11 documented as of this encounter
--- OUTSIDE RECORDS SUMMARY | 2024-08-09 13:16 | External Medical Summary | Summary of Care ---
Author Name Unknown Organization [facility] Address [address] [place] [address] Phone [phone] Care Team Providers Care Grid Trimmer Name Role Phone Kasandra Antunez DO Primary Care Provider Reason for Visit * Reason Onset Date Comments Medical Records Request 07/18/2024 Encounter Details Date Type Department Care Team (Late st Contact Info) Description 07/18/2024 Telephone Family Practice [facility] [address] [place] [address] Kasandra Antunez DO [address] [facility] [place] [address] Medical Records Request Allergies Active Allergy Reactions Criticality Noted Date Comments Codeine Psych complications 12/05/2011 documented as of this encounter (statuses as of 07/18/2024) Medications Medication Sig Dispensed Refills Start Date [...] before bedtime. 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 Chronic heart failure with r educed ejection fraction and diastolic dysfunction 01/01/2024 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 [...] as of this encounter (statuses as of 07/18/2024) Resolved Problems Problem Noted Date Diagnosed Date Resolved Date Acute respiratory failure with hypoxia 10/08/2021 11/03/2021 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 [...] as of this encounter (statuses as of 07/18/2024) Immunizations Name Administration Dates Next Due COVID-19 mRNA, LNP-s, No Pre serve, 2-Dose Series (Moderna) 11/19/2021,05/19/2021,04/21/2021 COVID-19, MRNA-LNP, 23-24, P F, 50 MCG/0.5 mL, 12 YRS AND ABOVE, IM (MODERNA-Spikevax) 07/21/2023 Covid-19, Mrna, Lnp-s, Pf, B ivalent, 30 Mcg, IM, 12 yrs and above (Pfizer) 09/29/2022 Pneumococcal Conjugate Vacc, 13 Valent (Prevnar) 08/03/2015 Pneumococcal Conjugate Vacci ne, 20-valent ([id number]) 04/11/2024 Pneumococcal Polysaccharide PPV23 (Pneumovax) 09/09/2013,10/19/2010,08/20/2007 Season [...] encounter Miscellaneous Notes * Telephone Encounter - Jeovanny Borja OSA - 07/18/2024 12:14 PM EDT Records request received from [facility]. Request forwarded to [facility] ([id number]) via [employer]. documented in this encounter Plan of Treatment Upcoming Encounters Date Type Department Care Team (Late st Contact Info) Description 08/02/2024 3:00 PM EDT Office Visit Neurology [facility] [address] [facility] [place] [address] Chichi Varela CRNP [address] [place] [address] 08/19/2024 6:00 PM EDT Office Visit Family Practice [facility] [address] [facility] [place] [address] Kasandra Antunez, [address] [facility] [place] [address] 08/30/2024 2:30 PM EST Office Visit Cardiology, [facility] [address] [place] [address] Brian Anne MD [address] [place] [address] Scheduled Procedures Name Priority Associated Diagnoses Date/Ti [...] Documents on File Type Date Recorded Patient Tour Coordinator Expl anation Power of Weaving Instructor 04/08/2024 Rajeev "Reginald" Chronsandie signed on 04/05/2024 [facility] Health Care POA Advance Directives and Living Will 06/15/2022 [place] Advance Health Ca re Directive - signed 06/15/2020 Healthcare Agents on File Name Relationship Healthcare Agent Relationship Communication Rajeev "Reginald" Harvey Adult Child Health C are Agent (per Health Care Power of Weaving Instructor document) [email or web address] Care Teams Grid Trimmer Relationship Specialty Start Date End Date Kasandra Antunez DO [address] [place] [address] PCP - General Family Medicine 10/28/11 documented as of this encounter
--- OUTSIDE RECORDS SUMMARY | 2024-08-09 13:16 | External Medical Summary | Summary of Care ---
Author Name Unknown Organization [facility] Address [address] [facility] [place] [address] Phone [phone] Care Team Providers Care Condominium Property Manager Name Role Phone Kasandra Antunez DO Primary Care Provider Reason for Visit * Reason Comments Follow Up Encounter Details Date Type Department Care Team (Latest Contact Info) Description 06/18/2024 2:00 PM EDT Office Visit Cardiology, [facility] [address] [facility] [place] [address] Ruby Blandon CRNP [address] [facility] [place] [address] Paroxysmal atrial fibrillation (HCC)*; Tachy-leeanne syndrome (HCC); Chronic heart failure with reduced ejection fraction and diastolic dysfunction (HCC); HFrEF (heart failure with reduced ejection fraction) (HCC); CKD (chronic kidney disease) stage 4, GFR 15-29 ml/min (HCC); NICM (nonischemic cardiomyopathy) ([facility]); H/O atrioventricular eduardo ablation Allergies Active Allergy Reactions Criticality Noted Date Comments Codeine Psych complications 12/05/2011 documented as of this encounter (statuses as of 06/23/2024) Medications Medication Sig Dispensed Refills Start Date [...] AT BEDTIME 54 g 3 4 Active Clopidogrel Bisulfate 75 MG [...] before bedtime. 180 Tablet 3 4 Active Metoprolol Succinate ER 25 MG Oral Tablet Extended Release 24 Hour (toPROL XL) Take 1 Tablet by mouth in the morning. 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 [...] as of this encounter (statuses as of 06/23/2024) Resolved Problems Problem Noted Date Diagnosed Date Resolved Date Acute respiratory failure with hypoxia 10/08/2021 11/03/2021 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 [...] as of this encounter (statuses as of 06/23/2024) Immunizations Name Administration Dates Next Due COVID-19 mRNA, LNP-s, No Pre serve, 2-Dose Series (Moderna) 11/19/2021,05/19/2021,04/21/2021 COVID-19, MRNA-LNP, 23-24, P F, 50 MCG/0.5 mL, 12 YRS AND ABOVE, IM (MODERNA-Spikevax) 07/21/2023 Covid-19, Mrna, Lnp-s, Pf, B ivalent, 30 Mcg, IM, 12 yrs and above (Pfizer) 09/29/2022 Pneumococcal Conjugate Vacc, 13 Valent (Prevnar) 08/03/2015 Pneumococcal Conjugate Vacci ne, 20-valent ([id number]) 04/11/2024 Pneumococcal Polysaccharide PPV23 (Pneumovax) 09/09/2013,10/19/2010,08/20/2007 Season [...] Sign Reading Time Taken Comments Blood Pressure 124/76 06/18/2024 2:10 PM EDT Pulse 92 06/18/2024 2:10 PM EDT Temperature - - Respiratory Rate 20 06/18/2024 2:10 PM EDT Oxygen Saturation - - Inhaled Oxygen Concentration - - Weight 69 kg (152 lb 3.2 oz) 06/18/2024 2:10 PM EDT Height - - Body Mass Index 29.72 04/11/2024 11:14 AM EDT documented in this encounter Patient Instructions * Patient Instructions* Ruby Blandon CRNP - 06/18/2024 2:42 PM EDT Increase Metoprolol to 25 mg twice per day documented in this encounter Progress Notes * Ailyn Mcelroy DO - 06/23/2024 3:08 PM EDT I have reviewed the advanced practitioner's documentation on the date of service referenced in note, and I agree with, and take responsibility for the plan of care. Pt returns to EP after hospital discharge and AVN ablation BiV ICD Interrogation today Independently performed and interpreted by myself Presenting Rhythm AF with some AIR TUBE RELEASER and VS Underlying rhythm AF with VAS Battery function Good Lead testing RA 1.9mV; 361 ohms no threshold testing pt in AF Left bundle 5.9mV; 513 ohms 1V @ 0.4ms Arrhythmia log Pt does still have some break through of her AF so the AVN ablation was semi successful Reprogramming Changed to VVIR with base rate of 60bpm and decreased EGM sensitivity from 0.3mV to 0.15mV for atrial EGM Recommend increasing metoprolol to 25mg BID Otherwise continue other cardiac medications Continue with routine device checks EP f/u 1 year Ailyn Mcelroy DO Department of Cardiology [facility] [place] [address] documented in this encounter Nursing Notes * Phyllis Messer CMA - 06/18/2024 2:09 PM EDT Examination Room: 15 Name: Nancy Gabriel Date of : (1945). Reason for Visit: [facility] "beginning of May" - "she was off her baseline big time -- very disoriented; they think she may have been dehydrated" Interim Hospitalization(s): denies Problems/Concerns: denies Chest Pain/SOB: denies [facility] Discussed: No My [facility] is a way you can [...] 08/02/2024 3:00 PM EDT Office Visit Neurology [facility] [address] [place] [address] Chichi Varela CRNP [address] [place] [address] 08/19/2024 6:00 PM EDT Office Visit Family Practice [facility] [address] [place] [address] Kasandra Antunez DO 200 [facility] [place] [address] 08/30/2024 2:30 PM EST Office Visit Cardiology, [facility] [address] [place] [id number] Brian Anne MD [address] [place] [address] Scheduled Procedures Name Priority Associated Diagnoses Date/Ti [...] Paroxysmal atrial fibrillation (HCC)- Primary Atrial fibrillation Tachy-leeanne syndrome (HCC) Sinoatrial node dysfunction Chronic heart failure with reduced ejection fraction and diastolic dysfunction (HCC) HFrEF (heart failure with reduced ejection fraction) (HCC) CKD (chronic kidney disease) stage 4, GFR 15-29 ml/min (HCC) Chronic kidney disease, Stage IV (severe) NICM (nonischemic cardiomyopathy) (HCC) Other primary cardiomyopathies H/O atrioventricular eduardo ablation Personal history of surgery to heart and great vessels, presenting hazards to health documented in this encounter Advance Directives Documents on File Type Date Recorded Patient Tin Cutter Expl anation Power of Clin Tech 04/08/2024 Rajeev Ritter" Chronsandie signed on 04/05/2024 Durable Health Care POA Advance Directives and Living Will 06/15/2022 [place] Advance Health Ca re Directive - signed 06/15/2020 Healthcare Agents on File Name Relationship Healthcare Agent Relationship Communication Rajeev Ritter" Neel[place]andie Adult Child Health C are Agent (per Health Care Power of Clin Tech document) [email or web address] Care Teams Condominium Property Manager Relationship Specialty Start Date End Date Kasandra Antunez DO [address] [place] [address] PCP - General Family Medicine 10/28/11 documented as of this encounter
--- OUTSIDE RECORDS SUMMARY | 2024-08-09 13:16 | External Medical Summary | Summary of Care ---
Author Name Unknown Organization [facility] Address [address] [facility] [place] [address] Phone [phone] Care Team Providers Care Educational Consultant Name Role Phone Kasandra Antunez DO Primary Care Provider Encounter Details Date Type Department Care Team (Late st Contact Info) Description 07/12/2024 Result Scan Unspecified Department iAlyn Mcelroy [facility] [address] [facility] [place] [address] <No scans attached> Allergies Active Allergy Reactions Criticality Noted Date Comments Codeine Psych complications 12/05/2011 documented as of this encounter (statuses as of 07/12/2024) Medications Medication Sig Dispensed Refills Start Date [...] AT BEDTIME 54 g 3 11/02/2023 Active Eliquis 2.5 MG Oral Tablet (Apixaban) [...] THE MORNING 90 Tablet 3 07/11/2024 Active documented as of this encounter (statuses as of 07/12/2024) Active Problems Problem Noted Date Diagnosed Date Type 2 diabetes mellitus wit h hemoglobin A1c goal of less than 7.5% 05/07/2024 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 Chronic heart failure with r educed ejection fraction and diastolic dysfunction 01/01/2024 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 [...] as of this encounter (statuses as of 07/12/2024) Resolved Problems Problem Noted Date Diagnosed Date Resolved Date Acute respiratory failure with hypoxia 10/08/2021 11/03/2021 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 [...] as of this encounter (statuses as of 07/12/2024) Immunizations Name Administration Dates Next Due COVID-19 mRNA, LNP-s, No Pre serve, 2-Dose Series (Moderna) 11/19/2021,05/19/2021,04/21/2021 COVID-19, MRNA-LNP, 23-24, P F, 50 MCG/0.5 mL, 12 YRS AND ABOVE, IM (MODERNA-Spikevax) 07/21/2023 Covid-19, Mrna, Lnp-s, Pf, B ivalent, 30 Mcg, IM, 12 yrs and above (Pfizer) 09/29/2022 Pneumococcal Conjugate Vacc, 13 Valent (Prevnar) 08/03/2015 Pneumococcal Conjugate Vacci ne, 20-valent ([id number]) 04/11/2024 Pneumococcal Polysaccharide PPV23 (Pneumovax) 09/09/2013,10/19/2010,08/20/2007 Season [...] 08/02/2024 3:00 PM EDT Office Visit Neurology [facility] [address] [facility] [place] [address] Chichi Varela CRNP [address] [place] [address] 08/19/2024 6:00 PM EDT Office Visit Family Practice [facility] [address] [facility] [place] [address] Kasandra Antunez, [address] [facility] [place] [address] 08/30/2024 2:30 PM EST Office Visit Cardiology, [facility] [address] [place] [address] Brian Anne MD [address] [place] [address] Scheduled Procedures Name Priority Associated Diagnoses Date/Ti [...] Date/Time Associated Diagnosis Comments CARDIOLOGY SCANNED RESULT 07/12/2024 documented in this encounter Results * CARDIOLOGY SCANNED RESULT (07/12/2024) 07/12/2024 Ailyn Mcelroy DO OTHER documented in this encounter Advance Directives Documents on File Type Date Recorded Patient Histology Technologist Expl anation Power of Electric Shipyard Operator 04/08/2024 Rajeev "Reginald" Chronister signed on 04/05/2024 Durable Health Care POA Advance Directives and Living Will 06/15/2022 [place] Advance Health Ca re Directive - signed 06/15/2020 Healthcare Agents on File Name Relationship Healthcare Agent Relationship Communication Rajeev "Reginald" Harvey Adult Child Health C are Agent (per Health Care Power of Electric Shipyard Operator document) [email or web address] Care Teams Educational Consultant Relationship Specialty Start Date End Date Kasandra Antunez DO [address] [place] [address] PCP - General Family Medicine 10/28/11 documented as of this encounter
--- OUTSIDE RECORDS SUMMARY | 2024-08-09 13:16 | External Medical Summary | Summary of Care ---
Author Name Unknown Organization [facility] Address [address] [place] [address] Phone [phone] Care Team Providers Care Lead Printer Name Role Phone Vilma Antunez DO Primary Care Provider Reason for Visit * Reason Comments eRx-Medication Refill Encounter Details Date Type Department Care Team (Late st Contact Info) Description 07/11/2024 Refill Family Practice [facility] [address] [place] [address] Vilma Antunez DO 200 [facility] [place] [address] Allergies Active Allergy Reactions Criticality Noted Date [...] AT BEDTIME 54 g 3 4 Active Atorvastatin Calcium 40 MG Oral [...] THE MORNING 90 Tablet 3 4 Active Eliquis 2.5 MG Oral Tablet (Apixaban) TAKE 1 TABLET BY MOUTH IN THE MORNING AND AT BEDTIME 180 Tablet 1 4 Active Eliquis 2.5 MG Oral Tablet (Apixaban) TAKE 1 TABLET BY MOUTH IN THE MORNING AND AT BEDTIME 180 Tablet 1 4 07/12/20 24 Discontinued documented as of this encounter (statuses as of 07/12/2024) Active Problems Problem Noted Date Diagnosed Date Type 2 diabetes mellitus wit h hemoglobin A1c goal of less than 7.5% 05/07/2024 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 Chronic heart failure with r educed ejection fraction and diastolic dysfunction 01/01/2024 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 synchro assembler 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 [...] hypoxia 10/08/2021 11/03/2021 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 synchro assembler 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 [...] (Prevnar) 08/03/2015 Pneumococcal Conjugate Vacci ne, 20-valent ([id number]) 04/11/2024 Pneumococcal Polysaccharide PPV23 (Pneumovax) 09/09/2013,10/19/2010,08/20/2007 Season [...] Telephone Encounter - Vilma Antunez DO - 07/12/2024 4:05 PM EDT Signed Prescriptions: Disp Refills Eliquis 2.5 MG Oral Tablet (Apixaban) 180 Ta*1 Sig: TAKE 1 TABLET BY MOUTH IN THE MORNING AND AT BEDTIME Authorizing Provider: VILMA ANTUNEZ * Telephone Encounter - Alaina Major RPh - 07/12/2024 3:13 PM EDTPending Prescriptions: Disp Refills Eliquis 2.5 MG Oral Tablet [Pharmacy Med N*180 Ta*1 Sig: TAKE 1 TABLET BY MOUTH IN THE MORNING AND AT BEDTIME * Telephone Encounter - Alaina Major RPh - 07/12/2024 3:13 PM EDT Please advise. Creatinine is greater than 1.5. However, patient is greater than 60 kg and less than80 years old. Patient has been on this dose. Please approve if appropriate. Thanks, Alaina Major Clinical Pharmacist [facility] [phone] 07/12/2024, 3:13 PM documented in this encounter Plan of Treatment Upcoming Encounters Date Type Department Care Team (Late st Contact Info) Description 08/02/2024 3:00 PM EDT Office Visit Neurology [facility] 200 [facility] [place] [address] Chichi Varela CRNP [address] [place] [address] 08/19/2024 6:00 PM EDT Office Visit Family Practice [facility] [address] [facility] [place] [address] Vilma Antunez DO 200 [facility] [place] [address] 08/30/2024 2:30 PM EST Office Visit Cardiology, [facility] [address] [place] [address] Brian Anne MD [address] [place] [address] Scheduled Procedures Name Priority Associated Diagnoses Date/Ti [...] Documents on File Type Date Recorded Patient Project Development Coordinator Expl anation Power of Motion Picture Set Up Worker 04/08/2024 Rajeev "Reginald" Chronsandie signed on 04/05/2024 Durable Health Care POA Advance Directives and Living Will 06/15/2022 [place] Advance Health Ca re Directive - signed 06/15/2020 Healthcare Agents on File Name Relationship Healthcare Agent Relationship Communication Rajeev "Reginald" Harvey Adult Child Health C are Agent (per Health Care Power of Motion Picture Set Up Worker document) [email or web address] Care Teams Lead Printer Relationship Specialty Start Date End Date Vilma Antunez DO [address] [place] [address] PCP - General Family Medicine 10/28/11 documented as of this encounter
--- OUTSIDE RECORDS SUMMARY | 2024-08-09 13:16 | External Medical Summary | Summary of Care ---
Author Name Unknown Organization [facility] Address [address] [place] [address] Phone [phone] Care Team Providers Care Time Study Technologist Name Role Phone Kasandra Antunez DO Primary Care Provider Reason for Visit * Reason Comments NEW PATIENT * Evaluate & Treat - Unlimited Visits (Within 3 days (urgent)) - Authorized Specialty Diagnoses / Procedures Referred By Conttyrell t Referred To Contact Neurology Diagnoses Confusion Gracy Joya PA-C [address] [place] [address] Referral ID Status Reason Start Date Expiration Date Visits Requested Visits Authorized [id number] Authorized Specialty Services Required 05/30/2024 [id number] Encounter Details Date Type Department Care Team (Late st Contact Info) Description 08/02/2024 3:00 PM EDT Office Visit Neurology [facility] [address] [facility] [place] [address] Chichi Varela CRNP [address] [place] [address] Moderate dementia with psychotic disturbance, unspecified dementia type (HCC)* Allergies Active Allergy Reactions Criticality Noted Date [...] (Prevnar) 08/03/2015 Pneumococcal Conjugate Vacci ne, 20-valent ([id number]) 04/11/2024 Pneumococcal Polysaccharide PPV23 (Pneumovax) 09/09/2013,10/19/2010,08/20/2007 Season Influenza, Quad, PF, Adjuvanted, 65+ Yrs, IM (FLUAD) 07/08/2023,07/06/2020 Seasonal Influenza Vac., MDV , IM, 0.5 mL (Fluzone) 08/05/2014,08/22/2013,07/18/2012(Defer red: Patient Refused) Seasonal Influenza, Quadriva lent Hd (Fluzone Hd) 06/28/2024,07/30/2022,07/09/2021 Seasonal Influenza, Quadriva lent, No Preserve, IM [...] Sign Reading Time Taken Comments Blood Pressure 118/72 08/02/2024 2:54 PM EDT Pulse 80 08/02/2024 2:54 PM EDT Temperature 37.1 C (98.8 F) 08/02/2024 2:54 PM ED T Respiratory Rate 16 08/02/2024 2:54 PM EDT Oxygen Saturation 97% 08/02/2024 2:54 PM EDT Inhaled Oxygen Concentration - - Weight 67.9 kg (149 lb 12.8 oz) 08/02/2024 2:54 PM EDT Height - - Body Mass Index 29.26 04/11/2024 11:14 AM EDT documented in this encounter Patient Instructions * Patient Instructions* Chichi Varela CRNP - 08/02/2024 4:11 PM EDT Images from the original note were not included. I'm suspecting you have dementia, most likely due to vascular changes in your brain and possibly Alzheimer's Disease. I would consider trying a medication called memantine The drug Namenda (memantine) is a weak NMDA antagonist that theoretically may block nerve cells from dying. It can provide some small improvement in memory, thinking, and/or behavior in Alzheimersdisease. This drug is relatively low in side effects. Most common ones are headache, dizziness and drowsiness. However in our clinic I have noted that increased agitation can occur rarely, and in some patients' agitation improve with Namenda. If agitation occurs from starting or increasing the medication, call our office. Reducing the Namenda (memantine) to the last tolerated dose or simply halting it should stop the agitation. We will slowly increase the dose as follows: AM PM Week 1 5 mg Week 2 5 mg 5 mg Information on brain health and aging One thing that consistently declines with age is processing speed. The best ways to improve performance are to give yourself adequate time when pursuing cognitive tasks, work with no distractions, and avoid multitasking. Multitasking is in fact rapidly alternating between two activities, not doing two activities simultaneously. While in the past you may have been able to switch rapidly enough to maintain both activities, this can now be a problem for performance. With regards to cognitive exercise, the closer you can get to the real world activity that you wishto improve the more likely it is to carry over into real life. For example, if you want to improve remembering the names of people you meet, play a game with faces on cards that you have to match to names. In addition, theoretically learning a completely new domain of knowledge will stimulate the brain, for example, learning a new language. The online cognitive exercise program with the most evidence based medicine for actually helping reduce risk of cognitive decline is called [employer], which is a pay service. Others programs may be helpful as well. Physical exercise is one of the most important things you can do for your brain health and general health. Do at least 30 minutes every day of moderate intensity cardiovascular exercise (where it is just a little hard to talk during the exercise). Diet: Both the Mediterranean diet and the MIND-DASH diet are recommended for brain and heart health. I. The Mediterranean diet is rich in fish, olive oil, grains, and less fat and red meat has been shown to improve brain and heart health. You can visit their website, https://[facility]/, for free recipes! II. The MIND-DASH diet is a modified version of the Mediterranean diet, has also been shown to reduce the risk of dementia. GOOD: Green leafy vegetables (like spinach and salad greens): At least six servings a week Other vegetables: At least one a day Nuts: Five servings a week Berries: Two or more servings a week Beans: At least three servings a week Whole grains: Three or more servings a day Fish: Once a week Poultry (like chicken or turkey): Two times a week [place] oil: Use it as your main cooking oil. Wine: One glass a day AVOID: Red meat: Less than four servings a week Butter and margarine: Less than a tablespoon daily Cheese: Less than one serving a week Pastries and sweets: Less than five servings a week Fried or fast food: Less than one serving a week Alcohol consumption: Alcohol interferes with brain function, not just during drinking or hours after drinking, but emt intermediate it causes negative changes on the brain, such as thinking and memory problems, mood and behavior changes. In addition, it causes imbalance, increases the risk of injury and falls, risk of stroke,heart disease, liver disease, cancer, to name a few. Heavy alcohol use is defined as: For men: drinking > 4 drinks on any day, or >14 drinks per week For women: drinking > 3 drinks on any day, or > 7 drinks per week One standard drink contains 15 grams of pure alcohol. One standard drink is defined as: (https://www.cdc.gov/alcohol/fact-sheets/moderate-drinking.htm). ABV: alcohol by volume. For more information on alcohol consumption and its health effects, visit the National [place] onAlcohol Abuse and Alcoholism (NIAAA) website at: https://www.niaaa.nih.gov/bmjggdmx-wyyplvd-xwdnbf Talk to your doctor if you are concerned about your drinking and would like help. You can also visit the NIAAA Alcohol Treatment Navigator website at: https://alcoholtreatment.niaaa.nih.gov/ Coffee consumption: In general, 2-3 cups of coffee may be beneficial for brain health. Refrain from 6 cups or more per day. Staying socially active and engaged also stimulates the brain and decreases the risk of dementia. documented in this encounter Progress Notes * Chichi Varela, SARITHA - 08/02/2024 3:00 PM EDT Images from the original note were not included. [facility] MEMORY AND COGNITION PROGRAM New Patient Evaluation Patient: Nancy Gabriel Visit date: 08/02/2024 Referring Provider: Gracy Day* Reason for referral: confusion Chief Complaint: memory changes HISTORY OF PRESENT ILLNESS . Nancy Gabriel is a 78 year old right-handed white female with 8 years of education who presents with memory changes that started gradually about 5 years ago, ut worsened after right MCA stroke in 2019. The history was obtained from chart review, referral document, patient, and family. She is accompanied by sisters Kassie and Millie She has a history significant for Type 2 DM, gout, hypothyroidism, HTN, CKD stage 4, HLD, Tachy-leeanne syndrome, Paroxysmal atrial fibrillation, Nonischemic cardiomyopathy, Right MCA stroke, Heart failure, Cardiac pacemaker, vitamin D deficiency, GERD, hearing loss, MELQUIADES. Seen by Ailyn Casey for evaluation on 06/24/2022 for follow-up of right MCA stroke. Per Ailyn's note: The patient and family member sister was the historian, and they are reliable. On 02/23/2020 she presented with left sided weakness. She has a PMH DM2, HTN, GERD, vi D def., [place] who was seen by Dr Power after she was found to have a stroke. She was started on plavix 75 mg and aspirin [address] Corado recommended a ZIO patch which was never done. She then presented 06/15/2020 with an episode of confusion and her sister who is with her today states she was found to be driving and and drove home and was very confused and anxious. She was worked up for stroke but there was none found. Sheis here today for follow up and her sister. She was not follow up after the stroke. Her sister states she has taken her keys so she can no longer drive. She and her have care givers at home. Denies CP, SOB, abdominal pain, one sided weakness, numbness tingling, N, V, vision changes. I have reviewed the patient's medications and allergies, past medical, surgical, social and family history, updating these as appropriate. See Histories section of the electronic medical record for adisplay of this information. Medications significant for: Atorvastatin 40 mg daily Eliquis 2.5 mg BID Escitalopram 20 mg daily Plavix 75 mg daily Famotidine 20 mg daily Isosorbide mononitrate ER 30 mg daily Metoprolol succinate 25 mg daily Furosemide 20 mg daily The following is obtained from the patient and sister: Lives with at home. Her son stays with her overnight. She has a caregiver during the day. Sisters live nearby and they check on her. Memory has been steadily declining for the last 5 years, but worse after right MCA stroke in 2020. Medications significant for: Atorvastatin 40 mg daily Plavix 75 mg daily Eliquis 2.5 mg BID Escitalopram 20 mg daily Metoprolol succinate 25 mg daily FUNCTIONAL ASSESSMENT: From patient From caregiver/family Comments Courtney iADLs Using the Telephone impaired impaired Shopping impaired impaired Food preparation impaired impaired gets Mom's meals Housekeeping intact intact Light house work Laundry impaired impaired Transportation impaired impaired Medication management impaired impaired Finances impaired impaired Monte ADLs: Bathing impaired impaired Dressing intact intact Toileting intact intact Transferring (bed to chair) intact intact Continence impaired impaired Feeding intact intact Keeping track of calendars/appointments impaired impaired Living arrangement: lives in an apartment with her son Sleep: no difficulty falling asleep, + difficulty staying asleep, - snoring, - apnea, + excessive daytime sleepiness, - restless legs, - vivid dreams, and - dream enactment Appetite: stable Other physical symptoms: Visual impairment: reading glasses 3 Hearing impairment: Yes. Hearing aids present. Chronic pain: no Memory and thinking complaints (+: yes, -: no): Forgetful of conversations? + Forgetful of names? - Misplacing things? + Trouble following instructions (e.g. following a recipe or manual)? + *Problem with judgement, reasoning and complex tasks? + *Trouble using common tools or appliances? - *Getting lost in familiar places? - *Problem with attention and concentration? + There is no report of problems with speech & language (+: yes, -: no) Repeating a sentence? - Word-finding: - Understanding the meaning of a single word: - Knowing facts about objects? - Saying the wrong sound when talking: - Making wrong mouth shapes when talking: - Speaking in full grammatically correct sentences: + at times Reading or writing words that don't follow the normal rules of pronunciation: + Understanding complex sentences: + There is report of visuospatial symptoms (+: yes, -: no): Depth perception: - Not seeing objects in front of your eyes: - Bumping into things: + Difficulty reading: - With regards to mood and behavior (+: yes, -: no): *Changes in personal hygiene: + Sense of presence: + *Hallucinations (VH, AH or others): + as been having ongoing hallucinations for the last year +seeing people and animals. Thought there was someone on her balcony the other night. +sees dogs mating +purple and pink bunnies *Delusions: + thinks her son is her *Paranoia: - *Impulsivity: +raids the refrigerator in the middle of the night and throws things away *Mood swings: - *Anxious: + *Depressed: + *Rage, outbursts: - FTD symptoms: *Disinhibition: - *Apathy: + Lack of empathy/sympathy: - Obsessive-compulsive behavior: - *Hyperorality or odd new food cravings: - With regard to movement (+: yes, -: no): Changes in walking: + Falls: - Tremor: - Slowing of movements: + Changes in facial expressiveness: - Change in smell: -, taste: - Change in voice: - Change in handwriting: - Autonomic symptoms: Constipation: - Early satiety: - Orthostatic hypotension: - Sexual dysfunction: not discussed Sensitivity to temperature change: +cold sensitivity Excessive salivation or dry mouth: +dry mouth complications: none Developmental and learning disabilities: +only went to 8th grade +most likely has learning disability 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 POA: present REVIEW OF SYSTEMS: See HPI OBJECTIVE Past Medical History: Diagnosis Date Anxiety DDD (degenerative disc disease), cervical Dr. Coulter Diabetes mellitus 2004 GERD (gastroesophageal reflux disease) HTN, goal below 130/80 Hyperlipidemia LDL goal < 100 Osteoporosis Past Surgical History: Procedure Laterality Date ARTHROSCOPY OF JOINT left knee Dr. Clark [facility] [place] [facility] [place] COLONOSCOPY, DIAGNOSTIC (RECTUM) 05/19/2016 adenomatous polyp, diverticulosis, repeat 5 yrs/[facility] D&C.EDU. EXCISE BENIGN LESION, TRUNK ARM LEG GREATER THAN 4.0 CM Lump in back by Dr. Tucker INFORMATION 11/08/2013 11/08/2013 at [facility], Repair of ventral hernia Dr. 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 Tucker Social History Tobacco Use Smoking status: Never Smokeless tobacco: Never Vaping Use Vaping status: Never Used Substance Use Topics Alcohol use: No Drug use: No Family History Problem Relation Name Age of [...] Diabetes Sister Kassie 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 Sister Kassie Family Status Relation Status Sis (Not Specified) Sis (Not Specified) Sis (Not Specified) NONE (Not Specified) Son (Not Specified) Mo (Not Specified) Fa (Not Specified) Sis (Not Specified) Review of patient's allergies indicates: Allergen Reactions Codeine Psych complications Patient's Medications New Prescriptions No medications on file Previous Medications ACCU-CHEK GUIDE IN VITRO STRIP (GLUCOSE BLOOD) Check sugars once daily E11.9 ACCU-CHEK GUIDE W/DEVICE KIT Use as directed. Check sugars once daily E11.9 ACCU-CHEK SOFTCLIX LANCETS Check sugars once daily E11.9 ACETAMINOPHEN 325 MG ORAL TABLET Take 1 Tablet by mouth every 6 hours as needed. ALLOPURINOL 100 MG ORAL TABLET (ZYLOPRIM) TAKE 1 TABLET BY MOUTH ONCE DAILY IN THE MORNING AMLODIPINE BESYLATE 2.5 MG ORAL TABLET (NORVASC) Take by mouth 1 Tablet before bedtime. ATORVASTATIN CALCIUM 40 MG ORAL TABLET (LIPITOR) TAKE 1 TABLET BY MOUTH AT BEDTIME CALCITRIOL 0.5 MCG ORAL CAPSULE (ROCALTROL) Take 1 Capsule by mouth in the morning. CLOPIDOGREL BISULFATE 75 MG ORAL TABLET (PLAVIX) TAKE 1 TABLET BY MOUTH ONCE DAILY IN THE MORNING DOCUSATE SODIUM 100 MG ORAL CAPSULE (COLACE) 1 Capsule in the morning and 1 Capsule before bedtime. ELIQUIS 2.5 MG ORAL TABLET (APIXABAN) TAKE 1 TABLET BY MOUTH IN THE MORNING AND AT BEDTIME ESCITALOPRAM OXALATE 20 MG ORAL TABLET (LEXAPRO) Take 1 Tablet by mouth in the morning. FAMOTIDINE 20 MG ORAL TABLET (PEPCID) TAKE 1 TABLET BY MOUTH IN THE MORNING AND AT BEDTIME FUROSEMIDE 20 MG ORAL TABLET (LASIX) Take 1 Tablet by mouth in the morning. ISOSORBIDE MONONITRATE ER 30 MG ORAL TABLET EXTENDED RELEASE 24 HOUR (IMDUR) TAKE 1 TABLET BY MOUTHONCE DAILY IN THE MORNING LEVOTHYROXINE SODIUM 88 MCG ORAL TABLET (LEVOXYL) TAKE 1 TABLET BY MOUTH ONCE DAILY IN THE MORNING AT LEAST 30 MINUTES PRIOR TO BREAKFAST OR OTHER MEDS MAGNESIUM OXIDE 400 MG ORAL TABLET Take 1 Tablet by mouth in the morning. METOPROLOL SUCCINATE ER 25 MG ORAL TABLET EXTENDED RELEASE 24 HOUR (TOPROL XL) Take 1 Tablet by mouth in the morning and 1 Tablet before bedtime. MISC. DEVICES Accu-check guide glucometer kit and lancets E11.9 Use daily as directed NITROGLYCERIN 0.4 MG SUBLINGUAL TABLET SUBLINGUAL (NITROSTAT) Place 1 Tablet under the tongue every5 minutes as needed for Pain, Chest. ONDANSETRON 4 MG ORAL TABLET DISINTEGRATING (ZOFRAN) Place under the tongue 1 Tablet every 8 hours as needed for Nausea or Vomiting. ROLLATOR ULTRA-LIGHT Use as directed/needed SPACER/AERO-HOLDING CHAMBERS SISI Use with inhaler. TRIAMCINOLONE ACETONIDE 0.5 % EXTERNAL CREAM (ARISTOCORT) Apply topically to affected area 2 times a day. To affected area. VENTOLIN HFA 108 (90 BASE) MCG/ACT INHALATION AEROSOL SOLUTION INHALE 2 PUFFS IN THE MORNING, 2 PUFFS AT NOON, 2 PUFFS IN THE EVENING AND 2 PUFFS AT BEDTIME Modified Medications No medications on file Discontinued Medications No medications on file DATA REVIEWED: Results for orders placed or performed in visit on 04/09/24 CBC Result Value Ref Range WBC 11.84 (H) 4.00 - 10.80 K/uL RBC 3.77 3.85 - 5.15 M/uL HGB 12.4 12.0 - 15.3 g/dL HCT 39.0 36.0 - 45.2 % MCV 103.4 81.5 - 97.5 fL MCH 32.9 27.0 - 34.0 pg MCHC 31.8 32.0 - 36.0 g/dL RDW 16.7 11.5 - 15.5 % PLT 311 140 - 400 K/uL MPV 11.0 6.6 - 11.1 fL Results for orders placed or performed in visit on 06/10/24 BASIC METABOLIC PANEL Result Value Ref Range BUN 31 (H) 6 - 20 mg/dL CREATININE 1.8 (H) 0.5 - 1.0 mg/dL EGFR 28 (L) >=60 mL/min SODIUM 139 135 - 146 mmol/L POTASSIUM 4.1 3.5 - 5.1 mmol/L CHLORIDE 102 98 - 107 mmol/L CO2 20 (L) 22 - 32 mmol/L ANION GAP 17 (H) 7 - 15 mmol/L GLUCOSE 181 (H) 70 - 120 mg/dL CALCIUM 9.8 8.4 - 10.2 mg/dL Results for orders placed or performed in visit on 01/15/18 LIPID PANEL Result Value Ref Range HOURS FASTING 12 hours Triglycerides 133 <200 mg/dL Cholesterol 130 <200 mg/dL HDL Cholesterol 50 >39 mg/dL Cholesterol-HDL Ratio 2.6 LDL Cholesterol 53 0 - 129 mg/dL Results for orders placed or performed in visit on 01/16/23 LIPID PANEL WITH DIRECT LDL IF TG IS HIGH Result Value Ref Range Triglycerides 95 <=174 mg/dL Cholesterol 107 <200 mg/dL HDL Cholesterol 54 >49 mg/dL Non-HDL Cholesterol 53 <=159 mg/dL LDL Cholesterol 34 <=129 mg/dL Lab Results Component Value Date/Time HEMOGLOBIN A1C - [facility] 7.1 (H) 06/10/2024 11:44 AM HEMOGLOBIN A1C - [facility] 7.5 (H) 04/09/2024 12:25 PM HEMOGLOBIN A1C - [facility] 6.4 (H) 09/22/2023 02:34 PM HEMOGLOBIN A1C - [facility] 6.4 (H) 08/21/2020 12:23 PM HEMOGLOBIN A1C - [facility] 6.1 (H) 01/27/2020 01:30 PM HEMOGLOBIN A1C - [facility] 5.8 (H) 01/23/2019 09:20 AM Lab Results Component Value Date/Time TSH - [facility] 1.38 10/19/2023 11:17 AM TSH - [facility] 0.73 05/08/2023 10:12 AM TSH - [facility] 0.15 (L) 09/06/2022 02:06 PM TSH - [facility] 6.09 (H) 09/16/2020 11:40 AM TSH - [facility] 2.30 11/14/2016 04:17 PM TSH - [facility] 4.32 (H) 06/15/2016 04:40 PM No results found for: "KAYLA" Hepatitis C Antibody Date Value Ref Range Status 06/23/2017 NEGATIVE NEG Final No results found for: "LYME" No results found for: "RPR" No results found for: "FTA-ABS" No results found for: "VDRL" Results for orders placed or performed in visit on 09/22/23 VITAMIN B12 Result Value Ref Range Vitamin B12 327 232 - 1,245 pg/mL Results for orders placed or performed in visit on 09/22/23 FOLIC ACID Result Value Ref Range Folic Acid >20.0 >4.5 ng/mL No results found for: "[id number]" No results found for: "[id number]" No results found for: "[id number]" 25OH VITAMIN D TOTAL (ng/mL) Date Value 02/20/2018 44 04/20/2017 46 12/03/2015 40 25-Hydroxy Vitamin D (ng/mL) Date Value 06/30/2022 20 05/17/2021 24 03/24/2021 22 Vitamin D Level Interpretation deficient: <20 ng/ml insufficient: 20-30 ng/ml normal: 31-100 ng/ml IMAGING STUDIES: No neuroimaging to review PHYSICAL EXAMINATION Vital Signs - BP 118/72 (BP Site: Right Arm, BP Position: Sitting, BP Cuff Size: Regular) | Pulse 80 | Temp 37.1 C (98.8 F) (Tympanic) | Resp 16 | Wt 67.9 kg (149 lb 12.8 oz) | SpO2 97% | BMI 29.26 kg/m | BSA 1.7 m General - appears as stated age, well nourished, well developed, in no apparent distress. HEENT: normocephalic, atraumatic. Mood and affect: Appropriate Behavioral Observations: Effort for testing was full. Cognitive and Neurologic exam Mental status: awake and alert. Orientation intact to Date, Day of the week, State, and Floor, not to Season, Year, Month, County, City/town, and Place. Mini Mental State Exam Question: Answer: Patient is oriented to the year, season, date, day, month? 2 out of 5 (08/02/241599) Patient is oriented to the state, country, town, hospital/clinic, floor? 2 out of 5 (08/02/241599) Patient repeated three words (ex: ball, flag, tree) 3 out of 3 (08/02/241599) Patient counted backwards from 100 by 7's (93, 86, 79, 72, 65) or spelled WORLD backwards (D, L, R,O W) 0 out of 5 (08/02/241599) Patient recalled the three words previously asked (ball, flag, tree) 3 out of 3 (08/02/241599) Patient is able to identify a watch and pencil 2 out of 2 (08/02/241599) Patient is able to repeat "No ifs, ands or buts" 0 out of 1 (08/02/241599) Patient is able to take a piece of paper, fold in half and place on the floor 3 out of 3 (08/02/241599) Patient is able to read and follow directions (show patient card reading "close your eyes") 1 out of 1 (08/02/241599) Patient is able to write a sentence 1 out of 1 (08/02/241599) Patient is able to copy a drawing of intersecting pentagons 0 out of 1 (08/02/241599) Score 17 (08/02/241599) Comments (not recorded) Attention: impaired Memory: Immediate memory: 3/3 on trial 1 Executive functions: Sentence construction: intact Cranial Nerves: CN III, IV, - Extra-ocular Movements Intact,no nystagmus CN V - Facial sensation intact and equal bilaterally CN VII - no facial assymetry CN VIII - Impaired. Hearing aids present CN IX, X: Dysarthria: None CN XI- shoulder shrug intact bilaterally CN XII: tongue midline Motor: Bulk was Normal Tremor: not present at rest, no intentional component, no postural abnormality Strength in upper extremities Lower extremities: Right Left Right Left Shoulder abduction 5 5 Hip flexion 5 5 Arm flexion 5 5 Knee flexion 5 5 Arm extension 5 5 Knee extension 5 5 Finger extension 5 5 Ankle dorsiflexion 5 5 Finger abduction 5 5 Ankle plantar flexion 5 5 Sensation: intact to light touch in b/l upper and lower extremities. Coordination: Finger to Nose : slight dysmetria bilaterally Gait: Rise from chair: impaired and shuffling gait with normal arm swing bilaterally ASSESSMENT Ms. Nancy Gabriel is a 78 year oldright-handed white female with 8 years of education who presents with memory changes that started gradually about 5 years ago, ut worsened after right MCA strokein 2019. She has a history significant for Type 2 DM, gout, hypothyroidism, HTN, CKD stage 4, HLD, Tachy-leeanne syndrome, Paroxysmal atrial fibrillation, Nonischemic cardiomyopathy, Right MCA stroke, Heart failure, Cardiac pacemaker, vitamin D deficiency, GERD, hearing loss, MELQUIADES. Labs significant for A1C 7.1 (06/10/2024), creatinine 1.8, eGRF 28 (06/10/2024), No neuroimaging at [facility]. Previously neuroimaging after stroke was done at [facility]. Will need to obtain pictures of this imaging. MMSE today 17/30 with points lost for orientation, working memory, repetition, and intersecting pentagons. IADLS are all impaired except for light housekeeping. ADLS impaired for bathing and continence, butotherwise intact. Overall performance is consistent with moderate dementia, localized mostly to frontal, sub-corticalpattern etiology likely VaD +/- AD with contributions from hearing impairment, prior stroke, numerous stroke risk factors, suspected baseline learning disability and low education attainment. At thistime, neuropsychological testing IS NOT recommended due to the severity of impairment. Discussed possibly adding memantine (renally dose) but patient's sisters would like to think about it. Will avoid donepezil due to risk of bradycardia. Patient does have some psychotic symptoms which seem mild/manageable at this. Can consider additionof low dose antipsychotic in future if symptoms become problematic. Patient has 24 hour care between caregivers and her son. No recent falls. No wandering. No driving Her caregivers ensure she takes her medications as prescribed. Can consider referral to [facility] for additional resources in future if needed. Avoid cognitive impairing medications, such as benzodiazepines, antihistamines, anticholinergic (e.g.e paroxetine), muscle relaxants, medications used for bladder spasm such as oxybutynin Encouraged cognitively stimulating activities like reading, socialization and puzzles. Diagnosis: No diagnosis found. PLAN There are no diagnoses linked to this encounter. The following orders were placed: No orders of the defined types were placed in this encounter. Patient Instructions Patient Instructions I'm suspecting you have dementia, most likely due to vascular changes in your brain and possibly Alzheimer's Disease. I would consider trying a medication called memantine The drug Namenda (memantine) is a weak NMDA antagonist that theoretically may block nerve cells from dying. It can provide some small improvement in memory, thinking, and/or behavior in Alzheimersdisease. This drug is relatively low in side effects. Most common ones are headache, dizziness and drowsiness. However in our clinic I have noted that increased agitation can occur rarely, and in some patients' agitation improve with Namenda. If agitation occurs from starting or increasing the medication, call our office. Reducing the Namenda (memantine) to the last tolerated dose or simply halting it should stop the agitation. We will slowly increase the dose as follows: AM PM Week 1 5 mg Week 2 5 mg 5 mg Information on brain health and aging One thing that consistently declines with age is processing speed. The best ways to improve performance are to give yourself adequate time when pursuing cognitive tasks, work with no distractions, and avoid multitasking. Multitasking is in fact rapidly alternating between two activities, not doing two activities simultaneously. While in the past you may have been able to switch rapidly enough to maintain both activities, this can now be a problem for performance. With regards to cognitive exercise, the closer you can get to the real world activity that you wishto improve the more likely it is to carry over into real life. For example, if you want to improve remembering the names of people you meet, play a game with faces on cards that you have to match to names. In addition, theoretically learning a completely new domain of knowledge will stimulate the brain, for example, learning a new language. The online cognitive exercise program with the most evidence based medicine for actually helping reduce risk of cognitive decline is called [employer], which is a pay service. Others programs may be helpful as well. Physical exercise is one of the most important things you can do for your brain health and general health. Do at least 30 minutes every day of moderate intensity cardiovascular exercise (where it is just a little hard to talk during the exercise). Diet: Both the Mediterranean diet and the MIND-DASH diet are recommended for brain and heart health. I. The Mediterranean diet is rich in fish, olive oil, grains, and less fat and red meat has been shown to improve brain and heart health. You can visit their website, https://[facility]/, for free recipes! II. The MIND-DASH diet is a modified version of the Mediterranean diet, has also been shown to reduce the risk of dementia. GOOD: Green leafy vegetables (like spinach and salad greens): At least six servings a week Other vegetables: At least one a day Nuts: Five servings a week Berries: Two or more servings a week Beans: At least three servings a week Whole grains: Three or more servings a day Fish: Once a week Poultry (like chicken or turkey): Two times a week [place] oil: Use it as your main cooking oil. Wine: One glass a day AVOID: Red meat: Less than four servings a week Butter and margarine: Less than a tablespoon daily Cheese: Less than one serving a week Pastries and sweets: Less than five servings a week Fried or fast food: Less than one serving a week Alcohol consumption: Alcohol interferes with brain function, not just during drinking or hours after drinking, but retirement it causes negative changes on the brain, such as thinking and memory problems, mood and behavior changes. In addition, it causes imbalance, increases the risk of injury and falls, risk of stroke,heart disease, liver disease, cancer, to name a few. Heavy alcohol use is defined as: For men: drinking > 4 drinks on any day, or >14 drinks per week For women: drinking > 3 drinks on any day, or > 7 drinks per week One standard drink contains 15 grams of pure alcohol. One standard drink is defined as: (https://www.cdc.gov/alcohol/fact-sheets/moderate-drinking.htm). ABV: alcohol by volume. For more information on alcohol consumption and its health effects, visit the National [place] onAlcohol Abuse and Alcoholism (NIAAA) website at: https://www.niaaa.nih.gov/khuqlcdz-vxzmgob-wylhgj Talk to your doctor if you are concerned about your drinking and would like help. You can also visit the NIAAA Alcohol Treatment Navigator website at: https://alcoholtreatment.niaaa.nih.gov/ Coffee consumption: In general, 2-3 cups of coffee may be beneficial for brain health. Refrain from 6 cups or more per day. Staying socially active and engaged also stimulates the brain and decreases the risk of dementia. I spent a total of 80 minutes coordinating, documenting, and providing care for this patient excluding time spent in the performance of separately billed services or time spent by another provider/QHP. SARITHA Morales Nurse Practitioner Neuroscience [facility] 08/02/24 documented in this encounter Nursing Notes * Linda Dumont LPN - 08/02/2024 2:51 PM EDT Patient verified identity by spelling of last name and date. Chief Complaint Patient presents with NEW PATIENT documented in this encounter Plan of Treatment Upcoming Encounters Date Type Department Care Team (Late st Contact Info) Description 08/30/2024 2:30 PM EST Office Visit Cardiology, [facility] [address] [address] Brian Anne MD [address] [place] [address] 2024 2:00 PM EST Office Visit Family Practice [facility] [address] [place] [address] Kasandra Antunez DO [address] [place] [address] 02/21/2025 3:00 PM EDT Office Visit Neurology [address] [facility] [place] [address] Chichi Varela CRNP [address] [facility] [address] Scheduled Procedures Name Priority Associated Diagnoses Date/Ti me COLONOSCOPY FLEXIBLE PROXIMAL DIAGNOSTIC Recall History of colon polyps Scheduled Referrals Name Type Priority Associated Diagnoses Orde r Schedule ADULT NEUROLOGY REFERRAL OP Referral Within 3 days (urgent) Confusion Ordered: 05/30/2024 Health Maintenance Due Date Last Done Comments [...] as of this encounter Visit Diagnoses Diagnosis Moderate dementia with psychotic disturbance, unspecified dementia type (HCC)- Primary documented in this encounter Advance Directives Documents on File Type Date Recorded Patient Rip/Mould Operator Expl anation Power of Guide Excursion 04/08/2024 Rajeev "Reginald" Chronsandie signed on 04/05/2024 [facility] POA Advance Directives and Living Will 06/15/2022 [place] Advance Health Ca re Directive - signed 06/15/2020 Healthcare Agents on File Name Relationship Healthcare Agent Relationship Communication Rajeev "Reginald" Chronsandie Adult Child Health C are Agent (per Health Care Power of Guide Excursion document) [email or web address] Care Teams Time Study Technologist Relationship Specialty Start Date End Date Kasandra Antunez DO [address] [place] [address] PCP - General Family Medicine 10/28/11 documented as of this encounter
--- OUTSIDE RECORDS SUMMARY | 2024-08-09 13:16 | External Medical Summary | Summary of Care ---
Author Name Unknown Organization [facility] Address [address] [place] [address] Phone [phone] Care Team Providers Care Eating Disorder Specialist Name Role Phone Kasandra Antunez Primary Care Provider Reason for Visit * Reason Onset Date Comments Medication Question 06/18/2024 Encounter Details Date Type Department Care Team (Late st Contact Info) Description 06/18/2024 Telephone Cardiology, [facility] [address] [place] [address] Ruby Blandon CRNP [address] [place] [address] Medication Question Allergies Active Allergy Reactions Criticality Noted Date Comments Codeine Psych complications 12/05/2011 documented as of this encounter (statuses as of 06/19/2024) Medications Medication Sig Dispensed Refills Start Date [...] as of this encounter (statuses as of 06/19/2024) Active Problems Problem Noted Date Diagnosed Date Type 2 diabetes mellitus wit h hemoglobin A1c goal of less than 7.5% 05/07/2024 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 Chronic heart failure with r educed ejection fraction and diastolic dysfunction 01/01/2024 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 [...] as of this encounter (statuses as of 06/19/2024) Resolved Problems Problem Noted Date Diagnosed Date Resolved Date Acute respiratory failure with hypoxia 10/08/2021 11/03/2021 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 [...] as of this encounter (statuses as of 06/19/2024) Immunizations Name Administration Dates Next Due COVID-19 mRNA, LNP-s, No Pre serve, 2-Dose Series (Moderna) 11/19/2021,05/19/2021,04/21/2021 COVID-19, MRNA-LNP, 23-24, P F, 50 MCG/0.5 mL, 12 YRS AND ABOVE, IM (MODERNA-Spikevax) 07/21/2023 Covid-19, Mrna, Lnp-s, Pf, B ivalent, 30 Mcg, IM, 12 yrs and above (Pfizer) 09/29/2022 Pneumococcal Conjugate Vacc, 13 Valent (Prevnar) 08/03/2015 Pneumococcal Conjugate Vacci ne, 20-valent ([id number]) 04/11/2024 Pneumococcal Polysaccharide PPV23 (Pneumovax) 09/09/2013,10/19/2010,08/20/2007 Season [...] encounter Miscellaneous Notes * Telephone Encounter - Tracy Kelly PHARM Tech - 06/19/2024 11:56 AM EDT Called pharmacy, spoke to Abram [facility] advised The only change made to medications in the cardiology clinic yesterday was increase Toprol to 25 mgtwice per day. Thank You, Tracy Kelly [facility] Arts Education Teacher III [facility] 06/19/2024, 11:56 AM * Telephone Encounter - Ruby Blandon CRNP - 06/19/2024 9:51 AM EDT The only change made to medications in the cardiology clinic yesterday was increase Toprol to 25 mgtwice per day. Thank You SARITHA Guy * Telephone Encounter - Tracy Kelly PHARM Tech - 06/18/2024 5:11 PM EDT Pharmacy calling as they package pt's medication. They were advised by the daughter that she thought there were two changes to her medication today. Pharmacy did get dose change on the metoprolol. Asking if there were any other changes to medication Please review. Thank You, Tracy Kelly [facility] Arts Education Teacher III [facility] ([facility] 06/18/2024, 5:13 PM documented in this encounter Plan of Treatment Upcoming Encounters Date Type Department Care Team (Late st Contact Info) Description 08/02/2024 3:00 PM EDT Office Visit Neurology [facility] [address] [facility] [place] [address] Chichi Varela CRNP [address] [place] [address] 08/19/2024 6:00 PM EDT Office Visit Family Practice [facility] [address] [facility] [place] [address] Kasandra Antunez, [address] [facility] [place] [address] 08/30/2024 2:30 PM EST Office Visit Cardiology, [facility] [address] [facility] [place] [address] Brian Anne MD [address] [place] [address] Scheduled Procedures Name Priority Associated Diagnoses Date/Ti [...] Documents on File Type Date Recorded Patient Ham Passer Expl anation Power of Automatic Brine Mixer Operator 04/08/2024 signed on 04/05/2024 POWER OF CASING BUILDER Advance Directives and Living Will 06/15/2022 ADVANCE DIRECTIVE / LIVING WILL Healthcare Agents on File Name Relationship Healthcare Agent Relationship Communication Rajeev "Reginald" Chronister Adult Child Health C are Ham Passer (appointed verbally by patient or by statute hierarchy) Care Teams Eating Disorder Specialist Relationship Specialty Start Date End Date Kasandra Antunez DO [address] [place] [address] PCP - General Family Medicine 10/28/11 documented as of this encounter
--- OUTSIDE RECORDS SUMMARY | 2024-08-09 13:17 | External Medical Summary | Summary of Care ---
Author Name Unknown Organization [facility] Address [address] [place] [address] Phone [phone] Care Team Providers Care Cvicu Rn Name Role Phone Kasandra Antunez Primary Care Provider Encounter Details Date Type Department Care Team (Late st Contact Info) Description 06/18/2024 Result Scan Unspecified Department <No scans attached> [...] diastolic dysfunction 01/01/2024 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 chrome worker 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 [...] hypoxia 10/08/2021 11/03/2021 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 chrome worker 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 [...] (Prevnar) 08/03/2015 Pneumococcal Conjugate Vacci ne, 20-valent ([id number]) 04/11/2024 Pneumococcal Polysaccharide PPV23 (Pneumovax) 09/09/2013,10/19/2010,08/20/2007 Season [...] 08/02/2024 3:00 PM EDT Office Visit Neurology [facility] [address] [facility] [place] [address] Chichi Varela CRNP [address] [place] [address] 08/19/2024 6:00 PM EDT Office Visit Family Practice [facility] [address] [place] [address] Kasandra Antunez, [address] [facility] [place] [address] 08/30/2024 2:30 PM EST Office Visit Cardiology, [facility] [address] [place] [address] Brian Anne MD [address] [facility] [place] [address] Scheduled Procedures Name Priority Associated Diagnoses Date/Ti [...] Date/Time Associated Diagnosis Comments CARDIOLOGY SCANNED RESULT 06/18/2024 documented in this encounter Results * CARDIOLOGY SCANNED RESULT (06/18/2024) 06/18/2024 No Physician Data Unknown OTHER documented in this encounter Advance Directives Documents on File Type Date Recorded Patient Furniture Lumber Production Worker Expl anation Power of Dam Tender Assistant 04/08/2024 signed on 04/05/2024 POWER OF CEMETERY WORKER Advance Directives and Living Will 06/15/2022 ADVANCE DIRECTIVE / LIVING WILL Healthcare Agents on File Name Relationship Healthcare Agent Relationship Communication Rajeev "Reginald" Chronister Adult Child Health C are Furniture Lumber Production Worker (appointed verbally by patient or by statute hierarchy) Care Teams Cvicu Rn Relationship Specialty Start Date End Date Kasandra Antunez DO [address] [place] [address] PCP - General Family Medicine 10/28/11 documented as of this encounter
--- OUTSIDE RECORDS SUMMARY | 2024-08-09 13:17 | External Medical Summary | Summary of Care ---
Author Name Unknown Organization [facility] Address [address] [place] [address] Phone [phone] Care Team Providers Care Web Production Designer Name Role Phone Kasandra Antunez DO Primary Care Provider Reason for Visit * Reason Onset Date Comments Test Results Lab 06/12/2024 Encounter Details Date Type Department Care Team (Late st Contact Info) Description 06/12/2024 Telephone Family Practice [facility] [place] [address] [facility] [place], [place] [address] Kasandra Antunez DO [address] [facility] [place] [address] Test Results Lab Allergies Active Allergy Reactions Criticality Noted Date Comments Codeine Psych complications 12/05/2011 documented as of this encounter (statuses as of 06/12/2024) Medications Medication Sig Dispensed Refills Start Date [...] or Vomiting. 20 Tablet 11 05/17/2024 Active Metoprolol Succinate ER 25 MG Oral Tablet Extended Release 24 Hour (toPROL XL) Take 1 Tablet by mouth in the morning. 30 Tablet 5 05/17/2024 Active Magnesium Oxide 400 MG Oral Tablet Take 1 Tablet by mouth in the morning. 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 chronic condition nurse 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 [...] as of this encounter (statuses as of 06/12/2024) Immunizations Name Administration Dates Next Due COVID-19 mRNA, LNP-s, No Pre serve, 2-Dose Series (Moderna) 11/19/2021,05/19/2021,04/21/2021 COVID-19, MRNA-LNP, 23-24, P F, 50 MCG/0.5 mL, 12 YRS AND ABOVE, IM (MODERNA-Spikevax) 07/21/2023 Covid-19, Mrna, Lnp-s, Pf, B ivalent, 30 Mcg, IM, 12 yrs and above (Pfizer) 09/29/2022 Pneumococcal Conjugate Vacc, 13 Valent (Prevnar) 08/03/2015 Pneumococcal Conjugate Vacci ne, 20-valent ([id number]) 04/11/2024 Pneumococcal Polysaccharide PPV23 (Pneumovax) 09/09/2013,10/19/2010,08/20/2007 Season [...] Miscellaneous Notes * Telephone Encounter - Xochitl Morales MED ASSIST - 06/12/2024 8:55 AM EDT Patient's sister aware and receptive to instructions. * Telephone Encounter - Xochitl Morales MED ASSIST - 06/12/2024 8:54 AM EDT ----- Message from Gracy Joya sent at 06/11/2024 8:35 AM EDT ----- HgbA1c improved--nearly at goal. Will have her continue her current regimen for now. Her BMP also looked stable. F/up with her PCP in the fall as sched. documented in this encounter Plan of Treatment Upcoming Encounters Date Type Department Care Team (Late st Contact Info) Description 06/18/2024 2:00 PM EDT Office Visit Cardiology, [facility] [address] [facility] [place] [address] Ruby Blandon CRNP [address] [place] [address] 08/02/2024 3:00 PM EDT Office Visit Neurology [facility] [address] [facility] [address] [place] [address] Chichi Varela CRNP [address] [place] [address] 08/19/2024 6:00 PM EDT Office Visit Family Practice [facility] [address] [facility] [place] [address] Kasandra Antunez, [address] [facility] [place] [address] 08/30/2024 2:30 PM EST Office Visit Cardiology, [facility] [address] [place] [address] Brian Anne MD [address] [place] [address] Scheduled Procedures Name Priority Associated Diagnoses Date/Ti [...] Documents on File Type Date Recorded Patient Erp Analyst Expl anation Power of Travel Agent 04/08/2024 signed on 04/05/2024 POWER OF SHOT POLISHER AND INSPECTOR Advance Directives and Living Will 06/15/2022 ADVANCE DIRECTIVE / LIVING WILL Healthcare Agents on File Name Relationship Healthcare Agent Relationship Communication Rajeev "Reginald" Chronister Adult Child Health C are Erp Analyst (appointed verbally by patient or by statute hierarchy) Care Teams Web Production Designer Relationship Specialty Start Date End Date Kasandra Antunez DO [address] [place] [address] PCP - General Family Medicine 10/28/11 documented as of this encounter
--- OUTSIDE RECORDS SUMMARY | 2024-08-09 13:17 | External Medical Summary ---
Author Name Unknown Address Unknown Organization K[facility] [place] [place] [address] Laboratory Report Ordering Provider Test Date Status ABEBA JIMÉNEZ 06/10/2024 11:44:26 Final Observation Date Value Abnormality Reference (Units ) Status BUN 06/10/2024 11:44:26 31 Above high normal 6-20 (mg/dL) Final Creatinine 06/10/2024 11:44:26 1.8 Above high normal 0.5-1.0 (mg/dL) Final Glomerular filtration rate/1.73 sq M.predicted [Volume Rate/Area] in Serum, Plasma or Blood by Creatinine-based formula (CKD-EPI) 06/10/2024 11:44:26 28 Below low normal >=60 (mL/min) Final eGFR is calculated based on the CKD-EPI 2020 equation. Sodium 06/10/2024 11:44:26 139 135-146 (m mol/L) Final Potassium 06/10/2024 11:44:26 4.1 3.5-5.1 (m mol/L) Final Cl 06/10/2024 11:44:26 102 98-107 (mm ol/L) Final CO2 06/10/2024 11:44:26 20 Below low normal 22- 32 (mmol/L) Final Anion gap 06/10/2024 11:44:26 17 Above high normal 7- 15 (mmol/L) Final Glucose 06/10/2024 11:44:26 181 Above high normal 70 -120 (mg/dL) Final Calcium 06/10/2024 11:44:26 9.8 8.4-10.2 ( mg/dL) Final Performing Location [facility] [address] [place] [address]
--- OUTSIDE RECORDS SUMMARY | 2024-08-09 13:17 | External Medical Summary | Summary of Care ---
Author Name Unknown Organization [facility] Address [address] [place] [address] Phone [phone] Care Team Providers Care Top Coater Name Role Phone Kasandra Antunez Primary Care Provider Reason for Visit * Reason Onset Date Comments Test Results 06/10/2024 Encounter Details Date Type Department Care Team (Late st Contact Info) Description 06/10/2024 Telephone Cardiology, [facility] [address] [facility] [place] [address] Roberto Winter, [facility] [address] [facility] [address] Test Results Allergies Active Allergy Reactions Criticality Noted Date Comments Codeine Psych complications 12/05/2011 documented as of this encounter (statuses as of 06/10/2024) Medications Medication Sig Dispensed Refills Start Date [...] as of this encounter (statuses as of 06/10/2024) Active Problems Problem Noted Date Diagnosed Date Type 2 diabetes mellitus wit h hemoglobin A1c goal of less than 7.5% 05/07/2024 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 Chronic heart failure with r educed ejection fraction and diastolic dysfunction 01/01/2024 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 [...] as of this encounter (statuses as of 06/10/2024) Resolved Problems Problem Noted Date Diagnosed Date Resolved Date Acute respiratory failure with hypoxia 10/08/2021 11/03/2021 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 [...] as of this encounter (statuses as of 06/10/2024) Immunizations Name Administration Dates Next Due COVID-19 mRNA, LNP-s, No Pre serve, 2-Dose Series (Moderna) 11/19/2021,05/19/2021,04/21/2021 COVID-19, MRNA-LNP, 23-24, P F, 50 MCG/0.5 mL, 12 YRS AND ABOVE, IM (MODERNA-Spikevax) 07/21/2023 Covid-19, Mrna, Lnp-s, Pf, B ivalent, 30 Mcg, IM, 12 yrs and above (Pfizer) 09/29/2022 Pneumococcal Conjugate Vacc, 13 Valent (Prevnar) 08/03/2015 Pneumococcal Conjugate Vacci ne, 20-valent ([id number]) 04/11/2024 Pneumococcal Polysaccharide PPV23 (Pneumovax) 09/09/2013,10/19/2010,08/20/2007 Season [...] encounter Miscellaneous Notes * Telephone Encounter - Michi Spann LPN - 06/10/2024 2:39 PM EDT Called and left a message to make patient aware. ----- Message from Roberto Winter sent at 06/10/2024 2:34 PM EDT ----- OK/stable documented in this encounter Plan of Treatment Upcoming Encounters Date Type Department Care Team (Late st Contact Info) Description 06/18/2024 2:00 PM EDT Office Visit Cardiology, [address] [place] [address] Ruby Blandon CRNP [address] [place] [address] 08/02/2024 3:00 PM EDT Office Visit Neurology [facility] [address] [place] [address] Chichi Varela CRNP [address] [place] [address] 08/19/2024 6:00 PM EDT Office Visit Family Practice [facility] [address] [place] [address] Kasandra Antunez DO [address] [place] [address] 08/30/2024 2:30 PM EST Office Visit Cardiology, [facility] [address] [facility] [place] [address] Brian Anne MD [address] [place] [address] Scheduled Procedures Name Priority Associated Diagnoses Date/Ti [...] 04/09/2024, 12/0 10/2022, 01/16/2023, Additional history exists TSH 10/19/2024 10/19/2023, 04/22, 09/06/2022, Additional history exists GFR 12/11/2024 06/10/2024, 03/24, 04/09/2024, Additional history exists Depression Screening 03/26/2025 03/26/2024 [...] Documents on File Type Date Recorded Patient Finance Broker Expl anation Power of Assembler [place] [place] 04/08/2024 signed on 04/05/2024 POWER OF SENIOR PYTHON DEVELOPER Advance Directives and Living Will 06/15/2022 ADVANCE DIRECTIVE / LIVING WILL Healthcare Agents on File Name Relationship Healthcare Agent Relationship Communication Rajeev "Reginald" Chronister Adult Child Health C are Finance Broker (appointed verbally by patient or by statute hierarchy) Care Teams Top Coater Relationship Specialty Start Date End Date Kasandra Antunez DO [address] [place] [address] PCP - General Family Medicine 10/28/11 documented as of this encounter
--- OUTSIDE RECORDS SUMMARY | 2024-08-09 13:17 | External Medical Summary | Summary of Care ---
Author Name Unknown Organization [facility] Address [address] [place] [address] Phone [phone] Care Team Providers Care Ranger Aide Name Role Phone Vilma Antunez DO Primary Care Provider Reason for Visit * Reason Comments eRx-Medication Refill Encounter Details Date Type Department Care Team (Late st Contact Info) Description 06/14/2024 Refill Family Practice [facility] [place] [address] [facility] [place] [address] Vilma Antunez DO 200 [facility] [place] [address] Allergies Active Allergy Reactions Criticality Noted Date Comments Codeine Psych complications 12/05/2011 documented as of this encounter (statuses as of 06/14/2024) Medications Medication Sig Dispensed Refills Start Date [...] the morning. 30 Tablet 5 4 Active Magnesium Oxide 400 MG Oral Tablet Take 1 Tablet by mouth in the morning. 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 Chronic heart failure with r educed ejection fraction and diastolic dysfunction 01/01/2024 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 doctor's assistant 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 [...] as of this encounter (statuses as of 06/14/2024) Resolved Problems Problem Noted Date Diagnosed Date Resolved Date Acute respiratory failure with hypoxia 10/08/2021 11/03/2021 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 doctor's assistant 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 [...] as of this encounter (statuses as of 06/14/2024) Immunizations Name Administration Dates Next Due COVID-19 mRNA, LNP-s, No Pre serve, 2-Dose Series (Moderna) 11/19/2021,05/19/2021,04/21/2021 COVID-19, MRNA-LNP, 23-24, P F, 50 MCG/0.5 mL, 12 YRS AND ABOVE, IM (MODERNA-Spikevax) 07/21/2023 Covid-19, Mrna, Lnp-s, Pf, B ivalent, 30 Mcg, IM, 12 yrs and above (Pfizer) 09/29/2022 Pneumococcal Conjugate Vacc, 13 Valent (Prevnar) 08/03/2015 Pneumococcal Conjugate Vacci ne, 20-valent ([id number]) 04/11/2024 Pneumococcal Polysaccharide PPV23 (Pneumovax) 09/09/2013,10/19/2010,08/20/2007 Season [...] encounter Miscellaneous Notes * Telephone Encounter - Ana Diaz [facility] - 06/14/2024 8:02 PM EDT Signed Prescriptions: Disp Refills Levothyroxine Sodium 88 MCG Oral Tablet (L*90 Tab*1 Sig: TAKE 1 TABLET BY MOUTH ONCE DAILY IN THE MORNING AT LEAST 30 MINUTES PRIOR TO BREAKFAST OR OTHER MEDSAuthorizing Provider: VILMA ANTUNEZ User: ANA DIAZ documented in this encounter Plan of Treatment Upcoming Encounters Date Type Department Care Team (Late st Contact Info) Description 06/18/2024 2:00 PM EDT Office Visit Cardiology, [facility] 132 [facility] [place] [address] Ruby Blandon CRNP [address] [facility] [place] [address] 08/02/2024 3:00 PM EDT Office [facility] [address] Chichi [facility]arela CR[facility] 100 [facility] [address] 08/19/2024 6:00 PM EDT Office Visit Family Practice [facility] 200 [facility] [place] [address] Vilma Antunez, 200 [facility] [place] [address] 08/30/2024 2:30 PM EST Office Visit Cardiology, [facility] [address] [place] [address] Brian Anne MD [address] [place] [address] Scheduled Procedures Name Priority Associated Diagnoses Date/Ti [...] Documents on File Type Date Recorded Patient Learning Design Specialist Expl anation Power of Trackman 04/08/2024 signed on 04/05/2024 POWER OF CREW SUPERVISOR Advance Directives and Living Will 06/15/2022 ADVANCE DIRECTIVE / LIVING WILL Healthcare Agents on File Name Relationship Healthcare Agent Relationship Communication Rajeev "Reginald" Chronister Adult Child Health C are Learning Design Specialist (appointed verbally by patient or by statute hierarchy) Care Teams Ranger Aide Relationship Specialty Start Date End Date Vilma Antunez DO [address] [place] [address] PCP - General Family Medicine 10/28/11 documented as of this encounter
--- OUTSIDE RECORDS SUMMARY | 2024-08-09 13:17 | External Medical Summary | Summary of Care ---
Author Name Unknown Organization [facility] Address [address] [place] [address] Phone [phone] Care Team Providers Care Lead Tank Mechanic Name Role Phone Kasandra Antunez Primary Care Provider Reason for Referral * (Within 10 days (routine)) - Authorized Specialty Diagnoses / Procedures Referred By Contac t Referred To Contact Radiology Diagnoses Thickened endometrium Procedures US PELVIS TRANS-VAGINAL NON-OB Gracy Joya PA-C [address] [place] [address] Referral ID Status Reason Start Date Expiration Date V isits Requested Visits Authorized [id number] Authorized 05/30/2024 999 999 * Evaluate & Treat - Unlimited Visits (Within 30 days (routine)) - Authorized Specialty Diagnoses / Procedures Referred By Contac t Referred To Contact Obstetrics/Gynecology / Gynecology Obstetrics Diagnoses Thickened endometrium Gracy Joya PA-C [address] [place] [address] Referral ID Status Reason Start Date Expiration Date Visits Requested Visits Authorized [id number] Authorized Specialty Services Required 05/30/2024 999 999 Question Answer Referral Priority Within 30 days (routine) What condition is the patient being seen for? Thickened endometrium Is the patient bleeding? No Patient will need an ultrasound prior to being seen by gynecology. I acknowledge Where should this appointment be scheduled? External - [facility] CLIENT RESOLUTION SPECIALIST Comments BP 102/58 | Pulse 76 | Temp 36.6 C (97.8 F) (Tympanic) | Wt 69.1 kg (152 lb 4.8 oz) * Evaluate & Treat - Unlimited Visits (Within 3 days (urgent)) - Authorized Specialty Diagnoses / Procedures Referred By Contac t Referred To Contact Neurology Diagnoses Confusion Gracy Joya PA-C [address] [facility] [address] [place] [address] Referral ID Status Reason Start Date Expiration Date Visits Requested Visits Authorized [id number] Authorized Specialty Services Required 05/30/2024 999 999 Question Answer Referral Priority Within 3 days (urgent) Where should this appointment be scheduled? [facility] Is this referral being placed for insurance purposes ONLY No, patient needs appointment [facility] NEUROLOGY REFERRAL QUESTIONS Memory/Cognition Reason for Visit * Reason Onset Date Comments Hospital Follow-Up Patient disch arged from [facility] on 05/26 following a visit for dizziness and confusion. Was dehydrated and not drinking/eating. Feels good today, is not dizzy, has been eating and drinking water. Hospital Follow-Up 05/30/2024 Encounter Details Date Type Department Care Team (Late st Contact Info) Description 05/30/2024 2:20 PM EDT Office Visit General Internal Medicine [address] [place] [address] [place] [address] Gracy Joya PA-C [address] [place] [address] Hospital discharge follow-up*; Dizziness; Confusion; Thickened endometrium; History of CVA (cerebrovascular accident); CKD (chronic kidney disease) stage 4, GFR 15-29 ml/min ([facility]); Chronic heart failure with reduced ejection fraction and diastolic dysfunction ([facility]); S/P AV eduardo ablation; Type 2 diabetes mellitus with hemoglobin A1c goal of less than 7.5% ([facility]) Allergies Active Allergy Reactions Criticality Noted Date Comments Codeine Psych complications 12/05/2011 documented as of this encounter (statuses as of 05/30/2024) Medications Medication Sig Dispensed Refills Start Date [...] 04/19/2024 Active Allopurinol 100 MG Oral Tablet (Zyloprim)Indicatio [...] by mouth in the morning. 30 Tablet 05/17/2024 Active Magnesium Oxide 400 MG Oral Tablet Take 1 Tablet by mouth in the morning. Active Metoprolol Succinate ER 25 MG Oral Tablet Extended Release 24 Hour (toPROL XL) Take 1 Tablet by mouth in the morning. 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 Chronic heart failure with r educed ejection fraction and diastolic dysfunction 01/01/2024 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 [facility] 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 [...] as of this encounter (statuses as of 05/30/2024) Resolved Problems Problem Noted Date Diagnosed Date Resolved Date Acute respiratory failure with hypoxia 10/08/2021 11/03/2021 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 [facility] 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 [...] as of this encounter (statuses as of 05/30/2024) Immunizations Name Administration Dates Next Due COVID-19 mRNA, LNP-s, No Pre serve, 2-Dose Series (Moderna) 11/19/2021,05/19/2021,04/21/2021 COVID-19, MRNA-LNP, 23-24, P F, 50 MCG/0.5 mL, 12 YRS AND ABOVE, IM (MODERNA-Spikevax) 07/21/2023 Covid-19, Mrna, Lnp-s, Pf, B ivalent, 30 Mcg, IM, 12 yrs and above (Pfizer) 09/29/2022 Pneumococcal Conjugate Vacc, 13 Valent (Prevnar) 08/03/2015 Pneumococcal Conjugate Vacci ne, 20-valent ([id number]) 04/11/2024 Pneumococcal Polysaccharide PPV23 (Pneumovax) 09/09/2013,10/19/2010,08/20/2007 Season [...] No 04/10/2024 Does the household have a [facility] source of income? (Household - for ages [...] Sign Reading Time Taken Comments Blood Pressure 102/58 05/30/2024 2:28 PM EDT Pulse 76 05/30/2024 2:28 PM EDT Temperature 36.6 C (97.8 F) 05/30/2024 2:28 PM ED T Respiratory Rate - - Oxygen Saturation - - Inhaled Oxygen Concentration - - Weight 69.1 kg (152 lb 4.8 oz) 05/30/2024 2:28 P M EDT Height - - Body Mass Index 29.74 04/11/2024 11:14 AM EDT documented in this encounter Progress Notes * Gracy Joya PA-C - 05/30/2024 2:44 PM EDT SUBJECTIVE: Nancy Gabriel is a 78 year old female. Chief Complaint Patient presents with Hospital Follow-Up Patient discharged from [facility] on 05/26 following a visit for dizziness and confusion. Was dehydrated and not drinking/eating. Feels good today, is not dizzy, has been eating and drinking water. Hospital Follow-Up Recent Admission: Patient was recently admitted to [facility]. The date of discharge was 05/26/24. Discharge report received and reviewed. HPI: Pt here today with her sister for a HFU after being admitted from 05/24-05/26 with dizziness and confusion. Pt admits she wasn't doing a good job of staying hydrated prior to presenting to ER. Dizziness resolved on admission. CT and MRI of head with no acute abnormalities. Echo was completed whichshowed significantly reduced EF at <25%--she does have f/up with cardio later this month. Sister states pt's memory seems to wax and wane. Describes sundowning type symptoms. Pt has never had work-up or treatment for her memory. Incidental thickening of endometrium noted on CT of abd/pelv. INVESTOR was consulted and recommended outpatient US and f/up. Pt denies any vaginal bleeding. Patient Active Problem List Diagnosis Hyperlipidemia with [...] A1c goal of less than 7.5% (HCC) Current Outpatient Medications Medication Sig Dispense Refill Spacer/Aero-Holding Chambers SISI Use with inhaler. 1 Device 0 Misc. Devices Accu-check guide glucometer kit and lancets E11.9 Use daily as directed 1 Each 0 Acetaminophen 325 MG Oral Tablet Take 1 Tablet by mouth every 6 hours as needed. Rollator Ultra-Light Use as directed/needed 1 Each 0 Triamcinolone Acetonide 0.5 % External Cream (Aristocort) Apply topically to affected area 2 times a day. To affected area. 60 g 5 Nitroglycerin 0.4 MG Sublingual Tablet Sublingual (Nitrostat) Place 1 Tablet under the tongue every5 minutes as needed for Pain, Chest. 25 Tablet 5 Calcitriol 0.5 MCG Oral Capsule (Rocaltrol) Take 1 Capsule by mouth in the morning. 3 Capsule 11 Ventolin HFA 108 (90 Base) MCG/ACT Inhalation Aerosol Solution INHALE 2 PUFFS IN THE MORNING, 2 PUFFS AT NOON, 2 PUFFS IN THE EVENING AND 2 PUFFS AT BEDTIME 54 g 3 Levothyroxine Sodium 88 MCG Oral Tablet (Levoxyl) TAKE 1 TABLET BY MOUTH ONCE DAILY IN THE MORNING AT LEAST 30 MINUTES PRIOR TO BREAKFAST OR OTHER MEDS 90 Tablet 1 Clopidogrel Bisulfate 75 MG [...] DAILY IN THE MORNING 90 Tablet 1 Docusate Sodium 100 MG Oral Capsule (Colace) 1 Capsule in the morning and 1 Capsule before bedtime. Accu-Chek Softclix Lancets Check sugars once daily E11.9 100 Each 3 Accu-Chek Guide w/Device Kit Use as directed. Check sugars once daily E11.9 1 Kit 0 Accu-Chek Guide In Vitro Strip (Glucose Blood) Check sugars once daily E11.9 100 Strip 3 Furosemide 20 MG Oral Tablet (Lasix) Take 1 Tablet by mouth in the morning. 90 Tablet 3 Escitalopram Oxalate 20 MG Oral Tablet (Lexapro) Take 1 Tablet by mouth in the morning. 30 Tablet 5 Allopurinol 100 MG Oral Tablet (Zyloprim) TAKE 1 TABLET BY MOUTH ONCE DAILY IN THE MORNING 90 Tablet 3 Ondansetron 4 MG Oral Tablet Disintegrating (Zofran) Place under the tongue 1 Tablet every 8 hours as needed for Nausea or Vomiting. 20 Tablet 11 Metoprolol Succinate ER 25 MG Oral Tablet Extended Release 24 Hour (toPROL XL) Take 1 Tablet by mouth in the morning. 30 Tablet 5 Magnesium Oxide 400 MG Oral Tablet Take 1 Tablet by mouth in the morning. amLODIPine Besylate 2.5 MG Oral Tablet (Norvasc) Take by mouth 1 Tablet before bedtime. (Patient not taking: Reported on 04/11/2024) 90 Tablet 3 No current facility-administered medications for this visit. Current and discharge medications have been reconciled. Review of patient's allergies indicates: Allergen Reactions Codeine Psych complications OBJECTIVE: BP 102/58 | Pulse 76 | Temp 36.6 C (97.8 F) (Tympanic) | Wt 69.1 kg (152 lb 4.8 oz) | BMI 29.74kg/m | BSA 1.71 m REVIEW OF SYSTEMS: Review of Systems Constitutional: Negative for chills and fever. Respiratory: Negative for shortness of breath. Cardiovascular: Negative for chest pain and leg swelling. Gastrointestinal: Negative for constipation, diarrhea, nausea and vomiting. Genitourinary: Negative. Negative for vaginal bleeding. Neurological: Negative for dizziness. Psychiatric/Behavioral: Positive for confusion. PHYSICAL EXAM: BP 102/58 | Pulse 76 | Temp 36.6 C (97.8 F) (Tympanic) | Wt 69.1 kg (152 lb 4.8 oz) | BMI 29.74kg/m | BSA 1.71 m Physical Exam Constitutional: General: She is not in acute distress. Appearance: She is not diaphoretic. HENT: Right Ear: Tympanic membrane, ear canal and external ear normal. Left Ear: Tympanic membrane, ear canal and external ear normal. Mouth/Throat: Mouth: Mucous membranes are moist. Pharynx: Oropharynx is clear. Cardiovascular: Rate and Rhythm: Normal rate and regular rhythm. Pulmonary: Effort: Pulmonary effort is normal. Breath sounds: Normal breath sounds. Abdominal: General: Bowel sounds are normal. Palpations: Abdomen is soft. Musculoskeletal: Cervical back: Neck supple. Skin: General: Skin is warm and dry. Neurological: General: No focal deficit present. Mental Status: She is alert. Mental status is at baseline. ASSESSMENT: Hospital discharge follow-up (Primary) - DISCH MED RECON CUR MED LIS Dizziness Confusion - ADULT NEUROLOGY REFERRAL OP Thickened endometrium - INVESTOR REFERRAL OP - US PELVIS TRANS-VAGINAL NON-OB; Future; Expected date: 05/30/2024 History of CVA (cerebrovascular accident) CKD (chronic kidney disease) stage 4, GFR 15-29 ml/min ([facility]) - BASIC METABOLIC PANEL; Future; Expected date: 06/13/2024 Chronic heart failure with reduced ejection fraction and diastolic dysfunction ([facility]) S/P AV eduardo ablation Type 2 diabetes mellitus with hemoglobin A1c goal of less than 7.5% ([facility]) - HEMOGLOBIN A1C; Future; Expected date: 06/13/2024 Follow Up: Return in about 2 months (around 07/30/2024) for Return with Physician. | For: Return with Physician | Check-out note: F/up with Dr. Antunez in 2 months for routine. PLAN: Continue present medication(s): Study(ies) ordered: Pelvic US ordered. Referral(s) to: [facility] and Neurology. Schedule labs: BMP and updated A1c in 2 weeks. Follow up in 2 month(s) with PCP as recommended at visit last month. I spent a total of Greater than 55 mins (exact time 58 mins) minutes on the date of service in preparation, delivery, and documentation of the care provided to Nancy Gabriel excluding any time spent in performance of separately billed services. Gracy Joya PA-C documented in this encounter Nursing Notes * Reyna Agudelo MED ASSIST - 05/30/2024 2:34 PM EDT Chief Complaint Patient presents with Hospital Follow-Up Patient discharged from [facility] on 05/26 following a visit for dizziness and confusion. Was dehydrated and not drinking/eating. Feels good today, is not dizzy, has been eating and drinking water. documented in this encounter Plan of Treatment Upcoming Encounters Date Type Department Care Team (Late st Contact Info) Description 06/11/2024 2:15 PM EDT Imaging Radiology [facility] [address] [facility] [place] [address] 06/18/2024 2:00 PM EDT Office Visit Cardiology, [facility] [address] [facility] [place] [address] Ruby Blandon CRNP [address] [facility] [place] [address] 08/19/2024 6:00 PM EDT Office Visit Family Practice [facility] [address] [facility] [place] [address] Kasandra Antunez, [address] [facility] [place] [address] 08/30/2024 2:30 PM EST Office Visit Cardiology, [facility] [address] [facility] [place] [address] Brian Anne MD [address] [facility] [place] [address] Scheduled Orders Name Type Priority Associated Diagnoses Orde r Schedule US PELVIS TRANS-VAGINAL NON-OB Medical Imaging Routine Thickened endometrium Expected: 05/30/2024, Expires: 06/30/2025 BASIC METABOLIC PANEL Lab Routine CKD (chronic kidney disease) stage 4, GFR 15-29 ml/min (HCC) Expected: 06/13/2024 (Approximate), Expires: 05/30/2025 HEMOGLOBIN A1C Lab Routine Type 2 diabetes mellitus with hemoglobin A1c goal of less than 7.5% (HCC) Expected: 06/13/2024 (Approximate), Expires: 05/30/2025 Scheduled Procedures Name Priority Associated Diagnoses Date/Ti me COLONOSCOPY FLEXIBLE PROXIMAL DIAGNOSTIC Recall History of colon polyps Scheduled Referrals Name Type Priority Associated Diagnoses Orde r Schedule ADULT NEUROLOGY REFERRAL OP Referral Within 3 days (urgent) Confusion Ordered: 05/30/2024 INVESTOR REFERRAL OP Referral Within 30 days (routine) Thickened endometrium Ordered: 05/30/2024 Health Maintenance Due Date Last [...] Hospital discharge follow-up- Primary Other follow-up examination Dizziness Dizziness and giddiness Confusion Unspecified psychosis Thickened endometrium Nonspecific (abnormal) findings on radiological and other examination of genitourinary organs History of CVA (cerebrovascular accident) Transient ischemic attack (TIA), and cerebral infarction without residual deficits CKD (chronic kidney disease) stage 4, GFR 15-29 ml/min ([facility]) Chronic kidney disease, Stage IV (severe) Chronic heart failure with reduced ejection fraction and diastolic dysfunction ([facility]) S/P AV eduardo ablation Other postprocedural status Type 2 diabetes mellitus with hemoglobin A1c goal of less than 7.5% ([facility]) documented in this encounter Advance Directives Documents on File Type Date Recorded Patient Outside Event Sales Specialist Expl anation Power of China Painter 04/08/2024 signed on 04/05/2024 POWER OF FRICTION PAINT MACHINE TENDER Advance Directives and Living Will 06/15/2022 ADVANCE DIRECTIVE / LIVING WILL Healthcare Agents on File Name Relationship Healthcare Agent Relationship Communication Rajeev "Reginald" Chronister Adult Child Health C are Outside Event Sales Specialist (appointed verbally by patient or by statute hierarchy) Care Teams Lead Tank Mechanic Relationship Specialty Start Date End Date Kasandra Antunez DO [address] [place] [address] PCP - General Family Medicine 10/28/11 documented as of this encounter
--- OUTSIDE RECORDS SUMMARY | 2024-08-09 13:17 | External Medical Summary ---
Author Name Unknown Address Unknown Organization K01:[facility] [place] [address] [facility] [address] Laboratory Report Ordering Provider Test Date Status THEODORE WALSH 06/10/2024 11:44:26 Final Observation Date Value Abnormality Reference (Units ) Status HbA1C 06/10/2024 11:44:26 7.1 Above high normal 4. 0-5.6 (%) Final The use of HbA1c to monitor glycemic status is based on normal hemoglobin and HbA composition. This test should not be used in patients with abnormal hemoglobin that affects the half life of the red blood cell or the in vivo glycation rates. Glucose, estimated average 06/10/2024 11:44:26 157 Above high normal <126 (mg/dL) Shailesh morrison Performing Location [facility] [place] [address] [facility] [address]
--- OUTSIDE RECORDS SUMMARY | 2024-08-09 13:17 | External Medical Summary | Summary of Care ---
Author Name Unknown Organization [facility] Address [address] [place] [address] Phone [phone] Care Team Providers Care Welding Machine Operator Helper Arc Name Role Phone Kasandra Antunez DO Primary Care Provider Reason for Visit * Reason Onset Date Comments Fax 06/12/2024 Encounter Details Date Type Department Care Team (Late st Contact Info) Description 06/12/2024 Telephone Family Practice [facility] [place] [address] [facility] [place], [place] [address] Kasandra Antunez DO [address] [facility] [place] [address] Fax Allergies Active Allergy Reactions Criticality Noted Date [...] diastolic dysfunction 01/01/2024 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 senior oracle soa developer 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 [...] hypoxia 10/08/2021 11/03/2021 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 senior oracle soa developer 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 [...] (Prevnar) 08/03/2015 Pneumococcal Conjugate Vacci ne, 20-valent ([id number]) 04/11/2024 Pneumococcal Polysaccharide PPV23 (Pneumovax) 09/09/2013,10/19/2010,08/20/2007 Season [...] Miscellaneous Notes * Telephone Encounter - Phyllis Singh LPN - 06/12/2024 2:34 PM EDT There will be no information provided to "Anjel" from [employer] Patient does not use [employer]. * Telephone Encounter - Ludivina Silva OSA - 06/12/2024 12:59 PM EDT Caller requesting the following information to be faxed: Name/Company of caller: [employer] Information requested to be faxed: Last office notes Fax number: [phone] Attention to Name/Company: NA Any additional information?: NA documented in this encounter Plan of Treatment Upcoming Encounters Date Type Department Care Team (Late st Contact Info) Description 06/18/2024 2:00 PM EDT Office Visit Cardiology, [facility] [address] [facility] [place] [address] Ruby Blandon CRNP [address] [facility] [place] [address] 08/02/2024 3:00 PM EDT Office Visit [facility] [address] [facility] [address] Chichi Varela CRNP 100 [facility] [place] [address] 08/19/2024 6:00 PM EDT Office Visit Family Practice [facility] [address] [facility] [place] [address] Kasandra Antunez, [address] [facility] [address] [facility] [place] [address] 08/30/2024 2:30 PM EST Office Visit Cardiology, [facility] [address] [place] [address] Brian Anne MD [address] [place] [address] Scheduled Procedures Name Priority Associated Diagnoses Date/Ti [...] Documents on File Type Date Recorded Patient Child Care Nurse Expl anation Power of Assistant Baseball Coach 04/08/2024 signed on 04/05/2024 POWER OF GRINDER GEAR Advance Directives and Living Will 06/15/2022 ADVANCE DIRECTIVE / LIVING WILL Healthcare Agents on File Name Relationship Healthcare Agent Relationship Communication Rajeev "Reginald" Chronister Adult Child Health C are Child Care Nurse (appointed verbally by patient or by statute hierarchy) Care Teams Welding Machine Operator Helper Arc Relationship Specialty Start Date End Date Kasandra Antunez DO [address] [place] [address] PCP - General Family Medicine 10/28/11 documented as of this encounter
--- OUTSIDE RECORDS SUMMARY | 2024-08-09 13:17 | External Medical Summary | Summary of Care ---
Author Name Unknown Organization [facility] Address [address] [place] [address] Phone [phone] Care Team Providers Care Clinical Data Analyst Name Role Phone Moender Kasandra Arreguinbernikia WHEELER Primary Care Provider Reason for Visit * Reason Comments Outpatient Testing Encounter Details Date Type Department Care Team (Late st Contact Info) Description 06/10/2024 12:00 PM EDT Laboratory Laboratory [facility] [place] [address] [place] [address] [place], Lab [facility] [address] [facility] [place] [address] CKD (chronic kidney disease) stage 4, GFR 15-29 ml/min ([facility]); Chronic heart failure with reduced ejection fraction and diastolic dysfunction ([facility]); HFrEF (heart failure with reduced ejection fraction) ([facility]); Type 2 diabetes mellitus with hemoglobin A1c goal of less than 7.5% (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 [...] (Prevnar) 08/03/2015 Pneumococcal Conjugate Vacci ne, 20-valent ([id number]) 04/11/2024 Pneumococcal Polysaccharide PPV23 (Pneumovax) 09/09/2013,10/19/2010,08/20/2007 Season [...] 06/18/2024 2:00 PM EDT Office Visit Cardiology, [facility] [address] [place] [address] Ruby Blandon CRNP [address] [place] [address] 08/02/2024 3:00 PM EDT Office Visit Neurology [facility] [address] [facility] [place] [address] Chichi Varela CRNP [address] [place] [address] 08/19/2024 6:00 PM EDT Office Visit Family Practice [facility] [address] [facility] [place] [address] Kasandra Antunez, [address] [place] [address] 08/30/2024 2:30 PM EST Office Visit Cardiology [facility] [address] [place] [address] Brian Anne MD [address] [place] [address] Pending Results Name Type Priority Associated Diagnoses Date /Time BASIC METABOLIC PANEL Lab Routine CKD (chronic kidney disease) stage 4, GFR 15-29 ml/min ([facility]) Chronic heart failure with reduced ejection fraction and diastolic dysfunction ([facility]) HFrEF (heart failure with reduced ejection fraction) ([facility]) 06/10/2024 11:44 AM EDT HEMOGLOBIN A1C Lab Routine Type 2 diabetes mellitus with hemoglobin A1c goal of less than 7.5% (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
--- OUTSIDE RECORDS SUMMARY | 2024-08-09 13:17 | External Medical Summary | Summary of Care ---
Author Name Unknown Organization [facility] Address [address] [place] [address] Phone [phone] Care Team Providers Care Retirement Specialist Name Role Phone Kasandra Antunez DO Primary Care Provider Reason for Visit * Reason Onset Date Comments Home Health 03/13/2024 Encounter Details Date Type Department Care Team (Late st Contact Info) Description 03/13/2024 Telephone Family Practice [facility] [place] [address] [place], [place] [address] Kasandra Antunez DO [address] [facility] [place], [place] [address] Home Health Allergies Active Allergy Reactions Criticality Noted Date [...] diastolic dysfunction 01/01/2024 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 deputy chief magistrate 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 [...] hypoxia 10/08/2021 11/03/2021 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 deputy chief magistrate 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 [...] 30 Mcg, IM, 12 yrs and above (Quantum4D) 09/29/2022 Pneumococcal Conjugate Vacc, 13 Valent (Prevnar) [...] encounter Miscellaneous Notes * Telephone Encounter - Myriam Scott LPN - 03/13/2024 10:11 AM EDT Admission/Start of Care Admission/Start of Care: Myriam PAYNE, Calling from: [facility] Patient was Admitted to: [facility], for: A-fib ckd d/c date 03/15 Referral ordered by: Martha Referral received for: [facility], PT, and OT Planned start of care date:No- No date set at this time Start of care completed on: n/a They will call with any updates or additional concerns from the upcoming HH visit. Last Office Visit: 10/19/2023 Has patient been scheduled or seen in the office for a follow up visit: Needs contacted to schedulefollow up documented in this encounter Plan of Treatment Upcoming Encounters Date Type Department Care Team (Late st Contact Info) Description 06/18/2024 2:00 PM EDT Office Visit Cardiology, [facility] [address] [facility] [place] [address] Ruby Blandon CRNP [address] [place] [address] 08/02/2024 3:00 PM EDT Office Visit Neurology [facility] [address] [place] [address] Chichi Varela CRNP [address] [place] [address] 08/19/2024 6:00 PM EDT Office Visit Family Practice [facility] 200 [facility] [place] [address] Kasandra Antunez, 200 [facility] [place] [address] 08/30/2024 2:30 PM EST Office Visit Cardiology, [facility] [address] [facility] [place] [address] Brian Anne MD 132 [facility] [place] [address] Scheduled Procedures Name Priority Associated Diagnoses Date/Ti [...] Documents on File Type Date Recorded Patient Oncology Radiation Physician Expl anation Power of Electromechanical Technologist 04/08/2024 signed on 04/05/2024 POWER OF OXYGEN THERAPIST Advance Directives and Living Will 06/15/2022 ADVANCE DIRECTIVE / LIVING WILL Healthcare Agents on File Name Relationship Healthcare Agent Relationship Communication Rajeev "Reginald" Chronister Adult Child Health C are Oncology Radiation Physician (appointed verbally by patient or by statute hierarchy) Care Teams Retirement Specialist Relationship Specialty Start Date End Date Kasandra Antunez DO [address] [place] [address] PCP - General Family Medicine 10/28/11 documented as of this encounter
[2024-08-09] MEDS: FUROSEMIDE 40 MG TAB PO SCH (13:30)
[2024-08-09] MEDS: FUROSEMIDE 40 MG/4 ML VIAL IV ONE (13:38)
[2024-08-09] MEDS: INFLUENZA VACC TS2024-25(65y+)/PF (IIV3) 0.5mL Syr IM ONE (14:03)
[2024-08-09 14:56] VITALS: BP 103/71; PULSE 90; TEMP 97.3; O2SAT 97
[2024-08-09] MEDS ORDERED: ATORVASTATIN 40 MG TAB PO SCH (21:00)
--- OUTSIDE RECORDS SUMMARY | 2024-08-09 23:26 | External Medical Summary | Summary of Care ---
Author Name Unknown Organization [facility] Address [address] [place] [address] Phone [phone] Care Team Providers Care Furniture Packer Name Role Phone Kasandra Antunez DO Primary Care Provider Reason for Referral * Evaluate & Treat - Unlimited Visits (Within 30 days (routine)) - Authorized Specialty Diagnoses / Procedures Referred By Lala hernandez Referred To Contact HOME CARE / Home Care Diagnoses Generalized weakness Kasandra Antunez DO [address] [place] [address] Referral ID Status Reason Start Date Expiration Date Visits Requested Visits Authorized [id number] Authorized Specialty Services Required 05/10/[phone] Question Answer Referral Priority Within 30 days (routine) Where should this appointment be scheduled? [facility] Comments Documentation of [id number] Encounter Addendum Patient Name: Nancy Gabriel I certify that this patient is under my care and that I, or a nurse practitioner or physician's general surgery physician assistant working with me, had a [id number] encounter that meets the physician [id number] encounter requirements with this patient on: 05/07/24 The encounter with the patient was in whole, or in part, for the following medical condition, which is the primary reason for home health care (List medical condition): Convalescence from acute illness I certify that, based on my findings, the following services are medically necessary home health services: Physical Therapy and OT To provide the following care/treatments: (All hospitalists not following the patient after discharge should complete this section): PT, OT Primary Care Physician to follow home care plan of care after discharge: [place] My clinical findings support the need for the above services because: severe CHF, limited mobility, generalized weakness after hospitalization Further, I certify that my clinical findings support that this patient is homebound (i.e. Absences from home require considerable and taxing effort and are for medical reasons or pentecostal services or infrequently or of short duration when for other reason) because: severe CHF, limited mobility, generalized weakness after hospitalization Physician Signature: Date of Signature: Physician Printed Name: Kasandra Antunez DO Reason for Visit * Reason Onset Date Comments Advice 05/09/2024 Encounter Details Date Type Department Care Team (Late st Contact Info) Description 05/09/[address] [facility] [address] [place] [address] Kasandra Antunez DO [address] [place] [address] Advice Allergies Active Allergy Reactions Criticality Noted Date Comments Codeine Psych complications 12/05/2011 documented as of this encounter (statuses as of 08/08/2024) Medications Medication Sig Dispensed Refills Start Date End Date Status Spacer/Aero-Holdin g Chambers SISI Use with inhaler. 1 Device 0 6 Active Misc. Devices Accu-check guide glucometer kit and lancets E11.9 Use daily as directed 1 Each 12/08/202 0 Active Acetaminophen 325 MG Oral Tablet [...] Nausea or Vomiting. 20 Tablet 11 3 024 Discontinued Allopurinol 100 MG Oral Tablet (Zyloprim)Indicati ons:Gout of big toe TAKE 1 TABLET BY MOUTH ONCE DAILY IN THE MORNING 30 Tablet 5 4 024 Discontinued Levothyroxine Sodium 88 MCG Oral Tablet (Levoxyl) TAKE 1 TABLET BY MOUTH ONCE DAILY IN THE MORNING AT LEAST 30 MINUTES PRIOR TO BREAKFAST OR OTHER MEDS 90 Tablet 1 4 024 Discontinued Clopidogrel Bisulfate 75 MG Oral Tablet (pLAVix)Indication s:Chronic ischemic right MCA stroke,Cardiac pacemaker in situ TAKE 1 TABLET BY MOUTH ONCE DAILY IN THE MORNING 90 Tablet 1 4 024 Discontinued Eliquis 2.5 MG Oral Tablet (Apixaban) TAKE 1 TABLET BY MOUTH IN THE MORNING AND AT BEDTIME 180 Tablet 1 4 024 Discontinued Metoprolol Succinate ER 100 MG Oral Tablet Extended Release 24 Hour (toPROL XL)Indications:Par oxysmal atrial fibrillation (HCC),HTN, goal below 140/90,Tachy-leeanne syndrome (HCC) Take 1 Tablet by mouth in the morning and 1 Tablet before bedtime. 180 Tablet 3 4 024 Discontinued(Re fill) Metoprolol Succinate ER 25 MG Oral Tablet Extended Release 24 Hour (toPROL XL) Take 1 Tablet by mouth in the morning. 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 sales hunter 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 [...] as of this encounter (statuses as of 08/08/2024) Resolved Problems Problem Noted Date Diagnosed Date Resolved Date Prediabetes 10/08/2021 08/05/2024 Acute respiratory failure with hypoxia 10/08/2021 11/03/2021 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 sales hunter 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 [...] as of this encounter (statuses as of 08/08/2024) Immunizations Name Administration Dates Next Due COVID-19 mRNA, LNP-s, No Pre serve, 2-Dose Series (Moderna) 11/19/2021,05/19/2021,04/21/2021 COVID-19, MRNA-LNP, 23-24, P F, 50 MCG/0.5 mL, 12 YRS AND ABOVE, IM (MODERNA-Spikevax) 07/21/2023 Covid-19, Mrna, Lnp-s, Pf, B ivalent, 30 Mcg, IM, 12 yrs and above (Pfizer) 09/29/2022 Pneumococcal Conjugate Vacc, 13 Valent (Prevnar) 08/03/2015 Pneumococcal Conjugate Vacci ne, 20-valent ([id number]) 04/11/2024 Pneumococcal Polysaccharide PPV23 (Pneumovax) 09/09/2013,10/19/2010,08/20/2007 Season [...] No 04/10/2024 Does the household have a [facility] source of income? (Household - for ages [...] encounter Miscellaneous Notes * Telephone Encounter - Ravinder Arevalo MED ASSIST - 05/10/2024 10:15 AM EDT Documents were faxed with a confirmation received. * Telephone Encounter - Kasandra Antunez DO - 05/10/2024 8:54 AM EDT HH PT/OT ordered, please fax with hospital records, and my recent OVN from 05/07/24 Kasandra Antunez DO * Telephone Encounter - Ravinder Arevalo MED ASSIST - 05/09/2024 5:00 PM EDT Please see patient message. Thank you! * Telephone Encounter - Jennyfer Keane LPN - 05/09/2024 2:10 PM EDT Shola calling from [facility]. Asking for orders to be sent to them for resumption of care. Originally was going to do outpatient then they changed their mind. Asking for Hospital notes to be faxed to them Need orders for PT, OT sent to [facility] Fax is [phone] * Telephone Encounter - Isabella Martin OSA - 05/09/2024 2:03 PM EDT Reason for patient's call: Home Health nurse shola Caller was transferred to [facility] at the nurse line. documented in this encounter Plan of Treatment Upcoming Encounters Date Type Department Care Team (Late st Contact Info) Description 08/30/2024 2:30 PM EST Office Visit Cardiology, [facility] [address] [facility] [place] [address] Brian Anne MD 132 [facility] [place] [address] 2024 2:00 PM EST Office Visit Family Practice [facility] [address] [facility] [place] [address] Kasandra Antunez DO [address] [facility] [place] [address] 02/21/2025 3:00 PM EDT Office Visit Neurology [facility] [address] [facility] [place] [address] Chichi Varela CRNP [address] [place] [address] Scheduled Procedures Name Priority Associated Diagnoses Date/Ti me COLONOSCOPY FLEXIBLE PROXIMAL DIAGNOSTIC Recall History of colon polyps Scheduled Referrals Name Type Priority Associated Diagnoses Orde r Schedule HOME HEALTH REFERRAL OP Referral Within 30 days (routine) Generalized weakness Ordered: 05/10/2024 Health Maintenance Due Date Last Done Comments [...] as of this encounter Visit Diagnoses Diagnosis Generalized weakness- Primary Other malaise and fatigue documented in this encounter Advance Directives Documents on File Type Date Recorded 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 Power of Lean Six Sigma Senior Specialist 04/08/2024 Rajeev Ritter" Harvey signed on 04/05/2024 Durable Health Care POA Advance Directives and Living Will 06/15/2022 [place] Advance Health Ca re Directive - signed 06/15/2020 Healthcare Agents on File Name Relationship Healthcare Agent Relationship Communication Rajeev "Reginald" Harvey Adult Child Health C are Agent (per Health Care Power of Lean Six Sigma Senior Specialist document) [email or web address] Care Teams Furniture Packer Relationship Specialty Start Date End Date Kasandra Antunez DO [address] [place] [address] PCP - General Family Medicine 10/28/11 documented as of this encounter
== END 2024-08-09 18:33 | disposition home or self-care (01) ==
LOC: ED 19:20 → 4W 19:20
DX: I50.33 Acute on chronic diastolic (congestive) heart failure; I49.5 Sick sinus syndrome; E11.22 Type 2 diabetes mellitus with diabetic chronic kidney disease; R04.0 Epistaxis; Z79.899 Other long term (current) drug therapy; N18.4 Chronic kidney disease, stage 4 (severe); Z88.5 Allergy status to narcotic agent; R05.1 Acute cough; R79.89 Other specified abnormal findings of blood chemistry; D64.9 Anemia, unspecified; Z79.01 Long term (current) use of anticoagulants; I48.0 Paroxysmal atrial fibrillation; Z79.890 Hormone replacement therapy

== ENCOUNTER 2025-01-26 12:58 | Inpatient (IN) ==
--- OUTSIDE RECORDS SUMMARY | 2025-01-26 13:06 | External Medical Summary | Summary of Care ---
Author Name Unknown Organization [facility] Address [address] [place] [address] Phone [phone] Care Team Providers Care Roll Edge Machine Operator Name Role Phone Kasandra Antunez DO Primary Care Provider Reason for Visit * Reason Onset Date Comments Information 01/08/2025 Encounter Details Date Type Department Care Team (Late st Contact Info) Description 01/08/2025 Telephone Cardiology, [facility] [address] [facility] [place] [address] Ailyn Mcelroy DO [address] [facility] [place] [address] Information Allergies Active Allergy Reactions Criticality Noted Date Comments Codeine Psych complications 12/05/2011 documented as of this encounter (statuses as of 01/08/2025) Medications Spacer/Aero-Holdin g Chambers SISI Use with inhaler. 1 Device 0 01/22/20 16 Active Misc. Devices Accu-check guide glucometer kit and lancets E11.9 Use daily as directed 1 Each 09/29/20 20 Active Acetaminophen 325 MG Oral Tablet Take 1 Tablet by mouth every 6 hours as needed. Active amLODIPine Besylate 2.5 MG Oral Tablet (Norvasc)Indicatio ns:HTN, goal below 140/90 Take by mouth 1 Tablet before bedtime. 90 Tablet 3 12/16/19 22 Active Rollator Ultra-Light Use as directed/needed 1 Each 07/05/20 22 Active Triamcinolone Acetonide 0.5 % External Cream (Aristocort) Apply topically to affected area 2 times a day. To affected area. 60 g 5 10/11/20 22 Active Nitroglycerin 0.4 MG Sublingual Tablet Sublingual (Nitrostat)Indicat ions:NICM (nonischemic cardiomyopathy) ([facility]) Place 1 Tablet under the tongue every 5 minutes as needed for Pain, Chest. 25 Tablet 5 05/08/20 23 Active Additional Information Patient not taking.Reported on 01/02/2025 Ventolin HFA 108 (90 Base) MCG/ACT Inhalation Aerosol SolutionIndication s:Cough INHALE 2 PUFFS IN THE MORNING, 2 PUFFS AT NOON, 2 PUFFS IN THE EVENING AND 2 PUFFS AT BEDTIME 54 g 3 11/02/19 24 Active Docusate Sodium 100 MG Oral Capsule (Colace) 1 Capsule in the morning and 1 Capsule before bedtime. 03/15/20 24 Active Accu-Chek Softclix Lancets Check sugars once daily E11.9 100 Each 3 04/02/20 24 Active Accu-Chek Guide w/Device Kit Use as directed. Check sugars once daily E11.9 1 Kit 04/02/20 24 Active Accu-Chek Guide In Vitro Strip (Glucose Blood) Check sugars once daily E11.9 100 Strip 3 04/02/20 24 Active Allopurinol 100 MG Oral Tablet (Zyloprim)Indicati ons:Gout of big toe TAKE 1 TABLET BY MOUTH ONCE DAILY IN THE MORNING 90 Tablet 3 05/15/20 24 Active Ondansetron 4 MG Oral Tablet Disintegrating (Zofran) Place under the tongue 1 Tablet every 8 hours as needed for Nausea or Vomiting. 20 Tablet 11 05/17/20 24 Active Magnesium Oxide 400 MG Oral Tablet Take 1 Tablet by mouth in the morning. Active Metoprolol Succinate ER 25 MG Oral Tablet Extended Release 24 Hour (toPROL XL) Take 1 Tablet by mouth in the morning and 1 Tablet before bedtime. 180 Tablet 3 06/18/20 24 Active Famotidine 20 MG Oral Tablet (Pepcid) TAKE 1 TABLET BY MOUTH IN THE MORNING AND AT BEDTIME 180 Tablet 2 08/14/20 24 Active Atorvastatin Calcium 40 MG Oral Tablet (Lipitor) TAKE 1 TABLET BY MOUTH AT BEDTIME 90 Tablet 2 08/14/20 24 Active Isosorbide Mononitrate ER 30 MG Oral Tablet Extended Release 24 Hour (Imdur) TAKE 1 TABLET BY MOUTH ONCE DAILY IN THE MORNING 90 Tablet 2 08/14/20 24 Active Memantine HCl 5 MG Oral Tablet (Namenda) Take 1 tablet by mouth in the morning for 7 days, then increase to 1 tablet by mouth twice daily. Okay to wait and add to next set of pill packs. 180 Tablet 1 08/13/20 24 Active Vitron-C 65-125 MG Oral Tablet (Iron-Vitamin C 65-125 mg per tab) Take 1 Tablet by mouth in the morning. 30 Tablet 11 08/15/20 24 Active Furosemide 20 MG Oral Tablet (Lasix) Take 2 Tablets by mouth in the morning. 180 Tablet 3 08/30/20 24 Active Digoxin 125 MCG Oral Tablet (Lanoxin) Take one M,W,F orally. 34 Tablet 11 08/30/20 24 Active Escitalopram Oxalate 20 MG Oral Tablet (Lexapro) TAKE 1 TABLET BY MOUTH ONCE DAILY IN THE MORNING 30 Tablet 5 09/09/20 24 Active Calcitriol 0.5 MCG Oral Capsule (Rocaltrol)Indicat ions:Vitamin D deficiency TAKE 1 CAPSULE BY MOUTH ONCE DAILY IN THE MORNING 30 Capsule 11 09/09/20 24 Active Brexpiprazole 2 MG Oral Tablet (Rexulti) Take 1 Tablet by mouth at bedtime. 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, without long-term current use of insulin 11/18/2024 Type 2 diabetes mellitus wit h hemoglobin A1c goal of less than 7.5% 05/07/2024 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 Anxiety 06/20/2019 documented as of this encounter (statuses as of 01/08/2025) Immunizations Name Administration Dates Next Due COVID-19 mRNA, LNP-s, No Pre serve, 2-Dose Series (Moderna) 11/19/2021,05/19/2021,04/21/2021 COVID-19, MRNA-LNP, PF, 50 M CG/0.5 mL, 12 YRS AND ABOVE, IM (MODERNA-Spikevax) 07/21/2023 Covid-19, Mrna, Lnp-s, Pf, B ivalent, 30 Mcg, IM, 12 yrs and above (Pfizer) 09/29/2022 Pneumococcal Conjugate Vacc, 13 Valent (Prevnar) 08/03/2015 Pneumococcal Conjugate Vacci ne, 20-valent ([id number]) 04/11/2024 Pneumococcal Polysaccharide PPV23 (Pneumovax) 09/09/2013,10/19/2010,08/20/2007 Season [...] ages 0-17 years) Not on file 04/10/2024 Food Insecurity Answer Date Recorded Within the past 12 months, y ou worried that your food would run out before you got the money to buy more. Never true 04/10/20 24 Within the past 12 months, t he food you bought just didn't last and you didn't have money to get more. Never true 04/10/2024 Do you need food for this week? No 04/10/2024 Comments No Sex and Gender Information Value Date Recorded Sex Assigned at Not on file Legal Sex Female 6:02 AM EST Gender Identity Not on file Sexual Orientation Not on file documented as of this encounter Miscellaneous Notes * Telephone Encounter - Samaria Torres LPN - 01/08/2025 10:44 AM EDT Pts sister calling in. States someone called yesterday and wanted family hx. There is no documentation in the chart that anyone called the pt. documented in this encounter Plan of Treatment Upcoming Encounters Date Type Department Care Team (Late st Contact Info) Description 01/09/2025 11:30 AM EDT Cardiac Studies Cardiology, [facility] [address] [facility] [address] 02/19/2025 1:30 PM EDT Office Visit Cardiology, [facility] 132 [facility] [place] [address] Ruby Blandon CRNP [address] [place] [address] 03/24/2025 3:00 PM EDT Office Visit Family Practice [facility] [address] [place], [place] [address] Kasandra Antunez, [address] [place] [address] 03/24/2025 3:50 PM EDT Laboratory Laboratory [facility] [address] [place], [place] [id number] [place], Lab [facility] [address] [place] [address] 06/20/2025 10:30 AM EDT Office Visit Cardiology, [facility] [address] [facility] [place] [address] Riya Aaron CRNP [address] [place] [address] 02/20/2026 10:00 AM EDT Office Visit Neurology [facility] [address] [facility], [place] [address] Kelvin Cleary, DO [address] [facility] [place] [address] Scheduled Procedures Name Priority Associated Diagnoses Date/Ti me COLONOSCOPY FLEXIBLE PROXIMAL DIAGNOSTIC Recall History of colon polyps Health Maintenance Due Date Last Done Comments Zoster Vaccines (2 of 3) 02/01/2016 12/07/2015 Diabetic Eye Exam 11/23/2016 11/23/2015, 05/04/2011 Adult Wellness Visit 06/23/2018 06/23/2017 Diabetic Foot Exam 03/23/2021 03/23/2020, 0 06/10/2019, 02/06/2018, Additional history exists Colonoscopy 05/19/2021 05/19/2016, 05/19/2016 PTH 09/22/2024 09/22/2023, 09/0 05/2022, 01/27/2022, Additional history exists Albumin/Creatinine Ratio 09/25/2024 023, 03/24/2021, 01/22/2016, Additional history exists HbA1c 12/11/2024 06/10/2024, 03/23, 09/22/2023, Additional history exists COVID-19 Vaccine ( season) 2025 07/06/2024, 07/21/2023, 09/29/2022, Additional history exists GFR 03/12/2025 09/12/2024, 07/24, 06/10/2024, Additional history exists Depression Screening 03/26/2025 03/26/2024 Nephrology Referral 03/27/2025 03/27/2024, 2 Phosphate 04/09/2025 04/09/2024, 08/23, 06/30/2022, Additional history exists Hgb 09/12/2025 09/12/2024, 07/24, 04/09/2024, Additional history exists TSH 09/12/2025 09/12/2024, 09/23, 05/08/2023, Additional history exists DTap/Tdap Vaccines (4 - Td or Tdap) 05/28/2033 05/28/2023, 10/14/2011, 10/14/2011, Additional history exists RETIRED - COLONOSCOPY-EVERY 5 YRS AGES 18-100 Discontinued 05/19/2016, 05/19/2016 Pneumococcal Vaccine: 50+ Years Completed 04/11/2024, 08/03/2015, 09/09/2013, Additional history [...] on patient's age to complete this topic Meningitis B Vaccine (Bexsero/Trumemba) Aged Out No longer eligible based on patient's age to complete this topic documented as of this encounter Medical Devices Not on filedocumented as of this encounter Advance Directives Documents on File Type Date Recorded Patient Binder Selector Expl anation Power of Patient Service Technician Pst 04/08/2024 Rajeev "Reginald" Chronsandie signed on 04/05/2024 [facility] POA Advance Directives and Living Will 06/15/2022 [place] Advance Health Ca re Directive - signed 06/15/2020 Healthcare Agents on File Name Relationship Healthcare Agent Relationship Communication Rajeev "Reginald" Harvey Adult Child Health C are Agent (per Health Care Power of Patient Service Technician Pst document) [email or web address] Care Teams Roll Edge Machine Operator Relationship Specialty Start Date End Date Kasandra Antunez DO [address] [place] [address] PCP - General Family Medicine 10/28/11 documented as of this encounter
--- OUTSIDE RECORDS SUMMARY | 2025-01-26 13:06 | External Medical Summary | Summary of Care ---
Author Name Unknown Organization [facility] Address [address] [place] [address] Phone [phone] Care Team Providers Care Fine Grader Name Role Phone Vilma Antunez DO Primary Care Provider Reason for Visit * Reason Comments eRx-Medication Refill Encounter Details Date Type Department Care Team (Late st Contact Info) Description 12/25/2024 Refill Family Practice [facility] [address] [place] [address] Vilma Antunez DO [facility] [address] Allergies Active Allergy Reactions Criticality Noted Date Comments Codeine Psych complications 12/05/2011 documented as of this encounter (statuses as of 12/26/2024) Medications Spacer/Aero-Holdi ng Chambers SISI Use with inhaler. 1 Device 0 01/22/20 16 Active Misc. Devices Accu-check guide glucometer kit and lancets E11.9 Use daily as directed 1 Each 09/29/20 20 Active Acetaminophen 325 MG Oral Tablet Take 1 Tablet by mouth every 6 hours as needed. Active amLODIPine Besylate 2.5 MG Oral Tablet (Norvasc)Indicati ons:HTN, goal below 140/90 Take by mouth 1 Tablet before bedtime. 90 Tablet 3 12/16/19 22 Active Rollator Ultra-Light Use as directed/need ed 1 Each 07/05/20 22 Active Triamcinolone Acetonide 0.5 % External Cream (Aristocort) Apply topically to affected area 2 times a day. To affected area. 60 g 5 10/11/20 22 Active Nitroglycerin 0.4 MG Sublingual Tablet Sublingual (Nitrostat)Indica tions:NICM (nonischemic cardiomyopathy) ([facility]) Place 1 Tablet under the tongue every 5 minutes as needed for Pain, Chest. 25 Tablet 5 05/08/20 23 Active Ventolin HFA 108 (90 Base) MCG/ACT Inhalation Aerosol SolutionIndicatio ns:Cough INHALE 2 PUFFS IN THE MORNING, 2 [...] 24 Active Allopurinol 100 MG Oral Tablet (Zyloprim)Indicat ions:Gout of big toe TAKE 1 TABLET BY [...] 24 Active Calcitriol 0.5 MCG Oral Capsule (Rocaltrol)Indica tions:Vitamin D deficiency TAKE 1 CAPSULE BY MOUTH ONCE DAILY IN THE MORNING 30 Capsule 11 09/09/20 24 Active Brexpiprazole 2 MG Oral Tablet (Rexulti) Take 1 Tablet by mouth at bedtime. 30 Tablet 3 10/21/20 24 Active predniSONE 10 MG Oral Tablet (Deltasone)Indica tions:Pseudogout of hand, right,Pseudogout of wrist, right Take 4 tabs for 3 days, 3 tabs for 3 days, 2 tabs for 3 days 1 tab for 3 days 30 Tablet 11/18/19 25 Active Levothyroxine Sodium 88 MCG Oral Tablet (Levoxyl) TAKE 1 TABLET BY MOUTH ONCE DAILY IN THE MORNING 90 Tablet 1 11/27/19 25 Active Eliquis 2.5 MG Oral Tablet (Apixaban) TAKE 1 TABLET BY MOUTH IN THE MORNING AND AT BEDTIME 180 Tablet 1 12/27/19 25 Active Eliquis 2.5 MG Oral Tablet (Apixaban) TAKE 1 TABLET BY MOUTH IN THE MORNING AND AT BEDTIME 180 Tablet 1 07/12/20 24 2024 Discontinued documented as of this encounter (statuses as of 12/26/2024) Active Problems Problem Noted Date Diagnosed Date Moderate dementia with psychotic disturbance Type 2 diabetes mellitus wit h stage 4 chronic kidney disease, without long-term current use of insulin 11/18/2024 Type 2 diabetes mellitus wit h hemoglobin A1c goal of less than 7.5% 05/07/2024 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 Chronic heart failure with r educed ejection fraction and diastolic dysfunction 01/01/2024 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 [...] as of this encounter (statuses as of 12/26/2024) Resolved Problems Problem Noted Date Diagnosed Date Resolved Date Type 2 diabetes mellitus wit h stage 4 chronic kidney disease, without long-term current use of insulin 11/18/2024 12/04/2024 Aspiration pneumonia of righ t lower lobe due to vomit 11/26/2021 11/25/2024 Prediabetes 10/08/2021 08/05/2024 Acute respiratory failure with hypoxia 10/08/2021 11/03/2021 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 [...] as of this encounter (statuses as of 12/26/2024) Immunizations Name Administration Dates Next Due COVID-19 mRNA, LNP-s, No Pre serve, 2-Dose Series (Moderna) 11/19/2021,05/19/2021,04/21/2021 COVID-19, MRNA-LNP, PF, 50 M CG/0.5 mL, 12 YRS AND ABOVE, IM (MODERNA-Spikevax) 07/21/2023 Covid-19, Mrna, Lnp-s, Pf, B ivalent, 30 Mcg, IM, 12 yrs and above (Pfizer) 09/29/2022 Pneumococcal Conjugate Vacc, 13 Valent (Prevnar) 08/03/2015 Pneumococcal Conjugate Vacci ne, 20-valent ([id number]) 04/11/2024 Pneumococcal Polysaccharide PPV23 (Pneumovax) 09/09/2013,10/19/2010,08/20/2007 Season [...] Miscellaneous Notes * Telephone Encounter - Jessika Monk [facility] - 12/26/2024 2:05 PM ESTSigned Prescriptions: Disp Refills Eliquis 2.5 MG Oral Tablet (Apixaban) 180 Ta*1 Sig: TAKE 1 TABLET BY MOUTH IN THE MORNING AND AT BEDTIMEAuthorizing Provider: VILMA ANTUNEZ User: JESSIKA MONK documented in this encounter Plan of Treatment Upcoming Encounters Date Type Department Care Team (Late st Contact Info) Description 01/02/2025 3:30 PM EDT Office Visit Cardiology, [facility] 132 [place] [address] Riya Aaron CRNP [address] [place] [address] 02/19/2025 1:30 PM EDT [facility] [place] [address] Ruby Blandon CRNP [address] [place] [address] 03/24/2025 3:00 PM EDT Office Visit Family Practice [facility] [address] [place], [place] [address] Vilma Antunez, DO [address] [place], [place] [address] 03/24/2025 3:50 PM EDT Laboratory Laboratory [facility] [place] [address] [place] [phone] David Blount [facility] [address] [facility] [place] [address] 02/20/2026 10:00 AM EDT Office [facility] [place] [address] [place] [address] Kelvin Cleary, DO [address] [place] [address] Scheduled Procedures Name Priority Associated Diagnoses Date/Ti me COLONOSCOPY FLEXIBLE PROXIMAL DIAGNOSTIC Recall History of colon polyps Health Maintenance Due Date Last Done Comments Zoster Vaccines (2 of 3) 02/01/2016 12/07/2015 Diabetic Eye Exam 11/23/2016 11/23/2015, 05/04/2011 Adult Wellness Visit 06/23/2018 06/23/2017 Diabetic Foot Exam 03/23/2021 03/23/2020, 0 06/10/2019, 02/06/2018, Additional history exists Colonoscopy 05/19/2021 05/19/2016, 05/19/2016 PTH 09/22/2024 09/22/2023, 0905/2022, 01/27/2022, Additional history [...] Documents on File Type Date Recorded Patient Bass Mechanism Maker Expl anation Power of Supervisor Vendor Quality 04/08/2024 Rajeev "Reginald" Chronister signed on 04/05/2024 [facility] POA Advance Directives and Living Will 06/15/2022 [place] [facility] Health Ca re Directive - signed 06/15/2020 Healthcare Agents on File Name Relationship Healthcare Agent Relationship Communication Rajeev "Reginald" Chronister Adult Child Health C are Agent (per Health Care Power of Supervisor Vendor Quality document) [email or web address] Care Teams Fine Grader Relationship Specialty Start Date End Date Vilma Antunez DO [address] [place] [address] PCP - General Family Medicine 10/28/11 documented as of this encounter
--- OUTSIDE RECORDS SUMMARY | 2025-01-26 13:06 | External Medical Summary | Summary of Care ---
Author Name Unknown Organization [facility] Address [address] [place] [place] [address] Phone [phone] Care Team Providers Care Glass Novelty Maker Name Role Phone Kasandra Antunez DO Primary Care Provider Reason for Visit * Reason Comments Acute Hand Pain Arm Pain Encounter Details Date Type Department Care Team (Late st Contact Info) Description 01/21/2025 9:40 AM EDT Office Visit Family Practice [facility] [address] [facility] [place] [address] Anna Head PA-C [address] [facility] [place] [address] Pseudogout*; Type 2 diabetes mellitus with stage 4 chronic kidney disease, without long-term current use of insulin (HCC); 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); Idiopathic gout of multiple sites, unspecified chronicity Allergies Active Allergy Reactions Criticality Noted Date Comments Codeine Psych complications 12/05/2011 documented as of this encounter (statuses as of 01/21/2025) Medications Spacer/Aero-Holdin g Chambers SISI Use with [...] 12/16/19 22 Active Rollator Ultra-Light Use as directed/neede d 1 Each 07/05/20 22 Active Triamcinolone Acetonide [...] MORNING 30 Capsule 11 09/09/20 24 Active Levothyroxine Sodium 88 MCG Oral Tablet (Levoxyl) TAKE 1 TABLET BY MOUTH ONCE DAILY IN THE MORNING 90 Tablet 1 11/27/19 25 Active Eliquis 2.5 MG Oral Tablet (Apixaban) TAKE 1 TABLET BY MOUTH IN THE MORNING AND AT BEDTIME 180 Tablet 1 12/27/19 25 Active Rexulti 1 MG Oral Tablet Take 1 Tablet by mouth at bedtime. 12/19/19 25 Active predniSONE 20 MG Oral Tablet (Deltasone)Indicat ions:Pseudogout Take 2 Tablets by mouth in the morning for 5 days. 10 Tablet 01/22/20 25 025 Active traMADol HCl 50 MG Oral Tablet (Ultram) Take 1 Tablet by mouth every 8 hours as needed for Pain, Moderate. 10 Tablet 01/22/20 25 Active Brexpiprazole 2 MG Oral Tablet (Rexulti) Take 1 Tablet by mouth at bedtime. 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 [...] as of this encounter (statuses as of 01/21/2025) Resolved Problems Problem Noted Date Diagnosed Date Resolved Date Type 2 diabetes mellitus wit h stage 4 chronic kidney disease, without long-term current use of insulin 11/18/2024 12/04/2024 Aspiration pneumonia of righ t lower lobe due to vomit 11/26/2021 11/25/2024 Prediabetes 10/08/2021 08/05/2024 Acute respiratory failure with hypoxia 10/08/2021 11/03/2021 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 fisher line 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 [...] as of this encounter (statuses as of 01/21/2025) Immunizations Name Administration Dates Next Due COVID-19 mRNA, LNP-s, No Pre serve, 2-Dose Series (Moderna) 11/19/2021,05/19/2021,04/21/2021 COVID-19, MRNA-LNP, PF, 50 M CG/0.5 mL, 12 YRS AND ABOVE, IM (MODERNA-Spikevax) 07/21/2023 Covid-19, Mrna, Lnp-s, Pf, B ivalent, 30 Mcg, IM, 12 yrs and above (Pfizer) 09/29/2022 Pneumococcal Conjugate Vacc, 13 Valent (Prevnar) 08/03/2015 Pneumococcal Conjugate Vacci ne, 20-valent ([id number]) 04/11/2024 Pneumococcal Polysaccharide PPV23 (Pneumovax) 09/09/2013,10/19/2010,08/20/2007 Season [...] Sign Reading Time Taken Comments Blood Pressure 110/60 01/21/2025 9:39 AM EDT Pulse 64 01/21/2025 9:39 AM EDT Temperature 36.2 °C (97.2 °F) 01/21/2025 9:39 AM ED T Respiratory Rate 18 01/21/2025 9:39 AM EDT Oxygen Saturation 99% 01/21/2025 9:39 AM EDT Inhaled Oxygen Concentration - - Weight 66.5 kg (146 lb 8 oz) 01/21/2025 9:39 AM EDT Height - - Body Mass Index 27.68 11/25/2024 12:53 PM EST documented in this encounter Progress Notes * Anna Head PA-C - 01/21/2025 10:10 AM EDT Images from the original note were not included. Subjective Nancy Gabriel is a 79 year old female that presents for Acute, Hand Pain, and Arm Pain History of Present Illness Nancy Gabriel is a 79 year old female with pseudogout who presents with right hand and arm pain. She is accompanied by her caregiver. She has been experiencing pain in her right hand and arm since Monday, with the pain being recurrent and similar to episodes she had a couple of months ago. The pain is intermittent, with no specificinjury preceding its onset, and is localized from the elbow down to the hand. She finds it difficult to perform tasks such as pulling up her pants due to the pain. The pain level is reported as an eight on a scale of one to ten, indicating significant discomfort that interferes with her daily activities. She has tried extra strength Tylenol without relief. There is a history of pseudogout in the hand, previously diagnosed by another physician. She reports some swelling in the past, although it is not as pronounced today, and a sensation of warmth in the affected area. Cold applications such as ice packs provide relief. In the past, she has been treated with prednisone, which provided some relief. She is currently on allopurinol for gout and has a known allergy to codeine. She has a history of diabetes, with her last A1c recorded in May of the previous year at 7.1. She is currently on a regimen that includes amlodipine for blood pressure, a cholesterol medication, calcitriol, digoxin, a stool softener, and Eliquis. Regular blood sugar monitoring is not being conducted. No recent injury to the hand or arm. Reports difficulty with hand movements and significant pain. No current swelling noted, but reports past episodes of swelling. No numbness or tingling reported. Objective BP 110/60 | Pulse 64 | Temp 97.2 °F (36.2 °C) (Tympanic) | Resp 18 | Wt 146 lb 8 oz (66.5 kg) | SpO2 99% | BMI 27.68 kg/m² | BSA 1.69 m² BP Readings from Last 3 Encounters: 01/21/25 110/60 01/02/25 148/78 11/25/24 104/76 Wt Readings from Last 3 Encounters: 01/21/25 146 lb 8 oz (66.5 kg) 01/02/25 147 lb 8 oz (66.9 kg) 11/25/24 141 lb (64 kg) Physical Exam EXTREMITIES: Right hand and arm with edema. Right hand with limited range of motion. Left hand withnormal range of motion. General: alert, healthy, no distress, well nourished, well developed, comfortable, and cooperative Head: Normocephalic, No masses, lesions, tenderness or abnormalities Eye Exam: PERRLA, extraocular movements intact, conjunctiva are pink and non- injected, sclera clear Lungs: chest symmetric with normal AP diameter, no chest deformities noted, normal respiratory rateand rhythm, diaphragmatic excursion normal Extremities: less than 2 second capillary refill, no joint deformities, effusion, or inflammation, no clubbing, no cyanosis, mild edema and warmth to dorsal surface of right hand Results LABS A1c: 7.1 (05/2024) Glucose: 152 (08/2024) RADIOLOGY Hand X-ray: Chondrocalcinosis indicative of pseudogout (10/2024) Results reviewed : Hemoglobin A1C Assessment and Plan Assessment & Plan Pseudogout Recurrent episodes of pain and swelling in the right hand and arm, consistent with pseudogout. Current episode since Monday, with pain rated as 8/10, affecting daily activities. No recent injury reported. Concerns about pain management due to potential side effects of medications in geriatric patients, including lightheadedness and falls. Being on Eliquis complicates pain management options. Prednisone is considered beneficial for reducing inflammation and pain, with common side effects including upset stomach and insomnia. Tramadol is considered for moderate pain, with caution due to potentia l side effects such as lightheadedness. - Prescribe a 5-day course of prednisone, starting with 40 mg once daily, to reduce inflammation and pain. Take earlier in the day with food to minimize side effects. - Prescribe tramadol for moderate pain, with caution due to potential side effects such as lightheadedness. Ensure supervision to prevent falls. - Advise use of ice compresses to alleviate swelling and pain. - Ensure adequate hydration. - Monitor for side effects of medications, especially in the context of her being on Eliquis. Diabetes Mellitus Diabetes management requires attention as the last A1c was 7.1% in May of last year, and a recent glucose level was 152 mg/dL in August. An A1c test is due to assess current glycemic control. - Order A1c test to evaluate current blood sugar control. Pseudogout (Primary) - predniSONE 20 MG Oral Tablet (Deltasone); Take 2 Tablets by mouth in the morning for 5 days. Type 2 diabetes mellitus with stage 4 chronic kidney disease, without long-term current use of insulin ([facility]) Other orders - traMADol HCl 50 MG Oral Tablet (Ultram); Take 1 Tablet by mouth every 8 hours as needed for Pain,Moderate. Wrap-Up I spent a total of 20-29 minutes (exact time 26 mins) on the date of service in preparation, delivery, and documentation of the care provided to Nancy Gabriel excluding any time spent in the performance of separately billed services. Text in this note was generated using an ambient documentation service. I discussed the use of a device to record and summarize our discussion today. All persons present during the encounter consented to its use. documented in this encounter Nursing Notes * Lizzeth Gonzalez NA - 01/21/2025 9:33 AM EDT Nancy Gabriel presents with complaints of right hand and arm pain that started On Monday. Denies any falls or trauma/injury to the area. Notes pain with movement such as pulling her pants up. States her pain is 8/10 at this time and describes it as an ache. Reports taking a extra strength Tylenol for the pain with no relief. documented in this encounter Plan of Treatment Upcoming Encounters Date Type Department Care Team (Late st Contact Info) Description 02/19/2025 1:30 PM EDT Office Visit Cardiology, [facility] [address] [place] [phone] Ruby Blandon CRNP [address] [place] [address] 03/24/2025 3:00 PM EDT Office Visit Family Practice [facility] [address] [place] [address] Kasandra Antunez, [address] [facility] [place], [place] [address] 03/24/2025 3:50 PM EDT Laboratory Laboratory [facility] [address] [place] [id number] [facility] Lab [facility] [address] [place] [address] 06/20/2025 10:30 AM EDT Office Visit Cardiology [facility] [address] [place] [phone] Riya Aaron CRNP [address] [place] [address] 02/20/2026 10:00 AM EDT Office Visit Neurology [facility] [place] [address] [place] [address] Kelvin Cleary, DO [address] [facility] [place] [address] Scheduled Procedures Name Priority Associated Diagnoses Date/Ti [...] as of this encounter Visit Diagnoses Diagnosis Pseudogout- Primary 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, without long-term current use of insulin (HCC) 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, unspecified chronicity documented in this encounter Advance Directives Documents on File Type Date Recorded Patient Services Advisor Expl anation Power of Monkey Breeder 04/08/2024 Rajeev "Reginald" Chronister signed on 04/05/2024 [facility] POA Advance Directives and Living Will 06/15/2022 [place] [facility] Ca re Directive - signed 06/15/2020 Healthcare Agents on File Name Relationship Healthcare Agent Relationship Communication Rajeev "Reginald" Chronister Adult Child Health C are Agent (per Health Care Power of Monkey Breeder document) [email or web address] Care Teams Glass Novelty Maker Relationship Specialty Start Date End Date Kasandra Antunez DO [address] [place] [address] PCP - General Family Medicine 10/28/11 documented as of this encounter
--- OUTSIDE RECORDS SUMMARY | 2025-01-26 13:06 | External Medical Summary | Summary of Care ---
Author Name Unknown Organization [facility] Address [address] [place] [address] Phone [phone] Care Team Providers Care Nuclear Weapons Custodian Name Role Phone Kasandra Antunez DO Primary Care Provider Reason for Visit * Reason Comments Follow Up 4 month follow up. S OB only with over exertion- uses inhaler when needed. Denies chest pain, palpitations, edema and dizziness. Encounter Details Date Type Department Care Team (Late st Contact Info) Description 01/02/2025 3:30 PM EDT Office Visit Cardiology, [facility] [address] [place], [place] [id number] Riya Aaron CRNP [address] [place] [address] Tachy-leeanne syndrome (HCC)*; NICM (nonischemic cardiomyopathy) (HCC); HFrEF (heart failure with reduced ejection fraction) (HCC); Cardiac pacemaker in situ; Paroxysmal atrial fibrillation (HCC); HTN, goal below 140/90 Allergies Active Allergy Reactions Criticality Noted Date Comments Codeine Psych complications 12/05/2011 documented as of this encounter (statuses as of 01/05/2025) Medications Spacer/Aero-Holdin g Chambers SISI Use with [...] BEDTIME 180 Tablet 1 12/27/19 25 Active predniSONE 10 MG Oral Tablet (Deltasone)Indicat ions:Pseudogout of hand, right,Pseudogout of wrist, right Take 4 tabs for 3 days, 3 tabs for 3 days, 2 tabs for 3 days 1 tab for 3 days 30 Tablet 11/18/19 25 025 Discontin ued(End of Procedure ) documented as of this encounter (statuses as of 01/05/2025) Active Problems Problem Noted Date Diagnosed Date Moderate dementia with psychotic disturbance Type 2 diabetes mellitus wit h stage 4 chronic kidney disease, without long-term current use of insulin 11/18/2024 Type 2 diabetes mellitus wit h hemoglobin A1c goal of less than 7.5% 05/07/2024 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 Chronic heart failure with r educed ejection fraction and diastolic dysfunction 01/01/2024 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 veterinary medicine doctor 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 [...] as of this encounter (statuses as of 01/05/2025) Resolved Problems Problem Noted Date Diagnosed Date Resolved Date Type 2 diabetes mellitus wit h stage 4 chronic kidney disease, without long-term current use of insulin 11/18/2024 12/04/2024 Aspiration pneumonia of righ t lower lobe due to vomit 11/26/2021 11/25/2024 Prediabetes 10/08/2021 08/05/2024 Acute respiratory failure with hypoxia 10/08/2021 11/03/2021 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 veterinary medicine doctor 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 [...] as of this encounter (statuses as of 01/05/2025) Immunizations Name Administration Dates Next Due COVID-19 mRNA, LNP-s, No Pre serve, 2-Dose Series (Moderna) 11/19/2021,05/19/2021,04/21/2021 COVID-19, MRNA-LNP, PF, 50 M CG/0.5 mL, 12 YRS AND ABOVE, IM (MODERNA-Spikevax) 07/21/2023 Covid-19, Mrna, Lnp-s, Pf, B ivalent, 30 Mcg, IM, 12 yrs and above (Pfizer) 09/29/2022 Pneumococcal Conjugate Vacc, 13 Valent (Prevnar) 08/03/2015 Pneumococcal Conjugate Vacci ne, 20-valent ([id number]) 04/11/2024 Pneumococcal Polysaccharide PPV23 (Pneumovax) 09/09/2013,10/19/2010,08/20/2007 Season [...] Sign Reading Time Taken Comments Blood Pressure 148/78 01/02/2025 3:17 PM EDT Pulse 64 01/02/2025 3:17 PM EDT Temperature - - Respiratory Rate 16 01/02/2025 3:17 PM EDT Oxygen Saturation - - Inhaled Oxygen Concentration - - Weight 66.9 kg (147 lb 8 oz) 01/02/2025 3:17 PM EDT Height - - Body Mass Index 27.87 11/25/2024 12:53 PM EST documented in this encounter Patient Instructions * Patient Instructions* Riya Aaron CRNP - 01/02/2025 4:01 PM EDT -Please record your daily weights first thing in the morning after using the bathroom. -Limit sodium intake to no more than 2,000 mg/day. -Put on your compression stockings first thing in the morning and remove at night. Repeat daily. -Elevate your legs throughout the day. Symptoms to report: - Increase in shortness of breath, increased swelling of your feet, legs, ankles or stomach, chest pain, dry-hacking cough, feeling more tired, or harder to breath when lying down - Weight gain of 3 lbs in 24 hours or 5 lbs in 1 week documented in this encounter Nursing Notes * Michi Spann LPN - 01/02/2025 3:11 PM EDT Patient identified by full name and date of Chief Complaint Patient presents with Follow Up 4 month follow up. SOB only with over exertion- uses inhaler when needed. Denies chest pain, palpitations, edema and dizziness. Examination Room: 1 Name: Nancy Gabriel Date of : (1945). Reason for Visit: Follow up Interim Hospitalization(s): [facility] 10/20/24- UTI Problems/Concerns: See chief complaint Chest Pain/SOB: See chief complaint [facility] Discussed: Not applicable [...] Description 02/19/2025 1:30 PM EDT Office Visit Cardiology [facility] [address] [facility] [place] [address] Ruby Blandon CRNP [address] [place] [address] 03/24/2025 3:00 PM EDT Office Visit Family Practice [facility] [place] [address] [place] [place] [address] Kasandra Antunez DO [address] [place] [place] [address] 03/24/2025 3:50 PM EDT Laboratory Laboratory [facility] [place] [address] [place] [address] [phone] David Blount [address] [place] [address] [address] 06/20/2025 10:30 AM EDT Office Visit Cardiology [facility] [address] [place] [address] Riya Aaron CRNP [address] [place] [place] [address] 02/20/2026 10:00 AM EDT Office Visit [facility] [address] [facility] [address] Kelvin Cleary, DO [address] [facility] [place] [address] Scheduled Procedures Name Priority Associated Diagnoses Date/Ti [...] as of this encounter Visit Diagnoses Diagnosis Tachy-leeanne syndrome (HCC)- Primary Sinoatrial node dysfunction NICM (nonischemic cardiomyopathy) (HCC) Other primary cardiomyopathies HFrEF (heart failure with reduced ejection fraction) (HCC) Cardiac pacemaker in situ Paroxysmal atrial fibrillation (HCC) Atrial fibrillation HTN, goal below 140/90 Unspecified essential hypertension documented in this encounter Advance Directives Documents on File Type Date Recorded Patient Neon Pumper Expl anation Power of Computed Tomography Technician 04/08/2024 Rajeev Ritter" Chronister signed on 04/05/2024 Durable Health Care POA Advance Directives and Living Will 06/15/2022 [place] Advance Health Ca re Directive - signed 06/15/2020 Healthcare Agents on File Name Relationship Healthcare Agent Relationship Communication Rajeev Gabriel (Bob) Adult Child Health C are Agent (per Health Care Power of Computed Tomography Technician document) [email or web address] Care Teams Nuclear Weapons Custodian Relationship Specialty Start Date End Date Kasandra Antunez DO [facility] [place] [address] PCP - General Family Medicine 10/28/11 documented as of this encounter
--- OUTSIDE RECORDS SUMMARY | 2025-01-26 13:06 | External Medical Summary | Summary of Care ---
Author Name Unknown Organization [facility] Address [address] [place] [address] Phone [phone] Care Team Providers Care Third Rail Installer Name Role Phone Kasandra Antunez DO Primary Care Provider Reason for Visit * Reason Onset Date Comments Advice 09/17/2024 Encounter Details Date Type Department Care Team (Late st Contact Info) Description 09/17/2024 Telephone Neurology [facility] [address] [place] [address] Services, Scheduling [address] [place] [address] Advice Allergies Active Allergy Reactions Criticality Noted Date Comments Codeine Psych complications 12/05/2011 documented as of this encounter (statuses as of 12/18/2024) Medications Spacer/Aero-Holdi ng Chambers SISI Use with [...] bedtime. 180 Tablet 3 06/18/20 24 Active Eliquis 2.5 MG Oral Tablet (Apixaban) TAKE 1 TABLET BY MOUTH IN THE MORNING AND AT BEDTIME 180 Tablet 1 07/12/20 24 Active Famotidine 20 MG Oral Tablet (Pepcid) TAKE 1 TABLET BY MOUTH IN THE MORNING AND AT BEDTIME 180 Tablet 2 10/23/20 24 Active Atorvastatin Calcium 40 MG Oral [...] in the morning. 180 Tablet 3 08/30/20 Active Digoxin 125 MCG Oral Tablet (Lanoxin) [...] BREAKFAST OR OTHER MEDS 90 Tablet 1 06/14/20 24 2024 Discontinued Brexpiprazole 0.5 MG Oral Tablet (Rexulti) Take 1 Tablet by mouth at bedtime. 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 Chronic heart failure with r educed ejection fraction and diastolic dysfunction 01/01/2024 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 [...] as of this encounter (statuses as of 12/18/2024) Resolved Problems Problem Noted Date Diagnosed Date Resolved Date Type 2 diabetes mellitus wit h stage 4 chronic kidney disease, without long-term current use of insulin 11/18/2024 12/04/2024 Aspiration pneumonia of righ t lower lobe due to vomit 11/26/2021 11/25/2024 Prediabetes 10/08/2021 08/05/2024 Acute respiratory failure with hypoxia 10/08/2021 11/03/2021 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 [...] as of this encounter (statuses as of 12/18/2024) Immunizations Name Administration Dates Next Due COVID-19 mRNA, LNP-s, No Pre serve, 2-Dose Series (Moderna) 11/19/2021,05/19/2021,04/21/2021 COVID-19, MRNA-LNP, PF, 50 M CG/0.5 mL, 12 YRS AND ABOVE, IM (MODERNA-Spikevax) 07/21/2023 Covid-19, Mrna, Lnp-s, Pf, B ivalent, 30 Mcg, IM, 12 yrs and above (Pfizer) 09/29/2022 Pneumococcal Conjugate Vacc, 13 Valent (Prevnar) 08/03/2015 Pneumococcal Conjugate Vacci ne, 20-valent ([id number]) 04/11/2024 Pneumococcal Polysaccharide PPV23 (Pneumovax) 09/09/2013,10/19/2010,08/20/2007 Season [...] encounter Miscellaneous Notes * Telephone Encounter - Chichi Dexter CRNP - 10/25/2024 2:44 PM EST Have they seen any improvement in her agitation and hallucinations since she started treatment for the UTI? If so, then we can probably stay with the 1 mg of Brexpiprazole and do not need to increase to the 2 mg dosing. * Telephone Encounter - Chichi Dexter CRNP - 10/22/2024 10:52 AM EST The family has been sending me in multiple messages that her psychotic symptoms were not controlledon the 0.5 mg dose. I increased the dose to 1 mg on 10/14/2024. Family called back in on 10/17/2024 saying that agitation did not improve after taking 1 mg dose for 2 nights. I received another message from family on 10/18 saying that patient's son gave her 3 pills the night prior and that she slept well. I advised family to NOT make medication adjustments like this without guidance by a provider. I send in an prescription for 2 mg tablets on 10/21/2024 since family stated that 1 mg tablets werenot helping and they continued to call in requesting an increase in the dose. I'm not sure how the family is dispensing the Brexpiprazole?? Were they taking it out of the packages to give her two of the 0.5 mg tablets to equal the higher 1 mg dose?? I wasn't aware that she was getting it in the pre-packaged pills packs. What dose are they currently giving her and how are they dispensing it?? * Telephone Encounter - Tracy Kelly PHARM Tech - 10/21/2024 12:46 PM EST Pharmacy calling with the following question regarding pt's Brexpiprazole They advised pt is getting pre packaged compliance packaging. And currently is getting 0.5 mg in the packaging But do not feel confident that the family will be able to give the correct dosing. Pharmacy is not clear how the 1 mg dosing was completed by the family. Pt gets a one month supply in pre packaged envelopes and are not sure the family will be able to doa bottle fill and pull out the 0.5 mg dosing and replace with the 2 mg dosing correctly. Pt never received the increase to the 1 mg dosing as the increase was happening too fast. Asking if would be agreeable to waiting for the increased dose of 2 mg to be supplied at the next fill on 11/13/24 Please review. Thank You, Tracy Kelly [facility] 10/21/2024, 12:50 PM * Telephone Encounter - Chichi Dexter CRNP - 10/21/2024 9:51 AM EST Increase Rexulti to 2 mg at bedtime. Please do not give her more medication than is prescribed as this can cause serious side effects. I sent the increased dose prescription to her pharmacy. * Telephone Encounter - Chichi Dexter CRNP - 10/17/2024 12:09 PM EST We need to slowly wean her up on this medication. She needs to take the increased 1 mg dose for at least a week before we consider increasing up to 2 mg daily. She should see how she does over the next 4-5 days. If no improvement then we can try increasing the dose. They will need to call in and let me know. If her symptoms become severe, then they should take her to the ER for evaluation. * Telephone Encounter - Mary Anne Culver OSA - 10/17/2024 8:22 AM EST Pt sister calling to inform that she did increase the medication, and it helped for two nights but now she notes sister is "right back to square one" notes that she is saying that she just wants to go home and she has put her coats glove on to leave notes it was going on all day yesterday and is still going on into this morning and normally she is able to snap pot of it, but she hasn't yet. Please advise on what she should do. Thank you * Telephone Encounter - Mary Anne Culver OSA - 09/18/2024 2:37 PM EST Pt sister calling back informed of Chichi dexter message, and that a nurse will be able to call back to further discuss and answer any questions she might had, as she has some additional questions regarding the Rexulti thank you * Telephone Encounter - Chichi Dexter CRNP - 09/18/2024 2:04 PM EST Can add low dose antipsychotic. Will see if Rexulti is covered by insurance. Patient's EKG done earlier this month shows that her QT interval is a little prolonged, so need to avoid antipsychotics that will worsen this. Rexulti is one of these medications that will not prolong the QT interval. I sent the prescription to [facility]. Her lab work shows that her kidney functions are more decreased, even from her baseline, so it is important that they encourage her to drink water. Her calcium level is also high. I would recommend they further discuss this with her PCP to see if she would recommend repeat lab work and possibly a referral for her to see a machine bander and cellophaner helper (kidney specialist). * Telephone Encounter - Ruby Isaacs OSA - 09/17/2024 4:17 PM EST Neuroscience Phone Call Form- Requested Information from caller: Who is calling (not pt) name: Millie Bueno relationship: Sister Provider patient is established with: [facility] What is the concern or issue they are having: Pt's sister is calling in stating that the pt is getting worse at night she is hallucinating at night, she is not getting any better that night she was up all night saying she saw cats and that they were throwing up in her room. They also feel that the medication that she was put on is making her worse, the medication Memantine. They aren't sure what else they can do for her. She is calling in asking for some kind of advice. How long has the issue been going on: n/a Any additional details to add: no Phone number for nurse to call back: [phone] Are forms needed? no Medication Refill? no Verify Pharmacy information is correct. Form to be used for established patients only (not new patients) Clinic has 24-48 hours to respond to caller. If caller is calling back before timeframe with any changes in condition/issues reported, update TEand re-route to appropriate pool If caller is calling back before timeframe- update TE- no need to re-route [facility] [place] Neurology Pool- [facility] [place] Neuro Scrap Stripper Hand- [id number] (All messages get sent to the [facility]) Neurology Pool Numbers- [place] [facility] patients - follow normal process Ops [facility] Neurology ([place])- [id number] Ops req [place] [facility] ([facility] and [facility] clinics Only)- [id number] Neurosurgery Pool Numbers- [place] patients- follow normal process Ops req Neurosurgery [facility] ([place])- [id number] Ops req Neurosurgery [facility] ([facility] Only) [id number] documented in this encounter Plan of Treatment Upcoming Encounters Date Type Department Care Team (Late st Contact Info) Description 01/02/2025 3:30 PM EDT Office Visit Cardiology, [facility] [address] [facility] [place] [address] Riya Aaron CRNP [address] [place] [address] 02/19/2025 1:30 PM EDT Office Visit Cardiology, [facility] [address] [facility] [place] [address] Ruby Blandon CRNP [address] [facility] [place] [address] 03/24/2025 3:00 PM EDT Office Visit Family Practice [facility] [address] [place] [address] Kasandra Antunez, DO [address] [facility] [facility] [place] [address] 03/24/2025 3:50 PM EDT Laboratory Laboratory [facility] [address] [place] [id number] [place], Lab [facility] [address] [facility] [place] [address] 02/20/2026 10:00 AM EDT Office Visit Neurology [facility] [address] [place] [address] Kelvin Cleary, DO [address] [place] [address] Scheduled Procedures Name Priority Associated Diagnoses Date/Ti [...] 03/23, 09/22/2023, Additional history exists COVID-19 Vaccine (2023- season) 2025 07/06/2024, 07/21/2023, 09/29/2022, Additional history [...] Documents on File Type Date Recorded 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 Power of Production Control Manager 04/08/2024 Rajeev Ritter" Chronsandie signed on 04/05/2024 Durable Health Care POA Advance Directives and Living Will 06/15/2022 [place] Advance Health Ca re Directive - signed 06/15/2020 Healthcare Agents on File Name Relationship Healthcare Agent Relationship Communication Rajeev Gabriel (Bob) Adult Child Health C are Agent (per Health Care Power of Production Control Manager document) [email or web address] Care Teams Third Rail Installer Relationship Specialty Start Date End Date Kasandra Antunez DO [address] [place] [address] PCP - General Family Medicine 10/28/11 documented as of this encounter
--- OUTSIDE RECORDS SUMMARY | 2025-01-26 13:06 | External Medical Summary | Summary of Care ---
Author Name Unknown Organization [facility] Address [address] [place] [address] Phone [phone] Care Team Providers Care Tool Liaison Name Role Phone Kasandra Antunez DO Primary Care Provider Reason for Visit * Reason Onset Date Comments Health Maintenance 12/03/2024 Encounter Details Date Type Department Care Team (Late st Contact Info) Description 12/03/[address] [facility] [address] [place] [address] Kasandra Antunez DO [address] [facility] [place] [address] Health Maintenance Allergies Active Allergy Reactions Criticality Noted Date Comments Codeine Psych complications 12/05/2011 documented as of this encounter (statuses as of 12/03/2024) Medications Spacer/Aero-Holdin g Chambers SISI Use with [...] 3 2 Active Rollator Ultra-Light Use as directed/neede d 1 Each 2 Active Triamcinolone Acetonide 0.5 % External Cream (Aristocort) Apply topically to affected area 2 times a day. To affected area. 60 g 5 2 Active Nitroglycerin 0.4 MG Sublingual Tablet Sublingual (Nitrostat)Indicat ions:NICM (nonischemic cardiomyopathy) (HCC) Place 1 Tablet under the tongue every 5 minutes as needed for Pain, Chest. 25 Tablet 5 3 Active Ventolin HFA 108 (90 Base) MCG/ACT Inhalation Aerosol SolutionIndication s:Cough INHALE 2 PUFFS IN THE MORNING, 2 PUFFS AT NOON, 2 PUFFS IN THE EVENING AND 2 PUFFS AT BEDTIME 54 g 3 4 Active Docusate Sodium 100 MG Oral [...] daily E11.9 100 Strip 3 4 Active Allopurinol 100 MG Oral [...] before bedtime. 180 Tablet 3 4 Active Eliquis 2.5 MG Oral Tablet (Apixaban) TAKE 1 TABLET BY MOUTH IN THE MORNING AND AT BEDTIME 180 Tablet 1 4 Active Famotidine 20 MG Oral Tablet (Pepcid) TAKE 1 TABLET BY MOUTH IN THE MORNING AND AT BEDTIME 180 Tablet 2 4 Active Atorvastatin Calcium 40 MG Oral Tablet (Lipitor) TAKE 1 TABLET BY MOUTH AT BEDTIME 90 Tablet 2 4 Active Isosorbide Mononitrate ER 30 MG Oral Tablet Extended Release 24 Hour (Imdur) TAKE 1 TABLET BY MOUTH ONCE DAILY IN THE MORNING 90 Tablet 2 4 Active Memantine HCl 5 MG Oral Tablet (Namenda) Take 1 tablet by mouth in the morning for 7 days, then increase to 1 tablet by mouth twice daily. Okay to wait and add to next set of pill packs. 180 Tablet 1 4 Active Vitron-C 65-125 MG Oral Tablet (Iron-Vitamin C 65-125 mg per tab) Take 1 Tablet by mouth in the morning. 30 Tablet 11 4 Active Furosemide 20 MG Oral Tablet (Lasix) Take 2 Tablets by mouth in the morning. 180 Tablet 3 4 Active Digoxin 125 MCG Oral Tablet (Lanoxin) Take one M,W,F orally. 34 Tablet 11 4 Active Escitalopram Oxalate 20 MG Oral Tablet (Lexapro) TAKE 1 TABLET BY MOUTH ONCE DAILY IN THE MORNING 30 Tablet 5 4 Active Calcitriol 0.5 MCG Oral Capsule (Rocaltrol)Indicat ions:Vitamin D deficiency TAKE 1 CAPSULE BY MOUTH ONCE DAILY IN THE MORNING 30 Capsule 11 4 Active Brexpiprazole 2 MG Oral Tablet (Rexulti) Take 1 Tablet by mouth at bedtime. 30 Tablet 3 4 Active predniSONE 10 MG Oral Tablet (Deltasone)Indicat ions:Pseudogout of hand, right,Pseudogout of wrist, right Take 4 tabs for 3 days, 3 tabs for 3 days, 2 tabs for 3 days 1 tab for 3 days 30 Tablet 5 Active Levothyroxine Sodium 88 MCG Oral Tablet (Levoxyl) TAKE 1 TABLET BY MOUTH ONCE DAILY IN THE MORNING 90 Tablet 1 5 Active documented as of this encounter (statuses as of 12/03/2024) Active Problems Problem Noted Date Diagnosed Date Moderate dementia with psychotic disturbance Type 2 diabetes mellitus wit h stage 4 chronic kidney disease, without long-term current use of insulin 11/18/2024 Type 2 diabetes mellitus wit h stage 4 chronic kidney disease, without long-term current use of insulin 11/18/2024 Type 2 diabetes mellitus wit h hemoglobin A1c goal of less than 7.5% 05/07/2024 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 Chronic heart failure with r educed ejection fraction and diastolic dysfunction 01/01/2024 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 [...] as of this encounter (statuses as of 12/03/2024) Resolved Problems Problem Noted Date Diagnosed Date Resolved Date Aspiration pneumonia of righ t lower lobe due to vomit 11/26/2021 11/25/2024 Prediabetes 10/08/2021 08/05/2024 Acute respiratory failure with hypoxia 10/08/2021 11/03/2021 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 [...] as of this encounter (statuses as of 12/03/2024) Immunizations Name Administration Dates Next Due COVID-19 mRNA, LNP-s, No Pre serve, 2-Dose Series (Moderna) 11/19/2021,05/19/2021,04/21/2021 COVID-19, MRNA-LNP, PF, 50 M CG/0.5 mL, 12 YRS AND ABOVE, IM (MODERNA-Spikevax) 07/21/2023 Covid-19, Mrna, Lnp-s, Pf, B ivalent, 30 Mcg, IM, 12 yrs and above (Pfizer) 09/29/2022 Pneumococcal Conjugate Vacc, 13 Valent (Prevnar) 08/03/2015 Pneumococcal Conjugate Vacci ne, 20-valent ([id number]) 04/11/2024 Pneumococcal Polysaccharide PPV23 (Pneumovax) 09/09/2013,10/19/2010,08/20/2007 Season [...] Telephone Encounter - Helen Morgan LPN - 12/03/2024 2:56 PM EST Care Gaps Comprehensive Care Outreach Last Office/Telemedicine Visit: 11/25/2024 (in office), Visit date not found (telemedicine) [...] AM BP Readings from Last 1 Encounters: 11/25/24 104/76 Reviewed Health Maintenance below: Health Maintenance Topic Date Due Zoster Vaccines (2 of 3) 02/01/2016 Diabetic Eye Exam 11/23/2016 Adult Wellness Visit 06/23/2018 Diabetic Foot Exam 03/23/2021 Colonoscopy 05/19/2021 PTH 09/22/2024 Albumin/Creatinine Ratio 09/25/2024 HbA1c 12/11/2024 GFR 03/12/2025 Depression Screening 03/26/2025 Nephrology Referral 03/27/2025 Phosphate 04/09/2025 Eye Colon Labs ordered and scheduled same day Ov scheduled Care Gap Outreach Action Taken: Spoke to patient spoke with sister documented in this encounter Plan of Treatment Upcoming Encounters Date Type Department Care Team (Late st Contact Info) Description 01/02/2025 3:30 PM EDT Office Visit Cardiology, [facility] [address] [facility] [place] [address] Riya Aaron CRNP [address] [place] [address] [place] [address] 02/19/2025 1:30 PM EDT Office Visit Cardiology, [facility] [address] [place] [address] Ruby Blandon CRNP [address] [place] [address] 03/24/2025 3:00 PM EDT Office Visit Family Practice [facility] [address] [place] [address] Kasandra Antunez, [address] [facility] [place] [address] 03/24/2025 3:50 PM EDT Laboratory Laboratory [facility] [address] [place] [id number] [place], Lab [facility] [address] [facility] [place] [address] Scheduled Orders Name Type Priority Associated Diagnoses Orde r Schedule HEMOGLOBIN A1C Lab Routine Diabetes mellitus (HCC) Expected: 03/02/2025, Expires: 12/03/2025 COMPREHENSIVE METABOLIC PANEL Lab Routine 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, unspecified type Expected: 03/02/2025, Expires: 12/03/2025 ALBUMIN / CREATININE RATIO, URINE Lab Routine Screening for nephropathy Expected: 03/02/2025, Expires: 12/03/2025 Scheduled Procedures Name Priority Associated Diagnoses Date/Ti [...] 12/11/2024 06/10/2024, 03/23, 09/22/2023, Additional history exists GFR 03/12/2025 09/12/2024, 07/24, [...] Completed 06/28/2024, 07/08/2023, 07/30/2022, Additional history exists COVID-19 Vaccine Completed 07/06/2024, , 09/29/2022, Additional history exists HPV (Gardasil) Vaccine Aged [...] as of this encounter Visit Diagnoses Diagnosis Diabetes mellitus (HCC)- Primary Type II or unspecified type diabetes mellitus without mention of complication, not stated as uncontrolled Screening for nephropathy 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, unspecified type documented in this encounter Advance Directives Documents on File Type Date Recorded 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 Expl anation Power of Lead Javascript Developer 04/08/2024 Rajeev "Reginald" Chronister signed on 04/05/2024 Durable Health Care POA Advance Directives and Living Will 06/15/2022 [place] Advance Health Ca re Directive - signed 06/15/2020 Healthcare Agents on File Name Relationship Healthcare Agent Relationship Communication Rajeev "Reginald" Harvey Adult Child Health C are Agent (per Health Care Power of Lead Javascript Developer document) [email or web address] Care Teams Tool Liaison Relationship Specialty Start Date End Date Kasandra Antunez DO [address] [place] [address] PCP - General Family Medicine 10/28/11 documented as of this encounter
--- OUTSIDE RECORDS SUMMARY | 2025-01-26 13:06 | External Medical Summary | Summary of Care ---
Author Name Unknown Organization [facility] Address [address] [facility] [address] Phone [phone] Care Team Providers Care Surface Boss Name Role Phone Kasandra Antunez DO Primary Care Provider Encounter Details Date Type Department Care Team (Late st Contact Info) Description 01/12/2025 Result Scan Unspecified Department Ailyn Mcelroy DO [address] [facility] [place] [address] <No scans attached> Allergies Active Allergy Reactions Criticality Noted Date Comments Codeine Psych complications 12/05/2011 documented as of this encounter (statuses as of 01/12/2025) Medications Spacer/Aero-Holdin g Chambers SISI Use with [...] as of this encounter (statuses as of 01/12/2025) Active Problems Problem Noted Date Diagnosed Date Moderate dementia with psychotic disturbance Type 2 diabetes mellitus wit h stage 4 chronic kidney disease, without long-term current use of insulin 11/18/2024 Type 2 diabetes mellitus wit h hemoglobin A1c goal of less than 7.5% 05/07/2024 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 Chronic heart failure with r educed ejection fraction and diastolic dysfunction 01/01/2024 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 [...] as of this encounter (statuses as of 01/12/2025) Resolved Problems Problem Noted Date Diagnosed Date Resolved Date Type 2 diabetes mellitus wit h stage 4 chronic kidney disease, without long-term current use of insulin 11/18/2024 12/04/2024 Aspiration pneumonia of righ t lower lobe due to vomit 11/26/2021 11/25/2024 Prediabetes 10/08/2021 08/05/2024 Acute respiratory failure with hypoxia 10/08/2021 11/03/2021 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 [...] as of this encounter (statuses as of 01/12/2025) Immunizations Name Administration Dates Next Due COVID-19 mRNA, LNP-s, No Pre serve, 2-Dose Series (Moderna) 11/19/2021,05/19/2021,04/21/2021 COVID-19, MRNA-LNP, PF, 50 M CG/0.5 mL, 12 YRS AND ABOVE, IM (MODERNA-Spikevax) 07/21/2023 Covid-19, Mrna, Lnp-s, Pf, B ivalent, 30 Mcg, IM, 12 yrs and above (Pfizer) 09/29/2022 Pneumococcal Conjugate Vacc, 13 Valent (Prevnar) 08/03/2015 Pneumococcal Conjugate Vacci ne, 20-valent ([id number]) 04/11/2024 Pneumococcal Polysaccharide PPV23 (Pneumovax) 09/09/2013,10/19/2010,08/20/2007 Season [...] 02/19/2025 1:30 PM EDT Office Visit Cardiology, [facility] [address] [place] [phone] Ruby Blandon CRNP [address] [place] [address] 03/24/2025 3:00 PM EDT Office Visit Family Practice [facility] [address] [place] [address] Kasandra Antunez, DO [address] [place] [address] 03/24/2025 3:50 PM EDT Laboratory Laboratory [facility] [address] [place] [phone] [facility] [address] [facility] [place] [address] 06/20/2025 10:30 AM EDT Office Visit Cardiology, 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 Power of Homicide Squad Lieutenant 04/08/2024 Rajeev "Reginald" Chronister signed on 04/05/2024 [facility] POA Advance Directives and Living Will 06/15/2022 [place] Advance Health Ca re Directive - signed 06/15/2020 Healthcare Agents on File Name Relationship Healthcare Agent Relationship Communication Rajeev "Reginald" Chronsandie Adult Child Health C are Agent (per Health Care Power of Homicide Squad Lieutenant document) [email or web address] Care Teams Surface Boss Relationship Specialty Start Date End Date Kasandra Antunez DO [address] [place] [address] PCP - General Family Medicine 10/28/11 documented as of this encounter
--- OUTSIDE RECORDS SUMMARY | 2025-01-26 13:06 | External Medical Summary | Summary of Care ---
Author Name Unknown Organization [facility] Address [address] [place] [address] Phone [phone] Care Team Providers Care Assistant Golf Course Superintendent Name Role Phone Kasandra Antunez DO Primary Care Provider Reason for Visit * Reason Comments Pacemaker Clinic Encounter Details Date Type Department Care Team (Latest Contact Info) Description 01/09/2025 11:30 AM EDT Cardiac Studies Cardiology, [facility] [address] [place] [address] [facility] [address] [place] [address] Tachy-leeanne syndrome (HCC)*; Cardiac pacemaker in situ Allergies Active Allergy Reactions Criticality Noted Date Comments Codeine Psych complications 12/05/2011 documented as of this encounter (statuses as of 01/09/2025) Medications Spacer/Aero-Holdin g Chambers SISI Use with [...] as of this encounter (statuses as of 01/09/2025) Active Problems Problem Noted Date Diagnosed Date [...] 01/01/2024 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 [...] as of this encounter (statuses as of 01/09/2025) Resolved Problems Problem Noted Date Diagnosed Date Resolved Date Type 2 diabetes mellitus wit h stage 4 chronic kidney disease, without long-term current use of insulin 11/18/2024 12/04/2024 Aspiration pneumonia of righ t lower lobe due to vomit 11/26/2021 11/25/2024 Prediabetes 10/08/2021 08/05/2024 Acute respiratory failure with hypoxia 10/08/2021 11/03/2021 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 [...] as of this encounter (statuses as of 01/09/2025) Immunizations Name Administration Dates Next Due COVID-19 mRNA, LNP-s, No Pre serve, 2-Dose Series (Moderna) 11/19/2021,05/19/2021,04/21/2021 COVID-19, MRNA-LNP, PF, 50 M CG/0.5 mL, 12 YRS AND ABOVE, IM (MODERNA-Spikevax) 07/21/2023 Covid-19, Mrna, Lnp-s, Pf, B ivalent, 30 Mcg, IM, 12 yrs and above (Pfizer) 09/29/2022 Pneumococcal Conjugate Vacc, 13 Valent (Prevnar) 08/03/2015 Pneumococcal Conjugate Vacci ne, 20-valent ([id number]) 04/11/2024 Pneumococcal Polysaccharide PPV23 (Pneumovax) 09/09/2013,10/19/2010,08/20/2007 Season [...] as of this encounter Progress Notes * Anyi Jimenez RN - 01/09/2025 12:05 PM EDT In office interrogation of [employer] pacemaker performed. Providers see scanned report in Media tablabeled MURJ. Pt presenting to clinic for device check for parameter changes as remote transmission received indicated pt was no longer in afib, and had lost A-V synchrony as she was set VVIR. Pacing mode changed to DDDR. Anyi Jimenez RN 01/09/2025 12:05 PM documented in this encounter Plan of Treatment Upcoming Encounters Date Type Department Care Team (Late st Contact Info) Description 02/19/2025 1:30 PM EDT Office Visit Cardiology, [facility] [address] [facility] [place] [address] Ruby Blandon CRNP [address] [place] [address] 03/24/2025 3:00 PM EDT Office Visit Family Practice [facility] [address] [facility] [place] [address] Kasandra Antunez, [address] [facility] [place] [address] 03/24/2025 3:50 PM EDT Laboratory Laboratory [facility] [address] [facility] [place] [phone] [place], Lab [facility] [address] [facility] [place] [address] 06/20/2025 10:30 AM EDT Office Visit Cardiology, [facility] [address] [facility] [place] [address] Riya Aaron CRNP [address] [place] [address] 02/20/2026 10:00 AM EDT Office Visit Neurology [facility] [address] [facility] [place] [address] Kelvin Cleary, DO [address] [facility] [place], [place] [address] Scheduled Procedures Name Priority Associated Diagnoses Date/Ti [...] Tachy-leeanne syndrome (HCC)- Primary Sinoatrial node dysfunction Cardiac pacemaker in situ documented in this encounter Advance Directives Documents on File Type Date Recorded Patient Senior Accounts Payable Specialist Expl anation Power of Lathe Spotter 04/08/2024 Rajeev "Reginald" Chronister signed on 04/05/2024 [facility] POA Advance Directives and Living Will 06/15/2022 [place] Advance Health Ca re Directive - signed 06/15/2020 Healthcare Agents on File Name Relationship Healthcare Agent Relationship Communication Rajeev "Reginald" Chronister Adult Child Health C are Agent (per Health Care Power of Lathe Spotter document) [email or web address] Care Teams Assistant Golf Course Superintendent Relationship Specialty Start Date End Date Kasandra Antunez DO [address] [place] [address] PCP - General Family Medicine 10/28/11 documented as of this encounter
--- OUTSIDE RECORDS SUMMARY | 2025-01-26 13:07 | External Medical Summary | Summary of Care ---
Author Name Unknown Organization [facility] Address [address] [place] [address] Phone [phone] Care Team Providers Care Naturopathic Oncology Provider Name Role Phone Kasandra Antunez DO Primary Care Provider Encounter Details Date Type Department Care Team (Late st Contact Info) Description 11/11/2024 Population Health External Data Unspecified Department Allergies Active Allergy Reactions Criticality Noted Date Comments Codeine Psych complications 12/05/2011 documented as of this encounter (statuses as of 11/11/2024) Medications Spacer/Aero-Holdin g Chambers SISI Use with [...] at bedtime. 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 [...] as of this encounter (statuses as of 11/11/2024) Resolved Problems Problem Noted Date Diagnosed Date Resolved Date Prediabetes 10/08/2021 08/05/2024 Acute respiratory failure with hypoxia 10/08/2021 11/03/2021 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 [...] as of this encounter (statuses as of 11/11/2024) Immunizations Name Administration Dates Next Due COVID-19 mRNA, LNP-s, No Pre serve, 2-Dose Series (Moderna) 11/19/2021,05/19/2021,04/21/2021 COVID-19, MRNA-LNP, PF, 50 M CG/0.5 mL, 12 YRS AND ABOVE, IM (MODERNA-Spikevax) 07/21/2023 Covid-19, Mrna, Lnp-s, Pf, B ivalent, 30 Mcg, IM, 12 yrs and above (Pfizer) 09/29/2022 Pneumococcal Conjugate Vacc, 13 Valent (Prevnar) 08/03/2015 Pneumococcal Conjugate Vacci ne, 20-valent ([id number]) 04/11/2024 Pneumococcal Polysaccharide PPV23 (Pneumovax) 09/09/2013,10/19/2010,08/20/2007 Season [...] ages 0-17 years) Not on file 04/10/2024 Comments No Sex and Gender Information Value Date Recorded Sex Assigned at Not on file Legal Sex Female 6:02 AM EST Gender Identity Not on file Sexual Orientation Not on file documented as of this encounter Plan of Treatment Upcoming Encounters Date Type Department Care Team (Late st Contact Info) Description 11/25/2024 1:00 PM EST Office Visit Family Practice [facility] [address] [facility] [place] [address] Kasandra Antunez, [address] [facility] [place] [address] 01/02/2025 3:30 PM EDT Office Visit Cardiology, [facility] [address] [facility] [place] [address] Riya Aaron CRNP [address] [place] [address] 02/19/2025 1:30 PM EDT Office Visit Cardiology, [facility] [address] [facility] [place] [address] Ruby Blandon CRNP [address] [place] [address] 02/21/2025 3:00 PM EDT Office Visit Neurology [facility] [address] [facility] [place] [address] Chichi Varela CRNP [address] [facility] [place] [address] Scheduled Procedures Name Priority Associated Diagnoses Date/Ti [...] Documents on File Type Date Recorded Patient Java Developer Architect Expl anation Power of Release Of Information Specialist 04/08/2024 Rajeev "Reginald" Chronister signed on 04/05/2024 [facility] POA Advance Directives and Living Will 06/15/2022 [place] Advance Health Ca re Directive - signed 06/15/2020 Healthcare Agents on File Name Relationship Healthcare Agent Relationship Communication Rajeev "Reginald" Harvey Adult Child Health C are Agent (per Health Care Power of Release Of Information Specialist document) [email or web address] Care Teams Naturopathic Oncology Provider Relationship Specialty Start Date End Date Kasandra Antunez DO [address] [place] [address] PCP - General Family Medicine 10/28/11 documented as of this encounter
--- OUTSIDE RECORDS SUMMARY | 2025-01-26 13:07 | External Medical Summary | Summary of Care ---
Author Name Unknown Organization [facility] Address [address] [place] [address] Phone [phone] Care Team Providers Care Assistant Product Manager Name Role Phone Vilma Antunez DO Primary Care Provider Reason for Visit * Reason Comments eRx-Medication Refill Encounter Details Date Type Department Care Team (Late st Contact Info) Description 11/27/2024 Refill Family Practice [facility] [address] [place] [address] Vimla Antunez DO [address] [facility] [address] Allergies Active Allergy Reactions Criticality Noted Date Comments Codeine Psych complications 12/05/2011 documented as of this encounter (statuses as of 11/28/2024) Medications Spacer/Aero-Holdi ng Chambers SISI Use with [...] MORNING 90 Tablet 1 11/27/19 25 Active Levothyroxine Sodium 88 MCG Oral Tablet (Levoxyl) TAKE 1 TABLET BY MOUTH ONCE DAILY IN THE MORNING AT LEAST 30 MINUTES PRIOR TO BREAKFAST OR OTHER MEDS 90 Tablet 1 06/14/20 24 2024 Discontinued documented as of this encounter (statuses as of 11/28/2024) Active Problems Problem Noted Date Diagnosed Date [...] diastolic dysfunction 01/01/2024 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 [...] as of this encounter (statuses as of 11/28/2024) Resolved Problems Problem Noted Date Diagnosed Date Resolved Date Aspiration pneumonia of righ t lower lobe due to vomit 11/26/2021 11/25/2024 Prediabetes 10/08/2021 08/05/2024 Acute respiratory failure with hypoxia 10/08/2021 11/03/2021 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 [...] as of this encounter (statuses as of 11/28/2024) Immunizations Name Administration Dates Next Due COVID-19 mRNA, LNP-s, No Pre serve, 2-Dose Series (Moderna) 11/19/2021,05/19/2021,04/21/2021 COVID-19, MRNA-LNP, PF, 50 M CG/0.5 mL, 12 YRS AND ABOVE, IM (MODERNA-Spikevax) 07/21/2023 Covid-19, Mrna, Lnp-s, Pf, B ivalent, 30 Mcg, IM, 12 yrs and above (Pfizer) 09/29/2022 Pneumococcal Conjugate Vacc, 13 Valent (Prevnar) 08/03/2015 Pneumococcal Conjugate Vacci ne, 20-valent ([id number]) 04/11/2024 Pneumococcal Polysaccharide PPV23 (Pneumovax) 09/09/2013,10/19/2010,08/20/2007 Season [...] encounter Miscellaneous Notes * Telephone Encounter - [facility] - 11/27/2024 10:01 PM EST Signed Prescriptions: Disp Refills Levothyroxine Sodium 88 MCG Oral Tablet (L*90 Tab*1 Sig: TAKE 1 TABLET BY MOUTH ONCE DAILY IN THE MORNINGAuthorizing Provider: VILMA ANTUNEZ User: RAZ SULTANA documented in this encounter Plan of Treatment Upcoming Encounters Date Type Department Care Team (Late st Contact Info) Description 01/02/2025 3:30 PM EDT [facility] [address] [place] [address] Riya Aaron CRNP [address] [place] [address] 02/19/2025 1:30 PM EDT Office Visit Cardiology, [facility] [address] [place] [address] Ruby Blandon CRNP [address] [place], [place] [phone] 02/21/2025 3:00 PM EDT Office Visit Neurology [facility] [address] [place] [address] Chichi Varela CRNP [address] [place], [place] [id number] Scheduled Procedures Name Priority Associated Diagnoses Date/Ti [...] Documents on File Type Date Recorded Patient Administrative Assistant Receptionist Expl anation Power of Call Center Operations Manager 04/08/2024 Rajeev Ritter" Harvey signed on 04/05/2024 Durable Health Care POA Advance Directives and Living Will 06/15/2022 [place] Advance Health Ca re Directive - signed 06/15/2020 Healthcare Agents on File Name Relationship Healthcare Agent Relationship Communication Rajeev Gabriel (Bob) Adult Child Health C are Agent (per Health Care Power of Call Center Operations Manager document) [email or web address] Care Teams Assistant Product Manager Relationship Specialty Start Date End Date Vilma Antunez DO [address] [place] [address] PCP - General Family Medicine 10/28/11 documented as of this encounter
--- OUTSIDE RECORDS SUMMARY | 2025-01-26 13:07 | External Medical Summary | Summary of Care ---
Author Name Unknown Organization [facility] Address [address] [place] [address] Phone [phone] Care Team Providers Care Taper Operator Name Role Phone Kasandra Antunez DO Primary Care Provider Reason for Visit * Reason Onset Date Comments Advice 10/14/2024 Agitated at nigh t Encounter Details Date Type Department Care Team (Late st Contact Info) Description 10/14/2024 Telephone Neurology [facility] [address] [place], [place] [id number] Services, Scheduling [address] [place] [address] Advice (Agitated at night ) Allergies Active Allergy Reactions Criticality Noted Date Comments Codeine Psych complications 12/05/2011 documented as of this encounter (statuses as of 10/21/2024) Medications Spacer/Aero-Holdi ng Chambers SISI Use with inhaler. 1 Device 0 016 Active Misc. Devices Accu-check guide glucometer kit and lancets E11.9 Use daily as directed 1 Each 020 Active Acetaminophen 325 MG Oral Tablet Take 1 Tablet by mouth every 6 hours as needed. Active amLODIPine Besylate 2.5 MG Oral Tablet (Norvasc)Indicati ons:HTN, goal below 140/90 Take by mouth 1 Tablet before bedtime. 90 Tablet 3 022 Active Rollator Ultra-Light Use as directed/need ed 1 Each 022 Active Triamcinolone Acetonide 0.5 % External Cream (Aristocort) Apply topically to affected area 2 times a day. To affected area. 60 g 5 022 Active Nitroglycerin 0.4 MG Sublingual Tablet Sublingual (Nitrostat)Indica tions:NICM (nonischemic cardiomyopathy) (HCC) Place 1 Tablet under the tongue every 5 minutes as needed for Pain, Chest. 25 Tablet 5 023 Active Ventolin HFA 108 (90 Base) MCG/ACT Inhalation Aerosol SolutionIndicatio ns:Cough INHALE 2 PUFFS IN THE MORNING, 2 PUFFS AT NOON, 2 PUFFS IN THE EVENING AND 2 PUFFS AT BEDTIME 54 g 3 024 Active Docusate Sodium 100 MG Oral Capsule (Colace) 1 Capsule in the morning and 1 Capsule before bedtime. 024 Active Accu-Chek Softclix Lancets Check sugars once daily E11.9 100 Each 3 024 Active Accu-Chek Guide w/Device Kit Use as directed. Check sugars once daily E11.9 1 Kit 024 Active Accu-Chek Guide In Vitro Strip (Glucose Blood) Check sugars once daily E11.9 100 Strip 3 024 Active Allopurinol 100 MG Oral Tablet (Zyloprim)Indicat ions:Gout of big toe TAKE 1 TABLET BY MOUTH ONCE DAILY IN THE MORNING 90 Tablet 3 024 Active Ondansetron 4 MG Oral Tablet Disintegrating (Zofran) Place under the tongue 1 Tablet every 8 hours as needed for Nausea or Vomiting. 20 Tablet 11 024 Active Magnesium Oxide 400 MG Oral Tablet Take 1 Tablet by mouth in the morning. Active Levothyroxine Sodium 88 MCG Oral Tablet (Levoxyl) TAKE 1 TABLET BY MOUTH ONCE DAILY IN THE MORNING AT LEAST 30 MINUTES PRIOR TO BREAKFAST OR OTHER MEDS 90 Tablet 1 024 Active Metoprolol Succinate ER 25 MG Oral Tablet Extended Release 24 Hour (toPROL XL) Take 1 Tablet by mouth in the morning and 1 Tablet before bedtime. 180 Tablet 3 024 Active Eliquis 2.5 MG Oral Tablet (Apixaban) TAKE 1 TABLET BY MOUTH IN THE MORNING AND AT BEDTIME 180 Tablet 1 024 Active Famotidine 20 MG Oral Tablet (Pepcid) TAKE 1 TABLET BY MOUTH IN THE MORNING AND AT BEDTIME 180 Tablet 2 024 Active Atorvastatin Calcium 40 MG Oral Tablet (Lipitor) TAKE 1 TABLET BY MOUTH AT BEDTIME 90 Tablet 2 024 Active Isosorbide Mononitrate ER 30 MG Oral Tablet Extended Release 24 Hour (Imdur) TAKE 1 TABLET BY MOUTH ONCE DAILY IN THE MORNING 90 Tablet 2 024 Active Memantine HCl 5 MG Oral Tablet (Namenda) Take 1 tablet by mouth in the morning for 7 days, then increase to 1 tablet by mouth twice daily. Okay to wait and add to next set of pill packs. 180 Tablet 1 024 Active Vitron-C 65-125 MG Oral Tablet (Iron-Vitamin C 65-125 mg per tab) Take 1 Tablet by mouth in the morning. 30 Tablet 11 024 Active Furosemide 20 MG Oral Tablet (Lasix) Take 2 Tablets by mouth in the morning. 180 Tablet 3 Active Digoxin 125 MCG Oral Tablet (Lanoxin) Take one M,W,F orally. 34 Tablet 11 Active Escitalopram Oxalate 20 MG Oral Tablet (Lexapro) TAKE 1 TABLET BY MOUTH ONCE DAILY IN THE MORNING 30 Tablet 5 Active Calcitriol 0.5 MCG Oral Capsule (Rocaltrol)Indica tions:Vitamin D deficiency TAKE 1 CAPSULE BY MOUTH ONCE DAILY IN THE MORNING 30 Capsule 11 Active Brexpiprazole 0.5 MG Oral Tablet (Rexulti) Take 1 Tablet by mouth at bedtime. 30 Tablet 5 024 2023 Discontinued Brexpiprazole 1 MG Oral Tablet (Rexulti) Take 1 Tablet by mouth at bedtime. 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 [...] as of this encounter (statuses as of 10/21/2024) Resolved Problems Problem Noted Date Diagnosed Date Resolved Date Prediabetes 10/08/2021 08/05/2024 Acute respiratory failure with hypoxia 10/08/2021 11/03/2021 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 [...] as of this encounter (statuses as of 10/21/2024) Immunizations Name Administration Dates Next Due COVID-19 mRNA, LNP-s, No Pre serve, 2-Dose Series (Moderna) 11/19/2021,05/19/2021,04/21/2021 COVID-19, MRNA-LNP, PF, 50 M CG/0.5 mL, 12 YRS AND ABOVE, IM (MODERNA-Spikevax) 07/21/2023 Covid-19, Mrna, Lnp-s, Pf, B ivalent, 30 Mcg, IM, 12 yrs and above (Pfizer) 09/29/2022 Pneumococcal Conjugate Vacc, 13 Valent (Prevnar) 08/03/2015 Pneumococcal Conjugate Vacci ne, 20-valent ([id number]) 04/11/2024 Pneumococcal Polysaccharide PPV23 (Pneumovax) 09/09/2013,10/19/2010,08/20/2007 Season [...] No 04/10/2024 Does the household have a presbyterian hospitallar source of income? (Household - for ages [...] Miscellaneous Notes * Telephone Encounter - Chichi Varela CRNP - 10/21/2024 9:53 AM EST Addressed in separate encounter. * Telephone Encounter - Nelly Haywood CMA - 10/18/2024 11:09 AM EST Addressed in 09/17 TE * Telephone Encounter - Malgorzata Dugan OSA - 10/17/2024 3:54 PM EST Patient's sister called back to see if the message this morning was responded to. They dosage was increased to the prescribed dose. Increase worked for two nights but today she is agitated and still wanting to leave. Patient is a;so showing signs of aggression, not violent and states that she wantsto go home. * Telephone Encounter - Chichi Varela CRNP - 10/14/2024 2:22 PM EST Is she taking the Brexpiprazole 0.5 mg at bedtime as ordered? If so we can try increasing to 1 mg at bedtime to see if this helps. [facility] * Telephone Encounter - Latasha Silver OSA - 10/14/2024 9:34 AM EST Who is calling: Millie (Sister) Provider patient is established with: [facility] What is the concern or issue they are having: Patient's sister (Millie) calling stating patient is unable to sleep at night; demanding to go home, wanting to leave. Requesting to place patient back on Lorazepam or increase "last prescription, she gave her" Pts phone number for nurse to call back: [phone] or [phone] documented in this encounter Plan of Treatment Upcoming Encounters Date Type Department Care Team (Late st Contact Info) Description 11/25/2024 1:00 PM EST Office Visit Family Practice [facility] [address] [place] [address] Kasandra Antunez DO [address] [facility] [place] [address] 01/01/2025 10:30 AM EDT Office Visit Cardiology, [facility] [address] [place] [address] Brian Anne MD [address] [place] [address] 02/21/2025 3:00 PM EDT Office Visit Neurology [facility] [place] [address] [place] [address] Chichi Varela CRNP [address] [place] [address] Scheduled Procedures Name Priority Associated Diagnoses Date/Ti me COLONOSCOPY FLEXIBLE PROXIMAL DIAGNOSTIC Recall History of colon polyps Health Maintenance Due Date Last Done Comments Zoster Vaccines (2 of 3) 02/01/2016 12/07/2015 Diabetic Eye Exam 11/23/2016 11/23/2015, 05/04/2011 Adult Wellness Visit 06/23/2018 06/23/2017 Diabetic Foot Exam 03/23/2021 03/23/2020, 0 06/10/2019, 02/06/2018, Additional history exists Colonoscopy 05/19/2021 05/19/2016, 05/19/2016 PTH 09/22/2024 09/22/2023, 090 05/2022, 01/27/2022, Additional [...] Documents on File Type Date Recorded Patient Instructor Decorating Expl anation Power of Nuclear Spectroscopist 04/08/2024 Rajeev "Reginald" Harvey signed on 04/05/2024 [facility] Care POA Advance Directives and Living Will 06/15/2022 [place] Advance Health Ca re Directive - signed 06/15/2020 Healthcare Agents on File Name Relationship Healthcare Agent Relationship Communication Rajeev "Reginald" Harvey Adult Child Health C are Agent (per Health Care Power of Nuclear Spectroscopist document) [email or web address] Care Teams Taper Operator Relationship Specialty Start Date End Date Kasandra Antunez DO [address] [place] [address] PCP - General Family Medicine 10/28/11 documented as of this encounter
--- OUTSIDE RECORDS SUMMARY | 2025-01-26 13:07 | External Medical Summary | Summary of Care ---
Author Name Unknown Organization [facility] Address [address] [facility] [address] Phone [phone] Care Team Providers Care Cloud Security Architect Name Role Phone Kasandra Antunez DO Primary Care Provider Encounter Details Date Type Department Care Team (Late st Contact Info) Description 11/15/2024 Result Scan Unspecified Department Ailyn Mcelroy DO [address] [facility] 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 applications coordinator 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 [...] as of this encounter (statuses as of 11/15/2024) Resolved Problems Problem Noted Date Diagnosed Date Resolved Date Prediabetes 10/08/2021 08/05/2024 Acute respiratory failure with hypoxia 10/08/2021 11/03/2021 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 applications 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 [...] as of this encounter (statuses as of 11/15/2024) Immunizations Name Administration Dates Next Due COVID-19 mRNA, LNP-s, No Pre serve, 2-Dose Series (Moderna) 11/19/2021,05/19/2021,04/21/2021 COVID-19, MRNA-LNP, PF, 50 M CG/0.5 mL, 12 YRS AND ABOVE, IM (MODERNA-Spikevax) 07/21/2023 Covid-19, Mrna, Lnp-s, Pf, B ivalent, 30 Mcg, IM, 12 yrs and above (Pfizer) 09/29/2022 Pneumococcal Conjugate Vacc, 13 Valent (Prevnar) 08/03/2015 Pneumococcal Conjugate Vacci ne, 20-valent ([id number]) 04/11/2024 Pneumococcal Polysaccharide PPV23 (Pneumovax) 09/09/2013,10/19/2010,08/20/2007 Season [...] 1:00 PM EST Office Visit Family Practice [facility] [address] [facility] [place] [address] Kasandra Antunez, [address] [facility] [place] [address] 01/02/2025 3:30 PM EDT Office Visit Cardiology, [facility] [address] [place] [address] Riya Aaron CRNP [address] [place] [address] 02/19/2025 1:30 PM EDT Office Visit Cardiology, [facility] [address] [place] [address] Ruby Blandon CRNP [address] [place] [address] 02/21/2025 3:00 PM EDT Office Visit Neurology [facility] [place] [address] [facility] [address] Chichi Varela CRNP [address] [facility] [place] [address] Scheduled Procedures Name Priority Associated Diagnoses [...] Date/Time Associated Diagnosis Comments CARDIOLOGY SCANNED RESULT 11/15/2024 documented in this encounter Results * CARDIOLOGY SCANNED RESULT (11/15/2024) 11/15/2024 Ailyn Mcelroy DO OTHER Final R esult documented in this encounter Advance Directives Documents on File Type Date Recorded Patient Therapeutic Specialist Expl anation Power of Auditor Supervisor 04/08/2024 Rajeev Ritter" Harvey signed on 04/05/2024 [facility] Health Care POA Advance Directives and Living Will 06/15/2022 [place] Advance Health Ca re Directive - signed 06/15/2020 Healthcare Agents on File Name Relationship Healthcare Agent Relationship Communication Rajeev "Reginald" Harvey Adult Child Health C are Agent (per Health Care Power of Auditor Supervisor document) [email or web address] Care Teams Cloud Security Architect Relationship Specialty Start Date End Date Kasandra Antunez DO [address] [place] [address] PCP - General Family Medicine 10/28/11 documented as of this encounter
--- OUTSIDE RECORDS SUMMARY | 2025-01-26 13:07 | External Medical Summary | Summary of Care ---
Author Name Unknown Organization [facility] Address [address] [facility] [address] Phone [phone] Care Team Providers Care Driver Helper Name Role Phone Kasandra Antunez DO Primary Care Provider Encounter Details Date Type Department Care Team (Late st Contact Info) Description 08/15/2024 Telephone Family Practice [facility] [address] [facility] [place] [phone] Kasandra Antunez DO [address] [facility] [place] [phone] Allergies Active Allergy Reactions Criticality Noted Date Comments Codeine Psych complications 12/05/2011 documented as of this encounter (statuses as of 11/14/2024) Medications Spacer/Aero-Holdin g Chambers SSII Use with inhaler. 1 Device 0 6 [...] the morning. 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 [...] as of this encounter (statuses as of 11/14/2024) Resolved Problems Problem Noted Date Diagnosed Date Resolved Date Prediabetes 10/08/2021 08/05/2024 Acute respiratory failure with hypoxia 10/08/2021 11/03/2021 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 mold sander 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 [...] as of this encounter (statuses as of 11/14/2024) Immunizations Name Administration Dates Next Due COVID-19 mRNA, LNP-s, No Pre serve, 2-Dose Series (Moderna) 11/19/2021,05/19/2021,04/21/2021 COVID-19, MRNA-LNP, PF, 50 M CG/0.5 mL, 12 YRS AND ABOVE, IM (MODERNA-Spikevax) 07/21/2023 Covid-19, Mrna, Lnp-s, Pf, B ivalent, 30 Mcg, IM, 12 yrs and above (Pfizer) 09/29/2022 Pneumococcal Conjugate Vacc, 13 Valent (Prevnar) 08/03/2015 Pneumococcal Conjugate Vacci ne, 20-valent ([id number]) 04/11/2024 Pneumococcal Polysaccharide PPV23 (Pneumovax) 09/09/2013,10/19/2010,08/20/2007 Season [...] encounter Miscellaneous Notes * Telephone Encounter - Kasandra Antunez DO - 08/15/2024 11:17 AM EDT Please call [place] pharmacy and add iron to pill pack. documented in this encounter Plan of Treatment Upcoming Encounters Date Type Department Care Team (Late st Contact Info) Description 11/25/2024 1:00 PM EST Office Visit Family Practice [facility] [address] [facility] [place] [address] Kasandra Antunez DO [address] [facility] [place] [address] 01/02/2025 3:30 PM EDT Office Visit Cardiology, [facility] [address] [facility] [place] [address] Riya Aaron CRNP [address] [facility] [place] [address] 02/19/2025 1:30 PM EDT Office Visit Cardiology, [facility] [address] [facility] [place] [address] Ruby Blandon CRNP [address] [facility] [place] [address] 02/21/2025 3:00 PM EDT Office Visit Neurology [facility] [address] [facility] [place] [address] Chichi Varela, SARITHA [address] [facility] [place] [address] Scheduled Procedures Name Priority Associated Diagnoses [...] Documents on File Type Date Recorded Patient Machinist Expl anation Power of Geological Specialist 04/08/2024 Rajeev "Reginald" Chronister signed on 04/05/2024 Durable Health Care POA Advance Directives and Living Will 06/15/2022 [place] Advance Health Ca re Directive - signed 06/15/2020 Healthcare Agents on File Name Relationship Healthcare Agent Relationship Communication Rajeev "Reginald" Chronsandie Adult Child Health C are Agent (per Health Care Power of Geological Specialist document) [email or web address] Care Teams Driver Helper Relationship Specialty Start Date End Date Kasandra Antunez DO [address] [place] [address] PCP - General Family Medicine 10/28/11 documented as of this encounter
--- OUTSIDE RECORDS SUMMARY | 2025-01-26 13:07 | External Medical Summary | Summary of Care ---
Author Name Unknown Organization [facility] Address [address] [place] [address] Phone [phone] Care Team Providers Care Sponge Buffer Name Role Phone Kasandra Antunez DO Primary Care Provider Reason for Visit * Reason Comments Follow Up Pt is here for here routine follow up. 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)*; Paroxysmal atrial tachycardia (HCC); NICM (nonischemic cardiomyopathy) (HCC); Chronic heart failure with reduced ejection fraction and diastolic dysfunction (HCC); Type 2 diabetes mellitus with hemoglobin A1c goal of less than 7.5% (HCC); Gastroesophageal reflux disease without esophagitis; MELQUIADES (generalized anxiety disorder); Sensorineural hearing loss (SNHL) of both ears; 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 [...] as of this encounter (statuses as of 11/26/2024) Resolved Problems Problem Noted Date Diagnosed Date Resolved Date Aspiration pneumonia of righ t lower lobe due to vomit 11/26/2021 11/25/2024 Prediabetes 10/08/2021 08/05/2024 Acute respiratory failure with hypoxia 10/08/2021 11/03/2021 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 [...] as of this encounter (statuses as of 11/26/2024) Immunizations Name Administration Dates Next Due COVID-19 mRNA, LNP-s, No Pre serve, 2-Dose Series (Moderna) 11/19/2021,05/19/2021,04/21/2021 COVID-19, MRNA-LNP, PF, 50 M CG/0.5 mL, 12 YRS AND ABOVE, IM (MODERNA-Spikevax) 07/21/2023 Covid-19, Mrna, Lnp-s, Pf, B ivalent, 30 Mcg, IM, 12 yrs and above (Pfizer) 09/29/2022 Pneumococcal Conjugate Vacc, 13 Valent (Prevnar) 08/03/2015 Pneumococcal Conjugate Vacci ne, 20-valent ([id number]) 04/11/2024 Pneumococcal Polysaccharide PPV23 (Pneumovax) 09/09/2013,10/19/2010,08/20/2007 Season [...] Sign Reading Time Taken Comments Blood Pressure 104/76 11/25/2024 12:53 PM EST Pulse 66 11/25/2024 12:53 PM EST Temperature 36.7 °C (98.1 °F) 11/25/2024 12:[address] Respiratory Rate - - Oxygen Saturation 96% 11/25/2024 12:53 PM EST Inhaled Oxygen Concentration - - Weight 64 kg (141 lb) 11/25/2024 12:53 PM EST Height 154.9 cm (5' 1") 11/25/2024 12:53 PM EST Body Mass Index 26.64 11/25/2024 12:53 PM EST documented in this encounter Progress Notes * Kasandra Antunez, - 11/25/2024 1:01 PM EST Images from the original note were not included. Subjective Nancy Gabriel is a 79 year old female that presents for Follow Up (Pt is here for here routine follow up.) History of Present Illness Nancy Gabriel is a 79 year old female with chronic arthritis and pseudogout who presents for follow-up. She is accompanied by her sister and caregiver who assists with her medication management. Her son Rajeev lives with her and gives her medications. She has chronic arthritis and pseudogout, previously causing significant pain in her hand due to crystal formation in the joints 1 week ago. Currently, she is taking prednisone, which has improved her condition, allowing her to move her hand without pain. At the end of last year, she was hospitalized for dehydration and a urinary tract infection, identified after a change in her behavior. Her son noticed she was not acting like herself, prompting a visit to the emergency room. She has since recovered from these issues and reports an improved appetite following the treatment of the UTI. She has a history of heart failure noted during her hospital admission. No current symptoms such asleg swelling, and her daily weights are stable. She does not typically require extra diuretics and is careful with her salt intake. She experiences occasional agitation, which may be related to her Alzheimer's disease. She is on Rexulti, prescribed by a neurologist, to help manage her frustration and agitation, especially when she was without hearing aids. Her son assists with her medication management, ensuring she takes the correct doses. She enjoys walking in her building using a wheel walker and has not experienced any falls. She is mindful of her diet, particularly her intake of sweets, as sugar substitutes can cause diarrhea. Her son helps manage her diet to ensure moderation. Objective Vitals: 11/25/24 1253 Temp: 98.1 °F (36.7 °C) Pulse: 66 SpO2: 96% BP: 104/76 BMI: 26.66 Physical Exam CHEST: No edema. CARDIOVASCULAR: No signs of heart failure. EXTREMITIES: Able to move hands without pain. General: alert, healthy, and no distress Head: [...] refill, no joint deformities, effusion, or inflammation I have reviewed the following results: Results LABS Urinalysis: Positive for urinary tract infection (UTI) DIAGNOSTIC Echocardiography: Findings consistent with heart failure BMP results Recent Labs Units 09/12/24 1256 08/15/24 1149 06/10/24 1144 SODIUM - [facility] mmol/L 144 142 139 POTASSIUM - [facility] mmol/L 3.9 3.9 4.1 CHLORIDE - [facility] mmol/L 103 103 102 CO2 - [facility] mmol/L 26 26 20* CREATININE - [facility] mg/dL 2.3* 2.2* 1.8* BUN - [facility] mg/dL 21* 32* 31* CBC results Recent Labs Units 09/12/24 1256 08/15/24 1149 04/09/24 1225 03/15/24 0529 WBC K/uL 7.91 -- 11.84* 8.44 HGB g/dL 11.6* 10.0* 12.4 11.4* HCT % 38.7 -- 39.0 37.6 PLT K/uL 241 -- 311 297 HbA1c results Recent Labs Units 06/10/24 1144 04/09/24 1225 09/22/23 1434 HEMOGLOBIN A1C - [facility] % 7.1* 7.5* 6.4* TSH results Recent Labs Units 09/12/24 1256 10/19/23 1117 05/08/23 1012 TSH - [facility] uIU/mL 1.40 1.38 0.73 Protein/cr ratio results No results for input(s): "PROCRRATIO" in the last 98800 hours. Assessment and Plan Assessment & Plan Chronic Arthritis and Pseudogout Recent flare managed with prednisone, currently improved. Patient is aware of the signs of a flare and has a plan for management. -Continue current management plan. Urinary Tract Infection (UTI) and Dehydration Recent hospitalization for UTI and dehydration, currently resolved. -Monitor for signs of UTI or dehydration. Alzheimer's Disease Reports of occasional agitation and frustration, managed with Rexulti. -Continue Rexulti as prescribed. Heart Failure No current signs of heart failure, no leg swelling, and stable weight. -Continue current management, monitor daily weights, and maintain low salt diet. General Health Maintenance -Continue regular exercise within the building using a walker for stability. -Consider sugar-free options for sweets to manage potential diarrhea from artificial sweeteners. -Contact nurse case investigator for non-emergent concerns, including potential UTIs. -Plan for follow-up with nurse case investigator. There are no diagnoses linked to this encounter. Wrap-Up Time: I spent a total of 30-39 minutes (exact time 30 mins) on the date of service in [...] during the encounter consented to its use. Kasandra Antunez DO documented in this encounter Nursing Notes * Rajeev Pichardo CMA - 11/25/2024 1:00 PM EST The patient has been properly identified by confirmation of name and date of . Chief Complaint Patient presents with Follow Up Pt is here for here routine follow up. documented in this encounter Plan of Treatment Upcoming Encounters Date Type Department Care Team (Late st Contact Info) Description 01/02/2025 3:30 PM EDT Office Visit Cardiology, [facility] [address] [facility] [place] [address] Riya Aaron CRNP [address] [place] [address] 02/19/2025 1:30 PM EDT Office Visit Cardiology, [facility] [address] [facility] [place] [address] Ruby Blandon CRNP [address] [place] [address] 02/21/2025 3:00 PM EDT Office Visit Neurology [facility] [address] [place] [address] Chichi Varela CRNP [address] [place] [address] Scheduled Procedures Name Priority Associated [...] of this encounter Visit Diagnoses Diagnosis 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)- Primary Paroxysmal atrial tachycardia (HCC) Paroxysmal supraventricular tachycardia NICM (nonischemic cardiomyopathy) (HCC) Other primary cardiomyopathies Chronic heart failure with reduced ejection fraction and diastolic dysfunction (HCC) Type 2 diabetes mellitus with hemoglobin A1c goal of less than 7.5% (HCC) Gastroesophageal reflux disease without esophagitis Esophageal reflux MELQUIADES (generalized anxiety disorder) Generalized anxiety disorder Sensorineural hearing loss (SNHL) of both ears 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 documented in this encounter Advance Directives Documents on File Type Date Recorded Patient Wax Pot Tender Expl anation Power of Film Sound Engineer 04/08/2024 Rajeev "Reginald" Chronsandie signed on 04/05/2024 [facility] Health Care POA Advance Directives and Living Will 06/15/2022 [place] Health Ca re Directive - signed 06/15/2020 Healthcare Agents on File Name Relationship Healthcare Agent Relationship Communication Rajeev Ritter" Harvey Adult Child Health C are Agent (per Health Care Power of Film Sound Engineer document) [email or web address] Care Teams Sponge Buffer Relationship Specialty Start Date End Date Kasandra Antunez DO [address] [place] [address] PCP - General Family Medicine 10/28/11 documented as of this encounter
--- NOTE | 2025-01-26 13:46 | XRay Report ---
XR chest 1V portable HISTORY: 79 years-old Female weakness acute weakness COMPARISON: 08/11/2024 TECHNIQUE: AP view of the chest FINDINGS: Cardiac silhouette is enlarged. Left subclavian dual-lead pacer. No pneumothorax, pleural effusion or overt pulmonary edema 1.5 cm ill-defined opacity projects over the left heart border.. No airspace c onsolidation. Cholecystectomy. Bones appear grossly intact. IMPRESSION: 1. Cardiomegaly without acute process. 2. Ill-defined 1.5 cm opacity projects over the left heart border, likely secondary to summation dens ity. Nonemergent follow-up chest CT recommended in order to exclude a pulmonary nodule. ACT 112: Negative or not required by law. The above report was generated using voice recognition software. It may contain grammatical, syntax o r spelling errors. Electronically signed by: Catalino Alcocer M.D. 01/26/2025 1:45 PM
[2025-01-26 14:01] LABS: Basophils # (auto) 0.06 K/uL (0.00-0.20); Basophils % (auto) 0.5 %; Eosinophils # (auto) 0.16 K/uL (0.00-0.50); Eosinophils % (auto) 1.4 %; Hemoglobin 13.3 g/dl (12.0-16.0); Immature Granulocytes # (auto) 0.05 K/uL (0.01-0.20); Immature Granulocytes % (auto) 0.4 %; Lymphocytes % (auto) 25.6 %; Mean Corpuscular Hemoglobin 36.8 pg (25.0-34.0); Mean Corpuscular Hgb Conc 34.1 g/dL (32.0-36.0); Mean Platelet Volume 11.2 fL (9.4-12.4); Monocytes % (auto) 11.1 %; Neutrophils # (auto) 7.14 K/uL (1.40-6.50); Platelet Count 256 K/uL (130-400); RDW Coefficient of Variation 13.4 % (11.5-14.5); Red Blood Count 3.61 M/uL (4.20-5.40); White Blood Count 11.71 K/ul (4.8-10.8)
[2025-01-26 14:19] LABS: Albumin Globulin Ratio 1.6 (0.9-2); Albumin Level 4.1 gm/dl (3.4-5.0); BUN Creatinine Ratio 18.7 (10-20); Bilirubin Direct 0.1 mg/dl (0-0.2); Calcium 9.8 mg/dl (8.6-10.3); Creatinine Clr Calc Pharmacy 20.4 ml/min; Globulin 2.5 gm/dl (2.5-4.0); Potassium 3.8 mmol/L (3.5-5.1); Total Protein 6.6 gm/dl (6.0-8.3)
[2025-01-26 14:24] LABS: Troponin I High Sensitivity 33.8 pg/ml (0-14)
[2025-01-26 14:50] LABS: Adenovirus PCR Not Detected (NotDetected); Bordetella parapertussis PCR Not Detected (NotDetected); Bordetella pertussis PCR Not Detected (NotDetected); Chlamydia pneumoniae PCR Not Detected (NotDetected); Coronavirus 229E PCR Not Detected (NotDetected); Coronavirus CoV-2 (COVID19)PCR Not Detected (NotDetected); Coronavirus HKU1 PCR Not Detected (NotDetected); Coronavirus NL63 PCR Not Detected (NotDetected); Coronavirus OC43PCR Not Detected (NotDetected); Human Metapneumovirus PCR Not Detected (NotDetected); Influenza A PCR Not Detected (NotDetected); Influenza B PCR Not Detected (NotDetected); Mycoplasma pneumoniae PCR Not Detected (NotDetected); Parainfluenza Virus 1 PCR Not Detected (NotDetected); Parainfluenza Virus 2 PCR Not Detected (NotDetected); Parainfluenza Virus 3 PCR Not Detected (NotDetected); Parainfluenza Virus 4 PCR Not Detected (NotDetected); Respiratory Syncytial VirusPCR Not Detected (NotDetected); Rhinovirus/Enterovirus PCR Not Detected (NotDetected)
--- NOTE | 2025-01-26 14:58 | Emergency Department Note ---
Impression & Plan Generalized weakness, Leukocytosis ED Provider Note NAME: TATUM NOEL AGE: 79 SEX: Female INFORMANT: Patient ED PROVIDER(S): Abram William MD CHIEF COMPLAINT: Weakness PLAN: Disposition: Admitted Outpatient prescription management: none Referral: None MEDICAL DECISION MAKING: patient presented because of weakness. Clinically she was doing well without fever. Patient had a mild leukocytosis on CBC. Urinalysis was unremarkable. Cardiac troponin was borderline but patient's renal function was diminished. Renal function was slightly better or baseline compared to prior. She was gently hydrated because the patient did have positive orthostatic vital signs. Chest x-ray reveals possible density that radiology recommended nonemergent CT imaging. No obvious pneumonia or large effusions noted. Given her weakness further evaluation and management in the hospital be necessary. [facility] Patient was evaluated in the ER and admitted for further management. Care/management discussed with: ED case Level of care consideration(s): After review of the information above and other included data, I feel the patient requires escalation of care to admission Triage Nursing notes: reviewed and agree them. Vital Signs: reviewed and remarkable for positive orthostatic vital signs. Additional History obtained from: Family Chronic Medical/Social Conditions affecting care: CHF, CKD Prior/ Outside/ External records reviewed: none Differential Diagnosis: Infection, dehydration, metabolic abnormality, hypo/hyperglycemia, electrolyte disturbance, anemia, hypoxia, cardiac sources, intracerebral event, toxicologic, neurologic, as well as other pathologies. Diagnostics, independently interpreted by me: ECG: Twelve-lead ECG reveals an AV paced rhythm at 61 bpm. Cardiac Monitoring: Cardiac monitoring ordered by me: The patient was placed on continuous cardiac monitoring and observed. It revealed a paced rhythm at 62 bpm. Medical decision rules: none Imaging studies: Chest x-ray revealed cardiomegaly. No acute process. Questionable left nodule. HPI: 79 year old Female arrives for evaluation of generalized weakness. This started over the last few days and is worsening per family. The patient also notes the following associated symptoms, feeling dehydrated and generally weak. Family notes the patient is not eating or drinking much in the last 2 days and is having trouble getting around. She is somewhat lethargic. They were concerned as the patient does have a history of CKD and CHF. No sick contacts.. The patient has found no relieving factors. Current pain is rated as 0/10. pt denies LOC, headache, fevers, chills, diaphoresis, visual changes, neck pain, chest pain, breathing difficulties, nausea, vomiting, abdominal pain, back pain, melena, hematochezia, urinary symptoms, numbness, lymphadenopathy, rash, or other complaints.. PAST MEDICAL HISTORY: See Below, CHF, CKD, A-fib PAST SURGICAL HISTORY: See Below, SOCIAL HISTORY: See Below, retired HOME MEDICATIONS: See Below ALLERGIES: See Below VITALS: See Below PHYSICAL EXAMINATION: GENERAL: Awake, alert, age-appropriate.-appearing, in no distress HENT: Normocephalic, atraumatic. Oropharynx with dry mucous membranes EYES: Normal conjunctiva. Sclera non-icteric. PERRLA. NECK: Inspection normal. Non-tender. Supple. No nuchal rigidity. FROM. No masses. RESPIRATORY: Clear to auscultation. No wheezes. No rales. Normal respiratory effort. CARDIAC: Normal rate. Normal rhythm. No murmurs. No rubs. Extremities warm and well perfused. Pulses equal. No JVD. GI: Soft, non-distended. No tenderness to palpation. No rebound or guarding. No masses. RECTAL: Deferred. MUSCULOSKELETAL: Atraumatic. Chest examination reveals no tenderness. The back is kyphotic on inspection without obvious abnormality. There is no CVA tenderness to palpation. No joint edema. LOWER EXTREMITIES: Calves are equal size bilaterally and non-tender. Trace edema. No discoloration. NEURO: Normal sensorium. No sensory or motor deficits noted. SKIN: No rash or jaundice noted. PROCEDURES: none CRITICAL CARE: none OBSERVATION NOTE: none Past Med/Surg History Problem List (Updated 01/26/25 @ 14:58 by Abram William MD) Leukocytosis (Acute) Generalized weakness (Acute) Epistaxis Anemia (Acute) Elevated troponin (Acute) Cough (Acute) CHF (congestive heart failure) (Acute) SOB (shortness of breath) (Acute) Thickened endometrium Chronic CHF (Acute) Visual changes Dizziness (Acute) Acute confusion (Acute) Prolonged QT interval CHF (congestive heart failure) (Acute) Acute hypokalemia (Acute) Weakness (Acute) Hypomagnesemia (Acute) Pneumonia Cardiac pacemaker Nonischemic cardiomyopathy Dyspnea (Acute) Hypoxia (Acute) Pulmonary edema (Acute) Pleural effusion Aspiration pneumonia Pulmonary edema (Acute) Acute exacerbation of CHF (congestive heart failure) (Acute) Acute respiratory failure with hypoxia (Acute) CKD (chronic kidney disease), stage IV Tachycardia-bradycardia syndrome Paroxysmal atrial fibrillation Pneumonia (Acute) Hypoxia (Acute) Intractable nausea and vomiting (Acute) Paroxysmal atrial fibrillation with RVR (Acute) Atrial fibrillation with RVR Generalized weakness History of right MCA stroke Dyslipidemia Type 2 diabetes mellitus HTN (hypertension) (Chronic) Pain, dental (Acute) Atrial fibrillation (Chronic) Medical History Acute kidney injury superimposed on chronic kidney disease Defibrillator discharge Weakness Atrial fibrillation with rapid ventricular response Acute on chronic HFrEF (heart failure with reduced ejection fraction) Pneumonia Acute systolic (congestive) heart failure LBBB (left bundle branch block) History of adenomatous polyp of colon Degenerative disc disease, cervical Hearing loss M[place]QUIADES (generalized anxiety disorder) GERD without esophagitis Vitamin D deficiency Hypertensive cardiomegaly Surgical History History of D&C History of excision of lesion Back - Dr. Tucker History of carpal tunnel surgery History of arthroplasty of left knee Family History Other Diabetes Heart disease Social History Smoking Status: Never smoker Second Hand Exposure: No; Do You Dip or Chew Tobacco: No; Hx Alcohol Use: No Hx Substance Use: No Preferred Language: Divehi Communication Ability: Effective Hearing Ability: Hard of Hearing Monkey Trainer Required: No Beliefs That Will Affect Care: None marital status: / Current Living Situation: Alone Current Living Situation Comment: Son stays at nighttime and caregivers come throughout the day Feels Safe at Home: Yes Assistive Devices: None Allergies Allergies Allergy/AdvReac Type Severity Reaction Status Date / Time codeine Allergy Intermediate PSCHO Verified 10/20/24 16:45 COMPLICATIONS PER [facility] Home Meds Home Medications Medication Instructions Recorded Confirmed allopurinol 100 mg tablet 100 mg PO QAM 06/11/19 01/26/25 atorvastatin 40 mg tablet 40 mg PO HS 01/06/23 01/26/25 famotidine 20 mg tablet 20 mg PO AMHS 01/06/23 01/26/25 albuterol sulfate 90 mcg/actuation 2 puff inhalation QID 03/28/23 01/26/25 aerosol inhaler (Ventolin HFA) levothyroxine 88 mcg tablet 88 mcg PO QAM 03/28/23 01/26/25 ondansetron 4 mg disintegrating 4 mg translingual Q8 PRN n/v 03/28/23 01/26/25 tablet apixaban 2.5 mg tablet (Eliquis) 2.5 mg PO BID 02/29/24 01/26/25 calcitriol 0.5 mcg capsule 0.5 mcg PO QAM 02/29/24 01/26/25 docusate sodium 100 mg capsule 100 mg PO BID 03/29/24 01/26/25 isosorbide mononitrate 30 mg 30 mg PO QAM 03/29/24 01/26/25 tablet,extended release 24 hr escitalopram oxalate 20 mg tablet 20 mg PO QAM 04/27/24 01/26/25 metoprolol succinate 25 mg 25 mg PO AMHS 08/08/24 01/26/25 tablet,extended release 24 hr digoxin 125 mcg (0.125 mg) tablet 0.125 mg PO 3XWK 10/20/24 01/26/25 iron,carbonyl 65 mg-vitamin C 125 1 tab PO QAM 10/20/24 01/26/25 mg tablet,delayed release (Vitron-C) memantine 5 mg tablet 5 mg PO BID 10/20/24 01/26/25 brexpiprazole 1 mg tablet (Rexulti) 1 mg PO HS 01/26/25 01/26/25 furosemide 20 mg tablet 40 mg PO QAM 01/26/25 01/26/25 Previous Rx's Medication Instructions Recorded nitroglycerin 0.4 mg sublingual 0.4 mg sublingual UD PRN chest 05/11/22 tablet (Nitrostat) pain #10 tabs Results & Data (ED) Vital Signs Vital Signs - 24 hr 01/26/25 13:01 01/26/25 13:20 01/26/25 15:01 Temperature 36.3 C L Temperature Source Skin Pulse Rate - Lying Pulse Rate - Sitting Pulse Rate - Standing Pulse Rate 84 62 Pulse Rate from SpO2 Sensor Respiratory Rate 16 Respiratory Effort / Characteristics Non-Labored Spontaneous Respiratory Depth Normal Respiratory Pattern Regular Blood Pressure - Lying Blood Pressure - Sitting Blood Pressure- Standing Blood Pressure 121/75 Blood Pressure Mean 90 Pulse Oximetry 94 94 Oxygen Delivery Method Room Air Room Air Sepsis Recent Fever Within 48 Hours No Sepsis New/Unexplained Change in Mental Status N/A Sepsis Action Taken by Nursing No Action Required 01/26/25 15:03 01/26/25 15:14 01/26/25 16:03 Temperature Temperature Source Pulse Rate - Lying 61 Pulse Rate - Sitting 62 Pulse Rate - Standing 73 Pulse Rate 61 61 Pulse Rate from SpO2 Sensor 61 60 Respiratory Rate 14 24 Respiratory Effort / Characteristics Respiratory Depth Respiratory Pattern Blood Pressure - Lying 126/60 Blood Pressure - Sitting 114/65 Blood Pressure- Standing 102/58 L Blood Pressure 136/60 102/58 L Blood Pressure Mean 85 72 Pulse Oximetry 94 93 Oxygen Delivery Method Sepsis Recent Fever Within 48 Hours Sepsis New/Unexplained Change in Mental Status Sepsis Action Taken by Nursing Laboratory Data 01/26/25 13:40 01/26/25 13:40 Lab Results 01/26/25 01/26/25 01/26/25 Range/Units 13:40 13:44 15:23 WBC 11.71 H (4.8-10.8) K/ul RBC 3.61 L (4.20-5.40) M/uL Hgb 13.3 (12.0-16.0) g/dl Hct 39.0 (37.0-47.0) % MCV 108.0 H (80.0-100.0) fL MCH 36.8 H (25.0-34.0) pg MCHC 34.1 (32.0-36.0) g/dL RDW Std Deviation 54.0 H (36.4-46.3) fL RDW Coeff of Etta 13.4 (11.5-14.5) % Plt Count 256 (130-400) K/uL MPV 11.2 (9.4-12.4) fL Immature Gran % (Auto) 0.4 % Neut % (Auto) 61.0 % Lymph % (Auto) 25.6 % [place] % (Auto) 11.1 % Eos % (Auto) 1.4 % Baso % (Auto) 0.5 % Neut # (Auto) 7.14 H (1.40-6.50) K/uL Lymph # (Auto) 3.00 (1.20-3.40) K/uL [place] # (Auto) 1.30 H (0.11-0.59) K/uL Eos # (Auto) 0.16 (0.00-0.50) K/uL Baso # (Auto) 0.06 (0.00-0.20) K/uL Immature Gran # (Auto) 0.05 (0.01-0.20) K/uL Sodium 141 (136-145) mmol/L Potassium 3.8 (3.5-5.1) mmol/L Chloride 104 (98-107) mmol/L Carbon Dioxide 28 (21-32) mmol/L Anion Gap 9 (3-11) BUN 36 H (6-23) mg/dl Creatinine 1.93 H (0.6-1.2) mg/dl Est Cr Clr Drug Dosing 20.4 ml/min eGFR 26.03 BUN/Creatinine Ratio 18.7 (10-20) Glucose 224 H (70-99(Fasting)) mg/dl Calcium 9.8 (8.6-10.3) mg/dl Magnesium 2.0 (1.7-2.4) mg/dl Total Bilirubin 1.0 (0.2-1.0) mg/dl Direct Bilirubin 0.1 (0-0.2) mg/dl AST 13 (13-39) U/L ALT 15 (7-52) U/L Alkaline Phosphatase 102 (34-104) U/L Troponin I High Sens 33.8 H (0-14) pg/ml Total Protein 6.6 (6.0-8.3) gm/dl Albumin 4.1 (3.4-5.0) gm/dl Globulin 2.5 (2.5-4.0) gm/dl Albumin/Globulin Ratio 1.6 (0.9-2) Lipase 60 (11-82) U/L Urine Color Yellow Urine Appearance Clear (Clear) Urine pH 6.5 (4.5-7.5) Ur Specific [place] 1.010 (1.000-1.030) Urine Protein Negative (Negative) Urine Glucose (UA) Negative (Negative) Urine Ketones Negative (Negative) Urine Blood Negative (Negative) Urine Nitrite Negative (Negative) Urine Bilirubin Negative (Negative) Urine Urobilinogen Negative (Negative) Ur Leukocyte Esterase Negative (Negative) Adenovirus (PCR) Not Detected (NotDetected) B. pertussis DNA (PCR) Not Detected (NotDetected) B.parapertussis DNA PCR Not Detected (NotDetected) C. pneumoniae DNA (PCR) Not Detected (NotDetected) Coronavirus OC43 (PCR) Not Detected (NotDetected) Coronavirus HKU1 (PCR) Not Detected (NotDetected) Coronavirus 229E (PCR) Not Detected (NotDetected) SARS-CoV-2 (PCR) Not Detected (NotDetected) Coronavirus NL63 (PCR) Not Detected (NotDetected) Human Metapneumovir PCR Not Detected (NotDetected) Influenza Type A (PCR) Not Detected (NotDetected) Influenza Type B (PCR) Not Detected (NotDetected) M. pneumoniae (PCR) Not Detected (NotDetected) Parainfluenza 1 (PCR) Not Detected (NotDetected) Parainfluenza 2 (PCR) Not Detected (NotDetected) Parainfluenza 3 (PCR) Not Detected (NotDetected) Parainfluenza 4 (PCR) Not Detected (NotDetected) RSV (PCR) Not Detected (NotDetected) Entero/Rhino (PCR) Not Detected (NotDetected) 01/26/25 Range/Units 15:26 WBC (4.8-10.8) K/ul RBC (4.20-5.40) M/uL Hgb (12.0-16.0) g/dl Hct (37.0-47.0) % MCV (80.0-100.0) fL MCH (25.0-34.0) pg MCHC (32.0-36.0) g/dL RDW Std Deviation (36.4-46.3) fL RDW Coeff of Etta (11.5-14.5) % Plt Count (130-400) K/uL MPV (9.4-12.4) fL Immature Gran % (Auto) % Neut % (Auto) % Lymph % (Auto) % [place] % (Auto) % Eos % (Auto) % Baso % (Auto) % Neut # (Auto) (1.40-6.50) K/uL Lymph # (Auto) (1.20-3.40) K/uL [place] # (Auto) (0.11-0.59) K/uL Eos # (Auto) (0.00-0.50) K/uL Baso # (Auto) (0.00-0.20) K/uL Immature Gran # (Auto) (0.01-0.20) K/uL Sodium (136-145) mmol/L Potassium (3.5-5.1) mmol/L Chloride (98-107) mmol/L Carbon Dioxide (21-32) mmol/L Anion Gap (3-11) BUN (6-23) mg/dl Creatinine (0.6-1.2) mg/dl Est Cr Clr Drug Dosing ml/min eGFR BUN/Creatinine Ratio (10-20) Glucose (70-99(Fasting)) mg/dl Calcium (8.6-10.3) mg/dl Magnesium (1.7-2.4) mg/dl Total Bilirubin (0.2-1.0) mg/dl Direct Bilirubin (0-0.2) mg/dl AST (13-39) U/L ALT (7-52) U/L Alkaline Phosphatase (34-104) U/L Troponin I High Sens 37.8 H (0-14) pg/ml Total Protein (6.0-8.3) gm/dl Albumin (3.4-5.0) gm/dl Globulin (2.5-4.0) gm/dl Albumin/Globulin Ratio (0.9-2) Lipase (11-82) U/L Urine Color Urine Appearance (Clear) Urine pH (4.5-7.5) Ur Specific [place] (1.000-1.030) Urine Protein (Negative) Urine Glucose (UA) (Negative) Urine Ketones (Negative) Urine Blood (Negative) Urine Nitrite (Negative) Urine Bilirubin (Negative) Urine Urobilinogen (Negative) Ur Leukocyte Esterase (Negative) Adenovirus (PCR) (NotDetected) B. pertussis DNA (PCR) (NotDetected) B.parapertussis DNA PCR (NotDetected) C. pneumoniae DNA (PCR) (NotDetected) Coronavirus OC43 (PCR) (NotDetected) Coronavirus HKU1 (PCR) (NotDetected) Coronavirus 229E (PCR) (NotDetected) SARS-CoV-2 (PCR) (NotDetected) Coronavirus NL63 (PCR) (NotDetected) Human Metapneumovir PCR (NotDetected) Influenza Type A (PCR) (NotDetected) Influenza Type B (PCR) (NotDetected) M. pneumoniae (PCR) (NotDetected) Parainfluenza 1 (PCR) (NotDetected) Parainfluenza 2 (PCR) (NotDetected) Parainfluenza 3 (PCR) (NotDetected) Parainfluenza 4 (PCR) (NotDetected) RSV (PCR) (NotDetected) Entero/Rhino (PCR) (NotDetected) Administered Medications Sodium Chloride (Nss) 1,000 mls @ 125 mls/hr IV .Q8H ALYSSA Stop: 01/27/25 15:14 Last Admin: 01/26/25 15:25 Dose: 125 mls/hr Documented By: BLD Discontinued Medications Sodium Chloride (Nss) 500 mls @ 999 mls/hr IV .Q31M ONE Stop: 01/26/25 15:36 Last Infusion: 01/26/25 16:23 Dose: Infused Documented By: Admin: 01/26/25 15:25 Dose: 999 mls/hr Documented By: MIGUELD Imaging Data Radiologist's Impression: Chest X-Ray 01/26/25 13:20 XR chest 1V portable HISTORY: 79 years-old Female weakness acute weakness COMPARISON: 08/11/2024 TECHNIQUE: AP view of the chest FINDINGS: Cardiac silhouette is enlarged. Left subclavian dual-lead pacer. No pneumothorax, pleural effusion or overt pulmonary edema 1.5 cm ill-defined opacity projects over the left heart border.. No airspace consolidation. Cholecystectomy. Bones appear grossly intact. IMPRESSION: 1. Cardiomegaly without acute process. 2. Ill-defined 1.5 cm opacity projects over the left heart border, likely secondary to summation density. Nonemergent follow-up chest CT recommended in order to exclude a pulmonary nodule. ACT 112: Negative or not required by law. The above report was generated using voice recognition software. It may contain grammatical, syntax or spelling errors. Electronically signed by: Catalino Alcocer M.D. 01/26/2025 1:45 PM Discharge Plan Visit Data Chief Complaint: Weakness Stated Complaint: KIDNEY DISEASE, HASN'T EATEN, WEAKNESS ED Provider: Abram William Discharge Problem: Generalized weakness, Leukocytosis Discharge Instructions Interventions: ED Discharge Assessment Last Done: 01/26/25 19:38
[2025-01-26] MEDS: SODIUM CHLORIDE 0.9% 500 ML IV ONE (15:25)
[2025-01-26] MEDS: SODIUM CHLORIDE 0.9% 1,000 ML IV SCH (15:25)
[2025-01-26 15:34] LABS: Appearance Urine Clear (Clear); Bilirubin Urine Negative (Negative); Blood Urine Negative (Negative); Color Urine Yellow; Glucose Urine UA Negative (Negative); Ketones Urine Negative (Negative); Leukocyte Esterase Urine Negative (Negative); Nitrite Urine Negative (Negative); Protein Urine Negative (Negative); Urobilinogen Urine Negative (Negative); pH Urine 6.5 (4.5-7.5)
--- NOTE | 2025-01-26 17:14 | History & Physical Report ---
Date of Service January 26, 2025 Assessment & Plan (1) Generalized weakness: Plan Pt is a 79-year-old female who has a significant past medical history of nonischemic cardiomyopathy, chronic systolic and diastolic CHF, Tacy leeanne syndrome status post PPM, permanent atrial fibrillation, CKD stage IV, DMII HTN, HLD, history of CVA, dementia, GERD and anxiety who presents with increasing weakness and decreased appetite at home. Generalized weakness Failure to thrive Infectious workup grossly unremarkable except for noted leukocytosis of 11K UA negative Biofire negative Chest XRAY without acute changes, question of a pulmonary nodule CT chest pending No abdominal complaints, no visible infected skin lesions Pt does have a Hx of dementia Pacemaker interrogated- no recent acute events. pt's sisters do note that some changes were made to the pacemaker recently to "give her more energy" but they have no further details. consider cardiology consult. PT/OT- might need placement, pt's sisters agreeable if needed Orthostatic hypotension Pt with noted drop in her BP when she stands On metoprolol succinate 25mg BID, furosemide 40mg daily, isosorbide 30mg at home Hold AM furosemide at this time- resume as soon as able Metoprolol succinate ordered with hold parameters Consider midodrine initiation Consider cardiology consult in AM for medication adjustments, pt known to cardiology service Elevated troponin Elevated to 33.8 and 37.8, repeat pending EKG noting paced rhythm Pt with known CKD but trop elevation higher than baseline In setting of medical issues noted above, consider cardiology consult in the AM for further evaluation Chronic kidney disease Kidney function at baseline avoid nephrotoxins as able Continue other home meds as ordered Diet: DMII DVT prophylaxis: On Eliquis CODE STATUS: DNR/DNI per discussion with pt's sisters Dispo: admit to med/surg with tele History of Present Illness Chief Complaint: Weakness Primary Care Provider: Kasandra Antunez DO Pt is a 79-year-old female who has a significant past medical history of nonischemic cardiomyopathy, chronic systolic and diastolic CHF, Tachy leeanne syndrome status post PPM, permanent atrial fibrillation, CKD stage IV, DMII, HTN, HLD, history of CVA, dementia, GERD and anxiety who presents with increa sing weakness at home. History obtained from patient's two sisters at bedside. Patient hard of hearing and difficult to converse with. They state that she has not been eating and drinking for the past few days more so than usual. They note that she has been a bit more lethargic and weak. They states she uses a walker at home to ambulate. Lives with her son who stays with her at nighttime and she has a caregiver during the day. They state that they were particularly concerned given her history of CHF and kidney disease. In the ED, no definite cause of symptoms. Pt admitted for further evaluation and monitoring. Allergies Allergy/AdvReac Type Severity Reaction Status Date / Time codeine Allergy Intermediate PSCHO Verified 10/20/24 16:45 COMPLICATIONS PER [facility] Home Medications Medication Instructions Recorded Confirmed Type allopurinol 100 mg tablet 100 mg PO QAM 06/11/19 01/26/25 History nitroglycerin 0.4 mg sublingual 0.4 mg sublingual UD PRN chest 05/11/22 01/26/25 Rx tablet (Nitrostat) pain #10 tabs atorvastatin 40 mg tablet 40 mg PO HS 01/06/23 01/26/25 History famotidine 20 mg tablet 20 mg PO AMHS 01/06/23 01/26/25 History albuterol sulfate 90 mcg/actuation 2 puff inhalation QID 03/28/23 01/26/25 History aerosol inhaler (Ventolin HFA) levothyroxine 88 mcg tablet 88 mcg PO QAM 03/28/23 01/26/25 History ondansetron 4 mg disintegrating 4 mg translingual Q8 PRN n/v 03/28/23 01/26/25 History tablet apixaban 2.5 mg tablet (Eliquis) 2.5 mg PO BID 02/29/24 01/26/25 History calcitriol 0.5 mcg capsule 0.5 mcg PO QAM 02/29/24 01/26/25 History docusate sodium 100 mg capsule 100 mg PO BID 03/29/24 01/26/25 History isosorbide mononitrate 30 mg 30 mg PO QAM 03/29/24 01/26/25 History tablet,extended release 24 hr escitalopram oxalate 20 mg tablet 20 mg PO QAM 04/27/24 01/26/25 History metoprolol succinate 25 mg 25 mg PO AMHS 08/08/24 01/26/25 History tablet,extended release 24 hr digoxin 125 mcg (0.125 mg) tablet 0.125 mg PO 3XWK 10/20/24 01/26/25 History iron,carbonyl 65 mg-vitamin C 125 1 tab PO QAM 10/20/24 01/26/25 History mg tablet,delayed release (Vitron-C) memantine 5 mg tablet 5 mg PO BID 10/20/24 01/26/25 History brexpiprazole 1 mg tablet (Rexulti) 1 mg PO HS 01/26/25 01/26/25 History furosemide 20 mg tablet 40 mg PO QAM 01/26/25 01/26/25 History Past Med/Surg History Problem List (Updated 01/26/25 @ 14:58 by Abram William MD) Leukocytosis (Acute) Generalized weakness (Acute) Epistaxis Anemia (Acute) Elevated troponin (Acute) Cough (Acute) CHF (congestive heart failure) (Acute) SOB (shortness of breath) (Acute) Thickened endometrium Chronic CHF (Acute) Visual changes Dizziness (Acute) Acute confusion (Acute) Prolonged QT interval CHF (congestive heart failure) (Acute) Acute hypokalemia (Acute) Weakness (Acute) Hypomagnesemia (Acute) Pneumonia Cardiac pacemaker Nonischemic cardiomyopathy Dyspnea (Acute) Hypoxia (Acute) Pulmonary edema (Acute) Pleural effusion Aspiration pneumonia Pulmonary edema (Acute) Acute exacerbation of CHF (congestive heart failure) (Acute) Acute respiratory failure with hypoxia (Acute) CKD (chronic kidney disease), stage IV Tachycardia-bradycardia syndrome Paroxysmal atrial fibrillation Pneumonia (Acute) Hypoxia (Acute) Intractable nausea and vomiting (Acute) Paroxysmal atrial fibrillation with RVR (Acute) Atrial fibrillation with RVR Generalized weakness History of right MCA stroke Dyslipidemia Type 2 diabetes mellitus HTN (hypertension) (Chronic) Pain, dental (Acute) Atrial fibrillation (Chronic) Medical History Acute kidney injury superimposed on chronic kidney disease Defibrillator discharge Weakness Atrial fibrillation with rapid ventricular response Acute on chronic HFrEF (heart failure with reduced ejection fraction) Pneumonia Acute systolic (congestive) heart failure LBBB (left bundle branch block) History of adenomatous polyp of colon Degenerative disc disease, cervical Hearing loss MELQUIADES (generalized anxiety disorder) GERD without esophagitis Vitamin D deficiency Hypertensive cardiomegaly Surgical History History of D&C History of excision of lesion Back - Dr. Tucker History of carpal tunnel surgery History of arthroplasty of left knee Family History Other Diabetes Heart disease Social History Smoking Status: Never smoker Second Hand Exposure: No; Do You Dip or Chew Tobacco: No; Hx Alcohol Use: No Hx Substance Use: No Preferred Language: Welsh Communication Ability: Effective Hearing Ability: Hard of Hearing Physicist Astrophysics Required: No Beliefs That Will Affect Care: None marital status: / Current Living Situation: Alone Current Living Situation Comment: Son stays at nighttime and caregivers come throughout the day Feels Safe at Home: Yes Assistive Devices: None Review of Systems Review of Systems: All systems reviewed & are unremarkable except as noted in Subjective Physical Exam Physical Exam: General: Alert, oriented. No acute distress Neuro: hearing loss, difficulty with movements HEENT: NC/AT CV: RRR Resp: Breath sounds decreased bilaterally, no increased effort of breathing Abdomen: Soft, nontender Extremities: No edema in lower extremities bilaterally. Results & Data Results & Data Vital Signs (Past 12 Hours) Vital Signs Temp Pulse Resp BP Pulse Ox O2 Del Method 01/26/25 15:01 62 01/26/25 13:20 94 Room Air 01/26/25 13:01 36.3 C L 84 16 121/75 94 Room Air Diagnostic Findings Chest X-Ray 01/26/25 13:20 XR chest 1V portable HISTORY: 79 years-old Female weakness acute weakness COMPARISON: 08/11/2024 TECHNIQUE: AP view of the chest FINDINGS: Cardiac silhouette is enlarged. Left subclavian dual-lead pacer. No pneumothorax, pleural effusion or overt pulmonary edema 1.5 cm ill-defined opacity projects over the left heart border.. No airspace consolidation. Cholecystectomy. Bones appear grossly intact. IMPRESSION: 1. Cardiomegaly without acute process. 2. Ill-defined 1.5 cm opacity projects over the left heart border, likely secondary to summation density. Nonemergent follow-up chest CT recommended in order to exclude a pulmonary nodule. ACT 112: Negative or not required by law. The above report was generated using voice recognition software. It may contain grammatical, syntax or spelling errors. Electronically signed by: Catalino Alcocer M.D. 01/26/2025 1:45 PM Code Status & VTE Plan VTE Prophylaxis Plan VTE Prophylaxis will be ordered: Yes
--- NOTE | 2025-01-26 17:25 | Electrocardiogram Report ---
Test Reason : Blood Pressure : */* mmHG Vent. Rate : 61 BPM Atrial Rate : 61 BPM P-R Int : * ms QRS Dur : 158 ms QT Int : 458 ms P-R-T Axes : * -33 161 degrees QTcB Int : 461 ms AV dual-paced rhythm Abnormal ECG When compared with ECG of 11-Aug-2024 17:12, AV dual-paced rhythm has replaced Atrial flutter Confirmed by Marvel Granados ([id number]) on 01/26/2025 5:25:26 PM Referred By: Confirmed By: Marvel Granados
--- NOTE | 2025-01-26 19:31 | CT Scan Report ---
CT chest without contrast. History: Chest x-ray follow-up. Comparison: 08 August 2024 Technique: Helical CT imaging of the chest performed without IV contrast Dose reduction techniques were achieved by using automatic exposure control and/or adjustment of mA and/or kV according to patient size and/or use of iterative reconstruction technique. Findings: Co Founder & Ceo film demonstrates nonspecific increased interstitial markings. Lung windows demonstrate mild tracheomalacia and bronchomalacia. Mild to moderate scattered elements of groundglass attenuation with subsegmental regions of sparing likely representing air trapping. Portions of the exam limited secondary to patient motion. Mild bibasilar subsegmental atelectasis left greater than right. Soft tissue windows demonstrate mild cardiomegaly. Calcified atherosclerotic changes coronary vasculature. Additional calcified atheromatous disease of the thoracic aorta without aneurysmal dilatation. No pericardial or pleural effusions. Small sliding-type hiatal hernia. Included upper abdomen is within normal limits. Bone windows demonstrate multilevel smooth flowing bridging osteophytes of the thoracic spine. Additional multilevel posterior element fusion changes. No appreciated acute process. Impression: 1. Nonspecific mild to moderate regions of groundglass attenuation in bilateral lungs. Question chronic element of vascular congestion. Inflammatory or infectious pneumonitis not entirely excluded. 2. Cardiomegaly with calcified atherosclerotic changes coronary vasculature. 3. Multilevel fusion changes of the ventral and dorsal thoracic spine. Electronically signed by Apolinar Madden 01-26-2025 7:31 PM
[2025-01-26] MEDS: BREXPIPRAZOLE 1 MG TAB PO SCH (20:18)
[2025-01-26] MEDS ORDERED: ONDANSETRON INJ 2 MG/ML 2 ML VIAL IV PRN (21:37)
[2025-01-26] MEDS ORDERED: POLYETHYLENE (MIRALAX) 17 GM PACK PO PRN (21:38)
[2025-01-26] MEDS ORDERED: ACETAMINOPHEN 500 MG TAB PO PRN (21:38)
[2025-01-26] MEDS: DOCUSATE SODIUM 100 MG CAP PO SCH (21:50)
[2025-01-26] MEDS: FAMOTIDINE 20 MG TAB PO SCH (21:50)
[2025-01-26] MEDS: APIXABAN 2.5 MG TAB PO SCH (21:50)
[2025-01-26] MEDS: MEMANTINE HCL 5 MG TAB PO SCH (21:51)
[2025-01-26] MEDS: METOPROLOL SUCC 25MG EXT REL TAB PO SCH (22:56)
[2025-01-26] MEDS: POTASSIUM CHLORIDE 20 MEQ in LACTATED RINGER'S 1,000 ML IV ONE (22:56)
[2025-01-26] MEDS: ATORVASTATIN 40 MG TAB PO SCH (22:56)
[2025-01-27 08:49] LABS: Basophils # (auto) 0.04 K/uL (0.00-0.20); Basophils % (auto) 0.4 %; Eosinophils # (auto) 0.26 K/uL (0.00-0.50); Eosinophils % (auto) 2.6 %; Hematocrit (blood only) 37.2 % (37.0-47.0); Hemoglobin 12.8 g/dl (12.0-16.0); Immature Granulocytes # (auto) 0.05 K/uL (0.01-0.20); Immature Granulocytes % (auto) 0.5 %; Lymphocytes # (auto) 2.84 K/uL (1.20-3.40); Lymphocytes % (auto) 28.6 %; Mean Corpuscular Hemoglobin 37.2 pg (25.0-34.0); Mean Corpuscular Hgb Conc 34.4 g/dL (32.0-36.0); Mean Corpuscular Volume 108.1 fL (80.0-100.0); Mean Platelet Volume 11.5 fL (9.4-12.4); Monocytes % (auto) 10.1 %; Neutrophils # (auto) 5.73 K/uL (1.40-6.50); Neutrophils % (auto) 57.8 %; Platelet Count 214 K/uL (130-400); RDW Coefficient of Variation 13.3 % (11.5-14.5); RDW Standard Deviation 52.9 fL (36.4-46.3); Red Blood Count 3.44 M/uL (4.20-5.40); White Blood Count 9.92 K/ul (4.8-10.8)
[2025-01-27] MEDS: CALCITRIOL 0.25 MCG CAPSULE PO SCH (09:03)
[2025-01-27] MEDS: ISOSORBIDE MONO EXTENDED REL 30 MG TABCR PO SCH (09:03)
[2025-01-27] MEDS: allopurinoL 100 MG TAB PO SCH (09:03)
[2025-01-27] MEDS: LEVOTHYROXINE SODIUM 88 MCG TABLET PO SCH (09:03)
[2025-01-27] MEDS: ESCITALOPRAM OXALATE 20 MG TAB PO SCH (09:03)
[2025-01-27 09:07] LABS: Albumin Globulin Ratio 1.7 (0.9-2); Albumin Level 3.7 gm/dl (3.4-5.0); BUN Creatinine Ratio 16.4 (10-20); Bilirubin,Total 1.1 mg/dl (0.2-1.0); Calcium 9.3 mg/dl (8.6-10.3); Creatinine Clr Calc Pharmacy 24.2 ml/min; Globulin 2.2 gm/dl (2.5-4.0); Magnesium 1.8 mg/dl (1.7-2.4); Phosphorus 2.7 mg/dl (2.5-4.9); Potassium 3.7 mmol/L (3.5-5.1); Total Protein 5.9 gm/dl (6.0-8.3)
--- NOTE | 2025-01-27 12:56 | Hospitalist Progress Note ---
Date of Service January 27, 2025 Assessment & Plan (1) Age-related physical debility: (2) Orthostatic hypotension: (3) Chronic systolic (congestive) heart failure: (4) Cardiac pacemaker: (5) CKD (chronic kidney disease), stage IV: (6) Paroxysmal atrial fibrillation: (7) Type 2 diabetes mellitus: Plan Patient is 79-year-old female with known nonischemic cardiomyopathy with severely reduced ejection fraction presents ED with increasing weakness most likely due to age-related debility in the setting of multiple comorbidities and some orthostasis. Patient's symptoms have significantly improved with hydration Continue to hold diuretics and evaluate daily Monitor orthostatics Therapy evaluation Case management to assist with disposition planning Patient reports that she lives with her son and hopefully can return home there. She reports she has significant mount of assistance through the day and Meals on Wheels for her evening meal. Attempted to contact family, no answer, no voicemail available Admission and Anticipated Discharge Date Admission Date: January 26, 2025 Subjective Patient states she is feeling better. Wonders why she is in the hospital. Physical Exam Physical Exam: Constitutional: Alert, no acute distress HEENT: Mucous membranes moist. Lungs: Clear to auscultation, decreased, no wheezes rales or rhonchi CV: S1-S2, regular Abdomen: Soft, nontender, nondistended Extremities: No significant edema Neuro: No focal deficits Psych: Cooperative, normal mood Results & Data Results & Data Vital Signs (Past 12 Hours) Vital Signs Temp Pulse Pulse Resp BP BP Pulse Ox 01/27/25 10:55 36.3 C L 66 24 139/62 94 01/27/25 07:33 36.5 C 60 20 130/63 93 01/27/25 07:27 63 01/27/25 03:43 36.6 C 62 18 147/81 H 93 O2 Del Method 01/27/25 10:55 Room Air 01/27/25 07:33 Room Air 01/27/25 07:27 01/27/25 03:43 Room Air Diagnostic Findings Reviewed imaging, laboratory and diagnostic studies. Pertinent findings as below. Hemoglobin 12.8 Potassium 3.7 Creatinine 1.7, baseline Glucose 162 Troponins flat (7) Type 2 diabetes mellitus Diabetes mellitus group home insulin use: without group home use Diabetes mellitus complication status: with kidney complications Diabetes mellitus complication detail: with chronic kidney disease Chronic kidney disease stage: stage 3 (moderate) Qualified Code(s): 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
[2025-01-27] MEDS: DIGOXIN 0.125 MG TAB PO SCH (17:13)
[2025-01-28 07:09] VITALS: PULSE 104; RESP 18; TEMP 97.5; O2SAT 93
[2025-01-28 07:28] LABS: BUN Creatinine Ratio 17.8 (10-20); Calcium 9.8 mg/dl (8.6-10.3); Potassium 3.8 mmol/L (3.5-5.1)
[2025-01-28 10:45] VITALS: BP 130/75
--- NOTE | 2025-01-28 10:47 | Discharge Summary ---
Discharge Summary Date of Service January 28, 2025 Principal Dx & Hospital Course #1 = Principal Diagnosis (1) Age-related physical debility: (2) Orthostatic hypotension: (3) Chronic systolic (congestive) heart failure: (4) Cardiac pacemaker: (5) CKD (chronic kidney disease), stage IV: (6) Paroxysmal atrial fibrillation: (7) Type 2 diabetes mellitus: Plan Patient 79-year-old female presented to the emergency room with weakness and poor appetite over the last couple days. She was noted to be orthostatic and was referred for further evaluation. Patient was admitted to hospital. Given some IV hydration and her diuretics were held. By the following morning she had significantly improved. Here in the hospital she was eating and drinking adequately. Chest CT question some congestion versus an infectious process. The patient had no cough, no shortness of breath, no fevers. She may have had a mild upper respiratory infection a couple days ago most likely viral. No further interventions required at this hospitalization. She was evaluated by therapies who recommended home health care. Her laboratory studies remained stable within her baseline. On the morning of discharge she was significantly improved. There was no significant symptoms with changes in position and orthostatic vital signs are stable. Patient already has caregiver to be with her during the day and family is with her through the night. She has Meals on Wheels established. We also layer on top of this residential health care to make sure that she is continue to do well at home. Did make some adjustments in her diuretic regimen. I believe that she probably is not even taking in minimal amounts of her fluid restriction. And would benefit from decreased diuretic. Can continue to monitor her weight and fluid status and can adjust diuretics as needed that she follows up with primary providers. Notes For Next Care Provider Continue to monitor Lasix dosing needs Medication Changes From Visit Lasix dose decreased Admission HPI Per Admitting Provider Pt is a 79-year-old female who has a significant past medical history of nonischemic cardiomyopathy, chronic systolic and diastolic CHF, Tachy leeanne syndrome status post PPM, permanent atrial fibrillation, CKD stage IV, DMII, HTN, HLD, history of CVA, dementia, GERD and anxiety who presents with increasing weakness at home. History obtained from patient's two sisters at bedside. Patient hard of hearing and difficult to converse with. They state that she has not been eating and drinking for the past few days more so than usual. They note that she has been a bit more lethargic and weak. They states she uses a walker at home to ambulate. Lives with her son who stays with her at nighttime and she has a caregiver during the day. They state that they were particularly concerned given her history of CHF and kidney disease. In the ED, no definite cause of symptoms. Pt admitted for further evaluation and monitoring. Admission Exam Per Admitting Provider See H&P Discharge Exam Constitutional: Alert, somewhat frail but pleasant and interactive HEENT: Mucous membranes moist. Lungs: Clear to auscultation, decreased, no wheezes rales or rhonchi CV: S1-S2, regular, systolic murmur Abdomen: Soft, nontender, nondistended Extremities: No significant edema Neuro: No focal deficits Psych: Cooperative, normal mood Updated Medication List Medication Instructions Recorded Confirmed Type allopurinol 100 mg tablet 100 mg PO QAM 06/11/19 01/26/25 History nitroglycerin 0.4 mg sublingual 0.4 mg sublingual UD PRN chest 05/11/22 01/26/25 Rx tablet (Nitrostat) pain #10 tabs atorvastatin 40 mg tablet 40 mg PO HS 01/06/23 01/26/25 History famotidine 20 mg tablet 20 mg PO AMHS 01/06/23 01/26/25 History albuterol sulfate 90 mcg/actuation 2 puff inhalation QID 03/28/23 01/26/25 History aerosol inhaler (Ventolin HFA) levothyroxine 88 mcg tablet 88 mcg PO QAM 03/28/23 01/26/25 History ondansetron 4 mg disintegrating 4 mg translingual Q8 PRN n/v 03/28/23 01/26/25 History tablet apixaban 2.5 mg tablet (Eliquis) 2.5 mg PO BID 02/29/24 01/26/25 History calcitriol 0.5 mcg capsule 0.5 mcg PO QAM 02/29/24 01/26/25 History docusate sodium 100 mg capsule 100 mg PO BID 03/29/24 01/26/25 History isosorbide mononitrate 30 mg 30 mg PO QAM 03/29/24 01/26/25 History tablet,extended release 24 hr escitalopram oxalate 20 mg tablet 20 mg PO QAM 04/27/24 01/26/25 History metoprolol succinate 25 mg 25 mg PO AMHS 08/08/24 01/26/25 History tablet,extended release 24 hr digoxin 125 mcg (0.125 mg) tablet 0.125 mg PO 3XWK 10/20/24 01/26/25 History iron,carbonyl 65 mg-vitamin C 125 1 tab PO QAM 10/20/24 01/26/25 History mg tablet,delayed release (Vitron-C) memantine 5 mg tablet 5 mg PO BID 10/20/24 01/26/25 History brexpiprazole 1 mg tablet (Rexulti) 1 mg PO HS 01/26/25 01/26/25 History furosemide 20 mg tablet See Rx Instructions .Route 01/28/25 01/26/25 Rx .COMPLEX #0 tabs Hospital Stay Data Consultations 01/26/25 16:30 ED Decision to Admit Stat Diagnostic Imagining Performed 01/26/25 18:16 CT chest diagnostic wo con Routine Reviewed imaging, laboratory and diagnostic studies. Pertinent findings as below. Electrolytes within normal range Creatinine 1.97 which is within her baseline Glucose 178 Pacemaker interrogation no significant arrhythmias Chest CT shows some possible congestion Pending Results Patient Have Any Pending Studies at Discharge: No Discharge Instructions Given to Patient (Per Discharging Provider) You need to eat regularly to maintain adequate sugar levels and energy levels. Follow-up with your PCP. Monitor your legs for swelling Call 911 and go to the Emergency Room if: * You have tightness or pain in your chest that does not go away with rest or Nitroglycerin * You are very short of breath even with rest Call your doctor if any of the following symptoms or problems start or get worse: * Shortness of breath or difficulty breathing * Wake up at night short of breath * Chest pain * Cough * Swelling of your hands, fee, or legs * More fatigued or tired with your normal activity * Palpitations - sudden fast heart beats WEIGHT * Weigh yourself every morning after using the bathroom. * Use the same scale. * Wear the same amount of clothing. * Write your weight down on your chart. * Call your doctor if you gain more than 2-3 pounds in 1-2 days. MEDICATIONS * Use this discharge instruction sheet for instructions. * Take your medications at the time your doctor ordered. * Do not skip a dose of your medicines. * If you miss a dose of medicine, take as soon as possible, but DO NOT DOUBLE A DOSE. * Read your medicine information when you get home. * Know all of the side effects of your medicine. * Call your doctor's office if you have any side effects. * Be sure all of your doctors know what medicine and herbs you take (including cold, flu, and herbal medicine). * Pain Medicine: If you do not get relief from your pain, please call your doctor for help. Take the following with you to your follow-up doctor appointments: * Weight Chart * Medication List * List of questions Do not drink excessive alcohol, beer or wine. Home Health Attestation I certify that this patient is under my care and that I, or a physicians assistant purchasing manager working with me, had a face to-face encounter that meets the home health [id number] encounter requirements with this patient. The encounter with the patient was in whole, or in part, for the following medical condition, which is the primary reason for home health care (list medical condition): I certify that, based on my findings, the following services are medically necessary home health services: My clinical findings support the need for the above services because: Further, I certify that my clinical findings support that this patient is homebound (i.e. absences from home require considerable and taxing effort and are for medical reasons or muslim services or infrequently or of short duration when for other reasons) because: Certification for Home Health Services: Based on the above findings, I certify that this patient is confined to the home and needs intermittent senior living care, physical therapy and/or speech therapy or continues to need occupational therapy. The patient is under my care, and I have initiated the establishment of the plan of care. This patient will be followed by a physician who will periodically review the plan of care. Total Time Total Time Spent Total Time Spent (In Minutes): 34
== END 2025-01-28 11:16 | disposition home health service (06) | DRG 884 ==
LOC: ED 12:58 → EDINP 17:12 → SUATTDRO 17:12 → 2N 20:43 → 3N 01-28 00:03

== ENCOUNTER 2025-02-16 19:15 | Inpatient (IN) ==
--- OUTSIDE RECORDS SUMMARY | 2025-02-16 19:22 | External Medical Summary | Summary of Care ---
Author Name Unknown Organization [facility] Address [address] [place] [address] Phone [phone] Care Team Providers Care Telephone Diaphragm Assembler Name Role Phone Kasandra Antunez DO Primary Care Provider Reason for Visit * Reason Onset Date Comments Med Request 02/13/2025 Encounter Details Date Type Department Care Team (Late st Contact Info) Description 02/13/2025 Telephone Neurology [facility] [address] [facility], [place] [id number] Chichi Varela, POUND ATTENDANT [address] [phone] Med Request Allergies Active Allergy Reactions Criticality Noted Date Comments Codeine Psych complications 12/05/2011 documented as of this encounter (statuses as of 02/14/2025) Medications Spacer/Aero-Holdin g Chambers SISI Use with [...] morning. 30 Tablet 11 08/15/20 24 Active Digoxin 125 MCG Oral Tablet [...] BEDTIME 180 Tablet 1 12/27/19 25 Active traMADol HCl 50 MG Oral Tablet (Ultram) Take 1 Tablet by mouth every 8 hours as needed for Pain, Moderate. 10 Tablet 01/22/20 25 Active Cephalexin 500 MG Oral Capsule (Keflex) Take 1 Capsule by mouth in the morning and 1 Capsule before bedtime. Do all this for 10 days. 20 Capsule 02/05/20 25 025 Active Furosemide 20 MG Oral Tablet (Lasix) Take 1 Tablet by mouth in the morning. 90 Tablet 3 02/05/20 25 Active Rexulti 1 MG Oral Tablet Take 1 Tablet by mouth at bedtime. 30 Tablet 5 02/15/20 25 025 Active Rexulti 1 MG Oral Tablet Take 1 Tablet by mouth at bedtime. 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 [...] as of this encounter (statuses as of 02/14/2025) Resolved Problems Problem Noted Date Diagnosed Date Resolved Date Type 2 diabetes mellitus wit h stage 4 chronic kidney disease, without long-term current use of insulin 11/18/2024 12/04/2024 Aspiration pneumonia of righ t lower lobe due to vomit 11/26/2021 11/25/2024 Prediabetes 10/08/2021 08/05/2024 Acute respiratory failure with hypoxia 10/08/2021 11/03/2021 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 [...] as of this encounter (statuses as of 02/14/2025) Immunizations Name Administration Dates Next Due COVID-19 mRNA, LNP-s, No Pre serve, 2-Dose Series (Moderna) 11/19/2021,05/19/2021,04/21/2021 COVID-19, MRNA-LNP, PF, 50 M CG/0.5 mL, 12 YRS AND ABOVE, IM (MODERNA-Spikevax) 07/21/2023 Covid-19, Mrna, Lnp-s, Pf, B ivalent, 30 Mcg, IM, 12 yrs and above (Pfizer) 09/29/2022 Pneumococcal Conjugate Vacc, 13 Valent (Prevnar) 08/03/2015 Pneumococcal Conjugate Vacci ne, 20-valent ([id number]) 04/11/2024 Pneumococcal Polysaccharide PPV23 (Pneumovax) 09/09/2013,10/19/2010,08/20/2007 Season [...] older, IM (Adacel) 03/14/2008 Varicella Zoster Vaccine Gilles lt (Zostavax) 12/07/2015 Zoster Vaccine Recombinant (Shingrix) 04/25/2021 (Deferred: [...] encounter Miscellaneous Notes * Telephone Encounter - Kelvin Cleary DO - 02/14/2025 3:44 PM EDT Chichi Varela left neurology I can prescribe Rexulti. 1 mg qhs Rx sent MyG hasn't been accessed since 2020. @ [facility] support team, Please communicate med refill status to caretakers. Thanks! Note there was a lot of confusion about how much and who was dispensing it to the pt. Lots of communication that involved multiple parties and difficult to get direct answers Kelvin Cleary DO Cognitive and Behavioral Neurology 02/14/2025 3:44 PM * Telephone Encounter - SelfLuke OSA - 02/13/2025 4:03 PM EDT Patient is wanting refill on Rexulti 1 MG Oral Tablet [facility] apologies I can't find if someone could help me out thanks documented in this encounter Plan of Treatment Upcoming Encounters Date Type Department Care Team (Late st Contact Info) Description 02/19/2025 1:30 PM EDT Office Visit Cardiology, [facility] [address] [place] [phone] Ruby Blandon CRNP [address] [place] [address] 03/24/2025 3:00 PM EDT Office Visit Family Practice [facility] [place] [address] [facility] [place] [address] Kasandra Antunez, DO [address] [place], [place] [address] 03/24/2025 3:50 PM EDT Laboratory Laboratory [facility] [address] [place] [phone] [place], Lab Scenery [address] [facility] [place] [address] 06/20/2025 10:30 AM EDT Office Visit Cardiology, [facility] [address] [place] [phone] Riya Aaron CRNP [address] [facility] [place] [address] 02/20/2026 10:00 AM EDT Office Visit Neurology [facility] [address] [place], [place] [address] Kelvin Cleary, DO [address] [place] [address] Scheduled Procedures Name Priority Associated [...] Documents on File Type Date Recorded 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 Power of Pillowcase Turner 04/08/2024 Rajeev Ritter" Chronister signed on 04/05/2024 Durable Health Care POA Advance Directives and Living Will 06/15/2022 [place] Advance Health Ca re Directive - signed 06/15/2020 Healthcare Agents on File Name Relationship Healthcare Agent Relationship Communication Rajeev "Reginald" Harvey Adult Child Health C are Agent (per Health Care Power of Pillowcase Turner document) [email or web address] Care Teams Telephone Diaphragm Assembler Relationship Specialty Start Date End Date Kasandra Antunez DO [address] [place] [address] PCP - General Family Medicine 10/28/11 documented as of this encounter
--- OUTSIDE RECORDS SUMMARY | 2025-02-16 19:22 | External Medical Summary | Summary of Care ---
Author Name Unknown Organization [facility] Address [address] [place] [address] Phone [phone] Care Team Providers Care Salesperson Corsets Name Role Phone Kasandra Antunez DO Primary Care Provider Reason for Visit * Reason Onset Date Comments Home Monitoring Orders Only 02/05/2025 Encounter Details Date Type Department Care Team (Late st Contact Info) Description 02/05/2025 Home Monitoring Family Practice [facility] [address] [place] [address] Kasandra Antunez DO [address] [facility] [place] [address] Congestive heart failure (CHF) ([facility])* Allergies Active Allergy Reactions Criticality Noted Date Comments Codeine Psych complications 12/05/2011 documented as of this encounter (statuses as of 02/06/2025) Medications Spacer/Aero-Holdin g Chambers SISI Use with [...] before bedtime. 180 Tablet 3 4 Active Famotidine 20 MG Oral Tablet [...] the morning. 30 Tablet 11 4 Active Digoxin 125 MCG Oral Tablet (Lanoxin) Take one M,W,F orally. 34 Tablet 11 4 Active Escitalopram Oxalate 20 MG Oral Tablet (Lexapro) TAKE 1 TABLET BY MOUTH ONCE DAILY IN THE MORNING 30 Tablet 5 4 Active Calcitriol 0.5 MCG Oral Capsule (Rocaltrol)Indicat ions:Vitamin D deficiency TAKE 1 CAPSULE BY MOUTH ONCE DAILY IN THE MORNING 30 Capsule 11 4 Active Levothyroxine Sodium 88 MCG Oral Tablet (Levoxyl) TAKE 1 TABLET BY MOUTH ONCE DAILY IN THE MORNING 90 Tablet 1 5 Active Eliquis 2.5 MG Oral Tablet (Apixaban) TAKE 1 TABLET BY MOUTH IN THE MORNING AND AT BEDTIME 180 Tablet 1 5 Active Rexulti 1 MG Oral Tablet Take 1 Tablet by mouth at bedtime. 5 Active traMADol HCl 50 MG Oral Tablet (Ultram) Take 1 Tablet by mouth every 8 hours as needed for Pain, Moderate. 10 Tablet 5 Active Cephalexin 500 MG Oral Capsule (Keflex) Take 1 Capsule by mouth in the morning and 1 Capsule before bedtime. Do all this for 10 days. 20 Capsule 5 025 Active Furosemide 20 MG Oral Tablet (Lasix) Take 1 Tablet by mouth in the morning. 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 [...] as of this encounter (statuses as of 02/06/2025) Resolved Problems Problem Noted Date Diagnosed Date Resolved Date Type 2 diabetes mellitus wit h stage 4 chronic kidney disease, without long-term current use of insulin 11/18/2024 12/04/2024 Aspiration pneumonia of righ t lower lobe due to vomit 11/26/2021 11/25/2024 Prediabetes 10/08/2021 08/05/2024 Acute respiratory failure with hypoxia 10/08/2021 11/03/2021 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 [...] as of this encounter (statuses as of 02/06/2025) Immunizations Name Administration Dates Next Due COVID-19 mRNA, LNP-s, No Pre serve, 2-Dose Series (Moderna) 11/19/2021,05/19/2021,04/21/2021 COVID-19, MRNA-LNP, PF, 50 M CG/0.5 mL, 12 YRS AND ABOVE, IM (MODERNA-Spikevax) 07/21/2023 Covid-19, Mrna, Lnp-s, Pf, B ivalent, 30 Mcg, IM, 12 yrs and above (Pfizer) 09/29/2022 Pneumococcal Conjugate Vacc, 13 Valent (Prevnar) 08/03/2015 Pneumococcal Conjugate Vacci ne, 20-valent ([id number]) 04/11/2024 Pneumococcal Polysaccharide PPV23 (Pneumovax) 09/09/2013,10/19/2010,08/20/2007 Season [...] as of this encounter Progress Notes * Halima Cisneros OSA - 02/05/2025 3:58 PM EDT Patient has been successfully enrolled to the [place] [address] Care Coordination and Integration (CCI) program and will be provided with the Current Health Wearable device to facilitate their participation in remote monitoring: Scale Only Patient has been oriented to remote patient monitoring by their Rehabilitation Supervisor. The outpatient case manager has also provided the patient with instruction and education regarding the program. Current health to assist with initial device set-up. Delivery Method: Vendor supplied Patient understands that this monitoring should not be used as a replacement for emergency and/or urgent care. If patient experiences any urgent symptoms, they are aware to call their senior program manager for additional instructions. In emergency situations, they will either call 911 or report directly to the ED for further evaluation. documented in this encounter Plan of Treatment Upcoming Encounters Date Type Department Care Team (Late st Contact Info) Description 02/19/2025 1:30 PM EDT Office Visit Cardiology, [facility] [address] [place] [phone] [facility] [address] [facility] [address] 03/24/2025 3:00 PM EDT Office Visit Family Practice [facility] [address] [place] [address] Kasandra Antunez DO [address] [place] [address] 03/24/2025 3:50 PM EDT Laboratory Laboratory [facility] [address] [place] [phone] [place], Lab [place] [address] [facility] [place] [address] 06/20/2025 10:30 AM EDT Office Visit Cardiology, [facility] [address] [place] [phone] Riya Aaron CRNP [address] [place] [address] 02/20/2026 10:00 AM EDT Office Visit Neurology [facility] [address] [place] [address] Kelvin Cleary, DO [address] [facility] [address] Scheduled Procedures Name Priority Associated Diagnoses Date/Ti [...] as of this encounter Visit Diagnoses Diagnosis Congestive heart failure (CHF) (HCC)- Primary Congestive heart failure, unspecified documented in this encounter Advance Directives Documents on File Type Date Recorded Patient Geophysical Party Chief Expl anation Power of Tobacco Prizer 04/08/2024 Rajeev "Reginald" Chronister signed on 04/05/2024 Durable Health Care POA Advance Directives and Living Will 06/15/2022 [place] Advance Health Ca re Directive - signed 06/15/2020 Healthcare Agents on File Name Relationship Healthcare Agent Relationship Communication Rajeev "Reginald" Harvey Adult Child Health C are Agent (per Health Care Power of Tobacco Prizer document) [email or web address] Care Teams Salesperson Corsets Relationship Specialty Start Date End Date Kasandra Antunez DO [address] [place] [address] PCP - General Family Medicine 10/28/11 documented as of this encounter
--- NOTE | 2025-02-16 20:10 | Emergency Department Note ---
Impression & Plan Generalized weakness ED Provider Note HISTORY OF PRESENT ILLNESS: Patient is a 79-year-old female presenting with weakness. Family at bedside reports that the patient has had progressively worsening weakness over the last 3 days. Patient was seen by a home health nurse 3 days ago who reported to the family the patient "did not seem herself." They report that today the patient has been significantly worse. She states that "I just feel very groggy and tired." She denies any chest pain or shortness of breath. No recent falls. Denies any dysuria or hematuria. Denies any abdominal pain. Patient denies any recent falls or head injuries. Patient reportedly has not been eating or drinking well. When asked how long this been going on, the patient reports just today, but family reports that "she is lying and has been going on for a lot longer." ROS: as above PHYSICAL EXAM: Constitutional: Patient appears in no acute distress. HENT: Head: Normocephalic and atraumatic. Eyes: EOMI, PERRL Mouth/Throat: Mucous membranes moist. Neck: Trachea midline. Neck supple. Cardiovascular: Paced rhythm. No murmurs, rubs or gallops. Intact distal pulses. Pulmonary/Chest: No respiratory distress. Breath sounds clear and equal bilaterally. No wheezes or rales. Abdominal: Abdomen soft, no tenderness, rebound or guarding. Musculoskeletal: No edema, tenderness or deformity noted. Skin: Warm and dry. No rash, erythema, pallor or cyanosis Psychiatric: Appropriate mood and affect for situation. Neurological: Alert and keenly responsive. CN II-XII grossly intact, moving all extremities equally and fully. MDM: - Vitals signs stable. - History obtained via patient and family at bedside. History as above. - Chronic conditions affecting care: Afib; HTN; DM-2; HLD; CKD - Differential diagnoses include, but are not limited to: UTI; pneumonia; CVA; intracranial hemorrhage; viral syndrome; ACS - Order placed for continuous cardiac monitoring. At this time, monitor showed rate of 63 bpm with paced rhythm, per my interpretation. - External medical records reviewed. Discharge summary dated was reviewed. Patient was admitted that time secondary to weakness and poor appetite. - EKG image interpreted by myself showed paced rhythm. Rate 66 bpm. - Laboratory workup interpreted by myself showed normal WBC; normal PT/INR; stable electrolytes other than a hypercalcemia (Ca 10.4); elevated troponin (22.2); normal TSH; CKD (Cr 1.82) - CXR image reviewed by myself is negative for pneumonia, per my interpretation. - Viral respiratory panel negative - UA negative for infection - CT head wo contrast negative for acute intracranial pathology. - Discussed results with patient and family. They expressed concern that the patient is very weak and has had a poor appetite over the last few days. They report that "she cannot go on like this." - Discussion was had with family service caseworker about patient's case and need for admission - Hospitalist consulted for admission - Patient admitted to [facility] for further evaluation and management. ASSESSMENT AND PLAN: Diagnosis: generalized weakness Plan: admit Past Med/Surg History Problem List (Updated 02/16/25 @ 21:15 by Alaina Chamberlain MD) Generalized weakness (Acute) Chronic systolic (congestive) heart failure Orthostatic hypotension Age-related physical debility Leukocytosis (Acute) Generalized weakness (Acute) Epistaxis Anemia (Acute) Elevated troponin (Acute) Cough (Acute) CHF (congestive heart failure) (Acute) SOB (shortness of breath) (Acute) Thickened endometrium Chronic CHF (Acute) Visual changes Dizziness (Acute) Acute confusion (Acute) Prolonged QT interval CHF (congestive heart failure) (Acute) Acute hypokalemia (Acute) Weakness (Acute) Hypomagnesemia (Acute) Pneumonia Cardiac pacemaker Nonischemic cardiomyopathy Dyspnea (Acute) Hypoxia (Acute) Pulmonary edema (Acute) Pleural effusion Aspiration pneumonia Pulmonary edema (Acute) Acute exacerbation of CHF (congestive heart failure) (Acute) Acute respiratory failure with hypoxia (Acute) CKD (chronic kidney disease), stage IV Tachycardia-bradycardia syndrome Paroxysmal atrial fibrillation Pneumonia (Acute) Hypoxia (Acute) Intractable nausea and vomiting (Acute) Paroxysmal atrial fibrillation with RVR (Acute) Atrial fibrillation with RVR Generalized weakness History of right MCA stroke Dyslipidemia Type 2 diabetes mellitus HTN (hypertension) (Chronic) Pain, dental (Acute) Atrial fibrillation (Chronic) Medical History Acute kidney injury superimposed on chronic kidney disease Defibrillator discharge Weakness Atrial fibrillation with rapid ventricular response Acute on chronic HFrEF (heart failure with reduced ejection fraction) Pneumonia Acute systolic (congestive) heart failure LBBB (left bundle branch block) History of adenomatous polyp of colon Degenerative disc disease, cervical Hearing loss [place]ADES (generalized anxiety disorder) GERD without esophagitis Vitamin D deficiency Hypertensive cardiomegaly Surgical History History of D&C History of excision of lesion Back - Dr. 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, son stays overnight for care Feels Safe at Home: Yes Assistive Devices: Walker Allergies Allergies Allergy/AdvReac Type Severity Reaction Status Date / Time codeine Allergy Intermediate PSCHO Verified 10/20/24 16:45 COMPLICATIONS PER [facility] Home Meds Home Medications Medication Instructions Recorded Confirmed allopurinol 100 mg tablet 100 mg PO QAM 06/11/19 01/26/25 atorvastatin 40 mg tablet 40 mg PO HS 01/06/23 01/26/25 famotidine 20 mg tablet 20 mg PO AMHS 01/06/23 01/26/25 albuterol sulfate 90 mcg/actuation 2 puff inhalation QID 03/28/23 01/26/25 aerosol inhaler (Ventolin HFA) levothyroxine 88 mcg tablet 88 mcg PO QAM 03/28/23 01/26/25 ondansetron 4 mg disintegrating 4 mg translingual Q8 PRN n/v 03/28/23 01/26/25 tablet apixaban 2.5 mg tablet (Eliquis) 2.5 mg PO BID 02/29/24 01/26/25 calcitriol 0.5 mcg capsule 0.5 mcg PO QAM 02/29/24 01/26/25 docusate sodium 100 mg capsule 100 mg PO BID 03/29/24 01/26/25 isosorbide mononitrate 30 mg 30 mg PO QAM 03/29/24 01/26/25 tablet,extended release 24 hr escitalopram oxalate 20 mg tablet 20 mg PO QAM 04/27/24 01/26/25 metoprolol succinate 25 mg 25 mg PO AMHS 08/08/24 01/26/25 tablet,extended release 24 hr digoxin 125 mcg (0.125 mg) tablet 0.125 mg PO 3XWK 10/20/24 01/26/25 iron,carbonyl 65 mg-vitamin C 125 1 tab PO QAM 10/20/24 01/26/25 mg tablet,delayed release (Vitron-C) memantine 5 mg tablet 5 mg PO BID 10/20/24 01/26/25 brexpiprazole 1 mg tablet (Rexulti) 1 mg PO HS 01/26/25 01/26/25 Previous Rx's Medication Instructions Recorded nitroglycerin 0.4 mg sublingual 0.4 mg sublingual UD PRN chest 05/11/22 tablet (Nitrostat) pain #10 tabs furosemide 20 mg tablet See Rx Instructions .Route 01/28/25 .COMPLEX #0 tabs Results & Data (ED) Vital Signs Vital Signs - 24 hr 02/16/25 19:20 02/16/25 19:58 Temperature 36.3 C L Temperature Source Temporal Artery Scan Pulse Rate 72 63 Respiratory Rate 18 Respiratory Effort / Characteristics Non-Labored Spontaneous Respiratory Depth Normal Blood Pressure 102/65 Blood Pressure Mean 77 Pulse Oximetry 92 Oxygen Delivery Method Room Air Sepsis Recent Fever Within 48 Hours No Sepsis New/Unexplained Change in Mental Status No Sepsis Action Taken by Nursing No Action Required Laboratory Data 02/16/25 19:57 02/16/25 19:57 Lab Results 02/16/25 02/16/25 02/16/25 Range/Units 19:57 20:10 20:24 WBC 9.95 (4.8-10.8) K/ul RBC 3.58 L (4.20-5.40) M/uL Hgb 12.9 (12.0-16.0) g/dl Hct 39.2 (37.0-47.0) % MCV 109.5 H (80.0-100.0) fL MCH 36.0 H (25.0-34.0) pg MCHC 32.9 (32.0-36.0) g/dL RDW Std Deviation 53.0 H (36.4-46.3) fL RDW Coeff of Etta 13.2 (11.5-14.5) % Plt Count 202 (130-400) K/uL MPV 11.4 (9.4-12.4) fL Immature Gran % (Auto) 0.6 % Neut % (Auto) 57.0 % Lymph % (Auto) 28.7 % [place] % (Auto) 11.9 % Eos % (Auto) 1.3 % Baso % (Auto) 0.5 % Neut # (Auto) 5.67 (1.40-6.50) K/uL Lymph # (Auto) 2.86 (1.20-3.40) K/uL [place] # (Auto) 1.18 H (0.11-0.59) K/uL Eos # (Auto) 0.13 (0.00-0.50) K/uL Baso # (Auto) 0.05 (0.00-0.20) K/uL Immature Gran # (Auto) 0.06 (0.01-0.20) K/uL PT 11.4 (9.0-12.0) Seconds INR 1.1 (0.9-1.1) Sodium 144 (136-145) mmol/L Potassium 4.0 (3.5-5.1) mmol/L Chloride 108 H (98-107) mmol/L Carbon Dioxide 30 (21-32) mmol/L Anion Gap 6 (3-11) BUN 30 H (6-23) mg/dl Creatinine 1.82 H (0.6-1.2) mg/dl Est Cr Clr Drug Dosing Not Reportable eGFR 27.93 BUN/Creatinine Ratio 16.5 (10-20) Glucose 139 H (70-99(Fasting)) mg/dl Lactate 1.4 (0.4-2.0) mmol/L Calcium 10.4 H (8.6-10.3) mg/dl Magnesium 1.9 (1.7-2.4) mg/dl Total Bilirubin 0.9 (0.2-1.0) mg/dl AST 14 (13-39) U/L ALT 14 (7-52) U/L Alkaline Phosphatase 106 H (34-104) U/L Troponin I High Sens 22.2 H (0-14) pg/ml Total Protein 7.0 (6.0-8.3) gm/dl Albumin 4.2 (3.4-5.0) gm/dl Globulin 2.8 (2.5-4.0) gm/dl Albumin/Globulin Ratio 1.5 (0.9-2) TSH 0.911 (0.300-4.500) uIu/ml Urine Color Yellow Urine Appearance Clear (Clear) Urine pH 5.5 (4.5-7.5) Ur Specific [place] 1.014 (1.000-1.030) Urine Protein Negative (Negative) Urine Glucose (UA) Negative (Negative) Urine Ketones Negative (Negative) Urine Blood Negative (Negative) Urine Nitrite Negative (Negative) Urine Bilirubin Negative (Negative) Urine Urobilinogen Negative (Negative) Ur Leukocyte Esterase Negative (Negative) Adenovirus (PCR) Not Detected (NotDetected) B. pertussis DNA (PCR) Not Detected (NotDetected) B.parapertussis DNA PCR Not Detected (NotDetected) C. pneumoniae DNA (PCR) Not Detected (NotDetected) Coronavirus OC43 (PCR) Not Detected (NotDetected) Coronavirus HKU1 (PCR) Not Detected (NotDetected) Coronavirus 229E (PCR) Not Detected (NotDetected) SARS-CoV-2 (PCR) Not Detected (NotDetected) Coronavirus NL63 (PCR) Not Detected (NotDetected) Human Metapneumovir PCR Not Detected (NotDetected) Influenza Type A (PCR) Not Detected (NotDetected) Influenza Type B (PCR) Not Detected (NotDetected) M. pneumoniae (PCR) Not Detected (NotDetected) Parainfluenza 1 (PCR) Not Detected (NotDetected) Parainfluenza 2 (PCR) Not Detected (NotDetected) Parainfluenza 3 (PCR) Not Detected (NotDetected) Parainfluenza 4 (PCR) Not Detected (NotDetected) RSV (PCR) Not Detected (NotDetected) Entero/Rhino (PCR) Not Detected (NotDetected) Imaging Data Radiologist's Impression: Chest X-Ray 02/16/25 20:02 EXAM: Portable AP chest radiograph TECHNIQUE: AP portable radiograph of the chest was obtained. INDICATION: Shortness of breath Comparison: Thoracic CT and radiograph January 26, 2025. FINDINGS: LINES and TUBES: Left-sided cardiac pacemaker with leads projecting over the right atrium and the right ventricle of the heart. CARDIOVASCULAR: Cardiac silhouette is stably enlarged in size. Atherosclerosis of the thoracic aorta LUNGS/PLEURA: Mild pulmonary vascular congestion is unchanged. Chronic interstitial lung changes. No focal consolidation identified. No significant pleural fluid. No discernible pneumothorax. OSSEOUS/OTHER: No displaced acute osseous process identified. IMPRESSION: Mild congestive changes of the cardiovascular system that are similar to the previous radiograph. No focal consolidation detected Electronically signed by Mayco Rodas 02-16-2025 8:59 PM Discharge Plan Visit Data Chief Complaint: Weakness Stated Complaint: WEAKNESS, HEART FAILURE ED Provider: Alaina Chamberlain Discharge Problem: Generalized weakness Forms Stand Alone Forms: [facility] Prescriptions Prescriptions: No Action allopurinol 100 mg tablet 100 mg PO QAM levothyroxine 88 mcg tablet 88 mcg PO QAM albuterol sulfate [Ventolin HFA] 90 mcg/actuation HFA aerosol inhaler 2 puff INHALATION QID ondansetron 4 mg tablet,disintegrating 4 mg translingual Q8 PRN (Reason: n/v) nitroglycerin [Nitrostat] 0.4 mg Tablet, Sublingual 0.4 mg sublingual UD PRN (Reason: chest pain) Qty: 10 0RF Rx Instructions: place under tongue 0.4mg every 5 minutes as needed for pain,chest famotidine 20 mg Tablet 20 mg PO AMHS atorvastatin 40 mg tablet 40 mg PO HS calcitriol 0.5 mcg capsule 0.5 mcg PO QAM Eliquis 2.5 mg tablet 2.5 mg PO BID escitalopram oxalate 20 mg tablet 20 mg PO QAM metoprolol succinate 25 mg tablet extended release 24 hr 25 mg PO AMHS digoxin 125 mcg (0.125 mg) tablet 0.125 mg PO 3XWK memantine 5 mg tablet 5 mg PO BID Vitron-C 65 mg iron- 125 mg tablet,delayed release (DR/EC) 1 tab PO QAM Rexulti 1 mg tablet 1 mg PO HS furosemide 20 mg tablet See Rx Instructions .ROUTE .COMPLEX Qty: 0 0RF Rx Instructions: 20 mg orally on Monday, Monday, Monday. and as needed for leg swelling isosorbide mononitrate 30 mg tablet extended release 24 hr 30 mg PO QAM docusate sodium 100 mg capsule 100 mg PO BID Referrals Referrals: Kasandra Antunez DO [Primary Care Provider] -
[2025-02-16 20:22] LABS: Basophils # (auto) 0.05 K/uL (0.00-0.20); Basophils % (auto) 0.5 %; Eosinophils # (auto) 0.13 K/uL (0.00-0.50); Eosinophils % (auto) 1.3 %; Hematocrit (blood only) 39.2 % (37.0-47.0); Hemoglobin 12.9 g/dl (12.0-16.0); Immature Granulocytes # (auto) 0.06 K/uL (0.01-0.20); Immature Granulocytes % (auto) 0.6 %; Lymphocytes # (auto) 2.86 K/uL (1.20-3.40); Lymphocytes % (auto) 28.7 %; Mean Corpuscular Hgb Conc 32.9 g/dL (32.0-36.0); Mean Corpuscular Volume 109.5 fL (80.0-100.0); Mean Platelet Volume 11.4 fL (9.4-12.4); Monocytes # (auto) 1.18 K/uL (0.11-0.59); Monocytes % (auto) 11.9 %; Neutrophils # (auto) 5.67 K/uL (1.40-6.50); Platelet Count 202 K/uL (130-400); RDW Coefficient of Variation 13.2 % (11.5-14.5); Red Blood Count 3.58 M/uL (4.20-5.40); White Blood Count 9.95 K/ul (4.8-10.8)
[2025-02-16 20:22] LABS: Appearance Urine Clear (Clear); Bilirubin Urine Negative (Negative); Blood Urine Negative (Negative); Color Urine Yellow; Glucose Urine UA Negative (Negative); Ketones Urine Negative (Negative); Leukocyte Esterase Urine Negative (Negative); Nitrite Urine Negative (Negative); Protein Urine Negative (Negative); Specific Gravity Urine 1.014 (1.000-1.030); Urobilinogen Urine Negative (Negative); pH Urine 5.5 (4.5-7.5)
[2025-02-16 20:39] LABS: Alanine Aminotransferase 14 U/L (7-52); Albumin Globulin Ratio 1.5 (0.9-2); Albumin Level 4.2 gm/dl (3.4-5.0); Alkaline Phosphatase 106 U/L (34-104); Anion Gap 6 (3-11); Aspartate Aminotransferase 14 U/L (13-39); BUN Creatinine Ratio 16.5 (10-20); Bilirubin,Total 0.9 mg/dl (0.2-1.0); Blood Urea Nitrogen 30 mg/dl (6-23); Calcium 10.4 mg/dl (8.6-10.3); Carbon Dioxide 30 mmol/L (21-32); Chloride 108 mmol/L (98-107); Globulin 2.8 gm/dl (2.5-4.0); Glucose 139 mg/dl (70-99(Fasting)); Magnesium 1.9 mg/dl (1.7-2.4); Sodium 144 mmol/L (136-145)
[2025-02-16 20:45] LABS: Troponin I High Sensitivity 22.2 pg/ml (0-14)
[2025-02-16 20:48] LABS: INR 1.1 (0.9-1.1); Prothrombin Time 11.4 Seconds (9.0-12.0)
[2025-02-16 20:55] LABS: Thyroid Stimulating Hormone 0.911 uIu/ml (0.300-4.500)
--- NOTE | 2025-02-16 20:59 | XRay Report ---
EXAM: Portable AP chest radiograph TECHNIQUE: AP portable radiograph of the chest was obtained. INDICATION: Shortness of breath Comparison: Thoracic CT and radiograph January 26, 2025. FINDINGS: LINES and TUBES: Left-sided cardiac pacemaker with leads projecting over the right atrium and the right ventricle of the heart. CARDIOVASCULAR: Cardiac silhouette is stably enlarged in size. Atherosclerosis of the thoracic aorta LUNGS/PLEURA: Mild pulmonary vascular congestion is unchanged. Chronic interstitial lung changes. No focal consolidation identified. No significant pleural fluid. No discernible pneumothorax. OSSEOUS/OTHER: No displaced acute osseous process identified. IMPRESSION: Mild congestive changes of the cardiovascular system that are similar to the previous radiograph. No focal consolidation detected Electronically signed by Mayco Rodas 02-16-2025 8:59 PM
[2025-02-16 21:08] LABS: Adenovirus PCR Not Detected (NotDetected); Bordetella parapertussis PCR Not Detected (NotDetected); Bordetella pertussis PCR Not Detected (NotDetected); Chlamydia pneumoniae PCR Not Detected (NotDetected); Coronavirus 229E PCR Not Detected (NotDetected); Coronavirus CoV-2 (COVID19)PCR Not Detected (NotDetected); Coronavirus HKU1 PCR Not Detected (NotDetected); Coronavirus NL63 PCR Not Detected (NotDetected); Coronavirus OC43PCR Not Detected (NotDetected); Human Metapneumovirus PCR Not Detected (NotDetected); Influenza A PCR Not Detected (NotDetected); Influenza B PCR Not Detected (NotDetected); Mycoplasma pneumoniae PCR Not Detected (NotDetected); Parainfluenza Virus 1 PCR Not Detected (NotDetected); Parainfluenza Virus 2 PCR Not Detected (NotDetected); Parainfluenza Virus 3 PCR Not Detected (NotDetected); Parainfluenza Virus 4 PCR Not Detected (NotDetected); Respiratory Syncytial VirusPCR Not Detected (NotDetected); Rhinovirus/Enterovirus PCR Not Detected (NotDetected)
--- NOTE | 2025-02-16 23:37 | CT Scan Report ---
Exam(s): CT HEAD Without Contrast EXAM: CT Head Without Intravenous Contrast CLINICAL HISTORY: Reason for exam: weakness. TECHNIQUE: Axial computed tomography images of the head/brain without intravenous contrast. CTDI is 39 mGy and DLP is 547.75 mGy-cm. Automated exposure control was utilized for the study. A dose lowering technique was utilized adhering to the principles of ALARA. COMPARISON: Prior brain MRI from May 24, 2024. FINDINGS: Brain: Remote ischemic injury of the right frontal lobe with encephalomalacia and gliosis. No hemorrhage. Advanced nonspecific white matter changes. No edema. Ventricles: Unremarkable. No ventriculomegaly. Bones/joints: Unremarkable. No acute fracture. Soft tissues: Unremarkable. Sinuses: Unremarkable as visualized. No acute sinusitis. Mastoid air cells: Unremarkable as visualized. No mastoid effusion. IMPRESSION: No evidence of acute intracranial Pathology. Electronically signed by: Shelly Hwang MD 02/16/25 23:36 PM
[2025-02-16] MEDS: METOPROLOL SUCC 25MG EXT REL TAB PO STA (23:38)
[2025-02-17] MEDS ORDERED: POLYETHYLENE (MIRALAX) 17 GM PACK PO PRN (00:31)
[2025-02-17] MEDS ORDERED: ACETAMINOPHEN 325 MG TAB PO PRN (00:31)
[2025-02-17] MEDS: LACTATED RINGER'S 1,000 ML IV SCH (01:05)
--- NOTE | 2025-02-17 02:16 | History & Physical Report ---
Date of Service February 16, 2025 Assessment & Plan (1) Generalized weakness: Plan: 79-year-old female with a PMH of nonischemic cardiomyopathy, EF <25% and moderate MR, tachybradycardia syndrome s/p pacemaker, paroxysmal atrial fibrillation on Eliquis, CKD IV, prediabetes, HLD, anxiety, history of CVA, dementia, GERD, Generalized anxiety disorder, amiodarone toxicity lives at home with son being present during nighttime and has help during the daytime comes because of weakness and not feeling well. Patient resting comfortably hemodynamically stable. Two sisters in the room. Poor appetite not eating much as per sisters. no fevers. No cough. No headache. No runny nose or sore throat. Denies chest pain or shortness of breath. No nausea. No abdominal pain. Normal bowel and bladder movements. Generalized weakness Labs okay UA negative. Chest x-ray okay Respiratory BioFire negative Gentle fluids overnight and stopped in the morning PT OT Monitor in the hospital Chronic systolic CHF With low EF Got gentle fluids but stopped now We will continue home Lasix and metoprolol succinate and digoxin Will monitor Paroxysmal atrial fibrillation Tachybradycardia syndrome status post pacemaker On metoprolol succinate and Eliquis CKD stage IV Creatinine 1.8 around baseline Will follow labs Mild elevation of troponin Initial troponin 22 and repeat is 24 Has some Chronic elevation Will follow repeat enzymes Diabetes Not on meds Sliding scale Will follow HbA1c levels Hypertension On Imdur, metoprolol succinate Will monitor History of CVA On Eliquis and statin GERD On famotidine Dementia On memantine Hypothyroidism On Synthyroid Generalized anxiety disorder On Lexapro Hyperlipidemia On statin History of gout On allopurinol DVT prophylaxis On Eliquis Disposition Medical floor CODE STATUS full code. Was DNR/DNI in last admissions need to reverify Admission and Anticipated Discharge Date Admission Date: February 16, 2025 History of Present Illness Chief Complaint: Weakness Primary Care Provider: Kasandra Antunez DO 79-year-old female with a PMH of nonischemic cardiomyopathy, EF <25% and moderate MR, tachybradycardia syndrome s/p pacemaker, paroxysmal atrial fibrillation on Eliquis, CKD IV, prediabetes, HLD, anxiety, history of CVA, dementia, GERD, Generalized anxiety disorder, amiodarone toxicity lives at home with son being present during nighttime and has help during the daytime comes because of weakness and not feeling well. Patient resting comfortably hemodynamically stable. Two sisters in the room. Poor appetite not eating much as per sisters. no fevers. No cough. No headache. No runny nose or sore throat. Denies chest pain or shortness of breath. No nausea. No abdominal pain. Normal bowel and bladder movements. Past medical history. As mentioned above Past surgical history. Left knee arthroscopy. Carpal tunnel surgery. Colonoscopy. Excision of benign lesion lump in the back. Repair of ventral hernia. Status post pacemaker. Cholecystectomy. Social history. No smoking. No alcohol use. No drug use. Family history. Father had arthritis. Mother had arthritis. Uterus cancer. Diabetes. Sister has diabetes. Allergies Allergy/AdvReac Type Severity Reaction Status Date / Time codeine Allergy Intermediate PSCHO Verified 10/20/24 16:45 COMPLICATIONS PER GM Home Medications Medication Instructions Recorded Confirmed Type Imdur 30 mg PO DAILY 02/17/25 02/17/25 History albuterol sulfate 90 mcg/actuation 2 puff inhalation QID 02/17/25 02/17/25 History aerosol inhaler (Ventolin HFA) allopurinol 100 mg tablet 100 mg PO DAILY 02/17/25 02/17/25 History apixaban 2.5 mg tablet (Eliquis) 2.5 mg PO BID 02/17/25 02/17/25 History atorvastatin 40 mg tablet (Lipitor) 40 mg PO DAILY 02/17/25 02/17/25 History brexpiprazole 1 mg tablet (Rexulti) 1 mg PO HS 02/17/25 02/17/25 History calcitriol 0.5 mcg capsule 0.5 mcg PO DAILY 02/17/25 02/17/25 History digoxin 125 mcg (0.125 mg) tablet 125 mcg PO DAILY 02/17/25 02/17/25 History docusate sodium 100 mg capsule 100 mg PO BID 02/17/25 02/17/25 History escitalopram oxalate 20 mg tablet 20 mg PO DAILY 02/17/25 02/17/25 History (Lexapro) famotidine 20 mg tablet 20 mg PO BID 02/17/25 02/17/25 History furosemide 20 mg tablet 20 mg PO DAILY 02/17/25 02/17/25 History iron,carbonyl 65 mg-vitamin C 125 1 tab PO DAILY 02/17/25 02/17/25 History mg tablet,delayed release (Vitron-C) levothyroxine 88 mcg tablet 88 mcg PO DAILY 02/17/25 02/17/25 History magnesium oxide 400 mg PO DAILY 02/17/25 02/17/25 History memantine 5 mg tablet 5 mg PO BID 02/17/25 02/17/25 History metoprolol succinate 25 mg PO BID 02/17/25 02/17/25 History Past Med/Surg History Problem List (Updated 02/16/25 @ 21:15 by Alaina Chamberlain MD) Generalized weakness (Acute) Chronic systolic (congestive) heart failure Orthostatic hypotension Age-related physical debility Leukocytosis (Acute) Generalized weakness (Acute) Epistaxis Anemia (Acute) Elevated troponin (Acute) Cough (Acute) CHF (congestive heart failure) (Acute) SOB (shortness of breath) (Acute) Thickened endometrium Chronic CHF (Acute) Visual changes Dizziness (Acute) Acute confusion (Acute) Prolonged QT interval CHF (congestive heart failure) (Acute) Acute hypokalemia (Acute) Weakness (Acute) Hypomagnesemia (Acute) Pneumonia Cardiac pacemaker Nonischemic cardiomyopathy Dyspnea (Acute) Hypoxia (Acute) Pulmonary edema (Acute) Pleural effusion Aspiration pneumonia Pulmonary edema (Acute) Acute exacerbation of CHF (congestive heart failure) (Acute) Acute respiratory failure with hypoxia (Acute) CKD (chronic kidney disease), stage IV Tachycardia-bradycardia syndrome Paroxysmal atrial fibrillation Pneumonia (Acute) Hypoxia (Acute) Intractable nausea and vomiting (Acute) Paroxysmal atrial fibrillation with RVR (Acute) Atrial fibrillation with RVR Generalized weakness History of right MCA stroke Dyslipidemia Type 2 diabetes mellitus HTN (hypertension) (Chronic) Pain, dental (Acute) Atrial fibrillation (Chronic) Medical History Acute kidney injury superimposed on chronic kidney disease Defibrillator discharge Weakness Atrial fibrillation with rapid ventricular response Acute on chronic HFrEF (heart failure with reduced ejection fraction) Pneumonia Acute systolic (congestive) heart failure LBBB (left bundle branch block) History of adenomatous polyp of colon Degenerative disc disease, cervical Hearing loss [place] (generalized anxiety disorder) GERD without esophagitis Vitamin D deficiency Hypertensive cardiomegaly Surgical History History of D&C History of excision of lesion Back - Dr. Tucker History of carpal tunnel surgery History of arthroplasty of left knee Family History Other Diabetes Heart disease Social History Smoking Status: Never smoker Second Hand Exposure: No; Do You Dip or Chew Tobacco: No; Hx Alcohol Use: No Hx Substance Use: No Preferred Language: [place]olan Communication Ability: Effective Hearing Ability: Hard of Hearing Global Coordinator Required: No Beliefs That Will Affect Care: None marital status: / Current Living Situation: Alone Current Living Situation Comment: home health nurse visits during day and son stays overnight for care Other Information That Helps Us Care for You: No Feels Safe at Home: Yes Safety Concerns: Feels Safe At This Time Assistive Devices: Denture - Upper, Denture - Lower, Glasses, Hearing Aid - Right and Walker Review of Systems Review of Systems: All systems reviewed & are unremarkable except as noted in HPI & below Physical Exam Physical Exam: General- Not in acute distress Head- atraumatic Eyes- PERRL. ENT- oropharynx clear Neck- supple, no JVD. Lungs- clear to auscultation no wheezing or crackles. Heart- regular rhythm; murmur in mitral area, no gallop. Abdomen- normal bowel sounds, soft, nontender, no distension Extremities- no pretibial edema, no erythema seen Neuro- alert, oriented PERRL,no facial palsy; no dysarthria; moves extremities Results & Data Results & Data Vital Signs (Past 12 Hours) Vital Signs Temp Pulse Pulse Resp BP BP Pulse Ox 02/17/25 00:20 36.6 C 63 16 146/80 H 95 02/17/25 00:16 60 16 139/65 94 02/16/25 23:17 60 18 139/65 97 02/16/25 21:30 60 18 160/72 H 96 02/16/25 19:58 63 02/16/25 19:20 36.3 C L 72 18 102/65 92 O2 Del Method 02/17/25 00:20 Room Air 02/17/25 00:16 Room Air 02/16/25 23:17 Room Air 02/16/25 21:30 Room Air 02/16/25 19:58 02/16/25 19:20 Room Air Diagnostic Findings Laboratory Results WBC 10.90 K/ul (4.8-10.8) H 02/17/25 06:15 RBC 3.59 M/uL (4.20-5.40) L 02/17/25 06:15 Hgb 13.2 g/dl (12.0-16.0) 02/17/25 06:15 Hct 39.2 % (37.0-47.0) 02/17/25 06:15 MCV 109.2 fL (80.0-100.0) H 02/17/25 06:15 MCH 36.8 pg (25.0-34.0) H 02/17/25 06:15 MCHC 33.7 g/dL (32.0-36.0) 02/17/25 06:15 RDW Std Deviation 53.0 fL (36.4-46.3) H 02/17/25 06:15 RDW Coeff of Etta 13.2 % (11.5-14.5) 02/17/25 06:15 Plt Count 190 K/uL (130-400) 02/17/25 06:15 MPV 11.7 fL (9.4-12.4) 02/17/25 06:15 Immature Gran % (Auto) 0.5 % 02/17/25 06:15 Neut % (Auto) 52.1 % 02/17/25 06:15 Lymph % (Auto) 32.9 % 02/17/25 06:15 [place] % (Auto) 12.3 % 02/17/25 06:15 Eos % (Auto) 1.7 % 02/17/25 06:15 Baso % (Auto) 0.5 % 02/17/25 06:15 Neut # (Auto) 5.69 K/uL (1.40-6.50) 02/17/25 06:15 Lymph # (Auto) 3.59 K/uL (1.20-3.40) H 02/17/25 06:15 [place] # (Auto) 1.34 K/uL (0.11-0.59) H 02/17/25 06:15 Eos # (Auto) 0.18 K/uL (0.00-0.50) 02/17/25 06:15 Baso # (Auto) 0.05 K/uL (0.00-0.20) 02/17/25 06:15 Immature Gran # (Auto) 0.05 K/uL (0.01-0.20) 02/17/25 06:15 PT 11.4 Seconds (9.0-12.0) 02/16/25 19:57 INR 1.1 (0.9-1.1) 02/16/25 19:57 Sodium 143 mmol/L (136-145) 02/17/25 06:15 Potassium 3.9 mmol/L (3.5-5.1) 02/17/25 06:15 Chloride 108 mmol/L (98-107) H 02/17/25 06:15 Carbon Dioxide 29 mmol/L (21-32) 02/17/25 06:15 Anion Gap 6 (3-11) 02/17/25 06:15 BUN 28 mg/dl (6-23) H 02/17/25 06:15 Creatinine 1.67 mg/dl (0.6-1.2) H 02/17/25 06:15 Est Cr Clr Drug Dosing 24.4 ml/min 02/17/25 06:15 eGFR 30.97 02/17/25 06:15 BUN/Creatinine Ratio 16.8 (10-20) 02/17/25 06:15 Glucose 138 mg/dl (70-99(Fasting)) H 02/17/25 06:15 Lactate 1.4 mmol/L (0.4-2.0) 02/16/25 20:24 Calcium 9.9 mg/dl (8.6-10.3) 02/17/25 06:15 Magnesium 1.8 mg/dl (1.7-2.4) 02/17/25 06:15 Total Bilirubin 0.9 mg/dl (0.2-1.0) 02/16/25 19:57 AST 14 U/L (13-39) 02/16/25 19:57 ALT 14 U/L (7-52) 02/16/25 19:57 Alkaline Phosphatase 106 U/L (34-104) H 02/16/25 19:57 Troponin I High Sens 29.7 pg/ml (0-14) H 02/17/25 06:15 Total Protein 7.0 gm/dl (6.0-8.3) 02/16/25 19:57 Albumin 4.2 gm/dl (3.4-5.0) 02/16/25 19:57 Globulin 2.8 gm/dl (2.5-4.0) 02/16/25 19:57 Albumin/Globulin Ratio 1.5 (0.9-2) 02/16/25 19:57 TSH 0.911 uIu/ml (0.300-4.500) 02/16/25 19:57 Urine Color Yellow 02/16/25 20:10 Urine Appearance Clear (Clear) 02/16/25 20:10 Urine pH 5.5 (4.5-7.5) 02/16/25 20:10 Ur Specific [place] 1.014 (1.000-1.030) 02/16/25 20:10 Urine Protein Negative (Negative) 02/16/25 20:10 Urine Glucose (UA) Negative (Negative) 02/16/25 20:10 Urine Ketones Negative (Negative) 02/16/25 20:10 Urine Blood Negative (Negative) 02/16/25 20:10 Urine Nitrite Negative (Negative) 02/16/25 20:10 Urine Bilirubin Negative (Negative) 02/16/25 20:10 Urine Urobilinogen Negative (Negative) 02/16/25 20:10 Ur Leukocyte Esterase Negative (Negative) 02/16/25 20:10 Adenovirus (PCR) Not Detected (NotDetected) 02/16/25 19:57 B. pertussis DNA (PCR) Not Detected (NotDetected) 02/16/25 19:57 B.parapertussis DNA PCR Not Detected (NotDetected) 02/16/25 19:57 C. pneumoniae DNA (PCR) Not Detected (NotDetected) 02/16/25 19:57 Coronavirus OC43 (PCR) Not Detected (NotDetected) 02/16/25 19:57 Coronavirus HKU1 (PCR) Not Detected (NotDetected) 02/16/25 19:57 Coronavirus 229E (PCR) Not Detected (NotDetected) 02/16/25 19:57 SARS-CoV-2 (PCR) Not Detected (NotDetected) 02/16/25 19:57 Coronavirus NL63 (PCR) Not Detected (NotDetected) 02/16/25 19:57 Human Metapneumovir PCR Not Detected (NotDetected) 02/16/25 19:57 Influenza Type A (PCR) Not Detected (NotDetected) 02/16/25 19:57 Influenza Type B (PCR) Not Detected (NotDetected) 02/16/25 19:57 M. pneumoniae (PCR) Not Detected (NotDetected) 02/16/25 19:57 Parainfluenza 1 (PCR) Not Detected (NotDetected) 02/16/25 19:57 Parainfluenza 2 (PCR) Not Detected (NotDetected) 02/16/25 19:57 Parainfluenza 3 (PCR) Not Detected (NotDetected) 02/16/25 19:57 Parainfluenza 4 (PCR) Not Detected (NotDetected) 02/16/25 19:57 RSV (PCR) Not Detected (NotDetected) 02/16/25 19:57 Entero/Rhino (PCR) Not Detected (NotDetected) 02/16/25 19:57 Impressions Chest X-Ray 02/16/25 20:02 EXAM: Portable AP chest radiograph TECHNIQUE: AP portable radiograph of the chest was obtained. INDICATION: Shortness of breath Comparison: Thoracic CT and radiograph January 26, 2025. FINDINGS: LINES and TUBES: Left-sided cardiac pacemaker with leads projecting over the right atrium and the right ventricle of the heart. CARDIOVASCULAR: Cardiac silhouette is stably enlarged in size. Atherosclerosis of the thoracic aorta LUNGS/PLEURA: Mild pulmonary vascular congestion is unchanged. Chronic interstitial lung changes. No focal consolidation identified. No significant pleural fluid. No discernible pneumothorax. OSSEOUS/OTHER: No displaced acute osseous process identified. IMPRESSION: Mild congestive changes of the cardiovascular system that are similar to the previous radiograph. No focal consolidation detected Electronically signed by Mayco Rodas 02-16-2025 8:[address] 02/16/25 20:04 Exam(s): CT HEAD Without Contrast EXAM: CT Head Without Intravenous Contrast CLINICAL HISTORY: Reason for exam: weakness. TECHNIQUE: Axial computed tomography images of the head/brain without intravenous contrast. CTDI is 39 mGy and DLP is 547.75 mGy-cm. Automated exposure control was utilized for the study. A dose lowering technique was utilized adhering to the principles of ALARA. COMPARISON: Prior brain MRI from May 24, 2024. FINDINGS: Brain: Remote ischemic injury of the right frontal lobe with encephalomalacia and gliosis. No hemorrhage. Advanced nonspecific white matter changes. No edema. Ventricles: Unremarkable. No ventriculomegaly. Bones/joints: Unremarkable. No acute fracture. Soft tissues: Unremarkable. Sinuses: Unremarkable as visualized. No acute sinusitis. Mastoid air cells: Unremarkable as visualized. No mastoid effusion. IMPRESSION: No evidence of acute intracranial Pathology. Electronically signed by: Shelly Hwang MD 02/16/25 23:36 PM ECG Additional Comments: ECG. AV dual paced rhythm rate 66. Code Status & VTE Plan VTE Prophylaxis Plan VTE Prophylaxis will be ordered: Yes
[2025-02-17 06:58] LABS: Basophils # (auto) 0.05 K/uL (0.00-0.20); Basophils % (auto) 0.5 %; Eosinophils # (auto) 0.18 K/uL (0.00-0.50); Eosinophils % (auto) 1.7 %; Hematocrit (blood only) 39.2 % (37.0-47.0); Hemoglobin 13.2 g/dl (12.0-16.0); Immature Granulocytes # (auto) 0.05 K/uL (0.01-0.20); Immature Granulocytes % (auto) 0.5 %; Lymphocytes # (auto) 3.59 K/uL (1.20-3.40); Lymphocytes % (auto) 32.9 %; Mean Corpuscular Hemoglobin 36.8 pg (25.0-34.0); Mean Corpuscular Hgb Conc 33.7 g/dL (32.0-36.0); Mean Corpuscular Volume 109.2 fL (80.0-100.0); Mean Platelet Volume 11.7 fL (9.4-12.4); Monocytes # (auto) 1.34 K/uL (0.11-0.59); Monocytes % (auto) 12.3 %; Neutrophils # (auto) 5.69 K/uL (1.40-6.50); Neutrophils % (auto) 52.1 %; Platelet Count 190 K/uL (130-400); RDW Coefficient of Variation 13.2 % (11.5-14.5); Red Blood Count 3.59 M/uL (4.20-5.40)
[2025-02-17] MEDS ORDERED: CARBOHYDRATES FOR HYPOGLYCEMIA PO PRN (07:03)
[2025-02-17] MEDS ORDERED: GLUCAGON FOR INJ 1 MG VIAL SQ PRN (07:03)
[2025-02-17] MEDS ORDERED: GLUCOSE 40% GEL 15 GM TUBE PO PRN (07:03)
[2025-02-17] MEDS ORDERED: DEXTROSE 50% 50 ML SYRINGE IV PRN (07:03)
[2025-02-17] MEDS ORDERED: GLUCOSE 10 TAB/TUBE PO PRN (07:03)
[2025-02-17] MEDS: ALBUTEROL HFA 8 GM INHALER INH SCH ×2 (07:11→19:15)
[2025-02-17 07:20] LABS: BUN Creatinine Ratio 16.8 (10-20); Calcium 9.9 mg/dl (8.6-10.3); Creatinine Clr Calc Pharmacy 24.4 ml/min; Magnesium 1.8 mg/dl (1.7-2.4); Potassium 3.9 mmol/L (3.5-5.1)
[2025-02-17 07:28] LABS: Troponin I High Sensitivity 29.7 pg/ml (0-14)
[2025-02-17] MEDS: INSULIN ASPART PER UNIT CHARGE SC SCH (08:42)
[2025-02-17] MEDS ORDERED: NON-FORMULARY MEDICATION (Iron,Carbonyl-Vitamin C [Vitron-C] 65 mg iron- 125 mg Tablet,Del PO SCH (09:00)
[2025-02-17] MEDS: ASCORBIC ACID 500 MG TAB PO SCH (09:02)
[2025-02-17] MEDS: CALCITRIOL 0.25 MCG CAPSULE PO SCH (09:03)
[2025-02-17] MEDS: FERROUS SULFATE 325 MG TAB PO SCH (09:03)
[2025-02-17] MEDS: MAGNESIUM OXIDE 400 MG TAB PO SCH (09:05)
[2025-02-17] MEDS: MEMANTINE HCL 5 MG TAB PO SCH (09:05)
[2025-02-17] MEDS: ISOSORBIDE MONO EXTENDED REL 30 MG TABCR PO SCH (09:06)
[2025-02-17] MEDS: allopurinoL 100 MG TAB PO SCH (09:06)
[2025-02-17] MEDS: METOPROLOL SUCC 25MG EXT REL TAB PO SCH (09:06)
[2025-02-17] MEDS: APIXABAN 2.5 MG TAB PO SCH (09:06)
[2025-02-17] MEDS: ESCITALOPRAM OXALATE 20 MG TAB PO SCH (09:06)
[2025-02-17] MEDS: ATORVASTATIN 40 MG TAB PO SCH (09:06)
[2025-02-17] MEDS: FUROSEMIDE 20 MG TAB PO SCH (09:06)
[2025-02-17] MEDS: DIGOXIN 0.125 MG TAB PO SCH (09:08)
[2025-02-17] MEDS: DOCUSATE SODIUM 100 MG CAP PO SCH (09:27)
[2025-02-17] MEDS: FAMOTIDINE 20 MG TAB PO SCH (09:27)
[2025-02-17] MEDS: BREXPIPRAZOLE 1 MG PO SCH (20:19)
[2025-02-18] MEDS: LEVOTHYROXINE SODIUM 88 MCG TABLET PO SCH (05:54)
[2025-02-18 07:34] VITALS: BP 136/63; RESP 18; TEMP 97.5; O2SAT 92
[2025-02-18 08:20] LABS: Estimated Average Glucose 206 mg/dl; Hemoglobin A1C 8.8 % (4.5-5.6)
--- NOTE | 2025-02-18 12:56 | Discharge Summary ---
Discharge Summary Date of Service February 18, 2025 Principal Dx & Hospital Course #1 = Principal Diagnosis (1) Alteration in appetite: (2) Generalized weakness: (3) Chronic systolic (congestive) heart failure: (4) Age-related physical debility: (5) CKD (chronic kidney disease), stage IV: (6) Type 2 diabetes mellitus: Plan Patient brought to the emergency room by her sisters concerned that she was weak and not eating very well. Evaluation in the emergency room was unremarkable for any acute decompensation of her chronic medical issues. She was kept in the hospital for some additional observation. She was given some IV fluids. Here in the hospital she ate very well and ate all of her meals. Case management was involved in her care it was determined that she has caregivers with her from 8 AM to 4 PM and her son is with her all evening. The family really wanted to take her home. On the day of discharge she seemed to be back to her baseline. Vital signs are stable. She had eaten all of her breakfast. Everyone was comfortable with her returning home with resumption of her services. She will follow-up with her outpatient provider. Notes For Next Care Provider At some point her care may become too much for the services that have established at home Medication Changes From Visit None Admission HPI Per Admitting Provider 79-year-old female with a PMH of nonischemic cardiomyopathy, EF <25% and moderate MR, tachybradycardia syndrome s/p pacemaker, paroxysmal atrial fibrillation on Eliquis, CKD IV, prediabetes, HLD, anxiety, history of CVA, dementia, GERD, Generalized anxiety disorder, amiodarone toxicity lives at home with son being present during nighttime and has help during the daytime comes because of weakness and not feeling well. Patient resting comfortably hemodynamically stable. Two sisters in the room. Poor appetite not eating much as per sisters. no fevers. No cough. No headache. No runny nose or sore throat. Denies chest pain or shortness of breath. No nausea. No abdominal pain. Normal bowel and bladder movements. Past medical history. As mentioned above Past surgical history. Left knee arthroscopy. Carpal tunnel surgery. Colonoscopy. Excision of benign lesion lump in the back. Repair of ventral hernia. Status post pacemaker. Cholecystectomy. Social history. No smoking. No alcohol use. No drug use. Family history. Father had arthritis. Mother had arthritis. Uterus cancer. Diabetes. Sister has diabetes. Admission Exam Per Admitting Provider See H&P Discharge Exam Constitutional: Alert somewhat frail HEENT: Mucous membranes moist. Lungs: Clear to auscultation, decreased, no wheezes rales or rhonchi CV: S1-S2, regular Abdomen: Soft, nontender, nondistended Extremities: No significant edema Neuro: No focal deficits Psych: Cooperative, normal mood Updated Medication List Medication Instructions Recorded Confirmed Type Imdur 30 mg PO DAILY 02/17/25 02/17/25 History albuterol sulfate 90 mcg/actuation 2 puff inhalation QID 02/17/25 02/17/25 History aerosol inhaler (Ventolin HFA) allopurinol 100 mg tablet 100 mg PO DAILY 02/17/25 02/17/25 History apixaban 2.5 mg tablet (Eliquis) 2.5 mg PO BID 02/17/25 02/17/25 History atorvastatin 40 mg tablet (Lipitor) 40 mg PO DAILY 02/17/25 02/17/25 History brexpiprazole 1 mg tablet (Rexulti) 1 mg PO HS 02/17/25 02/17/25 History calcitriol 0.5 mcg capsule 0.5 mcg PO DAILY 02/17/25 02/17/25 History digoxin 125 mcg (0.125 mg) tablet 125 mcg PO DAILY 02/17/25 02/17/25 History docusate sodium 100 mg capsule 100 mg PO BID 02/17/25 02/17/25 History escitalopram oxalate 20 mg tablet 20 mg PO DAILY 02/17/25 02/17/25 History (Lexapro) famotidine 20 mg tablet 20 mg PO BID 02/17/25 02/17/25 History furosemide 20 mg tablet 20 mg PO DAILY 02/17/25 02/17/25 History iron,carbonyl 65 mg-vitamin C 125 1 tab PO DAILY 02/17/25 02/17/25 History mg tablet,delayed release (Vitron-C) levothyroxine 88 mcg tablet 88 mcg PO DAILY 02/17/25 02/17/25 History magnesium oxide 400 mg PO DAILY 02/17/25 02/17/25 History memantine 5 mg tablet 5 mg PO BID 02/17/25 02/17/25 History metoprolol succinate 25 mg PO BID 02/17/25 02/17/25 History Hospital Stay Data Consultations 02/16/25 21:28 ED Decision to Admit Stat Diagnostic Imagining Performed 02/16/25 20:04 CT head/brain wo con Stat Reviewed imaging, laboratory and diagnostic studies. Pertinent findings as below. Hemoglobin A1c 8.8% WBCs 10.9 Hemoglobin 13.2 Creatinine 1.67, this is her baseline Troponins flat and unremarkable for acute coronary syndrome Pending Results Patient Have Any Pending Studies at Discharge: No Discharge Instructions Given to Patient (Per Discharging Provider) Encourage you to eat your meals regularly Total Time Total Time Spent Total Time Spent (In Minutes): 25
[2025-02-18 13:18] VITALS: PULSE 61
[2025-02-18] MEDS ORDERED: ALBUTEROL HFA 8 GM INHALER INH SCH (19:00)
--- NOTE | 2025-02-20 08:45 | Electrocardiogram Report ---
Test Reason : Blood Pressure : */* mmHG Vent. Rate : 66 BPM Atrial Rate : 66 BPM P-R Int : 174 ms QRS Dur : 128 ms QT Int : 420 ms P-R-T Axes : * -53 120 degrees QTcB Int : 440 ms AV dual-paced rhythm Abnormal ECG When compared with ECG of 26-Jan-2025 13:33, Vent. rate has increased by 5 bpm Confirmed by Dimitri Talbot ([id number]) on 02/20/2025 8:45:00 AM Referred By: REFERRED SELF Confirmed By: Dimitri Talbot
== END 2025-02-18 13:57 | disposition home health service (06) | DRG 948 ==
LOC: ED 19:15 → 3N 22:55 → SUATTDRO 22:55 → 3N 02-17 00:16

== ENCOUNTER 2025-06-01 15:53 | Observation (INO) ==
[2025-06-01 16:37] LABS: Hematocrit (blood only) 39.8 % (37.0-47.0); Hemoglobin 13.0 g/dl (12.0-16.0); Immature Granulocytes # (auto) 0.04 K/uL (0.01-0.20); Immature Granulocytes % (auto) 0.5 %; Mean Corpuscular Hemoglobin 35.8 pg (25.0-34.0); Mean Corpuscular Volume 109.6 fL (80.0-100.0); Platelet Count 207 K/uL (130-400); RDW Standard Deviation 55.9 fL (36.4-46.3); Red Blood Count 3.63 M/uL (4.20-5.40); White Blood Count 8.82 K/ul (4.8-10.8)
--- NOTE | 2025-06-01 16:46 | Emergency Department Note ---
Impression & Plan Acute kidney injury superimposed on CKD, Dementia ED Provider Note Provider: Sanjiv Low MD CHIEF COMPLAINT: Nausea not eating well for 2 weeks HISTORY OF PRESENT ILLNESS: Patient is a 79-year-old female history of CHF, CKD, paroxysmal atrial fibrillation, tachybradycardia syndrome, CVA, diabetes, and hypertension maintained on digoxin and Eliquis presenting here today brought by family for evaluation of 2 weeks of nausea symptoms causing decreased intake. Patient states that when she has to eat she is quite nauseous. Has not vomited however. Denies falls or syncope. Limited intake and had a normal nondiarrheal bowel movement this morning. Denies significant abdominal pain. No head pain reported. Denies chest pain to me. Is feeling somewhat weak and fatigued. Has not talked with her primary doctor about this by her report. PAST MEDICAL HISTORY: As noted above MEDICATIONS: Reviewed home medications SOCIAL HISTORY: Lives at home with son PHYSICAL EXAM: GENERAL: alert and oriented in no acute distress on stretcher somewhat fatigued in appearance Head: normocephalic and atraumatic EYES: No injection, discharge or icterus. EOMI. NECK: Trachea midline. ENT: Mucous membranes pink and moist. LUNGS: Airway patent. No retractions. Breath sounds clear HEART: Regular rate and rhythm. No chest wall tenderness ABDOMEN: Soft and non-tender, without guarding or rebound. SKIN: Acyanotic, warm, dry, without rashes EXTREMITIES: Without swelling, tenderness or deformity NEUROLOGICAL: No focal deficits. No aphasia. No facial droop or slurred speech. EK bpm AV paced rhythm. No PVC. No acute ST segment elevation with nonspecific T wave flattening in lead I ST depression. CONTINUOUS CARDIAC MONITORING: was ordered and showed a heart rate of 60s bpm in AV paced rhythm with rare PVC Patient's laboratory studies and imaging reviewed. Differential includes Gastroenteritis, food borne illness, infections, appendicitis, diverticulitis, inflammatory bowel disease, obstruction, GI bleed, biliary pathology, volvulus, as well as other pathologies. IMPRESSION/MEDICAL DECISION MAKING: Patient with generalized fatigue. Denies abdominal pain reports nausea symptoms. Patient with underlying chronic medical issues. Does not appear an extremis however. No focal numbness or weakness. Given some Zofran although she denies significant nausea right now. Will complete a CT abdomen pelvis given her age and comorbidities with reports of nausea. Blood work here without significant anemia or leukocytosis. No severe electrolyte abnormalities noted. Did test her digoxin level to ensure not supratherapeutic likely causing symptoms. Urinalysis ordered pending collection to exclude UTI. LFTs and lipase completed to exclude hepatitis or pancreatitis. Does have an elevated creatinine from baseline of 2.4 today from baseline around 1.6-1.8. Given some gentle fluid hydration. CT abdomen pelvis without reported acute abnormality evidence of obstruction. Reassessment discussed with patient. Again received a gentle 500 cc IV fluid bolus here. Urinalysis completed without evidence of UTI. Discussed with patient findings. Unclear exact etiology of her nausea but certainly has reduced her intake enough to cause some component of JUNIOR. Patient's family later present. Discussed with them findings. Seems more like the patient just does not really want to eat as opposed to nausea and again the patient denies nausea now. Did have a hospitalization in January for similar episode. They wish for the patient be observed overnight for hydration. Reached out to the hospitalist service for observation. DIAGNOSIS: JUNIOR on CKD, dementia DISPOSITION: Hospitalist will evaluate. Patient and family at bedside agreeable. Past Med/Surg History Problem List (Updated 06/01/25 @ 18:05 by Sanjiv Low M.D.) Dementia (Acute) Acute kidney injury superimposed on CKD (Acute) Alteration in appetite Generalized weakness (Acute) Chronic systolic (congestive) heart failure Orthostatic hypotension Age-related physical debility Leukocytosis (Acute) Generalized weakness (Acute) Epistaxis Anemia (Acute) Elevated troponin (Acute) Cough (Acute) CHF (congestive heart failure) (Acute) SOB (shortness of breath) (Acute) Thickened endometrium Chronic CHF (Acute) Visual changes Dizziness (Acute) Acute confusion (Acute) Prolonged QT interval CHF (congestive heart failure) (Acute) Acute hypokalemia (Acute) Weakness (Acute) Hypomagnesemia (Acute) Pneumonia Cardiac pacemaker Nonischemic cardiomyopathy Dyspnea (Acute) Hypoxia (Acute) Pulmonary edema (Acute) Pleural effusion Aspiration pneumonia Pulmonary edema (Acute) Acute exacerbation of CHF (congestive heart failure) (Acute) Acute respiratory failure with hypoxia (Acute) CKD (chronic kidney disease), stage IV Tachycardia-bradycardia syndrome Paroxysmal atrial fibrillation Pneumonia (Acute) Hypoxia (Acute) Intractable nausea and vomiting (Acute) Paroxysmal atrial fibrillation with RVR (Acute) Atrial fibrillation with RVR Generalized weakness History of right MCA stroke Dyslipidemia Type 2 diabetes mellitus HTN (hypertension) (Chronic) Pain, dental (Acute) Atrial fibrillation (Chronic) Medical History Acute kidney injury superimposed on chronic kidney disease Defibrillator discharge Weakness Atrial fibrillation with rapid ventricular response Acute on chronic HFrEF (heart failure with reduced ejection fraction) Pneumonia Acute systolic (congestive) heart failure LBBB (left bundle branch block) History of adenomatous polyp of colon Degenerative disc disease, cervical Hearing loss [place]ADES (generalized anxiety disorder) GERD without esophagitis Vitamin D deficiency Hypertensive cardiomegaly Surgical History History of D&C History of excision of lesion Back - Dr. Tucker History of carpal tunnel surgery History of arthroplasty of left knee Family History Other Diabetes Heart disease Social History Smoking Status: Unknown if ever smoked Second Hand Exposure: No; Do You Dip or Chew Tobacco: No; Hx Alcohol Use: No Hx Substance Use: No Preferred Language: Upper Sorbian Communication Ability: Effective Hearing Ability: Hard of Hearing Gemologist Required: No Beliefs That Will Affect Care: None marital status: / Current Living Situation: Alone Current Living Situation Comment: home health nurse visits during day and son stays overnight for care Feels Safe at Home: Yes Assistive Devices: Walker Allergies Allergies Allergy/AdvReac Type Severity Reaction Status Date / Time codeine Allergy Intermediate PSCHO Verified 06/01/25 19:33 COMPLICATIONS PER [facility] Home Meds Home Medications Medication Instructions Recorded Confirmed albuterol sulfate 90 mcg/actuation 2 puff inhalation QID 02/17/25 06/01/25 aerosol inhaler (Ventolin HFA) allopurinol 100 mg tablet 100 mg PO QAM 02/17/25 06/01/25 apixaban 2.5 mg tablet (Eliquis) 2.5 mg PO [facility] 02/17/25 06/01/25 atorvastatin 40 mg tablet (Lipitor) 40 mg PO HS 02/17/25 06/01/25 brexpiprazole 1 mg tablet (Rexulti) 1 mg PO HS 02/17/25 06/01/25 calcitriol 0.5 mcg capsule 0.5 mcg PO [facility] 02/17/25 06/01/25 docusate sodium 100 mg capsule 100 mg PO [facility] 02/17/25 06/01/25 escitalopram oxalate 20 mg tablet 20 mg PO [facility] 02/17/25 06/01/25 (Lexapro) furosemide 20 mg tablet 20 mg PO QA 02/17/25 06/01/25 iron,carbonyl 65 mg-vitamin C 125 1 tab PO [facility] 02/17/25 06/01/25 mg tablet,delayed release (Vitron-C) levothyroxine 88 mcg tablet 88 mcg PO [facility] 02/17/25 06/01/25 magnesium oxide 400 mg PO [facility] 02/17/25 06/01/25 memantine 5 mg tablet 5 mg PO [facility] 02/17/25 06/01/25 acetaminophen 325 mg tablet 325 mg PO Q6 PRN as directed 06/01/25 06/01/25 amlodipine 2.5 mg tablet 2.5 mg PO HS 06/01/25 06/01/25 digoxin 125 mcg (0.125 mg) tablet 125 mcg PO 3XWK 06/01/25 06/01/25 famotidine 20 mg tablet 20 mg PO Q OTHER DAY 06/01/25 06/01/25 isosorbide mononitrate 30 mg 30 mg PO [facility] 06/01/25 06/01/25 tablet,extended release 24 hr metoprolol succinate 25 mg 25 mg PO [facility] 06/01/25 06/01/25 tablet,extended release 24 hr nitroglycerin 0.4 mg sublingual 0.4 mg sublingual UD PRN Chest Pain 06/01/25 06/01/25 tablet ondansetron 4 mg disintegrating 4 mg translingual Q8 PRN NAUSEA OR 06/01/25 06/01/25 tablet VOMITING sitagliptin phosphate 25 mg tablet 25 mg PO [facility] 06/01/25 06/01/25 (Januvia) tramadol 50 mg tablet 50 mg PO Q8 PRN PAIN,MODERATE 06/01/25 06/01/25 Results & Data (ED) Vital Signs Vital Signs - 24 hr 06/01/25 16:00 06/01/25 16:28 06/01/25 16:44 Temperature 36.7 C Temperature Source Temporal Artery Scan Pulse Rate 66 Pulse Rate [Right Finger] 64 Respiratory Rate 18 Respiratory Effort / Characteristics Non-Labored Spontaneous Respiratory Depth Normal Blood Pressure Blood Pressure [Right Arm] 115/51 L Blood Pressure Mean [Right Arm] 72 Pulse Oximetry 96 Oxygen Delivery Method Room Air Sepsis Recent Fever Within 48 Hours No Sepsis New/Unexplained Change in Mental Status N/A Sepsis Action Taken by Nursing No Action Required 06/01/25 18:00 06/01/25 20:39 Temperature Temperature Source Pulse Rate 62 Pulse Rate [Right Finger] 63 Respiratory Rate 21 18 Respiratory Effort / Characteristics Non-Labored Spontaneous Respiratory Depth Normal Blood Pressure 120/65 Blood Pressure [Right Arm] 137/51 L Blood Pressure Mean [Right Arm] 79 Pulse Oximetry 96 95 Oxygen Delivery Method Room Air Room Air Sepsis Recent Fever Within 48 Hours Sepsis New/Unexplained Change in Mental Status Sepsis Action Taken by Nursing Laboratory Data 06/01/25 16:10 06/01/25 16:10 Lab Results 06/01/25 06/01/25 06/01/25 Range/Units 16:10 16:15 17:38 WBC 8.82 (4.8-10.8) K/ul RBC 3.63 L (4.20-5.40) M/uL Hgb 13.0 (12.0-16.0) g/dl Hct 39.8 (37.0-47.0) % MCV 109.6 H (80.0-100.0) fL MCH 35.8 H (25.0-34.0) pg MCHC 32.7 (32.0-36.0) g/dL RDW Std Deviation 55.9 H (36.4-46.3) fL RDW Coeff of Etta 13.9 (11.5-14.5) % Plt Count 207 (130-400) K/uL MPV 11.3 (9.4-12.4) fL Immature Gran % (Auto) 0.5 % Neut % (Auto) 60.1 % Lymph % (Auto) 26.8 % [place] % (Auto) 10.8 % Eos % (Auto) 1.1 % Baso % (Auto) 0.7 % Neut # (Auto) 5.31 (1.40-6.50) K/uL Lymph # (Auto) 2.36 (1.20-3.40) K/uL [place] # (Auto) 0.95 H (0.11-0.59) K/uL Eos # (Auto) 0.10 (0.00-0.50) K/uL Baso # (Auto) 0.06 (0.00-0.20) K/uL Immature Gran # (Auto) 0.04 (0.01-0.20) K/uL Sodium 144 (136-145) mmol/L Potassium 3.8 (3.5-5.1) mmol/L Chloride 105 (98-107) mmol/L Carbon Dioxide 31 (21-32) mmol/L Anion Gap 8 (3-11) BUN 31 H (6-23) mg/dl Creatinine 2.41 H (0.6-1.2) mg/dl Est Cr Clr Drug Dosing Not Reportable eGFR 19.94 BUN/Creatinine Ratio 12.9 (10-20) Glucose 118 H (70-99(Fasting)) mg/dl Calcium 11.3 H (8.6-10.3) mg/dl Total Bilirubin 1.0 (0.2-1.0) mg/dl AST 14 (13-39) U/L ALT 10 (7-52) U/L Alkaline Phosphatase 114 H (34-104) U/L Troponin I High Sens 16.3 H (0-14) pg/ml Total Protein 7.5 (6.0-8.3) gm/dl Albumin 4.9 (3.4-5.0) gm/dl Globulin 2.6 (2.5-4.0) gm/dl Albumin/Globulin Ratio 1.9 (0.9-2) Lipase 65 (11-82) U/L Urine Color Yellow Urine Appearance Clear (Clear) Urine pH 6.0 (4.5-7.5) Ur Specific [place] 1.011 (1.000-1.030) Urine Protein Negative (Negative) Urine Glucose (UA) Negative (Negative) Urine Ketones Negative (Negative) Urine Blood Negative (Negative) Urine Nitrite Negative (Negative) Urine Bilirubin Negative (Negative) Urine Urobilinogen Negative (Negative) Ur Leukocyte Esterase Negative (Negative) Urine Comment Digoxin 0.8 (0.8-2.0) ng/ml SARS-CoV-2 (PCR) NEGATIVE (Negative) Influenza Type A (PCR) Negative (Neg) Influenza Type B (PCR) Negative (Neg) RSV (RT-PCR) Negative (Neg) Administered Medications Discontinued Medications Sodium Chloride (Nss) 500 mls @ 999 mls/hr IV .Q31M ONE Stop: 06/01/25 17:31 Last Infusion: 06/01/25 18:06 Dose: Infused Documented By: Admin: 06/01/25 17:20 Dose: 999 mls/hr Documented By: CTK Ondansetron HCl (Ondansetron Inj 2 Mg/Ml 2 Ml Vial) 4 mg IV NOW STA Stop: 06/01/25 16:34 Last Admin: 06/01/25 16:47 Dose: 4 mg Documented By: CTK Imaging Data Radiologist's Impression: Abdomen/Pelvis CT 06/01/25 16:33 EXAMINATION: CT of the abdomen and pelvis performed without contrast TECHNIQUE: Helical CT images from the lung bases through the symphysis pubis were obtained without contrast. Coronal and sagittal reformatted images were generated at a workstation for further assessment. Dose reduction techniques were achieved by using automatic exposure control and/or adjustment of mA and/or kV according to patient size and/or use of iterative reconstruction technique. COMPARISON: None HISTORY: Abdominal pain FINDINGS: Lower chest: No consolidation. No pleural effusion or pneumothorax. Liver: No suspicious liver lesions. Gallbladder: Cholecystectomy. Spleen: Normal size. Pancreas: No suspicious pancreatic lesions. The pancreatic duct is not dilated. Adrenal glands: No adrenal nodules. Kidneys: No hydronephrosis or obstructing renal stones. Scattered bilateral renal cysts. Bladder / Pelvic organs: Unremarkable. Bowel: No bowel obstruction. No abnormal bowel wall thickening. The appendix is unremarkable. Left colonic diverticulosis without diverticulitis. Lymph nodes: No retroperitoneal, mesenteric, or pelvic lymphadenopathy. Peritoneum / Retroperitoneum: No free fluid or air within the abdomen. Vessels: No infrarenal aortic aneurysm. Heavy aortoiliac calcification. Bones and soft tissues: No suspicious lesion in the bones. Degenerative changes of the spine. IMPRESSION: No acute finding in the abdomen or pelvis. Electronically signed by Lionel Boston 06-01-2025 5:38 PM Discharge Plan Visit Data Chief Complaint: Illness Stated Complaint: Nausea ED Provider: Sanjiv Low Discharge Problem: Acute kidney injury superimposed on CKD, Dementia Patient Disposition: Being Evaluated by Hospitalist Condition: Fair Discharge Instructions Interventions: ED Discharge Assessment Last Done: 06/01/25 20:39 Forms Stand Alone Forms: [employer] Prescriptions Prescriptions: No Action atorvastatin [Lipitor] 40 mg Tablet 40 mg PO HS allopurinol 100 mg Tablet 100 mg PO QAM levothyroxine 88 mcg Tablet 88 mcg PO QAM calcitriol 0.5 mcg Capsule 0.5 mcg PO QAM furosemide 20 mg Tablet 20 mg PO QAM escitalopram oxalate [Lexapro] 20 mg Tablet 20 mg PO QAM memantine 5 mg Tablet 5 mg PO [facility] Eliquis 2.5 mg Tablet 2.5 mg PO [facility] Vitron-C 65 mg iron- 125 mg Tablet,Delayed Release (Dr/Ec) 1 tab PO QAM Rexulti 1 mg tablet 1 mg PO HS magnesium oxide 400 mg magnesium Tablet 400 mg PO QAM docusate sodium 100 mg capsule 100 mg PO [facility] albuterol sulfate [Ventolin HFA] 90 mcg/actuation HFA aerosol inhaler 2 puff INHALATION QID famotidine 20 mg tablet 20 mg PO Q OTHER DAY metoprolol succinate 25 mg tablet extended release 24 hr 25 mg PO [facility] isosorbide mononitrate 30 mg tablet extended release 24 hr 30 mg PO QAM Januvia 25 mg tablet 25 mg PO QAM acetaminophen 325 mg Tablet 325 mg PO Q6 PRN (Reason: as directed) amlodipine 2.5 mg tablet 2.5 mg PO HS nitroglycerin 0.4 mg tablet, sublingual 0.4 mg sublingual UD PRN (Reason: Chest Pain) Rx Instructions: 1 tab under tongue every 5 minutes as needed for pain,chest digoxin 125 mcg (0.125 mg) tablet 125 mcg PO [id number] Rx Instructions: take daily on MONDAY,MONDAY,MONDAY tramadol 50 mg tablet 50 mg PO Q8 PRN (Reason: PAIN,MODERATE) ondansetron 4 mg tablet,disintegrating 4 mg translingual Q8 PRN (Reason: NAUSEA OR VOMITING) Referrals Referrals: Kasandra Antunez, [Primary Care Provider] -
[2025-06-01] MEDS: ONDANSETRON INJ 2 MG/ML 2 ML VIAL IV STA (16:47)
[2025-06-01 16:50] LABS: Anion Gap 8 (3-11); Bilirubin,Total 1.0 mg/dl (0.2-1.0); Calcium 11.3 mg/dl (8.6-10.3); Carbon Dioxide 31 mmol/L (21-32); Chloride 105 mmol/L (98-107); Potassium 3.8 mmol/L (3.5-5.1); Sodium 144 mmol/L (136-145)
[2025-06-01 16:56] LABS: Alanine Aminotransferase 10 U/L (7-52); Albumin Globulin Ratio 1.9 (0.9-2); Alkaline Phosphatase 114 U/L (34-104); Blood Urea Nitrogen 31 mg/dl (6-23); Globulin 2.6 gm/dl (2.5-4.0); Glucose 118 mg/dl (70-99(Fasting)); Lipase 65 U/L (11-82); Total Protein 7.5 gm/dl (6.0-8.3)
[2025-06-01] MEDS: SODIUM CHLORIDE 0.9% 500 ML IV ONE (17:20)
[2025-06-01 17:33] LABS: Influenza A virus by PCR Negative (Neg); Influenza B virus by PCR Negative (Neg); SARS CoV2 RNA(COVID-19) Ceph NEGATIVE (Negative)
--- NOTE | 2025-06-01 17:41 | CT Scan Report ---
EXAMINATION: CT of the abdomen and pelvis performed without contrast TECHNIQUE: Helical CT images from the lung bases through the symphysis pubis were obtained without contrast. Coronal and sagittal reformatted images were generated at a workstation for further assessment. Dose reduction techniques were achieved by using automatic exposure control and/or adjustment of mA and/or kV according to patient size and/or use of iterative reconstruction technique. COMPARISON: None HISTORY: Abdominal pain FINDINGS: Lower chest: No consolidation. No pleural effusion or pneumothorax. Liver: No suspicious liver lesions. Gallbladder: Cholecystectomy. Spleen: Normal size. Pancreas: No suspicious pancreatic lesions. The pancreatic duct is not dilated. Adrenal glands: No adrenal nodules. Kidneys: No hydronephrosis or obstructing renal stones. Scattered bilateral renal cysts. Bladder / Pelvic organs: Unremarkable. Bowel: No bowel obstruction. No abnormal bowel wall thickening. The appendix is unremarkable. Left colonic diverticulosis without diverticulitis. Lymph nodes: No retroperitoneal, mesenteric, or pelvic lymphadenopathy. Peritoneum / Retroperitoneum: No free fluid or air within the abdomen. Vessels: No infrarenal aortic aneurysm. Heavy aortoiliac calcification. Bones and soft tissues: No suspicious lesion in the bones. Degenerative changes of the spine. IMPRESSION: No acute finding in the abdomen or pelvis. Electronically signed by Lionel Boston 06-01-2025 5:38 PM
[2025-06-01 17:49] LABS: Appearance Urine Clear (Clear); Glucose Urine UA Negative (Negative)
--- NOTE | 2025-06-01 18:24 | History & Physical Report ---
Date of Service June 01, 2025 Assessment & Plan (1) Alteration in appetite: (2) Generalized weakness: Plan Ms. Gabriel is a 79-year-old female with a past medical history of nonischemic cardiomyopathy, EF <25%, moderate MR, tachybradycardia syndrome s/p pacemaker, paroxysmal atrial fibrillation on Eliquis, CKD IV, prediabetes, HLD, anxiety, history of CVA, dementia, GERD, Generalized anxiety disorder, prior amiodarone toxicity, dementia admitted to med/surg for JUNIOR on CKD. #Poor po intake #Generalized weakness suspect 2/2 progression of dementia given reports of reduce drive for food/drink UA normal flu/covid negative no leukocytosis or infectious symptoms s/p 500cc bolus encourage po intake hold on fluids, hold lasix Palliative consult in am to help guide conversations of dementia progression--sisters report frustration with patient's son #JUNIOR on CKD stage IV Creatinine 1.8 around baseline Will follow labs, s/p IVF encourage po cautious use of IVF hold lasix #Dementia 2/2 vascular +/- Alzheimers #Prior MCA stroke 2019 #Depression continue namenda bid on Rexulti, family unable to bring in delirium precautions, reorientation as able fall precautions Continue lexapro #TBS s/p ppm #Nonischemic cardiomyopathy, HFrEF 25-50% #AF s/p ablation Continue digoxin MWF continue metoprolol 25 bid continue imdur 30mg daily continue elquis 2.5mg bid continue statin hold lasix at this time iso poor po intake #DMTII hold Januvia SSI while admitted A1C in am #Mild elevation of troponin Has some Chronic elevation, lower than baseline, no acs concerns #GERD On famotidine #Hypothyroidism On Synthyroid #Hyperlipidemia On statin #History of gout On allopurinol DVT prophylaxis On Eliquis Disposition Medical floor CODE STATUS DNR DNI Admission and Anticipated Discharge Date Admission Date: Time spent evaluating patient, direct bedside care, chart review, placing orders, interpretation of diagnostic studies, discussion with consultants, patient, and family members, as well as other required patient management activities is 60 minutes. History of Present Illness Chief Complaint: poor appetite Primary Care Provider: Kasandra Antunez DO Ms. Gabriel is a 79-year-old female with a past medical history of nonischemic cardiomyopathy, EF <25%, moderate MR, tachybradycardia syndrome s/p pacemaker, paroxysmal atrial fibrillation on Eliquis, CKD IV, prediabetes, HLD, anxiety, history of CVA, dementia, GERD, Generalized anxiety disorder, prior amiodarone toxicity who presented to [facility] ED due to poor appetite and weakness. Patient states she just hasn't wanted or remembered to eat or drink. She lives with her son who has caregiver support during the day and he is there at night. Her two sisters were present at time of exam. There were no reports of nausea, vomiting, chest pain, palpitations, abdominal pain, or other acute concerns. Patient states sometimes she "just doesn't want it." Home Nurse Celeste has talked to family about hospice and trying to get a hospice nurse for home, but the sisters thought hospice meant "they just come and check vitals more often." Explained hospice being more support to allow patient to stay home and treat her symptoms--explained that as dementia progresses drive to eat and drink diminishes, and goals become more based around comfort. Patient denies urinary or bowel symptoms. Sisters agree this is in line with patient wishes, but son is caregiver and decision maker and he "panics" when the patient doesn't eat or drink, often sending her to the hospital. Family and patient open to palliative discussion to help understand the progression of dementia and applicability of hospice Patient denies tobacco etoh or illicit use Patient engages in conversation but notable very short term memory issues, difficulty with some questions In the ED, vitals were notable for BP of 110s-130s HR of 60s, and O2 sat of 96 on room air, afebrile Imaging revealed no acute abnormalities on CT imaging Labs with JUNIOR EKG AV paced, qtc 416 ED interventions: 500 cc bolus zofran Patient to be admitted to med/[facility] [place] for further evaluation and management of dehydration Allergies Allergy/AdvReac Type Severity Reaction Status Date / Time codeine Allergy Intermediate PSCHO Verified 06/01/25 19:33 COMPLICATIONS PER [facility] Home Medications Medication Instructions Recorded Confirmed Type albuterol sulfate 90 mcg/actuation 2 puff inhalation QID 02/17/25 06/01/25 History aerosol inhaler (Ventolin HFA) allopurinol 100 mg tablet 100 mg PO QAM 02/17/25 06/01/25 History apixaban 2.5 mg tablet (Eliquis) 2.5 mg PO [facility] 02/17/25 06/01/25 History atorvastatin 40 mg tablet (Lipitor) 40 mg PO HS 02/17/25 06/01/25 History brexpiprazole 1 mg tablet (Rexulti) 1 mg PO 02/17/25 06/01/25 History calcitriol 0.5 mcg capsule 0.5 mcg PO [facility] 02/17/25 06/01/25 History docusate sodium 100 mg capsule 100 mg PO [facility] 02/17/25 06/01/25 History escitalopram oxalate 20 mg tablet 20 mg PO [facility] 02/17/25 06/01/25 History (Lexapro) furosemide 20 mg tablet 20 mg PO [facility] 02/17/25 06/01/25 History iron,carbonyl 65 mg-vitamin C 125 1 tab PO [facility] 02/17/25 06/01/25 History mg tablet,delayed release (Vitron-C) levothyroxine 88 mcg tablet 88 mcg PO [facility] 02/17/25 06/01/25 History magnesium oxide 400 mg PO [facility] 02/17/25 06/01/25 History memantine 5 mg tablet 5 mg PO [facility] 02/17/25 06/01/25 History acetaminophen 325 mg tablet 325 mg PO Q6 PRN as directed 06/01/25 06/01/25 History amlodipine 2.5 mg tablet 2.5 mg PO 06/01/25 06/01/25 History digoxin 125 mcg (0.125 mg) tablet 125 mcg PO 3XWK 06/01/25 06/01/25 History famotidine 20 mg tablet 20 mg PO Q OTHER DAY 06/01/25 06/01/25 History isosorbide mononitrate 30 mg 30 mg PO [facility] 06/01/25 06/01/25 History tablet,extended release 24 hr metoprolol succinate 25 mg 25 mg PO [facility] 06/01/25 06/01/25 History tablet,extended release 24 hr nitroglycerin 0.4 mg sublingual 0.4 mg sublingual UD PRN Chest Pain 06/01/25 06/01/25 History tablet ondansetron 4 mg disintegrating 4 mg translingual Q8 PRN NAUSEA OR 06/01/25 06/01/25 History tablet VOMITING sitagliptin phosphate 25 mg tablet 25 mg PO [facility] 06/01/25 06/01/25 History (Januvia) tramadol 50 mg tablet 50 mg PO Q8 PRN PAIN,MODERATE 06/01/25 06/01/25 History Past Med/Surg History Problem List (Updated 06/01/25 @ 18:05 by Sanjiv Low M.D.) Dementia (Acute) Acute kidney injury superimposed on CKD (Acute) Alteration in appetite Generalized weakness (Acute) Chronic systolic (congestive) heart failure Orthostatic hypotension Age-related physical debility Leukocytosis (Acute) Generalized weakness (Acute) Epistaxis Anemia (Acute) Elevated troponin (Acute) Cough (Acute) CHF (congestive heart failure) (Acute) SOB (shortness of breath) (Acute) Thickened endometrium Chronic CHF (Acute) Visual changes Dizziness (Acute) Acute confusion (Acute) Prolonged QT interval CHF (congestive heart failure) (Acute) Acute hypokalemia (Acute) Weakness (Acute) Hypomagnesemia (Acute) Pneumonia Cardiac pacemaker Nonischemic cardiomyopathy Dyspnea (Acute) Hypoxia (Acute) Pulmonary edema (Acute) Pleural effusion Aspiration pneumonia Pulmonary edema (Acute) Acute exacerbation of CHF (congestive heart failure) (Acute) Acute respiratory failure with hypoxia (Acute) CKD (chronic kidney disease), stage IV Tachycardia-bradycardia syndrome Paroxysmal atrial fibrillation Pneumonia (Acute) Hypoxia (Acute) Intractable nausea and vomiting (Acute) Paroxysmal atrial fibrillation with RVR (Acute) Atrial fibrillation with RVR Generalized weakness History of right MCA stroke Dyslipidemia Type 2 diabetes mellitus HTN (hypertension) (Chronic) Pain, dental (Acute) Atrial fibrillation (Chronic) Medical History Acute kidney injury superimposed on chronic kidney disease Defibrillator discharge Weakness Atrial fibrillation with rapid ventricular response Acute on chronic HFrEF (heart failure with reduced ejection fraction) Pneumonia Acute systolic (congestive) heart failure LBBB (left bundle branch block) History of adenomatous polyp of colon Degenerative disc disease, cervical Hearing loss MELQUIADES (generalized anxiety disorder) GERD without esophagitis Vitamin D deficiency Hypertensive cardiomegaly Surgical History History of D&C History of excision of lesion Back - Dr. Tucker History of carpal tunnel surgery History of arthroplasty of left knee Family History Other Diabetes Heart disease Social History Smoking Status: Unknown if ever smoked Second Hand Exposure: No; Do You Dip or Chew Tobacco: No; Hx Alcohol Use: No Hx Substance Use: No Preferred Language: Kosovan Communication Ability: Effective Hearing Ability: Hard of Hearing [employer] Professor Required: No Beliefs That Will Affect Care: None marital status: / Current Living Situation: Alone Current Living Situation Comment: home health nurse visits during day and son stays overnight for care Feels Safe at Home: Yes Assistive Devices: Walker Review of Systems Review of Systems: Constitutional: (-) fever/chills, (-) recent loss of weight, (+) appetite changes, (-) night sweats. Head: (-) headache, (-) dizziness. Eye: (-) blurring of vision, (-) double vision, (-) redness. Ear: (-) hearing loss, (-) discharge, (-) vertigo Nose: (-) discharge, (-) bleeding, (-) congestion, (-) post nasal drip. Throat: (-) sore throat, (-) hoarseness of voice, (-) odynophagia. Cardiovascular: (-) chest pain, (-) palpitations, (-) syncope, (-) orthopnea, (- ) PND, (-) leg swelling. Respiratory: (-) shortness of breath, (-) cough, (-) wheezing, (-) hemoptysis. Neuro: (-) weakness in extremities, (-) numbness, (-) tingling, (-) tremor. Gastrointestinal: (-) belly pain, (-) belly distension, (-) nausea, (-) vomiting, (-) diarrhea, (-) constipation, Genitourinary: (-) hematuria, (-) dysuria, (-) polyuria, (-) hesitancy, (-) frequency, (-) urinary incontinence. Musculoskeletal: (-) myalgia, (-) arthralgia. Skin: (-) rashes. Endocrine: (-) heat/cold intolerance. Psychiatry: (-) depression, (-) hallucination. Physical Exam Physical Exam: GENERAL APPEARANCE: AxOx2, generally well-appearing elderly woman pleasant and conversational, no acute distress. HEENT: NC, AT. MMM. EOMI, clear conjunctiva, oropharynx clear. NECK: Supple without lymphadenopathy. No stiffness or restricted ROM. HEART: Normal rate and regular rhythm, normal S1/S1, no m/r/g LUNGS: CTAB, moving air well. No crackles or wheezes are heard. ABDOMEN: Soft, nontender, nondistended with good bowel sounds heard. BACK: No CVAT, no obvious deformity. EXTREMITIES: Without cyanosis, clubbing or edema. NEUROLOGICAL: Grossly nonfocal. Alert and oriented, moving all 4 extremities. CN not formally tested but appear grossly intact. Skin: Warm and dry without any rash. Results & Data Results & Data Vital Signs (Past 12 Hours) Vital Signs Temp Pulse Pulse Resp BP Pulse Ox O2 Del Method 06/01/25 18:00 63 21 137/51 L 96 Room Air 06/01/25 16:44 64 18 115/51 L 96 Room Air 06/01/25 16:28 66 06/01/25 16:00 36.7 C Laboratory Results Short CBC 06/01/25 Range/Units 16:10 WBC 8.82 (4.8-10.8) K/ul Hgb 13.0 (12.0-16.0) g/dl Hct 39.8 (37.0-47.0) % Plt Count 207 (130-400) K/uL BMP 06/01/25 16:10 Sodium 144 Potassium 3.8 Chloride 105 Carbon Dioxide 31 BUN 31 H Creatinine 2.41 H Glucose 118 H Calcium 11.3 H Liver Function 06/01/25 Range/Units 16:10 Total Bilirubin 1.0 (0.2-1.0) mg/dl AST 14 (13-39) U/L ALT 10 (7-52) U/L Alkaline Phosphatase 114 H (34-104) U/L Albumin 4.9 (3.4-5.0) gm/dl Urine 06/01/25 Range/Units 17:38 Urine Color Yellow Urine Appearance Clear (Clear) Urine pH 6.0 (4.5-7.5) Ur Specific [place] 1.011 (1.000-1.030) Urine Protein Negative (Negative) Urine Glucose (UA) Negative (Negative) Medications Administered Home Medications Medication Instructions Recorded Confirmed Last Taken Imdur 30 mg PO DAILY 02/17/25 02/17/25 Unknown albuterol sulfate 90 mcg/actuation 2 puff inhalation QID 02/17/25 02/17/25 Unknown aerosol inhaler (Ventolin HFA) allopurinol 100 mg tablet 100 mg PO DAILY 02/17/25 02/17/25 Unknown apixaban 2.5 mg tablet (Eliquis) 2.5 mg PO BID 02/17/25 02/17/25 Unknown atorvastatin 40 mg tablet (Lipitor) 40 mg PO DAILY 02/17/25 02/17/25 Unknown brexpiprazole 1 mg tablet (Rexulti) 1 mg PO HS 02/17/25 06/01/25 06/01/25 calcitriol 0.5 mcg capsule 0.5 mcg PO DAILY 02/17/25 02/17/25 Unknown digoxin 125 mcg (0.125 mg) tablet 125 mcg PO DAILY 02/17/25 02/17/25 Unknown docusate sodium 100 mg capsule 100 mg PO BID 02/17/25 02/17/25 Unknown escitalopram oxalate 20 mg tablet 20 mg PO DAILY 02/17/25 02/17/25 Unknown (Lexapro) famotidine 20 mg tablet 20 mg PO BID 02/17/25 02/17/25 Unknown furosemide 20 mg tablet 20 mg PO DAILY 02/17/25 02/17/25 Unknown iron,carbonyl 65 mg-vitamin C 125 1 tab PO DAILY 02/17/25 02/17/25 Unknown mg tablet,delayed release (Vitron-C) levothyroxine 88 mcg tablet 88 mcg PO DAILY 02/17/25 02/17/25 Unknown magnesium oxide 400 mg PO DAILY 02/17/25 02/17/25 Unknown memantine 5 mg tablet 5 mg PO BID 02/17/25 02/17/25 Unknown metoprolol succinate 25 mg PO BID 02/17/25 02/17/25 Unknown
[2025-06-01] MEDS ORDERED: ACETAMINOPHEN 325 MG TAB PO PRN (21:02)
[2025-06-01] MEDS ORDERED: GLUCAGON FOR INJ 1 MG VIAL SQ PRN (21:02)
[2025-06-01] MEDS ORDERED: CARBOHYDRATES FOR HYPOGLYCEMIA PO PRN (21:02)
[2025-06-01] MEDS ORDERED: POLYETHYLENE (MIRALAX) 17 GM PACK PO PRN (21:02)
[2025-06-01] MEDS ORDERED: GLUCOSE 40% GEL 15 GM TUBE PO PRN (21:02)
[2025-06-01] MEDS ORDERED: ONDANSETRON 4 MG OD TAB PO PRN (21:02)
[2025-06-01] MEDS ORDERED: GLUCOSE 10 TAB/TUBE PO PRN (21:02)
[2025-06-01] MEDS ORDERED: MAGNESIUM HYDROXIDE SUSP 30 ML UDC PO PRN (21:02)
[2025-06-01] MEDS ORDERED: DEXTROSE 50% 50 ML SYRINGE IV PRN (21:02)
[2025-06-01] MEDS: Patient's HEIGHT &/or WEIGHT Needed STA (21:10)
[2025-06-01] MEDS: METOPROLOL SUCC 25MG EXT REL TAB PO SCH (22:16)
[2025-06-01] MEDS: ATORVASTATIN 40 MG TAB PO SCH (22:17)
[2025-06-01] MEDS: APIXABAN 2.5 MG TAB PO SCH (22:17)
[2025-06-01] MEDS: MEMANTINE HCL 5 MG TAB PO SCH (22:17)
[2025-06-01] MEDS: DOCUSATE SODIUM 100 MG CAP PO SCH (22:17)
[2025-06-01] MEDS: MELATONIN 3 MG TAB PO PRN (22:17)
[2025-06-01] MEDS: INSULIN ASPART PER UNIT CHARGE SC SCH (22:29)
[2025-06-01] MEDS: ALBUTEROL HFA 8 GM INHALER INH SCH (22:37)
[2025-06-02] MEDS: LEVOTHYROXINE SODIUM 88 MCG TABLET PO SCH (05:18)
[2025-06-02 06:49] LABS: Hematocrit (blood only) 34.7 % (37.0-47.0); Hemoglobin 11.6 g/dl (12.0-16.0); Mean Corpuscular Hemoglobin 35.9 pg (25.0-34.0); Mean Corpuscular Volume 107.4 fL (80.0-100.0); Platelet Count 166 K/uL (130-400); RDW Standard Deviation 54.4 fL (36.4-46.3); Red Blood Count 3.23 M/uL (4.20-5.40); White Blood Count 8.57 K/ul (4.8-10.8)
[2025-06-02 07:06] LABS: Anion Gap 8.0 (3-11); Blood Urea Nitrogen 26.0 mg/dl (6-23); Calcium 10.4 mg/dl (8.6-10.3); Carbon Dioxide 28.0 mmol/L (21-32); Chloride 108.0 mmol/L (98-107); Creatinine Clr Calc Pharmacy 18.1 ml/min; Glucose 96.0 mg/dl (70-99(Fasting)); Magnesium 2.2 mg/dl (1.7-2.4); Potassium 3.3 mmol/L (3.5-5.1); Sodium 144.0 mmol/L (136-145)
[2025-06-02 07:33] LABS: Hemoglobin A1C 6.1 % (4.5-5.6)
--- NOTE | 2025-06-02 08:26 | Electrocardiogram Report ---
Test Reason : Blood Pressure : */* mmHG Vent. Rate : 60 BPM Atrial Rate : 60 BPM P-R Int : 174 ms QRS Dur : 132 ms QT Int : 416 ms P-R-T Axes : 146 -55 129 degrees QTcB Int : 416 ms AV dual-paced rhythm Abnormal ECG When compared with ECG of 16-Feb-2025 20:14, Vent. rate has decreased by 6 bpm Confirmed by Rebekah Connor (José) on 06/02/2025 8:25:37 AM Referred By: Confirmed By: Rebekah Connor
[2025-06-02] MEDS: CALCITRIOL 0.25 MCG CAPSULE PO SCH (08:53)
[2025-06-02] MEDS: ESCITALOPRAM OXALATE 20 MG TAB PO SCH (08:54)
[2025-06-02] MEDS: ISOSORBIDE MONO EXTENDED REL 30 MG TABCR PO SCH (08:54)
[2025-06-02] MEDS: MAGNESIUM OXIDE 400 MG TAB PO SCH (08:54)
[2025-06-02] MEDS: FAMOTIDINE 20 MG TAB PO SCH (08:56)
--- NOTE | 2025-06-02 08:57 | Palliative Care Consultation ---
Date of Consultation June 02, 2025 Assessment & Plan (1) Palliative care by specialist: Met with pt and her sisters, Marino, at bedside. Introduced Palliative Medicine and explained our role in advanced care planning, symptom management and navigation through the progression of life limiting disease. Patient and/or family were receptive to palliative services for goals of care discussions. Reviewed we are different from hospice, a home health nurse visiting service. (2) Counseling regarding goals of care: Met with pt's sisters at bedside. They shared that the pt lives with her son in a 2 bedroom apartment and they plan to take her back home with hospice. They shared that they would like to take her back home today, but do not have a clear understanding of plan of care. I discussed need for GOC discussion to decide most appropriate plan for discharge. We discussed that the son Rajeev Durant" would be the pt's proxy for medical decisions and they suppllied his contact information. I attempted to call Dario on both home and cell numbers and left voice mail. Pt' sister Bere shared that Dario does not work and "does not care for himself very well". Bere denied any concerns about Dario caring for patient properly and shared that she would "make him shower and come to hospital" for meeting. He does not drive, so they agreed to bring him to bedside tomorrow at 11am for GOC discussion. (3) Encounter for assessment of decision-making capacity: Patient exhibits current lack of decisional capacity based on the inability to convey understanding of personal PMHx, current medical condition, treatment options nor the risks / benefits/ potential outcomes of accepting/declining those options, and inability to make decisions based on such knowledge. Hospital does not have written documentation of patient wishes concerning her chosen proxy for medical decisions. Per PA [id number], in absence of written documentation of patient wishes, pt's proxy for medical decisions would be her son Rajeev Gabriel . Pt DOES require a proxy for medical decisions. Plan Plan for GOC discussion with family 06/03 at 11:00 History of Present Illness Reason for Consultation: goals of care Requesting Physician: Zach Snyder MD Attending Physician: Zach Snyder MD History of Present Illness Ms. Gabriel is a 79-year-old female with a past medical history of nonischemic cardiomyopathy, EF <25%, moderate MR, tachybradycardia syndrome s/p pacemaker, paroxysmal atrial fibrillation on Eliquis, CKD IV, prediabetes, HLD, anxiety, history of CVA, dementia, GERD, Generalized anxiety disorder, prior amiodarone toxicity who presented to [facility] ED on 06/01/25 due to poor appetite and weakness. Allergies Allergy/AdvReac Type Severity Reaction Status Date / Time codeine Allergy Intermediate PSCHO Verified 06/01/25 19:33 COMPLICATIONS PER [facility] Home Medications Medication Instructions Recorded Confirmed Type albuterol sulfate 90 mcg/actuation 2 puff inhalation QID 02/17/25 06/01/25 History aerosol inhaler (Ventolin HFA) allopurinol 100 mg tablet 100 mg PO QA 02/17/25 06/01/25 History apixaban 2.5 mg tablet (Eliquis) 2.5 mg PO [facility] 02/17/25 06/01/25 History atorvastatin 40 mg tablet (Lipitor) 40 mg PO HS 02/17/25 06/01/25 History brexpiprazole 1 mg tablet (Rexulti) 1 mg PO HS 02/17/25 06/01/25 History calcitriol 0.5 mcg capsule 0.5 mcg PO QA 02/17/25 06/01/25 History docusate sodium 100 mg capsule 100 mg PO [facility] 02/17/25 06/01/25 History escitalopram oxalate 20 mg tablet 20 mg PO QA 02/17/25 06/01/25 History (Lexapro) furosemide 20 mg tablet 20 mg PO QA 02/17/25 06/01/25 History iron,carbonyl 65 mg-vitamin C 125 1 tab PO QA 02/17/25 06/01/25 History mg tablet,delayed release (Vitron-C) levothyroxine 88 mcg tablet 88 mcg PO QA 02/17/25 06/01/25 History magnesium oxide 400 mg PO [facility] 02/17/25 06/01/25 History memantine 5 mg tablet 5 mg PO [facility] 02/17/25 06/01/25 History acetaminophen 325 mg tablet 325 mg PO Q6 PRN as directed 06/01/25 06/01/25 History amlodipine 2.5 mg tablet 2.5 mg PO HS 06/01/25 06/01/25 History digoxin 125 mcg (0.125 mg) tablet 125 mcg PO 3XWK 06/01/25 06/01/25 History famotidine 20 mg tablet 20 mg PO Q OTHER DAY 06/01/25 06/01/25 History isosorbide mononitrate 30 mg 30 mg PO QAM 06/01/25 06/01/25 History tablet,extended release 24 hr metoprolol succinate 25 mg 25 mg PO [facility] 06/01/25 06/01/25 History tablet,extended release 24 hr nitroglycerin 0.4 mg sublingual 0.4 mg sublingual UD PRN Chest Pain 06/01/25 06/01/25 History tablet ondansetron 4 mg disintegrating 4 mg translingual Q8 PRN NAUSEA OR 06/01/25 06/01/25 History tablet VOMITING sitagliptin phosphate 25 mg tablet 25 mg PO QAM 06/01/25 06/01/25 History (Januvia) tramadol 50 mg tablet 50 mg PO Q8 PRN PAIN,MODERATE 06/01/25 06/01/25 History Patient History Medical History Acute kidney injury superimposed on chronic kidney disease Defibrillator discharge Weakness Atrial fibrillation with rapid ventricular response Acute on chronic HFrEF (heart failure with reduced ejection fraction) Pneumonia Acute systolic (congestive) heart failure LBBB (left bundle branch block) History of adenomatous polyp of colon Degenerative disc disease, cervical Hearing loss MELQUIADES (generalized anxiety disorder) GERD without esophagitis Vitamin D deficiency Hypertensive cardiomegaly Surgical History History of D&C History of excision of lesion Back - Dr. Tucker History of carpal tunnel surgery History of arthroplasty of left knee Family History Other Diabetes Heart disease Social History Smoking Status: Never smoker Second Hand Exposure: No; Do You Dip or Chew Tobacco: No; Tobacco Cessation Education Requested by Patient: No Hx Alcohol Use: No Hx Substance Use: No Preferred Language: Italian Communication Ability: Effective Hearing Ability: Hard of Hearing Labor Contractor Required: No Beliefs That Will Affect Care: None marital status: / Current Living Situation: Alone Current Living Situation Comment: Home Healthy Nurse during days. Son stays overnight for care. Other Information That Helps Us Care for You: No Feels Safe at Home: Yes Safety Concerns: Feels Safe At This Time Assistive Devices: Cane and Walker Review of Systems Review of Systems: Unobtainable due to cognitive status Physical Exam Constitutional: WD/WN, vitals as above Eyes: PERRL, conjunctivae normal, anicteric sclerae Neck: trachea midline, no thyromegaly Respiratory: normal respiratory effort, lungs clear to auscultation Cardiovascular: RRR, no murmur, no edema Gastrointestinal (Abdomen): normal bowel sounds, soft, nontender, no hepatosplenomegaly Neurologic: PERRL, EOMI, accommodation nl, no face palsy, no dysarthria pt confused per baseline Psychiatric: Orientation: alert, oriented to person and oriented to place Results & Data Vital Signs (Past 12 Hours) Vital Signs Temp Pulse Resp BP Pulse Ox O2 Del Method 06/02/25 08:11 70 16 95 Room Air 06/02/25 07:41 Room Air 06/02/25 07:28 36.5 C 61 16 121/75 95 Room Air 06/01/25 22:37 74 18 93 Room Air Laboratory Results Abnormal lab results 06/01/25 06/02/25 06/02/25 Range/Units 16:10 05:45 07:41 RBC 3.63 L 3.23 L (4.20-5.40) M/uL Hgb 11.6 L (12.0-16.0) g/dl Hct 34.7 L (37.0-47.0) % MCV 109.6 H 107.4 H (80.0-100.0) fL MCH 35.8 H 35.9 H (25.0-34.0) pg RDW Std Deviation 55.9 H 54.4 H (36.4-46.3) fL Rankin # (Auto) 0.95 H (0.11-0.59) K/uL Potassium 3.3 L (3.5-5.1) mmol/L Chloride 108 H (98-107) mmol/L BUN 31 H 26 H (6-23) mg/dl Creatinine 2.41 H 2.08 H D (0.6-1.2) mg/dl Glucose 118 H (70-99(Fasting)) mg/dl POC Glucose 103 H (70-99) mg/dl Hemoglobin A1c 6.1 H (4.5-5.6) % Calcium 11.3 H 10.4 H (8.6-10.3) mg/dl Alkaline Phosphatase 114 H (34-104) U/L Troponin I High Sens 16.3 H (0-14) pg/ml Diagnostic Findings Abdomen/Pelvis CT 06/01/25 16:33 EXAMINATION: CT of the abdomen and pelvis performed without contrast TECHNIQUE: Helical CT images from the lung bases through the symphysis pubis were obtained without contrast. Coronal and sagittal reformatted images were generated at a workstation for further assessment. Dose reduction techniques were achieved by using automatic exposure control and/or adjustment of mA and/or kV according to patient size and/or use of iterative reconstruction technique. COMPARISON: None HISTORY: Abdominal pain FINDINGS: Lower chest: No consolidation. No pleural effusion or pneumothorax. Liver: No suspicious liver lesions. Gallbladder: Cholecystectomy. Spleen: Normal size. Pancreas: No suspicious pancreatic lesions. The pancreatic duct is not dilated. Adrenal glands: No adrenal nodules. Kidneys: No hydronephrosis or obstructing renal stones. Scattered bilateral renal cysts. Bladder / Pelvic organs: Unremarkable. Bowel: No bowel obstruction. No abnormal bowel wall thickening. The appendix is unremarkable. Left colonic diverticulosis without diverticulitis. Lymph nodes: No retroperitoneal, mesenteric, or pelvic lymphadenopathy. Peritoneum / Retroperitoneum: No free fluid or air within the abdomen. Vessels: No infrarenal aortic aneurysm. Heavy aortoiliac calcification. Bones and soft tissues: No suspicious lesion in the bones. Degenerative changes of the spine. IMPRESSION: No acute finding in the abdomen or pelvis. Electronically signed by Lionel Boston 06-01-2025 5:38 PM Medications Administered Current Inpatient Medications Acetaminophen (Acetaminophen 325 Mg Tab) 325 mg PO Q6 PRN PRN Reason: Pain Stop: 07/01/25 21:01 Albuterol (Albuterol Hfa 8 Gm Inhaler) 2 puffs INH QIDR ALYSSA Stop: 07/01/25 21:01 Last Admin: 06/02/25 08:11 Dose: 2 puffs Allopurinol (Allopurinol 100 Mg Tab) 100 mg PO QAM REPLACED BY [facility] Stop: 07/02/25 08:59 Amlodipine Besylate (Amlodipine Besylate 5 Mg Tab) 2.5 mg PO [facility] Stop: 07/01/25 21:01 Last Admin: 06/01/25 22:17 Dose: 2.5 mg Apixaban (Apixaban 2.5 Mg Tab) 2.5 mg PO [facility] REPLACED BY [facility] Stop: 07/01/25 21:01 Last Admin: 06/01/25 22:17 Dose: 2.5 mg Atorvastatin Calcium (Atorvastatin 40 Mg Tab) 40 mg PO [facility] Stop: 07/01/25 21:01 Last Admin: 06/01/25 22:17 Dose: 40 mg Calcitriol (Calcitriol 0.25 Mcg Capsule) 0.5 mcg PO QAM REPLACED BY [facility] Stop: 07/02/25 08:59 Dextrose (Dextrose 50% 50 Ml Syringe) 25 - 50 ml IV UD PRN; Protocol PRN Reason: Hypoglycemia Protocol Stop: 07/01/25 21:01 Digoxin (Digoxin 0.125 Mg Tab) 0.125 mg PO MoWeFr REPLACED BY [facility] Stop: 07/02/25 15:59 Docusate Sodium (Docusate Sodium 100 Mg Cap) 100 mg PO [facility] [address] [address] Stop: 07/01/25 21:01 Last Admin: 06/01/25 22:17 Dose: 100 mg Escitalopram Oxalate (Escitalopram Oxalate 20 Mg Tab) [facility] Stop: 07/02/25 08:59 Famotidine (Famotidine 20 Mg Tab) 20 mg PO Q2D REPLACED BY [facility] Stop: 07/02/25 08:59 Glucagon (Glucagon For Inj 1 Mg Vial) 1 mg SQ UD PRN; Protocol PRN Reason: Hypoglycemia Protocol Stop: 07/01/25 21:01 Glucose (Glucose 40% Gel 15 Gm Tube) 15 - 30 gm PO UD PRN; Protocol PRN Reason: Hypoglycemia Protocol Stop: 07/01/25 21:01 Glucose (Glucose 10 Tab/Tube) 4 - 8 tab PO UD PRN; Protocol PRN Reason: Hypoglycemia Protocol Stop: 07/01/25 21:01 Insulin Aspart (Insulin Aspart Per Unit Charge) 0 units SC [facility] Stop: 07/01/25 21:01 Last Admin: 06/01/25 22:29 Dose: Not Given Isosorbide Mononitrate (Isosorbide Rankin Extended Rel 30 Mg Tabcr) 30 [facility] Stop: 07/02/25 08:59 Levothyroxine Sodium (Levothyroxine Sodium 88 Mcg Tablet) 88 mcg PO DAILYBB REPLACED BY [facility] Stop: 07/02/25 06:29 Last Admin: 06/02/25 05:18 Dose: 88 mcg Magnesium Hydroxide (Magnesium Hydroxide Susp 30 Ml Udc) 30 ml PO Q6H PRN PRN Reason: Constipation Stop: 07/01/25 21:01 Magnesium Oxide (Magnesium Oxide 400 Mg Tab) 400 mg PO QAM REPLACED BY [facility] Stop: 07/02/25 08:59 Melatonin (Melatonin 3 Mg Tab) 3 mg PO HS PRN PRN Reason: Insomnia Stop: 07/01/25 21:01 Last Admin: 06/01/25 22:17 Dose: 3 mg Memantine (Memantine Hcl 5 Mg Tab) 5 mg PO [facility] REPLACED BY [facility] Stop: 07/01/25 21:01 Last Admin: 06/01/25 22:17 Dose: 5 mg Metoprolol Succinate (Metoprolol Succ 25mg Ext Rel Tab) 25 mg PO [facility] RE[facility] Stop: 07/01/25 21:01 Last Admin: 06/01/25 22:16 Dose: 25 mg Miscellaneous ((Brexpiprazole [Rexulti] 1 Mg Tablet) Order Awaiting Action) 1 each N/A QS REPLACED BY [facility] Stop: 07/01/25 21:14 Last Admin: 06/02/25 08:53 Dose: Not Given Miscellaneous (Carbohydrates For Hypoglycemia ) 15 - 30 gm PO UD PRN PRN Reason: Hypoglycemia Protocol Stop: 07/01/25 21:01 Ondansetron HCl (Ondansetron 4 Mg Od Tab) 4 mg PO Q8 PRN PRN Reason: NAUSEA OR VOMITING Stop: 07/01/25 21:01 Polyethylene Glycol (Polyethylene (Miralax) 17 Gm Pack) 17 gm PO DAILY PRN PRN Reason: Constipation Stop: 07/01/25 21:01 Tramadol HCl (Tramadol Hcl 50 Mg Tablet) 50 mg PO Q8 PRN PRN Reason: Severe Pain (Scale 7, 8, 9,10) Stop: 07/01/25 21:01 PG Care Time/CCT Total # of Minutes Spent Total Time Spent with Patient: Total time spent is greater than 50% in coordination of care (as documented) at patient's floor/unit and/or counseling patient: [place] [address] IN/OBS CONSULT LVL 4,60M Patient Type New History Expanded Problem Focused Exam Expanded Problem Focused Medical Decision Making Moderate Complexity Diagnoses Palliative care by specialist Z51.5 Counseling regarding goals of care Z71.89 Encounter for assessment of decision-making capacity Z00.8
[2025-06-02] MEDS ORDERED: NON-FORMULARY MEDICATION (Iron,Carbonyl-Vitamin C [Vitron-C] 65 mg iron- 125 mg Tablet,Del PO SCH (09:00)
[2025-06-02] MEDS: POTASSIUM CHLORIDE CRTAB 20 MEQ TABCR PO STA (11:01)
--- NOTE | 2025-06-02 15:44 | Hospitalist Progress Note ---
Date of Service June 02, 2025 Assessment & Plan (1) Alteration in appetite: (2) Generalized weakness: Plan Ms. Gabriel is a 79-year-old female with a past medical history of nonischemic cardiomyopathy, EF <25%, moderate MR, tachybradycardia syndrome s/p pacemaker, paroxysmal atrial fibrillation on Eliquis, CKD IV, prediabetes, HLD, anxiety, history of CVA, dementia, GERD, Generalized anxiety disorder, prior amiodarone toxicity, dementia admitted to med/surg for JUNIOR on CKD. #Poor po intake #Generalized weakness suspect 2/2 progression of dementia given reports of reduce drive for food/drink UA normal flu/covid negative no leukocytosis or infectious symptoms s/p 500cc bolus at ED encourage po intake hold on fluids, hold lasix Palliative consult, plan for meeting cynthia. #JUNIOR on CKD stage IV: baseline cr around 1.9 -2.0, admitting 2.41, s/p 500ml ivf in ED, now Cr downtrending. hold lasix, hold futher ivf given poor EF, encourage PO intake. Admitting CTAP w/ no hydronephrosis. 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 delirium precautions, reorientation as able fall precautions Continue lexapro #TBS s/p ppm #Nonischemic cardiomyopathy, HFrEF 25-50% #AF s/p ablation Continue digoxin MWF continue metoprolol 25 bid continue imdur 30mg daily continue elquis 2.5mg bid continue statin hold lasix at this time iso poor po intake #DMTII hold Januvia SSI while admitted A1C in am #Mild elevation of troponin Has some Chronic elevation, lower than baseline, no acs concerns #GERD:On famotidine #Hypothyroidism:On Synthyroid #Hyperlipidemia:On statin #History of gout:On allopurinol DVT prophylaxis:On Eliquis Disposition:Medical floor, await further palliative discussion cynthia. CODE STATUS DNR DNI Admission and Anticipated Discharge Date Admission Date: June 01, 2025 Subjective Patient was seen and examined at bedside. Patient was lying in bed, on room air, NAD, resting comfortably. Patient reports feeling better, denies any pain, denies any complaints. Physical Exam Physical Exam: GENERAL APPEARANCE: AxOx3, generally well-appearing elderly woman pleasant and conversational, no acute distress. HEENT: NC, AT. MMM. EOMI, clear conjunctiva, oropharynx clear. NECK: Supple without lymphadenopathy. No stiffness or restricted ROM. HEART: Normal rate and regular rhythm, normal S1/S1, no m/r/g LUNGS: CTAB, moving air well. No crackles or wheezes are heard. ABDOMEN: Soft, nontender, nondistended with good bowel sounds heard. BACK: No CVAT, no obvious deformity. EXTREMITIES: Without cyanosis, clubbing or edema. NEUROLOGICAL: Grossly nonfocal. Alert and oriented, moving all 4 extremities. CN not formally tested but appear grossly intact. Skin: Warm and dry without any rash. Results & Data Results & Data Vital Signs (Past 12 Hours) Vital Signs Temp Pulse Resp BP Pulse Ox O2 Del Method FiO2 06/02/25 15:25 61 15 97 Room Air 21 06/02/25 11:23 72 16 95 Room Air 06/02/25 08:11 70 16 95 Room Air 06/02/25 07:41 Room Air 06/02/25 07:28 36.5 C 61 16 121/75 95 Room Air
[2025-06-02] MEDS: DIGOXIN 0.125 MG TAB PO SCH (16:44)
[2025-06-02 20:08] VITALS: RESP 16
[2025-06-03 06:50] LABS: Hematocrit (blood only) 35.2 % (37.0-47.0); Hemoglobin 11.8 g/dl (12.0-16.0); Mean Corpuscular Hemoglobin 36.4 pg (25.0-34.0); Mean Corpuscular Volume 108.6 fL (80.0-100.0); Platelet Count 192 K/uL (130-400); RDW Standard Deviation 53.2 fL (36.4-46.3); Red Blood Count 3.24 M/uL (4.20-5.40); White Blood Count 10.60 K/ul (4.8-10.8)
[2025-06-03 07:03] LABS: Anion Gap 10.0 (3-11); Blood Urea Nitrogen 30.0 mg/dl (6-23); Calcium 10.5 mg/dl (8.6-10.3); Carbon Dioxide 26.0 mmol/L (21-32); Chloride 107.0 mmol/L (98-107); Creatinine Clr Calc Pharmacy 14.7 ml/min; Glucose 147.0 mg/dl (70-99(Fasting)); Potassium 3.7 mmol/L (3.5-5.1); Sodium 143.0 mmol/L (136-145)
[2025-06-03 07:06] VITALS: BP 114/70; TEMP 97.9
[2025-06-03 10:20] VITALS: PULSE 68; O2SAT 98
--- NOTE | 2025-06-03 10:55 | Palliative Family Discussion ---
Date of Service June 03, 2025 Patient Directed Conference Time of Meetinam-12pm Participants: Christie Rollins DNP Patient participation: yes, as much as she was able Patient Support System: son x1, sisters x2, grandkids x4 Other: care t Meeting Location: bedside face to face The patient's surrogate medical decision maker participated: son is Adam A face to face ACP family meeting was held for TATUM NOEL. This meeting was necessary for determining the appropriate course of treatment. Topics of Discussion Topics of Discussion: 1. 79-year-old female with a past medical history of nonischemic cardiomyopathy, EF <25%, moderate MR, tachybradycardia syndrome s/p pacemaker, paroxysmal atrial fibrillation on Eliquis, CKD IV, prediabetes, HLD, anxiety, history of CVA, dementia, GERD, Generalized anxiety disorder, prior amiodarone toxicity, dementia admitted to med/surg for JUNIOR on CKD. 2. I met with Harvey family (sisters x2, grand kids x4, son x1) along with care t. She has private aides with [facility] and [facility] home [facility]. grand daughter works for [employer] and asked about hopisce options. I provided education about the hospice benefit: an interdisciplinary program offered by nurses, nurses aides, social workers, chaplains and a medical transport specialist for patients with a terminal condition and a life expectancy of less than 6 months. This is covered by Medicare at 100%/no out of pocket expense to patient and all meds/supplies needed by patient for the reason they are on hospice are paid for/covered by hospice. The goal is assure quality of life of the patient in their home setting (home, [place] [facility], inpatient hospice setting) by providing symptoms management, psychosocial and spiritual support. However, they cannot offer 24 hours care and if the family is unable to provide that care, they will have to consider personal care with out of pocket cost vs. [place] [facility] placement. We discussed the goals of hospice as a patient service and the goals of care; we discussed EOL trajectories and transitions elizabeth the emotional impact of realizing mortality as a concrete reality from prior abstract considerations. Discussed the pros/cons of accepting help when myriam cially weakened and distressed by pain-which would also help provide relief/decrease caregiver burden/strain. We agreed to home hospice dc with [facility]. 3. Additional guidance given to help improve hydration via Jelly drops. Signif amount of time was spent explaining dementia progression in landscape of heart and kidney failure, what to expect and what is normal for where she is at medically. They asked re prognosis and I said months but maybe shorter if cardiorenal issues worsen more acutely. Patient very emphatic re:wanting to be home and with family. This was a very loving/devoted family group; her son was emotional but overall expressed having a better understanding. 4. Described what to expect and advised she will dwindle and it is normal but hard to watch and that ultimately keeping her where she wants to be is best bc shuttling her around in response to our anxiety only adds to her distress. the one grand daughter works for [employer], and plans to come every weekend to help support. sisters x2 are available and 3 other grandchildren and son also willing but son is uncomfortable handling anything related to personal hygiene/bathing. Other Content of Meetin. Opportunity given for participants to speak and ask questions. 2. Participants were assured of attention to patient comfort. 3. Reassurance provided. 4. Support was provided for informed, good-violette decisions. 5. Emotions expressed by family were acknowledged and addressed. 6. Dc home with [facility] TS 60min Thank you for allowing us to participate in the ongoing care of this patient. Please page with any additional concerns. Mayra Rollins DNP Director, Palliative Medicine
--- NOTE | 2025-06-03 12:13 | Discharge Summary ---
Date of Service June 03, 2025 Admission HPI Per Admitting Provider Ms. Gabriel is a 79-year-old female with a past medical history of nonischemic cardiomyopathy, EF <25%, moderate MR, tachybradycardia syndrome s/p pacemaker, paroxysmal atrial fibrillation on Eliquis, CKD IV, prediabetes, HLD, anxiety, history of CVA, dementia, GERD, Generalized anxiety disorder, prior amiodarone toxicity who presented to [facility] ED due to poor appetite and weakness. Patient states she just hasn't wanted or remembered to eat or drink. She lives with her son who has caregiver support during the day and he is there at night. Her two sisters were present at time of exam. There were no reports of nausea, vomiting, chest pain, palpitations, abdominal pain, or other acute concerns. Patient states sometimes she "just doesn't want it." Home Nurse Celeste has talked to family about hospice and trying to get a hospice nurse for home, but the sisters thought hospice meant "they just come and check vitals more often." Explained hospice being more support to allow patient to stay home and treat her symptoms--explained that as dementia progresses drive to eat and drink diminishes, and goals become more based around comfort. Patient denies urinary or bowel symptoms. Sisters agree this is in line with patient wishes, but son is caregiver and decision maker and he "panics" when the patient doesn't eat or drink, often sending her to the hospital. Family and patient open to palliative discussion to help understand the progression of dementia and applicability of hospice Patient denies tobacco etoh or illicit use Patient engages in conversation but notable very short term memory issues, difficulty with some questions In the ED, vitals were notable for BP of 110s-130s HR of 60s, and O2 sat of 96 on room air, afebrile Imaging revealed no acute abnormalities on CT imaging Labs with JUNIOR EKG AV paced, qtc 416 ED interventions: 500 cc bolus zofran Patient to be admitted to [facility] [place] for further evaluation and management of dehydration Admission Exam Per Admitting Provider GENERAL APPEARANCE: AxOx2, generally well-appearing elderly woman pleasant and conversational, no acute distress. HEENT: NC, AT. MMM. EOMI, clear conjunctiva, oropharynx clear. NECK: Supple without lymphadenopathy. No stiffness or restricted ROM. HEART: Normal rate and regular rhythm, normal S1/S1, no m/r/g LUNGS: CTAB, moving air well. No crackles or wheezes are heard. ABDOMEN: Soft, nontender, nondistended with good bowel sounds heard. BACK: No CVAT, no obvious deformity. EXTREMITIES: Without cyanosis, clubbing or edema. NEUROLOGICAL: Grossly nonfocal. Alert and oriented, moving all 4 extremities. CN not formally tested but appear grossly intact. Skin: Warm and dry without any rash. 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 HEENT: NC, AT. MMM. EOMI, clear conjunctiva, oropharynx clear. NECK: Supple without lymphadenopathy. No stiffness or restricted ROM. HEART: Normal rate and regular rhythm, normal S1/S1, no m/r/g LUNGS: CTAB, moving air well. No crackles or wheezes are heard. ABDOMEN: Soft, nontender, nondistended with good bowel sounds heard. BACK: No CVAT, no obvious deformity. EXTREMITIES: Without cyanosis, clubbing or edema. NEUROLOGICAL: Grossly nonfocal. Alert and oriented, moving all 4 extremities. CN not formally tested but appear grossly intact. Skin: Warm and dry without any rash. Discharge Data Allergies Allergy/AdvReac Type Severity Reaction Status Date / Time codeine Allergy Intermediate PSCHO Verified 06/01/25 19:33 COMPLICATIONS PER [facility] Consultations 06/01/25 18:19 ED Decision to Admit Stat 06/01/25 19:40 Consult Palliative Care Routine Ordered Studies 06/01/25 16:33 CT abd pelvis wo con Stat Hospital Course (1) Alteration in appetite: (2) Generalized weakness: Plan Ms. Gabriel is a 79-year-old female with a past medical history of nonischemic cardiomyopathy, EF <25%, moderate MR, tachybradycardia syndrome s/p pacemaker, paroxysmal atrial fibrillation on Eliquis, CKD IV, prediabetes, HLD, anxiety, history of CVA, dementia, GERD, Generalized anxiety disorder, prior amiodarone toxicity, dementia admitted to med/surg for JUNIOR on CKD. #Poor po intake #Generalized weakness suspect 2/2 progression of dementia given reports of reduce drive for food/drink UA normal flu/covid negative no leukocytosis or infectious symptoms s/p 500cc bolus at ED encourage po intake hold on fluids, hold lasix Palliative consult, d/w cm plan for home w/ hospice. #JUNIOR on CKD stage IV: baseline cr around 1.9 -2.0, admitting 2.41, s/p 500ml ivf in ED, Cr downtrended but up today again, pt apparently drinking better, will hold lasix and hold ivf given poor heart function. encourage PO intake. Admitting CTAP w/ no hydronephrosis. 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 delirium precautions, reorientation as able fall precautions Continue lexapro #TBS s/p ppm #Nonischemic cardiomyopathy, HFrEF 25-50% #AF s/p ablation Continue digoxin MWF continue metoprolol 25 bid continue imdur 30mg daily continue elquis 2.5mg bid continue statin hold lasix at this time iso poor po intake #DMTII hold Januvia SSI while admitted A1C in am #Mild elevation of troponin Has some Chronic elevation, lower than baseline, no acs concerns #GERD:On famotidine #Hypothyroidism:On Synthyroid #Hyperlipidemia:On statin #History of gout:On allopurinol DVT prophylaxis:On Eliquis Disposition: Pall evaled, pt being dc'd to home w/ hospice. CODE STATUS DNR DNI Home Health Attestation I certify that this patient is under my care and that I, or a physicians assurance assistant working with me, had a face to-face encounter that meets the home health oura-ah-wsfe encounter requirements with this patient. The encounter with the patient was in whole, or in part, for the following medical condition, which is the primary reason for home health care (list medical condition): I certify that, based on my findings, the following services are medically necessary home health services: My clinical findings support the need for the above services because: Home Safety Assessment Hydration / Nutrition OT Assess ADL Status and Restore Function w ADLs PT Assessment for Endurance / Balance / Strength PT Eval for Safety and Mobility PT Eval for Safety, Gait Training, Assistive Devices PT Gait and Balance Training, Strengthening and Safety Safety Skilled Nsg Assessment Further, I certify that my clinical findings support that this patient is homebound (i.e. absences from home require considerable and taxing effort and are for medical reasons or jew services or infrequently or of short duration when for other reasons) because: Supportive Aid - Walker Transportation Assistance/Unable to Leave Home Unassisted Certification for Home Health Services: Based on the above findings, I certify that this patient is confined to the home and needs intermittent prison care, physical therapy and/or speech therapy or continues to need occupational therapy. The patient is under my care, and I have initiated the establishment of the plan of care. This patient will be followed by a physician who will periodically review the plan of care. 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 Once discharged, Hospice providers will take over control of your medications. Pending Studies at Discharge: No Stand-Alone Forms: My [facility] Medications and DC Order Prescriptions: Continued atorvastatin [Lipitor] 40 mg Tablet 40 mg PO HS allopurinol 100 mg Tablet 100 mg PO QAM levothyroxine 88 mcg Tablet 88 mcg PO QAM calcitriol 0.5 mcg Capsule 0.5 mcg PO QAM escitalopram oxalate [Lexapro] 20 mg Tablet 20 mg PO QAM memantine 5 mg Tablet 5 mg PO AMHS Eliquis 2.5 mg Tablet 2.5 mg PO AMHS Vitron-C 65 mg iron- 125 mg Tablet,Delayed Release (Dr/Ec) 1 tab PO QAM Rexulti 1 mg tablet 1 mg PO HS magnesium oxide 400 mg magnesium Tablet 400 mg PO QAM docusate sodium 100 mg capsule 100 mg PO AMHS albuterol sulfate [Ventolin HFA] 90 mcg/actuation HFA aerosol inhaler 2 puff INHALATION QID famotidine 20 mg tablet 20 mg PO Q OTHER DAY metoprolol succinate 25 mg tablet extended release 24 hr 25 mg PO AMHS isosorbide mononitrate 30 mg tablet extended release 24 hr 30 mg PO QAM Januvia 25 mg tablet 25 mg PO QAM acetaminophen 325 mg Tablet 325 mg PO Q6 PRN (Reason: as directed) amlodipine 2.5 mg tablet 2.5 mg PO HS nitroglycerin 0.4 mg tablet, sublingual 0.4 mg sublingual UD PRN (Reason: Chest Pain) Rx Instructions: 1 tab under tongue every 5 minutes as needed for pain,chest digoxin 125 mcg (0.125 mg) tablet 125 mcg PO [id number] Rx Instructions: take daily on MONDAY,MONDAY,MONDAY tramadol 50 mg tablet 50 mg PO Q8 PRN (Reason: PAIN,MODERATE) ondansetron 4 mg tablet,disintegrating 4 mg translingual Q8 PRN (Reason: NAUSEA OR VOMITING) Held furosemide 20 mg Tablet 20 mg PO QAM Hold Instructions: Resume on 06/09/25. Discharge Orders: Discharge Order (Routine); Ordered 06/03/25 Ordered By: Zach Allison/Other Patient Handouts: Managing Type 2 Diabetes Admission Data Admit Date/Time: 06/01/25 19:40 Attending Provider: Zach Snyder Admit Provider: Mary Cota Primary Care Provider: Kasandra Antunez Other Providers: Kassie Parker; Christie Rollins; Mary Cota
== END 2025-06-03 14:28 | disposition hospice, home (50) ==
LOC: 3E 15:53 → ED 15:53 → SUATTDRO 19:40 → 3E 20:39